=== PATIENT | male | born 1950 | race Native Hawaiian/Other Pacific Islander ===

== ENCOUNTER 2016-10-09 11:26 | Emergency (ER) | payer OTHER, MEDICARE, MEDICAID ==
[2016-10-09 11:27] VITALS: BMI 32.9
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
[2016-10-09] MEDS ORDERED: Albuterol-Ipratrop 3 mg / 0.5 (3 ml) UD IH STA ×2 (13:53→17:23)
[2016-10-09] MEDS ORDERED: Morphine 4 MG/ML VIAL ONE (14:04)
[2016-10-09] MEDS ORDERED: Albuterol-Ipratrop 3 mg / 0.5 (3 ml) UD ONE (14:07)
[2016-10-09] MEDS ORDERED: Ipratropium 0.02% Inhal Soln (0.5 mg/2.5 ml) UD IH ONE (14:08)
[2016-10-09] MEDS ORDERED: Albuterol 0.083% Inhal Sol (2.5 mg/3 mL) UD ONE (14:08)
[2016-10-09 14:24] LABS: BASO # 0.1 K/uL (0.0-0.2); BASO % 1.4 % (0.0-2.0); EOS # 2.4 K/uL (0.0-0.7); EOS % 23.3 % (0.0-4.0); HEMATOCRIT 32.1 % (35.0-51.0); LYMPH # 1.1 K/uL (1.0-4.3); LYMPH % 10.6 % (20.0-40.0); MEAN CELL VOLUME 96.5 fL (80.0-94.0); MEAN CORPUSCULAR HEMOGLOBIN 31.2 pg (27.0-31.0); MEAN CORPUSCULAR HGB CONC 32.4 g/dL (33.0-37.0); MEAN PLATELET VOLUME 8.7 fL (7.2-11.7); MONO # 0.6 K/uL (0.0-0.8); MONO % 5.4 % (0.0-10.0); PLATELET COUNT 139 K/uL (130-400); RED CELL DISTRIBUTION WIDTH 15.1 % (11.5-14.5); WHITE BLOOD COUNT 10.4 K/uL (4.8-10.8)
--- NOTE | 2016-10-09 14:26 | RAD ---
PROCEDURE: CHEST RADIOGRAPH, 1 VIEW HISTORY: SOB COMPARISON: 09/27/2016 FINDINGS: LUNGS: Mild interstitial changes. PLEURA: No pneumothorax or pleural fluid seen. CARDIOVASCULAR: Normal. OSSEOUS STRUCTURES: No significant abnormalities. VISUALIZED UPPER ABDOMEN: Normal. OTHER FINDINGS: None. IMPRESSION: Mild interstitial changes.
[2016-10-09 14:34] LABS: POTASSIUM 4.3 mmol/L (3.6-5.2)
[2016-10-09 14:36] LABS: ALB/GLOB RATIO 1.1 (1.0-2.1); BILIRUBIN,TOTAL 0.7 mg/dL (0.2-1.3)
[2016-10-09 14:48] LABS: TROPONIN I 0.023 ng/mL (0.00-0.120)
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
--- NOTE | 2016-10-09 15:06 | CT ---
PROCEDURE: CT Lumbar Spine without contrast HISTORY: [facility] COMPARISON: None. TECHNIQUE: Axial computed tomography images were obtained of the lumbar spine without the use of intravenous contrast. Coronal and sagittal reformatted images were created and reviewed. Radiation dose: Total exam DLP = 1788.65 mGy-cm. FINDINGS: VERTEBRAE: The current study reveals no acute compression fractures no retropulsed fragments. Vertebral bodies exhibit normal stature and alignment. Facets normally aligned. DISCS/SPINAL CANAL/NEURAL FORAMINA: Multilevel degenerative spondylosis is present. At the L5-S1 level, there is disc space narrowing more so along the posterior disc margin. Small osteophytic ridge disc bulge complex results in mild compression of the ventral surface of the thecal sac. The overall central canal is marginal to adequate. Facets are hypertrophic at this level. Proximal exit foramina are mildly narrowed the right more so than left. At the L4-L5 level, there is mild posterior disc space narrowing. Small central and bilateral disc ridge complex associate with a tiny calcification of the either the posterior annulus or posterior longitudinal ligament. Facets are hypertrophic and flavum are buckled. Mild central canal narrowing. The facets also compress the posterolateral borders of the thecal sac. The exit foramina are mildly narrowed bilaterally. At the L3-L4 level, mild posterior disc space narrowing. Minimal broad-based bulge of the posterior annulus. Facets are mildly hypertrophic. Central canal appears adequate. Exit foramina are adequate. Similar changes seen at the L2-L3 and L1-L2 levels. PARASPINAL SOFT TISSUES: Paraspinal soft tissues appear grossly unremarkable. OTHER FINDINGS: Note made of markedly distended urinary bladder with mild wall thickening likely due to muscular hypertrophy. Prostate gland measures approximately 4.1 cm in transverse dimension. Rule out bladder outlet obstruction. Extensive at vascular calcifications are noted. IMPRESSION: No acute compression fractures. Mild multilevel degenerative spondylosis as described. Marked distention of the urinary bladder; rule out bladder outlet obstruction. Extensive vascular calcifications.
[2016-10-09 15:23] LABS: EOSINOPHIL 21 % (0-4); NEUTROPHIL 67 % (50-75); TOTAL CELLS COUNTED 100
[2016-10-09] MEDS ORDERED: Lidocaine 5% Patch TD STA (15:32)
[2016-10-09 15:55] VITALS: RESP 18
[2016-10-09] MEDS ORDERED: Lidocaine 5% Patch TD ONE (16:32)
[2016-10-09 18:19] VITALS: PULSE 86; O2SAT 98
[2016-10-09 20:31] VITALS: BP 152/72; TEMP 98
== END 2016-10-09 20:31 ==
LOC: C.ER 11:26
DX: S16.1XXA Strain of muscle, fascia and tendon at neck level, initial encounter (principal); S33.5XXA Sprain of ligaments of lumbar spine, initial encounter; V89.2XXA Person injured in unspecified motor-vehicle accident, traffic, initial encounter; M79.632 Pain in left forearm; N18.6 End stage renal disease; Z99.2 Dependence on renal dialysis
CPT/HCPCS: 71010; 72125; 72131; 80053; 82553; 83880; 84484; 85025; 85610; 85730; 94640; 96374; 96375; 99285; J1885; J2270

== ENCOUNTER 2016-11-13 12:40 | Emergency (ER) | payer MEDICARE, MEDICAID ==
[2016-11-13 12:40] VITALS: BMI 32.9
[2016-11-13 14:30] LABS: BASO # 0.1 K/uL (0.0-0.2); EOS % 33.8 % (0.0-4.0); HEMATOCRIT 31.6 % (35.0-51.0); LYMPH # 0.9 K/uL (1.0-4.3); LYMPH % 10.5 % (20.0-40.0); MEAN CORPUSCULAR HEMOGLOBIN 31.3 pg (27.0-31.0); MEAN CORPUSCULAR HGB CONC 31.8 g/dL (33.0-37.0); MEAN PLATELET VOLUME 9.9 fL (7.2-11.7); MONO # 0.4 K/uL (0.0-0.8); MONO % 5.1 % (0.0-10.0); RED CELL DISTRIBUTION WIDTH 14.4 % (11.5-14.5); WHITE BLOOD COUNT 8.8 K/uL (4.8-10.8)
[2016-11-13] MEDS ORDERED: Hydrocortisone 1% Cream (30 GM) TOP STA (14:33)
[2016-11-13 14:37] LABS: POTASSIUM 4.9 mmol/L (3.6-5.2)
[2016-11-13 14:39] LABS: MEAN CELL VOLUME 98.5 fL (80.0-94.0); PLATELET COUNT 79 K/uL (130-400)
[2016-11-13 14:40] LABS: ALB/GLOB RATIO 1.2 (1.0-2.1); BILIRUBIN,TOTAL 0.7 mg/dL (0.2-1.3); TOTAL PROTEIN 7.1 g/dL (6.3-8.3)
[2016-11-13 14:41] LABS: CALCIUM 8.7 mg/dl (8.6-10.4)
[2016-11-13 14:53] LABS: TROPONIN I 0.022 ng/mL (0.00-0.120)
--- NOTE | 2016-11-13 15:52 | RAD ---
HISTORY: AMS? COMPARISON: 10/09/2016 FINDINGS: LUNGS: Hazy opacity in the lung bases. Increased pulmonary vascular congestion. PLEURA: Possible small left-sided pleural effusion. CARDIOVASCULAR: Enlarged heart. OSSEOUS STRUCTURES: The osseous structures demonstrate degenerative changes. VISUALIZED UPPER ABDOMEN: Upper abdomen is suboptimally evaluated. OTHER FINDINGS: Presumed vascular stent in the left axilla. Midline sternotomy wires and surgical clips along the left heart border noted. IMPRESSION: Increased pulmonary vascular congestion. Possible left-sided pleural effusion. Enlarged heart.
--- NOTE | 2016-11-13 16:38 | C.PDOC ---
History Of Present Illness Pt was sent to the ED due to "altered mental status". Pt states that he was c/o itchy back and states they gave him Benadryl which made him sleepy. Pt states he was sleeping when they said that they wanted to send him here. Time Seen by Provider: 11/13/16 13:45 Chief Complaint (Nursing): Altered Mental Status History Per: Patient, EMS, Other (NH papers) Onset/Duration Of Symptoms: Hrs Current Symptoms Are (Timing): Better Severity: Moderate Additional History Per: Prior Records Past Medical History Reviewed: Historical Data, Nursing Documentation, Vital Signs Vital Signs: Last Vital Signs Temp 97.7 F 11/13/16 13:07 Pulse 74 11/13/16 13:07 Resp 18 11/13/16 13:07 BP 174/75 H 11/13/16 13:07 Pulse Ox 98 11/13/16 16:45 - Medical History PMH: Anemia, Asthma, CVA (affecting left side), Depression ('MAJOR DEPRESSIVE DISORDER,SINGLE EPISODE,UNSPECIFIED"), HTN, Peripheral Edema, End Stage Renal Disease (on hemodialysis), Chronic Kidney Disease, Sleep Apnea Surgical History: CABG, Endoscopy - [facility] Procedures DIALYSIS ARTERIOVENOSTOM (10/07/14) EXCISION OF SIGMOID COLON, ENDO, DIAGN (09/26/16) INCIS W REM OF FORIEGN BODY OR DEV FROM SKIN & SUBCUT TISSUE (12/23/14) Family History: States: Unknown Family Hx - Social History Hx Alcohol Use: No Hx Substance Use: No - Immunization History Hx Influenza Vaccination: No Hx Pneumococcal Vaccination: Yes Review Of Systems Except As Marked, All Systems Reviewed And Found Negative. Constitutional: Negative for: Fever Cardiovascular: Negative for: Chest Pain Respiratory: Negative for: Shortness of Breath Gastrointestinal: Negative for: Vomiting, Abdominal Pain Musculoskeletal: Positive for: Back Pain. Negative for: Neck Pain Neurological: Negative for: Weakness, Numbness Physical Exam - Physical Exam Appears: No Acute Distress, Chronically Ill Skin: Normal Color, Warm, Dry Head: Atraumatic, Normacephalic Eye(s): bilateral: PERRL, EOMI Neck: Normal ROM, Supple Cardiovascular: Rhythm Regular Respiratory: Normal Breath Sounds, No Accessory Muscle Use Gastrointestinal/Abdominal: Soft, No Tenderness Back: Other (Stage 1 sacral decubitus ulcer. ) Extremity: Pedal Edema, Other (dialysis fistula on left arm with good thrill) Neurological/Psych: Oriented x3, No Normal Motor (left sided weakness due to old CVA) ED Course And Treatment - Laboratory Results Result Diagrams: 11/13/16 14:24 11/13/16 14:24 Lab Interpretation: No Changes Compared To Prior Results ECG: Interpreted By Me, Viewed By Me ECG Rhythm: Sinus Rhythm, R BBB, Nonspecific Changes ECG Interpretation: No Changes From Prior Rate From EC O2 Sat by Pulse Oximetry: 98 (on 2L NC) Pulse Ox Interpretation: Normal Interpretation Of Abnormal: Pt is on [place] O2 at [place] - Radiology CXR: Viewed By Me, Read By Radiologist CXR Interpretation: Yes: Cardiomegaly Progress Note: Pt states that his right upper back is itchy. No rash noted there. I scratched his back and applied hydrocortizone cream with relief. Pt was also turned with relief of back pain which is due to the sacral decub. Reassessment Condition: Improved Disposition Discussed With Dr.: Theodore Lucas Comment: He wants pt to be discharged back to the longterm. Counseled Patient/Family Regarding: Studies Performed, Diagnosis, Need For Followup, Rx Given - Disposition Referrals: Theodore Lucas MD [Staff Provider] - Disposition: TRANSF TO SNF Disposition Time: 16:42 Condition: IMPROVED Additional Instructions: Follow up with your doctor. Go to dialysis tomorrow as usual. Return to the ER if you develop worsening of symptoms or if you have any other concerns. Prescriptions: Hydrocortisone 1% Cream [Cortizone 1% Cream] 1 applic TOP BID PRN #1 tube PRN Reason: Itching / Pruritus Instructions: Itchy Skin (ED), Pressure Ulcer (ED) - POA Present On Arrival: Pressure Ulcer - Clinical Impression Clinical Impression: Itch of skin, Decubitus ulcer of sacral region, stage 1
[2016-11-13 17:16] VITALS: O2SAT 100
[2016-11-13 19:33] VITALS: BP 163/48; PULSE 88; RESP 20; TEMP 97.7
[2016-11-13 20:09] LABS: EOSINOPHIL 42 % (0-4); NEUTROPHIL 36 % (50-75); TOTAL CELLS COUNTED 100
[2016-11-13 20:10] LABS: LARGE PLATELETS PRESENT; SMUDGE CELLS PRESENT
--- NOTE | 2016-11-16 18:37 | CARD ---
APPROVED REPORT EKG Measurement Heart [id number] SC [id number] <Conclusion> Normal sinus rhythm Left axis deviation Right bundle branch block Inferior infarct, age undetermined Abnormal ECG
== END 2016-11-13 19:32 ==
LOC: C.ER 12:40
DX: L89.151 Pressure ulcer of sacral region, stage 1 (principal); L29.9 Pruritus, unspecified; I12.0 Hypertensive chronic kidney disease with stage 5 chronic kidney disease or end stage renal disease; N18.6 End stage renal disease; Z99.2 Dependence on renal dialysis

== ENCOUNTER 2016-11-15 17:15 | Emergency (ER) | payer MEDICARE, MEDICAID ==
[2016-11-15 17:15] VITALS: BMI 32.9
[2016-11-15 17:31] VITALS: TEMP 97.6
--- NOTE | 2016-11-15 18:03 | C.PDOC ---
History Of Present Illness 66-year-old male, PMHx includes CVA (w/ L residual weakness), Hypertension, Hypercholesterolemia and ESRD (on Dialysis MWF), presents to the emergency department from halfway, accompanied by , who is acting as historian, with complaints of headache. Patient has been experiencing a severe headache since yesterday. He gets headaches at [place], that are treated with Tramadol, but patients headache is now localized, to frontal area w/ no associated symptoms. No fever or neck pain. Patient with muscular pain in shoulder, and pain in suprapubic region that radiates to back. Patients last dialysis yesterday, which was completed without complications. Upon arrival to the ED, patient had a bladder scan, that revealed 600mL of urine. All other Hx limited because patient is a poor historian. Time Seen by Provider: 11/15/16 17:40 Chief Complaint (Nursing): Headache History Per: Family History/Exam Limitations: clinical condition Onset/Duration Of Symptoms: Days Current Symptoms Are (Timing): Still Present Severity: Severe Past Medical History Reviewed: Historical Data, Nursing Documentation, Vital Signs Vital Signs: Last Vital Signs Temp 97.6 F 11/15/16 17:30 Pulse 72 11/15/16 19:52 Resp 15 11/15/16 19:52 BP 160/50 H 11/15/16 19:52 Pulse Ox 97 11/15/16 20:32 - Medical History PMH: Anemia, Asthma, CVA (affecting left side), Depression ('MAJOR DEPRESSIVE DISORDER,SINGLE EPISODE,UNSPECIFIED"), HTN, Peripheral Edema, End Stage Renal Disease (on hemodialysis), Chronic Kidney Disease, Sleep Apnea Surgical History: CABG, Endoscopy - [facility] Procedures DIALYSIS ARTERIOVENOSTOM (10/07/14) EXCISION OF SIGMOID COLON, ENDO, DIAGN (09/26/16) INCIS W REM OF FORIEGN BODY OR DEV FROM SKIN & SUBCUT TISSUE (12/23/14) Family History: States: Unknown Family Hx - Social History Hx Alcohol Use: No Hx Substance Use: No - Immunization History Hx Influenza Vaccination: No Hx Pneumococcal Vaccination: Yes Review Of Systems Cardiovascular: Negative for: Chest Pain Respiratory: Negative for: Cough Gastrointestinal: Negative for: Vomiting Musculoskeletal: Positive for: Back Pain Skin: Negative for: Rash Neurological: Positive for: Headache. Negative for: Weakness, Numbness Physical Exam - Physical Exam Appears: Non-toxic, No Acute Distress, Other (non ambulatory at baseline) Skin: Warm, Dry, No Rash Head: Atraumatic, Normacephalic Eye(s): bilateral: Normal Inspection, PERRL Nose: Normal Oral Mucosa: Moist Chest: Symmetrical Cardiovascular: Rhythm Regular Respiratory: Normal Breath Sounds, No Accessory Muscle Use Gastrointestinal/Abdominal: Tenderness (midline), Distention (mild. ) Extremity: Normal ROM Neurological/Psych: Oriented x3, Normal Speech, Other (residual left sided weakness from prior CVA) ED Course And Treatment - Laboratory Results Result Diagrams: 11/15/16 18:24 11/15/16 18:24 Lab Interpretation: No Acute Changes (Anemia and increased BUN and Cr consistent with renal failure. Urine shows WBC 7 with 1+ leukocyte esterase.) O2 Sat by Pulse Oximetry: 97 Pulse Ox Interpretation: Normal - CT Scan/US Head Other Rad Studies (CT/US): Read By Radiologist, Radiology Report Reviewed CT/US Interpretation: Accession No. : [id number]. Patient Name / ID : TIERNEY LEVIN / [id number]. Exam Date : 11/15/2016 18:55:23 ( Approved ). Study Comment : Sex / Age : M / 66Y. Creator : Pooja Carmona MD. Dictator : Pooja Carmona MD. Lead Laying And Gluing Machine Operator : Terminal Computer Operator : Pooja Carmona MD. Approver2 : Report Date : 11/15/2016 18:59:57. My Comment : . PROCEDURE: CT HEAD WITHOUT CONTRAST. HISTORY: R/O Bleed. COMPARISON: None available. TECHNIQUE: Axial computed tomography images were obtained through the head/brain without intravenous contrast. Radiation dose: Total exam DLP = 899.13 mGy-cm. This CT exam was performed using one or more of the following dose reduction techniques: Automated exposure control, adjustment of the mA and/or kV according to patient size, and/or use of iterative reconstruction technique. FINDINGS: Streak artifact obscures evaluation of the skullbase. HEMORRHAGE: No intracranial hemorrhage. BRAIN: Diffuse atrophy with prominence of the ventricles and sulci noted. No mass effect or edema. Dense intracranial atherosclerotic calcifications. Scattered white matter hypodensities, which are nonspecific, but often seen with chronic microvascular ischemic disease. Please note that MRI with diffusion imaging is more sensitive in the detection of acute ischemic event. VENTRICLES: No hydrocephalus. CALVARIUM: Unremarkable. PARANASAL SINUSES: Mucosal thickening of the ethmoid air cells. Partial opacification of the left sphenoid sinus. MASTOID AIR CELLS: Unremarkable as visualized. No inflammatory changes. OTHER FINDINGS: None. IMPRESSION: Streak artifact obscures evaluation of the skullbase. Generalized atrophy. Nonspecific white matter changes. Mucosal thickening of the ethmoid air cells. Partial opacification of the left sphenoid sinus. Correlate clinically for sinusitis. Reevaluation Time: 20:32 Reassessment Condition: Improved (Headache resolved) - Physician Consult Information Time Consulting Physician Contacted: 20:32 Physician Contacted: Theodore Lucas Outcome Of Conversation: He will follow up with patient in the halfway to treat possible UTI. Disposition - Disposition Disposition: TRANSF TO SNF Disposition Time: 20:43 Condition: IMPROVED Instructions: Acute Headache (ED), Urinary Retention in Men (ED) - Clinical Impression Clinical Impression: Headache, Urinary retention, UTI (urinary tract infection) - Scribe Statement The provider has reviewed the documentation as recorded by the Pavel Arciniega All medical record entries made by the Ileanaibnancy were at my direction and personally dictated by me. I have reviewed the chart and agree that the record accurately reflects my personal performance of the history, physical exam, medical decision making, and the department course for this patient. I have also personally directed, reviewed, and agree with the discharge instructions and disposition.
[2016-11-15 18:29] LABS: BASO # 0.1 K/uL (0.0-0.2); BASO % 0.9 % (0.0-2.0); EOS # 2.6 K/uL (0.0-0.7); EOS % 29.5 % (0.0-4.0); HEMATOCRIT 30.9 % (35.0-51.0); LYMPH # 0.9 K/uL (1.0-4.3); LYMPH % 9.8 % (20.0-40.0); MEAN CELL VOLUME 97.9 fL (80.0-94.0); MEAN CORPUSCULAR HEMOGLOBIN 31.8 pg (27.0-31.0); MEAN CORPUSCULAR HGB CONC 32.5 g/dL (33.0-37.0); MEAN PLATELET VOLUME 9.8 fL (7.2-11.7); MONO # 0.4 K/uL (0.0-0.8); MONO % 4.8 % (0.0-10.0); PLATELET COUNT 88 K/uL (130-400); RED CELL DISTRIBUTION WIDTH 14.3 % (11.5-14.5); WHITE BLOOD COUNT 8.8 K/uL (4.8-10.8)
[2016-11-15 18:39] LABS: POTASSIUM 4.5 mmol/L (3.6-5.2)
[2016-11-15 18:42] LABS: RBC URINE 1 /hpf (0-3); URINE BACTERIA RARE (<OCC); URINE BILIRUBIN NEGATIVE (NEGATIVE); URINE BLOOD NEGATIVE (NEGATIVE); URINE COLOR Yellow (YELLOW); URINE GLUCOSE (UA) 3+ mg/dL (Normal); URINE KETONE NEGATIVE (NEGATIVE); URINE PROTEIN 3+ mg/dL (NEGATIVE); URINE UROBILINOGEN NORMAL mg/dL (0.2-1.0); WBC URINE 7 /hpf (0-5)
[2016-11-15 18:42] LABS: ALB/GLOB RATIO 1.2 (1.0-2.1); BILIRUBIN,TOTAL 0.6 mg/dL (0.2-1.3); CALCIUM 9.1 mg/dl (8.6-10.4); TOTAL PROTEIN 7.2 g/dL (6.3-8.3)
[2016-11-15 18:46] LABS: URINE LEUKOCYTE ESTERASE 1+ Leu/uL (Negative)
--- NOTE | 2016-11-15 19:01 | CT ---
PROCEDURE: CT HEAD WITHOUT CONTRAST. HISTORY: R/O Bleed COMPARISON: None available. TECHNIQUE: Axial computed tomography images were obtained through the head/brain without intravenous contrast. Radiation dose: Total exam DLP = 899.13 mGy-cm. This CT exam was performed using one or more of the following dose reduction techniques: Automated exposure control, adjustment of the mA and/or kV according to patient size, and/or use of iterative reconstruction technique. FINDINGS: Streak artifact obscures evaluation of the skullbase. HEMORRHAGE: No intracranial hemorrhage. BRAIN: Diffuse atrophy with prominence of the ventricles and sulci noted. No mass effect or edema. Dense intracranial atherosclerotic calcifications. Scattered white matter hypodensities, which are nonspecific, but often seen with chronic microvascular ischemic disease. Please note that MRI with diffusion imaging is more sensitive in the detection of acute ischemic event. VENTRICLES: No hydrocephalus. CALVARIUM: Unremarkable. PARANASAL SINUSES: Mucosal thickening of the ethmoid air cells. Partial opacification of the left sphenoid sinus. MASTOID AIR CELLS: Unremarkable as visualized. No inflammatory changes. OTHER FINDINGS: None. IMPRESSION: Streak artifact obscures evaluation of the skullbase. Generalized atrophy. Nonspecific white matter changes. Mucosal thickening of the ethmoid air cells. Partial opacification of the left sphenoid sinus. Correlate clinically for sinusitis.
[2016-11-15 19:09] LABS: BASOPHIL 1 % (0-2); EOSINOPHIL 25 % (0-4); NEUTROPHIL 58 % (50-75); TOTAL CELLS COUNTED 100
[2016-11-15 19:54] VITALS: RESP 15
[2016-11-15 22:48] VITALS: BP 156/58; PULSE 70; O2SAT 95
== END 2016-11-15 22:48 ==
LOC: C.ER 17:15
DX: R51 Headache (principal); R33.9 Retention of urine, unspecified; N39.0 Urinary tract infection, site not specified
CPT/HCPCS: 51701; 70450; 80053; 81001; 82948; 85025; 87086; 96374; 99285; J2270

== ENCOUNTER 2016-12-08 20:28 | Emergency (ER) | payer MEDICARE, MEDICAID ==
[2016-12-08 20:30] VITALS: BMI 32.9
--- NOTE | 2016-12-08 20:43 | C.PDOC ---
History Of Present Illness Patient was brought to ER via EMS from alf for a complaint of pain of the meatus that has been worsening over the past couple of days. Patient has a fernandez catheter in place for urinary retention. Patient also has dialysis every sunday, sunday, and sunday. Denies fever, chills, nausea, or vomiting. Time Seen by Provider: 12/08/16 20:42 Chief Complaint (Nursing): Male Genitourinary History Per: Patient History/Exam Limitations: no limitations Onset/Duration Of Symptoms: Days (Worsening) Current Symptoms Are (Timing): Still Present Severity: Moderate Pain Scale Rating Of: 4 Quality Of Discomfort: Unable To Describe Associated Symptoms: denies: Fever, Chills, Nausea, Vomiting Alleviating Factors: None Recent travel outside of the [place]: No Additional History Per: Care Home Past Medical History Reviewed: Historical Data, Nursing Documentation, Vital Signs Vital Signs: Last Vital Signs Temp 98.7 F 12/08/16 21:58 Pulse 83 12/08/16 20:40 Resp 20 12/08/16 20:40 BP 144/76 12/08/16 20:40 Pulse Ox 95 12/08/16 20:40 - Medical History PMH: Anemia, Asthma, CVA (affecting left side), Depression ('MAJOR DEPRESSIVE DISORDER,SINGLE EPISODE,UNSPECIFIED"), HTN, Peripheral Edema, End Stage Renal Disease (on hemodialysis), Chronic Kidney Disease, Sleep Apnea Surgical History: CABG, Endoscopy - [facility] Procedures DIALYSIS ARTERIOVENOSTOM (10/07/14) EXCISION OF SIGMOID COLON, ENDO, DIAGN (09/26/16) INCIS W REM OF FORIEGN BODY OR DEV FROM SKIN & SUBCUT TISSUE (12/23/14) Family History: States: No Known Family Hx - Social History Hx Alcohol Use: No Hx Substance Use: No - Immunization History Hx Influenza Vaccination: No Hx Pneumococcal Vaccination: Yes Review Of Systems Constitutional: Negative for: Fever, Chills Gastrointestinal: Negative for: Nausea, Vomiting Genitourinary: Positive for: Penile Pain (Meatus) Physical Exam - Physical Exam Appears: Non-toxic Skin: Warm, Dry Oral Mucosa: Moist Chest: Symmetrical, No Tenderness Cardiovascular: Rhythm Regular, No Murmur Respiratory: No Rales, No Rhonchi, No Wheezing Gastrointestinal/Abdominal: Soft, No Tenderness Male Genital: Circumcised (Fernandez catheter in place. Hypospadia.), Other Extremity: Other (Left arm AV shunt with good thrill and bruit.) Neurological/Psych: Oriented x3, Other (Left sided hemiplegia from old CVA) ED Course And Treatment - Laboratory Results Result Diagrams: 12/08/16 21:13 12/08/16 21:13 Progress Note: Blood work and urinalysis ordered. Zofran and morphine administered. pt 's pain resolved after fernandez was removed. Called NH - fernandez was placed on 11/29/16 Reevaluation Time: 22:15 Reassessment Condition: Improved Medical Decision Making Medical Decision Making: Upon provider reevaluation patient is feeling better, is medically stable, and requires no further treatment in the ED at this time. Patient will be discharged . Counseling was provided and all questions were answered regarding diagnosis and need for follow up with Dr Lucas. There is agreement to discharge plan. Return if symptoms persist or worsen. Disposition Counseled Patient/Family Regarding: Studies Performed, Diagnosis, Need For Followup - Disposition Referrals: Theodore Lucas MD [Staff Provider] - Disposition: HOME/ ROUTINE Disposition Time: 20:43 Condition: FAIR Instructions: Urinary Retention in Men (ED) - Clinical Impression Clinical Impression: Fernandez catheter problem - Scribe Statement The provider has reviewed the documentation as recorded by the Scribnancy Dawson All medical record entries made by the Scribe were at my direction and personally dictated by me. I have reviewed the chart and agree that the record accurately reflects my personal performance of the history, physical exam, medical decision making, and the department course for this patient. I have also personally directed, reviewed, and agree with the discharge instructions and disposition.
[2016-12-08 20:46] VITALS: RESP 20
[2016-12-08] MEDS ORDERED: Morphine 4 MG/ML VIAL IV ONE (20:55)
[2016-12-08] MEDS ORDERED: Morphine 4 MG/ML VIAL ONE ×2 (21:04→23:00)
[2016-12-08 21:17] LABS: BASO # 0.1 K/uL (0.0-0.2); BASO % 0.6 % (0.0-2.0); EOS # 1.1 K/uL (0.0-0.7); EOS % 10.7 % (0.0-4.0); HEMATOCRIT 26.8 % (35.0-51.0); LYMPH # 0.9 K/uL (1.0-4.3); LYMPH % 8.5 % (20.0-40.0); MEAN CELL VOLUME 99.8 fL (80.0-94.0); MEAN CORPUSCULAR HEMOGLOBIN 32.2 pg (27.0-31.0); MEAN CORPUSCULAR HGB CONC 32.3 g/dL (33.0-37.0); MEAN PLATELET VOLUME 9.5 fL (7.2-11.7); MONO # 0.8 K/uL (0.0-0.8); MONO % 7.7 % (0.0-10.0); PLATELET COUNT 132 K/uL (130-400); RED CELL DISTRIBUTION WIDTH 14.7 % (11.5-14.5); WHITE BLOOD COUNT 10.7 K/uL (4.8-10.8)
[2016-12-08] MEDS ORDERED: Albuterol-Ipratrop 3 mg / 0.5 (3 ml) UD INH STA (21:18)
[2016-12-08] MEDS ORDERED: Albuterol-Ipratrop 3 mg / 0.5 (3 ml) UD ONE (21:22)
[2016-12-08 21:25] LABS: INR 1.1
[2016-12-08 21:33] LABS: POTASSIUM 4.5 mmol/L (3.6-5.2)
[2016-12-08 21:36] LABS: ALB/GLOB RATIO 1.1 (1.0-2.1); BILIRUBIN,TOTAL 0.7 mg/dL (0.2-1.3); TOTAL PROTEIN 6.8 g/dL (6.3-8.3)
[2016-12-08 21:37] LABS: CALCIUM 8.4 mg/dl (8.6-10.4)
[2016-12-08 21:59] VITALS: TEMP 98.7
[2016-12-08 22:11] LABS: EOSINOPHIL 10 % (0-4); NEUTROPHIL 77 % (50-75); TOTAL CELLS COUNTED 100
[2016-12-09 01:52] VITALS: BP 143/98; PULSE 64; O2SAT 96
== END 2016-12-09 01:51 | disposition home or self-care (01) ==
LOC: C.ER 20:28
DX: T83.84XA Pain due to genitourinary prosthetic devices, implants and grafts, initial encounter (principal); R33.9 Retention of urine, unspecified
CPT/HCPCS: 80053; 85025; 85610; 85730; 96374; 96375; 96376; 99284; J2270; J2405

== ENCOUNTER 2016-12-25 07:23 | Emergency (ER) | payer MEDICARE, MEDICAID ==
[2016-12-25 07:24] VITALS: BMI 32.9
[2016-12-25 07:29] VITALS: TEMP 97.8
[2016-12-25] MEDS ORDERED: Sodium Chloride 0.9% 1,000 ML IV ONE (08:04)
[2016-12-25] MEDS ORDERED: Sodium Chloride 0.9% 1,000 ML ONE (08:20)
[2016-12-25 08:22] LABS: BASO # 0.1 K/uL (0.0-0.2); MONO # 0.7 K/uL (0.0-0.8); NRBC % 0.1 % (0.0-2.0)
[2016-12-25 08:26] LABS: BASO % 1.3 % (0.0-2.0); EOS # 1.2 K/uL (0.0-0.7); EOS % 22.4 % (0.0-4.0); HEMATOCRIT 29.7 % (35.0-51.0); LYMPH # 0.8 K/uL (1.0-4.3); LYMPH % 14.1 % (20.0-40.0); MEAN CORPUSCULAR HEMOGLOBIN 31.4 pg (27.0-31.0); MEAN CORPUSCULAR HGB CONC 32.3 g/dL (33.0-37.0); MEAN PLATELET VOLUME 8.3 fL (7.2-11.7); RED CELL DISTRIBUTION WIDTH 13.8 % (11.5-14.5); WHITE BLOOD COUNT 5.4 K/uL (4.8-10.8)
[2016-12-25 08:27] LABS: MEAN CELL VOLUME 97.4 fL (80.0-94.0); PLATELET COUNT 100 K/uL (130-400)
[2016-12-25 08:37] LABS: POTASSIUM 4.6 mmol/L (3.6-5.2)
[2016-12-25 08:39] LABS: BILIRUBIN,TOTAL 0.5 mg/dL (0.2-1.3)
[2016-12-25 08:40] LABS: CALCIUM 8.9 mg/dl (8.6-10.4)
[2016-12-25 08:55] LABS: NEUTROPHIL 46 % (50-75); TOTAL CELLS COUNTED 100
[2016-12-25 08:56] LABS: EOSINOPHIL 20 % (0-4)
[2016-12-25 08:57] LABS: LARGE PLATELETS PRESENT
[2016-12-25 09:09] LABS: PROSTATE SPECIFIC ANTIGEN 0.64 ng/mL (0.00-4.0)
[2016-12-25 10:55] VITALS: O2SAT 99
--- NOTE | 2016-12-25 11:28 | C.PDOC ---
History Of Present Illness <Cornelia Campos - Last Filed: 12/25/16 14:01> <Liyah Parker - Last Filed: 12/27/16 14:01> The patient, a 66 y/o male whose past medical history includes ESRD, presents to the emergency department from [facility] via ambulance for evaluation of dysuria, purulent penile discharge with odor and urinary retention which began around 2 weeks ago. Patient notes he had a catheter placed and has been applying topical ointment without relief. Patient denies fever, chills, abdominal pain, nausea, vomiting. (Cornelia Campos) History Per: Patient, EMS History/Exam Limitations: no limitations Onset/Duration Of Symptoms: Other (2 weeks ) Current Symptoms Are (Timing): Still Present Quality Of Discomfort: "Pain" Associated Symptoms: Urinary Symptoms (+dysuria ). denies: Fever, Chills, Nausea, Vomiting, Diarrhea Recent travel outside of the [place]: No Additional History Per: Patient, Assisted <Cornelia Campos - Last Filed: 12/25/16 14:01> <Liyah Parker - Last Filed: 12/27/16 14:01> Time Seen by Provider: 12/25/16 07:57 Chief Complaint (Nursing): Male Genitourinary Past Medical History Reviewed: Historical Data, Nursing Documentation, Vital Signs - Medical History PMH: Anemia, Asthma, CVA (affecting left side), Depression ('MAJOR DEPRESSIVE DISORDER,SINGLE EPISODE,UNSPECIFIED"), HTN, Peripheral Edema, End Stage Renal Disease (on hemodialysis), Chronic Kidney Disease, Sleep Apnea Surgical History: CABG, Endoscopy Family History: States: Unknown Family Hx - Social History Hx Alcohol Use: No Hx Substance Use: No - Immunization History Hx Influenza Vaccination: No Hx Pneumococcal Vaccination: Yes <Cornelia Campos - Last Filed: 12/25/16 14:01> Review Of Systems Except As Marked, All Systems Reviewed And Found Negative. Constitutional: Negative for: Fever, Chills Gastrointestinal: Negative for: Nausea, Vomiting, Abdominal Pain Genitourinary: Positive for: Dysuria, Penile Discharge (purulent, with odor ), Other (+urinary retention ) <Cornelia Campos - Last Filed: 12/25/16 14:01> Physical Exam - Physical Exam Appears: Non-toxic, No Acute Distress Skin: Normal Color, Warm, Dry Head: Atraumatic, Normacephalic Eye(s): bilateral: Normal Inspection Oral Mucosa: Moist Neck: Supple Chest: Symmetrical, No Deformity, No Tenderness Cardiovascular: Rhythm Regular, No Murmur Respiratory: Normal Breath Sounds, No Rales, No Rhonchi, No Wheezing Gastrointestinal/Abdominal: Tenderness (mild, suprapubic ), No Guarding, No Rebound Back: Normal Inspection, No Vertebral Tenderness, No Paraspinal Tenderness Male Genital: Other (+tenderness to meatus of penis with erythema and purulent discharge ) Extremity: Normal ROM, Capillary Refill (less than 2 seconds ), Other (+ contracture of left upper extremity ) Neurological/Psych: Oriented x3, Normal Speech, Normal Cognition Gait: Steady <Cornelia Campos - Last Filed: 12/25/16 14:01> ED Course And Treatment - Laboratory Results Result Diagrams: 12/25/16 08:18 12/25/16 08:18 O2 Sat by Pulse Oximetry: 99 (on RA) Pulse Ox Interpretation: Normal Progress Note: labs ordered and reviewed. Pt received Albuerol IH, Cleocin PO, Morphine IV, Zofran IV, and IV Fluids. 11:28 Patient was evaluated by Dr. Hernández who ordered a bladder scan. Scan shows around 300cc of urine. Patient informed Dr. Hernández that he prefers not to undergo catherterization, as this has not helped him in the past. Dr. Hernández advises to prescribe Flomax, Keflex and Neosporin TOP and discharge with instructions to follow up with him in office for further evaluation. Also advised to contact patient's PMD, Dr. Lucas. 11:[address] Lucas, agrees with plan to discharge patient with instructions to f/u with Dr. Hernández in office. <Cornelia Campos - Last Filed: 12/25/16 14:01> - Laboratory Results Result Diagrams: 12/25/16 08:18 12/25/16 08:18 <Liyah Parker - Last Filed: 12/27/16 14:01> Disposition - Disposition Disposition Time: 11:26 <Cornelia Campos - Last Filed: 12/25/16 14:01> <Liyah Parker - Last Filed: 12/27/16 14:01> - Disposition Referrals: Theodore Lucas MD [Staff Provider] - Patricia Hernández MD [Staff Provider] - Disposition: HOME/ ROUTINE Condition: STABLE Additional Instructions: Follow up with your primary medical doctor or clinic in 2-5 days for further evaluation. Take medications as prescribed. Return to the emergency department at any time if symptoms persist or worsen. Prescriptions: Bacitracin/Neomycin/Polymyxin [Triple Antibiotic] 1 oin TP BID #1 tube Clindamycin [Cleocin] 300 mg PO Q6 #28 cap Tamsulosin [Flomax] 0.4 mg PO DAILY #10 cap Instructions: Urinary Retention in Men (ED) - Clinical Impression Clinical Impression: Cellulitis - PA / COURT REGISTRY OFFICER / Resident Statement MD/DO has reviewed & agrees with the documentation as recorded. - Scribe Statement The provider has reviewed the documentation as recorded by the Scribe (Taniya Mathis) <Cornelia Campos - Last Filed: 12/25/16 14:01> <Liyah Parker - Last Filed: 12/27/16 14:01> - Scribe Statement All medical record entries made by the Scribe were at my direction and personally dictated by me. I have reviewed the chart and agree that the record accurately reflects my personal performance of the history, physical exam, medical decision making, and the department course for this patient. I have also personally directed, reviewed, and agree with the discharge instructions and disposition. (Cornelia Campos) Addendum <Cornelia Campos - Last Filed: 12/25/16 14:01> <Liyah Parker - Last Filed: 12/27/16 14:01> Addendum: 12/27/16 13:59 Penis culture results discussed with Dr Lucas who will order appropriate antibiotic coverage (Liyah Parker)
--- NOTE | 2016-12-25 11:43 | CP.PCM.CON ---
Past Patient History - Infectious Disease Hx of Infectious Diseases: None - Past Medical History & Family History Past Medical History?: Yes - Past Social History Smoking Status: Former Smoker - CARDIAC Hx Hypertension: Yes Hx Peripheral Edema: Yes - PULMONARY Hx Asthma: Yes Hx Sleep Apnea: Yes - NEUROLOGICAL Hx Neurological Disorder: Yes HX Cerebrovascular Accident: Yes (LT SIDE WEAKNESS) - HEENT Hx HEENT Problems: Yes Hx Cataracts: Yes - RENAL Hx Chronic Kidney Disease: Yes - ENDOCRINE/METABOLIC Hx Diabetes Mellitus Type 1: Yes Hx Diabetes Mellitus Type 2: Yes - HEMATOLOGICAL/ONCOLOGICAL Hx Anemia: Yes - INTEGUMENTARY Hx Dermatological Problems: No Other/Comment: healed sacral ulcer - MUSCULOSKELETAL/RHEUMATOLOGICAL Hx Musculoskeletal Disorders: Yes Hx Falls: Yes Hx Unsteady Gait: Yes Other/Comment: HX: MUSCLE WEAKNESS(GENERALIZED), Left sided body weakness due to CVA - GASTROINTESTINAL Hx Gastrointestinal Disorders: Yes Other/Comment: HX: DYSPHAGIA,UNSPECIFIED - GENITOURINARY/GYNECOLOGICAL Hx Genitourinary Disorders: No - PSYCHIATRIC Hx Depression: Yes ('MAJOR DEPRESSIVE DISORDER,SINGLE EPISODE,UNSPECIFIED") Hx Substance Use: No - SURGICAL HISTORY Hx Coronary Artery Bypass Graft: Yes - ANESTHESIA Hx Anesthesia: Yes Hx Anesthesia Reactions: No Hx Malignant Hyperthermia: No Meds Allergies/Adverse Reactions: Allergies Allergy/AdvReac Type Severity Reaction Status Date / Time iodine Allergy Intermediate RASH Verified 12/25/16 07:29 aspirin Allergy Verified 12/25/16 07:29 clopidogrel bisulfate Allergy UNKNOWN Verified 12/25/16 07:29 [From Plavix] Penicillins Allergy UNKNOWN Verified 12/25/16 07:29 IV DYE Allergy Uncoded 12/25/16 07:29 - Medications Medications: Current Medications Sodium Chloride (Sodium Chloride 0.9%) 1,000 mls @ 100 mls/hr IV .Q10H ONE Stop: 12/25/16 18:03 Last Admin: 12/25/16 08:35 Dose: 100 mls/hr Results - Vital Signs Recent Vital Signs: Last Vital Signs Temp 97.8 F 12/25/16 07:25 Pulse 73 12/25/16 10:50 Resp 14 12/25/16 10:50 BP 134/38 L 12/25/16 10:50 Pulse Ox 99 12/25/16 11:28 - Labs Result Diagrams: 12/25/16 08:18 12/25/16 08:18 Labs: Laboratory Results - last 24 hr 12/25/16 12/25/16 08:18 08:18 WBC 5.4 RBC 3.05 L Hgb 9.6 L Hct 29.7 L MCV 97.4 H D MCH 31.4 H MCHC 32.3 L RDW 13.8 Plt Count 100 L D MPV 8.3 Neut % (Auto) 49.2 L Lymph % (Auto) 14.1 L [place] % (Auto) 13.0 H Eos % (Auto) 22.4 H Baso % (Auto) 1.3 Neut # 2.7 Lymph # 0.8 L [place] # 0.7 Eos # 1.2 H Baso # 0.1 Neutrophils % (Manual) 46 L Lymphocytes % (Manual) 17 L Monocytes % (Manual) 17 H Eosinophils % (Manual) 20 H Platelet Estimate Decreased L Large Platelets Present Polychromasia Slight Hypochromasia (manual) Slight Poikilocytosis (manual Slight Anisocytosis (manual) Slight Target Cells Slight Sodium 136 Potassium 4.6 Chloride 95 L Carbon Dioxide 29 Anion Gap 17 BUN 41 H Creatinine 5.9 H Est GFR ( Amer) 12 Est GFR (Non-Af Amer) 10 Random Glucose 91 Calcium 8.9 Total Bilirubin 0.5 AST 25 ALT 33 Alkaline Phosphatase 107 Total Protein 7.0 Albumin 3.6 Globulin 3.4 Albumin/Globulin Ratio 1.0 Prostate Specific Ag 0.640 Assessment & Plan - Assessment and Plan (Free Text) Assessment: IMP: RENAL FAILURE HX OF RETENTION BPH DM CAD HYPERTENSION PENIILE INFLAMATION Plan: REC/PLAN: PSA CULTURE LOCAL PENILE CARE ANTIBIOTIC RX TAMSULOSIN WILL DISCUSS RE FURTHER RX FULL NOTE TO BE DICTATED THANK YOU YS - Date & Time Date: 12/25/16 Time: 11:25
[2016-12-25] MEDS ORDERED: Albuterol 0.083% Inhal Sol (2.5 mg/3 mL) UD IH STA (12:20)
[2016-12-25 12:38] VITALS: BP 137/48; PULSE 75; RESP 12
[2016-12-25] MEDS ORDERED: Albuterol 0.083% Inhal Sol (2.5 mg/3 mL) UD ONE (12:40)
== END 2016-12-25 13:02 ==
LOC: C.ER 07:23
DX: N48.22 Cellulitis of corpus cavernosum and penis (principal); N40.0 Benign prostatic hyperplasia without lower urinary tract symptoms; I25.10 Atherosclerotic heart disease of native coronary artery without angina pectoris; I12.9 Hypertensive chronic kidney disease with stage 1 through stage 4 chronic kidney disease, or unspecified chronic kidney disease; E11.9 Type 2 diabetes mellitus without complications
CPT/HCPCS: 80053; 84153; 85025; 87070; 96374; 96375; 96376; 99285; J2270; J2405; J7040

== ENCOUNTER 2017-04-11 09:21 | Inpatient (IN) | payer MEDICARE, MEDICAID ==
[2017-04-11 09:21] VITALS: BMI 32.9
--- NOTE | 2017-04-11 09:39 | C.PDOC ---
History Of Present Illness 66 y/o male with Hx of ESRD last on 04/10 and Chronic neuropathy on left side sent from long-term with complaints of sob for 4 days and subjective fever. Patient has difficulty clearing chest secretions despite multiple requests from halfway. As per EMS patient was fond hypoxic with audible chest sounds and moderate improve with O2. Patient denies chest pain or any other complaints at this time. FROM [place] FOR SOB, COUGH X 4 DAYS. SUBJ FEVER. PS HAS DIFFICULTY CLEARING CHEST SECRETIONS DESPITE MULT REQUESTS FROM [place]. NO CP. HO ESRD LAST 04/10. HO CHRONIC NEUROPATHY L SIDE. PER EMS PT FOUND HYPOXIC, AUDIBLE CHEST SOUNDS. MOD IMPROVE W O2 PMHx: CKD, Dialysis TThSat, Stroke (), [place] 1996, Colonic polyps, HTN, Sleep Apnea (test not yet performed), PSHx: CABG x4 (2006) EXAM MOD RESP DIST MILD TOX HYPOTENSIVE EXAM TACHYPNEA +BRONCHIAL SOUNDS, RHONCHI. cv rrr ABD NEG NEURO CHRONIC L SIDED HEMIPARESIS NO EDEMA Time Seen by Provider: 04/11/17 09:23 History Per: Patient History/Exam Limitations: no limitations Onset/Duration Of Symptoms: Days Current Symptoms Are (Timing): Still Present Past Medical History Reviewed: Historical Data, Nursing Documentation, Vital Signs Vital Signs: Last Vital Signs Temp 98.1 F 04/11/17 11:35 Pulse 71 04/11/17 11:35 Resp 14 04/11/17 11:35 BP 136/46 L 04/11/17 11:35 Pulse Ox 100 04/11/17 11:35 - Medical History PMH: Anemia, Asthma, CVA (affecting left side), Depression ('MAJOR DEPRESSIVE DISORDER,SINGLE EPISODE,UNSPECIFIED"), HTN, Peripheral Edema, End Stage Renal Disease (on hemodialysis), Chronic Kidney Disease, Sleep Apnea Surgical History: CABG, Endoscopy - [facility] Procedures DIALYSIS ARTERIOVENOSTOM (10/07/14) EXCISION OF SIGMOID COLON, ENDO, DIAGN (09/26/16) INCIS W REM OF FORIEGN BODY OR DEV FROM SKIN & SUBCUT TISSUE (12/23/14) Family History: States: No Known Family Hx - Social History Hx Alcohol Use: No Hx Substance Use: No - Immunization History Hx Influenza Vaccination: No Hx Pneumococcal Vaccination: Yes Review Of Systems Except As Marked, All Systems Reviewed And Found Negative. Constitutional: Positive for: Fever Cardiovascular: Negative for: Chest Pain Respiratory: Positive for: Cough, Shortness of Breath Gastrointestinal: Negative for: Nausea, Vomiting Skin: Negative for: Rash Physical Exam - Physical Exam Appears: Toxic (Mild), Other (Moderate respiratory distress, Hypotensive) Skin: Warm, Dry, No Rash Head: Atraumatic, Normacephalic Oral Mucosa: Moist Neck: Normal ROM, Supple Cardiovascular: Rhythm Regular, No Murmur Respiratory: No Rales, Rhonchi, No Wheezing, Other (Tachypnea, +Bronchial sounds ) Gastrointestinal/Abdominal: Soft, No Tenderness, No Guarding, No Rebound Extremity: No Pedal Edema, Capillary Refill (<2 seconds) Neurological/Psych: Oriented x3, Other (Chronic Left sided hemiparesis) ED Course And Treatment - Laboratory Results Result Diagrams: 04/11/17 09:46 04/11/17 09:46 ECG: Interpreted By Me, Viewed By Me ECG Rhythm: R BBB ECG Interpretation: No Changes From Prior (done on 11/13/16 ) Interpretation Of ECG: Wide QRS rhythm - Radiology CXR: Interpreted by Me, Viewed By Me CXR Interpretation: Yes: Other (Right sided pneumonia). No: Fracture Progress - Re-Evaluation Re-evaluation Note: 04/11/17 09:43 UNABLE TO GIVE SEPSIS IVF BOLUS DUE TO CONCERN FOR FLUID OVERLOAD, HO ESRD. 04/11/17 10:01 APPEARS MORE COMFORTABLE. 141/50. WILL HOLD PRESSORS 04/11/17 10:18 D/W DR COLLIER WILL ADMIT CONSULT DR CHACKO FOR NEPHRO; MANGIA FOR ID 04/11/17 10:55 PS LAST TYLENOL @ 0500. CO ZENG 04/11/17 12:48 D/W DR. DE; DIALYSIS - Data Reviewed Data Reviewed: Lab, Diagnostic imaging, EKG, Old records - Critical Care Citical Care: Excluding Proc Time Critical Care Time: 120 minutes - Continuity of Care Discussed patient case with:: Patient Disposition Counseled Patient/Family Regarding: Studies Performed, Diagnosis - Disposition Disposition: HOSPITALIZED Disposition Time: 10:19 Condition: STABLE - POA Present On Arrival: None - Clinical Impression Clinical Impression: ESRD (end stage renal disease) on dialysis, Respiratory distress, Pneumonia - Scribe Statement The provider has reviewed the documentation as recorded by the Ileanaibnancy Jamil All medical record entries made by the Scribe were at my direction and personally dictated by me. I have reviewed the chart and agree that the record accurately reflects my personal performance of the history, physical exam, medical decision making, and the department course for this patient. I have also personally directed, reviewed, and agree with the discharge instructions and disposition. Decision To Admit - Pt Status Changed To: Hospital Disposition Of: Inpatient - Admit Certification Admit to Inpatient:: After my assessment, the patient will require hospitalization for at least two midnights. This is because of the severity of symptoms shown, intensity of services needed, and/or the medical risk in this patient being treated as an outpatient. - InPatient: Physician Admission Certification: I certify that this patient requires 2 or more midnights of care for the following reason:: SEE NOTE - . Bed Request Type: Telemetry Admitting Physician: Theodore Collier Patient Diagnosis: ESRD (end stage renal disease) on dialysis, Respiratory distress, Pneumonia
[2017-04-11] MEDS ORDERED: DOPamine 400mg/250ml D5W 400 MG/250 ML BAG IV PRN (09:44)
[2017-04-11 09:54] LABS: BASO # 0.1 K/uL (0.0-0.2); BASO % 1.1 % (0.0-2.0); EOS # 0.5 K/uL (0.0-0.7); EOS % 5.4 % (0.0-4.0); HEMATOCRIT 33.9 % (35.0-51.0); LYMPH # 0.7 K/uL (1.0-4.3); LYMPH % 7.1 % (20.0-40.0); MEAN CORPUSCULAR HEMOGLOBIN 30.9 pg (27.0-31.0); MEAN CORPUSCULAR HGB CONC 32.2 g/dL (33.0-37.0); MEAN PLATELET VOLUME 8.8 fL (7.2-11.7); MONO # 0.8 K/uL (0.0-0.8); MONO % 7.8 % (0.0-10.0); RED CELL DISTRIBUTION WIDTH 14.6 % (11.5-14.5)
[2017-04-11 09:56] LABS: PLATELET COUNT 123 K/uL (130-400)
[2017-04-11 09:58] LABS: POTASSIUM 4.1 mmol/L (3.6-5.2)
[2017-04-11 09:59] LABS: VENOUS BLOOD GAS BASE EXCESS 9.2 mmol/L (0.0-2.0); VENOUS BLOOD GAS PCO2 66 mmHg (40-60); VENOUS BLOOD PH 7.36 (7.32-7.43)
[2017-04-11 10:00] LABS: BILIRUBIN,TOTAL 0.7 mg/dL (0.2-1.3)
[2017-04-11 10:01] LABS: CALCIUM 8.8 mg/dl (8.6-10.4); MAGNESIUM 2.1 mg/dL (1.6-2.3); PHOSPHOROUS 2.8 mg/dL (2.5-4.5); TOTAL PROTEIN 7.5 g/dL (6.3-8.3)
[2017-04-11 10:02] LABS: INR 1.2
[2017-04-11] MEDS ORDERED: Moxifloxacin IV 400mg/250ml NS 400 MG/250 ML BAG IVPB STA (10:10)
[2017-04-11] MEDS ORDERED: Vancomycin 1 gm/NS 200 ml 1 GM/200 ML BAG IVPB STA (10:11)
--- NOTE | 2017-04-11 10:26 | RAD ---
HISTORY: Sepsis Patient COMPARISON: Comparison is made to 11/13/2016 FINDINGS: LUNGS: Heterogeneous opacities are seen at the mid and lower right lung worse compared to the previous exam. There is also moderate pulmonary vascular congestion seen. PLEURA: Blunting of the right costophrenic angle suspicious for pleural effusion. CARDIOVASCULAR: The cardiac silhouette is enlarged. OSSEOUS STRUCTURES: Status post sternotomy. VISUALIZED UPPER ABDOMEN: Normal. OTHER FINDINGS: None. IMPRESSION: Perihilar heterogeneous opacities larger on the right may represent pulmonary congestion/edema. The possibility of superimposed infiltrate/pneumonia on the right lung is not totally excluded.
[2017-04-11] MEDS ORDERED: Sodium Chloride 0.9% 1,000 ML ONE ×2 (10:42→16:27)
[2017-04-11] MEDS ORDERED: Vancomycin 1 GM 1 GM/250 ML BAG IVPB ONE (10:42)
[2017-04-11] MEDS: Sodium Chloride 0.9% 1,000 ML IV SCH ×3 (10:50→20:18)
[2017-04-11 11:01] LABS: EOSINOPHIL 4 % (0-4); NEUTROPHIL 85 % (50-75); TOTAL CELLS COUNTED 100
[2017-04-11 12:42] LABS: VENOUS BLOOD GAS BASE EXCESS 6.5 mmol/L (0.0-2.0); VENOUS BLOOD GAS PCO2 64 mmHg (40-60); VENOUS BLOOD PH 7.34 (7.32-7.43)
[2017-04-11] MEDS ORDERED: Enoxaparin 40 mg Syringe SC SCH (16:00)
[2017-04-11] MEDS ORDERED: Enoxaparin 40 mg Syringe ONE (16:27)
--- NOTE | 2017-04-11 17:31 | CP.PCM.CON ---
History of Present Illness - History of Present Illness History of Present Illness: 66 y/o male with Hx of ESRD last on 04/10 and Chronic neuropathy on left side sent from [facility] with complaints of sob for 4 days and subjective fever. Patient has difficulty clearing chest secretions despite multiple requests from skilled nursing. As per EMS patient was fond hypoxic with audible chest sounds and moderate improve with O2. Patient denies chest pain or any other complaints at this time. admitted for pneumonia r/o sepsis possible CHF FROM NH FOR SOB, COUGH X 4 DAYS. SUBJ FEVER. PS HAS DIFFICULTY CLEARING CHEST SECRETIONS DESPITE MULT REQUESTS FROM [place]. NO CP. HO ESRD LAST 04/10. HO CHRONIC NEUROPATHY L SIDE. PER EMS PT FOUND HYPOXIC, AUDIBLE CHEST SOUNDS. MOD IMPROVE W O2 PMHx: CKD, Dialysis TThSat, Stroke (), DC 1996, Colonic polyps, HTN, Sleep Apnea (test not yet performed), PSHx: CABG x4 (2006) Review of Systems - Constitutional Constitutional: As Per HPI, Anorexia, Malaise - EENT Eyes: absent: As Per HPI, Blind Spots, Blurred Vision, Change in Vision, Decreased Night Vision, Diplopia, Discharge, Dry Eye, Exophthalmos, Floaters, Irritation, Itchy Eyes, Loss of Peripheral Vision, Pain, Photophobia, Requires Corrective Lenses, Sees Flashes, Spots in Vision, Tunnel Vision, Other Visual Disturbances, Loss of Vision, Other Ears: absent: As Per HPI, Decreased Hearing, Ear Discharge, Ear Pain, Tinnitus, Abnormal Hearing, Disequilibrium, Dizziness, Other Nose/Mouth/Throat: absent: As Per HPI, Epistaxis, Nasal Congestion, Nasal Discharge, Nasal Obstruction, Nasal Trauma, Nose Pain, Post Nasal Drip, Sinus Pain, Sinus Pressure, Bleeding Gums, Change in Voice, Dental Pain, Dry Mouth, Dysphagia, Halitosis, Hoarsness, Lip Swelling, Mouth Lesions, Mouth Pain, Odynophagia, Sore Throat, Throat Swelling, Tongue Swelling, Facial Pain, Neck Pain, Neck Mass, Other - Cardiovascular Cardiovascular: As Per HPI - Respiratory Respiratory: As Per HPI, Cough, Dyspnea. absent: Hemoptysis - Gastrointestinal Gastrointestinal: absent: As Per HPI, Abdominal Pain, Belching, Bloating, Change in Bowel Habits, Change in Stool Character, Coffee Ground Emesis, Constipation, Cramping, Diarrhea, Dyspepsia, Dysphagia, Early Satiety, Excessive Flatus, Fecal Incontinence, Heartburn, Hematemesis, Hematochezia, Loose Stools, Melena, Nausea, Odynophagia, Temesmus, Vomiting, Other - Genitourinary Genitourinary: absent: As Per HPI, Change in Urinary Stream, Difficulty Urinating, Dysuria, Flank Pain, Hematuria, Pyuria, Nocturia, Urinary Incontinence, Urinary Frequency, Urinary Hesitance, Urinary Urgency, Voiding Freq/Small Amts, Freq UTI, Hx Renal/Bladder Calculi, Hx /Renal Surgery, Bladder Distension, Other - Musculoskeletal Musculoskeletal: absent: As Per HPI, Abnormal Gait, Arthralgias, Atrophy, Back Pain, Deformity, Joint Swelling, Limited Range of Motion, Loss of Height, Muscle Cramps, Muscle Weakness, Myalgias, Neck Pain, Numbness, Radiating Pain into Limb, Stiffness, Tingling, Other - Integumentary Integumentary: absent: As Per HPI, Acne, Alopecia, Bleeding Lesions, Change in Hair, Change in Nails, Change in Pigmentation, Changing Lesions, Dry Skin, Erythema, Furuncle, Hirsutism, Lesions, New Lesions, Non-Healing Lesions, Photosensitivity, Pruritus, Rash, Skin Pain, Skin Ulcer, Sores, Striae, Swelling , Unusual Bruising, Wounds, Jaundice, Other - Neurological Neurological: absent: As Per HPI, Abnormal Gait, Abnormal Hearing, Abnormal Movements, Abnormal Speech, Behavioral Changes, Burning Sensations, Confusion, Convulsions, Disequilibrium, Dizziness, Numbness, Focal Weakness, Frequent Falls , Headaches, Lack of Coordination, Loss of Vision, Memory Loss, Paresthesias, Radicular Pain, Restless Legs, Sensory Deficit, Syncope, Tingling, Tremor, Vertigo, Weakness, Other Visual Disturbances, Other - Psychiatric Psychiatric: absent: As Per HPI, Abnormal Sleep Pattern, Anhedonia, Anxiety, Auditory Hallucinations, Behavioral Changes, Change in Appetite, Change in Libido, Confusion, Depression, Difficulty Concentrating, Hallucinations, Homicidal Ideation, Hopelessness, Irritability, Memory Loss, Mood Swings, Panic Attacks, Paranoia, Suicidal Ideation, Visual Hallucinations, Tactile Hallucinations, Other - Endocrine Endocrine: absent: As Per HPI, Change in Body Appearance, Change in Libido, Cold Intolorance, Deepening of Voice, Excessive Sweating, Fatigue, Flushing, Heat Intolorance, Increase in Ring/Shoe/Hat Size, Palpitations, Polydipsia, Polyphagia, Polyuria, Other - Hematologic/Lymphatic Hematologic: absent: As Per HPI, Easy Bleeding, Easy Bruising, Lymphadenopathy, Other Past Patient History - Infectious Disease Hx of Infectious Diseases: None - Past Medical History & Family History Past Medical History?: Yes - Past Social History Smoking Status: Former Smoker - CARDIAC Hx Hypertension: Yes Hx Peripheral Edema: Yes - PULMONARY Hx Asthma: Yes Hx Sleep Apnea: Yes - NEUROLOGICAL Hx Neurological Disorder: Yes HX Cerebrovascular Accident: Yes (LT SIDE WEAKNESS) - HEENT Hx HEENT Problems: Yes Hx Cataracts: Yes - RENAL Hx Chronic Kidney Disease: Yes - ENDOCRINE/METABOLIC Hx Diabetes Mellitus Type 1: Yes Hx Diabetes Mellitus Type 2: Yes - HEMATOLOGICAL/ONCOLOGICAL Hx Anemia: Yes - INTEGUMENTARY Hx Dermatological Problems: No Other/Comment: healed sacral ulcer - MUSCULOSKELETAL/RHEUMATOLOGICAL Hx Musculoskeletal Disorders: Yes Hx Falls: Yes Hx Unsteady Gait: Yes Other/Comment: HX: MUSCLE WEAKNESS(GENERALIZED), Left sided body weakness due to CVA - GASTROINTESTINAL Hx Gastrointestinal Disorders: Yes Other/Comment: HX: DYSPHAGIA,UNSPECIFIED - GENITOURINARY/GYNECOLOGICAL Hx Genitourinary Disorders: No - PSYCHIATRIC Hx Depression: Yes ('MAJOR DEPRESSIVE DISORDER,SINGLE EPISODE,UNSPECIFIED") Hx Substance Use: No - SURGICAL HISTORY Hx Coronary Artery Bypass Graft: Yes - ANESTHESIA Hx Anesthesia: Yes Hx Anesthesia Reactions: No Hx Malignant Hyperthermia: No Meds Allergies/Adverse Reactions: Allergies Allergy/AdvReac Type Severity Reaction Status Date / Time iodine Allergy Intermediate RASH Verified 04/11/17 09:37 aspirin Allergy Verified 04/11/17 09:37 clopidogrel bisulfate Allergy UNKNOWN Verified 04/11/17 09:37 [From Plavix] Penicillins Allergy UNKNOWN Verified 04/11/17 09:37 IV DYE Allergy Uncoded 04/11/17 09:38 - Medications Medications: Current Medications Enoxaparin Sodium (Lovenox) 40 mg SC DAILY [facility] Last Admin: 04/11/17 16:30 Dose: 40 mg Dopamine HCl/Dextrose (Dopamine 400mg/250ml D5w) 400 mg in 250 mls @ 7.552 mls/ hr IV .Q24H PRN; Protocol; 2 MCG/KG/MIN PRN Reason: TITRATE PER MD ORDER Sodium Chloride (Sodium Chloride 0.9%) 1,000 mls @ 200 mls/hr IV .Q5H [facility] Last Admin: 04/11/17 16:29 Dose: 200 mls/hr Physical Exam - Constitutional Appears: Toxic, Cachectic, Chronically Ill - Head Exam Head Exam: ATRAUMATIC, NORMAL INSPECTION, NORMOCEPHALIC - Eye Exam Eye Exam: EOMI, PERRL. absent: Scleral icterus - ENT Exam ENT Exam: Mucous Membranes Dry, Normal External Ear Exam, Normal Oropharynx - Neck Exam Neck exam: Negative for: Lymphadenopathy - Respiratory Exam Respiratory Exam: Decreased Breath Sounds, Rhonchi - Cardiovascular Exam Cardiovascular Exam: REGULAR RHYTHM, +S1, +S2 - GI/Abdominal Exam GI & Abdominal Exam: Diminished Bowel Sounds, Soft. absent: Tenderness - Rectal Exam Rectal Exam: Deferred - Exam Exam: NORMAL INSPECTION - Extremities Exam Extremities exam: Positive for: pedal edema, pedal pulses present. Negative for : calf tenderness, tenderness - Back Exam Back exam: absent: CVA tenderness (L), CVA tenderness (R), paraspinal tenderness - Neurological Exam Neurological exam: Alert, CN II-XII Intact, Oriented x3, Reflexes Normal - Psychiatric Exam Psychiatric exam: Depressed - Skin Skin Exam: Dry Results - Vital Signs Recent Vital Signs: Last Vital Signs Temp 98.1 F 04/11/17 11:35 Pulse 72 04/11/17 17:23 Resp 15 04/11/17 17:23 BP 158/53 H 04/11/17 17:23 Pulse Ox 98 04/11/17 17:23 - Labs Result Diagrams: 04/11/17 09:46 04/11/17 09:46 Labs: Laboratory Results - last 24 hr 04/11/17 04/11/17 04/11/17 09:35 09:46 09:46 WBC 10.0 D RBC 3.53 L Hgb 10.9 L Hct 33.9 L MCV 96.0 H MCH 30.9 MCHC 32.2 L RDW 14.6 H Plt Count 123 L D MPV 8.8 Neut % (Auto) 78.6 H Lymph % (Auto) 7.1 L [place] % (Auto) 7.8 Eos % (Auto) 5.4 H Baso % (Auto) 1.1 Neut # 7.9 H Lymph # 0.7 L [place] # 0.8 Eos # 0.5 Baso # 0.1 Neutrophils % (Manual) 85 H Lymphocytes % (Manual) 7 L Monocytes % (Manual) 4 Eosinophils % (Manual) 4 Platelet Estimate Slightly decreased L RBC Morphology Normal PT 13.2 H INR 1.2 APTT 41 H pO2 VBG pH VBG pCO2 VBG HCO3 VBG Total CO2 VBG O2 Sat (Calc) VBG Base Excess VBG Potassium Glucose Lactate Crit Value Called To Crit Value Called By Crit Value Read Back Blood Gas Notified Time Sodium Potassium Chloride Carbon Dioxide Anion Gap BUN Creatinine Est GFR ( Amer) Est GFR (Non-Af Amer) POC Glucose (mg/dL) 103 Random Glucose Calcium Phosphorus Magnesium Total Bilirubin AST ALT Alkaline Phosphatase Total Protein Albumin Globulin Albumin/Globulin Ratio Venous Blood Potassium 04/11/17 04/11/17 04/11/17 09:46 09:54 12:39 WBC RBC Hgb Hct MCV MCH MCHC RDW Plt Count MPV Neut % (Auto) Lymph % (Auto) [place] % (Auto) Eos % (Auto) Baso % (Auto) Neut # Lymph # [place] # Eos # Baso # Neutrophils % (Manual) Lymphocytes % (Manual) Monocytes % (Manual) Eosinophils % (Manual) Platelet Estimate RBC Morphology PT INR APTT pO2 40 61 H VBG pH 7.36 7.34 VBG pCO2 66 H* 64 H VBG HCO3 31.4 29.8 VBG Total CO2 39.3 H 36.5 H VBG O2 Sat (Calc) 82.2 H 95.1 H VBG Base Excess 9.2 H 6.5 H VBG Potassium 4.0 4.1 Glucose 103 111 H Lactate 0.7 0.7 Crit Value Called To Dr.ho stewart Crit Value Called By Manjinder bueno,information systems supervisor Crit Value Read Back Y Blood Gas Notified Time 1000 Sodium 139 136.0 136.0 Potassium 4.1 Chloride 93 L 98.0 98.0 Carbon Dioxide 32 H Anion Gap 18 BUN 29 H Creatinine 4.2 H Est GFR ( Amer) 17 Est GFR (Non-Af Amer) 14 POC Glucose (mg/dL) Random Glucose 94 Calcium 8.8 Phosphorus 2.8 Magnesium 2.1 Total Bilirubin 0.7 AST 49 ALT 61 Alkaline Phosphatase 244 H Total Protein 7.5 Albumin 3.6 Globulin 3.8 Albumin/Globulin Ratio 1.0 Venous Blood Potassium 4.0 4.1 04/11/17 13:33 WBC RBC Hgb Hct MCV MCH MCHC RDW Plt Count MPV Neut % (Auto) Lymph % (Auto) [place] % (Auto) Eos % (Auto) Baso % (Auto) Neut # Lymph # [place] # Eos # Baso # Neutrophils % (Manual) Lymphocytes % (Manual) Monocytes % (Manual) Eosinophils % (Manual) Platelet Estimate RBC Morphology PT INR APTT pO2 VBG pH VBG pCO2 VBG HCO3 VBG Total CO2 VBG O2 Sat (Calc) VBG Base Excess VBG Potassium Glucose Lactate Crit Value Called To Crit Value Called By Crit Value Read Back Blood Gas Notified Time Sodium Potassium Chloride Carbon Dioxide Anion Gap BUN Creatinine Est GFR ( Amer) Est GFR (Non-Af Amer) POC Glucose (mg/dL) 130 H Random Glucose Calcium Phosphorus Magnesium Total Bilirubin AST ALT Alkaline Phosphatase Total Protein Albumin Globulin Albumin/Globulin Ratio Venous Blood Potassium Assessment & Plan (1) Pneumonia Status: Acute (2) Respiratory distress Status: Acute (3) ESRD (end stage renal disease) on dialysis Status: Chronic (4) Anemia Status: Acute (5) COPD (chronic obstructive pulmonary disease) Status: Acute (6) Chronic kidney disease Status: Acute - Assessment and Plan (Free Text) Assessment: cultured up empiric iv antibiotics
[2017-04-11] MEDS ORDERED: Gentamicin 80 mg in 0.9% NS 80 MG/100 ML BAG IVPB SCH (18:00)
--- NOTE | 2017-04-11 19:25 | CP.PCM.CON ---
History of Present Illness - History of Present Illness History of Present Illness: pt is seen and examined, full consult is dictated #[id number] Past Patient History - Infectious Disease Hx of Infectious Diseases: None - Past Medical History & Family History Past Medical History?: Yes - Past Social History Smoking Status: Former Smoker - CARDIAC Hx Hypertension: Yes Hx Peripheral Edema: Yes - PULMONARY Hx Asthma: Yes Hx Sleep Apnea: Yes - NEUROLOGICAL Hx Neurological Disorder: Yes HX Cerebrovascular Accident: Yes (LT SIDE WEAKNESS) - HEENT Hx HEENT Problems: Yes Hx Cataracts: Yes - RENAL Hx Chronic Kidney Disease: Yes - ENDOCRINE/METABOLIC Hx Diabetes Mellitus Type 1: Yes Hx Diabetes Mellitus Type 2: Yes - HEMATOLOGICAL/ONCOLOGICAL Hx Anemia: Yes - INTEGUMENTARY Hx Dermatological Problems: No Other/Comment: healed sacral ulcer - MUSCULOSKELETAL/RHEUMATOLOGICAL Hx Musculoskeletal Disorders: Yes Hx Falls: Yes Hx Unsteady Gait: Yes Other/Comment: HX: MUSCLE WEAKNESS(GENERALIZED), Left sided body weakness due to CVA - GASTROINTESTINAL Hx Gastrointestinal Disorders: Yes Other/Comment: HX: DYSPHAGIA,UNSPECIFIED - GENITOURINARY/GYNECOLOGICAL Hx Genitourinary Disorders: No - PSYCHIATRIC Hx Depression: Yes ('MAJOR DEPRESSIVE DISORDER,SINGLE EPISODE,UNSPECIFIED") Hx Substance Use: No - SURGICAL HISTORY Hx Coronary Artery Bypass Graft: Yes - ANESTHESIA Hx Anesthesia: Yes Hx Anesthesia Reactions: No Hx Malignant Hyperthermia: No Meds Allergies/Adverse Reactions: Allergies Allergy/AdvReac Type Severity Reaction Status Date / Time iodine Allergy Intermediate RASH Verified 04/11/17 09:37 aspirin Allergy Verified 04/11/17 09:37 clopidogrel bisulfate Allergy UNKNOWN Verified 04/11/17 09:37 [From Plavix] Penicillins Allergy UNKNOWN Verified 04/11/17 09:37 IV DYE Allergy Uncoded 04/11/17 09:38 - Medications Medications: Current Medications Enoxaparin Sodium (Lovenox) 30 mg SC DAILY [facility] Dopamine HCl/Dextrose (Dopamine 400mg/250ml D5w) 400 mg in 250 mls @ 7.552 mls/ hr IV .Q24H PRN; Protocol; 2 MCG/KG/MIN PRN Reason: TITRATE PER MD ORDER Sodium Chloride (Sodium Chloride 0.9%) 1,000 mls @ 200 mls/hr IV .Q5H [facility] Last Admin: 04/11/17 16:29 Dose: 200 mls/hr Clindamycin Phosphate (Cleocin) 600 mg in 50 mls @ 102 mls/hr IVPB Q8H [facility] Gentamicin Sulfate/Sodium Chloride (Gentamicin Iv 80 Mg Premix) 80 mg in 100 mls @ 100 mls/hr IVPB ONCE [facility] Aztreonam 1 gm/ Sodium (Chloride) 100 mls @ 200 mls/hr IVPB Q12H [facility] Results - Vital Signs Recent Vital Signs: Last Vital Signs Temp 98.1 F 04/11/17 11:35 Pulse 72 04/11/17 17:23 Resp 15 04/11/17 17:23 BP 158/53 H 04/11/17 17:23 Pulse Ox 98 04/11/17 17:23 - Labs Result Diagrams: 04/11/17 09:46 04/11/17 09:46 Labs: Laboratory Results - last 24 hr 04/11/17 04/11/17 04/11/17 09:35 09:46 09:46 WBC 10.0 D RBC 3.53 L Hgb 10.9 L Hct 33.9 L MCV 96.0 H MCH 30.9 MCHC 32.2 L RDW 14.6 H Plt Count 123 L D MPV 8.8 Neut % (Auto) 78.6 H Lymph % (Auto) 7.1 L [place] % (Auto) 7.8 Eos % (Auto) 5.4 H Baso % (Auto) 1.1 Neut # 7.9 H Lymph # 0.7 L [place] # 0.8 Eos # 0.5 Baso # 0.1 Neutrophils % (Manual) 85 H Lymphocytes % (Manual) 7 L Monocytes % (Manual) 4 Eosinophils % (Manual) 4 Platelet Estimate Slightly decreased L RBC Morphology Normal PT 13.2 H INR 1.2 APTT 41 H pO2 VBG pH VBG pCO2 VBG HCO3 VBG Total CO2 VBG O2 Sat (Calc) VBG Base Excess VBG Potassium Glucose Lactate Crit Value Called To Crit Value Called By Crit Value Read Back Blood Gas Notified Time Sodium Potassium Chloride Carbon Dioxide Anion Gap BUN Creatinine Est GFR ( Amer) Est GFR (Non-Af Amer) POC Glucose (mg/dL) 103 Random Glucose Calcium Phosphorus Magnesium Total Bilirubin AST ALT Alkaline Phosphatase Total Protein Albumin Globulin Albumin/Globulin Ratio Venous Blood Potassium 04/11/17 04/11/17 04/11/17 09:46 09:54 12:39 WBC RBC Hgb Hct MCV MCH MCHC RDW Plt Count MPV Neut % (Auto) Lymph % (Auto) [place] % (Auto) Eos % (Auto) Baso % (Auto) Neut # Lymph # [place] # Eos # Baso # Neutrophils % (Manual) Lymphocytes % (Manual) Monocytes % (Manual) Eosinophils % (Manual) Platelet Estimate RBC Morphology PT INR APTT pO2 40 61 H VBG pH 7.36 7.34 VBG pCO2 66 H* 64 H VBG HCO3 31.4 29.8 VBG Total CO2 39.3 H 36.5 H VBG O2 Sat (Calc) 82.2 H 95.1 H VBG Base Excess 9.2 H 6.5 H VBG Potassium 4.0 4.1 Glucose 103 111 H Lactate 0.7 0.7 Crit Value Called To Dr.ho stewart Crit Value Called By Manjinder bueno,data control clerk Crit Value Read Back Y Blood Gas Notified Time 1000 Sodium 139 136.0 136.0 Potassium 4.1 Chloride 93 L 98.0 98.0 Carbon Dioxide 32 H Anion Gap 18 BUN 29 H Creatinine 4.2 H Est GFR ( Amer) 17 Est GFR (Non-Af Amer) 14 POC Glucose (mg/dL) Random Glucose 94 Calcium 8.8 Phosphorus 2.8 Magnesium 2.1 Total Bilirubin 0.7 AST 49 ALT 61 Alkaline Phosphatase 244 H Total Protein 7.5 Albumin 3.6 Globulin 3.8 Albumin/Globulin Ratio 1.0 Venous Blood Potassium 4.0 4.1 04/11/17 13:33 WBC RBC Hgb Hct MCV MCH MCHC RDW Plt Count MPV Neut % (Auto) Lymph % (Auto) [place] % (Auto) Eos % (Auto) Baso % (Auto) Neut # Lymph # [place] # Eos # Baso # Neutrophils % (Manual) Lymphocytes % (Manual) Monocytes % (Manual) Eosinophils % (Manual) Platelet Estimate RBC Morphology PT INR APTT pO2 VBG pH VBG pCO2 VBG HCO3 VBG Total CO2 VBG O2 Sat (Calc) VBG Base Excess VBG Potassium Glucose Lactate Crit Value Called To Crit Value Called By Crit Value Read Back Blood Gas Notified Time Sodium Potassium Chloride Carbon Dioxide Anion Gap BUN Creatinine Est GFR ( Amer) Est GFR (Non-Af Amer) POC Glucose (mg/dL) 130 H Random Glucose Calcium Phosphorus Magnesium Total Bilirubin AST ALT Alkaline Phosphatase Total Protein Albumin Globulin Albumin/Globulin Ratio Venous Blood Potassium
[2017-04-11] MEDS: Aztreonam 1 GM in Sodium Chloride 0.9% 100 ML IVPB SCH (20:08)
[2017-04-11] MEDS: Clindamycin 600mg/50ml D5W 600 MG/50 ML VIAL IVPB SCH (21:09)
[2017-04-11] MEDS ORDERED: Paricalcitol 2 mcg/ml Inj IV ONE (23:38)
[2017-04-12] MEDS: Sodium Chloride 0.9% 1,000 ML IV SCH ×2 (00:58→05:41)
[2017-04-12] MEDS: Clindamycin 600mg/50ml D5W 600 MG/50 ML VIAL IVPB SCH (01:00)
[2017-04-12] MEDS: Albuterol-Ipratrop 3 mg / 0.5 (3 ml) UD INH SCH ×4 (01:14→19:45)
[2017-04-12] MEDS ORDERED: Albuterol-Ipratrop 3 mg / 0.5 (3 ml) UD INH STA (03:02)
[2017-04-12] MEDS: Aztreonam 1 GM in Sodium Chloride 0.9% 100 ML IVPB SCH ×2 (05:41→19:50)
--- NOTE | 2017-04-12 06:46 | CON ---
DATE: RENAL CONSULTATION LOCATION: The patient is located in room 564, bed B. REQUESTING PHYSICIAN: Theodore Lucas MD. REASON FOR RENAL CONSULT: End-stage renal disease, pneumonia for continuation of the hemodialysis. HISTORY OF PRESENT ILLNESS: Mr. Gonzales is a 66-year-old obese, elderly [place] male with past medical history significant for diabetes, hypertension for a more than 25 years, coronary artery disease, hyperlipidemia, status post CABG, about 5 to 7 years ago and end-stage renal disease on hemodialysis for the last 1 to 2 years, CVA with left hemiparesis, resident of custodial who was admitted from the nursing with a chief complaint of persistent cough associated yellow sputum for the last 1 week. As per the patient, his symptoms of cough was deteriorating and short of breath, and the patient was sent to the emergency room for further evaluation. The patient was found to have right middle lobe and lower lobe infiltrates and the patient was admitted for the symptomatic pneumonia for possible healthcare associated pneumonia. The patient is having persistent cough and unable to complete full sentence. Denies any chest pain, complaints of epigastric discomfort after severe cough. Denies any headache, dizziness. Denies any abdominal distention. Denies any nausea, vomiting, or diarrhea. Denies any dysuria or frequency. The patient claims his leg swelling is getting better since last week after extra hemodialysis treatment. Denies any fever at this time. Subjective feverish in the custodial. PAST MEDICAL HISTORY: Significant for hypertension, diabetes, hyperlipidemia, CVA with left-sided weakness, end-stage renal disease on hemodialysis 3 times a week, coronary artery disease status post CABG. PAST SURGICAL HISTORY: Status post CABG about 5 to 7 years ago and left upper extremity AV fistula. ALLERGIES: ALLERGIC TO ASPIRIN, PLAVIX, PENICILLIN AND IV DYE. FAMILY HISTORY: Not significant. SOCIAL HISTORY: Denies any smoking and denies any alcohol. Denies any drugs. The patient is a resident of [facility]. The patient is single and he has a 1 child back in [facility]. CURRENT MEDICATIONS: Includes as follows; influenza virus vaccine 45 mcg IM x1, Aldactone 1 g q. 12 hours, clindamycin 600 mg IV q. 8 hours and dopamine p.r.n. and albuterol and ipratropium, DuoNeb inhalers q. 6 hours and gentamicin 80 mg IV piggyback x1 and Lovenox 30 mg subcutaneous daily and IV fluids, 200 mL IV piggyback x5 hours was given. REVIEW OF SYSTEMS: Significant for cough and shortness of breath and cough associated with yellow sputum. All other review of systems reviewed and are negative. PHYSICAL EXAMINATION GENERAL: Mr. Gonzales is a 66-year-old obese, elderly [place] male moderately built, moderately nourished, not in acute distress, on nasal cannula. VITAL SIGNS: As follows; on admission, his blood pressure is 136/46, pulse 71, respirations 14, temperature 98.1, saturation 100%, height 5 feet 6 inches, and weight is 222 pounds. BMI is 35.8. HEENT: Pupils normal and reactive to light and accommodation. Conjunctivae pink. Sclerae anicteric. Tongue is moist. Trachea is midline. LUNGS: Symmetric on both sides. Bilateral breath sounds present. Right-sided rhonchi present. Occasional basal crackles present. CARDIOVASCULAR SYSTEM: [place] at the fifth intercostal space, midclavicular line. S1 and S2 audible. No murmur, no gallop. The patient has a midline scar present from the previous CABG. ABDOMEN: Normal in appearance. Soft and tympanic. No guarding. No rigidity. No hepatosplenomegaly. CENTRAL NERVOUS SYSTEM: The patient is alert, awake, and oriented x3. Sensory and motor system is grossly intact on the right side. The patient has a left-sided weakness both upper and lower extremities and contracted left upper extremity. EXTREMITIES: No cyanosis, no clubbing. The patient has 1+ edema in both lower extremities. LABORATORY DATA: Include as follows as of 04/11/2017, WBC 10, hemoglobin 10.9, hematocrit is 33.9 and platelets 123. Neutrophils 85, lymph 7, monos 4, eosinophil 4, PT 13.2, PTT 41 and INR 1.2. PH 7.36, PO2 is 40, PCO2 is 66 which is VBG and bicarb is 31 and saturation of 39%. Sodium 139, potassium 4.1, chloride 93, CO2 of 32, BUN 29, creatinine 4.2, glucose 103, calcium 8.8, phosphorus 2.8, magnesium 2.1, total bili 0.7, AST 49, ALT 61, alkaline phosphatase 244, total protein 7.1, albumin is 3.6. His repeat VBG pH 7.34, PCO2 64 and PO2 61, bicarb is 29.8 and saturation is 95.1 which appears to be ABG and Accu-Cheks 130 and 153. Chest x-ray as of 04/11/2017, perihilar heterogenous opacities larger on the right, may represent pulmonary congestion or edema, possibility of superimposed infiltrates pneumonia and the right lung is not totally excluded. Heterogenous opacities are seen at mid and lower right lung. Right lung was compared to the previous exam and the results of moderate pulmonary vascular congestion seen. Blunting of the right costophrenic angle suspicious for pleural effusion. IMPRESSION: In summary, Mr. Gonzales is a 66-year-old elderly [place] male with a history of longstanding hypertension, diabetes, hyperlipidemia, coronary artery disease status post coronary artery bypass graft, cerebrovascular accident with left-sided weakness,end-stage renal disease on hemodialysis 3 times a week, who was admitted from the custodial with cough, shortness of breath for 1 week and found to have right middle and lower lobe opacities and vascular congestion. 1. End-stage renal disease, continue hemodialysis 3 times a week on Sunday, , and Sunday. We will try to ultrafiltrate as much as the patient can tolerate. 2. Pneumonia right-sided. 3. Rule out congestive heart failure. PLAN: We will continue hemodialysis 3 times a week. We will continue IV antibiotics as per ID recommendations and check sputum for gram stain and culture and sensitivity. We will continue for phosphate binders, Renvela 800 mg p.o. t.i.d. and Nephrocaps 1 tablet daily. We will follow with you. Thank you for allowing me to participate in your patient's care. Martin Ortiz MD
[2017-04-12] MEDS: Sevelamer Carb 0.8 gm/Packet PO SCH ×3 (08:54→18:50)
[2017-04-12] MEDS: Multivitamin Vitamin B Complex (Nephro-Vite) Tab PO SCH (08:54)
[2017-04-12] MEDS: Clindamycin 600mg/50ml NS 600 MG/50 ML BAG IVPB SCH ×2 (10:30→18:50)
[2017-04-12] MEDS: Enoxaparin 30 mg Syringe SC SCH (10:31)
[2017-04-12] MEDS ORDERED: Lidocaine 2% Jelly (30 ml) TOP ONE (12:45)
--- NOTE | 2017-04-12 17:06 | CP.PCM.PN ---
Subjective - Date & Time of Evaluation Date of Evaluation: 04/12/17 Time of Evaluation: 17:05 - Subjective Subjective: pt is seen and examined, follow up consult is dictated #[id number] s/p hd today, uf 3000 ml stable tx Objective - Vital Signs/Intake and Output Vital Signs (last 24 hours): Temp Pulse Resp BP Pulse Ox 97.4 F L 72 22 124/59 L 97 04/12/17 15:01 04/12/17 14:35 04/12/17 14:35 04/12/17 15:35 04/12/17 14:35 Intake and Output: 04/12/17 04/12/17 06:59 18:59 Intake Total 600 Balance 600 - Medications Medications: Current Medications Albuterol/Ipratropium (Duoneb 3 Mg/0.5 Mg (3 Ml) Ud) 3 ml INH RQ6 [facility] Last Admin: 04/12/17 13:48 Dose: 3 ml Enoxaparin Sodium (Lovenox) 30 mg SC DAILY [facility] Last Admin: 04/12/17 10:31 Dose: 30 mg Epoetin Mario (Procrit) 4,000 unit IV TTS [facility] Dopamine HCl/Dextrose (Dopamine 400mg/250ml D5w) 400 mg in 250 mls @ 7.552 mls/ hr IV .Q24H PRN; Protocol; 2 MCG/KG/MIN PRN Reason: TITRATE PER MD ORDER Gentamicin Sulfate/Sodium Chloride (Gentamicin Iv 80 Mg Premix) 80 mg in 100 mls @ 100 mls/hr IVPB ONCE BELL Aztreonam 1 gm/ Sodium (Chloride) 100 mls @ 200 mls/hr IVPB Q12H [facility] Last Admin: 04/12/17 05:41 Dose: 200 mls/hr Clindamycin Phosphate (Cleocin In Normal Saline Addvantage) 600 mg in 50 mls @ 100 mls/hr IVPB Q8H [facility] Last Admin: 04/12/17 10:30 Dose: Not Given Influenza Virus Vaccine (Afluria) 45 mcg IM .ONCE ONE Stop: 04/16/17 10:01 Sevelamer Carbonate (Renvela) 0.8 gm PO TIDCC [facility] Last Admin: 04/12/17 12:30 Dose: Not Given Vitamin B Complex/Vit C/Folic Acid (Nephro-Renaldo) 1 tab PO 0800 [facility] Last Admin: 04/12/17 08:54 Dose: 1 tab - Labs Labs: 04/11/17 09:46 04/11/17 09:46 PT 13.2 SECONDS (9.7-12.2) H 04/11/17 09:46 INR 1.2 04/11/17 09:46 APTT 41 SECONDS (21-34) H 04/11/17 09:46
--- NOTE | 2017-04-12 18:39 | CP.PCM.PN ---
Subjective - Date & Time of Evaluation Date of Evaluation: 04/12/17 Time of Evaluation: 10:00 - Subjective Subjective: weak lethargic nad seen on HD discussed with dr Lucas Objective - Vital Signs/Intake and Output Vital Signs (last 24 hours): Temp Pulse Resp BP Pulse Ox 97.4 F L 72 22 129/54 L 97 04/12/17 15:01 04/12/17 14:35 04/12/17 14:35 04/12/17 17:35 04/12/17 14:35 Intake and Output: 04/12/17 04/12/17 06:59 18:59 Intake Total 600 810 Balance 600 810 - Medications Medications: Current Medications Albuterol/Ipratropium (Duoneb 3 Mg/0.5 Mg (3 Ml) Ud) 3 ml INH RQ6 [facility] Last Admin: 04/12/17 13:48 Dose: 3 ml Enoxaparin Sodium (Lovenox) 30 mg SC DAILY [facility] Last Admin: 04/12/17 10:31 Dose: 30 mg Epoetin Mario (Procrit) 4,000 unit IV TTS [facility] Dopamine HCl/Dextrose (Dopamine 400mg/250ml D5w) 400 mg in 250 mls @ 7.552 mls/ hr IV .Q24H PRN; Protocol; 2 MCG/KG/MIN PRN Reason: TITRATE PER MD ORDER Gentamicin Sulfate/Sodium Chloride (Gentamicin Iv 80 Mg Premix) 80 mg in 100 mls @ 100 mls/hr IVPB ONCE [facility] Aztreonam 1 gm/ Sodium (Chloride) 100 mls @ 200 mls/hr IVPB Q12H [facility] Last Admin: 04/12/17 05:41 Dose: 200 mls/hr Clindamycin Phosphate (Cleocin In Normal Saline Addvantage) 600 mg in 50 mls @ 100 mls/hr IVPB Q8H [facility] Last Admin: 04/12/17 10:30 Dose: Not Given Vancomycin HCl 1 gm/ Sodium (Chloride) 250 mls @ 166.7 mls/hr IVPB MWF [facility] Stop: 04/12/17 20:06 Influenza Virus Vaccine (Afluria) 45 mcg IM .ONCE ONE Stop: 04/16/17 10:01 Sevelamer Carbonate (Renvela) 0.8 gm PO TIDCC [facility] Last Admin: 04/12/17 12:30 Dose: Not Given Vitamin B Complex/Vit C/Folic Acid (Nephro-Renaldo) 1 tab PO 0800 [facility] Last Admin: 04/12/17 08:54 Dose: 1 tab - Labs Labs: 04/11/17 09:46 04/11/17 09:46 PT 13.2 SECONDS (9.7-12.2) H 04/11/17 09:46 INR 1.2 04/11/17 09:46 APTT 41 SECONDS (21-34) H 04/11/17 09:46 - Constitutional Appears: Toxic - Head Exam Head Exam: NORMOCEPHALIC - Eye Exam Eye Exam: PERRL - ENT Exam ENT Exam: Mucous Membranes Dry - Neck Exam Neck Exam: absent: Lymphadenopathy - Respiratory Exam Respiratory Exam: Decreased Breath Sounds - Cardiovascular Exam Cardiovascular Exam: REGULAR RHYTHM - GI/Abdominal Exam GI & Abdominal Exam: Distended, Soft - Rectal Exam Rectal Exam: Deferred - Exam Exam: NORMAL INSPECTION - Extremities Exam Extremities Exam: absent: Pedal Edema - Back Exam Back Exam: absent: CVA tenderness (L), CVA tenderness (R) - Neurological Exam Neurological Exam: Alert, Awake, Oriented x3 - Psychiatric Exam Psychiatric exam: Depressed - Skin Skin Exam: Dry Assessment and Plan (1) Pneumonia Status: Acute (2) Respiratory distress Status: Acute (3) ESRD (end stage renal disease) on dialysis Status: Chronic (4) Anemia Status: Acute (5) COPD (chronic obstructive pulmonary disease) Status: Acute (6) Chronic kidney disease Status: Acute
--- NOTE | 2017-04-12 18:43 | CP.PCM.HP ---
History of Present Illness - History of Present Illness History of Present Illness: CC persistent cough and sob HPI: 66 y/o male with Hx of ESRD last on 04/10 and Chronic neuropathy on left side sent from retirement with complaints of sob for 4 days and subjective fever. Patient has difficulty clearing chest secretions despite multiple requests from [facility]. As per EMS patient was fond hypoxic with audible chest sounds and moderate improve with O2. Patient denies chest pain or any other complaints at this time. Present on Admission - Present on Admission Any Indicators Present on Admission: Yes History of Uncontrolled Diabetes: Yes Review of Systems - Constitutional Constitutional: Headache, Lethargy, Malaise, Weakness - EENT Nose/Mouth/Throat: Nasal Congestion - Cardiovascular Cardiovascular: Dyspnea, Leg Edema, Orthopnea, Pedal Edema - Respiratory Respiratory: Cough, Dyspnea, Chest Congestion, Pain with Coughing - Gastrointestinal Gastrointestinal: Constipation. absent: Diarrhea - Genitourinary Genitourinary: Difficulty Urinating Past Patient History - Infectious Disease Hx of Infectious Diseases: None - Past Medical History & Family History Past Medical History?: Yes - Past Social History Smoking Status: Former Smoker - CARDIAC Hx Hypertension: Yes - PULMONARY Hx Asthma: Yes Hx Sleep Apnea: Yes - NEUROLOGICAL HX Cerebrovascular Accident: Yes (LT SIDE WEAKNESS) - HEENT Hx HEENT Problems: Yes Hx Cataracts: Yes - RENAL Hx Chronic Kidney Disease: Yes - ENDOCRINE/METABOLIC Hx Diabetes Mellitus Type 1: Yes Hx Diabetes Mellitus Type 2: Yes - HEMATOLOGICAL/ONCOLOGICAL Hx Anemia: Yes - INTEGUMENTARY Hx Dermatological Problems: No Other/Comment: healed sacral ulcer - MUSCULOSKELETAL/RHEUMATOLOGICAL Hx Musculoskeletal Disorders: Yes Hx Falls: Yes Hx Unsteady Gait: Yes Other/Comment: HX: MUSCLE WEAKNESS(GENERALIZED), Left sided body weakness due to CVA - GASTROINTESTINAL Hx Gastrointestinal Disorders: Yes Other/Comment: HX: DYSPHAGIA,UNSPECIFIED - GENITOURINARY/GYNECOLOGICAL Hx Genitourinary Disorders: No - PSYCHIATRIC Hx Depression: Yes ('MAJOR DEPRESSIVE DISORDER,SINGLE EPISODE,UNSPECIFIED") Hx Substance Use: No - SURGICAL HISTORY Hx Coronary Artery Bypass Graft: Yes - ANESTHESIA Hx Anesthesia: Yes Hx Anesthesia Reactions: No Hx Malignant Hyperthermia: No Meds Allergies/Adverse Reactions: Allergies Allergy/AdvReac Type Severity Reaction Status Date / Time iodine Allergy Intermediate RASH Verified 04/11/17 09:37 aspirin Allergy Verified 04/11/17 09:37 clopidogrel bisulfate Allergy UNKNOWN Verified 04/11/17 09:37 [From Plavix] Penicillins Allergy UNKNOWN Verified 04/11/17 09:37 IV DYE Allergy Uncoded 04/11/17 09:38 Physical Exam - Constitutional Appears: In Acute Distress - Eye Exam Eye Exam: absent: Scleral icterus - ENT Exam ENT Exam: Mucous Membranes Moist - Neck Exam Neck exam: Positive for: Full Rom. Negative for: Lymphadenopathy - Respiratory Exam Respiratory Exam: Prolonged Expiratory Phase, Rhonchi - Cardiovascular Exam Cardiovascular Exam: REGULAR RHYTHM - GI/Abdominal Exam GI & Abdominal Exam: Soft. absent: Tenderness - Extremities Exam Extremities exam: Positive for: pedal edema. Negative for: calf tenderness Results - Vital Signs Recent Vital Signs: Last Vital Signs Temp 97.4 F L 04/12/17 15:01 Pulse 72 04/12/17 14:35 Resp 22 04/12/17 14:35 BP 129/54 L 04/12/17 17:35 Pulse Ox 97 04/12/17 14:35 - Labs Result Diagrams: 04/11/17 09:46 04/11/17 09:46 Labs: Laboratory Results - last 24 hr 04/11/17 04/12/17 04/12/17 21:23 08:14 16:34 POC Glucose (mg/dL) 153 H 117 H Random Vancomycin 10.74 Assessment & Plan - Assessment and Plan (Free Text) Assessment: Pneumonia CHF ESRD T2dm OLD CVA Plan: ID consult for antibiotic Renal consult for HD - Date & Time Date: 04/12/17 Time: 08:50
[2017-04-12] MEDS: Vancomycin 1 gm/NS 200 ml 1 GM/200 ML BAG IVPB SCH (21:25)
[2017-04-13] MEDS: Albuterol-Ipratrop 3 mg / 0.5 (3 ml) UD INH SCH ×4 (01:27→19:56)
[2017-04-13] MEDS: Clindamycin 600mg/50ml NS 600 MG/50 ML BAG IVPB SCH ×3 (02:15→17:43)
[2017-04-13] MEDS ORDERED: DiphenhydrAMINE 12.5 mg/5 ml LIQ UD (5 ml) PO STA (02:37)
[2017-04-13] MEDS: Aztreonam 1 GM in Sodium Chloride 0.9% 100 ML IVPB SCH ×2 (06:39→20:47)
[2017-04-13] MEDS: Sevelamer Carb 0.8 gm/Packet PO SCH ×3 (08:45→17:42)
[2017-04-13] MEDS: Multivitamin Vitamin B Complex (Nephro-Vite) Tab PO SCH (08:45)
[2017-04-13] MEDS ORDERED: Epoetin Alfa Dialysis 40000 UNIT/ml Inj IV SCH (10:00)
[2017-04-13] MEDS: Enoxaparin 30 mg Syringe SC SCH ×2 (10:21→10:27)
--- NOTE | 2017-04-13 10:24 | PN ---
FOLLOWUP RENAL CONSULTATION LOCATION: The patient is located in room 564, bed B. REQUESTING PHYSICIAN: Theodore Lucas MD. REASON FOR FOLLOWUP: End-stage renal disease, continuation of the hemodialysis. SUBJECTIVE: Mr. Gonzales is a 66-year-old elderly obese [place] male with past medical history significant for hypertension, diabetes, CVA, end-stage renal disease with left-sided weakness, was admitted with chief complaints of shortness of breath, cough for one week prior to the admission. The patient was seen and examined during dialysis, UF goal is about 3.5 liters. The patient is not in acute distress and denies any chest pain or palpitation. Denies any fever or cough at this time. PHYSICAL EXAMINATION: VITAL SIGNS: As follows, blood pressure 134/52, pulse 72, respirations 20, temperature 98.1, saturation 98%, height 5 feet 6 inches and weight is 205 pounds. GENERAL: Mr. Gonzales is a 66-year-old elderly obese Romanian male not in distress. HEENT: Pupils normal and reactive to light and accommodation. Conjunctivae pink. Sclerae anicteric. Tongue is moist. Trachea is midline. LUNGS: Symmetric on both sides. Bilateral breath sounds present. Occasional basal crackles present on the right side. CARDIOVASCULAR SYSTEM: [place] at the fifth intercostal space, midclavicular line. S1 and S2 audible. No murmur, no gallop. The patient has a midsternal scar present from the previous CABG. ABDOMEN: Slightly protuberant and soft tympanic. No guarding. No rigidity. No hepatosplenomegaly. CENTRAL NERVOUS SYSTEM: The patient is alert, awake, and oriented x3. Sensory system is grossly within normal limit. Motor system, the patient has left-sided weakness from the CVA. EXTREMITIES: No cyanosis. No clubbing. The patient has 1+ edema in both lower extremities. CURRENT MEDICATIONS: Include as follows; Azactam 1 g q. 12 hours and clindamycin 600 mg IV piggyback q. 8 hours, DuoNeb inhaler and gentamicin 80 mg x1 given on 04/13/2017, Lovenox 40 mg subcu daily, Nephro-Renaldo 1 tablet daily, Epogen 4000 units 3 times a week and Renvela 800 mg p.o. t.i.d., and vancomycin 1 g 3 times a week. His vancomycin level is 10.74 and Accu-Cheks on the 117 and 164. Blood cultures x2 negative day #1. ASSESSMENT AND PLAN: In , Mr. 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 The patient has been treated for possible pneumonia versus congestive heart failure. 1. End-stage renal disease, continue hemodialysis 3 times a week, Sunday, and Sunday. 2. Pneumonia. 3. Rule out congestive heart failure secondary to fluid overload. 4. Hypertension. 5. Diabetes. Continue IV antibodies as per Dr. Rodas, clindamycin, Azactam and vancomycin. The patient underwent hemodialysis this evening and had ultrafiltration about 3 liters net fluid removal. Post-dialysis, blood pressure was stable 136/52. We will follow with you. Thank you for allowing me to participate in your patient's care. We will evaluate in a.m. for possible extra dialysis if needed. Martin Ortiz MD
--- NOTE | 2017-04-13 18:27 | CP.PCM.PN ---
Subjective - Date & Time of Evaluation Date of Evaluation: 04/13/17 Time of Evaluation: 09:00 - Subjective Subjective: no fever less sob cultures thus far neg cont empiric rx Objective - Vital Signs/Intake and Output Vital Signs (last 24 hours): Temp Pulse Resp BP Pulse Ox 97.8 F 74 20 110/62 98 04/13/17 15:00 04/13/17 15:00 04/13/17 15:00 04/13/17 15:00 04/13/17 15:00 Intake and Output: 04/13/17 04/13/17 06:59 18:59 Intake Total 700 Balance 700 - Medications Medications: Current Medications Acetaminophen (Tylenol 325mg Tab) 325 mg PO Q4 PRN PRN Reason: Pain, Mild (1-3) Last Admin: 04/13/17 15:02 Dose: 325 mg Albuterol/Ipratropium (Duoneb 3 Mg/0.5 Mg (3 Ml) Ud) 3 ml INH RQ6 [facility] Last Admin: 04/13/17 13:16 Dose: 3 ml Enoxaparin Sodium (Lovenox) 30 mg SC DAILY [facility] Last Admin: 04/13/17 10:27 Dose: Not Given Epoetin Mario (Procrit) 4,000 unit IV TTS [facility] Dopamine HCl/Dextrose (Dopamine 400mg/250ml D5w) 400 mg in 250 mls @ 7.552 mls/ hr IV .Q24H PRN; Protocol; 2 MCG/KG/MIN PRN Reason: TITRATE PER MD ORDER Gentamicin Sulfate/Sodium Chloride (Gentamicin Iv 80 Mg Premix) 80 mg in 100 mls @ 100 mls/hr IVPB ONCE [facility] Aztreonam 1 gm/ Sodium (Chloride) 100 mls @ 200 mls/hr IVPB Q12H [facility] Last Admin: 04/13/17 06:39 Dose: 200 mls/hr Clindamycin Phosphate (Cleocin In Normal Saline Addvantage) 600 mg in 50 mls @ 100 mls/hr IVPB Q8H [facility] Last Admin: 04/13/17 17:43 Dose: 100 mls/hr Vancomycin/Sodium Chloride (Vancocin) 1 gm in 200 mls @ 133.333 mls/hr IVPB TTS [facility] Stop: 04/17/17 20:01 Last Admin: 04/12/17 21:25 Dose: 133.333 mls/hr Influenza Virus Vaccine (Afluria) 45 mcg IM .ONCE ONE Stop: 04/16/17 10:01 Lidocaine/Prilocaine (Emla) 0.5 gm TOP TTS [facility] Stop: 04/17/17 10:01 Pregabalin (Lyrica) 75 mg PO DAILY [facility] Last Admin: 04/13/17 10:22 Dose: 75 mg Sevelamer Carbonate (Renvela) 0.8 gm PO TIDCC [facility] Last Admin: 04/13/17 17:42 Dose: Not Given Tramadol HCl (Ultram) 50 mg PO Q8 PRN PRN Reason: Pain, moderate (4-7) Vitamin B Complex/Vit C/Folic Acid (Nephro-Renaldo) 1 tab PO 0800 [facility] Last Admin: 04/13/17 08:45 Dose: 1 tab Zolpidem Tartrate (Ambien) 10 mg PO HS PRN PRN Reason: Insomnia - Labs Labs: 04/11/17 09:46 04/11/17 09:46 PT 13.2 SECONDS (9.7-12.2) H 04/11/17 09:46 INR 1.2 04/11/17 09:46 APTT 41 SECONDS (21-34) H 04/11/17 09:46 - Constitutional Appears: Non-toxic - Head Exam Head Exam: NORMOCEPHALIC - Eye Exam Eye Exam: PERRL - ENT Exam ENT Exam: Mucous Membranes Dry - Neck Exam Neck Exam: absent: Lymphadenopathy - Respiratory Exam Respiratory Exam: Decreased Breath Sounds - Cardiovascular Exam Cardiovascular Exam: REGULAR RHYTHM - GI/Abdominal Exam GI & Abdominal Exam: Distended Assessment and Plan (1) Pneumonia Status: Acute (2) Respiratory distress Status: Acute (3) ESRD (end stage renal disease) on dialysis Status: Chronic (4) Anemia Status: Acute (5) COPD (chronic obstructive pulmonary disease) Status: Acute (6) Chronic kidney disease Status: Acute
--- NOTE | 2017-04-13 18:36 | CP.PCM.PN ---
Subjective - Date & Time of Evaluation Date of Evaluation: 04/13/17 Time of Evaluation: 18:35 - Subjective Subjective: pt is seen an d examined, follow up consult is dictated #[id number] for hd in am Objective - Vital Signs/Intake and Output Vital Signs (last 24 hours): Temp Pulse Resp BP Pulse Ox 97.8 F 74 20 110/62 98 04/13/17 15:00 04/13/17 15:00 04/13/17 15:00 04/13/17 15:00 04/13/17 15:00 Intake and Output: 04/13/17 04/13/17 06:59 18:59 Intake Total 700 Balance 700 - Medications Medications: Current Medications Acetaminophen (Tylenol 325mg Tab) 325 mg PO Q4 PRN PRN Reason: Pain, Mild (1-3) Last Admin: 04/13/17 15:02 Dose: 325 mg Albuterol/Ipratropium (Duoneb 3 Mg/0.5 Mg (3 Ml) Ud) 3 ml INH RQ6 [facility] Last Admin: 04/13/17 13:16 Dose: 3 ml Enoxaparin Sodium (Lovenox) 30 mg SC DAILY [facility] Last Admin: 04/13/17 10:27 Dose: Not Given Epoetin Mario (Procrit) 4,000 unit IV TTS [facility] Dopamine HCl/Dextrose (Dopamine 400mg/250ml D5w) 400 mg in 250 mls @ 7.552 mls/ hr IV .Q24H PRN; Protocol; 2 MCG/KG/MIN PRN Reason: TITRATE PER MD ORDER Gentamicin Sulfate/Sodium Chloride (Gentamicin Iv 80 Mg Premix) 80 mg in 100 mls @ 100 mls/hr IVPB ONCE [facility] Aztreonam 1 gm/ Sodium (Chloride) 100 mls @ 200 mls/hr IVPB Q12H [facility] Last Admin: 04/13/17 06:39 Dose: 200 mls/hr Clindamycin Phosphate (Cleocin In Normal Saline Addvantage) 600 mg in 50 mls @ 100 mls/hr IVPB Q8H [facility] Last Admin: 04/13/17 17:43 Dose: 100 mls/hr Vancomycin/Sodium Chloride (Vancocin) 1 gm in 200 mls @ 133.333 mls/hr IVPB TTS [facility] Stop: 04/17/17 20:01 Last Admin: 04/12/17 21:25 Dose: 133.333 mls/hr Influenza Virus Vaccine (Afluria) 45 mcg IM .ONCE ONE Stop: 04/16/17 10:01 Lidocaine/Prilocaine (Emla) 0.5 gm TOP TTS [facility] Stop: 04/17/17 10:01 Pregabalin (Lyrica) 75 mg PO DAILY [facility] Last Admin: 04/13/17 10:22 Dose: 75 mg Sevelamer Carbonate (Renvela) 0.8 gm PO TIDCC [facility] Last Admin: 04/13/17 17:42 Dose: Not Given Tramadol HCl (Ultram) 50 mg PO Q8 PRN PRN Reason: Pain, moderate (4-7) Vitamin B Complex/Vit C/Folic Acid (Nephro-Renaldo) 1 tab PO 0800 [facility] Last Admin: 04/13/17 08:45 Dose: 1 tab Zolpidem Tartrate (Ambien) 10 mg PO HS PRN PRN Reason: Insomnia - Labs Labs: 04/11/17 09:46 04/11/17 09:46 PT 13.2 SECONDS (9.7-12.2) H 04/11/17 09:46 INR 1.2 04/11/17 09:46 APTT 41 SECONDS (21-34) H 04/11/17 09:46
[2017-04-14] MEDS: Albuterol-Ipratrop 3 mg / 0.5 (3 ml) UD INH SCH ×4 (01:14→21:14)
[2017-04-14] MEDS: Clindamycin 600mg/50ml NS 600 MG/50 ML BAG IVPB SCH ×3 (01:59→17:03)
[2017-04-14] MEDS: Aztreonam 1 GM in Sodium Chloride 0.9% 100 ML IVPB SCH ×2 (05:53→17:03)
[2017-04-14] MEDS: Sevelamer Carb 0.8 gm/Packet PO SCH ×3 (07:46→17:04)
[2017-04-14] MEDS: Multivitamin Vitamin B Complex (Nephro-Vite) Tab PO SCH (07:46)
[2017-04-14] MEDS: Lidocaine/Prilocaine 2.5%-2.5% Cream (5 gm) TOP SCH (08:00)
[2017-04-14] MEDS: Enoxaparin 30 mg Syringe SC SCH (10:00)
[2017-04-14] MEDS: EPOETIN ALFA 4,000 UNIT/ML ML Dialysis IV SCH ×2 (10:00→12:37)
[2017-04-14] MEDS: Vancomycin 1 gm/NS 200 ml 1 GM/200 ML BAG IVPB SCH (10:00)
--- NOTE | 2017-04-14 14:09 | CP.PCM.PN ---
Subjective - Date & Time of Evaluation Date of Evaluation: 04/14/17 Time of Evaluation: 14:09 - Subjective Subjective: pt is seen and examined, follow up consult is dictated #[id number] s/p hd , uf 1.5 lit Objective - Vital Signs/Intake and Output Vital Signs (last 24 hours): Temp Pulse Resp BP Pulse Ox 97.5 F L 81 16 88/39 L 98 04/14/17 10:00 04/14/17 12:00 04/14/17 12:00 04/14/17 12:00 04/14/17 12:00 Intake and Output: 04/14/17 04/14/17 06:59 18:59 Intake Total 450 Balance 450 - Medications Medications: Current Medications Acetaminophen (Tylenol 325mg Tab) 325 mg PO Q4 PRN PRN Reason: Pain, Mild (1-3) Last Admin: 04/14/17 12:35 Dose: 325 mg Albuterol/Ipratropium (Duoneb 3 Mg/0.5 Mg (3 Ml) Ud) 3 ml INH RQ6 [facility] Last Admin: 04/14/17 13:18 Dose: Not Given Enoxaparin Sodium (Lovenox) 30 mg SC DAILY [facility] Last Admin: 04/14/17 10:00 Dose: Not Given Epoetin Mario (Procrit) 4,000 unit IV TTS [facility] Last Admin: 04/14/17 12:37 Dose: 4,000 unit Gentamicin Sulfate/Sodium Chloride (Gentamicin Iv 80 Mg Premix) 80 mg in 100 mls @ 100 mls/hr IVPB ONCE [facility] Aztreonam 1 gm/ Sodium (Chloride) 100 mls @ 200 mls/hr IVPB Q12H [facility] Last Admin: 04/14/17 05:53 Dose: 200 mls/hr Clindamycin Phosphate (Cleocin In Normal Saline Addvantage) 600 mg in 50 mls @ 100 mls/hr IVPB Q8H [facility] Last Admin: 04/14/17 10:00 Dose: Not Given Vancomycin/Sodium Chloride (Vancocin) 1 gm in 200 mls @ 133.333 mls/hr IVPB TTS [facility] Stop: 04/17/17 20:01 Last Admin: 04/14/17 10:00 Dose: Not Given Influenza Virus Vaccine (Afluria) 45 mcg IM .ONCE ONE Stop: 04/16/17 10:01 Lidocaine/Prilocaine (Emla) 0.5 gm TOP TTS [facility] Stop: 04/17/17 10:01 Last Admin: 04/14/17 08:00 Dose: Not Given Pregabalin (Lyrica) 75 mg PO DAILY [facility] Last Admin: 04/14/17 10:00 Dose: Not Given Sevelamer Carbonate (Renvela) 0.8 gm PO TIDCC [facility] Last Admin: 04/14/17 12:01 Dose: Not Given Tramadol HCl (Ultram) 50 mg PO Q8 PRN PRN Reason: Pain, moderate (4-7) Last Admin: 04/13/17 21:26 Dose: 50 mg Vitamin B Complex/Vit C/Folic Acid (Nephro-Renaldo) 1 tab PO 0800 [facility] Last Admin: 04/14/17 07:46 Dose: 1 tab Zolpidem Tartrate (Ambien) 10 mg PO HS PRN PRN Reason: Insomnia Last Admin: 04/13/17 21:26 Dose: 10 mg - Labs Labs: 04/11/17 09:46 04/11/17 09:46 PT 13.2 SECONDS (9.7-12.2) H 04/11/17 09:46 INR 1.2 04/11/17 09:46 APTT 41 SECONDS (21-34) H 04/11/17 09:46
--- NOTE | 2017-04-14 19:16 | PN ---
DATE: LOCATION: The patient is located in room 564, bed B. REQUESTED BY: Theodore Lucas MD. REASON FOR FOLLOWUP: End-stage renal disease, pneumonia, continuation of hemodialysis. SUBJECTIVE: Mr. Gonzales is a 66-year-old elderly [place] male with a history of longstanding hypertension, diabetes, coronary artery disease status post CABG, hyperlipidemia, CVA with left-sided weakness was admitted with shortness of breath and cough. The patient was found to have a right middle lobe and lower lobe pneumonia and started on IV antibiotics. The patient is feeling much better, less cough. No nausea, vomiting, diarrhea. No chest pain. No palpitation. No fever. No cough. The patient underwent hemodialysis today and had ultrafiltration of about 1.5 liters. The patient is hemodynamically stabilized. PHYSICAL EXAMINATION: GENERAL: Mr. Gonzales is a 66-year-old male, moderately built, moderately nourished, not in distress. VITAL SIGNS: Post dialysis blood pressure 124/46, pulse 80, respirations 18, temperature 97.6, saturation 100% post dialysis, weight is about 85 kilos, height is 5 feet 6 inches and weight is 205 pounds. HEENT: Pupils are normally reactive to light and accommodation. Conjunctivae pink. Sclerae anicteric. Tongue is moist. Trachea is midline. LUNGS: Symmetry on both sides bilaterally. Bilateral breath sounds present. Clear on auscultation. CARDIOVASCULAR: [place] at the fifth intercostal space, midclavicular line, S1 and S2 audible. No murmur. No gallop. The patient admits to scar pain from the previous CABG. ABDOMEN: Normal in appearance. Soft, tympanic, no guarding, no hepatosplenomegaly. CENTRAL NERVOUS SYSTEM: The patient is alert, awake, oriented x3. Sensory system is grossly within normal limits. Motor system normal on the right side. The patient has CVA with left hemiparesis. EXTREMITIES: No cyanosis, no clubbing. No edema in both lower extremities. LABORATORY DATA: No new labs are available for today. Accu-Chek 152 and 108 and blood cultures x2 negative day 2. Duplex scan lower extremity, report is pending. ASSESSMENT: In summary, Mr. Gonzales is a 66-year-old elderly obese [place] male with a history of hypertension, diabetes, hyperlipidemia, coronary artery disease status post coronary artery bypass graft, cerebrovascular accident with left-sided hemiparesis, end-stage renal disease and fluid overload was admitted with cough, shortness of breath and found to have right middle lobe and lower lobe infiltrates and also vascular congestion. 1. End stage renal disease, continue hemodialysis three times a week Sunday, and Sunday. Restrict fluids to 1 liter per day. 2. Hypertension, blood pressure is stable. The patient was hypertensive during dialysis, but post dialysis blood pressure is within normal limits. 3. Pneumonia right side lung, right middle lobe and lower lobe. Continue antibiotics as per infectious disease recommendation, Dr. Rodas. 4. Diabetes. 5. Fluid overload. The patient's fluid status seems optimized at this time. Consider repeat chest x-ray post dialysis. Thank you for allowing me to participate in your patient's care and the medications reviewed from the EMR. Continue Azactam, clindamycin, vancomycin, Renvela, Epogen, Nephro-Renaldo, Lyrica and Lovenox. Martin Ortiz MD
[2017-04-15] MEDS: Clindamycin 600mg/50ml NS 600 MG/50 ML BAG IVPB SCH ×3 (01:00→17:53)
[2017-04-15] MEDS: Albuterol-Ipratrop 3 mg / 0.5 (3 ml) UD INH SCH ×4 (01:33→19:10)
[2017-04-15] MEDS: Aztreonam 1 GM in Sodium Chloride 0.9% 100 ML IVPB SCH ×2 (05:03→17:10)
[2017-04-15] MEDS: Multivitamin Vitamin B Complex (Nephro-Vite) Tab PO SCH (08:31)
[2017-04-15] MEDS: Sevelamer Carb 0.8 gm/Packet PO SCH ×3 (08:31→17:53)
[2017-04-15] MEDS: Enoxaparin 30 mg Syringe SC SCH (10:26)
--- NOTE | 2017-04-15 14:08 | CP.PCM.PN ---
Subjective - Date & Time of Evaluation Date of Evaluation: 04/15/17 Time of Evaluation: 14:07 - Subjective Subjective: pt is seen and examined, follow up consult is dictated #[id number] Objective - Vital Signs/Intake and Output Vital Signs (last 24 hours): Temp Pulse Resp BP Pulse Ox 98.0 F 88 18 149/60 98 04/15/17 08:39 04/15/17 08:39 04/15/17 08:39 04/15/17 08:39 04/15/17 08:39 - Medications Medications: Current Medications Acetaminophen (Tylenol 325mg Tab) 325 mg PO Q4 PRN PRN Reason: Pain, Mild (1-3) Last Admin: 04/15/17 12:07 Dose: 325 mg Albuterol/Ipratropium (Duoneb 3 Mg/0.5 Mg (3 Ml) Ud) 3 ml INH RQ6 [facility] Last Admin: 04/15/17 13:47 Dose: 3 ml Enoxaparin Sodium (Lovenox) 30 mg SC DAILY [facility] Last Admin: 04/15/17 10:26 Dose: Not Given Epoetin Mario (Procrit) 4,000 unit IV TTS [facility] Last Admin: 04/14/17 12:37 Dose: 4,000 unit Gentamicin Sulfate/Sodium Chloride (Gentamicin Iv 80 Mg Premix) 80 mg in 100 mls @ 100 mls/hr IVPB ONCE BELL Aztreonam 1 gm/ Sodium (Chloride) 100 mls @ 200 mls/hr IVPB Q12H [facility] Last Admin: 04/15/17 05:03 Dose: 200 mls/hr Clindamycin Phosphate (Cleocin In Normal Saline Addvantage) 600 mg in 50 mls @ 100 mls/hr IVPB Q8H [facility] Last Admin: 04/15/17 10:19 Dose: 100 mls/hr Vancomycin/Sodium Chloride (Vancocin) 1 gm in 200 mls @ 133.333 mls/hr IVPB TTS [facility] Stop: 04/17/17 20:01 Last Admin: 04/14/17 10:00 Dose: Not Given Influenza Virus Vaccine (Afluria) 45 mcg IM .ONCE ONE Stop: 04/16/17 10:01 Lidocaine/Prilocaine (Emla) 0.5 gm TOP TTS [facility] Stop: 04/17/17 10:01 Last Admin: 04/14/17 08:00 Dose: Not Given Pregabalin (Lyrica) 75 mg PO DAILY [facility] Last Admin: 04/15/17 10:19 Dose: 75 mg Sevelamer Carbonate (Renvela) 0.8 gm PO TIDCC [facility] Last Admin: 04/15/17 12:06 Dose: 0.8 gm Tramadol HCl (Ultram) 50 mg PO Q8 PRN PRN Reason: Pain, moderate (4-7) Last Admin: 04/15/17 07:11 Dose: 50 mg Vitamin B Complex/Vit C/Folic Acid (Nephro-Renaldo) 1 tab PO 0800 [facility] Last Admin: 04/15/17 08:31 Dose: 1 tab Zolpidem Tartrate (Ambien) 10 mg PO HS PRN PRN Reason: Insomnia Last Admin: 04/14/17 21:43 Dose: 10 mg - Labs Labs: 04/11/17 09:46 04/11/17 09:46 PT 13.2 SECONDS (9.7-12.2) H 04/11/17 09:46 INR 1.2 04/11/17 09:46 APTT 41 SECONDS (21-34) H 04/11/17 09:46
--- NOTE | 2017-04-15 15:04 | CP.PCM.PN ---
Subjective - Date & Time of Evaluation Date of Evaluation: 04/15/17 Time of Evaluation: 08:00 - Subjective Subjective: awake alert less sob less fever less cough Objective - Vital Signs/Intake and Output Vital Signs (last 24 hours): Temp Pulse Resp BP Pulse Ox 98.0 F 87 18 149/60 98 04/15/17 08:39 04/15/17 09:00 04/15/17 08:39 04/15/17 08:39 04/15/17 08:39 - Medications Medications: Current Medications Acetaminophen (Tylenol 325mg Tab) 325 mg PO Q4 PRN PRN Reason: Pain, Mild (1-3) Last Admin: 04/15/17 12:07 Dose: 325 mg Albuterol/Ipratropium (Duoneb 3 Mg/0.5 Mg (3 Ml) Ud) 3 ml INH RQ6 [facility] Last Admin: 04/15/17 13:47 Dose: 3 ml Enoxaparin Sodium (Lovenox) 30 mg SC DAILY [facility] Last Admin: 04/15/17 10:26 Dose: Not Given Epoetin Mario (Procrit) 4,000 unit IV TTS [facility] Last Admin: 04/14/17 12:37 Dose: 4,000 unit Gentamicin Sulfate/Sodium Chloride (Gentamicin Iv 80 Mg Premix) 80 mg in 100 mls @ 100 mls/hr IVPB ONCE BELL Aztreonam 1 gm/ Sodium (Chloride) 100 mls @ 200 mls/hr IVPB Q12H [facility] Last Admin: 04/15/17 05:03 Dose: 200 mls/hr Clindamycin Phosphate (Cleocin In Normal Saline Addvantage) 600 mg in 50 mls @ 100 mls/hr IVPB Q8H [facility] Last Admin: 04/15/17 10:19 Dose: 100 mls/hr Vancomycin/Sodium Chloride (Vancocin) 1 gm in 200 mls @ 133.333 mls/hr IVPB TTS [facility] Stop: 04/17/17 20:01 Last Admin: 04/14/17 10:00 Dose: Not Given Influenza Virus Vaccine (Afluria) 45 mcg IM .ONCE ONE Stop: 04/16/17 10:01 Lidocaine/Prilocaine (Emla) 0.5 gm TOP TTS [facility] Stop: 04/17/17 10:01 Last Admin: 04/14/17 08:00 Dose: Not Given Pregabalin (Lyrica) 75 mg PO DAILY [facility] Last Admin: 04/15/17 10:19 Dose: 75 mg Sevelamer Carbonate (Renvela) 0.8 gm PO TIDCC [facility] Last Admin: 04/15/17 12:06 Dose: 0.8 gm Tramadol HCl (Ultram) 50 mg PO Q8 PRN PRN Reason: Pain, moderate (4-7) Last Admin: 04/15/17 07:11 Dose: 50 mg Vitamin B Complex/Vit C/Folic Acid (Nephro-Renaldo) 1 tab PO 0800 [facility] Last Admin: 04/15/17 08:31 Dose: 1 tab Zolpidem Tartrate (Ambien) 10 mg PO HS PRN PRN Reason: Insomnia Last Admin: 04/14/17 21:43 Dose: 10 mg - Labs Labs: 04/11/17 09:46 04/11/17 09:46 PT 13.2 SECONDS (9.7-12.2) H 04/11/17 09:46 INR 1.2 04/11/17 09:46 APTT 41 SECONDS (21-34) H 04/11/17 09:46 - Constitutional Appears: Non-toxic, Cachectic - Head Exam Head Exam: NORMOCEPHALIC - Eye Exam Eye Exam: PERRL. absent: Scleral icterus - ENT Exam ENT Exam: Mucous Membranes Dry, Normal Oropharynx - Neck Exam Neck Exam: absent: Lymphadenopathy - Respiratory Exam Respiratory Exam: Decreased Breath Sounds, Rhonchi - Cardiovascular Exam Cardiovascular Exam: REGULAR RHYTHM, +S1, +S2 - GI/Abdominal Exam GI & Abdominal Exam: Distended, Soft - Rectal Exam Rectal Exam: Deferred - Exam Exam: NORMAL INSPECTION - Extremities Exam Extremities Exam: absent: Pedal Edema - Back Exam Back Exam: absent: CVA tenderness (L), CVA tenderness (R) - Neurological Exam Neurological Exam: Alert, Awake, Oriented x3 - Psychiatric Exam Psychiatric exam: Depressed - Skin Skin Exam: Dry Assessment and Plan (1) Pneumonia Status: Acute (2) Respiratory distress Status: Acute (3) ESRD (end stage renal disease) on dialysis Status: Chronic (4) Anemia Status: Acute (5) COPD (chronic obstructive pulmonary disease) Status: Acute (6) Chronic kidney disease Status: Acute
--- NOTE | 2017-04-15 19:15 | CP.PCM.PN ---
Subjective - Date & Time of Evaluation Date of Evaluation: 04/13/17 Time of Evaluation: 08:05 - Subjective Subjective: feels a little better still coughing Objective - Vital Signs/Intake and Output Vital Signs (last 24 hours): Temp Pulse Resp BP Pulse Ox 97.5 F L 87 20 154/69 H 98 04/15/17 16:13 04/15/17 16:34 04/15/17 16:13 04/15/17 16:13 04/15/17 16:13 Intake and Output: 04/15/17 04/16/17 18:59 06:59 Intake Total 400 Balance 400 - Medications Medications: Current Medications Acetaminophen (Tylenol 325mg Tab) 325 mg PO Q4 PRN PRN Reason: Pain, Mild (1-3) Last Admin: 04/15/17 12:07 Dose: 325 mg Albuterol/Ipratropium (Duoneb 3 Mg/0.5 Mg (3 Ml) Ud) 3 ml INH RQ6 [facility] Last Admin: 04/15/17 19:10 Dose: 3 ml Enoxaparin Sodium (Lovenox) 30 mg SC DAILY [facility] Last Admin: 04/15/17 10:26 Dose: Not Given Epoetin Mario (Procrit) 4,000 unit IV TTS [facility] Last Admin: 04/14/17 12:37 Dose: 4,000 unit Gentamicin Sulfate/Sodium Chloride (Gentamicin Iv 80 Mg Premix) 80 mg in 100 mls @ 100 mls/hr IVPB ONCE [facility] Aztreonam 1 gm/ Sodium (Chloride) 100 mls @ 200 mls/hr IVPB Q12H [facility] Last Admin: 04/15/17 17:10 Dose: 200 mls/hr Clindamycin Phosphate (Cleocin In Normal Saline Addvantage) 600 mg in 50 mls @ 100 mls/hr IVPB Q8H [facility] Last Admin: 04/15/17 17:53 Dose: 100 mls/hr Vancomycin/Sodium Chloride (Vancocin) 1 gm in 200 mls @ 133.333 mls/hr IVPB TTS [facility] Stop: 04/17/17 20:01 Last Admin: 04/14/17 10:00 Dose: Not Given Influenza Virus Vaccine (Afluria) 45 mcg IM .ONCE ONE Stop: 04/16/17 10:01 Lidocaine/Prilocaine (Emla) 0.5 gm TOP TTS [facility] Stop: 04/17/17 10:01 Last Admin: 04/14/17 08:00 Dose: Not Given Pregabalin (Lyrica) 75 mg PO DAILY [facility] Last Admin: 04/15/17 10:19 Dose: 75 mg Sevelamer Carbonate (Renvela) 0.8 gm PO TIDCC [facility] Last Admin: 04/15/17 17:53 Dose: 0.8 gm Tramadol HCl (Ultram) 50 mg PO Q8 PRN PRN Reason: Pain, moderate (4-7) Last Admin: 04/15/17 07:11 Dose: 50 mg Vitamin B Complex/Vit C/Folic Acid (Nephro-Renaldo) 1 tab PO 0800 [facility] Last Admin: 04/15/17 08:31 Dose: 1 tab Zolpidem Tartrate (Ambien) 10 mg PO HS PRN PRN Reason: Insomnia Last Admin: 04/14/17 21:43 Dose: 10 mg - Labs Labs: 04/11/17 09:46 04/11/17 09:46 PT 13.2 SECONDS (9.7-12.2) H 04/11/17 09:46 INR 1.2 04/11/17 09:46 APTT 41 SECONDS (21-34) H 04/11/17 09:46 - Constitutional Appears: Toxic - Head Exam Head Exam: NORMAL INSPECTION - Eye Exam Eye Exam: absent: Scleral icterus - ENT Exam ENT Exam: Mucous Membranes Moist - Neck Exam Neck Exam: Full ROM - Respiratory Exam Respiratory Exam: Rales, Rhonchi - GI/Abdominal Exam GI & Abdominal Exam: Soft. absent: Tenderness - Extremities Exam Extremities Exam: Pedal Edema Assessment and Plan - Assessment and Plan (Free Text) Assessment: Pneumonia ASA CAD T2dm ESRD CVA by hx Plan: Cont antibiotic ESRD Nebulizer treatment
--- NOTE | 2017-04-15 19:21 | CP.PCM.PN ---
Subjective - Date & Time of Evaluation Date of Evaluation: 04/14/17 Time of Evaluation: 08:40 - Subjective Subjective: less sob no fever weak Objective - Vital Signs/Intake and Output Vital Signs (last 24 hours): Temp Pulse Resp BP Pulse Ox 97.5 F L 87 20 154/69 H 98 04/15/17 16:13 04/15/17 16:34 04/15/17 16:13 04/15/17 16:13 04/15/17 16:13 Intake and Output: 04/15/17 04/16/17 18:59 06:59 Intake Total 400 Balance 400 - Medications Medications: Current Medications Acetaminophen (Tylenol 325mg Tab) 325 mg PO Q4 PRN PRN Reason: Pain, Mild (1-3) Last Admin: 04/15/17 12:07 Dose: 325 mg Albuterol/Ipratropium (Duoneb 3 Mg/0.5 Mg (3 Ml) Ud) 3 ml INH RQ6 [facility] Last Admin: 04/15/17 19:10 Dose: 3 ml Enoxaparin Sodium (Lovenox) 30 mg SC DAILY [facility] Last Admin: 04/15/17 10:26 Dose: Not Given Epoetin Mario (Procrit) 4,000 unit IV TTS [facility] Last Admin: 04/14/17 12:37 Dose: 4,000 unit Gentamicin Sulfate/Sodium Chloride (Gentamicin Iv 80 Mg Premix) 80 mg in 100 mls @ 100 mls/hr IVPB ONCE [facility] Aztreonam 1 gm/ Sodium (Chloride) 100 mls @ 200 mls/hr IVPB Q12H [facility] Last Admin: 04/15/17 17:10 Dose: 200 mls/hr Clindamycin Phosphate (Cleocin In Normal Saline Addvantage) 600 mg in 50 mls @ 100 mls/hr IVPB Q8H [facility] Last Admin: 04/15/17 17:53 Dose: 100 mls/hr Vancomycin/Sodium Chloride (Vancocin) 1 gm in 200 mls @ 133.333 mls/hr IVPB TTS [facility] Stop: 04/17/17 20:01 Last Admin: 04/14/17 10:00 Dose: Not Given Influenza Virus Vaccine (Afluria) 45 mcg IM .ONCE ONE Stop: 04/16/17 10:01 Lidocaine/Prilocaine (Emla) 0.5 gm TOP TTS [facility] Stop: 04/17/17 10:01 Last Admin: 04/14/17 08:00 Dose: Not Given Pregabalin (Lyrica) [address] [facility] Last Admin: 04/15/17 10:19 Dose: 75 mg Sevelamer Carbonate (Renvela) 0.[address] [facility] Last Admin: 04/15/17 17:53 Dose: 0.8 gm Tramadol HCl (Ultram) 50 mg PO Q8 PRN PRN Reason: Pain, moderate (4-7) Last Admin: 04/15/17 07:11 Dose: 50 mg Vitamin B Complex/Vit C/Folic Acid (Nephro-Renaldo) 1 tab PO 0800 [facility] Last Admin: 04/15/17 08:31 Dose: 1 tab Zolpidem Tartrate (Ambien) 10 mg PO HS PRN PRN Reason: Insomnia Last Admin: 04/14/17 21:43 Dose: 10 mg - Labs Labs: 04/11/17 09:46 04/11/17 09:46 PT 13.2 SECONDS (9.7-12.2) H 04/11/17 09:46 INR 1.2 04/11/17 09:46 APTT 41 SECONDS (21-34) H 04/11/17 09:46 - Constitutional Appears: Non-toxic, Chronically Ill - Eye Exam Eye Exam: absent: Scleral icterus - ENT Exam ENT Exam: Mucous Membranes Moist - Neck Exam Neck Exam: Full ROM, Lymphadenopathy - Respiratory Exam Respiratory Exam: Decreased Breath Sounds - Cardiovascular Exam Cardiovascular Exam: REGULAR RHYTHM - GI/Abdominal Exam GI & Abdominal Exam: Soft. absent: Tenderness - Extremities Exam Extremities Exam: Pedal Edema. absent: Calf Tenderness - Neurological Exam Neurological Exam: Alert, Oriented x3 Neuro motor strength exam: Left Upper Extremity: 2/1, Left Lower Extremity: 2/1 Assessment and Plan - Assessment and Plan (Free Text) Assessment: Pneumonia ESRD CHF T2dm CAD Plan: Cont Abtx Cont HD
--- NOTE | 2017-04-15 19:26 | CP.PCM.PN ---
Subjective - Date & Time of Evaluation Date of Evaluation: 04/15/17 Time of Evaluation: 11:10 - Subjective Subjective: less sob less cough afebrile Objective - Vital Signs/Intake and Output Vital Signs (last 24 hours): Temp Pulse Resp BP Pulse Ox 97.5 F L 87 20 154/69 H 98 04/15/17 16:13 04/15/17 16:34 04/15/17 16:13 04/15/17 16:13 04/15/17 16:13 Intake and Output: 04/15/17 04/16/17 18:59 06:59 Intake Total 400 Balance 400 - Medications Medications: Current Medications Acetaminophen (Tylenol 325mg Tab) 325 mg PO Q4 PRN PRN Reason: Pain, Mild (1-3) Last Admin: 04/15/17 12:07 Dose: 325 mg Albuterol/Ipratropium (Duoneb 3 Mg/0.5 Mg (3 Ml) Ud) 3 ml INH RQ6 [facility] Last Admin: 04/15/17 19:10 Dose: 3 ml Enoxaparin Sodium (Lovenox) 30 mg SC DAILY [facility] Last Admin: 04/15/17 10:26 Dose: Not Given Epoetin Mario (Procrit) 4,000 unit IV TTS [facility] Last Admin: 04/14/17 12:37 Dose: 4,000 unit Gentamicin Sulfate/Sodium Chloride (Gentamicin Iv 80 Mg Premix) 80 mg in 100 mls @ 100 mls/hr IVPB ONCE [facility] Aztreonam 1 gm/ Sodium (Chloride) 100 mls @ 200 mls/hr IVPB Q12H [facility] Last Admin: 04/15/17 17:10 Dose: 200 mls/hr Clindamycin Phosphate (Cleocin In Normal Saline Addvantage) 600 mg in 50 mls @ 100 mls/hr IVPB Q8H [facility] Last Admin: 04/15/17 17:53 Dose: 100 mls/hr Vancomycin/Sodium Chloride (Vancocin) 1 gm in 200 mls @ 133.333 mls/hr IVPB TTS [facility] Stop: 04/17/17 20:01 Last Admin: 04/14/17 10:00 Dose: Not Given Influenza Virus Vaccine (Afluria) 45 mcg IM .ONCE ONE Stop: 04/16/17 10:01 Lidocaine/Prilocaine (Emla) 0.5 gm TOP TTS [facility] Stop: 04/17/17 10:01 Last Admin: 04/14/17 08:00 Dose: Not Given Pregabalin (Lyrica) 75 mg PO DAILY [facility] Last Admin: 04/15/17 10:19 Dose: 75 mg Sevelamer Carbonate (Renvela) 0.8 gm PO TIDCC [facility] Last Admin: 04/15/17 17:53 Dose: 0.8 gm Tramadol HCl (Ultram) 50 mg PO Q8 PRN PRN Reason: Pain, moderate (4-7) Last Admin: 04/15/17 07:11 Dose: 50 mg Vitamin B Complex/Vit C/Folic Acid (Nephro-Renaldo) 1 tab PO 0800 [facility] Last Admin: 04/15/17 08:31 Dose: 1 tab Zolpidem Tartrate (Ambien) 10 mg PO HS PRN PRN Reason: Insomnia Last Admin: 04/14/17 21:43 Dose: 10 mg - Labs Labs: 04/11/17 09:46 04/11/17 09:46 PT 13.2 SECONDS (9.7-12.2) H 04/11/17 09:46 INR 1.2 04/11/17 09:46 APTT 41 SECONDS (21-34) H 04/11/17 09:46 - Constitutional Appears: Non-toxic, Chronically Ill - Eye Exam Eye Exam: absent: Scleral icterus - ENT Exam ENT Exam: Mucous Membranes Moist - Neck Exam Neck Exam: Full ROM - Respiratory Exam Respiratory Exam: Rales, Rhonchi - Cardiovascular Exam Cardiovascular Exam: REGULAR RHYTHM - GI/Abdominal Exam GI & Abdominal Exam: Soft. absent: Tenderness - Extremities Exam Extremities Exam: Pedal Edema - Neurological Exam Neurological Exam: Alert, Oriented x3 Assessment and Plan - Assessment and Plan (Free Text) Assessment: Pneumonia, resolving CHF, improving T2dm CAD HTN Plan: Cont abtx Cont nebulizer tx labs
[2017-04-15] MEDS ORDERED: Acetylcysteine 20% Inhal Soln (4ml) INH SCH (22:30)
[2017-04-16] MEDS: Clindamycin 600mg/50ml NS 600 MG/50 ML BAG IVPB SCH ×3 (01:01→18:52)
[2017-04-16] MEDS: Albuterol-Ipratrop 3 mg / 0.5 (3 ml) UD INH SCH ×4 (01:38→19:41)
[2017-04-16] MEDS: Aztreonam 1 GM in Sodium Chloride 0.9% 100 ML IVPB SCH ×2 (05:17→17:05)
[2017-04-16] MEDS: Acetylcysteine 20% Inhal Soln (4ml) INH SCH ×3 (08:02→19:41)
--- NOTE | 2017-04-16 08:13 | PN ---
FOLLOWUP RENAL CONSULTATION DATE: LOCATION: The patient is located in room 564, bed B. REQUESTING PHYSICIAN: Theodore Lucas MD REASON FOR RENAL FOLLOWUP: End-stage renal disease, continuation of the hemodialysis. HISTORY OF PRESENT ILLNESS: Mr. Gonzales is a 66-year-old elderly male with a past medical history significant for longstanding hypertension, diabetes, coronary artery disease, status post CABG, hyperlipidemia, end-stage renal disease, CVA with left hemiparesis, was admitted with chief complaints of shortness of breath, cough and the patient is being treated for pneumonia and CHF. The patient is feeling better, not in acute distress, less cough. No chest pain, no palpitation, and no fever. No nausea, no vomiting, and no diarrhea. PHYSICAL EXAMINATION VITAL SIGNS: Blood pressure 110/62, pulse 74, respirations 20, temperature 97.8, saturation 98%, height 5 feet 6 inches and weight is 205 pounds. GENERAL: Mr. Gonzales is a 66-year-old male, obese, well built, well nourished, not in distress. HEENT: Pupils are normal, reactive to light and accommodation. Conjunctivae are pink. Sclerae are anicteric. Tongue is moist. Trachea is midline. LUNGS: Symmetric on both sides. Bilateral breath sounds present, Occasional basal crackles present, right side more than the left. CARDIOVASCULAR SYSTEM: [place] at the fifth intercostal space, midclavicular line. S1 and S2 audible. No murmur or gallop. The patient has a midline scar present from the previous CABG. ABDOMEN: Normal in appearance. Soft and tympanic. No guarding. No rigidity. No hepatosplenomegaly. CENTRAL NERVOUS SYSTEM: The patient is alert, awake, and oriented x3. Sensory system is grossly within normal limit. Motor, the patient has left-sided weakness, right side is normal. EXTREMITIES: No cyanosis, no clubbing. The patient has 1+ to 2+ edema in both lower extremities, right more than the left. CURRENT MEDICATIONS: Includes as follows, Ambien 10 mg at bedtime, Azactam 1 g q. 12 hours, clindamycin 600 mg IV q. 8 hours, DuoNeb inhaler, lidocaine local cream for diarrhea, fistula site, gentamicin 80 mg IV x1 dose, Lovenox 30 mg subcutaneous daily, Lyrica 75 mg p.o. daily, Nephro-Renaldo one tablet daily, Epogen 4000 units 3 times a week, Renvela 800 mg p.o. t.i.d., Tylenol and also tramadol 50 mg p.o. q. 8 hours, and vancomycin 1 g 3 times a week, Sunday, and Sunday. LABORATORY DATA: Include as follows, Accu-Chek 73, 100 and 133 and blood culture x2, negative day#2. ASSESSMENT AND PLAN: In summary, Mr. Gonzales is a 66-year-old male with a past medical history significant for hypertension, diabetes, end-stage renal disease, coronary artery disease, status post coronary artery bypass graft, cerebrovascular accident with left-sided hemiparesis, was admitted with cough, shortness of breath and being treated for pneumonia. 1. End-stage renal disease, continue hemodialysis three times a week, Sunday, and Sunday. 2. Pneumonia. 3. Rule out congestive heart failure. 4. Hypertension. 5. Diabetes. 6. Coronary artery disease, status post coronary artery bypass graft and stable. Continue IV antibiotics as per Dr. Rodas, Azactam and vancomycin and consider to repeat chest x-ray. Restrict the fluids to 1 liter per day. We will try to ultrafiltrate as much as the patient can tolerate in a.m. We will follow with you. Thank you for allowing me to participate in your patient's care. Martin Ortiz MD
--- NOTE | 2017-04-16 08:29 | PN ---
FOLLOWUP RENAL CONSULTATION DATE: LOCATION: The patient is located in room 564. REQUESTING PHYSICIAN: Theodore Lucas MD REASON FOR FOLLOWUP: End-stage renal disease, pneumonia, CHF. SUBJECTIVE: Mr. Gonzales is 66 years old elderly obese [place] male with a history of longstanding hypertension, diabetes, hyperlipidemia, coronary artery disease, status post CABG, end-stage renal disease, on hemodialysis 3 times a week Sunday, and Sunday, was admitted with cough, shortness of breath and status post hemodialysis yesterday, had ultrafiltration about 1.5 liters. The patient is feeling much better, no wheezing, less cough, no chest pain, no palpitation, no fever, no edema of the legs. Feeling much better since admission. PHYSICAL EXAMINATION GENERAL: Mr. Gonzales is 66 years old elderly male, moderately built, moderately nourished, not in distress. VITAL SIGNS: Blood pressure 149/60, pulse 88, respirations 18, temperature 98, saturation 98%. Height 5 feet 6 inches, weight is 205 pounds. HEENT: Pupils are normal and reactive to light and accommodation. Conjunctivae pink. Sclerae anicteric. Tongue is moist. Trachea is midline. CVS: [place] at the fifth intercostal space, midclavicular line, S1 and S2 audible. No murmur or gallop. The patient admits to scar present from the previous CABG. LUNGS: Symmetric on both sides. Bilateral breath sounds present. Clear on auscultation. ABDOMEN: Slightly protuberant, soft, tympanic. No guarding. No rigidity. No hepatosplenomegaly. BANK ACCOUNTANT: The patient is alert, awake, and oriented x3. Sensory system is grossly within normal limit. Motor system, left-sided weakness. EXTREMITIES: No cyanosis, no clubbing or edema. LABORATORY DATA: No new labs are available for today as of 04/15/2017, Accu-Cheks 92 and 99. CURRENT MEDICATIONS: Include as follows: Ambien 10 mg at bedtime, Azactam 1 g IV piggyback q. 12 hours, clindamycin 600 mg q. 8 hours, DuoNeb inhaler, EMLA cream, gentamicin one dose on 04/11/2017, Lovenox 30 mg subcutaneously daily, Lyrica 75 p.o. daily, Nephro-Renaldo 1 tablet daily, Procrit IV Sunday, and Sunday, Renvela 800 mg p.o. t.i.d., tramadol 50 mg p.o. q. 8 hours, and vancomycin 1 g 3 times a week. ASSESSMENT AND PLAN: In summary, Mr. Gonzales is 66 years old obese [place] male with a history of hypertension, diabetes, coronary artery disease, status post coronary artery bypass graft, hyperlipidemia, cerebrovascular accident with left-sided weakness, end-stage renal disease, on hemodialysis with cough and shortness of breath, being treated for pneumonia and congestive heart failure. 1. End-stage renal disease. Continue hemodialysis 3 times a week, Sunday, , and Sunday. 2. Hypertension. Blood pressure is stable, status post hypertension during dialysis. Now, blood pressure is stable. 3. Pneumonia. 4. Fluid overload. Now, the patient is in euvolemic state. PLAN: Continue IV antibiotics as per Dr. Rodas, Azactam, clindamycin and vancomycin. Repeat chest x-ray in a.m. Check CBC, BMP, and phosphorus in a.m. Thank you for allowing me to participate in your patient's care and restrict fluids to 1 liter per day, and discussed with the patient and the patient's family at bedside. Continue phosphate binders and check phosphorus in a.m. Martin Ortiz MD [email or web address]
[2017-04-16 08:31] LABS: BASO # 0.1 K/uL (0.0-0.2); BASO % 0.9 % (0.0-2.0); EOS % 14.6 % (0.0-4.0); HEMATOCRIT 31.3 % (35.0-51.0); LYMPH # 0.5 K/uL (1.0-4.3); MEAN CELL VOLUME 96.5 fL (80.0-94.0); MEAN CORPUSCULAR HEMOGLOBIN 30.4 pg (27.0-31.0); MEAN CORPUSCULAR HGB CONC 31.5 g/dL (33.0-37.0); MONO # 0.6 K/uL (0.0-0.8); PLATELET COUNT 142 K/uL (130-400); RED CELL DISTRIBUTION WIDTH 14.9 % (11.5-14.5); WHITE BLOOD COUNT 6.6 K/uL (4.8-10.8)
[2017-04-16 08:43] LABS: POTASSIUM 5.7 mmol/L (3.6-5.2)
[2017-04-16 08:45] LABS: ALB/GLOB RATIO 0.9 (1.0-2.1); BILIRUBIN,TOTAL 0.7 mg/dL (0.2-1.3)
[2017-04-16 08:46] LABS: PHOSPHOROUS 5.5 mg/dL (2.5-4.5)
[2017-04-16] MEDS: Sevelamer Carb 0.8 gm/Packet PO SCH ×4 (08:58→17:06)
[2017-04-16] MEDS: Multivitamin Vitamin B Complex (Nephro-Vite) Tab PO SCH (08:58)
[2017-04-16] MEDS: Enoxaparin 30 mg Syringe SC SCH (09:03)
[2017-04-16 09:55] LABS: EOSINOPHIL 14 % (0-4); NEUTROPHIL 70 % (50-75); TOTAL CELLS COUNTED 100
[2017-04-16] MEDS ORDERED: Influenza Virus Vaccine (Afluria Inactive dont use ) IM ONE (10:00)
--- NOTE | 2017-04-16 10:57 | CP.PCM.PN ---
Subjective - Date & Time of Evaluation Date of Evaluation: 04/16/17 Time of Evaluation: 07:00 - Subjective Subjective: rx renewed iv rx to cont pulm follow up Objective - Vital Signs/Intake and Output Vital Signs (last 24 hours): Temp Pulse Resp BP Pulse Ox 97.5 F L 82 22 133/55 L 98 04/16/17 08:00 04/16/17 08:00 04/16/17 08:00 04/16/17 08:00 04/16/17 08:00 Intake and Output: 04/16/17 04/16/17 06:59 18:59 Intake Total 1000 Balance 1000 - Medications Medications: Current Medications Acetaminophen (Tylenol 325mg Tab) 650 mg PO Q4 PRN PRN Reason: Pain, moderate (4-7) Last Admin: 04/16/17 03:00 Dose: 650 mg Acetylcysteine (Acetylcysteine 20%) 4 ml INH RQ6 BELL Last Admin: 04/16/17 08:02 Dose: 4 ml Albuterol/Ipratropium (Duoneb 3 Mg/0.5 Mg (3 Ml) Ud) 3 ml INH RQ6 BELL Last Admin: 04/16/17 08:02 Dose: 3 ml Enoxaparin Sodium (Lovenox) 30 mg SC DAILY [facility] Last Admin: 04/16/17 09:03 Dose: Not Given Epoetin Mario (Procrit) 4,000 unit IV TTS BELL Last Admin: 04/14/17 12:37 Dose: 4,000 unit Gentamicin Sulfate/Sodium Chloride (Gentamicin Iv 80 Mg Premix) 80 mg in 100 mls @ 100 mls/hr IVPB ONCE [facility] Aztreonam 1 gm/ Sodium (Chloride) 100 mls @ 200 mls/hr IVPB Q12H [facility] Last Admin: 04/16/17 05:17 Dose: 200 mls/hr Clindamycin Phosphate (Cleocin In Normal Saline Addvantage) 600 mg in 50 mls @ 100 mls/hr IVPB Q8H [facility] Last Admin: 04/16/17 09:04 Dose: 100 mls/hr Vancomycin/Sodium Chloride (Vancocin) 1 gm in 200 mls @ 133.333 mls/hr IVPB TTS [facility] Stop: 04/17/17 20:01 Last Admin: 04/14/17 10:00 Dose: Not Given Lidocaine/Prilocaine (Emla) 0.5 gm TOP TTS [facility] Stop: 04/17/17 10:01 Last Admin: 04/14/17 08:00 Dose: Not Given Pregabalin (Lyrica) 75 mg PO DAILY [facility] Last Admin: 04/16/17 09:02 Dose: 75 mg Sevelamer Carbonate (Renvela) 0.8 gm PO TIDCC [facility] Last Admin: 04/16/17 08:58 Dose: 0.8 gm Tramadol HCl (Ultram) 50 mg PO Q8 PRN PRN Reason: Pain, moderate (4-7) Last Admin: 04/15/17 23:40 Dose: 50 mg Vitamin B Complex/Vit C/Folic Acid (Nephro-Renaldo) 1 tab PO 0800 [facility] Last Admin: 04/16/17 08:58 Dose: 1 tab Zolpidem Tartrate (Ambien) 10 mg PO HS PRN PRN Reason: Insomnia Last Admin: 04/14/17 21:43 Dose: 10 mg - Labs Labs: 04/16/17 08:25 04/16/17 08:25 PT 13.2 SECONDS (9.7-12.2) H 04/11/17 09:46 INR 1.2 04/11/17 09:46 APTT 41 SECONDS (21-34) H 04/11/17 09:46 - Constitutional Appears: Non-toxic, Chronically Ill - Head Exam Head Exam: NORMOCEPHALIC - Eye Exam Eye Exam: PERRL. absent: Scleral icterus - ENT Exam ENT Exam: Mucous Membranes Dry - Neck Exam Neck Exam: absent: Lymphadenopathy - Respiratory Exam Respiratory Exam: Decreased Breath Sounds - Cardiovascular Exam Cardiovascular Exam: REGULAR RHYTHM, +S1, +S2 - GI/Abdominal Exam GI & Abdominal Exam: Distended, Soft - Rectal Exam Rectal Exam: Deferred - Exam Exam: NORMAL INSPECTION Assessment and Plan (1) Pneumonia Status: Acute (2) Respiratory distress Status: Acute (3) ESRD (end stage renal disease) on dialysis Status: Chronic (4) Anemia Status: Acute (5) COPD (chronic obstructive pulmonary disease) Status: Acute (6) Chronic kidney disease Status: Acute
--- NOTE | 2017-04-16 11:39 | VASCLAB ---
PROCEDURE: Lower Extremity Venous Duplex Exam. HISTORY: Edema PRIORS: None. TECHNIQUE: Bilateral common femoral, femoral, popliteal and posterior tibial, peroneal and great saphenous veins were evaluated. Flow was assessed with color Doppler, compressibility, assessment of phasic flow and augmentation response. Report prepared by FREEMAN Barba FINDINGS: RIGHT: 1. Common Femoral Vein: 1.1. Compressibility - Fully compressible: Thrombus - None : Flow - Phasic: Augmentation -Normal: Reflux - None. 2. Femoral Vein: 2.1. Compressibility - Fully compressible: Thrombus - None : Flow - Phasic: Augmentation -Normal: Reflux - None. 3. Popliteal Vein: 3.1. Compressibility - Fully compressible: Thrombus - None : Flow - Phasic: Augmentation -Normal: Reflux - None. 4. Posterior Tibial Vein: 4.1. Compressibility - Fully compressible: Thrombus - None: Flow - Phasic: Augmentation -Normal: Reflux - None. 5. Peroneal Vein: 5.1. Unable to visualize 6. Great Saphenous Vein: 6.1. Compressibility - Fully compressible: Thrombus - None: Flow - Phasic: Augmentation - Normal: Reflux - None. LEFT: 1. Common Femoral Vein: 1.1. Compressibility - Fully compressible: Thrombus - None: Flow - Phasic: Augmentation -Normal: Reflux - None. 2. Femoral Vein: 2.1. Compressibility - Fully compressible: Thrombus - None: Flow - Phasic: Augmentation -Normal: Reflux - None. 3. Popliteal Vein: 3.1. Compressibility - Fully compressible: Thrombus - None : Flow - Phasic: Augmentation -Normal: Reflux - None. 4. Posterior Tibial Vein: 4.1. Compressibility - Fully compressible: Thrombus - None: Flow - Phasic: Augmentation -Normal: Reflux - None. 5. Peroneal Vein: 5.1. Unable to visualize 6. Great Saphenous Vein: 6.1. Previously removed for CABG OTHER FINDINGS: Unable to visualize bilateral peroneal veins, due to swelling. IMPRESSION: Right: No evidence of deep or superficial vein thrombosis of the right lower extremity, for the imaged veins. Normal valve function noted of the right side. Left: No evidence of deep or superficial vein thrombosis of the left lower extremity, for the imaged veins.Normal valve function noted of the left side.
--- NOTE | 2017-04-16 15:47 | RAD ---
PROCEDURE: CHEST RADIOGRAPH, 1 VIEW HISTORY: r/o chf vs pneumonia COMPARISON: 04/11/2017 FINDINGS: LUNGS: Increasing opacity at left base and left perihilar region. Patchy opacity at right base. The opacities have increased in extent compared to prior examination. . PLEURA: Small left pleural effusion. No evidence of right pleural effusion. No pneumothorax. CARDIOVASCULAR: CABG. Normal heart size. Mild congestive change. OSSEOUS STRUCTURES: No significant abnormalities. VISUALIZED UPPER ABDOMEN: Normal. OTHER FINDINGS: Left axillary vascular stent. IMPRESSION: Nonspecific findings concerning for congestive heart failure/ pulmonary edema versus pneumonia.
[2017-04-16] MEDS ORDERED: Sod Polystyrene Sulf 15 gm/60 ml Susp PO ONE (19:13)
--- NOTE | 2017-04-16 19:14 | CP.PCM.PN ---
Subjective - Date & Time of Evaluation Date of Evaluation: 04/16/17 Time of Evaluation: 19:14 - Subjective Subjective: pt is seen and examined, follow up consult is dictated #[id number] Objective - Vital Signs/Intake and Output Vital Signs (last 24 hours): Temp Pulse Resp BP Pulse Ox 97.9 F 90 22 141/61 97 04/16/17 15:10 04/16/17 15:49 04/16/17 15:10 04/16/17 15:10 04/16/17 15:10 Intake and Output: 04/16/17 04/17/17 18:59 06:59 Intake Total 700 Balance 700 - Medications Medications: Current Medications Acetaminophen (Tylenol 325mg Tab) 650 mg PO Q4 PRN PRN Reason: Pain, moderate (4-7) Last Admin: 04/16/17 03:00 Dose: 650 mg Acetylcysteine (Acetylcysteine 20%) 4 ml INH RQ6 BELL Last Admin: 04/16/17 13:44 Dose: 4 ml Albuterol/Ipratropium (Duoneb 3 Mg/0.5 Mg (3 Ml) Ud) 3 ml INH RQ6 BE[facility] Last Admin: 04/16/17 13:44 Dose: 3 ml Enoxaparin Sodium (Lovenox) 30 mg SC DAILY [facility] Last Admin: 04/16/17 09:03 Dose: Not Given Epoetin Mario (Procrit) 4,000 unit IV TTS [facility] Last Admin: 04/14/17 12:37 Dose: 4,000 unit Gentamicin Sulfate/Sodium Chloride (Gentamicin Iv 80 Mg Premix) 80 mg in 100 mls @ 100 mls/hr IVPB ONCE [facility] Aztreonam 1 gm/ Sodium (Chloride) 100 mls @ 200 mls/hr IVPB Q12H [facility] Last Admin: 04/16/17 17:05 Dose: 200 mls/hr Clindamycin Phosphate (Cleocin In Normal Saline Addvantage) 600 mg in 50 mls @ 100 mls/hr IVPB Q8H [facility] Last Admin: 04/16/17 18:52 Dose: 100 mls/hr Vancomycin/Sodium Chloride (Vancocin) 1 gm in 200 mls @ 133.333 mls/hr IVPB TTS [facility] Stop: 04/17/17 20:01 Last Admin: 04/14/17 10:00 Dose: Not Given Lidocaine/Prilocaine (Emla) 0.5 gm TOP TTS [facility] Stop: 04/17/17 10:01 Last Admin: 04/14/17 08:00 Dose: Not Given Pregabalin (Lyrica) 75 mg PO DAILY [facility] Last Admin: 04/16/17 09:02 Dose: 75 mg Sevelamer Carbonate (Renvela) 0.8 gm PO TIDCC [facility] Last Admin: 04/16/17 17:06 Dose: 0.8 gm Tramadol HCl (Ultram) 50 mg PO Q8 PRN PRN Reason: Pain, moderate (4-7) Last Admin: 04/15/17 23:40 Dose: 50 mg Vitamin B Complex/Vit C/Folic Acid (Nephro-Renaldo) 1 tab PO 0800 [facility] Last Admin: 04/16/17 08:58 Dose: 1 tab Zolpidem Tartrate (Ambien) 10 mg PO HS PRN PRN Reason: Insomnia Last Admin: 04/14/17 21:43 Dose: 10 mg - Labs Labs: 04/16/17 08:25 04/16/17 08:25 PT 13.2 SECONDS (9.7-12.2) H 04/11/17 09:46 INR 1.2 04/11/17 09:46 APTT 41 SECONDS (21-34) H 04/11/17 09:46
--- NOTE | 2017-04-16 22:31 | CARD ---
APPROVED REPORT EKG Measurement Heart [id number] <Conclusion> Sinus rhythm LAHB Right bundle branch block Abnormal ECG
[2017-04-17] MEDS: Albuterol-Ipratrop 3 mg / 0.5 (3 ml) UD INH SCH (01:22)
[2017-04-17] MEDS: Acetylcysteine 20% Inhal Soln (4ml) INH SCH ×4 (01:22→20:24)
[2017-04-17] MEDS: Clindamycin 600mg/50ml NS 600 MG/50 ML BAG IVPB SCH ×3 (02:00→18:00)
[2017-04-17] MEDS: Aztreonam 1 GM in Sodium Chloride 0.9% 100 ML IVPB SCH ×2 (06:18→18:00)
[2017-04-17] MEDS: Ferric Sodium Gluconat Complex 62.5 mg/5 ml Vial IVPB ONE ×2 (08:00→14:21)
[2017-04-17] MEDS: Sevelamer Carb 0.8 gm/Packet PO SCH ×3 (08:00→18:00)
[2017-04-17] MEDS: Multivitamin Vitamin B Complex (Nephro-Vite) Tab PO SCH (08:00)
--- NOTE | 2017-04-17 08:02 | PN ---
DATE: FOLLOWUP RENAL CONSULTATION The patient is located in room 564, bed B. REQUESTED BY: Theodore Lucas MD. REASON FOR FOLLOWUP: End-stage renal disease, continuation of hemodialysis. SUBJECTIVE: Mr. Gonzales is a 66 years old elderly, obese Haitian male with a past medical history significant for longstanding hypertension, diabetes, end-stage renal disease, coronary artery disease status post CABG, CVA with left hemiparesis, was admitted with cough and shortness of breath and the patient is being treated for pneumonia and CHF. The patient was complaining of mild shortness of breath this evening, not in acute distress. Denies any chest pain or palpitations. Denies any fever. Denies any cough. PHYSICAL EXAMINATION GENERAL: Mr. Gonzales is a 66 years old elderly male, obese, well built, well nourished, not in distress, on nasal cannula. VITAL SIGNS: His vital signs are as follows: Blood pressure 141/61, pulse 90, respirations 22, temperature 97.9, and saturation 97%. Height 5 feet 6 inches and weight is 205 pounds. HEENT: Pupils are normal, reactive to light and accommodation. Conjunctivae are pink. Sclerae are anicteric. Tongue is moist. Trachea is midline. LUNGS: Symmetric on both sides. Bilateral breath sounds present, occasional basal crackles present. CARDIOVASCULAR: [place] at the fifth intercostal space, midclavicular line. S1 and S2 audible. No murmur, no gallop. The patient has a midsternal scar present from the previous CABG. ABDOMEN: Normal in appearance. Soft and tympanic. No guarding. No rigidity. No hepatosplenomegaly. CENTRAL NERVOUS SYSTEM: The patient is alert, awake, and oriented x3. Sensory system is grossly within normal limits. Motor: Right side is normal and left side, the patient has hemiparesis. EXTREMITIES: No cyanosis, no clubbing. The patient has 1+ edema in both lower extremities. CURRENT MEDICATIONS: His current medications include as follows: Ambien 10 mg at bedtime, Azactam 1 g q. 12 hours, clindamycin 600 mg IV q. 8 hours, EMLA cream topical three times a week, Lovenox 30 mg subcutaneous daily, Nephro-Renaldo 1 tablet daily, Procrit 4000 units three times a week, Renvela 800 mg p.o. t.i.d., Tylenol, tramadol 50 mg p.o. q. 8 hours, and vancomycin 1 g three times a week. LABORATORY DATA: His laboratory data include as follows: As of 04/16/2017, WBC 6.6, hemoglobin 9.8, hematocrit is 31.3, platelets 142, neutrophil 70, bands 2, lymph 7, mono 7, and eosinophil 14. Sodium is 139, potassium is 5.7, chloride 98, CO2 29, BUN is 46, creatinine is 5.2, and glucose is 145. Calcium is 9, phosphorous is 5.5. Total bilirubin 0.7, AST 48, ALT 66, alkaline phosphatase 207. Total protein 7. Albumin is 3.4. Accu-Chek are 104 and 136. Other reports, chest x-ray as of 04/16/2017, small left pleural effusion, no evidence of right pleural effusion, no pneumothorax, lungs, increasing opacity at the left base and left perihilar region and patchy opacity at the right base. The opacities have increased in extent compared to the prior examination. IMPRESSION: Nonspecific findings concerning for congestive heart failure versus pulmonary edema versus pneumonia. In summary, Mr. Gonzales is a 66 years old elderly Haitian male with a history of hypertension, diabetes, coronary artery disease status post coronary artery bypass graft, cerebrovascular accident, end-stage renal disease, was admitted with shortness of breath and being treated for cough and possible pneumonia and fluid overload. 1. End-stage renal disease. Continue hemodialysis three times a week on Sunday, , and Sunday. 2. Anemia secondary to renal failure. 3. Pneumonia. 4. Rule out congestive heart failure. 5. Hypertension. 6. Coronary artery disease, asymptomatic at this time. 7. Hyperkalemia. We will give Kayexalate 15 g p.o. x1 dose. PLAN: We will try to ultrafiltrate as much as the patient can tolerate, 3-3.5 L and restrict fluids to 1 liter per day and continue antibiotics as per Dr. Rodas. Try to concentrate on IV drips. Consider Pulmonary consultation. Increase Epogen to 10,000 units three times a week and we will change Renvela tablets to powder three times a week with food. Thank you for allowing me to participate in your patient's care. Martin Ortiz MD [facility] # [id number]
[2017-04-17] MEDS: EPOETIN ALFA 4,000 UNIT/ML ML Dialysis IV SCH (09:59)
[2017-04-17] MEDS: Enoxaparin 30 mg Syringe SC SCH (10:00)
[2017-04-17] MEDS: Paricalcitol 2 mcg/ml Inj IV SCH (10:01)
--- NOTE | 2017-04-17 11:29 | CP.PCM.PN ---
Subjective - Date & Time of Evaluation Date of Evaluation: 04/17/17 Time of Evaluation: 11:29 - Subjective Subjective: pt is seen and examined, follow up consult is dictated #[id number] seen in hd, uf 4000 ml extra hd in am Objective - Vital Signs/Intake and Output Vital Signs (last 24 hours): Temp Pulse Resp BP Pulse Ox 97.6 F 84 19 129/52 L 98 04/17/17 10:01 04/17/17 09:35 04/17/17 09:35 04/17/17 11:05 04/17/17 09:35 Intake and Output: 04/17/17 04/17/17 06:59 18:59 Intake Total 680 Balance 680 - Medications Medications: Current Medications Acetaminophen (Tylenol 325mg Tab) 650 mg PO Q4 PRN PRN Reason: Pain, moderate (4-7) Last Admin: 04/17/17 10:01 Dose: 650 mg Acetylcysteine (Acetylcysteine 20%) 4 ml INH RQ6 BELL Last Admin: 04/17/17 07:24 Dose: Not Given Enoxaparin Sodium (Lovenox) 30 mg SC DAILY [facility] Last Admin: 04/17/17 10:00 Dose: Not Given Epoetin Mario (Procrit) 12,000 unit IV TTS [facility] Last Admin: 04/17/17 09:59 Dose: 12,000 unit Gentamicin Sulfate/Sodium Chloride (Gentamicin Iv 80 Mg Premix) 80 mg in 100 mls @ 100 mls/hr IVPB ONCE [facility] Aztreonam 1 gm/ Sodium (Chloride) 100 mls @ 200 mls/hr IVPB Q12H [facility] Last Admin: 04/17/17 06:18 Dose: 200 mls/hr Clindamycin Phosphate (Cleocin In Normal Saline Addvantage) 600 mg in 50 mls @ 100 mls/hr IVPB Q8H [facility] Last Admin: 04/17/17 10:00 Dose: Not Given Vancomycin/Sodium Chloride (Vancocin) 1 gm in 200 mls @ 133.333 mls/hr IVPB TTS [facility] Stop: 04/17/17 20:01 Last Admin: 04/14/17 10:00 Dose: Not Given Paricalcitol (Zemplar) 2 mcg IV TTS [facility] Last Admin: 04/17/17 10:01 Dose: 2 mcg Pregabalin (Lyrica) 75 mg PO DAILY [facility] Last Admin: 04/17/17 10:00 Dose: Not Given Sevelamer Carbonate (Renvela) 0.8 gm PO TIDCC [facility] Last Admin: 04/17/17 08:00 Dose: Not Given Tramadol HCl (Ultram) 50 mg PO Q8 PRN PRN Reason: Pain, moderate (4-7) Last Admin: 04/15/17 23:40 Dose: 50 mg Vitamin B Complex/Vit C/Folic Acid (Nephro-Renaldo) 1 tab PO 0800 [facility] Last Admin: 04/16/17 08:58 Dose: 1 tab Zolpidem Tartrate (Ambien) 10 mg PO HS PRN PRN Reason: Insomnia Last Admin: 04/14/17 21:43 Dose: 10 mg - Labs Labs: 04/16/17 08:25 04/16/17 08:25 PT 13.2 SECONDS (9.7-12.2) H 04/11/17 09:46 INR 1.2 04/11/17 09:46 APTT 41 SECONDS (21-34) H 04/11/17 09:46
--- NOTE | 2017-04-17 13:00 | CP.PCM.PN ---
Subjective - Date & Time of Evaluation Date of Evaluation: 04/17/17 Time of Evaluation: 08:00 - Subjective Subjective: iv rx in progress discussed with dr houser Objective - Vital Signs/Intake and Output Vital Signs (last 24 hours): Temp Pulse Resp BP Pulse Ox 97.6 F 84 19 130/47 L 98 04/17/17 10:01 04/17/17 09:35 04/17/17 09:35 04/17/17 12:37 04/17/17 09:35 Intake and Output: 04/17/17 04/17/17 06:59 18:59 Intake Total 680 Balance 680 - Medications Medications: Current Medications Acetaminophen (Tylenol 325mg Tab) 650 mg PO Q4 PRN PRN Reason: Pain, moderate (4-7) Last Admin: 04/17/17 10:01 Dose: 650 mg Acetylcysteine (Acetylcysteine 20%) 4 ml INH RQ6 BELL Last Admin: 04/17/17 07:24 Dose: Not Given Enoxaparin Sodium (Lovenox) 30 mg SC DAILY [facility] Last Admin: 04/17/17 10:00 Dose: Not Given Epoetin Mario (Procrit) 12,000 unit IV TTS [facility] Last Admin: 04/17/17 09:59 Dose: 12,000 unit Gentamicin Sulfate/Sodium Chloride (Gentamicin Iv 80 Mg Premix) 80 mg in 100 mls @ 100 mls/hr IVPB ONCE [facility] Aztreonam 1 gm/ Sodium (Chloride) 100 mls @ 200 mls/hr IVPB Q12H [facility] Last Admin: 04/17/17 06:18 Dose: 200 mls/hr Clindamycin Phosphate (Cleocin In Normal Saline Addvantage) 600 mg in 50 mls @ 100 mls/hr IVPB Q8H [facility] Last Admin: 04/17/17 10:00 Dose: Not Given Vancomycin/Sodium Chloride (Vancocin) 1 gm in 200 mls @ 133.333 mls/hr IVPB TTS [facility] Stop: 04/17/17 20:01 Last Admin: 04/14/17 10:00 Dose: Not Given Paricalcitol (Zemplar) 2 mcg IV TTS [facility] Last Admin: 04/17/17 10:01 Dose: 2 mcg Pregabalin (Lyrica) 75 mg PO DAILY [facility] Last Admin: 04/17/17 10:00 Dose: Not Given Sevelamer Carbonate (Renvela) 0.8 gm PO TIDCC [facility] Last Admin: 04/17/17 08:00 Dose: Not Given Tramadol HCl (Ultram) 50 mg PO Q8 PRN PRN Reason: Pain, moderate (4-7) Last Admin: 04/15/17 23:40 Dose: 50 mg Vitamin B Complex/Vit C/Folic Acid (Nephro-Renaldo) 1 tab PO 0800 [facility] Last Admin: 04/16/17 08:58 Dose: 1 tab Zolpidem Tartrate (Ambien) 10 mg PO HS PRN PRN Reason: Insomnia Last Admin: 04/14/17 21:43 Dose: 10 mg - Labs Labs: 04/16/17 08:25 04/16/17 08:25 PT 13.2 SECONDS (9.7-12.2) H 04/11/17 09:46 INR 1.2 04/11/17 09:46 APTT 41 SECONDS (21-34) H 04/11/17 09:46 - Constitutional Appears: Non-toxic, Cachectic, Chronically Ill - Head Exam Head Exam: NORMOCEPHALIC - Eye Exam Eye Exam: PERRL - ENT Exam ENT Exam: Mucous Membranes Dry, Normal External Ear Exam - Neck Exam Neck Exam: absent: Lymphadenopathy - Respiratory Exam Respiratory Exam: Decreased Breath Sounds, Rhonchi Assessment and Plan (1) Pneumonia Status: Acute (2) Respiratory distress Status: Acute (3) ESRD (end stage renal disease) on dialysis Status: Chronic (4) Anemia Status: Acute (5) COPD (chronic obstructive pulmonary disease) Status: Acute (6) Chronic kidney disease Status: Acute
[2017-04-17] MEDS: Vancomycin 1 gm/NS 200 ml 1 GM/200 ML BAG IVPB SCH (14:22)
--- NOTE | 2017-04-17 21:27 | PN ---
DATE: FOLLOWUP RENAL CONSULTATION LOCATION: The patient is located in room 564, bed B. Requested by Dr. Abram Lucas. REASON FOR FOLLOWUP: End-stage renal disease, continuation with hemodialysis. HISTORY OF PRESENT ILLNESS: Mr. Gonzales is 66 years old elderly obese Nigerian male with a history of longstanding hypotension, diabetes, end-stage renal disease, coronary artery disease status post CABG, CVA with left-sided weakness, was admitted with cough, shortness of breath. The patient is being treated for pneumonia. The patient was seen and examined during dialysis. This morning, ultra filtration goal was about 3.5 liters, which was increased to 4 liters. The patient is not in acute distress, tolerating UF. Denies any chest pain. Does complain of some shortness of breath and mild cough. PHYSICAL EXAMINATION: GENERAL: Mr. Gonzales is 66 years old elderly male not in distress. There is a mild shortness of breath, being dialyzed. VITAL SIGNS: Blood pressure 131/54, pulse 79, and respirations about 19 and temperature about 97.6, height 5 feet 6 inches and weight is 205 pounds. HEENT: Pupils are normal and reactive to light and accommodation. Conjunctivae are pink. Sclerae are anicteric. Tongue is moist. Trachea is midline. LUNGS: Symmetrical on both sides, bilateral basal crackles present. Bilateral breath sounds present. CVS: [place] at the sixth intercostal space, midclavicular line. S1 and S2 audible. No murmur or gallop. The patient had a midsternal scar from the previous CABG. ABDOMEN: Soft and tympanic. No guarding. No hepatosplenomegaly. MEDICAL RECORDS CUSTODIAN: The patient is alert, awake, and oriented x3. Sensory and motor system is grossly intact around the right side. On the left side, the patient has left hemiparesis. EXTREMITIES: No cyanosis, no clubbing. The patient has 1 to 2+ edema in both lower extremities. CURRENT MEDICATIONS: His current medications include as follows: Mucomyst inhaler q.6h. p.r.n. and Ambien 10 mg at bedtime, Cleocin 600 mg IV q.8h., and Lovenox 30 mg subcutaneous daily, Nephro-Renaldo one tablet daily, and Procrit 12,000 units daily, Renvela 800 mg t.i.d. powder and Tylenol 650 mg p.o. q.6h., Tramadol 50 mg p.o. q.8h. p.r.n., Zemplar 2 mcg three times a week during dialysis. LABORATORY DATA: No new labs are available for today and Accu-Cheks this morning 94 and phosphorus level is 6.4. Blood culture x2 negative day 5. ASSESSMENT: In summary, Mr. Gonzales is 66 years old elderly obese Nigerian male with a history of hypertension, diabetes, coronary artery disease status post coronary artery bypass graft, cerebrovascular accident with left hemiparesis, end-stage renal disease, was admitted with cough and shortness of breath. 1. End-stage renal disease. Continue hemodialysis three times a week. The patient underwent hemodialysis this afternoon, UF goal was about 4 liters with net fluid loss is about 3.7 liters, tolerated very well. 2. Anemia secondary to renal failure. 3. Pneumonia. Continue antibiotics as per Dr. Rodas. 4. Congestive heart failure. 5. Fluid overload. 6. Status post hyperkalemia. PLAN: Repeat CBC and BMP in a.m. and we will give an extra dialysis tomorrow. We will try to ultrafilter as much as the patient can tolerate and we will follow with you. Thank you for allowing me to participate in your patient's care. Restrict fluids to 1 liter per day. Martin Ortiz MD [facility]
[2017-04-18] MEDS: Acetylcysteine 20% Inhal Soln (4ml) INH SCH ×3 (01:33→13:35)
[2017-04-18] MEDS: Clindamycin 600mg/50ml NS 600 MG/50 ML BAG IVPB SCH ×2 (01:40→09:40)
[2017-04-18] MEDS: Sevelamer Carb 0.8 gm/Packet PO SCH ×3 (09:04→17:43)
[2017-04-18] MEDS: Multivitamin Vitamin B Complex (Nephro-Vite) Tab PO SCH (09:04)
[2017-04-18] MEDS: Lidocaine/Prilocaine 2.5%-2.5% Cream (5 gm) TOP SCH (09:51)
[2017-04-18] MEDS: Enoxaparin 30 mg Syringe SC SCH (09:55)
[2017-04-18] MEDS: Albuterol-Ipratrop 3 mg / 0.5 (3 ml) UD INH SCH ×2 (13:35→20:27)
[2017-04-18] MEDS: Clindamycin 600mg/50ml D5W 600 MG/50 ML VIAL IVPB SCH ×2 (13:39→20:02)
--- NOTE | 2017-04-18 14:15 | CP.PCM.PN ---
Subjective - Date & Time of Evaluation Date of Evaluation: 04/18/17 Time of Evaluation: 09:00 - Subjective Subjective: afebrile alert nad Objective - Vital Signs/Intake and Output Vital Signs (last 24 hours): Temp Pulse Resp BP Pulse Ox 98.3 F 86 18 153/68 H 99 04/18/17 13:15 04/18/17 13:15 04/18/17 13:15 04/18/17 13:15 04/18/17 13:15 - Medications Medications: Current Medications Acetaminophen (Tylenol 325mg Tab) 650 mg PO Q4 PRN PRN Reason: Pain, moderate (4-7) Last Admin: 04/18/17 09:41 Dose: 650 mg Acetylcysteine (Acetylcysteine 20%) 4 ml INH RQ6 [facility] Last Admin: 04/18/17 13:35 Dose: Not Given Albuterol/Ipratropium (Duoneb 3 Mg/0.5 Mg (3 Ml) Ud) 3 ml INH RQ6 [facility] Last Admin: 04/18/17 13:35 Dose: Not Given Enoxaparin Sodium (Lovenox) 30 mg SC DAILY [facility] Last Admin: 04/18/17 09:55 Dose: Not Given Epoetin Mario (Procrit) 12,000 unit IV TTS [facility] Last Admin: 04/17/17 09:59 Dose: 12,000 unit Aztreonam 1 gm/ Sodium (Chloride) 100 mls @ 200 mls/hr IVPB Q12 [facility] Clindamycin Phosphate (Cleocin) 600 mg in 50 mls @ 100 mls/hr IVPB Q8H [facility] Last Admin: 04/18/17 13:39 Dose: Not Given Paricalcitol (Zemplar) 2 mcg IV TTS [facility] Last Admin: 04/17/17 10:01 Dose: 2 mcg Pregabalin (Lyrica) 75 mg PO DAILY [facility] Last Admin: 04/18/17 09:50 Dose: Not Given Sevelamer Carbonate (Renvela) 0.8 gm PO TIDCC [facility] Last Admin: 04/18/17 12:48 Dose: Not Given Tramadol HCl (Ultram) 50 mg PO Q12 PRN PRN Reason: Pain, severe (8-10) Vitamin B Complex/Vit C/Folic Acid (Nephro-Renaldo) 1 tab PO 0800 [facility] Last Admin: 04/18/17 09:04 Dose: 1 tab Zolpidem Tartrate (Ambien) 10 mg PO HS PRN PRN Reason: Insomnia Last Admin: 04/17/17 23:43 Dose: 10 mg - Labs Labs: 04/16/17 08:25 04/16/17 08:25 PT 13.2 SECONDS (9.7-12.2) H 04/11/17 09:46 INR 1.2 04/11/17 09:46 APTT 41 SECONDS (21-34) H 04/11/17 09:46 - Constitutional Appears: Non-toxic, Chronically Ill - Head Exam Head Exam: NORMOCEPHALIC - Eye Exam Eye Exam: PERRL - ENT Exam ENT Exam: Mucous Membranes Dry, Normal External Ear Exam - Neck Exam Neck Exam: absent: Lymphadenopathy - Respiratory Exam Respiratory Exam: Decreased Breath Sounds - Cardiovascular Exam Cardiovascular Exam: REGULAR RHYTHM - GI/Abdominal Exam GI & Abdominal Exam: Distended, Soft - Rectal Exam Rectal Exam: Deferred - Exam Exam: NORMAL INSPECTION - Extremities Exam Extremities Exam: absent: Calf Tenderness, Pedal Edema - Back Exam Back Exam: absent: CVA tenderness (L), CVA tenderness (R) - Neurological Exam Neurological Exam: Alert, Awake, Oriented x3 - Psychiatric Exam Psychiatric exam: Normal Mood - Skin Skin Exam: Dry Assessment and Plan (1) Pneumonia Status: Acute (2) Respiratory distress Status: Acute (3) ESRD (end stage renal disease) on dialysis Status: Chronic (4) Anemia Status: Acute (5) COPD (chronic obstructive pulmonary disease) Status: Acute (6) Chronic kidney disease Status: Acute
[2017-04-18] MEDS ORDERED: Albuterol 0.083% Inhal Sol (2.5 mg/3 mL) UD INH PRN (16:02)
--- NOTE | 2017-04-18 19:09 | CP.PCM.PN ---
Subjective - Date & Time of Evaluation Date of Evaluation: 04/18/17 Time of Evaluation: 19:08 - Subjective Subjective: pt is seen and examined, follow up consult is dictated #[id number] s/p hd today, had a uf about 2.2 lit Objective - Vital Signs/Intake and Output Vital Signs (last 24 hours): Temp Pulse Resp BP Pulse Ox 98.2 F 86 23 171/65 H 92 L 04/18/17 16:00 04/18/17 18:00 04/18/17 16:00 04/18/17 16:00 04/18/17 16:00 Intake and Output: 04/18/17 04/19/17 18:59 06:59 Intake Total 720 Balance 720 - Medications Medications: Current Medications Acetaminophen (Tylenol 325mg Tab) 650 mg PO Q4 PRN PRN Reason: Pain, moderate (4-7) Acetylcysteine (Acetylcysteine 20%) 4 ml INH RQ6 [facility] Last Admin: 04/18/17 13:35 Dose: Not Given Albuterol Sulfate (Albuterol 0.083% Inhal Blanca (2.5 Mg/3 Ml) Ud) 2.5 mg INH RQ6 PRN PRN Reason: Shortness of Breath Albuterol/Ipratropium (Duoneb 3 Mg/0.5 Mg (3 Ml) Ud) 3 ml INH RQ6 [facility] Last Admin: 04/18/17 13:35 Dose: Not Given Enoxaparin Sodium (Lovenox) 30 mg SC DAILY [facility] Last Admin: 04/18/17 09:55 Dose: Not Given Epoetin Mario (Procrit) 12,000 unit IV TTS [facility] Last Admin: 04/17/17 09:59 Dose: 12,000 unit Aztreonam 1 gm/ Sodium (Chloride) 100 mls @ 200 mls/hr IVPB Q12 [facility] Clindamycin Phosphate (Cleocin) 600 mg in 50 mls @ 100 mls/hr IVPB Q8H [facility] Last Admin: 04/18/17 13:39 Dose: Not Given Paricalcitol (Zemplar) 2 mcg IV TTS [facility] Last Admin: 04/17/17 10:01 Dose: 2 mcg Pregabalin (Lyrica) 75 mg PO DAILY [facility] Last Admin: 04/18/17 09:50 Dose: Not Given Sevelamer Carbonate (Renvela) 0.8 gm PO TIDCC [facility] Last Admin: 04/18/17 17:43 Dose: 0.8 gm Tramadol HCl (Ultram) 50 mg PO Q12 PRN PRN Reason: Pain, severe (8-10) Vitamin B Complex/Vit C/Folic Acid (Nephro-Renaldo) 1 tab PO 0800 [facility] Last Admin: 04/18/17 09:04 Dose: 1 tab Zolpidem Tartrate (Ambien) 10 mg PO HS PRN PRN Reason: Insomnia Last Admin: 04/17/17 23:43 Dose: 10 mg - Labs Labs: 04/16/17 08:25 04/16/17 08:25 PT 13.2 SECONDS (9.7-12.2) H 04/11/17 09:46 INR 1.2 04/11/17 09:46 APTT 41 SECONDS (21-34) H 04/11/17 09:46
[2017-04-18] MEDS: Aztreonam 1 GM in Sodium Chloride 0.9% 100 ML IVPB SCH (21:12)
--- NOTE | 2017-04-18 23:37 | PN ---
DATE: FOLLOWUP RENAL CONSULTATION LOCATION: The patient is located in room 564, bed B. REQUESTED BY: Dr. Abram Lucas REASON FOR FOLLOWUP: End-stage renal disease, continuation with hemodialysis. SUBJECTIVE: Mr. Gonzales is a 66 years old elderly obese [place] male with a history of hypertension, diabetes, coronary artery disease status post CABG, CVA with left-sided weakness, and end-stage renal disease on hemodialysis 3 times a week, Sunday, , Sunday, was admitted with shortness of breath and cough and bilateral leg swelling. The patient was found to have right middle and lower lobe infiltrate and is being treated for pneumonia and fluid overload. The patient is not in acute distress, complains of back pain with decubitus. No chest pain. No palpitation. No abdominal pain. No nausea or vomiting. The patient does complain of constipation. PHYSICAL EXAMINATION GENERAL: Mr Gonzales is a 66 years old male, well built, well nourished, not in distress. VITAL SIGNS: Blood pressure 163/73, pulse 86, respirations 23, temperature 98.2, saturation 92%. HEENT: Pupils are normal, reactive to light and accommodation. Conjunctivae are pink. Sclerae are anicteric. Tongue is moist. Trachea is midline. LUNGS: Symmetric on both sides. Bilateral breath sounds present. Clear on auscultation. CARDIOVASCULAR SYSTEM: Bruce at the fifth intercostal space, midclavicular line. S1 and S2 audible. No murmur or gallop. The patient has a midsternal scar present from the previous CABG. ABDOMEN: Soft and tympanic. No guarding. No rigidity. No hepatosplenomegaly. CENTRAL NERVOUS SYSTEM: The patient is alert, awake, and oriented x3. Sensory system is grossly within normal limit. Motor system, left-sided weakness. EXTREMITIES: No cyanosis, no clubbing. No edema. CURRENT MEDICATIONS: Includes as follows; acetylcysteine q. 6 hours p.r.n., albuterol inhaler q. 6 hours and Ambien 10 mg at bedtime, Azactam 1 g q. 12 hours, clindamycin 600 q. 8 hours, DuoNeb inhaler, Lovenox, Lyrica, Nephro-Renaldo, Epogen, Renvela, tramadol, Zemplar and Tylenol. LABORATORY DATA: His Accu-Chek 98 and 88. Other reports, blood cultures x2 negative day #5, it is on 04/13/2017. ASSESSMENT AND PLAN: In summary, Mr. Gonzales is a 66 years old elderly obese [place] male with a history of hypertension, diabetes, coronary artery disease status post coronary artery bypass graft, cerebrovascular accident with left hemiparesis, end-stage renal disease, being treated for pneumonia and fluid overload. 1. End-stage renal disease, continue hemodialysis 3 times a week Sunday, and Sunday. The patient underwent extra hemodialysis today, had ultrafiltration about 2.2 liters. 2. Hypertension, blood pressure stable. 3. Coronary artery disease asymptomatic at this time. 4. Status post fluid overload. The patient underwent hemodialysis yesterday and today, had ultrafiltration of about 6 liters in the last 2 days. Next hemodialysis will be tomorrow. 5. Pneumonia. Continue antibiotics as per Dr. Rodas. Repeat chest x-ray tomorrow after dialysis and lactulose 30 mL p.o. daily and also Colace 100 mg p.o. t.i.d. We will follow with you. Thank you for allowing me to participate in your patient's care. Discussed with the patient's family at bedside. Martin Ortiz MD
[2017-04-19] MEDS: Albuterol-Ipratrop 3 mg / 0.5 (3 ml) UD INH SCH ×4 (02:54→19:15)
[2017-04-19] MEDS: Acetylcysteine 20% Inhal Soln (4ml) INH SCH ×4 (02:55→19:15)
[2017-04-19] MEDS: Clindamycin 600mg/50ml NS 600 MG/50 ML BAG IVPB SCH ×2 (04:33→13:20)
--- NOTE | 2017-04-19 08:53 | CP.PCM.PN ---
Subjective - Date & Time of Evaluation Date of Evaluation: 04/19/17 Time of Evaluation: 08:50 - Subjective Subjective: breathing better mild rhonchi not tolerating mucomyst Objective - Vital Signs/Intake and Output Vital Signs (last 24 hours): Temp Pulse Resp BP Pulse Ox 98.6 F 70 20 170/88 H 96 04/19/17 08:00 04/19/17 08:00 04/19/17 08:00 04/19/17 08:00 04/19/17 08:00 Intake and Output: 04/19/17 04/19/17 06:59 18:59 Intake Total 600 Balance 600 - Medications Medications: Current Medications Acetaminophen (Tylenol 325mg Tab) 650 mg PO Q4 PRN PRN Reason: Pain, moderate (4-7) Last Admin: 04/19/17 02:46 Dose: 650 mg Acetylcysteine (Acetylcysteine 20%) 4 ml INH RQ6 [facility] Last Admin: 04/19/17 08:18 Dose: Not Given Albuterol Sulfate (Albuterol 0.083% Inhal Blanca (2.5 Mg/3 Ml) Ud) 2.5 mg INH RQ6 PRN PRN Reason: Shortness of Breath Albuterol/Ipratropium (Duoneb 3 Mg/0.5 Mg (3 Ml) Ud) 3 ml INH RQ6 [facility] Last Admin: 04/19/17 08:10 Dose: 3 ml Enoxaparin Sodium (Lovenox) 30 mg SC DAILY [facility] Last Admin: 04/18/17 09:55 Dose: Not Given Epoetin Mario (Procrit) 12,000 unit IV TTS [facility] Last Admin: 04/17/17 09:59 Dose: 12,000 unit Aztreonam 1 gm/ Sodium (Chloride) 100 mls @ 200 mls/hr IVPB Q12 [facility] Last Admin: 04/18/17 21:12 Dose: 200 mls/hr Clindamycin Phosphate (Cleocin In Normal Saline Addvantage) 600 mg in 50 mls @ 100 mls/hr IVPB Q8H [facility] Last Admin: 04/19/17 04:33 Dose: 100 mls/hr Paricalcitol (Zemplar) 2 mcg IV TTS [facility] Last Admin: 04/17/17 10:01 Dose: 2 mcg Pregabalin (Lyrica) 75 mg PO DAILY [facility] Last Admin: 04/18/17 09:50 Dose: Not Given Sevelamer Carbonate (Renvela) 0.8 gm PO TIDCC [facility] Last Admin: 04/18/17 17:43 Dose: 0.8 gm Tramadol HCl (Ultram) 50 mg PO Q12 PRN PRN Reason: Pain, severe (8-10) Vitamin B Complex/Vit C/Folic Acid (Nephro-Renaldo) 1 tab PO 0800 [facility] Last Admin: 04/18/17 09:04 Dose: 1 tab Zolpidem Tartrate (Ambien) 10 mg PO HS PRN PRN Reason: Insomnia Last Admin: 04/18/17 21:45 Dose: 10 mg - Labs Labs: 04/16/17 08:25 04/16/17 08:25 PT 13.2 SECONDS (9.7-12.2) H 04/11/17 09:46 INR 1.2 04/11/17 09:46 APTT 41 SECONDS (21-34) H 04/11/17 09:46 - Constitutional Appears: No Acute Distress, Chronically Ill - Head Exam Head Exam: NORMAL INSPECTION - Eye Exam Eye Exam: absent: Scleral icterus - ENT Exam ENT Exam: Mucous Membranes Moist - Neck Exam Neck Exam: Full ROM - Respiratory Exam Respiratory Exam: Decreased Breath Sounds, Prolonged Expiratory Phase, Rhonchi - Cardiovascular Exam Cardiovascular Exam: REGULAR RHYTHM - Extremities Exam Extremities Exam: Pedal Edema. absent: Calf Tenderness Assessment and Plan - Assessment and Plan (Free Text) Assessment: Pneumonia ESRD CHF T2dm Plan: Cont nebulizer tx Cont abtx HD
--- NOTE | 2017-04-19 08:57 | CP.PCM.PN ---
Subjective - Date & Time of Evaluation Date of Evaluation: 04/18/17 Time of Evaluation: 08:10 - Subjective Subjective: mild sob occ paroxysmal cough mild rhonchi Objective - Vital Signs/Intake and Output Vital Signs (last 24 hours): Temp Pulse Resp BP Pulse Ox 98.6 F 70 20 170/88 H 96 04/19/17 08:00 04/19/17 08:00 04/19/17 08:00 04/19/17 08:00 04/19/17 08:00 Intake and Output: 04/19/17 04/19/17 06:59 18:59 Intake Total 600 Balance 600 - Medications Medications: Current Medications Acetaminophen (Tylenol 325mg Tab) 650 mg PO Q4 PRN PRN Reason: Pain, moderate (4-7) Last Admin: 04/19/17 02:46 Dose: 650 mg Acetylcysteine (Acetylcysteine 20%) 4 ml INH RQ6 [facility] Last Admin: 04/19/17 08:18 Dose: Not Given Albuterol Sulfate (Albuterol 0.083% Inhal Blanca (2.5 Mg/3 Ml) Ud) 2.5 mg INH RQ6 PRN PRN Reason: Shortness of Breath Albuterol/Ipratropium (Duoneb 3 Mg/0.5 Mg (3 Ml) Ud) 3 ml INH RQ6 [facility] Last Admin: 04/19/17 08:10 Dose: 3 ml Enoxaparin Sodium (Lovenox) 30 mg SC DAILY [facility] Last Admin: 04/18/17 09:55 Dose: Not Given Epoetin Mario (Procrit) 12,000 unit IV TTS [facility] Last Admin: 04/17/17 09:59 Dose: 12,000 unit Aztreonam 1 gm/ Sodium (Chloride) 100 mls @ 200 mls/hr IVPB Q12 [facility] Last Admin: 04/18/17 21:12 Dose: 200 mls/hr Clindamycin Phosphate (Cleocin In Normal Saline Addvantage) 600 mg in 50 mls @ 100 mls/hr IVPB Q8H [facility] Last Admin: 04/19/17 04:33 Dose: 100 mls/hr Paricalcitol (Zemplar) 2 mcg IV TTS [facility] Last Admin: 04/17/17 10:01 Dose: 2 mcg Pregabalin (Lyrica) 75 mg PO DAILY [facility] Last Admin: 04/18/17 09:50 Dose: Not Given Sevelamer Carbonate (Renvela) 0.8 gm PO TIDCC [facility] Last Admin: 04/18/17 17:43 Dose: 0.8 gm Tramadol HCl (Ultram) 50 mg PO Q12 PRN PRN Reason: Pain, severe (8-10) Vitamin B Complex/Vit C/Folic Acid (Nephro-Renaldo) 1 tab PO 0800 [facility] Last Admin: 04/18/17 09:04 Dose: 1 tab Zolpidem Tartrate (Ambien) 10 mg PO HS PRN PRN Reason: Insomnia Last Admin: 04/18/17 21:45 Dose: 10 mg - Labs Labs: 04/16/17 08:25 04/16/17 08:25 PT 13.2 SECONDS (9.7-12.2) H 04/11/17 09:46 INR 1.2 04/11/17 09:46 APTT 41 SECONDS (21-34) H 04/11/17 09:46 - Constitutional Appears: Non-toxic, Chronically Ill - Head Exam Head Exam: NORMAL INSPECTION - Eye Exam Eye Exam: absent: Scleral icterus - ENT Exam ENT Exam: Mucous Membranes Moist - Neck Exam Neck Exam: Full ROM. absent: Lymphadenopathy - Respiratory Exam Respiratory Exam: Decreased Breath Sounds, Rales, NORMAL BREATHING PATTERN - Cardiovascular Exam Cardiovascular Exam: REGULAR RHYTHM - GI/Abdominal Exam GI & Abdominal Exam: Soft. absent: Tenderness - Extremities Exam Extremities Exam: absent: Pedal Edema - Neurological Exam Neurological Exam: Alert, Oriented x3 Assessment and Plan - Assessment and Plan (Free Text) Assessment: Pneumonia CHF COPD T2dm ESRD Plan: Cont Abtx nebulizer tx HD
--- NOTE | 2017-04-19 09:02 | CP.PCM.PN ---
Subjective - Date & Time of Evaluation Date of Evaluation: 04/16/17 Time of Evaluation: 08:30 - Subjective Subjective: not sleeping well +paroxysmal cough Objective - Vital Signs/Intake and Output Vital Signs (last 24 hours): Temp Pulse Resp BP Pulse Ox 98.6 F 70 20 170/88 H 96 04/19/17 08:00 04/19/17 08:00 04/19/17 08:00 04/19/17 08:00 04/19/17 08:00 Intake and Output: 04/19/17 04/19/17 06:59 18:59 Intake Total 600 Balance 600 - Medications Medications: Current Medications Acetaminophen (Tylenol 325mg Tab) 650 mg PO Q4 PRN PRN Reason: Pain, moderate (4-7) Last Admin: 04/19/17 02:46 Dose: 650 mg Acetylcysteine (Acetylcysteine 20%) 4 ml INH RQ6 [facility] Last Admin: 04/19/17 08:18 Dose: Not Given Albuterol Sulfate (Albuterol 0.083% Inhal Blanca (2.5 Mg/3 Ml) Ud) 2.5 mg INH RQ6 PRN PRN Reason: Shortness of Breath Albuterol/Ipratropium (Duoneb 3 Mg/0.5 Mg (3 Ml) Ud) 3 ml INH RQ6 [facility] Last Admin: 04/19/17 08:10 Dose: 3 ml Enoxaparin Sodium (Lovenox) 30 mg SC DAILY [facility] Last Admin: 04/18/17 09:55 Dose: Not Given Epoetin Mario (Procrit) 12,000 unit IV TTS [facility] Last Admin: 04/17/17 09:59 Dose: 12,000 unit Aztreonam 1 gm/ Sodium (Chloride) 100 mls @ 200 mls/hr IVPB Q12 [facility] Last Admin: 04/18/17 21:12 Dose: 200 mls/hr Clindamycin Phosphate (Cleocin In Normal Saline Addvantage) 600 mg in 50 mls @ 100 mls/hr IVPB Q8H [facility] Last Admin: 04/19/17 04:33 Dose: 100 mls/hr Paricalcitol (Zemplar) 2 mcg IV TTS [facility] Last Admin: 04/17/17 10:01 Dose: 2 mcg Pregabalin (Lyrica) 75 mg PO DAILY [facility] Last Admin: 04/18/17 09:50 Dose: Not Given Sevelamer Carbonate (Renvela) 0.8 gm PO TIDCC [facility] Last Admin: 04/18/17 17:43 Dose: 0.8 gm Tramadol HCl (Ultram) 50 mg PO Q12 PRN PRN Reason: Pain, severe (8-10) Vitamin B Complex/Vit C/Folic Acid (Nephro-Renaldo) 1 tab PO 0800 [facility] Last Admin: 04/18/17 09:04 Dose: 1 tab Zolpidem Tartrate (Ambien) 10 mg PO HS PRN PRN Reason: Insomnia Last Admin: 04/18/17 21:45 Dose: 10 mg - Labs Labs: 04/16/17 08:25 04/16/17 08:25 PT 13.2 SECONDS (9.7-12.2) H 04/11/17 09:46 INR 1.2 04/11/17 09:46 APTT 41 SECONDS (21-34) H 04/11/17 09:46 - Constitutional Appears: Non-toxic - Head Exam Head Exam: NORMAL INSPECTION - Eye Exam Eye Exam: Scleral icterus - ENT Exam ENT Exam: Mucous Membranes Moist - Neck Exam Neck Exam: Full ROM - Respiratory Exam Respiratory Exam: Decreased Breath Sounds - GI/Abdominal Exam GI & Abdominal Exam: Soft, Normal Bowel Sounds - Extremities Exam Extremities Exam: Pedal Edema. absent: Calf Tenderness Assessment and Plan - Assessment and Plan (Free Text) Assessment: Pneumonia CHF COPD ESRD Plan: Cont abtx HD nebulizer tx q6h
--- NOTE | 2017-04-19 09:11 | CP.PCM.PN ---
Subjective - Date & Time of Evaluation Date of Evaluation: 04/17/17 Time of Evaluation: 09:10 - Subjective Subjective: still coughing Case discussed w/ Dr Rodas slow progress Objective - Vital Signs/Intake and Output Vital Signs (last 24 hours): Temp Pulse Resp BP Pulse Ox 98.6 F 70 20 170/88 H 96 04/19/17 08:00 04/19/17 08:00 04/19/17 08:00 04/19/17 08:00 04/19/17 08:00 Intake and Output: 04/19/17 04/19/17 06:59 18:59 Intake Total 600 Balance 600 - Medications Medications: Current Medications Acetaminophen (Tylenol 325mg Tab) 650 mg PO Q4 PRN PRN Reason: Pain, moderate (4-7) Last Admin: 04/19/17 02:46 Dose: 650 mg Acetylcysteine (Acetylcysteine 20%) 4 ml INH RQ6 [facility] Last Admin: 04/19/17 08:18 Dose: Not Given Albuterol Sulfate (Albuterol 0.083% Inhal Blanca (2.5 Mg/3 Ml) Ud) 2.5 mg INH RQ6 PRN PRN Reason: Shortness of Breath Albuterol/Ipratropium (Duoneb 3 Mg/0.5 Mg (3 Ml) Ud) 3 ml INH RQ6 [facility] Last Admin: 04/19/17 08:10 Dose: 3 ml Enoxaparin Sodium (Lovenox) 30 mg SC DAILY [facility] Last Admin: 04/18/17 09:55 Dose: Not Given Epoetin Mario (Procrit) 12,000 unit IV TTS [facility] Last Admin: 04/17/17 09:59 Dose: 12,000 unit Aztreonam 1 gm/ Sodium (Chloride) 100 mls @ 200 mls/hr IVPB Q12 [facility] Last Admin: 04/18/17 21:12 Dose: 200 mls/hr Clindamycin Phosphate (Cleocin In Normal Saline Addvantage) 600 mg in 50 mls @ 100 mls/hr IVPB Q8H [facility] Last Admin: 04/19/17 04:33 Dose: 100 mls/hr Paricalcitol (Zemplar) 2 mcg IV TTS [facility] Last Admin: 04/17/17 10:01 Dose: 2 mcg Pregabalin (Lyrica) 75 mg PO DAILY [facility] Last Admin: 04/18/17 09:50 Dose: Not Given Sevelamer Carbonate (Renvela) 0.8 gm PO TIDCC [facility] Last Admin: 04/18/17 17:43 Dose: 0.8 gm Tramadol HCl (Ultram) 50 mg PO Q12 PRN PRN Reason: Pain, severe (8-10) Vitamin B Complex/Vit C/Folic Acid (Nephro-Renaldo) 1 tab PO 0800 [facility] Last Admin: 04/18/17 09:04 Dose: 1 tab Zolpidem Tartrate (Ambien) 10 mg PO HS PRN PRN Reason: Insomnia Last Admin: 04/18/17 21:45 Dose: 10 mg - Labs Labs: 04/16/17 08:25 04/16/17 08:25 PT 13.2 SECONDS (9.7-12.2) H 04/11/17 09:46 INR 1.2 04/11/17 09:46 APTT 41 SECONDS (21-34) H 04/11/17 09:46 - Constitutional Appears: No Acute Distress - Head Exam Head Exam: ATRAUMATIC - Eye Exam Eye Exam: absent: Scleral icterus - ENT Exam ENT Exam: Mucous Membranes Moist - Neck Exam Neck Exam: Full ROM - Respiratory Exam Respiratory Exam: Decreased Breath Sounds, Rhonchi - Cardiovascular Exam Cardiovascular Exam: REGULAR RHYTHM - GI/Abdominal Exam GI & Abdominal Exam: Soft. absent: Tenderness - Extremities Exam Extremities Exam: Calf Tenderness. absent: Full ROM - Neurological Exam Neurological Exam: Alert, Oriented x3 Additional comments: left hemiparesis paraparesis Assessment and Plan - Assessment and Plan (Free Text) Assessment: Pneumonia ESRD COPD CHF T2dm Old CVA Plan: Cont meds Cont abtx
[2017-04-19] MEDS: Multivitamin Vitamin B Complex (Nephro-Vite) Tab PO SCH (09:28)
[2017-04-19] MEDS: Sevelamer Carb 0.8 gm/Packet PO SCH ×3 (09:29→17:21)
[2017-04-19] MEDS: Lidocaine/Prilocaine 2.5%-2.5% Cream (5 gm) TOP SCH (10:20)
[2017-04-19] MEDS: Aztreonam 1 GM in Sodium Chloride 0.9% 100 ML IVPB SCH ×2 (10:28→21:55)
[2017-04-19] MEDS: Enoxaparin 30 mg Syringe SC SCH (10:28)
[2017-04-19] MEDS: EPOETIN ALFA 4,000 UNIT/ML ML Dialysis IV SCH (11:31)
[2017-04-19] MEDS: Paricalcitol 2 mcg/ml Inj IV SCH (11:32)
--- NOTE | 2017-04-19 15:44 | RAD ---
HISTORY: f/u on pneumonia/fluid overload COMPARISON: Comparison is made to 04/16/2017 TECHNIQUE: PA and lateral views of the chest were obtained P FINDINGS: LUNGS: Interval improvement in the lungs especially on the left since the previous study. Persistent mild diffuse hazy opacities suggestive of fluid overload or pulmonary congestion. PLEURA: Elevation of the left hemidiaphragm and bilateral costophrenic angle blunting. CARDIOVASCULAR: Normal. OSSEOUS STRUCTURES: No significant abnormalities. VISUALIZED UPPER ABDOMEN: Normal. OTHER FINDINGS: None. IMPRESSION: Interval [id number] improvement in the lungs since the previous exam.
--- NOTE | 2017-04-19 18:28 | CP.PCM.PN ---
Subjective - Date & Time of Evaluation Date of Evaluation: 04/19/17 Time of Evaluation: 18:28 - Subjective Subjective: pt is seen and examined, follow up consult is dictated #[id number] s/p hd today, uf 3 lit, s/p hd on 04/17,, Objective - Vital Signs/Intake and Output Vital Signs (last 24 hours): Temp Pulse Resp BP Pulse Ox 98.1 F 86 20 177/76 H 95 04/19/17 15:53 04/19/17 15:53 04/19/17 15:53 04/19/17 15:53 04/19/17 15:53 Intake and Output: 04/19/17 04/19/17 06:59 18:59 Intake Total 600 20 Balance 600 20 - Medications Medications: Current Medications Acetaminophen (Tylenol 325mg Tab) 650 mg PO Q4 PRN PRN Reason: Pain, moderate (4-7) Last Admin: 04/19/17 17:21 Dose: 650 mg Acetylcysteine (Acetylcysteine 20%) 4 ml INH RQ6 [facility] Last Admin: 04/19/17 13:57 Dose: Not Given Albuterol Sulfate (Albuterol 0.083% Inhal Blanca (2.5 Mg/3 Ml) Ud) 2.5 mg INH RQ6 PRN PRN Reason: Shortness of Breath Albuterol/Ipratropium (Duoneb 3 Mg/0.5 Mg (3 Ml) Ud) 3 ml INH RQ6 [facility] Last Admin: 04/19/17 13:58 Dose: Not Given Docusate Sodium (Colace) 100 mg PO TID [facility] Last Admin: 04/19/17 17:22 Dose: Not Given Epoetin Mario (Procrit) 12,000 unit IV TTS [facility] Last Admin: 04/19/17 11:31 Dose: 12,000 unit Aztreonam 1 gm/ Sodium (Chloride) 100 mls @ 200 mls/hr IVPB Q12 [facility] Last Admin: 04/19/17 10:28 Dose: Not Given Vancomycin HCl 1 gm/ Sodium (Chloride) 250 mls @ 166.7 mls/hr IVPB TTS [facility] Last Admin: 04/19/17 18:09 Dose: 166.7 mls/hr Lactulose (Enulose) 20 gm PO HS [facility] Paricalcitol (Zemplar) 2 mcg IV TTS [facility] Last Admin: 04/19/17 11:32 Dose: 2 mcg Pregabalin (Lyrica) 75 mg PO DAILY [facility] Last Admin: 04/19/17 10:28 Dose: Not Given Sevelamer Carbonate (Renvela) 0.8 gm PO TIDCC [facility] Last Admin: 04/19/17 17:21 Dose: 0.8 gm Tramadol HCl (Ultram) 50 mg PO Q12 PRN PRN Reason: Pain, severe (8-10) Vitamin B Complex/Vit C/Folic Acid (Nephro-Renaldo) 1 tab PO 0800 [facility] Last Admin: 04/19/17 09:28 Dose: 1 tab Zolpidem Tartrate (Ambien) 10 mg PO HS PRN PRN Reason: Insomnia Last Admin: 04/18/17 21:45 Dose: 10 mg - Labs Labs: 04/16/17 08:25 04/16/17 08:25 PT 13.2 SECONDS (9.7-12.2) H 04/11/17 09:46 INR 1.2 04/11/17 09:46 APTT 41 SECONDS (21-34) H 04/11/17 09:46
[2017-04-20] MEDS: Albuterol-Ipratrop 3 mg / 0.5 (3 ml) UD INH SCH ×3 (01:14→13:25)
[2017-04-20] MEDS: Acetylcysteine 20% Inhal Soln (4ml) INH SCH ×3 (01:16→13:26)
[2017-04-20 07:27] LABS: BASO # 0.1 K/uL (0.0-0.2); BASO % 1.5 % (0.0-2.0); EOS # 0.8 K/uL (0.0-0.7); HEMATOCRIT 32.4 % (35.0-51.0); LYMPH # 0.6 K/uL (1.0-4.3); LYMPH % 10.5 % (20.0-40.0); MEAN CELL VOLUME 95.5 fL (80.0-94.0); MEAN CORPUSCULAR HGB CONC 32.5 g/dL (33.0-37.0); MEAN PLATELET VOLUME 8.1 fL (7.2-11.7); MONO # 0.7 K/uL (0.0-0.8); MONO % 11.6 % (0.0-10.0); NRBC % 0.6 % (0.0-2.0); RED CELL DISTRIBUTION WIDTH 15.1 % (11.5-14.5); WHITE BLOOD COUNT 6.1 K/uL (4.8-10.8)
[2017-04-20 07:52] LABS: POTASSIUM 4.1 mmol/L (3.6-5.2)
[2017-04-20 07:56] LABS: CALCIUM 9.2 mg/dl (8.6-10.4)
--- NOTE | 2017-04-20 08:01 | PN ---
DATE: FOLLOWUP RENAL CONSULTATION LOCATION: The patient is located in room 559, bed B. REQUESTED BY: Theodore Lucas MD REASON FOR FOLLOWUP: End stage renal disease for continuation of hemodialysis. SUBJECTIVE: Mr. Gonzales is a 66 years old elderly obese Togolese male with a history of longstanding hypertension, diabetes, coronary artery disease, status post CABG, CVA with left-sided weakness, end stage renal disease on hemodialysis was admitted with cough and shortness of breath and the patient was found to have a right middle lower lobe infiltrates and also CHF. The patient is being treated for pneumonia with IV antibiotics Azactam, vancomycin, and clindamycin as per by Dr. Rodas. The patient underwent hemodialysis and ultrafiltration about 3 liters. The patient is not in any acute distress and complains of pain in the lower back. No chest pain. No palpitation. No shortness of breath. No nausea, vomiting, or diarrhea. PHYSICAL EXAMINATION: VITAL SIGNS: As follows; his blood pressure 177/76, pulse 86, respirations 20, temperature 98.1, saturation 95%, height 5 feet 6 inches, and weight is 205 pounds. GENERAL: Mr. Gonzales is a 66 years old elderly obese male, well built, well nourished, not in acute distress. HEENT: Pupils are normal, reactive to light and accommodation. Conjunctivae are pink. Sclerae are anicteric. Tongue is moist. Trachea is midline. LUNGS: Symmetrical on both sides. Bilateral breath sounds present. Clear on auscultation. CARDIOVASCULAR SYSTEM: [place] at the fifth intercostal space, midclavicular line. S1 and S2 audible. No murmur or gallop. The patient has a midsternal scar present from the previous CABG. ABDOMEN: Normal in appearance. Soft and tympanic. No guarding. No rigidity. No hepatosplenomegaly. CENTRAL NERVOUS SYSTEM: The patient is alert, awake, and oriented x3. Nonfocal neurological examination on the right side and on the left side the patient has a left hemapheresis from the previous CVA. EXTREMITIES: No cyanosis. No clubbing. The patient has a 1 to 2+ edema in both lower extremities. CURRENT MEDICATIONS: Include as follows: Acetylcysteine p.r.n., albuterol inhaler p.r.n., Ambien 10 mg at bedtime, Azactam 1 g q.12 hours, Colace 100 mg p.o. t.i.d., DuoNeb inhaler, lactulose 20 g p.o at bedtime, Lyrica 75 mg p.o. daily, Nephro-Renaldo 1 tablet daily, Procrit 12,000 units 3 times a week, Renvela 800 mg p.o. t.i.d., Tylenol, Ultram 60 mg p.o. q.12 hours, vancomycin 1 g 3 times a week, and Zemplar 2 mcg 3 times a week. LABORATORY DATA: No new labs are available and his Accu-Chek are 93 and 121. Chest x-ray as of 04/19/2017, interval [id number] improvement in the lungs since the previous examination. Persistent mild diffuse hazy opacity suggestive of fluid overload, pneumonia, or pulmonary congestion. ASSESSMENT AND PLAN: In summary, Mr. Gonzales is a 66 years old obese [place]og[place] male with a history of hypertension, diabetes, coronary artery disease, status post coronary artery bypass graft, end stage renal disease on hemodialysis 3 times a week, cerebrovascular accident with left hemiparesis being treated for pneumonia and fluid overload: 1. End-stage renal disease. Continue hemodialysis 3 times a week Sunday, , and Sunday. The patient underwent hemodialysis today without any complications, had a UF about 3 liters, restrict the fluids to 1 liter and try to concentrate all IV antibiotics. 2. Pneumonia. 3. Fluid overload. 4. Hypertension. Blood pressure is stable. Continue his current medications and analgesics as needed for the low back pain and decubitus. We will follow with you. Thank you for allowing me to participate in your patient's care. Martin Ortiz MD
[2017-04-20] MEDS: Multivitamin Vitamin B Complex (Nephro-Vite) Tab PO SCH (08:49)
[2017-04-20] MEDS: Sevelamer Carb 0.8 gm/Packet PO SCH ×2 (08:50→12:16)
[2017-04-20] MEDS: Aztreonam 1 GM in Sodium Chloride 0.9% 100 ML IVPB SCH (10:31)
--- NOTE | 2017-04-20 11:05 | CP.PCM.PN ---
Subjective - Date & Time of Evaluation Date of Evaluation: 04/20/17 Time of Evaluation: 11:04 - Subjective Subjective: pt is seen and examined, follow up consult is dictated #[id number] Objective - Vital Signs/Intake and Output Vital Signs (last 24 hours): Temp Pulse Resp BP Pulse Ox 98.3 F 73 22 182/74 H 98 04/19/17 23:36 04/20/17 01:00 04/19/17 23:36 04/19/17 23:36 04/19/17 23:36 Intake and Output: 04/20/17 04/20/17 06:59 18:59 Intake Total 750 Balance 750 - Medications Medications: Current Medications Acetaminophen (Tylenol 325mg Tab) 650 mg PO Q4 PRN PRN Reason: Pain, moderate (4-7) Last Admin: 04/20/17 06:56 Dose: 650 mg Acetylcysteine (Acetylcysteine 20%) 4 ml INH RQ6 BELL Last Admin: 04/20/17 07:45 Dose: Not Given Albuterol Sulfate (Albuterol 0.083% Inhal Blanca (2.5 Mg/3 Ml) Ud) 2.5 mg INH RQ6 PRN PRN Reason: Shortness of Breath Albuterol/Ipratropium (Duoneb 3 Mg/0.5 Mg (3 Ml) Ud) 3 ml INH RQ6 BELL Last Admin: 04/20/17 07:46 Dose: 3 ml Docusate Sodium (Colace) 100 mg PO TID [facility] Last Admin: 04/20/17 10:31 Dose: Not Given Epoetin Mario (Procrit) 12,000 unit IV TTS BELL Last Admin: 04/19/17 11:31 Dose: 12,000 unit Aztreonam 1 gm/ Sodium (Chloride) 100 mls @ 200 mls/hr IVPB Q12 [facility] Last Admin: 04/20/17 10:31 Dose: 200 mls/hr Vancomycin HCl 1 gm/ Sodium (Chloride) 250 mls @ 166.7 mls/hr IVPB TTS BE[facility] Last Admin: 04/19/17 18:09 Dose: 166.7 mls/hr Lactulose (Enulose) 20 gm PO HS [facility] Last Admin: 04/19/17 21:04 Dose: Not Given Losartan Potassium (Cozaar) 100 mg PO DAILY [facility] Last Admin: 04/20/17 10:31 Dose: Not Given Metoprolol Tartrate (Lopressor) 50 mg PO BID [facility] Last Admin: 04/20/17 10:31 Dose: 50 mg Paricalcitol (Zemplar) 2 mcg IV TTS [facility] Last Admin: 04/19/17 11:32 Dose: 2 mcg Pregabalin (Lyrica) 75 mg PO DAILY [facility] Last Admin: 04/20/17 10:31 Dose: 75 mg Sevelamer Carbonate (Renvela) 0.8 gm PO TIDCC [facility] Last Admin: 04/20/17 08:50 Dose: Not Given Tramadol HCl (Ultram) 50 mg PO Q12 PRN PRN Reason: Pain, severe (8-10) Vitamin B Complex/Vit C/Folic Acid (Nephro-Renaldo) 1 tab PO 0800 [facility] Last Admin: 04/20/17 08:49 Dose: 1 tab Zolpidem Tartrate (Ambien) 10 mg PO HS PRN PRN Reason: Insomnia Last Admin: 04/19/17 22:59 Dose: 10 mg - Labs Labs: 04/20/17 07:13 04/20/17 07:13 PT 13.2 SECONDS (9.7-12.2) H 04/11/17 09:46 INR 1.2 04/11/17 09:46 APTT 41 SECONDS (21-34) H 04/11/17 09:46
--- NOTE | 2017-04-20 11:33 | CP.PCM.PN ---
Subjective - Date & Time of Evaluation Date of Evaluation: 04/20/17 Time of Evaluation: 11:30 - Subjective Subjective: Pt seen today , denies any sob, ches t pain, palpitations, dizziness , abdominal pain N/V A FEBRILE using nasal canula and saturation 94-96% Objective - Vital Signs/Intake and Output Vital Signs (last 24 hours): Temp Pulse Resp BP Pulse Ox 98.3 F 73 22 182/74 H 98 04/19/17 23:36 04/20/17 01:00 04/19/17 23:36 04/19/17 23:36 04/19/17 23:36 Intake and Output: 04/20/17 04/20/17 06:59 18:59 Intake Total 750 Balance 750 - Medications Medications: Current Medications Acetaminophen (Tylenol 325mg Tab) 650 mg PO Q4 PRN PRN Reason: Pain, moderate (4-7) Last Admin: 04/20/17 06:56 Dose: 650 mg Acetylcysteine (Acetylcysteine 20%) 4 ml INH RQ6 BELL Last Admin: 04/20/17 07:45 Dose: Not Given Albuterol Sulfate (Albuterol 0.083% Inhal Blanca (2.5 Mg/3 Ml) Ud) 2.5 mg INH RQ6 PRN PRN Reason: Shortness of Breath Albuterol/Ipratropium (Duoneb 3 Mg/0.5 Mg (3 Ml) Ud) 3 ml INH RQ6 BELL Last Admin: 04/20/17 07:46 Dose: 3 ml Docusate Sodium (Colace) 100 mg PO TID [facility] Last Admin: 04/20/17 10:31 Dose: Not Given Epoetin Mario (Procrit) 12,000 unit IV TTS [facility] Last Admin: 04/19/17 11:31 Dose: 12,000 unit Aztreonam 1 gm/ Sodium (Chloride) 100 mls @ 200 mls/hr IVPB Q12 [facility] Last Admin: 04/20/17 10:31 Dose: 200 mls/hr Vancomycin HCl 1 gm/ Sodium (Chloride) 250 mls @ 166.7 mls/hr IVPB TTS [facility] Last Admin: 04/19/17 18:09 Dose: 166.7 mls/hr Lactulose (Enulose) 20 gm PO HS [facility] Last Admin: 04/19/17 21:04 Dose: Not Given Losartan Potassium (Cozaar) 100 mg PO DAILY [facility] Last Admin: 04/20/17 10:31 Dose: Not Given Metoprolol Tartrate (Lopressor) 50 mg PO BID [facility] Last Admin: 04/20/17 10:31 Dose: 50 mg Paricalcitol (Zemplar) 2 mcg IV TTS [facility] Last Admin: 04/19/17 11:32 Dose: 2 mcg Pregabalin (Lyrica) 75 mg PO DAILY [facility] Last Admin: 04/20/17 10:31 Dose: 75 mg Sevelamer Carbonate (Renvela) 0.8 gm PO TIDCC [facility] Last Admin: 04/20/17 08:50 Dose: Not Given Tramadol HCl (Ultram) 50 mg PO Q12 PRN PRN Reason: Pain, severe (8-10) Vitamin B Complex/Vit C/Folic Acid (Nephro-Renaldo) 1 tab PO 0800 [facility] Last Admin: 04/20/17 08:49 Dose: 1 tab Zolpidem Tartrate (Ambien) 10 mg PO HS PRN PRN Reason: Insomnia Last Admin: 04/19/17 22:59 Dose: 10 mg - Labs Labs: 04/20/17 07:13 04/20/17 07:13 PT 13.2 SECONDS (9.7-12.2) H 04/11/17 09:46 INR 1.2 04/11/17 09:46 APTT 41 SECONDS (21-34) H 04/11/17 09:46 - Constitutional Appears: Well, No Acute Distress - Neurological Exam Neurological Exam: Alert, Awake, Oriented x3 Assessment and Plan - Assessment and Plan (Free Text) Assessment: A/P 66 yr old male with ESRD on HD admitted for sob/pneumonia A febrile tolerating nasal canula an do2 sat 96% D/W Dr. Rodas cleared from ID standpoint to discharge to [facility] and continue antibiotics ( vanco an d azactum) D/W Dr. Lucas cleared for discharge to [facility] today and Dr. Lucas will follow the patient at [facility] discharge plan discussed wiht patient , who understands an d agrees with plan SW made aware of discharge plan and duration of antibiotics and pt needs BIPAP PRN
--- NOTE | 2017-04-20 14:12 | CP.PCM.PN ---
Subjective - Date & Time of Evaluation Date of Evaluation: 04/20/17 Time of Evaluation: 10:00 - Subjective Subjective: IMPROVING ON iv RX Objective - Vital Signs/Intake and Output Vital Signs (last 24 hours): Temp Pulse Resp BP Pulse Ox 98.3 F 73 22 182/74 H 98 04/19/17 23:36 04/20/17 01:00 04/19/17 23:36 04/19/17 23:36 04/19/17 23:36 Intake and Output: 04/20/17 04/20/17 06:59 18:59 Intake Total 750 Balance 750 - Medications Medications: Current Medications Acetaminophen (Tylenol 325mg Tab) 650 mg PO Q4 PRN PRN Reason: Pain, moderate (4-7) Last Admin: 04/20/17 06:56 Dose: 650 mg Acetylcysteine (Acetylcysteine 20%) 4 ml INH RQ6 BELL Last Admin: 04/20/17 13:26 Dose: Not Given Albuterol Sulfate (Albuterol 0.083% Inhal Blanca (2.5 Mg/3 Ml) Ud) 2.5 mg INH RQ6 PRN PRN Reason: Shortness of Breath Albuterol/Ipratropium (Duoneb 3 Mg/0.5 Mg (3 Ml) Ud) 3 ml INH RQ6 [facility] Last Admin: 04/20/17 13:25 Dose: 3 ml Docusate Sodium (Colace) 100 mg PO TID [facility] Last Admin: 04/20/17 10:31 Dose: Not Given Epoetin Mario (Procrit) 12,000 unit IV TTS [facility] Last Admin: 04/19/17 11:31 Dose: 12,000 unit Aztreonam 1 gm/ Sodium (Chloride) 100 mls @ 200 mls/hr IVPB Q12 [facility] Last Admin: 04/20/17 10:31 Dose: 200 mls/hr Vancomycin HCl 1 gm/ Sodium (Chloride) 250 mls @ 166.7 mls/hr IVPB TTS [facility] Last Admin: 04/19/17 18:09 Dose: 166.7 mls/hr Lactulose (Enulose) 20 gm PO HS [facility] Last Admin: 04/19/17 21:04 Dose: Not Given Losartan Potassium (Cozaar) 100 mg PO DAILY [facility] Last Admin: 04/20/17 10:31 Dose: Not Given Metoprolol Tartrate (Lopressor) 50 mg PO BID [facility] Last Admin: 04/20/17 10:31 Dose: 50 mg Paricalcitol (Zemplar) 2 mcg IV TTS [facility] Last Admin: 04/19/17 11:32 Dose: 2 mcg Pregabalin (Lyrica) 75 mg PO DAILY [facility] Last Admin: 04/20/17 10:31 Dose: 75 mg Sevelamer Carbonate (Renvela) 0.8 gm PO TIDCC [facility] Last Admin: 04/20/17 12:16 Dose: Not Given Tramadol HCl (Ultram) 50 mg PO Q12 PRN PRN Reason: Pain, severe (8-10) Vitamin B Complex/Vit C/Folic Acid (Nephro-Renaldo) 1 tab PO 0800 [facility] Last Admin: 04/20/17 08:49 Dose: 1 tab Zolpidem Tartrate (Ambien) 10 mg PO HS PRN PRN Reason: Insomnia Last Admin: 04/19/17 22:59 Dose: 10 mg - Labs Labs: 04/20/17 07:13 04/20/17 07:13 PT 13.2 SECONDS (9.7-12.2) H 04/11/17 09:46 INR 1.2 04/11/17 09:46 APTT 41 SECONDS (21-34) H 04/11/17 09:46 - Constitutional Appears: Non-toxic, Chronically Ill - Head Exam Head Exam: NORMOCEPHALIC - Eye Exam Eye Exam: PERRL - ENT Exam ENT Exam: Mucous Membranes Dry, Normal External Ear Exam - Neck Exam Neck Exam: absent: Lymphadenopathy - Respiratory Exam Respiratory Exam: Decreased Breath Sounds, Rhonchi - Cardiovascular Exam Cardiovascular Exam: REGULAR RHYTHM - GI/Abdominal Exam GI & Abdominal Exam: Distended, Soft - Rectal Exam Rectal Exam: Deferred - Exam Exam: NORMAL INSPECTION - Extremities Exam Extremities Exam: absent: Pedal Edema Assessment and Plan (1) Pneumonia Status: Acute (2) Respiratory distress Status: Acute (3) ESRD (end stage renal disease) on dialysis Status: Chronic (4) Anemia Status: Acute (5) COPD (chronic obstructive pulmonary disease) Status: Acute (6) Chronic kidney disease Status: Acute
--- NOTE | 2017-04-20 14:19 | PCM.HF ---
Heart Failure Core Measure - Heart Failure Ejection Fraction: 40 % or Greater PRO Inhibitor Prescribed: No Contraindication/Reason for not providing: on ARB Beta-Ozzy Prescribed: Metoprolol Succinate Angiotensin II Receptor Ozzy Prescribed: Yes AnticoagulationTherapy for Atrial Fibrillation/Atrialflutter: No Contraindication/Reason for not providing: no hx of afib Aldosterone Antagonist Prescribed: No Contraindication/Reason for not providing: ESRD/EF>50 Hydralazine Nitrate Prescribed: No Contraindication/Reason for not providing: EF>45 Implantable Cardioverter Defibrillator Therapy: No Contraindication/Reason for not providing: EF>45 Cardiac Resynchronization Therapy Prescribed: No Contraindication/Reason for not providing: EF>45 - Follow up Will be discharged to: Custodial Facility ([facility]) Follow Up Date (must be within 7 days from discharge): 04/23/17 Follow Up Time: 09:00
[2017-04-20 16:40] VITALS: BP 165/60; PULSE 71; RESP 20; TEMP 98.4; O2SAT 97
--- NOTE | 2017-04-20 22:34 | PN ---
FOLLOWUP RENAL CONSULTATION DATE: LOCATION: The patient is located in room 559, bed B. REQUESTED BY: Theodore Lucas MD REASON FOR FOLLOWUP: End stage renal disease for continuation of hemodialysis. SUBJECTIVE: Mr. Gonzales is a 66 year- old elderly obese [place] male with a history of longstanding hypertension, diabetes, coronary artery disease, status post CABG, end-stage renal disease, on hemodialysis, 3 times a week Sunday, , and Sunday, CVA with left hemiparesis, was admitted with cough and shortness of breath and being treated for pneumonia and CHF. The patient is not in acute distress. The patient denies any chest pain or palpitation. Denies any fever or cough. No abdominal pain. No nausea, vomiting, or diarrhea. The patient is eager to go back to [facility]. PHYSICAL EXAMINATION: VITAL SIGNS: As follows; blood pressure 170/69, pulse 68, respirations 20, temperature 98.2, saturation 95%, height 5 feet 6 inches, and weight is 205 pounds. GENERAL: Mr. Gonzales is 66-year- old elderly obese male, well built, well nourished, not in distress. HEENT: Pupils are normal, reactive to light and accommodation. Conjunctivae are pink. Sclerae are anicteric. Tongue is moist. Trachea is midline. LUNGS: Symmetrical on both sides. Bilateral breath sounds present. Clear on auscultation. CARDIOVASCULAR SYSTEM: [place] at the fifth intercostal space, midclavicular line. S1 and S2 audible. No murmur or gallop. The patient has a midsternal scar present from the previous CABG. ABDOMEN: Normal in appearance. Soft and tympanic. No guarding. No rigidity. No hepatosplenomegaly. CENTRAL NERVOUS SYSTEM: The patient is alert, awake, and oriented x3. Sensory system is grossly within normal limit. Motor system, normal on the right side. The patient has left hemiparesis. EXTREMITIES: No cyanosis. No clubbing. The patient has a 1 to 2+ edema in both lower extremities. CURRENT MEDICATIONS: Include as follows, Lidoderm patch, ProSource, Flomax 0.4 mg at bedtime, Ambien 10 mg at bedtime, tramadol 50 mg q. 12 hours, Nephro-Renaldo 1 tablet daily, vancomycin 1 g three times a week, and Renvela 800 mg p.o. t.i.d., Lyrica, Zemplar, metoprolol, Losartan, lactulose, Epogen, Colace, Azactam, albuterol inhaler and Tylenol. LABORATORY DATA: Include as follows, as of 04/20/2017, WBC 6.1, hemoglobin 10.5, hematocrit is 32.4, and platelets 184. Sodium 139, potassium 4.1, chloride 95, CO2 of 29, BUN 23, creatinine 3.2, glucose 94, and calcium 9.2. ASSESSMENT AND PLAN: In summary, Mr. Gonzales is a 66-year-old male with hypertension, diabetes, coronary artery disease, cerebrovascular accident, end-stage renal disease, being treated for pneumonia. 1. End-stage renal disease, continue hemodialysis three times a week, Sunday, and Sunday. 2. Hypertension, blood pressure is stable. 3. Pneumonia. 4. Fluid overload, restrict to fluids to 1 liter per day, continue antibiotics as per Dr. Rodas. We will schedule for hemodialysis in a.m. if the patient stays in the hospital, otherwise we will follow the patient in outpatient hemodialysis unit. Continue dialysis on Sunday. We will follow with you. Discussed with the counseling case manager for possible discharge and the patient can be discharged to [facility] once cleared by Dr. Rodas. Thank you for allowing me to participate in your patient's care. Martin Ortiz MD
--- NOTE | 2017-05-24 11:51 | CP.PCM.DIS ---
Provider - Provider Date of Admission: 04/11/17 10:20 Attending physician: Theodore Lucas MD Primary care physician: Dr Lucas Consults: Dr Angel Rodas Time Spent in preparation of Discharge (in minutes): 40 Diagnosis - Discharge Diagnosis (1) Pneumonia due to aerobic bacteria Status: Acute (2) CHF (congestive heart failure), NYHA class III Status: Acute (3) T2DM (type 2 diabetes mellitus) Status: Acute (4) ESRD (end stage renal disease) on dialysis Status: Acute (5) CAD (coronary artery disease) of artery bypass graft Status: Acute (6) ESRD (end stage renal disease) on dialysis Status: Chronic Hospital Course - Lab Results Lab Results: Micro Results 04/11/17 09:40 Blood Blood Culture - Final NO GROWTH AFTER 5 DAYS 04/11/17 09:40 Blood Gram Stain - Final TEST NOT PERFORMED 04/11/17 09:50 Blood Blood Culture - Final NO GROWTH AFTER 5 DAYS 04/11/17 09:50 Blood Gram Stain - Final TEST NOT PERFORMED Most Recent Lab Values WBC 6.1 K/uL (4.8-10.8) 04/20/17 07:13 RBC 3.39 Mil/uL (4.40-5.90) L 04/20/17 07:13 Hgb 10.5 g/dL (12.0-18.0) L 04/20/17 07:13 Hct 32.4 % (35.0-51.0) L 04/20/17 07:13 MCV 95.5 fL (80.0-94.0) H 04/20/17 07:13 MCH 31.0 pg (27.0-31.0) 04/20/17 07:13 MCHC 32.5 g/dL (33.0-37.0) L 04/20/17 07:13 RDW 15.1 % (11.5-14.5) H 04/20/17 07:13 Plt Count 184 K/uL (130-400) 04/20/17 07:13 MPV 8.1 fL (7.2-11.7) 04/20/17 07:13 Neut % (Auto) 63.4 % (50.0-75.0) 04/20/17 07:13 Lymph % (Auto) 10.5 % (20.0-40.0) L 04/20/17 07:13 [place] % (Auto) 11.6 % (0.0-10.0) H 04/20/17 07:13 Eos % (Auto) 13.0 % (0.0-4.0) H 04/20/17 07:13 Baso % (Auto) 1.5 % (0.0-2.0) 04/20/17 07:13 Neut # 3.9 K/uL (1.8-7.0) 04/20/17 07:13 Lymph # 0.6 K/uL (1.0-4.3) L 04/20/17 07:13 [place] # 0.7 K/uL (0.0-0.8) 04/20/17 07:13 Eos # 0.8 K/uL (0.0-0.7) H 04/20/17 07:13 Baso # 0.1 K/uL (0.0-0.2) 04/20/17 07:13 Neutrophils % (Manual) 70 % (50-75) 04/16/17 08:25 Band Neutrophils % 2 % (0-2) 04/16/17 08:25 Lymphocytes % (Manual) 7 % (20-40) L 04/16/17 08:25 Monocytes % (Manual) 7 % (0-10) 04/16/17 08:25 Eosinophils % (Manual) 14 % (0-4) H 04/16/17 08:25 Platelet Estimate Normal (NORMAL) 04/16/17 08:25 RBC Morphology Normal 04/11/17 09:46 Hypochromasia (manual) Slight 04/16/17 08:25 PT 13.2 SECONDS (9.7-12.2) H 04/11/17 09:46 INR 1.2 04/11/17 09:46 APTT 41 SECONDS (21-34) H 04/11/17 09:46 pO2 61 mm/Hg (30-55) H 04/11/17 12:39 VBG pH 7.34 (7.32-7.43) 04/11/17 12:39 VBG pCO2 64 mmHg (40-60) H 04/11/17 12:39 VBG HCO3 29.8 mmol/L 04/11/17 12:39 VBG Total CO2 36.5 mmol/L (22-28) H 04/11/17 12:39 VBG O2 Sat (Calc) 95.1 % (40-65) H 04/11/17 12:39 VBG Base Excess 6.5 mmol/L (0.0-2.0) H 04/11/17 12:39 VBG Potassium 4.1 mmol/L (3.6-5.2) 04/11/17 12:39 Sodium 136.0 mmol/l (132-148) 04/11/17 12:39 Chloride 98.0 mmol/L (98-107) 04/11/17 12:39 Glucose 111 mg/dl (75-110) H 04/11/17 12:39 Lactate 0.7 mmol/L (0.7-2.1) 04/11/17 12:39 Crit Value Called To Dr.ho stewart 04/11/17 09:54 Crit Value Called By Manjinder bueno,driver license examiner 04/11/17 09:54 Crit Value Read Back Y 04/11/17 09:54 Blood Gas Notified Time 1000 04/11/17 09:54 Sodium 139 mmol/L (132-148) 04/20/17 07:13 Potassium 4.1 mmol/L (3.6-5.2) 04/20/17 07:13 Chloride 95 mmol/L (98-107) L 04/20/17 07:13 Carbon Dioxide 29 mmol/L (22-30) 04/20/17 07:13 Anion Gap 20 (10-20) 04/20/17 07:13 BUN 23 mg/dL (9-20) H 04/20/17 07:13 Creatinine 3.2 MG/DL (0.8-1.5) H 04/20/17 07:13 Est GFR ( Amer) 24 04/20/17 07:13 Est GFR (Non-Af Amer) 20 04/20/17 07:13 POC Glucose (mg/dL) 110 mg/dL (65-110) 04/20/17 11:50 Random Glucose 93 mg/dL (75-110) 04/20/17 07:13 Calcium 9.2 mg/dl (8.6-10.4) 04/20/17 07:13 Phosphorus 6.4 mg/dL (2.5-4.5) H 04/17/17 07:09 Magnesium 2.1 mg/dL (1.6-2.3) 04/11/17 09:46 Total Bilirubin 0.7 mg/dL (0.2-1.3) 04/16/17 08:25 AST 48 U/L (17-59) 04/16/17 08:25 ALT 66 U/L (21-72) 04/16/17 08:25 Alkaline Phosphatase 207 U/L (38-126) H 04/16/17 08:25 Total Protein 7.0 g/dL (6.3-8.3) 04/16/17 08:25 Albumin 3.4 g/dL (3.5-5.0) L 04/16/17 08:25 Globulin 3.7 gm/dL (2.2-3.9) 04/16/17 08:25 Albumin/Globulin Ratio 0.9 (1.0-2.1) L 04/16/17 08:25 Venous Blood Potassium 4.1 mmol/L (3.6-5.2) 04/11/17 12:39 Random Vancomycin 10.74 ug/mL 04/12/17 08:14 - Hospital Course Hospital Course: Pt was treated w/ abtx as per ID and hemodialysis as per renal w/ good response. Discharge Exam - Head Exam Head Exam: NORMOCEPHALIC - Eye Exam Eye Exam: Scleral icterus - ENT Exam ENT Exam: Mucous Membranes Moist - Neck Exam Neck exam: Full Rom - Respiratory Exam Respiratory Exam: Rhonchi, Wheezes - Cardiovascular Exam Cardiovascular Exam: REGULAR RHYTHM - GI/Abdominal Exam GI & Abdominal Exam: Normal Bowel Sounds - Extremities Exam Extremities exam: pedal edema - Neurological Exam Neurological exam: Oriented x3 Additional comments: +paraparesis Discharge Plan - Discharge Medications Prescriptions: Zolpidem [Ambien] 10 mg PO HS PRN #5 tab PRN Reason: Insomnia - Follow Up Plan Condition: STABLE Disposition: [facility] Instructions: Aztreonam (By injection), Vancomycin (By injection), Viral Pneumonia (DC), Acute Respiratory Distress Syndrome (DC), Pneumococcal Vaccine for Adults (DC), Dialysis Diet (DC), Influenza Vaccine (DC), Aspiration Pneumonia (DC), Diabetic Neuropathy (DC), Simple Eosinophilic Pneumonia (DC), End Stage Kidney Disease (DC), BiPAP (GEN) Additional Instructions: Please call Dr. Lucas upon patient arrival to the facility continue azactum x 4 more days Continue vancomycin post HD T, TH, SAT x 4 doses Continue HD as scheduled - T, TH, SAT BIPAP PRN - 06/27/40% Referrals: Theodore Lucas MD [Staff Provider] -
== END 2017-04-20 15:18 | DRG 177 ==
LOC: C.ER 09:21 → C.9E 10:20 → C.5S 17:17
PROVIDERS: ADMIT Internal Medicine; ATTEND Internal Medicine
PROC: 5A1D60Z (ICD-10-PCS; principal; 2017-04-12)
DX: J15.8 Pneumonia due to other specified bacteria (principal); N18.6 End stage renal disease; I13.2 Hypertensive heart and chronic kidney disease with heart failure and with stage 5 chronic kidney disease, or end stage renal disease; E11.22 Type 2 diabetes mellitus with diabetic chronic kidney disease; I25.810 Atherosclerosis of coronary artery bypass graft(s) without angina pectoris; I69.354 Hemiplegia and hemiparesis following cerebral infarction affecting left non-dominant side; J44.0 Chronic obstructive pulmonary disease with (acute) lower respiratory infection; Z95.1 Presence of aortocoronary bypass graft; I50.9 Heart failure, unspecified; E87.5 Hyperkalemia; D63.1 Anemia in chronic kidney disease; E66.9 Obesity, unspecified; E78.5 Hyperlipidemia, unspecified; G47.30 Sleep apnea, unspecified; G62.9 Polyneuropathy, unspecified; I25.2 Old myocardial infarction; K59.00 Constipation, unspecified; F32.9 Major depressive disorder, single episode, unspecified; R09.02 Hypoxemia; Z86.010 Personal history of colon polyps; Z79.4 Long term (current) use of insulin; Z87.891 Personal history of nicotine dependence; Z99.2 Dependence on renal dialysis; Z68.35 Body mass index [BMI] 35.0-35.9, adult

== ENCOUNTER 2017-06-05 14:10 | Inpatient (IN) | payer MEDICARE, MEDICAID ==
[2017-06-05] MEDS ORDERED: Lactated Ringer's 1,000 ML ONE (14:21)
[2017-06-05 14:25] VITALS: BMI 29.5
[2017-06-05] MEDS ORDERED: Atropine Sulfate 1 mg/ml Vial (1 ml) IVP STA (14:25)
[2017-06-05 14:32] LABS: VENOUS BLOOD GAS PCO2 71 mmHg (40-60); VENOUS BLOOD PH 7.24 (7.32-7.43)
[2017-06-05 14:33] LABS: BASO % 0.3 % (0.0-2.0); EOS # 0.1 K/uL (0.0-0.7); EOS % 0.9 % (0.0-4.0); HEMATOCRIT 36.7 % (35.0-51.0); LYMPH # 0.8 K/uL (1.0-4.3); LYMPH % 10.3 % (20.0-40.0); MEAN CORPUSCULAR HEMOGLOBIN 31.7 pg (27.0-31.0); MEAN CORPUSCULAR HGB CONC 30.9 g/dL (33.0-37.0); MEAN PLATELET VOLUME 9.6 fL (7.2-11.7); MONO % 13.4 % (0.0-10.0); NRBC % 0.3 % (0.0-2.0); RED CELL DISTRIBUTION WIDTH 17.6 % (11.5-14.5); WHITE BLOOD COUNT 7.5 K/uL (4.8-10.8)
[2017-06-05 14:34] LABS: MEAN CELL VOLUME 102.5 fL (80.0-94.0)
[2017-06-05] MEDS ORDERED: (Novolin R) Insulin Human Regular 100 units/ml vial IV STA (14:34)
[2017-06-05] MEDS ORDERED: Dextrose 50% SYRINGE Inj (50 ml) IV STA (14:34)
[2017-06-05] MEDS ORDERED: Sodium Bicarbonate (8.4%) 50 Meq Syringe IVP ONE (14:35)
[2017-06-05] MEDS ORDERED: Calcium Gluconate 4.65 MEQ in Dextrose 5% In Water 100 ML IV STA (14:37)
[2017-06-05 14:42] LABS: INR 1.1
[2017-06-05] MEDS ORDERED: DOBUTamine 500mg/250ml D5W 500 MG/250 ML BAG IV STA (14:44)
[2017-06-05] MEDS ORDERED: (Novolin R) Insulin Human Regular 100 units/ml vial ONE (14:48)
[2017-06-05] MEDS ORDERED: Sodium Bicarbonate (8.4%) 50 Meq Syringe ONE (14:48)
[2017-06-05] MEDS ORDERED: Dextrose 50% SYRINGE Inj (50 ml) ONE (14:48)
[2017-06-05] MEDS ORDERED: Calcium Gluconate 4.65 mEq/10 ml Inj ONE (14:48)
--- NOTE | 2017-06-05 14:55 | RAD ---
PROCEDURE: CHEST RADIOGRAPH, 1 VIEW HISTORY: SOB COMPARISON: 04/19/2017 FINDINGS: LUNGS: Shallow lung volumes. Cardiac device over left yaneli thorax obscuring this part. PLEURA: Small bilateral pleural effusions. No pneumothorax appreciated. CARDIOVASCULAR: Cardiomegaly. Midline sternotomy. Faint metallic device projecting over the heart assumed for cardiac rhythm monitoring. Central pulmonary venous congestion consistent with patchy bilateral pulmonary edema Left axillary vascular stent similar-appearing OSSEOUS STRUCTURES: Midline sternotomy changes. VISUALIZED UPPER ABDOMEN: Normal. OTHER FINDINGS: None. IMPRESSION: Findings consistent with CHF. Cardiomegaly, pulmonary venous congestion and bilateral pleural effusions
[2017-06-05] MEDS ORDERED: DOBUTamine 500mg/250ml D5W 500 MG/250 ML BAG ONE (15:00)
[2017-06-05] MEDS ORDERED: Epoetin Alfa Dialysis 40000 UNIT/ml Inj IV ONE (15:20)
[2017-06-05] MEDS ORDERED: Paricalcitol 2 mcg/ml Inj IV ONE ×2 (15:22→16:45)
[2017-06-05 15:25] LABS: TROPONIN I 0.061 ng/mL (0.00-0.120)
[2017-06-05 15:44] LABS: THYROID STIMULATING HORMONE 7.65 mIU/L (0.46-4.68)
--- NOTE | 2017-06-05 16:11 | CP.PCM.CON ---
<Lashonda Ojeda - Last Filed: 06/05/17 17:03> History of Present Illness - History of Present Illness History of Present Illness: Patient is a 67 year old male with PMHx of quadruple bypass in 2006, DM, HTN, ESRD, and CVA in 2016 who presents today with AMS. Patient went for dialysis, but he was confused and dialysis center sent him to the ED without being dialyzed to be evaluated. In ED patient's heart rate in the 30s and blood pressure in 70s over 30s. Patient was also found to be hyperkalemic at 7.6. Patient was given Calcium Gluconate, 1amp of D50, 10 units Insulin, Sodium Bicarb, Paricalcitol. Patient also given 1mg Atropine and started on Dobutamine drip. Patient seen in ED and slightly responsive. Patient complaining of pain from his buttocks. Patient denies chest pain. Full ROS unobtainable from patient at this time. History obtained from cousin at bedside. PMHx: DM, HTN, ESRD, and CVA in 2016 Psurg: quadruple bypass in 2006, av fistula left arm Famhx: mom: kidney failure, sister: DM, HTN, brother: kidney disease Social: no history of tobacco or drugs, use to drink alcohol socially. Patient lives at [facility]. (phone: [phone]) Review of Systems - Review of Systems Systems not reviewed;Unavailable: Altered Mental Status - Cardiovascular Cardiovascular: absent: Chest Pain - Musculoskeletal Additional comments: buttocks pain Past Patient History - Infectious Disease Hx of Infectious Diseases: None - Past Medical History & Family History Past Medical History?: Yes - Past Social History Smoking Status: Former Smoker - CARDIAC Hx Cardiac Disorders: Yes Hx Congestive Heart Failure: Yes Hx Hypertension: Yes - PULMONARY Hx Respiratory Disorders: Yes Hx Asthma: Yes Hx Sleep Apnea: Yes - NEUROLOGICAL Hx Neurological Disorder: Yes HX Cerebrovascular Accident: Yes (LT SIDE WEAKNESS) - HEENT Hx HEENT Problems: Yes Hx Cataracts: Yes - RENAL Hx Chronic Kidney Disease: Yes Hx Dialysis: Yes - ENDOCRINE/METABOLIC Hx Endocrine Disorders: Yes Hx Diabetes Mellitus Type 2: Yes - HEMATOLOGICAL/ONCOLOGICAL Hx Blood Disorders: Yes Hx Anemia: Yes - INTEGUMENTARY Hx Dermatological Problems: Yes Other/Comment: healed sacral ulcer - MUSCULOSKELETAL/RHEUMATOLOGICAL Hx Musculoskeletal Disorders: Yes Hx Falls: Yes Hx Unsteady Gait: Yes Other/Comment: HX: MUSCLE WEAKNESS(GENERALIZED), Left sided body weakness due to CVA - GASTROINTESTINAL Hx Gastrointestinal Disorders: Yes Other/Comment: HX: DYSPHAGIA,UNSPECIFIED - GENITOURINARY/GYNECOLOGICAL Hx Genitourinary Disorders: No - PSYCHIATRIC Hx Psychophysiologic Disorder: Yes Hx Depression: Yes ('MAJOR DEPRESSIVE DISORDER,SINGLE EPISODE,UNSPECIFIED") Hx Substance Use: No - SURGICAL HISTORY Hx Surgeries: Yes Hx Coronary Artery Bypass Graft: Yes - ANESTHESIA Hx Anesthesia: Yes Hx Anesthesia Reactions: No Hx Malignant Hyperthermia: No Meds Allergies/Adverse Reactions: Allergies Allergy/AdvReac Type Severity Reaction Status Date / Time iodine Allergy Intermediate RASH Verified 04/11/17 09:37 aspirin Allergy Verified 04/11/17 09:37 clopidogrel bisulfate Allergy UNKNOWN Verified 04/11/17 09:37 [From Plavix] Penicillins Allergy UNKNOWN Verified 04/11/17 09:37 IV DYE Allergy Uncoded 04/11/17 09:38 Physical Exam - Constitutional Appears: Older Than Stated Age, Chronically Ill - Head Exam Head Exam: ATRAUMATIC, NORMAL INSPECTION, NORMOCEPHALIC - Eye Exam Eye Exam: EOMI - Respiratory Exam Respiratory Exam: Accessory Muscle Use, Decreased Breath Sounds, Rhonchi - Cardiovascular Exam Cardiovascular Exam: Bradycardia, +S1, +S2 - GI/Abdominal Exam GI & Abdominal Exam: Soft - Extremities Exam Extremities exam: Positive for: pedal edema - Neurological Exam Neurological exam: Alert - Skin Skin Exam: Intact, Normal Color, Warm Results - Vital Signs Recent Vital Signs: Last Vital Signs Temp 98.2 F 06/05/17 14:24 Pulse 35 L 06/05/17 15:10 Resp 16 06/05/17 15:10 BP 78/25 L 06/05/17 15:10 Pulse Ox 98 06/05/17 15:10 - Labs Result Diagrams: 06/05/17 14:28 06/05/17 14:28 Labs: Laboratory Results - last 24 hr 06/05/17 06/05/17 06/05/17 14:28 14:28 14:28 WBC 7.5 RBC 3.58 L Hgb 11.4 L Hct 36.7 MCV 102.5 H D MCH 31.7 H MCHC 30.9 L RDW 17.6 H Plt Count 147 MPV 9.6 Neut % (Auto) 75.1 H Lymph % (Auto) 10.3 L [place] % (Auto) 13.4 H Eos % (Auto) 0.9 Baso % (Auto) 0.3 Neut # 5.7 Lymph # 0.8 L [place] # 1.0 H Eos # 0.1 Baso # 0.0 PT 12.6 H INR 1.1 APTT 44 H pO2 VBG pH VBG pCO2 VBG HCO3 VBG Total CO2 VBG O2 Sat (Calc) VBG Base Excess VBG Potassium Sodium Chloride Glucose Lactate Crit Value Called To Crit Value Called By Crit Value Read Back Blood Gas Notified Time Troponin I 0.0610 TSH 3rd Generation 7.65 H Venous Blood Potassium 06/05/17 14:29 WBC RBC Hgb Hct MCV MCH MCHC RDW Plt Count MPV Neut % (Auto) Lymph % (Auto) [place] % (Auto) Eos % (Auto) Baso % (Auto) Neut # Lymph # [place] # Eos # Baso # PT INR APTT pO2 28 L VBG pH 7.24 L VBG pCO2 71 H* VBG HCO3 24.2 VBG Total CO2 32.6 H VBG O2 Sat (Calc) 53.6 VBG Base Excess 1.0 VBG Potassium 7.7 H* Sodium 138.0 Chloride 106.0 Glucose 122 H Lactate 1.8 Crit Value Called To Dr. hayes Crit Value Called By Amilcar amaral Crit Value Read Back Y Blood Gas Notified Time 1432 Troponin I TSH 3rd Generation Venous Blood Potassium 7.7 H* Assessment & Plan - Assessment and Plan (Free Text) Assessment: Patient is a 67 year old male with PMHx of quadruple bypass in 2006, DM, HTN, ESRD, and CVA in 2016 who presents today for AMS and missing today's dialysis. Neuro: AMS 2/2 bradycardia and hyperkalemia, hx stroke Cardio: bradycardia 2/2 hyperkalemia, hx quadruple bypass, HTN -1mg Atropine given in ED -Dobutamine drip started in ED, continue Pulm: -cxray (06/05): findings consistent with CHF. Cardiomegaly, pulmonary venous congestion and bilateral pleural effusions -most likely secondary to fluid overload from ESRD Nephro: ESRD -emergent dialysis today, K+ 7.6 -Calcium Gluconate, 1amp of D50, 10 units Insulin, Sodium Bicarb given in ED Endo: DM -accuchecks ACHS -ISS -TSH: 7.65 -f/u T4 Prophylaxis: GI: Pepcid 20 mg ivp daily DVT: Heparin 5000 u sc q8h <Joey Frausto - Last Filed: 06/05/17 17:19> Meds - Medications Medications: Current Medications Famotidine (Pepcid) 20 mg IVP DAILY [facility] Last Admin: 06/05/17 16:36 Dose: 20 mg Heparin Sodium (Porcine) (Heparin) 5,000 units SC Q8H [facility] Last Admin: 06/05/17 16:36 Dose: 5,000 units Insulin Human Regular (Novolin R) 0 unit SC [facility] PRN Reason: Protocol Last Admin: 06/05/17 16:45 Dose: Not Given Results - Vital Signs Recent Vital Signs: Last Vital Signs Temp 97.4 F L 06/05/17 16:23 Pulse 50 L 06/05/17 16:23 Resp 16 06/05/17 16:23 BP 125/32 L 06/05/17 15:29 Pulse Ox 97 06/05/17 17:05 - Labs Result Diagrams: 06/05/17 14:28 06/05/17 14:28 Labs: Laboratory Results - last 24 hr 06/05/17 06/05/17 06/05/17 14:28 14:28 14:28 WBC 7.5 RBC 3.58 L Hgb 11.4 L Hct 36.7 MCV 102.5 H D MCH 31.7 H MCHC 30.9 L RDW 17.6 H Plt Count 147 MPV 9.6 Neut % (Auto) 75.1 H Lymph % (Auto) 10.3 L [place] % (Auto) 13.4 H Eos % (Auto) 0.9 Baso % (Auto) 0.3 Neut # 5.7 Lymph # 0.8 L [place] # 1.0 H Eos # 0.1 Baso # 0.0 PT 12.6 H INR 1.1 APTT 44 H pO2 VBG pH VBG pCO2 VBG HCO3 VBG Total CO2 VBG O2 Sat (Calc) VBG Base Excess VBG Potassium Glucose Lactate Crit Value Called To Crit Value Called By Crit Value Read Back Blood Gas Notified Time Sodium 135 Potassium 7.6 H* D Chloride 95 L Carbon Dioxide 26 Anion Gap 22 H BUN 100 H* D Creatinine 7.2 H Est GFR ( Amer) 9 Est GFR (Non-Af Amer) 8 POC Glucose (mg/dL) Random Glucose 114 H Calcium 8.5 L Total Bilirubin 1.0 AST 49 ALT 61 Alkaline Phosphatase 238 H Troponin I 0.0610 NT-Pro-B Natriuret Pep 08126 H Total Protein 7.2 Albumin 3.7 Globulin 3.5 Albumin/Globulin Ratio 1.1 TSH 3rd Generation 7.65 H Venous Blood Potassium 06/05/17 06/05/17 14:29 16:38 WBC RBC Hgb Hct MCV MCH MCHC RDW Plt Count MPV Neut % (Auto) Lymph % (Auto) [place] % (Auto) Eos % (Auto) Baso % (Auto) Neut # Lymph # [place] # Eos # Baso # PT INR APTT pO2 28 L VBG pH 7.24 L VBG pCO2 71 H* VBG HCO3 24.2 VBG Total CO2 32.6 H VBG O2 Sat (Calc) 53.6 VBG Base Excess 1.0 VBG Potassium 7.7 H* Glucose 122 H Lactate 1.8 Crit Value Called To Dr. hayes Crit Value Called By Amilcar amaral Crit Value Read Back Y Blood Gas Notified Time 1432 Sodium 138.0 Potassium Chloride 106.0 Carbon Dioxide Anion Gap BUN Creatinine Est GFR ( Amer) Est GFR (Non-Af Amer) POC Glucose (mg/dL) 89 Random Glucose Calcium Total Bilirubin AST ALT Alkaline Phosphatase Troponin I NT-Pro-B Natriuret Pep Total Protein Albumin Globulin Albumin/Globulin Ratio TSH 3rd Generation Venous Blood Potassium 7.7 H* Attending/Attestation - Attestation I have personally seen and examined this patient.: Yes I have fully participated in the care of the patient.: Yes I have reviewed all pertinent clinical information: Yes Notes (Text): 06/05/17 17:17 Patient seen and examined. Case discussed with house staff in the morning rounds. 67-year-old male transferred from dialysis center for lethargy. In the emergency room patient found to be hypotensive and bradycardic with potassium level off greater than 7. Patient received calcium gluconate, bicarbonate and insulin Started on hemodialysis in the ICU On dobutamine drip Cardiology evaluation
[2017-06-05 16:12] LABS: ALB/GLOB RATIO 1.1 (1.0-2.1); CALCIUM 8.5 mg/dl (8.6-10.4); POTASSIUM 7.6 mmol/L (3.6-5.2); TOTAL PROTEIN 7.2 g/dL (6.3-8.3)
[2017-06-05] MEDS: (Novolin R) Insulin Human Regular 100 units/ml vial SC SCH ×2 (16:45→23:20)
[2017-06-05] MEDS ORDERED: Epoetin Alfa 10,000 unit/ml Dialysis IV ONE (16:45)
--- NOTE | 2017-06-05 16:52 | C.PDOC ---
History Of Present Illness 67 year old male was brought to the ED via EMS from longterm for evaluation of decreased mental status and lethargy. Patient usually receives dialysis Sunday, , and Sunday, patient is due for dialysis today. Patient is non-ambulatory due to a prior stroke. Limited HPI and ROS due to patient's clinical condition. Time Seen by Provider: 06/05/17 14:24 Chief Complaint (Nursing): Altered Mental Status History Per: EMS History/Exam Limitations: Clinical Condition Onset Of Symptoms: <3 Hours Current Symptoms Are (Timing): Still Present Usual Baseline: Other (non-ambulatory following stroke ) Exacerbating Factor(s): Unknown Use Of Anticoag/Antiplatelets: No Recent travel outside of the [place]: No Additional History Per: Care Home, Prior Records Past Medical History Reviewed: Historical Data, Nursing Documentation, Vital Signs Vital Signs: Last Vital Signs Temp 97.8 F 06/05/17 20:00 Pulse 62 06/05/17 23:01 Resp 14 06/05/17 23:01 BP 117/29 L 06/05/17 23:01 Pulse Ox 100 06/05/17 23:01 - Medical History PMH: Anemia, Asthma, CHF, CVA (affecting left side), Depression ('MAJOR DEPRESSIVE DISORDER,SINGLE EPISODE,UNSPECIFIED"), HTN, Peripheral Edema, End Stage Renal Disease, Chronic Kidney Disease, Sleep Apnea Surgical History: CABG, Endoscopy - [facility] DIALYSIS ARTERIOVENOSTOM (10/07/14) EXCISION OF SIGMOID COLON, ENDO, DIAGN (09/26/16) INCIS W REM OF FORIEGN BODY OR DEV FROM SKIN & SUBCUT TISSUE (12/23/14) PERFORMANCE OF URINARY FILTRATION, MULTIPLE (04/11/17) Family History: States: Unknown Family Hx - Social History Hx Alcohol Use: No Hx Substance Use: No - Immunization History Hx Influenza Vaccination: Yes Hx Pneumococcal Vaccination: Yes Review Of Systems Constitutional: Negative for: Fever, Chills Cardiovascular: Negative for: Chest Pain, Palpitations Respiratory: Negative for: Cough, Shortness of Breath Gastrointestinal: Negative for: Nausea, Vomiting, Abdominal Pain, Diarrhea Neurological: Positive for: Altered Mental Status, Other (lethargy) Physical Exam - Physical Exam Appears: Non-toxic, Confused, Other (decreased mental status ) Skin: Warm, Dry, No Rash, Other (sacral decubitus ulcer) Head: Atraumatic, Normacephalic, No Tenderness Eye(s): bilateral: Normal Inspection, PERRL, EOMI Oral Mucosa: Moist Neck: Supple Chest: No Tenderness, Other (midline sternotomy scar ) Cardiovascular: No Murmur Respiratory: Rales (increased rales bilaterally ) Extremity: Other (mild edema of the lower extremities ) ED Course And Treatment - Laboratory Results Result Diagrams: 06/05/17 14:28 06/05/17 19:38 ECG: Interpreted By Me, Viewed By Me Interpretation Of ECG: Third EKG result following DOBUTamin 10. Rate From EC O2 Sat by Pulse Oximetry: 97 (RA) Pulse Ox Interpretation: Abnormal - Radiology CXR: Interpreted by Me CXR Interpretation: Yes: No Acute Disease Progress Note: EKG, blood work, and labs were ordered. Patient was given atropine sulfate, dextrose 50%, DOBUTamine IV, and sodium bicarbonate. First EKG showed idiopathic ventricular rhythm at 33. Second EKG following atropin was idioventricular rhythm at 33. After DOBUTamin 10 showed improvement to steady ventricular rhythm at 54. Reevaluation Time: 15:00 Reassessment Condition: Improved Critical Care Time - Critical Care Note Total Time (in mins): 90 Comments: Upon final re-evaluation patient is now awake, alert, and oriented. Documented critical care: time excludes all time spent performing seperately billable procedures. Medical Decision Making Medical Decision Making: Case discussed with Dr. Ortiz (director shopper marketing) at 1430 and agrees to STAT dialysis. Spoke to patient's PMD Dr. Lucas and agrees to admit. Spoke with Dr. Frausto of the ICU and agrees to admit patient. Dialysis nurse was contacted and agrees to STAT dialysis in the ICU. ICU course: calcium gluconate Insulin, D50 Sodium Bicarbonate Stat Hemodialysis in ICU arranged. Disposition Doctor Will See Patient In The: Hospital Counseled Patient/Family Regarding: Studies Performed, Diagnosis - Disposition Disposition: HOSPITALIZED Disposition Time: 00:39 Condition: SERIOUS - Clinical Impression Clinical Impression: Symptomatic bradycardia, Hyperkalemic syndrome - Scribe Statement The provider has reviewed the documentation as recorded by the Scribnancy Vale All medical record entries made by the Scribe were at my direction and personally dictated by me. I have reviewed the chart and agree that the record accurately reflects my personal performance of the history, physical exam, medical decision making, and the department course for this patient. I have also personally directed, reviewed, and agree with the discharge instructions and disposition.
--- NOTE | 2017-06-05 19:32 | CP.PCM.CON ---
History of Present Illness - History of Present Illness History of Present Illness: pt is seen and examined during hd, full consult is dictated #[id number] 1. esrd 2. hyperkalemia 3. dm 4. cad check k+ post hd Past Patient History - Infectious Disease Hx of Infectious Diseases: None - Past Medical History & Family History Past Medical History?: Yes - Past Social History Smoking Status: Former Smoker - PULMONARY Hx Asthma: Yes Hx Sleep Apnea: Yes - NEUROLOGICAL Hx Neurological Disorder: Yes HX Cerebrovascular Accident: Yes (LT SIDE WEAKNESS) - HEENT Hx HEENT Problems: Yes Hx Cataracts: Yes - RENAL Hx Chronic Kidney Disease: Yes - ENDOCRINE/METABOLIC Hx Endocrine Disorders: Yes Hx Diabetes Mellitus Type 2: Yes - HEMATOLOGICAL/ONCOLOGICAL Hx Anemia: Yes - INTEGUMENTARY Hx Dermatological Problems: Yes Other/Comment: healed sacral ulcer - MUSCULOSKELETAL/RHEUMATOLOGICAL Hx Musculoskeletal Disorders: Yes Hx Falls: Yes Hx Unsteady Gait: Yes Other/Comment: HX: MUSCLE WEAKNESS(GENERALIZED), Left sided body weakness due to CVA - GASTROINTESTINAL Hx Gastrointestinal Disorders: Yes Other/Comment: HX: DYSPHAGIA,UNSPECIFIED - GENITOURINARY/GYNECOLOGICAL Hx Genitourinary Disorders: No - PSYCHIATRIC Hx Depression: Yes ('MAJOR DEPRESSIVE DISORDER,SINGLE EPISODE,UNSPECIFIED") Hx Substance Use: No - ANESTHESIA Hx Anesthesia: Yes Hx Anesthesia Reactions: No Hx Malignant Hyperthermia: No Meds Allergies/Adverse Reactions: Allergies Allergy/AdvReac Type Severity Reaction Status Date / Time iodine Allergy Intermediate RASH Verified 04/11/17 09:37 aspirin Allergy Verified 04/11/17 09:37 clopidogrel bisulfate Allergy UNKNOWN Verified 04/11/17 09:37 [From Plavix] Penicillins Allergy UNKNOWN Verified 04/11/17 09:37 IV DYE Allergy Uncoded 04/11/17 09:38 - Medications Medications: Current Medications Famotidine (Pepcid) 20 mg IVP DAILY [facility] Last Admin: 06/05/17 16:36 Dose: 20 mg Heparin Sodium (Porcine) (Heparin) 5,000 units SC Q8H [facility] Last Admin: 06/05/17 16:36 Dose: 5,000 units Insulin Human Regular (Novolin R) 0 unit SC [facility] PRN Reason: Protocol Last Admin: 06/05/17 16:45 Dose: Not Given Results - Vital Signs Recent Vital Signs: Last Vital Signs Temp 97.4 F L 06/05/17 16:23 Pulse 67 11/14/17 19:00 Resp 19 06/05/17 19:00 BP 100/29 L 06/05/17 19:00 Pulse Ox 100 06/05/17 19:00 - Labs Result Diagrams: 06/05/17 14:28 06/05/17 19:38 Labs: Laboratory Results - last 24 hr 06/05/17 06/05/17 06/05/17 14:28 14:28 14:28 WBC 7.5 RBC 3.58 L Hgb 11.4 L Hct 36.7 MCV 102.5 H D MCH 31.7 H MCHC 30.9 L RDW 17.6 H Plt Count 147 MPV 9.6 Neut % (Auto) 75.1 H Lymph % (Auto) 10.3 L [place] % (Auto) 13.4 H Eos % (Auto) 0.9 Baso % (Auto) 0.3 Neut # 5.7 Lymph # 0.8 L [place] # 1.0 H Eos # 0.1 Baso # 0.0 PT 12.6 H INR 1.1 APTT 44 H pO2 VBG pH VBG pCO2 VBG HCO3 VBG Total CO2 VBG O2 Sat (Calc) VBG Base Excess VBG Potassium Glucose Lactate Crit Value Called To Crit Value Called By Crit Value Read Back Blood Gas Notified Time Sodium 135 Potassium 7.6 H* D Chloride 95 L Carbon Dioxide 26 Anion Gap 22 H BUN 100 H* D Creatinine 7.2 H Est GFR ( Amer) 9 Est GFR (Non-Af Amer) 8 POC Glucose (mg/dL) Random Glucose 114 H Calcium 8.5 L Total Bilirubin 1.0 AST 49 ALT 61 Alkaline Phosphatase 238 H Troponin I 0.0610 NT-Pro-B Natriuret Pep 42586 H Total Protein 7.2 Albumin 3.7 Globulin 3.5 Albumin/Globulin Ratio 1.1 TSH 3rd Generation 7.65 H Venous Blood Potassium 06/05/17 06/05/17 14:29 16:38 WBC RBC Hgb Hct MCV MCH MCHC RDW Plt Count MPV Neut % (Auto) Lymph % (Auto) [place] % (Auto) Eos % (Auto) Baso % (Auto) Neut # Lymph # [place] # Eos # Baso # PT INR APTT pO2 28 L VBG pH 7.24 L VBG pCO2 71 H* VBG HCO3 24.2 VBG Total CO2 32.6 H VBG O2 Sat (Calc) 53.6 VBG Base Excess 1.0 VBG Potassium 7.7 H* Glucose 122 H Lactate 1.8 Crit Value Called To Dr. hayes Crit Value Called By Amilcar amaral Crit Value Read Back Y Blood Gas Notified Time 1432 Sodium 138.0 Potassium Chloride 106.0 Carbon Dioxide Anion Gap BUN Creatinine Est GFR ( Amer) Est GFR (Non-Af Amer) POC Glucose (mg/dL) 89 Random Glucose Calcium Total Bilirubin AST ALT Alkaline Phosphatase Troponin I NT-Pro-B Natriuret Pep Total Protein Albumin Globulin Albumin/Globulin Ratio TSH 3rd Generation Venous Blood Potassium 7.7 H*
--- NOTE | 2017-06-06 04:16 | CON ---
REQUESTED BY: Theodore Lucas MD LOCATION: Patient is located in ICU, room 8. HISTORY OF PRESENT ILLNESS: Mr. Gonzales is about 66 years old elderly obese [place] male with a past medical history significant for diabetes, hypertension for more than 25 years, coronary artery disease, hyperlipidemia, status post CABG about 5-7 years ago, end-stage renal disease on hemodialysis for the last 2 years, CVA with left hemiparesis, [facility] who was brought to the emergency room this afternoon with a chief complaint of altered mental status from the patient's cousin, who is working in the [facility] and also the patient refused to eat this morning breakfast, lunch and patient was brought to the emergency room and patient was found to have idioventricular rhythm and also hypertensive and patient was found to have severe hyperkalemia. Subsequently, patient was treated with medication immediately in the emergency room then transferred to ICU for emergency hemodialysis. During my examination the patient is being dialyzed and patient is more alert and awake and following commands and tolerated hemodialysis. UF goal about 2.8 L. Patient's family at bedside. Patient denies any chest pain or palpitation. Denies any shortness of breath. Complaints of feeling thirsty once and drinks some fluids, not in distress. PAST MEDICAL HISTORY: Significant for longstanding hypertension, diabetes, hyperlipidemia, CVA with left-sided weakness, coronary artery disease status post CABG and end-stage renal disease on hemodialysis three times a week, on Tuesdays, , and Saturdays. PAST SURGICAL HISTORY: Status post CABG about 5-7 years ago and left upper extremity AV fistula. ALLERGIES: ALLERGIC TO ASPIRIN, PLAVIX, PENICILLIN AND IV DYE. SOCIAL HISTORY: Denies any smoking. Denies any alcohol. Denies any drugs. The patient is a resident of [facility]. The patient is single and he has 1 child back in [facility]. FAMILY HISTORY: Not significant. He has a very supportive family, cousin and also sister. MEDICATIONS: Current medication in the hospital; heparin 5000 units subcu q.8 hours and insulin per sliding scale and Pepcid 20 mg IV daily. His [facility] medication include silver sulfadiazine 1% one application topical every shift, midodrine 10 mg p.o. three times a week half an hour before dialysis, Crestor 10 mg at bedtime, DuoNeb inhaler, Claritin 10 mg p.o. daily, Tylenol, Cepacol throat lozenges, lactulose 20 g p.o. at bedtime, lidocaine, pilocarpine cream topical, losartan 100 mg p.o. daily, metoprolol 50 mg p.o., Renvela 800 mg p.o. t.i.d., Lyrica, Ambien, vitamin B complex, which is Nephro-Renaldo, Flomax, tramadol and Robitussin 100 mg p.o. q.6 hours. REVIEW OF THE SYSTEMS: Significant for decreased p.o. intake and altered mental status and also bradycardia idioventricular rhythm and severe hyperkalemia. All other review of systems are reviewed and are negative and also left-sided weakness. PHYSICAL EXAMINATION: His vital signs and physical exam as follows; VITAL SIGNS: His initial vital signs in the emergency room; blood pressure 74/45, pulse 43, respirations 16 and temperature 98.2, sat 98%. Height 5 feet 9 inches and weight is 221 pounds and his repeat vital signs at the end of the treatment of the dialysis; blood pressure , pulse 90, respirations 13, temperature 97.8, saturation 99%. Height 5 feet 9 inches, weight is 221 pounds. GENERAL: Mr. Gonzales is a 67 years old elderly [place]ese male, moderately built, moderately nourished, not in acute distress. HEENT: Pupils normal, reactive to light and accommodation. Conjunctivae pink. Sclerae anicteric. Tongue is moist. Trachea is midline. LUNGS: Symmetric on both sides. Bilateral breath sounds present. Clear on auscultation. CARDIOVASCULAR SYSTEM: [place] at the fifth intercostal space, midclavicular line. S1 and S2 audible. No murmur or gallop. ABDOMEN: Normal in appearance, soft, tympanic. No guarding. No rigidity. No hepatosplenomegaly. CENTRAL NERVOUS SYSTEM: The patient is alert, awake, oriented x2. Sensory and motor system is grossly within normal limits on the right side. The patient has left-sided weakness. EXTREMITIES: No cyanosis, no clubbing, no edema. LABORATORY DATA: Include as follows as of 06/05/2017; WBC 7.4, hemoglobin 11.4, hematocrit is 36.7 and platelets 147. PT 12.6 and INR 1.1, and PTT 44. VBG; pH 7.4 and pO2 28, pCO2 71 and bicarb is 24.2, saturation 53.6. Sodium 135, potassium is 7.6, chloride 95, CO2 26, anion gap 22, BUN 100, creatinine 7.2, glucose 114, calcium 8.5, total bili 1.0, AST 49, ALT 61, alkaline phosphatase 238. Troponin 0.061 and proBNP 41,600. Total protein 7.12, albumin is 3.7 and TSH is 7.65 and venous potassium is 7.7. Chest x-ray findings consistent with CHF, cardiomegaly, pulmonary venous congestion and bilateral pleural effusions. EKG; heart rate is 44 beats per minute and QRS complex is 170 msec and QT is 546. The other reports; repeat EKG, heart rate is 54 and QRS 144, QT is 446 and no P waves are visible, no consistent idioventricular rhythm. ASSESSMENT: In summary, Mr. Gonzales is a 67 years old elderly [place]ese male with history of longstanding hypertension, diabetes, end-stage renal disease, cerebrovascular accident with left-sided weakness, coronary artery disease status post coronary artery bypass graft and congestive heart failure, who was admitted with altered mental status and bradycardia and decreased p.o. intake and found to have severe hyperkalemia, potassium 7.7. 1. Hyperkalemia. Etiology is not clear, most likely secondary to renal failure and noncompliance with diet and cannot rule out secondary to beta-blockers, consider discontinue midodrine and repeat BMP and potassium post dialysis and repeat EKG in a.m. 2. CHF. 3. Coronary artery disease. 4. CVA with left-sided weakness. 5. Diabetes. Continue to monitor Accu-Cheks and discussed with the patient's cousin at bedside. Overall prognosis is guarded. We will follow with you. Thank you for allowing me to participate in your patient's care and consider low sodium, low potassium diet. Martin Ortiz MD
[2017-06-06 06:18] LABS: EOS # 0.1 K/uL (0.0-0.7); LYMPH # 0.8 K/uL (1.0-4.3); MEAN CORPUSCULAR HEMOGLOBIN 31.9 pg (27.0-31.0); MONO # 0.6 K/uL (0.0-0.8); WHITE BLOOD COUNT 5.1 K/uL (4.8-10.8)
[2017-06-06 06:22] LABS: EOS % 2.4 % (0.0-4.0); HEMATOCRIT 31.7 % (35.0-51.0); LYMPH % 16.7 % (20.0-40.0); MEAN CELL VOLUME 100.4 fL (80.0-94.0); MEAN CORPUSCULAR HGB CONC 31.8 g/dL (33.0-37.0); MONO % 10.9 % (0.0-10.0); NRBC % 0.3 % (0.0-2.0); RED CELL DISTRIBUTION WIDTH 17.8 % (11.5-14.5)
--- NOTE | 2017-06-06 06:38 | CP.PCM.HP ---
History of Present Illness - History of Present Illness History of Present Illness: CC : altered mental status; bradycardic HPI : Patient is a 67 year old male with PMHx of quadruple bypass in 2007, DM, HTN, ESRD, and CVA in 2016 who presents today with AMS. Patient went for dialysis, but he was confused and dialysis center sent him to the ED without being dialyzed to be evaluated. In ED patient's heart rate in the 30s and blood pressure in 70s over 30s. Patient was also found to be hyperkalemic at 7.6. Patient was given Calcium Gluconate, 1amp of D50, 10 units Insulin, Sodium Bicarb, Paricalcitol. Patient also given 1mg Atropine and started on Dobutamine drip. Patient seen in ED and slightly responsive. Patient complaining of pain from his buttocks. Patient denies chest pain. Patient is non - compliant with diet. ROS : unobtainable from patient at this time Present on Admission - Present on Admission Any Indicators Present on Admission: Yes History of DVT/PE: No History of Uncontrolled Diabetes: Yes Urinary Catheter: No Decubitus Ulcer Present: Yes Review of Systems - Review of Systems Systems not reviewed;Unavailable: Altered Mental Status - Constitutional Constitutional: Lethargy, Sleep Apnea - EENT Nose/Mouth/Throat: Nasal Congestion - Cardiovascular Cardiovascular: Dyspnea. absent: Pedal Edema - Respiratory Respiratory: Dyspnea, Snoring - Gastrointestinal Gastrointestinal: absent: Abdominal Pain, Melena, Nausea - Musculoskeletal Musculoskeletal: Arthralgias, Myalgias - Neurological Neurological: Abnormal Speech, Headaches Past Patient History - Infectious Disease Hx of Infectious Diseases: None - Past Medical History & Family History Past Medical History?: Yes - Past Social History Smoking Status: Former Smoker - CARDIAC Hx Congestive Heart Failure: Yes Hx Hypertension: Yes Hx Peripheral Edema: Yes - PULMONARY Hx Asthma: Yes Hx Sleep Apnea: Yes - NEUROLOGICAL Hx Neurological Disorder: Yes HX Cerebrovascular Accident: Yes (LT SIDE WEAKNESS) - HEENT Hx HEENT Problems: Yes Hx Cataracts: Yes - RENAL Hx Chronic Kidney Disease: Yes - ENDOCRINE/METABOLIC Hx Endocrine Disorders: Yes Hx Diabetes Mellitus Type 2: Yes - HEMATOLOGICAL/ONCOLOGICAL Hx Anemia: Yes - INTEGUMENTARY Hx Dermatological Problems: Yes Other/Comment: healed sacral ulcer - MUSCULOSKELETAL/RHEUMATOLOGICAL Hx Musculoskeletal Disorders: Yes Hx Falls: Yes Hx Unsteady Gait: Yes Other/Comment: HX: MUSCLE WEAKNESS(GENERALIZED), Left sided body weakness due to CVA - GASTROINTESTINAL Hx Gastrointestinal Disorders: Yes Other/Comment: HX: DYSPHAGIA,UNSPECIFIED - GENITOURINARY/GYNECOLOGICAL Hx Genitourinary Disorders: No - PSYCHIATRIC Hx Depression: Yes ('MAJOR DEPRESSIVE DISORDER,SINGLE EPISODE,UNSPECIFIED") Hx Substance Use: No - SURGICAL HISTORY Hx Coronary Artery Bypass Graft: Yes - ANESTHESIA Hx Anesthesia: Yes Hx Anesthesia Reactions: No Hx Malignant Hyperthermia: No Meds Allergies/Adverse Reactions: Allergies Allergy/AdvReac Type Severity Reaction Status Date / Time iodine Allergy Intermediate RASH Verified 04/11/17 09:37 aspirin Allergy Verified 04/11/17 09:37 clopidogrel bisulfate Allergy UNKNOWN Verified 04/11/17 09:37 [From Plavix] Penicillins Allergy UNKNOWN Verified 04/11/17 09:37 IV DYE Allergy Uncoded 04/11/17 09:38 Physical Exam - Constitutional Appears: No Acute Distress, Chronically Ill - Head Exam Head Exam: NORMAL INSPECTION - Eye Exam Eye Exam: absent: Scleral icterus - ENT Exam ENT Exam: Mucous Membranes Moist - Neck Exam Neck exam: Positive for: Full Rom - Respiratory Exam Respiratory Exam: Decreased Breath Sounds - Cardiovascular Exam Cardiovascular Exam: REGULAR RHYTHM - Extremities Exam Extremities exam: Negative for: calf tenderness, pedal edema - Back Exam Additional comments: left hemiparesis - Neurological Exam Neurological exam: Altered Results - Vital Signs Recent Vital Signs: Last Vital Signs Temp 98.4 F 06/06/17 04:00 Pulse 61 06/06/17 05:00 Resp 12 06/06/17 05:00 BP 113/29 L 06/06/17 05:00 Pulse Ox 100 06/06/17 05:00 - Labs Result Diagrams: 06/07/17 06:15 06/07/17 06:15 Labs: Laboratory Results - last 24 hr 06/05/17 06/05/17 06/05/17 14:28 14:28 14:28 WBC 7.5 RBC 3.58 L Hgb 11.4 L Hct 36.7 MCV 102.5 H D MCH 31.7 H MCHC 30.9 L RDW 17.6 H Plt Count 147 MPV 9.6 Neut % (Auto) 75.1 H Lymph % (Auto) 10.3 L [place] % (Auto) 13.4 H Eos % (Auto) 0.9 Baso % (Auto) 0.3 Neut # 5.7 Lymph # 0.8 L [place] # 1.0 H Eos # 0.1 Baso # 0.0 PT 12.6 H INR 1.1 APTT 44 H pO2 VBG pH VBG pCO2 VBG HCO3 VBG Total CO2 VBG O2 Sat (Calc) VBG Base Excess VBG Potassium Glucose Lactate Crit Value Called To Crit Value Called By Crit Value Read Back Blood Gas Notified Time Sodium 135 Potassium 7.6 H* D Chloride 95 L Carbon Dioxide 26 Anion Gap 22 H BUN 100 H* D Creatinine 7.2 H Est GFR ( Amer) 9 Est GFR (Non-Af Amer) 8 POC Glucose (mg/dL) Random Glucose 114 H Calcium 8.5 L Total Bilirubin 1.0 AST 49 ALT 61 Alkaline Phosphatase 238 H Troponin I 0.0610 NT-Pro-B Natriuret Pep 43082 H Total Protein 7.2 Albumin 3.7 Globulin 3.5 Albumin/Globulin Ratio 1.1 TSH 3rd Generation 7.65 H Venous Blood Potassium 06/05/17 06/05/17 06/05/17 14:29 16:38 19:38 WBC RBC Hgb Hct MCV MCH MCHC RDW Plt Count MPV Neut % (Auto) Lymph % (Auto) [place] % (Auto) Eos % (Auto) Baso % (Auto) Neut # Lymph # [place] # Eos # Baso # PT INR APTT pO2 28 L VBG pH 7.24 L VBG pCO2 71 H* VBG HCO3 24.2 VBG Total CO2 32.6 H VBG O2 Sat (Calc) 53.6 VBG Base Excess 1.0 VBG Potassium 7.7 H* Glucose 122 H Lactate 1.8 Crit Value Called To Dr. hayes Crit Value Called By Amilcar amaral Crit Value Read Back Y Blood Gas Notified Time 1432 Sodium 138.0 Potassium 3.6 Chloride 106.0 Carbon Dioxide Anion Gap BUN Creatinine Est GFR ( Amer) Est GFR (Non-Af Amer) POC Glucose (mg/dL) 89 Random Glucose Calcium Total Bilirubin AST ALT Alkaline Phosphatase Troponin I NT-Pro-B Natriuret Pep Total Protein Albumin Globulin Albumin/Globulin Ratio TSH 3rd Generation Venous Blood Potassium 7.7 H* 06/05/17 06/06/17 21:22 06:10 WBC 5.1 RBC 3.16 L Hgb 10.1 L Hct 31.7 L MCV 100.4 H D MCH 31.9 H MCHC 31.8 L RDW 17.8 H Plt Count 125 L D MPV 9.0 Neut % (Auto) 69.0 Lymph % (Auto) 16.7 L [place] % (Auto) 10.9 H Eos % (Auto) 2.4 Baso % (Auto) 1.0 Neut # 3.5 Lymph # 0.8 L [place] # 0.6 Eos # 0.1 Baso # 0.0 PT INR APTT pO2 VBG pH VBG pCO2 VBG HCO3 VBG Total CO2 VBG O2 Sat (Calc) VBG Base Excess VBG Potassium Glucose Lactate Crit Value Called To Crit Value Called By Crit Value Read Back Blood Gas Notified Time Sodium Potassium Chloride Carbon Dioxide Anion Gap BUN Creatinine Est GFR ( Amer) Est GFR (Non-Af Amer) POC Glucose (mg/dL) 77 Random Glucose Calcium Total Bilirubin AST ALT Alkaline Phosphatase Troponin I NT-Pro-B Natriuret Pep Total Protein Albumin Globulin Albumin/Globulin Ratio TSH 3rd Generation Venous Blood Potassium Assessment & Plan - Assessment and Plan (Free Text) Assessment: Altered mental status CAD Hyperkalemia ESRD T2dm HTN Plan: Stat hemodialysis Consult w/ Dr Magaña Neuro consult Admit to ICU
[2017-06-06 06:43] LABS: ALB/GLOB RATIO 0.8 (1.0-2.1); BILIRUBIN,TOTAL 0.6 mg/dL (0.2-1.3); CALCIUM 8.2 mg/dl (8.6-10.4); MAGNESIUM 2.3 mg/dL (1.6-2.3); POTASSIUM 5.1 mmol/L (3.6-5.2); TOTAL PROTEIN 7.3 g/dL (6.3-8.3)
[2017-06-06] MEDS: (Novolin R) Insulin Human Regular 100 units/ml vial SC SCH ×5 (07:58→22:00)
--- NOTE | 2017-06-06 11:01 | CT ---
PROCEDURE: CT HEAD WITHOUT CONTRAST. HISTORY: ams COMPARISON: None available. TECHNIQUE: Axial computed tomography images were obtained through the head/brain without intravenous contrast. Radiation dose: Total exam DLP = 852.56 mGy-cm. This CT exam was performed using one or more of the following dose reduction techniques: Automated exposure control, adjustment of the mA and/or kV according to patient size, and/or use of iterative reconstruction technique. FINDINGS: HEMORRHAGE: No intracranial hemorrhage. BRAIN: No mass effect or edema. Minimal diffuse age-appropriate atrophy. Minimal periventricular white matter lucency consistent with chronic microvascular ischemic change. No evidence of acute infarct. VENTRICLES: Unremarkable. No hydrocephalus. CALVARIUM: Unremarkable. PARANASAL SINUSES: Chronic sphenoid and ethmoid sinusitis. MASTOID AIR CELLS: Unremarkable as visualized. No inflammatory changes. OTHER FINDINGS: None. IMPRESSION: No intracranial mass, hemorrhage or evidence of acute infarct. Chronic paranasal sinusitis. Age-appropriate involutional change.
--- NOTE | 2017-06-06 12:42 | CP.CCUPN ---
<Lashonda Ojeda - Last Filed: 06/06/17 13:35> CCU Subjective - Physician Review Events Since Last Encounter (Free Text): Patient seen and examined at bedside and in no acute distress. Patient says he doesn't feel good because his buttocks hurts him. Patient knows he is [facility]. Patient knows he got dialysis yesterday. CCU Objective - Vital Signs / Intake & Output Vital Signs (Last 4 hours): Vital Signs Pulse Resp BP Pulse Ox 06/06/17 12:00 68 18 98 06/06/17 11:15 68 16 130/38 L 100 06/06/17 11:00 69 16 99 06/06/17 10:01 67 15 125/32 L 100 06/06/17 10:00 68 14 94 L 06/06/17 09:01 73 13 138/32 L 98 06/06/17 09:00 73 14 94 L Intake and Output (Last 8hrs): Intake & Output 06/05/17 06/06/17 06/06/17 22:59 06:59 14:59 Intake Total 100 Output Total 0 0 0 Balance 0 0 100 Weight 221 lb 209 lb Intake: Oral 100 Output: Urine 0 0 0 Urine, Voided 0 0 0 Other: # Bowel Movements 1 - Physical Exam Head: Positive for: Atraumatic, Normocephalic Extroacular Muscles: Positive for: EOMI Mouth: Positive for: Moist Mucous Membranes Respiratory/Chest: Positive for: Rhonchi. Negative for: Respiratory Distress, Accessory Muscle Use Cardiovascular: Positive for: Regular Rate and Rhythm, Normal S1, S2 Abdomen: Negative for: Tenderness, Distention Back: Positive for: Other (abcess opened and draining ) Lower Extremity: Positive for: Edema Skin: Positive for: Warm, Normal Color Psychiatric: Positive for: Alert, Oriented x 3 - Medications Active Medications: Active Medications Generic Name Dose Route Start Last Admin Trade Name Freq PRN Reason Stop Dose Admin Famotidine 20 mg 06/05/17 16:30 06/06/17 09:51 Pepcid IVP 20 mg DAILY BELL Administration Heparin Sodium (Porcine) 5,000 units 06/05/17 16:30 06/06/17 09:51 Heparin SC 5,000 units Q8H BELL Administration Insulin Human Regular 0 unit 06/05/17 16:30 06/06/17 11:42 Novolin R SC Not Given ACHS [facility] Protocol - Patient Studies Lab Studies: Lab Studies 06/06/17 06/06/17 06/06/17 Range/Units 07:32 06:10 06:10 WBC (4.8-10.8) K/uL RBC (4.40-5.90) Mil/uL Hgb (12.0-18.0) g/dL Hct (35.0-51.0) % MCV (80.0-94.0) fL MCH (27.0-31.0) pg MCHC (33.0-37.0) g/dL RDW (11.5-14.5) % Plt Count (130-400) K/uL MPV (7.2-11.7) fL Neut % (Auto) (50.0-75.0) % Lymph % (Auto) (20.0-40.0) % Hoke % (Auto) (0.0-10.0) % Eos % (Auto) (0.0-4.0) % Baso % (Auto) (0.0-2.0) % Neut # (1.8-7.0) K/uL Lymph # (1.0-4.3) K/uL Hoke # (0.0-0.8) K/uL Eos # (0.0-0.7) K/uL Baso # (0.0-0.2) K/uL PT (9.7-12.2) SECONDS INR APTT (21-34) SECONDS pO2 (30-55) mm/Hg VBG pH (7.32-7.43) VBG pCO2 (40-60) mmHg VBG HCO3 mmol/L VBG Total CO2 (22-28) mmol/L VBG O2 Sat (Calc) (40-65) % VBG Base Excess (0.0-2.0) mmol/L VBG Potassium (3.6-5.2) mmol/L Glucose (75-110) mg/dl Lactate (0.7-2.1) mmol/L Crit Value Called To Crit Value Called By Crit Value Read Back Blood Gas Notified Time Sodium 135 (132-148) mmol/L Potassium 5.1 (3.6-5.2) mmol/L Chloride 95 L (98-107) mmol/L Carbon Dioxide 28 (22-30) mmol/L Anion Gap 17 (10-20) BUN 51 H (9-20) mg/dL Creatinine 4.6 H (0.8-1.5) mg/dL Est GFR ( Amer) 16 Est GFR (Non-Af Amer) 13 POC Glucose (mg/dL) 81 (65-110) mg/dL Random Glucose 69 L (75-110) mg/dL Calcium 8.2 L (8.6-10.4) mg/dl Phosphorus 6.0 H (2.5-4.5) mg/dL Magnesium 2.3 (1.6-2.3) mg/dL Total Bilirubin 0.6 (0.2-1.3) mg/dL AST 34 (17-59) U/L ALT 59 (21-72) U/L Alkaline Phosphatase 199 H (38-126) U/L Troponin I (0.00-0.120) ng/mL NT-Pro-B Natriuret Pep (0-900) pg/mL Total Protein 7.3 (6.3-8.3) g/dL Albumin 3.2 L (3.5-5.0) g/dL Globulin 4.1 H (2.2-3.9) gm/dL Albumin/Globulin Ratio 0.8 L (1.0-2.1) Free T4 0.97 (0.78-2.19) ng/dL TSH 3rd Generation (0.46-4.68) mIU/L Venous Blood Potassium (3.6-5.2) mmol/L 06/06/17 06/05/17 06/05/17 Range/Units 06:10 21:22 19:38 WBC 5.1 (4.8-10.8) K/uL RBC 3.16 L (4.40-5.90) Mil/uL Hgb 10.1 L (12.0-18.0) g/dL Hct 31.7 L (35.0-51.0) % MCV 100.4 H D (80.0-94.0) fL MCH 31.9 H (27.0-31.0) pg MCHC 31.8 L (33.0-37.0) g/dL RDW 17.8 H (11.5-14.5) % Plt Count 125 L D (130-400) K/uL MPV 9.0 (7.2-11.7) fL Neut % (Auto) 69.0 (50.0-75.0) % Lymph % (Auto) 16.7 L (20.0-40.0) % Hoke % (Auto) 10.9 H (0.0-10.0) % Eos % (Auto) 2.4 (0.0-4.0) % Baso % (Auto) 1.0 (0.0-2.0) % Neut # 3.5 (1.8-7.0) K/uL Lymph # 0.8 L (1.0-4.3) K/uL Hoke # 0.6 (0.0-0.8) K/uL Eos # 0.1 (0.0-0.7) K/uL Baso # 0.0 (0.0-0.2) K/uL PT (9.7-12.2) SECONDS INR APTT (21-34) SECONDS pO2 (30-55) mm/Hg VBG pH (7.32-7.43) VBG pCO2 (40-60) mmHg VBG HCO3 mmol/L VBG Total CO2 (22-28) mmol/L VBG O2 Sat (Calc) (40-65) % VBG Base Excess (0.0-2.0) mmol/L VBG Potassium (3.6-5.2) mmol/L Glucose (75-110) mg/dl Lactate (0.7-2.1) mmol/L Crit Value Called To Crit Value Called By Crit Value Read Back Blood Gas Notified Time Sodium (132-148) mmol/L Potassium 3.6 (3.6-5.2) mmol/L Chloride (98-107) mmol/L Carbon Dioxide (22-30) mmol/L Anion Gap (10-20) BUN (9-20) mg/dL Creatinine (0.8-1.5) mg/dL Est GFR ( Amer) Est GFR (Non-Af Amer) POC Glucose (mg/dL) 77 (65-110) mg/dL Random Glucose (75-110) mg/dL Calcium (8.6-10.4) mg/dl Phosphorus (2.5-4.5) mg/dL Magnesium (1.6-2.3) mg/dL Total Bilirubin (0.2-1.3) mg/dL AST (17-59) U/L ALT (21-72) U/L Alkaline Phosphatase (38-126) U/L Troponin I (0.00-0.120) ng/mL NT-Pro-B Natriuret Pep (0-900) pg/mL Total Protein (6.3-8.3) g/dL Albumin (3.5-5.0) g/dL Globulin (2.2-3.9) gm/dL Albumin/Globulin Ratio (1.0-2.1) Free T4 (0.78-2.19) ng/dL TSH 3rd Generation (0.46-4.68) mIU/L Venous Blood Potassium (3.6-5.2) mmol/L 06/05/17 06/05/17 06/05/17 Range/Units 16:38 14:29 14:28 WBC (4.8-10.8) K/uL RBC (4.40-5.90) Mil/uL Hgb (12.0-18.0) g/dL Hct (35.0-51.0) % MCV (80.0-94.0) fL MCH (27.0-31.0) pg MCHC (33.0-37.0) g/dL RDW (11.5-14.5) % Plt Count (130-400) K/uL MPV (7.2-11.7) fL Neut % (Auto) (50.0-75.0) % Lymph % (Auto) (20.0-40.0) % Hoke % (Auto) (0.0-10.0) % Eos % (Auto) (0.0-4.0) % Baso % (Auto) (0.0-2.0) % Neut # (1.8-7.0) K/uL Lymph # (1.0-4.3) K/uL Hoke # (0.0-0.8) K/uL Eos # (0.0-0.7) K/uL Baso # (0.0-0.2) K/uL PT (9.7-12.2) SECONDS INR APTT (21-34) SECONDS pO2 28 L (30-55) mm/Hg VBG pH 7.24 L (7.32-7.43) VBG pCO2 71 H* (40-60) mmHg VBG HCO3 24.2 mmol/L VBG Total CO2 32.6 H (22-28) mmol/L VBG O2 Sat (Calc) 53.6 (40-65) % VBG Base Excess 1.0 (0.0-2.0) mmol/L VBG Potassium 7.7 H* (3.6-5.2) mmol/L Glucose 122 H (75-110) mg/dl Lactate 1.8 (0.7-2.1) mmol/L Crit Value Called To Dr. hayes Crit Value Called By Amilcar amaral Crit Value Read Back Y Blood Gas Notified Time 1432 Sodium 138.0 135 (132-148) mmol/L Potassium 7.6 H* D (3.6-5.2) mmol/L Chloride 106.0 95 L (98-107) mmol/L Carbon Dioxide 26 (22-30) mmol/L Anion Gap 22 H (10-20) BUN 100 H* D (9-20) mg/dL Creatinine 7.2 H (0.8-1.5) mg/dL Est GFR ( Amer) 9 Est GFR (Non-Af Amer) 8 POC Glucose (mg/dL) 89 (65-110) mg/dL Random Glucose 114 H (75-110) mg/dL Calcium 8.5 L (8.6-10.4) mg/dl Phosphorus (2.5-4.5) mg/dL Magnesium (1.6-2.3) mg/dL Total Bilirubin 1.0 (0.2-1.3) mg/dL AST 49 (17-59) U/L ALT 61 (21-72) U/L Alkaline Phosphatase 238 H (38-126) U/L Troponin I 0.0610 (0.00-0.120) ng/mL NT-Pro-B Natriuret Pep 73644 H (0-900) pg/mL Total Protein 7.2 (6.3-8.3) g/dL Albumin 3.7 (3.5-5.0) g/dL Globulin 3.5 (2.2-3.9) gm/dL Albumin/Globulin Ratio 1.1 (1.0-2.1) Free T4 (0.78-2.19) ng/dL TSH 3rd Generation 7.65 H (0.46-4.68) mIU/L Venous Blood Potassium 7.7 H* (3.6-5.2) mmol/L 06/05/17 06/05/17 Range/Units 14:28 14:28 WBC 7.5 (4.8-10.8) K/uL RBC 3.58 L (4.40-5.90) Mil/uL Hgb 11.4 L (12.0-18.0) g/dL Hct 36.7 (35.0-51.0) % MCV 102.5 H D (80.0-94.0) fL MCH 31.7 H (27.0-31.0) pg MCHC 30.9 L (33.0-37.0) g/dL RDW 17.6 H (11.5-14.5) % Plt Count 147 (130-400) K/uL MPV 9.6 (7.2-11.7) fL Neut % (Auto) 75.1 H (50.0-75.0) % Lymph % (Auto) 10.3 L (20.0-40.0) % Hoke % (Auto) 13.4 H (0.0-10.0) % Eos % (Auto) 0.9 (0.0-4.0) % Baso % (Auto) 0.3 (0.0-2.0) % Neut # 5.7 (1.8-7.0) K/uL Lymph # 0.8 L (1.0-4.3) K/uL Hoke # 1.0 H (0.0-0.8) K/uL Eos # 0.1 (0.0-0.7) K/uL Baso # 0.0 (0.0-0.2) K/uL PT 12.6 H (9.7-12.2) SECONDS INR 1.1 APTT 44 H (21-34) SECONDS pO2 (30-55) mm/Hg VBG pH (7.32-7.43) VBG pCO2 (40-60) mmHg VBG HCO3 mmol/L VBG Total CO2 (22-28) mmol/L VBG O2 Sat (Calc) (40-65) % VBG Base Excess (0.0-2.0) mmol/L VBG Potassium (3.6-5.2) mmol/L Glucose (75-110) mg/dl Lactate (0.7-2.1) mmol/L Crit Value Called To Crit Value Called By Crit Value Read Back Blood Gas Notified Time Sodium (132-148) mmol/L Potassium (3.6-5.2) mmol/L Chloride (98-107) mmol/L Carbon Dioxide (22-30) mmol/L Anion Gap (10-20) BUN (9-20) mg/dL Creatinine (0.8-1.5) mg/dL Est GFR ( Amer) Est GFR (Non-Af Amer) POC Glucose (mg/dL) (65-110) mg/dL Random Glucose (75-110) mg/dL Calcium (8.6-10.4) mg/dl Phosphorus (2.5-4.5) mg/dL Magnesium (1.6-2.3) mg/dL Total Bilirubin (0.2-1.3) mg/dL AST (17-59) U/L ALT (21-72) U/L Alkaline Phosphatase (38-126) U/L Troponin I (0.00-0.120) ng/mL NT-Pro-B Natriuret Pep (0-900) pg/mL Total Protein (6.3-8.3) g/dL Albumin (3.5-5.0) g/dL Globulin (2.2-3.9) gm/dL Albumin/Globulin Ratio (1.0-2.1) Free T4 (0.78-2.19) ng/dL TSH 3rd Generation (0.46-4.68) mIU/L Venous Blood Potassium (3.6-5.2) mmol/L Laboratory Results - last 24 hr 06/05/17 06/05/17 06/05/17 14:28 14:28 14:28 WBC 7.5 RBC 3.58 L Hgb 11.4 L Hct 36.7 MCV 102.5 H D MCH 31.7 H MCHC 30.9 L RDW 17.6 H Plt Count 147 MPV 9.6 Neut % (Auto) 75.1 H Lymph % (Auto) 10.3 L Hoke % (Auto) 13.4 H Eos % (Auto) 0.9 Baso % (Auto) 0.3 Neut # 5.7 Lymph # 0.8 L Hoke # 1.0 H Eos # 0.1 Baso # 0.0 PT 12.6 H INR 1.1 APTT 44 H pO2 VBG pH VBG pCO2 VBG HCO3 VBG Total CO2 VBG O2 Sat (Calc) VBG Base Excess VBG Potassium Glucose Lactate Crit Value Called To Crit Value Called By Crit Value Read Back Blood Gas Notified Time Sodium 135 Potassium 7.6 H* D Chloride 95 L Carbon Dioxide 26 Anion Gap 22 H BUN 100 H* D Creatinine 7.2 H Est GFR ( Amer) 9 Est GFR (Non-Af Amer) 8 POC Glucose (mg/dL) Random Glucose 114 H Calcium 8.5 L Phosphorus Magnesium Total Bilirubin 1.0 AST 49 ALT 61 Alkaline Phosphatase 238 H Troponin I 0.0610 NT-Pro-B Natriuret Pep 69909 H Total Protein 7.2 Albumin 3.7 Globulin 3.5 Albumin/Globulin Ratio 1.1 Free T4 TSH 3rd Generation 7.65 H Venous Blood Potassium 06/05/17 06/05/17 06/05/17 14:29 16:38 19:38 WBC RBC Hgb Hct MCV MCH MCHC RDW Plt Count MPV Neut % (Auto) Lymph % (Auto) Hoke % (Auto) Eos % (Auto) Baso % (Auto) Neut # Lymph # Hoke # Eos # Baso # PT INR APTT pO2 28 L VBG pH 7.24 L VBG pCO2 71 H* VBG HCO3 24.2 VBG Total CO2 32.6 H VBG O2 Sat (Calc) 53.6 VBG Base Excess 1.0 VBG Potassium 7.7 H* Glucose 122 H Lactate 1.8 Crit Value Called To Dr. hayes Crit Value Called By Amilcar amaral Crit Value Read Back Y Blood Gas Notified Time 1432 Sodium 138.0 Potassium 3.6 Chloride 106.0 Carbon Dioxide Anion Gap BUN Creatinine Est GFR ( Amer) Est GFR (Non-Af Amer) POC Glucose (mg/dL) 89 Random Glucose Calcium Phosphorus Magnesium Total Bilirubin AST ALT Alkaline Phosphatase Troponin I NT-Pro-B Natriuret Pep Total Protein Albumin Globulin Albumin/Globulin Ratio Free T4 TSH 3rd Generation Venous Blood Potassium 7.7 H* 06/05/17 06/06/17 06/06/17 21:22 06:10 06:10 WBC 5.1 RBC 3.16 L Hgb 10.1 L Hct 31.7 L MCV 100.4 H D MCH 31.9 H MCHC 31.8 L RDW 17.8 H Plt Count 125 L D MPV 9.0 Neut % (Auto) 69.0 Lymph % (Auto) 16.7 L Hoke % (Auto) 10.9 H Eos % (Auto) 2.4 Baso % (Auto) 1.0 Neut # 3.5 Lymph # 0.8 L Hoke # 0.6 Eos # 0.1 Baso # 0.0 PT INR APTT pO2 VBG pH VBG pCO2 VBG HCO3 VBG Total CO2 VBG O2 Sat (Calc) VBG Base Excess VBG Potassium Glucose Lactate Crit Value Called To Crit Value Called By Crit Value Read Back Blood Gas Notified Time Sodium 135 Potassium 5.1 Chloride 95 L Carbon Dioxide 28 Anion Gap 17 BUN 51 H Creatinine 4.6 H Est GFR ( Amer) 16 Est GFR (Non-Af Amer) 13 POC Glucose (mg/dL) 77 Random Glucose 69 L Calcium 8.2 L Phosphorus 6.0 H Magnesium 2.3 Total Bilirubin 0.6 AST 34 ALT 59 Alkaline Phosphatase 199 H Troponin I NT-Pro-B Natriuret Pep Total Protein 7.3 Albumin 3.2 L Globulin 4.1 H Albumin/Globulin Ratio 0.8 L Free T4 TSH 3rd Generation Venous Blood Potassium 06/06/17 06/06/17 06:10 07:32 WBC RBC Hgb Hct MCV MCH MCHC RDW Plt Count MPV Neut % (Auto) Lymph % (Auto) Hoke % (Auto) Eos % (Auto) Baso % (Auto) Neut # Lymph # Hoke # Eos # Baso # PT INR APTT pO2 VBG pH VBG pCO2 VBG HCO3 VBG Total CO2 VBG O2 Sat (Calc) VBG Base Excess VBG Potassium Glucose Lactate Crit Value Called To Crit Value Called By Crit Value Read Back Blood Gas Notified Time Sodium Potassium Chloride Carbon Dioxide Anion Gap BUN Creatinine Est GFR ( Amer) Est GFR (Non-Af Amer) POC Glucose (mg/dL) 81 Random Glucose Calcium Phosphorus Magnesium Total Bilirubin AST ALT Alkaline Phosphatase Troponin I NT-Pro-B Natriuret Pep Total Protein Albumin Globulin Albumin/Globulin Ratio Free T4 0.97 TSH 3rd Generation Venous Blood Potassium EKG/Cardiology Studies: Cardiology / EKG Studies 06/05/17 14:25 ELECTROCARDIOGRAM Stat Comment: Mode Of Transportation: BED Reason For Exam: SOB Isolation: Contact 06/05/17 15:10 EKG [ELECTROCARDIOGRAM] Stat Comment: ED 5 Mode Of Transportation: STRETCHER Reason For Exam: repeat Isolation: Contact Fingerstick Blood Sugar Results: 98 Review of Systems - Constitutional Constitutional: absent: Fever, Chills, Sweats - Cardiovascular Cardiovascular: absent: Chest Pain, Dyspnea - Gastrointestinal Gastrointestinal: absent: Constipation, Diarrhea, Nausea, Vomiting - Genitourinary Genitourinary: absent: Difficulty Urinating Critical Care Progress Note - Nutrition Nutrition: Nutrition Category Date Time Status Dysphagia/Modified Consistency Diet [DIET] Diets 06/07/17 Breakfast Active Renal Diet [DIET] Diets 06/06/17 Breakfast Active Assessment/Plan - Assessment and Plan (Free Text) Assessment: Patient is a 67 year old male with PMHx of quadruple bypass in 2006, DM, HTN, ESRD, and CVA in 2016 who presents today for AMS and missing today's dialysis. Neuro: AMS 2/2 bradycardia and hyperkalemia, hx stroke Head CT (06/06): no intracranial mass, hemorrhage or evidence of acute infarct. Chronic paranasal sinusitis. Age-appropriate involutional change. Dr. Machuca consulted, help appreciated Cardio: bradycardia 2/2 hyperkalemia, hx quadruple bypass, HTN -1mg Atropine given in ED -Dobutamine drip started in ED, stopped same day Pulm: -cxray (06/05): findings consistent with CHF. Cardiomegaly, pulmonary venous congestion and bilateral pleural effusions -most likely secondary to fluid overload from ESRD Nephro: ESRD -emergent dialysis done upon admission, K+ 7.6 -Calcium Gluconate, 1amp of D50, 10 units Insulin, Sodium Bicarb given in ED Dr. Ortiz consulted, help appreciated Endo: DM -accuchecks ACHS -ISS -TSH: 7.65 -free T4: .97 Skin: right back abscess draining wound care consulted f/u wound culture Prophylaxis: GI: Pepcid 20 mg ivp daily DVT: Heparin 5000 u sc q8h <Joey Frausto S - Last Filed: 06/06/17 17:42> CCU Objective - Vital Signs / Intake & Output Vital Signs (Last 4 hours): Vital Signs Temp Pulse Resp BP Pulse Ox 06/06/17 17:00 67 13 100 06/06/17 16:19 68 16 130/29 L 100 06/06/17 16:16 68 10 L 115/28 L 06/06/17 16:00 98.2 F 68 13 100 06/06/17 15:15 69 14 132/34 L 99 06/06/17 15:00 69 14 100 06/06/17 14:15 70 14 134/38 L 100 06/06/17 14:00 70 15 100 Intake and Output (Last 8hrs): Intake & Output 06/06/17 06/06/17 06/06/17 06:59 14:59 22:59 Intake Total 250 100 Output Total 0 0 0 Balance 0 250 100 Weight 209 lb Intake: Oral 250 100 Output: Urine 0 0 0 Urine, Voided 0 0 0 Other: # Bowel Movements 1 - Medications Active Medications: Active Medications Generic Name Dose Route Start Last Admin Trade Name Freq PRN Reason Stop Dose Admin Albuterol/Ipratropium 3 ml 06/06/17 16:54 06/06/17 17:06 Duoneb 3 Mg/0.5 Mg (3 Ml) Ud INH 3 ml RQ6 PRN Administration Shortness of Breath Famotidine 20 mg 06/05/17 16:30 06/06/17 09:51 Pepcid IVP 20 mg DAILY BELL Administration Heparin Sodium (Porcine) 5,000 units 06/05/17 16:30 06/06/17 16:39 Heparin SC 5,000 units Q8H BELL Administration Insulin Human Regular 0 unit 06/05/17 16:30 06/06/17 16:33 Novolin R SC Not Given ACHS [facility] Protocol - Patient Studies Lab Studies: Lab Studies 06/06/17 06/06/17 06/06/17 Range/Units 16:25 11:34 07:32 WBC (4.8-10.8) K/uL RBC (4.40-5.90) Mil/uL Hgb (12.0-18.0) g/dL Hct (35.0-51.0) % MCV (80.0-94.0) fL MCH (27.0-31.0) pg MCHC (33.0-37.0) g/dL RDW (11.5-14.5) % Plt Count (130-400) K/uL MPV (7.2-11.7) fL Neut % (Auto) (50.0-75.0) % Lymph % (Auto) (20.0-40.0) % Hoke % (Auto) (0.0-10.0) % Eos % (Auto) (0.0-4.0) % Baso % (Auto) (0.0-2.0) % Neut # (1.8-7.0) K/uL Lymph # (1.0-4.3) K/uL Hoke # (0.0-0.8) K/uL Eos # (0.0-0.7) K/uL Baso # (0.0-0.2) K/uL Sodium (132-148) mmol/L Potassium (3.6-5.2) mmol/L Chloride (98-107) mmol/L Carbon Dioxide (22-30) mmol/L Anion Gap (10-20) BUN (9-20) mg/dL Creatinine (0.8-1.5) mg/dL Est GFR ( Amer) Est GFR (Non-Af Amer) POC Glucose (mg/dL) 82 96 81 (65-110) mg/dL Random Glucose (75-110) mg/dL Calcium (8.6-10.4) mg/dl Phosphorus (2.5-4.5) mg/dL Magnesium (1.6-2.3) mg/dL Total Bilirubin (0.2-1.3) mg/dL AST (17-59) U/L ALT (21-72) U/L Alkaline Phosphatase (38-126) U/L Total Protein (6.3-8.3) g/dL Albumin (3.5-5.0) g/dL Globulin (2.2-3.9) gm/dL Albumin/Globulin Ratio (1.0-2.1) Free T4 (0.78-2.19) ng/dL 06/06/17 06/06/17 06/06/17 Range/Units 06:10 06:10 06:10 WBC 5.1 (4.8-10.8) K/uL RBC 3.16 L (4.40-5.90) Mil/uL Hgb 10.1 L (12.0-18.0) g/dL Hct 31.7 L (35.0-51.0) % MCV 100.4 H D (80.0-94.0) fL MCH 31.9 H (27.0-31.0) pg MCHC 31.8 L (33.0-37.0) g/dL RDW 17.8 H (11.5-14.5) % Plt Count 125 L D (130-400) K/uL MPV 9.0 (7.2-11.7) fL Neut % (Auto) 69.0 (50.0-75.0) % Lymph % (Auto) 16.7 L (20.0-40.0) % Hoke % (Auto) 10.9 H (0.0-10.0) % Eos % (Auto) 2.4 (0.0-4.0) % Baso % (Auto) 1.0 (0.0-2.0) % Neut # 3.5 (1.8-7.0) K/uL Lymph # 0.8 L (1.0-4.3) K/uL Hoke # 0.6 (0.0-0.8) K/uL Eos # 0.1 (0.0-0.7) K/uL Baso # 0.0 (0.0-0.2) K/uL Sodium 135 (132-148) mmol/L Potassium 5.1 (3.6-5.2) mmol/L Chloride 95 L (98-107) mmol/L Carbon Dioxide 28 (22-30) mmol/L Anion Gap 17 (10-20) BUN 51 H (9-20) mg/dL Creatinine 4.6 H (0.8-1.5) mg/dL Est GFR ( Amer) 16 Est GFR (Non-Af Amer) 13 POC Glucose (mg/dL) (65-110) mg/dL Random Glucose 69 L (75-110) mg/dL Calcium 8.2 L (8.6-10.4) mg/dl Phosphorus 6.0 H (2.5-4.5) mg/dL Magnesium 2.3 (1.6-2.3) mg/dL Total Bilirubin 0.6 (0.2-1.3) mg/dL AST 34 (17-59) U/L ALT 59 (21-72) U/L Alkaline Phosphatase 199 H (38-126) U/L Total Protein 7.3 (6.3-8.3) g/dL Albumin 3.2 L (3.5-5.0) g/dL Globulin 4.1 H (2.2-3.9) gm/dL Albumin/Globulin Ratio 0.8 L (1.0-2.1) Free T4 0.97 (0.78-2.19) ng/dL 06/05/17 06/05/17 Range/Units 21:22 19:38 WBC (4.8-10.8) K/uL RBC (4.40-5.90) Mil/uL Hgb (12.0-18.0) g/dL Hct (35.0-51.0) % MCV (80.0-94.0) fL MCH (27.0-31.0) pg MCHC (33.0-37.0) g/dL RDW (11.5-14.5) % Plt Count (130-400) K/uL MPV (7.2-11.7) fL Neut % (Auto) (50.0-75.0) % Lymph % (Auto) (20.0-40.0) % Hoke % (Auto) (0.0-10.0) % Eos % (Auto) (0.0-4.0) % Baso % (Auto) (0.0-2.0) % Neut # (1.8-7.0) K/uL Lymph # (1.0-4.3) K/uL Hoke # (0.0-0.8) K/uL Eos # (0.0-0.7) K/uL Baso # (0.0-0.2) K/uL Sodium (132-148) mmol/L Potassium 3.6 (3.6-5.2) mmol/L Chloride (98-107) mmol/L Carbon Dioxide (22-30) mmol/L Anion Gap (10-20) BUN (9-20) mg/dL Creatinine (0.8-1.5) mg/dL Est GFR ( Amer) Est GFR (Non-Af Amer) POC Glucose (mg/dL) 77 (65-110) mg/dL Random Glucose (75-110) mg/dL Calcium (8.6-10.4) mg/dl Phosphorus (2.5-4.5) mg/dL Magnesium (1.6-2.3) mg/dL Total Bilirubin (0.2-1.3) mg/dL AST (17-59) U/L ALT (21-72) U/L Alkaline Phosphatase (38-126) U/L Total Protein (6.3-8.3) g/dL Albumin (3.5-5.0) g/dL Globulin (2.2-3.9) gm/dL Albumin/Globulin Ratio (1.0-2.1) Free T4 (0.78-2.19) ng/dL Laboratory Results - last 24 hr 06/05/17 06/05/17 06/06/17 19:38 21:22 06:10 WBC 5.1 RBC 3.16 L Hgb 10.1 L Hct 31.7 L MCV 100.4 H D MCH 31.9 H MCHC 31.8 L RDW 17.8 H Plt Count 125 L D MPV 9.0 Neut % (Auto) 69.0 Lymph % (Auto) 16.7 L Hoke % (Auto) 10.9 H Eos % (Auto) 2.4 Baso % (Auto) 1.0 Neut # 3.5 Lymph # 0.8 L Hoke # 0.6 Eos # 0.1 Baso # 0.0 Sodium Potassium 3.6 Chloride Carbon Dioxide Anion Gap BUN Creatinine Est GFR ( Amer) Est GFR (Non-Af Amer) POC Glucose (mg/dL) 77 Random Glucose Calcium Phosphorus Magnesium Total Bilirubin AST ALT Alkaline Phosphatase Total Protein Albumin Globulin Albumin/Globulin Ratio Free T4 06/06/17 06/06/17 06/06/17 06:10 06:10 07:32 WBC RBC Hgb Hct MCV MCH MCHC RDW Plt Count MPV Neut % (Auto) Lymph % (Auto) Hoke % (Auto) Eos % (Auto) Baso % (Auto) Neut # Lymph # Hoke # Eos # Baso # Sodium 135 Potassium 5.1 Chloride 95 L Carbon Dioxide 28 Anion Gap 17 BUN 51 H Creatinine 4.6 H Est GFR ( Amer) 16 Est GFR (Non-Af Amer) 13 POC Glucose (mg/dL) 81 Random Glucose 69 L Calcium 8.2 L Phosphorus 6.0 H Magnesium 2.3 Total Bilirubin 0.6 AST 34 ALT 59 Alkaline Phosphatase 199 H Total Protein 7.3 Albumin 3.2 L Globulin 4.1 H Albumin/Globulin Ratio 0.8 L Free T4 0.97 06/06/17 06/06/17 11:34 16:25 WBC RBC Hgb Hct MCV MCH MCHC RDW Plt Count MPV Neut % (Auto) Lymph % (Auto) Hoke % (Auto) Eos % (Auto) Baso % (Auto) Neut # Lymph # Hoke # Eos # Baso # Sodium Potassium Chloride Carbon Dioxide Anion Gap BUN Creatinine Est GFR ( Amer) Est GFR (Non-Af Amer) POC Glucose (mg/dL) 96 82 Random Glucose Calcium Phosphorus Magnesium Total Bilirubin AST ALT Alkaline Phosphatase Total Protein Albumin Globulin Albumin/Globulin Ratio Free T4 Critical Care Progress Note - Nutrition Nutrition: Nutrition Category Date Time Status Dysphagia/Modified Consistency Diet [DIET] Diets 06/07/17 Breakfast Active Renal Diet [DIET] Diets 06/06/17 Breakfast Active Attending/Attestation - Attestation I have personally seen and examined this patient.: Yes I have fully participated in the care of the patient.: Yes I have reviewed all pertinent clinical information: Yes Notes (Text): 06/06/17 17:41 Patient seen and examined in the intensive care unit. Case discussed with the staff in the morning. Status post-hemodialysis with significant improvement in the heart rate and patient condition Patient is alert oriented 3 Denies any complaints Stable for transfer to floor
--- NOTE | 2017-06-06 13:01 | CON ---
NEUROLOGY CONSULTATION DATE: 06/06/2017 CHIEF COMPLAINT: Altered mental status. HISTORY OF PRESENT ILLNESS: This is a 67-year-old obese Japanese man with past medical history of type 2 diabetes mellitus; hypertension for more than 25 years; coronary artery disease; hyperlipidemia; status post CABG with history of CVA with residual left-sided hemiparesis; history of end-stage renal disease, on hemodialysis. [facility], found to be altered as noticed by his cousin. Apparently, the patient had refused to eat that morning and lunch and poor p.o. intake and found to have bradycardia in the ER and was hypotensive and had severe hyperkalemia and was then immediately had emergent dialysis and became more alert. He had evidence of low systolic and diastolic blood pressures when he came in of 74/45, currently is much more stable, today is 130/38, it is also diastolically low. Has electrolyte derangement. CAT scan of the head showed no acute intracranial abnormality. PAST MEDICAL HISTORY: Significant for longstanding hypertension; type 2 diabetes mellitus; hyperlipidemia; CVA with residual left-sided weakness; coronary artery disease, status post CABG; end-stage renal disease, on hemodialysis 3 times a day on Tuesdays, and Saturdays. PAST SURGICAL HISTORY: Status post CABG 5 to 7 years ago, left upper extremity AV fistula. ALLERGIES: ALLERGIC TO ASPIRIN AND PLAVIX AND PENICILLIN IV DYE. SOCIAL HISTORY: Denies any illicit drug abuse, smoking or EtOH abuse. The patient lives at a jail in [facility]. MEDICATIONS: Reviewed by nurse per reconciliation sheet. REVIEW OF SYSTEMS: Fourteen-point review of systems is negative except in the HPI. PHYSICAL EXAMINATION: VITAL SIGNS: Temperature afebrile, pulse rate 60, blood pressure 130/38, respiratory rate 16, oxygen saturation 100% via room air. GENERAL: The patient is sitting up in bed, in no acute distress. HEENT: Head is atraumatic and normocephalic. PERRLA. Extraocular muscles intact. NECK: Supple. No JVD. No adenopathy noted. LUNGS: Clear to auscultation. No adventitious sounds. HEART: S1 and S2. Normal rate and rhythm. No murmur, rubs or gallops. ABDOMEN: Soft, nontender and nondistended. Bowel sounds are present. EXTREMITIES: No clubbing. No cyanosis. Peripheral pulses 2+ felt bilaterally. NEUROLOGIC: The patient is alert and oriented to person and place. Recall after 5 minutes is 0/3. Poor attention span. Poor thought process. Speech is fluent without any errors. Motor exam: Moves all extremities equally except for residual left-sided weakness from prior CVA. Sensory exam: Decreased light touch and pinprick up to the calves bilaterally. Decreased vibration of the toes. Proprioception is intact. DTRs are 1+ throughout and absent at the knees and ankles. Coordination: Wthmdm-aw-vmeo intact. Gait is deferred for now. LABORATORY DATA: Sodium is 135, potassium 5.1, chloride of 95, carbon dioxide of 28, BUN of 51, creatinine 4.6, random glucose is 59. ASSESSMENT AND PLAN: This is a 67-year-old man with past medical history of longstanding hypertension; type 2 diabetes; end-stage renal disease, on hemodialysis; cerebrovascular accident with residual left-sided weakness; coronary artery disease, status post coronary artery bypass graft; congestive heart failure, who was admitted for altered mental status, found to be bradycardic. Found to have a low systolic and diastolic blood pressures. Found to be hyperkalemic. Status post emergent dialysis. At this time, his altered mental status is secondary to transient cerebral hypoperfusion to the brain from low systolic and diastolic blood pressures along with electrolyte derangements given more of a metabolic encephalopathy picture. At this time, recommend, 1. Gentle hydration. 2. Correct electrolytes and monitor. 3. Keep blood sugars between 140 to 180 and avoid hypoglycemic events. 4. He does have evidence of diabetic peripheral neuropathy, recommended diabetic diet. 5. He is allergic to aspirin and Plavix, so could consider an antiplatelet like Pletal for stroke prevention in this case. 6. Physical Therapy/Occupational Therapy evaluation. 7. Encourage p.o. nutrition and get a Nutrition consult. 8. Continue current present medical management in terms of Nephrology followup and Cardiology followup for bradycardia. Thank you for this consult. Harry Machuca MD
[2017-06-06] MEDS: Albuterol-Ipratrop 3 mg / 0.5 (3 ml) UD INH PRN ×2 (17:06→20:05)
--- NOTE | 2017-06-06 18:56 | CP.PCM.PN ---
Subjective - Date & Time of Evaluation Date of Evaluation: 06/06/17 Time of Evaluation: 18:55 - Subjective Subjective: pt is seen and examined, follow up consult is dictated #[id number] Objective - Vital Signs/Intake and Output Vital Signs (last 24 hours): Temp Pulse Resp BP Pulse Ox 98.2 F 73 14 131/32 L 95 06/06/17 16:00 06/06/17 18:00 06/06/17 18:00 06/06/17 17:15 06/06/17 18:00 Intake and Output: 06/06/17 06/06/17 06:59 18:59 Intake Total 350 Output Total 0 0 Balance 0 350 - Medications Medications: Current Medications Albuterol/Ipratropium (Duoneb 3 Mg/0.5 Mg (3 Ml) Ud) 3 ml INH RQ6 PRN PRN Reason: Shortness of Breath Last Admin: 06/06/17 17:06 Dose: 3 ml Famotidine (Pepcid) 20 mg IVP DAILY [facility] Last Admin: 06/06/17 09:51 Dose: 20 mg Heparin Sodium (Porcine) (Heparin) 5,000 units SC Q8H BELL Last Admin: 06/06/17 16:39 Dose: 5,000 units Insulin Human Regular (Novolin R) 0 unit SC ACHS BELL PRN Reason: Protocol Last Admin: 06/06/17 16:33 Dose: Not Given - Labs Labs: 06/06/17 06:10 06/06/17 06:10 PT 12.6 SECONDS (9.7-12.2) H 06/05/17 14:28 INR 1.1 06/05/17 14:28 APTT 44 SECONDS (21-34) H 06/05/17 14:28
[2017-06-07 06:23] LABS: BASO % 0.4 % (0.0-2.0); EOS # 0.5 K/uL (0.0-0.7); EOS % 8.5 % (0.0-4.0); HEMATOCRIT 32.4 % (35.0-51.0); LYMPH # 0.8 K/uL (1.0-4.3); MEAN CELL VOLUME 100.7 fL (80.0-94.0); MEAN CORPUSCULAR HEMOGLOBIN 31.5 pg (27.0-31.0); MEAN CORPUSCULAR HGB CONC 31.3 g/dL (33.0-37.0); MEAN PLATELET VOLUME 8.6 fL (7.2-11.7); MONO # 0.6 K/uL (0.0-0.8); MONO % 10.6 % (0.0-10.0); NRBC % 0.3 % (0.0-2.0); RED CELL DISTRIBUTION WIDTH 17.7 % (11.5-14.5); WHITE BLOOD COUNT 5.6 K/uL (4.8-10.8)
[2017-06-07 06:36] LABS: ALB/GLOB RATIO 0.8 (1.0-2.1); BILIRUBIN,TOTAL 0.6 mg/dL (0.2-1.3); CALCIUM 8.3 mg/dl (8.6-10.4); MAGNESIUM 2.3 mg/dL (1.6-2.3); PHOSPHOROUS 6.9 mg/dL (2.5-4.5); POTASSIUM 5.3 mmol/L (3.6-5.2); TOTAL PROTEIN 7.5 g/dL (6.3-8.3)
[2017-06-07] MEDS: Albuterol-Ipratrop 3 mg / 0.5 (3 ml) UD INH PRN ×3 (07:36→17:29)
[2017-06-07] MEDS: (Novolin R) Insulin Human Regular 100 units/ml vial SC SCH ×4 (07:52→21:45)
[2017-06-07] MEDS ORDERED: Lidocaine 2% Jelly (Uro-Jet) TOP ONE (08:26)
[2017-06-07] MEDS ORDERED: Epoetin Alfa 10,000 unit/ml Dialysis SC ONE ×2 (08:26→11:45)
[2017-06-07] MEDS ORDERED: Paricalcitol 2 mcg/ml Inj IV ONE ×2 (08:29→11:45)
--- NOTE | 2017-06-07 08:35 | CARD ---
APPROVED REPORT EKG Measurement Heart [id number] <Conclusion> Junctional rhythm Right bundle branch block Abnormal ECG
--- NOTE | 2017-06-07 08:39 | CARD ---
APPROVED REPORT EKG Measurement Heart [id number] <Conclusion> Junctional Wide QRS rhythm with occasional premature ventricular complexes Right bundle branch block Left anterior hemiblock Abnormal ECG
[2017-06-07] MEDS ORDERED: Lidocaine 2% Jelly (30 ml) TOP ONE (08:45)
[2017-06-07] MEDS ORDERED: Albumin Human 25% (12.5 gm/50 ml) IV ONE ×2 (08:51→11:48)
--- NOTE | 2017-06-07 08:52 | RAD ---
Chest x-ray single frontal view History: Fluid overload. Comparison: 06/05/2017 Findings: Prominent diffuse confluent bilateral airspace opacifications suggestive for severe edema and or scattered infiltrates. More prominent superimposed consolidative changes projecting over the right mid to lower lung zone as well as at the left lung base. Left axillary stent in place. Moderate right and small left pleural effusion. Status post median sternotomy. Calcification at the aortic knob. Cardiomegaly. Degenerative changes in the spine and shoulders. Impression: Prominent diffuse confluent bilateral airspace opacifications suggestive for severe edema and or scattered infiltrates. More prominent superimposed consolidative changes projecting over the right mid to lower lung zone as well as at the left lung base. Left axillary stent in place. Moderate right and small left pleural effusion. Status post median sternotomy. Calcification at the aortic knob. Cardiomegaly.
--- NOTE | 2017-06-07 09:12 | CP.PCM.PN ---
Subjective - Date & Time of Evaluation Date of Evaluation: 06/07/17 Time of Evaluation: 09:11 - Subjective Subjective: pt is seen and examined, follow up consult is dictated #[id number] for hd this am, uf goal is 3- 3.5 lit as tolertaed Objective - Vital Signs/Intake and Output Vital Signs (last 24 hours): Temp Pulse Resp BP Pulse Ox 98.2 F 69 13 148/50 L 100 06/07/17 08:00 06/07/17 08:02 06/07/17 08:02 06/07/17 08:02 06/07/17 08:02 Intake and Output: 06/07/17 06/07/17 06:59 18:59 Intake Total 200 120 Output Total 0 Balance 200 120 - Medications Medications: Current Medications Albuterol/Ipratropium (Duoneb 3 Mg/0.5 Mg (3 Ml) Ud) 3 ml INH RQ6 PRN PRN Reason: Shortness of Breath Last Admin: 06/07/17 07:36 Dose: 3 ml Famotidine (Pepcid) 20 mg IVP DAILY [facility] Last Admin: 06/06/17 09:51 Dose: 20 mg Heparin Sodium (Porcine) (Heparin) 5,000 units SC Q8H [facility] Last Admin: 06/07/17 07:53 Dose: 5,000 units Insulin Human Regular (Novolin R) 0 unit SC ACHS BELL PRN Reason: Protocol Last Admin: 06/07/17 07:52 Dose: Not Given Pregabalin (Lyrica) 75 mg PO DAILY [facility] Last Admin: 06/06/17 19:50 Dose: 75 mg - Labs Labs: 06/07/17 06:15 06/07/17 06:15 PT 12.6 SECONDS (9.7-12.2) H 06/05/17 14:28 INR 1.1 06/05/17 14:28 APTT 44 SECONDS (21-34) H 06/05/17 14:28
--- NOTE | 2017-06-07 14:33 | CP.PCM.CON ---
History of Present Illness - History of Present Illness History of Present Illness: reason for consultation: shortness of breath 67 year old male Well known to me from previous admissions and office visit, with PMHx of quadruple bypass in 2007, DM, HTN, ESRD, and CVA in 2016 who presents today with AMS. Patient went for dialysis, but he was confused and dialysis center sent him to the ED without being dialyzed to be evaluated. In ED patient's heart rate in the 30s and blood pressure in 70s over 30s. Patient was also found to be hyperkalemic at 7.6. Patient was given Calcium Gluconate, 1amp of D50, 10 units Insulin, Sodium Bicarb, Paricalcitol. Patient also given 1mg Atropine and started on Dobutamine drip. Patient seen in ED and slightly responsive. Patient complaining of pain from his buttocks. Patient denies chest pain. Full ROS unobtainable from patient at this time. Past Patient History - Infectious Disease Hx of Infectious Diseases: None - Past Medical History & Family History Past Medical History?: Yes - Past Social History Smoking Status: Former Smoker - CARDIAC Hx Hypertension: Yes - PULMONARY Hx Asthma: Yes Hx Sleep Apnea: Yes - NEUROLOGICAL HX Cerebrovascular Accident: Yes (non ambulatory) - HEENT Hx HEENT Problems: Yes Hx Cataracts: Yes - RENAL Hx Chronic Kidney Disease: Yes - ENDOCRINE/METABOLIC Hx Diabetes Mellitus Type 2: Yes - HEMATOLOGICAL/ONCOLOGICAL Hx Anemia: Yes - INTEGUMENTARY Hx Dermatological Problems: Yes Other/Comment: healed sacral ulcer - MUSCULOSKELETAL/RHEUMATOLOGICAL Hx Musculoskeletal Disorders: Yes Hx Falls: Yes Hx Unsteady Gait: Yes Other/Comment: HX: MUSCLE WEAKNESS(GENERALIZED), Left sided body weakness due to CVA - GASTROINTESTINAL Hx Gastrointestinal Disorders: Yes Other/Comment: HX: DYSPHAGIA,UNSPECIFIED - GENITOURINARY/GYNECOLOGICAL Hx Genitourinary Disorders: No - PSYCHIATRIC Hx Depression: Yes ('MAJOR DEPRESSIVE DISORDER,SINGLE EPISODE,UNSPECIFIED") Hx Substance Use: No - SURGICAL HISTORY Hx Coronary Artery Bypass Graft: Yes - ANESTHESIA Hx Anesthesia: Yes Hx Anesthesia Reactions: No Hx Malignant Hyperthermia: No Meds Allergies/Adverse Reactions: Allergies Allergy/AdvReac Type Severity Reaction Status Date / Time iodine Allergy Intermediate RASH Verified 04/11/17 09:37 aspirin Allergy Verified 04/11/17 09:37 clopidogrel bisulfate Allergy UNKNOWN Verified 04/11/17 09:37 [From Plavix] Penicillins Allergy UNKNOWN Verified 04/11/17 09:37 IV DYE Allergy Uncoded 04/11/17 09:38 - Medications Medications: Current Medications Albuterol/Ipratropium (Duoneb 3 Mg/0.5 Mg (3 Ml) Ud) 3 ml INH RQ6 PRN PRN Reason: Shortness of Breath Last Admin: 06/07/17 13:46 Dose: 3 ml Famotidine (Pepcid) 20 mg IVP DAILY [facility] Last Admin: 06/07/17 09:37 Dose: 20 mg Heparin Sodium (Porcine) (Heparin) 5,000 units SC Q8H [facility] Last Admin: 06/07/17 07:53 Dose: 5,000 units Insulin Human Regular (Novolin R) 0 unit SC ACHS BELL PRN Reason: Protocol Last Admin: 06/07/17 11:22 Dose: Not Given Pregabalin (Lyrica) 75 mg PO DAILY [facility] Last Admin: 06/07/17 09:37 Dose: 75 mg Results - Vital Signs Recent Vital Signs: Last Vital Signs Temp 97.4 F L 06/07/17 12:00 Pulse 77 06/07/17 14:19 Resp 13 06/07/17 14:19 BP 124/36 L 06/07/17 14:19 Pulse Ox 99 06/07/17 14:19 - Labs Result Diagrams: 06/07/17 06:15 06/07/17 06:15 Labs: Laboratory Results - last 24 hr 06/06/17 06/06/17 06/06/17 11:34 16:25 21:25 WBC RBC Hgb Hct MCV MCH MCHC RDW Plt Count MPV Neut % (Auto) Lymph % (Auto) [place] % (Auto) Eos % (Auto) Baso % (Auto) Neut # Lymph # [place] # Eos # Baso # Sodium Potassium Chloride Carbon Dioxide Anion Gap BUN Creatinine Est GFR ( Amer) Est GFR (Non-Af Amer) POC Glucose (mg/dL) 96 82 106 Random Glucose Calcium Phosphorus Magnesium Total Bilirubin AST ALT Alkaline Phosphatase Total Protein Albumin Globulin Albumin/Globulin Ratio Hep Bs Antigen 06/07/17 06/07/17 06/07/17 06:15 06:15 07:34 WBC 5.6 RBC 3.21 L Hgb 10.1 L Hct 32.4 L MCV 100.7 H MCH 31.5 H MCHC 31.3 L RDW 17.7 H Plt Count 145 MPV 8.6 Neut % (Auto) 65.5 Lymph % (Auto) 15.0 L [place] % (Auto) 10.6 H Eos % (Auto) 8.5 H Baso % (Auto) 0.4 Neut # 3.7 Lymph # 0.8 L [place] # 0.6 Eos # 0.5 Baso # 0.0 Sodium 134 Potassium 5.3 H Chloride 94 L Carbon Dioxide 26 Anion Gap 19 BUN 62 H Creatinine 5.5 H Est GFR ( Amer) 13 Est GFR (Non-Af Amer) 10 POC Glucose (mg/dL) 87 Random Glucose 79 Calcium 8.3 L Phosphorus 6.9 H Magnesium 2.3 Total Bilirubin 0.6 AST 40 ALT 60 Alkaline Phosphatase 200 H Total Protein 7.5 Albumin 3.3 L Globulin 4.2 H Albumin/Globulin Ratio 0.8 L Hep Bs Antigen 06/07/17 06/07/17 11:12 12:18 WBC RBC Hgb Hct MCV MCH MCHC RDW Plt Count MPV Neut % (Auto) Lymph % (Auto) [place] % (Auto) Eos % (Auto) Baso % (Auto) Neut # Lymph # [place] # Eos # Baso # Sodium Potassium Chloride Carbon Dioxide Anion Gap BUN Creatinine Est GFR ( Amer) Est GFR (Non-Af Amer) POC Glucose (mg/dL) 131 H Random Glucose Calcium Phosphorus Magnesium Total Bilirubin AST ALT Alkaline Phosphatase Total Protein Albumin Globulin Albumin/Globulin Ratio Hep Bs Antigen Negative
--- NOTE | 2017-06-07 16:22 | PN ---
FOLLOWUP RENAL CONSULTATION LOCATION: The patient is located in ICU, bed 8. REQUESTED BY: Theodore Lucas MD REASON FOR FOLLOWUP: End-stage renal disease and hyperkalemia for continuation of hemodialysis. SUBJECTIVE: The patient is a 29-[id number] obese [place] male with a past medical history significant for longstanding hypertension, diabetes, diabetic retinopathy, end-stage renal disease, CVA with left-sided weakness, coronary artery disease, status post CABG; was admitted from the [facility] yesterday with altered mental status and hypotension, bradycardia with a idioventricular rhythm. The patient was found to have severe hyperkalemia with a potassium of 7.7. The patient underwent an emergency hemodialysis yesterday with 1K bath. The patient is feeling much better, not in acute distress. Denies any shortness of breath. Denies any chest pain or palpitation. Denies any fever or cough. No abdominal pain. PHYSICAL EXAMINATION: VITAL SIGNS: Blood pressure 130/36, pulse 71, respirations 15, temperature 98.6, saturation 95%. Height 5 feet 9 inches, weight is 209 pounds. GENERAL: The patient is a 67-year-old obese [place] male, moderately built, moderately nourished, not in distress. HEENT: Pupils normal and reactive to light and accommodation. Conjunctivae pink. Sclerae anicteric. Tongue is moist and trachea is midline. LUNGS: Symmetric on both sides. Bilateral breath sounds present. Occasional basal crackles present. CVS: [place] at the fifth intercostal space, midclavicular line. S1, S2 audible. No murmur or gallop. The patient has a midsternal scar present from the previous CABG. ABDOMEN: Protuberant, soft, tympanic. No guarding. No rigidity. No hepatosplenomegaly. 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 Sensory and motor system is normal on the right side. The patient has a left hemiparesis. EXTREMITIES: No cyanosis. No clubbing. The patient has 2+ edema in both lower extremities. CURRENT MEDICATIONS: Include as follows; albuterol inhaler 3 mL q.6 hours, subcu heparin 5000 q.8 hours, Lyrica 75 mg p.o. daily, Novolin R for sliding scale, and Pepcid 20 mg IV daily. CURRENT LABORATORY DATA: Include as follows; as of 06/06/2017, WBC 5.1, hemoglobin 10.1, hematocrit is 31.7, platelets 125. Sodium 135, potassium 5.1, chloride 95, CO2 of 28, BUN 51, creatinine 4.6, glucose 81, calcium 8.2, phosphorus is 6, magnesium 2.3. Total bili 0.6, AST 34, and ALT 59, alkaline phosphatase is 199, total protein is 7.3, albumin is 3.2. MRSA screening was not detected and wound culture is pending. ASSESSMENT: In summary, the patient is a 67-year-old obese elderly [place] male with a history of hypertension, diabetes, coronary artery disease, status post coronary artery bypass graft; cerebrovascular accident with left hemiparesis, end-stage renal disease, was admitted with severe hyperkalemia and bradycardia with idioventricular rhythm. The patient underwent emergency dialysis yesterday; 1. End-stage renal disease. Continue hemodialysis three times a week. 2. Status post hyperkalemia. Etiology is not clear, most likely secondary to renal failure and noncompliance with diet, cannot rule out secondary to beta blockers. 3. Hypertension. Blood pressure is stable. 4. Diabetes. 5. Cerebrovascular accident with left hemiparesis. Continue his hemodialysis three times a week and restrict fluids to 1 L. Continue low sodium, low potassium diet. Repeat EKG in a.m. We will follow up with you. Thank you for allowing me to participate in your patient's care. Martin Ortiz MD
[2017-06-07] MEDS: Oxycodone/Acetaminophen 5/325 mg Tab PO PRN (20:44)
--- NOTE | 2017-06-07 22:29 | CP.PCM.PN ---
Subjective - Date & Time of Evaluation Date of Evaluation: 06/07/17 Time of Evaluation: 08:10 - Subjective Subjective: more alert able to communicate somewhat intelligently Objective - Vital Signs/Intake and Output Vital Signs (last 24 hours): Temp Pulse Resp BP Pulse Ox 98.5 F 131 H 14 139/18 L 90 L 06/07/17 16:00 06/07/17 18:00 06/07/17 18:00 06/07/17 20:29 06/07/17 18:00 Intake and Output: 06/07/17 06/08/17 18:59 06:59 Intake Total 560 Output Total 2500 Balance -1940 - Medications Medications: Current Medications Albuterol/Ipratropium (Duoneb 3 Mg/0.5 Mg (3 Ml) Ud) 3 ml INH RQ6 PRN PRN Reason: Shortness of Breath Last Admin: 06/07/17 17:29 Dose: 3 ml Apixaban (Eliquis) 2.5 mg PO BID [facility] Last Admin: 06/07/17 20:29 Dose: 2.5 mg Famotidine (Pepcid) 20 mg IVP DAILY [facility] Last Admin: 06/07/17 09:37 Dose: 20 mg Heparin Sodium (Porcine) (Heparin) 5,000 units SC Q8H [facility] Last Admin: 06/07/17 16:27 Dose: 5,000 units Insulin Human Regular (Novolin R) 0 unit SC ACHS [facility] PRN Reason: Protocol Last Admin: 06/07/17 16:28 Dose: Not Given Metoprolol Tartrate (Lopressor) 25 mg PO BID [facility] Last Admin: 06/07/17 20:29 Dose: 25 mg Oxycodone/Acetaminophen (Percocet 5/325 Mg Tab) 1 tab PO Q6H PRN PRN Reason: Pain, moderate (4-7) Stop: 06/10/17 19:07 Last Admin: 06/07/17 20:44 Dose: 1 tab Pregabalin (Lyrica) 75 mg PO DAILY [facility] Last Admin: 06/07/17 09:37 Dose: 75 mg - Labs Labs: 06/07/17 06:15 06/07/17 06:15 PT 12.6 SECONDS (9.7-12.2) H 06/05/17 14:28 INR 1.1 06/05/17 14:28 APTT 44 SECONDS (21-34) H 06/05/17 14:28 - Constitutional Appears: Chronically Ill - Head Exam Head Exam: NORMAL INSPECTION - Eye Exam Eye Exam: absent: Scleral icterus - ENT Exam ENT Exam: Mucous Membranes Moist - Neck Exam Neck Exam: Full ROM - Respiratory Exam Respiratory Exam: Decreased Breath Sounds - Cardiovascular Exam Cardiovascular Exam: REGULAR RHYTHM - GI/Abdominal Exam GI & Abdominal Exam: Soft - Extremities Exam Extremities Exam: absent: Pedal Edema - Neurological Exam Neurological Exam: Alert Neuro motor strength exam: Left Upper Extremity: 2/1 (contracted LUE), Right Upper Extremity: 4 Assessment and Plan - Assessment and Plan (Free Text) Assessment: Altered mental status Metabolic encephalopathy ESRD T2dm Anemia Plan: Neuro consult Cont dialysis
--- NOTE | 2017-06-08 02:48 | PN ---
DATE: FOLLOWUP RENAL CONSULTATION LOCATION: The patient is located in ICU, bed 8. REQUESTED BY: Theodore Lucas MD REASON FOR FOLLOWUP: End-stage renal disease, continuation of hemodialysis. HISTORY OF PRESENT ILLNESS: Mr. Gonzales is a 67 years elderly [place] male with a history of longstanding hypertension, diabetes, CVA with left-sided weakness, end-stage renal disease, coronary artery disease status post CABG, who was admitted with altered mental status, hypotension and bradycardia, and the patient was found to have severe hyperkalemia, potassium 7.7. The patient was dialyzed immediately on 06/05/2017. The patient is feeling much better, not in acute distress. Denies any headache, dizziness. Denies any chest pain, palpitation. Denies any fever or cough. No abdominal pain. No nausea, vomiting, diarrhea. The patient is being dialyzed this morning during my examination. UF goal is 3 to 3.5 liters. PHYSICAL EXAMINATION: VITAL SIGNS: As follows. His blood pressure this morning is 139/44, pulse 72, respirations 13, and saturation 100%, and temperature is 98.2. GENERAL: Mr. Gonzales is a 67 years old elderly [place] male, well built, well nourished, not in distress. HEENT: Pupils normal and reactive to light and accommodation. Conjunctivae pink. Sclerae are anicteric. Tongue is moist. Trachea is midline. LUNGS: Symmetric on both sides. Bilateral breath sounds present. Clear on auscultation. CARDIOVASCULAR: [place] at the fifth intercostal space, midclavicular line. S1 and S2 audible. No murmur or gallop. ABDOMEN: Normal in appearance, soft, tympanic. No guarding. No rigidity. No hepatosplenomegaly. CENTRAL NERVOUS SYSTEMS: The patient is alert, awake and oriented x3. Sensory and motor system, sensory is within normal limits; motor system, patient has left-sided weakness. EXTREMITIES: No cyanosis, no clubbing. The patient has 1 to 2+ edema in both lower extremities. CURRENT MEDICATIONS: Include as follows, DuoNeb inhaler, Eliquis 2.5 mg p.o. b.i.d., subcu heparin 5000 q. 8 hours. metoprolol 25 mg p.o. b.i.d., Lyrica 75 mg p.o. daily, Novolin R per sliding scale, Pepcid 20 mg IV daily and Percocet 1 tablet p.o. q. 6 hours. LABORATORY DATA: Include as follows; as of 06/07/2017, WBC 5.6, hemoglobin 10.1, hematocrit is 32.4, platelets 145. Sodium 134, potassium 5.3, chloride 94, CO2 of 26, BUN 62, creatinine 5.5, glucose 87, calcium 8.3, phosphorus is 6.9 and magnesium 2.3, total bili 0.6, AST 40, ALT 60, alkaline phosphatase 200, total protein 7.5, albumin is 3.3. Hepatitis B surface antigen negative. ASSESSMENT: In summary, Mr. Gonzales is a 67 years old elderly obese [place] male with a history of hypertension, diabetes, coronary artery disease status post coronary artery bypass grafting, cerebrovascular accident with left-sided weakness, was admitted with altered mental status, bradycardia, idioventricular rhythm and severe hyperkalemia. 1. End-stage renal disease. Continue hemodialysis 3 times a week. 2. Status post hyperkalemia secondary to renal failure and noncompliance with diet and also medications. 3. Hypertension. Blood pressure is stable. 4. Diabetes. 5. Coronary artery disease. 6. Cerebrovascular accident with left-sided weakness. PLAN: Continue hemodialysis 3 times a week, Sunday, and Sunday, and repeat EKG in the a.m. and we will follow up with you. Continue current medication as per Dr. Lucas. The patient was seen and examined during hemodialysis this morning and UF goal is about 3 L. Thank you for allowing me to participate in your patient's care. aMrtin Ortiz MD
[2017-06-08] MEDS: Albuterol-Ipratrop 3 mg / 0.5 (3 ml) UD INH PRN (07:36)
[2017-06-08] MEDS: Oxycodone/Acetaminophen 5/325 mg Tab PO PRN ×2 (08:23→23:20)
[2017-06-08] MEDS: (Novolin R) Insulin Human Regular 100 units/ml vial SC SCH ×4 (08:25→21:50)
--- NOTE | 2017-06-08 11:15 | CP.PCM.PN ---
Subjective - Date & Time of Evaluation Date of Evaluation: 06/08/17 Time of Evaluation: 11:15 - Subjective Subjective: pt is seen and examined, follow up consult is dictated #[id number] for hd in am, sunday Objective - Vital Signs/Intake and Output Vital Signs (last 24 hours): Temp Pulse Resp BP Pulse Ox 98.7 F 72 16 121/35 L 100 06/08/17 04:00 06/08/17 07:19 06/08/17 07:19 06/08/17 10:12 06/08/17 07:19 Intake and Output: 06/08/17 06/08/17 06:59 18:59 Intake Total 150 Balance 150 - Medications Medications: Current Medications Albuterol/Ipratropium (Duoneb 3 Mg/0.5 Mg (3 Ml) Ud) 3 ml INH RQ6 PRN PRN Reason: Shortness of Breath Last Admin: 06/08/17 07:36 Dose: 3 ml Apixaban (Eliquis) 2.5 mg PO BID [facility] Last Admin: 06/08/17 10:13 Dose: 2.5 mg Famotidine (Pepcid) 20 mg IVP DAILY [facility] Last Admin: 06/08/17 10:13 Dose: 20 mg Heparin Sodium (Porcine) (Heparin) 5,000 units SC Q8H [facility] Last Admin: 06/08/17 08:23 Dose: 5,000 units Insulin Human Regular (Novolin R) 0 unit SC ACHS [facility] PRN Reason: Protocol Last Admin: 06/08/17 08:25 Dose: Not Given Metoprolol Tartrate (Lopressor) 25 mg PO BID [facility] Last Admin: 06/08/17 10:12 Dose: 25 mg Oxycodone/Acetaminophen (Percocet 5/325 Mg Tab) 1 tab PO Q6H PRN PRN Reason: Pain, moderate (4-7) Stop: 06/10/17 19:07 Last Admin: 06/08/17 08:23 Dose: 1 tab Pregabalin (Lyrica) 75 mg PO DAILY [facility] Last Admin: 06/08/17 10:12 Dose: 75 mg - Labs Labs: 06/07/17 06:15 06/07/17 06:15 PT 12.6 SECONDS (9.7-12.2) H 06/05/17 14:28 INR 1.1 06/05/17 14:28 APTT 44 SECONDS (21-34) H 06/05/17 14:28
--- NOTE | 2017-06-08 23:11 | PN ---
FOLLOWUP RENAL CONSULTATION LOCATION: The patient is located in ICU, bed #8. REQUESTED BY: Theodore Lucas MD REASON OF FOLLOWUP. End-stage renal disease for continuation of the hemodialysis. HISTORY OF PRESENT ILLNESS: Mr. Gonzales is a 67 years old obese elderly Swazi male with past medical history significant for longstanding hypertension; diabetes; coronary artery disease; status post CABG; hyperlipidemia; end-stage renal disease on hemodialysis 3 times a week Sunday, , Sunday; CVA with left hemiparesis, [facility] with altered [facility] status, hypotension, bradycardia with idioventricular rhythm and severe hyperkalemia requiring emergency hemodialysis. The patient is feeling much better now. The patient is out of bed to chair. No chest pain. No palpitation. No fever. No cough. No abdominal pain. No nausea, vomiting, diarrhea. PHYSICAL EXAMINATION VITAL SIGNS: As follows; blood pressure 139/32, pulse 63, respirations 13, saturation 96%-99% and temperature 98.6. Height 5 feet 9 inches and weight is 220 pounds. GENERAL: Mr. Gonzales is a 67-year-old elderly obese male, moderately-built, moderately-nourished, not in distress. HEENT: Pupils normal reactive to light and accommodation. Conjunctivae pink. Sclerae are anicteric. Tongue is moist. Trachea is midline. LUNGS: Symmetric on both sides. Bilateral breath sounds present. Clear on auscultation. CARDIOVASCULAR SYSTEM: [place] at the fifth intercostal space, midclavicular line. S1 and S2 audible. No murmur or gallop. ABDOMEN: Normal in appearance, soft, tympanic. No guarding. No rigidity. No hepatosplenomegaly. CENTRAL NERVOUS SYSTEM: The patient is alert, awake, oriented x3. Sensory system is grossly within normal limits. Motor system, left-sided weakness present. EXTREMITIES: No cyanosis, no clubbing. The patient has 2+ edema in both lower extremities. OTHER LABORATORY DATA: As of 06/05/2017; MRSA screening was negative and wound culture, bacteria is positive for Cronobacter species and staph coagulase negative. No other labs are available today. Accu-Chek this morning 97 and 82. ASSESSMENT: In summary; Mr. Gonzales is a 67 years elderly male with hypertension, diabetes, end-stage renal disease, coronary artery disease status post coronary artery bypass graft, cerebrovascular accident with left hemiparesis with altered mental status, bradycardia, hypotension and severe hyperkalemia. 1. End-stage renal disease. Continue hemodialysis 3 times a week Sunday, , Sunday. 2. Status post hypertension secondary to bradycardia and idioventricular rhythm. 3. Status post hyperkalemia most likely secondary to noncompliance with the diet, medications and end-stage renal disease. 4. Fluid overload. PLAN: Continue hemodialysis 3 times a week Sunday, , Sunday. Restrict fluids to 1 liter per day and we will schedule for hemodialysis in a.m. and continue his antihypertensive medications and also 2 g sodium, 2 g potassium diet. Repeat EKG in a.m. We will follow with you. Thank you for allowing me to participate in your patient's care. Martin Ortiz MD
--- NOTE | 2017-06-08 23:36 | CP.PCM.PN ---
Subjective - Date & Time of Evaluation Date of Evaluation: 06/08/17 Time of Evaluation: 07:35 - Subjective Subjective: improving c/o leg pain - no cord Objective - Vital Signs/Intake and Output Vital Signs (last 24 hours): Temp Pulse Resp BP Pulse Ox 98.0 F 63 13 139/32 L 96 06/08/17 16:00 06/08/17 18:48 06/08/17 18:48 06/08/17 18:48 06/08/17 18:48 Intake and Output: 06/08/17 06/09/17 18:59 06:59 Intake Total 700 Balance 700 - Medications Medications: Current Medications Albuterol/Ipratropium (Duoneb 3 Mg/0.5 Mg (3 Ml) Ud) 3 ml INH RQ6 PRN PRN Reason: Shortness of Breath Last Admin: 06/08/17 07:36 Dose: 3 ml Apixaban (Eliquis) 2.5 mg PO BID [facility] Last Admin: 06/08/17 17:35 Dose: 2.5 mg Famotidine (Pepcid) 20 mg IVP DAILY [facility] Last Admin: 06/08/17 10:13 Dose: 20 mg Insulin Human Regular (Novolin R) 0 unit SC ACHS [facility] PRN Reason: Protocol Last Admin: 06/08/17 21:50 Dose: Not Given Metoprolol Tartrate (Lopressor) 25 mg PO BID [facility] Last Admin: 06/08/17 17:36 Dose: 25 mg Oxycodone/Acetaminophen (Percocet 5/325 Mg Tab) 1 tab PO Q6H PRN PRN Reason: Pain, moderate (4-7) Stop: 06/10/17 19:07 Last Admin: 06/08/17 23:20 Dose: 1 tab Pregabalin (Lyrica) 75 mg PO DAILY [facility] Last Admin: 06/08/17 10:12 Dose: 75 mg - Labs Labs: 06/07/17 06:15 06/07/17 06:15 PT 12.6 SECONDS (9.7-12.2) H 06/05/17 14:28 INR 1.1 06/05/17 14:28 APTT 44 SECONDS (21-34) H 06/05/17 14:28 Assessment and Plan - Assessment and Plan (Free Text) Assessment: Mental status much improved ESRD CAD HTN Electrolyte imbalance Plan: Cont meds Cont dialysis
[2017-06-09] MEDS: (Novolin R) Insulin Human Regular 100 units/ml vial SC SCH ×2 (08:06→18:03)
[2017-06-09] MEDS ORDERED: Albumin Human 25% (12.5 gm/50 ml) IV ONE ×3 (11:15→12:00)
[2017-06-09 13:58] VITALS: RESP 20
--- NOTE | 2017-06-09 14:46 | CP.PCM.PN ---
Subjective - Date & Time of Evaluation Date of Evaluation: 06/09/17 Time of Evaluation: 14:45 - Subjective Subjective: pt is seen and examined, follow up consult is dictated #[id number] Objective - Vital Signs/Intake and Output Vital Signs (last 24 hours): Temp Pulse Resp BP Pulse Ox 97.5 F L 74 20 105/39 L 98 06/09/17 12:07 06/09/17 13:45 06/09/17 10:10 06/09/17 13:45 06/09/17 10:10 Intake and Output: 06/09/17 06/09/17 06:59 18:59 Intake Total 120 Output Total 0 Balance 120 - Medications Medications: Current Medications Albuterol/Ipratropium (Duoneb 3 Mg/0.5 Mg (3 Ml) Ud) 3 ml INH RQ6 PRN PRN Reason: Shortness of Breath Last Admin: 06/08/17 07:36 Dose: 3 ml Apixaban (Eliquis) 2.5 mg PO BID [facility] Last Admin: 06/09/17 12:18 Dose: Not Given Famotidine (Pepcid) 20 mg IVP DAILY [facility] Last Admin: 06/09/17 12:18 Dose: Not Given Heparin Sodium (Porcine) (Heparin) 5,000 units SC Q8 [facility] Last Admin: 06/09/17 10:39 Dose: Not Given Insulin Human Regular (Novolin R) 0 unit SC ACHS [facility] PRN Reason: Protocol Last Admin: 06/09/17 08:06 Dose: Not Given Metoprolol Tartrate (Lopressor) 25 mg PO BID [facility] Last Admin: 06/09/17 12:18 Dose: Not Given Oxycodone/Acetaminophen (Percocet 5/325 Mg Tab) 1 tab PO Q6H PRN PRN Reason: Pain, moderate (4-7) Stop: 06/10/17 19:07 Last Admin: 06/08/17 23:20 Dose: 1 tab Pregabalin (Lyrica) 75 mg PO DAILY [facility] Last Admin: 06/09/17 12:18 Dose: Not Given - Labs Labs: 06/07/17 06:15 06/07/17 06:15 PT 12.6 SECONDS (9.7-12.2) H 06/05/17 14:28 INR 1.1 06/05/17 14:28 APTT 44 SECONDS (21-34) H 06/05/17 14:28
[2017-06-09 14:52] LABS: CALCIUM 7.7 mg/dl (8.6-10.4); POTASSIUM 3.5 mmol/L (3.6-5.2)
[2017-06-09] MEDS: Albuterol-Ipratrop 3 mg / 0.5 (3 ml) UD INH PRN ×2 (19:12→23:42)
[2017-06-09] MEDS: Oxycodone/Acetaminophen 5/325 mg Tab PO PRN (20:55)
--- NOTE | 2017-06-09 21:26 | PN ---
FOLLOWUP RENAL CONSULTATION LOCATION: The patient is located in room 664, bed B. REQUESTING PHYSICIAN: Theodore Lucas MD REASON FOR FOLLOWUP: End-stage renal disease, for continuation of the hemodialysis. HISTORY OF PRESENT ILLNESS: Mr. Gonzales is a 67 years old middle-aged obese [place] male with past medical history significant for longstanding hypertension; diabetes; coronary artery disease, status post CABG; CVA with left-sided weakness and end-stage renal disease, on hemodialysis three times a week, resident of [facility], was admitted with chief complaints of altered mental status, hypotension and bradycardia and idioventricular rhythm with severe hyperkalemia requiring immediate and emergency hemodialysis on Sunday. The patient is feeling much better today, not in acute distress. The patient underwent hemodialysis this morning and ultrafiltration about 1.4 liters today. The patient is feeling much better, not in acute distress. Denies any headache, dizziness. Denies any chest pain or palpitation. Denies any fever or cough. No abdominal pain. No nausea, vomiting or diarrhea. PHYSICAL EXAMINATION: GENERAL: Mr. Gonzales is a 67 years old elderly [place] male, well-built, well-nourished, not in distress. VITAL SIGNS: His vital signs as follows; blood pressure 113/70, pulse 60, respirations about 20, temperature 98.2. HEENT: Pupils normal, reactive to light and accommodation. Conjunctivae pink. Sclerae anicteric. Tongue is moist. Trachea is midline. LUNGS: Symmetric on both sides. Bilateral breath sounds present. Clear on auscultation. CARDIOVASCULAR SYSTEM: [place] at the fifth intercostal space, midclavicular line. S1 and S2 audible. No murmur or gallop. ABDOMEN: Normal in appearance, soft, tympanic. No guarding, no rigidity. No hepatosplenomegaly. CENTRAL NERVOUS SYSTEM: The patient is alert, awake and oriented X3. Sensory system is grossly within normal limits. Motor system, the patient has left-sided weakness from the previous CVA. EXTREMITIES: No cyanosis, no clubbing. The patient has 1+ edema in both lower extremities, left more than the right. CURRENT MEDICATIONS: Include as follows; DuoNeb inhaler 3 mL q.6 hours, Eliquis 2.5 mg p.o. b.i.d., subcu heparin 5000 q.8 hours, metoprolol 25 mg p.o. b.i.d., Lyrica 75 mg p.o. daily, Novolin R for sliding scale, Pepcid 20 mg IV daily and Percocet 1 tablet p.o. q.6 hours. LABORATORY DATA: Include as follows as of 06/09/2017; sodium 135, potassium 3.5, chloride 95, CO2 of 31, BUN 20, creatinine 2.4, glucose 72, calcium 7.7. This is post dialysis BMP. ASSESSMENT: In summary, Mr. Gonzales is a 67 years old elderly Cuban male with history of hypertension; diabetes; coronary artery disease, status post coronary artery bypass graft; cerebrovascular accident with left-sided weakness; end-stage renal disease, on hemodialysis three times a week, was admitted with altered mental status, hypotension, bradycardia, idioventricular rhythm, severe hyperkalemia, potassium more than 7.7 requiring immediate hemodialysis on admission. 1. End-stage renal disease. Continue hemodialysis three times a week Sunday, , Sunday. 2. Status post hypotension, try to hold metoprolol on the day of dialysis. 3. Coronary artery disease, asymptomatic. 4. Secondary hyperparathyroidism, continue Renvela three times a week 800 mg 2 tablets, powder instead of capsules, we will use powder 1600 mg p.o. t.i.d. with food and also we will add Nephrocaps 1 tablet daily and also we will add ProSource 30 mL p.o. b.i.d. We will follow with you. Thank you for allowing me to participate in your patient's care. Martin Ortiz MD
[2017-06-10] MEDS: (Novolin R) Insulin Human Regular 100 units/ml vial SC SCH ×5 (07:50→22:18)
--- NOTE | 2017-06-10 18:10 | CP.PCM.PN ---
Subjective - Date & Time of Evaluation Date of Evaluation: 06/10/17 Time of Evaluation: 18:10 - Subjective Subjective: pt is seen and examined, follow up consult is dictated #[id number] Objective - Vital Signs/Intake and Output Vital Signs (last 24 hours): Temp Pulse Resp BP Pulse Ox 98.3 F 72 20 151/78 H 100 06/10/17 07:00 06/10/17 07:00 06/10/17 07:00 06/10/17 09:20 06/10/17 07:00 Intake and Output: 06/10/17 06/10/17 06:59 18:59 Intake Total 120 Balance 120 - Medications Medications: Current Medications Albuterol/Ipratropium (Duoneb 3 Mg/0.5 Mg (3 Ml) Ud) 3 ml INH RQ6 PRN PRN Reason: Shortness of Breath Last Admin: 06/09/17 23:42 Dose: 3 ml Apixaban (Eliquis) 2.5 mg PO BID [facility] Last Admin: 06/10/17 09:20 Dose: 2.5 mg Famotidine (Pepcid) 20 mg IVP DAILY [facility] Last Admin: 06/10/17 09:21 Dose: 20 mg Heparin Sodium (Porcine) (Heparin) 5,000 units SC Q8 [facility] Last Admin: 06/10/17 13:32 Dose: 5,000 units Insulin Human Regular (Novolin R) 0 unit SC ACHS [facility] PRN Reason: Protocol Last Admin: 06/10/17 17:27 Dose: Not Given Metoprolol Tartrate (Lopressor) 25 mg PO BID [facility] Last Admin: 06/10/17 09:20 Dose: 25 mg Oxycodone/Acetaminophen (Percocet 5/325 Mg Tab) 1 tab PO Q6H PRN PRN Reason: Pain, moderate (4-7) Stop: 06/10/17 19:07 Last Admin: 06/09/17 20:55 Dose: 1 tab Pregabalin (Lyrica) 75 mg PO DAILY [facility] Last Admin: 06/10/17 09:21 Dose: 75 mg - Labs Labs: 06/07/17 06:15 06/09/17 14:36 PT 12.6 SECONDS (9.7-12.2) H 06/05/17 14:28 INR 1.1 06/05/17 14:28 APTT 44 SECONDS (21-34) H 06/05/17 14:28
[2017-06-11] MEDS: Albuterol-Ipratrop 3 mg / 0.5 (3 ml) UD INH PRN (02:29)
[2017-06-11] MEDS: (Novolin R) Insulin Human Regular 100 units/ml vial SC SCH ×3 (08:34→16:53)
--- NOTE | 2017-06-11 08:44 | PN ---
DATE: LOCATION: The patient is located in room 663, bed A. REQUESTED BY: Dr. Theodore Lucas MD REASON FOR FOLLOWUP: End-stage renal disease, continuation of hemodialysis. SUBJECTIVE: Mr. Gonzales is a 67-year-old elderly obese [place]amian male with a history of longstanding hypertension, diabetes, end-stage renal disease, coronary artery disease status post CABG, CVA with left-sided weakness, was admitted with altered mental status, hypotension, and bradycardia, idioventricular rhythm and severe hyperkalemia, potassium 7.7, requiring immediate emergency hemodialysis. The patient is feeling better, not in any acute distress. Denies any headache, dizziness. Denies any chest pain or palpitation. Denies any fever or cough. No abdominal pain, no nausea, vomiting, diarrhea. PHYSICAL EXAMINATION: VITAL SIGNS: As follows, blood pressure 151/78, pulse 72, respirations 20, temperature 98.3, saturation 100%. Height 5 feet 9 inches and weight is 225 pounds. GENERAL: Mr. Gonzales is a 67-year-old elderly male, moderately built, moderate nourished, not in any acute distress. HEENT: Pupils normal and reactive to light and accommodation. Conjunctivae pink. Sclerae are anicteric. Tongue is moist. NECK: Trachea is midline. LUNGS: Symmetric on both sides. Bilateral breath sounds present. Occasional basal crackles present. CVS: [place] at the fifth intercostal space, midclavicular line. S1, S2 audible. No murmur, no gallop. The patient has a midsternal scar present from the previous CABG. ABDOMEN: Soft, tympanic. No guarding. No hepatosplenomegaly. HEALTH SAFETY ENGINEER: The patient is alert and awake and oriented x3. Sensory system is grossly within normal limits. Motor, the patient has left-sided weakness. EXTREMITIES: No cyanosis, no clubbing. The patient has 1+ edema in both lower extremities, left more than the right. CURRENT MEDICATIONS: Include as follows, albuterol inhaler, DuoNeb 3 mL q. 6 hours, Eliquis 2.5 mg p.o. b.i.d., subcutaneous heparin 5000 units q. 8 hours, metoprolol 25 mg p.o. b.i.d., Lyrica 75 mg p.o. daily, Humulin R for sliding scale, Pepcid 20 mg IV daily, Tylenol 650 mg p.o. q. 6 hours p.r.n. His Accu-Cheks were 84, 99, and 135. SUMMARY: Mr. Gonzales is a 67-year-old obese [place]ian male with a history of hypertension, diabetes, coronary artery disease, end-stage renal disease, cerebrovascular accident with left-sided weakness, severe hyperkalemia. 1. End-stage renal disease. Continue hemodialysis three times a week Sunday, , Sunday. 2. Hypertension, continue current medication. The patient was hypertensive during dialysis yesterday, unable to remove not more than 1.4 liters during dialysis. Continue to monitor his blood pressure. 3. Coronary artery disease, asymptomatic at this time. 4. Cerebrovascular accident with left-sided weakness, continue his phosphate binders, Renvela 800 mg two packets p.o. t.i.d. with food and also Nephrocaps 1 tablet daily and Epogen during dialysis, Zemplar during dialysis. We will follow with you. Thank you for allowing me to participate in your patient's care. Restrict fluids to 1 liter per day, 2 g sodium and 2 g potassium diet. Martin Ortiz MD
--- NOTE | 2017-06-11 12:54 | CP.PCM.PN ---
Subjective - Date & Time of Evaluation Date of Evaluation: 06/11/17 Time of Evaluation: 12:53 - Subjective Subjective: pt is seen and examined, follow up consult is dictated #[id number] Objective - Vital Signs/Intake and Output Vital Signs (last 24 hours): Temp Pulse Resp BP Pulse Ox 97.7 F 64 20 135/72 98 06/11/17 07:20 06/11/17 11:44 06/11/17 07:20 06/11/17 10:33 06/11/17 07:20 Intake and Output: 06/11/17 06/11/17 06:59 18:59 Intake Total 120 Balance 120 - Medications Medications: Current Medications Acetaminophen (Tylenol 325mg Tab) 650 mg PO Q6 PRN PRN Reason: Headache Last Admin: 06/11/17 08:39 Dose: 650 mg Albuterol/Ipratropium (Duoneb 3 Mg/0.5 Mg (3 Ml) Ud) 3 ml INH RQ6 PRN PRN Reason: Shortness of Breath Last Admin: 06/11/17 02:29 Dose: 3 ml Apixaban (Eliquis) 2.5 mg PO BID [facility] Last Admin: 06/11/17 10:31 Dose: 2.5 mg Famotidine (Pepcid) 20 mg PO DAILY [facility] Last Admin: 06/11/17 10:31 Dose: 20 mg Heparin Sodium (Porcine) (Heparin) 5,000 units SC Q8 [facility] Last Admin: 06/11/17 06:26 Dose: 5,000 units Insulin Human Regular (Novolin R) 0 unit SC ACHS [facility] PRN Reason: Protocol Last Admin: 06/11/17 12:02 Dose: Not Given Metoprolol Tartrate (Lopressor) 25 mg PO BID [facility] Last Admin: 06/11/17 10:33 Dose: 25 mg Pregabalin (Lyrica) 75 mg PO DAILY [facility] Last Admin: 06/11/17 10:31 Dose: 75 mg - Labs Labs: 06/07/17 06:15 06/09/17 14:36 PT 12.6 SECONDS (9.7-12.2) H 06/05/17 14:28 INR 1.1 06/05/17 14:28 APTT 44 SECONDS (21-34) H 06/05/17 14:28
[2017-06-11 15:39] VITALS: PULSE 59; TEMP 97.4; O2SAT 96
--- NOTE | 2017-06-11 16:10 | CP.PCM.PN ---
Subjective - Date & Time of Evaluation Date of Evaluation: 06/11/17 Time of Evaluation: 16:10 Objective - Vital Signs/Intake and Output Vital Signs (last 24 hours): Temp Pulse Resp BP Pulse Ox 97.4 F L 59 L 20 132/62 96 06/11/17 15:35 06/11/17 15:35 06/11/17 15:35 06/11/17 15:35 06/11/17 15:35 Intake and Output: 06/11/17 06/11/17 06:59 18:59 Intake Total 120 Balance 120 - Medications Medications: Current Medications Acetaminophen (Tylenol 325mg Tab) 650 mg PO Q6 PRN PRN Reason: Headache Last Admin: 06/11/17 08:39 Dose: 650 mg Albuterol/Ipratropium (Duoneb 3 Mg/0.5 Mg (3 Ml) Ud) 3 ml INH RQ6 PRN PRN Reason: Shortness of Breath Last Admin: 06/11/17 02:29 Dose: 3 ml Apixaban (Eliquis) 2.5 mg PO BID [facility] Last Admin: 06/11/17 10:31 Dose: 2.5 mg Famotidine (Pepcid) 20 mg PO DAILY [facility] Last Admin: 06/11/17 10:31 Dose: 20 mg Heparin Sodium (Porcine) (Heparin) 5,000 units SC Q8 [facility] Last Admin: 06/11/17 13:16 Dose: 5,000 units Insulin Human Regular (Novolin R) 0 unit SC ACHS [facility] PRN Reason: Protocol Last Admin: 06/11/17 12:02 Dose: Not Given Metoprolol Tartrate (Lopressor) 25 mg PO BID [facility] Last Admin: 06/11/17 10:33 Dose: 25 mg Pregabalin (Lyrica) 75 mg PO DAILY [facility] Last Admin: 06/11/17 10:31 Dose: 75 mg - Labs Labs: 06/07/17 06:15 06/09/17 14:36 PT 12.6 SECONDS (9.7-12.2) H 06/05/17 14:28 INR 1.1 06/05/17 14:28 APTT 44 SECONDS (21-34) H 06/05/17 14:28
[2017-06-11 17:09] VITALS: BP 132/72
--- NOTE | 2017-06-12 00:19 | PN ---
FOLLOWUP RENAL CONSULTATION LOCATION: The patient is located in room 663, bed A. REQUESTED BY: Theodore Lucas MD REASON FOR FOLLOWUP: End-stage renal disease, continues on hemodialysis. HISTORY OF PRESENT ILLNESS: Mr. Gonzales is a 67-year-old obese elderly Greek male with a history of longstanding hypertension, diabetes, coronary artery disease, status post CABG, CVA with left-sided weakness, hyperlipidemia, BPH, who was admitted with chief complaints of hypotension, bradycardia, and idioventricular rhythm, altered mental status and found to have severe hyperkalemia, potassium 7.7, requiring emergency hemodialysis. Subsequently, his heart rhythm converted to normal sinus rhythm after emergency hemodialysis treatment. The patient is feeling much better, not in acute distress. Denies any headache. Denies any chest pain, palpitation. Denies any fever or cough. The patient is [facility] to [facility] back to [facility]. His last potassium is 3.5. PHYSICAL EXAMINATION: VITAL SIGNS: Blood pressure this morning 135/72, pulse 64, respirations 20, temperature 97.4, saturation 96%. Height 5 feet 9 inches and weight is 235 pounds. GENERAL: Mr. Gonzales is a 67-year-old obese elderly Greek male, well-built, well-nourished, not in distress with left-sided weakness. HEENT: Pupils are normal, reactive to light and accommodation. Conjunctivae pink. Sclerae anicteric. Tongue is moist. Trachea is midline. LUNGS: Symmetric on both sides. Bilateral breath sounds present. Clear on auscultation. CARDIOVASCULAR SYSTEM: [place] at the fifth intercostal space and midclavicular line. S1 and S2 audible. No murmur, no gallop. ABDOMEN: Normal in appearance, soft, tympanic. No guarding. No rigidity. No hepatosplenomegaly. CENTRAL NERVOUS SYSTEM: The patient is alert, awake, oriented x3. Cranial nerves II through XII grossly intact. Sensory system is grossly within normal limits. Motor system, left-sided weakness. EXTREMITIES: No cyanosis, no clubbing. The patient has 1+ edema in both lower extremities. CURRENT MEDICATIONS: Include as follows, silver sulfadiazine cream topical and Crestor 20 mg at bedtime, DuoNeb inhaler, lactulose 20 g p.o. at bedtime p.r.n., Colace 300 mg daily, Renvela 800 mg p.o. t.i.d., Lyrica 75 mg p.o. daily, Ambien 10 mg at bedtime and Nephro-Renaldo 1 tablet daily, Flomax 0.4 mg at bedtime, metoprolol 25 mg p.o. b.i.d., Pepcid 20 mg p.o. daily, Eliquis 2.5 mg p.o. b.i.d., Fioricet 1 tablet p.o. q.12 hours. LABORATORY DATA: No new labs are available today and Accu-Chek 96 and 125. ASSESSMENT AND PLAN: In summary, Mr. Gonzales is a 67-year-old obese elderly Greek male with hypertension, diabetes, coronary artery disease, status post coronary artery bypass graft, cerebrovascular accident with left-sided weakness, was admitted with altered mental status, hypotension, idioventricular rhythm, hyperkalemia requiring emergency hemodialysis. 1. End-stage renal disease. Continue hemodialysis three times a week Sunday, , Sunday. 2. Hypertension. Blood pressure is stable. Continue his current medications. 3. Diabetes. 4. Coronary artery disease, asymptomatic at this time. 5. Cerebrovascular accident with old left hemiparesis. The patient is being discharged to [facility] today. We will schedule for hemodialysis in the a.m. in the [facility]. Thank you for allowing me to participate in your patient's care. Continue Renvela, continue Nephro-Renaldo, and Procrit during dialysis. Martin Ortiz MD
--- NOTE | 2017-06-12 06:15 | CP.PCM.PN ---
Subjective - Date & Time of Evaluation Date of Evaluation: 06/11/17 Time of Evaluation: 10:35 - Subjective Subjective: occasional headache BP stable HR stable no chest pain K+3.5 Objective - Vital Signs/Intake and Output Vital Signs (last 24 hours): Temp Pulse Resp BP Pulse Ox 97.4 F L 59 L 20 132/72 96 06/11/17 15:35 06/11/17 15:35 06/11/17 15:35 06/11/17 17:08 06/11/17 15:35 - Labs Labs: 06/07/17 06:15 06/09/17 14:36 PT 12.6 SECONDS (9.7-12.2) H 06/05/17 14:28 INR 1.1 06/05/17 14:28 APTT 44 SECONDS (21-34) H 06/05/17 14:28 - Constitutional Appears: Non-toxic - Head Exam Head Exam: NORMAL INSPECTION - Eye Exam Eye Exam: absent: Scleral icterus - Neck Exam Neck Exam: Full ROM - Respiratory Exam Respiratory Exam: NORMAL BREATHING PATTERN - Cardiovascular Exam Cardiovascular Exam: REGULAR RHYTHM - GI/Abdominal Exam GI & Abdominal Exam: Normal Bowel Sounds - Extremities Exam Extremities Exam: Calf Tenderness Assessment and Plan - Assessment and Plan (Free Text) Assessment: Hyperkalemia - resolved ESRD Bradycardia - seondary to hyperK+, resolved HTN CAD Headache,chronic Plan: Will transfer back to [facility] when cleared by Neurologist
--- NOTE | 2017-06-12 06:24 | CP.PCM.PN ---
Subjective - Date & Time of Evaluation Date of Evaluation: 06/10/17 Time of Evaluation: 10:05 - Subjective Subjective: Occasional headache no chest pain tolerating dialysis Renal input well appreciated Objective - Vital Signs/Intake and Output Vital Signs (last 24 hours): Temp Pulse Resp BP Pulse Ox 97.4 F L 59 L 20 132/72 96 06/11/17 15:35 06/11/17 15:35 06/11/17 15:35 06/11/17 17:08 06/11/17 15:35 - Labs Labs: 06/07/17 06:15 06/09/17 14:36 PT 12.6 SECONDS (9.7-12.2) H 06/05/17 14:28 INR 1.1 06/05/17 14:28 APTT 44 SECONDS (21-34) H 06/05/17 14:28 - Constitutional Appears: Non-toxic - Head Exam Head Exam: NORMAL INSPECTION - Eye Exam Eye Exam: absent: Scleral icterus - Neck Exam Neck Exam: Full ROM - Respiratory Exam Respiratory Exam: Decreased Breath Sounds - Cardiovascular Exam Cardiovascular Exam: REGULAR RHYTHM - Exam External exam: NORMAL EXTERNAL EXAM - Extremities Exam Extremities Exam: absent: Calf Tenderness, Pedal Edema - Neurological Exam Neurological Exam: Alert, Oriented x3 Assessment and Plan - Assessment and Plan (Free Text) Assessment: Headache CAD ESRD T2dm Neuropathy HTN HyperK+, resolved Plan: Cont dialysis Neuro follow up
--- NOTE | 2017-06-12 06:33 | CP.PCM.PN ---
Subjective - Date & Time of Evaluation Date of Evaluation: 06/09/17 Time of Evaluation: 09:25 - Subjective Subjective: c/o headache no sob no chestpain Objective - Vital Signs/Intake and Output Vital Signs (last 24 hours): Temp Pulse Resp BP Pulse Ox 97.4 F L 59 L 20 132/72 96 06/11/17 15:35 06/11/17 15:35 06/11/17 15:35 06/11/17 17:08 06/11/17 15:35 - Labs Labs: 06/07/17 06:15 06/09/17 14:36 PT 12.6 SECONDS (9.7-12.2) H 06/05/17 14:28 INR 1.1 06/05/17 14:28 APTT 44 SECONDS (21-34) H 06/05/17 14:28 - Constitutional Appears: Non-toxic - Head Exam Head Exam: NORMAL INSPECTION - Eye Exam Eye Exam: absent: Scleral icterus - Neck Exam Neck Exam: Full ROM - Respiratory Exam Respiratory Exam: Decreased Breath Sounds - Cardiovascular Exam Cardiovascular Exam: REGULAR RHYTHM - GI/Abdominal Exam GI & Abdominal Exam: Soft. absent: Organomegaly - Extremities Exam Extremities Exam: Calf Tenderness. absent: Pedal Edema - Neurological Exam Neurological Exam: Alert, Oriented x3 Additional comments: left hemiparesis, old Assessment and Plan - Assessment and Plan (Free Text) Assessment: ESRD HyperK+ -non-compliant to meds Bradycardia secondary to HyperK+ Cephalgia HTN CAD-stable T2dm Plan: Cont dialysis Cont meds Neuro follow up
--- NOTE | 2017-06-12 06:46 | CP.PCM.DIS ---
Provider - Provider Date of Admission: 06/05/17 14:38 Attending physician: Theodore Collier MD Primary care physician: Theodore Collier Consults: Dr Michelle Frausto Time Spent in preparation of Discharge (in minutes): 35 Diagnosis - Discharge Diagnosis (1) Acute hyperkalemia Status: Acute (2) Bradycardia by electrocardiogram Status: Acute (3) CAD (coronary artery disease), [place] coronary artery Status: Acute (4) Cephalalgia Status: Acute (5) Diabetic neuropathy Status: Acute (6) ESRD (end stage renal disease) Status: Acute Hospital Course - Lab Results Lab Results: Micro Results 06/09/17 Unknown Nose MRSA Culture - Final MRSA NOT DETECTED 06/06/17 Unknown Back Gram Stain - Final 06/06/17 Unknown Back Wound Culture - Final Corynebacterium Species Coagulase Neg Staphylococcus 06/05/17 16:07 Naris MRSA Culture (Admit) - Final MRSA NOT DETECTED Most Recent Lab Values WBC 5.6 K/uL (4.8-10.8) 06/07/17 06:15 RBC 3.21 Mil/uL (4.40-5.90) L 06/07/17 06:15 Hgb 10.1 g/dL (12.0-18.0) L 06/07/17 06:15 Hct 32.4 % (35.0-51.0) L 06/07/17 06:15 MCV 100.7 fL (80.0-94.0) H 06/07/17 06:15 MCH 31.5 pg (27.0-31.0) H 06/07/17 06:15 MCHC 31.3 g/dL (33.0-37.0) L 06/07/17 06:15 RDW 17.7 % (11.5-14.5) H 06/07/17 06:15 Plt Count 145 K/uL (130-400) 06/07/17 06:15 MPV 8.6 fL (7.2-11.7) 06/07/17 06:15 Neut % (Auto) 65.5 % (50.0-75.0) 06/07/17 06:15 Lymph % (Auto) 15.0 % (20.0-40.0) L 06/07/17 06:15 [place] % (Auto) 10.6 % (0.0-10.0) H 06/07/17 06:15 Eos % (Auto) 8.5 % (0.0-4.0) H 06/07/17 06:15 Baso % (Auto) 0.4 % (0.0-2.0) 06/07/17 06:15 Neut # 3.7 K/uL (1.8-7.0) 06/07/17 06:15 Lymph # 0.8 K/uL (1.0-4.3) L 06/07/17 06:15 [place] # 0.6 K/uL (0.0-0.8) 06/07/17 06:15 Eos # 0.5 K/uL (0.0-0.7) 06/07/17 06:15 Baso # 0.0 K/uL (0.0-0.2) 06/07/17 06:15 PT 12.6 SECONDS (9.7-12.2) H 06/05/17 14:28 INR 1.1 06/05/17 14:28 APTT 44 SECONDS (21-34) H 06/05/17 14:28 pO2 28 mm/Hg (30-55) L 06/05/17 14:29 VBG pH 7.24 (7.32-7.43) L 06/05/17 14:29 VBG pCO2 71 mmHg (40-60) H* 06/05/17 14:29 VBG HCO3 24.2 mmol/L 06/05/17 14:29 VBG Total CO2 32.6 mmol/L (22-28) H 06/05/17 14:29 VBG O2 Sat (Calc) 53.6 % (40-65) 06/05/17 14:29 VBG Base Excess 1.0 mmol/L (0.0-2.0) 06/05/17 14:29 VBG Potassium 7.7 mmol/L (3.6-5.2) H* 06/05/17 14:29 Sodium 138.0 mmol/l (132-148) 06/05/17 14:29 Chloride 106.0 mmol/L (98-107) 06/05/17 14:29 Glucose 122 mg/dl (75-110) H 06/05/17 14:29 Lactate 1.8 mmol/L (0.7-2.1) 06/05/17 14:29 Crit Value Called To Dr. hayes 06/05/17 14:29 Crit Value Called By Amilcar amaral 06/05/17 14:29 Crit Value Read Back Y 06/05/17 14:29 Blood Gas Notified Time 1432 06/05/17 14:29 Sodium 135 mmol/L (132-148) 06/09/17 14:36 Potassium 3.5 mmol/L (3.6-5.2) L 06/09/17 14:36 Chloride 95 mmol/L (98-107) L 06/09/17 14:36 Carbon Dioxide 31 mmol/L (22-30) H 06/09/17 14:36 Anion Gap 12 (10-20) 06/09/17 14:36 BUN 20 mg/dL (9-20) 06/09/17 14:36 Creatinine 2.4 mg/dL (0.8-1.5) H 06/09/17 14:36 Est GFR ( Amer) 33 06/09/17 14:36 Est GFR (Non-Af Amer) 27 06/09/17 14:36 POC Glucose (mg/dL) 91 mg/dL (65-110) 06/11/17 16:28 Random Glucose 72 mg/dL (75-110) L 06/09/17 14:36 Calcium 7.7 mg/dl (8.6-10.4) L 06/09/17 14:36 Phosphorus 6.9 mg/dL (2.5-4.5) H 06/07/17 06:15 Magnesium 2.3 mg/dL (1.6-2.3) 06/07/17 06:15 Total Bilirubin 0.6 mg/dL (0.2-1.3) 06/07/17 06:15 AST 40 U/L (17-59) 06/07/17 06:15 ALT 60 U/L (21-72) 06/07/17 06:15 Alkaline Phosphatase 200 U/L (38-126) H 06/07/17 06:15 Troponin I 0.0610 ng/mL (0.00-0.120) 06/05/17 14:28 NT-Pro-B Natriuret Pep 00902 pg/mL (0-900) H 06/05/17 14:28 Total Protein 7.5 g/dL (6.3-8.3) 06/07/17 06:15 Albumin 3.3 g/dL (3.5-5.0) L 06/07/17 06:15 Globulin 4.2 gm/dL (2.2-3.9) H 06/07/17 06:15 Albumin/Globulin Ratio 0.8 (1.0-2.1) L 06/07/17 06:15 Free T4 0.97 ng/dL (0.78-2.19) 06/06/17 06:10 TSH 3rd Generation 7.65 mIU/L (0.46-4.68) H 06/05/17 14:28 Venous Blood Potassium 7.7 mmol/L (3.6-5.2) H* 06/05/17 14:29 Hep Bs Antigen Negative (NEGATIVE) 06/07/17 12:18 - Hospital Course Hospital Course: Pt received multiple dialysis which corrected the hyperkalemia and bradycardia. His course in the [place] was uneventful. Discharge Exam - Head Exam Head Exam: NORMAL INSPECTION - Eye Exam Eye Exam: absent: Scleral icterus - ENT Exam ENT Exam: Mucous Membranes Moist - Neck Exam Neck exam: Full Rom - Respiratory Exam Respiratory Exam: NORMAL BREATHING PATTERN - Cardiovascular Exam Cardiovascular Exam: REGULAR RHYTHM - GI/Abdominal Exam GI & Abdominal Exam: Soft - Extremities Exam Extremities exam: calf tenderness, pedal edema - Neurological Exam Neurological exam: Alert, Oriented x3 Additional comments: left hemiparesis Discharge Plan - Discharge Medications Prescriptions: Acetaminophen/Butalbital/Caf [Fioricet] 1 tab PO Q12 PRN 30 Days tab PRN Reason: Headache - Follow Up Plan Condition: STABLE Disposition: NURSING FACILITY MEDICAID CERT Instructions: Heart Failure (DC), Dialysis Diet (DC), Hyperkalemia (DC), Bradycardia (DC), End Stage Kidney Disease (DC) Additional Instructions: PLACE UNDER THE SERVICE OF DR. COLLIER WHILE AT [facility]---CALL UPON ARRIVAL FOR ADMITTING ORDERS. CONTINUE MEDICATIONS PER THE MED REC. WOUND EVAL PER FACILITY PROTOCOL. DIETARY CHANGES PER RENAL: 2 GM SODIUM, 2 GM POTASSIUM, 1 LITER FLUIDS DAILY CONTINUE DIALYSIS USUAL. FOR FURTHER ORDERS, CONTACT DR. COLLIER'S OFFICE. Referrals: Theodore Collier MD [Staff Provider] - Martin Ortiz MD [Staff Provider] - Harry Machuca MD [Staff Provider] -
== END 2017-06-11 18:32 | DRG 640 ==
LOC: C.ER 14:10 → C.9E 14:38 → C.9I 15:26 → C.6T 06-09 05:45
PROVIDERS: ADMIT Internal Medicine; ATTEND Internal Medicine
PROC: 5A1D70Z Performance of Urinary Filtration, Intermittent, Less than 6 Hours Per Day (ICD-10-PCS; principal; 2017-06-05)
DX: E87.5 Hyperkalemia (principal); G93.41 Metabolic encephalopathy; I13.2 Hypertensive heart and chronic kidney disease with heart failure and with stage 5 chronic kidney disease, or end stage renal disease; N18.6 End stage renal disease; I69.354 Hemiplegia and hemiparesis following cerebral infarction affecting left non-dominant side; N25.81 Secondary hyperparathyroidism of renal origin; L02.212 Cutaneous abscess of back [any part, except buttock and flank]; E11.22 Type 2 diabetes mellitus with diabetic chronic kidney disease; E11.40 Type 2 diabetes mellitus with diabetic neuropathy, unspecified; R00.1 Bradycardia, unspecified; E11.319 Type 2 diabetes mellitus with unspecified diabetic retinopathy without macular edema; E11.69 Type 2 diabetes mellitus with other specified complication; E66.9 Obesity, unspecified; I50.9 Heart failure, unspecified; I25.10 Atherosclerotic heart disease of native coronary artery without angina pectoris; D64.9 Anemia, unspecified; N40.0 Benign prostatic hyperplasia without lower urinary tract symptoms; G47.30 Sleep apnea, unspecified; J45.909 Unspecified asthma, uncomplicated; E78.5 Hyperlipidemia, unspecified; Z87.891 Personal history of nicotine dependence; Z95.1 Presence of aortocoronary bypass graft; Z91.11 Patient's noncompliance with dietary regimen; Z91.14 Patient's other noncompliance with medication regimen; Z91.19 Patient's noncompliance with other medical treatment and regimen; Z99.2 Dependence on renal dialysis; Z88.6 Allergy status to analgesic agent; Z79.4 Long term (current) use of insulin

== ENCOUNTER 2017-08-16 21:34 | Inpatient (IN) | payer MEDICARE, MEDICAID ==
[2017-08-16 21:35] VITALS: BMI 29.5
--- NOTE | 2017-08-16 22:00 | C.PDOC ---
History Of Present Illness [facility] complaint of [facility]. He is a dialysis patient with treatments on Tuesdays, , and Saturdays; he had a treatment today and states they told me he has pneumonia. Denies fever, chills, nausea, vomiting, or chest pain. Time Seen by Provider: 08/16/17 21:59 Chief Complaint (Nursing): Shortness Of Breath History Per: Patient History/Exam Limitations: no limitations Onset/Duration Of Symptoms: Hrs Current Symptoms Are (Timing): Still Present Initiating Event: Other (Not known) Exacerbating Factor(s): Laying Flat, Coughing Current Respiratory Medications: None Severity: Moderate Pain Scale Rating Of: 4 Associated Symptoms: denies: Fever, Chills, Chest Pain, Other (Nausea, Vomiting) Reports Recently: Seen In ED, Treated By A Physician, Hospitalized Recent travel outside of the [place]: No Additional History Per: Patient Past Medical History Reviewed: Historical Data, Nursing Documentation, Vital Signs Vital Signs: Last Vital Signs Temp 98.2 F 08/16/17 22:19 Pulse 83 08/16/17 22:19 Resp 19 08/16/17 22:19 BP 163/65 H 08/16/17 21:37 Pulse Ox 99 08/16/17 22:47 - Medical History PMH: Anemia, Asthma, CHF, CVA (affecting left side), Depression ('MAJOR DEPRESSIVE DISORDER,SINGLE EPISODE,UNSPECIFIED"), HTN, Peripheral Edema, End Stage Renal Disease, Chronic Kidney Disease, Sleep Apnea Surgical History: CABG, Endoscopy - [facility] (06/05/17) DIALYSIS ARTERIOVENOSTOM (10/07/14) EXCISION OF SIGMOID COLON, ENDO, DIAGN (09/26/16) INCIS W REM OF FORIEGN BODY OR DEV FROM SKIN & SUBCUT TISSUE (12/23/14) PERFORMANCE OF URINARY FILTRATION, MULTIPLE (04/11/17) Family History: States: No Known Family Hx - Social History Hx Alcohol Use: No Hx Substance Use: No - Immunization History Hx Influenza Vaccination: Yes Hx Pneumococcal Vaccination: Yes Review Of Systems Constitutional: Negative for: Fever, Chills Cardiovascular: Negative for: Chest Pain Respiratory: Positive for: Shortness of Breath Gastrointestinal: Negative for: Nausea, Vomiting Physical Exam - Physical Exam Appears: Non-toxic Skin: Warm, Dry Head: Normacephalic Eye(s): bilateral: Normal Inspection Oral Mucosa: Dry Neck: Trachea Midline, Supple Chest: No Tenderness, Other (Midline CABG scar) Cardiovascular: Rhythm Regular Respiratory: No Rales, Rhonchi (Diffuse scattered, left greater than right), No Wheezing Gastrointestinal/Abdominal: Soft, No Tenderness Back: No CVA Tenderness Extremity: Pedal Edema (Trace), Other (Left arm graft with dialysis shuny with good thrill and bruit) Extremity: Bilateral: Normal Color And Temperature Pulses: Left Dorsalis Pedis: Normal, Right Dorsalis Pedis: Normal Neurological/Psych: Oriented x3, Other (Left hemiplegia) Gait: Unable To Assess ED Course And Treatment - Laboratory Results Result Diagrams: 08/16/17 22:10 08/16/17 22:10 ECG: Interpreted By Me, Viewed By Me ECG Rhythm: Sinus Rhythm (86), 1st Degree HB, R BBB, Nonspecific Changes O2 Sat by Pulse Oximetry: 99 Pulse Ox Interpretation: Normal - Radiology CXR: Interpreted by Me, Viewed By Me CXR Interpretation: Yes: Infiltrates (rll), Cardiomegaly, Other (chf, cabg, small left effusion) Progress Note: EKG, blood work, CXR, and flu swab ordered. Disposition Discussed With DrAdeola: Theodore Lucas Comment: accepted the pt onhis service and took over the care at 11:50PM Doctor Will See Patient In The: Hospital Counseled Patient/Family Regarding: Studies Performed, Diagnosis - Disposition Disposition: HOSPITALIZED Disposition Time: 21:59 Condition: FAIR Forms: [facility] (Swiss) - POA Present On Arrival: Poor Glycemic Control - Clinical Impression Clinical Impression: Chronic congestive heart failure, Dyspnea, ESRD (end stage renal disease) on dialysis, Pneumonia - Scribe Statement The provider has reviewed the documentation as recorded by the Scribnancy Dawson All medical record entries made by the Ileanaibnancy were at my direction and personally dictated by me. I have reviewed the chart and agree that the record accurately reflects my personal performance of the history, physical exam, medical decision making, and the department course for this patient. I have also personally directed, reviewed, and agree with the discharge instructions and disposition. Decision To Admit - Pt Status Changed To: Hospital Disposition Of: Inpatient - Admit Certification Admit to Inpatient:: After my assessment, the patient will require hospitalization for at least two midnights. This is because of the severity of symptoms shown, intensity of services needed, and/or the medical risk in this patient being treated as an outpatient. - InPatient: Physician Admission Certification: I certify that this patient requires 2 or more midnights of care for the following reason:: After my assessment, the patient will require hospitalization for at least two midnights. This is because of the severity of symptoms shown, intensity of services needed, and/or the medical risk in this patient being treated as an outpatient. - . Bed Request Type: Regular Admitting Physician: Theodore Lucas Patient Diagnosis: Chronic congestive heart failure, Dyspnea, ESRD (end stage renal disease) on dialysis, Pneumonia
[2017-08-16 22:15] LABS: BASO % 0.9 % (0.0-2.0); EOS # 0.5 K/uL (0.0-0.7); EOS % 7.9 % (0.0-4.0); HEMOGLOBIN 9.7 g/dL (12.0-18.0); LYMPH # 0.7 K/uL (1.0-4.3); LYMPH % 12.4 % (20.0-40.0); MEAN CELL VOLUME 99.3 fL (80.0-94.0); MEAN CORPUSCULAR HEMOGLOBIN 33.3 pg (27.0-31.0); MEAN CORPUSCULAR HGB CONC 33.5 g/dL (33.0-37.0); MEAN PLATELET VOLUME 6.7 fL (7.2-11.7); MONO # 0.7 K/uL (0.0-0.8); MONO % 11.6 % (0.0-10.0); NEUT # 3.9 K/uL (1.8-7.0); NEUT % 67.2 % (50.0-75.0); NRBC % 0.1 % (0.0-2.0); RBC 2.91 Mil/uL (4.40-5.90); RED CELL DISTRIBUTION WIDTH 14.9 % (11.5-14.5); WHITE BLOOD COUNT 5.8 K/uL (4.8-10.8)
[2017-08-16 22:23] LABS: INR 1.2; PROTHROMBIN TIME 13.5 SECONDS (9.7-12.2)
[2017-08-16 22:24] LABS: ARTERIAL BLOOD GAS HCO3 31.7 mmol/L (21-28); ARTERIAL BLOOD GAS O2 SAT 97.3 % (95-98); ARTERIAL BLOOD GAS PCO2 54 mm/Hg (35-45); ARTERIAL BLOOD GAS PH 7.42 (7.35-7.45); ARTERIAL BLOOD GAS PO2 91 mm/Hg (80-100); ARTERIAL BLOOD GAS TCO2 36.7 mmol/L (22-28)
[2017-08-16 22:27] LABS: ALB/GLOB RATIO 0.8 (1.0-2.1); ALBUMIN 3.6 g/dL (3.5-5.0); CALCIUM 8.9 mg/dl (8.6-10.4)
[2017-08-16] MEDS ORDERED: Moxifloxacin IV 400mg/250ml NS 400 MG/250 ML BAG IVPB ONE (23:43)
[2017-08-17] MEDS ORDERED: Moxifloxacin IV 400mg/250ml NS 400 MG/250 ML BAG IVPB ONE
--- NOTE | 2017-08-17 07:30 | RAD ---
PROCEDURE: CHEST RADIOGRAPH, 1 VIEW HISTORY: SOB COMPARISON: 06/07/2017 FINDINGS: LUNGS: Pulmonary vascular congestion common mild pulmonary edema. PLEURA: Small bilateral pleural effusions. CARDIOVASCULAR: Cardiomegaly. Incidental Finding(s): Postoperative changes related to sternotomy. OSSEOUS STRUCTURES: No significant abnormalities. VISUALIZED UPPER ABDOMEN: Normal. OTHER FINDINGS: None. IMPRESSION: Cardiomegaly/pulmonary edema. Similar findings identified on the prior study.
[2017-08-17] MEDS ORDERED: Oxycodone/Acetaminophen 5/325 mg Tab ONE (09:37)
[2017-08-17] MEDS: Oxycodone/Acetaminophen 5/325 mg Tab PO PRN (09:39)
[2017-08-17] MEDS ORDERED: [UNRECOGNIZED DRUG - REMARK] PO SCH ×2 (10:00)
[2017-08-17] MEDS: Multivitamin Vitamin B Complex (Nephro-Vite) Tab PO SCH (11:21)
--- NOTE | 2017-08-17 16:43 | CP.PCM.CON ---
History of Present Illness - History of Present Illness History of Present Illness: Reason for consultation: shortness of breath 67-year-old male with COPD, end-stage renal disease on hemodialysis was transferred to ER for shortness of breath. Chest x-ray done showed congestive changes and chronic infiltrate. Patient also complaining of slight cough but denies fever chills Review of Systems - Review of Systems All systems: reviewed and no additional remarkable complaints except (shortness of breath and cough) Past Patient History - Infectious Disease Hx of Infectious Diseases: None - Past Medical History & Family History Past Medical History?: Yes - Past Social History Smoking Status: Former Smoker - CARDIAC Hx Congestive Heart Failure: Yes Hx Hypertension: Yes Hx Peripheral Edema: Yes - PULMONARY Hx Asthma: Yes Hx Sleep Apnea: Yes - NEUROLOGICAL HX Cerebrovascular Accident: Yes (non ambulatory) - HEENT Hx HEENT Problems: Yes Hx Cataracts: Yes - RENAL Hx Chronic Kidney Disease: Yes - ENDOCRINE/METABOLIC Hx Diabetes Mellitus Type 2: Yes - HEMATOLOGICAL/ONCOLOGICAL Hx Anemia: Yes - INTEGUMENTARY Hx Dermatological Problems: Yes Other/Comment: healed sacral ulcer - MUSCULOSKELETAL/RHEUMATOLOGICAL Hx Musculoskeletal Disorders: Yes Hx Falls: Yes Hx Unsteady Gait: Yes Other/Comment: HX: MUSCLE WEAKNESS(GENERALIZED), Left sided body weakness due to CVA - GASTROINTESTINAL Hx Gastrointestinal Disorders: Yes Other/Comment: HX: DYSPHAGIA,UNSPECIFIED - GENITOURINARY/GYNECOLOGICAL Hx Genitourinary Disorders: No - PSYCHIATRIC Hx Depression: Yes ('MAJOR DEPRESSIVE DISORDER,SINGLE EPISODE,UNSPECIFIED") Hx Substance Use: No - SURGICAL HISTORY Hx Coronary Artery Bypass Graft: Yes - ANESTHESIA Hx Anesthesia: Yes Hx Anesthesia Reactions: No Hx Malignant Hyperthermia: No Meds Allergies/Adverse Reactions: Allergies Allergy/AdvReac Type Severity Reaction Status Date / Time iodine Allergy Intermediate RASH Verified 08/16/17 21:44 aspirin Allergy Verified 08/16/17 21:44 clopidogrel bisulfate Allergy UNKNOWN Verified 08/16/17 21:44 [From Plavix] Penicillins Allergy UNKNOWN Verified 08/16/17 21:44 IV DYE Allergy Uncoded 08/16/17 21:44 - Medications Medications: Current Medications Acetaminophen (Tylenol 325mg Tab) 650 mg PO Q4 PRN PRN Reason: Temperature Acetaminophen/Butalbital/Caffeine (Fioricet) 1 tab PO Q12 PRN PRN Reason: Headache Albuterol/Ipratropium (Duoneb 3 Mg/0.5 Mg (3 Ml) Ud) 3 ml IH RQ6 PRN PRN Reason: Shortness of Breath Apixaban (Eliquis) 2.5 mg PO BID [facility] Last Admin: 08/17/17 11:21 Dose: 2.5 mg Docusate Sodium (Colace) 300 mg PO HS [facility] Famotidine (Pepcid) 20 mg PO DAILY [facility] Last Admin: 08/17/17 11:21 Dose: 20 mg Guaifenesin (Robitussin) 100 mg PO Q6 PRN PRN Reason: Cough Lactulose (Enulose) 20 gm PO HS PRN PRN Reason: Constipation Loratadine (Claritin) 10 mg PO DAILY PRN PRN Reason: Allergy symptoms Metoprolol Tartrate (Lopressor) 25 mg PO BID [facility] Last Admin: 08/17/17 11:21 Dose: 25 mg Oxycodone/Acetaminophen (Percocet 5/325 Mg Tab) 1 tab PO Q6H PRN PRN Reason: Pain, Mild (1-3) Stop: 08/20/17 09:19 Last Admin: 08/17/17 09:39 Dose: 1 tab Pregabalin (Lyrica) 75 mg PO DAILY [facility] Last Admin: 08/17/17 11:21 Dose: 75 mg Rosuvastatin Calcium (Crestor) 20 mg PO [facility] Sevelamer Carbonate (Renvela) 800 mg PO TID [facility] Last Admin: 08/17/17 16:30 Dose: 800 mg Tamsulosin HCl (Flomax) 0.4 mg PO [facility] Vitamin B Complex/Vit C/Folic Acid (Nephro-Renalod) 1 tab PO DAILY [facility] Last Admin: 08/17/17 11:21 Dose: 1 tab Zolpidem Tartrate (Ambien) 10 mg PO HS PRN PRN Reason: Insomnia Physical Exam - Head Exam Head Exam: ATRAUMATIC, NORMOCEPHALIC - ENT Exam ENT Exam: Mucous Membranes Moist - Respiratory Exam Respiratory Exam: Rales - Cardiovascular Exam Cardiovascular Exam: REGULAR RHYTHM - GI/Abdominal Exam GI & Abdominal Exam: Normal Bowel Sounds, Soft Results - Vital Signs Recent Vital Signs: Last Vital Signs Temp 98.9 F 08/17/17 07:45 Pulse 65 08/17/17 14:54 Resp 18 08/17/17 14:54 BP 165/63 H 08/17/17 14:54 Pulse Ox 99 08/17/17 14:54 - Labs Result Diagrams: 08/16/17 22:10 08/16/17 22:10 Labs: Laboratory Results - last 24 hr 08/16/17 08/16/17 08/16/17 22:10 22:10 22:10 WBC 5.8 RBC 2.91 L Hgb 9.7 L Hct 28.9 L MCV 99.3 H MCH 33.3 H MCHC 33.5 RDW 14.9 H Plt Count 228 MPV 6.7 L Neut % (Auto) 67.2 Lymph % (Auto) 12.4 L [place] % (Auto) 11.6 H Eos % (Auto) 7.9 H Baso % (Auto) 0.9 Neut # 3.9 Lymph # 0.7 L [place] # 0.7 Eos # 0.5 Baso # 0.0 PT 13.5 H INR 1.2 APTT 40 H Puncture Site pCO2 pO2 HCO3 ABG pH ABG Total CO2 ABG O2 Saturation ABG Base Excess Esvin Test ABG Potassium A-a O2 Difference Respiratory Index Glucose Lactate Liter Flow FiO2 Sodium 134 Potassium 3.9 Chloride 92 L Carbon Dioxide 34 H Anion Gap 12 BUN 17 Creatinine 3.1 H Est GFR ( Amer) 25 Est GFR (Non-Af Amer) 20 Random Glucose 140 H Calcium 8.9 Magnesium 2.0 Total Bilirubin 1.0 AST 57 ALT 71 Alkaline Phosphatase 309 H D NT-Pro-B Natriuret Pep 198782 H Total Protein 7.8 Albumin 3.6 Globulin 4.2 H Albumin/Globulin Ratio 0.8 L Arterial Blood Potassium Influenza Typ A,B (EIA) 08/16/17 08/16/17 22:12 22:22 WBC RBC Hgb Hct MCV MCH MCHC RDW Plt Count MPV Neut % (Auto) Lymph % (Auto) [place] % (Auto) Eos % (Auto) Baso % (Auto) Neut # Lymph # [place] # Eos # Baso # PT INR APTT Puncture Site Rba pCO2 54 H pO2 91 HCO3 31.7 H ABG pH 7.42 ABG Total CO2 36.7 H ABG O2 Saturation 97.3 ABG Base Excess 8.7 H Esvin Test Na ABG Potassium 3.4 L A-a O2 Difference 55.0 Respiratory Index 0.6 Glucose 126 H Lactate 1.0 Liter Flow 3.0 FiO2 30.0 Sodium 137.0 Potassium Chloride 103.0 Carbon Dioxide Anion Gap BUN Creatinine Est GFR ( Amer) Est GFR (Non-Af Amer) Random Glucose Calcium Magnesium Total Bilirubin AST ALT Alkaline Phosphatase NT-Pro-B Natriuret Pep Total Protein Albumin Globulin Albumin/Globulin Ratio Arterial Blood Potassium 3.4 L Influenza Typ A,B (EIA) Negative for flu a/b Assessment & Plan (1) COPD (chronic obstructive pulmonary disease) Status: Acute Comment: continue nebulizer treatment. Chest x-ray consistent with congestive changes. Continue Avelox as patient allergic to penicillin. Continue hemodialysis (2) ESRD (end stage renal disease) on dialysis Status: Acute
[2017-08-17] MEDS: guaiFENesin 100 mg/5 ml Syrup UD PO PRN (21:29)
[2017-08-18] MEDS: guaiFENesin 100 mg/5 ml Syrup UD PO PRN ×2 (00:19→21:08)
[2017-08-18] MEDS: Oxycodone/Acetaminophen 5/325 mg Tab PO PRN ×2 (00:20→20:17)
[2017-08-18 07:51] LABS: BASO # 0.1 K/uL (0.0-0.2); BASO % 2.1 % (0.0-2.0); EOS # 0.8 K/uL (0.0-0.7); HEMOGLOBIN 9.3 g/dL (12.0-18.0); LYMPH # 1.2 K/uL (1.0-4.3); MEAN CORPUSCULAR HEMOGLOBIN 33.7 pg (27.0-31.0); MEAN CORPUSCULAR HGB CONC 33.3 g/dL (33.0-37.0); MONO # 0.6 K/uL (0.0-0.8); MONO % 12.9 % (0.0-10.0); NEUT # 2.3 K/uL (1.8-7.0); NRBC % 0.1 % (0.0-2.0); RBC 2.75 Mil/uL (4.40-5.90); RED CELL DISTRIBUTION WIDTH 15.1 % (11.5-14.5)
[2017-08-18 08:21] LABS: ALB/GLOB RATIO 0.8 (1.0-2.1); ALBUMIN 3.2 g/dL (3.5-5.0); CALCIUM 8.9 mg/dl (8.6-10.4)
[2017-08-18] MEDS: Albuterol-Ipratrop 3 mg / 0.5 (3 ml) UD IH PRN ×5 (08:24→23:46)
[2017-08-18] MEDS: Multivitamin Vitamin B Complex (Nephro-Vite) Tab PO SCH (10:00)
[2017-08-18] MEDS ORDERED: Albumin Human 25% (12.5 gm/50 ml) IV ONE ×2 (10:30→12:15)
[2017-08-18] MEDS: Apap-Butalbital-Caffeine 325-50-40mg Tab PO PRN (12:13)
--- NOTE | 2017-08-18 12:52 | CP.PCM.CON ---
History of Present Illness - History of Present Illness History of Present Illness: pt is seen and examined, full consult is dictated #[id number] s/p hd today, uf goal is 3 lit Past Patient History - Infectious Disease Hx of Infectious Diseases: None - Past Medical History & Family History Past Medical History?: Yes - Past Social History Smoking Status: Never Smoked - CARDIAC Hx Congestive Heart Failure: Yes Hx Hypertension: Yes Hx Peripheral Edema: Yes - PULMONARY Hx Asthma: Yes Hx Sleep Apnea: Yes - NEUROLOGICAL HX Cerebrovascular Accident: Yes (non ambulatory) - HEENT Hx HEENT Problems: Yes Hx Cataracts: Yes - RENAL Hx Chronic Kidney Disease: Yes Type of Dialysis Access: left AVS Date of Last Dialysis Treatment: 08/16/17 Hx Renal Failure: Yes - ENDOCRINE/METABOLIC Hx Diabetes Mellitus Type 2: Yes - HEMATOLOGICAL/ONCOLOGICAL Hx Anemia: Yes - INTEGUMENTARY Hx Dermatological Problems: Yes Other/Comment: healed sacral ulcer - MUSCULOSKELETAL/RHEUMATOLOGICAL Hx Musculoskeletal Disorders: Yes Hx Falls: Yes Hx Unsteady Gait: Yes Other/Comment: HX: MUSCLE WEAKNESS(GENERALIZED), Left sided body weakness due to CVA - GASTROINTESTINAL Hx Gastrointestinal Disorders: Yes Other/Comment: HX: DYSPHAGIA,UNSPECIFIED - GENITOURINARY/GYNECOLOGICAL Hx Genitourinary Disorders: No - PSYCHIATRIC Hx Depression: Yes ('MAJOR DEPRESSIVE DISORDER,SINGLE EPISODE,UNSPECIFIED") Hx Substance Use: No - SURGICAL HISTORY Hx Coronary Artery Bypass Graft: Yes - ANESTHESIA Hx Anesthesia: Yes Hx Anesthesia Reactions: No Hx Malignant Hyperthermia: No Has any member of the family had a problem w/ anesthesia?: No Meds Allergies/Adverse Reactions: Allergies Allergy/AdvReac Type Severity Reaction Status Date / Time iodine Allergy Intermediate RASH Verified 08/16/17 21:44 aspirin Allergy Verified 08/16/17 21:44 clopidogrel bisulfate Allergy UNKNOWN Verified 08/16/17 21:44 [From Plavix] Penicillins Allergy UNKNOWN Verified 08/16/17 21:44 IV DYE Allergy Uncoded 08/16/17 21:44 - Medications Medications: Current Medications Acetaminophen (Tylenol 325mg Tab) 650 mg PO Q4 PRN PRN Reason: Temperature Acetaminophen/Butalbital/Caffeine (Fioricet) 1 tab PO Q12 PRN PRN Reason: Headache Last Admin: 08/18/17 12:13 Dose: 1 tab Albuterol/Ipratropium (Duoneb 3 Mg/0.5 Mg (3 Ml) Ud) 3 ml IH RQ6 PRN PRN Reason: Shortness of Breath Last Admin: 08/18/17 08:24 Dose: 3 ml Apixaban (Eliquis) 2.5 mg PO BID [facility] Last Admin: 08/18/17 10:00 Dose: Not Given Docusate Sodium (Colace) 300 mg PO HS [facility] Last Admin: 08/17/17 21:19 Dose: 300 mg Famotidine (Pepcid) 20 mg PO DAILY [facility] Last Admin: 08/18/17 10:00 Dose: Not Given Guaifenesin (Robitussin) 100 mg PO Q6 PRN PRN Reason: Cough Last Admin: 08/17/17 21:29 Dose: 100 mg Lactulose (Enulose) 20 gm PO HS PRN PRN Reason: Constipation Loratadine (Claritin) 10 mg PO DAILY PRN PRN Reason: Allergy symptoms Metoprolol Tartrate (Lopressor) 25 mg PO BID [facility] Last Admin: 08/18/17 10:00 Dose: Not Given Oxycodone/Acetaminophen (Percocet 5/325 Mg Tab) 1 tab PO Q6H PRN PRN Reason: Pain, Mild (1-3) Stop: 08/20/17 09:19 Last Admin: 08/18/17 00:20 Dose: 1 tab Pregabalin (Lyrica) 75 mg PO DAILY [facility] Last Admin: 08/18/17 10:00 Dose: Not Given Rosuvastatin Calcium (Crestor) 20 mg PO [facility] Last Admin: 08/17/17 21:18 Dose: 20 mg Sevelamer Carbonate (Renvela) 800 mg PO TIDCC [facility] Last Admin: 08/18/17 07:42 Dose: 800 mg Tamsulosin HCl (Flomax) 0.4 mg PO [facility] Last Admin: 08/17/17 21:21 Dose: 0.4 mg Vitamin B Complex/Vit C/Folic Acid (Nephro-Renaldo) 1 tab PO DAILY [facility] Last Admin: 08/18/17 10:00 Dose: Not Given Zolpidem Tartrate (Ambien) 5 mg PO HS PRN PRN Reason: Insomnia Last Admin: 08/18/17 00:20 Dose: 5 mg Results - Vital Signs Recent Vital Signs: Last Vital Signs Temp 97.7 F 08/18/17 09:45 Pulse 76 08/18/17 12:40 Resp 15 08/18/17 09:45 BP 104/47 L 08/18/17 12:40 Pulse Ox 96 08/18/17 08:00 - Labs Result Diagrams: 08/18/17 07:44 08/18/17 07:44 Labs: Laboratory Results - last 24 hr 08/17/17 08/18/17 08/18/17 19:57 07:44 07:44 WBC 5.0 RBC 2.75 L Hgb 9.3 L Hct 27.7 L MCV 101.0 H MCH 33.7 H MCHC 33.3 RDW 15.1 H Plt Count 230 MPV 7.0 L Neut % (Auto) 46.0 L Lymph % (Auto) 24.0 [place] % (Auto) 12.9 H Eos % (Auto) 15.0 H Baso % (Auto) 2.1 H Neut # 2.3 Lymph # 1.2 [place] # 0.6 Eos # 0.8 H Baso # 0.1 Sodium 134 Potassium 4.8 Chloride 93 L Carbon Dioxide 31 H Anion Gap 16 BUN 34 H Creatinine 5.1 H Est GFR ( Amer) 14 Est GFR (Non-Af Amer) 11 Random Glucose 97 Calcium 8.9 Total Bilirubin 0.7 AST 45 ALT 49 Alkaline Phosphatase 259 H Total Protein 7.2 Albumin 3.2 L Globulin 3.9 Albumin/Globulin Ratio 0.8 L Procalcitonin 6.02 H
[2017-08-19] MEDS: Apap-Butalbital-Caffeine 325-50-40mg Tab PO PRN (00:45)
[2017-08-19] MEDS: Oxycodone/Acetaminophen 5/325 mg Tab PO PRN (04:45)
--- NOTE | 2017-08-19 06:24 | CON ---
DATE: 08/18/2017 LOCATION: Room 359, bed A. REQUESTED BY: Theodore Lucas MD REASON FOR RENAL CONSULTATION: End-stage renal disease, shortness of breath, for continuation of the hemodialysis. HISTORY OF PRESENT ILLNESS: Mr. Conor Gonzales is an about 67-year-old obese [place] male with a past medical history significant for longstanding hypertension, diabetes, hyperlipidemia, coronary artery disease - status post CABG, hyperkalemia, CVA with left-sided weakness, bedridden for long-time, resident of detention, who was admitted from the detention with a chief complaint of shortness of breath and also complaining of severe back pain. Denies any chest pain or palpitation. Denies any fevers or chills. Denies any nausea, vomiting or diarrhea. Denies any abdominal pain. Denies any dysuria or frequency. Denies any swelling of the legs. Patient does complain of occasional headache and back pain. PAST MEDICAL HISTORY: Significant for longstanding hypertension, diabetes, hyperlipidemia, coronary artery disease - status post CABG, CVA with left-sided weakness, and end-stage renal disease - on hemodialysis three times a week Sunday, , Sunday. PAST SURGICAL HISTORY: Status post CABG, also left upper extremity AV fistula. ALLERGIES: ALLERGIC TO IODINE, ASPIRIN, PLAVIX, PENICILLIN, AND IV DYE. SOCIAL HISTORY: Denies any smoking, alcohol or drugs. PERSONAL HISTORY: Single. He is a resident of detention. FAMILY HISTORY: Not significant. He has a very supportive niece. CURRENT MEDICATIONS: Include as follows; Ambien 5 mg at bedtime, Claritin 10 mg p.o. daily, Colace 300 mg p.o. at bedtime, Crestor 10 mg at bedtime, DuoNeb inhaler, Eliquis 2.5 mg p.o. b.i.d., Fioricet 1 tablet p.o. q.12h. p.r.n., Flomax 0.4 mg at bedtime, metoprolol 25 mg p.o. b.i.d., Lyrica 75 mg p.o. daily, Nephro-Renaldo 1 tablet p.o. daily, Pepcid 20 mg p.o. daily, Percocet, Renvela, Robitussin, and Tylenol. REVIEW OF SYSTEMS: Significant for shortness of breath and back pain. All other review of systems are reviewed and are negative. PHYSICAL EXAMINATION: VITAL SIGNS: Blood pressure 104/47, pulse 76, respirations about 20, temperature 97.9, saturation 100%. Height 5 feet 6 inches and weight is 147 pounds, and BMI is 23.8. GENERAL: Mr. Conor Gonzales is a 67-year-old male, moderate-built, moderate-nourished, not in any distress. HEENT: Pupils normal, reactive to light and accommodation. Conjunctivae pink. Sclerae anicteric. Tongue is moist. NECK: Trachea is midline. LUNGS: Symmetric on both sides. Bilateral breath sounds present. Clear on auscultation. CVS: [place] at the fifth intercostal space, midclavicular line. S1 and S2 audible. No murmur, no gallop. The patient also has a midsternal scar present from the previous CABG. ABDOMEN: Normal in appearance. Soft, tympanic. No guarding. No rigidity. No hepatosplenomegaly. SALES DATA ANALYST: The patient is alert, awake, oriented x3. Sensory system is within normal limits. Motor system, left-sided weakness from the previous CVA. EXTREMITIES: No cyanosis, no clubbing. Trace edema in both lower extremities. LABORATORY DATA: His laboratory data include as follows: As of 08/16/2017; WBC 5.8, hemoglobin 9.7, hematocrit 28.9, platelets 228. PT 13.5, PTT 40. ABG; pH 7.42, pCO2 454, pO2 91, bicarb is 31.7, and saturation is 97.3. His laboratory data post dialysis; sodium 134, potassium is 3.9, chloride 92, CO2 of 34, BUN 17, creatinine 3.1, glucose is 140, calcium 8.9, magnesium 2, total bili 1.0, AST 57, ALT 71, alkaline phosphatase 309, proBNP 106,000, total protein 7.8, albumin is 3.6, and globulin 4.2. Influenza A and B antibodies negative. Procalcitonin as of 08/17/2017 is 6.02. As of 08/18/2017; sodium 134, potassium 4.8, chloride 93, CO2 31, BUN 34, creatinine 5.1, glucose 97, calcium 8.9. Total bili 0.7, AST 45, ALT 49, alkaline phosphatase 259. Total protein 7.2, albumin is 3.2. WBC 5, hemoglobin 9.3, hematocrit is 27.7, platelets 230. Other reports; chest x-ray as of 08/16/2017, on admission; cardiomegaly, pulmonary edema, and similar findings identified on the prior study. ASSESSMENT AND PLAN: In summary, Mr. Conor Gonzales is a 67-year-old very pleasant elderly [place] male with a history of longstanding hypertension, diabetes, coronary artery disease - status post CABG, CVA with left-sided weakness, who was admitted with shortness of breath, chest x-ray consistent with bilateral effusion. 1. End-stage renal disease. Continue hemodialysis three times a week - Sunday, , Sunday. We will try to ultrafiltrate as much as the patient can tolerate. The patient underwent hemodialysis today and had UF about net 2.5 liters. 2. Hypertension. 3. Anemia secondary to renal failure, rule out iron-deficiency anemia. We will add Epogen 10,000 units three times a week during hemodialysis. We will also add Nephrocaps 1 tablet p.o. daily, restrict fluids to 1 liter per day, continue phosphate binders - Renvela 800 mg p.o. t.i.d., continue Nephro-Renaldo 1 tablet p.o. daily. 4. CHF, will try to UF as much as pt can tolerate during hd, restrict fluids to 1 lit Thank you for allowing me to participate in your patient's care. The patient was seen and examined during dialysis this afternoon. Martin Ortiz MD [facility]
[2017-08-19] MEDS: Albuterol-Ipratrop 3 mg / 0.5 (3 ml) UD IH PRN ×3 (08:40→20:01)
--- NOTE | 2017-08-19 09:31 | CP.PCM.HP ---
History of Present Illness - History of Present Illness History of Present Illness: CC: progressive sob HPI: 67-year-old male with COPD, end-stage renal disease on hemodialysis was transferred to ER for shortness of breath. Chest x-ray done showed congestive changes and chronic infiltrate. Patient also complaining of slight cough but denies fever chills Present on Admission - Present on Admission Any Indicators Present on Admission: Yes History of DVT/PE: No History of Uncontrolled Diabetes: Yes Urinary Catheter: No Review of Systems - Constitutional Constitutional: Daytime Sleepiness, Lethargy - EENT Nose/Mouth/Throat: Halitosis - Cardiovascular Cardiovascular: Dyspnea on Exertion - Respiratory Respiratory: Cough, Dyspnea - Gastrointestinal Gastrointestinal: absent: Vomiting - Musculoskeletal Musculoskeletal: Muscle Weakness - Neurological Neurological: Sensory Deficit Past Patient History - Infectious Disease Hx of Infectious Diseases: None - Past Medical History & Family History Past Medical History?: Yes - Past Social History Smoking Status: Never Smoked - CARDIAC Hx Congestive Heart Failure: Yes Hx Hypertension: Yes Hx Peripheral Edema: Yes - PULMONARY Hx Asthma: Yes Hx Sleep Apnea: Yes - NEUROLOGICAL HX Cerebrovascular Accident: Yes (non ambulatory) - HEENT Hx HEENT Problems: Yes Hx Cataracts: Yes - RENAL Hx Chronic Kidney Disease: Yes Type of Dialysis Access: left AVS Date of Last Dialysis Treatment: 08/16/17 Hx Renal Failure: Yes - ENDOCRINE/METABOLIC Hx Diabetes Mellitus Type 2: Yes - HEMATOLOGICAL/ONCOLOGICAL Hx Anemia: Yes - INTEGUMENTARY Hx Dermatological Problems: Yes Other/Comment: healed sacral ulcer - MUSCULOSKELETAL/RHEUMATOLOGICAL Hx Musculoskeletal Disorders: Yes Hx Falls: Yes Hx Unsteady Gait: Yes Other/Comment: HX: MUSCLE WEAKNESS(GENERALIZED), Left sided body weakness due to CVA - GASTROINTESTINAL Hx Gastrointestinal Disorders: Yes Other/Comment: HX: DYSPHAGIA,UNSPECIFIED - GENITOURINARY/GYNECOLOGICAL Hx Genitourinary Disorders: No - PSYCHIATRIC Hx Depression: Yes ('MAJOR DEPRESSIVE DISORDER,SINGLE EPISODE,UNSPECIFIED") Hx Substance Use: No - SURGICAL HISTORY Hx Coronary Artery Bypass Graft: Yes - ANESTHESIA Hx Anesthesia: Yes Hx Anesthesia Reactions: No Hx Malignant Hyperthermia: No Has any member of the family had a problem w/ anesthesia?: No Meds Allergies/Adverse Reactions: Allergies Allergy/AdvReac Type Severity Reaction Status Date / Time iodine Allergy Intermediate RASH Verified 08/16/17 21:44 aspirin Allergy Verified 08/16/17 21:44 clopidogrel bisulfate Allergy UNKNOWN Verified 08/16/17 21:44 [From Plavix] Penicillins Allergy UNKNOWN Verified 08/16/17 21:44 IV DYE Allergy Uncoded 08/16/17 21:44 Physical Exam - Constitutional Appears: Chronically Ill - Head Exam Head Exam: NORMAL INSPECTION - Eye Exam Eye Exam: absent: Scleral icterus - ENT Exam ENT Exam: Mucous Membranes Moist - Neck Exam Neck exam: Positive for: Full Rom - Respiratory Exam Respiratory Exam: Decreased Breath Sounds, Rhonchi - Cardiovascular Exam Cardiovascular Exam: REGULAR RHYTHM - GI/Abdominal Exam GI & Abdominal Exam: Soft. absent: Tenderness - Neurological Exam Additional comments: +paraparesis left hemiparesis Results - Vital Signs Recent Vital Signs: Last Vital Signs Temp 97.9 F 08/19/17 06:00 Pulse 76 08/19/17 06:00 Resp 20 08/19/17 06:00 BP 151/55 H 08/19/17 06:00 Pulse Ox 100 08/19/17 06:00 - Labs Result Diagrams: 08/18/17 07:44 08/18/17 07:44 Labs: Laboratory Results - last 24 hr 08/18/17 12:01 POC Glucose (mg/dL) 119 H Assessment & Plan - Assessment and Plan (Free Text) Assessment: CHF r/o Pneumonia CAD T2dm Diabetic neuropathy Hx of multiple stroke Plan: Renal/Pulmonary consult ID consult Blood cultures HD Bronchodilators - Date & Time Date: 08/16/17 Time: 10:00
--- NOTE | 2017-08-19 09:44 | CP.PCM.PN ---
Subjective - Date & Time of Evaluation Date of Evaluation: 08/18/17 Time of Evaluation: 09:30 - Subjective Subjective: dialysis in progress hemodynamically stable less sob seen by pulmonary Objective - Vital Signs/Intake and Output Vital Signs (last 24 hours): Temp Pulse Resp BP Pulse Ox 97.9 F 76 20 151/55 H 100 08/19/17 06:00 08/19/17 06:00 08/19/17 06:00 08/19/17 06:00 08/19/17 06:00 Intake and Output: 08/19/17 08/19/17 06:59 18:59 Intake Total 400 Balance 400 - Medications Medications: Current Medications Acetaminophen (Tylenol 325mg Tab) 650 mg PO Q4 PRN PRN Reason: Temperature Acetaminophen/Butalbital/Caffeine (Fioricet) 1 tab PO Q12 PRN PRN Reason: Headache Last Admin: 08/19/17 00:45 Dose: 1 tab Albuterol/Ipratropium (Duoneb 3 Mg/0.5 Mg (3 Ml) Ud) 3 ml IH RQ6 PRN PRN Reason: Shortness of Breath Last Admin: 08/19/17 08:40 Dose: 3 ml Apixaban (Eliquis) 2.5 mg PO BID [facility] Last Admin: 08/18/17 17:34 Dose: 2.5 mg Docusate Sodium (Colace) 300 mg PO HS [facility] Last Admin: 08/18/17 21:09 Dose: Not Given Famotidine (Pepcid) 20 mg PO DAILY [facility] Last Admin: 08/18/17 10:00 Dose: Not Given Guaifenesin (Robitussin) 100 mg PO Q6 PRN PRN Reason: Cough Last Admin: 08/18/17 21:08 Dose: 100 mg Lactulose (Enulose) 20 gm PO HS PRN PRN Reason: Constipation Last Admin: 08/18/17 21:08 Dose: 20 gm Loratadine (Claritin) 10 mg PO DAILY PRN PRN Reason: Allergy symptoms Metoprolol Tartrate (Lopressor) 25 mg PO BID [facility] Last Admin: 08/18/17 17:35 Dose: 25 mg Oxycodone/Acetaminophen (Percocet 5/325 Mg Tab) 1 tab PO Q6H PRN PRN Reason: Pain, Mild (1-3) Stop: 08/20/17 09:19 Last Admin: 08/19/17 04:45 Dose: 1 tab Pregabalin (Lyrica) 75 mg PO DAILY [facility] Last Admin: 08/18/17 10:00 Dose: Not Given Rosuvastatin Calcium (Crestor) 10 mg PO HS [facility] Last Admin: 08/18/17 21:13 Dose: 10 mg Sevelamer Carbonate (Renvela) 800 mg PO TIDCC [facility] Last Admin: 08/19/17 08:12 Dose: 800 mg Tamsulosin HCl (Flomax) 0.4 mg PO HS [facility] Last Admin: 08/18/17 21:09 Dose: 0.4 mg Vitamin B Complex/Vit C/Folic Acid (Nephro-Renaldo) 1 tab PO DAILY [facility] Last Admin: 08/18/17 10:00 Dose: Not Given Zolpidem Tartrate (Ambien) 5 mg PO HS PRN PRN Reason: Insomnia Last Admin: 08/18/17 00:20 Dose: 5 mg - Labs Labs: 08/18/17 07:44 08/18/17 07:44 PT 13.5 SECONDS (9.7-12.2) H 08/16/17 22:10 INR 1.2 08/16/17 22:10 APTT 40 SECONDS (21-34) H 08/16/17 22:10 - Constitutional Appears: Non-toxic - Head Exam Head Exam: NORMAL INSPECTION - Eye Exam Eye Exam: absent: Scleral icterus - ENT Exam ENT Exam: Mucous Membranes Moist - Neck Exam Neck Exam: Full ROM - Respiratory Exam Respiratory Exam: Rhonchi - Cardiovascular Exam Cardiovascular Exam: REGULAR RHYTHM - GI/Abdominal Exam GI & Abdominal Exam: Soft. absent: Tenderness - Extremities Exam Extremities Exam: absent: Calf Tenderness, Pedal Edema - Neurological Exam Neurological Exam: Awake, Oriented x3 Assessment and Plan - Assessment and Plan (Free Text) Assessment: CHF CAD HTN T2dm Plan: Hemodialysis
--- NOTE | 2017-08-19 09:52 | CP.PCM.PN ---
Subjective - Date & Time of Evaluation Date of Evaluation: 08/19/17 Time of Evaluation: 09:49 - Subjective Subjective: Pt wants to sign out against medical advise NAD Objective - Vital Signs/Intake and Output Vital Signs (last 24 hours): Temp Pulse Resp BP Pulse Ox 97.9 F 76 20 151/55 H 100 08/19/17 06:00 08/19/17 06:00 08/19/17 06:00 08/19/17 06:00 08/19/17 06:00 Intake and Output: 08/19/17 08/19/17 06:59 18:59 Intake Total 400 Balance 400 - Medications Medications: Current Medications Acetaminophen (Tylenol 325mg Tab) 650 mg PO Q4 PRN PRN Reason: Temperature Acetaminophen/Butalbital/Caffeine (Fioricet) 1 tab PO Q12 PRN PRN Reason: Headache Last Admin: 08/19/17 00:45 Dose: 1 tab Albuterol/Ipratropium (Duoneb 3 Mg/0.5 Mg (3 Ml) Ud) 3 ml IH RQ6 PRN PRN Reason: Shortness of Breath Last Admin: 08/19/17 08:40 Dose: 3 ml Apixaban (Eliquis) 2.5 mg PO BID [facility] Last Admin: 08/18/17 17:34 Dose: 2.5 mg Docusate Sodium (Colace) 300 mg PO HS [facility] Last Admin: 08/18/17 21:09 Dose: Not Given Famotidine (Pepcid) 20 mg PO DAILY [facility] Last Admin: 08/18/17 10:00 Dose: Not Given Guaifenesin (Robitussin) 100 mg PO Q6 PRN PRN Reason: Cough Last Admin: 08/18/17 21:08 Dose: 100 mg Lactulose (Enulose) 20 gm PO HS PRN PRN Reason: Constipation Last Admin: 08/18/17 21:08 Dose: 20 gm Loratadine (Claritin) 10 mg PO DAILY PRN PRN Reason: Allergy symptoms Metoprolol Tartrate (Lopressor) 25 mg PO BID [facility] Last Admin: 08/18/17 17:35 Dose: 25 mg Oxycodone/Acetaminophen (Percocet 5/325 Mg Tab) 1 tab PO Q6H PRN PRN Reason: Pain, Mild (1-3) Stop: 08/20/17 09:19 Last Admin: 08/19/17 04:45 Dose: 1 tab Pregabalin (Lyrica) 75 mg PO DAILY [facility] Last Admin: 08/18/17 10:00 Dose: Not Given Rosuvastatin Calcium (Crestor) 10 mg PO HS [facility] Last Admin: 08/18/17 21:13 Dose: 10 mg Sevelamer Carbonate (Renvela) 800 mg PO TIDCC [facility] Last Admin: 08/19/17 08:12 Dose: 800 mg Tamsulosin HCl (Flomax) 0.4 mg PO HS [facility] Last Admin: 08/18/17 21:09 Dose: 0.4 mg Vitamin B Complex/Vit C/Folic Acid (Nephro-Renaldo) 1 tab PO DAILY [facility] Last Admin: 08/18/17 10:00 Dose: Not Given Zolpidem Tartrate (Ambien) 5 mg PO HS PRN PRN Reason: Insomnia Last Admin: 08/18/17 00:20 Dose: 5 mg - Labs Labs: 08/18/17 07:44 08/18/17 07:44 PT 13.5 SECONDS (9.7-12.2) H 08/16/17 22:10 INR 1.2 08/16/17 22:10 APTT 40 SECONDS (21-34) H 08/16/17 22:10 - Constitutional Appears: Non-toxic - Head Exam Head Exam: ATRAUMATIC - Eye Exam Eye Exam: absent: Scleral icterus - ENT Exam ENT Exam: Mucous Membranes Moist - Neck Exam Neck Exam: Full ROM - Respiratory Exam Respiratory Exam: Decreased Breath Sounds - Cardiovascular Exam Cardiovascular Exam: REGULAR RHYTHM - GI/Abdominal Exam GI & Abdominal Exam: Soft - Extremities Exam Extremities Exam: absent: Pedal Edema Assessment and Plan - Assessment and Plan (Free Text) Assessment: CHF CADHTN T2dm Diabetic neuropathy ESRD Plan: Pt signing out AMA
[2017-08-19] MEDS: Multivitamin Vitamin B Complex (Nephro-Vite) Tab PO SCH (09:57)
--- NOTE | 2017-08-19 13:33 | CP.PCM.PN ---
Subjective - Date & Time of Evaluation Date of Evaluation: 08/19/17 Time of Evaluation: 13:33 - Subjective Subjective: pt is seen and examined,follow up consult is dictated#[id number] for hd in am Objective - Vital Signs/Intake and Output Vital Signs (last 24 hours): Temp Pulse Resp BP Pulse Ox 97.8 F 65 20 149/64 100 08/19/17 09:00 08/19/17 09:00 08/19/17 09:00 08/19/17 09:54 08/19/17 09:00 Intake and Output: 08/19/17 08/19/17 06:59 18:59 Intake Total 400 Balance 400 - Medications Medications: Current Medications Acetaminophen (Tylenol 325mg Tab) 650 mg PO Q4 PRN PRN Reason: Temperature Last Admin: 08/19/17 12:29 Dose: 650 mg Acetaminophen/Butalbital/Caffeine (Fioricet) 1 tab PO Q12 PRN PRN Reason: Headache Last Admin: 08/19/17 00:45 Dose: 1 tab Albuterol/Ipratropium (Duoneb 3 Mg/0.5 Mg (3 Ml) Ud) 3 ml IH RQ6 PRN PRN Reason: Shortness of Breath Last Admin: 08/19/17 08:40 Dose: 3 ml Apixaban (Eliquis) 2.5 mg PO BID [facility] Last Admin: 08/19/17 09:58 Dose: 2.5 mg Docusate Sodium (Colace) 300 mg PO HS [facility] Last Admin: 08/18/17 21:09 Dose: Not Given Famotidine (Pepcid) 20 mg PO DAILY [facility] Last Admin: 08/19/17 09:55 Dose: 20 mg Guaifenesin (Robitussin) 100 mg PO Q6 PRN PRN Reason: Cough Last Admin: 08/18/17 21:08 Dose: 100 mg Lactulose (Enulose) 20 gm PO HS PRN PRN Reason: Constipation Last Admin: 08/18/17 21:08 Dose: 20 gm Loratadine (Claritin) 10 mg PO DAILY PRN PRN Reason: Allergy symptoms Metoprolol Tartrate (Lopressor) 25 mg PO BID [facility] Last Admin: 08/19/17 09:54 Dose: 25 mg Pregabalin (Lyrica) 75 mg PO DAILY [facility] Last Admin: 08/19/17 09:55 Dose: 75 mg Rosuvastatin Calcium (Crestor) 10 mg PO HS [facility] Last Admin: 08/18/17 21:13 Dose: 10 mg Sevelamer Carbonate (Renvela) 800 mg PO TIDCC [facility] Last Admin: 08/19/17 12:29 Dose: 800 mg Tamsulosin HCl (Flomax) 0.4 mg PO HS [facility] Last Admin: 08/18/17 21:09 Dose: 0.4 mg Vitamin B Complex/Vit C/Folic Acid (Nephro-Renaldo) 1 tab PO DAILY [facility] Last Admin: 08/19/17 09:57 Dose: 1 tab Zolpidem Tartrate (Ambien) 5 mg PO HS PRN PRN Reason: Insomnia Last Admin: 08/18/17 00:20 Dose: 5 mg - Labs Labs: 08/18/17 07:44 08/18/17 07:44 PT 13.5 SECONDS (9.7-12.2) H 08/16/17 22:10 INR 1.2 08/16/17 22:10 APTT 40 SECONDS (21-34) H 08/16/17 22:10
--- NOTE | 2017-08-19 16:01 | CP.PCM.CON ---
History of Present Illness - History of Present Illness History of Present Illness: [facility] in from [facility] for a complaint of SOB. He is a dialysis patient with treatments on Tuesdays, , and Saturdays; he had a treatment today and states they told me he has pneumonia. Denies fever, chills, nausea, vomiting, or chest pain. Being treated for pneumonia ID consulted CXR appears improved - Medical History PMH: Anemia, Asthma, CHF, CVA (affecting left side), Depression ('MAJOR DEPRESSIVE DISORDER,SINGLE EPISODE,UNSPECIFIED"), HTN, Peripheral Edema, End Stage Renal Disease, Chronic Kidney Disease, Sleep Apnea Surgical History: CABG, Endoscopy - [facility] (06/05/17) DIALYSIS ARTERIOVENOSTOM (10/07/14) EXCISION OF SIGMOID COLON, ENDO, DIAGN (09/26/16) INCIS W REM OF FORIEGN BODY OR DEV FROM SKIN & SUBCUT TISSUE (12/23/14) PERFORMANCE OF URINARY FILTRATION, MULTIPLE (04/11/17) Review of Systems - Review of Systems All systems: reviewed and no additional remarkable complaints except - Constitutional Constitutional: As Per HPI - EENT Eyes: absent: As Per HPI, Blind Spots, Blurred Vision, Change in Vision, Decreased Night Vision, Diplopia, Discharge, Dry Eye, Exophthalmos, Floaters, Irritation, Itchy Eyes, Loss of Peripheral Vision, Pain, Photophobia, Requires Corrective Lenses, Sees Flashes, Spots in Vision, Tunnel Vision, Other Visual Disturbances, Loss of Vision, Other Ears: absent: As Per HPI, Decreased Hearing, Ear Discharge, Ear Pain, Tinnitus, Abnormal Hearing, Disequilibrium, Dizziness, Other Nose/Mouth/Throat: absent: As Per HPI, Epistaxis, Nasal Congestion, Nasal Discharge, Nasal Obstruction, Nasal Trauma, Nose Pain, Post Nasal Drip, Sinus Pain, Sinus Pressure, Bleeding Gums, Change in Voice, Dental Pain, Dry Mouth, Dysphagia, Halitosis, Hoarsness, Lip Swelling, Mouth Lesions, Mouth Pain, Odynophagia, Sore Throat, Throat Swelling, Tongue Swelling, Facial Pain, Neck Pain, Neck Mass, Other - Cardiovascular Cardiovascular: As Per HPI - Respiratory Respiratory: As Per HPI, Cough, Dyspnea, Snoring. absent: Hemoptysis - Gastrointestinal Gastrointestinal: absent: As Per HPI, Abdominal Pain, Belching, Bloating, Change in Bowel Habits, Change in Stool Character, Coffee Ground Emesis, Constipation, Cramping, Diarrhea, Dyspepsia, Dysphagia, Early Satiety, Excessive Flatus, Fecal Incontinence, Heartburn, Hematemesis, Hematochezia, Loose Stools, Melena, Nausea, Odynophagia, Temesmus, Vomiting, Other - Genitourinary Genitourinary: absent: As Per HPI, Change in Urinary Stream, Difficulty Urinating, Dysuria, Flank Pain, Hematuria, Pyuria, Nocturia, Urinary Incontinence, Urinary Frequency, Urinary Hesitance, Urinary Urgency, Voiding Freq/Small Amts, Freq UTI, Hx Renal/Bladder Calculi, Hx /Renal Surgery, Bladder Distension, Other - Musculoskeletal Musculoskeletal: absent: As Per HPI, Abnormal Gait, Arthralgias, Atrophy, Back Pain, Deformity, Joint Swelling, Limited Range of Motion, Loss of Height, Muscle Cramps, Muscle Weakness, Myalgias, Neck Pain, Numbness, Radiating Pain into Limb, Stiffness, Tingling, Other - Integumentary Integumentary: As Per HPI - Neurological Neurological: As Per HPI - Psychiatric Psychiatric: As Per HPI - Endocrine Endocrine: absent: As Per HPI, Change in Body Appearance, Change in Libido, Cold Intolorance, Deepening of Voice, Excessive Sweating, Fatigue, Flushing, Heat Intolorance, Increase in Ring/Shoe/Hat Size, Palpitations, Polydipsia, Polyphagia, Polyuria, Other - Hematologic/Lymphatic Hematologic: absent: As Per HPI, Easy Bleeding, Easy Bruising, Lymphadenopathy, Other Past Patient History - Infectious Disease Hx of Infectious Diseases: None - Past Medical History & Family History Past Medical History?: Yes - Past Social History Smoking Status: Never Smoked - CARDIAC Hx Congestive Heart Failure: Yes Hx Hypertension: Yes Hx Peripheral Edema: Yes - PULMONARY Hx Asthma: Yes Hx Sleep Apnea: Yes - NEUROLOGICAL HX Cerebrovascular Accident: Yes (non ambulatory) - HEENT Hx HEENT Problems: Yes Hx Cataracts: Yes - RENAL Hx Chronic Kidney Disease: Yes Type of Dialysis Access: left AVS Date of Last Dialysis Treatment: 08/16/17 Hx Renal Failure: Yes - ENDOCRINE/METABOLIC Hx Diabetes Mellitus Type 2: Yes - HEMATOLOGICAL/ONCOLOGICAL Hx Anemia: Yes - INTEGUMENTARY Hx Dermatological Problems: Yes Other/Comment: healed sacral ulcer - MUSCULOSKELETAL/RHEUMATOLOGICAL Hx Musculoskeletal Disorders: Yes Hx Falls: Yes Hx Unsteady Gait: Yes Other/Comment: HX: MUSCLE WEAKNESS(GENERALIZED), Left sided body weakness due to CVA - GASTROINTESTINAL Hx Gastrointestinal Disorders: Yes Other/Comment: HX: DYSPHAGIA,UNSPECIFIED - GENITOURINARY/GYNECOLOGICAL Hx Genitourinary Disorders: No - PSYCHIATRIC Hx Depression: Yes ('MAJOR DEPRESSIVE DISORDER,SINGLE EPISODE,UNSPECIFIED") Hx Substance Use: No - SURGICAL HISTORY Hx Coronary Artery Bypass Graft: Yes - ANESTHESIA Hx Anesthesia: Yes Hx Anesthesia Reactions: No Hx Malignant Hyperthermia: No Has any member of the family had a problem w/ anesthesia?: No Meds Allergies/Adverse Reactions: Allergies Allergy/AdvReac Type Severity Reaction Status Date / Time iodine Allergy Intermediate RASH Verified 08/16/17 21:44 aspirin Allergy Verified 08/16/17 21:44 clopidogrel bisulfate Allergy UNKNOWN Verified 08/16/17 21:44 [From Plavix] Penicillins Allergy UNKNOWN Verified 08/16/17 21:44 IV DYE Allergy Uncoded 08/16/17 21:44 - Medications Medications: Current Medications Acetaminophen (Tylenol 325mg Tab) 650 mg PO Q4 PRN PRN Reason: Temperature Last Admin: 08/19/17 12:29 Dose: 650 mg Acetaminophen/Butalbital/Caffeine (Fioricet) 1 tab PO Q12 PRN PRN Reason: Headache Last Admin: 08/19/17 00:45 Dose: 1 tab Albuterol/Ipratropium (Duoneb 3 Mg/0.5 Mg (3 Ml) Ud) 3 ml IH RQ6 PRN PRN Reason: Shortness of Breath Last Admin: 08/19/17 14:22 Dose: 3 ml Apixaban (Eliquis) 2.5 mg PO BID [facility] Last Admin: 08/19/17 09:58 Dose: 2.5 mg Docusate Sodium (Colace) 300 mg PO HS [facility] Last Admin: 08/18/17 21:09 Dose: Not Given Famotidine (Pepcid) 20 mg PO DAILY [facility] Last Admin: 08/19/17 09:55 Dose: 20 mg Guaifenesin (Robitussin) 100 mg PO Q6 PRN PRN Reason: Cough Last Admin: 08/18/17 21:08 Dose: 100 mg Lactulose (Enulose) 20 gm PO HS PRN PRN Reason: Constipation Last Admin: 08/18/17 21:08 Dose: 20 gm Loratadine (Claritin) 10 mg PO DAILY PRN PRN Reason: Allergy symptoms Metoprolol Tartrate (Lopressor) 25 mg PO BID [facility] Last Admin: 08/19/17 09:54 Dose: 25 mg Pregabalin (Lyrica) 75 mg PO DAILY [facility] Last Admin: 08/19/17 09:55 Dose: 75 mg Rosuvastatin Calcium (Crestor) 10 mg PO HS [facility] Last Admin: 08/18/17 21:13 Dose: 10 mg Sevelamer Carbonate (Renvela) 800 mg PO TIDCC [facility] Last Admin: 08/19/17 12:29 Dose: 800 mg Tamsulosin HCl (Flomax) 0.4 mg PO HS [facility] Last Admin: 08/18/17 21:09 Dose: 0.4 mg Vitamin B Complex/Vit C/Folic Acid (Nephro-Renaldo) 1 tab PO DAILY [facility] Last Admin: 08/19/17 09:57 Dose: 1 tab Zolpidem Tartrate (Ambien) 5 mg PO PRN PRN Reason: Insomnia Last Admin: 08/18/17 00:20 Dose: 5 mg Physical Exam - Constitutional Appears: Non-toxic, Cachectic, Chronically Ill - Head Exam Head Exam: NORMOCEPHALIC - Eye Exam Eye Exam: PERRL. absent: Scleral icterus - ENT Exam ENT Exam: Mucous Membranes Dry, Normal External Ear Exam, Normal Oropharynx - Neck Exam Neck exam: Negative for: Lymphadenopathy - Respiratory Exam Respiratory Exam: Decreased Breath Sounds, Rhonchi - Cardiovascular Exam Cardiovascular Exam: REGULAR RHYTHM, +S1, +S2 - GI/Abdominal Exam GI & Abdominal Exam: Diminished Bowel Sounds, Distended, Soft. absent: Rebound , Rigid, Tenderness - Rectal Exam Rectal Exam: Deferred - Exam Exam: NORMAL INSPECTION - Extremities Exam Extremities exam: Positive for: pedal pulses present. Negative for: calf tenderness, pedal edema, tenderness - Back Exam Back exam: absent: CVA tenderness (L), CVA tenderness (R) - Neurological Exam Neurological exam: Alert, CN II-XII Intact, Motor Sensory Deficit, Oriented x3 - Psychiatric Exam Psychiatric exam: Depressed - Skin Skin Exam: Dry Results - Vital Signs Recent Vital Signs: Last Vital Signs Temp 97.8 F 08/19/17 09:00 Pulse 65 08/19/17 09:00 Resp 20 01/28/18 09:00 BP 149/64 08/19/17 09:54 Pulse Ox 100 08/19/17 09:00 - Labs Result Diagrams: 08/18/17 07:44 08/18/17 07:44 Labs: Laboratory Results - last 24 hr 08/18/17 12:01 POC Glucose (mg/dL) 119 H Assessment & Plan (1) Chronic congestive heart failure Status: Acute (2) Dyspnea Status: Acute (3) ESRD (end stage renal disease) on dialysis Status: Acute (4) Pneumonia Status: Acute - Assessment and Plan (Free Text) Assessment: CHF/ ESRD/ r/o sepsis await cultures cont IV antibiotics asper Dr Frausto
[2017-08-19] MEDS ORDERED: Vancomycin 1 gm/NS 200 ml 1 GM/200 ML BAG IVPB ONE (17:00)
[2017-08-20] MEDS: Apap-Butalbital-Caffeine 325-50-40mg Tab PO PRN (02:25)
--- NOTE | 2017-08-20 08:23 | PN ---
DATE:08/19/2017 LOCATION: Room 359, bed B. REQUESTING PHYSICIAN: Theodore Lucas MD REASON FOR RENAL CONSULTATION: End-stage renal disease, continuation of the hemodialysis. HISTORY OF PRESENT ILLNESS: Mr. Gonzales is a 67-year-old obese [place] male with a past medical history significant for longstanding hypertension, diabetes, hyperlipidemia, CVA with left-sided weakness, coronary artery disease, status post CABG, mostly bedridden, was admitted from the intermediate with chief complaints of shortness of breath and back pain. The patient underwent hemodialysis yesterday, had ultrafiltration about 2.5 liters. The patient is not in acute distress, resting comfortably, on nasal cannula. No chest pain, no palpitation. No fever. No cough. No edema of the legs. PHYSICAL EXAMINATION: VITAL SIGNS: Blood pressure 149/64, pulse 65, respirations 20, temperature 97.8, saturation 100%. Height 5 feet 6 inches and weight is 147 pounds. GENERAL: Mr. Gonzales is a 67-year-old male, moderately built, moderately nourished, not in distress. HEENT: Pupils normal and reactive to light and accommodation. Conjunctivae pink. Sclerae are anicteric. Tongue is moist and trachea is midline. LUNGS: Symmetric on both sides. Bilateral breath sounds present. Occasional basal crackles present. CARDIOVASCULAR: Dixie at the fifth intercostal space in midclavicular line. S1,S2 audible . No murmur, no gallop. The patient has midsternal scar present from the previous CABG. ABDOMEN: Slightly protuberant, soft, tympanic. No guarding. No hepatosplenomegaly. CENTRAL NERVOUS SYSTEM: The patient is alert, awake, oriented x 3. Sensory and motor system is grossly within normal limits except left-sided weakness from the previous CVA. EXTREMITIES: No cyanosis, no clubbing, no edema. CURRENT MEDICATIONS: Include as follows, Ambien 5 mg at bedtime, Claritin 10 mg p.o. daily, Colace 300 mg p.o. at bedtime, Crestor 10 mg at bedtime, DuoNeb inhaler 3 mL q. 6 hours, Eliquis 2.5 mg p.o. b.i.d., lactulose 20 g p.o. at bedtime, Fioricet 1 tablet p.o. q.12 hours, Flomax 0.4 mg p.o. at bedtime, Lopressor 25 mg p.o. b.i.d., Lyrica 75 mg p.o. daily, Nephro-Renaldo 1 tablet daily, Pepcid 20 mg p.o. daily, Renvela 800 mg p.o. t.i.d., Robitussin 100 mg p.o. q. 6 hours, Tylenol and vancomycin 500 mg 3 times a week, Sunday, Sunday, Sunday. LABORATORY DATA: Include as follows, as of 08/18/2017, WBC 5, hemoglobin 9.3, hematocrit is 27.7, platelets 230. Sodium 134, potassium 4.8, chloride 93, CO2 of 31, BUN 54, creatinine 5.1, glucose 97, calcium 8.9. Total bili 0.5, AST 45, ALT 49, alkaline phos is 259, total protein 7.2, albumin is 3.2. As of 08/16/2017, proBNP 106,000. His blood culture as of 08/16/2017 x2 negative, day two. ASSESSMENT: In summary, Mr. Conor Gonzales is a 67-year-old male with a history of hypertension, diabetes, cerebrovascular accident with left-sided weakness, coronary artery disease status post coronary artery bypass grafting, end-stage renal disease, on hemodialysis 3 times a week Sunday, , Sunday, was admitted with low back pain and shortness of breath. The patient was found to have elevated proBNP and also a chest x-ray consistent with congestive heart failure. 1. End-stage renal disease. Continue hemodialysis 3 times a week, Sunday, , Sunday. 2. Hypertension. Blood pressure is stable. 3. Congestive heart failure. 4. Coronary artery disease. PLAN: We will try to give an extra hemodialysis in a.m. if patient agrees. Continue his current medications, metoprolol, Flomax, lactulose, Eliquis, DuoNeb inhaler, Crestor, Colace, Ambien and famotidine and also vancomycin. We will follow with you. Thank you for allowing me to participate in your patient's care. Vasudeva Jonnalagadda, MD [facility] # [id number] [place]
[2017-08-20] MEDS: Multivitamin Vitamin B Complex (Nephro-Vite) Tab PO SCH (10:01)
[2017-08-20] MEDS: Vancomycin 500mg/D5W 100 ml 500 MG/100 ML BAG IVPB SCH ×2 (10:01→14:07)
--- NOTE | 2017-08-20 12:33 | CP.PCM.PN ---
Subjective - Date & Time of Evaluation Date of Evaluation: 08/20/17 Time of Evaluation: 12:32 - Subjective Subjective: pt is seen and examined during hd, uf goal is 2.-2.5 lit follow up consult is dictated #[id number] Objective - Vital Signs/Intake and Output Vital Signs (last 24 hours): Temp Pulse Resp BP Pulse Ox 97.4 F L 68 18 110/49 L 99 08/20/17 10:10 08/20/17 10:10 08/20/17 10:10 08/20/17 12:17 08/20/17 10:10 Intake and Output: 08/20/17 08/20/17 06:59 18:59 Intake Total 650 Balance 650 - Medications Medications: Current Medications Acetaminophen (Tylenol 325mg Tab) 650 mg PO Q4 PRN PRN Reason: Temperature Last Admin: 08/20/17 11:09 Dose: 650 mg Acetaminophen/Butalbital/Caffeine (Fioricet) 1 tab PO Q12 PRN PRN Reason: Headache Last Admin: 08/20/17 02:25 Dose: 1 tab Albuterol/Ipratropium (Duoneb 3 Mg/0.5 Mg (3 Ml) Ud) 3 ml IH RQ6 PRN PRN Reason: Shortness of Breath Last Admin: 08/19/17 20:01 Dose: 3 ml Apixaban (Eliquis) 2.5 mg PO BID [facility] Last Admin: 08/20/17 10:00 Dose: Not Given Docusate Sodium (Colace) 300 mg PO HS [facility] Last Admin: 08/19/17 21:09 Dose: 300 mg Famotidine (Pepcid) 20 mg PO DAILY [facility] Last Admin: 08/20/17 10:01 Dose: Not Given Guaifenesin (Robitussin) 100 mg PO Q6 PRN PRN Reason: Cough Last Admin: 08/18/17 21:08 Dose: 100 mg Vancomycin HCl/Dextrose (Vancocin) 500 mg in 100 mls @ 100 mls/hr [place] [facility] Stop: 08/25/17 09:01 Last Admin: 08/20/17 10:01 Dose: Not Given Lactulose (Enulose) 20 gm PO HS PRN PRN Reason: Constipation Last Admin: 08/19/17 21:09 Dose: 20 gm Loratadine (Claritin) 10 mg PO DAILY PRN PRN Reason: Allergy symptoms Metoprolol Tartrate (Lopressor) 25 mg PO BID [facility] Last Admin: 08/20/17 10:00 Dose: Not Given Pregabalin (Lyrica) 75 mg PO DAILY [facility] Last Admin: 08/20/17 10:01 Dose: Not Given Rosuvastatin Calcium (Crestor) 10 mg PO HS [facility] Last Admin: 08/19/17 21:09 Dose: 10 mg Sevelamer Carbonate (Renvela) 800 mg PO TIDCC [facility] Last Admin: 08/20/17 08:35 Dose: 800 mg Tamsulosin HCl (Flomax) 0.4 mg PO HS [facility] Last Admin: 08/19/17 21:11 Dose: 0.4 mg Vitamin B Complex/Vit C/Folic Acid (Nephro-Renaldo) 1 tab PO DAILY [facility] Last Admin: 08/20/17 10:01 Dose: Not Given Zolpidem Tartrate (Ambien) 5 mg PO HS PRN PRN Reason: Insomnia Last Admin: 08/18/17 00:20 Dose: 5 mg - Labs Labs: 08/18/17 07:44 08/18/17 07:44 PT 13.5 SECONDS (9.7-12.2) H 08/16/17 22:10 INR 1.2 08/16/17 22:10 APTT 40 SECONDS (21-34) H 08/16/17 22:10
--- NOTE | 2017-08-20 12:40 | CP.PCM.PN ---
Subjective - Date & Time of Evaluation Date of Evaluation: 08/20/17 Time of Evaluation: 09:00 - Subjective Subjective: started IV Vanco procalcitonin still high await wound care recc for sacral wound Objective - Vital Signs/Intake and Output Vital Signs (last 24 hours): Temp Pulse Resp BP Pulse Ox 97.4 F L 68 18 110/49 L 99 08/20/17 10:10 08/20/17 10:10 08/20/17 10:10 08/20/17 12:17 08/20/17 10:10 Intake and Output: 08/20/17 08/20/17 06:59 18:59 Intake Total 650 Balance 650 - Medications Medications: Current Medications Acetaminophen (Tylenol 325mg Tab) 650 mg PO Q4 PRN PRN Reason: Temperature Last Admin: 08/20/17 11:09 Dose: 650 mg Acetaminophen/Butalbital/Caffeine (Fioricet) 1 tab PO Q12 PRN PRN Reason: Headache Last Admin: 08/20/17 02:25 Dose: 1 tab Albuterol/Ipratropium (Duoneb 3 Mg/0.5 Mg (3 Ml) Ud) 3 ml IH RQ6 PRN PRN Reason: Shortness of Breath Last Admin: 08/19/17 20:01 Dose: 3 ml Apixaban (Eliquis) 2.5 mg PO BID [facility] Last Admin: 08/20/17 10:00 Dose: Not Given Docusate Sodium (Colace) 300 mg PO HS [facility] Last Admin: 08/19/17 21:09 Dose: 300 mg Famotidine (Pepcid) 20 mg PO DAILY [facility] Last Admin: 08/20/17 10:01 Dose: Not Given Guaifenesin (Robitussin) 100 mg PO Q6 PRN PRN Reason: Cough Last Admin: 08/18/17 21:08 Dose: 100 mg Vancomycin HCl/Dextrose (Vancocin) 500 mg in 100 mls @ 100 mls/hr IVPB [facility] Stop: 08/25/17 09:01 Last Admin: 08/20/17 10:01 Dose: Not Given Lactulose (Enulose) 20 gm PO HS PRN PRN Reason: Constipation Last Admin: 08/19/17 21:09 Dose: 20 gm Loratadine (Claritin) 10 mg PO DAILY PRN PRN Reason: Allergy symptoms Metoprolol Tartrate (Lopressor) 25 mg PO BID [facility] Last Admin: 08/20/17 10:00 Dose: Not Given Pregabalin (Lyrica) 75 mg PO DAILY [facility] Last Admin: 08/20/17 10:01 Dose: Not Given Rosuvastatin Calcium (Crestor) 10 mg PO HS [facility] Last Admin: 08/19/17 21:09 Dose: 10 mg Sevelamer Carbonate (Renvela) 800 mg PO TIDCC [facility] Last Admin: 08/20/17 08:35 Dose: 800 mg Tamsulosin HCl (Flomax) 0.4 mg PO HS [facility] Last Admin: 08/19/17 21:11 Dose: 0.4 mg Vitamin B Complex/Vit C/Folic Acid (Nephro-Renaldo) 1 tab PO DAILY [facility] Last Admin: 08/20/17 10:01 Dose: Not Given Zolpidem Tartrate (Ambien) 5 mg PO HS PRN PRN Reason: Insomnia Last Admin: 08/18/17 00:20 Dose: 5 mg - Labs Labs: 08/18/17 07:44 08/18/17 07:44 PT 13.5 SECONDS (9.7-12.2) H 08/16/17 22:10 INR 1.2 08/16/17 22:10 APTT 40 SECONDS (21-34) H 08/16/17 22:10 - Constitutional Appears: Non-toxic, Chronically Ill - Head Exam Head Exam: NORMOCEPHALIC - Eye Exam Eye Exam: PERRL - ENT Exam ENT Exam: Mucous Membranes Dry - Neck Exam Neck Exam: absent: Lymphadenopathy - Respiratory Exam Respiratory Exam: Decreased Breath Sounds - Cardiovascular Exam Cardiovascular Exam: REGULAR RHYTHM - GI/Abdominal Exam GI & Abdominal Exam: Distended, Soft - Rectal Exam Rectal Exam: Deferred - Exam Exam: NORMAL INSPECTION - Extremities Exam Extremities Exam: absent: Pedal Edema - Back Exam Back Exam: absent: CVA tenderness (L), CVA tenderness (R) - Neurological Exam Neurological Exam: Alert, Awake, Oriented x3 Assessment and Plan (1) Chronic congestive heart failure Status: Acute (2) Dyspnea Status: Acute (3) ESRD (end stage renal disease) on dialysis Status: Acute (4) Pneumonia Status: Acute
--- NOTE | 2017-08-20 17:05 | PCM.HF ---
Heart Failure Core Measure Beta-Ozzy Prescribed: Metoprolol Succinate AnticoagulationTherapy for Atrial Fibrillation/Atrialflutter: Yes
--- NOTE | 2017-08-20 17:06 | CP.PCM.PN ---
Objective - Vital Signs/Intake and Output Vital Signs (last 24 hours): Temp Pulse Resp BP Pulse Ox 97.2 F L 76 18 97/40 L 98 08/20/17 13:10 08/20/17 13:10 08/20/17 13:10 08/20/17 13:10 08/20/17 13:10 Intake and Output: 08/20/17 08/20/17 06:59 18:59 Intake Total 650 500 Balance 650 500 - Medications Medications: Current Medications Acetaminophen (Tylenol 325mg Tab) 650 mg PO Q4 PRN PRN Reason: Temperature Last Admin: 08/20/17 11:09 Dose: 650 mg Acetaminophen/Butalbital/Caffeine (Fioricet) 1 tab PO Q12 PRN PRN Reason: Headache Last Admin: 08/20/17 02:25 Dose: 1 tab Albuterol/Ipratropium (Duoneb 3 Mg/0.5 Mg (3 Ml) Ud) 3 ml IH RQ6 PRN PRN Reason: Shortness of Breath Last Admin: 08/19/17 20:01 Dose: 3 ml Apixaban (Eliquis) 2.5 mg PO BID [facility] Last Admin: 08/20/17 10:00 Dose: Not Given Docusate Sodium (Colace) 300 mg PO HS [facility] Last Admin: 08/19/17 21:09 Dose: 300 mg Famotidine (Pepcid) 20 mg PO DAILY [facility] Last Admin: 08/20/17 10:01 Dose: Not Given Guaifenesin (Robitussin) 100 mg PO Q6 PRN PRN Reason: Cough Last Admin: 08/18/17 21:08 Dose: 100 mg Vancomycin HCl/Dextrose (Vancocin) 500 mg in 100 mls @ 100 mls/hr IVPB [facility] [place] Stop: 08/25/17 09:01 Last Admin: 08/20/17 14:07 Dose: 100 mls/hr Lactulose (Enulose) 20 gm PO HS PRN PRN Reason: Constipation Last Admin: 08/19/17 21:09 Dose: 20 gm Loratadine (Claritin) 10 mg PO DAILY PRN PRN Reason: Allergy symptoms Metoprolol Tartrate (Lopressor) 25 mg PO BID [facility] [place] Last Admin: 08/20/17 10:00 Dose: Not Given Pregabalin (Lyrica) 75 mg PO DAILY [facility] [place] Last Admin: 08/20/17 10:01 Dose: Not Given Rosuvastatin Calcium (Crestor) 10 mg PO HS [facility] [place] Last Admin: 08/19/17 21:09 Dose: 10 mg Sevelamer Carbonate (Renvela) 800 mg PO TIDCC [facility] [place] Last Admin: 08/20/17 14:04 Dose: 800 mg Tamsulosin HCl (Flomax) 0.4 mg PO HS [facility] [place] Last Admin: 08/19/17 21:11 Dose: 0.4 mg Vitamin B Complex/Vit C/Folic Acid (Nephro-Renaldo) 1 tab PO DAILY [facility] [place] Last Admin: 08/20/17 10:01 Dose: Not Given Zolpidem Tartrate (Ambien) 5 mg PO HS PRN PRN Reason: Insomnia Last Admin: 08/18/17 00:20 Dose: 5 mg - Labs Labs: 08/18/17 07:44 08/18/17 07:44 PT 13.5 SECONDS (9.7-12.2) H 08/16/17 22:10 INR 1.2 08/16/17 22:10 APTT 40 SECONDS (21-34) H 08/16/17 22:10 Assessment and Plan - Assessment and Plan (Free Text) Assessment: Patient is seen and examined after HD today. Awake, alert, no sob or chest pains.
[2017-08-20 17:10] VITALS: BP 120/62; PULSE 73; RESP 20; TEMP 98.1; O2SAT 99
[2017-08-20] MEDS: Albuterol-Ipratrop 3 mg / 0.5 (3 ml) UD IH PRN (18:00)
--- NOTE | 2017-08-21 06:24 | PN ---
DATE: 08/20/2017 FOLLOWUP RENAL CONSULTATION LOCATION: Room 359, bed B. REQUESTED BY: Theodore Lucas MD REASON FOR FOLLOWUP: Shortness of breath, end-stage renal disease, for continuation of hemodialysis. SUBJECTIVE: Mr. Gonzales is a 67-year-old obese Iranian male with a past medical history significant for longstanding hypertension, diabetes, coronary artery disease - status post CABG, CVA with left-sided weakness, end-stage renal disease, mostly bedridden, who was admitted from the [facility] with chief complaints of shortness of breath and back pain after completion of the dialysis on last week. The patient is still complaining of mild shortness of breath. No chest pain, no palpitation, no fever, no cough, no abdominal pain. No nausea, vomiting, or diarrhea. The patient was seen and examined during hemodialysis. The patient is receiving extra hemodialysis for CHF. OBJECTIVE: VITAL SIGNS: Blood pressure 97/40, pulse 76, respirations 18, temperature 97.2, saturation 98%. Height 5 feet 6 inches, weight is 147 pounds. GENERAL: Mr. Conor Gonzales is a 67-year-old Iranian male, moderately-built, moderate-nourished, not in distress. HEENT: Pupils normal, reactive to light and accommodation. Conjunctiva pink. Sclerae are anicteric. Tongue is moist. NECK: Trachea is midline. LUNGS: Symmetric on both sides. Bilateral breath sounds present. Occasional basal crackles present. CVS: [place] at the fifth intercostal space, midclavicular line. S1 and S2 audible. No murmur or gallop. ABDOMEN: Normal in appearance, soft, tympanic. No guarding. No rigidity. No hepatosplenomegaly. TIMBER SPRINKLER: The patient is alert, awake, slightly drowsy, following commands appropriately. EXTREMITIES: No cyanosis, no clubbing, no edema. CURRENT MEDICATIONS: Include as follows. Ambien 10 mg at bedtime, Nephro-Renaldo 1 tablet daily, Flomax 0.4 mg, Renvela 18 mg p.o. t.i.d., Crestor 20 mg at bedtime, Lyrica 75 mg p.o. daily, metoprolol 25 mg p.o. b.i.d., Claritin, lactulose, Pepcid, Colace, Eliquis, ProSource, DuoNeb inhaler, Fioricet, and vancomycin 500 mg three times a week. LABORATORY DATA: No new labs are available for today. His Accu-Cheks was 119 on 08/18/2017, and on 08/20/2017 of 115. Procalcitonin is 6.02 and 5.07. ASSESSMENT: In summary, Mr. Conor Gonzales is a 67-year-old male with hypertension, diabetes, cerebrovascular accident with left-sided weakness, and coronary artery disease - status post coronary artery bypass graft, end-stage renal disease, mostly bedridden, who was admitted with shortness of breath and back pain, post dialysis on . Chest x-ray consistent with bilateral pleural effusion. 1. End-stage renal disease. 2. Congestive heart failure. 3. Hypertension. 4. Coronary artery disease - status post coronary artery bypass graft. PLAN: Discussed with the patient regarding possible extra hemodialysis. The patient agreed for hemodialysis. The patient is being dialyzed. UF goal is about 2-2.5 liters as tolerated. The patient may be discharged for hemodialysis today. The patient is hemodynamically stable. We will follow with you. Thank you for allowing me to participate in your patient's care. Martin Ortiz MD
--- NOTE | 2017-08-22 06:41 | CARD ---
APPROVED REPORT EKG Measurement Heart [id number] <Conclusion> Sinus rhythm with 1st degree AV block Possible Left atrial enlargement Right bundle branch block, plus right ventricular hypertrophy Abnormal ECG
== END 2017-08-20 22:35 | DRG 291 ==
LOC: C.ER 21:34 → C.9E 23:50 → C.6T 08-17 15:22 → C.9E 08-17 15:45 → C.3T 08-17 15:50
PROVIDERS: ADMIT Internal Medicine; ATTEND Internal Medicine
PROC: 5A1D70Z Performance of Urinary Filtration, Intermittent, Less than 6 Hours Per Day (ICD-10-PCS; 2017-08-16)
PROC: 5A1D70Z Performance of Urinary Filtration, Intermittent, Less than 6 Hours Per Day (ICD-10-PCS; principal; 2017-08-20)
DX: I13.2 Hypertensive heart and chronic kidney disease with heart failure and with stage 5 chronic kidney disease, or end stage renal disease (principal); J18.9 Pneumonia, unspecified organism; E11.22 Type 2 diabetes mellitus with diabetic chronic kidney disease; E11.40 Type 2 diabetes mellitus with diabetic neuropathy, unspecified; N18.6 End stage renal disease; J44.0 Chronic obstructive pulmonary disease with (acute) lower respiratory infection; I69.352 Hemiplegia and hemiparesis following cerebral infarction affecting left dominant side; I50.9 Heart failure, unspecified; E78.5 Hyperlipidemia, unspecified; G47.30 Sleep apnea, unspecified; I25.10 Atherosclerotic heart disease of native coronary artery without angina pectoris; E66.9 Obesity, unspecified; Z99.2 Dependence on renal dialysis; Z95.1 Presence of aortocoronary bypass graft; Z87.891 Personal history of nicotine dependence; D63.1 Anemia in chronic kidney disease; Z68.23 Body mass index [BMI] 23.0-23.9, adult

== ENCOUNTER 2017-09-25 21:05 | Emergency (ER) | payer MEDICARE, MEDICAID ==
[2017-09-25 21:06] VITALS: BMI 29.5
[2017-09-25 21:16] VITALS: TEMP 98.3
[2017-09-25] MEDS ORDERED: Absorbable Gelatin Sponge Size 12-7 ONE ×2 (21:32)
[2017-09-25] MEDS ORDERED: Absorbable Gelatin Sponge Size 12-7 TOP STA (21:45)
--- NOTE | 2017-09-25 21:58 | C.PDOC ---
History Of Present Illness 67 year old male with a Hx of diabetes, CVA, HTN with dialysis on Tuesdays, , and Saturdays presents today with a complaint of bleeding from his dialysis shunt after having dialysis today. Patient arrived to the ER with a pressure dressing on the shunt. Denies other complaints at this time. Time Seen by Provider: 09/25/17 21:22 Chief Complaint (Nursing): Abnormal Skin Integrity History Per: Patient History/Exam Limitations: no limitations Onset/Duration Of Symptoms: Hrs Current Symptoms Are (Timing): Still Present Location Of Injury: Left: Arm Quality Of Symptoms: Other (Bleeding) Past Medical History Reviewed: Historical Data, Nursing Documentation, Vital Signs Vital Signs: Last Vital Signs Temp 98.3 F 09/25/17 21:09 Pulse 81 09/25/17 22:27 Resp 20 09/25/17 22:27 BP 150/47 L 09/25/17 22:27 Pulse Ox 97 09/25/17 23:13 - Medical History PMH: Anemia, Asthma, CHF, CVA (affecting left side), Depression ('MAJOR DEPRESSIVE DISORDER,SINGLE EPISODE,UNSPECIFIED"), HTN, Peripheral Edema, End Stage Renal Disease, Chronic Kidney Disease, Sleep Apnea Surgical History: CABG, Endoscopy - [facility] (08/16/17) DIALYSIS ARTERIOVENOSTOM (10/07/14) EXCISION OF SIGMOID COLON, ENDO, DIAGN (09/26/16) INCIS W REM OF FORIEGN BODY OR DEV FROM SKIN & SUBCUT TISSUE (12/23/14) PERFORMANCE OF URINARY FILTRATION, MULTIPLE (04/11/17) Family History: States: Unknown Family Hx - Social History Hx Alcohol Use: No Hx Substance Use: No - Immunization History Hx Influenza Vaccination: Yes Hx Pneumococcal Vaccination: Yes Review Of Systems Except As Marked, All Systems Reviewed And Found Negative. Constitutional: Negative for: Fever, Chills Skin: Positive for: Other (Bleeding from shunt) Physical Exam - Physical Exam Appears: Non-toxic Skin: Warm, Dry, Other (stage I saccral decubitus ulcer, no infectious process noted ) Head: Atraumatic, Normacephalic Eye(s): bilateral: Normal Inspection Oral Mucosa: Moist Chest: Symmetrical, No Tenderness Cardiovascular: Rhythm Regular Respiratory: Normal Breath Sounds, No Rales, No Rhonchi, No Wheezing Gastrointestinal/Abdominal: Soft, No Tenderness Extremity: Other (Weakness to all 4 extremities, dressing over left av shunt broken down and saturated with blood, av shunt with hemostasis, no active bleeding. Positive thrill to left av fistula, excoriation over left av fistula.) Pulses: Left Radial: Normal, Right Radial: Normal Neurological/Psych: Oriented x3, Normal Speech ED Course And Treatment O2 Sat by Pulse Oximetry: 97 (Room air) Pulse Ox Interpretation: Normal Medical Decision Making Medical Decision Making: Gel foam applied to left av excoriation for prophylactic measures, av fistula bleeding under control. hemostasis achieved, new dressing applied Disposition Counseled Patient/Family Regarding: Studies Performed, Diagnosis - Disposition Disposition: HOME/ ROUTINE Disposition Time: 22:00 Condition: STABLE Additional Instructions: follow up with your doctor in 2 days call to make an appointment take medications as prescribed return to ER if symptoms worsens or progress BLEEDING HAS BEEN CONTROLLED Instructions: Arteriovenous Fistula for Dialysis (DC) Forms: [facility] (Malagasy), General Discharge Instructions - Clinical Impression Clinical Impression: Bleeding from dialysis shunt, ESRD (end stage renal disease) on dialysis - Scribe Statement The provider has reviewed the documentation as recorded by the Scribnancy Dawson All medical record entries made by the Scribe were at my direction and personally dictated by me. I have reviewed the chart and agree that the record accurately reflects my personal performance of the history, physical exam, medical decision making, and the department course for this patient. I have also personally directed, reviewed, and agree with the discharge instructions and disposition.
[2017-09-25 22:28] VITALS: BP 150/47; PULSE 81; RESP 20
[2017-09-25 22:30] VITALS: O2SAT 97
== END 2017-09-25 22:31 | disposition home or self-care (01) ==
LOC: C.ER 21:05
DX: T82.838A Hemorrhage due to vascular prosthetic devices, implants and grafts, initial encounter (principal); Y84.1 Kidney dialysis as the cause of abnormal reaction of the patient, or of later complication, without mention of misadventure at the time of the procedure; N18.6 End stage renal disease; Z99.2 Dependence on renal dialysis

== ENCOUNTER 2017-11-10 18:00 | Inpatient (IN) | payer MEDICARE, MEDICAID ==
[2017-11-10] MEDS ORDERED: Atropine Sulfate 1 mg/ml Vial (1 ml) IVP ONE (18:17)
[2017-11-10] MEDS ORDERED: Calcium Gluconate 4.65 MEQ in Dextrose 5% In Water 100 ML IV ONE (18:17)
[2017-11-10 18:24] LABS: BASO # 0.2 K/uL (0.0-0.2); BASO % 1.3 % (0.0-2.0); EOS # 0.5 K/uL (0.0-0.7); EOS % 4.3 % (0.0-4.0); LYMPH # 2.4 K/uL (1.0-4.3); LYMPH % 20.9 % (20.0-40.0); MEAN CORPUSCULAR HEMOGLOBIN 33.5 pg (27.0-31.0); MEAN CORPUSCULAR HGB CONC 30.4 g/dL (33.0-37.0); MEAN PLATELET VOLUME 8.3 fL (7.2-11.7); MONO # 0.8 K/uL (0.0-0.8); MONO % 6.9 % (0.0-10.0); NEUT # 7.6 K/uL (1.8-7.0); NEUT % 66.6 % (50.0-75.0); NRBC % 0.2 % (0.0-2.0); RBC 1.25 Mil/uL (4.40-5.90); RED CELL DISTRIBUTION WIDTH 20.4 % (11.5-14.5); VENOUS BLOOD GAS BASE EXCESS -7.8 mmol/L (0.0-2.0); VENOUS BLOOD GAS PCO2 35 mmHg (40-60); VENOUS BLOOD GAS PO2 21 mm/Hg (30-55); VENOUS BLOOD PH 7.31 (7.32-7.43); WHITE BLOOD COUNT 11.5 K/uL (4.8-10.8)
[2017-11-10 18:32] LABS: INR 1.1; PROTHROMBIN TIME 11.8 SECONDS (9.7-12.2)
[2017-11-10 18:34] LABS: HEMOGLOBIN 4.2 g/dL (12.0-18.0)
[2017-11-10 18:55] LABS: TROPONIN I 0.053 ng/mL (0.00-0.120)
[2017-11-10 18:57] LABS: ALB/GLOB RATIO 0.7 (1.0-2.1); ALBUMIN 1.4 g/dL (3.5-5.0); CALCIUM 5.2 mg/dl (8.6-10.4)
--- NOTE | 2017-11-10 19:55 | C.PDOC ---
History Of Present Illness 67 year old male, whose PMHx includes ESRD, is brought to the ED by ambulance after being sent from [facility] for evaluation of hypotension and bradycardia noted today. Patient attends dialysis on Sunday, and Sunday, but was unable to attend today because he was feeling tired and weak. Patient was given Atropine and IV fluids by EMS for systolic blood pressure in 50s and heart rate in 40s with mild improvement. Patient denies vomiting. Time Seen by Provider: 11/10/17 18:14 Chief Complaint (Nursing): Altered Mental Status History Per: Patient, EMS History/Exam Limitations: None Onset/Duration Of Symptoms: Hrs Onset Of Symptoms: Cannot Confirm Onset Current Symptoms Are (Timing): Still Present Usual Baseline: Alert Oriented Additional History Per: Patient, EMS Past Medical History Reviewed: Historical Data, Nursing Documentation, Vital Signs Vital Signs: Last Vital Signs Temp 97 F L 11/10/17 20:59 Pulse 43 L 11/10/17 20:59 Resp 20 11/10/17 20:59 BP 108/18 L 11/10/17 20:59 Pulse Ox 100 11/10/17 21:15 - Medical History PMH: Anemia, Asthma, CHF, COPD, CVA (affecting left side), Depression ('MAJOR DEPRESSIVE DISORDER,SINGLE EPISODE,UNSPECIFIED"), HTN, Peripheral Edema, End Stage Renal Disease, Chronic Kidney Disease, Sleep Apnea Surgical History: CABG, Endoscopy, Pacemaker - [facility] (08/16/17) DIALYSIS ARTERIOVENOSTOM (10/07/14) EXCISION OF SIGMOID COLON, ENDO, DIAGN (09/26/16) INCIS W REM OF FORIEGN BODY OR DEV FROM SKIN & SUBCUT TISSUE (12/23/14) PERFORMANCE OF URINARY FILTRATION, MULTIPLE (04/11/17) Family History: States: Unknown Family Hx - Social History Hx Alcohol Use: No Hx Substance Use: No - Immunization History Hx Influenza Vaccination: Yes Hx Pneumococcal Vaccination: Yes Review Of Systems Constitutional: Positive for: Weakness Gastrointestinal: Negative for: Vomiting Physical Exam - Physical Exam Appears: Non-toxic, Chronically Ill, Other (morbidly obese ) Skin: Warm, Dry, Pale, Other (ashen ) Head: Atraumatic, Normacephalic Eye(s): bilateral: Normal Inspection Oral Mucosa: Moist Neck: Supple Chest: Symmetrical, No Deformity, No Tenderness Cardiovascular: Rhythm Regular, No Murmur Respiratory: Normal Breath Sounds, No Rales, No Rhonchi, No Wheezing Gastrointestinal/Abdominal: Soft, No Tenderness, No Guarding, No Rebound, Other (obese ) Rectal: Other (dark tarry black stool noted per rectum ) Neurological/Psych: Other (awake, alert, and lethargic ) ED Course And Treatment - Laboratory Results Result Diagrams: 11/10/17 22:12 11/10/17 18:20 ECG: Interpreted By Me ECG Rhythm: Sinus Rhythm, R BBB ECG Interpretation: Normal Rate From EC O2 Sat by Pulse Oximetry: 100 (on RA) Pulse Ox Interpretation: Normal - Radiology CXR: Interpreted by Me (mild venous congestion ), Viewed By Me - CT Scan/US CT Head Other Rad Studies (CT/US): Read By Radiologist, Radiology Report Reviewed CT/US Interpretation: IMPRESSION: 1. Nonspecific white matter changes. Acute infarction may be CT occult within first 24 hours. If a. focal deficit persists , consider followup CT or MRI for further evaluation. 2. Sinus disease. 3. Incidental/non-acute findings are described above. Progress Note: Bloodwork, CXR, CT Head, and EKG ordered and reviewed. Atropine IVP administered. Calcium gluconate IVP administered for suspected hyperkalemia. VBG results are within normal limits. Case discussed with Dr. Lester (ICU) at 1840. Patient accepted to ICU. Case discussed with Dr. Lexa Mathis. Reevaluation Time: 20:30 Reassessment Condition: Improved - Physician Consult Information Outcome Of Conversation: 8pm, d/w Dr. Lucas- pmd, refers adm to Dr. Rodas though pt admitted to ICU, until Dr. Lucas returns tomorrow. discussed with Dr. Rodas who agrees to adm to ICU Critical Care Time - Critical Care Note Total Time (in mins): 90 Documented critical care: time excludes all time spent performing seperately billable procedures. Medical Decision Making Medical Decision Making: prolonged upper GIB, ? related to plavix/GI Disposition Doctor Will See Patient In The: Hospital Counseled Patient/Family Regarding: Studies Performed, Diagnosis - Disposition Disposition: HOSPITALIZED Disposition Time: 20:30 Condition: GUARDED - Clinical Impression Clinical Impression: Anemia, Gastrointestinal hemorrhage - Scribe Statement The provider has reviewed the documentation as recorded by the Scribe (Taniya Mathis) Provider Attestation: All medical record entries made by the Scribe were at my direction and personally dictated by me. I have reviewed the chart and agree that the record accurately reflects my personal performance of the history, physical exam, medical decision making, and the department course for this patient. I have also personally directed, reviewed, and agree with the discharge instructions and disposition.
[2017-11-10] MEDS ORDERED: Pantoprazole 80 MG in Sodium Chloride 0.9% 100 ML IVP SCH (20:00)
--- NOTE | 2017-11-10 20:23 | CP.PCM.CON ---
History of Present Illness - History of Present Illness History of Present Illness: 67 y/o male patient with pmx of ESRD, COPD, CAD, CVA on asa, eliquis, doxycyclineferrouns sulfatemidodrine, prednisone, restoril ticagrelor brought to ICU with BP of 72/40. Patient not able to provide any history. Limited ROS Review of Systems - Review of Systems Review of Systems: limited ROS 2nd unstable BP Past Patient History - Infectious Disease Hx of Infectious Diseases: None - Past Medical History & Family History Past Medical History?: Yes - Past Social History Smoking Status: Never Smoked - CARDIAC Hx Congestive Heart Failure: Yes Hx Hypertension: Yes Hx Pacemaker: Yes Hx Peripheral Edema: Yes - PULMONARY Hx Asthma: Yes Hx Chronic Obstructive Pulmonary Disease (COPD): Yes Hx Sleep Apnea: Yes - NEUROLOGICAL HX Cerebrovascular Accident: Yes (non ambulatory) - HEENT Hx HEENT Problems: Yes Hx Cataracts: Yes - RENAL Hx Chronic Kidney Disease: Yes - ENDOCRINE/METABOLIC Hx Diabetes Mellitus Type 2: Yes - HEMATOLOGICAL/ONCOLOGICAL Hx Anemia: Yes - INTEGUMENTARY Hx Dermatological Problems: Yes Other/Comment: healed sacral ulcer - MUSCULOSKELETAL/RHEUMATOLOGICAL Hx Musculoskeletal Disorders: Yes Hx Falls: Yes Hx Unsteady Gait: Yes Other/Comment: HX: MUSCLE WEAKNESS(GENERALIZED), Left sided body weakness due to CVA - GASTROINTESTINAL Hx Gastrointestinal Disorders: Yes Other/Comment: HX: DYSPHAGIA,UNSPECIFIED - GENITOURINARY/GYNECOLOGICAL Hx Genitourinary Disorders: No - PSYCHIATRIC Hx Depression: Yes ('MAJOR DEPRESSIVE DISORDER,SINGLE EPISODE,UNSPECIFIED") Hx Substance Use: No - SURGICAL HISTORY Hx Coronary Artery Bypass Graft: Yes - ANESTHESIA Hx Anesthesia: Yes Hx Anesthesia Reactions: No Hx Malignant Hyperthermia: No Meds Allergies/Adverse Reactions: Allergies Allergy/AdvReac Type Severity Reaction Status Date / Time iodine Allergy Intermediate RASH Verified 09/25/17 21:16 aspirin Allergy Verified 09/25/17 21:16 clopidogrel [From Plavix] Allergy SHORTNESS Verified 09/26/17 17:18 OF BREATH clopidogrel bisulfate Allergy UNKNOWN Verified 09/25/17 21:16 [From Plavix] penicillin G Allergy SHORTNESS Verified 09/26/17 17:18 OF BREATH Penicillins Allergy UNKNOWN Verified 09/25/17 21:16 IV DYE Allergy Uncoded 09/25/17 21:16 - Medications Medications: Current Medications Pantoprazole Sodium 80 mg/ (Sodium Chloride) 100 mls @ 10 mls/hr IVP .Q10H BELL PRN Reason: 8 MG/HR Desmopressin Acetate 21 mcg/ (Sodium Chloride) 55.25 mls @ 100 mls/hr IV ONCE ONE Stop: 11/10/17 20:22 Physical Exam - Constitutional Appears: Unkempt, Older Than Stated Age, Confused - Head Exam Head Exam: ATRAUMATIC, NORMAL INSPECTION - Eye Exam Eye Exam: Normal appearance Pupil Exam: PERRL - ENT Exam ENT Exam: Mucous Membranes Moist - Respiratory Exam Respiratory Exam: Rales - Cardiovascular Exam Cardiovascular Exam: Bradycardia, +S1, +S2, +S4, Systolic Murmur - GI/Abdominal Exam GI & Abdominal Exam: Soft. absent: Rebound, Rigid, Tenderness - Rectal Exam Rectal Exam: Black Stool, Fecal Impaction Additional comments: guiac (+) - Extremities Exam Extremities exam: Positive for: pedal edema Results - Vital Signs Recent Vital Signs: Last Vital Signs Temp 99 F 11/10/17 18:15 Pulse 61 11/10/17 19:27 Resp 10 L 11/10/17 19:27 BP 91/25 L 11/10/17 19:27 Pulse Ox 100 11/10/17 20:19 - Labs Result Diagrams: 11/10/17 18:20 11/10/17 18:20 Labs: Laboratory Results - last 24 hr 11/10/17 11/10/17 11/10/17 18:04 18:20 18:20 WBC RBC Hgb Hct MCV MCH MCHC RDW Plt Count MPV Neut % (Auto) Lymph % (Auto) [place] % (Auto) Eos % (Auto) Baso % (Auto) Neut # (Auto) Lymph # (Auto) [place] # (Auto) Eos # (Auto) Baso # (Auto) PT INR APTT pO2 21 L VBG pH 7.31 L VBG pCO2 35 L VBG HCO3 17.0 VBG Total CO2 18.7 L VBG O2 Sat (Calc) 48.1 VBG Base Excess -7.8 L VBG Potassium 4.6 Sodium 142 143.0 Chloride 113 H 120.0 H Glucose 90 Lactate 1.9 Potassium 4.8 Carbon Dioxide 18 L Anion Gap 16 BUN 78 H Creatinine 3.1 H Est GFR ( Amer) 25 Est GFR (Non-Af Amer) 20 POC Glucose (mg/dL) 165 H Random Glucose 87 Calcium 5.2 L* D Total Bilirubin 0.2 AST 34 ALT 38 Alkaline Phosphatase 87 Ammonia Troponin I 0.0530 NT-Pro-B Natriuret Pep 24121 H Total Protein 3.4 L Albumin 1.4 L D Globulin 2.0 L Albumin/Globulin Ratio 0.7 L Venous Blood Potassium 4.6 Blood Type Antibody Screen Antibody Identification 11/10/17 11/10/17 11/10/17 18:20 18:20 18:35 WBC 11.5 H D RBC 1.25 L Hgb 4.2 L* D Hct 13.7 L MCV 110.0 H D MCH 33.5 H MCHC 30.4 L RDW 20.4 H Plt Count 149 MPV 8.3 Neut % (Auto) 66.6 Lymph % (Auto) 20.9 [place] % (Auto) 6.9 Eos % (Auto) 4.3 H Baso % (Auto) 1.3 Neut # (Auto) 7.6 H Lymph # (Auto) 2.4 [place] # (Auto) 0.8 Eos # (Auto) 0.5 Baso # (Auto) 0.2 PT 11.8 INR 1.1 APTT 40 H pO2 VBG pH VBG pCO2 VBG HCO3 VBG Total CO2 VBG O2 Sat (Calc) VBG Base Excess VBG Potassium Sodium Chloride Glucose Lactate Potassium Carbon Dioxide Anion Gap BUN Creatinine Est GFR ( Amer) Est GFR (Non-Af Amer) POC Glucose (mg/dL) Random Glucose Calcium Total Bilirubin AST ALT Alkaline Phosphatase Ammonia Troponin I NT-Pro-B Natriuret Pep Total Protein Albumin Globulin Albumin/Globulin Ratio Venous Blood Potassium Blood Type B POSITIVE Antibody Screen Positive Antibody Identification Anti P1 11/10/17 18:44 WBC RBC Hgb Hct MCV MCH MCHC RDW Plt Count MPV Neut % (Auto) Lymph % (Auto) [place] % (Auto) Eos % (Auto) Baso % (Auto) Neut # (Auto) Lymph # (Auto) [place] # (Auto) Eos # (Auto) Baso # (Auto) PT INR APTT pO2 VBG pH VBG pCO2 VBG HCO3 VBG Total CO2 VBG O2 Sat (Calc) VBG Base Excess VBG Potassium Sodium Chloride Glucose Lactate Potassium Carbon Dioxide Anion Gap BUN Creatinine Est GFR ( Amer) Est GFR (Non-Af Amer) POC Glucose (mg/dL) Random Glucose Calcium Total Bilirubin AST ALT Alkaline Phosphatase Ammonia 29 Troponin I NT-Pro-B Natriuret Pep Total Protein Albumin Globulin Albumin/Globulin Ratio Venous Blood Potassium Blood Type Antibody Screen Antibody Identification Assessment & Plan - Assessment and Plan (Free Text) Assessment: Upper Gi bleed iwith underlying ESRD (not HD recently): start PRBC transfusion to keep Hb/hct >8/24, no active bleeding, chronic -at risk of CAD: was on tricagelor, asa, eliquis, will hold all antiplatelets and AC, check EKG adn trop, echo -NPO, serial cbc -EKG reveals bradycardia, RBBB, start dopamine, K 4.8, no EKG changes, calcium given in ER, repeat chemisty and EKG -Uremia: ddavp x1 and then HD as per renal -DVT ppx venodynes PUD ppx: IV protonix -Patient remains critical and will benefit from ICu level care -Clinically fluid overloaded, HD while PRBC infusion many diagnostic tests pending. Prognosis guarded as not all history available. NO offical ER note available ( LOCked/draft) -NO EMS sheet available
[2017-11-10] MEDS ORDERED: Aztreonam 2 GM in Sodium Chloride 0.9% 100 ML IVPB ONE (20:39)
[2017-11-10] MEDS ORDERED: Vancomycin 1 GM in Sodium Chloride 0.9% 200 ML IVPB STA (20:40)
[2017-11-10] MEDS ORDERED: (Novolog) Insulin Aspart, Recombinant 100 u/ml 10 ml vial SC SCH (20:45)
[2017-11-10] MEDS ORDERED: Gentamicin 80 mg/2mL Inj. IVPB ONE (20:45)
[2017-11-10 20:52] VITALS: BMI 31.3
[2017-11-10] MEDS ORDERED: Glucagon Recombinant 1 mg Inj IV STA (20:55)
[2017-11-10] MEDS ORDERED: Gentamicin 300 MG in Sodium Chloride 0.9% 250 ML IVPB ONE (21:00)
--- NOTE | 2017-11-10 21:02 | CT ---
EXAM: CT Head Without Intravenous Contrast CLINICAL HISTORY: 67 years old, male; Pain; Headache; Patient HX: 06-06-17 images sent; Additional info: Change ms, on plavix, ? bleed/sdh TECHNIQUE: Axial computed tomography images of the head/brain without intravenous contrast. All CT scans at this facility use one or more dose reduction techniques, viz.: automated exposure control; ma/kV adjustment per patient size (including targeted exams where dose is matched to indication; i.e. head); or iterative reconstruction technique. Coronal and sagittal reformatted images were created and reviewed. COMPARISON: CT - HEAD W/O CONTRAST 2017-06-06 10:27 FINDINGS: Brain: Mild atrophy. No intracranial hemorrhage. No mass. Minimal decreased attenuation within periventricular white matter. No definite edema. Ventricles: No hydrocephalus. Bones/joints: No acute fracture. Soft tissues: Unremarkable. Vasculature: Atherosclerotic disease of intracranial and extracranial arteries. Sinuses: Air-fluid level within RIGHT sphenoid sinus. Partial opacification of LEFT sphenoid sinus. Scattered minimal to mild mucosal thickening of remaining sinuses. Mastoid air cells: No mastoid effusion. Orbits: Unremarkable as visualized. IMPRESSION: 1. Nonspecific white matter changes. Acute infarction may be CT occult within first 24 hours. If a focal deficit persists, consider followup CT or MRI for further evaluation. 2. Sinus disease. 3. Incidental/non-acute findings are described above.
[2017-11-10] MEDS ORDERED: DOPamine 400mg/250ml D5W 400 MG/250 ML BAG IV PRN (21:30)
[2017-11-10] MEDS: Rosuvastatin Calcium 2.5 mg Tab PO SCH (21:34)
--- NOTE | 2017-11-10 22:11 | PCM.PROC ---
Procedures Attestation:: I certify that I have explained the specified Operation(s) or Procedure(s), risks, benefits and reasonable alternatives to the Patient and/or other person responsible. The opportunity was given to ask questions and all questions answered - Central Line Placement Right Femoral Triple Lumen Catheter Aseptic technique was employed throughout the procedure: Full sterile barriers ( mask, hair cover, sterile gown, sterile gloves), Full body sterile drape, Chloraprep Antiseptic: 30 second prep for IJ or SC sites, Chloraprep Antiseptic : 2 minute prep for Femoral CVP Time Out Performed: Yes Pt. Placed on Pulse Ox Monitor: Yes Central Line Prep: Chlorhexidine-Alcohol Combination Local Anesthesia Used: Lidocaine 1% Amount of Anesthesia Used (mls): 5 Ultrasound Used for Placement: Yes Central Line Lumen Inserted: triple Central Line Length: 20 cm Post Procedure: Sutured in Place, Good Blood Return, All Ports Aspirated, Flushed, Capped, Sterile Dressing Applied Secured by: Suture Post procedure dressing: Gauze, Clear vapor permeable, Chlorhexidine disc ( Biopatch) Post Procedure X-Ray: No Patient Tolerated Procedure: Well Immediate Complications: None
[2017-11-10 22:21] LABS: BASO # 0.1 K/uL (0.0-0.2); BASO % 0.4 % (0.0-2.0); EOS # 0.2 K/uL (0.0-0.7); EOS % 1.5 % (0.0-4.0); LYMPH # 0.8 K/uL (1.0-4.3); LYMPH % 6.3 % (20.0-40.0); MEAN CELL VOLUME 103.4 fL (80.0-94.0); MEAN CORPUSCULAR HGB CONC 31.9 g/dL (33.0-37.0); MEAN PLATELET VOLUME 8.3 fL (7.2-11.7); MONO # 0.7 K/uL (0.0-0.8); MONO % 5.5 % (0.0-10.0); NEUT # 11.4 K/uL (1.8-7.0); NEUT % 86.3 % (50.0-75.0); NRBC % 0.1 % (0.0-2.0); PLATELET COUNT 146 K/uL (130-400); RBC 1.69 Mil/uL (4.40-5.90); RED CELL DISTRIBUTION WIDTH 20.8 % (11.5-14.5); WHITE BLOOD COUNT 13.2 K/uL (4.8-10.8)
[2017-11-10 22:24] LABS: HEMOGLOBIN 5.6 g/dL (12.0-18.0)
[2017-11-10] MEDS: Pantoprazole 80 MG in Sodium Chloride 0.9% 100 ML IVPB SCH (22:37)
[2017-11-10 22:39] LABS: TROPONIN I 0.067 ng/mL (0.00-0.120)
[2017-11-10 22:44] LABS: ALBUMIN 2.4 g/dL (3.5-5.0); CALCIUM 8.4 mg/dl (8.6-10.4)
[2017-11-10 22:47] LABS: ANISOCYTOSIS SLIGHT; BURR CELLS SLIGHT; HYPOCHROMIC MODERATE; LYMPHOCYTE 7 % (20-40); MONOCYTE 3 % (0-10); NEUTROPHIL 90 % (50-75); OVALOCYTES SLIGHT; PLATELET ESTIMATE NORMAL (NORMAL); POIKILOCYTOSIS SLIGHT; TOTAL CELLS COUNTED 100
[2017-11-10 22:48] LABS: LARGE PLATELETS PRESENT
[2017-11-11] MEDS: (Novolog) Insulin Aspart, Recombinant 100 u/ml 10 ml vial SC SCH ×4 (00:25→16:30)
[2017-11-11 06:06] LABS: BASO # 0.1 K/uL (0.0-0.2); BASO % 0.6 % (0.0-2.0); EOS # 0.2 K/uL (0.0-0.7); EOS % 1.8 % (0.0-4.0); HEMOGLOBIN 7.6 g/dL (12.0-18.0); LYMPH # 0.8 K/uL (1.0-4.3); LYMPH % 8.3 % (20.0-40.0); MEAN CELL VOLUME 94.8 fL (80.0-94.0); MEAN CORPUSCULAR HEMOGLOBIN 32.1 pg (27.0-31.0); MEAN CORPUSCULAR HGB CONC 33.9 g/dL (33.0-37.0); MEAN PLATELET VOLUME 7.7 fL (7.2-11.7); MONO # 0.7 K/uL (0.0-0.8); MONO % 7.2 % (0.0-10.0); NEUT # 8.2 K/uL (1.8-7.0); NEUT % 82.1 % (50.0-75.0); NRBC % 0.2 % (0.0-2.0); PLATELET COUNT 128 K/uL (130-400); RBC 2.35 Mil/uL (4.40-5.90); RED CELL DISTRIBUTION WIDTH 21.7 % (11.5-14.5)
[2017-11-11 06:20] LABS: ALB/GLOB RATIO 0.9 (1.0-2.1); ALBUMIN 2.4 g/dL (3.5-5.0); ALT/SGPT 43 U/L (21-72); AST/SGOT 36 U/L (17-59); BLOOD UREA NITROGEN 55 mg/dL (9-20); CALCIUM 8.2 mg/dl (8.6-10.4); GFR AFRICAN-AMERICAN 29; GFR NON-AFRICAN AMERICAN 24
--- NOTE | 2017-11-11 07:23 | RAD ---
PROCEDURE: CHEST RADIOGRAPH, 1 VIEW HISTORY: SOB, renal failure on dialysis. COMPARISON: None available. FINDINGS: LUNGS: Sternotomy wires are identified once again with event recorder again seen along the plane the heart likely in the left anterior chest wall. Cardiomegaly is reiterated with pulmonary vascular congestion improved in the interval though likely [id number] recurrent. Mild active CHF suggested. Retrocardiac atelectasis or infiltrate is identified at the left base. PLEURA: Smaller pleural effusion or fibrosis blunts the left costophrenic sulcus. None is seen the right. No pneumothorax bilaterally. CARDIOVASCULAR: As above. OSSEOUS STRUCTURES: As above. VISUALIZED UPPER ABDOMEN: Normal. OTHER FINDINGS: None. IMPRESSION: [id number] recurrent CHF with limited left pleural effusion or fibrosis noted. Retrocardiac atelectasis or infiltrate is identified.
[2017-11-11] MEDS: Pantoprazole 80 MG in Sodium Chloride 0.9% 100 ML IVPB SCH (07:40)
[2017-11-11] MEDS ORDERED: Acetaminophen/Codeine elixir 120-12mg/5ml PO STA (08:48)
--- NOTE | 2017-11-11 08:53 | CP.PCM.CON ---
History of Present Illness - History of Present Illness History of Present Illness: ASked today to see pt . Pt reports he sees Dr Burgos in office Covering Dr Burgos today. Pt came to ER with weakness. Found to have severe anemia. Rectal exam- fecal impaction and dark stool. Meds- Brillinta. PMH: CAD, CVA, CRF, HD, COPD, depression Pt denies GI bleed, ulcer. Reports colonsoocpy 1 yr ago. RN and staff report there has been no GI bleed and no melena since pt has been in . CXR- CHF and pl effusion. Review of Systems - Constitutional Constitutional: Fatigue, Lethargy. absent: Weight Loss - EENT Eyes: absent: Diplopia - Cardiovascular Cardiovascular: Dyspnea. absent: Chest Pain - Respiratory Respiratory: absent: Hemoptysis, Wheezing - Gastrointestinal Gastrointestinal: absent: Abdominal Pain, Bloating, Coffee Ground Emesis, Constipation, Diarrhea, Dysphagia, Hematemesis, Hematochezia, Loose Stools, Melena, Nausea, Vomiting - Genitourinary Genitourinary: absent: Hematuria - Musculoskeletal Musculoskeletal: Muscle Cramps - Integumentary Integumentary: absent: Jaundice - Neurological Neurological: absent: Convulsions Past Patient History - Infectious Disease Hx of Infectious Diseases: None - Past Medical History & Family History Past Medical History?: Yes - Past Social History Smoking Status: Never Smoked - CARDIAC Hx Congestive Heart Failure: Yes Hx Hypertension: Yes Hx Pacemaker: Yes Hx Peripheral Edema: Yes - PULMONARY Hx Asthma: Yes Hx Chronic Obstructive Pulmonary Disease (COPD): Yes Hx Sleep Apnea: Yes - NEUROLOGICAL HX Cerebrovascular Accident: Yes (non ambulatory) - HEENT Hx HEENT Problems: Yes Hx Cataracts: Yes - RENAL Hx Chronic Kidney Disease: Yes - ENDOCRINE/METABOLIC Hx Diabetes Mellitus Type 2: Yes - HEMATOLOGICAL/ONCOLOGICAL Hx Anemia: Yes - INTEGUMENTARY Hx Dermatological Problems: Yes Other/Comment: healed sacral ulcer - MUSCULOSKELETAL/RHEUMATOLOGICAL Hx Musculoskeletal Disorders: Yes Hx Falls: Yes Hx Unsteady Gait: Yes Other/Comment: HX: MUSCLE WEAKNESS(GENERALIZED), Left sided body weakness due to CVA - GASTROINTESTINAL Hx Gastrointestinal Disorders: Yes Other/Comment: HX: DYSPHAGIA,UNSPECIFIED - GENITOURINARY/GYNECOLOGICAL Hx Genitourinary Disorders: No - PSYCHIATRIC Hx Depression: Yes ('MAJOR DEPRESSIVE DISORDER,SINGLE EPISODE,UNSPECIFIED") Hx Substance Use: No - SURGICAL HISTORY Hx Coronary Artery Bypass Graft: Yes - ANESTHESIA Hx Anesthesia: Yes Hx Anesthesia Reactions: No Hx Malignant Hyperthermia: No Meds Allergies/Adverse Reactions: Allergies Allergy/AdvReac Type Severity Reaction Status Date / Time iodine Allergy Intermediate RASH Verified 09/25/17 21:16 aspirin Allergy Verified 09/25/17 21:16 clopidogrel [From Plavix] Allergy SHORTNESS Verified 09/26/17 17:18 OF BREATH clopidogrel bisulfate Allergy UNKNOWN Verified 09/25/17 21:16 [From Plavix] penicillin G Allergy SHORTNESS Verified 09/26/17 17:18 OF BREATH Penicillins Allergy UNKNOWN Verified 09/25/17 21:16 IV DYE Allergy Uncoded 09/25/17 21:16 - Medications Medications: Current Medications Acetaminophen/Codeine Phosphate (Tylenol/Codeine Elixir) 5 ml PO STAT STA Stop: 11/11/17 08:49 Dopamine HCl/Dextrose (Dopamine 400mg/250ml D5w) 400 mg in 250 mls @ 5.443 mls/ hr IV .Q24H PRN; Protocol; 2 MCG/KG/MIN PRN Reason: TITRATE PER MD ORDER Last Titration: 11/11/17 02:00 Dose: 2.49 mcg/kg/min, 6.777 mls/hr Pantoprazole Sodium 80 mg/ (Sodium Chloride) 100 mls @ 10 mls/hr IVPB .Q10H BELL PRN Reason: 8 MG/HR Last Admin: 11/11/17 07:40 Dose: 10 mls/hr Insulin Aspart (Novolog) 0 unit SC Q6H BELL PRN Reason: Protocol Last Admin: 11/11/17 06:00 Dose: Not Given Rosuvastatin Calcium (Crestor) 2.5 mg PO HS BELL Last Admin: 11/10/17 21:34 Dose: Not Given Physical Exam - Constitutional Appears: Non-toxic - Respiratory Exam Respiratory Exam: Rales - Cardiovascular Exam Cardiovascular Exam: RRR - GI/Abdominal Exam GI & Abdominal Exam: Normal Bowel Sounds, Soft. absent: Guarding, Mass, Tenderness - Extremities Exam Extremities exam: Positive for: pedal edema - Neurological Exam Neurological exam: Alert, Oriented x3 - Psychiatric Exam Psychiatric exam: Flat Affect Results - Vital Signs Recent Vital Signs: Last Vital Signs Temp 98.5 F 11/11/17 04:00 Pulse 88 11/11/17 07:50 Resp 11 L 11/11/17 07:50 BP 118/34 L 11/11/17 07:46 Pulse Ox 100 11/11/17 07:50 - Labs Result Diagrams: 11/11/17 06:03 11/11/17 06:03 Labs: Laboratory Results - last 24 hr 11/10/17 11/10/17 11/10/17 18:04 18:20 18:20 WBC RBC Hgb Hct MCV MCH MCHC RDW Plt Count MPV Neut % (Auto) Lymph % (Auto) Bennett % (Auto) Eos % (Auto) Baso % (Auto) Neut # (Auto) Lymph # (Auto) Bennett # (Auto) Eos # (Auto) Baso # (Auto) Neutrophils % (Manual) Lymphocytes % (Manual) Monocytes % (Manual) Platelet Estimate Large Platelets Hypochromasia (manual) Poikilocytosis (manual Anisocytosis (manual) Ovalocytes [place] Cells PT INR APTT pO2 21 L VBG pH 7.31 L VBG pCO2 35 L VBG HCO3 17.0 VBG Total CO2 18.7 L VBG O2 Sat (Calc) 48.1 VBG Base Excess -7.8 L VBG Potassium 4.6 Sodium 142 143.0 Chloride 113 H 120.0 H Glucose 90 Lactate 1.9 Potassium 4.8 Carbon Dioxide 18 L Anion Gap 16 BUN 78 H Creatinine 3.1 H Est GFR ( Amer) 25 Est GFR (Non-Af Amer) 20 POC Glucose (mg/dL) 165 H Random Glucose 87 Calcium 5.2 L* D Phosphorus Magnesium Total Bilirubin 0.2 AST 34 ALT 38 Alkaline Phosphatase 87 Ammonia Troponin I 0.0530 NT-Pro-B Natriuret Pep 79087 H Total Protein 3.4 L Albumin 1.4 L D Globulin 2.0 L Albumin/Globulin Ratio 0.7 L Venous Blood Potassium 4.6 Blood Type Antibody Screen Antibody Identification 11/10/17 11/10/17 11/10/17 18:20 18:20 18:35 WBC 11.5 H D RBC 1.25 L Hgb 4.2 L* D Hct 13.7 L MCV 110.0 H D MCH 33.5 H MCHC 30.4 L RDW 20.4 H Plt Count 149 MPV 8.3 Neut % (Auto) 66.6 Lymph % (Auto) 20.9 Bennett % (Auto) 6.9 Eos % (Auto) 4.3 H Baso % (Auto) 1.3 Neut # (Auto) 7.6 H Lymph # (Auto) 2.4 Bennett # (Auto) 0.8 Eos # (Auto) 0.5 Baso # (Auto) 0.2 Neutrophils % (Manual) Lymphocytes % (Manual) Monocytes % (Manual) Platelet Estimate Large Platelets Hypochromasia (manual) Poikilocytosis (manual Anisocytosis (manual) Ovalocytes Germain Cells PT 11.8 INR 1.1 APTT 40 H pO2 VBG pH VBG pCO2 VBG HCO3 VBG Total CO2 VBG O2 Sat (Calc) VBG Base Excess VBG Potassium Sodium Chloride Glucose Lactate Potassium Carbon Dioxide Anion Gap BUN Creatinine Est GFR ( Amer) Est GFR (Non-Af Amer) POC Glucose (mg/dL) Random Glucose Calcium Phosphorus Magnesium Total Bilirubin AST ALT Alkaline Phosphatase Ammonia Troponin I NT-Pro-B Natriuret Pep Total Protein Albumin Globulin Albumin/Globulin Ratio Venous Blood Potassium Blood Type B POSITIVE Antibody Screen Positive Antibody Identification Anti P1 11/10/17 11/10/17 11/10/17 18:44 22:12 22:12 WBC 13.2 H RBC 1.69 L Hgb 5.6 L* Hct 17.5 L MCV 103.4 H D MCH 33.0 H MCHC 31.9 L RDW 20.8 H Plt Count 146 MPV 8.3 Neut % (Auto) 86.3 H Lymph % (Auto) 6.3 L Bennett % (Auto) 5.5 Eos % (Auto) 1.5 Baso % (Auto) 0.4 Neut # (Auto) 11.4 H Lymph # (Auto) 0.8 L Bennett # (Auto) 0.7 Eos # (Auto) 0.2 Baso # (Auto) 0.1 Neutrophils % (Manual) 90 H Lymphocytes % (Manual) 7 L Monocytes % (Manual) 3 Platelet Estimate Normal Large Platelets Present Hypochromasia (manual) Moderate Poikilocytosis (manual Slight Anisocytosis (manual) Slight Ovalocytes Slight [place] Cells Slight PT INR APTT pO2 VBG pH VBG pCO2 VBG HCO3 VBG Total CO2 VBG O2 Sat (Calc) VBG Base Excess VBG Potassium Sodium 137 Chloride 98 Glucose Lactate Potassium 7.4 H* D Carbon Dioxide 26 Anion Gap 21 H BUN 117 H* D Creatinine 5.0 H Est GFR ( Amer) 14 Est GFR (Non-Af Amer) 12 POC Glucose (mg/dL) Random Glucose 135 H Calcium 8.4 L Phosphorus Magnesium Total Bilirubin 0.6 AST 39 ALT 46 Alkaline Phosphatase 147 H D Ammonia 29 Troponin I 0.0670 NT-Pro-B Natriuret Pep Total Protein 4.9 L Albumin 2.4 L D Globulin 2.5 Albumin/Globulin Ratio 1.0 Venous Blood Potassium Blood Type Antibody Screen Antibody Identification 11/11/17 11/11/17 11/11/17 00:18 06:03 06:03 WBC 10.0 RBC 2.35 L Hgb 7.6 L D Hct 22.3 L MCV 94.8 H D MCH 32.1 H MCHC 33.9 RDW 21.7 H Plt Count 128 L MPV 7.7 Neut % (Auto) 82.1 H Lymph % (Auto) 8.3 L Bennett % (Auto) 7.2 Eos % (Auto) 1.8 Baso % (Auto) 0.6 Neut # (Auto) 8.2 H Lymph # (Auto) 0.8 L Bennett # (Auto) 0.7 Eos # (Auto) 0.2 Baso # (Auto) 0.1 Neutrophils % (Manual) Lymphocytes % (Manual) Monocytes % (Manual) Platelet Estimate Large Platelets Hypochromasia (manual) Poikilocytosis (manual Anisocytosis (manual) Ovalocytes Germain Cells PT INR APTT pO2 VBG pH VBG pCO2 VBG HCO3 VBG Total CO2 VBG O2 Sat (Calc) VBG Base Excess VBG Potassium Sodium 138 Chloride 98 Glucose Lactate Potassium 4.8 Carbon Dioxide 31 H Anion Gap 15 BUN 55 H Creatinine 2.7 H Est GFR ( Amer) 29 Est GFR (Non-Af Amer) 24 POC Glucose (mg/dL) 133 H Random Glucose 84 Calcium 8.2 L Phosphorus 3.0 Magnesium 2.1 Total Bilirubin 0.8 AST 36 ALT 43 Alkaline Phosphatase 139 H Ammonia Troponin I NT-Pro-B Natriuret Pep Total Protein 5.1 L Albumin 2.4 L Globulin 2.7 Albumin/Globulin Ratio 0.9 L Venous Blood Potassium Blood Type Antibody Screen Antibody Identification Assessment & Plan (1) Anemia Assessment and Plan: dark stool on rectal exam- but reports fecal impaction. Pt denies GI bleed. NO bleeding since admisssion. Consider upper GI source, such as ulcer or ectasia. REC- PPI, chedck Hbs, EGD when medically stable. Check CHF and effusions. Hold brillinta. Status: Acute (2) Gastrointestinal hemorrhage Assessment and Plan: Dark stool in rectum. Status: Acute (3) CAD (coronary artery disease) of artery bypass graft Status: Acute (4) COPD (chronic obstructive pulmonary disease) Status: Acute (5) Chronic congestive heart failure Status: Acute (6) Chronic kidney disease Status: Acute (7) Diabetic neuropathy Status: Acute (8) ESRD (end stage renal disease) on dialysis Status: Acute (9) CAD (coronary artery disease) Status: Chronic (10) Diabetes Status: Chronic (11) History of CVA (cerebrovascular accident) Status: Chronic (12) Hypertension Status: Chronic (13) Sleep apnea Status: Chronic
[2017-11-11] MEDS: Acetaminophen 650mg/20.3ml solution UD PO PRN ×4 (09:04→21:29)
[2017-11-11 09:16] LABS: FOLATE > 20.0 ng/mL
[2017-11-11 10:22] LABS: BANDS 1 % (0-2); BASOPHIL 2 % (0-2); EOSINOPHIL 1 % (0-4); LYMPHOCYTE 5 % (20-40); MONOCYTE 7 % (0-10); NEUTROPHIL 84 % (50-75); PLATELET ESTIMATE NORMAL (NORMAL); TOTAL CELLS COUNTED 100
[2017-11-11 10:24] LABS: ANISOCYTOSIS MODERATE
[2017-11-11 10:25] LABS: OVALOCYTES SLIGHT; POIKILOCYTOSIS SLIGHT; TOXIC GRANULATION PRESENT
[2017-11-11 10:26] LABS: SCHISTOCYTES SLIGHT
[2017-11-11 10:46] LABS: HYPOCHROMIC SLIGHT; POLYCHROMIC SLIGHT
--- NOTE | 2017-11-11 14:21 | CP.PCM.HP ---
History of Present Illness - History of Present Illness History of Present Illness: 67 year old male, whose PMHx includes ESRD, is brought to the ED by ambulance after being sent from [facility] for evaluation of hypotension and bradycardia noted today. Patient attends dialysis on Sunday, and Sunday, but was unable to attend today because he was feeling tired and weak. Patient was given Atropine and IV fluids by EMS for systolic blood pressure in 50s and heart rate in 40s with mild improvement. Patient denies vomiting. found to have severe anemia , became bradycardic and hypotensive - Medical History PMH: Anemia, Asthma, CHF, COPD, CVA (affecting left side), Depression ('MAJOR DEPRESSIVE DISORDER,SINGLE EPISODE,UNSPECIFIED"), HTN, Peripheral Edema, End Stage Renal Disease, Chronic Kidney Disease, Sleep Apnea Surgical History: CABG, Endoscopy, Pacemaker - [facility] (08/16/17) DIALYSIS ARTERIOVENOSTOM (10/07/14) EXCISION OF SIGMOID COLON, ENDO, DIAGN (09/26/16) INCIS W REM OF FORIEGN BODY OR DEV FROM SKIN & SUBCUT TISSUE (12/23/14) PERFORMANCE OF URINARY FILTRATION, MULTIPLE (04/11/17) Review of Systems - Review of Systems All systems: reviewed and no additional remarkable complaints except - Constitutional Constitutional: As Per HPI - EENT Eyes: absent: As Per HPI, Blind Spots, Blurred Vision, Change in Vision, Decreased Night Vision, Diplopia, Discharge, Dry Eye, Exophthalmos, Floaters, Irritation, Itchy Eyes, Loss of Peripheral Vision, Pain, Photophobia, Requires Corrective Lenses, Sees Flashes, Spots in Vision, Tunnel Vision, Other Visual Disturbances, Loss of Vision, Other Ears: absent: As Per HPI, Decreased Hearing, Ear Discharge, Ear Pain, Tinnitus, Abnormal Hearing, Disequilibrium, Dizziness, Other Nose/Mouth/Throat: absent: As Per HPI, Epistaxis, Nasal Congestion, Nasal Discharge, Nasal Obstruction, Nasal Trauma, Nose Pain, Post Nasal Drip, Sinus Pain, Sinus Pressure, Bleeding Gums, Change in Voice, Dental Pain, Dry Mouth, Dysphagia, Halitosis, Hoarsness, Lip Swelling, Mouth Lesions, Mouth Pain, Odynophagia, Sore Throat, Throat Swelling, Tongue Swelling, Facial Pain, Neck Pain, Neck Mass, Other - Cardiovascular Cardiovascular: As Per HPI - Respiratory Respiratory: As Per HPI, Cough, Dyspnea, Snoring. absent: Hemoptysis - Gastrointestinal Gastrointestinal: absent: As Per HPI, Abdominal Pain, Belching, Bloating, Change in Bowel Habits, Change in Stool Character, Coffee Ground Emesis, Constipation, Cramping, Diarrhea, Dyspepsia, Dysphagia, Early Satiety, Excessive Flatus, Fecal Incontinence, Heartburn, Hematemesis, Hematochezia, Loose Stools, Melena, Nausea, Odynophagia, Temesmus, Vomiting, Other - Genitourinary Genitourinary: absent: As Per HPI, Change in Urinary Stream, Difficulty Urinating, Dysuria, Flank Pain, Hematuria, Pyuria, Nocturia, Urinary Incontinence, Urinary Frequency, Urinary Hesitance, Urinary Urgency, Voiding Freq/Small Amts, Freq UTI, Hx Renal/Bladder Calculi, Hx /Renal Surgery, Bladder Distension, Other - Musculoskeletal Musculoskeletal: absent: As Per HPI, Abnormal Gait, Arthralgias, Atrophy, Back Pain, Deformity, Joint Swelling, Limited Range of Motion, Loss of Height, Muscle Cramps, Muscle Weakness, Myalgias, Neck Pain, Numbness, Radiating Pain into Limb, Stiffness, Tingling, Other - Integumentary Integumentary: As Per HPI - Neurological Neurological: As Per HPI - Psychiatric Psychiatric: As Per HPI - Endocrine Endocrine: absent: As Per HPI, Change in Body Appearance, Change in Libido, Cold Intolorance, Deepening of Voice, Excessive Sweating, Fatigue, Flushing, Heat Intolorance, Increase in Ring/Shoe/Hat Size, Palpitations, Polydipsia, Polyphagia, Polyuria, Other - Hematologic/Lymphatic Hematologic: absent: As Per HPI, Easy Bleeding, Easy Bruising, Lymphadenopathy, Other Present on Admission - Present on Admission Any Indicators Present on Admission: No History of DVT/PE: No History of Uncontrolled Diabetes: No Urinary Catheter: No Decubitus Ulcer Present: No History Surgical Site Infection Following: None Past Patient History - Infectious Disease Hx of Infectious Diseases: None - Past Medical History & Family History Past Medical History?: Yes - Past Social History Smoking Status: Never Smoked - CARDIAC Hx Congestive Heart Failure: Yes Hx Hypertension: Yes Hx Pacemaker: Yes Hx Peripheral Edema: Yes - PULMONARY Hx Asthma: Yes Hx Chronic Obstructive Pulmonary Disease (COPD): Yes Hx Sleep Apnea: Yes - NEUROLOGICAL HX Cerebrovascular Accident: Yes (non ambulatory) - HEENT Hx HEENT Problems: Yes Hx Cataracts: Yes - RENAL Hx Chronic Kidney Disease: Yes - ENDOCRINE/METABOLIC Hx Diabetes Mellitus Type 2: Yes - HEMATOLOGICAL/ONCOLOGICAL Hx Anemia: Yes - INTEGUMENTARY Hx Dermatological Problems: Yes Other/Comment: healed sacral ulcer - MUSCULOSKELETAL/RHEUMATOLOGICAL Hx Musculoskeletal Disorders: Yes Hx Falls: Yes Hx Unsteady Gait: Yes Other/Comment: HX: MUSCLE WEAKNESS(GENERALIZED), Left sided body weakness due to CVA - GASTROINTESTINAL Hx Gastrointestinal Disorders: Yes Other/Comment: HX: DYSPHAGIA,UNSPECIFIED - GENITOURINARY/GYNECOLOGICAL Hx Genitourinary Disorders: No - PSYCHIATRIC Hx Depression: Yes ('MAJOR DEPRESSIVE DISORDER,SINGLE EPISODE,UNSPECIFIED") Hx Substance Use: No - SURGICAL HISTORY Hx Coronary Artery Bypass Graft: Yes - ANESTHESIA Hx Anesthesia: Yes Hx Anesthesia Reactions: No Hx Malignant Hyperthermia: No Meds Allergies/Adverse Reactions: Allergies Allergy/AdvReac Type Severity Reaction Status Date / Time iodine Allergy Intermediate RASH Verified 09/25/17 21:16 aspirin Allergy Verified 09/25/17 21:16 clopidogrel [From Plavix] Allergy SHORTNESS Verified 09/26/17 17:18 OF BREATH clopidogrel bisulfate Allergy UNKNOWN Verified 09/25/17 21:16 [From Plavix] penicillin G Allergy SHORTNESS Verified 09/26/17 17:18 OF BREATH Penicillins Allergy UNKNOWN Verified 09/25/17 21:16 IV DYE Allergy Uncoded 09/25/17 21:16 Physical Exam - Constitutional Appears: Non-toxic, Chronically Ill - Head Exam Head Exam: ATRAUMATIC, NORMAL INSPECTION, NORMOCEPHALIC - Eye Exam Eye Exam: EOMI, PERRL. absent: Scleral icterus - ENT Exam ENT Exam: Mucous Membranes Dry, Normal External Ear Exam, Normal Oropharynx - Neck Exam Neck exam: Negative for: Lymphadenopathy, Thyromegaly - Respiratory Exam Respiratory Exam: Decreased Breath Sounds, Clear to Auscultation Bilateral - Cardiovascular Exam Cardiovascular Exam: Tachycardia, REGULAR RHYTHM, +S1, +S2 - GI/Abdominal Exam GI & Abdominal Exam: Diminished Bowel Sounds, Distended, Soft. absent: Rebound , Rigid, Tenderness - Rectal Exam Rectal Exam: Deferred - Exam Exam: NORMAL INSPECTION - Extremities Exam Extremities exam: Positive for: pedal pulses present. Negative for: calf tenderness, pedal edema, tenderness - Back Exam Back exam: absent: CVA tenderness (L), CVA tenderness (R), paraspinal tenderness - Neurological Exam Neurological exam: Alert, CN II-XII Intact, Motor Sensory Deficit, Oriented x3 Additional comments: left sided weakness/ contracted - Psychiatric Exam Psychiatric exam: Depressed - Skin Skin Exam: Dry Results - Vital Signs Recent Vital Signs: Last Vital Signs Temp 98.5 F 11/11/17 12:00 Pulse 75 11/11/17 13:59 Resp 16 11/11/17 13:59 BP 113/58 L 11/11/17 13:59 Pulse Ox 100 11/11/17 13:59 - Labs Result Diagrams: 11/11/17 06:03 11/11/17 06:03 Labs: Laboratory Results - last 24 hr 11/10/17 11/10/17 11/10/17 18:04 18:20 18:20 WBC RBC Hgb Hct MCV MCH MCHC RDW Plt Count MPV Neut % (Auto) Lymph % (Auto) Charles % (Auto) Eos % (Auto) Baso % (Auto) Neut # (Auto) Lymph # (Auto) Charles # (Auto) Eos # (Auto) Baso # (Auto) Neutrophils % (Manual) Band Neutrophils % Lymphocytes % (Manual) Monocytes % (Manual) Eosinophils % (Manual) Basophils % (Manual) Toxic Granulation Platelet Estimate Large Platelets Polychromasia Hypochromasia (manual) Poikilocytosis (manual Anisocytosis (manual) Ovalocytes Germain Cells Schistocytes PT INR APTT pO2 21 L VBG pH 7.31 L VBG pCO2 35 L VBG HCO3 17.0 VBG Total CO2 18.7 L VBG O2 Sat (Calc) 48.1 VBG Base Excess -7.8 L VBG Potassium 4.6 Sodium 142 143.0 Chloride 113 H 120.0 H Glucose 90 Lactate 1.9 Potassium 4.8 Carbon Dioxide 18 L Anion Gap 16 BUN 78 H Creatinine 3.1 H Est GFR ( Amer) 25 Est GFR (Non-Af Amer) 20 POC Glucose (mg/dL) 165 H Random Glucose 87 Calcium 5.2 L* D Phosphorus Magnesium Total Bilirubin 0.2 AST 34 ALT 38 Alkaline Phosphatase 87 Ammonia Troponin I 0.0530 NT-Pro-B Natriuret Pep 64758 H Total Protein 3.4 L Albumin 1.4 L D Globulin 2.0 L Albumin/Globulin Ratio 0.7 L Vitamin B12 Folate Venous Blood Potassium 4.6 Blood Type Antibody Screen Antibody Identification 11/10/17 11/10/17 11/10/17 18:20 18:20 18:35 WBC 11.5 H D RBC 1.25 L Hgb 4.2 L* D Hct 13.7 L MCV 110.0 H D MCH 33.5 H MCHC 30.4 L RDW 20.4 H Plt Count 149 MPV 8.3 Neut % (Auto) 66.6 Lymph % (Auto) 20.9 Charles % (Auto) 6.9 Eos % (Auto) 4.3 H Baso % (Auto) 1.3 Neut # (Auto) 7.6 H Lymph # (Auto) 2.4 Charles # (Auto) 0.8 Eos # (Auto) 0.5 Baso # (Auto) 0.2 Neutrophils % (Manual) Band Neutrophils % Lymphocytes % (Manual) Monocytes % (Manual) Eosinophils % (Manual) Basophils % (Manual) Toxic Granulation Platelet Estimate Large Platelets Polychromasia Hypochromasia (manual) Poikilocytosis (manual Anisocytosis (manual) Ovalocytes [place] Cells Schistocytes PT 11.8 INR 1.1 APTT 40 H pO2 VBG pH VBG pCO2 VBG HCO3 VBG Total CO2 VBG O2 Sat (Calc) VBG Base Excess VBG Potassium Sodium Chloride Glucose Lactate Potassium Carbon Dioxide Anion Gap BUN Creatinine Est GFR ( Amer) Est GFR (Non-Af Amer) POC Glucose (mg/dL) Random Glucose Calcium Phosphorus Magnesium Total Bilirubin AST ALT Alkaline Phosphatase Ammonia Troponin I NT-Pro-B Natriuret Pep Total Protein Albumin Globulin Albumin/Globulin Ratio Vitamin B12 Folate Venous Blood Potassium Blood Type B POSITIVE Antibody Screen Positive Antibody Identification Anti P1 11/10/17 11/10/17 11/10/17 18:44 22:12 22:12 WBC 13.2 H RBC 1.69 L Hgb 5.6 L* Hct 17.5 L MCV 103.4 H D MCH 33.0 H MCHC 31.9 L RDW 20.8 H Plt Count 146 MPV 8.3 Neut % (Auto) 86.3 H Lymph % (Auto) 6.3 L Charles % (Auto) 5.5 Eos % (Auto) 1.5 Baso % (Auto) 0.4 Neut # (Auto) 11.4 H Lymph # (Auto) 0.8 L Charles # (Auto) 0.7 Eos # (Auto) 0.2 Baso # (Auto) 0.1 Neutrophils % (Manual) 90 H Band Neutrophils % Lymphocytes % (Manual) 7 L Monocytes % (Manual) 3 Eosinophils % (Manual) Basophils % (Manual) Toxic Granulation Platelet Estimate Normal Large Platelets Present Polychromasia Hypochromasia (manual) Moderate Poikilocytosis (manual Slight Anisocytosis (manual) Slight Ovalocytes Slight [place] Cells Slight Schistocytes PT INR APTT pO2 VBG pH VBG pCO2 VBG HCO3 VBG Total CO2 VBG O2 Sat (Calc) VBG Base Excess VBG Potassium Sodium 137 Chloride 98 Glucose Lactate Potassium 7.4 H* D Carbon Dioxide 26 Anion Gap 21 H BUN 117 H* D Creatinine 5.0 H Est GFR ( Amer) 14 Est GFR (Non-Af Amer) 12 POC Glucose (mg/dL) Random Glucose 135 H Calcium 8.4 L Phosphorus Magnesium Total Bilirubin 0.6 AST 39 ALT 46 Alkaline Phosphatase 147 H D Ammonia 29 Troponin I 0.0670 NT-Pro-B Natriuret Pep Total Protein 4.9 L Albumin 2.4 L D Globulin 2.5 Albumin/Globulin Ratio 1.0 Vitamin B12 Folate Venous Blood Potassium Blood Type Antibody Screen Antibody Identification 11/11/17 11/11/17 11/11/17 00:18 06:03 06:03 WBC 10.0 RBC 2.35 L Hgb 7.6 L D Hct 22.3 L MCV 94.8 H D MCH 32.1 H MCHC 33.9 RDW 21.7 H Plt Count 128 L MPV 7.7 Neut % (Auto) 82.1 H Lymph % (Auto) 8.3 L Charles % (Auto) 7.2 Eos % (Auto) 1.8 Baso % (Auto) 0.6 Neut # (Auto) 8.2 H Lymph # (Auto) 0.8 L Charles # (Auto) 0.7 Eos # (Auto) 0.2 Baso # (Auto) 0.1 Neutrophils % (Manual) 84 H Band Neutrophils % 1 Lymphocytes % (Manual) 5 L Monocytes % (Manual) 7 Eosinophils % (Manual) 1 Basophils % (Manual) 2 Toxic Granulation Present Platelet Estimate Normal Large Platelets Polychromasia Slight Hypochromasia (manual) Slight Poikilocytosis (manual Slight Anisocytosis (manual) Moderate Ovalocytes Slight Germ[place] Cells Schistocytes Slight PT INR APTT pO2 VBG pH VBG pCO2 VBG HCO3 VBG Total CO2 VBG O2 Sat (Calc) VBG Base Excess VBG Potassium Sodium 138 Chloride 98 Glucose Lactate Potassium 4.8 Carbon Dioxide 31 H Anion Gap 15 BUN 55 H Creatinine 2.7 H Est GFR ( Amer) 29 Est GFR (Non-Af Amer) 24 POC Glucose (mg/dL) 133 H Random Glucose 84 Calcium 8.2 L Phosphorus 3.0 Magnesium 2.1 Total Bilirubin 0.8 AST 36 ALT 43 Alkaline Phosphatase 139 H Ammonia Troponin I NT-Pro-B Natriuret Pep Total Protein 5.1 L Albumin 2.4 L Globulin 2.7 Albumin/Globulin Ratio 0.9 L Vitamin B12 644 Folate > 20.0 Venous Blood Potassium Blood Type Antibody Screen Antibody Identification 11/11/17 11:22 WBC RBC Hgb Hct MCV MCH MCHC RDW Plt Count MPV Neut % (Auto) Lymph % (Auto) Charles % (Auto) Eos % (Auto) Baso % (Auto) Neut # (Auto) Lymph # (Auto) Charles # (Auto) Eos # (Auto) Baso # (Auto) Neutrophils % (Manual) Band Neutrophils % Lymphocytes % (Manual) Monocytes % (Manual) Eosinophils % (Manual) Basophils % (Manual) Toxic Granulation Platelet Estimate Large Platelets Polychromasia Hypochromasia (manual) Poikilocytosis (manual Anisocytosis (manual) Ovalocytes Germain Cells Schistocytes PT INR APTT pO2 VBG pH VBG pCO2 VBG HCO3 VBG Total CO2 VBG O2 Sat (Calc) VBG Base Excess VBG Potassium Sodium Chloride Glucose Lactate Potassium Carbon Dioxide Anion Gap BUN Creatinine Est GFR ( Amer) Est GFR (Non-Af Amer) POC Glucose (mg/dL) 73 Random Glucose Calcium Phosphorus Magnesium Total Bilirubin AST ALT Alkaline Phosphatase Ammonia Troponin I NT-Pro-B Natriuret Pep Total Protein Albumin Globulin Albumin/Globulin Ratio Vitamin B12 Folate Venous Blood Potassium Blood Type Antibody Screen Antibody Identification Assessment & Plan (1) Anemia Status: Acute (2) Gastrointestinal hemorrhage Status: Acute (3) Acute hyperkalemia Status: Acute (4) CAD (coronary artery disease) of artery bypass graft Status: Acute (5) CHF (congestive heart failure), NYHA class III Status: Acute (6) COPD (chronic obstructive pulmonary disease) Status: Acute (7) ESRD (end stage renal disease) on dialysis Status: Acute (8) ASHD (arteriosclerotic heart disease) Status: Chronic (9) Diabetes Status: Chronic (10) History of CVA (cerebrovascular accident) Status: Chronic (11) Hypertension Status: Chronic (12) Sleep apnea Status: Chronic - Assessment and Plan (Free Text) Assessment: transfusion, HD and EGD planned stat cardio eval Dr Lucas- bradycardia Decision To Admit - Pt Status Changed To: Hospital Disposition Of: Inpatient - Admit Certification Admit to Inpatient:: After my assessment, the patient will require hospitalization for at least two midnights. This is because of the severity of symptoms shown, intensity of services needed, and/or the medical risk in this patient being treated as an outpatient. - InPatient: Physician Admission Certification:: admit to ICU for emergency transfusion and dialysis due to hemodynamic instability - . Bed Request Type: ICU Admitting Physician: Fabiano Rodas
--- NOTE | 2017-11-11 14:47 | CP.CCUPN ---
CCU Subjective - Physician Review Events Since Last Encounter (Free Text): 11/11/17 14:40 patient feels much better today, no clinical complaints. CCU Objective - Vital Signs / Intake & Output Vital Signs (Last 4 hours): Vital Signs Temp Pulse Resp BP Pulse Ox 11/11/17 13:59 75 16 113/58 L 100 11/11/17 12:59 83 13 109/25 L 100 11/11/17 12:00 98.5 F 11/11/17 11:59 81 16 110/29 L 100 11/11/17 11:17 78 12 100 11/11/17 11:00 78 16 97/22 L 100 Intake and Output (Last 8hrs): Intake & Output 11/10/17 11/11/17 11/11/17 22:59 06:59 14:59 Intake Total 506 2495.4 580 Balance 506 2495.4 580 Weight 200 lb 200 lb Intake: IV 1 109 Intake, IV Amount 130 761.4 50 right ac 10 80 50 right fem medial port 250 right foot 110 350 rt femoral proximal port 10 81.4 Oral 530 TPN/PPN 975 Blood Product 325 650 Red Blood Cells Cpd As1 325 Lr Unit [id number] Red Blood Cells Cpd As1 325 Lr Unit [id number] Red Blood Cells Cpd As1 325 Lr Unit [id number] Other 50 Red Blood Cells Cpd As1 50 Lr Unit [id number] - Physical Exam Head: Positive for: Atraumatic, Normocephalic Pupils: Positive for: PERRL Extroacular Muscles: Positive for: EOMI Conjunctiva: Positive for: Normal Mouth: Positive for: Moist Mucous Membranes Respiratory/Chest: Positive for: Clear to Auscultation, Good Air Exchange Cardiovascular: Positive for: Regular Rate and Rhythm Upper Extremity: Positive for: Normal Inspection Lower Extremity: Positive for: Normal Inspection Neurological: Positive for: GCS=15, CN II-XII Intact Psychiatric: Positive for: Alert, Oriented x 3 - Medications Active Medications: Active Medications Generic Name Dose Route Start Last Admin Trade Name Freq PRN Reason Stop Dose Admin Acetaminophen 650 mg 11/11/17 08:54 11/11/17 09:04 Tylenol 650mg/20.3ml Solution Ud PO 650 mg Q6 PRN Administration Pain, moderate (4-7) Dopamine HCl/Dextrose 400 mg in 250 mls @ 5.443 mls/hr 11/10/17 21:30 04:00 Dopamine 400mg/250ml D5w IV 0 mcg/kg/min .Q24H PRN 0 mls/hr TITRATE PER MD ORDER Titration Protocol 2 MCG/KG/MIN Insulin Aspart 0 unit 11/11/17 00:00 11/11/17 11:27 Novolog SC Not Given Q6H [facility] Protocol Pantoprazole Sodium 40 mg 11/11/17 11:15 11/11/17 11:36 Protonix Inj IVP 40 mg Q12 [facility] Administration Rosuvastatin Calcium 2.5 mg 11/10/17 22:00 11/10/17 21:34 Crestor PO Not Given HS [facility] - Patient Studies Lab Studies: Microbiology Studies 11/10/17 21:00 MRSA Culture (Admit) - Final Naris MRSA NOT DETECTED Lab Studies 11/11/17 11/11/17 11/11/17 Range/Units 11:22 06:03 06:03 WBC 10.0 (4.8-10.8) K/uL RBC 2.35 L (4.40-5.90) Mil/uL Hgb 7.6 L D (12.0-18.0) g/dL Hct 22.3 L (35.0-51.0) % MCV 94.8 H D (80.0-94.0) fL MCH 32.1 H (27.0-31.0) pg MCHC 33.9 (33.0-37.0) g/dL RDW 21.7 H (11.5-14.5) % Plt Count 128 L (130-400) K/uL MPV 7.7 (7.2-11.7) fL Neut % (Auto) 82.1 H (50.0-75.0) % Lymph % (Auto) 8.3 L (20.0-40.0) % [place] % (Auto) 7.2 (0.0-10.0) % Eos % (Auto) 1.8 (0.0-4.0) % Baso % (Auto) 0.6 (0.0-2.0) % Neut # (Auto) 8.2 H (1.8-7.0) K/uL Lymph # (Auto) 0.8 L (1.0-4.3) K/uL [place] # (Auto) 0.7 (0.0-0.8) K/uL Eos # (Auto) 0.2 (0.0-0.7) K/uL Baso # (Auto) 0.1 (0.0-0.2) K/uL Neutrophils % (Manual) 84 H (50-75) % Band Neutrophils % 1 (0-2) % Lymphocytes % (Manual) 5 L (20-40) % Monocytes % (Manual) 7 (0-10) % Eosinophils % (Manual) 1 (0-4) % Basophils % (Manual) 2 (0-2) % Toxic Granulation Present Platelet Estimate Normal (NORMAL) Large Platelets Polychromasia Slight Hypochromasia (manual) Slight Poikilocytosis (manual Slight Anisocytosis (manual) Moderate Ovalocytes Slight [place] Cells Schistocytes Slight PT (9.7-12.2) SECONDS INR APTT (21-34) SECONDS pO2 (30-55) mm/Hg VBG pH (7.32-7.43) VBG pCO2 (40-60) mmHg VBG HCO3 mmol/L VBG Total CO2 (22-28) mmol/L VBG O2 Sat (Calc) (40-65) % VBG Base Excess (0.0-2.0) mmol/L VBG Potassium (3.6-5.2) mmol/L Sodium 138 (132-148) mmol/l Chloride 98 (98-107) mmol/L Glucose (75-110) mg/dl Lactate (0.7-2.1) mmol/L Potassium 4.8 (3.6-5.2) mmol/L Carbon Dioxide 31 H (22-30) mmol/L Anion Gap 15 (10-20) BUN 55 H (9-20) mg/dL Creatinine 2.7 H (0.8-1.5) mg/dL Est GFR ( Amer) 29 Est GFR (Non-Af Amer) 24 POC Glucose (mg/dL) 73 (65-110) mg/dL Random Glucose 84 (75-110) mg/dL Calcium 8.2 L (8.6-10.4) mg/dl Phosphorus 3.0 (2.5-4.5) mg/dL Magnesium 2.1 (1.6-2.3) mg/dL Total Bilirubin 0.8 (0.2-1.3) mg/dL AST 36 (17-59) U/L ALT 43 (21-72) U/L Alkaline Phosphatase 139 H (38-126) U/L Ammonia (9-33) umol/L Troponin I (0.00-0.120) ng/mL NT-Pro-B Natriuret Pep (0-900) pg/mL Total Protein 5.1 L (6.3-8.3) g/dL Albumin 2.4 L (3.5-5.0) g/dL Globulin 2.7 (2.2-3.9) gm/dL Albumin/Globulin Ratio 0.9 L (1.0-2.1) Vitamin B12 644 (239-931) pg/mL Folate > 20.0 ng/mL Venous Blood Potassium (3.6-5.2) mmol/L Blood Type Antibody Screen Antibody Identification 11/11/17 11/10/17 11/10/17 Range/Units 00:18 22:12 22:12 WBC 13.2 H (4.8-10.8) K/uL RBC 1.69 L (4.40-5.90) Mil/uL Hgb 5.6 L* (12.0-18.0) g/dL Hct 17.5 L (35.0-51.0) % MCV 103.4 H D (80.0-94.0) fL MCH 33.0 H (27.0-31.0) pg MCHC 31.9 L (33.0-37.0) g/dL RDW 20.8 H (11.5-14.5) % Plt Count 146 (130-400) K/uL MPV 8.3 (7.2-11.7) fL Neut % (Auto) 86.3 H (50.0-75.0) % Lymph % (Auto) 6.3 L (20.0-40.0) % [place] % (Auto) 5.5 (0.0-10.0) % Eos % (Auto) 1.5 (0.0-4.0) % Baso % (Auto) 0.4 (0.0-2.0) % Neut # (Auto) 11.4 H (1.8-7.0) K/uL Lymph # (Auto) 0.8 L (1.0-4.3) K/uL [place] # (Auto) 0.7 (0.0-0.8) K/uL Eos # (Auto) 0.2 (0.0-0.7) K/uL Baso # (Auto) 0.1 (0.0-0.2) K/uL Neutrophils % (Manual) 90 H (50-75) % Band Neutrophils % (0-2) % Lymphocytes % (Manual) 7 L (20-40) % Monocytes % (Manual) 3 (0-10) % Eosinophils % (Manual) (0-4) % Basophils % (Manual) (0-2) % Toxic Granulation Platelet Estimate Normal (NORMAL) Large Platelets Present Polychromasia Hypochromasia (manual) Moderate Poikilocytosis (manual Slight Anisocytosis (manual) Slight Ovalocytes Slight [place] Cells Slight Schistocytes PT (9.7-12.2) SECONDS INR APTT (21-34) SECONDS pO2 (30-55) mm/Hg VBG pH (7.32-7.43) VBG pCO2 (40-60) mmHg VBG HCO3 mmol/L VBG Total CO2 (22-28) mmol/L VBG O2 Sat (Calc) (40-65) % VBG Base Excess (0.0-2.0) mmol/L VBG Potassium (3.6-5.2) mmol/L Sodium 137 (132-148) mmol/l Chloride 98 (98-107) mmol/L Glucose (75-110) mg/dl Lactate (0.7-2.1) mmol/L Potassium 7.4 H* D (3.6-5.2) mmol/L Carbon Dioxide 26 (22-30) mmol/L Anion Gap 21 H (10-20) BUN 117 H* D (9-20) mg/dL Creatinine 5.0 H (0.8-1.5) mg/dL Est GFR ( Amer) 14 Est GFR (Non-Af Amer) 12 POC Glucose (mg/dL) 133 H (65-110) mg/dL Random Glucose 135 H (75-110) mg/dL Calcium 8.4 L (8.6-10.4) mg/dl Phosphorus (2.5-4.5) mg/dL Magnesium (1.6-2.3) mg/dL Total Bilirubin 0.6 (0.2-1.3) mg/dL AST 39 (17-59) U/L ALT 46 (21-72) U/L Alkaline Phosphatase 147 H D (38-126) U/L Ammonia (9-33) umol/L Troponin I 0.0670 (0.00-0.120) ng/mL NT-Pro-B Natriuret Pep (0-900) pg/mL Total Protein 4.9 L (6.3-8.3) g/dL Albumin 2.4 L D (3.5-5.0) g/dL Globulin 2.5 (2.2-3.9) gm/dL Albumin/Globulin Ratio 1.0 (1.0-2.1) Vitamin B12 (239-931) pg/mL Folate ng/mL Venous Blood Potassium (3.6-5.2) mmol/L Blood Type Antibody Screen Antibody Identification 11/10/17 11/10/17 11/10/17 Range/Units 18:44 18:35 18:20 WBC (4.8-10.8) K/uL RBC (4.40-5.90) Mil/uL Hgb (12.0-18.0) g/dL Hct (35.0-51.0) % MCV (80.0-94.0) fL MCH (27.0-31.0) pg MCHC (33.0-37.0) g/dL RDW (11.5-14.5) % Plt Count (130-400) K/uL MPV (7.2-11.7) fL Neut % (Auto) (50.0-75.0) % Lymph % (Auto) (20.0-40.0) % [place] % (Auto) (0.0-10.0) % Eos % (Auto) (0.0-4.0) % Baso % (Auto) (0.0-2.0) % Neut # (Auto) (1.8-7.0) K/uL Lymph # (Auto) (1.0-4.3) K/uL [place] # (Auto) (0.0-0.8) K/uL Eos # (Auto) (0.0-0.7) K/uL Baso # (Auto) (0.0-0.2) K/uL Neutrophils % (Manual) (50-75) % Band Neutrophils % (0-2) % Lymphocytes % (Manual) (20-40) % Monocytes % (Manual) (0-10) % Eosinophils % (Manual) (0-4) % Basophils % (Manual) (0-2) % Toxic Granulation Platelet Estimate (NORMAL) Large Platelets Polychromasia Hypochromasia (manual) Poikilocytosis (manual Anisocytosis (manual) Ovalocytes [place] Cells Schistocytes PT 11.8 (9.7-12.2) SECONDS INR 1.1 APTT 40 H (21-34) SECONDS pO2 (30-55) mm/Hg VBG pH (7.32-7.43) VBG pCO2 (40-60) mmHg VBG HCO3 mmol/L VBG Total CO2 (22-28) mmol/L VBG O2 Sat (Calc) (40-65) % VBG Base Excess (0.0-2.0) mmol/L VBG Potassium (3.6-5.2) mmol/L Sodium (132-148) mmol/l Chloride (98-107) mmol/L Glucose (75-110) mg/dl Lactate (0.7-2.1) mmol/L Potassium (3.6-5.2) mmol/L Carbon Dioxide (22-30) mmol/L Anion Gap (10-20) BUN (9-20) mg/dL Creatinine (0.8-1.5) mg/dL Est GFR ( Amer) Est GFR (Non-Af Amer) POC Glucose (mg/dL) (65-110) mg/dL Random Glucose (75-110) mg/dL Calcium (8.6-10.4) mg/dl Phosphorus (2.5-4.5) mg/dL Magnesium (1.6-2.3) mg/dL Total Bilirubin (0.2-1.3) mg/dL AST (17-59) U/L ALT (21-72) U/L Alkaline Phosphatase (38-126) U/L Ammonia 29 (9-33) umol/L Troponin I (0.00-0.120) ng/mL NT-Pro-B Natriuret Pep (0-900) pg/mL Total Protein (6.3-8.3) g/dL Albumin (3.5-5.0) g/dL Globulin (2.2-3.9) gm/dL Albumin/Globulin Ratio (1.0-2.1) Vitamin B12 (239-931) pg/mL Folate ng/mL Venous Blood Potassium (3.6-5.2) mmol/L Blood Type B POSITIVE Antibody Screen Positive Antibody Identification Anti P1 11/10/17 11/10/17 11/10/17 Range/Units 18:20 18:20 18:20 WBC 11.5 H D (4.8-10.8) K/uL RBC 1.25 L (4.40-5.90) Mil/uL Hgb 4.2 L* D (12.0-18.0) g/dL Hct 13.7 L (35.0-51.0) % MCV 110.0 H D (80.0-94.0) fL MCH 33.5 H (27.0-31.0) pg MCHC 30.4 L (33.0-37.0) g/dL RDW 20.4 H (11.5-14.5) % Plt Count 149 (130-400) K/uL MPV 8.3 (7.2-11.7) fL Neut % (Auto) 66.6 (50.0-75.0) % Lymph % (Auto) 20.9 (20.0-40.0) % [place] % (Auto) 6.9 (0.0-10.0) % Eos % (Auto) 4.3 H (0.0-4.0) % Baso % (Auto) 1.3 (0.0-2.0) % Neut # (Auto) 7.6 H (1.8-7.0) K/uL Lymph # (Auto) 2.4 (1.0-4.3) K/uL [place] # (Auto) 0.8 (0.0-0.8) K/uL Eos # (Auto) 0.5 (0.0-0.7) K/uL Baso # (Auto) 0.2 (0.0-0.2) K/uL Neutrophils % (Manual) (50-75) % Band Neutrophils % (0-2) % Lymphocytes % (Manual) (20-40) % Monocytes % (Manual) (0-10) % Eosinophils % (Manual) (0-4) % Basophils % (Manual) (0-2) % Toxic Granulation Platelet Estimate (NORMAL) Large Platelets Polychromasia Hypochromasia (manual) Poikilocytosis (manual Anisocytosis (manual) Ovalocytes [place] Cells Schistocytes PT (9.7-12.2) SECONDS INR APTT (21-34) SECONDS pO2 21 L (30-55) mm/Hg VBG pH 7.31 L (7.32-7.43) VBG pCO2 35 L (40-60) mmHg VBG HCO3 17.0 mmol/L VBG Total CO2 18.7 L (22-28) mmol/L VBG O2 Sat (Calc) 48.1 (40-65) % VBG Base Excess -7.8 L (0.0-2.0) mmol/L VBG Potassium 4.6 (3.6-5.2) mmol/L Sodium 143.0 142 (132-148) mmol/l Chloride 120.0 H 113 H (98-107) mmol/L Glucose 90 (75-110) mg/dl Lactate 1.9 (0.7-2.1) mmol/L Potassium 4.8 (3.6-5.2) mmol/L Carbon Dioxide 18 L (22-30) mmol/L Anion Gap 16 (10-20) BUN 78 H (9-20) mg/dL Creatinine 3.1 H (0.8-1.5) mg/dL Est GFR ( Amer) 25 Est GFR (Non-Af Amer) 20 POC Glucose (mg/dL) (65-110) mg/dL Random Glucose 87 (75-110) mg/dL Calcium 5.2 L* D (8.6-10.4) mg/dl Phosphorus (2.5-4.5) mg/dL Magnesium (1.6-2.3) mg/dL Total Bilirubin 0.2 (0.2-1.3) mg/dL AST 34 (17-59) U/L ALT 38 (21-72) U/L Alkaline Phosphatase 87 (38-126) U/L Ammonia (9-33) umol/L Troponin I 0.0530 (0.00-0.120) ng/mL NT-Pro-B Natriuret Pep 54854 H (0-900) pg/mL Total Protein 3.4 L (6.3-8.3) g/dL Albumin 1.4 L D (3.5-5.0) g/dL Globulin 2.0 L (2.2-3.9) gm/dL Albumin/Globulin Ratio 0.7 L (1.0-2.1) Vitamin B12 (239-931) pg/mL Folate ng/mL Venous Blood Potassium 4.6 (3.6-5.2) mmol/L Blood Type Antibody Screen Antibody Identification 11/10/17 Range/Units 18:04 WBC (4.8-10.8) K/uL RBC (4.40-5.90) Mil/uL Hgb (12.0-18.0) g/dL Hct (35.0-51.0) % MCV (80.0-94.0) fL MCH (27.0-31.0) pg MCHC (33.0-37.0) g/dL RDW (11.5-14.5) % Plt Count (130-400) K/uL MPV (7.2-11.7) fL Neut % (Auto) (50.0-75.0) % Lymph % (Auto) (20.0-40.0) % [place] % (Auto) (0.0-10.0) % Eos % (Auto) (0.0-4.0) % Baso % (Auto) (0.0-2.0) % Neut # (Auto) (1.8-7.0) K/uL Lymph # (Auto) (1.0-4.3) K/uL [place] # (Auto) (0.0-0.8) K/uL Eos # (Auto) (0.0-0.7) K/uL Baso # (Auto) (0.0-0.2) K/uL Neutrophils % (Manual) (50-75) % Band Neutrophils % (0-2) % Lymphocytes % (Manual) (20-40) % Monocytes % (Manual) (0-10) % Eosinophils % (Manual) (0-4) % Basophils % (Manual) (0-2) % Toxic Granulation Platelet Estimate (NORMAL) Large Platelets Polychromasia Hypochromasia (manual) Poikilocytosis (manual Anisocytosis (manual) Ovalocytes [place] Cells Schistocytes PT (9.7-12.2) SECONDS INR APTT (21-34) SECONDS pO2 (30-55) mm/Hg VBG pH (7.32-7.43) VBG pCO2 (40-60) mmHg VBG HCO3 mmol/L VBG Total CO2 (22-28) mmol/L VBG O2 Sat (Calc) (40-65) % VBG Base Excess (0.0-2.0) mmol/L VBG Potassium (3.6-5.2) mmol/L Sodium (132-148) mmol/l Chloride (98-107) mmol/L Glucose (75-110) mg/dl Lactate (0.7-2.1) mmol/L Potassium (3.6-5.2) mmol/L Carbon Dioxide (22-30) mmol/L Anion Gap (10-20) BUN (9-20) mg/dL Creatinine (0.8-1.5) mg/dL Est GFR ( Amer) Est GFR (Non-Af Amer) POC Glucose (mg/dL) 165 H (65-110) mg/dL Random Glucose (75-110) mg/dL Calcium (8.6-10.4) mg/dl Phosphorus (2.5-4.5) mg/dL Magnesium (1.6-2.3) mg/dL Total Bilirubin (0.2-1.3) mg/dL AST (17-59) U/L ALT (21-72) U/L Alkaline Phosphatase (38-126) U/L Ammonia (9-33) umol/L Troponin I (0.00-0.120) ng/mL NT-Pro-B Natriuret Pep (0-900) pg/mL Total Protein (6.3-8.3) g/dL Albumin (3.5-5.0) g/dL Globulin (2.2-3.9) gm/dL Albumin/Globulin Ratio (1.0-2.1) Vitamin B12 (239-931) pg/mL Folate ng/mL Venous Blood Potassium (3.6-5.2) mmol/L Blood Type Antibody Screen Antibody Identification Laboratory Results - last 24 hr 11/10/17 11/10/17 11/10/17 18:04 18:20 18:20 WBC RBC Hgb Hct MCV MCH MCHC RDW Plt Count MPV Neut % (Auto) Lymph % (Auto) [place] % (Auto) Eos % (Auto) Baso % (Auto) Neut # (Auto) Lymph # (Auto) [place] # (Auto) Eos # (Auto) Baso # (Auto) Neutrophils % (Manual) Band Neutrophils % Lymphocytes % (Manual) Monocytes % (Manual) Eosinophils % (Manual) Basophils % (Manual) Toxic Granulation Platelet Estimate Large Platelets Polychromasia Hypochromasia (manual) Poikilocytosis (manual Anisocytosis (manual) Ovalocytes [place] Cells Schistocytes PT INR APTT pO2 21 L VBG pH 7.31 L VBG pCO2 35 L VBG HCO3 17.0 VBG Total CO2 18.7 L VBG O2 Sat (Calc) 48.1 VBG Base Excess -7.8 L VBG Potassium 4.6 Sodium 142 143.0 Chloride 113 H 120.0 H Glucose 90 Lactate 1.9 Potassium 4.8 Carbon Dioxide 18 L Anion Gap 16 BUN 78 H Creatinine 3.1 H Est GFR ( Amer) 25 Est GFR (Non-Af Amer) 20 POC Glucose (mg/dL) 165 H Random Glucose 87 Calcium 5.2 L* D Phosphorus Magnesium Total Bilirubin 0.2 AST 34 ALT 38 Alkaline Phosphatase 87 Ammonia Troponin I 0.0530 NT-Pro-B Natriuret Pep 99118 H Total Protein 3.4 L Albumin 1.4 L D Globulin 2.0 L Albumin/Globulin Ratio 0.7 L Vitamin B12 Folate Venous Blood Potassium 4.6 Blood Type Antibody Screen Antibody Identification 11/10/17 11/10/17 11/10/17 18:20 18:20 18:35 WBC 11.5 H D RBC 1.25 L Hgb 4.2 L* D Hct 13.7 L MCV 110.0 H D MCH 33.5 H MCHC 30.4 L RDW 20.4 H Plt Count 149 MPV 8.3 Neut % (Auto) 66.6 Lymph % (Auto) 20.9 [place] % (Auto) 6.9 Eos % (Auto) 4.3 H Baso % (Auto) 1.3 Neut # (Auto) 7.6 H Lymph # (Auto) 2.4 [place] # (Auto) 0.8 Eos # (Auto) 0.5 Baso # (Auto) 0.2 Neutrophils % (Manual) Band Neutrophils % Lymphocytes % (Manual) Monocytes % (Manual) Eosinophils % (Manual) Basophils % (Manual) Toxic Granulation Platelet Estimate Large Platelets Polychromasia Hypochromasia (manual) Poikilocytosis (manual Anisocytosis (manual) Ovalocytes Germ[place] Cells Schistocytes PT 11.8 INR 1.1 APTT 40 H pO2 VBG pH VBG pCO2 VBG HCO3 VBG Total CO2 VBG O2 Sat (Calc) VBG Base Excess VBG Potassium Sodium Chloride Glucose Lactate Potassium Carbon Dioxide Anion Gap BUN Creatinine Est GFR ( Amer) Est GFR (Non-Af Amer) POC Glucose (mg/dL) Random Glucose Calcium Phosphorus Magnesium Total Bilirubin AST ALT Alkaline Phosphatase Ammonia Troponin I NT-Pro-B Natriuret Pep Total Protein Albumin Globulin Albumin/Globulin Ratio Vitamin B12 Folate Venous Blood Potassium Blood Type B POSITIVE Antibody Screen Positive Antibody Identification Anti P1 11/10/17 11/10/17 11/10/17 18:44 22:12 22:12 WBC 13.2 H RBC 1.69 L Hgb 5.6 L* Hct 17.5 L MCV 103.4 H D MCH 33.0 H MCHC 31.9 L RDW 20.8 H Plt Count 146 MPV 8.3 Neut % (Auto) 86.3 H Lymph % (Auto) 6.3 L [place] % (Auto) 5.5 Eos % (Auto) 1.5 Baso % (Auto) 0.4 Neut # (Auto) 11.4 H Lymph # (Auto) 0.8 L [place] # (Auto) 0.7 Eos # (Auto) 0.2 Baso # (Auto) 0.1 Neutrophils % (Manual) 90 H Band Neutrophils % Lymphocytes % (Manual) 7 L Monocytes % (Manual) 3 Eosinophils % (Manual) Basophils % (Manual) Toxic Granulation Platelet Estimate Normal Large Platelets Present Polychromasia Hypochromasia (manual) Moderate Poikilocytosis (manual Slight Anisocytosis (manual) Slight Ovalocytes Slight [place] Cells Slight Schistocytes PT INR APTT pO2 VBG pH VBG pCO2 VBG HCO3 VBG Total CO2 VBG O2 Sat (Calc) VBG Base Excess VBG Potassium Sodium 137 Chloride 98 Glucose Lactate Potassium 7.4 H* D Carbon Dioxide 26 Anion Gap 21 H BUN 117 H* D Creatinine 5.0 H Est GFR ( Amer) 14 Est GFR (Non-Af Amer) 12 POC Glucose (mg/dL) Random Glucose 135 H Calcium 8.4 L Phosphorus Magnesium Total Bilirubin 0.6 AST 39 ALT 46 Alkaline Phosphatase 147 H D Ammonia 29 Troponin I 0.0670 NT-Pro-B Natriuret Pep Total Protein 4.9 L Albumin 2.4 L D Globulin 2.5 Albumin/Globulin Ratio 1.0 Vitamin B12 Folate Venous Blood Potassium Blood Type Antibody Screen Antibody Identification 11/11/17 11/11/17 11/11/17 00:18 06:03 06:03 WBC 10.0 RBC 2.35 L Hgb 7.6 L D Hct 22.3 L MCV 94.8 H D MCH 32.1 H MCHC 33.9 RDW 21.7 H Plt Count 128 L MPV 7.7 Neut % (Auto) 82.1 H Lymph % (Auto) 8.3 L [place] % (Auto) 7.2 Eos % (Auto) 1.8 Baso % (Auto) 0.6 Neut # (Auto) 8.2 H Lymph # (Auto) 0.8 L [place] # (Auto) 0.7 Eos # (Auto) 0.2 Baso # (Auto) 0.1 Neutrophils % (Manual) 84 H Band Neutrophils % 1 Lymphocytes % (Manual) 5 L Monocytes % (Manual) 7 Eosinophils % (Manual) 1 Basophils % (Manual) 2 Toxic Granulation Present Platelet Estimate Normal Large Platelets Polychromasia Slight Hypochromasia (manual) Slight Poikilocytosis (manual Slight Anisocytosis (manual) Moderate Ovalocytes Slight [place] Cells Schistocytes Slight PT INR APTT pO2 VBG pH VBG pCO2 VBG HCO3 VBG Total CO2 VBG O2 Sat (Calc) VBG Base Excess VBG Potassium Sodium 138 Chloride 98 Glucose Lactate Potassium 4.8 Carbon Dioxide 31 H Anion Gap 15 BUN 55 H Creatinine 2.7 H Est GFR ( Amer) 29 Est GFR (Non-Af Amer) 24 POC Glucose (mg/dL) 133 H Random Glucose 84 Calcium 8.2 L Phosphorus 3.0 Magnesium 2.1 Total Bilirubin 0.8 AST 36 ALT 43 Alkaline Phosphatase 139 H Ammonia Troponin I NT-Pro-B Natriuret Pep Total Protein 5.1 L Albumin 2.4 L Globulin 2.7 Albumin/Globulin Ratio 0.9 L Vitamin B12 644 Folate > 20.0 Venous Blood Potassium Blood Type Antibody Screen Antibody Identification 11/11/17 11:22 WBC RBC Hgb Hct MCV MCH MCHC RDW Plt Count MPV Neut % (Auto) Lymph % (Auto) [place] % (Auto) Eos % (Auto) Baso % (Auto) Neut # (Auto) Lymph # (Auto) [place] # (Auto) Eos # (Auto) Baso # (Auto) Neutrophils % (Manual) Band Neutrophils % Lymphocytes % (Manual) Monocytes % (Manual) Eosinophils % (Manual) Basophils % (Manual) Toxic Granulation Platelet Estimate Large Platelets Polychromasia Hypochromasia (manual) Poikilocytosis (manual Anisocytosis (manual) Ovalocytes Germain Cells Schistocytes PT INR APTT pO2 VBG pH VBG pCO2 VBG HCO3 VBG Total CO2 VBG O2 Sat (Calc) VBG Base Excess VBG Potassium Sodium Chloride Glucose Lactate Potassium Carbon Dioxide Anion Gap BUN Creatinine Est GFR ( Amer) Est GFR (Non-Af Amer) POC Glucose (mg/dL) 73 Random Glucose Calcium Phosphorus Magnesium Total Bilirubin AST ALT Alkaline Phosphatase Ammonia Troponin I NT-Pro-B Natriuret Pep Total Protein Albumin Globulin Albumin/Globulin Ratio Vitamin B12 Folate Venous Blood Potassium Blood Type Antibody Screen Antibody Identification EKG/Cardiology Studies: Cardiology / EKG Studies 11/10/17 18:04 ELECTROCARDIOGRAM Stat Comment: Mode Of Transportation: BED Reason For Exam: SOB 11/10/17 18:17 ELECTROCARDIOGRAM Stat Comment: Mode Of Transportation: BED Reason For Exam: SOB 11/10/17 20:30 EKG [ELECTROCARDIOGRAM] Stat Comment: Mode Of Transportation: Reason For Exam: eval hyperpotassemia 11/11/17 04:30 EKG [ELECTROCARDIOGRAM] Stat Comment: Mode Of Transportation: Reason For Exam: eval hyperpotassemia Fingerstick Blood Sugar Results: 73 Review of Systems - Review of Systems All systems: reviewed and no additional remarkable complaints except (no complaints) Critical Care Progress Note - Nutrition Nutrition: Nutrition Category Date Time Status Liquid Diet [DIET] Diets 11/11/17 Lunch Active NPO Diet [DIET] Diets 11/12/17 Breakfast Active Assessment/Plan (1) Anemia Assessment and plan: 67 y/o male patient with pmx of ESRD, COPD, CAD, CVA on asa, eliquis, doxycyclineferrouns sulfatemidodrine, prednisone, restoril ticagrelor. p/w symptomatic anemia with bradycardia and hypotension. Neuro: alert and oriented x 3 Pulm: no acute issues, breathing spontaneously on room air. CV: hemodynamically stable. Hem: anemia from suspected upper GI bleeding. appropriate rise s/p transfusion 2 units PRBC. Renal: ESRD on HD, received dialysis late last night, continue regular schedule (//). Endo: no acute issues GI: Upper GI bleed, protonix IV q12h. Clear liquid diet, NPO after midnight, EGD planned for tomorrow. GI - Dr. Flores/Richard ID: no acute issues DVT proph - a/c held with current bleed, SCD's GI proph - protonix IV q12h fernandez for strict I/O's during acute illness Code status - full code Critical Care Time spent 35 minutes Multi-disciplinary rounds were performed with house staff, nursing, speech therapy, respiratory therapy, pharmacy and nutrition with integrated input from the primary team/attending and other consulting services. The documented time is cumulative and includes review of patient data/exams/labs/chart review and examination of the patient on rounds and throughout the day; time is exclusive of any procedures or teaching time. Current Visit: Yes Status: Acute
--- NOTE | 2017-11-11 15:35 | CP.PCM.CON ---
History of Present Illness - History of Present Illness History of Present Illness: pt is seen and examined, full consult is dictated #[id number] s/p hd early this am and transfusion of total 3 units prbc last night and during hd stable h/h 1. esrd 2. anemia sec to gi bleed 3. hyperkalemia 4. s/p hypotension 5. s/p bradhycardia 6. CAD 7. DM F/U With GI may need hd in am check labs in am Past Patient History - Infectious Disease Hx of Infectious Diseases: None - Past Medical History & Family History Past Medical History?: Yes - Past Social History Smoking Status: Never Smoked - CARDIAC Hx Congestive Heart Failure: Yes Hx Hypertension: Yes Hx Pacemaker: Yes Hx Peripheral Edema: Yes - PULMONARY Hx Asthma: Yes Hx Chronic Obstructive Pulmonary Disease (COPD): Yes Hx Sleep Apnea: Yes - NEUROLOGICAL HX Cerebrovascular Accident: Yes (non ambulatory) - HEENT Hx HEENT Problems: Yes Hx Cataracts: Yes - RENAL Hx Chronic Kidney Disease: Yes - ENDOCRINE/METABOLIC Hx Diabetes Mellitus Type 2: Yes - HEMATOLOGICAL/ONCOLOGICAL Hx Anemia: Yes - INTEGUMENTARY Hx Dermatological Problems: Yes Other/Comment: healed sacral ulcer - MUSCULOSKELETAL/RHEUMATOLOGICAL Hx Musculoskeletal Disorders: Yes Hx Falls: Yes Hx Unsteady Gait: Yes Other/Comment: HX: MUSCLE WEAKNESS(GENERALIZED), Left sided body weakness due to CVA - GASTROINTESTINAL Hx Gastrointestinal Disorders: Yes Other/Comment: HX: DYSPHAGIA,UNSPECIFIED - GENITOURINARY/GYNECOLOGICAL Hx Genitourinary Disorders: No - PSYCHIATRIC Hx Depression: Yes ('MAJOR DEPRESSIVE DISORDER,SINGLE EPISODE,UNSPECIFIED") Hx Substance Use: No - SURGICAL HISTORY Hx Coronary Artery Bypass Graft: Yes - ANESTHESIA Hx Anesthesia: Yes Hx Anesthesia Reactions: No Hx Malignant Hyperthermia: No Meds Allergies/Adverse Reactions: Allergies Allergy/AdvReac Type Severity Reaction Status Date / Time iodine Allergy Intermediate RASH Verified 09/25/17 21:16 aspirin Allergy Verified 09/25/17 21:16 clopidogrel [From Plavix] Allergy SHORTNESS Verified 09/26/17 17:18 OF BREATH clopidogrel bisulfate Allergy UNKNOWN Verified 09/25/17 21:16 [From Plavix] penicillin G Allergy SHORTNESS Verified 09/26/17 17:18 OF BREATH Penicillins Allergy UNKNOWN Verified 09/25/17 21:16 IV DYE Allergy Uncoded 09/25/17 21:16 - Medications Medications: Current Medications Acetaminophen (Tylenol 650mg/20.3ml Solution Ud) 650 mg PO Q6 PRN PRN Reason: Pain, moderate (4-7) Last Admin: 11/11/17 15:04 Dose: 650 mg Dopamine HCl/Dextrose (Dopamine 400mg/250ml D5w) 400 mg in 250 mls @ 5.443 mls/ hr IV .Q24H PRN; Protocol; 2 MCG/KG/MIN PRN Reason: TITRATE PER MD ORDER Last Titration: 11/11/17 04:00 Dose: 0 mcg/kg/min, 0 mls/hr Insulin Aspart (Novolog) 0 unit SC Q6H BELL PRN Reason: Protocol Last Admin: 11/11/17 11:27 Dose: Not Given Pantoprazole Sodium (Protonix Inj) 40 mg IVP Q12 BELL Last Admin: 11/11/17 11:36 Dose: 40 mg Rosuvastatin Calcium (Crestor) 2.5 mg PO HS BELL Last Admin: 11/10/17 21:34 Dose: Not Given Results - Vital Signs Recent Vital Signs: Last Vital Signs Temp 98.5 F 11/11/17 12:00 Pulse 75 11/11/17 13:59 Resp 16 11/11/17 13:59 BP 113/58 L 11/11/17 13:59 Pulse Ox 100 11/11/17 13:59 - Labs Result Diagrams: 11/11/17 18:00 11/11/17 06:03 Labs: Laboratory Results - last 24 hr 11/10/17 11/10/17 11/10/17 18:04 18:20 18:20 WBC RBC Hgb Hct MCV MCH MCHC RDW Plt Count MPV Neut % (Auto) Lymph % (Auto) [place] % (Auto) Eos % (Auto) Baso % (Auto) Neut # (Auto) Lymph # (Auto) [place] # (Auto) Eos # (Auto) Baso # (Auto) Neutrophils % (Manual) Band Neutrophils % Lymphocytes % (Manual) Monocytes % (Manual) Eosinophils % (Manual) Basophils % (Manual) Toxic Granulation Platelet Estimate Large Platelets Polychromasia Hypochromasia (manual) Poikilocytosis (manual Anisocytosis (manual) Ovalocytes Germain Cells Schistocytes PT INR APTT pO2 21 L VBG pH 7.31 L VBG pCO2 35 L VBG HCO3 17.0 VBG Total CO2 18.7 L VBG O2 Sat (Calc) 48.1 VBG Base Excess -7.8 L VBG Potassium 4.6 Sodium 142 143.0 Chloride 113 H 120.0 H Glucose 90 Lactate 1.9 Potassium 4.8 Carbon Dioxide 18 L Anion Gap 16 BUN 78 H Creatinine 3.1 H Est GFR ( Amer) 25 Est GFR (Non-Af Amer) 20 POC Glucose (mg/dL) 165 H Random Glucose 87 Calcium 5.2 L* D Phosphorus Magnesium Total Bilirubin 0.2 AST 34 ALT 38 Alkaline Phosphatase 87 Ammonia Troponin I 0.0530 NT-Pro-B Natriuret Pep 79214 H Total Protein 3.4 L Albumin 1.4 L D Globulin 2.0 L Albumin/Globulin Ratio 0.7 L Vitamin B12 Folate Venous Blood Potassium 4.6 Blood Type Antibody Screen Antibody Identification 11/10/17 11/10/17 11/10/17 18:20 18:20 18:35 WBC 11.5 H D RBC 1.25 L Hgb 4.2 L* D Hct 13.7 L MCV 110.0 H D MCH 33.5 H MCHC 30.4 L RDW 20.4 H Plt Count 149 MPV 8.3 Neut % (Auto) 66.6 Lymph % (Auto) 20.9 [place] % (Auto) 6.9 Eos % (Auto) 4.3 H Baso % (Auto) 1.3 Neut # (Auto) 7.6 H Lymph # (Auto) 2.4 [place] # (Auto) 0.8 Eos # (Auto) 0.5 Baso # (Auto) 0.2 Neutrophils % (Manual) Band Neutrophils % Lymphocytes % (Manual) Monocytes % (Manual) Eosinophils % (Manual) Basophils % (Manual) Toxic Granulation Platelet Estimate Large Platelets Polychromasia Hypochromasia (manual) Poikilocytosis (manual Anisocytosis (manual) Ovalocytes Germain Cells Schistocytes PT 11.8 INR 1.1 APTT 40 H pO2 VBG pH VBG pCO2 VBG HCO3 VBG Total CO2 VBG O2 Sat (Calc) VBG Base Excess VBG Potassium Sodium Chloride Glucose Lactate Potassium Carbon Dioxide Anion Gap BUN Creatinine Est GFR ( Amer) Est GFR (Non-Af Amer) POC Glucose (mg/dL) Random Glucose Calcium Phosphorus Magnesium Total Bilirubin AST ALT Alkaline Phosphatase Ammonia Troponin I NT-Pro-B Natriuret Pep Total Protein Albumin Globulin Albumin/Globulin Ratio Vitamin B12 Folate Venous Blood Potassium Blood Type B POSITIVE Antibody Screen Positive Antibody Identification Anti P1 11/10/17 11/10/17 11/10/17 18:44 22:12 22:12 WBC 13.2 H RBC 1.69 L Hgb 5.6 L* Hct 17.5 L MCV 103.4 H D MCH 33.0 H MCHC 31.9 L RDW 20.8 H Plt Count 146 MPV 8.3 Neut % (Auto) 86.3 H Lymph % (Auto) 6.3 L [place] % (Auto) 5.5 Eos % (Auto) 1.5 Baso % (Auto) 0.4 Neut # (Auto) 11.4 H Lymph # (Auto) 0.8 L [place] # (Auto) 0.7 Eos # (Auto) 0.2 Baso # (Auto) 0.1 Neutrophils % (Manual) 90 H Band Neutrophils % Lymphocytes % (Manual) 7 L Monocytes % (Manual) 3 Eosinophils % (Manual) Basophils % (Manual) Toxic Granulation Platelet Estimate Normal Large Platelets Present Polychromasia Hypochromasia (manual) Moderate Poikilocytosis (manual Slight Anisocytosis (manual) Slight Ovalocytes Slight Germain Cells Slight Schistocytes PT INR APTT pO2 VBG pH VBG pCO2 VBG HCO3 VBG Total CO2 VBG O2 Sat (Calc) VBG Base Excess VBG Potassium Sodium 137 Chloride 98 Glucose Lactate Potassium 7.4 H* D Carbon Dioxide 26 Anion Gap 21 H BUN 117 H* D Creatinine 5.0 H Est GFR ( Amer) 14 Est GFR (Non-Af Amer) 12 POC Glucose (mg/dL) Random Glucose 135 H Calcium 8.4 L Phosphorus Magnesium Total Bilirubin 0.6 AST 39 ALT 46 Alkaline Phosphatase 147 H D Ammonia 29 Troponin I 0.0670 NT-Pro-B Natriuret Pep Total Protein 4.9 L Albumin 2.4 L D Globulin 2.5 Albumin/Globulin Ratio 1.0 Vitamin B12 Folate Venous Blood Potassium Blood Type Antibody Screen Antibody Identification 11/11/17 11/11/17 11/11/17 00:18 06:03 06:03 WBC 10.0 RBC 2.35 L Hgb 7.6 L D Hct 22.3 L MCV 94.8 H D MCH 32.1 H MCHC 33.9 RDW 21.7 H Plt Count 128 L MPV 7.7 Neut % (Auto) 82.1 H Lymph % (Auto) 8.3 L [place] % (Auto) 7.2 Eos % (Auto) 1.8 Baso % (Auto) 0.6 Neut # (Auto) 8.2 H Lymph # (Auto) 0.8 L [place] # (Auto) 0.7 Eos # (Auto) 0.2 Baso # (Auto) 0.1 Neutrophils % (Manual) 84 H Band Neutrophils % 1 Lymphocytes % (Manual) 5 L Monocytes % (Manual) 7 Eosinophils % (Manual) 1 Basophils % (Manual) 2 Toxic Granulation Present Platelet Estimate Normal Large Platelets Polychromasia Slight Hypochromasia (manual) Slight Poikilocytosis (manual Slight Anisocytosis (manual) Moderate Ovalocytes Slight [place] Cells Schistocytes Slight PT INR APTT pO2 VBG pH VBG pCO2 VBG HCO3 VBG Total CO2 VBG O2 Sat (Calc) VBG Base Excess VBG Potassium Sodium 138 Chloride 98 Glucose Lactate Potassium 4.8 Carbon Dioxide 31 H Anion Gap 15 BUN 55 H Creatinine 2.7 H Est GFR ( Amer) 29 Est GFR (Non-Af Amer) 24 POC Glucose (mg/dL) 133 H Random Glucose 84 Calcium 8.2 L Phosphorus 3.0 Magnesium 2.1 Total Bilirubin 0.8 AST 36 ALT 43 Alkaline Phosphatase 139 H Ammonia Troponin I NT-Pro-B Natriuret Pep Total Protein 5.1 L Albumin 2.4 L Globulin 2.7 Albumin/Globulin Ratio 0.9 L Vitamin B12 644 Folate > 20.0 Venous Blood Potassium Blood Type Antibody Screen Antibody Identification 11/11/17 11:22 WBC RBC Hgb Hct MCV MCH MCHC RDW Plt Count MPV Neut % (Auto) Lymph % (Auto) [place] % (Auto) Eos % (Auto) Baso % (Auto) Neut # (Auto) Lymph # (Auto) [place] # (Auto) Eos # (Auto) Baso # (Auto) Neutrophils % (Manual) Band Neutrophils % Lymphocytes % (Manual) Monocytes % (Manual) Eosinophils % (Manual) Basophils % (Manual) Toxic Granulation Platelet Estimate Large Platelets Polychromasia Hypochromasia (manual) Poikilocytosis (manual Anisocytosis (manual) Ovalocytes Germain Cells Schistocytes PT INR APTT pO2 VBG pH VBG pCO2 VBG HCO3 VBG Total CO2 VBG O2 Sat (Calc) VBG Base Excess VBG Potassium Sodium Chloride Glucose Lactate Potassium Carbon Dioxide Anion Gap BUN Creatinine Est GFR ( Amer) Est GFR (Non-Af Amer) POC Glucose (mg/dL) 73 Random Glucose Calcium Phosphorus Magnesium Total Bilirubin AST ALT Alkaline Phosphatase Ammonia Troponin I NT-Pro-B Natriuret Pep Total Protein Albumin Globulin Albumin/Globulin Ratio Vitamin B12 Folate Venous Blood Potassium Blood Type Antibody Screen Antibody Identification
[2017-11-11 18:03] LABS: BASO # 0.1 K/uL (0.0-0.2); BASO % 0.7 % (0.0-2.0); EOS # 0.4 K/uL (0.0-0.7); EOS % 5.3 % (0.0-4.0); HEMOGLOBIN 6.8 g/dL (12.0-18.0); LYMPH # 0.9 K/uL (1.0-4.3); LYMPH % 12.2 % (20.0-40.0); MEAN CELL VOLUME 96.8 fL (80.0-94.0); MEAN CORPUSCULAR HEMOGLOBIN 32.4 pg (27.0-31.0); MEAN CORPUSCULAR HGB CONC 33.5 g/dL (33.0-37.0); MEAN PLATELET VOLUME 7.6 fL (7.2-11.7); MONO # 0.6 K/uL (0.0-0.8); MONO % 8.3 % (0.0-10.0); NEUT # 5.2 K/uL (1.8-7.0); NEUT % 73.5 % (50.0-75.0); NRBC % 0.5 % (0.0-2.0); RBC 2.1 Mil/uL (4.40-5.90); RED CELL DISTRIBUTION WIDTH 22.8 % (11.5-14.5)
[2017-11-11] MEDS: Rosuvastatin Calcium 2.5 mg Tab PO SCH (22:00)
[2017-11-11] MEDS ORDERED: traZODone 25 mg Tab PO ONE (22:45)
--- NOTE | 2017-11-12 01:32 | CON ---
DATE: 11/11/2017 LOCATION: ICU bed 8. REQUESTED BY: Dr. Fabiano Rodas. REASON FOR RENAL CONSULTATION: Severe anemia, GI bleed, end stage renal disease for emergency hemodialysis and continuation. HISTORY OF PRESENT ILLNESS: Mr. Gonzales is a 67 years old elderly obese [place] male with a past medical history significant for longstanding hypertension, diabetes, end-stage renal disease on hemodialysis for the last two to three years, coronary artery disease status post CABG, CHF, questionable COPD, CVA with left-sided weakness, bedridden and resident of [facility] for the last 2 years, was sent from the [facility] with altered mental status and weakness and found to have severe anemia and also found to have a black stool. As per the patient and as per the patient's family, he had black stool for the last 2-3 days, did not notify anybody. The patient was found to have hemoglobin very low last night about 4.2 and received immediately 1 unit of packed RBC after transferring to ICU, then the patient underwent emergency hemodialysis and received another 2 units of packed RBC.. The patient is feeling better this afternoon. Denies any chest pain, palpitation. Denies any nausea, vomiting, diarrhea. PAST MEDICAL HISTORY: Significant for longstanding hypertension, diabetes, end-stage renal disease, coronary artery disease status post CABG, CVA with left-sided weakness. PAST SURGICAL HISTORY: CABG and also left upper extremity AV graft placement. ALLERGIES: ALLERGIC TO IODINE, ASPIRIN, PLAVIX, PENICILLIN G AND IV CONTRAST. SOCIAL HISTORY: He denies any smoking, alcohol or drugs. PERSONAL HISTORY: He is single, resident of [facility] now. FAMILY HISTORY: Not significant. He has a very supportive niece. CURRENT MEDICATIONS: Include as follows; Crestor 2.5 mg at bedtime, dopamine p.r.n., Novolin for sliding scale, Protonix 40 mg IV every 12 hours and Tylenol. LABORATORY DATA: Include as follows as of 11/11/2017; WBC 10, hemoglobin 7.6, hematocrit is 22.3 and platelets 128. Sodium 138, potassium 4.8, chloride 98, CO2 31, BUN 55, creatinine 2.5, glucose 84, calcium 8.2, phosphorus 3, magnesium 2.1, total bili 0.8, AST 36, ALT 43, alkaline phosphatase 139, total protein 5.1, albumin is 2.4, B12 is 644, folic acid more than 20. His other laboratory data as of 11/10/2017; WBC 11.5, hemoglobin 4, hematocrit is 13.7, platelets 149. PT 11.8, PTT 40, sodium 142, potassium 4.8, chloride 113, CO2 18, BUN 78, creatinine 3.1, glucose 165 and calcium 5.2. Total bili 0.2, AST 34, ALT 38, alkaline phosphatase 87, ammonia 29, troponin 0.05 and proBNP 11,200. Total protein 3.4, albumin is 1.4. Other laboratory data as of 11/10/2017 WBC 13.2, hemoglobin 5.6, hematocrit is 17.5 predialysis and platelets 146, sodium 137, potassium is 7.4 and chloride 98, CO2 26, BUN is 117, creatinine 5, glucose 135, calcium 8.4. Total bili 0.6, AST 39, ALT 46, alkaline phos of 147, troponin 0.06 and total protein 4.9, albumin is 2.4. Chest x-ray as of 11/10/2017; [id number] recurrent CHF with limited left pleural effusion or fibrosis noted, retrocardiac atelectasis or infiltrate is identified. CT of the head as of 11/10/2017; nonspecific white matter changes acute infarction may be CT occult, within first 24 hours if a focal deficit persist consider following CT or MRI for further evaluation sinus disease. ASSESSMENT: In summary, Mr. Gonzales is a 67-year-old elderly [place] male with a history of hypertension, diabetes, coronary artery disease status post coronary artery bypass graft, end-stage renal disease on hemodialysis three times a week Sunday, , Sunday and also cerebrovascular accident with left-sided weakness, was admitted with altered mental status and weakness and found to have severe anemia and also hyperkalemia, hypotension and bradycardia. The patient received 3 units of packed red blood cells yesterday and underwent emergency hemodialysis. 1. Anemia secondary to gastrointestinal bleed. 2. Hyperkalemia. 3. End-stage renal disease. 4. Status post hypotension. 5. Status post bradycardia. PLAN: The patient finished hemodialysis early this morning and received total 3 units of packed RBC. Continue to monitor H and H and transfuse as needed and follow up with GI for possible endoscopy and rule out peptic ulcer disease, rule out gastritis. We will follow with you. Thank you for allowing me to participate in your patient's care. Martin Ortiz MD [facility]
[2017-11-12 06:27] LABS: BASO # 0.1 K/uL (0.0-0.2); BASO % 0.8 % (0.0-2.0); EOS # 0.5 K/uL (0.0-0.7); EOS % 7.7 % (0.0-4.0); HEMOGLOBIN 9.1 g/dL (12.0-18.0); LYMPH # 0.7 K/uL (1.0-4.3); LYMPH % 10.4 % (20.0-40.0); MEAN CELL VOLUME 97.2 fL (80.0-94.0); MEAN CORPUSCULAR HEMOGLOBIN 32.7 pg (27.0-31.0); MEAN CORPUSCULAR HGB CONC 33.6 g/dL (33.0-37.0); MEAN PLATELET VOLUME 8.4 fL (7.2-11.7); MONO # 0.5 K/uL (0.0-0.8); MONO % 6.6 % (0.0-10.0); NEUT # 5.2 K/uL (1.8-7.0); NEUT % 74.5 % (50.0-75.0); NRBC % 0.5 % (0.0-2.0); RBC 2.77 Mil/uL (4.40-5.90); RED CELL DISTRIBUTION WIDTH 20.8 % (11.5-14.5)
[2017-11-12 06:41] LABS: ALBUMIN 2.7 g/dL (3.5-5.0); CALCIUM 7.9 mg/dl (8.6-10.4)
[2017-11-12] MEDS: (Novolog) Insulin Aspart, Recombinant 100 u/ml 10 ml vial SC SCH ×4 (08:00→21:21)
--- NOTE | 2017-11-12 08:44 | CP.PCM.PN ---
Subjective - Date & Time of Evaluation Date of Evaluation: 11/12/17 Time of Evaluation: 08:44 - Subjective Subjective: pt is seen and examined, follow up consult is dictated #[id number] Objective - Vital Signs/Intake and Output Vital Signs (last 24 hours): Temp Pulse Resp BP Pulse Ox 98 F 71 23 97/21 L 100 11/12/17 08:00 11/12/17 08:00 11/12/17 08:00 11/12/17 07:37 11/12/17 08:00 Intake and Output: 11/12/17 11/12/17 06:59 18:59 Intake Total 1675 0 Output Total 0 Balance 1675 0 - Medications Medications: Current Medications Acetaminophen (Tylenol 650mg/20.3ml Solution Ud) 650 mg PO Q6 PRN PRN Reason: Pain, moderate (4-7) Last Admin: 11/11/17 21:29 Dose: 650 mg Dopamine HCl/Dextrose (Dopamine 400mg/250ml D5w) 400 mg in 250 mls @ 5.443 mls/ hr IV .Q24H PRN; Protocol; 2 MCG/KG/MIN PRN Reason: TITRATE PER MD ORDER Last Titration: 11/11/17 04:00 Dose: 0 mcg/kg/min, 0 mls/hr Insulin Aspart (Novolog) 0 unit SC ACHS BELL PRN Reason: Protocol Pantoprazole Sodium (Protonix Inj) 40 mg IVP Q12 BELL Last Admin: 11/11/17 21:31 Dose: 40 mg Rosuvastatin Calcium (Crestor) 2.5 mg PO HS BELL Last Admin: 11/11/17 22:00 Dose: 2.5 mg - Labs Labs: 11/12/17 06:01 11/12/17 06:01 PT 11.8 SECONDS (9.7-12.2) 11/10/17 18:20 INR 1.1 11/10/17 18:20 APTT 40 SECONDS (21-34) H 11/10/17 18:20
--- NOTE | 2017-11-12 09:05 | CP.CCUPN ---
CCU Subjective - Physician Review Subjective (Free Text): 11/12/17 08:58 Patient seen and examined. Patient reports poor sleep last night and is complaining of hunger. It was explained that he's NPO for his EGD today. CCU Objective - Vital Signs / Intake & Output Vital Signs (Last 4 hours): Vital Signs Temp Pulse Resp BP Pulse Ox 11/12/17 08:00 98 F 71 23 100 11/12/17 07:37 97/21 L 11/12/17 07:00 75 14 100 11/12/17 06:37 73 13 104/27 L 100 11/12/17 05:37 74 11 L 110/29 L 100 11/12/17 05:00 75 14 100 Intake and Output (Last 8hrs): Intake & Output 11/11/17 11/12/17 11/12/17 22:59 06:59 14:59 Intake Total 1510 575 0 Output Total 0 Balance 1510 575 0 Weight 203 lb Intake: Intake, IV Amount 475 0 0 right fem medial port 475 0 0 Oral 560 50 0 Blood Product 325 325 Red Blood Cells Cpd As1 0 325 Lr Unit [id number] Red Blood Cells Cpd As1 325 Lr Unit [id number] Other 150 200 Red Blood Cells Cpd As1 200 Lr Unit [id number] Red Blood Cells Cpd As1 150 Lr Unit [id number] Output: Urine 0 Urine, Voided 0 - Physical Exam Head: Positive for: Atraumatic, Normocephalic Pupils: Positive for: PERRL Extroacular Muscles: Positive for: EOMI Conjunctiva: Positive for: Normal Mouth: Positive for: Moist Mucous Membranes Respiratory/Chest: Positive for: Clear to Auscultation, Good Air Exchange Cardiovascular: Positive for: Regular Rate and Rhythm Upper Extremity: Positive for: Normal Inspection Lower Extremity: Positive for: Normal Inspection Neurological: Positive for: GCS=15, CN II-XII Intact Skin: Positive for: Warm, Dry Psychiatric: Positive for: Alert, Oriented x 3 - Medications Active Medications: Active Medications Generic Name Dose Route Start Last Admin Trade Name Freq PRN Reason Stop Dose Admin Acetaminophen 650 mg 11/11/17 08:54 11/11/17 21:29 Tylenol 650mg/20.3ml Solution Ud PO 650 mg Q6 PRN Administration Pain, moderate (4-7) Dopamine HCl/Dextrose 400 mg in 250 mls @ 5.443 mls/hr 11/10/17 21:30 04:00 Dopamine 400mg/250ml D5w IV 0 mcg/kg/min .Q24H PRN 0 mls/hr TITRATE PER MD ORDER Titration Protocol 2 MCG/KG/MIN Insulin Aspart 0 unit 11/12/17 07:30 Novolog SC ACHS BELL Protocol Pantoprazole Sodium 40 mg 11/11/17 11:15 11/11/17 21:31 Protonix Inj IVP 40 mg Q12 BELL Administration Rosuvastatin Calcium 2.5 mg 11/10/17 22:00 11/11/17 22:00 Crestor PO 2.5 mg HS BELL Administration - Patient Studies Lab Studies: Microbiology Studies 11/10/17 21:00 MRSA Culture (Admit) - Final Naris MRSA NOT DETECTED Lab Studies 11/12/17 11/12/17 11/12/17 Range/Units 08:03 06:01 06:01 WBC 7.0 (4.8-10.8) K/uL RBC 2.77 L (4.40-5.90) Mil/uL Hgb 9.1 L D (12.0-18.0) g/dL Hct 27.0 L (35.0-51.0) % MCV 97.2 H (80.0-94.0) fL MCH 32.7 H (27.0-31.0) pg MCHC 33.6 (33.0-37.0) g/dL RDW 20.8 H (11.5-14.5) % Plt Count 131 (130-400) K/uL MPV 8.4 (7.2-11.7) fL Neut % (Auto) 74.5 (50.0-75.0) % Lymph % (Auto) 10.4 L (20.0-40.0) % [place] % (Auto) 6.6 (0.0-10.0) % Eos % (Auto) 7.7 H (0.0-4.0) % Baso % (Auto) 0.8 (0.0-2.0) % Neut # (Auto) 5.2 (1.8-7.0) K/uL Lymph # (Auto) 0.7 L (1.0-4.3) K/uL [place] # (Auto) 0.5 (0.0-0.8) K/uL Eos # (Auto) 0.5 (0.0-0.7) K/uL Baso # (Auto) 0.1 (0.0-0.2) K/uL Neutrophils % (Manual) (50-75) % Band Neutrophils % (0-2) % Lymphocytes % (Manual) (20-40) % Monocytes % (Manual) (0-10) % Eosinophils % (Manual) (0-4) % Basophils % (Manual) (0-2) % Toxic Granulation Platelet Estimate (NORMAL) Polychromasia Hypochromasia (manual) Poikilocytosis (manual Anisocytosis (manual) Ovalocytes Schistocytes Sodium 137 (132-148) mmol/L Potassium 5.1 (3.6-5.2) mmol/L Chloride 97 L (98-107) mmol/L Carbon Dioxide 27 (22-30) mmol/L Anion Gap 19 (10-20) BUN 59 H (9-20) mg/dL Creatinine 3.4 H (0.8-1.5) mg/dL Est GFR ( Amer) 22 Est GFR (Non-Af Amer) 18 POC Glucose (mg/dL) 80 (65-110) mg/dL Random Glucose 70 L (75-110) mg/dL Calcium 7.9 L (8.6-10.4) mg/dl Phosphorus 4.3 (2.5-4.5) mg/dL Magnesium 2.0 (1.6-2.3) mg/dL Total Bilirubin 1.1 (0.2-1.3) mg/dL AST 37 (17-59) U/L ALT 37 (21-72) U/L Alkaline Phosphatase 129 H (38-126) U/L Total Protein 5.4 L (6.3-8.3) g/dL Albumin 2.7 L (3.5-5.0) g/dL Globulin 2.7 (2.2-3.9) gm/dL Albumin/Globulin Ratio 1.0 (1.0-2.1) Vitamin B12 (239-931) pg/mL Folate ng/mL Blood Type Antibody Screen Antibody Identification 11/11/17 11/11/17 11/11/17 Range/Units 21:04 18:00 16:03 WBC 7.0 (4.8-10.8) K/uL RBC 2.10 L (4.40-5.90) Mil/uL Hgb 6.8 L (12.0-18.0) g/dL Hct 20.3 L (35.0-51.0) % MCV 96.8 H D (80.0-94.0) fL MCH 32.4 H (27.0-31.0) pg MCHC 33.5 (33.0-37.0) g/dL RDW 22.8 H (11.5-14.5) % Plt Count 130 (130-400) K/uL MPV 7.6 (7.2-11.7) fL Neut % (Auto) 73.5 (50.0-75.0) % Lymph % (Auto) 12.2 L (20.0-40.0) % [place] % (Auto) 8.3 (0.0-10.0) % Eos % (Auto) 5.3 H (0.0-4.0) % Baso % (Auto) 0.7 (0.0-2.0) % Neut # (Auto) 5.2 (1.8-7.0) K/uL Lymph # (Auto) 0.9 L (1.0-4.3) K/uL [place] # (Auto) 0.6 (0.0-0.8) K/uL Eos # (Auto) 0.4 (0.0-0.7) K/uL Baso # (Auto) 0.1 (0.0-0.2) K/uL Neutrophils % (Manual) (50-75) % Band Neutrophils % (0-2) % Lymphocytes % (Manual) (20-40) % Monocytes % (Manual) (0-10) % Eosinophils % (Manual) (0-4) % Basophils % (Manual) (0-2) % Toxic Granulation Platelet Estimate (NORMAL) Polychromasia Hypochromasia (manual) Poikilocytosis (manual Anisocytosis (manual) Ovalocytes Schistocytes Sodium (132-148) mmol/L Potassium (3.6-5.2) mmol/L Chloride (98-107) mmol/L Carbon Dioxide (22-30) mmol/L Anion Gap (10-20) BUN (9-20) mg/dL Creatinine (0.8-1.5) mg/dL Est GFR ( Amer) Est GFR (Non-Af Amer) POC Glucose (mg/dL) 83 95 (65-110) mg/dL Random Glucose (75-110) mg/dL Calcium (8.6-10.4) mg/dl Phosphorus (2.5-4.5) mg/dL Magnesium (1.6-2.3) mg/dL Total Bilirubin (0.2-1.3) mg/dL AST (17-59) U/L ALT (21-72) U/L Alkaline Phosphatase (38-126) U/L Total Protein (6.3-8.3) g/dL Albumin (3.5-5.0) g/dL Globulin (2.2-3.9) gm/dL Albumin/Globulin Ratio (1.0-2.1) Vitamin B12 (239-931) pg/mL Folate ng/mL Blood Type Antibody Screen Antibody Identification 11/11/17 11/11/17 11/11/17 Range/Units 11:22 06:03 06:03 WBC (4.8-10.8) K/uL RBC (4.40-5.90) Mil/uL Hgb (12.0-18.0) g/dL Hct (35.0-51.0) % MCV (80.0-94.0) fL MCH (27.0-31.0) pg MCHC (33.0-37.0) g/dL RDW (11.5-14.5) % Plt Count (130-400) K/uL MPV (7.2-11.7) fL Neut % (Auto) (50.0-75.0) % Lymph % (Auto) (20.0-40.0) % [place] % (Auto) (0.0-10.0) % Eos % (Auto) (0.0-4.0) % Baso % (Auto) (0.0-2.0) % Neut # (Auto) (1.8-7.0) K/uL Lymph # (Auto) (1.0-4.3) K/uL [place] # (Auto) (0.0-0.8) K/uL Eos # (Auto) (0.0-0.7) K/uL Baso # (Auto) (0.0-0.2) K/uL Neutrophils % (Manual) 84 H (50-75) % Band Neutrophils % 1 (0-2) % Lymphocytes % (Manual) 5 L (20-40) % Monocytes % (Manual) 7 (0-10) % Eosinophils % (Manual) 1 (0-4) % Basophils % (Manual) 2 (0-2) % Toxic Granulation Present Platelet Estimate Normal (NORMAL) Polychromasia Slight Hypochromasia (manual) Slight Poikilocytosis (manual Slight Anisocytosis (manual) Moderate Ovalocytes Slight Schistocytes Slight Sodium (132-148) mmol/L Potassium (3.6-5.2) mmol/L Chloride (98-107) mmol/L Carbon Dioxide (22-30) mmol/L Anion Gap (10-20) BUN (9-20) mg/dL Creatinine (0.8-1.5) mg/dL Est GFR ( Amer) Est GFR (Non-Af Amer) POC Glucose (mg/dL) 73 (65-110) mg/dL Random Glucose (75-110) mg/dL Calcium (8.6-10.4) mg/dl Phosphorus (2.5-4.5) mg/dL Magnesium (1.6-2.3) mg/dL Total Bilirubin (0.2-1.3) mg/dL AST (17-59) U/L ALT (21-72) U/L Alkaline Phosphatase (38-126) U/L Total Protein (6.3-8.3) g/dL Albumin (3.5-5.0) g/dL Globulin (2.2-3.9) gm/dL Albumin/Globulin Ratio (1.0-2.1) Vitamin B12 644 (239-931) pg/mL Folate > 20.0 ng/mL Blood Type Antibody Screen Antibody Identification 11/10/17 Range/Units 18:35 WBC (4.8-10.8) K/uL RBC (4.40-5.90) Mil/uL Hgb (12.0-18.0) g/dL Hct (35.0-51.0) % MCV (80.0-94.0) fL MCH (27.0-31.0) pg MCHC (33.0-37.0) g/dL RDW (11.5-14.5) % Plt Count (130-400) K/uL MPV (7.2-11.7) fL Neut % (Auto) (50.0-75.0) % Lymph % (Auto) (20.0-40.0) % [place] % (Auto) (0.0-10.0) % Eos % (Auto) (0.0-4.0) % Baso % (Auto) (0.0-2.0) % Neut # (Auto) (1.8-7.0) K/uL Lymph # (Auto) (1.0-4.3) K/uL [place] # (Auto) (0.0-0.8) K/uL Eos # (Auto) (0.0-0.7) K/uL Baso # (Auto) (0.0-0.2) K/uL Neutrophils % (Manual) (50-75) % Band Neutrophils % (0-2) % Lymphocytes % (Manual) (20-40) % Monocytes % (Manual) (0-10) % Eosinophils % (Manual) (0-4) % Basophils % (Manual) (0-2) % Toxic Granulation Platelet Estimate (NORMAL) Polychromasia Hypochromasia (manual) Poikilocytosis (manual Anisocytosis (manual) Ovalocytes Schistocytes Sodium (132-148) mmol/L Potassium (3.6-5.2) mmol/L Chloride (98-107) mmol/L Carbon Dioxide (22-30) mmol/L Anion Gap (10-20) BUN (9-20) mg/dL Creatinine (0.8-1.5) mg/dL Est GFR ( Amer) Est GFR (Non-Af Amer) POC Glucose (mg/dL) (65-110) mg/dL Random Glucose (75-110) mg/dL Calcium (8.6-10.4) mg/dl Phosphorus (2.5-4.5) mg/dL Magnesium (1.6-2.3) mg/dL Total Bilirubin (0.2-1.3) mg/dL AST (17-59) U/L ALT (21-72) U/L Alkaline Phosphatase (38-126) U/L Total Protein (6.3-8.3) g/dL Albumin (3.5-5.0) g/dL Globulin (2.2-3.9) gm/dL Albumin/Globulin Ratio (1.0-2.1) Vitamin B12 (239-931) pg/mL Folate ng/mL Blood Type B POSITIVE Antibody Screen Positive Antibody Identification Anti P1 Laboratory Results - last 24 hr 11/10/17 11/11/17 11/11/17 18:35 06:03 06:03 WBC RBC Hgb Hct MCV MCH MCHC RDW Plt Count MPV Neut % (Auto) Lymph % (Auto) [place] % (Auto) Eos % (Auto) Baso % (Auto) Neut # (Auto) Lymph # (Auto) [place] # (Auto) Eos # (Auto) Baso # (Auto) Neutrophils % (Manual) 84 H Band Neutrophils % 1 Lymphocytes % (Manual) 5 L Monocytes % (Manual) 7 Eosinophils % (Manual) 1 Basophils % (Manual) 2 Toxic Granulation Present Platelet Estimate Normal Polychromasia Slight Hypochromasia (manual) Slight Poikilocytosis (manual Slight Anisocytosis (manual) Moderate Ovalocytes Slight Schistocytes Slight Sodium Potassium Chloride Carbon Dioxide Anion Gap BUN Creatinine Est GFR ( Amer) Est GFR (Non-Af Amer) POC Glucose (mg/dL) Random Glucose Calcium Phosphorus Magnesium Total Bilirubin AST ALT Alkaline Phosphatase Total Protein Albumin Globulin Albumin/Globulin Ratio Vitamin B12 644 Folate > 20.0 Blood Type B POSITIVE Antibody Screen Positive Antibody Identification Anti P1 11/11/17 11/11/17 11/11/17 11:22 16:03 18:00 WBC 7.0 RBC 2.10 L Hgb 6.8 L Hct 20.3 L MCV 96.8 H D MCH 32.4 H MCHC 33.5 RDW 22.8 H Plt Count 130 MPV 7.6 Neut % (Auto) 73.5 Lymph % (Auto) 12.2 L [place] % (Auto) 8.3 Eos % (Auto) 5.3 H Baso % (Auto) 0.7 Neut # (Auto) 5.2 Lymph # (Auto) 0.9 L [place] # (Auto) 0.6 Eos # (Auto) 0.4 Baso # (Auto) 0.1 Neutrophils % (Manual) Band Neutrophils % Lymphocytes % (Manual) Monocytes % (Manual) Eosinophils % (Manual) Basophils % (Manual) Toxic Granulation Platelet Estimate Polychromasia Hypochromasia (manual) Poikilocytosis (manual Anisocytosis (manual) Ovalocytes Schistocytes Sodium Potassium Chloride Carbon Dioxide Anion Gap BUN Creatinine Est GFR ( Amer) Est GFR (Non-Af Amer) POC Glucose (mg/dL) 73 95 Random Glucose Calcium Phosphorus Magnesium Total Bilirubin AST ALT Alkaline Phosphatase Total Protein Albumin Globulin Albumin/Globulin Ratio Vitamin B12 Folate Blood Type Antibody Screen Antibody Identification 11/11/17 11/12/17 11/12/17 21:04 06:01 06:01 WBC 7.0 RBC 2.77 L Hgb 9.1 L D Hct 27.0 L MCV 97.2 H MCH 32.7 H MCHC 33.6 RDW 20.8 H Plt Count 131 MPV 8.4 Neut % (Auto) 74.5 Lymph % (Auto) 10.4 L [place] % (Auto) 6.6 Eos % (Auto) 7.7 H Baso % (Auto) 0.8 Neut # (Auto) 5.2 Lymph # (Auto) 0.7 L [place] # (Auto) 0.5 Eos # (Auto) 0.5 Baso # (Auto) 0.1 Neutrophils % (Manual) Band Neutrophils % Lymphocytes % (Manual) Monocytes % (Manual) Eosinophils % (Manual) Basophils % (Manual) Toxic Granulation Platelet Estimate Polychromasia Hypochromasia (manual) Poikilocytosis (manual Anisocytosis (manual) Ovalocytes Schistocytes Sodium 137 Potassium 5.1 Chloride 97 L Carbon Dioxide 27 Anion Gap 19 BUN 59 H Creatinine 3.4 H Est GFR ( Amer) 22 Est GFR (Non-Af Amer) 18 POC Glucose (mg/dL) 83 Random Glucose 70 L Calcium 7.9 L Phosphorus 4.3 Magnesium 2.0 Total Bilirubin 1.1 AST 37 ALT 37 Alkaline Phosphatase 129 H Total Protein 5.4 L Albumin 2.7 L Globulin 2.7 Albumin/Globulin Ratio 1.0 Vitamin B12 Folate Blood Type Antibody Screen Antibody Identification 11/12/17 08:03 WBC RBC Hgb Hct MCV MCH MCHC RDW Plt Count MPV Neut % (Auto) Lymph % (Auto) [place] % (Auto) Eos % (Auto) Baso % (Auto) Neut # (Auto) Lymph # (Auto) [place] # (Auto) Eos # (Auto) Baso # (Auto) Neutrophils % (Manual) Band Neutrophils % Lymphocytes % (Manual) Monocytes % (Manual) Eosinophils % (Manual) Basophils % (Manual) Toxic Granulation Platelet Estimate Polychromasia Hypochromasia (manual) Poikilocytosis (manual Anisocytosis (manual) Ovalocytes Schistocytes Sodium Potassium Chloride Carbon Dioxide Anion Gap BUN Creatinine Est GFR ( Amer) Est GFR (Non-Af Amer) POC Glucose (mg/dL) 80 Random Glucose Calcium Phosphorus Magnesium Total Bilirubin AST ALT Alkaline Phosphatase Total Protein Albumin Globulin Albumin/Globulin Ratio Vitamin B12 Folate Blood Type Antibody Screen Antibody Identification Fingerstick Blood Sugar Results: 80 Critical Care Progress Note - Nutrition Nutrition: Nutrition Category Date Time Status NPO Diet [DIET] Diets 11/12/17 Breakfast Active Assessment/Plan - Assessment and Plan (Free Text) Assessment: This is a 67 year old male PMHx ESRD on HD TTS, COPD, CAD, CVA brought in from [facility] for symptomatic anemia with bradycardia and hypotension. Patient diagnosed with upper GI bleed. He is doing better after having 5 total units of pRBCs during this admission. EGD delayed because awaiting cardiac clearance. Neuro Awake, verbal Cardio Assessment: Hypotension 2/2 hypovolemia, CAD Dopamine drip Crestor 2.5 mg PO HS Cardiology on consult Awaiting cardiac clearance for EGD Pulm Saturating well GI Assessment: Upper GI bleed Liquid Diet Protonix 40 mg IV Q12H Awaiting EGD Renal Assessment: ESRD on HD TTS Nephro on consult Heme/onc Assessment: Anemia due to upper GI bleed Currently hemodynamically stable s/p 5 total units of pRBCs on this admission Prophylaxis VTE contraindicated due to GI bleed Protonix 40 mg IV Q12H Discussed with Dr. Valerio
--- NOTE | 2017-11-12 10:23 | CP.PCM.PN ---
Subjective - Date & Time of Evaluation Date of Evaluation: 11/12/17 Time of Evaluation: 10:20 - Subjective Subjective: Patient complains of nausea, no vomiting. He denies having abdominal pain. He has not had a bowel movement today, and he denies having diarrhea, rectal bleeding. EGD was postponed since diastolic BP has been low, and cardiology clearance is pending. Objective - Vital Signs/Intake and Output Vital Signs (last 24 hours): Temp Pulse Resp BP Pulse Ox 98 F 75 12 124/36 L 98 11/12/17 08:00 11/12/17 09:38 11/12/17 09:38 11/12/17 09:38 11/12/17 09:38 Intake and Output: 11/12/17 11/12/17 06:59 18:59 Intake Total 1675 0 Output Total 0 Balance 1675 0 - Medications Medications: Current Medications Acetaminophen (Tylenol 650mg/20.3ml Solution Ud) 650 mg PO Q6 PRN PRN Reason: Pain, moderate (4-7) Last Admin: 11/11/17 21:29 Dose: 650 mg Insulin Aspart (Novolog) 0 unit SC ACHS [facility] PRN Reason: Protocol Last Admin: 11/12/17 08:00 Dose: Not Given Pantoprazole Sodium (Protonix Inj) 40 mg IVP Q12 [facility] Last Admin: 11/12/17 09:45 Dose: 40 mg Rosuvastatin Calcium (Crestor) 2.5 mg PO HS [facility] Last Admin: 11/11/17 22:00 Dose: 2.5 mg - Labs Labs: 11/12/17 06:01 11/12/17 06:01 PT 11.8 SECONDS (9.7-12.2) 11/10/17 18:20 INR 1.1 11/10/17 18:20 APTT 40 SECONDS (21-34) H 11/10/17 18:20 - Constitutional Appears: No Acute Distress - Head Exam Head Exam: ATRAUMATIC, NORMOCEPHALIC - Eye Exam Eye Exam: EOMI, PERRL - Neck Exam Neck Exam: absent: Lymphadenopathy, Thyromegaly - Respiratory Exam Respiratory Exam: NORMAL BREATHING PATTERN. absent: Rales, Rhonchi, Wheezes - Cardiovascular Exam Cardiovascular Exam: REGULAR RHYTHM, +S1, +S2 - GI/Abdominal Exam GI & Abdominal Exam: Soft, Normal Bowel Sounds. absent: Tenderness, Mass, Organomegaly - Rectal Exam Rectal Exam: Deferred - Extremities Exam Extremities Exam: absent: Calf Tenderness, Pedal Edema Assessment and Plan (1) Melena Assessment & Plan: Patient had dark stools, and HGB was 6.8 on admission, 9.1 following transfusion. Agree with administering pantoprazole, holding Brilinta. EGD when patient is cleared by cardiology. Status: Acute
[2017-11-12] MEDS: Acetaminophen 650mg/20.3ml solution UD PO PRN ×2 (11:03→18:13)
--- NOTE | 2017-11-12 11:22 | CP.PCM.PN ---
Subjective - Date & Time of Evaluation Date of Evaluation: 11/12/17 Time of Evaluation: 09:00 - Subjective Subjective: seen in icu pressure betterr alert awake await cardio clearance for endo Objective - Vital Signs/Intake and Output Vital Signs (last 24 hours): Temp Pulse Resp BP Pulse Ox 98 F 75 13 127/43 L 100 11/12/17 08:00 11/12/17 11:00 11/12/17 11:00 11/12/17 10:37 11/12/17 11:00 Intake and Output: 11/12/17 11/12/17 06:59 18:59 Intake Total 1675 50 Output Total 0 Balance 1675 50 - Medications Medications: Current Medications Acetaminophen (Tylenol 650mg/20.3ml Solution Ud) 650 mg PO Q6 PRN PRN Reason: Pain, moderate (4-7) Last Admin: 11/12/17 11:03 Dose: 650 mg Gabapentin (Neurontin) 100 mg PO HS BELL Insulin Aspart (Novolog) 0 unit SC ACHS [facility] PRN Reason: Protocol Last Admin: 11/12/17 08:00 Dose: Not Given Pantoprazole Sodium (Protonix Inj) 40 mg IVP Q12 [facility] Last Admin: 11/12/17 09:45 Dose: 40 mg Rosuvastatin Calcium (Crestor) 2.5 mg PO HS [facility] Last Admin: 11/11/17 22:00 Dose: 2.5 mg - Labs Labs: 11/12/17 06:01 11/12/17 06:01 PT 11.8 SECONDS (9.7-12.2) 11/10/17 18:20 INR 1.1 11/10/17 18:20 APTT 40 SECONDS (21-34) H 11/10/17 18:20 - Constitutional Appears: Non-toxic, Chronically Ill - Head Exam Head Exam: NORMOCEPHALIC - Eye Exam Eye Exam: PERRL - ENT Exam ENT Exam: Mucous Membranes Dry - Neck Exam Neck Exam: absent: Lymphadenopathy - Respiratory Exam Respiratory Exam: Decreased Breath Sounds - Cardiovascular Exam Cardiovascular Exam: REGULAR RHYTHM - GI/Abdominal Exam GI & Abdominal Exam: Distended, Soft - Rectal Exam Rectal Exam: Deferred - Exam Exam: NORMAL INSPECTION - Extremities Exam Extremities Exam: absent: Pedal Edema - Back Exam Back Exam: absent: CVA tenderness (L), CVA tenderness (R) - Neurological Exam Neurological Exam: Alert, Awake, Oriented x3 Neuro motor strength exam: Left Upper Extremity: 0, Right Upper Extremity: 3, Left Lower Extremity: 0, Right Lower Extremity: 3 - Psychiatric Exam Psychiatric exam: Depressed Assessment and Plan (1) Anemia Status: Acute (2) Gastrointestinal hemorrhage Status: Acute (3) Acute hyperkalemia Status: Acute (4) CAD (coronary artery disease) of artery bypass graft Status: Acute (5) CHF (congestive heart failure), NYHA class III Status: Acute (6) COPD (chronic obstructive pulmonary disease) Status: Acute (7) ESRD (end stage renal disease) on dialysis Status: Acute (8) ASHD (arteriosclerotic heart disease) Status: Chronic (9) Diabetes Status: Chronic (10) History of CVA (cerebrovascular accident) Status: Chronic (11) Hypertension Status: Chronic (12) Sleep apnea Status: Chronic
--- NOTE | 2017-11-12 12:29 | CP.PCM.CON ---
History of Present Illness - History of Present Illness History of Present Illness: Palliative consult requested by Doctor Del Lindquist for goals of care discussion Patient is a 67 yo male admitted from [place] with Hypotension and bradiardia. Patient was given Atropine and IVF on field and SBP came up to 50 and HR 40. Patient was due for HD the day before it, and did not feel good, so did not have HD. Upon admission, patient was found to be anemia, Hb 6.8, received blood transfusion. Hb today 9.1. GI Doctor Cody was called on consult and rectal exam revealed hard, dark stool. It is believed there was upper GI bleed. EGD was scheduled for today, but postponed due to cardiac condition; cardiac clearance needed. PMH: ESRD with HD, CHF, COPD, major depressive disorder, CVA, left sided weakness, CAD Soc. Hx: single, never , [place] resident PMH: youngest brother from [place] Review of Systems - Constitutional Constitutional: Weakness - EENT Eyes: absent: As Per HPI, Blind Spots, Blurred Vision, Change in Vision, Decreased Night Vision, Diplopia, Discharge, Dry Eye, Exophthalmos, Floaters, Irritation, Itchy Eyes, Loss of Peripheral Vision, Pain, Photophobia, Requires Corrective Lenses, Sees Flashes, Spots in Vision, Tunnel Vision, Other Visual Disturbances, Loss of Vision, Other Ears: absent: As Per HPI, Decreased Hearing, Ear Discharge, Ear Pain, Tinnitus, Abnormal Hearing, Disequilibrium, Dizziness, Other Nose/Mouth/Throat: absent: As Per HPI, Epistaxis, Nasal Congestion, Nasal Discharge, Nasal Obstruction, Nasal Trauma, Nose Pain, Post Nasal Drip, Sinus Pain, Sinus Pressure, Bleeding Gums, Change in Voice, Dental Pain, Dry Mouth, Dysphagia, Halitosis, Hoarsness, Lip Swelling, Mouth Lesions, Mouth Pain, Odynophagia, Sore Throat, Throat Swelling, Tongue Swelling, Facial Pain, Neck Pain, Neck Mass, Other - Cardiovascular Cardiovascular: Slow Heart Rate Additional comments: BP 97/21 - Respiratory Respiratory: Cough, Chest Congestion - Gastrointestinal Gastrointestinal: absent: As Per HPI, Abdominal Pain, Belching, Bloating, Change in Bowel Habits, Change in Stool Character, Coffee Ground Emesis, Constipation, Cramping, Diarrhea, Dyspepsia, Dysphagia, Early Satiety, Excessive Flatus, Fecal Incontinence, Heartburn, Hematemesis, Hematochezia, Loose Stools, Melena, Nausea, Odynophagia, Temesmus, Vomiting, Other Additional comments: Anuria - Genitourinary Additional comments: aneuria - Musculoskeletal Musculoskeletal: Limited Range of Motion, Muscle Weakness - Integumentary Integumentary: Unusual Bruising - Neurological Neurological: Lack of Coordination, Weakness - Psychiatric Psychiatric: Depression - Hematologic/Lymphatic Hematologic: Easy Bleeding Past Patient History - Infectious Disease Hx of Infectious Diseases: None - Past Medical History & Family History Past Medical History?: Yes - Past Social History Smoking Status: Never Smoked - CARDIAC Hx Congestive Heart Failure: Yes Hx Hypertension: Yes Hx Pacemaker: Yes Hx Peripheral Edema: Yes - PULMONARY Hx Asthma: Yes Hx Chronic Obstructive Pulmonary Disease (COPD): Yes Hx Sleep Apnea: Yes - NEUROLOGICAL HX Cerebrovascular Accident: Yes (non ambulatory) - HEENT Hx HEENT Problems: Yes Hx Cataracts: Yes - RENAL Hx Chronic Kidney Disease: Yes - ENDOCRINE/METABOLIC Hx Diabetes Mellitus Type 2: Yes - HEMATOLOGICAL/ONCOLOGICAL Hx Anemia: Yes - INTEGUMENTARY Hx Dermatological Problems: Yes Other/Comment: healed sacral ulcer - MUSCULOSKELETAL/RHEUMATOLOGICAL Hx Musculoskeletal Disorders: Yes Hx Falls: Yes Hx Unsteady Gait: Yes Other/Comment: HX: MUSCLE WEAKNESS(GENERALIZED), Left sided body weakness due to CVA - GASTROINTESTINAL Hx Gastrointestinal Disorders: Yes Other/Comment: HX: DYSPHAGIA,UNSPECIFIED - GENITOURINARY/GYNECOLOGICAL Hx Genitourinary Disorders: No - PSYCHIATRIC Hx Depression: Yes ('MAJOR DEPRESSIVE DISORDER,SINGLE EPISODE,UNSPECIFIED") Hx Substance Use: No - SURGICAL HISTORY Hx Coronary Artery Bypass Graft: Yes - ANESTHESIA Hx Anesthesia: Yes Hx Anesthesia Reactions: No Hx Malignant Hyperthermia: No Meds Allergies/Adverse Reactions: Allergies Allergy/AdvReac Type Severity Reaction Status Date / Time iodine Allergy Intermediate RASH Verified 09/25/17 21:16 aspirin Allergy Verified 09/25/17 21:16 clopidogrel [From Plavix] Allergy SHORTNESS Verified 09/26/17 17:18 OF BREATH clopidogrel bisulfate Allergy UNKNOWN Verified 09/25/17 21:16 [From Plavix] penicillin G Allergy SHORTNESS Verified 09/26/17 17:18 OF BREATH Penicillins Allergy UNKNOWN Verified 09/25/17 21:16 IV DYE Allergy Uncoded 09/25/17 21:16 - Medications Medications: Current Medications Acetaminophen (Tylenol 650mg/20.3ml Solution Ud) 650 mg PO Q6 PRN PRN Reason: Pain, moderate (4-7) Last Admin: 11/12/17 11:03 Dose: 650 mg Gabapentin (Neurontin) 100 mg PO HS [facility] Insulin Aspart (Novolog) 0 unit SC ACHS [facility] PRN Reason: Protocol Last Admin: 11/12/17 08:00 Dose: Not Given Pantoprazole Sodium (Protonix Inj) 40 mg IVP Q12 [facility] Last Admin: 11/12/17 09:45 Dose: 40 mg Rosuvastatin Calcium (Crestor) 2.5 mg PO HS [facility] Last Admin: 11/11/17 22:00 Dose: 2.5 mg Physical Exam - Constitutional Appears: Chronically Ill - Head Exam Head Exam: ATRAUMATIC, NORMAL INSPECTION, NORMOCEPHALIC - Eye Exam Eye Exam: EOMI, Normal appearance, PERRL Pupil Exam: NORMAL ACCOMODATION, PERRL - ENT Exam ENT Exam: Mucous Membranes Moist, Normal Exam - Neck Exam Neck exam: Positive for: Normal Inspection - Respiratory Exam Respiratory Exam: Decreased Breath Sounds - Cardiovascular Exam Cardiovascular Exam: Bradycardia - GI/Abdominal Exam GI & Abdominal Exam: Diminished Bowel Sounds - Rectal Exam Rectal Exam: Deferred - Exam Exam: NORMAL INSPECTION - Extremities Exam Additional comments: left sided weakness - Back Exam Back exam: NORMAL INSPECTION - Neurological Exam Neurological exam: Abnormal Gait, Alert, Oriented x3 - Psychiatric Exam Psychiatric exam: Depressed - Skin Skin Exam: Normal Color, Warm Results - Vital Signs Recent Vital Signs: Last Vital Signs Temp 98.6 F 11/12/17 12:00 Pulse 76 11/12/17 11:37 Resp 14 11/12/17 11:37 BP 130/37 L 11/12/17 11:37 Pulse Ox 98 11/12/17 11:37 - Labs Result Diagrams: 11/12/17 06:01 11/12/17 06:01 Labs: Laboratory Results - last 24 hr 11/10/17 11/11/17 11/11/17 18:35 16:03 18:00 WBC 7.0 RBC 2.10 L Hgb 6.8 L Hct 20.3 L MCV 96.8 H D MCH 32.4 H MCHC 33.5 RDW 22.8 H Plt Count 130 MPV 7.6 Neut % (Auto) 73.5 Lymph % (Auto) 12.2 L [place] % (Auto) 8.3 Eos % (Auto) 5.3 H Baso % (Auto) 0.7 Neut # (Auto) 5.2 Lymph # (Auto) 0.9 L [place] # (Auto) 0.6 Eos # (Auto) 0.4 Baso # (Auto) 0.1 Sodium Potassium Chloride Carbon Dioxide Anion Gap BUN Creatinine Est GFR ( Amer) Est GFR (Non-Af Amer) POC Glucose (mg/dL) 95 Random Glucose Calcium Phosphorus Magnesium Total Bilirubin AST ALT Alkaline Phosphatase Total Protein Albumin Globulin Albumin/Globulin Ratio Blood Type B POSITIVE Antibody Screen Positive Antibody Identification Non Specific Cold Antibody 11/11/17 11/12/17 11/12/17 21:04 06:01 06:01 WBC 7.0 RBC 2.77 L Hgb 9.1 L D Hct 27.0 L MCV 97.2 H MCH 32.7 H MCHC 33.6 RDW 20.8 H Plt Count 131 MPV 8.4 Neut % (Auto) 74.5 Lymph % (Auto) 10.4 L [place] % (Auto) 6.6 Eos % (Auto) 7.7 H Baso % (Auto) 0.8 Neut # (Auto) 5.2 Lymph # (Auto) 0.7 L [place] # (Auto) 0.5 Eos # (Auto) 0.5 Baso # (Auto) 0.1 Sodium 137 Potassium 5.1 Chloride 97 L Carbon Dioxide 27 Anion Gap 19 BUN 59 H Creatinine 3.4 H Est GFR ( Amer) 22 Est GFR (Non-Af Amer) 18 POC Glucose (mg/dL) 83 Random Glucose 70 L Calcium 7.9 L Phosphorus 4.3 Magnesium 2.0 Total Bilirubin 1.1 AST 37 ALT 37 Alkaline Phosphatase 129 H Total Protein 5.4 L Albumin 2.7 L Globulin 2.7 Albumin/Globulin Ratio 1.0 Blood Type Antibody Screen Antibody Identification 11/12/17 11/12/17 08:03 11:04 WBC RBC Hgb Hct MCV MCH MCHC RDW Plt Count MPV Neut % (Auto) Lymph % (Auto) [place] % (Auto) Eos % (Auto) Baso % (Auto) Neut # (Auto) Lymph # (Auto) [place] # (Auto) Eos # (Auto) Baso # (Auto) Sodium Potassium Chloride Carbon Dioxide Anion Gap BUN Creatinine Est GFR ( Amer) Est GFR (Non-Af Amer) POC Glucose (mg/dL) 80 90 Random Glucose Calcium Phosphorus Magnesium Total Bilirubin AST ALT Alkaline Phosphatase Total Protein Albumin Globulin Albumin/Globulin Ratio Blood Type Antibody Screen Antibody Identification Assessment & Plan - Assessment and Plan (Free Text) Assessment: Palliative Consult Code status Full Code, there is no Advance Directive on chart, PPS 30% I reviewed medical records, all diagnostic studies, examined and interviewed patient in the bed. Patient is alert, oriented X 3 , speech is clear and affect that is depressed. Skin with multiple bruising, patient was on Brilinta. Breath sounds are diminished and congested. There is moist, non productive cough. Abdomen is soft , active bowel sounds. Patient is hungry after being NPO for Endo procedure, which was cancelled this morning. Patient is anuric, HD T-Th-Sat. There is left sided weakness post CVA. patient is non ambulatory and requires max assistance with ADLs. Goals of care discussed with patient. Patient admits to be feeling lonely and depressed. Patient wishes he was visited more often by his brothers and sisters. He said , the worse time at [place] is weekend, when other residents get visitors and he is not. Patient does not like [place], but also understands that he has no other options. Patient wishes to get better, continue with his HD and spend more time with his family. I supported him and suggested Palliative [employer] at [facility] that could help him there. Patient was happy to hear it. Code status further discussed. Patient said he made Living Will and his brothers and sisters " know it all". Patient elaborated that he would not want extraordinary measures to be applied to unnecessary prolong his life if meaningful recovery is not expected. When I called patient's brother Janet Salazar, he denies knowledge about the document. Impression * Chronically ill man with Hypotension and Bradicardia * Left sided weakness * Anuria due to ESRD * Clyman * Lack of family support * Depression * Lack of Advance Directive Suggestion * Monitor Hb level * Monitor for unusual bruising and bleeding * Pastoral care for spiritual support * Psych eval for management of Depression * Family meeting for Code status discussion Advance Care planing 45 min
--- NOTE | 2017-11-12 18:23 | CARD ---
APPROVED REPORT EKG Measurement Heart [id number] <Conclusion> Normal sinus rhythm Indeterminate axis Right bundle branch block Abnormal ECG
--- NOTE | 2017-11-12 20:40 | CP.PCM.CON ---
History of Present Illness - History of Present Illness History of Present Illness: EP consult Re: bradycardia and hypotension Mr. orona was admitted with a history of syncope hypotension and bradycardia minimally responsive to atropine; he was noted to have anemia and black tarry stools and is awaiting endosocopy He does report similar episodes in the past; he is non ambulant due to a left sided stroke Past medical history significant for systemic hypertension diabetes mellitus hyperlipidemia coronary artery disease coronary artery bypass surgery; end stage renal disease on dialyses; on anticoagulation ? indication Medications; reviewed Exam No distress Normal venous pressures Left hemiplegia Scars on the chest of prior central venous catheters Edema 1+ bilateral pitting EKG: sinus; trifascicular block # Junctional rhythm with wide QRS 182 ms varying axis Labs: reviewed Recurrent syncope temporally related to braydcardia; mechanism of the transient loss of consciousness is likely hemodynamically mediated (Cf. neurological or hypoglycemia) due to a bradyarrhythmia presumably spontaneous given significant underlying conduction disease; there was no setting for a vagal event A permanent pacemaker implant is a reasonable consideration; I would defer any other procedure until then; if intervention is an imperative would place a temporary transvenous pacemaker Plan Hold eliquis Venous doppler of the upper extremities/subclavian for patency Discuss with patient at length prognosis options procedures and risks including but not limited to bleeding infection pneumothorax tamponade; he verbalized understanding and assents NPO post midnight Possible Pacemaker at 1 PM Past Patient History - Infectious Disease Hx of Infectious Diseases: None - Past Medical History & Family History Past Medical History?: Yes - Past Social History Smoking Status: Never Smoked - CARDIAC Hx Congestive Heart Failure: Yes Hx Hypertension: Yes Hx Pacemaker: Yes Hx Peripheral Edema: Yes - PULMONARY Hx Asthma: Yes Hx Chronic Obstructive Pulmonary Disease (COPD): Yes Hx Sleep Apnea: Yes - NEUROLOGICAL HX Cerebrovascular Accident: Yes (non ambulatory) - HEENT Hx HEENT Problems: Yes Hx Cataracts: Yes - RENAL Hx Chronic Kidney Disease: Yes - ENDOCRINE/METABOLIC Hx Diabetes Mellitus Type 2: Yes - HEMATOLOGICAL/ONCOLOGICAL Hx Anemia: Yes - INTEGUMENTARY Hx Dermatological Problems: Yes Other/Comment: healed sacral ulcer - MUSCULOSKELETAL/RHEUMATOLOGICAL Hx Musculoskeletal Disorders: Yes Hx Falls: Yes Hx Unsteady Gait: Yes Other/Comment: HX: MUSCLE WEAKNESS(GENERALIZED), Left sided body weakness due to CVA - GASTROINTESTINAL Hx Gastrointestinal Disorders: Yes Other/Comment: HX: DYSPHAGIA,UNSPECIFIED - GENITOURINARY/GYNECOLOGICAL Hx Genitourinary Disorders: No - PSYCHIATRIC Hx Depression: Yes ('MAJOR DEPRESSIVE DISORDER,SINGLE EPISODE,UNSPECIFIED") Hx Substance Use: No - SURGICAL HISTORY Hx Coronary Artery Bypass Graft: Yes - ANESTHESIA Hx Anesthesia: Yes Hx Anesthesia Reactions: No Hx Malignant Hyperthermia: No Meds Allergies/Adverse Reactions: Allergies Allergy/AdvReac Type Severity Reaction Status Date / Time iodine Allergy Intermediate RASH Verified 09/25/17 21:16 aspirin Allergy Verified 09/25/17 21:16 clopidogrel [From Plavix] Allergy SHORTNESS Verified 09/26/17 17:18 OF BREATH clopidogrel bisulfate Allergy UNKNOWN Verified 09/25/17 21:16 [From Plavix] penicillin G Allergy SHORTNESS Verified 09/26/17 17:18 OF BREATH Penicillins Allergy UNKNOWN Verified 09/25/17 21:16 IV DYE Allergy Uncoded 09/25/17 21:16 - Medications Medications: Current Medications Acetaminophen (Tylenol 650mg/20.3ml Solution Ud) 650 mg PO Q6 PRN PRN Reason: Pain, moderate (4-7) Last Admin: 11/12/17 18:13 Dose: 650 mg Gabapentin (Neurontin) 100 mg PO HS [facility] Insulin Aspart (Novolog) 0 unit SC ACHS [facility] PRN Reason: Protocol Last Admin: 11/12/17 16:06 Dose: Not Given Pantoprazole Sodium (Protonix Inj) 40 mg IVP Q12 [facility] Last Admin: 11/12/17 09:45 Dose: 40 mg Rosuvastatin Calcium (Crestor) 2.5 mg PO HS [facility] Last Admin: 11/11/17 22:00 Dose: 2.5 mg Results - Vital Signs Recent Vital Signs: Last Vital Signs Temp 97.8 F 11/12/17 16:00 Pulse 71 11/12/17 20:05 Resp 13 11/12/17 20:05 BP 131/39 L 11/12/17 20:05 Pulse Ox 100 11/12/17 20:05 - Labs Result Diagrams: 11/12/17 06:01 11/12/17 06:01 Labs: Laboratory Results - last 24 hr 11/10/17 11/11/17 11/12/17 18:35 21:04 06:01 WBC 7.0 RBC 2.77 L Hgb 9.1 L D Hct 27.0 L MCV 97.2 H MCH 32.7 H MCHC 33.6 RDW 20.8 H Plt Count 131 MPV 8.4 Neut % (Auto) 74.5 Lymph % (Auto) 10.4 L [place] % (Auto) 6.6 Eos % (Auto) 7.7 H Baso % (Auto) 0.8 Neut # (Auto) 5.2 Lymph # (Auto) 0.7 L [place] # (Auto) 0.5 Eos # (Auto) 0.5 Baso # (Auto) 0.1 Sodium Potassium Chloride Carbon Dioxide Anion Gap BUN Creatinine Est GFR ( Amer) Est GFR (Non-Af Amer) POC Glucose (mg/dL) 83 Random Glucose Calcium Phosphorus Magnesium Total Bilirubin AST ALT Alkaline Phosphatase Total Protein Albumin Globulin Albumin/Globulin Ratio Blood Type B POSITIVE Antibody Screen Positive Antibody Identification Non Specific Cold Antibody 11/12/17 11/12/17 11/12/17 06:01 08:03 11:04 WBC RBC Hgb Hct MCV MCH MCHC RDW Plt Count MPV Neut % (Auto) Lymph % (Auto) [place] % (Auto) Eos % (Auto) Baso % (Auto) Neut # (Auto) Lymph # (Auto) [place] # (Auto) Eos # (Auto) Baso # (Auto) Sodium 137 Potassium 5.1 Chloride 97 L Carbon Dioxide 27 Anion Gap 19 BUN 59 H Creatinine 3.4 H Est GFR ( Amer) 22 Est GFR (Non-Af Amer) 18 POC Glucose (mg/dL) 80 90 Random Glucose 70 L Calcium 7.9 L Phosphorus 4.3 Magnesium 2.0 Total Bilirubin 1.1 AST 37 ALT 37 Alkaline Phosphatase 129 H Total Protein 5.4 L Albumin 2.7 L Globulin 2.7 Albumin/Globulin Ratio 1.0 Blood Type Antibody Screen Antibody Identification 11/12/17 16:03 WBC RBC Hgb Hct MCV MCH MCHC RDW Plt Count MPV Neut % (Auto) Lymph % (Auto) [place] % (Auto) Eos % (Auto) Baso % (Auto) Neut # (Auto) Lymph # (Auto) [place] # (Auto) Eos # (Auto) Baso # (Auto) Sodium Potassium Chloride Carbon Dioxide Anion Gap BUN Creatinine Est GFR ( Amer) Est GFR (Non-Af Amer) POC Glucose (mg/dL) 94 Random Glucose Calcium Phosphorus Magnesium Total Bilirubin AST ALT Alkaline Phosphatase Total Protein Albumin Globulin Albumin/Globulin Ratio Blood Type Antibody Screen Antibody Identification Assessment & Plan - Assessment and Plan (Free Text) Assessment: Recurrent syncope temporally related to braydcardia; mechanism of the transient loss of consciousness is likely hemodynamically mediated (Cf. neurological or hypoglycemia) due to a bradyarrhythmia presumably spontaneous given significant underlying conduction disease; there was no setting for a vagal event A permanent pacemaker implant is a reasonable consideration; I would defer any other procedure until then; if intervention is an imperative would place a temporary transvenous pacemaker Plan: Plan Hold eliquis Venous doppler of the upper extremities/subclavian for patency Discuss with patient at length prognosis options procedures and risks including but not limited to bleeding infection pneumothorax tamponade; he verbalized understanding and assents NPO post midnight Possible Pacemaker at 1 PM - Date & Time Date: 11/12/17 Time: 20:42
[2017-11-12] MEDS: Rosuvastatin Calcium 2.5 mg Tab PO SCH (21:37)
--- NOTE | 2017-11-13 00:24 | CP.PCM.CON ---
History of Present Illness - History of Present Illness History of Present Illness: Reason for consultation: syncope HPI: 67 year old male, well-known to me, whose PMHx includes ESRD, is brought to the ED by ambulance after being sent from [facility] for evaluation of hypotension and bradycardia noted today. Patient attends dialysis on Sunday, and Sunday, but was unable to attend today because he was feeling tired and weak. Patient was given Atropine and IV fluids by EMS for systolic blood pressure in 50s and heart rate in 40s with mild improvement. Patient denies vomiting. Patient was found to be severely anemic. On interrogation of loop recorder, patient was found to have periods of severe bradycardia and multiple 3-second pauses. 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 Pt is on Eliquis due to previous episodes of paroxysmal atrial fibrillation which was the culprit of his multiple CVA. Review of Systems - Constitutional Constitutional: Snoring, Sleep Apnea, Weight Loss - EENT Ears: Dizziness - Cardiovascular Cardiovascular: Irregular Heart Rhythm. absent: Chest Pain - Respiratory Respiratory: Dyspnea on Exertion - Gastrointestinal Gastrointestinal: absent: Abdominal Pain - Musculoskeletal Musculoskeletal: Atrophy - Neurological Neurological: Focal Weakness, Paresthesias Additional comments: bed-bound Past Patient History - Infectious Disease Hx of Infectious Diseases: None - Past Medical History & Family History Past Medical History?: Yes - Past Social History Smoking Status: Never Smoked - CARDIAC Hx Congestive Heart Failure: Yes Hx Hypertension: Yes Hx Pacemaker: Yes Hx Peripheral Edema: Yes - PULMONARY Hx Asthma: Yes Hx Chronic Obstructive Pulmonary Disease (COPD): Yes Hx Sleep Apnea: Yes - NEUROLOGICAL HX Cerebrovascular Accident: Yes (non ambulatory) - HEENT Hx HEENT Problems: Yes Hx Cataracts: Yes - RENAL Hx Chronic Kidney Disease: Yes - ENDOCRINE/METABOLIC Hx Diabetes Mellitus Type 2: Yes - HEMATOLOGICAL/ONCOLOGICAL Hx Anemia: Yes - INTEGUMENTARY Hx Dermatological Problems: Yes Other/Comment: healed sacral ulcer - MUSCULOSKELETAL/RHEUMATOLOGICAL Hx Musculoskeletal Disorders: Yes Hx Falls: Yes Hx Unsteady Gait: Yes Other/Comment: HX: MUSCLE WEAKNESS(GENERALIZED), Left sided body weakness due to CVA - GASTROINTESTINAL Hx Gastrointestinal Disorders: Yes Other/Comment: HX: DYSPHAGIA,UNSPECIFIED - GENITOURINARY/GYNECOLOGICAL Hx Genitourinary Disorders: No - PSYCHIATRIC Hx Depression: Yes ('MAJOR DEPRESSIVE DISORDER,SINGLE EPISODE,UNSPECIFIED") Hx Substance Use: No - SURGICAL HISTORY Hx Coronary Artery Bypass Graft: Yes - ANESTHESIA Hx Anesthesia: Yes Hx Anesthesia Reactions: No Hx Malignant Hyperthermia: No Meds Allergies/Adverse Reactions: Allergies Allergy/AdvReac Type Severity Reaction Status Date / Time iodine Allergy Intermediate RASH Verified 09/25/17 21:16 aspirin Allergy Verified 09/25/17 21:16 clopidogrel [From Plavix] Allergy SHORTNESS Verified 09/26/17 17:18 OF BREATH clopidogrel bisulfate Allergy UNKNOWN Verified 09/25/17 21:16 [From Plavix] penicillin G Allergy SHORTNESS Verified 09/26/17 17:18 OF BREATH Penicillins Allergy UNKNOWN Verified 09/25/17 21:16 IV DYE Allergy Uncoded 09/25/17 21:16 - Medications Medications: Current Medications Acetaminophen (Tylenol 650mg/20.3ml Solution Ud) 650 mg PO Q6 PRN PRN Reason: Pain, moderate (4-7) Last Admin: 11/12/17 18:13 Dose: 650 mg Gabapentin (Neurontin) 100 mg PO HS BELL Last Admin: 11/12/17 21:24 Dose: 100 mg Insulin Aspart (Novolog) 0 unit SC ACHS BELL PRN Reason: Protocol Last Admin: 11/12/17 21:21 Dose: Not Given Pantoprazole Sodium (Protonix Inj) 40 mg IVP Q12 BELL Last Admin: 11/12/17 21:23 Dose: 40 mg Rosuvastatin Calcium (Crestor) 2.5 mg PO HS BELL Last Admin: 11/12/17 21:37 Dose: 2.5 mg Zolpidem Tartrate (Ambien) 5 mg PO HS PRN PRN Reason: Insomnia Last Admin: 11/12/17 21:29 Dose: 5 mg Physical Exam - Constitutional Appears: Non-toxic - Head Exam Head Exam: absent: NORMAL INSPECTION - Eye Exam Eye Exam: absent: Scleral icterus - ENT Exam ENT Exam: Mucous Membranes Moist - Neck Exam Neck exam: Positive for: Full Rom, Lymphadenopathy - Respiratory Exam Respiratory Exam: NORMAL BREATHING PATTERN - Cardiovascular Exam Cardiovascular Exam: REGULAR RHYTHM - GI/Abdominal Exam GI & Abdominal Exam: Soft - Extremities Exam Extremities exam: Negative for: calf tenderness, pedal edema Results - Vital Signs Recent Vital Signs: Last Vital Signs Temp 97.7 F 11/12/17 20:00 Pulse 70 11/12/17 23:06 Resp 15 11/12/17 23:06 BP 103/26 L 11/12/17 23:07 Pulse Ox 97 11/12/17 23:06 - Labs Result Diagrams: 11/12/17 06:01 11/12/17 06:01 Labs: Laboratory Results - last 24 hr 11/10/17 11/12/17 11/12/17 18:35 06:01 06:01 WBC 7.0 RBC 2.77 L Hgb 9.1 L D Hct 27.0 L MCV 97.2 H MCH 32.7 H MCHC 33.6 RDW 20.8 H Plt Count 131 MPV 8.4 Neut % (Auto) 74.5 Lymph % (Auto) 10.4 L Coles % (Auto) 6.6 Eos % (Auto) 7.7 H Baso % (Auto) 0.8 Neut # (Auto) 5.2 Lymph # (Auto) 0.7 L Coles # (Auto) 0.5 Eos # (Auto) 0.5 Baso # (Auto) 0.1 Sodium 137 Potassium 5.1 Chloride 97 L Carbon Dioxide 27 Anion Gap 19 BUN 59 H Creatinine 3.4 H Est GFR ( Amer) 22 Est GFR (Non-Af Amer) 18 POC Glucose (mg/dL) Random Glucose 70 L Calcium 7.9 L Phosphorus 4.3 Magnesium 2.0 Total Bilirubin 1.1 AST 37 ALT 37 Alkaline Phosphatase 129 H Total Protein 5.4 L Albumin 2.7 L Globulin 2.7 Albumin/Globulin Ratio 1.0 Antibody Identification Non Specific Cold Antibody 11/12/17 11/12/17 11/12/17 08:03 11:04 16:03 WBC RBC Hgb Hct MCV MCH MCHC RDW Plt Count MPV Neut % (Auto) Lymph % (Auto) Coles % (Auto) Eos % (Auto) Baso % (Auto) Neut # (Auto) Lymph # (Auto) Coles # (Auto) Eos # (Auto) Baso # (Auto) Sodium Potassium Chloride Carbon Dioxide Anion Gap BUN Creatinine Est GFR ( Amer) Est GFR (Non-Af Amer) POC Glucose (mg/dL) 80 90 94 Random Glucose Calcium Phosphorus Magnesium Total Bilirubin AST ALT Alkaline Phosphatase Total Protein Albumin Globulin Albumin/Globulin Ratio Antibody Identification 11/12/17 21:10 WBC RBC Hgb Hct MCV MCH MCHC RDW Plt Count MPV Neut % (Auto) Lymph % (Auto) Coles % (Auto) Eos % (Auto) Baso % (Auto) Neut # (Auto) Lymph # (Auto) Coles # (Auto) Eos # (Auto) Baso # (Auto) Sodium Potassium Chloride Carbon Dioxide Anion Gap BUN Creatinine Est GFR ( Amer) Est GFR (Non-Af Amer) POC Glucose (mg/dL) 80 Random Glucose Calcium Phosphorus Magnesium Total Bilirubin AST ALT Alkaline Phosphatase Total Protein Albumin Globulin Albumin/Globulin Ratio Antibody Identification Assessment & Plan - Assessment and Plan (Free Text) Assessment: Syncope probably secondary to conduction defect and Sick sinus syndrome Hypotension secondary to severe anemia GI bleed CAD T2dm ESRD Plan: PPM implant - discussed with EP, DR Veras Endoscopy to follow PPM implant Transfusion as needed
--- NOTE | 2017-11-13 01:21 | PN ---
DATE: 11/12/2017 FOLLOWUP RENAL CONSULTATION LOCATION: The patient is located in ICU, bed 9. REQUESTED BY: Fabiano Rodas MD REASON FOR FOLLOWUP: End-stage renal disease, anemia with GI bleed, and for continuation of hemodialysis. HISTORY OF PRESENT ILLNESS: Ms. Gonzales is a 67-year-old elderly [place] male with a past medical history significant for longstanding hypertension, diabetes, CHF, questionable COPD, coronary artery disease, status post CABG, CVA with left-sided weakness, history of bleeding from AV graft, and on Eliquis in the past who was admitted from the [facility] with chief complaints of hypotension, altered mental status, and found to have severe anemia. Hemoglobin 4, hematocrit is about 13, and bradycardia, requiring admission to ICU, status post transfusion of 3 units of packed RBCs on Sunday night and also hemodialysis for hyperkalemia. The patient was found to have a low H and H again yesterday, about hemoglobin 6.8 and transfused 2 units of packed RBCs last night. The patient is feeling better, not in acute distress. Denies any headache, dizziness. Denies any chest pain or palpitation. Denies any fever or cough. No abdominal pain. No nausea, vomiting, or diarrhea. The patient is n.p.o. PHYSICAL EXAMINATION: VITAL SIGNS: This morning as follows: Blood pressure 104/27, pulse 73, respirations 13, temperature 98, saturation 100%. Height 5 feet 7 inches, weight is 203 pounds. GENERAL: Mr. Gonzales is a 67-year-old male, moderately built, moderately nourished, not in distress. HEENT: Pupils normal and reactive to light and accommodation. Conjunctivae pink. Sclerae anicteric. Tongue is moist. Trachea is midline. LUNGS: Symmetric on both sides. Bilateral breath sounds present. Clear to auscultation. CVS: [place] at the fifth intercostal space, midclavicular line. S1, S2 audible. No murmur or gallop. ABDOMEN: Normal in appearance, soft, tympanic. No guarding. No rigidity. No hepatosplenomegaly. 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 Nonfocal neuro examination except left-sided weakness. EXTREMITIES: No cyanosis, no clubbing; 1+ edema in both lower extremities. MEDICATIONS: His current medications include as follows this morning: Crestor 2.5 mg at bedtime, gabapentin 100 mg p.o. at bedtime, NovoLog for sliding scale, Protonix 40 mg IV every 12 hours, Tylenol 650 mg p.o. every 6 hours p.r.n. LABORATORY DATA: His laboratory data include as follows. As of 11/11/2017, WBC 7, hemoglobin 6.8, hematocrit is 20.3, platelets 130. As of 11/12/2017, WBC 7, hemoglobin 9.1, hematocrit is 27, platelets 131. Sodium 137, potassium 5.1, chloride 97, CO2 27, BUN 59, creatinine 3.4, glucose 70, calcium 7.9, phosphorus 4.3, magnesium is 2, total bili 1.1, AST 37, ALT 37, alkaline phosphatase 129, total protein 5.4, albumin is 2.7. Blood culture x2 negative and MRSA screening was negative. IMPRESSION: In summary, Mr. Gonzales is a 67-year-old elderly [place] male with hypertension, diabetes, coronary artery disease, status post coronary artery bypass graft, end-stage renal disease, cerebrovascular accident with left-sided weakness, who was admitted with severe anemia, hypotension, bradycardia with a hemoglobin of 4 and hematocrit of 13, status post transfusion of 3 units of packed red blood cells on Sunday with hemodialysis and also transfusion of 2 units of packed red blood cells again on Sunday night. Now hemoglobin and hematocrit are stable. 1. End-stage renal disease. Continue hemodialysis three times a week; Sunday, , Sunday. 2. Anemia secondary to severe gastrointestinal bleed, status post transfusion of 5 units of packed red blood cells since admission. 3. Hypertension. Blood pressure is stable. 4. Diabetes. Continue to monitor Accu-Cheks and adjust insulin coverage as needed. 5. Continue to monitor complete blood count as per Intensive Care Unit Team and also follow up with Gastroenterology for endoscopy. We will follow with you. Thank you for allowing me to participate in your patient's care. We will schedule for hemodialysis in a.m. Discussed with ICU attending, Dr. Sarmad Valerio, in rounds. Martin Ortiz MD
[2017-11-13 06:14] LABS: BASO % 0.4 % (0.0-2.0); EOS # 0.9 K/uL (0.0-0.7); EOS % 14.9 % (0.0-4.0); HEMOGLOBIN 9.3 g/dL (12.0-18.0); LYMPH # 0.9 K/uL (1.0-4.3); LYMPH % 16.4 % (20.0-40.0); MEAN CELL VOLUME 97.4 fL (80.0-94.0); MEAN CORPUSCULAR HEMOGLOBIN 32.2 pg (27.0-31.0); MEAN CORPUSCULAR HGB CONC 33.1 g/dL (33.0-37.0); MEAN PLATELET VOLUME 8.1 fL (7.2-11.7); MONO # 0.5 K/uL (0.0-0.8); MONO % 9.6 % (0.0-10.0); NEUT # 3.3 K/uL (1.8-7.0); NEUT % 58.7 % (50.0-75.0); NRBC % 0.4 % (0.0-2.0); RBC 2.89 Mil/uL (4.40-5.90); WHITE BLOOD COUNT 5.7 K/uL (4.8-10.8)
[2017-11-13 06:39] LABS: ALB/GLOB RATIO 0.9 (1.0-2.1); ALBUMIN 2.8 g/dL (3.5-5.0); CALCIUM 8.8 mg/dl (8.6-10.4)
[2017-11-13] MEDS ORDERED: Morphine 4 MG/ML VIAL IV ONE (07:22)
[2017-11-13] MEDS: (Novolog) Insulin Aspart, Recombinant 100 u/ml 10 ml vial SC SCH ×4 (08:14→21:20)
[2017-11-13] MEDS ORDERED: Albumin Human 25% (12.5 gm/50 ml) IV ONE ×2 (08:47→09:12)
--- NOTE | 2017-11-13 08:57 | CP.CCUPN ---
<Aleks Spicer - Last Filed: 11/13/17 10:42> CCU Subjective - Physician Review Subjective (Free Text): 11/12/17 08:58 Patient seen and examined. Patient reports poor sleep last night and is complaining of hunger. It was explained that he's NPO for his EGD today. 11/13/17 08:52 Patient seen and examined. Patient getting dialysis treatment at the moment. No acute complaints. Patient NPO for possible pacemaker later today. CCU Objective - Vital Signs / Intake & Output Vital Signs (Last 4 hours): Vital Signs Temp Pulse Resp BP BP Pulse Ox 11/13/17 08:35 87/28 L 11/13/17 08:20 91/32 L 11/13/17 08:05 132/29 L 11/13/17 08:00 70 13 100 11/13/17 07:53 69 11 L 135/38 L 100 11/13/17 07:50 97.4 F L 13 135/38 L 100 11/13/17 07:40 97.4 F L 69 13 126/32 L 11/13/17 07:06 70 16 126/32 L 100 11/13/17 06:31 72 24 126/27 L 100 11/13/17 06:30 72 19 100 11/13/17 06:07 133/28 L 11/13/17 06:00 71 14 100 11/13/17 05:05 132/30 L 11/13/17 05:00 70 17 100 Intake and Output (Last 8hrs): Intake & Output 11/12/17 11/13/17 11/13/17 22:59 06:59 14:59 Intake Total 340 0 Balance 340 0 Weight 208 lb 8 oz Intake: Oral 340 0 - Physical Exam Head: Positive for: Atraumatic, Normocephalic Pupils: Positive for: PERRL Extroacular Muscles: Positive for: EOMI Conjunctiva: Positive for: Normal Mouth: Positive for: Moist Mucous Membranes Respiratory/Chest: Positive for: Clear to Auscultation, Good Air Exchange Cardiovascular: Positive for: Regular Rate and Rhythm Upper Extremity: Positive for: Normal Inspection Lower Extremity: Positive for: Normal Inspection Neurological: Positive for: GCS=15, CN II-XII Intact Skin: Positive for: Warm, Dry Psychiatric: Positive for: Alert, Oriented x 3 - Medications Active Medications: Active Medications Generic Name Dose Route Start Last Admin Trade Name Freq PRN Reason Stop Dose Admin Acetaminophen 650 mg 11/11/17 08:54 11/12/17 18:13 Tylenol 650mg/20.3ml Solution Ud PO 650 mg Q6 PRN Administration Pain, moderate (4-7) Gabapentin 100 mg 11/12/17 22:00 11/12/17 21:24 Neurontin PO 100 mg HS BELL Administration Insulin Aspart 0 unit 11/12/17 07:30 11/13/17 08:14 Novolog SC Not Given ACHS BELL Protocol Pantoprazole Sodium 40 mg 11/11/17 11:15 11/12/17 21:23 Protonix Inj IVP 40 mg Q12 BELL Administration Rosuvastatin Calcium 2.5 mg 11/10/17 22:00 11/12/17 21:37 Crestor PO 2.5 mg HS BELL Administration Zolpidem Tartrate 5 mg 11/12/17 20:57 11/12/17 21:29 Ambien PO 5 mg HS PRN Administration Insomnia - Patient Studies Lab Studies: Microbiology Studies 11/10/17 18:17 Blood Culture - Preliminary Blood NO GROWTH AFTER 24 HOURS 11/10/17 18:17 Blood Culture - Preliminary Blood NO GROWTH AFTER 24 HOURS Lab Studies 11/13/17 11/13/17 11/13/17 Range/Units 07:15 06:07 06:06 WBC 5.7 (4.8-10.8) K/uL RBC 2.89 L (4.40-5.90) Mil/uL Hgb 9.3 L (12.0-18.0) g/dL Hct 28.1 L (35.0-51.0) % MCV 97.4 H (80.0-94.0) fL MCH 32.2 H (27.0-31.0) pg MCHC 33.1 (33.0-37.0) g/dL RDW 21.0 H (11.5-14.5) % Plt Count 126 L (130-400) K/uL MPV 8.1 (7.2-11.7) fL Neut % (Auto) 58.7 (50.0-75.0) % Lymph % (Auto) 16.4 L (20.0-40.0) % [place] % (Auto) 9.6 (0.0-10.0) % Eos % (Auto) 14.9 H (0.0-4.0) % Baso % (Auto) 0.4 (0.0-2.0) % Neut # (Auto) 3.3 (1.8-7.0) K/uL Lymph # (Auto) 0.9 L (1.0-4.3) K/uL [place] # (Auto) 0.5 (0.0-0.8) K/uL Eos # (Auto) 0.9 H (0.0-0.7) K/uL Baso # (Auto) 0.0 (0.0-0.2) K/uL Sodium 137 (132-148) mmol/L Potassium 5.7 H (3.6-5.2) mmol/L Chloride 97 L (98-107) mmol/L Carbon Dioxide 26 (22-30) mmol/L Anion Gap 20 (10-20) BUN 67 H (9-20) mg/dL Creatinine 4.7 H (0.8-1.5) mg/dL Est GFR ( Amer) 15 Est GFR (Non-Af Amer) 13 POC Glucose (mg/dL) 93 (65-110) mg/dL Random Glucose 81 (75-110) mg/dL Calcium 8.8 (8.6-10.4) mg/dl Phosphorus 5.8 H (2.5-4.5) mg/dL Magnesium 2.4 H (1.6-2.3) mg/dL Total Bilirubin 0.8 (0.2-1.3) mg/dL AST 28 (17-59) U/L ALT 30 (21-72) U/L Alkaline Phosphatase 131 H (38-126) U/L Total Protein 5.8 L (6.3-8.3) g/dL Albumin 2.8 L (3.5-5.0) g/dL Globulin 3.0 (2.2-3.9) gm/dL Albumin/Globulin Ratio 0.9 L (1.0-2.1) Antibody Identification 11/12/17 11/12/17 11/12/17 Range/Units 21:10 16:03 11:04 WBC (4.8-10.8) K/uL RBC (4.40-5.90) Mil/uL Hgb (12.0-18.0) g/dL Hct (35.0-51.0) % MCV (80.0-94.0) fL MCH (27.0-31.0) pg MCHC (33.0-37.0) g/dL RDW (11.5-14.5) % Plt Count (130-400) K/uL MPV (7.2-11.7) fL Neut % (Auto) (50.0-75.0) % Lymph % (Auto) (20.0-40.0) % [place] % (Auto) (0.0-10.0) % Eos % (Auto) (0.0-4.0) % Baso % (Auto) (0.0-2.0) % Neut # (Auto) (1.8-7.0) K/uL Lymph # (Auto) (1.0-4.3) K/uL [place] # (Auto) (0.0-0.8) K/uL Eos # (Auto) (0.0-0.7) K/uL Baso # (Auto) (0.0-0.2) K/uL Sodium (132-148) mmol/L Potassium (3.6-5.2) mmol/L Chloride (98-107) mmol/L Carbon Dioxide (22-30) mmol/L Anion Gap (10-20) BUN (9-20) mg/dL Creatinine (0.8-1.5) mg/dL Est GFR ( Amer) Est GFR (Non-Af Amer) POC Glucose (mg/dL) 80 94 90 (65-110) mg/dL Random Glucose (75-110) mg/dL Calcium (8.6-10.4) mg/dl Phosphorus (2.5-4.5) mg/dL Magnesium (1.6-2.3) mg/dL Total Bilirubin (0.2-1.3) mg/dL AST (17-59) U/L ALT (21-72) U/L Alkaline Phosphatase (38-126) U/L Total Protein (6.3-8.3) g/dL Albumin (3.5-5.0) g/dL Globulin (2.2-3.9) gm/dL Albumin/Globulin Ratio (1.0-2.1) Antibody Identification 11/10/17 Range/Units 18:35 WBC (4.8-10.8) K/uL RBC (4.40-5.90) Mil/uL Hgb (12.0-18.0) g/dL Hct (35.0-51.0) % MCV (80.0-94.0) fL MCH (27.0-31.0) pg MCHC (33.0-37.0) g/dL RDW (11.5-14.5) % Plt Count (130-400) K/uL MPV (7.2-11.7) fL Neut % (Auto) (50.0-75.0) % Lymph % (Auto) (20.0-40.0) % [place] % (Auto) (0.0-10.0) % Eos % (Auto) (0.0-4.0) % Baso % (Auto) (0.0-2.0) % Neut # (Auto) (1.8-7.0) K/uL Lymph # (Auto) (1.0-4.3) K/uL [place] # (Auto) (0.0-0.8) K/uL Eos # (Auto) (0.0-0.7) K/uL Baso # (Auto) (0.0-0.2) K/uL Sodium (132-148) mmol/L Potassium (3.6-5.2) mmol/L Chloride (98-107) mmol/L Carbon Dioxide (22-30) mmol/L Anion Gap (10-20) BUN (9-20) mg/dL Creatinine (0.8-1.5) mg/dL Est GFR ( Amer) Est GFR (Non-Af Amer) POC Glucose (mg/dL) (65-110) mg/dL Random Glucose (75-110) mg/dL Calcium (8.6-10.4) mg/dl Phosphorus (2.5-4.5) mg/dL Magnesium (1.6-2.3) mg/dL Total Bilirubin (0.2-1.3) mg/dL AST (17-59) U/L ALT (21-72) U/L Alkaline Phosphatase (38-126) U/L Total Protein (6.3-8.3) g/dL Albumin (3.5-5.0) g/dL Globulin (2.2-3.9) gm/dL Albumin/Globulin Ratio (1.0-2.1) Antibody Identification Non Specific Cold Antibody Laboratory Results - last 24 hr 11/10/17 11/12/17 11/12/17 18:35 11:04 16:03 WBC RBC Hgb Hct MCV MCH MCHC RDW Plt Count MPV Neut % (Auto) Lymph % (Auto) [place] % (Auto) Eos % (Auto) Baso % (Auto) Neut # (Auto) Lymph # (Auto) [place] # (Auto) Eos # (Auto) Baso # (Auto) Sodium Potassium Chloride Carbon Dioxide Anion Gap BUN Creatinine Est GFR ( Amer) Est GFR (Non-Af Amer) POC Glucose (mg/dL) 90 94 Random Glucose Calcium Phosphorus Magnesium Total Bilirubin AST ALT Alkaline Phosphatase Total Protein Albumin Globulin Albumin/Globulin Ratio Antibody Identification Non Specific Cold Antibody 11/12/17 11/13/17 11/13/17 21:10 06:06 06:07 WBC 5.7 RBC 2.89 L Hgb 9.3 L Hct 28.1 L MCV 97.4 H MCH 32.2 H MCHC 33.1 RDW 21.0 H Plt Count 126 L MPV 8.1 Neut % (Auto) 58.7 Lymph % (Auto) 16.4 L [place] % (Auto) 9.6 Eos % (Auto) 14.9 H Baso % (Auto) 0.4 Neut # (Auto) 3.3 Lymph # (Auto) 0.9 L [place] # (Auto) 0.5 Eos # (Auto) 0.9 H Baso # (Auto) 0.0 Sodium 137 Potassium 5.7 H Chloride 97 L Carbon Dioxide 26 Anion Gap 20 BUN 67 H Creatinine 4.7 H Est GFR ( Amer) 15 Est GFR (Non-Af Amer) 13 POC Glucose (mg/dL) 80 Random Glucose 81 Calcium 8.8 Phosphorus 5.8 H Magnesium 2.4 H Total Bilirubin 0.8 AST 28 ALT 30 Alkaline Phosphatase 131 H Total Protein 5.8 L Albumin 2.8 L Globulin 3.0 Albumin/Globulin Ratio 0.9 L Antibody Identification 11/13/17 07:15 WBC RBC Hgb Hct MCV MCH MCHC RDW Plt Count MPV Neut % (Auto) Lymph % (Auto) [place] % (Auto) Eos % (Auto) Baso % (Auto) Neut # (Auto) Lymph # (Auto) [place] # (Auto) Eos # (Auto) Baso # (Auto) Sodium Potassium Chloride Carbon Dioxide Anion Gap BUN Creatinine Est GFR ( Amer) Est GFR (Non-Af Amer) POC Glucose (mg/dL) 93 Random Glucose Calcium Phosphorus Magnesium Total Bilirubin AST ALT Alkaline Phosphatase Total Protein Albumin Globulin Albumin/Globulin Ratio Antibody Identification Fingerstick Blood Sugar Results: 93 Critical Care Progress Note - Nutrition Nutrition: Nutrition Category Date Time Status NPO Diet [DIET] Diets 11/13/17 Breakfast Active Assessment/Plan - Assessment and Plan (Free Text) Assessment: This is a 67 year old male PMHx ESRD on HD TTS, COPD, CAD, CVA brought in from group home for symptomatic anemia with bradycardia and hypotension. Patient diagnosed with upper GI bleed. He is doing better after having 5 total units of pRBCs during this admission. EGD delayed because awaiting cardiac clearance. Before patient can be cleared from cardiology, he will require pacemaker placement. He is NPO for PPM. Neuro Awake, verbal Cardio Assessment: Hypotension 2/2 hypovolemia, CAD Crestor 2.5 mg PO HS Cardiology on consult EP on consult--possible PPM later today Awaiting cardiac clearance for EGD Pulm Saturating well GI Assessment: Upper GI bleed Liquid Diet but NPO for PPM Protonix 40 mg IV Q12H Awaiting EGD Renal Assessment: ESRD on HD TTS Nephro on consult, HD initated TTS Heme/onc Assessment: Anemia due to upper GI bleed Currently hemodynamically stable s/p 5 total units of pRBCs on this admission Prophylaxis VTE contraindicated due to GI bleed Protonix 40 mg IV Q12H Discussed with Dr. Frausto <Joey Frausto S - Last Filed: 11/13/17 14:47> CCU Objective - Vital Signs / Intake & Output Vital Signs (Last 4 hours): Vital Signs Pulse Resp BP BP Pulse Ox 11/13/17 13:00 82 18 100 11/13/17 12:51 80 17 131/33 L 100 11/13/17 12:36 80 14 114/45 L 98 11/13/17 12:22 79 18 102/49 L 100 11/13/17 12:07 101/41 L 11/13/17 12:00 79 12 100 11/13/17 11:52 76 14 113/30 L 100 11/13/17 11:36 73 18 128/12 L 100 11/13/17 11:21 77 11 L 139/45 L 99 11/13/17 11:06 75 11 L 141/31 L 100 11/13/17 11:05 75 11 L 140/32 L 100 11/13/17 11:00 75 12 100 11/13/17 10:51 74 11 L 130/36 L 100 11/13/17 10:50 130/36 L Intake and Output (Last 8hrs): Intake & Output 11/12/17 11/13/17 11/13/17 22:59 06:59 14:59 Intake Total 340 0 0 Balance 340 0 0 Weight 208 lb 8 oz Intake: Oral 340 0 0 - Medications Active Medications: Active Medications Generic Name Dose Route Start Last Admin Trade Name Freq PRN Reason Stop Dose Admin Acetaminophen 650 mg 11/11/17 08:54 11/12/17 18:13 Tylenol 650mg/20.3ml Solution Ud PO 650 mg Q6 PRN Administration Pain, moderate (4-7) Gabapentin 100 mg 11/12/17 22:00 11/12/17 21:24 Neurontin PO 100 mg HS BELL Administration Sodium Chloride 1,000 mls @ 42 mls/hr 11/13/17 12:30 11/13/17 12:27 Sodium Chloride 0.9% IV 42 mls/hr .[id number] BELL Administration Insulin Aspart 0 unit 11/12/17 07:30 11/13/17 12:15 Novolog SC Not Given ACHS BELL Protocol Pantoprazole Sodium 40 mg 11/11/17 11:15 11/13/17 12:15 Protonix Inj IVP 40 mg Q12 BELL Administration Rosuvastatin Calcium 2.5 mg 11/10/17 22:00 11/12/17 21:37 Crestor PO 2.5 mg HS BELL Administration Zolpidem Tartrate 5 mg 11/12/17 20:57 11/12/17 21:29 Ambien PO 5 mg HS PRN Administration Insomnia - Patient Studies Lab Studies: Microbiology Studies 11/10/17 18:17 Blood Culture - Preliminary Blood NO GROWTH AFTER 48 HOURS 11/10/17 18:17 Blood Culture - Preliminary Blood NO GROWTH AFTER 48 HOURS Lab Studies 11/13/17 11/13/17 11/13/17 Range/Units 11:35 11:23 07:15 WBC (4.8-10.8) K/uL RBC (4.40-5.90) Mil/uL Hgb (12.0-18.0) g/dL Hct (35.0-51.0) % MCV (80.0-94.0) fL MCH (27.0-31.0) pg MCHC (33.0-37.0) g/dL RDW (11.5-14.5) % Plt Count (130-400) K/uL MPV (7.2-11.7) fL Neut % (Auto) (50.0-75.0) % Lymph % (Auto) (20.0-40.0) % [place] % (Auto) (0.0-10.0) % Eos % (Auto) (0.0-4.0) % Baso % (Auto) (0.0-2.0) % Neut # (Auto) (1.8-7.0) K/uL Lymph # (Auto) (1.0-4.3) K/uL [place] # (Auto) (0.0-0.8) K/uL Eos # (Auto) (0.0-0.7) K/uL Baso # (Auto) (0.0-0.2) K/uL Sodium 140 (132-148) mmol/L Potassium 3.8 (3.6-5.2) mmol/L Chloride 98 (98-107) mmol/L Carbon Dioxide 30 (22-30) mmol/L Anion Gap 16 (10-20) BUN 29 H (9-20) mg/dL Creatinine 2.5 H (0.8-1.5) mg/dL Est GFR ( Amer) 32 Est GFR (Non-Af Amer) 26 POC Glucose (mg/dL) 78 93 (65-110) mg/dL Random Glucose 76 (75-110) mg/dL Calcium 8.2 L (8.6-10.4) mg/dl Phosphorus (2.5-4.5) mg/dL Magnesium (1.6-2.3) mg/dL Total Bilirubin (0.2-1.3) mg/dL AST (17-59) U/L ALT (21-72) U/L Alkaline Phosphatase (38-126) U/L Total Protein (6.3-8.3) g/dL Albumin (3.5-5.0) g/dL Globulin (2.2-3.9) gm/dL Albumin/Globulin Ratio (1.0-2.1) 11/13/17 11/13/17 11/12/17 Range/Units 06:07 06:06 21:10 WBC 5.7 (4.8-10.8) K/uL RBC 2.89 L (4.40-5.90) Mil/uL Hgb 9.3 L (12.0-18.0) g/dL Hct 28.1 L (35.0-51.0) % MCV 97.4 H (80.0-94.0) fL MCH 32.2 H (27.0-31.0) pg MCHC 33.1 (33.0-37.0) g/dL RDW 21.0 H (11.5-14.5) % Plt Count 126 L (130-400) K/uL MPV 8.1 (7.2-11.7) fL Neut % (Auto) 58.7 (50.0-75.0) % Lymph % (Auto) 16.4 L (20.0-40.0) % [place] % (Auto) 9.6 (0.0-10.0) % Eos % (Auto) 14.9 H (0.0-4.0) % Baso % (Auto) 0.4 (0.0-2.0) % Neut # (Auto) 3.3 (1.8-7.0) K/uL Lymph # (Auto) 0.9 L (1.0-4.3) K/uL [place] # (Auto) 0.5 (0.0-0.8) K/uL Eos # (Auto) 0.9 H (0.0-0.7) K/uL Baso # (Auto) 0.0 (0.0-0.2) K/uL Sodium 137 (132-148) mmol/L Potassium 5.7 H (3.6-5.2) mmol/L Chloride 97 L (98-107) mmol/L Carbon Dioxide 26 (22-30) mmol/L Anion Gap 20 (10-20) BUN 67 H (9-20) mg/dL Creatinine 4.7 H (0.8-1.5) mg/dL Est GFR ( Amer) 15 Est GFR (Non-Af Amer) 13 POC Glucose (mg/dL) 80 (65-110) mg/dL Random Glucose 81 (75-110) mg/dL Calcium 8.8 (8.6-10.4) mg/dl Phosphorus 5.8 H (2.5-4.5) mg/dL Magnesium 2.4 H (1.6-2.3) mg/dL Total Bilirubin 0.8 (0.2-1.3) mg/dL AST 28 (17-59) U/L ALT 30 (21-72) U/L Alkaline Phosphatase 131 H (38-126) U/L Total Protein 5.8 L (6.3-8.3) g/dL Albumin 2.8 L (3.5-5.0) g/dL Globulin 3.0 (2.2-3.9) gm/dL Albumin/Globulin Ratio 0.9 L (1.0-2.1) / Range/Units 16:03 WBC (4.8-10.8) K/uL RBC (4.40-5.90) Mil/uL Hgb (12.0-18.0) g/dL Hct (35.0-51.0) % MCV (80.0-94.0) fL MCH (27.0-31.0) pg MCHC (33.0-37.0) g/dL RDW (11.5-14.5) % Plt Count (130-400) K/uL MPV (7.2-11.7) fL Neut % (Auto) (50.0-75.0) % Lymph % (Auto) (20.0-40.0) % [place] % (Auto) (0.0-10.0) % Eos % (Auto) (0.0-4.0) % Baso % (Auto) (0.0-2.0) % Neut # (Auto) (1.8-7.0) K/uL Lymph # (Auto) (1.0-4.3) K/uL [place] # (Auto) (0.0-0.8) K/uL Eos # (Auto) (0.0-0.7) K/uL Baso # (Auto) (0.0-0.2) K/uL Sodium (132-148) mmol/L Potassium (3.6-5.2) mmol/L Chloride (98-107) mmol/L Carbon Dioxide (22-30) mmol/L Anion Gap (10-20) BUN (9-20) mg/dL Creatinine (0.8-1.5) mg/dL Est GFR ( Amer) Est GFR (Non-Af Amer) POC Glucose (mg/dL) 94 (65-110) mg/dL Random Glucose (75-110) mg/dL Calcium (8.6-10.4) mg/dl Phosphorus (2.5-4.5) mg/dL Magnesium (1.6-2.3) mg/dL Total Bilirubin (0.2-1.3) mg/dL AST (17-59) U/L ALT (21-72) U/L Alkaline Phosphatase (38-126) U/L Total Protein (6.3-8.3) g/dL Albumin (3.5-5.0) g/dL Globulin (2.2-3.9) gm/dL Albumin/Globulin Ratio (1.0-2.1) Laboratory Results - last 24 hr 11/12/17 11/12/17 11/13/17 16:03 21:10 06:06 WBC 5.7 RBC 2.89 L Hgb 9.3 L Hct 28.1 L MCV 97.4 H MCH 32.2 H MCHC 33.1 RDW 21.0 H Plt Count 126 L MPV 8.1 Neut % (Auto) 58.7 Lymph % (Auto) 16.4 L [place] % (Auto) 9.6 Eos % (Auto) 14.9 H Baso % (Auto) 0.4 Neut # (Auto) 3.3 Lymph # (Auto) 0.9 L [place] # (Auto) 0.5 Eos # (Auto) 0.9 H Baso # (Auto) 0.0 Sodium Potassium Chloride Carbon Dioxide Anion Gap BUN Creatinine Est GFR ( Amer) Est GFR (Non-Af Amer) POC Glucose (mg/dL) 94 80 Random Glucose Calcium Phosphorus Magnesium Total Bilirubin AST ALT Alkaline Phosphatase Total Protein Albumin Globulin Albumin/Globulin Ratio 11/13/17 11/13/17 11/13/17 06:07 07:15 11:23 WBC RBC Hgb Hct MCV MCH MCHC RDW Plt Count MPV Neut % (Auto) Lymph % (Auto) [place] % (Auto) Eos % (Auto) Baso % (Auto) Neut # (Auto) Lymph # (Auto) [place] # (Auto) Eos # (Auto) Baso # (Auto) Sodium 137 Potassium 5.7 H Chloride 97 L Carbon Dioxide 26 Anion Gap 20 BUN 67 H Creatinine 4.7 H Est GFR ( Amer) 15 Est GFR (Non-Af Amer) 13 POC Glucose (mg/dL) 93 78 Random Glucose 81 Calcium 8.8 Phosphorus 5.8 H Magnesium 2.4 H Total Bilirubin 0.8 AST 28 ALT 30 Alkaline Phosphatase 131 H Total Protein 5.8 L Albumin 2.8 L Globulin 3.0 Albumin/Globulin Ratio 0.9 L 11/13/17 11:35 WBC RBC Hgb Hct MCV MCH MCHC RDW Plt Count MPV Neut % (Auto) Lymph % (Auto) [place] % (Auto) Eos % (Auto) Baso % (Auto) Neut # (Auto) Lymph # (Auto) [place] # (Auto) Eos # (Auto) Baso # (Auto) Sodium 140 Potassium 3.8 Chloride 98 Carbon Dioxide 30 Anion Gap 16 BUN 29 H Creatinine 2.5 H Est GFR ( Amer) 32 Est GFR (Non-Af Amer) 26 POC Glucose (mg/dL) Random Glucose 76 Calcium 8.2 L Phosphorus Magnesium Total Bilirubin AST ALT Alkaline Phosphatase Total Protein Albumin Globulin Albumin/Globulin Ratio Critical Care Progress Note - Nutrition Nutrition: Nutrition Category Date Time Status NPO Diet [DIET] Diets 11/13/17 Breakfast Active Attending/Attestation - Attestation I have personally seen and examined this patient.: Yes I have fully participated in the care of the patient.: Yes I have reviewed all pertinent clinical information: Yes Notes (Text): 11/13/17 14:46 patient seen and examined in the intensive care unit. Case discussed with house staff in the morning. Status post permanent pacemaker today Finding EGD tomorrow H&H stable Had hemodialysis today Continue present treatment
--- NOTE | 2017-11-13 10:26 | CP.PCM.PN ---
Subjective - Date & Time of Evaluation Date of Evaluation: 11/13/17 Time of Evaluation: 06:00 - Subjective Subjective: resting on HD in ICU BP diastolic low cleared for OR by Dr Lucas Objective - Vital Signs/Intake and Output Vital Signs (last 24 hours): Temp Pulse Resp BP Pulse Ox 97.4 F L 71 14 106/32 L 100 11/13/17 09:00 11/13/17 10:00 11/13/17 10:00 11/13/17 10:10 11/13/17 10:00 Intake and Output: 11/13/17 11/13/17 06:59 18:59 Intake Total 100 0 Balance 100 0 - Medications Medications: Current Medications Acetaminophen (Tylenol 650mg/20.3ml Solution Ud) 650 mg PO Q6 PRN PRN Reason: Pain, moderate (4-7) Last Admin: 11/12/17 18:13 Dose: 650 mg Gabapentin (Neurontin) 100 mg PO HS BELL Last Admin: 11/12/17 21:24 Dose: 100 mg Insulin Aspart (Novolog) 0 unit SC ACHS BELL PRN Reason: Protocol Last Admin: 11/13/17 08:14 Dose: Not Given Pantoprazole Sodium (Protonix Inj) 40 mg IVP Q12 BELL Last Admin: 11/12/17 21:23 Dose: 40 mg Rosuvastatin Calcium (Crestor) 2.5 mg PO HS BELL Last Admin: 11/12/17 21:37 Dose: 2.5 mg Zolpidem Tartrate (Ambien) 5 mg PO HS PRN PRN Reason: Insomnia Last Admin: 11/12/17 21:29 Dose: 5 mg - Labs Labs: 11/13/17 06:06 11/13/17 06:07 PT 11.8 SECONDS (9.7-12.2) 11/10/17 18:20 INR 1.1 11/10/17 18:20 APTT 40 SECONDS (21-34) H 11/10/17 18:20 - Constitutional Appears: Non-toxic, Chronically Ill - Head Exam Head Exam: NORMOCEPHALIC - Eye Exam Eye Exam: absent: Scleral icterus - ENT Exam ENT Exam: Mucous Membranes Dry - Neck Exam Neck Exam: absent: Lymphadenopathy - Respiratory Exam Respiratory Exam: Decreased Breath Sounds - Cardiovascular Exam Cardiovascular Exam: REGULAR RHYTHM - GI/Abdominal Exam GI & Abdominal Exam: Distended - Rectal Exam Rectal Exam: Deferred - Extremities Exam Extremities Exam: absent: Pedal Edema - Back Exam Back Exam: absent: CVA tenderness (L), CVA tenderness (R) - Neurological Exam Neurological Exam: Alert, Awake, Oriented x3 Neuro motor strength exam: Left Upper Extremity: 0, Right Upper Extremity: 3, Left Lower Extremity: 0, Right Lower Extremity: 3 - Psychiatric Exam Psychiatric exam: Depressed - Skin Skin Exam: Dry Assessment and Plan (1) Anemia Status: Acute (2) Gastrointestinal hemorrhage Status: Acute (3) Acute hyperkalemia Status: Acute (4) CAD (coronary artery disease) of artery bypass graft Status: Acute (5) CHF (congestive heart failure), NYHA class III Status: Acute (6) COPD (chronic obstructive pulmonary disease) Status: Acute (7) ESRD (end stage renal disease) on dialysis Status: Acute (8) ASHD (arteriosclerotic heart disease) Status: Chronic (9) Diabetes Status: Chronic (10) History of CVA (cerebrovascular accident) Status: Chronic (11) Hypertension Status: Chronic (12) Sleep apnea Status: Chronic
[2017-11-13 12:01] LABS: CALCIUM 8.2 mg/dl (8.6-10.4)
--- NOTE | 2017-11-13 12:29 | CP.PCM.PN ---
Subjective - Date & Time of Evaluation Date of Evaluation: 11/13/17 Time of Evaluation: 12:28 - Subjective Subjective: pt is seen and examined, follow up consult is dictated #[id number] s/p hd today, had a uf about 0.9 lit ivf ns at 42 ml/hr Objective - Vital Signs/Intake and Output Vital Signs (last 24 hours): Temp Pulse Resp BP Pulse Ox 97.4 F L 79 12 113/30 L 100 11/13/17 09:00 11/13/17 12:00 11/13/17 12:00 11/13/17 11:52 11/13/17 12:00 Intake and Output: 11/13/17 11/13/17 06:59 18:59 Intake Total 100 0 Balance 100 0 - Medications Medications: Current Medications Acetaminophen (Tylenol 650mg/20.3ml Solution Ud) 650 mg PO Q6 PRN PRN Reason: Pain, moderate (4-7) Last Admin: 11/12/17 18:13 Dose: 650 mg Gabapentin (Neurontin) 100 mg PO HS BELL Last Admin: 11/12/17 21:24 Dose: 100 mg Bacitracin 50,000 unit/ Sodium (Chloride) 1,000 mls @ 1,000 mls/hr IR .Q1H BELL PRN Reason: Protocol Stop: 11/13/17 13:29 Sodium Chloride (Sodium Chloride 0.9%) 1,000 mls @ 42 mls/hr IV .[id number] BELL Last Admin: 11/13/17 12:27 Dose: 42 mls/hr Insulin Aspart (Novolog) 0 unit SC ACHS BELL PRN Reason: Protocol Last Admin: 11/13/17 12:15 Dose: Not Given Pantoprazole Sodium (Protonix Inj) 40 mg IVP Q12 BELL Last Admin: 11/13/17 12:15 Dose: 40 mg Rosuvastatin Calcium (Crestor) 2.5 mg PO HS BELL Last Admin: 11/12/17 21:37 Dose: 2.5 mg Zolpidem Tartrate (Ambien) 5 mg PO HS PRN PRN Reason: Insomnia Last Admin: 11/12/17 21:29 Dose: 5 mg - Labs Labs: 11/13/17 06:06 11/13/17 11:35 PT 11.8 SECONDS (9.7-12.2) 11/10/17 18:20 INR 1.1 11/10/17 18:20 APTT 40 SECONDS (21-34) H 11/10/17 18:20
[2017-11-13] MEDS ORDERED: Sodium Chloride 0.9% 1,000 ML IV SCH (12:30)
[2017-11-13] MEDS ORDERED: Bacitracin 50,000 UNIT in Sodium Chloride 0.9% Irrig 1,000 ML IR SCH (12:30)
[2017-11-13] MEDS ORDERED: Lidocaine Hydrochloride 20 ML INJ ONE ×2 (12:48→14:36)
[2017-11-13] MEDS ORDERED: Lidocaine 2% Jelly (Uro-Jet) ONE (12:49)
[2017-11-13] MEDS ORDERED: Sodium Chloride 0.9% 1,000 ML IV ONE (13:40)
[2017-11-13] MEDS ORDERED: Thrombin Topical 5,000 Int Units Spray Kit ONE (13:47)
--- NOTE | 2017-11-13 13:47 | VASCLAB ---
PROCEDURE: Upper Extremity Venous Duplex Exam HISTORY: for pacemaker insertion PRIORS: None. TECHNIQUE: Bilateral upper extremity, internal jugular, subclavian, axillary, brachial, ulnar, radial, basilic and upper cephalic veins were evaluated. Flow was assessed with color Doppler, compressibility, assessment of phasic flow and augmentation response. Report prepared by DOUGLAS Willett, RVT FINDINGS: RIGHT: 1. Internal Jugular: 1.1. Compressibility - Fully compressible: Thrombus - None : Flow - Phasic: Augmentation -Normal: Reflux - None. 2. Subclavian: 2.1. Compressibility - Fully compressible: Thrombus - None : Flow - Phasic: Augmentation -Normal: Reflux - None. 3. Axillary: 3.1. Compressibility - Fully compressible: Thrombus - None : Flow - Phasic: Augmentation -Normal: Reflux - None. 4. Brachial: 4.1. Compressibility - Fully compressible: Thrombus - None: Flow - Phasic: Augmentation -Normal: Reflux - None. 5. Ulnar: 5.1. Compressibility - Fully compressible: Thrombus - None: Flow - Phasic: Augmentation -Normal: Reflux - None. 6. Radial: 6.1. Compressibility - Fully compressible: Thrombus - None: Flow - Phasic: Augmentation - Normal: Reflux - None. 7. Cephalic: 7.1. Compressibility - Fully compressible: Thrombus - None: Flow - Phasic: Augmentation -Normal: Reflux - None. 8. Basilic: 8.1. Compressibility - Fully compressible: Thrombus - None: Flow - Phasic: Augmentation -Normal: Reflux - None. LEFT: 1. Internal Jugular: 1.1. Compressibility - Fully compressible: Thrombus - None : Flow - Phasic: Augmentation -Normal: Reflux - None. 2. Subclavian: 2.1. Compressibility - Fully compressible: Thrombus - None : Flow - Phasic: Augmentation -Normal: Reflux - None. 3. Axillary: 3.1. Compressibility - Fully compressible: Thrombus - None : Flow - Phasic: Augmentation -Normal: Reflux - None. 4. Brachial: 4.1. Compressibility - Fully compressible: Thrombus - None: Flow - Phasic: Augmentation -Normal: Reflux - None. 5. Ulnar: 5.1. Compressibility - Fully compressible: Thrombus - None: Flow - Phasic: Augmentation -Normal: Reflux - None. 6. Radial: 6.1. Compressibility - Fully compressible: Thrombus - None: Flow - Phasic: Augmentation - Normal: Reflux - None. 7. Cephalic: 7.1. Compressibility - Fully compressible: Thrombus - None: Flow - Phasic: Augmentation -Normal: Reflux - None. 8. Basilic: 8.1. Compressibility - : Thrombus - : Flow - : Augmentation -: Reflux - . OTHER FINDINGS: Right: None. Left: The left basilic vein was not visualized due to patient position. IMPRESSION: Right: No evidence of vein thrombosis of the right upper extremity with excellent venous flow. Normal valve function noted of the right side. Left: No evidence of vein thrombosis of the left upper extremity with excellent venous flow. Normal valve function noted of the left side.
[2017-11-13] MEDS ORDERED: Vancomycin 1 gm/D5W 200 ml 1 GM/200 ML BAG IVPB ONE (13:52)
--- NOTE | 2017-11-13 13:58 | PCM.OP ---
Operative Report - Operative Report Date of Surgery/Procedure: 11/13/17 Time of Surgery/Procedure: 13:56 Surgeon: Rito RUFFIN Anesthesia/Sedation: MAC Pre-Operative Diagnosis: Symptomatic sick sinus syndrome Post-Operative Diagnosis: Symptomatic sick sinus syndrome Indication for Surgery: Syncope. Bifascicular block. Bradycardia. Hypotension. Slow Junctional rhythm Operative Findings: Subclavian vein was patent Procedure/Operation Description: After informed consent the right pectoral region was draped and prepped. The left axillary vein was accessed after local anesthesia was administred. Two 6Fr sheaths were placed. A 3 cm incision was made and a pocket created. Two pacing leads were placed in the Right atrial appendage and the right ventricular apex. Pace and sense parameters were in the normal range. The leads were sutured to the pectoral fascia. Hemostasis and antibiotic flush were performed. The pacemaker generator was attached to the leads. The pocket was closed in layers Estimated Blood Loss: 5cc Complications: None Discharge & Condition: Stable
--- NOTE | 2017-11-13 14:02 | CP.PCM.PN ---
Subjective - Date & Time of Evaluation Date of Evaluation: 11/13/17 Time of Evaluation: 14:00 - Subjective Subjective: Post procedure note Mr. Shields underwent a permanent pacemaker implant No complications Plan Vancomycin 1 gm x1 dose Arm sling Chest Xray Objective - Vital Signs/Intake and Output Vital Signs (last 24 hours): Temp Pulse Resp BP Pulse Ox 97.4 F L 82 18 131/33 L 100 11/13/17 09:00 11/13/17 13:00 11/13/17 13:00 11/13/17 12:51 11/13/17 13:00 Intake and Output: 11/13/17 11/13/17 06:59 18:59 Intake Total 100 0 Balance 100 0 - Medications Medications: Current Medications Acetaminophen (Tylenol 650mg/20.3ml Solution Ud) 650 mg PO Q6 PRN PRN Reason: Pain, moderate (4-7) Last Admin: 11/12/17 18:13 Dose: 650 mg Gabapentin (Neurontin) 100 mg PO HS BELL Last Admin: 11/12/17 21:24 Dose: 100 mg Sodium Chloride (Sodium Chloride 0.9%) 1,000 mls @ 42 mls/hr IV .[id number] BELL Last Admin: 11/13/17 12:27 Dose: 42 mls/hr Insulin Aspart (Novolog) 0 unit SC ACHS BELL PRN Reason: Protocol Last Admin: 11/13/17 12:15 Dose: Not Given Pantoprazole Sodium (Protonix Inj) 40 mg IVP Q12 BELL Last Admin: 11/13/17 12:15 Dose: 40 mg Rosuvastatin Calcium (Crestor) 2.5 mg PO HS BELL Last Admin: 11/12/17 21:37 Dose: 2.5 mg Zolpidem Tartrate (Ambien) 5 mg PO HS PRN PRN Reason: Insomnia Last Admin: 11/12/17 21:29 Dose: 5 mg - Labs Labs: 11/13/17 06:06 11/13/17 11:35 PT 11.8 SECONDS (9.7-12.2) 11/10/17 18:20 INR 1.1 11/10/17 18:20 APTT 40 SECONDS (21-34) H 11/10/17 18:20
[2017-11-13] MEDS ORDERED: Midazolam 2 MG/2 ML VIAL ONE (14:04)
[2017-11-13] MEDS ORDERED: HEPARIN-NS 5,000 UNITS/500 ML 5,000 UNIT/500 ML BAG IV ONE (14:17)
--- NOTE | 2017-11-13 16:23 | RAD ---
PROCEDURE: Intraoperative Fluoroscopy. HISTORY: TOTAL HEART BLOCK FINDINGS: Fluoroscopic assistance was provided for pacemaker insertion. Please refer to the operative report from LULA Dumont, DR MD. Total fluoroscopic time (continuous mode) utilized during the procedure 266.7 (seconds). Total exam DLP: (mGy) 67.32
--- NOTE | 2017-11-13 17:21 | CP.PCM.PN ---
Subjective - Date & Time of Evaluation Date of Evaluation: 11/13/17 Time of Evaluation: 17:18 - Subjective Subjective: Patient was not cleared for EGD, and the procedure was canceled for today. After dialysis, he underwent PPM insertion today. He denies having nausea, vomiting, abdominal pain. Objective - Vital Signs/Intake and Output Vital Signs (last 24 hours): Temp Pulse Resp BP Pulse Ox 97.7 F 81 13 109/32 L 97 11/13/17 14:00 11/13/17 16:52 11/13/17 16:52 11/13/17 16:52 11/13/17 16:52 Intake and Output: 11/13/17 11/13/17 06:59 18:59 Intake Total 100 84 Balance 100 84 - Medications Medications: Current Medications Acetaminophen (Tylenol 650mg/20.3ml Solution Ud) 650 mg PO Q6 PRN PRN Reason: Pain, moderate (4-7) Last Admin: 11/12/17 18:13 Dose: 650 mg Gabapentin (Neurontin) 100 mg PO HS BELL Last Admin: 11/12/17 21:24 Dose: 100 mg Sodium Chloride (Sodium Chloride 0.9%) 1,000 mls @ 42 mls/hr IV .[id number] BELL Last Admin: 11/13/17 12:27 Dose: 42 mls/hr Insulin Aspart (Novolog) 0 unit SC ACHS BELL PRN Reason: Protocol Last Admin: 11/13/17 17:08 Dose: Not Given Pantoprazole Sodium (Protonix Inj) 40 mg IVP Q12 BELL Last Admin: 11/13/17 12:15 Dose: 40 mg Rosuvastatin Calcium (Crestor) 2.5 mg PO HS BELL Last Admin: 11/12/17 21:37 Dose: 2.5 mg Zolpidem Tartrate (Ambien) 5 mg PO HS PRN PRN Reason: Insomnia Last Admin: 11/12/17 21:29 Dose: 5 mg - Labs Labs: 11/13/17 06:06 11/13/17 11:35 PT 11.8 SECONDS (9.7-12.2) 11/10/17 18:20 INR 1.1 11/10/17 18:20 APTT 40 SECONDS (21-34) H 11/10/17 18:20 - Constitutional Appears: No Acute Distress - Head Exam Head Exam: ATRAUMATIC, NORMOCEPHALIC - Eye Exam Eye Exam: EOMI, PERRL - Neck Exam Neck Exam: absent: Lymphadenopathy, Thyromegaly - Respiratory Exam Respiratory Exam: NORMAL BREATHING PATTERN. absent: Rales, Rhonchi, Wheezes - Cardiovascular Exam Cardiovascular Exam: REGULAR RHYTHM, +S1, +S2. absent: Gallop, Rubs, Murmur - GI/Abdominal Exam GI & Abdominal Exam: Soft, Normal Bowel Sounds. absent: Tenderness, Mass, Organomegaly - Rectal Exam Rectal Exam: Deferred - Extremities Exam Extremities Exam: absent: Calf Tenderness, Pedal Edema Assessment and Plan (1) Melena Assessment & Plan: The hemoglobin is stable at 9.3. Plan is for EGD in AM. Status: Acute
--- NOTE | 2017-11-13 18:18 | RAD ---
HISTORY: post pacemaker insertion COMPARISON: Portable chest 11/10/2017. FINDINGS: LUNGS: Limited patchy atelectasis or infiltrate seen at the superior left lung zone with persistent airspace disease at the left base not significantly changed. There is interval increased opacity at the right base suspicious for a mild to moderate pleural effusion though airspace disease is also suspected. No pneumothorax bilaterally. Cardiac size is stable. Sternotomy wires, event recorder and an interval right-sided pacemaker is placed with 2 leads entering into the region of the heart by a right subclavian approach. Generator is seen at the right pectoralis region with skin delano overlying it. Pulmonary vascular congestion appears diminished. PLEURA: As above. CARDIOVASCULAR: As above. OSSEOUS STRUCTURES: Sternotomy wires again evident. VISUALIZED UPPER ABDOMEN: Normal. OTHER FINDINGS: None. IMPRESSION: Status post right-sided prior cardiac pacemaker deployment as per above. No pneumothorax bilaterally. Cardiomegaly is stable with diminishing pulmonary vascular congestion. Bibasilar airspace disease noted with [id number] right pleural effusion evident. Trace left pleural effusion again questioned versus fibrosis.
[2017-11-13] MEDS: Acetaminophen 650mg/20.3ml solution UD PO PRN (18:52)
[2017-11-13] MEDS ORDERED: Tramadol 25 mg PO STA (20:37)
[2017-11-13] MEDS: Rosuvastatin Calcium 2.5 mg Tab PO SCH (21:13)
--- NOTE | 2017-11-13 22:07 | CARD ---
APPROVED REPORT EKG Measurement Heart [id number] <Conclusion> Junctional rhythm Left axis deviation Right bundle branch block Abnormal ECG
[2017-11-14] MEDS: Acetaminophen 650mg/20.3ml solution UD PO PRN (03:39)
[2017-11-14 06:37] LABS: BASO % 0.2 % (0.0-2.0); EOS # 0.7 K/uL (0.0-0.7); EOS % 11.2 % (0.0-4.0); HEMOGLOBIN 9.1 g/dL (12.0-18.0); LYMPH # 0.8 K/uL (1.0-4.3); LYMPH % 12.8 % (20.0-40.0); MEAN CELL VOLUME 99.5 fL (80.0-94.0); MEAN CORPUSCULAR HEMOGLOBIN 32.4 pg (27.0-31.0); MEAN CORPUSCULAR HGB CONC 32.5 g/dL (33.0-37.0); MEAN PLATELET VOLUME 8.1 fL (7.2-11.7); MONO # 0.6 K/uL (0.0-0.8); MONO % 10.4 % (0.0-10.0); NEUT % 65.4 % (50.0-75.0); NRBC % 0.3 % (0.0-2.0); RBC 2.8 Mil/uL (4.40-5.90); RED CELL DISTRIBUTION WIDTH 21.9 % (11.5-14.5); WHITE BLOOD COUNT 6.1 K/uL (4.8-10.8)
[2017-11-14 06:51] LABS: ALBUMIN 2.9 g/dL (3.5-5.0); CALCIUM 8.1 mg/dl (8.6-10.4)
--- NOTE | 2017-11-14 06:59 | PN ---
DATE: 11/13/2017. FOLLOWUP RENAL CONSULTATION LOCATION: ICU bed 9. REQUESTED BY: Dr. Fabiano Rodas. REASON FOR FOLLOWUP: End-stage renal disease continuation with hemodialysis, GI bleed. HISTORY OF PRESENT ILLNESS: Mr. Gonzales is a 67 years old elderly [place] male with a past medical history significant for longstanding hypertension, diabetes, coronary artery disease status post CABG, end-stage renal disease, CVA with left-sided weakness was admitted with altered mental status, bradycardia, hypotension and severe anemia and black stool. The patient received transfusion of packed RBC about 5 units since admission, H and H remained stable. The patient underwent hemodialysis this morning, had ultrafiltration about 0.9 liters. The patient was complaining of slight weakness and blood pressure is on the borderline systolic blood pressure around 95 to 100 post dialysis, not in distress. No chest pain, no palpitation. No fever or cough. No abdominal pain. No nausea, vomiting, diarrhea. PHYSICAL EXAMINATION: VITAL SIGNS: This morning blood pressure 91/28, pulse 69, respirations are 13, temperature 97.4. Height 5 feet 7 inches, weight is 208 pounds. GENERAL: Mr. Gonzales is a 67 years old elderly obese [place] male, well-built, well-nourished, not in distress. HEENT: Pupils normal, reactive to light and accommodation. Conjunctiva pink. Sclerae anicteric. Tongue is moist. Trachea is midline. LUNGS: Symmetrical on both sides. Bilateral breath sounds present. Clear to auscultation. CVS: [place] at the fifth intercostal space, midclavicular line. S1 and S2 audible. No murmur or gallop. ABDOMEN: Normal in appearance. Soft, tympanic. No guarding, no rigidity. No hepatosplenomegaly. MEDICAL FRONT DESK COORDINATOR: The patient is alert, awake, oriented x3. Nonfocal neuro examination. Cranial nerves II through XII grossly intact. Sensory and motor system is within normal limits. EXTREMITIES: No cyanosis, no clubbing, no edema. CURRENT MEDICATIONS: Include as follows; Ambien 5 mg at bedtime, Crestor 2.5 mg p.o. at bedtime, gabapentin 100 mg p.o. at bedtime, NovoLog for sliding scale and Protonix 40 mg IV every 12 hours, Tylenol 650 mg in 20 mL solution every 6 hours p.r.n. LABORATORY DATA: Include as follows as of 11/13/2017 pre dialysis WBC 5.7, hemoglobin 9.3, hematocrit is 28.1, platelets 126. Sodium 137, potassium 5.7, chloride 97, CO2 26, BUN 67, creatinine is 4.7 and glucose 93 and calcium 8.8, phosphorus 5.8, magnesium 2.4, total bili 0.8, AST 28, ALT 30, alkaline phos of 131, total protein 5.9, albumin is 2.8. Repeat chem-7 post dialysis; sodium 140, potassium 3.8, chloride 98, CO2 30, BUN 29, creatinine 2.5, glucose 76, calcium 8.2. Chest x-ray as of 11/13/2017; status post right-sided prior cardiac pacemaker deployment as above, no pneumothorax bilaterally, cardiomegaly is stable with diminishing pulmonary vascular congestion, bibasilar airspace disease noted with mild to moderate right pleural effusion evident, trace left pleural effusion again questioned versus fibrosis. ASSESSMENT AND PLAN: In summary, Mr. Gonzales is a 67 years old elderly [place] male with history of longstanding hypertension, diabetes, coronary artery disease status post coronary artery bypass graft, cerebrovascular accident with left-sided weakness, end-stage renal disease was admitted with hypotension, bradycardia and gastrointestinal bleed with severe anemia, hemoglobin of 4 status post transfusion of 5 units packed red blood cells and scheduled for a pacemaker placement and then EGD after pacemaker placement and cleared by Cardiology. 1. End-stage renal disease. Continue hemodialysis three times a week Sunday, , Sunday without any heparin, ultrafiltration as tolerated. 2. Hypotension post dialysis. We will start IV fluids normal saline at 42 mL/hour. 3. Anemia secondary to gastrointestinal bleed. H and H is stable after transfusion of 5 units packed RBC. Continue to monitor CBC and continue to follow up with Cardiology for pacemaker placement and also follow up with GI for EGD after pacemaker placement. 4. Rule out pneumonia. We will follow with you. IV antibiotics as per Dr. Rodas if needed. Thank you for allowing me to participate in your patient's care. Martin Ortiz MD [facility] # [phone]
[2017-11-14] MEDS: (Novolog) Insulin Aspart, Recombinant 100 u/ml 10 ml vial SC SCH ×4 (07:30→21:49)
--- NOTE | 2017-11-14 08:57 | CP.CCUPN ---
<Aleks Spicer - Last Filed: 11/14/17 15:22> CCU Subjective - Physician Review Subjective (Free Text): 11/12/17 08:58 Patient seen and examined. Patient reports poor sleep last night and is complaining of hunger. It was explained that he's NPO for his EGD today. 11/13/17 08:52 Patient seen and examined. Patient getting dialysis treatment at the moment. No acute complaints. Patient NPO for possible pacemaker later today. 11/14/17 08:53 Patient seen and examined. Patient reports generalized back pain and neuropathic pains despite multiple attempts at re-positioning. He is NPO for EGD today. CCU Objective - Vital Signs / Intake & Output Vital Signs (Last 4 hours): Vital Signs Pulse Resp BP Pulse Ox 11/14/17 06:06 76 11 L 106/31 L 100 11/14/17 06:00 76 11 L 99 11/14/17 05:49 72 12 96/24 L 98 11/14/17 05:03 68 11 L 98 11/14/17 05:00 68 11 L 100 Intake and Output (Last 8hrs): Intake & Output 11/13/17 11/14/17 11/14/17 22:59 06:59 14:59 Intake Total 636 50 Output Total 1 0 Balance 635 50 Weight 205 lb 6 oz Intake: Intake, IV Amount 126 Right Distal Port Femoral 126 Oral 510 50 Output: Urine 0 Urine, Voided 0 Stool 0 Urine/Stool Mix 1 - Physical Exam Head: Positive for: Atraumatic, Normocephalic Pupils: Positive for: PERRL Extroacular Muscles: Positive for: EOMI Conjunctiva: Positive for: Normal Mouth: Positive for: Moist Mucous Membranes Respiratory/Chest: Positive for: Clear to Auscultation, Good Air Exchange Cardiovascular: Positive for: Regular Rate and Rhythm Upper Extremity: Positive for: Normal Inspection Lower Extremity: Positive for: Normal Inspection Neurological: Positive for: GCS=15, CN II-XII Intact Skin: Positive for: Warm, Dry Psychiatric: Positive for: Alert, Oriented x 3 - Medications Active Medications: Active Medications Generic Name Dose Route Start Last Admin Trade Name Freq PRN Reason Stop Dose Admin Acetaminophen 650 mg 11/11/17 08:54 11/14/17 03:39 Tylenol 650mg/20.3ml Solution Ud PO 650 mg Q6 PRN Administration Pain, moderate (4-7) Gabapentin 100 mg 11/12/17 22:00 11/13/17 21:13 Neurontin PO 100 mg HS BELL Administration Insulin Aspart 0 unit 11/12/17 07:30 11/13/17 21:20 Novolog SC Not Given ACHS BELL Protocol Pantoprazole Sodium 40 mg 11/11/17 11:15 11/13/17 21:13 Protonix Inj IVP 40 mg Q12 BELL Administration Rosuvastatin Calcium 2.5 mg 11/10/17 22:00 11/13/17 21:13 Crestor PO 2.5 mg HS BELL Administration Zolpidem Tartrate 5 mg 11/12/17 20:57 11/13/17 21:15 Ambien PO 5 mg HS PRN Administration Insomnia - Patient Studies Lab Studies: Microbiology Studies 11/10/17 18:17 Blood Culture - Preliminary Blood NO GROWTH AFTER 48 HOURS 11/10/17 18:17 Blood Culture - Preliminary Blood NO GROWTH AFTER 48 HOURS Lab Studies 11/14/17 11/14/17 11/14/17 Range/Units 08:04 06:28 06:28 WBC 6.1 (4.8-10.8) K/uL RBC 2.80 L (4.40-5.90) Mil/uL Hgb 9.1 L (12.0-18.0) g/dL Hct 27.9 L (35.0-51.0) % MCV 99.5 H D (80.0-94.0) fL MCH 32.4 H (27.0-31.0) pg MCHC 32.5 L (33.0-37.0) g/dL RDW 21.9 H (11.5-14.5) % Plt Count 125 L (130-400) K/uL MPV 8.1 (7.2-11.7) fL Neut % (Auto) 65.4 (50.0-75.0) % Lymph % (Auto) 12.8 L (20.0-40.0) % [place] % (Auto) 10.4 H (0.0-10.0) % Eos % (Auto) 11.2 H (0.0-4.0) % Baso % (Auto) 0.2 (0.0-2.0) % Neut # (Auto) 4.0 (1.8-7.0) K/uL Lymph # (Auto) 0.8 L (1.0-4.3) K/uL [place] # (Auto) 0.6 (0.0-0.8) K/uL Eos # (Auto) 0.7 (0.0-0.7) K/uL Baso # (Auto) 0.0 (0.0-0.2) K/uL Sodium 139 (132-148) mmol/L Potassium 4.8 (3.6-5.2) mmol/L Chloride 100 (98-107) mmol/L Carbon Dioxide 27 (22-30) mmol/L Anion Gap 17 (10-20) BUN 35 H (9-20) mg/dL Creatinine 3.3 H (0.8-1.5) mg/dL Est GFR ( Amer) 23 Est GFR (Non-Af Amer) 19 POC Glucose (mg/dL) 90 (65-110) mg/dL Random Glucose 83 (75-110) mg/dL Calcium 8.1 L (8.6-10.4) mg/dl Phosphorus 5.1 H (2.5-4.5) mg/dL Magnesium 2.1 (1.6-2.3) mg/dL Total Bilirubin 0.8 (0.2-1.3) mg/dL AST 31 (17-59) U/L ALT 26 (21-72) U/L Alkaline Phosphatase 123 (38-126) U/L Total Protein 5.8 L (6.3-8.3) g/dL Albumin 2.9 L (3.5-5.0) g/dL Globulin 2.9 (2.2-3.9) gm/dL Albumin/Globulin Ratio 1.0 (1.0-2.1) 11/13/17 11/13/17 11/13/17 Range/Units 21:15 15:57 11:35 WBC (4.8-10.8) K/uL RBC (4.40-5.90) Mil/uL Hgb (12.0-18.0) g/dL Hct (35.0-51.0) % MCV (80.0-94.0) fL MCH (27.0-31.0) pg MCHC (33.0-37.0) g/dL RDW (11.5-14.5) % Plt Count (130-400) K/uL MPV (7.2-11.7) fL Neut % (Auto) (50.0-75.0) % Lymph % (Auto) (20.0-40.0) % [place] % (Auto) (0.0-10.0) % Eos % (Auto) (0.0-4.0) % Baso % (Auto) (0.0-2.0) % Neut # (Auto) (1.8-7.0) K/uL Lymph # (Auto) (1.0-4.3) K/uL [place] # (Auto) (0.0-0.8) K/uL Eos # (Auto) (0.0-0.7) K/uL Baso # (Auto) (0.0-0.2) K/uL Sodium 140 (132-148) mmol/L Potassium 3.8 (3.6-5.2) mmol/L Chloride 98 (98-107) mmol/L Carbon Dioxide 30 (22-30) mmol/L Anion Gap 16 (10-20) BUN 29 H (9-20) mg/dL Creatinine 2.5 H (0.8-1.5) mg/dL Est GFR ( Amer) 32 Est GFR (Non-Af Amer) 26 POC Glucose (mg/dL) 108 82 (65-110) mg/dL Random Glucose 76 (75-110) mg/dL Calcium 8.2 L (8.6-10.4) mg/dl Phosphorus (2.5-4.5) mg/dL Magnesium (1.6-2.3) mg/dL Total Bilirubin (0.2-1.3) mg/dL AST (17-59) U/L ALT (21-72) U/L Alkaline Phosphatase (38-126) U/L Total Protein (6.3-8.3) g/dL Albumin (3.5-5.0) g/dL Globulin (2.2-3.9) gm/dL Albumin/Globulin Ratio (1.0-2.1) /24/18 Range/Units 11:23 WBC (4.8-10.8) K/uL RBC (4.40-5.90) Mil/uL Hgb (12.0-18.0) g/dL Hct (35.0-51.0) % MCV (80.0-94.0) fL MCH (27.0-31.0) pg MCHC (33.0-37.0) g/dL RDW (11.5-14.5) % Plt Count (130-400) K/uL MPV (7.2-11.7) fL Neut % (Auto) (50.0-75.0) % Lymph % (Auto) (20.0-40.0) % [place] % (Auto) (0.0-10.0) % Eos % (Auto) (0.0-4.0) % Baso % (Auto) (0.0-2.0) % Neut # (Auto) (1.8-7.0) K/uL Lymph # (Auto) (1.0-4.3) K/uL [place] # (Auto) (0.0-0.8) K/uL Eos # (Auto) (0.0-0.7) K/uL Baso # (Auto) (0.0-0.2) K/uL Sodium (132-148) mmol/L Potassium (3.6-5.2) mmol/L Chloride (98-107) mmol/L Carbon Dioxide (22-30) mmol/L Anion Gap (10-20) BUN (9-20) mg/dL Creatinine (0.8-1.5) mg/dL Est GFR ( Amer) Est GFR (Non-Af Amer) POC Glucose (mg/dL) 78 (65-110) mg/dL Random Glucose (75-110) mg/dL Calcium (8.6-10.4) mg/dl Phosphorus (2.5-4.5) mg/dL Magnesium (1.6-2.3) mg/dL Total Bilirubin (0.2-1.3) mg/dL AST (17-59) U/L ALT (21-72) U/L Alkaline Phosphatase (38-126) U/L Total Protein (6.3-8.3) g/dL Albumin (3.5-5.0) g/dL Globulin (2.2-3.9) gm/dL Albumin/Globulin Ratio (1.0-2.1) Laboratory Results - last 24 hr 11/13/17 11/13/17 11/13/17 11:23 11:35 15:57 WBC RBC Hgb Hct MCV MCH MCHC RDW Plt Count MPV Neut % (Auto) Lymph % (Auto) [place] % (Auto) Eos % (Auto) Baso % (Auto) Neut # (Auto) Lymph # (Auto) [place] # (Auto) Eos # (Auto) Baso # (Auto) Sodium 140 Potassium 3.8 Chloride 98 Carbon Dioxide 30 Anion Gap 16 BUN 29 H Creatinine 2.5 H Est GFR ( Amer) 32 Est GFR (Non-Af Amer) 26 POC Glucose (mg/dL) 78 82 Random Glucose 76 Calcium 8.2 L Phosphorus Magnesium Total Bilirubin AST ALT Alkaline Phosphatase Total Protein Albumin Globulin Albumin/Globulin Ratio 11/13/17 11/14/17 11/14/17 21:15 06:28 06:28 WBC 6.1 RBC 2.80 L Hgb 9.1 L Hct 27.9 L MCV 99.5 H D MCH 32.4 H MCHC 32.5 L RDW 21.9 H Plt Count 125 L MPV 8.1 Neut % (Auto) 65.4 Lymph % (Auto) 12.8 L [place] % (Auto) 10.4 H Eos % (Auto) 11.2 H Baso % (Auto) 0.2 Neut # (Auto) 4.0 Lymph # (Auto) 0.8 L [place] # (Auto) 0.6 Eos # (Auto) 0.7 Baso # (Auto) 0.0 Sodium 139 Potassium 4.8 Chloride 100 Carbon Dioxide 27 Anion Gap 17 BUN 35 H Creatinine 3.3 H Est GFR ( Amer) 23 Est GFR (Non-Af Amer) 19 POC Glucose (mg/dL) 108 Random Glucose 83 Calcium 8.1 L Phosphorus 5.1 H Magnesium 2.1 Total Bilirubin 0.8 AST 31 ALT 26 Alkaline Phosphatase 123 Total Protein 5.8 L Albumin 2.9 L Globulin 2.9 Albumin/Globulin Ratio 1.0 11/14/17 08:04 WBC RBC Hgb Hct MCV MCH MCHC RDW Plt Count MPV Neut % (Auto) Lymph % (Auto) [place] % (Auto) Eos % (Auto) Baso % (Auto) Neut # (Auto) Lymph # (Auto) [place] # (Auto) Eos # (Auto) Baso # (Auto) Sodium Potassium Chloride Carbon Dioxide Anion Gap BUN Creatinine Est GFR ( Amer) Est GFR (Non-Af Amer) POC Glucose (mg/dL) 90 Random Glucose Calcium Phosphorus Magnesium Total Bilirubin AST ALT Alkaline Phosphatase Total Protein Albumin Globulin Albumin/Globulin Ratio Fingerstick Blood Sugar Results: 108 Critical Care Progress Note - Nutrition Nutrition: Nutrition Category Date Time Status NPO Diet [DIET] Diets 11/14/17 Breakfast Active Assessment/Plan - Assessment and Plan (Free Text) Assessment: This is a 67 year old male PMHx ESRD on HD TTS, COPD, CAD, CVA brought in from snf for symptomatic anemia with bradycardia and hypotension. Patient diagnosed with upper GI bleed. He is doing better after having 5 total units of pRBCs during this admission. EGD delayed because awaiting cardiac clearance. Before patient can be cleared from cardiology, he will require pacemaker placement which he received on 11/13/17. He iunderwent EGD today which showed erosive gastritis without bleeding. There was also esophagitis and duodenal nodules which were biopsied. Neuro Awake, verbal Cardio Assessment: Hypotension 2/2 hypovolemia, CAD Crestor 2.5 mg PO HS Cardiology on consult EP on consult-PPM placed on 11/13/17 Pulm Saturating well GI Assessment: Upper GI bleed Liquid Diet--advance as tolerated Protonix 40 mg PO daily Renal Assessment: ESRD on HD TTS Nephro on consult, HD initated TTS Heme/onc Assessment: Anemia due to upper GI bleed Currently hemodynamically stable s/p 5 total units of pRBCs on this admission Prophylaxis VTE contraindicated due to GI bleed Protonix 40 mg PO daily Disposition: Transfer to telemetry Discussed with Dr. Frausto <Joey Frausto S - Last Filed: 11/14/17 15:42> CCU Objective - Vital Signs / Intake & Output Vital Signs (Last 4 hours): Vital Signs Temp Pulse Resp BP Pulse Ox 11/14/17 14:18 77 19 104/23 L 96 11/14/17 14:00 77 12 100 11/14/17 13:48 77 13 111/28 L 100 11/14/17 13:18 75 10 L 108/31 L 100 11/14/17 13:00 74 19 100 11/14/17 12:48 76 20 95/25 L 100 11/14/17 12:17 78 11 L 108/29 L 100 11/14/17 12:14 98.1 F 81 19 108/31 L 98 11/14/17 12:00 79 14 92 L 11/14/17 11:48 79 14 100/20 L 87 L 11/14/17 11:44 98.2 F 81 18 95/25 L 98 Intake and Output (Last 8hrs): Intake & Output 11/14/17 11/14/17 11/14/17 06:59 14:59 22:59 Intake Total 50 330 Output Total 0 0 Balance 50 330 Weight 205 lb 6 oz Intake: IV 300 Oral 50 30 Output: Urine 0 Urine, Voided 0 Stool 0 Emesis 0 Other: # Voids Urine, Voided 0 # Bowel Movements 0 - Medications Active Medications: Active Medications Generic Name Dose Route Start Last Admin Trade Name Freq PRN Reason Stop Dose Admin Acetaminophen 650 mg 11/11/17 08:54 11/14/17 03:39 Tylenol 650mg/20.3ml Solution Ud PO 650 mg Q6 PRN Administration Pain, moderate (4-7) Gabapentin 100 mg 11/12/17 22:00 11/13/17 21:13 Neurontin PO 100 mg HS BELL Administration Insulin Aspart 0 unit 11/12/17 07:30 11/14/17 07:30 Novolog SC Not Given ACHS BELL Protocol Pantoprazole Sodium 40 mg 11/15/17 10:00 Protonix Ec Tab PO DAILY BELL Rosuvastatin Calcium 2.5 mg 11/10/17 22:00 11/13/17 21:13 Crestor PO 2.5 mg HS BELL Administration Zolpidem Tartrate 5 mg 11/12/17 20:57 11/13/17 21:15 Ambien PO 5 mg HS PRN Administration Insomnia - Patient Studies Lab Studies: Microbiology Studies 11/10/17 18:17 Blood Culture - Preliminary Blood NO GROWTH AFTER 3 DAYS 11/10/17 18:17 Blood Culture - Preliminary Blood NO GROWTH AFTER 3 DAYS Lab Studies 11/14/17 11/14/17 11/14/17 Range/Units 13:36 11:01 08:04 WBC (4.8-10.8) K/uL RBC (4.40-5.90) Mil/uL Hgb 8.7 L (12.0-18.0) g/dL Hct (35.0-51.0) % MCV (80.0-94.0) fL MCH (27.0-31.0) pg MCHC (33.0-37.0) g/dL RDW (11.5-14.5) % Plt Count (130-400) K/uL MPV (7.2-11.7) fL Neut % (Auto) (50.0-75.0) % Lymph % (Auto) (20.0-40.0) % [place] % (Auto) (0.0-10.0) % Eos % (Auto) (0.0-4.0) % Baso % (Auto) (0.0-2.0) % Neut # (Auto) (1.8-7.0) K/uL Lymph # (Auto) (1.0-4.3) K/uL [place] # (Auto) (0.0-0.8) K/uL Eos # (Auto) (0.0-0.7) K/uL Baso # (Auto) (0.0-0.2) K/uL Sodium (132-148) mmol/L Potassium (3.6-5.2) mmol/L Chloride (98-107) mmol/L Carbon Dioxide (22-30) mmol/L Anion Gap (10-20) BUN (9-20) mg/dL Creatinine (0.8-1.5) mg/dL Est GFR ( Amer) Est GFR (Non-Af Amer) POC Glucose (mg/dL) 75 90 (65-110) mg/dL Random Glucose (75-110) mg/dL Calcium (8.6-10.4) mg/dl Phosphorus (2.5-4.5) mg/dL Magnesium (1.6-2.3) mg/dL Total Bilirubin (0.2-1.3) mg/dL AST (17-59) U/L ALT (21-72) U/L Alkaline Phosphatase (38-126) U/L Total Protein (6.3-8.3) g/dL Albumin (3.5-5.0) g/dL Globulin (2.2-3.9) gm/dL Albumin/Globulin Ratio (1.0-2.1) 11/14/17 11/14/1711/13/18 Range/Units 06:28 06:28 21:15 WBC 6.1 (4.8-10.8) K/uL RBC 2.80 L (4.40-5.90) Mil/uL Hgb 9.1 L (12.0-18.0) g/dL Hct 27.9 L (35.0-51.0) % MCV 99.5 H D (80.0-94.0) fL MCH 32.4 H (27.0-31.0) pg MCHC 32.5 L (33.0-37.0) g/dL RDW 21.9 H (11.5-14.5) % Plt Count 125 L (130-400) K/uL MPV 8.1 (7.2-11.7) fL Neut % (Auto) 65.4 (50.0-75.0) % Lymph % (Auto) 12.8 L (20.0-40.0) % [place] % (Auto) 10.4 H (0.0-10.0) % Eos % (Auto) 11.2 H (0.0-4.0) % Baso % (Auto) 0.2 (0.0-2.0) % Neut # (Auto) 4.0 (1.8-7.0) K/uL Lymph # (Auto) 0.8 L (1.0-4.3) K/uL [place] # (Auto) 0.6 (0.0-0.8) K/uL Eos # (Auto) 0.7 (0.0-0.7) K/uL Baso # (Auto) 0.0 (0.0-0.2) K/uL Sodium 139 (132-148) mmol/L Potassium 4.8 (3.6-5.2) mmol/L Chloride 100 (98-107) mmol/L Carbon Dioxide 27 (22-30) mmol/L Anion Gap 17 (10-20) BUN 35 H (9-20) mg/dL Creatinine 3.3 H (0.8-1.5) mg/dL Est GFR ( Amer) 23 Est GFR (Non-Af Amer) 19 POC Glucose (mg/dL) 108 (65-110) mg/dL Random Glucose 83 (75-110) mg/dL Calcium 8.1 L (8.6-10.4) mg/dl Phosphorus 5.1 H (2.5-4.5) mg/dL Magnesium 2.1 (1.6-2.3) mg/dL Total Bilirubin 0.8 (0.2-1.3) mg/dL AST 31 (17-59) U/L ALT 26 (21-72) U/L Alkaline Phosphatase 123 (38-126) U/L Total Protein 5.8 L (6.3-8.3) g/dL Albumin 2.9 L (3.5-5.0) g/dL Globulin 2.9 (2.2-3.9) gm/dL Albumin/Globulin Ratio 1.0 (1.0-2.1) 11/13/17 Range/Units 15:57 WBC (4.8-10.8) K/uL RBC (4.40-5.90) Mil/uL Hgb (12.0-18.0) g/dL Hct (35.0-51.0) % MCV (80.0-94.0) fL MCH (27.0-31.0) pg MCHC (33.0-37.0) g/dL RDW (11.5-14.5) % Plt Count (130-400) K/uL MPV (7.2-11.7) fL Neut % (Auto) (50.0-75.0) % Lymph % (Auto) (20.0-40.0) % [place] % (Auto) (0.0-10.0) % Eos % (Auto) (0.0-4.0) % Baso % (Auto) (0.0-2.0) % Neut # (Auto) (1.8-7.0) K/uL Lymph # (Auto) (1.0-4.3) K/uL [place] # (Auto) (0.0-0.8) K/uL Eos # (Auto) (0.0-0.7) K/uL Baso # (Auto) (0.0-0.2) K/uL Sodium (132-148) mmol/L Potassium (3.6-5.2) mmol/L Chloride (98-107) mmol/L Carbon Dioxide (22-30) mmol/L Anion Gap (10-20) BUN (9-20) mg/dL Creatinine (0.8-1.5) mg/dL Est GFR ( Amer) Est GFR (Non-Af Amer) POC Glucose (mg/dL) 82 (65-110) mg/dL Random Glucose (75-110) mg/dL Calcium (8.6-10.4) mg/dl Phosphorus (2.5-4.5) mg/dL Magnesium (1.6-2.3) mg/dL Total Bilirubin (0.2-1.3) mg/dL AST (17-59) U/L ALT (21-72) U/L Alkaline Phosphatase (38-126) U/L Total Protein (6.3-8.3) g/dL Albumin (3.5-5.0) g/dL Globulin (2.2-3.9) gm/dL Albumin/Globulin Ratio (1.0-2.1) Laboratory Results - last 24 hr 11/13/17 11/13/17 11/14/17 15:57 21:15 06:28 WBC 6.1 RBC 2.80 L Hgb 9.1 L Hct 27.9 L MCV 99.5 H D MCH 32.4 H MCHC 32.5 L RDW 21.9 H Plt Count 125 L MPV 8.1 Neut % (Auto) 65.4 Lymph % (Auto) 12.8 L [place] % (Auto) 10.4 H Eos % (Auto) 11.2 H Baso % (Auto) 0.2 Neut # (Auto) 4.0 Lymph # (Auto) 0.8 L [place] # (Auto) 0.6 Eos # (Auto) 0.7 Baso # (Auto) 0.0 Sodium Potassium Chloride Carbon Dioxide Anion Gap BUN Creatinine Est GFR ( Amer) Est GFR (Non-Af Amer) POC Glucose (mg/dL) 82 108 Random Glucose Calcium Phosphorus Magnesium Total Bilirubin AST ALT Alkaline Phosphatase Total Protein Albumin Globulin Albumin/Globulin Ratio 11/14/17 11/14/17 11/14/17 06:28 08:04 11:01 WBC RBC Hgb Hct MCV MCH MCHC RDW Plt Count MPV Neut % (Auto) Lymph % (Auto) [place] % (Auto) Eos % (Auto) Baso % (Auto) Neut # (Auto) Lymph # (Auto) [place] # (Auto) Eos # (Auto) Baso # (Auto) Sodium 139 Potassium 4.8 Chloride 100 Carbon Dioxide 27 Anion Gap 17 BUN 35 H Creatinine 3.3 H Est GFR ( Amer) 23 Est GFR (Non-Af Amer) 19 POC Glucose (mg/dL) 90 75 Random Glucose 83 Calcium 8.1 L Phosphorus 5.1 H Magnesium 2.1 Total Bilirubin 0.8 AST 31 ALT 26 Alkaline Phosphatase 123 Total Protein 5.8 L Albumin 2.9 L Globulin 2.9 Albumin/Globulin Ratio 1.0 11/14/17 13:36 WBC RBC Hgb 8.7 L Hct MCV MCH MCHC RDW Plt Count MPV Neut % (Auto) Lymph % (Auto) [place] % (Auto) Eos % (Auto) Baso % (Auto) Neut # (Auto) Lymph # (Auto) [place] # (Auto) Eos # (Auto) Baso # (Auto) Sodium Potassium Chloride Carbon Dioxide Anion Gap BUN Creatinine Est GFR ( Amer) Est GFR (Non-Af Amer) POC Glucose (mg/dL) Random Glucose Calcium Phosphorus Magnesium Total Bilirubin AST ALT Alkaline Phosphatase Total Protein Albumin Globulin Albumin/Globulin Ratio Critical Care Progress Note - Nutrition Nutrition: Nutrition Category Date Time Status Liquid Diet [DIET] Diets 11/14/17 Dinner Active Attending/Attestation - Attestation I have personally seen and examined this patient.: Yes I have fully participated in the care of the patient.: Yes I have reviewed all pertinent clinical information: Yes Notes (Text): 11/14/17 15:42 patient seen and examined in the intensive care unit. Status post permanent pacemaker insertion and EGD No active bleeding noted H&H stable Transfer to floor Continue present treatment and hemodialysis
[2017-11-14] MEDS ORDERED: Etomidate 20 mg/10ml Inj IV ONE (10:12)
[2017-11-14] MEDS ORDERED: ePHEDrine 50 mg/ml Inj ONE (10:13)
--- NOTE | 2017-11-14 10:31 | CP.PCM.PN ---
Subjective - Date & Time of Evaluation Date of Evaluation: 11/14/17 Time of Evaluation: 10:29 - Subjective Subjective: COVERING DR JEROME EGD: Erosive gastritis with no active bleeding, biopsied Reflux esophagitis Class A, small hiatal hernia Multiple duodenal nodules/polypoid throughout bulb but no bleeding- biopsied Continue Protonix po Avoid ASA, anti-platelet Rx or Nsaids for 7 days if possible Monitor for bleeding No plans for repeat colonoscopy at this time. Advance diet as tolerated Objective - Vital Signs/Intake and Output Vital Signs (last 24 hours): Temp Pulse Resp BP Pulse Ox 97.8 F 80 21 108/37 L 100 11/14/17 10:01 11/14/17 10:01 11/14/17 10:01 11/14/17 10:01 11/14/17 10:01 Intake and Output: 11/14/17 11/14/17 06:59 18:59 Intake Total 200 300 Output Total 1 Balance 199 300 - Medications Medications: Current Medications Acetaminophen (Tylenol 650mg/20.3ml Solution Ud) 650 mg PO Q6 PRN PRN Reason: Pain, moderate (4-7) Last Admin: 11/14/17 03:39 Dose: 650 mg Gabapentin (Neurontin) 100 mg PO HS BELL Last Admin: 11/13/17 21:13 Dose: 100 mg Insulin Aspart (Novolog) 0 unit SC ACHS BELL PRN Reason: Protocol Last Admin: 11/14/17 07:30 Dose: Not Given Rosuvastatin Calcium (Crestor) 2.5 mg PO HS BELL Last Admin: 11/13/17 21:13 Dose: 2.5 mg Zolpidem Tartrate (Ambien) 5 mg PO HS PRN PRN Reason: Insomnia Last Admin: 11/13/17 21:15 Dose: 5 mg - Labs Labs: 11/14/17 06:28 11/14/17 06:28 PT 11.8 SECONDS (9.7-12.2) 11/10/17 18:20 INR 1.1 11/10/17 18:20 APTT 40 SECONDS (21-34) H 11/10/17 18:20
[2017-11-14] MEDS ORDERED: Dextrose 50% SYRINGE Inj (50 ml) IV STA (11:34)
--- NOTE | 2017-11-14 17:55 | CP.PCM.PN ---
Subjective - Date & Time of Evaluation Date of Evaluation: 11/14/17 Time of Evaluation: 07:00 - Subjective Subjective: s/p perm pacemaker\ tolerated well EGD done findings noted c/o pain NAD denies fever Objective - Vital Signs/Intake and Output Vital Signs (last 24 hours): Temp Pulse Resp BP Pulse Ox 98.1 F 80 23 114/33 L 100 11/14/17 12:14 11/14/17 17:17 11/14/17 17:17 11/14/17 17:17 11/14/17 17:17 Intake and Output: 11/14/17 11/14/17 06:59 18:59 Intake Total 200 330 Output Total 1 0 Balance 199 330 - Medications Medications: Current Medications Acetaminophen (Tylenol 650mg/20.3ml Solution Ud) 650 mg PO Q6 PRN PRN Reason: Pain, moderate (4-7) Last Admin: 11/14/17 03:39 Dose: 650 mg Gabapentin (Neurontin) 100 mg PO HS BELL Last Admin: 11/13/17 21:13 Dose: 100 mg Insulin Aspart (Novolog) 0 unit SC ACHS BELL PRN Reason: Protocol Last Admin: 11/14/17 16:54 Dose: Not Given Pantoprazole Sodium (Protonix Ec Tab) 40 mg PO DAILY BELL Rosuvastatin Calcium (Crestor) 2.5 mg PO HS BELL Last Admin: 11/13/17 21:13 Dose: 2.5 mg Zolpidem Tartrate (Ambien) 5 mg PO HS PRN PRN Reason: Insomnia Last Admin: 11/13/17 21:15 Dose: 5 mg - Labs Labs: 11/14/17 13:36 11/14/17 06:28 PT 11.8 SECONDS (9.7-12.2) 11/10/17 18:20 INR 1.1 11/10/17 18:20 APTT 40 SECONDS (21-34) H 11/10/17 18:20 - Constitutional Appears: Non-toxic, Chronically Ill - Head Exam Head Exam: NORMOCEPHALIC - Eye Exam Eye Exam: PERRL. absent: Scleral icterus - ENT Exam ENT Exam: Mucous Membranes Dry - Neck Exam Neck Exam: absent: Lymphadenopathy - Respiratory Exam Respiratory Exam: Decreased Breath Sounds - Cardiovascular Exam Cardiovascular Exam: REGULAR RHYTHM - GI/Abdominal Exam GI & Abdominal Exam: Distended, Soft - Rectal Exam Rectal Exam: Deferred - Exam Exam: NORMAL INSPECTION - Extremities Exam Extremities Exam: absent: Pedal Edema - Back Exam Back Exam: absent: CVA tenderness (L), CVA tenderness (R) - Neurological Exam Neurological Exam: Alert, Awake, Oriented x3 - Psychiatric Exam Psychiatric exam: Depressed - Skin Skin Exam: Dry Assessment and Plan (1) Anemia Status: Acute (2) Gastrointestinal hemorrhage Status: Acute (3) Acute hyperkalemia Status: Acute (4) CAD (coronary artery disease) of artery bypass graft Status: Acute (5) CHF (congestive heart failure), NYHA class III Status: Acute (6) COPD (chronic obstructive pulmonary disease) Status: Acute (7) ESRD (end stage renal disease) on dialysis Status: Acute (8) ASHD (arteriosclerotic heart disease) Status: Chronic (9) Diabetes Status: Chronic (10) History of CVA (cerebrovascular accident) Status: Chronic (11) Hypertension Status: Chronic (12) Sleep apnea Status: Chronic
[2017-11-14] MEDS ORDERED: Oxycodone/Acetaminophen 5/325 mg Tab PO PRN (17:56)
[2017-11-14] MEDS ORDERED: Acetaminophen 650mg/20.3ml solution UD PO PRN (18:00)
[2017-11-14] MEDS: Rosuvastatin Calcium 2.5 mg Tab PO SCH (22:28)
[2017-11-15] MEDS ORDERED: Albuterol 0.083% Inhal Sol (2.5 mg/3 mL) UD INH STA (07:19)
[2017-11-15] MEDS ORDERED: Albuterol-Ipratrop 3 mg / 0.5 (3 ml) UD INH STA (07:21)
[2017-11-15] MEDS ORDERED: Albuterol-Ipratrop 3 mg / 0.5 (3 ml) UD INH PRN (07:21)
[2017-11-15] MEDS ORDERED: Naloxone 0.4 mg/ml Inj (Adult) IVP ONE (07:23)
[2017-11-15] MEDS ORDERED: Dextrose 50% SYRINGE Inj (50 ml) IV STA (07:34)
[2017-11-15] MEDS ORDERED: Dextrose 50% VIAL Inj (50 ml) IV ONE (07:43)
[2017-11-15] MEDS ORDERED: Vancomycin 1 gm/NS 200 ml 1 GM/200 ML BAG IVPB ONE ×2 (08:11→12:00)
[2017-11-15 08:14] LABS: ARTERIAL BLOOD GAS HCO3 18.1 mmol/L (21-28); ARTERIAL BLOOD GAS O2 SAT 99.5 % (95-98); ARTERIAL BLOOD GAS PCO2 51 mm/Hg (35-45); ARTERIAL BLOOD GAS PH 7.19 (7.35-7.45); ARTERIAL BLOOD GAS PO2 280 mm/Hg (80-100); ARTERIAL BLOOD GAS TCO2 21.1 mmol/L (22-28)
--- NOTE | 2017-11-15 08:18 | RAD ---
HISTORY: low O2 COMPARISON: 11/13/2017. FINDINGS: LUNGS: There is moderate pulmonary venous congestion. There is haziness in the left lung. PLEURA: Bilateral pleural effusions, larger and worsening on the left. No pneumothorax apparent. CARDIOVASCULAR: There is persistent cardiomegaly. Status post CABG. There is stable position of a right-sided pacemaker. OSSEOUS STRUCTURES: No significant abnormalities. VISUALIZED UPPER ABDOMEN: Normal. OTHER FINDINGS: None. IMPRESSION: Worsening left pleural effusion. Question of left pulmonary edema. Persistent cardiomegaly and moderate pulmonary venous congestion.
[2017-11-15] MEDS ORDERED: Albumin Human 25% (12.5 gm/50 ml) IV PRN (08:35)
[2017-11-15] MEDS ORDERED: Vancomycin 1 gm/NS 200 ml 1 GM/200 ML BAG IVPB SCH (08:37)
[2017-11-15 08:39] LABS: BASO % 0.4 % (0.0-2.0); EOS # 0.6 K/uL (0.0-0.7); EOS % 11.4 % (0.0-4.0); HEMOGLOBIN 9.4 g/dL (12.0-18.0); LYMPH # 0.7 K/uL (1.0-4.3); LYMPH % 14.1 % (20.0-40.0); MEAN CELL VOLUME 99.3 fL (80.0-94.0); MEAN CORPUSCULAR HEMOGLOBIN 33.5 pg (27.0-31.0); MEAN CORPUSCULAR HGB CONC 33.7 g/dL (33.0-37.0); MEAN PLATELET VOLUME 8.6 fL (7.2-11.7); MONO # 0.4 K/uL (0.0-0.8); MONO % 7.1 % (0.0-10.0); NEUT # 3.5 K/uL (1.8-7.0); NRBC % 0.1 % (0.0-2.0); RBC 2.79 Mil/uL (4.40-5.90); WHITE BLOOD COUNT 5.2 K/uL (4.8-10.8)
--- NOTE | 2017-11-15 08:39 | PCM.RRT ---
<Lahsonda Ojeda Rosalino - Last Filed: 11/15/17 08:37> [employer] Nurses Assessment - Situation Date: 11/15/17 Time [employer] was called: 07:15 [employer] Location:: Med/Surg [employer] Reason for Call: O2 Saturation below 90% - IV IV Inserted during [employer]?: Yes New IV Insertion Tolerance: Good - Respiratory [employer] Delivery Method: BiPAP @%, Non Rebreather @% Received Nebulizer Treatments: Yes Secretions Suctioned?: Yes Was the Patient Intubated?: No - Diagnostic Test Ordered Chest X-Ray: Yes - Stat Labs Ordered [employer] Stat Labs Ordered: CBC, TROPONIN, LACTIC ACID, BLOOD C&S X2, ABG - [place] Coma Scale Coma Scale Eye Opening: Spontaneous Coma Scale Motor: Movement to pain stimulus Coma Scale Verbal: Incomprehensible speech Coma Scale Total: 11 - Vital Signs at end of [employer] Vital Signs at end of [employer]: 100% O2, BP: 130/105 - Recommendations 5) [employer] Level of Care Recommendations: Transfer to ICU - Neurological Status (Select all that apply): Disoriented, Confused, Lethargic - Respiratory Oxygen Delivery Method: BiPAP @% (Ipap 14, Epap 7 02 100%) - Constitutional Appears: No Acute Distress - Head Head Exam: ATRAUMATIC, NORMAL INSPECTION, NORMOCEPHALIC - Eyes Eye Exam: EOMI, Normal appearance - Respiratory Exam Respiratory Exam: Rales, Rhonchi, Respiratory Distress - Cardiovascular Exam Cardiovascular Exam: REGULAR RHYTHM, RRR, +S1, +S2 - GI/Abdominal Exam GI & Abdominal Exam: Soft, Normal Bowel Sounds. absent: Tenderness - Neurological Exam Neurological Exam: Altered, Awake. absent: Alert - Extremities Exam Extremities Exam: Normal Inspection Plan - Assessment of Findings&Treatment Plan Patient found to be lethargic with 82% 02 sat and bp 80/50. [employer] was called. Patient's blood pressure increased to 110/95 spontaneously. Patient was placed on 5L O2 nonrebreather and duonebs given. Patient was given Narcan .4 . Blood glucose was 87 and patient given 1/2 amp D50. CHRISTOPHER, CBC, CMP, Blood cultures, ABG shock, and ammonia levels drawn. Portable cxray done. Patient started on BiPap at Ipap 14, rate 8 at 100% 02. Patient was saturating at 100%. Patient to get emergent dialysis. As per Dr. Reddy, patient was given 1 dose of Vancomycin. Patient was awake, responsive to pain, but could not follow commands. Repeat blood pressure was 130/105. Patient was transferred to ICU. <MariselRachel - Last Filed: 11/16/17 12:35> [employer] Nurses Assessment - Vital Signs Vital Signs: Rapid Response Vital Sign Blood Pressure 76/42 Pulse Rate 86 Oxygen Saturation 81 - Vital Signs at end of [employer] Vital Signs at end of [employer]: Rapid Response End Vital Sign Blood Pressure 107/49 Pulse Rate 86 Respiratory Rate 18 Temperature 98.8 F O2 Sat by Pulse Oximetry 100 Attending/Attestation - Attestation I have personally seen and examined this patient.: Yes I have fully participated in the care of the patient.: Yes I have reviewed all pertinent clinical information, including history, physical exam and plan: Yes Notes (Text): Patient was seen and examined by me during [employer]. Discussed with theICU physician. patient was hypoxic and hypotensive [employer] called. He is congested and was lethargic. Chest x ray with congestion placed on BIPAP ,spoke to manager care. patient will have urgent dialysis and will be transferred to ICU I agree with the resident's documentation. spoke to Dr reddy
[2017-11-15 08:54] LABS: ALB/GLOB RATIO 0.9 (1.0-2.1); CALCIUM 8.6 mg/dl (8.6-10.4)
[2017-11-15 09:06] LABS: CK-MB 2.47 ng/mL (0.0-3.38); TROPONIN I 0.116 ng/mL (0.00-0.120)
[2017-11-15] MEDS: (Novolog) Insulin Aspart, Recombinant 100 u/ml 10 ml vial SC SCH ×4 (09:07→21:20)
--- NOTE | 2017-11-15 10:48 | CP.PCM.PN ---
Subjective - Date & Time of Evaluation Date of Evaluation: 11/15/17 Time of Evaluation: 10:46 - Subjective Subjective: COVERING DR JEROME Event of this am noted. Vanco given emperically for presumed sepsis. More alert now. No bleeding and H/H stable Objective - Vital Signs/Intake and Output Vital Signs (last 24 hours): Temp Pulse Resp BP Pulse Ox 99.5 F 94 H 14 110/33 L 99 11/15/17 08:30 11/15/17 10:30 11/15/17 10:17 11/15/17 10:30 11/15/17 10:30 Intake and Output: 11/15/17 11/15/17 06:59 18:59 Intake Total 0 Output Total 0 Balance 0 - Medications Medications: Current Medications Acetaminophen (Tylenol 650mg/20.3ml Solution Ud) 650 mg PO Q6 PRN PRN Reason: Pain, Mild (1-3) Albumin Human (Albumin Human 25% (12.5 Gm/50 Ml)) 12.5 gm IV TTS PRN PRN Reason: hypotension Stop: 11/21/17 08:36 Last Admin: 11/15/17 09:56 Dose: 12.5 gm Albuterol/Ipratropium (Duoneb 3 Mg/0.5 Mg (3 Ml) Ud) 3 ml INH RQ4 BELL Vancomycin/Sodium Chloride (Vancomycin 1 Gm/Ns 200 Ml) 1 gm in 200 mls @ 133 mls/hr IVPB TTS BELL PRN Reason: Protocol Stop: 11/22/17 10:01 Vancomycin/Sodium Chloride (Vancomycin 1 Gm/Ns 200 Ml) 1 gm in 200 mls @ 133.333 mls/hr IVPB ONCE ONE PRN Reason: Protocol Stop: 11/15/17 13:29 Insulin Aspart (Novolog) 0 unit SC ACHS BELL PRN Reason: Protocol Last Admin: 11/15/17 09:07 Dose: Not Given Pantoprazole Sodium (Protonix Ec Tab) 40 mg PO DAILY BLEL Rosuvastatin Calcium (Crestor) 2.5 mg PO HS BELL Last Admin: 11/14/17 22:28 Dose: 2.5 mg - Labs Labs: 11/15/17 08:28 11/15/17 08:28 PT 11.8 SECONDS (9.7-12.2) 11/10/17 18:20 INR 1.1 11/10/17 18:20 APTT 40 SECONDS (21-34) H 11/10/17 18:20 - Constitutional Appears: Chronically Ill - Eye Exam Eye Exam: EOMI, PERRL - Respiratory Exam Respiratory Exam: Decreased Breath Sounds - Cardiovascular Exam Cardiovascular Exam: REGULAR RHYTHM - GI/Abdominal Exam GI & Abdominal Exam: Soft, Hypoactive Bowel Sounds. absent: Distended, Tenderness, Mass, Rebound - Extremities Exam Extremities Exam: Normal Inspection Assessment and Plan (1) Reflux esophagitis Assessment & Plan: On Protonix. No bleeding or ulceration Status: Acute (2) Duodenal nodule Assessment & Plan: Biopsies pending from EGD Status: Acute (3) Anemia Assessment & Plan: H/H stable at present Continue Protonix Caution with antiplatelet Rx or anticoagulant now held for five days post biopsy Status: Acute (4) Gastrointestinal hemorrhage Assessment & Plan: No current bleeding. Continue to observe and monitor Status: Acute
[2017-11-15] MEDS: Albuterol-Ipratrop 3 mg / 0.5 (3 ml) UD INH SCH ×3 (11:14→19:08)
[2017-11-15] MEDS: Pantoprazole 40 mg EC Tab PO SCH (13:18)
--- NOTE | 2017-11-15 15:07 | CP.CCUPN ---
<Aleks Spicer S - Last Filed: 11/15/17 15:38> CCU Subjective - Physician Review Subjective (Free Text): 11/15/17 14:52 PATIENT SERVICE ASSOCIATE called for patient due to lethargy and desaturation. Vitals at the time were 82% 02 sat and bp 80/50. BP improved spontaneously. Patient given Narcan and amp of D50. Patient placed on BiPAP and O2 improved. Patient was given dose of Vancomycin per ID. Patient transferred to the ICU to begin dialysis. CCU Objective - Vital Signs / Intake & Output Vital Signs (Last 4 hours): Vital Signs Temp Pulse Pulse Resp BP BP Pulse Ox 11/15/17 14:32 89 13 115/58 L 95 11/15/17 14:00 83 23 98 11/15/17 13:30 88 12 124/33 L 96 11/15/17 13:15 89 17 127/43 L 100 11/15/17 13:09 84 100/57 L 11/15/17 13:08 83 11/15/17 13:04 83 11 L 100/57 L 99 11/15/17 13:00 95 H 12 91 L 11/15/17 12:45 83 83 14 116/31 L 116/31 L 99 11/15/17 12:30 84 83 14 109/43 L 109/43 L 100 11/15/17 12:15 85 84 12 102/58 L 102/58 L 97 11/15/17 12:00 98.5 F 95 H 93 H 13 120/41 L 120/41 L 99 11/15/17 11:45 95 H 95 H 11 L 111/32 L 111/32 L 100 11/15/17 11:30 95 H 95 H 13 110/80 110/80 98 11/15/17 11:15 95 H 95 H 18 115/40 L 115/40 L 97 11/15/17 11:00 94 H 95 H 17 116/28 L 116/28 L 98 Intake and Output (Last 8hrs): Intake & Output 11/14/17 11/15/17 11/15/17 22:59 06:59 14:59 Intake Total 0 Output Total 0 Balance 0 Weight 209 lb Intake: Intake, IV Amount 0 Right Wrist 0 Oral 0 Output: Urine 0 Urine, Voided 0 Other: # Bowel Movements 0 - Physical Exam Physical Exam Limitations: Positive for: Other (lethargic but responsive) Head: Positive for: Atraumatic, Normocephalic Pupils: Positive for: PERRL Extroacular Muscles: Positive for: EOMI Conjunctiva: Positive for: Normal Mouth: Positive for: Moist Mucous Membranes Respiratory/Chest: Positive for: Clear to Auscultation, Good Air Exchange Cardiovascular: Positive for: Regular Rate and Rhythm Upper Extremity: Positive for: Normal Inspection Lower Extremity: Positive for: Normal Inspection Skin: Positive for: Warm, Dry Psychiatric: Positive for: Alert, Oriented x 3 - Medications Active Medications: Active Medications Generic Name Dose Route Start Last Admin Trade Name Freq PRN Reason Stop Dose Admin Acetaminophen 650 mg 11/14/17 18:00 Tylenol 650mg/20.3ml Solution Ud PO Q6 PRN Pain, Mild (1-3) Albumin Human 12.5 gm 11/15/17 08:35 11/15/17 09:56 Albumin Human 25% (12.5 Gm/50 Ml) IV 11/21/17 08:36 12.5 gm TTS PRN Administration hypotension Albuterol/Ipratropium 3 ml 11/15/17 08:36 11/15/17 11:14 Duoneb 3 Mg/0.5 Mg (3 Ml) Ud INH 3 ml RQ4 BELL Administration Vancomycin/Sodium Chloride 1 gm in 200 mls @ 133 mls/hr 11/17/17 10:00 Vancomycin 1 Gm/Ns 200 Ml IVPB 11/22/17 10:01 TTS BELL Protocol Insulin Aspart 0 unit 11/12/17 07:30 11/15/17 11:40 Novolog SC Not Given ACHS [facility] Protocol Pantoprazole Sodium 40 mg 11/15/17 10:00 11/15/17 13:18 Protonix Ec Tab PO 40 mg DAILY BELL Administration Rosuvastatin Calcium 2.5 mg 11/10/17 22:00 11/14/17 22:28 Crestor PO 2.5 mg HS BELL Administration - Patient Studies Lab Studies: Microbiology Studies 11/10/17 18:17 Blood Culture - Preliminary Blood NO GROWTH AFTER 4 DAYS 11/10/17 18:17 Blood Culture - Preliminary Blood NO GROWTH AFTER 4 DAYS Lab Studies 11/15/17 11/15/17 11/15/17 Range/Units 11:23 08:28 08:28 WBC (4.8-10.8) K/uL RBC (4.40-5.90) Mil/uL Hgb (12.0-18.0) g/dL Hct (35.0-51.0) % MCV (80.0-94.0) fL MCH (27.0-31.0) pg MCHC (33.0-37.0) g/dL RDW (11.5-14.5) % Plt Count (130-400) K/uL MPV (7.2-11.7) fL Neut % (Auto) (50.0-75.0) % Lymph % (Auto) (20.0-40.0) % [place] % (Auto) (0.0-10.0) % Eos % (Auto) (0.0-4.0) % Baso % (Auto) (0.0-2.0) % Neut # (Auto) (1.8-7.0) K/uL Lymph # (Auto) (1.0-4.3) K/uL [place] # (Auto) (0.0-0.8) K/uL Eos # (Auto) (0.0-0.7) K/uL Baso # (Auto) (0.0-0.2) K/uL Puncture Site pCO2 (35-45) mm/Hg pO2 (80-100) mm/Hg HCO3 (21-28) mmol/L ABG pH (7.35-7.45) ABG Total CO2 (22-28) mmol/L ABG O2 Saturation (95-98) % ABG Base Excess (-2.0-3.0) mmol/L Esvin Test ABG Potassium (3.6-5.2) mmol/L A-a O2 Difference mm/Hg Respiratory Index Sodium 140 (132-148) mmol/l Chloride 99 (98-107) mmol/L Glucose (75-110) mg/dl Lactate (0.7-2.1) mmol/L Mechanical Rate FiO2 % Crit Value Called To Crit Value Called By Crit Value Read Back Blood Gas Notified Time Potassium 5.6 H (3.6-5.2) mmol/L Carbon Dioxide 26 (22-30) mmol/L Anion Gap 21 H (10-20) BUN 40 H (9-20) mg/dL Creatinine 4.4 H (0.8-1.5) mg/dL Est GFR ( Amer) 16 Est GFR (Non-Af Amer) 14 POC Glucose (mg/dL) 80 (65-110) mg/dL Random Glucose 115 H (75-110) mg/dL Calcium 8.6 (8.6-10.4) mg/dl Total Bilirubin 0.9 (0.2-1.3) mg/dL AST 31 (17-59) U/L ALT 20 L D (21-72) U/L Alkaline Phosphatase 124 (38-126) U/L Ammonia 50 H D (9-33) umol/L Total Creatine Kinase 38 L (55-170) U/L CK-MB (Mass) 2.47 (0.0-3.38) ng/mL Troponin I 0.1160 (0.00-0.120) ng/mL NT-Pro-B Natriuret Pep 21065 H (0-900) pg/mL Total Protein 6.2 L (6.3-8.3) g/dL Albumin 3.0 L (3.5-5.0) g/dL Globulin 3.2 (2.2-3.9) gm/dL Albumin/Globulin Ratio 0.9 L (1.0-2.1) Arterial Blood Potassium (3.6-5.2) mmol/L 11/15/17 11/15/17 11/15/17 Range/Units 08:28 08:05 07:22 WBC 5.2 (4.8-10.8) K/uL RBC 2.79 L (4.40-5.90) Mil/uL Hgb 9.4 L (12.0-18.0) g/dL Hct 27.7 L (35.0-51.0) % MCV 99.3 H (80.0-94.0) fL MCH 33.5 H (27.0-31.0) pg MCHC 33.7 (33.0-37.0) g/dL RDW 22.0 H (11.5-14.5) % Plt Count 148 (130-400) K/uL MPV 8.6 (7.2-11.7) fL Neut % (Auto) 67.0 (50.0-75.0) % Lymph % (Auto) 14.1 L (20.0-40.0) % [place] % (Auto) 7.1 (0.0-10.0) % Eos % (Auto) 11.4 H (0.0-4.0) % Baso % (Auto) 0.4 (0.0-2.0) % Neut # (Auto) 3.5 (1.8-7.0) K/uL Lymph # (Auto) 0.7 L (1.0-4.3) K/uL [place] # (Auto) 0.4 (0.0-0.8) K/uL Eos # (Auto) 0.6 (0.0-0.7) K/uL Baso # (Auto) 0.0 (0.0-0.2) K/uL Puncture Site L/f pCO2 51 H (35-45) mm/Hg pO2 280 H (80-100) mm/Hg HCO3 18.1 L (21-28) mmol/L ABG pH 7.19 L* (7.35-7.45) ABG Total CO2 21.1 L (22-28) mmol/L ABG O2 Saturation 99.5 H (95-98) % ABG Base Excess -8.9 L (-2.0-3.0) mmol/L Esvin Test Na ABG Potassium 3.3 L (3.6-5.2) mmol/L A-a O2 Difference 369.0 mm/Hg Respiratory Index 1.3 Sodium 144.0 (132-148) mmol/l Chloride 114.0 H (98-107) mmol/L Glucose 78 (75-110) mg/dl Lactate 0.8 (0.7-2.1) mmol/L Mechanical Rate 12 FiO2 100.0 % Crit Value Called To Dr lexa bueno Crit Value Called By Anjel tripathi ticket printer Crit Value Read Back Y Blood Gas Notified Time 815 Potassium (3.6-5.2) mmol/L Carbon Dioxide (22-30) mmol/L Anion Gap (10-20) BUN (9-20) mg/dL Creatinine (0.8-1.5) mg/dL Est GFR ( Amer) Est GFR (Non-Af Amer) POC Glucose (mg/dL) 87 (65-110) mg/dL Random Glucose (75-110) mg/dL Calcium (8.6-10.4) mg/dl Total Bilirubin (0.2-1.3) mg/dL AST (17-59) U/L ALT (21-72) U/L Alkaline Phosphatase (38-126) U/L Ammonia (9-33) umol/L Total Creatine Kinase (55-170) U/L CK-MB (Mass) (0.0-3.38) ng/mL Troponin I (0.00-0.120) ng/mL NT-Pro-B Natriuret Pep (0-900) pg/mL Total Protein (6.3-8.3) g/dL Albumin (3.5-5.0) g/dL Globulin (2.2-3.9) gm/dL Albumin/Globulin Ratio (1.0-2.1) Arterial Blood Potassium 3.3 L (3.6-5.2) mmol/L 11/15/17 11/14/17 11/14/17 Range/Units 06:29 21:10 16:08 WBC (4.8-10.8) K/uL RBC (4.40-5.90) Mil/uL Hgb (12.0-18.0) g/dL Hct (35.0-51.0) % MCV (80.0-94.0) fL MCH (27.0-31.0) pg MCHC (33.0-37.0) g/dL RDW (11.5-14.5) % Plt Count (130-400) K/uL MPV (7.2-11.7) fL Neut % (Auto) (50.0-75.0) % Lymph % (Auto) (20.0-40.0) % [place] % (Auto) (0.0-10.0) % Eos % (Auto) (0.0-4.0) % Baso % (Auto) (0.0-2.0) % Neut # (Auto) (1.8-7.0) K/uL Lymph # (Auto) (1.0-4.3) K/uL [place] # (Auto) (0.0-0.8) K/uL Eos # (Auto) (0.0-0.7) K/uL Baso # (Auto) (0.0-0.2) K/uL Puncture Site pCO2 (35-45) mm/Hg pO2 (80-100) mm/Hg HCO3 (21-28) mmol/L ABG pH (7.35-7.45) ABG Total CO2 (22-28) mmol/L ABG O2 Saturation (95-98) % ABG Base Excess (-2.0-3.0) mmol/L Esvin Test ABG Potassium (3.6-5.2) mmol/L A-a O2 Difference mm/Hg Respiratory Index Sodium (132-148) mmol/l Chloride (98-107) mmol/L Glucose (75-110) mg/dl Lactate (0.7-2.1) mmol/L Mechanical Rate FiO2 % Crit Value Called To Crit Value Called By Crit Value Read Back Blood Gas Notified Time Potassium (3.6-5.2) mmol/L Carbon Dioxide (22-30) mmol/L Anion Gap (10-20) BUN (9-20) mg/dL Creatinine (0.8-1.5) mg/dL Est GFR ( Amer) Est GFR (Non-Af Amer) POC Glucose (mg/dL) 89 87 80 (65-110) mg/dL Random Glucose (75-110) mg/dL Calcium (8.6-10.4) mg/dl Total Bilirubin (0.2-1.3) mg/dL AST (17-59) U/L ALT (21-72) U/L Alkaline Phosphatase (38-126) U/L Ammonia (9-33) umol/L Total Creatine Kinase (55-170) U/L CK-MB (Mass) (0.0-3.38) ng/mL Troponin I (0.00-0.120) ng/mL NT-Pro-B Natriuret Pep (0-900) pg/mL Total Protein (6.3-8.3) g/dL Albumin (3.5-5.0) g/dL Globulin (2.2-3.9) gm/dL Albumin/Globulin Ratio (1.0-2.1) Arterial Blood Potassium (3.6-5.2) mmol/L Laboratory Results - last 24 hr 11/14/17 11/14/17 11/15/17 16:08 21:10 06:29 WBC RBC Hgb Hct MCV MCH MCHC RDW Plt Count MPV Neut % (Auto) Lymph % (Auto) [place] % (Auto) Eos % (Auto) Baso % (Auto) Neut # (Auto) Lymph # (Auto) [place] # (Auto) Eos # (Auto) Baso # (Auto) Puncture Site pCO2 pO2 HCO3 ABG pH ABG Total CO2 ABG O2 Saturation ABG Base Excess Esvin Test ABG Potassium A-a O2 Difference Respiratory Index Sodium Chloride Glucose Lactate Mechanical Rate FiO2 Crit Value Called To Crit Value Called By Crit Value Read Back Blood Gas Notified Time Potassium Carbon Dioxide Anion Gap BUN Creatinine Est GFR ( Amer) Est GFR (Non-Af Amer) POC Glucose (mg/dL) 80 87 89 Random Glucose Calcium Total Bilirubin AST ALT Alkaline Phosphatase Ammonia Total Creatine Kinase CK-MB (Mass) Troponin I NT-Pro-B Natriuret Pep Total Protein Albumin Globulin Albumin/Globulin Ratio Arterial Blood Potassium 11/15/17 11/15/17 11/15/17 07:22 08:05 08:28 WBC 5.2 RBC 2.79 L Hgb 9.4 L Hct 27.7 L MCV 99.3 H MCH 33.5 H MCHC 33.7 RDW 22.0 H Plt Count 148 MPV 8.6 Neut % (Auto) 67.0 Lymph % (Auto) 14.1 L [place] % (Auto) 7.1 Eos % (Auto) 11.4 H Baso % (Auto) 0.4 Neut # (Auto) 3.5 Lymph # (Auto) 0.7 L [place] # (Auto) 0.4 Eos # (Auto) 0.6 Baso # (Auto) 0.0 Puncture Site L/f pCO2 51 H pO2 280 H HCO3 18.1 L ABG pH 7.19 L* ABG Total CO2 21.1 L ABG O2 Saturation 99.5 H ABG Base Excess -8.9 L Esvin Test Na ABG Potassium 3.3 L A-a O2 Difference 369.0 Respiratory Index 1.3 Sodium 144.0 Chloride 114.0 H Glucose 78 Lactate 0.8 Mechanical Rate 12 FiO2 100.0 Crit Value Called To Dr lexa bueno Crit Value Called By Anjel tripathi crt Crit Value Read Back Y Blood Gas Notified Time 815 Potassium Carbon Dioxide Anion Gap BUN Creatinine Est GFR ( Amer) Est GFR (Non-Af Amer) POC Glucose (mg/dL) 87 Random Glucose Calcium Total Bilirubin AST ALT Alkaline Phosphatase Ammonia Total Creatine Kinase CK-MB (Mass) Troponin I NT-Pro-B Natriuret Pep Total Protein Albumin Globulin Albumin/Globulin Ratio Arterial Blood Potassium 3.3 L 11/15/17 11/15/17 11/15/17 08:28 08:28 11:23 WBC RBC Hgb Hct MCV MCH MCHC RDW Plt Count MPV Neut % (Auto) Lymph % (Auto) [place] % (Auto) Eos % (Auto) Baso % (Auto) Neut # (Auto) Lymph # (Auto) [place] # (Auto) Eos # (Auto) Baso # (Auto) Puncture Site pCO2 pO2 HCO3 ABG pH ABG Total CO2 ABG O2 Saturation ABG Base Excess Esvin Test ABG Potassium A-a O2 Difference Respiratory Index Sodium 140 Chloride 99 Glucose Lactate Mechanical Rate FiO2 Crit Value Called To Crit Value Called By Crit Value Read Back Blood Gas Notified Time Potassium 5.6 H Carbon Dioxide 26 Anion Gap 21 H BUN 40 H Creatinine 4.4 H Est GFR ( Amer) 16 Est GFR (Non-Af Amer) 14 POC Glucose (mg/dL) 80 Random Glucose 115 H Calcium 8.6 Total Bilirubin 0.9 AST 31 ALT 20 L D Alkaline Phosphatase 124 Ammonia 50 H D Total Creatine Kinase 38 L CK-MB (Mass) 2.47 Troponin I 0.1160 NT-Pro-B Natriuret Pep 98796 H Total Protein 6.2 L Albumin 3.0 L Globulin 3.2 Albumin/Globulin Ratio 0.9 L Arterial Blood Potassium Fingerstick Blood Sugar Results: 80 Critical Care Progress Note - Nutrition Nutrition: Nutrition Category Date Time Status Liquid Diet [DIET] Diets 11/14/17 Dinner Active Assessment/Plan - Assessment and Plan (Free Text) Assessment: This is a 67 year old male PMHx ESRD on HD TTS, COPD, CAD, CVA brought in from intermediate for symptomatic anemia with bradycardia and hypotension. Patient diagnosed with upper GI bleed. He received a pacemaker on 11/13/17 in order to get cardiac clearance for EGD. Patient underwent EGD on 11/14/17 which showed erosive gastritis without bleeding. There was also esophagitis and duodenal nodules which were biopsied (negative). Patient had PATIENT SERVICE ASSOCIATE for lethargy likely due to polypharmacy from Percocet and Ambien which were discontinued. Neuro Awake, verbal Cardio Assessment: Hypotension 2/2 hypovolemia, CAD Crestor 2.5 mg PO HS Cardiology on consult EP on consult-PPM placed on 11/13/17 Pulm Keep on BiPAP--Titrate FiO2 to keep saturation above 92% GI Assessment: Upper GI bleed Liquid Diet--advance as tolerated Protonix 40 mg PO daily Renal Assessment: ESRD on HD TTS Nephro on consult, HD initated TTS Albumin prn with dialysis Heme/onc Assessment: Anemia due to upper GI bleed Currently hemodynamically stable Prophylaxis VTE contraindicated due to GI bleed Protonix 40 mg PO daily Disposition: Will check another ABG Discussed with Dr. Lexa Bueno <Jean Bueno - Last Filed: 11/15/17 16:16> CCU Objective - Vital Signs / Intake & Output Vital Signs (Last 4 hours): Vital Signs Pulse Pulse Resp BP BP Pulse Ox 11/15/17 15:00 87 11 L 100 11/15/17 14:32 89 13 115/58 L 95 11/15/17 14:00 83 23 98 11/15/17 13:30 88 12 124/33 L 96 11/15/17 13:15 89 17 127/43 L 100 11/15/17 13:09 84 100/57 L 11/15/17 13:08 83 11/15/17 13:04 83 11 L 100/57 L 99 11/15/17 13:00 95 H 12 91 L 11/15/17 12:45 83 83 14 116/31 L 116/31 L 99 11/15/17 12:30 84 83 14 109/43 L 109/43 L 100 11/15/17 12:15 85 84 12 102/58 L 102/58 L 97 Intake and Output (Last 8hrs): Intake & Output 11/15/17 11/15/17 11/15/17 06:59 14:59 22:59 Intake Total 450 0 Output Total 2800 0 Balance -2350 0 Weight 209 lb Intake: Intake, IV Amount 200 Right Wrist 200 Oral 250 0 Output: Urine 0 0 Urine, Voided 0 0 Other 2800 Other: # Bowel Movements 0 0 - Medications Active Medications: Active Medications Generic Name Dose Route Start Last Admin Trade Name Freq PRN Reason Stop Dose Admin Acetaminophen 650 mg 11/14/17 18:00 Tylenol 650mg/20.3ml Solution Ud PO Q6 PRN Pain, Mild (1-3) Albumin Human 12.5 gm 11/15/17 08:35 11/15/17 09:56 Albumin Human 25% (12.5 Gm/50 Ml) IV 11/21/17 08:36 12.5 gm TTS PRN Administration hypotension Albuterol/Ipratropium 3 ml 11/15/17 08:36 11/15/17 16:05 Duoneb 3 Mg/0.5 Mg (3 Ml) Ud INH 3 ml RQ4 BELL Administration Vancomycin/Sodium Chloride 1 gm in 200 mls @ 133 mls/hr 11/17/17 10:00 Vancomycin 1 Gm/Ns 200 Ml IVPB 11/22/17 10:01 TTS BELL Protocol Insulin Aspart 0 unit 11/12/17 07:30 11/15/17 11:40 Novolog SC Not Given ACHS BELL Protocol Pantoprazole Sodium 40 mg 11/15/17 10:00 11/15/17 13:18 Protonix Ec Tab PO 40 mg DAILY BELL Administration Rosuvastatin Calcium 2.5 mg 11/10/17 22:00 11/14/17 22:28 Crestor PO 2.5 mg HS BELL Administration - Patient Studies Lab Studies: Microbiology Studies 11/10/17 18:17 Blood Culture - Preliminary Blood NO GROWTH AFTER 4 DAYS 11/10/17 18:17 Blood Culture - Preliminary Blood NO GROWTH AFTER 4 DAYS Lab Studies 11/15/17 11/15/17 11/15/17 Range/Units 11:23 08:28 08:28 WBC (4.8-10.8) K/uL RBC (4.40-5.90) Mil/uL Hgb (12.0-18.0) g/dL Hct (35.0-51.0) % MCV (80.0-94.0) fL MCH (27.0-31.0) pg MCHC (33.0-37.0) g/dL RDW (11.5-14.5) % Plt Count (130-400) K/uL MPV (7.2-11.7) fL Neut % (Auto) (50.0-75.0) % Lymph % (Auto) (20.0-40.0) % [place] % (Auto) (0.0-10.0) % Eos % (Auto) (0.0-4.0) % Baso % (Auto) (0.0-2.0) % Neut # (Auto) (1.8-7.0) K/uL Lymph # (Auto) (1.0-4.3) K/uL [place] # (Auto) (0.0-0.8) K/uL Eos # (Auto) (0.0-0.7) K/uL Baso # (Auto) (0.0-0.2) K/uL Puncture Site pCO2 (35-45) mm/Hg pO2 (80-100) mm/Hg HCO3 (21-28) mmol/L ABG pH (7.35-7.45) ABG Total CO2 (22-28) mmol/L ABG O2 Saturation (95-98) % ABG Base Excess (-2.0-3.0) mmol/L Esvin Test ABG Potassium (3.6-5.2) mmol/L A-a O2 Difference mm/Hg Respiratory Index Sodium 140 (132-148) mmol/l Chloride 99 (98-107) mmol/L Glucose (75-110) mg/dl Lactate (0.7-2.1) mmol/L Mechanical Rate FiO2 % Crit Value Called To Crit Value Called By Crit Value Read Back Blood Gas Notified Time Potassium 5.6 H (3.6-5.2) mmol/L Carbon Dioxide 26 (22-30) mmol/L Anion Gap 21 H (10-20) BUN 40 H (9-20) mg/dL Creatinine 4.4 H (0.8-1.5) mg/dL Est GFR ( Amer) 16 Est GFR (Non-Af Amer) 14 POC Glucose (mg/dL) 80 (65-110) mg/dL Random Glucose 115 H (75-110) mg/dL Calcium 8.6 (8.6-10.4) mg/dl Total Bilirubin 0.9 (0.2-1.3) mg/dL AST 31 (17-59) U/L ALT 20 L D (21-72) U/L Alkaline Phosphatase 124 (38-126) U/L Ammonia 50 H D (9-33) umol/L Total Creatine Kinase 38 L (55-170) U/L CK-MB (Mass) 2.47 (0.0-3.38) ng/mL Troponin I 0.1160 (0.00-0.120) ng/mL NT-Pro-B Natriuret Pep 44235 H (0-900) pg/mL Total Protein 6.2 L (6.3-8.3) g/dL Albumin 3.0 L (3.5-5.0) g/dL Globulin 3.2 (2.2-3.9) gm/dL Albumin/Globulin Ratio 0.9 L (1.0-2.1) Arterial Blood Potassium (3.6-5.2) mmol/L 11/15/17 11/15/17 11/15/17 Range/Units 08:28 08:05 07:22 WBC 5.2 (4.8-10.8) K/uL RBC 2.79 L (4.40-5.90) Mil/uL Hgb 9.4 L (12.0-18.0) g/dL Hct 27.7 L (35.0-51.0) % MCV 99.3 H (80.0-94.0) fL MCH 33.5 H (27.0-31.0) pg MCHC 33.7 (33.0-37.0) g/dL RDW 22.0 H (11.5-14.5) % Plt Count 148 (130-400) K/uL MPV 8.6 (7.2-11.7) fL Neut % (Auto) 67.0 (50.0-75.0) % Lymph % (Auto) 14.1 L (20.0-40.0) % [place] % (Auto) 7.1 (0.0-10.0) % Eos % (Auto) 11.4 H (0.0-4.0) % Baso % (Auto) 0.4 (0.0-2.0) % Neut # (Auto) 3.5 (1.8-7.0) K/uL Lymph # (Auto) 0.7 L (1.0-4.3) K/uL [place] # (Auto) 0.4 (0.0-0.8) K/uL Eos # (Auto) 0.6 (0.0-0.7) K/uL Baso # (Auto) 0.0 (0.0-0.2) K/uL Puncture Site L/f pCO2 51 H (35-45) mm/Hg pO2 280 H (80-100) mm/Hg HCO3 18.1 L (21-28) mmol/L ABG pH 7.19 L* (7.35-7.45) ABG Total CO2 21.1 L (22-28) mmol/L ABG O2 Saturation 99.5 H (95-98) % ABG Base Excess -8.9 L (-2.0-3.0) mmol/L Esvin Test Na ABG Potassium 3.3 L (3.6-5.2) mmol/L A-a O2 Difference 369.0 mm/Hg Respiratory Index 1.3 Sodium 144.0 (132-148) mmol/l Chloride 114.0 H (98-107) mmol/L Glucose 78 (75-110) mg/dl Lactate 0.8 (0.7-2.1) mmol/L Mechanical Rate 12 FiO2 100.0 % Crit Value Called To Dr lexa bueno Crit Value Called By Anjel tripathi ticket printer Crit Value Read Back Y Blood Gas Notified Time 815 Potassium (3.6-5.2) mmol/L Carbon Dioxide (22-30) mmol/L Anion Gap (10-20) BUN (9-20) mg/dL Creatinine (0.8-1.5) mg/dL Est GFR ( Amer) Est GFR (Non-Af Amer) POC Glucose (mg/dL) 87 (65-110) mg/dL Random Glucose (75-110) mg/dL Calcium (8.6-10.4) mg/dl Total Bilirubin (0.2-1.3) mg/dL AST (17-59) U/L ALT (21-72) U/L Alkaline Phosphatase (38-126) U/L Ammonia (9-33) umol/L Total Creatine Kinase (55-170) U/L CK-MB (Mass) (0.0-3.38) ng/mL Troponin I (0.00-0.120) ng/mL NT-Pro-B Natriuret Pep (0-900) pg/mL Total Protein (6.3-8.3) g/dL Albumin (3.5-5.0) g/dL Globulin (2.2-3.9) gm/dL Albumin/Globulin Ratio (1.0-2.1) Arterial Blood Potassium 3.3 L (3.6-5.2) mmol/L 11/15/17 11/14/17 Range/Units 06:29 21:10 WBC (4.8-10.8) K/uL RBC (4.40-5.90) Mil/uL Hgb (12.0-18.0) g/dL Hct (35.0-51.0) % MCV (80.0-94.0) fL MCH (27.0-31.0) pg MCHC (33.0-37.0) g/dL RDW (11.5-14.5) % Plt Count (130-400) K/uL MPV (7.2-11.7) fL Neut % (Auto) (50.0-75.0) % Lymph % (Auto) (20.0-40.0) % [place] % (Auto) (0.0-10.0) % Eos % (Auto) (0.0-4.0) % Baso % (Auto) (0.0-2.0) % Neut # (Auto) (1.8-7.0) K/uL Lymph # (Auto) (1.0-4.3) K/uL [place] # (Auto) (0.0-0.8) K/uL Eos # (Auto) (0.0-0.7) K/uL Baso # (Auto) (0.0-0.2) K/uL Puncture Site pCO2 (35-45) mm/Hg pO2 (80-100) mm/Hg HCO3 (21-28) mmol/L ABG pH (7.35-7.45) ABG Total CO2 (22-28) mmol/L ABG O2 Saturation (95-98) % ABG Base Excess (-2.0-3.0) mmol/L Esvin Test ABG Potassium (3.6-5.2) mmol/L A-a O2 Difference mm/Hg Respiratory Index Sodium (132-148) mmol/l Chloride (98-107) mmol/L Glucose (75-110) mg/dl Lactate (0.7-2.1) mmol/L Mechanical Rate FiO2 % Crit Value Called To Crit Value Called By Crit Value Read Back Blood Gas Notified Time Potassium (3.6-5.2) mmol/L Carbon Dioxide (22-30) mmol/L Anion Gap (10-20) BUN (9-20) mg/dL Creatinine (0.8-1.5) mg/dL Est GFR ( Amer) Est GFR (Non-Af Amer) POC Glucose (mg/dL) 89 87 (65-110) mg/dL Random Glucose (75-110) mg/dL Calcium (8.6-10.4) mg/dl Total Bilirubin (0.2-1.3) mg/dL AST (17-59) U/L ALT (21-72) U/L Alkaline Phosphatase (38-126) U/L Ammonia (9-33) umol/L Total Creatine Kinase (55-170) U/L CK-MB (Mass) (0.0-3.38) ng/mL Troponin I (0.00-0.120) ng/mL NT-Pro-B Natriuret Pep (0-900) pg/mL Total Protein (6.3-8.3) g/dL Albumin (3.5-5.0) g/dL Globulin (2.2-3.9) gm/dL Albumin/Globulin Ratio (1.0-2.1) Arterial Blood Potassium (3.6-5.2) mmol/L Laboratory Results - last 24 hr 11/14/17 11/15/17 11/15/17 21:10 06:29 07:22 WBC RBC Hgb Hct MCV MCH MCHC RDW Plt Count MPV Neut % (Auto) Lymph % (Auto) [place] % (Auto) Eos % (Auto) Baso % (Auto) Neut # (Auto) Lymph # (Auto) [place] # (Auto) Eos # (Auto) Baso # (Auto) Puncture Site pCO2 pO2 HCO3 ABG pH ABG Total CO2 ABG O2 Saturation ABG Base Excess Esvin Test ABG Potassium A-a O2 Difference Respiratory Index Sodium Chloride Glucose Lactate Mechanical Rate FiO2 Crit Value Called To Crit Value Called By Crit Value Read Back Blood Gas Notified Time Potassium Carbon Dioxide Anion Gap BUN Creatinine Est GFR ( Amer) Est GFR (Non-Af Amer) POC Glucose (mg/dL) 87 89 87 Random Glucose Calcium Total Bilirubin AST ALT Alkaline Phosphatase Ammonia Total Creatine Kinase CK-MB (Mass) Troponin I NT-Pro-B Natriuret Pep Total Protein Albumin Globulin Albumin/Globulin Ratio Arterial Blood Potassium 11/15/17 11/15/17 11/15/17 08:05 08:28 08:28 WBC 5.2 RBC 2.79 L Hgb 9.4 L Hct 27.7 L MCV 99.3 H MCH 33.5 H MCHC 33.7 RDW 22.0 H Plt Count 148 MPV 8.6 Neut % (Auto) 67.0 Lymph % (Auto) 14.1 L [place] % (Auto) 7.1 Eos % (Auto) 11.4 H Baso % (Auto) 0.4 Neut # (Auto) 3.5 Lymph # (Auto) 0.7 L [place] # (Auto) 0.4 Eos # (Auto) 0.6 Baso # (Auto) 0.0 Puncture Site L/f pCO2 51 H pO2 280 H HCO3 18.1 L ABG pH 7.19 L* ABG Total CO2 21.1 L ABG O2 Saturation 99.5 H ABG Base Excess -8.9 L Esvin Test Na ABG Potassium 3.3 L A-a O2 Difference 369.0 Respiratory Index 1.3 Sodium 144.0 140 Chloride 114.0 H 99 Glucose 78 Lactate 0.8 Mechanical Rate 12 FiO2 100.0 Crit Value Called To Dr lexa bueno Crit Value Called By Anjel tripathi ticket printer Crit Value Read Back Y Blood Gas Notified Time 815 Potassium 5.6 H Carbon Dioxide 26 Anion Gap 21 H BUN 40 H Creatinine 4.4 H Est GFR ( Amer) 16 Est GFR (Non-Af Amer) 14 POC Glucose (mg/dL) Random Glucose 115 H Calcium 8.6 Total Bilirubin 0.9 AST 31 ALT 20 L D Alkaline Phosphatase 124 Ammonia Total Creatine Kinase 38 L CK-MB (Mass) 2.47 Troponin I 0.1160 NT-Pro-B Natriuret Pep 82713 H Total Protein 6.2 L Albumin 3.0 L Globulin 3.2 Albumin/Globulin Ratio 0.9 L Arterial Blood Potassium 3.3 L 11/15/17 11/15/17 08:28 11:23 WBC RBC Hgb Hct MCV MCH MCHC RDW Plt Count MPV Neut % (Auto) Lymph % (Auto) [place] % (Auto) Eos % (Auto) Baso % (Auto) Neut # (Auto) Lymph # (Auto) [place] # (Auto) Eos # (Auto) Baso # (Auto) Puncture Site pCO2 pO2 HCO3 ABG pH ABG Total CO2 ABG O2 Saturation ABG Base Excess Esvin Test ABG Potassium A-a O2 Difference Respiratory Index Sodium Chloride Glucose Lactate Mechanical Rate FiO2 Crit Value Called To Crit Value Called By Crit Value Read Back Blood Gas Notified Time Potassium Carbon Dioxide Anion Gap BUN Creatinine Est GFR ( Amer) Est GFR (Non-Af Amer) POC Glucose (mg/dL) 80 Random Glucose Calcium Total Bilirubin AST ALT Alkaline Phosphatase Ammonia 50 H D Total Creatine Kinase CK-MB (Mass) Troponin I NT-Pro-B Natriuret Pep Total Protein Albumin Globulin Albumin/Globulin Ratio Arterial Blood Potassium Critical Care Progress Note - Nutrition Nutrition: Nutrition Category Date Time Status Liquid Diet [DIET] Diets 11/14/17 Dinner Active Assessment/Plan - Assessment and Plan (Free Text) Assessment: Patient admitted to MICU for hypercapneic respiratory failure. -Last night patient received 5 mg of ambien and percocet -avoid any sedating medications -continue bi-pap until ambien and percocet metabolized out -continue to monitor patient until sedation and respiratory failure resolved -repeat ABG d/w ICU team - Date & Time Date: 11/15/17 Time: 16:16
--- NOTE | 2017-11-15 19:07 | CP.PCM.PN ---
Subjective - Date & Time of Evaluation Date of Evaluation: 11/15/17 Time of Evaluation: 08:00 - Subjective Subjective: events noted Cardio re-eval requested all sedatives d/c'd was fluid overloaded Objective - Vital Signs/Intake and Output Vital Signs (last 24 hours): Temp Pulse Resp BP Pulse Ox 98.2 F 75 9 L 107/78 100 11/15/17 16:00 11/15/17 19:00 11/15/17 19:00 11/15/17 18:32 11/15/17 19:00 Intake and Output: 11/15/17 11/16/17 18:59 06:59 Intake Total 700 0 Output Total 2800 0 Balance -2100 0 - Medications Medications: Current Medications Acetaminophen (Tylenol 650mg/20.3ml Solution Ud) 650 mg PO Q6 PRN PRN Reason: Pain, Mild (1-3) Albumin Human (Albumin Human 25% (12.5 Gm/50 Ml)) 12.5 gm IV TTS PRN PRN Reason: hypotension Stop: 11/21/17 08:36 Last Admin: 11/15/17 09:56 Dose: 12.5 gm Albuterol/Ipratropium (Duoneb 3 Mg/0.5 Mg (3 Ml) Ud) 3 ml INH RQ4 BELL Last Admin: 11/15/17 16:05 Dose: 3 ml Vancomycin/Sodium Chloride (Vancomycin 1 Gm/Ns 200 Ml) 1 gm in 200 mls @ 133 mls/hr IVPB TTS BELL PRN Reason: Protocol Stop: 11/22/17 10:01 Insulin Aspart (Novolog) 0 unit SC ACHS BELL PRN Reason: Protocol Last Admin: 11/15/17 16:37 Dose: Not Given Pantoprazole Sodium (Protonix Ec Tab) 40 mg PO DAILY BELL Last Admin: 11/15/17 13:18 Dose: 40 mg Rosuvastatin Calcium (Crestor) 2.5 mg PO HS BELL Last Admin: 11/14/17 22:28 Dose: 2.5 mg - Labs Labs: 11/15/17 08:28 11/15/17 08:28 PT 11.8 SECONDS (9.7-12.2) 11/10/17 18:20 INR 1.1 11/10/17 18:20 APTT 40 SECONDS (21-34) H 11/10/17 18:20 - Constitutional Appears: Non-toxic, Chronically Ill - Head Exam Head Exam: NORMOCEPHALIC - Eye Exam Eye Exam: PERRL - ENT Exam ENT Exam: Mucous Membranes Dry - Neck Exam Neck Exam: absent: Lymphadenopathy - Respiratory Exam Respiratory Exam: Decreased Breath Sounds - Cardiovascular Exam Cardiovascular Exam: REGULAR RHYTHM - GI/Abdominal Exam GI & Abdominal Exam: Distended - Rectal Exam Rectal Exam: Deferred - Exam Exam: NORMAL INSPECTION - Extremities Exam Extremities Exam: absent: Pedal Edema - Back Exam Back Exam: absent: CVA tenderness (L), CVA tenderness (R) - Neurological Exam Neurological Exam: Alert, Awake, Oriented x3 - Psychiatric Exam Psychiatric exam: Normal Mood - Skin Skin Exam: Dry Assessment and Plan (1) Anemia Status: Acute (2) Gastrointestinal hemorrhage Status: Acute (3) Acute hyperkalemia Status: Acute (4) CAD (coronary artery disease) of artery bypass graft Status: Acute (5) CHF (congestive heart failure), NYHA class III Status: Acute (6) COPD (chronic obstructive pulmonary disease) Status: Acute (7) ESRD (end stage renal disease) on dialysis Status: Acute (8) ASHD (arteriosclerotic heart disease) Status: Chronic (9) Diabetes Status: Chronic (10) History of CVA (cerebrovascular accident) Status: Chronic (11) Hypertension Status: Chronic (12) Sleep apnea Status: Chronic
--- NOTE | 2017-11-15 19:28 | CP.PCM.PN ---
Subjective - Date & Time of Evaluation Date of Evaluation: 11/15/17 Time of Evaluation: 19:28 - Subjective Subjective: pt is seen and examined, follow up consult is dictated #[id number] s/p hd today , uf 2500ml, s/p BAND SINGER this am for sob, hypoxia Objective - Vital Signs/Intake and Output Vital Signs (last 24 hours): Temp Pulse Resp BP Pulse Ox 98.2 F 75 9 L 107/78 100 11/15/17 16:00 11/15/17 19:00 11/15/17 19:00 11/15/17 18:32 11/15/17 19:00 Intake and Output: 11/15/17 11/16/17 18:59 06:59 Intake Total 700 0 Output Total 2800 0 Balance -2100 0 - Medications Medications: Current Medications Acetaminophen (Tylenol 650mg/20.3ml Solution Ud) 650 mg PO Q6 PRN PRN Reason: Pain, Mild (1-3) Albumin Human (Albumin Human 25% (12.5 Gm/50 Ml)) 12.5 gm IV TTS PRN PRN Reason: hypotension Stop: 11/21/17 08:36 Last Admin: 11/15/17 09:56 Dose: 12.5 gm Albuterol/Ipratropium (Duoneb 3 Mg/0.5 Mg (3 Ml) Ud) 3 ml INH RQ4 BELL Last Admin: 11/15/17 19:08 Dose: 3 ml Vancomycin/Sodium Chloride (Vancomycin 1 Gm/Ns 200 Ml) 1 gm in 200 mls @ 133 mls/hr IVPB TTS BELL PRN Reason: Protocol Stop: 11/22/17 10:01 Insulin Aspart (Novolog) 0 unit SC ACHS BELL PRN Reason: Protocol Last Admin: 11/15/17 16:37 Dose: Not Given Pantoprazole Sodium (Protonix Ec Tab) 40 mg PO DAILY BELL Last Admin: 11/15/17 13:18 Dose: 40 mg Rosuvastatin Calcium (Crestor) 2.5 mg PO HS BELL Last Admin: 11/14/17 22:28 Dose: 2.5 mg - Labs Labs: 11/15/17 08:28 11/15/17 08:28 PT 11.8 SECONDS (9.7-12.2) 11/10/17 18:20 INR 1.1 11/10/17 18:20 APTT 40 SECONDS (21-34) H 11/10/17 18:20
[2017-11-15] MEDS: Rosuvastatin Calcium 2.5 mg Tab PO SCH (21:37)
[2017-11-16] MEDS: Albuterol-Ipratrop 3 mg / 0.5 (3 ml) UD INH SCH ×6 (00:05→19:35)
--- NOTE | 2017-11-16 05:59 | PN ---
DATE: 11/15/2017. FOLLOWUP RENAL CONSULTATION LOCATION: ICU, bed 18. REQUESTED BY: Dr. Fabiano Rodas. REASON FOR RENAL CONSULTATION: End-stage renal disease, shortness of breath. HISTORY OF PRESENT ILLNESS: Mr. Gonzales is a 67 years old obese elderly [place] male with a past medical history significant for longstanding hypertension, diabetes, CVA with left-sided weakness and end-stage renal disease, coronary artery disease status post CABG was complaining of shortness of breath this morning around 07:30, the patient had [facility] for hypoxia and subsequently the patient was transferred to ICU and arranged for emergency hemodialysis this morning. The patient had hemodialysis this morning, had ultrafiltration about 2500 mL. Status post pacemaker placement on Sunday, and status post EGD yesterday and also pacemaker on Sunday. The patient is resting comfortably on nasal cannula. No chest pain, no palpitation. No fever, no cough. The patient is very anxious and slightly confused also. PHYSICAL EXAMINATION: VITAL SIGNS: This evening as follows; blood pressure 113/26, pulse 83, respiration 25 and saturation 97% and temperature 98.3. GENERAL: Mr. Gonzales is a 67 years old elderly [place] male, moderately built, moderately nourished, not in distress. HEENT: Pupils normal, react to light and accommodation. Conjunctivae pink. Sclerae anicteric. Tongue is moist. Trachea is midline. LUNGS: Symmetric on both sides. Bilateral breath sounds present. Clear to auscultation. CVS: [place] at the fifth intercostal space, midclavicular line. S1 and S2 audible. No murmur or gallop. The patient has a midsternal scar present from the previous CABG. ABDOMEN: Soft, tympanic. No guarding, no rigidity. No hepatosplenomegaly. SAP ANALYST: The patient is alert, awake, confused from time to time. EXTREMITIES: No cyanosis, no clubbing. The patient has 1+ edema in both lower extremities. CURRENT MEDICATIONS: Include as follows; albumin 25% p.r.n. for hypotension during dialysis, Crestor 2.5 mg p.o. at bedtime, DuoNeb inhaler every 4 hours, NovoLog insulin per sliding scale, Protonix 40 mg p.o. daily, Tylenol and also vancomycin 1 gm three times a week. LABORATORY DATA: Include as follows as of this morning 11/15/2017; WBC 5.2, hemoglobin 9.4, hematocrit is 27.7, platelets 148. His ABG pH 7.19, pCO2 51, pO2 is 280, bicarb 21, saturation 99.5 on 100% nonrebreathing. Sodium 140, potassium 5.6, chloride 99, CO2 26, BUN 40, creatinine 4.4, glucose 150, calcium 8.6, total bili 0.9, AST 31, ALT 20, alkaline phos 124, ammonia 50, CPK is 38 and troponin 0.116 and proBNP 20,700, total protein 6, albumin is 3. Chest x-ray as of 11/15/2017 during [facility] impression; worsening left pleural effusion, question of left pulmonary edema, persistent cardiomegaly and moderate pulmonary venous congestion. ASSESSMENT: In summary, Mr. Gonzales is a 67 years old elderly [place] male with history of hypertension, diabetes, end-stage renal disease, coronary artery disease status post coronary artery bypass graft, cerebrovascular accident with left-sided weakness was initially admitted to the hospital with hypotension, altered mental status and severe anemia and gastrointestinal bleed, status post pacemaker placement and status post EGD yesterday. The patient had renal replacement therapy this morning for shortness of breath and hypoxia. The patient underwent emergency hemodialysis this morning, unable to do much ultrafiltration on Sunday due to severe hypotension during dialysis. The patient tolerated hemodialysis today, had ultrafiltration about 2500. 1. End-stage renal disease. Continue hemodialysis three times a week Sunday, , Sunday. 2. Status post upper gastrointestinal bleed, now hemoglobin and hematocrit is stable. 3. Hypertension. 4. Congestive heart failure. PLAN: Restrict fluids to 1 liter per day and we will reevaluate in a.m. for possible extra hemodialysis. Case discussed with Dr. Rodas in rounds and discussed with the patient's niece at bedside. We will follow with you. Thank you for allowing me to participate in your patient's care. Martin Ortiz MD
[2017-11-16 06:00] LABS: BASO % 0.5 % (0.0-2.0); EOS # 0.9 K/uL (0.0-0.7); EOS % 17.9 % (0.0-4.0); HEMOGLOBIN 9.4 g/dL (12.0-18.0); LYMPH # 0.6 K/uL (1.0-4.3); MEAN CELL VOLUME 99.2 fL (80.0-94.0); MEAN CORPUSCULAR HEMOGLOBIN 33.5 pg (27.0-31.0); MEAN CORPUSCULAR HGB CONC 33.7 g/dL (33.0-37.0); MEAN PLATELET VOLUME 8.1 fL (7.2-11.7); MONO # 0.5 K/uL (0.0-0.8); NEUT # 3.1 K/uL (1.8-7.0); NEUT % 59.6 % (50.0-75.0); NRBC % 0.3 % (0.0-2.0); RBC 2.79 Mil/uL (4.40-5.90); RED CELL DISTRIBUTION WIDTH 21.2 % (11.5-14.5); WHITE BLOOD COUNT 5.1 K/uL (4.8-10.8)
[2017-11-16 06:24] LABS: ALBUMIN 2.9 g/dL (3.5-5.0); CALCIUM 8.4 mg/dl (8.6-10.4)
[2017-11-16] MEDS: (Novolog) Insulin Aspart, Recombinant 100 u/ml 10 ml vial SC SCH ×4 (07:47→21:52)
[2017-11-16] MEDS: Pantoprazole 40 mg EC Tab PO SCH (09:11)
--- NOTE | 2017-11-16 12:56 | CP.CCUPN ---
<Aleks Spicer - Last Filed: 11/16/17 12:46> CCU Subjective - Physician Review Subjective (Free Text): 11/15/17 14:52 [facility] [employer] called for patient due to lethargy and desaturation. Vitals at the time were 82% 02 sat and bp 80/50. BP improved spontaneously. Patient given Narcan and amp of D50. Patient placed on BiPAP and O2 improved. Patient was given dose of Vancomycin per ID. Patient transferred to the ICU to begin dialysis. 11/16/17 12:47 Patient seen and examined. Patient is improved after dialysis session from yesterday. CCU Objective - Vital Signs / Intake & Output Vital Signs (Last 4 hours): Vital Signs Temp Pulse Resp BP Pulse Ox 11/16/17 11:33 81 13 144/47 L 97 11/16/17 11:00 83 18 98 11/16/17 10:32 80 11 L 142/48 L 98 11/16/17 10:00 97.7 F 81 10 L 100 11/16/17 09:00 84 10 L 100 Intake and Output (Last 8hrs): Intake & Output 11/15/17 11/16/17 11/16/17 22:59 06:59 14:59 Intake Total 430 180 370 Output Total 0 0 Balance 430 180 370 Intake: Intake, IV Amount 0 0 0 Right Wrist 0 0 0 Oral 430 180 370 Output: Urine 0 0 Urine, Voided 0 0 Other 0 Other: # Bowel Movements 0 0 0 - Physical Exam Head: Positive for: Atraumatic, Normocephalic Pupils: Positive for: PERRL Extroacular Muscles: Positive for: EOMI Conjunctiva: Positive for: Normal Mouth: Positive for: Moist Mucous Membranes Respiratory/Chest: Positive for: Clear to Auscultation, Good Air Exchange Cardiovascular: Positive for: Regular Rate and Rhythm Upper Extremity: Positive for: Normal Inspection Lower Extremity: Positive for: Normal Inspection Neurological: Positive for: GCS=15, CN II-XII Intact Skin: Positive for: Warm, Dry Psychiatric: Positive for: Alert, Oriented x 3 - Medications Active Medications: Active Medications Generic Name Dose Route Start Last Admin Trade Name Freq PRN Reason Stop Dose Admin Acetaminophen 650 mg 11/14/17 18:00 Tylenol 650mg/20.3ml Solution Ud PO Q6 PRN Pain, Mild (1-3) Albumin Human 12.5 gm 11/15/17 08:35 11/15/17 09:56 Albumin Human 25% (12.5 Gm/50 Ml) IV 11/21/17 08:36 12.5 gm TTS PRN Administration hypotension Albuterol/Ipratropium 3 ml 11/15/17 08:36 11/16/17 11:09 Duoneb 3 Mg/0.5 Mg (3 Ml) Ud INH 3 ml RQ4 BELL Administration Vancomycin/Sodium Chloride 1 gm in 200 mls @ 133 mls/hr 11/17/17 10:00 Vancomycin 1 Gm/Ns 200 Ml IVPB 11/22/17 10:01 TTS BELL Protocol Insulin Aspart 0 unit 11/12/17 07:30 11/16/17 07:47 Novolog SC Not Given ACHS BELL Protocol Pantoprazole Sodium 40 mg 11/15/17 10:00 11/16/17 09:11 Protonix Ec Tab PO 40 mg DAILY BELL Administration Rosuvastatin Calcium 2.5 mg 11/10/17 22:00 11/15/17 21:37 Crestor PO 2.5 mg HS BELL Administration - Patient Studies Lab Studies: Microbiology Studies 11/15/17 08:58 MRSA Culture (Admit) - Final Naris MRSA NOT DETECTED 11/10/17 18:17 Blood Culture - Final Blood NO GROWTH AFTER 5 DAYS Gram Stain - Final TEST NOT PERFORMED 11/15/17 07:44 Blood Culture - Preliminary Blood-Venous NO GROWTH AFTER 24 HOURS 11/15/17 07:44 Blood Culture - Preliminary Blood-Venous NO GROWTH AFTER 24 HOURS 11/10/17 18:17 Blood Culture - Final Blood NO GROWTH AFTER 5 DAYS Gram Stain - Final TEST NOT PERFORMED Lab Studies 11/16/17 11/16/17 11/16/17 Range/Units 11:55 07:44 05:49 WBC (4.8-10.8) K/uL RBC (4.40-5.90) Mil/uL Hgb (12.0-18.0) g/dL Hct (35.0-51.0) % MCV (80.0-94.0) fL MCH (27.0-31.0) pg MCHC (33.0-37.0) g/dL RDW (11.5-14.5) % Plt Count (130-400) K/uL MPV (7.2-11.7) fL Neut % (Auto) (50.0-75.0) % Lymph % (Auto) (20.0-40.0) % [place] % (Auto) (0.0-10.0) % Eos % (Auto) (0.0-4.0) % Baso % (Auto) (0.0-2.0) % Neut # (Auto) (1.8-7.0) K/uL Lymph # (Auto) (1.0-4.3) K/uL [place] # (Auto) (0.0-0.8) K/uL Eos # (Auto) (0.0-0.7) K/uL Baso # (Auto) (0.0-0.2) K/uL Sodium 140 (132-148) mmol/L Potassium 4.5 (3.6-5.2) mmol/L Chloride 100 (98-107) mmol/L Carbon Dioxide 29 (22-30) mmol/L Anion Gap 15 (10-20) BUN 20 (9-20) mg/dL Creatinine 2.8 H (0.8-1.5) mg/dL Est GFR ( Amer) 28 Est GFR (Non-Af Amer) 23 POC Glucose (mg/dL) 145 H 82 (65-110) mg/dL Random Glucose 79 (75-110) mg/dL Calcium 8.4 L (8.6-10.4) mg/dl Phosphorus 5.5 H (2.5-4.5) mg/dL Magnesium 2.1 (1.6-2.3) mg/dL Total Bilirubin 0.9 (0.2-1.3) mg/dL AST 32 (17-59) U/L ALT 17 L (21-72) U/L Alkaline Phosphatase 110 (38-126) U/L Total Protein 5.9 L (6.3-8.3) g/dL Albumin 2.9 L (3.5-5.0) g/dL Globulin 3.0 (2.2-3.9) gm/dL Albumin/Globulin Ratio 1.0 (1.0-2.1) 11/16/17 11/15/17 11/15/17 Range/Units 05:48 21:11 16:33 WBC 5.1 (4.8-10.8) K/uL RBC 2.79 L (4.40-5.90) Mil/uL Hgb 9.4 L (12.0-18.0) g/dL Hct 27.7 L (35.0-51.0) % MCV 99.2 H (80.0-94.0) fL MCH 33.5 H (27.0-31.0) pg MCHC 33.7 (33.0-37.0) g/dL RDW 21.2 H (11.5-14.5) % Plt Count 145 (130-400) K/uL MPV 8.1 (7.2-11.7) fL Neut % (Auto) 59.6 (50.0-75.0) % Lymph % (Auto) 12.0 L (20.0-40.0) % [place] % (Auto) 10.0 (0.0-10.0) % Eos % (Auto) 17.9 H (0.0-4.0) % Baso % (Auto) 0.5 (0.0-2.0) % Neut # (Auto) 3.1 (1.8-7.0) K/uL Lymph # (Auto) 0.6 L (1.0-4.3) K/uL [place] # (Auto) 0.5 (0.0-0.8) K/uL Eos # (Auto) 0.9 H (0.0-0.7) K/uL Baso # (Auto) 0.0 (0.0-0.2) K/uL Sodium (132-148) mmol/L Potassium (3.6-5.2) mmol/L Chloride (98-107) mmol/L Carbon Dioxide (22-30) mmol/L Anion Gap (10-20) BUN (9-20) mg/dL Creatinine (0.8-1.5) mg/dL Est GFR ( Amer) Est GFR (Non-Af Amer) POC Glucose (mg/dL) 100 108 (65-110) mg/dL Random Glucose (75-110) mg/dL Calcium (8.6-10.4) mg/dl Phosphorus (2.5-4.5) mg/dL Magnesium (1.6-2.3) mg/dL Total Bilirubin (0.2-1.3) mg/dL AST (17-59) U/L ALT (21-72) U/L Alkaline Phosphatase (38-126) U/L Total Protein (6.3-8.3) g/dL Albumin (3.5-5.0) g/dL Globulin (2.2-3.9) gm/dL Albumin/Globulin Ratio (1.0-2.1) Laboratory Results - last 24 hr 11/15/17 11/15/17 11/16/17 16:33 21:11 05:48 WBC 5.1 RBC 2.79 L Hgb 9.4 L Hct 27.7 L MCV 99.2 H MCH 33.5 H MCHC 33.7 RDW 21.2 H Plt Count 145 MPV 8.1 Neut % (Auto) 59.6 Lymph % (Auto) 12.0 L [place] % (Auto) 10.0 Eos % (Auto) 17.9 H Baso % (Auto) 0.5 Neut # (Auto) 3.1 Lymph # (Auto) 0.6 L [place] # (Auto) 0.5 Eos # (Auto) 0.9 H Baso # (Auto) 0.0 Sodium Potassium Chloride Carbon Dioxide Anion Gap BUN Creatinine Est GFR ( Amer) Est GFR (Non-Af Amer) POC Glucose (mg/dL) 108 100 Random Glucose Calcium Phosphorus Magnesium Total Bilirubin AST ALT Alkaline Phosphatase Total Protein Albumin Globulin Albumin/Globulin Ratio 11/16/17 11/16/17 11/16/17 05:49 07:44 11:55 WBC RBC Hgb Hct MCV MCH MCHC RDW Plt Count MPV Neut % (Auto) Lymph % (Auto) [place] % (Auto) Eos % (Auto) Baso % (Auto) Neut # (Auto) Lymph # (Auto) [place] # (Auto) Eos # (Auto) Baso # (Auto) Sodium 140 Potassium 4.5 Chloride 100 Carbon Dioxide 29 Anion Gap 15 BUN 20 Creatinine 2.8 H Est GFR ( Amer) 28 Est GFR (Non-Af Amer) 23 POC Glucose (mg/dL) 82 145 H Random Glucose 79 Calcium 8.4 L Phosphorus 5.5 H Magnesium 2.1 Total Bilirubin 0.9 AST 32 ALT 17 L Alkaline Phosphatase 110 Total Protein 5.9 L Albumin 2.9 L Globulin 3.0 Albumin/Globulin Ratio 1.0 Fingerstick Blood Sugar Results: 82 Critical Care Progress Note - Nutrition Nutrition: Nutrition Category Date Time Status Renal Diet [DIET] Diets 11/16/17 Breakfast Active Assessment/Plan - Assessment and Plan (Free Text) Assessment: This is a 67 year old male PMHx ESRD on HD TTS, COPD, CAD, CVA brought in from [facility] for symptomatic anemia with bradycardia and hypotension. Patient diagnosed with upper GI bleed. He received a pacemaker on 11/13/17 in order to get cardiac clearance for EGD. Patient underwent EGD on 11/14/17 which showed erosive gastritis without bleeding. There was also esophagitis and duodenal nodules which were biopsied (negative). Patient had [facility] for lethargy likely due to polypharmacy from Percocet and Ambien which were discontinued. Patient has been dialyzed from these substances and is stable for downgrade to telemetry. Neuro Awake, verbal Cardio Assessment: Hypotension 2/2 hypovolemia, CAD Crestor 2.5 mg PO HS Cardiology on consult EP on consult-PPM placed on 11/13/17 Pulm Keep on BiPAP--Titrate FiO2 to keep saturation above 92% GI Assessment: Upper GI bleed Renal diet Protonix 40 mg PO daily Renal Assessment: ESRD on HD TTS Nephro on consult, HD initated TTS Albumin prn with dialysis Heme/onc Assessment: Anemia due to upper GI bleed Currently hemodynamically stable Prophylaxis VTE contraindicated due to GI bleed Protonix 40 mg PO daily Disposition: Stable for downgrade to telemetry. Discussed with Dr. Lexa Mathis <Jean Mathis - Last Filed: 11/16/17 13:44> CCU Objective - Vital Signs / Intake & Output Vital Signs (Last 4 hours): Vital Signs Temp Pulse Resp BP Pulse Ox 11/16/17 13:00 83 18 98 11/16/17 12:32 83 16 134/78 97 11/16/17 12:00 98 F 81 12 100 11/16/17 11:33 81 13 144/47 L 97 11/16/17 11:00 83 18 98 11/16/17 10:32 80 11 L 142/48 L 98 11/16/17 10:00 97.7 F 81 10 L 100 Intake and Output (Last 8hrs): Intake & Output 11/15/17 11/16/17 11/16/17 22:59 06:59 14:59 Intake Total 430 180 590 Output Total 0 0 Balance 430 180 590 Intake: Intake, IV Amount 0 0 0 Right Wrist 0 0 0 Oral 430 180 590 Output: Urine 0 0 Urine, Voided 0 0 Other 0 Other: # Bowel Movements 0 0 0 - Medications Active Medications: Active Medications Generic Name Dose Route Start Last Admin Trade Name Freq PRN Reason Stop Dose Admin Acetaminophen 650 mg 11/14/17 18:00 Tylenol 650mg/20.3ml Solution Ud PO Q6 PRN Pain, Mild (1-3) Albumin Human 12.5 gm 11/15/17 08:35 11/15/17 09:56 Albumin Human 25% (12.5 Gm/50 Ml) IV 11/21/17 08:36 12.5 gm TTS PRN Administration hypotension Albuterol/Ipratropium 3 ml 11/15/17 08:36 11/16/17 11:09 Duoneb 3 Mg/0.5 Mg (3 Ml) Ud INH 3 ml RQ4 BELL Administration Vancomycin/Sodium Chloride 1 gm in 200 mls @ 133 mls/hr 11/17/17 10:00 Vancomycin 1 Gm/Ns 200 Ml IVPB 11/22/17 10:01 TTS BELL Protocol Insulin Aspart 0 unit 11/12/17 07:30 11/16/17 12:58 Novolog SC Not Given ACHS [facility] Protocol Pantoprazole Sodium 40 mg 11/15/17 10:00 11/16/17 09:11 Protonix Ec Tab PO 40 mg DAILY BELL Administration Rosuvastatin Calcium 2.5 mg 11/10/17 22:00 11/15/17 21:37 Crestor PO 2.5 mg HS BELL Administration - Patient Studies Lab Studies: Microbiology Studies 11/15/17 08:58 MRSA Culture (Admit) - Final Naris MRSA NOT DETECTED 11/10/17 18:17 Blood Culture - Final Blood NO GROWTH AFTER 5 DAYS Gram Stain - Final TEST NOT PERFORMED 11/15/17 07:44 Blood Culture - Preliminary Blood-Venous NO GROWTH AFTER 24 HOURS 11/15/17 07:44 Blood Culture - Preliminary Blood-Venous NO GROWTH AFTER 24 HOURS 11/10/17 18:17 Blood Culture - Final Blood NO GROWTH AFTER 5 DAYS Gram Stain - Final TEST NOT PERFORMED Lab Studies 11/16/17 11/16/17 11/16/17 Range/Units 11:55 07:44 05:49 WBC (4.8-10.8) K/uL RBC (4.40-5.90) Mil/uL Hgb (12.0-18.0) g/dL Hct (35.0-51.0) % MCV (80.0-94.0) fL MCH (27.0-31.0) pg MCHC (33.0-37.0) g/dL RDW (11.5-14.5) % Plt Count (130-400) K/uL MPV (7.2-11.7) fL Neut % (Auto) (50.0-75.0) % Lymph % (Auto) (20.0-40.0) % [place] % (Auto) (0.0-10.0) % Eos % (Auto) (0.0-4.0) % Baso % (Auto) (0.0-2.0) % Neut # (Auto) (1.8-7.0) K/uL Lymph # (Auto) (1.0-4.3) K/uL [place] # (Auto) (0.0-0.8) K/uL Eos # (Auto) (0.0-0.7) K/uL Baso # (Auto) (0.0-0.2) K/uL Sodium 140 (132-148) mmol/L Potassium 4.5 (3.6-5.2) mmol/L Chloride 100 (98-107) mmol/L Carbon Dioxide 29 (22-30) mmol/L Anion Gap 15 (10-20) BUN 20 (9-20) mg/dL Creatinine 2.8 H (0.8-1.5) mg/dL Est GFR ( Amer) 28 Est GFR (Non-Af Amer) 23 POC Glucose (mg/dL) 145 H 82 (65-110) mg/dL Random Glucose 79 (75-110) mg/dL Calcium 8.4 L (8.6-10.4) mg/dl Phosphorus 5.5 H (2.5-4.5) mg/dL Magnesium 2.1 (1.6-2.3) mg/dL Total Bilirubin 0.9 (0.2-1.3) mg/dL AST 32 (17-59) U/L ALT 17 L (21-72) U/L Alkaline Phosphatase 110 (38-126) U/L Total Protein 5.9 L (6.3-8.3) g/dL Albumin 2.9 L (3.5-5.0) g/dL Globulin 3.0 (2.2-3.9) gm/dL Albumin/Globulin Ratio 1.0 (1.0-2.1) 11/16/17 11/15/17 11/15/17 Range/Units 05:48 21:11 16:33 WBC 5.1 (4.8-10.8) K/uL RBC 2.79 L (4.40-5.90) Mil/uL Hgb 9.4 L (12.0-18.0) g/dL Hct 27.7 L (35.0-51.0) % MCV 99.2 H (80.0-94.0) fL MCH 33.5 H (27.0-31.0) pg MCHC 33.7 (33.0-37.0) g/dL RDW 21.2 H (11.5-14.5) % Plt Count 145 (130-400) K/uL MPV 8.1 (7.2-11.7) fL Neut % (Auto) 59.6 (50.0-75.0) % Lymph % (Auto) 12.0 L (20.0-40.0) % [place] % (Auto) 10.0 (0.0-10.0) % Eos % (Auto) 17.9 H (0.0-4.0) % Baso % (Auto) 0.5 (0.0-2.0) % Neut # (Auto) 3.1 (1.8-7.0) K/uL Lymph # (Auto) 0.6 L (1.0-4.3) K/uL [place] # (Auto) 0.5 (0.0-0.8) K/uL Eos # (Auto) 0.9 H (0.0-0.7) K/uL Baso # (Auto) 0.0 (0.0-0.2) K/uL Sodium (132-148) mmol/L Potassium (3.6-5.2) mmol/L Chloride (98-107) mmol/L Carbon Dioxide (22-30) mmol/L Anion Gap (10-20) BUN (9-20) mg/dL Creatinine (0.8-1.5) mg/dL Est GFR ( Amer) Est GFR (Non-Af Amer) POC Glucose (mg/dL) 100 108 (65-110) mg/dL Random Glucose (75-110) mg/dL Calcium (8.6-10.4) mg/dl Phosphorus (2.5-4.5) mg/dL Magnesium (1.6-2.3) mg/dL Total Bilirubin (0.2-1.3) mg/dL AST (17-59) U/L ALT (21-72) U/L Alkaline Phosphatase (38-126) U/L Total Protein (6.3-8.3) g/dL Albumin (3.5-5.0) g/dL Globulin (2.2-3.9) gm/dL Albumin/Globulin Ratio (1.0-2.1) Laboratory Results - last 24 hr 11/15/17 11/15/17 11/16/17 16:33 21:11 05:48 WBC 5.1 RBC 2.79 L Hgb 9.4 L Hct 27.7 L MCV 99.2 H MCH 33.5 H MCHC 33.7 RDW 21.2 H Plt Count 145 MPV 8.1 Neut % (Auto) 59.6 Lymph % (Auto) 12.0 L [place] % (Auto) 10.0 Eos % (Auto) 17.9 H Baso % (Auto) 0.5 Neut # (Auto) 3.1 Lymph # (Auto) 0.6 L [place] # (Auto) 0.5 Eos # (Auto) 0.9 H Baso # (Auto) 0.0 Sodium Potassium Chloride Carbon Dioxide Anion Gap BUN Creatinine Est GFR ( Amer) Est GFR (Non-Af Amer) POC Glucose (mg/dL) 108 100 Random Glucose Calcium Phosphorus Magnesium Total Bilirubin AST ALT Alkaline Phosphatase Total Protein Albumin Globulin Albumin/Globulin Ratio 11/16/17 11/16/17 11/16/17 05:49 07:44 11:55 WBC RBC Hgb Hct MCV MCH MCHC RDW Plt Count MPV Neut % (Auto) Lymph % (Auto) [place] % (Auto) Eos % (Auto) Baso % (Auto) Neut # (Auto) Lymph # (Auto) [place] # (Auto) Eos # (Auto) Baso # (Auto) Sodium 140 Potassium 4.5 Chloride 100 Carbon Dioxide 29 Anion Gap 15 BUN 20 Creatinine 2.8 H Est GFR ( Amer) 28 Est GFR (Non-Af Amer) 23 POC Glucose (mg/dL) 82 145 H Random Glucose 79 Calcium 8.4 L Phosphorus 5.5 H Magnesium 2.1 Total Bilirubin 0.9 AST 32 ALT 17 L Alkaline Phosphatase 110 Total Protein 5.9 L Albumin 2.9 L Globulin 3.0 Albumin/Globulin Ratio 1.0 Critical Care Progress Note - Nutrition Nutrition: Nutrition Category Date Time Status Renal Diet [DIET] Diets 11/16/17 Breakfast Active Assessment/Plan - Assessment and Plan (Free Text) Assessment: Above resident note reviewed and verified. Patient s/p ambien and percocet found to be hypercapneic respiratroy failure. -24 hours in ICU without any sedations and patient much more awake, alert no signs of drowsiness. -Patient's breathing remains stable to be transferred to telemetry. -continue management as per primary team. - Date & Time Date: 11/16/17 Time: 13:44
--- NOTE | 2017-11-16 12:57 | CP.PCM.PN ---
Subjective - Date & Time of Evaluation Date of Evaluation: 11/16/17 Time of Evaluation: 12:55 - Subjective Subjective: No further bleeding. Hgb=9.4 Objective - Vital Signs/Intake and Output Vital Signs (last 24 hours): Temp Pulse Resp BP Pulse Ox 97.7 F 81 13 144/47 L 97 11/16/17 10:00 11/16/17 11:33 11/16/17 11:33 11/16/17 11:33 11/16/17 11:33 Intake and Output: 11/16/17 11/16/17 06:59 18:59 Intake Total 360 370 Output Total 0 Balance 360 370 - Medications Medications: Current Medications Acetaminophen (Tylenol 650mg/20.3ml Solution Ud) 650 mg PO Q6 PRN PRN Reason: Pain, Mild (1-3) Albumin Human (Albumin Human 25% (12.5 Gm/50 Ml)) 12.5 gm IV TTS PRN PRN Reason: hypotension Stop: 11/21/17 08:36 Last Admin: 11/15/17 09:56 Dose: 12.5 gm Albuterol/Ipratropium (Duoneb 3 Mg/0.5 Mg (3 Ml) Ud) 3 ml INH RQ4 BELL Last Admin: 11/16/17 11:09 Dose: 3 ml Vancomycin/Sodium Chloride (Vancomycin 1 Gm/Ns 200 Ml) 1 gm in 200 mls @ 133 mls/hr IVPB TTS BELL PRN Reason: Protocol Stop: 11/22/17 10:01 Insulin Aspart (Novolog) 0 unit SC ACHS BELL PRN Reason: Protocol Last Admin: 11/16/17 07:47 Dose: Not Given Pantoprazole Sodium (Protonix Ec Tab) 40 mg PO DAILY BELL Last Admin: 11/16/17 09:11 Dose: 40 mg Rosuvastatin Calcium (Crestor) 2.5 mg PO HS BELL Last Admin: 11/15/17 21:37 Dose: 2.5 mg - Labs Labs: 11/16/17 05:48 11/16/17 05:49 PT 11.8 SECONDS (9.7-12.2) 11/10/17 18:20 INR 1.1 11/10/17 18:20 APTT 40 SECONDS (21-34) H 11/10/17 18:20 - Constitutional Appears: Chronically Ill - Respiratory Exam Respiratory Exam: Decreased Breath Sounds - Cardiovascular Exam Cardiovascular Exam: REGULAR RHYTHM - GI/Abdominal Exam GI & Abdominal Exam: Soft, Hypoactive Bowel Sounds. absent: Tenderness, Mass, Rebound - Extremities Exam Extremities Exam: Normal Inspection Assessment and Plan (1) Reflux esophagitis Assessment & Plan: Continue Protonix po Status: Acute (2) Duodenal nodule Assessment & Plan: Pathology report from EGD still pending Status: Acute (3) Anemia Assessment & Plan: No further bleeding H/H is stable Status: Acute (4) Gastrointestinal hemorrhage Assessment & Plan: No further bleeding. Source no clear. May be from erosive gastitis or duodenal nodules or bleeding below the second portion of duodenum. No further work up planned at present. Observe. Status: Acute
--- NOTE | 2017-11-16 16:54 | CP.PCM.PN ---
Subjective - Date & Time of Evaluation Date of Evaluation: 11/16/17 Time of Evaluation: 09:00 - Subjective Subjective: less congested awake alert denies chest pain await cardio eval Objective - Vital Signs/Intake and Output Vital Signs (last 24 hours): Temp Pulse Resp BP Pulse Ox 98.2 F 83 13 156/62 H 100 11/16/17 16:00 11/16/17 16:33 11/16/17 16:33 11/16/17 16:33 11/16/17 16:33 Intake and Output: 11/16/17 11/16/17 06:59 18:59 Intake Total 360 590 Output Total 0 Balance 360 590 - Medications Medications: Current Medications Acetaminophen (Tylenol 650mg/20.3ml Solution Ud) 650 mg PO Q6 PRN PRN Reason: Pain, Mild (1-3) Albumin Human (Albumin Human 25% (12.5 Gm/50 Ml)) 12.5 gm IV TTS PRN PRN Reason: hypotension Stop: 11/21/17 08:36 Last Admin: 11/15/17 09:56 Dose: 12.5 gm Albuterol/Ipratropium (Duoneb 3 Mg/0.5 Mg (3 Ml) Ud) 3 ml INH RQ4 BELL Last Admin: 11/16/17 15:51 Dose: 3 ml Vancomycin/Sodium Chloride (Vancomycin 1 Gm/Ns 200 Ml) 1 gm in 200 mls @ 133 mls/hr IVPB TTS BELL PRN Reason: Protocol Stop: 11/22/17 10:01 Insulin Aspart (Novolog) 0 unit SC ACHS BELL PRN Reason: Protocol Last Admin: 11/16/17 16:39 Dose: Not Given Pantoprazole Sodium (Protonix Ec Tab) 40 mg PO DAILY BELL Last Admin: 11/16/17 09:11 Dose: 40 mg Rosuvastatin Calcium (Crestor) 2.5 mg PO HS BELL Last Admin: 11/15/17 21:37 Dose: 2.5 mg - Labs Labs: 11/16/17 05:48 11/16/17 05:49 PT 11.8 SECONDS (9.7-12.2) 11/10/17 18:20 INR 1.1 11/10/17 18:20 APTT 40 SECONDS (21-34) H 11/10/17 18:20 - Constitutional Appears: Non-toxic, Chronically Ill - Head Exam Head Exam: NORMOCEPHALIC - Eye Exam Eye Exam: absent: Scleral icterus Pupil Exam: NORMAL ACCOMODATION - ENT Exam ENT Exam: Mucous Membranes Dry - Neck Exam Neck Exam: absent: Lymphadenopathy - Respiratory Exam Respiratory Exam: Decreased Breath Sounds, Clear to Ausculation Bilateral - Cardiovascular Exam Cardiovascular Exam: REGULAR RHYTHM, +S1, +S2 - GI/Abdominal Exam GI & Abdominal Exam: Distended, Soft - Rectal Exam Rectal Exam: Deferred - Exam Exam: NORMAL INSPECTION - Extremities Exam Extremities Exam: Pedal Edema. absent: Calf Tenderness, Tenderness - Back Exam Back Exam: paraspinal tenderness. absent: CVA tenderness (L), CVA tenderness (R ) - Neurological Exam Neurological Exam: Alert, Awake, CN II-XII Intact, Oriented x3 Neuro motor strength exam: Left Upper Extremity: 0, Right Upper Extremity: 3, Left Lower Extremity: 0, Right Lower Extremity: 3 - Psychiatric Exam Psychiatric exam: Depressed Assessment and Plan (1) Anemia Status: Acute (2) Gastrointestinal hemorrhage Status: Acute (3) Acute hyperkalemia Status: Acute (4) CAD (coronary artery disease) of artery bypass graft Status: Acute (5) CHF (congestive heart failure), NYHA class III Status: Acute (6) COPD (chronic obstructive pulmonary disease) Status: Acute (7) ESRD (end stage renal disease) on dialysis Status: Acute (8) ASHD (arteriosclerotic heart disease) Status: Chronic (9) Diabetes Status: Chronic (10) History of CVA (cerebrovascular accident) Status: Chronic (11) Hypertension Status: Chronic (12) Sleep apnea Status: Chronic - Assessment and Plan (Free Text) Assessment: cont rx as per Dr Lucas s/p acute blood loss anemia with hypovolemic shock and SSS requiring PPM cont tele monitoring as per Dr Lucas cont HD
--- NOTE | 2017-11-16 20:06 | CP.PCM.PN ---
Subjective - Date & Time of Evaluation Date of Evaluation: 11/16/17 Time of Evaluation: 20:05 - Subjective Subjective: pt is seen and examined, follow up consult is dictated #[id number] for hd in am Objective - Vital Signs/Intake and Output Vital Signs (last 24 hours): Temp Pulse Resp BP Pulse Ox 98.2 F 87 22 158/41 H 100 11/16/17 16:00 11/16/17 19:32 11/16/17 19:32 11/16/17 19:32 11/16/17 19:32 Intake and Output: 11/16/17 11/17/17 18:59 06:59 Intake Total 710 Balance 710 - Medications Medications: Current Medications Acetaminophen (Tylenol 650mg/20.3ml Solution Ud) 650 mg PO Q6 PRN PRN Reason: Pain, Mild (1-3) Albumin Human (Albumin Human 25% (12.5 Gm/50 Ml)) 12.5 gm IV TTS PRN PRN Reason: hypotension Stop: 11/21/17 08:36 Last Admin: 11/15/17 09:56 Dose: 12.5 gm Albuterol/Ipratropium (Duoneb 3 Mg/0.5 Mg (3 Ml) Ud) 3 ml INH RQ4 BELL Last Admin: 11/16/17 19:35 Dose: 3 ml Vancomycin/Sodium Chloride (Vancomycin 1 Gm/Ns 200 Ml) 1 gm in 200 mls @ 133 mls/hr IVPB TTS BELL PRN Reason: Protocol Stop: 11/22/17 10:01 Insulin Aspart (Novolog) 0 unit SC ACHS BELL PRN Reason: Protocol Last Admin: 11/16/17 16:39 Dose: Not Given Pantoprazole Sodium (Protonix Ec Tab) 40 mg PO DAILY BELL Last Admin: 11/16/17 09:11 Dose: 40 mg Rosuvastatin Calcium (Crestor) 2.5 mg PO HS BELL Last Admin: 11/15/17 21:37 Dose: 2.5 mg - Labs Labs: 11/16/17 05:48 11/16/17 05:49 PT 11.8 SECONDS (9.7-12.2) 11/10/17 18:20 INR 1.1 11/10/17 18:20 APTT 40 SECONDS (21-34) H 11/10/17 18:20
[2017-11-16] MEDS: Rosuvastatin Calcium 2.5 mg Tab PO SCH (21:55)
[2017-11-17] MEDS: Albuterol-Ipratrop 3 mg / 0.5 (3 ml) UD INH SCH ×6 (01:09→19:55)
--- NOTE | 2017-11-17 04:04 | PN ---
DATE: 11/16/2017 FOLLOWUP RENAL CONSULTATION LOCATION: The patient is located in ICU, bed 18. REQUESTED BY: Fabiano Rodas MD REASON FOR FOLLOWUP: End-stage renal disease, continuation of hemodialysis. HISTORY OF PRESENT ILLNESS: Mr. Gonzales is a 67 years old elderly [place] male with a past medical history significant for longstanding hypertension, diabetes, coronary artery disease, status post CABG, CVA with left-sided weakness, end-stage renal disease who was admitted with hypotension and altered mental status, and also found to have severe anemia and upper GI bleed with melena. Subsequently, the patient was admitted to ICU and received total 5 units of packed RBC, status post pacemaker placement, and also status post EGD after cleared by trouble lineman, Dr. Veras. The patient was found to have ulcer, not actively bleeding during the EGD. The patient is feeling much better today, not in acute distress. Able to eat today without any complications. No chest pain. No palpitation. No fever. No cough. No abdominal pain. No nausea, vomiting, diarrhea. The patient also had a good bowel movement. PHYSICAL EXAMINATION: VITAL SIGNS: As follows, blood pressure is 142/44, pulse 92, respirations 18, temperature 99, saturation 99% to 100%. Height 5 feet 7 inches, weight is 209 pounds. GENERAL: Mr. Gonzales is a 67 years old elderly male, moderately built, moderately nourished, not in distress. HEENT: Pupils normal and reactive to light and accommodation. Conjunctivae pink. Sclerae nonicteric. Tongue is moist. Trachea is midline. LUNGS: Symmetric on both sides. Bilateral breath sounds present. Clear to auscultation. CVS: [place] at the fifth intercostal space, midclavicular line. S1, S2 audible. No murmur or gallop. ABDOMEN: Normal in appearance, soft, tympanic. No guarding. No rigidity. No hepatosplenomegaly. 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 Sensory and motor system is within normal limits. EXTREMITIES: No cyanosis, no clubbing. The patient has a 1+ edema in both lower extremity and also residual left-sided weakness both upper and lower extremities with contracture of the left hand. CURRENT MEDICATIONS: Include albumin p.r.n. during dialysis, Crestor 2.5 mg p.o. at bedtime, DuoNeb inhaler, NovoLog insulin, Protonix 40 mg p.o. daily, Tylenol, and vancomycin 1 gm three times a week. LABORATORY DATA: His laboratory data include as follows, as of 11/16/2017, WBC 5.1, hemoglobin 9.4, hematocrit is 27.7, platelets 145. Sodium 140, potassium 4.5, chloride 100, CO of 29, BUN 20, creatinine 2.8, glucose 79, calcium 8.5, phosphorus 5.5, magnesium 2.1. Total bili 0.1, AST 32, ALT 17, alkaline phosphatase 110, total protein 5.9, albumin is 2.9. IMPRESSION: In summary, Mr. Gonzales is a 67 years old elderly male with hypertension, diabetes, coronary artery disease, status post coronary artery bypass grafting, cerebrovascular accident with left-sided weakness, end-stage renal disease with severe anemia and melena, status post transfusion. 1. End-stage renal disease. Continue hemodialysis three times a week Sunday, , Sunday. We will try to ultrafiltrate as much as the patient can tolerate. 2. Congestive heart failure versus left pleural effusion. 3. Hypertension. Blood pressure is stable. 4. Diabetes. Sugars are under control. We will schedule for hemodialysis in a.m. Follow up CBC as per the GI recommendation. Thank you for allowing me to participate in your patient's care. We will also continue Procrit during hemodialysis and also Zemplar. Martin Ortiz MD [facility]
[2017-11-17 06:28] LABS: BASO % 0.3 % (0.0-2.0); EOS % 19.8 % (0.0-4.0); HEMOGLOBIN 8.7 g/dL (12.0-18.0); LYMPH # 0.6 K/uL (1.0-4.3); LYMPH % 12.1 % (20.0-40.0); MEAN CELL VOLUME 99.7 fL (80.0-94.0); MEAN CORPUSCULAR HEMOGLOBIN 33.4 pg (27.0-31.0); MEAN CORPUSCULAR HGB CONC 33.5 g/dL (33.0-37.0); MEAN PLATELET VOLUME 8.9 fL (7.2-11.7); MONO # 0.5 K/uL (0.0-0.8); MONO % 9.6 % (0.0-10.0); NEUT # 3.1 K/uL (1.8-7.0); NEUT % 58.2 % (50.0-75.0); NRBC % 0.1 % (0.0-2.0); RBC 2.61 Mil/uL (4.40-5.90); RED CELL DISTRIBUTION WIDTH 21.4 % (11.5-14.5); WHITE BLOOD COUNT 5.3 K/uL (4.8-10.8)
[2017-11-17 06:52] LABS: ALB/GLOB RATIO 0.9 (1.0-2.1); ALT/SGPT < 6 U/L (21-72); AST/SGOT 69 U/L (17-59); BLOOD UREA NITROGEN 26 mg/dL (9-20); CALCIUM 8.1 mg/dl (8.6-10.4); GFR AFRICAN-AMERICAN 20; GFR NON-AFRICAN AMERICAN 17
[2017-11-17] MEDS: (Novolog) Insulin Aspart, Recombinant 100 u/ml 10 ml vial SC SCH ×4 (09:02→22:36)
[2017-11-17] MEDS: Pantoprazole 40 mg EC Tab PO SCH (09:50)
--- NOTE | 2017-11-17 09:59 | CP.PCM.PN ---
Subjective - Date & Time of Evaluation Date of Evaluation: 11/17/17 Time of Evaluation: 09:57 - Subjective Subjective: Covering Dr Burgos CC: anemia follow up Discussed with RN- no signs/symptoms of GI bleeding. Hgb a bit lower today in ICU Main complaint- back pain Objective - Vital Signs/Intake and Output Vital Signs (last 24 hours): Temp Pulse Resp BP Pulse Ox 99 F 82 14 131/71 100 11/17/17 09:33 11/17/17 09:45 11/17/17 09:33 11/17/17 09:45 11/17/17 09:31 Intake and Output: 11/17/17 11/17/17 06:59 18:59 Intake Total 120 Balance 120 - Medications Medications: Current Medications Acetaminophen (Tylenol 650mg/20.3ml Solution Ud) 650 mg PO Q6 PRN PRN Reason: Pain, Mild (1-3) Last Admin: 11/16/17 22:56 Dose: 650 mg Albumin Human (Albumin Human 25% (12.5 Gm/50 Ml)) 12.5 gm IV TTS PRN PRN Reason: hypotension Stop: 11/21/17 08:36 Last Admin: 11/15/17 09:56 Dose: 12.5 gm Albuterol/Ipratropium (Duoneb 3 Mg/0.5 Mg (3 Ml) Ud) 3 ml INH RQ4 BELL Last Admin: 11/17/17 07:28 Dose: 3 ml Vancomycin/Sodium Chloride (Vancomycin 1 Gm/Ns 200 Ml) 1 gm in 200 mls @ 133 mls/hr IVPB TTS BELL PRN Reason: Protocol Stop: 11/22/17 10:01 Insulin Aspart (Novolog) 0 unit SC ACHS BELL PRN Reason: Protocol Last Admin: 11/17/17 09:02 Dose: Not Given Pantoprazole Sodium (Protonix Ec Tab) 40 mg PO DAILY BELL Last Admin: 11/17/17 09:50 Dose: 40 mg Rosuvastatin Calcium (Crestor) 2.5 mg PO HS BELL Last Admin: 11/16/17 21:55 Dose: 2.5 mg - Labs Labs: 11/17/17 06:21 11/17/17 06:21 PT 11.8 SECONDS (9.7-12.2) 11/10/17 18:20 INR 1.1 11/10/17 18:20 APTT 40 SECONDS (21-34) H 11/10/17 18:20 - Constitutional Appears: Chronically Ill - Head Exam Head Exam: NORMOCEPHALIC - Respiratory Exam Respiratory Exam: NORMAL BREATHING PATTERN - Cardiovascular Exam Cardiovascular Exam: REGULAR RHYTHM - GI/Abdominal Exam GI & Abdominal Exam: Soft. absent: Tenderness, Mass Assessment and Plan (1) Anemia Assessment & Plan: Chronic. No active bleeding at present Hgb slightly lower today Monitor Status: Acute (2) Reflux esophagitis Assessment & Plan: Stable Status: Acute (3) ESRD (end stage renal disease) on dialysis Assessment & Plan: Managed by Renal Status: Acute
[2017-11-17] MEDS ORDERED: Vancomycin 1 gm/NS 200 ml 1 GM/200 ML BAG IVPB SCH (10:00)
--- NOTE | 2017-11-17 14:11 | CP.PCM.PN ---
Subjective - Date & Time of Evaluation Date of Evaluation: 11/17/17 Time of Evaluation: 14:10 - Subjective Subjective: pt is seen and examined, follow up consult is dictated#[id number] s/p hd today, uf 3 lit add epogen, zemplar, nephrovite, renvela Objective - Vital Signs/Intake and Output Vital Signs (last 24 hours): Temp Pulse Resp BP Pulse Ox 98.4 F 95 H 14 173/45 H 100 11/17/17 12:00 11/17/17 13:01 11/17/17 13:01 11/17/17 13:01 11/17/17 13:01 Intake and Output: 11/17/17 11/17/17 06:59 18:59 Intake Total 120 Output Total 3000 Balance 120 -3000 - Medications Medications: Current Medications Acetaminophen (Tylenol 325mg Tab) 650 mg PO Q6 PRN PRN Reason: Pain, Mild (1-3) Last Admin: 11/17/17 13:33 Dose: 650 mg Albumin Human (Albumin Human 25% (12.5 Gm/50 Ml)) 12.5 gm IV TTS PRN PRN Reason: hypotension Stop: 11/21/17 08:36 Last Admin: 11/15/17 09:56 Dose: 12.5 gm Albuterol/Ipratropium (Duoneb 3 Mg/0.5 Mg (3 Ml) Ud) 3 ml INH RQ4 BELL Last Admin: 11/17/17 12:18 Dose: 3 ml Vancomycin/Sodium Chloride (Vancomycin 1 Gm/Ns 200 Ml) 1 gm in 200 mls @ 133 mls/hr IVPB TTS BELL PRN Reason: Protocol Stop: 11/22/17 10:01 Insulin Aspart (Novolog) 0 unit SC ACHS BELL PRN Reason: Protocol Last Admin: 11/17/17 12:09 Dose: Not Given Pantoprazole Sodium (Protonix Ec Tab) 40 mg PO DAILY BELL Last Admin: 11/17/17 09:50 Dose: 40 mg Rosuvastatin Calcium (Crestor) 2.5 mg PO HS BELL Last Admin: 11/16/17 21:55 Dose: 2.5 mg - Labs Labs: 11/17/17 06:21 11/17/17 06:21 PT 11.8 SECONDS (9.7-12.2) 04/21/18 18:20 INR 1.1 11/10/17 18:20 APTT 40 SECONDS (21-34) H 11/10/17 18:20
[2017-11-17] MEDS: Rosuvastatin Calcium 2.5 mg Tab PO SCH (22:35)
[2017-11-18] MEDS: Albuterol HFA 90 mcg/actuation (8 g) INH PRN ×5 (00:30→22:50)
[2017-11-18] MEDS: Albuterol-Ipratrop 3 mg / 0.5 (3 ml) UD INH SCH ×6 (00:33→20:21)
--- NOTE | 2017-11-18 02:55 | PN ---
DATE: 11/17/2017 FOLLOWUP RENAL CONSULTATION The patient is located in room 665, bed A. REQUESTED BY: Fabiano Rodas MD REASON FOR FOLLOWUP: End-stage renal disease, continuation of hemodialysis. SUBJECTIVE: Mr. Gonzales is a 67-year-old obese elderly [place] male with a history of longstanding hypertension, diabetes, end-stage renal disease, coronary artery disease, status post CABG, CVA with left-sided weakness, who was admitted with altered mental status, hypotension, and severe anemia and black stool, found to have upper GI bleed. The patient required transfusion of about 5 units of packed RBC and also underwent a pacemaker, AICD placement, and also an EGD during this hospitalization. The patient is feeling much better today, not in acute distress. No chest pain, no palpitations, no fever, no cough. The patient underwent hemodialysis this morning, had ultrafiltration about 3 liters. The patient is resting comfortably. PHYSICAL EXAMINATION: VITAL SIGNS: As follows: Blood pressure 130/38, pulse 92, respirations about 14, temperature 98.5, saturation 100%. Height 5 feet 7 inches, weight is 198 pounds. GENERAL: Mr. Gonzales is a 67-year-old elderly [place] male, moderately built, moderately nourished, not in distress. HEENT: Pupils normal and reactive to light and accommodation. Conjunctivae pink. Sclerae anicteric. Tongue is moist. NECK: Trachea is midline. LUNGS: Symmetric on both sides. Bilateral breath sounds present. Occasional left basal crackles present. CVS: [place] at the fifth intercostal space, midclavicular line. S1, S2 audible. No murmur, no gallop. The patient has a midsternal scar present from the previous CABG. The patient also has a pacemaker in the right subclavian region. ABDOMEN: Normal in appearance, soft, tympanic. No guarding. No rigidity. No hepatosplenomegaly. SCRUBBER SYSTEM ATTENDANT: The patient is alert, awake, and oriented x3. Sensory system is grossly within normal limits. Motor system, moving all extremities on the right side. The patient has left-sided weakness with contracture of the left hand. EXTREMITIES: No cyanosis, no clubbing. The patient has a 1+ edema in both lower extremities. CURRENT MEDICATIONS: Include as follows: Albumin 25% p.r.n. during dialysis, Crestor 2.5 mg at bedtime, DuoNeb inhaler, NovoLog for sliding scale, Protonix 40 mg p.o. daily, Pulmicort 0.25 mg inhaler every 12 hours, Tylenol and vancomycin 1 gm three times a week, DuoNeb inhaler, albuterol inhaler one puff every 4 hours p.r.n. LABORATORY DATA: Include as follows: As of 11/17/2017, WBC 5.3, hemoglobin 8.7, hematocrit is 26.1, platelets 163. Sodium 139, potassium 5.6, chloride 100, CO2 27, BUN 26, creatinine 3.7, glucose 82, calcium 8.1. Total bili 1.5, AST 69, ALT less than 6, alkaline phosphatase 120, total protein 6.3, albumin is 3, and Accu-Cheks 108 and 187. ASSESSMENT AND PLAN: In summary, Mr. Gonzales is a 67-year-old elderly male with a history of hypertension, diabetes, coronary artery disease, cerebrovascular accident, who was admitted with gastrointestinal bleed, low hemoglobin and hematocrit, status post transfusion of 5 units packed red blood cells, status post pacemaker, and status post esophagogastroduodenoscopy. Hemoglobin and hematocrit are slightly low today. The patient underwent hemodialysis and ultrafiltration about 3 liters. 1. End-stage renal disease. Continue hemodialysis 3 times a week on Sunday, , Sunday and restrict fluids to 1 liter per day. 2. Anemia secondary to recent gastrointestinal bleed. Continue to monitor hemoglobin and hematocrit and we will continue Epogen 10,000 units 3 times a week, and also we will continue Zemplar 2 mcg 3 times a week during dialysis, and also Nephro-Renaldo one tablet p.o. daily, and Renvela 800 mg p.o. t.i.d. with food. 3. The patient underwent hemodialysis today, had ultrafiltration about 3 liters. We will follow with you. Thank you for allowing me to participate in your patient's care. Martin Ortiz MD
[2017-11-18 05:03] LABS: CK-MB 1.85 ng/mL (0.0-3.38)
[2017-11-18 07:11] LABS: TROPONIN I 0.071 ng/mL (0.00-0.120)
[2017-11-18] MEDS: Budesonide 0.25 mg/2 ml Inhal Susp UD INH SCH ×2 (07:32→20:22)
[2017-11-18] MEDS: (Novolog) Insulin Aspart, Recombinant 100 u/ml 10 ml vial SC SCH ×4 (07:53→21:58)
[2017-11-18] MEDS: Multivitamin Vitamin B Complex (Nephro-Vite) Tab PO SCH (08:22)
[2017-11-18] MEDS: Pantoprazole 40 mg EC Tab PO SCH (09:46)
[2017-11-18] MEDS ORDERED: Epoetin Alfa Dialysis 20000 UNIT/ML Inj SC ONE (10:00)
--- NOTE | 2017-11-18 11:17 | RAD ---
HISTORY: SOB, Wheeszing COMPARISON: Comparison chest 11/15/2017 FINDINGS: LUNGS: Pulmonary vascular congestion with bilateral lower lobe alveolar-type infiltrates and bilateral effusions. PLEURA: No significant pleural effusion identified, no pneumothorax apparent. CARDIOVASCULAR: Heart is enlarged. Sternotomy wires again noted. . Recently placed (11/13/2017) bipolar pacemaker OSSEOUS STRUCTURES: No significant abnormalities. VISUALIZED UPPER ABDOMEN: Normal. OTHER FINDINGS: None. IMPRESSION: No pulmonary vascular congestive changes with bilateral lower lobe alveolar-type infiltrates and bilateral effusions
--- NOTE | 2017-11-18 11:53 | CP.PCM.PN ---
Subjective - Date & Time of Evaluation Date of Evaluation: 11/18/17 Time of Evaluation: 11:50 - Subjective Subjective: Covering Dr Burgos CC: follow up Anemia Numerous complaints of pains- left arm, chest, rectum, back, pacemaker site. Dyspnea No overt GI bleeding reported Objective - Vital Signs/Intake and Output Vital Signs (last 24 hours): Temp Pulse Resp BP Pulse Ox 98.5 F 79 20 144/70 100 11/18/17 07:20 11/18/17 07:20 11/18/17 07:20 11/18/17 07:20 11/18/17 07:20 - Medications Medications: Current Medications Acetaminophen (Tylenol 325mg Tab) 650 mg PO Q6 PRN PRN Reason: Pain, Mild (1-3) Last Admin: 11/18/17 11:08 Dose: 650 mg Albumin Human (Albumin Human 25% (12.5 Gm/50 Ml)) 12.5 gm IV TTS PRN PRN Reason: hypotension Stop: 11/21/17 08:36 Last Admin: 11/15/17 09:56 Dose: 12.5 gm Albuterol (Ventolin Hfa 90 Mcg/Actuation (8 G)) 1 puff INH RQ4 PRN PRN Reason: Shortness of Breath Last Admin: 11/18/17 07:32 Dose: 1 puff Albuterol/Ipratropium (Duoneb 3 Mg/0.5 Mg (3 Ml) Ud) 3 ml INH RQ4 BELL Last Admin: 11/18/17 07:32 Dose: 3 ml Budesonide (Pulmicort Respules) 0.25 mg INH RQ12 BELL Last Admin: 11/18/17 07:32 Dose: 0.25 mg Vancomycin/Sodium Chloride (Vancomycin 1 Gm/Ns 200 Ml) 1 gm in 200 mls @ 133 mls/hr IVPB TTS BELL PRN Reason: Protocol Stop: 11/22/17 10:01 Last Admin: 11/17/17 15:59 Dose: 133 mls/hr Insulin Aspart (Novolog) 0 unit SC ACHS BELL PRN Reason: Protocol Last Admin: 11/18/17 07:53 Dose: Not Given Pantoprazole Sodium (Protonix Ec Tab) 40 mg PO DAILY BELL Last Admin: 11/18/17 09:46 Dose: 40 mg Paricalcitol (Zemplar) 2 mcg IV TTS BELL Rosuvastatin Calcium (Crestor) 2.5 mg PO HS [facility] Last Admin: 11/17/17 22:35 Dose: 2.5 mg Sevelamer Carbonate (Renvela) 800 mg PO TIDCC [facility] Last Admin: 11/18/17 08:22 Dose: 800 mg Vitamin B Complex/Vit C/Folic Acid (Nephro-Renaldo) 1 tab PO 0800 BELL Last Admin: 11/18/17 08:22 Dose: 1 tab - Labs Labs: 11/17/17 06:21 11/17/17 06:21 PT 11.8 SECONDS (9.7-12.2) 11/10/17 18:20 INR 1.1 11/10/17 18:20 APTT 40 SECONDS (21-34) H 11/10/17 18:20 - Constitutional Appears: Chronically Ill - Head Exam Head Exam: NORMOCEPHALIC - Respiratory Exam Respiratory Exam: Accessory Muscle Use Additional comments: Tachypneic, dyspneic - Cardiovascular Exam Cardiovascular Exam: REGULAR RHYTHM - GI/Abdominal Exam GI & Abdominal Exam: Soft. absent: Distended, Tenderness - Extremities Exam Additional comments: Deformity of left hand Assessment and Plan (1) Anemia Assessment & Plan: Stable No GI bleeding Status: Acute (2) Reflux esophagitis Assessment & Plan: Stable Status: Acute (3) ESRD (end stage renal disease) on dialysis Status: Acute
--- NOTE | 2017-11-18 14:20 | CP.PCM.PN ---
Subjective - Date & Time of Evaluation Date of Evaluation: 11/18/17 Time of Evaluation: 14:20 - Subjective Subjective: pt is seen and examined, follow up consult is dictated #[id number] Objective - Vital Signs/Intake and Output Vital Signs (last 24 hours): Temp Pulse Resp BP Pulse Ox 98.5 F 85 20 144/70 100 11/18/17 07:20 11/18/17 12:00 11/18/17 07:20 11/18/17 07:20 11/18/17 07:20 Intake and Output: 11/18/17 11/18/17 06:59 18:59 Intake Total 300 Balance 300 - Medications Medications: Current Medications Acetaminophen (Tylenol 325mg Tab) 650 mg PO Q6 PRN PRN Reason: Pain, Mild (1-3) Last Admin: 11/18/17 11:08 Dose: 650 mg Albumin Human (Albumin Human 25% (12.5 Gm/50 Ml)) 12.5 gm IV TTS PRN PRN Reason: hypotension Stop: 11/21/17 08:36 Last Admin: 11/15/17 09:56 Dose: 12.5 gm Albuterol (Ventolin Hfa 90 Mcg/Actuation (8 G)) 1 puff INH RQ4 PRN PRN Reason: Shortness of Breath Last Admin: 11/18/17 13:17 Dose: 1 puff Albuterol/Ipratropium (Duoneb 3 Mg/0.5 Mg (3 Ml) Ud) 3 ml INH RQ4 BELL Last Admin: 11/18/17 12:20 Dose: 3 ml Budesonide (Pulmicort Respules) 0.25 mg INH RQ12 BELL Last Admin: 11/18/17 07:32 Dose: 0.25 mg Vancomycin/Sodium Chloride (Vancomycin 1 Gm/Ns 200 Ml) 1 gm in 200 mls @ 133 mls/hr IVPB TTS BELL PRN Reason: Protocol Stop: 11/22/17 10:01 Last Admin: 11/17/17 15:59 Dose: 133 mls/hr Insulin Aspart (Novolog) 0 unit SC ACHS BELL PRN Reason: Protocol Last Admin: 11/18/17 12:18 Dose: Not Given Pantoprazole Sodium (Protonix Ec Tab) 40 mg PO DAILY BELL Last Admin: 11/18/17 09:46 Dose: 40 mg Paricalcitol (Zemplar) 2 mcg IV TTS [facility] Rosuvastatin Calcium (Crestor) 2.5 mg PO HS BELL Last Admin: 11/17/17 22:35 Dose: 2.5 mg Sevelamer Carbonate (Renvela) 800 mg PO TIDCC BELL Last Admin: 11/18/17 13:43 Dose: 800 mg Vitamin B Complex/Vit C/Folic Acid (Nephro-Renaldo) 1 tab PO 0800 BELL Last Admin: 11/18/17 08:22 Dose: 1 tab - Labs Labs: 11/17/17 06:21 11/17/17 06:21 PT 11.8 SECONDS (9.7-12.2) 11/10/17 18:20 INR 1.1 11/10/17 18:20 APTT 40 SECONDS (21-34) H 11/10/17 18:20
--- NOTE | 2017-11-18 14:21 | CP.PCM.PN ---
Subjective - Date & Time of Evaluation Date of Evaluation: 11/13/17 Time of Evaluation: 08:00 - Subjective Subjective: seen by EP (Dr Veras) - agreed with PPM implant dialysis in progress Objective - Vital Signs/Intake and Output Vital Signs (last 24 hours): Temp Pulse Resp BP Pulse Ox 98.5 F 85 20 144/70 100 11/18/17 07:20 11/18/17 12:00 11/18/17 07:20 11/18/17 07:20 11/18/17 07:20 Intake and Output: 11/18/17 11/18/17 06:59 18:59 Intake Total 300 Balance 300 - Medications Medications: Current Medications Acetaminophen (Tylenol 325mg Tab) 650 mg PO Q6 PRN PRN Reason: Pain, Mild (1-3) Last Admin: 11/18/17 11:08 Dose: 650 mg Albumin Human (Albumin Human 25% (12.5 Gm/50 Ml)) 12.5 gm IV TTS PRN PRN Reason: hypotension Stop: 11/21/17 08:36 Last Admin: 11/15/17 09:56 Dose: 12.5 gm Albuterol (Ventolin Hfa 90 Mcg/Actuation (8 G)) 1 puff INH RQ4 PRN PRN Reason: Shortness of Breath Last Admin: 11/18/17 13:17 Dose: 1 puff Albuterol/Ipratropium (Duoneb 3 Mg/0.5 Mg (3 Ml) Ud) 3 ml INH RQ4 [facility] Last Admin: 11/18/17 12:20 Dose: 3 ml Budesonide (Pulmicort Respules) 0.25 mg INH RQ12 [facility] Last Admin: 11/18/17 07:32 Dose: 0.25 mg Vancomycin/Sodium Chloride (Vancomycin 1 Gm/Ns 200 Ml) 1 gm in 200 mls @ 133 mls/hr IVPB TTS [facility] PRN Reason: Protocol Stop: 11/22/17 10:01 Last Admin: 11/17/17 15:59 Dose: 133 mls/hr Insulin Aspart (Novolog) 0 unit SC ACHS [facility] PRN Reason: Protocol Last Admin: 11/18/17 12:18 Dose: Not Given Pantoprazole Sodium (Protonix Ec Tab) 40 mg PO DAILY [facility] Last Admin: 11/18/17 09:46 Dose: 40 mg Paricalcitol (Zemplar) 2 mcg IV TTS [facility] Rosuvastatin Calcium (Crestor) 2.5 mg PO HS [facility] Last Admin: 11/17/17 22:35 Dose: 2.5 mg Sevelamer Carbonate (Renvela) 800 mg PO TIDCC [facility] Last Admin: 11/18/17 13:43 Dose: 800 mg Vitamin B Complex/Vit C/Folic Acid (Nephro-Renaldo) 1 tab PO 0800 [facility] Last Admin: 11/18/17 08:22 Dose: 1 tab - Labs Labs: 11/17/17 06:21 11/17/17 06:21 PT 11.8 SECONDS (9.7-12.2) 11/10/17 18:20 INR 1.1 11/10/17 18:20 APTT 40 SECONDS (21-34) H 11/10/17 18:20 - Constitutional Appears: Non-toxic - Head Exam Head Exam: NORMAL INSPECTION - Eye Exam Eye Exam: absent: Scleral icterus - ENT Exam ENT Exam: Mucous Membranes Moist - Neck Exam Neck Exam: Full ROM. absent: Lymphadenopathy - Cardiovascular Exam Cardiovascular Exam: REGULAR RHYTHM - GI/Abdominal Exam GI & Abdominal Exam: absent: Soft - Extremities Exam Extremities Exam: absent: Pedal Edema - Neurological Exam Neurological Exam: Alert, Oriented x3 Assessment and Plan - Assessment and Plan (Free Text) Assessment: Syncope CAD ESRD SSS with AV gaby dysfunction T2dm Plan: Will need PPM implant HD Cont meds
--- NOTE | 2017-11-18 14:30 | CP.PCM.PN ---
Subjective - Date & Time of Evaluation Date of Evaluation: 11/18/17 Time of Evaluation: 12:15 - Subjective Subjective: seen by Dr Jaramillo(GI) - no GI bleeding multiple somatic pain Objective - Vital Signs/Intake and Output Vital Signs (last 24 hours): Temp Pulse Resp BP Pulse Ox 98.5 F 85 20 144/70 100 11/18/17 07:20 11/18/17 12:00 11/18/17 07:20 11/18/17 07:20 11/18/17 07:20 Intake and Output: 11/18/17 11/18/17 06:59 18:59 Intake Total 300 Balance 300 - Medications Medications: Current Medications Acetaminophen (Tylenol 325mg Tab) 650 mg PO Q6 PRN PRN Reason: Pain, Mild (1-3) Last Admin: 11/18/17 11:08 Dose: 650 mg Albumin Human (Albumin Human 25% (12.5 Gm/50 Ml)) 12.5 gm IV TTS PRN PRN Reason: hypotension Stop: 11/21/17 08:36 Last Admin: 11/15/17 09:56 Dose: 12.5 gm Albuterol (Ventolin Hfa 90 Mcg/Actuation (8 G)) 1 puff INH RQ4 PRN PRN Reason: Shortness of Breath Last Admin: 11/18/17 13:17 Dose: 1 puff Albuterol/Ipratropium (Duoneb 3 Mg/0.5 Mg (3 Ml) Ud) 3 ml INH RQ4 [facility] Last Admin: 11/18/17 12:20 Dose: 3 ml Budesonide (Pulmicort Respules) 0.25 mg INH RQ12 [facility] Last Admin: 11/18/17 07:32 Dose: 0.25 mg Vancomycin/Sodium Chloride (Vancomycin 1 Gm/Ns 200 Ml) 1 gm in 200 mls @ 133 mls/hr IVPB TTS [facility] PRN Reason: Protocol Stop: 11/22/17 10:01 Last Admin: 11/17/17 15:59 Dose: 133 mls/hr Insulin Aspart (Novolog) 0 unit SC ACHS [facility] PRN Reason: Protocol Last Admin: 11/18/17 12:18 Dose: Not Given Ondansetron HCl (Zofran Inj) 4 mg IVP DAILY@ONCE PRN PRN Reason: Nausea/Vomiting Pantoprazole Sodium (Protonix Ec Tab) 40 mg PO DAILY [facility] Last Admin: 11/18/17 09:46 Dose: 40 mg Paricalcitol (Zemplar) 2 mcg IV TTS [facility] Rosuvastatin Calcium (Crestor) 2.5 mg PO HS [facility] Last Admin: 11/17/17 22:35 Dose: 2.5 mg Sevelamer Carbonate (Renvela) 800 mg PO TIDCC [facility] Last Admin: 11/18/17 13:43 Dose: 800 mg Vitamin B Complex/Vit C/Folic Acid (Nephro-Renaldo) 1 tab PO 0800 [facility] Last Admin: 11/18/17 08:22 Dose: 1 tab - Labs Labs: 11/17/17 06:21 11/17/17 06:21 PT 11.8 SECONDS (9.7-12.2) 11/10/17 18:20 INR 1.1 11/10/17 18:20 APTT 40 SECONDS (21-34) H 11/10/17 18:20 - Constitutional Appears: Non-toxic - Head Exam Head Exam: NORMAL INSPECTION - Eye Exam Eye Exam: absent: Scleral icterus - ENT Exam ENT Exam: Mucous Membranes Moist - Neck Exam Neck Exam: Full ROM - Respiratory Exam Respiratory Exam: NORMAL BREATHING PATTERN - Cardiovascular Exam Cardiovascular Exam: REGULAR RHYTHM - GI/Abdominal Exam GI & Abdominal Exam: Soft. absent: Tenderness - Extremities Exam Extremities Exam: absent: Calf Tenderness, Pedal Edema - Neurological Exam Neurological Exam: Alert, Oriented x3 Additional comments: left arm contracture Assessment and Plan - Assessment and Plan (Free Text) Assessment: Syncope SSS w/ AV gaby dysfunction CAD ESRD Plan: Cont present care Ok to transfer to [facility]
--- NOTE | 2017-11-18 14:44 | CP.PCM.PN ---
Subjective - Date & Time of Evaluation Date of Evaluation: 11/14/17 Time of Evaluation: 18:00 - Subjective Subjective: s/p PPM implant - indic: SSS w/ AV gaby dysfunction s/p upper endoscopy - no active GI bleeding; + GERD no complication Objective - Vital Signs/Intake and Output Vital Signs (last 24 hours): Temp Pulse Resp BP Pulse Ox 98.5 F 85 20 144/70 100 11/18/17 07:20 11/18/17 12:00 11/18/17 07:20 11/18/17 07:20 11/18/17 07:20 Intake and Output: 11/18/17 11/18/17 06:59 18:59 Intake Total 300 Balance 300 - Medications Medications: Current Medications Acetaminophen (Tylenol 325mg Tab) 650 mg PO Q6 PRN PRN Reason: Pain, Mild (1-3) Last Admin: 11/18/17 11:08 Dose: 650 mg Albumin Human (Albumin Human 25% (12.5 Gm/50 Ml)) 12.5 gm IV TTS PRN PRN Reason: hypotension Stop: 11/21/17 08:36 Last Admin: 11/15/17 09:56 Dose: 12.5 gm Albuterol (Ventolin Hfa 90 Mcg/Actuation (8 G)) 1 puff INH RQ4 PRN PRN Reason: Shortness of Breath Last Admin: 11/18/17 13:17 Dose: 1 puff Albuterol/Ipratropium (Duoneb 3 Mg/0.5 Mg (3 Ml) Ud) 3 ml INH RQ4 [facility] Last Admin: 11/18/17 12:20 Dose: 3 ml Budesonide (Pulmicort Respules) 0.25 mg INH RQ12 [facility] Last Admin: 11/18/17 07:32 Dose: 0.25 mg Vancomycin/Sodium Chloride (Vancomycin 1 Gm/Ns 200 Ml) 1 gm in 200 mls @ 133 mls/hr IVPB TTS [facility] PRN Reason: Protocol Stop: 11/22/17 10:01 Last Admin: 11/17/17 15:59 Dose: 133 mls/hr Insulin Aspart (Novolog) 0 unit SC ACHS [facility] PRN Reason: Protocol Last Admin: 11/18/17 12:18 Dose: Not Given Pantoprazole Sodium (Protonix Ec Tab) 40 mg PO DAILY [facility] Last Admin: 11/18/17 09:46 Dose: 40 mg Paricalcitol (Zemplar) 2 mcg IV TTS [facility] Rosuvastatin Calcium (Crestor) 2.5 mg PO HS [facility] Last Admin: 11/17/17 22:35 Dose: 2.5 mg Sevelamer Carbonate (Renvela) 800 mg PO TIDCC [facility] Last Admin: 11/18/17 13:43 Dose: 800 mg Vitamin B Complex/Vit C/Folic Acid (Nephro-Renaldo) 1 tab PO 0800 [facility] Last Admin: 11/18/17 08:22 Dose: 1 tab - Labs Labs: 11/17/17 06:21 11/17/17 06:21 PT 11.8 SECONDS (9.7-12.2) 11/10/17 18:20 INR 1.1 11/10/17 18:20 APTT 40 SECONDS (21-34) H 11/10/17 18:20 - Constitutional Appears: Non-toxic - Head Exam Head Exam: absent: ATRAUMATIC - Eye Exam Eye Exam: absent: Scleral icterus - Neck Exam Neck Exam: Full ROM - Respiratory Exam Respiratory Exam: Clear to Ausculation Bilateral - Cardiovascular Exam Cardiovascular Exam: REGULAR RHYTHM - GI/Abdominal Exam GI & Abdominal Exam: Soft. absent: Tenderness - Extremities Exam Extremities Exam: Pedal Edema. absent: Calf Tenderness - Neurological Exam Neurological Exam: Alert, Awake, Oriented x3 Assessment and Plan - Assessment and Plan (Free Text) Assessment: Syncope Severe anemia CAD SSS s/p PPM Implant ESRD T2dm GERD Plan: Cont present care HD
--- NOTE | 2017-11-18 14:49 | CP.PCM.PN ---
Subjective - Date & Time of Evaluation Date of Evaluation: 11/18/17 Time of Evaluation: 10:00 - Subjective Subjective: chest pain on and off denies fever pain is musculoskeletal tylenol given with some relief seen by Cardio and renal Objective - Vital Signs/Intake and Output Vital Signs (last 24 hours): Temp Pulse Resp BP Pulse Ox 98.5 F 85 20 144/70 100 11/18/17 07:20 11/18/17 12:00 11/18/17 07:20 11/18/17 07:20 11/18/17 07:20 Intake and Output: 11/18/17 11/18/17 06:59 18:59 Intake Total 300 Balance 300 - Medications Medications: Current Medications Acetaminophen (Tylenol 325mg Tab) 650 mg PO Q6 PRN PRN Reason: Pain, Mild (1-3) Last Admin: 11/18/17 11:08 Dose: 650 mg Albumin Human (Albumin Human 25% (12.5 Gm/50 Ml)) 12.5 gm IV TTS PRN PRN Reason: hypotension Stop: 11/21/17 08:36 Last Admin: 11/15/17 09:56 Dose: 12.5 gm Albuterol (Ventolin Hfa 90 Mcg/Actuation (8 G)) 1 puff INH RQ4 PRN PRN Reason: Shortness of Breath Last Admin: 11/18/17 13:17 Dose: 1 puff Albuterol/Ipratropium (Duoneb 3 Mg/0.5 Mg (3 Ml) Ud) 3 ml INH RQ4 BELL Last Admin: 11/18/17 12:20 Dose: 3 ml Budesonide (Pulmicort Respules) 0.25 mg INH RQ12 [facility] Last Admin: 11/18/17 07:32 Dose: 0.25 mg Vancomycin/Sodium Chloride (Vancomycin 1 Gm/Ns 200 Ml) 1 gm in 200 mls @ 133 mls/hr IVPB TTS [facility] PRN Reason: Protocol Stop: 11/22/17 10:01 Last Admin: 11/17/17 15:59 Dose: 133 mls/hr Insulin Aspart (Novolog) 0 unit SC ACHS [facility] PRN Reason: Protocol Last Admin: 11/18/17 12:18 Dose: Not Given Pantoprazole Sodium (Protonix Ec Tab) 40 mg PO DAILY [facility] Last Admin: 11/18/17 09:46 Dose: 40 mg Paricalcitol (Zemplar) 2 mcg IV TTS [facility] Rosuvastatin Calcium (Crestor) 2.5 mg PO HS [facility] Last Admin: 11/17/17 22:35 Dose: 2.5 mg Sevelamer Carbonate (Renvela) 800 mg PO TIDCC [facility] Last Admin: 11/18/17 13:43 Dose: 800 mg Vitamin B Complex/Vit C/Folic Acid (Nephro-Renaldo) 1 tab PO 0800 [facility] Last Admin: 11/18/17 08:22 Dose: 1 tab - Labs Labs: 11/17/17 06:21 11/17/17 06:21 PT 11.8 SECONDS (9.7-12.2) 11/10/17 18:20 INR 1.1 11/10/17 18:20 APTT 40 SECONDS (21-34) H 11/10/17 18:20 - Constitutional Appears: Non-toxic, Chronically Ill - Head Exam Head Exam: NORMOCEPHALIC - Eye Exam Eye Exam: PERRL Pupil Exam: NORMAL ACCOMODATION - ENT Exam ENT Exam: Mucous Membranes Dry - Neck Exam Neck Exam: absent: Lymphadenopathy - Respiratory Exam Respiratory Exam: Decreased Breath Sounds - Cardiovascular Exam Cardiovascular Exam: REGULAR RHYTHM - GI/Abdominal Exam GI & Abdominal Exam: Distended - Rectal Exam Rectal Exam: Deferred - Exam Exam: NORMAL INSPECTION - Extremities Exam Extremities Exam: absent: Pedal Edema - Back Exam Back Exam: absent: CVA tenderness (L), CVA tenderness (R) - Neurological Exam Neurological Exam: Alert, Awake, CN II-XII Intact, Oriented x3 Neuro motor strength exam: Left Upper Extremity: 0, Right Upper Extremity: 3, Left Lower Extremity: 0, Right Lower Extremity: 3 - Psychiatric Exam Psychiatric exam: Depressed - Skin Skin Exam: Dry Assessment and Plan (1) Anemia Status: Acute (2) Gastrointestinal hemorrhage Status: Acute (3) Acute hyperkalemia Status: Acute (4) CAD (coronary artery disease) of artery bypass graft Status: Acute (5) CHF (congestive heart failure), NYHA class III Status: Acute (6) COPD (chronic obstructive pulmonary disease) Status: Acute (7) ESRD (end stage renal disease) on dialysis Status: Acute (8) ASHD (arteriosclerotic heart disease) Status: Chronic (9) Diabetes Status: Chronic (10) History of CVA (cerebrovascular accident) Status: Chronic (11) Hypertension Status: Chronic (12) Sleep apnea Status: Chronic - Assessment and Plan (Free Text) Assessment: d/c to SNF when cleared by Dr Lucas
--- NOTE | 2017-11-18 14:51 | CP.PCM.PN ---
Subjective - Date & Time of Evaluation Date of Evaluation: 11/15/17 Time of Evaluation: 09:00 - Subjective Subjective: Pt transferred back to the unit due to lethargy Suspect culprit most likely sedatives HD in progress at time seen Objective - Vital Signs/Intake and Output Vital Signs (last 24 hours): Temp Pulse Resp BP Pulse Ox 98.5 F 85 20 144/70 100 11/18/17 07:20 11/18/17 12:00 11/18/17 07:20 11/18/17 07:20 11/18/17 07:20 Intake and Output: 11/18/17 11/18/17 06:59 18:59 Intake Total 300 Balance 300 - Medications Medications: Current Medications Acetaminophen (Tylenol 325mg Tab) 650 mg PO Q6 PRN PRN Reason: Pain, Mild (1-3) Last Admin: 11/18/17 11:08 Dose: 650 mg Albumin Human (Albumin Human 25% (12.5 Gm/50 Ml)) 12.5 gm IV TTS PRN PRN Reason: hypotension Stop: 11/21/17 08:36 Last Admin: 11/15/17 09:56 Dose: 12.5 gm Albuterol (Ventolin Hfa 90 Mcg/Actuation (8 G)) 1 puff INH RQ4 PRN PRN Reason: Shortness of Breath Last Admin: 11/18/17 13:17 Dose: 1 puff Albuterol/Ipratropium (Duoneb 3 Mg/0.5 Mg (3 Ml) Ud) 3 ml INH RQ4 [facility] Last Admin: 11/18/17 12:20 Dose: 3 ml Budesonide (Pulmicort Respules) 0.25 mg INH RQ12 [facility] Last Admin: 11/18/17 07:32 Dose: 0.25 mg Vancomycin/Sodium Chloride (Vancomycin 1 Gm/Ns 200 Ml) 1 gm in 200 mls @ 133 mls/hr IVPB TTS [facility] PRN Reason: Protocol Stop: 11/22/17 10:01 Last Admin: 11/17/17 15:59 Dose: 133 mls/hr Insulin Aspart (Novolog) 0 unit SC ACHS [facility] PRN Reason: Protocol Last Admin: 11/18/17 12:18 Dose: Not Given Pantoprazole Sodium (Protonix Ec Tab) 40 mg PO DAILY [facility] Last Admin: 11/18/17 09:46 Dose: 40 mg Paricalcitol (Zemplar) 2 mcg IV TTS [facility] Rosuvastatin Calcium (Crestor) 2.5 mg PO HS [facility] Last Admin: 11/17/17 22:35 Dose: 2.5 mg Sevelamer Carbonate (Renvela) 800 mg PO TIDCC [facility] Last Admin: 11/18/17 13:43 Dose: 800 mg Vitamin B Complex/Vit C/Folic Acid (Nephro-Renaldo) 1 tab PO 0800 [facility] Last Admin: 11/18/17 08:22 Dose: 1 tab - Labs Labs: 11/17/17 06:21 11/17/17 06:21 PT 11.8 SECONDS (9.7-12.2) 11/10/17 18:20 INR 1.1 11/10/17 18:20 APTT 40 SECONDS (21-34) H 11/10/17 18:20 - Constitutional Appears: Non-toxic - Eye Exam Eye Exam: absent: Scleral icterus - Neck Exam Neck Exam: Full ROM. absent: Lymphadenopathy - Respiratory Exam Respiratory Exam: NORMAL BREATHING PATTERN - GI/Abdominal Exam GI & Abdominal Exam: Soft - Extremities Exam Extremities Exam: Calf Tenderness - Neurological Exam Neurological Exam: Altered Assessment and Plan - Assessment and Plan (Free Text) Assessment: Altered mental status ESRD CAD SSS T2dm Plan: Cont hemodialysis
--- NOTE | 2017-11-18 14:57 | CP.PCM.PN ---
Subjective - Date & Time of Evaluation Date of Evaluation: 11/17/17 Time of Evaluation: 12:00 - Subjective Subjective: no GI bleed no chest pain NAD Objective - Vital Signs/Intake and Output Vital Signs (last 24 hours): Temp Pulse Resp BP Pulse Ox 98.5 F 85 20 144/70 100 11/18/17 07:20 11/18/17 12:00 11/18/17 07:20 11/18/17 07:20 11/18/17 07:20 Intake and Output: 11/18/17 11/18/17 06:59 18:59 Intake Total 300 Balance 300 - Medications Medications: Current Medications Acetaminophen (Tylenol 325mg Tab) 650 mg PO Q6 PRN PRN Reason: Pain, Mild (1-3) Last Admin: 11/18/17 11:08 Dose: 650 mg Albumin Human (Albumin Human 25% (12.5 Gm/50 Ml)) 12.5 gm IV TTS PRN PRN Reason: hypotension Stop: 11/21/17 08:36 Last Admin: 11/15/17 09:56 Dose: 12.5 gm Albuterol (Ventolin Hfa 90 Mcg/Actuation (8 G)) 1 puff INH RQ4 PRN PRN Reason: Shortness of Breath Last Admin: 11/18/17 13:17 Dose: 1 puff Albuterol/Ipratropium (Duoneb 3 Mg/0.5 Mg (3 Ml) Ud) 3 ml INH RQ4 [facility] Last Admin: 11/18/17 12:20 Dose: 3 ml Budesonide (Pulmicort Respules) 0.25 mg INH RQ12 [facility] Last Admin: 11/18/17 07:32 Dose: 0.25 mg Vancomycin/Sodium Chloride (Vancomycin 1 Gm/Ns 200 Ml) 1 gm in 200 mls @ 133 mls/hr IVPB TTS [facility] PRN Reason: Protocol Stop: 11/22/17 10:01 Last Admin: 11/17/17 15:59 Dose: 133 mls/hr Insulin Aspart (Novolog) 0 unit SC ACHS [facility] PRN Reason: Protocol Last Admin: 11/18/17 12:18 Dose: Not Given Pantoprazole Sodium (Protonix Ec Tab) 40 mg PO DAILY [facility] Last Admin: 11/18/17 09:46 Dose: 40 mg Paricalcitol (Zemplar) 2 mcg IV TTS [facility] Rosuvastatin Calcium (Crestor) 2.5 mg PO HS [facility] Last Admin: 11/17/17 22:35 Dose: 2.5 mg Sevelamer Carbonate (Renvela) 800 mg PO TIDCC [facility] Last Admin: 11/18/17 13:43 Dose: 800 mg Vitamin B Complex/Vit C/Folic Acid (Nephro-Renaldo) 1 tab PO 0800 [facility] Last Admin: 11/18/17 08:22 Dose: 1 tab - Labs Labs: 11/17/17 06:21 11/17/17 06:21 PT 11.8 SECONDS (9.7-12.2) 11/10/17 18:20 INR 1.1 11/10/17 18:20 APTT 40 SECONDS (21-34) H 11/10/17 18:20 - Constitutional Appears: Chronically Ill - Eye Exam Eye Exam: absent: Scleral icterus - Neck Exam Neck Exam: Full ROM - Respiratory Exam Respiratory Exam: Clear to Ausculation Bilateral - Cardiovascular Exam Cardiovascular Exam: REGULAR RHYTHM - GI/Abdominal Exam GI & Abdominal Exam: absent: Soft - Extremities Exam Extremities Exam: absent: Pedal Edema - Neurological Exam Neurological Exam: Alert, Oriented x3 Assessment and Plan - Assessment and Plan (Free Text) Assessment: Syncope CAD ESRD Anemia T2dm Plan: Cont present care HD
--- NOTE | 2017-11-18 15:17 | CP.PCM.PN ---
Subjective - Date & Time of Evaluation Date of Evaluation: 11/16/17 Time of Evaluation: 18:00 - Subjective Subjective: more alert and responsive no chest pain sequence of events noted Objective - Vital Signs/Intake and Output Vital Signs (last 24 hours): Temp Pulse Resp BP Pulse Ox 98.5 F 85 20 144/70 100 11/18/17 07:20 11/18/17 12:00 11/18/17 07:20 11/18/17 07:20 11/18/17 07:20 Intake and Output: 11/18/17 11/18/17 06:59 18:59 Intake Total 300 Balance 300 - Medications Medications: Current Medications Acetaminophen (Tylenol 325mg Tab) 650 mg PO Q6 PRN PRN Reason: Pain, Mild (1-3) Last Admin: 11/18/17 11:08 Dose: 650 mg Albumin Human (Albumin Human 25% (12.5 Gm/50 Ml)) 12.5 gm IV TTS PRN PRN Reason: hypotension Stop: 11/21/17 08:36 Last Admin: 11/15/17 09:56 Dose: 12.5 gm Albuterol (Ventolin Hfa 90 Mcg/Actuation (8 G)) 1 puff INH RQ4 PRN PRN Reason: Shortness of Breath Last Admin: 11/18/17 13:17 Dose: 1 puff Albuterol/Ipratropium (Duoneb 3 Mg/0.5 Mg (3 Ml) Ud) 3 ml INH RQ4 [facility] Last Admin: 11/18/17 12:20 Dose: 3 ml Budesonide (Pulmicort Respules) 0.25 mg INH RQ12 [facility] Last Admin: 11/18/17 07:32 Dose: 0.25 mg Vancomycin/Sodium Chloride (Vancomycin 1 Gm/Ns 200 Ml) 1 gm in 200 mls @ 133 mls/hr IVPB TTS [facility] PRN Reason: Protocol Stop: 11/22/17 10:01 Last Admin: 11/17/17 15:59 Dose: 133 mls/hr Insulin Aspart (Novolog) 0 unit SC ACHS [facility] PRN Reason: Protocol Last Admin: 11/18/17 12:18 Dose: Not Given Pantoprazole Sodium (Protonix Ec Tab) 40 mg PO DAILY [facility] Last Admin: 11/18/17 09:46 Dose: 40 mg Paricalcitol (Zemplar) 2 mcg IV TTS [facility] Rosuvastatin Calcium (Crestor) 2.5 mg PO HS [facility] Last Admin: 11/17/17 22:35 Dose: 2.5 mg Sevelamer Carbonate (Renvela) 800 mg PO TIDCC [facility] Last Admin: 11/18/17 13:43 Dose: 800 mg Vitamin B Complex/Vit C/Folic Acid (Nephro-Renaldo) 1 tab PO 0800 [facility] Last Admin: 11/18/17 08:22 Dose: 1 tab - Labs Labs: 11/17/17 06:21 11/17/17 06:21 PT 11.8 SECONDS (9.7-12.2) 11/10/17 18:20 INR 1.1 11/10/17 18:20 APTT 40 SECONDS (21-34) H 11/10/17 18:20 - Constitutional Appears: Chronically Ill - Head Exam Head Exam: NORMOCEPHALIC - Eye Exam Eye Exam: absent: Scleral icterus - Cardiovascular Exam Cardiovascular Exam: REGULAR RHYTHM - GI/Abdominal Exam GI & Abdominal Exam: Normal Bowel Sounds - Extremities Exam Extremities Exam: absent: Pedal Edema - Neurological Exam Neurological Exam: Alert, Oriented x3 Assessment and Plan - Assessment and Plan (Free Text) Assessment: Altered mental status - 2ndary to sedatives CAD ESRD SSS Hx of multiple CVA Plan: Cont meds HD
[2017-11-18] MEDS: Rosuvastatin Calcium 2.5 mg Tab PO SCH (21:29)
[2017-11-19] MEDS: Albuterol HFA 90 mcg/actuation (8 g) INH PRN ×3 (00:44→13:44)
[2017-11-19] MEDS: Albuterol-Ipratrop 3 mg / 0.5 (3 ml) UD INH SCH ×4 (00:45→12:59)
--- NOTE | 2017-11-19 06:55 | PN ---
DATE: 11/18/2017. LOCATION: Room 665, bed B. REQUESTED BY: Dr. Fabiano Rodas. REASON FOR FOLLOWUP: End-stage renal disease, status post GI bleed and severe anemia for continuation with hemodialysis. HISTORY OF PRESENT ILLNESS'S: Mr. Gonzales is a 67 years elderly obese [place] male with a past medical history significant for longstanding hypertension, diabetes, coronary artery disease status post CABG, end-stage renal disease on hemodialysis three times a week Sunday, , Sunday, CVA with left-sided weakness was admitted from the shelter with altered mental status, hypotension, bradycardia and severe anemia and history of black stool for a few days prior to the admission. The patient was found to have hemoglobin 4 and hematocrit is about 13, requiring admission to ICU and transfusion about 3 units immediately with persistent decreasing H and H. The patient underwent receiving another 2 units of packed RBC total 5 units of packed RBC since admission. The patient was transferred back to medical floor from ICU last night. The patient is not in acute distress, sometimes anxious, very nervous, seeking frequent attention from the nurses. The patient's niece is at bedside. Denies any complaints. The patient is eager to go back to his shelter. PHYSICAL EXAMINATION: VITAL SIGNS: Blood pressure 144/70, pulse 79, respirations 20, temperature 98.5, saturation 100%. Height 5 feet 7 inches and weight is 198 pounds. GENERAL: Mr. Gonzales is a 67 years old elderly [place] male, well built, well nourished, not in distress. HEENT: Pupils normal, react to light and accommodation. Conjunctivae pink. Sclerae anicteric. Tongue is moist and trachea is midline. LUNGS: Symmetric on both sides. Bilateral breath sounds present. Occasional left basal crackles present. CVS: [place] at the fifth intercostal space, midclavicular line. S1 and S2 audible. No murmur or gallop. ABDOMEN: Normal in appearance, soft, tympanic. No guarding, no rigidity. No hepatosplenomegaly. CASE SUPERVISOR: The patient is alert, awake, oriented x3. Sensory system is within normal limits. Motor system, left sided weakness with contraction of the left hand. EXTREMITIES: No cyanosis, no clubbing. No edema today. CURRENT MEDICATIONS: Crestor 2.5 mg p.o. at bedtime, DuoNeb inhaler 3 mL every 4 hours, Nephro-Renaldo 1 tablet daily, NovoLog for sliding scale, Protonix 40 mg p.o. daily, Pulmicort 0.25 mg inhaler every 12 hours, Renvela 800 mg p.o. t.i.d., Tylenol 650 mg p.o. every 6 hours p.r.n., vancomycin 1 gm three times a week, Sunday, , Sunday, Ventolin 1 puff inhaler every 4 hours p.r.n. and Zemplar 2 mcg three times a week. LABORATORY DATA: His Accu-Cheks 108, 89, 90 and CPK is 36, CK-MB is 1.85, troponin 0.071. ASSESSMENT: In summary, Mr. Gonzales is a 67 years elderly [place] male, obese with history of hypertension, diabetes, end-stage renal disease, coronary artery disease status post coronary artery bypass graft, cerebrovascular accident with left-sided weakness with asthma chronic obstructive pulmonary disease, status post gastrointestinal bleed, severe anemia, hemoglobin about 4, requiring multiple transfusions about 5 units of packed RBC, status post EGD and status post pacemaker placement during this admission prior to the endoscopy . The patient is not in distress. 1. End-stage renal disease. Continue hemodialysis three times a week Sunday, , Sunday. 2. Hypertension. Blood pressure is stable now. 3. Anemia. H and H is stable. PLAN: Continue Epogen during hemodialysis three times a week. The patient was given 1 dose of Procrit today. Restrict fluids to 1 liter per day and continue antibiotics as per Dr. Rodas. Repeat CBC, BMP, phosphorus in a.m. We will follow with you. Discussed with Dr. Rodas in rounds today for possible discharge in a.m. Thank you for allowing me to participate in your patient's care. Martin Ortiz MD [facility]
[2017-11-19 07:52] VITALS: BP 156/66; RESP 18; TEMP 98; O2SAT 100
[2017-11-19] MEDS: (Novolog) Insulin Aspart, Recombinant 100 u/ml 10 ml vial SC SCH ×2 (08:00→12:14)
[2017-11-19] MEDS: Budesonide 0.25 mg/2 ml Inhal Susp UD INH SCH (08:07)
[2017-11-19] MEDS: Multivitamin Vitamin B Complex (Nephro-Vite) Tab PO SCH (08:31)
[2017-11-19] MEDS: Pantoprazole 40 mg EC Tab PO SCH (10:13)
--- NOTE | 2017-11-19 10:43 | CP.PCM.PN ---
Subjective - Date & Time of Evaluation Date of Evaluation: 11/19/17 Time of Evaluation: 07:00 - Subjective Subjective: doing better denies fever or chills Objective - Vital Signs/Intake and Output Vital Signs (last 24 hours): Temp Pulse Resp BP Pulse Ox 98.0 F 93 H 18 156/66 H 100 11/19/17 07:40 11/19/17 07:40 11/19/17 07:40 11/19/17 07:40 11/19/17 07:40 - Medications Medications: Current Medications Acetaminophen (Tylenol 325mg Tab) 650 mg PO Q6 PRN PRN Reason: Pain, Mild (1-3) Last Admin: 11/19/17 04:32 Dose: 650 mg Albumin Human (Albumin Human 25% (12.5 Gm/50 Ml)) 12.5 gm IV TTS PRN PRN Reason: hypotension Stop: 11/21/17 08:36 Last Admin: 11/15/17 09:56 Dose: 12.5 gm Albuterol (Ventolin Hfa 90 Mcg/Actuation (8 G)) 1 puff INH RQ4 PRN PRN Reason: Shortness of Breath Last Admin: 11/19/17 04:38 Dose: 1 puff Albuterol/Ipratropium (Duoneb 3 Mg/0.5 Mg (3 Ml) Ud) 3 ml INH RQ4 BELL Last Admin: 11/19/17 08:07 Dose: 3 ml Budesonide (Pulmicort Respules) 0.25 mg INH RQ12 BELL Last Admin: 11/19/17 08:07 Dose: 0.25 mg Vancomycin/Sodium Chloride (Vancomycin 1 Gm/Ns 200 Ml) 1 gm in 200 mls @ 133 mls/hr IVPB TTS BELL PRN Reason: Protocol Stop: 11/22/17 10:01 Last Admin: 11/17/17 15:59 Dose: 133 mls/hr Insulin Aspart (Novolog) 0 unit SC ACHS BELL PRN Reason: Protocol Last Admin: 11/19/17 08:00 Dose: Not Given Ondansetron HCl (Zofran Inj) 4 mg IVP Q6 PRN PRN Reason: Nausea/Vomiting Pantoprazole Sodium (Protonix Ec Tab) 40 mg PO DAILY BELL Last Admin: 11/19/17 10:13 Dose: 40 mg Paricalcitol (Zemplar) 2 mcg IV TTS [facility] Rosuvastatin Calcium (Crestor) 2.5 mg PO HS [facility] Last Admin: 11/18/17 21:29 Dose: 2.5 mg Sevelamer Carbonate (Renvela) 800 mg PO TIDCC [facility] Last Admin: 11/19/17 08:34 Dose: 800 mg Vitamin B Complex/Vit C/Folic Acid (Nephro-Renaldo) 1 tab PO 0800 BELL Last Admin: 11/19/17 08:31 Dose: 1 tab - Labs Labs: 11/17/17 06:21 11/17/17 06:21 PT 11.8 SECONDS (9.7-12.2) 11/10/17 18:20 INR 1.1 11/10/17 18:20 APTT 40 SECONDS (21-34) H 11/10/17 18:20 - Constitutional Appears: Non-toxic, Chronically Ill - Head Exam Head Exam: NORMOCEPHALIC - Eye Exam Eye Exam: Normal appearance, PERRL - ENT Exam ENT Exam: Mucous Membranes Dry - Neck Exam Neck Exam: absent: Lymphadenopathy - Respiratory Exam Respiratory Exam: Decreased Breath Sounds - Cardiovascular Exam Cardiovascular Exam: REGULAR RHYTHM - GI/Abdominal Exam GI & Abdominal Exam: Distended, Soft Assessment and Plan (1) Anemia Status: Acute (2) Gastrointestinal hemorrhage Status: Acute (3) Acute hyperkalemia Status: Acute (4) CAD (coronary artery disease) of artery bypass graft Status: Acute (5) CHF (congestive heart failure), NYHA class III Status: Acute (6) COPD (chronic obstructive pulmonary disease) Status: Acute (7) ESRD (end stage renal disease) on dialysis Status: Acute (8) ASHD (arteriosclerotic heart disease) Status: Chronic (9) Diabetes Status: Chronic (10) History of CVA (cerebrovascular accident) Status: Chronic (11) Hypertension Status: Chronic (12) Sleep apnea Status: Chronic
--- NOTE | 2017-11-19 15:49 | CP.PCM.CON ---
History of Present Illness - History of Present Illness History of Present Illness: Reason for consult: shortness of breath, wheezing HPI: 67M well known to me from ICU stay, previous admissions with PMHx of Quadruple bypass, COPD, Sleep apnea, ESRD on HD presented to the ED 11/10 from the retirement due to hypotension and bradycardia. While on the floors on , he desaturated to the 80's and a GROOMING ASSISTANT was called. He improved on BiPAP and was transferred to the ICU for more intensive monitoring. He was later transferred back to the med/surg floors on telemetry. Today, the patient was seen and examined at bedside. He reports some shortness of breath but not far from his baseline. He reports that he will be transferred back to the retirement today. PMHx: COPD, sleep apnea, ESRD on HD. CVA affecting left, HTN, DM PSH: CABG (quadruple bypass 2006), Endoscopy, pacemaker Allergies: iodine, aspirin, plavix SH: Assessment and Plan: 1. COPD - duonebs - budesonide - nebulizer treatments - BiPAP Past Patient History - Infectious Disease Hx of Infectious Diseases: None - Past Medical History & Family History Past Medical History?: Yes - Past Social History Smoking Status: Never Smoked - CARDIAC Hx Congestive Heart Failure: Yes Hx Hypertension: Yes Hx Pacemaker: Yes Hx Peripheral Edema: Yes - PULMONARY Hx Asthma: Yes Hx Chronic Obstructive Pulmonary Disease (COPD): Yes Hx Sleep Apnea: Yes - NEUROLOGICAL HX Cerebrovascular Accident: Yes (non ambulatory) - HEENT Hx HEENT Problems: Yes Hx Cataracts: Yes - RENAL Hx Chronic Kidney Disease: Yes - ENDOCRINE/METABOLIC Hx Diabetes Mellitus Type 2: Yes - HEMATOLOGICAL/ONCOLOGICAL Hx Anemia: Yes - INTEGUMENTARY Hx Dermatological Problems: Yes Other/Comment: healed sacral ulcer - MUSCULOSKELETAL/RHEUMATOLOGICAL Hx Musculoskeletal Disorders: Yes Hx Falls: Yes Hx Unsteady Gait: Yes Other/Comment: HX: MUSCLE WEAKNESS(GENERALIZED), Left sided body weakness due to CVA - GASTROINTESTINAL Hx Gastrointestinal Disorders: Yes Other/Comment: HX: DYSPHAGIA,UNSPECIFIED - GENITOURINARY/GYNECOLOGICAL Hx Genitourinary Disorders: No - PSYCHIATRIC Hx Depression: Yes ('MAJOR DEPRESSIVE DISORDER,SINGLE EPISODE,UNSPECIFIED") Hx Substance Use: No - SURGICAL HISTORY Hx Coronary Artery Bypass Graft: Yes - ANESTHESIA Hx Anesthesia: Yes Hx Anesthesia Reactions: No Hx Malignant Hyperthermia: No Meds Allergies/Adverse Reactions: Allergies Allergy/AdvReac Type Severity Reaction Status Date / Time iodine Allergy Intermediate RASH Verified 09/25/17 21:16 aspirin Allergy unknown Verified 11/16/17 07:27 clopidogrel [From Plavix] Allergy SHORTNESS Verified 09/26/17 17:18 OF BREATH clopidogrel bisulfate Allergy UNKNOWN Verified 09/25/17 21:16 [From Plavix] Opioids - Morphine Analogues Allergy hypercapnic Verified 11/16/17 07:27 respiratory failure penicillin G Allergy SHORTNESS Verified 09/26/17 17:18 OF BREATH Penicillins Allergy UNKNOWN Verified 09/25/17 21:16 zolpidem [From Ambien] Allergy hypercapnic Verified 11/16/17 07:27 respiratory failure IV DYE Allergy unknown Uncoded 11/16/17 07:27 Results - Vital Signs Recent Vital Signs: Last Vital Signs Temp 98.0 F 11/19/17 07:40 Pulse 93 H 11/19/17 07:40 Resp 18 11/19/17 07:40 BP 156/66 H 11/19/17 07:40 Pulse Ox 100 11/19/17 07:40 - Labs Result Diagrams: 11/17/17 06:21 11/17/17 06:21 Labs: Laboratory Results - last 24 hr 11/18/17 11/18/17 11/19/17 17:27 21:06 06:19 POC Glucose (mg/dL) 89 116 H 102 11/19/17 11:46 POC Glucose (mg/dL) 110
[2017-11-19 16:27] VITALS: PULSE 84
--- NOTE | 2017-11-19 16:53 | PCM.HF ---
Heart Failure Core Measure - Heart Failure Ejection Fraction: 40 % or Greater PRO Inhibitor Prescribed: Yes Beta-Ozzy Prescribed: None Contraindication/Reason for not providing: COPD Angiotensin II Receptor Ozzy Prescribed: No Contraindication/Reason for not providing: ON PRO AnticoagulationTherapy for Atrial Fibrillation/Atrialflutter: No Contraindication/Reason for not providing: NO HX OF AFIB Aldosterone Antagonist Prescribed: No Contraindication/Reason for not providing: EF>55 Hydralazine Nitrate Prescribed: No Contraindication/Reason for not providing: EF>55 Implantable Cardioverter Defibrillator Therapy: No Contraindication/Reason for not providing: EF>45 Cardiac Resynchronization Therapy Prescribed: No Contraindication/Reason for not providing: EF>45 - Follow up Will be discharged to: [facility] Follow Up Date (must be within 7 days from discharge): 11/23/17 Follow Up Time: 09:00
[2017-11-20] MEDS ORDERED: Paricalcitol 2 mcg/ml Inj IV SCH (10:00)
== END 2017-11-19 15:38 | DRG 242 ==
LOC: C.ER 18:00 → C.9I 18:41 → C.5S 11-14 18:48 → C.9I 11-15 08:35 → C.6T 11-17 18:38
PROVIDERS: ADMIT Internal Medicine; ATTEND Internal Medicine
PROC: 5A1D70Z Performance of Urinary Filtration, Intermittent, Less than 6 Hours Per Day (ICD-10-PCS; principal; 2017-11-10)
PROC: 4A143B0 Monitoring of Venous Pressure, Central, Percutaneous Approach (ICD-10-PCS; 2017-11-10)
PROC: 0JH606Z Insertion of Pacemaker, Dual Chamber into Chest Subcutaneous Tissue and Fascia, Open Approach (ICD-10-PCS; 2017-11-13)
PROC: 02H63JZ Insertion of Pacemaker Lead into Right Atrium, Percutaneous Approach (ICD-10-PCS; 2017-11-13)
PROC: 5A1D70Z Performance of Urinary Filtration, Intermittent, Less than 6 Hours Per Day (ICD-10-PCS; 2017-11-13)
PROC: 02HK3JZ Insertion of Pacemaker Lead into Right Ventricle, Percutaneous Approach (ICD-10-PCS; 2017-11-13)
PROC: 0DB98ZZ Excision of Duodenum, Via Natural or Artificial Opening Endoscopic (ICD-10-PCS; 2017-11-14)
PROC: 5A1D70Z Performance of Urinary Filtration, Intermittent, Less than 6 Hours Per Day (ICD-10-PCS; 2017-11-15)
PROC: 5A1935Z Respiratory Ventilation, Less than 24 Consecutive Hours (ICD-10-PCS; 2017-11-15)
PROC: 5A1D70Z Performance of Urinary Filtration, Intermittent, Less than 6 Hours Per Day (ICD-10-PCS; 2017-11-17)
DX: I45.2 Bifascicular block (principal); J96.92 Respiratory failure, unspecified with hypercapnia; N18.6 End stage renal disease; A41.9 Sepsis, unspecified organism; I25.810 Atherosclerosis of coronary artery bypass graft(s) without angina pectoris; I13.2 Hypertensive heart and chronic kidney disease with heart failure and with stage 5 chronic kidney disease, or end stage renal disease; I69.254 Hemiplegia and hemiparesis following other nontraumatic intracranial hemorrhage affecting left non-dominant side; I49.5 Sick sinus syndrome; G47.30 Sleep apnea, unspecified; F45.41 Pain disorder exclusively related to psychological factors; F32.9 Major depressive disorder, single episode, unspecified; D50.0 Iron deficiency anemia secondary to blood loss (chronic); E11.22 Type 2 diabetes mellitus with diabetic chronic kidney disease; E11.40 Type 2 diabetes mellitus with diabetic neuropathy, unspecified; E11.649 Type 2 diabetes mellitus with hypoglycemia without coma; E86.1 Hypovolemia; E87.5 Hyperkalemia; E66.9 Obesity, unspecified; I48.0 Paroxysmal atrial fibrillation; I95.3 Hypotension of hemodialysis; J44.9 Chronic obstructive pulmonary disease, unspecified; K29.60 Other gastritis without bleeding; K21.0 Gastro-esophageal reflux disease with esophagitis; I50.9 Heart failure, unspecified; K44.9 Diaphragmatic hernia without obstruction or gangrene; K56.41 Fecal impaction; R09.02 Hypoxemia; Z99.2 Dependence on renal dialysis; K31.7 Polyp of stomach and duodenum

== ENCOUNTER 2017-11-24 17:26 | Inpatient (IN) | payer MEDICARE, MEDICAID ==
[2017-11-24 17:30] VITALS: BMI 33.4
--- NOTE | 2017-11-24 17:42 | C.PDOC ---
History Of Present Illness <Farzaneh St - Last Filed: 11/24/17 18:58> <Mario Armstrong - Last Filed: 11/25/17 00:28> HPI limited due to clinical condition. Per EMS patient was [facility] un[facility] bed [facility]. S/P full HD as per jail this afternoon. S/P BIPAP en route with no improved alertness, perfusion. Patient has prior recent admission fir bradycardia and hypertension. Patient has PMHx of quadruple bypass , COPD, sleep apnea, ESERD on HD., CVA affecting left, HTN, and DM. Patient's PSH of CABG (quardruple bypass 2006), endoscopy, pacemaker. LIMITED DUE TO CLIN COND PER EMS, PT FOUND UNRESPONSIVE IN BED IN NH. S/P FULL HD PER NH THIS AFTERNOON. S/P BIPAP EN ROUTE NO IMPROVED ALERTNESS, PERFUSION. SP RECENT ADMISSION FOR BRADYCARDIA AND HYPOTENSION. PMHx of Quadruple bypass, COPD, Sleep apnea, ESRD on HD PMHx: COPD, sleep apnea, ESRD on HD. CVA affecting left, HTN, DM PSH: CABG (quadruple bypass 2006), Endoscopy, pacemaker ROS LIMITED DUE TO CLIN COND EXAM MOD DIST BIPAP IN PROGRESS LUNGS TACHYPNEA RETRACTIONS B/L RALES CV RRR ABD NEG NEURO CHRONIC L SIDED CONTRACTURES CHEST PORTACATH R CHEST WALL EXT L AV FISTULA REMAINDER NEG ([facility]) History Per: EMS History/Exam Limitations: clinical condition Onset/Duration Of Symptoms: Hrs Current Symptoms Are (Timing): Still Present Current Respiratory Medications: See Home Med List Recent travel outside of the [place]: No <Farzaneh St - Last Filed: 11/24/17 18:58> <Mario Armstrong - Last Filed: 11/25/17 00:28> Time Seen by Provider: 11/24/17 17:32 Chief Complaint (Nursing): Respiratory Distress Past Medical History Reviewed: Historical Data, Nursing Documentation, Vital Signs - Medical History PMH: Anemia, Asthma, CHF, COPD, CVA (affecting left side), Depression ('MAJOR DEPRESSIVE DISORDER,SINGLE EPISODE,UNSPECIFIED"), HTN, Peripheral Edema, End Stage Renal Disease, Chronic Kidney Disease, Sleep Apnea Surgical History: CABG, Endoscopy, Pacemaker Family History: States: Unknown Family Hx - Social History Hx Alcohol Use: No Hx Substance Use: No - Immunization History Hx Influenza Vaccination: Yes Hx Pneumococcal Vaccination: Yes <Farzaneh St - Last Filed: 11/24/17 18:58> Vital Signs: Last Vital Signs Temp 98.0 F 11/24/17 22:45 Pulse 77 11/24/17 22:54 Resp 19 11/24/17 22:45 BP 128/47 L 11/24/17 22:45 Pulse Ox 98 11/24/17 22:45 - [facility] Procedures (11/10/17) DIALYSIS ARTERIOVENOSTOM (10/07/14) EXCISION OF DUODENUM, ENDO (11/10/17) EXCISION OF SIGMOID COLON, ENDO, DIAGN (09/26/16) INCIS W REM OF FORIEGN BODY OR DEV FROM SKIN & SUBCUT TISSUE (12/23/14) INSERT PACE. DUAL MARGIE IN CHEST SUBCU/FASCIA, OPEN (11/10/17) INSERTION OF PACEMAKER LEAD INTO R VENTRICLE, PERC APPROACH (11/10/17) INSERTION OF PACEMAKER LEAD INTO RIGHT ATRIUM, PERC APPROACH (11/10/17) MONITORING OF VENOUS PRESSURE, CENTRAL, PERC APPROACH (11/10/17) PERFORMANCE OF URINARY FILTRATION, MULTIPLE (04/11/17) RESPIRATORY VENTILATION, LESS THAN 24 CONSECUTIVE HOURS (11/10/17) Review Of Systems Review Of Systems: ROS cannot be obtained secondary to pt's inabilty to answer questions. (Limited due to clinical condition) <Farzaneh St Last Filed: 11/24/17 18:58> Physical Exam - Physical Exam Appears: Non-toxic, Other (Moderate distress. BIPAP in progress. ) Skin: Normal Color, Warm, Dry Head: Atraumatic, Normacephalic Eye(s): bilateral: Normal Inspection, PERRL, EOMI Oral Mucosa: Moist Neck: Supple Chest: Symmetrical, No Tenderness, Other (PORTACATH RIGHT CHEST WALL) Cardiovascular: Rhythm Regular Respiratory: No Decreased Breath Sounds, Rales ( retractions bilaterally ), No Rhonchi, No Wheezing, Other (Tachypnea ) Gastrointestinal/Abdominal: Soft, No Tenderness, No Distention Extremity: No Pedal Edema, No Deformity, Other (Left AV Fistula ) Neurological/Psych: Other (CHRONIC LEFT SIDED CONTRACTURES) <Farzaneh St - Last Filed: 11/24/17 18:58> ED Course And Treatment - Laboratory Results Result Diagrams: 11/24/17 18:03 11/24/17 18:03 - Other Rad CXR X-Ray: Interpreted by Me, Viewed By Me Interpretation: - Chronic CHF improved from prior <Farzaneh St - Last Filed: 11/24/17 18:58> - Laboratory Results Result Diagrams: 11/24/17 18:03 11/24/17 18:03 <Mario Armstrong - Last Filed: 11/25/17 00:28> Progress - Data Reviewed Data Reviewed: Lab, Diagnostic imaging, EKG, Old records - Critical Care Citical Care: Excluding Proc Time Critical Care Time: 90 minutes <[address] St - Last Filed: 11/24/17 18:58> <Mario Armstrong - Last Filed: 11/25/17 00:28> - Re-Evaluation Re-evaluation Note: 11/24/17 17:42 88% RA. PS FAINTED AFTER HD. NO ASSOC ZENG, CP. PERSIST RETRACTIONS. PS ON CHRONIC O2 2.5L NC. 11/24/17 17:55 D/W DR COLLIER: AWARE OF ER FINDINGS. ACCEPTS FOR OBS. REQUESTS CT HEAD, CONSULT DR THOMPSON 11/24/17 19:00 IMPROVED NARD VSS. STABLE ON VAPOTHERM. PENDING HEAD CT ([facility] [facility]) Medical Decision Making <Farzaneh St - Last Filed: 11/24/17 18:58> <Mario Armstrong - Last Filed: 11/25/17 00:28> Medical Decision Making: Administered albuterol neunebulizer treatment. COLU-Medrol, and Nitroglycerin. Ordered BG, EKG, CT of head, blood culture and CXR. EKG Results: - Paced at 79 bpm ([address]) pt endorsed to me pending head ct. noted blood gas on high flow, bipap intiiated. cxr reviewed. chf vs infiltrate. antibiotics ordered. discussed case with icu. pt accepted to icu. repeat blood gas shows improvemnt of co2. pt deciding on code status. full code at this time. (Mario Armstrong) Disposition Counseled Patient/Family Regarding: Studies Performed, Diagnosis - Disposition Disposition Time: 17:59 - POA Present On Arrival: None <Farzaneh St - Last Filed: 11/24/17 18:58> <Mario Armstrong - Last Filed: 11/25/17 00:28> - Disposition Disposition: HOSPITALIZED Condition: STABLE - Clinical Impression Clinical Impression: Syncope, ESRD (end stage renal disease) on dialysis, Dyspnea - Scribe Statement The provider has reviewed the documentation as recorded by the Scribe <MacielFarzaneh - Last Filed: 11/24/17 18:58> <Mario Armstrong - Last Filed: 11/25/17 00:28> - Scribe Statement Michael Pepe All medical record entries made by the Scribe were at my direction and personally dictated by me. I have reviewed the chart and agree that the record accurately reflects my personal performance of the history, physical exam, medical decision making, and the department course for this patient. I have also personally directed, reviewed, and agree with the discharge instructions and disposition. (Farzaneh St) Physician Patient Turnover Patient Signed Over To: Mario Armstrong Handoff Comments: FU CT, ADMISSION <Farzaneh St - Last Filed: 11/24/17 18:58> Decision To Admit <MacielFarzaneh - Last Filed: 11/24/17 18:58> - Pt Status Changed To: Hospital Disposition Of: Inpatient - Admit Certification Admit to Inpatient:: After my assessment, the patient will require hospitalization for at least two midnights. This is because of the severity of symptoms shown, intensity of services needed, and/or the medical risk in this patient being treated as an outpatient. - InPatient: Physician Admission Certification: I certify that this patient requires 2 or more midnights of care for the following reason:: needs icu - . Bed Request Type: ICU Admitting Physician: Theodore Collier <Mario Armstrong - Last Filed: 11/25/17 00:28> - . Patient Diagnosis: Syncope, ESRD (end stage renal disease) on dialysis, Dyspnea
[2017-11-24] MEDS ORDERED: Nitroglycerin 2% Ointment Foilpak UD TOP STA (17:45)
[2017-11-24] MEDS ORDERED: MethylPREDNISolone 40 mg Vial IVP STA (17:46)
[2017-11-24 18:05] LABS: VENOUS BLOOD GAS PCO2 109 mmHg (40-60); VENOUS BLOOD GAS PO2 40 mm/Hg (30-55); VENOUS BLOOD PH 7.19 (7.32-7.43)
[2017-11-24] MEDS: Albuterol-Ipratrop 3 mg / 0.5 (3 ml) UD IH SCH ×3 (18:05→18:35)
[2017-11-24 18:06] LABS: BASO # 0.1 K/uL (0.0-0.2); BASO % 1.4 % (0.0-2.0); EOS # 0.6 K/uL (0.0-0.7); EOS % 6.1 % (0.0-4.0); HEMOGLOBIN 9.5 g/dL (12.0-18.0); LYMPH # 0.5 K/uL (1.0-4.3); LYMPH % 5.2 % (20.0-40.0); MEAN CELL VOLUME 101.3 fL (80.0-94.0); MEAN CORPUSCULAR HEMOGLOBIN 32.7 pg (27.0-31.0); MEAN CORPUSCULAR HGB CONC 32.3 g/dL (33.0-37.0); MEAN PLATELET VOLUME 7.3 fL (7.2-11.7); MONO # 1.1 K/uL (0.0-0.8); MONO % 10.9 % (0.0-10.0); NEUT # 7.7 K/uL (1.8-7.0); NEUT % 76.4 % (50.0-75.0); NRBC % 0.3 % (0.0-2.0); PLATELET COUNT 164 K/uL (130-400); RBC 2.91 Mil/uL (4.40-5.90); RED CELL DISTRIBUTION WIDTH 19.8 % (11.5-14.5); WHITE BLOOD COUNT 10.1 K/uL (4.8-10.8)
[2017-11-24] MEDS ORDERED: Albuterol-Ipratrop 3 mg / 0.5 (3 ml) UD ONE (18:14)
[2017-11-24 18:17] LABS: PROTHROMBIN TIME 11.2 SECONDS (9.7-12.2)
[2017-11-24 18:24] LABS: ALB/GLOB RATIO 0.9 (1.0-2.1); ALBUMIN 3.2 g/dL (3.5-5.0); CALCIUM 8.1 mg/dl (8.6-10.4)
[2017-11-24] MEDS ORDERED: Nitroglycerin 2% Ointment Foilpak UD TOP ONE (18:24)
[2017-11-24 18:30] LABS: TROPONIN I 0.084 ng/mL (0.00-0.120)
[2017-11-24 19:14] LABS: BANDS 1 % (0-2); EOSINOPHIL 7 % (0-4); LYMPHOCYTE 5 % (20-40); MONOCYTE 11 % (0-10); NEUTROPHIL 76 % (50-75); PLATELET ESTIMATE NORMAL (NORMAL); TOTAL CELLS COUNTED 100
[2017-11-24 19:15] LABS: ANISOCYTOSIS SLIGHT; POIKILOCYTOSIS SLIGHT
[2017-11-24 21:21] LABS: ARTERIAL BLOOD GAS HCO3 32.8 mmol/L (21-28); ARTERIAL BLOOD GAS HEMOGLOBIN 10.5 g/dL (11.7-17.4); ARTERIAL BLOOD GAS PCO2 94 mm/Hg (35-45); ARTERIAL BLOOD GAS PH 7.24 (7.35-7.45); ARTERIAL BLOOD GAS PO2 98 mm/Hg (80-100); ARTERIAL BLOOD GAS TCO2 43.2 mmol/L (22-28)
[2017-11-24] MEDS ORDERED: Ciprofloxacin 400mg/200ml D5W 400 MG/200 ML BAG IVPB STA (21:25)
[2017-11-24] MEDS ORDERED: Vancomycin 1 gm/NS 200 ml 1 GM/200 ML BAG IVPB STA (21:35)
--- NOTE | 2017-11-24 22:10 | CT ---
EXAM: CT Head Without Intravenous Contrast CLINICAL HISTORY: 67 years old, male; Pain; Headache; Additional info: Syncope TECHNIQUE: Axial computed tomography images of the head/brain without intravenous contrast. All CT scans at this facility use one or more dose reduction techniques, viz.: automated exposure control; ma/kV adjustment per patient size (including targeted exams where dose is matched to indication; i.e. head); or iterative reconstruction technique. Coronal and sagittal reformatted images were created and reviewed. COMPARISON: CT - HEAD W/O CONTRAST 2017-11-10 19:48 FINDINGS: Limitations: Motion artifact - mild. Brain: Mild atrophy. No definite intracranial hemorrhage. No mass. Few scattered foci of decreased attenuation within periventricular/subcortical white matter. No definite edema. Ventricles: No hydrocephalus. Bones/joints: No acute fracture. Soft tissues: Unremarkable. Vasculature: Atherosclerotic disease of intracranial and extracranial arteries. Sinuses: Scattered minimal to mild mucosal thickening. Air-fluid levels within sphenoid sinuses. Mastoid air cells: No mastoid effusion. Orbits: Unremarkable as visualized. IMPRESSION: 1. Nonspecific white matter changes. Acute infarction may be CT occult within first 24 hours. If a focal deficit persists, consider followup CT or MRI for further evaluation. 2. Sinus disease. 3. Incidental/non-acute findings are described above.
--- NOTE | 2017-11-24 22:12 | CP.PCM.CON ---
History of Present Illness - History of Present Illness History of Present Illness: CCM 67 yo male NHR with hx HTN/DM /CABG " /ESRD /Favian /PPM 11/07 /CVA /EDITH /COPD had HD today then unresponisve. Pt BIBEMS on BIPAP then changed to high flow in ED. Pt back on BIPAP when seen by me. Pt gives minimal hx. Denied pain /nausea. ?sob. ?cough. Pt had resp acidosis on ABG and improving on repeat. ROS- as noted All- iodine /asa/clopidogrel Meds- reviewed FH- Unknown PE T-97.7 P-80 R-19 BP-138/51 Lethargic, responsive, follows commands Perrl Neck- no jvd lungs- bilat bs , at R base Heart-rr ABd- benign eXt- bipedal edema Neuro moves RUE, Left HP Labs, EKG,[id number] A&P Acute Hypercapneic Resp Failure COPD CHF r/o PNA ESRD Hx CVA HTN DM s/p PPM EDITH Admit to ICU resp monitoring BIPAP prn titrate O2 f/u ABG HD for fluid removal DVT prophylaxis Past Patient History - Infectious Disease Hx of Infectious Diseases: None - Past Medical History & Family History Past Medical History?: Yes - Past Social History Smoking Status: Never Smoked - CARDIAC Hx Congestive Heart Failure: Yes Hx Hypertension: Yes Hx Pacemaker: Yes Hx Peripheral Edema: Yes - PULMONARY Hx Asthma: Yes Hx Chronic Obstructive Pulmonary Disease (COPD): Yes Hx Sleep Apnea: Yes - NEUROLOGICAL Hx Neurological Disorder: Yes (SEE COMMENT) HX Cerebrovascular Accident: Yes (non ambulatory) Other/Comment: DYSPHAGIA. SLEEP APNEA - HEENT Hx HEENT Problems: Yes Hx Cataracts: Yes - RENAL Hx Chronic Kidney Disease: Yes - ENDOCRINE/METABOLIC Hx Endocrine Disorders: Yes Hx Diabetes Mellitus Type 2: Yes - HEMATOLOGICAL/ONCOLOGICAL Hx Anemia: Yes - INTEGUMENTARY Hx Dermatological Problems: Yes Other/Comment: healed sacral ulcer - MUSCULOSKELETAL/RHEUMATOLOGICAL Hx Musculoskeletal Disorders: Yes Hx Falls: Yes Hx Unsteady Gait: Yes Other/Comment: HX: MUSCLE WEAKNESS(GENERALIZED), Left sided body weakness due to CVA - GASTROINTESTINAL Hx Gastrointestinal Disorders: Yes Other/Comment: HX: DYSPHAGIA,UNSPECIFIED - GENITOURINARY/GYNECOLOGICAL Hx Genitourinary Disorders: No - PSYCHIATRIC Hx Depression: Yes ('MAJOR DEPRESSIVE DISORDER,SINGLE EPISODE,UNSPECIFIED") Hx Substance Use: No - SURGICAL HISTORY Hx Coronary Artery Bypass Graft: Yes - ANESTHESIA Hx Anesthesia: Yes Hx Anesthesia Reactions: No Hx Malignant Hyperthermia: No Meds Allergies/Adverse Reactions: Allergies Allergy/AdvReac Type Severity Reaction Status Date / Time iodine Allergy Intermediate RASH Verified 09/25/17 21:16 aspirin Allergy unknown Verified 11/24/17 17:31 clopidogrel [From Plavix] Allergy SHORTNESS Verified 11/24/17 17:31 OF BREATH clopidogrel bisulfate Allergy UNKNOWN Verified 11/24/17 17:31 [From Plavix] Opioids - Morphine Analogues Allergy hypercapnic Verified 11/24/17 17:31 respiratory failure penicillin G Allergy SHORTNESS Verified 11/24/17 17:31 OF BREATH Penicillins Allergy UNKNOWN Verified 11/24/17 17:31 zolpidem [From Ambien] Allergy hypercapnic Verified 11/24/17 17:31 respiratory failure IV DYE Allergy unknown Uncoded 11/24/17 17:31 - Medications Medications: Current Medications Ciprofloxacin (Cipro 400mg/200ml Dsw) 400 mg in 200 mls @ 133 mls/hr IVPB STAT STA PRN Reason: Protocol Stop: 11/24/17 22:55 Vancomycin/Sodium Chloride (Vancomycin 1 Gm/Ns 200 Ml) 1 gm in 200 mls @ 166.7 mls/hr IVPB STAT STA PRN Reason: Protocol Stop: 11/24/17 22:46 Results - Vital Signs Recent Vital Signs: Last Vital Signs Temp 97.7 F 11/24/17 17:46 Pulse 80 11/24/17 21:59 Resp 19 11/24/17 21:59 BP 125/48 L 11/24/17 21:59 Pulse Ox 95 11/24/17 21:59 - Labs Result Diagrams: 11/24/17 18:03 11/24/17 18:03 Labs: Laboratory Results - last 24 hr 11/24/17 11/24/17 11/24/17 17:34 17:58 18:03 WBC 10.1 D RBC 2.91 L Hgb 9.5 L Hct 29.4 L MCV 101.3 H MCH 32.7 H MCHC 32.3 L RDW 19.8 H Plt Count 164 MPV 7.3 Neut % (Auto) 76.4 H Lymph % (Auto) 5.2 L [place] % (Auto) 10.9 H Eos % (Auto) 6.1 H Baso % (Auto) 1.4 Neut # (Auto) 7.7 H Lymph # (Auto) 0.5 L [place] # (Auto) 1.1 H Eos # (Auto) 0.6 Baso # (Auto) 0.1 Neutrophils % (Manual) 76 H Band Neutrophils % 1 Lymphocytes % (Manual) 5 L Monocytes % (Manual) 11 H Eosinophils % (Manual) 7 H Platelet Estimate Normal Poikilocytosis (manual Slight Anisocytosis (manual) Slight Macrocytosis (manual) Slight PT INR APTT Puncture Site pCO2 pO2 40 HCO3 ABG pH ABG Total CO2 ABG O2 Saturation ABG Base Excess ABG Hemoglobin ABG Carboxyhemoglobin POC ABG HHb (Measured) ABG Methemoglobin Esvin Test VBG pH 7.19 L* VBG pCO2 109 H* VBG HCO3 31.0 VBG Total CO2 44.9 H VBG O2 Sat (Calc) 79.9 H VBG Base Excess 9.0 H VBG Potassium 3.6 A-a O2 Difference Respiratory Index Hgb O2 Saturation Sodium 139.0 Chloride 99.0 Glucose 135 H Lactate 0.8 Liter Flow FiO2 Crit Value Called To Crit Value Called By Crit Value Read Back Blood Gas Notified Time Potassium Carbon Dioxide Anion Gap BUN Creatinine Est GFR ( Amer) Est GFR (Non-Af Amer) POC Glucose (mg/dL) 133 H Random Glucose Calcium Total Bilirubin AST ALT Alkaline Phosphatase Troponin I NT-Pro-B Natriuret Pep Total Protein Albumin Globulin Albumin/Globulin Ratio Venous Blood Potassium 3.6 11/24/17 11/24/17 11/24/17 18:03 18:03 21:17 WBC RBC Hgb Hct MCV MCH MCHC RDW Plt Count MPV Neut % (Auto) Lymph % (Auto) [place] % (Auto) Eos % (Auto) Baso % (Auto) Neut # (Auto) Lymph # (Auto) [place] # (Auto) Eos # (Auto) Baso # (Auto) Neutrophils % (Manual) Band Neutrophils % Lymphocytes % (Manual) Monocytes % (Manual) Eosinophils % (Manual) Platelet Estimate Poikilocytosis (manual Anisocytosis (manual) Macrocytosis (manual) PT 11.2 INR 1.0 APTT [address]n/a pCO2 94 H* pO2 98 HCO3 32.8 H ABG pH 7.24 L ABG Total CO2 43.2 H ABG O2 Saturation 98.0 ABG Base Excess 10.1 H ABG Hemoglobin 10.5 L ABG Carboxyhemoglobin 2.3 H POC ABG HHb (Measured) 1.9 ABG Methemoglobin 1.0 Esvin Test n/a VBG pH VBG pCO2 VBG HCO3 VBG Total CO2 VBG O2 Sat (Calc) VBG Base Excess VBG Potassium A-a O2 Difference 498.0 Respiratory Index 5.1 Hgb O2 Saturation 94.8 L Sodium 140 Chloride 93 L Glucose Lactate Liter Flow 40.0 FiO2 100.0 Crit Value Called To Dr fall Crit Value Called By Ga/rt Crit Value Read Back Y Blood Gas Notified Time 2120 Potassium 3.9 Carbon Dioxide 39 H Anion Gap 12 BUN 12 Creatinine 2.3 H Est GFR ( Amer) 35 Est GFR (Non-Af Amer) 29 POC Glucose (mg/dL) Random Glucose 129 H Calcium 8.1 L Total Bilirubin 0.6 AST 20 ALT 15 L D Alkaline Phosphatase 132 H Troponin I 0.0840 NT-Pro-B Natriuret Pep 39854 H Total Protein 6.7 Albumin 3.2 L Globulin 3.6 Albumin/Globulin Ratio 0.9 L Venous Blood Potassium Assessment & Plan (1) Hypercapnic respiratory failure Status: Acute (2) CHF (congestive heart failure), NYHA class III Status: Acute (3) ESRD (end stage renal disease) on dialysis Status: Chronic (4) Pneumonia Status: Suspected
[2017-11-25 00:10] LABS: ARTERIAL BLOOD GAS HCO3 31.3 mmol/L (21-28); ARTERIAL BLOOD GAS PCO2 85 mm/Hg (35-45); ARTERIAL BLOOD GAS PH 7.27 (7.35-7.45); ARTERIAL BLOOD GAS PO2 59 mm/Hg (80-100); ARTERIAL BLOOD GAS TCO2 41.6 mmol/L (22-28)
[2017-11-25] MEDS: Albuterol-Ipratrop 3 mg / 0.5 (3 ml) UD INH SCH ×4 (02:00→19:37)
[2017-11-25] MEDS: MethylPREDNISolone 40 mg Vial IV SCH ×3 (05:19→22:35)
[2017-11-25 06:34] LABS: BASO % 0.2 % (0.0-2.0); EOS % 0.1 % (0.0-4.0); HEMOGLOBIN 9.1 g/dL (12.0-18.0); LYMPH # 0.3 K/uL (1.0-4.3); LYMPH % 4.6 % (20.0-40.0); MEAN CELL VOLUME 102.2 fL (80.0-94.0); MEAN CORPUSCULAR HEMOGLOBIN 32.8 pg (27.0-31.0); MEAN CORPUSCULAR HGB CONC 32.1 g/dL (33.0-37.0); MEAN PLATELET VOLUME 8.6 fL (7.2-11.7); MONO # 0.1 K/uL (0.0-0.8); MONO % 1.1 % (0.0-10.0); NEUT # 5.6 K/uL (1.8-7.0); NRBC % 0.2 % (0.0-2.0); PLATELET COUNT 139 K/uL (130-400); RBC 2.76 Mil/uL (4.40-5.90); RED CELL DISTRIBUTION WIDTH 19.6 % (11.5-14.5)
[2017-11-25 06:42] LABS: ARTERIAL BLOOD GAS HCO3 31.4 mmol/L (21-28); ARTERIAL BLOOD GAS HEMOGLOBIN 9.8 g/dL (11.7-17.4); ARTERIAL BLOOD GAS O2 SAT 89.7 % (95-98); ARTERIAL BLOOD GAS PCO2 75 mm/Hg (35-45); ARTERIAL BLOOD GAS PO2 48 mm/Hg (80-100); ARTERIAL BLOOD GAS TCO2 39.2 mmol/L (22-28)
[2017-11-25 06:54] LABS: ALB/GLOB RATIO 0.9 (1.0-2.1); CALCIUM 8.3 mg/dl (8.6-10.4)
[2017-11-25 08:46] LABS: BANDS 1 % (0-2); LYMPHOCYTE 8 % (20-40); MONOCYTE 2 % (0-10); NEUTROPHIL 89 % (50-75); PLATELET ESTIMATE NORMAL (NORMAL); TOTAL CELLS COUNTED 100
[2017-11-25 08:47] LABS: ANISOCYTOSIS MODERATE; HYPOCHROMIC SLIGHT; POLYCHROMIC SLIGHT
[2017-11-25] MEDS: Ciprofloxacin 400mg/200ml D5W 400 MG/200 ML BAG IVPB SCH ×2 (10:16→22:36)
--- NOTE | 2017-11-25 11:03 | RAD ---
PROCEDURE: CHEST RADIOGRAPH, 1 VIEW HISTORY: RESPIRATORY DISTRESS COMPARISON: Comparison chest 11/17/2017 FINDINGS: Note that the lung apices are partially obscured by overlying facial soft tissue and mandibular artifact LUNGS: Inspiration poor inspiration with low lung volumes and crowded bronchovascular markings. Pulmonary vascular congestive changes with bilateral lower lobe alveolar-type infiltrates and bilateral effusions right larger than left. PLEURA: No pneumothorax or pleural fluid seen. CARDIOVASCULAR: Cardiac silhouette unchanged. Sternotomy wires again noted. Also again seen is recently placed bipolar pacemaker OSSEOUS STRUCTURES: No significant abnormalities. VISUALIZED UPPER ABDOMEN: Normal. OTHER FINDINGS: None. IMPRESSION: Inspiration poor inspiration with low lung volumes and crowded bronchovascular markings. Pulmonary vascular congestive changes with bilateral lower lobe alveolar-type infiltrates and bilateral effusions right larger than left.
--- NOTE | 2017-11-25 11:07 | RAD ---
PROCEDURE: CHEST RADIOGRAPH, 1 VIEW HISTORY: Follow-up COMPARISON: Comparison chest 11/24/2017 FINDINGS: LUNGS: There is complete opacification of the right yaneli thorax likely due to some combination of the right-sided effusion at atelectasis and/or infiltrate inlikely due to atelectasis. . Rule out mucous plugging. Mild left basilar atelectasis. Improved pulmonary vascular congestion left lung. PLEURA: No pneumothorax or pleural fluid seen. CARDIOVASCULAR: Heart size is difficult to assess due to silhouetting right cardiac border though is presumably unchanged. Sternotomy wires again noted is well. Recently placed bipolar pacemaker again noted unchanged OSSEOUS STRUCTURES: No significant abnormalities. VISUALIZED UPPER ABDOMEN: Normal. OTHER FINDINGS: None. IMPRESSION: There is complete opacification of the right yaneli thorax likely due to some combination of the right-sided effusion at atelectasis and/or infiltrate inlikely due to atelectasis. . Rule out mucous plugging. Mild left basilar atelectasis. Improved pulmonary vascular congestion left lung.
--- NOTE | 2017-11-25 11:55 | CP.CCUPN ---
CCU Subjective - Physician Review Events Since Last Encounter (Free Text): 11/25/17 11:53 seen and examined in the intensive care unit. Previous events noted. 67-year-old male with end-stage renal disease on hemodialysis was transferred to ICU for hypercapnic respiratory failure and change in mental status patient was placed on BiPAP. Patient had hemodialysis done yesterday Patient is now alert oriented 3, denies shortness of breath, denies chest pain , complaining of cough Chest x-ray consistent with right lung collapse but patient saturating 100% on 2 L nasal cannula CCU Objective - Vital Signs / Intake & Output Vital Signs (Last 4 hours): Vital Signs Temp Pulse Resp BP Pulse Ox 11/25/17 09:09 80 18 134/38 L 100 11/25/17 09:00 80 8 L 100 11/25/17 08:19 80 12 114/47 L 99 11/25/17 08:00 97.3 F L 80 18 100 Intake and Output (Last 8hrs): Intake & Output 11/24/17 11/25/17 11/25/17 22:59 06:59 14:59 Intake Total 200 60 Output Total 0 0 Balance 200 60 Weight 207 lb 206 lb 12.8 oz Intake: Intake, IV Amount 200 0 Right Forearm 200 0 Oral 60 Output: Urine 0 0 Urine, Voided 0 0 Emesis 0 Other: # Bowel Movements 0 - Physical Exam Head: Positive for: Atraumatic, Normocephalic Mouth: Positive for: Moist Mucous Membranes Neck: Positive for: Normal Range of Motion Respiratory/Chest: Positive for: Decreased Breath Sounds Cardiovascular: Positive for: Regular Rate and Rhythm Abdomen: Positive for: Normal Bowel Sounds Lower Extremity: Positive for: Edema Skin: Positive for: Warm Psychiatric: Positive for: Alert, Oriented x 3 - Medications Active Medications: Active Medications Generic Name Dose Route Start Last Admin Trade Name Freq PRN Reason Stop Dose Admin Acetylcysteine 4 ml 11/25/17 10:00 Acetylcysteine 20% INH RQ6 BELL Albuterol/Ipratropium 3 ml 11/25/17 02:00 11/25/17 02:00 Duoneb 3 Mg/0.5 Mg (3 Ml) Ud INH Not Given RQ6 BELL Heparin Sodium (Porcine) 5,000 units 11/24/17 23:30 11/25/17 05:19 Heparin SC 5,000 units Q8 BELL Administration Ciprofloxacin 400 mg in 200 mls @ 133 mls/hr 11/25/17 10:45 11/25/17 10:16 Cipro 400mg/200ml Dsw IVPB 133 mls/hr Q12H BELL Administration Protocol Methylprednisolone 40 mg 11/25/17 06:00 11/25/17 05:19 Solu-Medrol IV 40 mg Q8 BELL Administration Pantoprazole Sodium 20 mg 11/25/17 10:45 Protonix Ec Tab PO DAILY BELL - Patient Studies Lab Studies: Lab Studies 11/25/17 11/25/17 11/25/17 Range/Units 06:35 06:24 06:21 WBC 6.0 (4.8-10.8) K/uL RBC 2.76 L (4.40-5.90) Mil/uL Hgb 9.1 L (12.0-18.0) g/dL Hct 28.3 L (35.0-51.0) % MCV 102.2 H (80.0-94.0) fL MCH 32.8 H (27.0-31.0) pg MCHC 32.1 L (33.0-37.0) g/dL RDW 19.6 H (11.5-14.5) % Plt Count 139 (130-400) K/uL MPV 8.6 (7.2-11.7) fL Neut % (Auto) 94.0 H (50.0-75.0) % Lymph % (Auto) 4.6 L (20.0-40.0) % [place] % (Auto) 1.1 (0.0-10.0) % Eos % (Auto) 0.1 (0.0-4.0) % Baso % (Auto) 0.2 (0.0-2.0) % Neut # (Auto) 5.6 (1.8-7.0) K/uL Lymph # (Auto) 0.3 L (1.0-4.3) K/uL [place] # (Auto) 0.1 (0.0-0.8) K/uL Eos # (Auto) 0.0 (0.0-0.7) K/uL Baso # (Auto) 0.0 (0.0-0.2) K/uL Neutrophils % (Manual) 89 H (50-75) % Band Neutrophils % 1 (0-2) % Lymphocytes % (Manual) 8 L (20-40) % Monocytes % (Manual) 2 (0-10) % Eosinophils % (Manual) (0-4) % Platelet Estimate Normal (NORMAL) Polychromasia Slight Hypochromasia (manual) Slight Poikilocytosis (manual Basophilic Stippling Slight Anisocytosis (manual) Moderate Macrocytosis (manual) Slight PT (9.7-12.2) SECONDS INR APTT (21-34) SECONDS Puncture Site Rb pCO2 75 H* (35-45) mm/Hg pO2 48 L (80-100) mm/Hg HCO3 31.4 H (21-28) mmol/L ABG pH 7.30 L (7.35-7.45) ABG Total CO2 39.2 H (22-28) mmol/L ABG O2 Saturation 89.7 L (95-98) % ABG Base Excess 8.6 H (-2.0-3.0) mmol/L ABG Hemoglobin 9.8 L (11.7-17.4) g/dL ABG Carboxyhemoglobin 2.5 H (0.5-1.5) % POC ABG HHb (Measured) 10.0 H (0.0-5.0) % ABG Methemoglobin 0.7 (0.0-3.0) % Esvin Test Na VBG pH (7.32-7.43) VBG pCO2 (40-60) mmHg VBG HCO3 mmol/L VBG Total CO2 (22-28) mmol/L VBG O2 Sat (Calc) (40-65) % VBG Base Excess (0.0-2.0) mmol/L VBG Potassium (3.6-5.2) mmol/L A-a O2 Difference 108.0 mm/Hg Respiratory Index 2.3 Hgb O2 Saturation 86.8 L (95.0-98.0) % Sodium 140 (132-148) mmol/l Chloride 95 L (98-107) mmol/L Glucose (75-110) mg/dl Lactate (0.7-2.1) mmol/L Liter Flow Vent Mode Bipap FiO2 35.0 % Inspiratory BiPAP 12 Expiratory BiPAP 6 Crit Value Called To Asya foster/rn Crit Value Called By Jeremy greenwood/rt Crit Value Read Back Y Blood Gas Notified Time 645 Potassium 4.8 (3.6-5.2) mmol/L Carbon Dioxide 34 H (22-30) mmol/L Anion Gap 15 (10-20) BUN 17 (9-20) mg/dL Creatinine 2.6 H (0.8-1.5) mg/dL Est GFR ( Amer) 30 Est GFR (Non-Af Amer) 25 POC Glucose (mg/dL) (65-110) mg/dL Random Glucose 118 H (75-110) mg/dL Calcium 8.3 L (8.6-10.4) mg/dl Total Bilirubin 0.7 (0.2-1.3) mg/dL AST 32 (17-59) U/L ALT 20 L D (21-72) U/L Alkaline Phosphatase 116 (38-126) U/L Troponin I (0.00-0.120) ng/mL NT-Pro-B Natriuret Pep (0-900) pg/mL Total Protein 6.4 (6.3-8.3) g/dL Albumin 3.0 L (3.5-5.0) g/dL Globulin 3.5 (2.2-3.9) gm/dL Albumin/Globulin Ratio 0.9 L (1.0-2.1) Venous Blood Potassium (3.6-5.2) mmol/L 11/24/17 11/24/17 11/24/17 Range/Units 21:17 18:03 18:03 WBC (4.8-10.8) K/uL RBC (4.40-5.90) Mil/uL Hgb (12.0-18.0) g/dL Hct (35.0-51.0) % MCV (80.0-94.0) fL MCH (27.0-31.0) pg MCHC (33.0-37.0) g/dL RDW (11.5-14.5) % Plt Count (130-400) K/uL MPV (7.2-11.7) fL Neut % (Auto) (50.0-75.0) % Lymph % (Auto) (20.0-40.0) % [place] % (Auto) (0.0-10.0) % Eos % (Auto) (0.0-4.0) % Baso % (Auto) (0.0-2.0) % Neut # (Auto) (1.8-7.0) K/uL Lymph # (Auto) (1.0-4.3) K/uL [place] # (Auto) (0.0-0.8) K/uL Eos # (Auto) (0.0-0.7) K/uL Baso # (Auto) (0.0-0.2) K/uL Neutrophils % (Manual) (50-75) % Band Neutrophils % (0-2) % Lymphocytes % (Manual) (20-40) % Monocytes % (Manual) (0-10) % Eosinophils % (Manual) (0-4) % Platelet Estimate (NORMAL) Polychromasia Hypochromasia (manual) Poikilocytosis (manual Basophilic Stippling Anisocytosis (manual) Macrocytosis (manual) PT 11.2 (9.7-12.2) SECONDS INR 1.0 APTT 38 H (21-34) SECONDS Puncture Site DrAdeola/n/a pCO2 94 H* (35-45) mm/Hg pO2 98 (80-100) mm/Hg HCO3 32.8 H (21-28) mmol/L ABG pH 7.24 L (7.35-7.45) ABG Total CO2 43.2 H (22-28) mmol/L ABG O2 Saturation 98.0 (95-98) % ABG Base Excess 10.1 H (-2.0-3.0) mmol/L ABG Hemoglobin 10.5 L (11.7-17.4) g/dL ABG Carboxyhemoglobin 2.3 H (0.5-1.5) % POC ABG HHb (Measured) 1.9 (0.0-5.0) % ABG Methemoglobin 1.0 (0.0-3.0) % Esvin Test n/a VBG pH (7.32-7.43) VBG pCO2 (40-60) mmHg VBG HCO3 mmol/L VBG Total CO2 (22-28) mmol/L VBG O2 Sat (Calc) (40-65) % VBG Base Excess (0.0-2.0) mmol/L VBG Potassium (3.6-5.2) mmol/L A-a O2 Difference 498.0 mm/Hg Respiratory Index 5.1 Hgb O2 Saturation 94.8 L (95.0-98.0) % Sodium 140 (132-148) mmol/l Chloride 93 L (98-107) mmol/L Glucose (75-110) mg/dl Lactate (0.7-2.1) mmol/L Liter Flow 40.0 Vent Mode FiO2 100.0 % Inspiratory BiPAP Expiratory BiPAP Crit Value Called To Dr fall Crit Value Called By Ga/rt Crit Value Read Back Y Blood Gas Notified Time 2120 Potassium 3.9 (3.6-5.2) mmol/L Carbon Dioxide 39 H (22-30) mmol/L Anion Gap 12 (10-20) BUN 12 (9-20) mg/dL Creatinine 2.3 H (0.8-1.5) mg/dL Est GFR ( Amer) 35 Est GFR (Non-Af Amer) 29 POC Glucose (mg/dL) (65-110) mg/dL Random Glucose 129 H (75-110) mg/dL Calcium 8.1 L (8.6-10.4) mg/dl Total Bilirubin 0.6 (0.2-1.3) mg/dL AST 20 (17-59) U/L ALT 15 L D (21-72) U/L Alkaline Phosphatase 132 H (38-126) U/L Troponin I 0.0840 (0.00-0.120) ng/mL NT-Pro-B Natriuret Pep 38406 H (0-900) pg/mL Total Protein 6.7 (6.3-8.3) g/dL Albumin 3.2 L (3.5-5.0) g/dL Globulin 3.6 (2.2-3.9) gm/dL Albumin/Globulin Ratio 0.9 L (1.0-2.1) Venous Blood Potassium (3.6-5.2) mmol/L 11/24/17 11/24/17 11/24/17 Range/Units 18:03 17:58 17:34 WBC 10.1 D (4.8-10.8) K/uL RBC 2.91 L (4.40-5.90) Mil/uL Hgb 9.5 L (12.0-18.0) g/dL Hct 29.4 L (35.0-51.0) % MCV 101.3 H (80.0-94.0) fL MCH 32.7 H (27.0-31.0) pg MCHC 32.3 L (33.0-37.0) g/dL RDW 19.8 H (11.5-14.5) % Plt Count 164 (130-400) K/uL MPV 7.3 (7.2-11.7) fL Neut % (Auto) 76.4 H (50.0-75.0) % Lymph % (Auto) 5.2 L (20.0-40.0) % [place] % (Auto) 10.9 H (0.0-10.0) % Eos % (Auto) 6.1 H (0.0-4.0) % Baso % (Auto) 1.4 (0.0-2.0) % Neut # (Auto) 7.7 H (1.8-7.0) K/uL Lymph # (Auto) 0.5 L (1.0-4.3) K/uL [place] # (Auto) 1.1 H (0.0-0.8) K/uL Eos # (Auto) 0.6 (0.0-0.7) K/uL Baso # (Auto) 0.1 (0.0-0.2) K/uL Neutrophils % (Manual) 76 H (50-75) % Band Neutrophils % 1 (0-2) % Lymphocytes % (Manual) 5 L (20-40) % Monocytes % (Manual) 11 H (0-10) % Eosinophils % (Manual) 7 H (0-4) % Platelet Estimate Normal (NORMAL) Polychromasia Hypochromasia (manual) Poikilocytosis (manual Slight Basophilic Stippling Anisocytosis (manual) Slight Macrocytosis (manual) Slight PT (9.7-12.2) SECONDS INR APTT (21-34) SECONDS Puncture Site pCO2 (35-45) mm/Hg pO2 40 (80-100) mm/Hg HCO3 (21-28) mmol/L ABG pH (7.35-7.45) ABG Total CO2 (22-28) mmol/L ABG O2 Saturation (95-98) % ABG Base Excess (-2.0-3.0) mmol/L ABG Hemoglobin (11.7-17.4) g/dL ABG Carboxyhemoglobin (0.5-1.5) % POC ABG HHb (Measured) (0.0-5.0) % ABG Methemoglobin (0.0-3.0) % Esvin Test VBG pH 7.19 L* (7.32-7.43) VBG pCO2 109 H* (40-60) mmHg VBG HCO3 31.0 mmol/L VBG Total CO2 44.9 H (22-28) mmol/L VBG O2 Sat (Calc) 79.9 H (40-65) % VBG Base Excess 9.0 H (0.0-2.0) mmol/L VBG Potassium 3.6 (3.6-5.2) mmol/L A-a O2 Difference mm/Hg Respiratory Index Hgb O2 Saturation (95.0-98.0) % Sodium 139.0 (132-148) mmol/l Chloride 99.0 (98-107) mmol/L Glucose 135 H (75-110) mg/dl Lactate 0.8 (0.7-2.1) mmol/L Liter Flow Vent Mode FiO2 % Inspiratory BiPAP Expiratory BiPAP Crit Value Called To Crit Value Called By Crit Value Read Back Blood Gas Notified Time Potassium (3.6-5.2) mmol/L Carbon Dioxide (22-30) mmol/L Anion Gap (10-20) BUN (9-20) mg/dL Creatinine (0.8-1.5) mg/dL Est GFR ( Amer) Est GFR (Non-Af Amer) POC Glucose (mg/dL) 133 H (65-110) mg/dL Random Glucose (75-110) mg/dL Calcium (8.6-10.4) mg/dl Total Bilirubin (0.2-1.3) mg/dL AST (17-59) U/L ALT (21-72) U/L Alkaline Phosphatase (38-126) U/L Troponin I (0.00-0.120) ng/mL NT-Pro-B Natriuret Pep (0-900) pg/mL Total Protein (6.3-8.3) g/dL Albumin (3.5-5.0) g/dL Globulin (2.2-3.9) gm/dL Albumin/Globulin Ratio (1.0-2.1) Venous Blood Potassium 3.6 (3.6-5.2) mmol/L 11/24/17 Range/Units 00:01 WBC (4.8-10.8) K/uL RBC (4.40-5.90) Mil/uL Hgb (12.0-18.0) g/dL Hct (35.0-51.0) % MCV (80.0-94.0) fL MCH (27.0-31.0) pg MCHC (33.0-37.0) g/dL RDW (11.5-14.5) % Plt Count (130-400) K/uL MPV (7.2-11.7) fL Neut % (Auto) (50.0-75.0) % Lymph % (Auto) (20.0-40.0) % [place] % (Auto) (0.0-10.0) % Eos % (Auto) (0.0-4.0) % Baso % (Auto) (0.0-2.0) % Neut # (Auto) (1.8-7.0) K/uL Lymph # (Auto) (1.0-4.3) K/uL [place] # (Auto) (0.0-0.8) K/uL Eos # (Auto) (0.0-0.7) K/uL Baso # (Auto) (0.0-0.2) K/uL Neutrophils % (Manual) (50-75) % Band Neutrophils % (0-2) % Lymphocytes % (Manual) (20-40) % Monocytes % (Manual) (0-10) % Eosinophils % (Manual) (0-4) % Platelet Estimate (NORMAL) Polychromasia Hypochromasia (manual) Poikilocytosis (manual Basophilic Stippling Anisocytosis (manual) Macrocytosis (manual) PT (9.7-12.2) SECONDS INR APTT (21-34) SECONDS Puncture Site B pCO2 85 H* (35-45) mm/Hg pO2 59 L (80-100) mm/Hg HCO3 31.3 H (21-28) mmol/L ABG pH 7.27 L (7.35-7.45) ABG Total CO2 41.6 H (22-28) mmol/L ABG O2 Saturation (95-98) % ABG Base Excess 8.6 H (-2.0-3.0) mmol/L ABG Hemoglobin (11.7-17.4) g/dL ABG Carboxyhemoglobin (0.5-1.5) % POC ABG HHb (Measured) (0.0-5.0) % ABG Methemoglobin (0.0-3.0) % Esvin Test Na VBG pH (7.32-7.43) VBG pCO2 (40-60) mmHg VBG HCO3 mmol/L VBG Total CO2 (22-28) mmol/L VBG O2 Sat (Calc) (40-65) % VBG Base Excess (0.0-2.0) mmol/L VBG Potassium (3.6-5.2) mmol/L A-a O2 Difference 191.0 mm/Hg Respiratory Index 3.2 Hgb O2 Saturation (95.0-98.0) % Sodium (132-148) mmol/l Chloride (98-107) mmol/L Glucose (75-110) mg/dl Lactate (0.7-2.1) mmol/L Liter Flow Vent Mode Bipap FiO2 50.0 % Inspiratory BiPAP 12 Expiratory BiPAP 6 Crit Value Called To Jamari merchant/rn Crit Value Called By Jeremy greenwood/rt Crit Value Read Back Y Blood Gas Notified Time 15 Potassium (3.6-5.2) mmol/L Carbon Dioxide (22-30) mmol/L Anion Gap (10-20) BUN (9-20) mg/dL Creatinine (0.8-1.5) mg/dL Est GFR ( Amer) Est GFR (Non-Af Amer) POC Glucose (mg/dL) (65-110) mg/dL Random Glucose (75-110) mg/dL Calcium (8.6-10.4) mg/dl Total Bilirubin (0.2-1.3) mg/dL AST (17-59) U/L ALT (21-72) U/L Alkaline Phosphatase (38-126) U/L Troponin I (0.00-0.120) ng/mL NT-Pro-B Natriuret Pep (0-900) pg/mL Total Protein (6.3-8.3) g/dL Albumin (3.5-5.0) g/dL Globulin (2.2-3.9) gm/dL Albumin/Globulin Ratio (1.0-2.1) Venous Blood Potassium (3.6-5.2) mmol/L Laboratory Results - last 24 hr 11/24/17 11/24/17 11/24/17 00:01 17:34 17:58 WBC RBC Hgb Hct MCV MCH MCHC RDW Plt Count MPV Neut % (Auto) Lymph % (Auto) [place] % (Auto) Eos % (Auto) Baso % (Auto) Neut # (Auto) Lymph # (Auto) [place] # (Auto) Eos # (Auto) Baso # (Auto) Neutrophils % (Manual) Band Neutrophils % Lymphocytes % (Manual) Monocytes % (Manual) Eosinophils % (Manual) Platelet Estimate Polychromasia Hypochromasia (manual) Poikilocytosis (manual Basophilic Stippling Anisocytosis (manual) Macrocytosis (manual) PT INR APTT Puncture Site B pCO2 85 H* pO2 59 L 40 HCO3 31.3 H ABG pH 7.27 L ABG Total CO2 41.6 H ABG O2 Saturation ABG Base Excess 8.6 H ABG Hemoglobin ABG Carboxyhemoglobin POC ABG HHb (Measured) ABG Methemoglobin Esvin Test Na VBG pH 7.19 L* VBG pCO2 109 H* VBG HCO3 31.0 VBG Total CO2 44.9 H VBG O2 Sat (Calc) 79.9 H VBG Base Excess 9.0 H VBG Potassium 3.6 A-a O2 Difference 191.0 Respiratory Index 3.2 Hgb O2 Saturation Sodium 139.0 Chloride 99.0 Glucose 135 H Lactate 0.8 Liter Flow Vent Mode Bipap FiO2 50.0 Inspiratory BiPAP 12 Expiratory BiPAP 6 Crit Value Called To Jamari merchant/rn Crit Value Called By Jeremy greenwood/rt Crit Value Read Back Y Blood Gas Notified Time 15 Potassium Carbon Dioxide Anion Gap BUN Creatinine Est GFR ( Amer) Est GFR (Non-Af Amer) POC Glucose (mg/dL) 133 H Random Glucose Calcium Total Bilirubin AST ALT Alkaline Phosphatase Troponin I NT-Pro-B Natriuret Pep Total Protein Albumin Globulin Albumin/Globulin Ratio Venous Blood Potassium 3.6 11/24/17 11/24/17 11/24/17 18:03 18:03 18:03 WBC 10.1 D RBC 2.91 L Hgb 9.5 L Hct 29.4 L MCV 101.3 H MCH 32.7 H MCHC 32.3 L RDW 19.8 H Plt Count 164 MPV 7.3 Neut % (Auto) 76.4 H Lymph % (Auto) 5.2 L [place] % (Auto) 10.9 H Eos % (Auto) 6.1 H Baso % (Auto) 1.4 Neut # (Auto) 7.7 H Lymph # (Auto) 0.5 L [place] # (Auto) 1.1 H Eos # (Auto) 0.6 Baso # (Auto) 0.1 Neutrophils % (Manual) 76 H Band Neutrophils % 1 Lymphocytes % (Manual) 5 L Monocytes % (Manual) 11 H Eosinophils % (Manual) 7 H Platelet Estimate Normal Polychromasia Hypochromasia (manual) Poikilocytosis (manual Slight Basophilic Stippling Anisocytosis (manual) Slight Macrocytosis (manual) Slight PT 11.2 INR 1.0 APTT 38 H Puncture Site pCO2 pO2 HCO3 ABG pH ABG Total CO2 ABG O2 Saturation ABG Base Excess ABG Hemoglobin ABG Carboxyhemoglobin POC ABG HHb (Measured) ABG Methemoglobin Esvin Test VBG pH VBG pCO2 VBG HCO3 VBG Total CO2 VBG O2 Sat (Calc) VBG Base Excess VBG Potassium A-a O2 Difference Respiratory Index Hgb O2 Saturation Sodium 140 Chloride 93 L Glucose Lactate Liter Flow Vent Mode FiO2 Inspiratory BiPAP Expiratory BiPAP Crit Value Called To Crit Value Called By Crit Value Read Back Blood Gas Notified Time Potassium 3.9 Carbon Dioxide 39 H Anion Gap 12 BUN 12 Creatinine 2.3 H Est GFR ( Amer) 35 Est GFR (Non-Af Amer) 29 POC Glucose (mg/dL) Random Glucose 129 H Calcium 8.1 L Total Bilirubin 0.6 AST 20 ALT 15 L D Alkaline Phosphatase 132 H Troponin I 0.0840 NT-Pro-B Natriuret Pep 06178 H Total Protein 6.7 Albumin 3.2 L Globulin 3.6 Albumin/Globulin Ratio 0.9 L Venous Blood Potassium 11/24/17 11/25/17 11/25/17 21:17 06:21 06:24 WBC 6.0 RBC 2.76 L Hgb 9.1 L Hct 28.3 L MCV 102.2 H MCH 32.8 H MCHC 32.1 L RDW 19.6 H Plt Count 139 MPV 8.6 Neut % (Auto) 94.0 H Lymph % (Auto) 4.6 L [place] % (Auto) 1.1 Eos % (Auto) 0.1 Baso % (Auto) 0.2 Neut # (Auto) 5.6 Lymph # (Auto) 0.3 L [place] # (Auto) 0.1 Eos # (Auto) 0.0 Baso # (Auto) 0.0 Neutrophils % (Manual) 89 H Band Neutrophils % 1 Lymphocytes % (Manual) 8 L Monocytes % (Manual) 2 Eosinophils % (Manual) Platelet Estimate Normal Polychromasia Slight Hypochromasia (manual) Slight Poikilocytosis (manual Basophilic Stippling Slight Anisocytosis (manual) Moderate Macrocytosis (manual) Slight PT INR APTT Puncture Site Dr./n/a pCO2 94 H* pO2 98 HCO3 32.8 H ABG pH 7.24 L ABG Total CO2 43.2 H ABG O2 Saturation 98.0 ABG Base Excess 10.1 H ABG Hemoglobin 10.5 L ABG Carboxyhemoglobin 2.3 H POC ABG HHb (Measured) 1.9 ABG Methemoglobin 1.0 Esvin Test n/a VBG pH VBG pCO2 VBG HCO3 VBG Total CO2 VBG O2 Sat (Calc) VBG Base Excess VBG Potassium A-a O2 Difference 498.0 Respiratory Index 5.1 Hgb O2 Saturation 94.8 L Sodium 140 Chloride 95 L Glucose Lactate Liter Flow 40.0 Vent Mode FiO2 100.0 Inspiratory BiPAP Expiratory BiPAP Crit Value Called To Dr fall Crit Value Called By Ga/rt Crit Value Read Back Y Blood Gas Notified Time 2120 Potassium 4.8 Carbon Dioxide 34 H Anion Gap 15 BUN 17 Creatinine 2.6 H Est GFR ( Amer) 30 Est GFR (Non-Af Amer) 25 POC Glucose (mg/dL) Random Glucose 118 H Calcium 8.3 L Total Bilirubin 0.7 AST 32 ALT 20 L D Alkaline Phosphatase 116 Troponin I NT-Pro-B Natriuret Pep Total Protein 6.4 Albumin 3.0 L Globulin 3.5 Albumin/Globulin Ratio 0.9 L Venous Blood Potassium 05/06/18 06:35 WBC RBC Hgb Hct MCV MCH MCHC RDW Plt Count MPV Neut % (Auto) Lymph % (Auto) [place] % (Auto) Eos % (Auto) Baso % (Auto) Neut # (Auto) Lymph # (Auto) [place] # (Auto) Eos # (Auto) Baso # (Auto) Neutrophils % (Manual) Band Neutrophils % Lymphocytes % (Manual) Monocytes % (Manual) Eosinophils % (Manual) Platelet Estimate Polychromasia Hypochromasia (manual) Poikilocytosis (manual Basophilic Stippling Anisocytosis (manual) Macrocytosis (manual) PT INR APTT Puncture Site Rb pCO2 75 H* pO2 48 L HCO3 31.4 H ABG pH 7.30 L ABG Total CO2 39.2 H ABG O2 Saturation 89.7 L ABG Base Excess 8.6 H ABG Hemoglobin 9.8 L ABG Carboxyhemoglobin 2.5 H POC ABG HHb (Measured) 10.0 H ABG Methemoglobin 0.7 Esvin Test Na VBG pH VBG pCO2 VBG HCO3 VBG Total CO2 VBG O2 Sat (Calc) VBG Base Excess VBG Potassium A-a O2 Difference 108.0 Respiratory Index 2.3 Hgb O2 Saturation 86.8 L Sodium Chloride Glucose Lactate Liter Flow Vent Mode Bipap FiO2 35.0 Inspiratory BiPAP 12 Expiratory BiPAP 6 Crit Value Called To Asya foster/rn Crit Value Called By Jeremy greenwood/rt Crit Value Read Back Y Blood Gas Notified Time 645 Potassium Carbon Dioxide Anion Gap BUN Creatinine Est GFR ( Amer) Est GFR (Non-Af Amer) POC Glucose (mg/dL) Random Glucose Calcium Total Bilirubin AST ALT Alkaline Phosphatase Troponin I NT-Pro-B Natriuret Pep Total Protein Albumin Globulin Albumin/Globulin Ratio Venous Blood Potassium EKG/Cardiology Studies: Cardiology / EKG Studies 11/24/17 17:45 ELECTROCARDIOGRAM Stat Comment: Mode Of Transportation: BED Reason For Exam: SOB 11/26/17 23:30 ELECTROCARDIOGRAM DAILY Comment: Mode Of Transportation: PORTABLE Reason For Exam: f/u Fingerstick Blood Sugar Results: 121 Critical Care Progress Note - Ventilator Checklist Head of Bed 30 Degrees: Yes - Nutrition Nutrition: Nutrition Category Date Time Status Consistent Carbohydrate [DIET] Diets 11/26/17 Lunch Active Renal Diet [DIET] Diets 11/25/17 Lunch Active Assessment/Plan (1) Hypercapnic respiratory failure Current Visit: Yes Status: Acute Comment: right lung collapse Mucomyst, nebulizer treatment and chest PT. If no change will consider bronchoscopy Continue BiPAP as needed Hemodialysis GI prophylaxis (2) ESRD (end stage renal disease) on dialysis Current Visit: Yes Status: Chronic (3) CAD (coronary artery disease) of artery bypass graft Current Visit: No Status: Acute (4) COPD (chronic obstructive pulmonary disease) Current Visit: No Status: Acute
[2017-11-25] MEDS: Acetylcysteine 20% Inhal Soln (4ml) INH SCH ×4 (12:25→19:37)
[2017-11-25] MEDS: Pantoprazole 20 mg EC Tab PO SCH (13:25)
--- NOTE | 2017-11-25 14:11 | CP.PCM.CON ---
History of Present Illness - History of Present Illness History of Present Illness: patient was found unresponsive in bed in care home. S/P full HD as per care home this afternoon. S/P BIPAP en route with no improved alertness, perfusion. Patient has prior recent admission fir bradycardia and hypertension. Patient has PMHx of quadruple bypass, COPD, sleep apnea, ESERD on HD., CVA affecting left, HTN, and DM. Patient's PSH of CABG (quardruple bypass 2006), endoscopy, pacemaker. LIMITED DUE TO CLIN COND PER EMS, PT FOUND UNRESPONSIVE IN BED IN NH. S/P FULL HD PER NH THIS AFTERNOON. S/P BIPAP EN ROUTE NO IMPROVED ALERTNESS, PERFUSION. SP RECENT ADMISSION FOR BRADYCARDIA AND HYPOTENSION. PMHx of Quadruple bypass, COPD, Sleep apnea, ESRD on HD PMHx: COPD, sleep apnea, ESRD on HD. CVA affecting left, HTN, DM PSH: CABG (quadruple bypass 2006), Endoscopy, pacemaker Review of Systems - Review of Systems All systems: reviewed and no additional remarkable complaints except - Constitutional Constitutional: As Per HPI - EENT Eyes: absent: As Per HPI, Blind Spots, Blurred Vision, Change in Vision, Decreased Night Vision, Diplopia, Discharge, Dry Eye, Exophthalmos, Floaters, Irritation, Itchy Eyes, Loss of Peripheral Vision, Pain, Photophobia, Requires Corrective Lenses, Sees Flashes, Spots in Vision, Tunnel Vision, Other Visual Disturbances, Loss of Vision, Other Ears: absent: As Per HPI, Decreased Hearing, Ear Discharge, Ear Pain, Tinnitus, Abnormal Hearing, Disequilibrium, Dizziness, Other Nose/Mouth/Throat: absent: As Per HPI, Epistaxis, Nasal Congestion, Nasal Discharge, Nasal Obstruction, Nasal Trauma, Nose Pain, Post Nasal Drip, Sinus Pain, Sinus Pressure, Bleeding Gums, Change in Voice, Dental Pain, Dry Mouth, Dysphagia, Halitosis, Hoarsness, Lip Swelling, Mouth Lesions, Mouth Pain, Odynophagia, Sore Throat, Throat Swelling, Tongue Swelling, Facial Pain, Neck Pain, Neck Mass, Other - Cardiovascular Cardiovascular: As Per HPI - Respiratory Respiratory: As Per HPI, Cough, Dyspnea, Dyspnea on Exertion. absent: Hemoptysis - Gastrointestinal Gastrointestinal: absent: As Per HPI, Abdominal Pain, Belching, Bloating, Change in Bowel Habits, Change in Stool Character, Coffee Ground Emesis, Constipation, Cramping, Diarrhea, Dyspepsia, Dysphagia, Early Satiety, Excessive Flatus, Fecal Incontinence, Heartburn, Hematemesis, Hematochezia, Loose Stools, Melena, Nausea, Odynophagia, Temesmus, Vomiting, Other - Genitourinary Genitourinary: absent: As Per HPI, Change in Urinary Stream, Difficulty Urinating, Dysuria, Flank Pain, Hematuria, Pyuria, Nocturia, Urinary Incontinence, Urinary Frequency, Urinary Hesitance, Urinary Urgency, Voiding Freq/Small Amts, Freq UTI, Hx Renal/Bladder Calculi, Hx /Renal Surgery, Bladder Distension, Other - Musculoskeletal Musculoskeletal: absent: As Per HPI, Abnormal Gait, Arthralgias, Atrophy, Back Pain, Deformity, Joint Swelling, Limited Range of Motion, Loss of Height, Muscle Cramps, Muscle Weakness, Myalgias, Neck Pain, Numbness, Radiating Pain into Limb, Stiffness, Tingling, Other - Integumentary Integumentary: absent: As Per HPI, Acne, Alopecia, Bleeding Lesions, Change in Hair, Change in Nails, Change in Pigmentation, Changing Lesions, Dry Skin, Erythema, Furuncle, Hirsutism, Lesions, New Lesions, Non-Healing Lesions, Photosensitivity, Pruritus, Rash, Skin Pain, Skin Ulcer, Sores, Striae, Swelling , Unusual Bruising, Wounds, Jaundice, Other - Neurological Neurological: As Per HPI - Psychiatric Psychiatric: absent: As Per HPI, Abnormal Sleep Pattern, Anhedonia, Anxiety, Auditory Hallucinations, Behavioral Changes, Change in Appetite, Change in Libido, Confusion, Depression, Difficulty Concentrating, Hallucinations, Homicidal Ideation, Hopelessness, Irritability, Memory Loss, Mood Swings, Panic Attacks, Paranoia, Suicidal Ideation, Visual Hallucinations, Tactile Hallucinations, Other - Endocrine Endocrine: absent: As Per HPI, Change in Body Appearance, Change in Libido, Cold Intolorance, Deepening of Voice, Excessive Sweating, Fatigue, Flushing, Heat Intolorance, Increase in Ring/Shoe/Hat Size, Palpitations, Polydipsia, Polyphagia, Polyuria, Other Past Patient History - Infectious Disease Hx of Infectious Diseases: None - Past Medical History & Family History Past Medical History?: Yes - Past Social History Smoking Status: Never Smoked - CARDIAC Hx Congestive Heart Failure: Yes Hx Hypertension: Yes Hx Pacemaker: Yes Hx Peripheral Edema: Yes - PULMONARY Hx Asthma: Yes Hx Chronic Obstructive Pulmonary Disease (COPD): Yes Hx Sleep Apnea: Yes - NEUROLOGICAL Hx Neurological Disorder: Yes (SEE COMMENT) HX Cerebrovascular Accident: Yes (non ambulatory) Other/Comment: DYSPHAGIA. SLEEP APNEA - HEENT Hx HEENT Problems: Yes Hx Cataracts: Yes - RENAL Hx Chronic Kidney Disease: Yes Hx Dialysis: Yes Type of Dialysis Access: Left arm AVS Date of Last Dialysis Treatment: 11/24/17 Hx Renal Failure: Yes - ENDOCRINE/METABOLIC Hx Endocrine Disorders: Yes Hx Diabetes Mellitus Type 2: Yes - HEMATOLOGICAL/ONCOLOGICAL Hx Anemia: Yes - INTEGUMENTARY Hx Dermatological Problems: Yes Other/Comment: healed sacral ulcer - MUSCULOSKELETAL/RHEUMATOLOGICAL Hx Musculoskeletal Disorders: Yes Hx Falls: Yes Hx Unsteady Gait: Yes Other/Comment: HX: MUSCLE WEAKNESS(GENERALIZED), Left sided body weakness due to CVA - GASTROINTESTINAL Hx Gastrointestinal Disorders: Yes Other/Comment: HX: DYSPHAGIA,UNSPECIFIED - GENITOURINARY/GYNECOLOGICAL Hx Genitourinary Disorders: No - PSYCHIATRIC Hx Depression: Yes ('MAJOR DEPRESSIVE DISORDER,SINGLE EPISODE,UNSPECIFIED") Hx Substance Use: No - SURGICAL HISTORY Hx Coronary Artery Bypass Graft: Yes - ANESTHESIA Hx Anesthesia: Yes Hx Anesthesia Reactions: No Hx Malignant Hyperthermia: No Meds Allergies/Adverse Reactions: Allergies Allergy/AdvReac Type Severity Reaction Status Date / Time iodine Allergy Intermediate RASH Verified 09/25/17 21:16 aspirin Allergy unknown Verified 11/24/17 17:31 clopidogrel [From Plavix] Allergy SHORTNESS Verified 11/24/17 17:31 OF BREATH clopidogrel bisulfate Allergy UNKNOWN Verified 11/24/17 17:31 [From Plavix] Opioids - Morphine Analogues Allergy hypercapnic Verified 11/24/17 17:31 respiratory failure penicillin G Allergy SHORTNESS Verified 11/24/17 17:31 OF BREATH Penicillins Allergy UNKNOWN Verified 11/24/17 17:31 zolpidem [From Ambien] Allergy hypercapnic Verified 11/24/17 17:31 respiratory failure IV DYE Allergy unknown Uncoded 11/24/17 17:31 - Medications Medications: Current Medications Acetylcysteine (Acetylcysteine 20%) 4 ml INH RQ6 [facility] Last Admin: 11/25/17 12:25 Dose: 4 ml Albuterol/Ipratropium (Duoneb 3 Mg/0.5 Mg (3 Ml) Ud) 3 ml INH RQ6 [facility] Last Admin: 11/25/17 08:00 Dose: 3 ml Heparin Sodium (Porcine) (Heparin) 5,000 units SC Q8 [facility] Last Admin: 11/25/17 13:32 Dose: Not Given Ciprofloxacin (Cipro 400mg/200ml Dsw) 400 mg in 200 mls @ 133 mls/hr IVPB Q12H [facility] PRN Reason: Protocol Last Admin: 11/25/17 10:16 Dose: 133 mls/hr Methylprednisolone (Solu-Medrol) 40 mg IV Q8 [facility] Last Admin: 11/25/17 13:24 Dose: 40 mg Pantoprazole Sodium (Protonix Ec Tab) 20 mg PO DAILY [facility] Last Admin: 11/25/17 13:25 Dose: 20 mg Physical Exam - Constitutional Appears: In Acute Distress - Head Exam Head Exam: NORMOCEPHALIC - Eye Exam Eye Exam: PERRL. absent: Scleral icterus - ENT Exam ENT Exam: Mucous Membranes Dry, Normal Oropharynx - Neck Exam Neck exam: Negative for: Lymphadenopathy - Respiratory Exam Respiratory Exam: Decreased Breath Sounds, Prolonged Expiratory Phase, Rales, Rhonchi, Respiratory Distress - Cardiovascular Exam Cardiovascular Exam: Tachycardia, REGULAR RHYTHM, +S1, +S2 - GI/Abdominal Exam GI & Abdominal Exam: Diminished Bowel Sounds, Soft. absent: Rebound, Rigid, Tenderness - Rectal Exam Rectal Exam: Deferred - Exam Exam: NORMAL INSPECTION - Extremities Exam Extremities exam: Positive for: pedal edema, pedal pulses present. Negative for : calf tenderness, tenderness - Back Exam Back exam: absent: CVA tenderness (L), CVA tenderness (R), paraspinal tenderness - Neurological Exam Neurological exam: Alert, CN II-XII Intact, Motor Sensory Deficit, Oriented x3 Additional comments: oeft weakness - Psychiatric Exam Psychiatric exam: Depressed - Skin Skin Exam: Dry Results - Vital Signs Recent Vital Signs: Last Vital Signs Temp 97.3 F L 11/25/17 08:00 Pulse 80 11/25/17 13:00 Resp 11 L 11/25/17 13:00 BP 120/39 L 11/25/17 12:09 Pulse Ox 97 11/25/17 13:00 - Labs Result Diagrams: 11/27/17 06:05 11/27/17 06:05 Labs: Laboratory Results - last 24 hr 11/24/17 11/24/17 11/24/17 00:01 17:34 17:58 WBC RBC Hgb Hct MCV MCH MCHC RDW Plt Count MPV Neut % (Auto) Lymph % (Auto) Hooker % (Auto) Eos % (Auto) Baso % (Auto) Neut # (Auto) Lymph # (Auto) Hooker # (Auto) Eos # (Auto) Baso # (Auto) Neutrophils % (Manual) Band Neutrophils % Lymphocytes % (Manual) Monocytes % (Manual) Eosinophils % (Manual) Platelet Estimate Polychromasia Hypochromasia (manual) Poikilocytosis (manual Basophilic Stippling Anisocytosis (manual) Macrocytosis (manual) PT INR APTT Puncture Site B pCO2 85 H* pO2 59 L 40 HCO3 31.3 H ABG pH 7.27 L ABG Total CO2 41.6 H ABG O2 Saturation ABG Base Excess 8.6 H ABG Hemoglobin ABG Carboxyhemoglobin POC ABG HHb (Measured) ABG Methemoglobin Esvin Test Na VBG pH 7.19 L* VBG pCO2 109 H* VBG HCO3 31.0 VBG Total CO2 44.9 H VBG O2 Sat (Calc) 79.9 H VBG Base Excess 9.0 H VBG Potassium 3.6 A-a O2 Difference 191.0 Respiratory Index 3.2 Hgb O2 Saturation Sodium 139.0 Chloride 99.0 Glucose 135 H Lactate 0.8 Liter Flow Vent Mode Bipap FiO2 50.0 Inspiratory BiPAP 12 Expiratory BiPAP 6 Crit Value Called To Jamari merchant/rn Crit Value Called By Jeremy greenwood/rt Crit Value Read Back Y Blood Gas Notified Time 15 Potassium Carbon Dioxide Anion Gap BUN Creatinine Est GFR ( Amer) Est GFR (Non-Af Amer) POC Glucose (mg/dL) 133 H Random Glucose Calcium Total Bilirubin AST ALT Alkaline Phosphatase Troponin I NT-Pro-B Natriuret Pep Total Protein Albumin Globulin Albumin/Globulin Ratio Venous Blood Potassium 3.6 11/24/17 11/24/17 11/24/17 18:03 18:03 18:03 WBC 10.1 D RBC 2.91 L Hgb 9.5 L Hct 29.4 L MCV 101.3 H MCH 32.7 H MCHC 32.3 L RDW 19.8 H Plt Count 164 MPV 7.3 Neut % (Auto) 76.4 H Lymph % (Auto) 5.2 L Hooker % (Auto) 10.9 H Eos % (Auto) 6.1 H Baso % (Auto) 1.4 Neut # (Auto) 7.7 H Lymph # (Auto) 0.5 L Hooker # (Auto) 1.1 H Eos # (Auto) 0.6 Baso # (Auto) 0.1 Neutrophils % (Manual) 76 H Band Neutrophils % 1 Lymphocytes % (Manual) 5 L Monocytes % (Manual) 11 H Eosinophils % (Manual) 7 H Platelet Estimate Normal Polychromasia Hypochromasia (manual) Poikilocytosis (manual Slight Basophilic Stippling Anisocytosis (manual) Slight Macrocytosis (manual) Slight PT 11.2 INR 1.0 APTT 38 H Puncture Site pCO2 pO2 HCO3 ABG pH ABG Total CO2 ABG O2 Saturation ABG Base Excess ABG Hemoglobin ABG Carboxyhemoglobin POC ABG HHb (Measured) ABG Methemoglobin Esvin Test VBG pH VBG pCO2 VBG HCO3 VBG Total CO2 VBG O2 Sat (Calc) VBG Base Excess VBG Potassium A-a O2 Difference Respiratory Index Hgb O2 Saturation Sodium 140 Chloride 93 L Glucose Lactate Liter Flow Vent Mode FiO2 Inspiratory BiPAP Expiratory BiPAP Crit Value Called To Crit Value Called By Crit Value Read Back Blood Gas Notified Time Potassium 3.9 Carbon Dioxide 39 H Anion Gap 12 BUN 12 Creatinine 2.3 H Est GFR ( Amer) 35 Est GFR (Non-Af Amer) 29 POC Glucose (mg/dL) Random Glucose 129 H Calcium 8.1 L Total Bilirubin 0.6 AST 20 ALT 15 L D Alkaline Phosphatase 132 H Troponin I 0.0840 NT-Pro-B Natriuret Pep 75752 H Total Protein 6.7 Albumin 3.2 L Globulin 3.6 Albumin/Globulin Ratio 0.9 L Venous Blood Potassium 11/24/17 11/25/17 11/25/17 21:17 06:21 06:24 WBC 6.0 RBC 2.76 L Hgb 9.1 L Hct 28.3 L MCV 102.2 H MCH 32.8 H MCHC 32.1 L RDW 19.6 H Plt Count 139 MPV 8.6 Neut % (Auto) 94.0 H Lymph % (Auto) 4.6 L Hooker % (Auto) 1.1 Eos % (Auto) 0.1 Baso % (Auto) 0.2 Neut # (Auto) 5.6 Lymph # (Auto) 0.3 L Hooker # (Auto) 0.1 Eos # (Auto) 0.0 Baso # (Auto) 0.0 Neutrophils % (Manual) 89 H Band Neutrophils % 1 Lymphocytes % (Manual) 8 L Monocytes % (Manual) 2 Eosinophils % (Manual) Platelet Estimate Normal Polychromasia Slight Hypochromasia (manual) Slight Poikilocytosis (manual Basophilic Stippling Slight Anisocytosis (manual) Moderate Macrocytosis (manual) Slight PT INR APTT Puncture Site Dr./n/a pCO2 94 H* pO2 98 HCO3 32.8 H ABG pH 7.24 L ABG Total CO2 43.2 H ABG O2 Saturation 98.0 ABG Base Excess 10.1 H ABG Hemoglobin 10.5 L ABG Carboxyhemoglobin 2.3 H POC ABG HHb (Measured) 1.9 ABG Methemoglobin 1.0 Esvin Test DrAdeola n/a VBG pH VBG pCO2 VBG HCO3 VBG Total CO2 VBG O2 Sat (Calc) VBG Base Excess VBG Potassium A-a O2 Difference 498.0 Respiratory Index 5.1 Hgb O2 Saturation 94.8 L Sodium 140 Chloride 95 L Glucose Lactate Liter Flow 40.0 Vent Mode FiO2 100.0 Inspiratory BiPAP Expiratory BiPAP Crit Value Called To Dr fall Crit Value Called By Ga/rt Crit Value Read Back Y Blood Gas Notified Time 2120 Potassium 4.8 Carbon Dioxide 34 H Anion Gap 15 BUN 17 Creatinine 2.6 H Est GFR ( Amer) 30 Est GFR (Non-Af Amer) 25 POC Glucose (mg/dL) Random Glucose 118 H Calcium 8.3 L Total Bilirubin 0.7 AST 32 ALT 20 L D Alkaline Phosphatase 116 Troponin I NT-Pro-B Natriuret Pep Total Protein 6.4 Albumin 3.0 L Globulin 3.5 Albumin/Globulin Ratio 0.9 L Venous Blood Potassium 11/25/17 06:35 WBC RBC Hgb Hct MCV MCH MCHC RDW Plt Count MPV Neut % (Auto) Lymph % (Auto) Hooker % (Auto) Eos % (Auto) Baso % (Auto) Neut # (Auto) Lymph # (Auto) Hooker # (Auto) Eos # (Auto) Baso # (Auto) Neutrophils % (Manual) Band Neutrophils % Lymphocytes % (Manual) Monocytes % (Manual) Eosinophils % (Manual) Platelet Estimate Polychromasia Hypochromasia (manual) Poikilocytosis (manual Basophilic Stippling Anisocytosis (manual) Macrocytosis (manual) PT INR APTT Puncture Site Rb pCO2 75 H* pO2 48 L HCO3 31.4 H ABG pH 7.30 L ABG Total CO2 39.2 H ABG O2 Saturation 89.7 L ABG Base Excess 8.6 H ABG Hemoglobin 9.8 L ABG Carboxyhemoglobin 2.5 H POC ABG HHb (Measured) 10.0 H ABG Methemoglobin 0.7 Esvin Test Na VBG pH VBG pCO2 VBG HCO3 VBG Total CO2 VBG O2 Sat (Calc) VBG Base Excess VBG Potassium A-a O2 Difference 108.0 Respiratory Index 2.3 Hgb O2 Saturation 86.8 L Sodium Chloride Glucose Lactate Liter Flow Vent Mode Bipap FiO2 35.0 Inspiratory BiPAP 12 Expiratory BiPAP 6 Crit Value Called To Asya foster/rn Crit Value Called By Jeremy greenwood/rt Crit Value Read Back Y Blood Gas Notified Time 645 Potassium Carbon Dioxide Anion Gap BUN Creatinine Est GFR ( Amer) Est GFR (Non-Af Amer) POC Glucose (mg/dL) Random Glucose Calcium Total Bilirubin AST ALT Alkaline Phosphatase Troponin I NT-Pro-B Natriuret Pep Total Protein Albumin Globulin Albumin/Globulin Ratio Venous Blood Potassium Assessment & Plan (1) Atelectasis of right lung Status: Acute (2) Dyspnea Status: Acute (3) Hypercapnic respiratory failure Status: Acute (4) Syncope Status: Acute (5) ESRD (end stage renal disease) on dialysis Status: Chronic
[2017-11-26] MEDS: Albuterol-Ipratrop 3 mg / 0.5 (3 ml) UD INH SCH ×3 (01:08→19:29)
[2017-11-26] MEDS: Acetylcysteine 20% Inhal Soln (4ml) INH SCH ×3 (01:11→19:28)
[2017-11-26] MEDS: MethylPREDNISolone 40 mg Vial IV SCH ×3 (05:52→21:00)
[2017-11-26 06:58] LABS: BASO % 0.1 % (0.0-2.0); HEMOGLOBIN 9.2 g/dL (12.0-18.0); LYMPH # 0.3 K/uL (1.0-4.3); LYMPH % 7.3 % (20.0-40.0); MEAN CELL VOLUME 101.2 fL (80.0-94.0); MEAN CORPUSCULAR HGB CONC 32.6 g/dL (33.0-37.0); MEAN PLATELET VOLUME 8.3 fL (7.2-11.7); MONO # 0.2 K/uL (0.0-0.8); MONO % 3.9 % (0.0-10.0); NEUT # 3.7 K/uL (1.8-7.0); NEUT % 88.7 % (50.0-75.0); NRBC % 0.7 % (0.0-2.0); PLATELET COUNT 141 K/uL (130-400); RBC 2.79 Mil/uL (4.40-5.90); RED CELL DISTRIBUTION WIDTH 20.3 % (11.5-14.5); WHITE BLOOD COUNT 4.2 K/uL (4.8-10.8)
[2017-11-26 07:57] LABS: ALB/GLOB RATIO 0.9 (1.0-2.1); ALBUMIN 3.1 g/dL (3.5-5.0); CALCIUM 8.6 mg/dl (8.6-10.4)
--- NOTE | 2017-11-26 08:39 | RAD ---
Chest x-ray single frontal view History: Follow-up. Comparison: 11/25/2017 Findings: Moderate loculated right pleural effusion. Moderate to severe venous congestion. Prominent consolidative changes seen within the right mid to lower lung zone as well as the left lung base. Status post median sternotomy. Calcification at the aortic knob. Right hilar prominence. Cardiomegaly. Degenerative changes in the spine and shoulders. Left axillary stent in place. Impression: Moderate loculated right pleural effusion. Moderate to severe venous congestion. Prominent consolidative changes seen within the right mid to lower lung zone as well as the left lung base. Status post median sternotomy. Calcification at the aortic knob. Right hilar prominence. Cardiomegaly. Degenerative changes in the spine and shoulders. Left axillary stent in place.
[2017-11-26 08:43] LABS: ANISOCYTOSIS SLIGHT; HYPOCHROMIC SLIGHT; LYMPHOCYTE 9 % (20-40); MONOCYTE 3 % (0-10); NEUTROPHIL 88 % (50-75); PLATELET ESTIMATE NORMAL (NORMAL); POIKILOCYTOSIS SLIGHT; TOTAL CELLS COUNTED 100
[2017-11-26] MEDS: Pantoprazole 20 mg EC Tab PO SCH (10:14)
[2017-11-26] MEDS: Ciprofloxacin 200mg/100ml D5W 100 ML IVPB SCH ×2 (11:00→21:00)
--- NOTE | 2017-11-26 11:35 | CP.CCUPN ---
<Vicky De Oliveira - Last Filed: 11/26/17 13:31> CCU Subjective - Physician Review Subjective (Free Text): Patient seen and examined at bedside. No overnight events reported. At this time patient reports headache. ROS POSITIVE: Headache, SOB (improved) NEGATIVE: Fevers, chill, chest pain, palpitations, abdominal pain, nausea, vomiting, or changes in bowel habits. Patient does not make urine. CCU Objective - Vital Signs / Intake & Output Vital Signs (Last 4 hours): Vital Signs Pulse Resp BP Pulse Ox 11/26/17 08:13 80 7 L 120/95 H 100 11/26/17 07:47 80 Intake and Output (Last 8hrs): Intake & Output 11/25/17 11/26/17 11/26/17 22:59 06:59 14:59 Intake Total 490 250 200 Output Total 0 0 0 Balance 490 250 200 Weight 207 lb 1.6 oz Intake: Intake, IV Amount 200 0 Right Forearm 200 0 Oral 490 50 200 Output: Urine 0 0 0 Urine, Voided 0 0 0 Emesis 0 0 Other: # Bowel Movements 0 0 0 - Physical Exam Head: Positive for: Atraumatic, Normocephalic Mouth: Positive for: Moist Mucous Membranes Neck: Positive for: Normal Range of Motion Respiratory/Chest: Positive for: Decreased Breath Sounds Cardiovascular: Positive for: Regular Rate and Rhythm Abdomen: Positive for: Normal Bowel Sounds Lower Extremity: Positive for: Edema Skin: Positive for: Warm Psychiatric: Positive for: Alert, Oriented x 3 - Medications Active Medications: Active Medications Generic Name Dose Route Start Last Admin Trade Name Freq PRN Reason Stop Dose Admin Acetaminophen 650 mg 11/26/17 09:48 11/26/17 10:13 Tylenol 325mg Tab PO 650 mg Q6 PRN Administration Pain or Fever Acetylcysteine 4 ml 11/25/17 10:00 11/26/17 07:55 Acetylcysteine 20% INH 4 ml RQ6 BELL Administration Albuterol/Ipratropium 3 ml 11/25/17 02:00 11/26/17 07:54 Duoneb 3 Mg/0.5 Mg (3 Ml) Ud INH 3 ml RQ6 BELL Administration Heparin Sodium (Porcine) 5,000 units 11/24/17 23:30 11/26/17 05:52 Heparin SC 5,000 units Q8 BELL Administration Ciprofloxacin 100 mls @ 100 mls/hr 11/26/17 10:00 11/26/17 11:00 Cipro 200mg/100ml D5w IVPB 100 mls/hr Q12H BELL Administration Protocol Methylprednisolone 20 mg 11/26/17 10:00 11/26/17 10:12 Solu-Medrol IV 20 mg Q12 BELL Administration Pantoprazole Sodium 20 mg 11/25/17 10:45 11/26/17 10:14 Protonix Ec Tab PO 20 mg DAILY BELL Administration - Patient Studies Lab Studies: Microbiology Studies 11/24/17 10:30 MRSA Culture (Admit) - Final Naris MRSA NOT DETECTED 11/24/17 18:00 Blood Culture - Preliminary Blood NO GROWTH AFTER 24 HOURS 11/24/17 17:40 Blood Culture - Preliminary Blood NO GROWTH AFTER 24 HOURS 11/25/17 12:26 Gram Stain - Final Sputum Lab Studies 11/26/17 11/26/17 11/26/17 Range/Units 11:12 07:23 06:54 WBC (4.8-10.8) K/uL RBC (4.40-5.90) Mil/uL Hgb (12.0-18.0) g/dL Hct (35.0-51.0) % MCV (80.0-94.0) fL MCH (27.0-31.0) pg MCHC (33.0-37.0) g/dL RDW (11.5-14.5) % Plt Count (130-400) K/uL MPV (7.2-11.7) fL Neut % (Auto) (50.0-75.0) % Lymph % (Auto) (20.0-40.0) % [place] % (Auto) (0.0-10.0) % Eos % (Auto) (0.0-4.0) % Baso % (Auto) (0.0-2.0) % Neut # (Auto) (1.8-7.0) K/uL Lymph # (Auto) (1.0-4.3) K/uL [place] # (Auto) (0.0-0.8) K/uL Eos # (Auto) (0.0-0.7) K/uL Baso # (Auto) (0.0-0.2) K/uL Neutrophils % (Manual) (50-75) % Lymphocytes % (Manual) (20-40) % Monocytes % (Manual) (0-10) % Platelet Estimate (NORMAL) Hypochromasia (manual) Poikilocytosis (manual Basophilic Stippling Anisocytosis (manual) Macrocytosis (manual) Sodium 137 (132-148) mmol/L Potassium 5.1 (3.6-5.2) mmol/L Chloride 94 L (98-107) mmol/L Carbon Dioxide 33 H (22-30) mmol/L Anion Gap 16 (10-20) BUN 28 H (9-20) mg/dL Creatinine 3.4 H (0.8-1.5) mg/dL Est GFR ( Amer) 22 Est GFR (Non-Af Amer) 18 POC Glucose (mg/dL) 156 H 134 H (65-110) mg/dL Random Glucose 136 H (75-110) mg/dL Calcium 8.6 (8.6-10.4) mg/dl Phosphorus 4.9 H (2.5-4.5) mg/dL Magnesium 2.2 (1.6-2.3) mg/dL Total Bilirubin 0.6 (0.2-1.3) mg/dL AST 22 (17-59) U/L ALT 18 L (21-72) U/L Alkaline Phosphatase 111 (38-126) U/L Total Protein 6.5 (6.3-8.3) g/dL Albumin 3.1 L (3.5-5.0) g/dL Globulin 3.4 (2.2-3.9) gm/dL Albumin/Globulin Ratio 0.9 L (1.0-2.1) 11/26/17 11/25/17 Range/Units 06:54 22:24 WBC 4.2 L (4.8-10.8) K/uL RBC 2.79 L (4.40-5.90) Mil/uL Hgb 9.2 L (12.0-18.0) g/dL Hct 28.3 L (35.0-51.0) % MCV 101.2 H (80.0-94.0) fL MCH 33.0 H (27.0-31.0) pg MCHC 32.6 L (33.0-37.0) g/dL RDW 20.3 H (11.5-14.5) % Plt Count 141 (130-400) K/uL MPV 8.3 (7.2-11.7) fL Neut % (Auto) 88.7 H (50.0-75.0) % Lymph % (Auto) 7.3 L (20.0-40.0) % [place] % (Auto) 3.9 (0.0-10.0) % Eos % (Auto) 0.0 (0.0-4.0) % Baso % (Auto) 0.1 (0.0-2.0) % Neut # (Auto) 3.7 (1.8-7.0) K/uL Lymph # (Auto) 0.3 L (1.0-4.3) K/uL [place] # (Auto) 0.2 (0.0-0.8) K/uL Eos # (Auto) 0.0 (0.0-0.7) K/uL Baso # (Auto) 0.0 (0.0-0.2) K/uL Neutrophils % (Manual) 88 H (50-75) % Lymphocytes % (Manual) 9 L (20-40) % Monocytes % (Manual) 3 (0-10) % Platelet Estimate Normal (NORMAL) Hypochromasia (manual) Slight Poikilocytosis (manual Slight Basophilic Stippling Slight Anisocytosis (manual) Slight Macrocytosis (manual) Slight Sodium (132-148) mmol/L Potassium (3.6-5.2) mmol/L Chloride (98-107) mmol/L Carbon Dioxide (22-30) mmol/L Anion Gap (10-20) BUN (9-20) mg/dL Creatinine (0.8-1.5) mg/dL Est GFR ( Amer) Est GFR (Non-Af Amer) POC Glucose (mg/dL) 141 H (65-110) mg/dL Random Glucose (75-110) mg/dL Calcium (8.6-10.4) mg/dl Phosphorus (2.5-4.5) mg/dL Magnesium (1.6-2.3) mg/dL Total Bilirubin (0.2-1.3) mg/dL AST (17-59) U/L ALT (21-72) U/L Alkaline Phosphatase (38-126) U/L Total Protein (6.3-8.3) g/dL Albumin (3.5-5.0) g/dL Globulin (2.2-3.9) gm/dL Albumin/Globulin Ratio (1.0-2.1) Laboratory Results - last 24 hr 11/25/17 11/26/17 11/26/17 22:24 06:54 06:54 WBC 4.2 L RBC 2.79 L Hgb 9.2 L Hct 28.3 L MCV 101.2 H MCH 33.0 H MCHC 32.6 L RDW 20.3 H Plt Count 141 MPV 8.3 Neut % (Auto) 88.7 H Lymph % (Auto) 7.3 L [place] % (Auto) 3.9 Eos % (Auto) 0.0 Baso % (Auto) 0.1 Neut # (Auto) 3.7 Lymph # (Auto) 0.3 L [place] # (Auto) 0.2 Eos # (Auto) 0.0 Baso # (Auto) 0.0 Neutrophils % (Manual) 88 H Lymphocytes % (Manual) 9 L Monocytes % (Manual) 3 Platelet Estimate Normal Hypochromasia (manual) Slight Poikilocytosis (manual Slight Basophilic Stippling Slight Anisocytosis (manual) Slight Macrocytosis (manual) Slight Sodium 137 Potassium 5.1 Chloride 94 L Carbon Dioxide 33 H Anion Gap 16 BUN 28 H Creatinine 3.4 H Est GFR ( Amer) 22 Est GFR (Non-Af Amer) 18 POC Glucose (mg/dL) 141 H Random Glucose 136 H Calcium 8.6 Phosphorus 4.9 H Magnesium 2.2 Total Bilirubin 0.6 AST 22 ALT 18 L Alkaline Phosphatase 111 Total Protein 6.5 Albumin 3.1 L Globulin 3.4 Albumin/Globulin Ratio 0.9 L 11/26/17 11/26/17 07:23 11:12 WBC RBC Hgb Hct MCV MCH MCHC RDW Plt Count MPV Neut % (Auto) Lymph % (Auto) [place] % (Auto) Eos % (Auto) Baso % (Auto) Neut # (Auto) Lymph # (Auto) [place] # (Auto) Eos # (Auto) Baso # (Auto) Neutrophils % (Manual) Lymphocytes % (Manual) Monocytes % (Manual) Platelet Estimate Hypochromasia (manual) Poikilocytosis (manual Basophilic Stippling Anisocytosis (manual) Macrocytosis (manual) Sodium Potassium Chloride Carbon Dioxide Anion Gap BUN Creatinine Est GFR ( Amer) Est GFR (Non-Af Amer) POC Glucose (mg/dL) 134 H 156 H Random Glucose Calcium Phosphorus Magnesium Total Bilirubin AST ALT Alkaline Phosphatase Total Protein Albumin Globulin Albumin/Globulin Ratio EKG/Cardiology Studies: Cardiology / EKG Studies 11/26/17 23:30 ELECTROCARDIOGRAM DAILY Comment: Mode Of Transportation: PORTABLE Reason For Exam: f/u Fingerstick Blood Sugar Results: 141 Review of Systems - Review of Systems All systems: reviewed and no additional remarkable complaints except Review of Systems: As per HPI - EENT Eyes: absent: Blurred Vision - Cardiovascular Cardiovascular: Chest Pain Critical Care Progress Note - Nutrition Nutrition: Nutrition Category Date Time Status Consistent Carbohydrate [DIET] Diets 11/26/17 Lunch Active Assessment/Plan - Assessment and Plan (Free Text) Assessment: 67-year-old male with end-stage renal disease on hemodialysis was transferred to ICU for hypercapnic respiratory failure and change in mental status Plan: Neuro: Head CT (10/25) 1. Nonspecific white matter changes. Acute infarction may be CT occult within first 24 hours. If a focal deficit persists, consider followup CT or MRI for further evaluation. 2. Sinus disease. 3. Incidental/non-acute findings are described above GSC 15 Sedation: None MSK Physical Therapy Cardio CAD, HTN Labile BP, Hold Anti-Hypertensives. Pulm A: Hypercapnic Res. Failure CXR (11/25): Loculated Right Pleural Effusion , Mod-Severe Pulm Congestion. Right Hilar Prominence, Cardiomegaly, Prominent consolidative changes seen within the right id to lower lung zone as well as the left lung bases. on 2.5L NC BiPAP PRN MucoMyst Q6H BELL DuoNeb Q6H BELL SoluMedrol 20 Q12 IVP Chest PT GI Protonix 20 PO Daily Nephro/electrolytes I/O: 475/0 HD today and tomorrow per Nephro ID Afebrile, No leukocytosis Ciprofloxacin 200 Q12H IVP Endo Insulin Low ISS Prophylaxis Heparin SC q8H Protonix 20 Daily Renal Diet. Patient seen and discussed with ICU Attending Vicky De Oliveira, PGY-1 <Sarmad Valerio - Last Filed: 12/02/17 06:43> CCU Objective - Vital Signs / Intake & Output Intake and Output (Last 8hrs): Intake & Output 12/01/17 12/01/17 12/02/17 14:59 22:59 06:59 Intake Total 200 Balance 200 Intake: Oral 200 Other: # Voids Urine, Voided 3 - Medications Active Medications: Active Medications Generic Name Dose Route Start Last Admin Trade Name Freq PRN Reason Stop Dose Admin Acetaminophen 650 mg 11/26/17 09:48 12/01/17 18:10 Tylenol 325mg Tab PO 650 mg Q6 PRN Administration Pain or Fever Acetylcysteine 4 ml 11/25/17 10:00 12/02/17 01:57 Acetylcysteine 20% INH 4 ml RQ6 BELL Administration Albuterol/Ipratropium 3 ml 12/01/17 13:00 12/02/17 01:57 Duoneb 3 Mg/0.5 Mg (3 Ml) Ud INH 3 ml RQ6 BELL Administration Alprazolam 0.25 mg 12/01/17 22:00 12/01/17 21:27 Xanax PO 0.25 mg HS BELL Administration Docusate Sodium 100 mg 11/30/17 10:00 12/01/17 17:45 Colace PO 100 mg TID BELL Administration Epoetin Mario 10,000 unit 12/01/17 10:45 12/01/17 10:56 Procrit IV 10,000 unit TTS BELL Administration Hydrocortisone 0 gm 11/30/17 03:30 12/01/17 17:45 Anusol-Hc ID 1 applic BID BELL Administration Ceftriaxone Sodium 50 mls @ 100 mls/hr 11/27/17 10:00 12/01/17 13:35 Rocephin Iv 1 Gm Duplex IVPB 100 mls/hr DAILY BELL Administration Protocol Insulin Human Regular 0 unit 11/26/17 16:30 12/01/17 22:00 Novolin R SC Not Given ACHS BELL Protocol Methylprednisolone 20 mg 11/26/17 10:00 12/01/17 21:25 Solu-Medrol IV 20 mg Q12 BELL Administration Pantoprazole Sodium 20 mg 11/25/17 10:45 12/01/17 09:34 Protonix Ec Tab PO 20 mg DAILY BELL Administration Paricalcitol 2 mcg 11/27/17 10:00 12/01/17 10:44 Zemplar IV 2 mcg TTS BELL Administration Sevelamer Carbonate 800 mg 11/29/17 08:00 12/01/17 17:46 Renvela PO 800 mg TIDCC BELL Administration Vitamin B Complex/Vit C/Folic Acid 1 tab 11/29/17 08:00 12/01/17 09:34 Nephro-Renaldo PO 1 tab 0800 BELL Administration - Patient Studies Lab Studies: Microbiology Studies 11/30/17 06:19 MRSA Culture - Final Nose MRSA NOT DETECTED Lab Studies 12/01/17 12/01/17 12/01/17 Range/Units 21:37 17:11 11:39 WBC (4.8-10.8) K/uL RBC (4.40-5.90) Mil/uL Hgb (12.0-18.0) g/dL Hct (35.0-51.0) % MCV (80.0-94.0) fL MCH (27.0-31.0) pg MCHC (33.0-37.0) g/dL RDW (11.5-14.5) % Plt Count (130-400) K/uL MPV (7.2-11.7) fL Neut % (Auto) (50.0-75.0) % Lymph % (Auto) (20.0-40.0) % [place] % (Auto) (0.0-10.0) % Eos % (Auto) (0.0-4.0) % Baso % (Auto) (0.0-2.0) % Neut # (Auto) (1.8-7.0) K/uL Lymph # (Auto) (1.0-4.3) K/uL [place] # (Auto) (0.0-0.8) K/uL Eos # (Auto) (0.0-0.7) K/uL Baso # (Auto) (0.0-0.2) K/uL Neutrophils % (Manual) (50-75) % Band Neutrophils % (0-2) % Lymphocytes % (Manual) (20-40) % Monocytes % (Manual) (0-10) % Metamyelocytes % (0-0) % Myelocytes % (0-0) % Nucleated RBC % (0-0) % Platelet Estimate (NORMAL) Polychromasia Hypochromasia (manual) Poikilocytosis (manual Anisocytosis (manual) Macrocytosis (manual) Spherocytes Tear Drop Cells Ovalocytes Sodium (132-148) mmol/L Potassium (3.6-5.2) mmol/L Chloride (98-107) mmol/L Carbon Dioxide (22-30) mmol/L Anion Gap (10-20) BUN (9-20) mg/dL Creatinine (0.8-1.5) mg/dL Est GFR ( Amer) Est GFR (Non-Af Amer) POC Glucose (mg/dL) 121 H 125 H 128 H (65-110) mg/dL Random Glucose (75-110) mg/dL Calcium (8.6-10.4) mg/dl Total Bilirubin (0.2-1.3) mg/dL AST (17-59) U/L ALT (21-72) U/L Alkaline Phosphatase (38-126) U/L Total Protein (6.3-8.3) g/dL Albumin (3.5-5.0) g/dL Globulin (2.2-3.9) gm/dL Albumin/Globulin Ratio (1.0-2.1) 12/01/17 12/01/17 12/01/17 Range/Units 08:03 08:03 07:18 WBC 8.0 (4.8-10.8) K/uL RBC 2.94 L (4.40-5.90) Mil/uL Hgb 9.9 L (12.0-18.0) g/dL Hct 29.8 L (35.0-51.0) % MCV 101.4 H (80.0-94.0) fL MCH 33.6 H (27.0-31.0) pg MCHC 33.2 (33.0-37.0) g/dL RDW 21.3 H (11.5-14.5) % Plt Count 123 L (130-400) K/uL MPV 8.5 (7.2-11.7) fL Neut % (Auto) 84.9 H (50.0-75.0) % Lymph % (Auto) 9.5 L (20.0-40.0) % [place] % (Auto) 5.3 (0.0-10.0) % Eos % (Auto) 0.0 (0.0-4.0) % Baso % (Auto) 0.3 (0.0-2.0) % Neut # (Auto) 6.8 (1.8-7.0) K/uL Lymph # (Auto) 0.8 L (1.0-4.3) K/uL [place] # (Auto) 0.4 (0.0-0.8) K/uL Eos # (Auto) 0.0 (0.0-0.7) K/uL Baso # (Auto) 0.0 (0.0-0.2) K/uL Neutrophils % (Manual) 71 (50-75) % Band Neutrophils % 6 H (0-2) % Lymphocytes % (Manual) 10 L (20-40) % Monocytes % (Manual) 7 (0-10) % Metamyelocytes % 2 H (0-0) % Myelocytes % 4 H (0-0) % Nucleated RBC % 2 H (0-0) % Platelet Estimate Normal (NORMAL) Polychromasia Slight Hypochromasia (manual) Slight Poikilocytosis (manual Slight Anisocytosis (manual) Moderate Macrocytosis (manual) Slight Spherocytes Slight Tear Drop Cells Slight Ovalocytes Slight Sodium 137 (132-148) mmol/L Potassium 5.7 H (3.6-5.2) mmol/L Chloride 97 L (98-107) mmol/L Carbon Dioxide 28 (22-30) mmol/L Anion Gap 17 (10-20) BUN 73 H (9-20) mg/dL Creatinine 4.7 H (0.8-1.5) mg/dL Est GFR ( Amer) 15 Est GFR (Non-Af Amer) 13 POC Glucose (mg/dL) 151 H (65-110) mg/dL Random Glucose 145 H (75-110) mg/dL Calcium 9.5 (8.6-10.4) mg/dl Total Bilirubin 0.9 (0.2-1.3) mg/dL AST 44 (17-59) U/L ALT 68 (21-72) U/L Alkaline Phosphatase 92 (38-126) U/L Total Protein 6.0 L (6.3-8.3) g/dL Albumin 2.9 L (3.5-5.0) g/dL Globulin 3.1 (2.2-3.9) gm/dL Albumin/Globulin Ratio 0.9 L (1.0-2.1) Laboratory Results - last 24 hr 12/01/17 12/01/17 12/01/17 07:18 08:03 08:03 WBC 8.0 RBC 2.94 L Hgb 9.9 L Hct 29.8 L MCV 101.4 H MCH 33.6 H MCHC 33.2 RDW 21.3 H Plt Count 123 L MPV 8.5 Neut % (Auto) 84.9 H Lymph % (Auto) 9.5 L [place] % (Auto) 5.3 Eos % (Auto) 0.0 Baso % (Auto) 0.3 Neut # (Auto) 6.8 Lymph # (Auto) 0.8 L [place] # (Auto) 0.4 Eos # (Auto) 0.0 Baso # (Auto) 0.0 Neutrophils % (Manual) 71 Band Neutrophils % 6 H Lymphocytes % (Manual) 10 L Monocytes % (Manual) 7 Metamyelocytes % 2 H Myelocytes % 4 H Nucleated RBC % 2 H Platelet Estimate Normal Polychromasia Slight Hypochromasia (manual) Slight Poikilocytosis (manual Slight Anisocytosis (manual) Moderate Macrocytosis (manual) Slight Spherocytes Slight Tear Drop Cells Slight Ovalocytes Slight Sodium 137 Potassium 5.7 H Chloride 97 L Carbon Dioxide 28 Anion Gap 17 BUN 73 H Creatinine 4.7 H Est GFR ( Amer) 15 Est GFR (Non-Af Amer) 13 POC Glucose (mg/dL) 151 H Random Glucose 145 H Calcium 9.5 Total Bilirubin 0.9 AST 44 ALT 68 Alkaline Phosphatase 92 Total Protein 6.0 L Albumin 2.9 L Globulin 3.1 Albumin/Globulin Ratio 0.9 L 12/01/17 12/01/17 12/01/17 11:39 17:11 21:37 WBC RBC Hgb Hct MCV MCH MCHC RDW Plt Count MPV Neut % (Auto) Lymph % (Auto) [place] % (Auto) Eos % (Auto) Baso % (Auto) Neut # (Auto) Lymph # (Auto) [place] # (Auto) Eos # (Auto) Baso # (Auto) Neutrophils % (Manual) Band Neutrophils % Lymphocytes % (Manual) Monocytes % (Manual) Metamyelocytes % Myelocytes % Nucleated RBC % Platelet Estimate Polychromasia Hypochromasia (manual) Poikilocytosis (manual Anisocytosis (manual) Macrocytosis (manual) Spherocytes Tear Drop Cells Ovalocytes Sodium Potassium Chloride Carbon Dioxide Anion Gap BUN Creatinine Est GFR ( Amer) Est GFR (Non-Af Amer) POC Glucose (mg/dL) 128 H 125 H 121 H Random Glucose Calcium Total Bilirubin AST ALT Alkaline Phosphatase Total Protein Albumin Globulin Albumin/Globulin Ratio Critical Care Progress Note - Nutrition Nutrition: Nutrition Category Date Time Status Renal Diet [DIET] Diets 11/26/17 Dinner Active Attending/Attestation - Attestation I have personally seen and examined this patient.: Yes I have fully participated in the care of the patient.: Yes I have reviewed all pertinent clinical information: Yes
--- NOTE | 2017-11-26 12:25 | CARD ---
APPROVED REPORT EKG Measurement Heart [id number] <Conclusion> Ventricular-paced rhythm Abnormal ECG
--- NOTE | 2017-11-26 13:10 | CP.PCM.PN ---
Subjective - Date & Time of Evaluation Date of Evaluation: 11/26/17 Time of Evaluation: 13:09 - Subjective Subjective: pt is seen and examined, follow up consult is dictated #[id number] Objective - Vital Signs/Intake and Output Vital Signs (last 24 hours): Temp Pulse Resp BP Pulse Ox 98.2 F 80 7 L 120/95 H 100 11/26/17 04:00 11/26/17 11:42 11/26/17 08:13 11/26/17 08:13 11/26/17 08:13 Intake and Output: 11/26/17 11/26/17 06:59 18:59 Intake Total 400 200 Output Total 0 0 Balance 400 200 - Medications Medications: Current Medications Acetaminophen (Tylenol 325mg Tab) 650 mg PO Q6 PRN PRN Reason: Pain or Fever Last Admin: 11/26/17 10:13 Dose: 650 mg Acetylcysteine (Acetylcysteine 20%) 4 ml INH RQ6 BELL Last Admin: 11/26/17 07:55 Dose: 4 ml Albuterol/Ipratropium (Duoneb 3 Mg/0.5 Mg (3 Ml) Ud) 3 ml INH RQ6 BELL Last Admin: 11/26/17 07:54 Dose: 3 ml Heparin Sodium (Porcine) (Heparin) 5,000 units SC Q8 BELL Last Admin: 11/26/17 05:52 Dose: 5,000 units Ciprofloxacin (Cipro 200mg/100ml D5w) 100 mls @ 100 mls/hr IVPB Q12H BELL PRN Reason: Protocol Last Admin: 11/26/17 11:00 Dose: 100 mls/hr Methylprednisolone (Solu-Medrol) 20 mg IV Q12 BELL Last Admin: 11/26/17 10:12 Dose: 20 mg Pantoprazole Sodium (Protonix Ec Tab) 20 mg PO DAILY BELL Last Admin: 11/26/17 10:14 Dose: 20 mg - Labs Labs: 11/26/17 06:54 11/26/17 06:54 PT 11.2 SECONDS (9.7-12.2) 11/24/17 18:03 INR 1.0 11/24/17 18:03 APTT 38 SECONDS (21-34) H 11/24/17 18:03
[2017-11-26] MEDS ORDERED: Lidocaine/Prilocaine 2.5%-2.5% Cream (5 gm) TOP ONE (14:20)
[2017-11-26] MEDS: (Novolin R) Insulin Human Regular 100 units/ml vial SC SCH ×2 (16:26→22:00)
--- NOTE | 2017-11-26 18:13 | CP.PCM.HP ---
History of Present Illness - History of Present Illness History of Present Illness: CC: unresponsive HPI: Patient well known to me. As per EMS patient was found unresponsive in bed in fdc. Pt just concluded his full HD as per fdc this afternoon. Pt was treated with BIPAP en route with no improved mental status. Patient was recently discharged after treated for syncope, bradycardia and accelerated HTN. Patient has PMHx of quadruple bypass, COPD, sleep apnea, ESRD on HD., CVA affecting left, HTN, DM and recent PPM implant for symptomatic bradycardia. Present on Admission - Present on Admission Any Indicators Present on Admission: Yes History of DVT/PE: No History of Uncontrolled Diabetes: Yes Decubitus Ulcer Present: Yes Review of Systems - Constitutional Constitutional: Snoring, Sleep Apnea, Weakness - Cardiovascular Cardiovascular: Slow Heart Rate, Syncope - Respiratory Respiratory: Cough, Dyspnea, Dyspnea on Exertion - Gastrointestinal Gastrointestinal: Abdominal Pain - Integumentary Integumentary: Sores - Neurological Neurological: Focal Weakness Past Patient History - Infectious Disease Hx of Infectious Diseases: None - Past Medical History & Family History Past Medical History?: Yes - Past Social History Smoking Status: Never Smoked - CARDIAC Hx Congestive Heart Failure: Yes Hx Hypertension: Yes Hx Pacemaker: Yes Hx Peripheral Edema: Yes - PULMONARY Hx Asthma: Yes Hx Chronic Obstructive Pulmonary Disease (COPD): Yes Hx Sleep Apnea: Yes - NEUROLOGICAL Hx Neurological Disorder: Yes (SEE COMMENT) HX Cerebrovascular Accident: Yes (non ambulatory) Other/Comment: DYSPHAGIA. SLEEP APNEA - HEENT Hx HEENT Problems: Yes Hx Cataracts: Yes - RENAL Hx Chronic Kidney Disease: Yes Hx Dialysis: Yes Type of Dialysis Access: Left arm AVS Date of Last Dialysis Treatment: 11/24/17 Hx Renal Failure: Yes - ENDOCRINE/METABOLIC Hx Endocrine Disorders: Yes Hx Diabetes Mellitus Type 2: Yes - HEMATOLOGICAL/ONCOLOGICAL Hx Anemia: Yes - INTEGUMENTARY Hx Dermatological Problems: Yes Other/Comment: healed sacral ulcer - MUSCULOSKELETAL/RHEUMATOLOGICAL Hx Musculoskeletal Disorders: Yes Hx Falls: Yes Hx Unsteady Gait: Yes Other/Comment: HX: MUSCLE WEAKNESS(GENERALIZED), Left sided body weakness due to CVA - GASTROINTESTINAL Hx Gastrointestinal Disorders: Yes Other/Comment: HX: DYSPHAGIA,UNSPECIFIED - GENITOURINARY/GYNECOLOGICAL Hx Genitourinary Disorders: No - PSYCHIATRIC Hx Depression: Yes ('MAJOR DEPRESSIVE DISORDER,SINGLE EPISODE,UNSPECIFIED") Hx Substance Use: No - SURGICAL HISTORY Hx Coronary Artery Bypass Graft: Yes - ANESTHESIA Hx Anesthesia: Yes Hx Anesthesia Reactions: No Hx Malignant Hyperthermia: No Meds Allergies/Adverse Reactions: Allergies Allergy/AdvReac Type Severity Reaction Status Date / Time iodine Allergy Intermediate RASH Verified 09/25/17 21:16 aspirin Allergy unknown Verified 11/24/17 17:31 clopidogrel [From Plavix] Allergy SHORTNESS Verified 11/24/17 17:31 OF BREATH clopidogrel bisulfate Allergy UNKNOWN Verified 11/24/17 17:31 [From Plavix] Opioids - Morphine Analogues Allergy hypercapnic Verified 11/24/17 17:31 respiratory failure penicillin G Allergy SHORTNESS Verified 11/24/17 17:31 OF BREATH Penicillins Allergy UNKNOWN Verified 11/24/17 17:31 zolpidem [From Ambien] Allergy hypercapnic Verified 11/24/17 17:31 respiratory failure IV DYE Allergy unknown Uncoded 11/24/17 17:31 Physical Exam - Constitutional Appears: Toxic - Head Exam Head Exam: ATRAUMATIC - Eye Exam Eye Exam: absent: Scleral icterus - Neck Exam Neck exam: Positive for: Full Rom. Negative for: Lymphadenopathy - Respiratory Exam Respiratory Exam: Decreased Breath Sounds - Cardiovascular Exam Cardiovascular Exam: REGULAR RHYTHM - GI/Abdominal Exam GI & Abdominal Exam: Normal Bowel Sounds, Soft. absent: Tenderness - Extremities Exam Extremities exam: Positive for: calf tenderness. Negative for: pedal edema - Neurological Exam Neurological exam: Abnormal Gait, Oriented x3 Results - Vital Signs Recent Vital Signs: Last Vital Signs Temp 97.6 F 11/26/17 14:55 Pulse 80 11/26/17 15:50 Resp 15 11/26/17 15:50 BP 137/32 L 11/26/17 17:25 Pulse Ox 100 11/26/17 14:55 - Labs Result Diagrams: 11/26/17 06:54 11/26/17 06:54 Labs: Laboratory Results - last 24 hr 11/25/17 11/26/17 11/26/17 22:24 06:54 06:54 WBC 4.2 L RBC 2.79 L Hgb 9.2 L Hct 28.3 L MCV 101.2 H MCH 33.0 H MCHC 32.6 L RDW 20.3 H Plt Count 141 MPV 8.3 Neut % (Auto) 88.7 H Lymph % (Auto) 7.3 L [place] % (Auto) 3.9 Eos % (Auto) 0.0 Baso % (Auto) 0.1 Neut # (Auto) 3.7 Lymph # (Auto) 0.3 L [place] # (Auto) 0.2 Eos # (Auto) 0.0 Baso # (Auto) 0.0 Neutrophils % (Manual) 88 H Lymphocytes % (Manual) 9 L Monocytes % (Manual) 3 Platelet Estimate Normal Hypochromasia (manual) Slight Poikilocytosis (manual Slight Basophilic Stippling Slight Anisocytosis (manual) Slight Macrocytosis (manual) Slight Sodium 137 Potassium 5.1 Chloride 94 L Carbon Dioxide 33 H Anion Gap 16 BUN 28 H Creatinine 3.4 H Est GFR ( Amer) 22 Est GFR (Non-Af Amer) 18 POC Glucose (mg/dL) 141 H Random Glucose 136 H Calcium 8.6 Phosphorus 4.9 H Magnesium 2.2 Total Bilirubin 0.6 AST 22 ALT 18 L Alkaline Phosphatase 111 Total Protein 6.5 Albumin 3.1 L Globulin 3.4 Albumin/Globulin Ratio 0.9 L 11/26/17 11/26/17 11/26/17 07:23 11:12 16:11 WBC RBC Hgb Hct MCV MCH MCHC RDW Plt Count MPV Neut % (Auto) Lymph % (Auto) [place] % (Auto) Eos % (Auto) Baso % (Auto) Neut # (Auto) Lymph # (Auto) [place] # (Auto) Eos # (Auto) Baso # (Auto) Neutrophils % (Manual) Lymphocytes % (Manual) Monocytes % (Manual) Platelet Estimate Hypochromasia (manual) Poikilocytosis (manual Basophilic Stippling Anisocytosis (manual) Macrocytosis (manual) Sodium Potassium Chloride Carbon Dioxide Anion Gap BUN Creatinine Est GFR ( Amer) Est GFR (Non-Af Amer) POC Glucose (mg/dL) 134 H 156 H 142 H Random Glucose Calcium Phosphorus Magnesium Total Bilirubin AST ALT Alkaline Phosphatase Total Protein Albumin Globulin Albumin/Globulin Ratio Assessment & Plan - Assessment and Plan (Free Text) Assessment: ALtered mental status Collapsed right lung secondary to mucous plugging CAD COPD T2dm ESRD Plan: Admit to ICU/CCU Pulmonary consult w/ Dr Frausto Mucomyst nebulizer treatment HD
--- NOTE | 2017-11-26 18:28 | CP.PCM.PN ---
Subjective - Date & Time of Evaluation Date of Evaluation: 11/26/17 Time of Evaluation: 08:00 - Subjective Subjective: Pt more alert Able to communicate somewhat intelligently Objective - Vital Signs/Intake and Output Vital Signs (last 24 hours): Temp Pulse Resp BP Pulse Ox 97.6 F 71 8 L 129/30 L 100 11/26/17 16:00 11/26/17 18:09 11/26/17 18:09 11/26/17 18:09 11/26/17 18:09 Intake and Output: 11/26/17 11/26/17 06:59 18:59 Intake Total 400 795 Output Total 0 0 Balance 400 795 - Medications Medications: Current Medications Acetaminophen (Tylenol 325mg Tab) 650 mg PO Q6 PRN PRN Reason: Pain or Fever Last Admin: 11/26/17 10:13 Dose: 650 mg Acetylcysteine (Acetylcysteine 20%) 4 ml INH RQ6 [facility] Last Admin: 11/26/17 07:55 Dose: 4 ml Albuterol/Ipratropium (Duoneb 3 Mg/0.5 Mg (3 Ml) Ud) 3 ml INH RQ6 [facility] Last Admin: 11/26/17 07:54 Dose: 3 ml Alprazolam (Xanax) 0.25 mg PO Q12H [facility] Heparin Sodium (Porcine) (Heparin) 5,000 units SC Q8 [facility] Last Admin: 11/26/17 14:36 Dose: 5,000 units Ciprofloxacin (Cipro 200mg/100ml D5w) 100 mls @ 100 mls/hr IVPB Q12H [facility] PRN Reason: Protocol Last Admin: 11/26/17 11:00 Dose: 100 mls/hr Insulin Human Regular (Novolin R) 0 unit SC ACHS [facility] PRN Reason: Protocol Last Admin: 11/26/17 16:26 Dose: Not Given Methylprednisolone (Solu-Medrol) 20 mg IV Q12 [facility] Last Admin: 11/26/17 10:12 Dose: 20 mg Pantoprazole Sodium (Protonix Ec Tab) 20 mg PO DAILY [facility] Last Admin: 11/26/17 10:14 Dose: 20 mg - Labs Labs: 11/26/17 06:54 11/26/17 06:54 PT 11.2 SECONDS (9.7-12.2) 11/24/17 18:03 INR 1.0 11/24/17 18:03 APTT 38 SECONDS (21-34) H 11/24/17 18:03 - Constitutional Appears: Agitated - Head Exam Head Exam: ATRAUMATIC - Eye Exam Eye Exam: absent: Scleral icterus - ENT Exam ENT Exam: Mucous Membranes Moist - Neck Exam Neck Exam: Full ROM - Respiratory Exam Respiratory Exam: Decreased Breath Sounds - Cardiovascular Exam Cardiovascular Exam: REGULAR RHYTHM - GI/Abdominal Exam GI & Abdominal Exam: Soft. absent: Tenderness - Extremities Exam Extremities Exam: absent: Pedal Edema, Tenderness - Neurological Exam Neurological Exam: Alert Additional comments: left hemiparesis contracted Assessment and Plan - Assessment and Plan (Free Text) Assessment: Collapsed right lung due to mucous plugging with moderate loculated pleural effusion COPD CAD ESRD T2dm Hx of multiple CVA Hx of recent PPM implant Plan: Cont pulmonary management Case discussed with Dr Frausto Renal consult ID consult w/ Dr Rodas
[2017-11-27] MEDS: Acetylcysteine 20% Inhal Soln (4ml) INH SCH ×4 (01:35→19:38)
[2017-11-27] MEDS: Albuterol-Ipratrop 3 mg / 0.5 (3 ml) UD INH SCH ×4 (01:35→19:38)
[2017-11-27 06:21] LABS: BASO % 0.1 % (0.0-2.0); HEMOGLOBIN 9.2 g/dL (12.0-18.0); LYMPH # 0.3 K/uL (1.0-4.3); MEAN CELL VOLUME 101.8 fL (80.0-94.0); MEAN CORPUSCULAR HEMOGLOBIN 33.7 pg (27.0-31.0); MEAN CORPUSCULAR HGB CONC 33.1 g/dL (33.0-37.0); MEAN PLATELET VOLUME 7.8 fL (7.2-11.7); MONO # 0.3 K/uL (0.0-0.8); MONO % 5.9 % (0.0-10.0); NEUT # 5.2 K/uL (1.8-7.0); NRBC % 0.5 % (0.0-2.0); PLATELET COUNT 154 K/uL (130-400); RBC 2.73 Mil/uL (4.40-5.90); RED CELL DISTRIBUTION WIDTH 19.8 % (11.5-14.5); WHITE BLOOD COUNT 5.9 K/uL (4.8-10.8)
--- NOTE | 2017-11-27 06:36 | PN ---
DATE: 11/26/2017 FOLLOWUP RENAL CONSULTATION LOCATION: The patient is located in ICU, bed 3. REQUESTED BY: Theodore Lucas MD REASON FOR RENAL CONSULTATION: Respiratory failure, acute; end-stage renal disease; CHF; for possible extra hemodialysis today. HISTORY OF PRESENT ILLNESS: Mr. Gonzales is a 63-year-old elderly obese [place] male with a past medical history significant for longstanding hypertension, diabetes, coronary artery disease, status post CABG, CVA with left-sided weakness, end-stage renal disease, on hemodialysis for the last 2 to 3 years, COPD, status post upper GI bleed requiring multiple units of transfusion, about 5 units during his recent admission about 1 week ago, status post EGD, status post right subclavian pacemaker placement who was discharged to a halfway last week, Sunday, and now the patient was admitted with chief complaints of shortness of breath and found to have acute hypercapnic respiratory failure requiring placing in ICU and BiPAP. The patient is feeling slightly better this morning, and no chest pain, no palpitation, no fever, no cough. PAST MEDICAL HISTORY: His past medical history is significant for hypertension, diabetes, coronary artery disease, status post CABG, CVA, pacemaker, EGD, status post left upper extremity AV graft. PHYSICAL EXAMINATION: VITAL SIGNS: As follows. His blood pressure this morning 155/44, pulse 80, respirations about 11, and temperature is 98.3. Height 5 feet 6 inches, weight is 222 pounds. GENERAL: Mr. Gonzales is a 67 years old obese [place] male, well-built, well-nourished with a fluid overload with edematous appearance. HEENT: Pupils normal and reactive to light and accommodation. Conjunctivae pink. Sclerae anicteric. Tongue is moist. Trachea is midline. LUNGS: Symmetric on both sides. Bilateral breath sounds present. Bilateral crackles present. CVS: Grandin at the fifth intercostal space, midclavicular line. S1, S2 audible. No murmur or gallop. The patient has a midsternal scar present. ABDOMEN: Normal in appearance, soft, tympanic. No guarding. No rigidity. No hepatosplenomegaly. OUTREACH ASSISTANT: The patient is alert, awake, oriented times two to three. Sensory and motor system is within normal limits. EXTREMITIES: No cyanosis, no clubbing. The patient has both upper and lower extremity edema, 2 to 3+ and also the patient has a left-sided weakness with contracture of the left hand. MEDICATIONS: His current medications include as follows, acetylcysteine inhaler 4 mL every 6 hours, doxycycline 100 mg IV piggyback every 12 hours, DuoNeb inhaler, subcu heparin 5000 units subcu every 8 hours, Novolin R for sliding scale, Protonix 20 mg p.o. daily, Rocephin 1 gm daily, Solu-Medrol 20 mg IV every 12 hours, Tylenol, Xanax 0.25 mg p.o. every 12 hours. LABORATORY DATA: Include as follows: As of 11/24/2017, ABG, pH 7.27, pCO2 of 85, pO2 of 59, bicarb is 31.3. BiPAP, FiO2 50%, inspiratory rate 12 and expiratory rate 6. Other laboratory data as of 11/24/2017, WBC 10.1, hemoglobin 9.5, hematocrit is 29.4, platelets 164. 38. ABG, repeat one 7.19, pCO2 of 109, bicarb is 31, and saturation 79.9. Sodium 139, chloride 99, glucose 135, lactic acid 0.8. As of 11/26/2017, WBC 4.2, hemoglobin 9.2, hematocrit 28.3, platelets 141. Sodium 137, potassium 5.1, chloride 94, CO2 of 33, BUN 28, creatinine 3.4, glucose 126, calcium 8.6, phosphorus 4.9, and magnesium 2.2. Total bili 0.6, AST 22, ALT 18, alkaline phosphatase of 111, total protein 6.5, albumin is 3.1. Blood culture x2 negative from 11/24/2017. Sputum culture is pending. MRSA screening was negative. Chest x-ray as of 11/24/2017, poor inspiration with low lung volumes and crowded bronchovascular markings, pulmonary vascular congestive changes with bilateral lower lobe alveolar type infiltrates and bilateral effusions, right larger than the left. CT of the head as of 11/24/2017, impression, nonspecific white matter changes, acute infarction, may be CT occult within the first 24 hours. If focal deficit persist, consider followup CT or MRI for further evaluation of sinus disease. IMPRESSION: In summary, Mr. Gonzales is a 67 years old elderly [place] male with a history of hypertension, diabetes, coronary artery disease, status post coronary artery bypass graft, cerebrovascular accident with left-sided weakness, end-stage renal disease, gastrointestinal bleed, status post EGD, status post pacemaker placement about a week ago who was discharged home last week on Sunday, and now the patient was admitted on Sunday night with shortness of breath and respiratory failure, initially on BiPAP. Chest x-ray consistent with pulmonary vascular congestion. 1. End-stage renal disease. 2. Fluid overload. 3. Status post acute respiratory failure, hypercapnic. 4. Hypertension. 5. Diabetes. PLAN: We will schedule for hemodialysis today, and we will try to ultrafiltrate as much as the patient can tolerate, 3 to 3.5 liters as tolerated, and also we will give another dialysis in a.m. to keep his outpatient dialysis schedule. Continue his current medication. Restrict fluids to 1 liter per day and also continue Renvela 800 mg p.o. t.i.d. and also Nephrocaps 1 tablet daily and also continue Protonix. Thank you for allowing me to participate in your patient's care. Martin Ortiz MD
[2017-11-27 06:45] LABS: ALBUMIN 3.2 g/dL (3.5-5.0); CALCIUM 8.8 mg/dl (8.6-10.4)
[2017-11-27 08:27] LABS: BANDS 7 % (0-2); LYMPHOCYTE 6 % (20-40); MONOCYTE 6 % (0-10); MYELOCYTE 1 % (0-0); NEUTROPHIL 80 % (50-75); PLATELET ESTIMATE NORMAL (NORMAL); TOTAL CELLS COUNTED 100
[2017-11-27 08:28] LABS: ANISOCYTOSIS MODERATE
[2017-11-27 08:29] LABS: POIKILOCYTOSIS SLIGHT
[2017-11-27 08:30] LABS: OVALOCYTES SLIGHT; TOXIC GRANULATION PRESENT
[2017-11-27] MEDS: (Novolin R) Insulin Human Regular 100 units/ml vial SC SCH ×4 (08:36→21:29)
[2017-11-27] MEDS ORDERED: EPOETIN ALFA 10,000 UNIT/ML ML SC SCH (10:00)
[2017-11-27] MEDS: MethylPREDNISolone 40 mg Vial IV SCH ×2 (10:05→21:08)
[2017-11-27] MEDS: cefTRIAXone IV 1 gm in Dextros 50 ML IVPB SCH (10:05)
[2017-11-27] MEDS: Pantoprazole 20 mg EC Tab PO SCH (10:06)
--- NOTE | 2017-11-27 10:14 | CP.PCM.PN ---
Subjective - Date & Time of Evaluation Date of Evaluation: 11/27/17 Time of Evaluation: 08:00 - Subjective Subjective: c/o cough and wheezing no fever awake alert NAD Objective - Vital Signs/Intake and Output Vital Signs (last 24 hours): Temp Pulse Resp BP Pulse Ox 97.5 F L 80 14 141/34 L 98 11/27/17 08:00 11/27/17 09:01 11/27/17 09:01 11/27/17 09:01 11/27/17 09:01 Intake and Output: 11/27/17 11/27/17 06:59 18:59 Intake Total 420 120 Output Total 0 0 Balance 420 120 - Medications Medications: Current Medications Acetaminophen (Tylenol 325mg Tab) 650 mg PO Q6 PRN PRN Reason: Pain or Fever Last Admin: 11/26/17 20:50 Dose: 650 mg Acetylcysteine (Acetylcysteine 20%) 4 ml INH RQ6 [facility] Last Admin: 11/27/17 07:55 Dose: 4 ml Albuterol/Ipratropium (Duoneb 3 Mg/0.5 Mg (3 Ml) Ud) 3 ml INH RQ6 [facility] Last Admin: 11/27/17 07:55 Dose: 3 ml Alprazolam (Xanax) 0.25 mg PO Q12H [facility] Last Admin: 11/27/17 10:04 Dose: 0.25 mg Epoetin Mario (Procrit) 10,000 unit SC TTS [facility] Heparin Sodium (Porcine) (Heparin) 5,000 units SC Q8 [facility] Last Admin: 11/27/17 06:10 Dose: 5,000 units Ceftriaxone Sodium (Rocephin Iv 1 Gm Duplex) 50 mls @ 100 mls/hr IVPB DAILY [facility] PRN Reason: Protocol Last Admin: 11/27/17 10:05 Dose: 100 mls/hr Doxycycline Hyclate 100 mg/ (Sodium Chloride) 100 mls @ 100 mls/hr IVPB Q12 [facility] PRN Reason: Protocol Last Admin: 11/27/17 10:04 Dose: 100 mls/hr Insulin Human Regular (Novolin R) 0 unit SC ACHS [facility] PRN Reason: Protocol Last Admin: 11/27/17 08:36 Dose: Not Given Methylprednisolone (Solu-Medrol) 20 mg IV Q12 [facility] Last Admin: 11/27/17 10:05 Dose: 20 mg Pantoprazole Sodium (Protonix Ec Tab) 20 mg PO DAILY [facility] Last Admin: 11/27/17 10:06 Dose: 20 mg Paricalcitol (Zemplar) 2 mcg IV TTS BELL - Labs Labs: 11/27/17 06:05 11/27/17 06:05 PT 11.2 SECONDS (9.7-12.2) 11/24/17 18:03 INR 1.0 11/24/17 18:03 APTT 38 SECONDS (21-34) H 11/24/17 18:03 - Constitutional Appears: Non-toxic, Chronically Ill - Head Exam Head Exam: NORMOCEPHALIC - Eye Exam Eye Exam: absent: Scleral icterus - ENT Exam ENT Exam: Mucous Membranes Dry - Neck Exam Neck Exam: absent: Lymphadenopathy - Respiratory Exam Respiratory Exam: Decreased Breath Sounds, Prolonged Expiratory Phase, Rhonchi - Cardiovascular Exam Cardiovascular Exam: REGULAR RHYTHM, +S1, +S2 - GI/Abdominal Exam GI & Abdominal Exam: Distended, Soft. absent: Tenderness - Rectal Exam Rectal Exam: Deferred - Exam Exam: Scrotal Swelling - Extremities Exam Extremities Exam: Pedal Edema. absent: Calf Tenderness, Tenderness - Back Exam Back Exam: absent: CVA tenderness (L), CVA tenderness (R) - Neurological Exam Neurological Exam: Alert, Awake, CN II-XII Intact, Oriented x3 Neuro motor strength exam: Left Upper Extremity: 0, Right Upper Extremity: 3, Left Lower Extremity: 0, Right Lower Extremity: 3 - Psychiatric Exam Psychiatric exam: Depressed - Skin Skin Exam: Dry Assessment and Plan (1) Atelectasis of right lung Status: Acute (2) Dyspnea Status: Acute (3) Hypercapnic respiratory failure Status: Acute (4) Syncope Status: Acute (5) ESRD (end stage renal disease) on dialysis Status: Chronic
--- NOTE | 2017-11-27 10:55 | CP.PCM.PN ---
Subjective - Date & Time of Evaluation Date of Evaluation: 11/27/17 Time of Evaluation: 10:55 - Subjective Subjective: pt is seen and examined, follow up consult is dictated #[id number] for hd today Objective - Vital Signs/Intake and Output Vital Signs (last 24 hours): Temp Pulse Resp BP Pulse Ox 97.5 F L 79 15 141/34 L 91 L 11/27/17 08:00 11/27/17 10:00 11/27/17 10:00 11/27/17 09:01 11/27/17 10:00 Intake and Output: 11/27/17 11/27/17 06:59 18:59 Intake Total 420 170 Output Total 0 0 Balance 420 170 - Medications Medications: Current Medications Acetaminophen (Tylenol 325mg Tab) 650 mg PO Q6 PRN PRN Reason: Pain or Fever Last Admin: 11/26/17 20:50 Dose: 650 mg Acetylcysteine (Acetylcysteine 20%) 4 ml INH RQ6 [facility] Last Admin: 11/27/17 07:55 Dose: 4 ml Albuterol/Ipratropium (Duoneb 3 Mg/0.5 Mg (3 Ml) Ud) 3 ml INH RQ6 [facility] Last Admin: 11/27/17 07:55 Dose: 3 ml Alprazolam (Xanax) 0.25 mg PO Q12H [facility] Last Admin: 11/27/17 10:04 Dose: 0.25 mg Epoetin Mario (Procrit) 10,000 unit SC TTS [facility] Heparin Sodium (Porcine) (Heparin) 5,000 units SC Q8 [facility] Last Admin: 11/27/17 06:10 Dose: 5,000 units Ceftriaxone Sodium (Rocephin Iv 1 Gm Duplex) 50 mls @ 100 mls/hr IVPB DAILY [facility] PRN Reason: Protocol Last Admin: 11/27/17 10:05 Dose: 100 mls/hr Doxycycline Hyclate 100 mg/ (Sodium Chloride) 100 mls @ 100 mls/hr IVPB Q12 [facility] PRN Reason: Protocol Last Admin: 11/27/17 10:04 Dose: 100 mls/hr Insulin Human Regular (Novolin R) 0 unit SC ACHS [facility] PRN Reason: Protocol Last Admin: 11/27/17 08:36 Dose: Not Given Methylprednisolone (Solu-Medrol) 20 mg IV Q12 [facility] Last Admin: 11/27/17 10:05 Dose: 20 mg Pantoprazole Sodium (Protonix Ec Tab) 20 mg PO DAILY [facility] Last Admin: 11/27/17 10:06 Dose: 20 mg Paricalcitol (Zemplar) 2 mcg IV TTS BELL - Labs Labs: 11/27/17 06:05 11/27/17 06:05 PT 11.2 SECONDS (9.7-12.2) 11/24/17 18:03 INR 1.0 11/24/17 18:03 APTT 38 SECONDS (21-34) H 11/24/17 18:03
--- NOTE | 2017-11-27 11:24 | CP.CCUPN ---
<Vicky De Oliveira - Last Filed: 11/27/17 11:21> CCU Subjective - Physician Review Subjective (Free Text): Patient seen and examined at bedside. No overnight events reported. No Complaints of headache today. His SOB is improved. ROS POSITIVE: SOB (improved) NEGATIVE: Fevers, chill, chest pain, palpitations, abdominal pain, nausea, vomiting, or changes in bowel habits. Patient does not make urine. CCU Objective - Vital Signs / Intake & Output Vital Signs (Last 4 hours): Vital Signs Temp Pulse Resp BP Pulse Ox 11/27/17 11:00 78 13 100 11/27/17 10:00 79 15 91 L 11/27/17 09:01 80 14 141/34 L 98 11/27/17 09:00 79 13 99 11/27/17 08:01 72 11 L 171/56 H 100 11/27/17 08:00 97.5 F L 72 8 L 100 11/27/17 07:56 73 Intake and Output (Last 8hrs): Intake & Output 11/26/17 11/27/17 11/27/17 22:59 06:59 14:59 Intake Total 570 50 270 Output Total 0 0 0 Balance 570 50 270 Weight 222 lb 10.67 oz 209 lb 7.026 oz Intake: Intake, IV Amount 200 150 Right Forearm 200 150 Oral 370 50 120 Output: Urine 0 0 0 Urine, Voided 0 0 0 Other: # Bowel Movements 0 - Physical Exam Head: Positive for: Atraumatic, Normocephalic Mouth: Positive for: Moist Mucous Membranes Neck: Positive for: Normal Range of Motion Respiratory/Chest: Positive for: Decreased Breath Sounds Cardiovascular: Positive for: Regular Rate and Rhythm Abdomen: Positive for: Normal Bowel Sounds Lower Extremity: Positive for: Edema Skin: Positive for: Warm Psychiatric: Positive for: Alert, Oriented x 3 - Medications Active Medications: Active Medications Generic Name Dose Route Start Last Admin Trade Name Freq PRN Reason Stop Dose Admin Acetaminophen 650 mg 11/26/17 09:48 11/26/17 20:50 Tylenol 325mg Tab PO 650 mg Q6 PRN Administration Pain or Fever Acetylcysteine 4 ml 11/25/17 10:00 11/27/17 07:55 Acetylcysteine 20% INH 4 ml RQ6 BELL Administration Albuterol/Ipratropium 3 ml 11/25/17 02:00 11/27/17 07:55 Duoneb 3 Mg/0.5 Mg (3 Ml) Ud INH 3 ml RQ6 BELL Administration Alprazolam 0.25 mg 11/26/17 22:00 11/27/17 10:04 Xanax PO 0.25 mg Q12H BELL Administration Epoetin Mario 10,000 unit 11/27/17 10:00 Procrit SC TTS BELL Heparin Sodium (Porcine) 5,000 units 11/24/17 23:30 11/27/17 06:10 Heparin SC 5,000 units Q8 BELL Administration Ceftriaxone Sodium 50 mls @ 100 mls/hr 11/27/17 10:00 11/27/17 10:05 Rocephin Iv 1 Gm Duplex IVPB 100 mls/hr DAILY BELL Administration Protocol Doxycycline Hyclate 100 mg/ 100 mls @ 100 mls/hr 11/26/17 22:00 11/27/17 10: 04 Sodium Chloride IVPB 100 mls/hr Q12 BELL Administration Protocol Insulin Human Regular 0 unit 11/26/17 16:30 11/27/17 08:36 Novolin R SC Not Given ACHS BELL Protocol Methylprednisolone 20 mg 11/26/17 10:00 11/27/17 10:05 Solu-Medrol IV 20 mg Q12 BELL Administration Pantoprazole Sodium 20 mg 11/25/17 10:45 11/27/17 10:06 Protonix Ec Tab PO 20 mg DAILY BELL Administration Paricalcitol 2 mcg 11/27/17 10:00 Zemplar IV TTS BELL - Patient Studies Lab Studies: Microbiology Studies 11/25/17 12:26 Gram Stain - Final Sputum Sputum Culture - Final Yeast Species 11/24/17 18:00 Blood Culture - Preliminary Blood NO GROWTH AFTER 48 HOURS 11/24/17 17:40 Blood Culture - Preliminary Blood NO GROWTH AFTER 48 HOURS 11/24/17 10:30 MRSA Culture (Admit) - Final Naris MRSA NOT DETECTED Lab Studies 11/27/17 11/27/17 11/27/17 Range/Units 07:20 06:05 06:05 WBC 5.9 (4.8-10.8) K/uL RBC 2.73 L (4.40-5.90) Mil/uL Hgb 9.2 L (12.0-18.0) g/dL Hct 27.8 L (35.0-51.0) % MCV 101.8 H (80.0-94.0) fL MCH 33.7 H (27.0-31.0) pg MCHC 33.1 (33.0-37.0) g/dL RDW 19.8 H (11.5-14.5) % Plt Count 154 (130-400) K/uL MPV 7.8 (7.2-11.7) fL Neut % (Auto) 88.0 H (50.0-75.0) % Lymph % (Auto) 6.0 L (20.0-40.0) % [place] % (Auto) 5.9 (0.0-10.0) % Eos % (Auto) 0.0 (0.0-4.0) % Baso % (Auto) 0.1 (0.0-2.0) % Neut # (Auto) 5.2 (1.8-7.0) K/uL Lymph # (Auto) 0.3 L (1.0-4.3) K/uL [place] # (Auto) 0.3 (0.0-0.8) K/uL Eos # (Auto) 0.0 (0.0-0.7) K/uL Baso # (Auto) 0.0 (0.0-0.2) K/uL Neutrophils % (Manual) 80 H (50-75) % Band Neutrophils % 7 H (0-2) % Lymphocytes % (Manual) 6 L (20-40) % Monocytes % (Manual) 6 (0-10) % Myelocytes % 1 H (0-0) % Toxic Granulation Present Platelet Estimate Normal (NORMAL) Poikilocytosis (manual Slight Anisocytosis (manual) Moderate Macrocytosis (manual) Moderate Ovalocytes Slight Sodium 139 (132-148) mmol/L Potassium 4.7 (3.6-5.2) mmol/L Chloride 96 L (98-107) mmol/L Carbon Dioxide 32 H (22-30) mmol/L Anion Gap 15 (10-20) BUN 21 H (9-20) mg/dL Creatinine 2.9 H (0.8-1.5) mg/dL Est GFR ( Amer) 27 Est GFR (Non-Af Amer) 22 POC Glucose (mg/dL) 138 H (65-110) mg/dL Random Glucose 138 H (75-110) mg/dL Calcium 8.8 (8.6-10.4) mg/dl Phosphorus 3.6 (2.5-4.5) mg/dL Magnesium 2.2 (1.6-2.3) mg/dL Total Bilirubin 0.5 (0.2-1.3) mg/dL AST 26 (17-59) U/L ALT 21 (21-72) U/L Alkaline Phosphatase 110 (38-126) U/L Total Protein 6.5 (6.3-8.3) g/dL Albumin 3.2 L (3.5-5.0) g/dL Globulin 3.3 (2.2-3.9) gm/dL Albumin/Globulin Ratio 1.0 (1.0-2.1) 11/26/17 11/26/17 Range/Units 21:01 16:11 WBC (4.8-10.8) K/uL RBC (4.40-5.90) Mil/uL Hgb (12.0-18.0) g/dL Hct (35.0-51.0) % MCV (80.0-94.0) fL MCH (27.0-31.0) pg MCHC (33.0-37.0) g/dL RDW (11.5-14.5) % Plt Count (130-400) K/uL MPV (7.2-11.7) fL Neut % (Auto) (50.0-75.0) % Lymph % (Auto) (20.0-40.0) % [place] % (Auto) (0.0-10.0) % Eos % (Auto) (0.0-4.0) % Baso % (Auto) (0.0-2.0) % Neut # (Auto) (1.8-7.0) K/uL Lymph # (Auto) (1.0-4.3) K/uL [place] # (Auto) (0.0-0.8) K/uL Eos # (Auto) (0.0-0.7) K/uL Baso # (Auto) (0.0-0.2) K/uL Neutrophils % (Manual) (50-75) % Band Neutrophils % (0-2) % Lymphocytes % (Manual) (20-40) % Monocytes % (Manual) (0-10) % Myelocytes % (0-0) % Toxic Granulation Platelet Estimate (NORMAL) Poikilocytosis (manual Anisocytosis (manual) Macrocytosis (manual) Ovalocytes Sodium (132-148) mmol/L Potassium (3.6-5.2) mmol/L Chloride (98-107) mmol/L Carbon Dioxide (22-30) mmol/L Anion Gap (10-20) BUN (9-20) mg/dL Creatinine (0.8-1.5) mg/dL Est GFR ( Amer) Est GFR (Non-Af Amer) POC Glucose (mg/dL) 161 H 142 H (65-110) mg/dL Random Glucose (75-110) mg/dL Calcium (8.6-10.4) mg/dl Phosphorus (2.5-4.5) mg/dL Magnesium (1.6-2.3) mg/dL Total Bilirubin (0.2-1.3) mg/dL AST (17-59) U/L ALT (21-72) U/L Alkaline Phosphatase (38-126) U/L Total Protein (6.3-8.3) g/dL Albumin (3.5-5.0) g/dL Globulin (2.2-3.9) gm/dL Albumin/Globulin Ratio (1.0-2.1) Laboratory Results - last 24 hr 11/26/17 11/26/17 11/27/17 16:11 21:01 06:05 WBC 5.9 RBC 2.73 L Hgb 9.2 L Hct 27.8 L MCV 101.8 H MCH 33.7 H MCHC 33.1 RDW 19.8 H Plt Count 154 MPV 7.8 Neut % (Auto) 88.0 H Lymph % (Auto) 6.0 L [place]bers[place] % (Auto) 5.9 Eos % (Auto) 0.0 Baso % (Auto) 0.1 Neut # (Auto) 5.2 Lymph # (Auto) 0.3 L [place] # (Auto) 0.3 Eos # (Auto) 0.0 Baso # (Auto) 0.0 Neutrophils % (Manual) 80 H Band Neutrophils % 7 H Lymphocytes % (Manual) 6 L Monocytes % (Manual) 6 Myelocytes % 1 H Toxic Granulation Present Platelet Estimate Normal Poikilocytosis (manual Slight Anisocytosis (manual) Moderate Macrocytosis (manual) Moderate Ovalocytes Slight Sodium Potassium Chloride Carbon Dioxide Anion Gap BUN Creatinine Est GFR ( Amer) Est GFR (Non-Af Amer) POC Glucose (mg/dL) 142 H 161 H Random Glucose Calcium Phosphorus Magnesium Total Bilirubin AST ALT Alkaline Phosphatase Total Protein Albumin Globulin Albumin/Globulin Ratio 11/27/17 11/27/17 06:05 07:20 WBC RBC Hgb Hct MCV MCH MCHC RDW Plt Count MPV Neut % (Auto) Lymph % (Auto) [place]bers[place] % (Auto) Eos % (Auto) Baso % (Auto) Neut # (Auto) Lymph # (Auto) [place] # (Auto) Eos # (Auto) Baso # (Auto) Neutrophils % (Manual) Band Neutrophils % Lymphocytes % (Manual) Monocytes % (Manual) Myelocytes % Toxic Granulation Platelet Estimate Poikilocytosis (manual Anisocytosis (manual) Macrocytosis (manual) Ovalocytes Sodium 139 Potassium 4.7 Chloride 96 L Carbon Dioxide 32 H Anion Gap 15 BUN 21 H Creatinine 2.9 H Est GFR ( Amer) 27 Est GFR (Non-Af Amer) 22 POC Glucose (mg/dL) 138 H Random Glucose 138 H Calcium 8.8 Phosphorus 3.6 Magnesium 2.2 Total Bilirubin 0.5 AST 26 ALT 21 Alkaline Phosphatase 110 Total Protein 6.5 Albumin 3.2 L Globulin 3.3 Albumin/Globulin Ratio 1.0 EKG/Cardiology Studies: Cardiology / EKG Studies 11/26/17 23:30 ELECTROCARDIOGRAM DAILY Comment: Mode Of Transportation: PORTABLE Reason For Exam: f/u Fingerstick Blood Sugar Results: 161 Review of Systems - Review of Systems All systems: reviewed and no additional remarkable complaints except (As per HPI ) Review of Systems: As per HPI Critical Care Progress Note - Nutrition Nutrition: Nutrition Category Date Time Status Renal Diet [DIET] Diets 11/26/17 Dinner Active Assessment/Plan - Assessment and Plan (Free Text) Assessment: 67-year-old male with end-stage renal disease on hemodialysis was transferred to ICU for hypercapnic respiratory failure and change in mental status Plan: Neuro: Head CT (10/25) 1. Nonspecific white matter changes. Acute infarction may be CT occult within first 24 hours. If a focal deficit persists, consider followup CT or MRI for further evaluation. 2. Sinus disease. 3. Incidental/non-acute findings are described above GSC 15 Sedation: None MSK Physical Therapy Cardio CAD, HTN Labile BP, Hold Anti-Hypertensives. Pulm A: Hypercapnic Res. Failure CXR (11/25): Loculated Right Pleural Effusion , Mod-Severe Pulm Congestion. Right Hilar Prominence, Cardiomegaly, Prominent consolidative changes seen within the right id to lower lung zone as well as the left lung bases. on 2.5L NC BiPAP PRN MucoMyst Q6H BELL DuoNeb Q6H BELL SoluMedrol 20 Q12 IVP Chest PT GI Protonix 20 PO Daily Nephro/electrolytes I/O: 475/0 HD today and tomorrow per Nephro ID Afebrile, No leukocytosis Ciprofloxacin 200 Q12H IVP Endo Insulin Low ISS Prophylaxis Heparin SC q8H Protonix 20 Daily Renal Diet. Dispo: Patient is medically stable to be transferred to med/surg floor. Patient seen and discussed with ICU Attending Vicky De Oliveira, PGY-1 <Joey Solares S - Last Filed: 11/27/17 17:57> CCU Objective - Vital Signs / Intake & Output Vital Signs (Last 4 hours): Vital Signs Temp Pulse Pulse Resp BP BP Pulse Ox 11/27/17 17:04 70 13 161/26 H 100 11/27/17 17:03 161/26 H 11/27/17 17:00 71 7 L 100 11/27/17 16:49 72 13 144/27 L 100 11/27/17 16:35 74 10 L 172/25 H 100 11/27/17 16:33 172/35 H 11/27/17 16:19 76 14 144/30 L 98 11/27/17 16:04 77 15 140/36 L 99 11/27/17 16:03 140/36 L 11/27/17 16:00 97.4 F L 81 6 L 100 11/27/17 15:48 75 15 145/35 L 100 11/27/17 15:34 77 4 L 143/32 L 143/35 L 100 11/27/17 15:18 79 3 L 164/39 H 164/39 H 100 11/27/17 15:03 80 7 L 138/39 L 138/39 L 100 11/27/17 15:00 79 10 L 98 11/27/17 14:49 79 7 L 142/37 L 142/37 L 99 11/27/17 14:33 97.4 F L 79 79 0 L 157/39 H 157/39 H 100 11/27/17 14:01 80 170/21 H 100 11/27/17 14:00 81 7 L 100 Intake and Output (Last 8hrs): Intake & Output 11/27/17 11/27/17 11/27/17 06:59 14:59 22:59 Intake Total 50 510 Output Total 0 0 0 Balance 50 510 0 Weight 209 lb 7.026 oz Intake: Intake, IV Amount 150 Right Forearm 150 Oral 50 360 Output: Urine 0 0 0 Urine, Voided 0 0 0 - Medications Active Medications: Active Medications Generic Name Dose Route Start Last Admin Trade Name Freq PRN Reason Stop Dose Admin Acetaminophen 650 mg 11/26/17 09:48 11/27/17 14:49 Tylenol 325mg Tab PO 650 mg Q6 PRN Administration Pain or Fever Acetylcysteine 4 ml 11/25/17 10:00 11/27/17 14:00 Acetylcysteine 20% INH 4 ml RQ6 BELL Administration Albuterol/Ipratropium 3 ml 11/25/17 02:00 11/27/17 14:00 Duoneb 3 Mg/0.5 Mg (3 Ml) Ud INH 3 ml RQ6 BELL Administration Alprazolam 0.25 mg 11/26/17 22:00 11/27/17 10:04 Xanax PO 0.25 mg Q12H BELL Administration Epoetin Mario 10,000 unit 11/27/17 15:15 11/27/17 15:22 Procrit IV 10,000 unit TTS BELL Administration Heparin Sodium (Porcine) 5,000 units 11/24/17 23:30 11/27/17 14:26 Heparin SC 5,000 units Q8 BELL Administration Ceftriaxone Sodium 50 mls @ 100 mls/hr 11/27/17 10:00 11/27/17 10:05 Rocephin Iv 1 Gm Duplex IVPB 100 mls/hr DAILY BELL Administration Protocol Doxycycline Hyclate 100 mg/ 100 mls @ 100 mls/hr 11/26/17 22:00 11/27/17 10: 04 Sodium Chloride IVPB 100 mls/hr Q12 BELL Administration Protocol Insulin Human Regular 0 unit 11/26/17 16:30 11/27/17 16:29 Novolin R SC Not Given ACHS BELL Protocol Methylprednisolone 20 mg 11/26/17 10:00 11/27/17 10:05 Solu-Medrol IV 20 mg Q12 BELL Administration Pantoprazole Sodium 20 mg 11/25/17 10:45 11/27/17 10:06 Protonix Ec Tab PO 20 mg DAILY BELL Administration Paricalcitol 2 mcg 11/27/17 10:00 11/27/17 15:23 Zemplar IV 2 mcg TTS BELL Administration - Patient Studies Lab Studies: Microbiology Studies 11/25/17 12:26 Gram Stain - Final Sputum Sputum Culture - Final Yeast Species 11/24/17 18:00 Blood Culture - Preliminary Blood NO GROWTH AFTER 48 HOURS 11/24/17 17:40 Blood Culture - Preliminary Blood NO GROWTH AFTER 48 HOURS Lab Studies 11/27/17 11/27/17 11/27/17 Range/Units 16:07 11:37 11:18 WBC (4.8-10.8) K/uL RBC (4.40-5.90) Mil/uL Hgb (12.0-18.0) g/dL Hct (35.0-51.0) % MCV (80.0-94.0) fL MCH (27.0-31.0) pg MCHC (33.0-37.0) g/dL RDW (11.5-14.5) % Plt Count (130-400) K/uL MPV (7.2-11.7) fL Neut % (Auto) (50.0-75.0) % Lymph % (Auto) (20.0-40.0) % [place] % (Auto) (0.0-10.0) % Eos % (Auto) (0.0-4.0) % Baso % (Auto) (0.0-2.0) % Neut # (Auto) (1.8-7.0) K/uL Lymph # (Auto) (1.0-4.3) K/uL [place] # (Auto) (0.0-0.8) K/uL Eos # (Auto) (0.0-0.7) K/uL Baso # (Auto) (0.0-0.2) K/uL Neutrophils % (Manual) (50-75) % Band Neutrophils % (0-2) % Lymphocytes % (Manual) (20-40) % Monocytes % (Manual) (0-10) % Myelocytes % (0-0) % Toxic Granulation Platelet Estimate (NORMAL) Poikilocytosis (manual Anisocytosis (manual) Macrocytosis (manual) Ovalocytes Puncture Site Rb pCO2 73 H* (35-45) mm/Hg pO2 117 H (80-100) mm/Hg HCO3 28.5 H (21-28) mmol/L ABG pH 7.26 L (7.35-7.45) ABG Total CO2 35.0 H (22-28) mmol/L ABG O2 Saturation 99.6 H (95-98) % ABG Base Excess 4.6 H (-2.0-3.0) mmol/L ABG Hemoglobin 8.5 L (11.7-17.4) g/dL ABG Carboxyhemoglobin 2.3 H (0.5-1.5) % POC ABG HHb (Measured) 0.4 (0.0-5.0) % ABG Methemoglobin 1.2 (0.0-3.0) % Esvin Test Na A-a O2 Difference 6.0 mm/Hg Respiratory Index 0.1 Hgb O2 Saturation 96.1 (95.0-98.0) % Liter Flow 3.0 FiO2 30.0 % Crit Value Called To Dr juan carlos solares Crit Value Called By Michelle marshall car worker Crit Value Read Back Y Blood Gas Notified Time 1210 Sodium (132-148) mmol/L Potassium (3.6-5.2) mmol/L Chloride (98-107) mmol/L Carbon Dioxide (22-30) mmol/L Anion Gap (10-20) BUN (9-20) mg/dL Creatinine (0.8-1.5) mg/dL Est GFR ( Amer) Est GFR (Non-Af Amer) POC Glucose (mg/dL) 143 H 189 H (65-110) mg/dL Random Glucose (75-110) mg/dL Calcium (8.6-10.4) mg/dl Phosphorus (2.5-4.5) mg/dL Magnesium (1.6-2.3) mg/dL Total Bilirubin (0.2-1.3) mg/dL AST (17-59) U/L ALT (21-72) U/L Alkaline Phosphatase (38-126) U/L Total Protein (6.3-8.3) g/dL Albumin (3.5-5.0) g/dL Globulin (2.2-3.9) gm/dL Albumin/Globulin Ratio (1.0-2.1) Procalcitonin (0.19-0.49) NG/ML Influenza Typ A,B (EIA) (NEGATIVE) RSV Antigen (NEGATIVE) 11/27/17 11/27/17 11/27/17 Range/Units 11:06 07:20 06:05 WBC (4.8-10.8) K/uL RBC (4.40-5.90) Mil/uL Hgb (12.0-18.0) g/dL Hct (35.0-51.0) % MCV (80.0-94.0) fL MCH (27.0-31.0) pg MCHC (33.0-37.0) g/dL RDW (11.5-14.5) % Plt Count (130-400) K/uL MPV (7.2-11.7) fL Neut % (Auto) (50.0-75.0) % Lymph % (Auto) (20.0-40.0) % [place] % (Auto) (0.0-10.0) % Eos % (Auto) (0.0-4.0) % Baso % (Auto) (0.0-2.0) % Neut # (Auto) (1.8-7.0) K/uL Lymph # (Auto) (1.0-4.3) K/uL [place] # (Auto) (0.0-0.8) K/uL Eos # (Auto) (0.0-0.7) K/uL Baso # (Auto) (0.0-0.2) K/uL Neutrophils % (Manual) (50-75) % Band Neutrophils % (0-2) % Lymphocytes % (Manual) (20-40) % Monocytes % (Manual) (0-10) % Myelocytes % (0-0) % Toxic Granulation Platelet Estimate (NORMAL) Poikilocytosis (manual Anisocytosis (manual) Macrocytosis (manual) Ovalocytes Puncture Site pCO2 (35-45) mm/Hg pO2 (80-100) mm/Hg HCO3 (21-28) mmol/L ABG pH (7.35-7.45) ABG Total CO2 (22-28) mmol/L ABG O2 Saturation (95-98) % ABG Base Excess (-2.0-3.0) mmol/L ABG Hemoglobin (11.7-17.4) g/dL ABG Carboxyhemoglobin (0.5-1.5) % POC ABG HHb (Measured) (0.0-5.0) % ABG Methemoglobin (0.0-3.0) % Esvin Test A-a O2 Difference mm/Hg Respiratory Index Hgb O2 Saturation (95.0-98.0) % Liter Flow FiO2 % Crit Value Called To Crit Value Called By Crit Value Read Back Blood Gas Notified Time Sodium 139 (132-148) mmol/L Potassium 4.7 (3.6-5.2) mmol/L Chloride 96 L (98-107) mmol/L Carbon Dioxide 32 H (22-30) mmol/L Anion Gap 15 (10-20) BUN 21 H (9-20) mg/dL Creatinine 2.9 H (0.8-1.5) mg/dL Est GFR ( Amer) 27 Est GFR (Non-Af Amer) 22 POC Glucose (mg/dL) 138 H (65-110) mg/dL Random Glucose 138 H (75-110) mg/dL Calcium 8.8 (8.6-10.4) mg/dl Phosphorus 3.6 (2.5-4.5) mg/dL Magnesium 2.2 (1.6-2.3) mg/dL Total Bilirubin 0.5 (0.2-1.3) mg/dL AST 26 (17-59) U/L ALT 21 (21-72) U/L Alkaline Phosphatase 110 (38-126) U/L Total Protein 6.5 (6.3-8.3) g/dL Albumin 3.2 L (3.5-5.0) g/dL Globulin 3.3 (2.2-3.9) gm/dL Albumin/Globulin Ratio 1.0 (1.0-2.1) Procalcitonin (0.19-0.49) NG/ML Influenza Typ A,B (EIA) Negative for flu a/b (NEGATIVE) RSV Antigen Negative (NEGATIVE) 11/27/17 11/27/17 11/26/17 Range/Units 06:05 06:05 21:01 WBC 5.9 (4.8-10.8) K/uL RBC 2.73 L (4.40-5.90) Mil/uL Hgb 9.2 L (12.0-18.0) g/dL Hct 27.8 L (35.0-51.0) % MCV 101.8 H (80.0-94.0) fL MCH 33.7 H (27.0-31.0) pg MCHC 33.1 (33.0-37.0) g/dL RDW 19.8 H (11.5-14.5) % Plt Count 154 (130-400) K/uL MPV 7.8 (7.2-11.7) fL Neut % (Auto) 88.0 H (50.0-75.0) % Lymph % (Auto) 6.0 L (20.0-40.0) % [place] % (Auto) 5.9 (0.0-10.0) % Eos % (Auto) 0.0 (0.0-4.0) % Baso % (Auto) 0.1 (0.0-2.0) % Neut # (Auto) 5.2 (1.8-7.0) K/uL Lymph # (Auto) 0.3 L (1.0-4.3) K/uL [place] # (Auto) 0.3 (0.0-0.8) K/uL Eos # (Auto) 0.0 (0.0-0.7) K/uL Baso # (Auto) 0.0 (0.0-0.2) K/uL Neutrophils % (Manual) 80 H (50-75) % Band Neutrophils % 7 H (0-2) % Lymphocytes % (Manual) 6 L (20-40) % Monocytes % (Manual) 6 (0-10) % Myelocytes % 1 H (0-0) % Toxic Granulation Present Platelet Estimate Normal (NORMAL) Poikilocytosis (manual Slight Anisocytosis (manual) Moderate Macrocytosis (manual) Moderate Ovalocytes Slight Puncture Site pCO2 (35-45) mm/Hg pO2 (80-100) mm/Hg HCO3 (21-28) mmol/L ABG pH (7.35-7.45) ABG Total CO2 (22-28) mmol/L ABG O2 Saturation (95-98) % ABG Base Excess (-2.0-3.0) mmol/L ABG Hemoglobin (11.7-17.4) g/dL ABG Carboxyhemoglobin (0.5-1.5) % POC ABG HHb (Measured) (0.0-5.0) % ABG Methemoglobin (0.0-3.0) % Esvin Test A-a O2 Difference mm/Hg Respiratory Index Hgb O2 Saturation (95.0-98.0) % Liter Flow FiO2 % Crit Value Called To Crit Value Called By Crit Value Read Back Blood Gas Notified Time Sodium (132-148) mmol/L Potassium (3.6-5.2) mmol/L Chloride (98-107) mmol/L Carbon Dioxide (22-30) mmol/L Anion Gap (10-20) BUN (9-20) mg/dL Creatinine (0.8-1.5) mg/dL Est GFR ( Amer) Est GFR (Non-Af Amer) POC Glucose (mg/dL) 161 H (65-110) mg/dL Random Glucose (75-110) mg/dL Calcium (8.6-10.4) mg/dl Phosphorus (2.5-4.5) mg/dL Magnesium (1.6-2.3) mg/dL Total Bilirubin (0.2-1.3) mg/dL AST (17-59) U/L ALT (21-72) U/L Alkaline Phosphatase (38-126) U/L Total Protein (6.3-8.3) g/dL Albumin (3.5-5.0) g/dL Globulin (2.2-3.9) gm/dL Albumin/Globulin Ratio (1.0-2.1) Procalcitonin 3.73 H (0.19-0.49) NG/ML Influenza Typ A,B (EIA) (NEGATIVE) RSV Antigen (NEGATIVE) Laboratory Results - last 24 hr 11/26/17 11/27/17 11/27/17 21:01 06:05 06:05 WBC 5.9 RBC 2.73 L Hgb 9.2 L Hct 27.8 L MCV 101.8 H MCH 33.7 H MCHC 33.1 RDW 19.8 H Plt Count 154 MPV 7.8 Neut % (Auto) 88.0 H Lymph % (Auto) 6.0 L [place] % (Auto) 5.9 Eos % (Auto) 0.0 Baso % (Auto) 0.1 Neut # (Auto) 5.2 Lymph # (Auto) 0.3 L [place] # (Auto) 0.3 Eos # (Auto) 0.0 Baso # (Auto) 0.0 Neutrophils % (Manual) 80 H Band Neutrophils % 7 H Lymphocytes % (Manual) 6 L Monocytes % (Manual) 6 Myelocytes % 1 H Toxic Granulation Present Platelet Estimate Normal Poikilocytosis (manual Slight Anisocytosis (manual) Moderate Macrocytosis (manual) Moderate Ovalocytes Slight Puncture Site pCO2 pO2 HCO3 ABG pH ABG Total CO2 ABG O2 Saturation ABG Base Excess ABG Hemoglobin ABG Carboxyhemoglobin POC ABG HHb (Measured) ABG Methemoglobin Esvin Test A-a O2 Difference Respiratory Index Hgb O2 Saturation Liter Flow FiO2 Crit Value Called To Crit Value Called By Crit Value Read Back Blood Gas Notified Time Sodium Potassium Chloride Carbon Dioxide Anion Gap BUN Creatinine Est GFR ( Amer) Est GFR (Non-Af Amer) POC Glucose (mg/dL) 161 H Random Glucose Calcium Phosphorus Magnesium Total Bilirubin AST ALT Alkaline Phosphatase Total Protein Albumin Globulin Albumin/Globulin Ratio Procalcitonin 3.73 H Influenza Typ A,B (EIA) RSV Antigen 11/27/17 11/27/17 11/27/17 06:05 07:20 11:06 WBC RBC Hgb Hct MCV MCH MCHC RDW Plt Count MPV Neut % (Auto) Lymph % (Auto) [place] % (Auto) Eos % (Auto) Baso % (Auto) Neut # (Auto) Lymph # (Auto) [place] # (Auto) Eos # (Auto) Baso # (Auto) Neutrophils % (Manual) Band Neutrophils % Lymphocytes % (Manual) Monocytes % (Manual) Myelocytes % Toxic Granulation Platelet Estimate Poikilocytosis (manual Anisocytosis (manual) Macrocytosis (manual) Ovalocytes Puncture Site pCO2 pO2 HCO3 ABG pH ABG Total CO2 ABG O2 Saturation ABG Base Excess ABG Hemoglobin ABG Carboxyhemoglobin POC ABG HHb (Measured) ABG Methemoglobin Esvin Test A-a O2 Difference Respiratory Index Hgb O2 Saturation Liter Flow FiO2 Crit Value Called To Crit Value Called By Crit Value Read Back Blood Gas Notified Time Sodium 139 Potassium 4.7 Chloride 96 L Carbon Dioxide 32 H Anion Gap 15 BUN 21 H Creatinine 2.9 H Est GFR ( Amer) 27 Est GFR (Non-Af Amer) 22 POC Glucose (mg/dL) 138 H Random Glucose 138 H Calcium 8.8 Phosphorus 3.6 Magnesium 2.2 Total Bilirubin 0.5 AST 26 ALT 21 Alkaline Phosphatase 110 Total Protein 6.5 Albumin 3.2 L Globulin 3.3 Albumin/Globulin Ratio 1.0 Procalcitonin Influenza Typ A,B (EIA) Negative for flu a/b RSV Antigen Negative 11/27/17 11/27/17 11/27/17 11:18 11:37 16:07 WBC RBC Hgb Hct MCV MCH MCHC RDW Plt Count MPV Neut % (Auto) Lymph % (Auto) [place] % (Auto) Eos % (Auto) Baso % (Auto) Neut # (Auto) Lymph # (Auto) [place] # (Auto) Eos # (Auto) Baso # (Auto) Neutrophils % (Manual) Band Neutrophils % Lymphocytes % (Manual) Monocytes % (Manual) Myelocytes % Toxic Granulation Platelet Estimate Poikilocytosis (manual Anisocytosis (manual) Macrocytosis (manual) Ovalocytes Puncture Site Rb pCO2 73 H* pO2 117 H HCO3 28.5 H ABG pH 7.26 L ABG Total CO2 35.0 H ABG O2 Saturation 99.6 H ABG Base Excess 4.6 H ABG Hemoglobin 8.5 L ABG Carboxyhemoglobin 2.3 H POC ABG HHb (Measured) 0.4 ABG Methemoglobin 1.2 Esvin Test Na A-a O2 Difference 6.0 Respiratory Index 0.1 Hgb O2 Saturation 96.1 Liter Flow 3.0 FiO2 30.0 Crit Value Called To Dr juan carlos solares Crit Value Called By Michelle marshall car worker Crit Value Read Back Y Blood Gas Notified Time 1210 Sodium Potassium Chloride Carbon Dioxide Anion Gap BUN Creatinine Est GFR ( Amer) Est GFR (Non-Af Amer) POC Glucose (mg/dL) 189 H 143 H Random Glucose Calcium Phosphorus Magnesium Total Bilirubin AST ALT Alkaline Phosphatase Total Protein Albumin Globulin Albumin/Globulin Ratio Procalcitonin Influenza Typ A,B (EIA) RSV Antigen EKG/Cardiology Studies: Cardiology / EKG Studies 11/26/17 23:30 ELECTROCARDIOGRAM DAILY Comment: Mode Of Transportation: PORTABLE Reason For Exam: f/u Critical Care Progress Note - Nutrition Nutrition: Nutrition Category Date Time Status Renal Diet [DIET] Diets 11/26/17 Dinner Active Assessment/Plan (1) Hypercapnic respiratory failure Current Visit: Yes Status: Acute Comment: right lung collapse Mucomyst, nebulizer treatment and chest PT. If no change will consider bronchoscopy Continue BiPAP as needed Hemodialysis GI prophylaxis (2) ESRD (end stage renal disease) on dialysis Current Visit: Yes Status: Chronic (3) CAD (coronary artery disease) of artery bypass graft Current Visit: No Status: Acute (4) COPD (chronic obstructive pulmonary disease) Current Visit: No Status: Acute Attending/Attestation - Attestation I have personally seen and examined this patient.: Yes I have fully participated in the care of the patient.: Yes I have reviewed all pertinent clinical information: Yes Notes (Text): 11/27/17 17:56 Patient seen and examined in the intensive care unit. Patient is awake and responsive Patient is still wheezing Started on IV steroids Continue nebulizer treatment Continue hemodialysis BiPAP as needed Stable for transfer to floor
[2017-11-27 11:28] LABS: INFLUENZA A B NEGATIVE FOR FLU A/B (NEGATIVE)
[2017-11-27 12:10] LABS: ARTERIAL BLOOD GAS HCO3 28.5 mmol/L (21-28); ARTERIAL BLOOD GAS HEMOGLOBIN 8.5 g/dL (11.7-17.4); ARTERIAL BLOOD GAS O2 SAT 99.6 % (95-98); ARTERIAL BLOOD GAS PCO2 73 mm/Hg (35-45); ARTERIAL BLOOD GAS PH 7.26 (7.35-7.45); ARTERIAL BLOOD GAS PO2 117 mm/Hg (80-100)
--- NOTE | 2017-11-27 12:41 | CARD ---
APPROVED REPORT EKG Measurement Heart [id number] <Conclusion> Normal sinus rhythm Right bundle branch block T wave abnormality, consider lateral ischemia Abnormal ECG
--- NOTE | 2017-11-27 12:44 | PN ---
DATE: 11/27/2017 FOLLOWUP RENAL CONSULTATION The patient is located in ICU, bed 3. REQUESTED BY: Theodore Lucas MD REASON FOR FOLLOWUP: End-stage renal disease, fluid overload, and respiratory failure. SUBJECTIVE: Mr. Gonzales is a 67-year-old elderly [place] male with history of longstanding hypertension, diabetes, coronary artery disease, status post CABG, CVA with left-sided weakness, end-stage renal disease, status post upper GI bleed, requiring multiple transfusions, status post EGD and a pacemaker placement about one week ago who was admitted now after dialysis on Sunday night with respiratory failure and hypercarbic acute respiratory failure. The patient was initially on BiPAP. The patient was given extra dialysis for fluid overload yesterday. The patient is feeling slightly better today, not in distress. No chest pain, no palpitation, no cough. No abdominal pain. No nausea, vomiting, or diarrhea. PHYSICAL EXAMINATION: VITAL SIGNS: This morning as follows: Blood pressure 141/34, pulse 80, respirations 14, and temperature 97.5, saturation 98%. GENERAL: Mr. Gonzales is a 67-year-old elderly obese male, moderately built, moderately nourished, not in distress. HEENT: Pupils normal and reactive to light and accommodation. Conjunctivae pink. Sclerae anicteric. Tongue is moist. NECK: Trachea is midline. LUNGS: Symmetric on both sides. Bilateral breath sounds present. Basal crackles present. CVS: [place] at the fifth intercostal space, midclavicular line. S1, S2 audible. No murmur or gallop. The patient has a midsternal scar present from the previous CABG. ABDOMEN: Soft, tympanic. No guarding. No rigidity. No hepatosplenomegaly. 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 Nonfocal neuro examination except left-sided weakness, which is chronic. EXTREMITIES: No cyanosis, no clubbing. The patient has 2+ edema on both lower extremities. CURRENT MEDICATIONS: Include as follows: Acetylcysteine 4 mL every 6 hours, doxycycline 100 mg IV daily, DuoNeb inhaler, subcu heparin 5000 units every 8 hours, Novolin R for sliding scale, Procrit 10,000 units three times a week, Protonix 20 mg p.o. daily, Rocephin 1 gm daily, Solu-Medrol 20 mg IV every 12 hours, Tylenol, Xanax, and Zemplar. LABORATORY DATA: This morning as follows: 11/27/2017, WBC 5.9, hemoglobin 9.8, hematocrit 27.8, platelets 154, neutrophils 8, bands 7, lymph 6, monos 6, toxic granulation 1. Sodium 139, potassium 4.7, chloride 96, CO2 32, BUN 21, creatinine 2.9, glucose 138, calcium 8.8, phosphorus 3.6, magnesium 2.2, bili 0.5, AST 26, ALT 21, alkaline phosphatase 110, total protein 6.5, albumin is 3.2. ASSESSMENT AND PLAN: In summary, Mr. Gonzales is a 67-year-old elderly [place] male with a history of hypertension, diabetes, hyperlipidemia, coronary artery disease, status post coronary artery bypass graft, cerebrovascular accident with left-sided weakness, end-stage renal disease, status post gastrointestinal bleed upper, status post esophagogastroduodenoscopy, and status post pacemaker placement, who was admitted with hypercarbic acute respiratory failure and fluid overload. 1. End-stage renal disease. Continue hemodialysis three times a week Sunday, , Sunday and we will try to ultrafiltrate as much as the patient can tolerate. 2. Anemia secondary to recent gastrointestinal bleed and end-stage renal disease. 3. Congestive heart failure. 4. Coronary artery disease, status post coronary artery bypass graft, asymptomatic at this time. 5. Status post acute respiratory failure. Continue Solu-Medrol and DuoNeb inhaler as per Pulmonary. 6. Restrict fluids to 1 liter per day. We will follow with you. Thank you for allowing me to participate in your patient's care. Martin Ortiz MD
[2017-11-27] MEDS: EPOETIN ALFA 10,000 UNIT/ML ML IV SCH (15:22)
[2017-11-27] MEDS: Paricalcitol 2 mcg/ml Inj IV SCH (15:23)
[2017-11-28] MEDS: Albuterol-Ipratrop 3 mg / 0.5 (3 ml) UD INH SCH ×4 (01:47→21:06)
[2017-11-28] MEDS: Acetylcysteine 20% Inhal Soln (4ml) INH SCH ×4 (01:47→21:07)
[2017-11-28] MEDS: (Novolin R) Insulin Human Regular 100 units/ml vial SC SCH ×4 (08:14→22:23)
[2017-11-28] MEDS: cefTRIAXone IV 1 gm in Dextros 50 ML IVPB SCH (10:00)
[2017-11-28] MEDS: Pantoprazole 20 mg EC Tab PO SCH (10:33)
[2017-11-28] MEDS: MethylPREDNISolone 40 mg Vial IV SCH ×2 (10:33→21:17)
--- NOTE | 2017-11-28 15:58 | CP.PCM.PN ---
Subjective - Date & Time of Evaluation Date of Evaluation: 11/28/17 Time of Evaluation: 12:45 - Subjective Subjective: Patient seen and examined at bedside. No acute events reported overnight. Patient's shortness of breath is again improved. Afebrile. Assessment and Plan: 1. Hypercapneic respiratory failure - ABG 11/27: 7.26/73/117/28.5 on FiO2 30% - BiPAP 2. COPD - duonebs - solumedrol -mucomyst Objective - Vital Signs/Intake and Output Vital Signs (last 24 hours): Temp Pulse Resp BP Pulse Ox 98.4 F 85 14 131/68 93 L 11/28/17 04:00 11/28/17 14:06 11/28/17 14:06 11/28/17 14:06 11/28/17 14:06 Intake and Output: 11/28/17 11/28/17 06:59 18:59 Intake Total 150 325 Output Total 0 0 Balance 150 325 - Medications Medications: Current Medications Acetaminophen (Tylenol 325mg Tab) 650 mg PO Q6 PRN PRN Reason: Pain or Fever Last Admin: 11/28/17 10:47 Dose: 650 mg Acetylcysteine (Acetylcysteine 20%) 4 ml INH RQ6 [facility] Last Admin: 11/28/17 13:00 Dose: 4 ml Albuterol/Ipratropium (Duoneb 3 Mg/0.5 Mg (3 Ml) Ud) 3 ml INH RQ6 [facility] Last Admin: 11/28/17 13:00 Dose: 3 ml Alprazolam (Xanax) 0.25 mg PO Q12H [facility] Last Admin: 11/28/17 10:36 Dose: 0.25 mg Epoetin Mario (Procrit) 10,000 unit IV TTS [facility] Last Admin: 11/27/17 15:22 Dose: 10,000 unit Ceftriaxone Sodium (Rocephin Iv 1 Gm Duplex) 50 mls @ 100 mls/hr IVPB DAILY [facility] PRN Reason: Protocol Last Admin: 11/28/17 10:00 Dose: 100 mls/hr Doxycycline Hyclate 100 mg/ (Sodium Chloride) 100 mls @ 100 mls/hr IVPB Q12 [facility] PRN Reason: Protocol Last Admin: 11/28/17 10:32 Dose: 100 mls/hr Insulin Human Regular (Novolin R) 0 unit SC ACHS [facility] PRN Reason: Protocol Last Admin: 11/28/17 12:00 Dose: Not Given Methylprednisolone (Solu-Medrol) 20 mg IV Q12 [facility] Last Admin: 11/28/17 10:33 Dose: 20 mg Pantoprazole Sodium (Protonix Ec Tab) 20 mg PO DAILY [facility] Last Admin: 11/28/17 10:33 Dose: 20 mg Paricalcitol (Zemplar) 2 mcg IV TTS [facility] Last Admin: 11/27/17 15:23 Dose: 2 mcg - Labs Labs: 11/27/17 06:05 11/27/17 06:05 PT 11.2 SECONDS (9.7-12.2) 11/24/17 18:03 INR 1.0 11/24/17 18:03 APTT 38 SECONDS (21-34) H 11/24/17 18:03 Assessment and Plan (1) Hypercapnic respiratory failure Status: Acute (2) ESRD (end stage renal disease) on dialysis Status: Chronic (3) CAD (coronary artery disease) of artery bypass graft Status: Acute (4) COPD (chronic obstructive pulmonary disease) Status: Acute
--- NOTE | 2017-11-28 16:05 | CP.PCM.PN ---
Subjective - Date & Time of Evaluation Date of Evaluation: 11/28/17 Time of Evaluation: 09:00 - Subjective Subjective: seen and examined at bedside. No acute events reported overnight. Patient's shortness of breath is again improved. Afebrile. Objective - Vital Signs/Intake and Output Vital Signs (last 24 hours): Temp Pulse Resp BP Pulse Ox 98.4 F 85 14 131/68 93 L 11/28/17 04:00 11/28/17 14:06 11/28/17 14:06 11/28/17 14:06 11/28/17 14:06 Intake and Output: 11/28/17 11/28/17 06:59 18:59 Intake Total 150 325 Output Total 0 0 Balance 150 325 - Medications Medications: Current Medications Acetaminophen (Tylenol 325mg Tab) 650 mg PO Q6 PRN PRN Reason: Pain or Fever Last Admin: 11/28/17 10:47 Dose: 650 mg Acetylcysteine (Acetylcysteine 20%) 4 ml INH RQ6 [facility] Last Admin: 11/28/17 13:00 Dose: 4 ml Albuterol/Ipratropium (Duoneb 3 Mg/0.5 Mg (3 Ml) Ud) 3 ml INH RQ6 [facility] Last Admin: 11/28/17 13:00 Dose: 3 ml Alprazolam (Xanax) 0.25 mg PO Q12H [facility] Last Admin: 11/28/17 10:36 Dose: 0.25 mg Epoetin Mario (Procrit) 10,000 unit IV TTS [facility] Last Admin: 11/27/17 15:22 Dose: 10,000 unit Ceftriaxone Sodium (Rocephin Iv 1 Gm Duplex) 50 mls @ 100 mls/hr IVPB DAILY [facility] PRN Reason: Protocol Last Admin: 11/28/17 10:00 Dose: 100 mls/hr Doxycycline Hyclate 100 mg/ (Sodium Chloride) 100 mls @ 100 mls/hr IVPB Q12 [facility] PRN Reason: Protocol Last Admin: 11/28/17 10:32 Dose: 100 mls/hr Insulin Human Regular (Novolin R) 0 unit SC ACHS [facility] PRN Reason: Protocol Last Admin: 11/28/17 12:00 Dose: Not Given Methylprednisolone (Solu-Medrol) 20 mg IV Q12 [facility] Last Admin: 11/28/17 10:33 Dose: 20 mg Pantoprazole Sodium (Protonix Ec Tab) 20 mg PO DAILY [facility] Last Admin: 11/28/17 10:33 Dose: 20 mg Paricalcitol (Zemplar) 2 mcg IV TTS [facility] Last Admin: 11/27/17 15:23 Dose: 2 mcg - Labs Labs: 11/27/17 06:05 11/27/17 06:05 PT 11.2 SECONDS (9.7-12.2) 11/24/17 18:03 INR 1.0 11/24/17 18:03 APTT 38 SECONDS (21-34) H 11/24/17 18:03 - Constitutional Appears: Non-toxic, Chronically Ill - Head Exam Head Exam: NORMOCEPHALIC - Eye Exam Eye Exam: PERRL - ENT Exam ENT Exam: Mucous Membranes Dry - Neck Exam Neck Exam: absent: Lymphadenopathy - Respiratory Exam Respiratory Exam: Decreased Breath Sounds - Cardiovascular Exam Cardiovascular Exam: REGULAR RHYTHM - GI/Abdominal Exam GI & Abdominal Exam: Distended - Rectal Exam Rectal Exam: Deferred - Exam Exam: NORMAL INSPECTION - Extremities Exam Extremities Exam: Pedal Edema. absent: Calf Tenderness, Tenderness - Back Exam Back Exam: absent: CVA tenderness (L), CVA tenderness (R) - Neurological Exam Neurological Exam: Alert, Awake, Oriented x3 Neuro motor strength exam: Left Upper Extremity: 0, Left Lower Extremity: 0 - Psychiatric Exam Psychiatric exam: Depressed - Skin Skin Exam: Dry Assessment and Plan (1) Atelectasis of right lung Status: Acute (2) Dyspnea Status: Acute (3) Hypercapnic respiratory failure Status: Acute (4) Syncope Status: Acute (5) ESRD (end stage renal disease) on dialysis Status: Chronic
--- NOTE | 2017-11-28 19:01 | CP.PCM.PN ---
Subjective - Date & Time of Evaluation Date of Evaluation: 11/28/17 Time of Evaluation: 19:00 - Subjective Subjective: pt is seen and examined, follow up consult is dictated #[id number] Objective - Vital Signs/Intake and Output Vital Signs (last 24 hours): Temp Pulse Resp BP Pulse Ox 98.6 F 78 6 L 128/37 L 96 11/28/17 16:00 11/28/17 18:05 11/28/17 18:05 11/28/17 18:05 11/28/17 18:05 Intake and Output: 11/28/17 11/29/17 18:59 06:59 Intake Total 625 Output Total 0 Balance 625 - Medications Medications: Current Medications Acetaminophen (Tylenol 325mg Tab) 650 mg PO Q6 PRN PRN Reason: Pain or Fever Last Admin: 11/28/17 10:47 Dose: 650 mg Acetylcysteine (Acetylcysteine 20%) 4 ml INH RQ6 [facility] Last Admin: 11/28/17 13:00 Dose: 4 ml Albuterol/Ipratropium (Duoneb 3 Mg/0.5 Mg (3 Ml) Ud) 3 ml INH RQ6 [facility] Last Admin: 11/28/17 13:00 Dose: 3 ml Alprazolam (Xanax) 0.25 mg PO Q12H [facility] Last Admin: 11/28/17 10:36 Dose: 0.25 mg Epoetin Mario (Procrit) 10,000 unit IV TTS [facility] Last Admin: 11/27/17 15:22 Dose: 10,000 unit Heparin Sodium (Porcine) (Heparin) 5,000 units SC Q12 [facility] Ceftriaxone Sodium (Rocephin Iv 1 Gm Duplex) 50 mls @ 100 mls/hr IVPB DAILY [facility] PRN Reason: Protocol Last Admin: 11/28/17 10:00 Dose: 100 mls/hr Doxycycline Hyclate 100 mg/ (Sodium Chloride) 100 mls @ 100 mls/hr IVPB Q12 [facility] PRN Reason: Protocol Last Admin: 11/28/17 10:32 Dose: 100 mls/hr Insulin Human Regular (Novolin R) 0 unit SC ACHS [facility] PRN Reason: Protocol Last Admin: 11/28/17 17:00 Dose: Not Given Methylprednisolone (Solu-Medrol) 20 mg IV Q12 [facility] Last Admin: 05/09/18 10:33 Dose: 20 mg Pantoprazole Sodium (Protonix Ec Tab) 20 mg PO DAILY [facility] Last Admin: 11/28/17 10:33 Dose: 20 mg Paricalcitol (Zemplar) 2 mcg IV TTS [facility] Last Admin: 11/27/17 15:23 Dose: 2 mcg - Labs Labs: 11/27/17 06:05 11/27/17 06:05 PT 11.2 SECONDS (9.7-12.2) 11/24/17 18:03 INR 1.0 11/24/17 18:03 APTT 38 SECONDS (21-34) H 11/24/17 18:03
[2017-11-29] MEDS: Albuterol-Ipratrop 3 mg / 0.5 (3 ml) UD INH SCH ×4 (01:38→20:02)
[2017-11-29] MEDS: Acetylcysteine 20% Inhal Soln (4ml) INH SCH ×4 (01:38→20:02)
--- NOTE | 2017-11-29 04:29 | PN ---
DATE: 11/28/2017 FOLLOWUP RENAL CONSULTATION LOCATION: The patient is located in ICU, bed 3. REQUESTED BY: Theodore Lucas MD REASON FOR FOLLOWUP: Acute respiratory failure, CHF, end-stage renal disease, hypertension. HISTORY OF PRESENT ILLNESS: Mr. Gonzales is a 67-year-old obese [place] male with a history of longstanding hypertension, diabetes, end-stage renal disease, coronary artery disease, status post CABG, CVA with left-sided weakness with contracture of the left hand, status post GI bleed with multiple transfusion about 1 week ago, status post pacemaker placement also 1 week ago, was admitted after dialysis on Sunday11/24/2017 with chief complaints of respiratory distress and hypercarbia and requiring admission to ICU, initially treated with a BiPAP. The patient underwent extra hemodialysis on 11/26/2017, for fluid overload, and the patient is not in acute distress. No chest pain. No palpitation. No fever. No cough. The patient is very noncompliant with fluid intake and diet. PHYSICAL EXAMINATION: VITAL SIGNS: As follows: Blood pressure 128/37, pulse 78, respirations about 17, temperature 98.6, saturation 96% to 99%. Height 5 feet 6 inches, weight is 220 pounds. GENERAL: Mr. Gonzales is a 67 years old obese, [place] male, well-built, well-nourished, not in distress. HEENT: Pupils normal and reactive to light and accommodation. Conjunctivae pink. Sclerae anicteric. Tongue is moist. Trachea is midline. LUNGS: Symmetric on both sides. Bilateral basal crackles present. CVS: [place] at the fifth intercostal space, midclavicular line. S1, S2 audible. No murmur or gallop. ABDOMEN: Normal in appearance, soft, tympanic. No guarding. No rigidity. No hepatosplenomegaly. 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 Sensory system is grossly within normal limits. Motor system, left-sided weakness. EXTREMITIES: No cyanosis, no clubbing. The patient has 2+ edema in both lower extremities. MEDICATIONS: His current medications include as follows: Acetylcysteine 4 mL every 6 hours, doxycycline 100 mg every 12 hours, DuoNeb inhaler, heparin 5000 units subcu every 12 hours, Novolin R for sliding scale, Procrit 10,000 units three times a week, Protonix 20 mg p.o. daily, Rocephin 1 gm daily, Solu-Medrol 20 mg IV every 12 hours, Tylenol 650 mg p.o. every 6 hours, Xanax 0.25 mg p.o. every 12 hours, Zemplar 2 mcg three times a week. LABORATORY DATA: No new labs are available. Accu-Cheks 135, 150, and 188. I's and O's, intake is 660 and output is 3000 during hemodialysis yesterday. IMPRESSION: In summary, Mr. Gonzales is a 67-year-old elderly [place] male, with history of hypertension, diabetes, coronary artery disease, status post coronary artery bypass grafting, cerebrovascular accident with left-sided weakness, end-stage renal disease, fluid overload, hypercarbic respiratory failure, acute fluid overload. 1. End-stage renal disease. Continue hemodialysis three times a week, Sunday, , Sunday; and we will try to ultrafiltrate as much as patient can tolerate. 2. Anemia secondary to recent GI bleed and end-stage renal disease. Continue Procrit three times a week. 3. Fluid overload. 4. Status post hypercarbic respiratory failure. Restrict fluids to 1 liter per day. Continue his current medications. We will add Renvela 800 mg p.o. t.i.d., Nephro-Renaldo 1 tablet p.o. daily. We will follow with you. Thank you for allowing me to participate in your patient's care. Discussed with the patient's niece at bedside this evening. Martin Ortiz MD
[2017-11-29] MEDS: (Novolin R) Insulin Human Regular 100 units/ml vial SC SCH ×4 (08:26→21:28)
[2017-11-29] MEDS: Multivitamin Vitamin B Complex (Nephro-Vite) Tab PO SCH (08:29)
[2017-11-29] MEDS: Paricalcitol 2 mcg/ml Inj IV SCH (09:11)
[2017-11-29] MEDS: MethylPREDNISolone 40 mg Vial IV SCH ×2 (09:11→21:34)
[2017-11-29] MEDS: Pantoprazole 20 mg EC Tab PO SCH (09:12)
[2017-11-29] MEDS: cefTRIAXone IV 1 gm in Dextros 50 ML IVPB SCH (09:16)
--- NOTE | 2017-11-29 11:27 | CP.PCM.PN ---
Subjective - Date & Time of Evaluation Date of Evaluation: 11/29/17 Time of Evaluation: 11:26 - Subjective Subjective: pt is seen and examined, follow up consult is dictated #[id number] for hd today Objective - Vital Signs/Intake and Output Vital Signs (last 24 hours): Temp Pulse Resp BP Pulse Ox 98.4 F 81 12 139/37 L 100 11/29/17 08:00 11/29/17 08:00 11/29/17 08:00 11/29/17 04:00 11/29/17 08:00 Intake and Output: 11/29/17 11/29/17 06:59 18:59 Intake Total 200 175 Balance 200 175 - Medications Medications: Current Medications Acetaminophen (Tylenol 325mg Tab) 650 mg PO Q6 PRN PRN Reason: Pain or Fever Last Admin: 11/29/17 09:15 Dose: 650 mg Acetylcysteine (Acetylcysteine 20%) 4 ml INH RQ6 [facility] Last Admin: 11/29/17 09:01 Dose: 4 ml Albuterol/Ipratropium (Duoneb 3 Mg/0.5 Mg (3 Ml) Ud) 3 ml INH RQ6 [facility] Last Admin: 11/29/17 09:01 Dose: 3 ml Alprazolam (Xanax) 0.25 mg PO Q12H [facility] Last Admin: 11/29/17 09:12 Dose: 0.25 mg Epoetin Mario (Procrit) 10,000 unit IV TTS [facility] Last Admin: 11/27/17 15:22 Dose: 10,000 unit Heparin Sodium (Porcine) (Heparin) 5,000 units SC Q12 [facility] Last Admin: 11/29/17 09:11 Dose: 5,000 units Ceftriaxone Sodium (Rocephin Iv 1 Gm Duplex) 50 mls @ 100 mls/hr IVPB DAILY [facility] PRN Reason: Protocol Last Admin: 11/29/17 09:16 Dose: 100 mls/hr Doxycycline Hyclate 100 mg/ (Sodium Chloride) 100 mls @ 100 mls/hr IVPB Q12 [facility] PRN Reason: Protocol Last Admin: 11/29/17 09:16 Dose: 100 mls/hr Insulin Human Regular (Novolin R) 0 unit SC ACHS [facility] PRN Reason: Protocol Last Admin: 11/29/17 08:26 Dose: Not Given Methylprednisolone (Solu-Medrol) 20 mg IV Q12 [facility] Last Admin: 11/29/17 09:11 Dose: 20 mg Pantoprazole Sodium (Protonix Ec Tab) 20 mg PO DAILY [facility] Last Admin: 11/29/17 09:12 Dose: 20 mg Paricalcitol (Zemplar) 2 mcg IV TTS [facility] Last Admin: 11/29/17 09:11 Dose: 2 mcg Sevelamer Carbonate (Renvela) 800 mg PO TIDCC [facility] Last Admin: 11/29/17 08:29 Dose: 800 mg Vitamin B Complex/Vit C/Folic Acid (Nephro-Renaldo) 1 tab PO 0800 [facility] Last Admin: 11/29/17 08:29 Dose: 1 tab - Labs Labs: 11/27/17 06:05 11/27/17 06:05 PT 11.2 SECONDS (9.7-12.2) 11/24/17 18:03 INR 1.0 11/24/17 18:03 APTT 38 SECONDS (21-34) H 11/24/17 18:03
[2017-11-29] MEDS: EPOETIN ALFA 10,000 UNIT/ML ML IV SCH (13:17)
--- NOTE | 2017-11-29 17:49 | CP.PCM.PN ---
Subjective - Date & Time of Evaluation Date of Evaluation: 11/29/17 Time of Evaluation: 08:00 - Subjective Subjective: WEAK LETHARGIC BEDRIDDEN nad Objective - Vital Signs/Intake and Output Vital Signs (last 24 hours): Temp Pulse Resp BP Pulse Ox 98.5 F 81 9 L 129/45 L 100 11/29/17 16:00 11/29/17 16:35 11/29/17 16:35 11/29/17 16:35 11/29/17 16:35 Intake and Output: 11/29/17 11/29/17 06:59 18:59 Intake Total 200 175 Balance 200 175 - Medications Medications: Current Medications Acetaminophen (Tylenol 325mg Tab) 650 mg PO Q6 PRN PRN Reason: Pain or Fever Last Admin: 11/29/17 09:15 Dose: 650 mg Acetylcysteine (Acetylcysteine 20%) 4 ml INH RQ6 [facility] Last Admin: 11/29/17 13:40 Dose: 4 ml Albuterol/Ipratropium (Duoneb 3 Mg/0.5 Mg (3 Ml) Ud) 3 ml INH RQ6 [facility] Last Admin: 11/29/17 13:40 Dose: 3 ml Alprazolam (Xanax) 0.25 mg PO Q12H [facility] Last Admin: 11/29/17 09:12 Dose: 0.25 mg Epoetin Mario (Procrit) 10,000 unit IV TTS [facility] Last Admin: 11/29/17 13:17 Dose: 10,000 unit Heparin Sodium (Porcine) (Heparin) 5,000 units SC Q12 [facility] Last Admin: 11/29/17 09:11 Dose: 5,000 units Ceftriaxone Sodium (Rocephin Iv 1 Gm Duplex) 50 mls @ 100 mls/hr IVPB DAILY [facility] PRN Reason: Protocol Last Admin: 11/29/17 09:16 Dose: 100 mls/hr Doxycycline Hyclate 100 mg/ (Sodium Chloride) 100 mls @ 100 mls/hr IVPB Q12 [facility] PRN Reason: Protocol Last Admin: 11/29/17 09:16 Dose: 100 mls/hr Insulin Human Regular (Novolin R) 0 unit SC ACHS [facility] PRN Reason: Protocol Last Admin: 11/29/17 16:05 Dose: Not Given Methylprednisolone (Solu-Medrol) 20 mg IV Q12 [facility] Last Admin: 11/29/17 09:11 Dose: 20 mg Pantoprazole Sodium (Protonix Ec Tab) 20 mg PO DAILY [facility] Last Admin: 11/29/17 09:12 Dose: 20 mg Paricalcitol (Zemplar) 2 mcg IV TTS [facility] Last Admin: 11/29/17 09:11 Dose: 2 mcg Sevelamer Carbonate (Renvela) 800 mg PO TIDCC [facility] Last Admin: 11/29/17 16:05 Dose: 800 mg Vitamin B Complex/Vit C/Folic Acid (Nephro-Renaldo) 1 tab PO 0800 [facility] Last Admin: 11/29/17 08:29 Dose: 1 tab - Labs Labs: 11/27/17 06:05 11/27/17 06:05 PT 11.2 SECONDS (9.7-12.2) 11/24/17 18:03 INR 1.0 11/24/17 18:03 APTT 38 SECONDS (21-34) H 11/24/17 18:03 - Constitutional Appears: Non-toxic, Chronically Ill - Head Exam Head Exam: NORMOCEPHALIC - Eye Exam Eye Exam: PERRL. absent: Scleral icterus - ENT Exam ENT Exam: Mucous Membranes Dry - Neck Exam Neck Exam: absent: Lymphadenopathy - Respiratory Exam Respiratory Exam: Decreased Breath Sounds, Rhonchi - Cardiovascular Exam Cardiovascular Exam: REGULAR RHYTHM, +S1, +S2 - GI/Abdominal Exam GI & Abdominal Exam: Distended, Soft. absent: Tenderness - Rectal Exam Rectal Exam: Deferred - Exam Exam: NORMAL INSPECTION - Extremities Exam Extremities Exam: Pedal Edema - Back Exam Back Exam: absent: CVA tenderness (L), CVA tenderness (R) - Neurological Exam Neurological Exam: Alert, Awake, CN II-XII Intact Neuro motor strength exam: Left Upper Extremity: 0, Right Upper Extremity: 3, Left Lower Extremity: 0, Right Lower Extremity: 3 - Psychiatric Exam Psychiatric exam: Depressed Assessment and Plan (1) Atelectasis of right lung Status: Acute (2) Dyspnea Status: Acute (3) Hypercapnic respiratory failure Status: Acute (4) Syncope Status: Acute (5) ESRD (end stage renal disease) on dialysis Status: Chronic - Assessment and Plan (Free Text) Assessment: CONT IV ANTIBIOTICS PULM RE-EVAL
--- NOTE | 2017-11-29 18:33 | CP.PCM.PN ---
Subjective - Date & Time of Evaluation Date of Evaluation: 11/29/17 Time of Evaluation: 17:00 - Subjective Subjective: patient seen and examined complaining of constipation Denies shortness of breath, denies cough Afebrile Status post hemodialysis Objective - Vital Signs/Intake and Output Vital Signs (last 24 hours): Temp Pulse Resp BP Pulse Ox 98.5 F 81 9 L 129/45 L 100 11/29/17 16:00 11/29/17 16:35 11/29/17 16:35 11/29/17 16:35 11/29/17 16:35 Intake and Output: 11/29/17 11/29/17 06:59 18:59 Intake Total 200 425 Balance 200 425 - Medications Medications: Current Medications Acetaminophen (Tylenol 325mg Tab) 650 mg PO Q6 PRN PRN Reason: Pain or Fever Last Admin: 11/29/17 09:15 Dose: 650 mg Acetylcysteine (Acetylcysteine 20%) 4 ml INH RQ6 [facility] Last Admin: 11/29/17 13:40 Dose: 4 ml Albuterol/Ipratropium (Duoneb 3 Mg/0.5 Mg (3 Ml) Ud) 3 ml INH RQ6 [facility] Last Admin: 11/29/17 13:40 Dose: 3 ml Alprazolam (Xanax) 0.25 mg PO Q12H [facility] Last Admin: 11/29/17 09:12 Dose: 0.25 mg Epoetin Mario (Procrit) 10,000 unit IV TTS [facility] Last Admin: 11/29/17 13:17 Dose: 10,000 unit Heparin Sodium (Porcine) (Heparin) 5,000 units SC Q12 [facility] Last Admin: 11/29/17 09:11 Dose: 5,000 units Ceftriaxone Sodium (Rocephin Iv 1 Gm Duplex) 50 mls @ 100 mls/hr IVPB DAILY [facility] PRN Reason: Protocol Last Admin: 11/29/17 09:16 Dose: 100 mls/hr Doxycycline Hyclate 100 mg/ (Sodium Chloride) 100 mls @ 100 mls/hr IVPB Q12 [facility] PRN Reason: Protocol Last Admin: 11/29/17 09:16 Dose: 100 mls/hr Insulin Human Regular (Novolin R) 0 unit SC ACHS [facility] PRN Reason: Protocol Last Admin: 11/29/17 16:05 Dose: Not Given Methylprednisolone (Solu-Medrol) 20 mg IV Q12 [facility] Last Admin: 11/29/17 09:11 Dose: 20 mg Pantoprazole Sodium (Protonix Ec Tab) 20 mg PO DAILY [facility] Last Admin: 11/29/17 09:12 Dose: 20 mg Paricalcitol (Zemplar) 2 mcg IV TTS [facility] Last Admin: 11/29/17 09:11 Dose: 2 mcg Sevelamer Carbonate (Renvela) 800 mg PO TIDCC [facility] Last Admin: 11/29/17 16:05 Dose: 800 mg Vitamin B Complex/Vit C/Folic Acid (Nephro-Renaldo) 1 tab PO 0800 [facility] Last Admin: 11/29/17 08:29 Dose: 1 tab - Labs Labs: 11/27/17 06:05 11/27/17 06:05 PT 11.2 SECONDS (9.7-12.2) 11/24/17 18:03 INR 1.0 11/24/17 18:03 APTT 38 SECONDS (21-34) H 11/24/17 18:03 - Head Exam Head Exam: ATRAUMATIC, NORMOCEPHALIC - Eye Exam Eye Exam: Normal appearance - ENT Exam ENT Exam: Mucous Membranes Moist - Neck Exam Neck Exam: Normal Inspection - Respiratory Exam Respiratory Exam: Clear to Ausculation Bilateral - Cardiovascular Exam Cardiovascular Exam: REGULAR RHYTHM - GI/Abdominal Exam GI & Abdominal Exam: Soft, Normal Bowel Sounds - Extremities Exam Extremities Exam: Pedal Edema Assessment and Plan (1) Hypercapnic respiratory failure Assessment & Plan: Breathing much improved BiPAP at night Taper steroids Continue nebulizer treatment Stool softener Status: Acute (2) ESRD (end stage renal disease) on dialysis Status: Chronic (3) CAD (coronary artery disease) of artery bypass graft Status: Acute (4) COPD (chronic obstructive pulmonary disease) Status: Acute
[2017-11-30] MEDS: Acetylcysteine 20% Inhal Soln (4ml) INH SCH ×2 (02:04→19:00)
[2017-11-30] MEDS: Albuterol-Ipratrop 3 mg / 0.5 (3 ml) UD INH SCH (02:04)
[2017-11-30] MEDS: Hydrocortisone 2.5% Rectal Cream(30 gm) PR SCH ×3 (03:51→18:02)
[2017-11-30 07:28] LABS: BASO % 0.2 % (0.0-2.0); EOS % 0.1 % (0.0-4.0); HEMOGLOBIN 9.9 g/dL (12.0-18.0); LYMPH # 0.4 K/uL (1.0-4.3); LYMPH % 5.3 % (20.0-40.0); MEAN CELL VOLUME 101.8 fL (80.0-94.0); MEAN CORPUSCULAR HEMOGLOBIN 33.1 pg (27.0-31.0); MEAN CORPUSCULAR HGB CONC 32.5 g/dL (33.0-37.0); MEAN PLATELET VOLUME 8.2 fL (7.2-11.7); MONO # 0.4 K/uL (0.0-0.8); MONO % 4.5 % (0.0-10.0); NEUT # 7.1 K/uL (1.8-7.0); NEUT % 89.9 % (50.0-75.0); NRBC % 1.4 % (0.0-2.0); RED CELL DISTRIBUTION WIDTH 20.9 % (11.5-14.5); WHITE BLOOD COUNT 7.9 K/uL (4.8-10.8)
[2017-11-30 07:30] LABS: PLATELET COUNT 128 K/uL (130-400)
[2017-11-30 07:57] LABS: ALBUMIN 3.1 g/dL (3.5-5.0); CALCIUM 9.3 mg/dl (8.6-10.4)
[2017-11-30] MEDS: (Novolin R) Insulin Human Regular 100 units/ml vial SC SCH ×4 (08:42→21:52)
[2017-11-30] MEDS: Multivitamin Vitamin B Complex (Nephro-Vite) Tab PO SCH (08:42)
--- NOTE | 2017-11-30 08:46 | CP.PCM.PN ---
Subjective - Date & Time of Evaluation Date of Evaluation: 11/30/17 Time of Evaluation: 08:46 - Subjective Subjective: pt is seen and examined, follow up consult is dictated #[id number] for extra hd today, uf 2.5 lit Objective - Vital Signs/Intake and Output Vital Signs (last 24 hours): Temp Pulse Resp BP Pulse Ox 98.2 F 86 20 173/84 H 96 11/30/17 08:00 11/30/17 08:00 11/30/17 08:00 11/30/17 08:00 11/30/17 08:00 - Medications Medications: Current Medications Acetaminophen (Tylenol 325mg Tab) 650 mg PO Q6 PRN PRN Reason: Pain or Fever Last Admin: 11/30/17 01:51 Dose: 650 mg Acetylcysteine (Acetylcysteine 20%) 4 ml INH RQ6 [facility] Last Admin: 11/30/17 02:04 Dose: Not Given Alprazolam (Xanax) 0.25 mg PO Q12H [facility] Last Admin: 11/29/17 21:34 Dose: 0.25 mg Docusate Sodium (Colace) 100 mg PO TID [facility] Epoetin Mario (Procrit) 10,000 unit IV TTS [facility] Last Admin: 11/29/17 13:17 Dose: 10,000 unit Heparin Sodium (Porcine) (Heparin) 5,000 units SC Q12 [facility] Last Admin: 11/29/17 21:34 Dose: 5,000 units Hydrocortisone (Anusol-Hc) 0 gm [place] BID [facility] Ceftriaxone Sodium (Rocephin Iv 1 Gm Duplex) 50 mls @ 100 mls/hr IVPB DAILY [facility] PRN Reason: Protocol Last Admin: 11/29/17 09:16 Dose: 100 mls/hr Doxycycline Hyclate 100 mg/ (Sodium Chloride) 100 mls @ 100 mls/hr IVPB Q12 [facility] PRN Reason: Protocol Last Admin: 11/29/17 21:35 Dose: 100 mls/hr Insulin Human Regular (Novolin R) 0 unit SC ACHS [facility] PRN Reason: Protocol Last Admin: 11/30/17 08:42 Dose: 1 unit Methylprednisolone (Solu-Medrol) 20 mg IV Q12 [facility] Last Admin: 11/29/17 21:34 Dose: 20 mg Pantoprazole Sodium (Protonix Ec Tab) 20 mg PO DAILY [facility] Last Admin: 11/29/17 09:12 Dose: 20 mg Paricalcitol (Zemplar) 2 mcg IV TTS [facility] Last Admin: 11/29/17 09:11 Dose: 2 mcg Sevelamer Carbonate (Renvela) 800 mg PO TIDCC [facility] Last Admin: 11/30/17 08:42 Dose: 800 mg Vitamin B Complex/Vit C/Folic Acid (Nephro-Renaldo) 1 tab PO 0800 [facility] Last Admin: 11/30/17 08:42 Dose: 1 tab - Labs Labs: 11/30/17 07:08 11/30/17 07:08 PT 11.2 SECONDS (9.7-12.2) 11/24/17 18:03 INR 1.0 11/24/17 18:03 APTT 38 SECONDS (21-34) H 11/24/17 18:03
[2017-11-30 09:17] LABS: ANISOCYTOSIS MODERATE; BANDS 7 % (0-2); EOSINOPHIL 6 % (0-4); LYMPHOCYTE 4 % (20-40); METAMYELOCYTE 1 % (0-0); MONOCYTE 4 % (0-10); MYELOCYTE 4 % (0-0); NEUTROPHIL 74 % (50-75); NUCLEATED RED BLOOD CELL 6 % (0-0); PLATELET ESTIMATE SLIGHTLY DECREASED (NORMAL); TOTAL CELLS COUNTED 100
[2017-11-30 09:18] LABS: POIKILOCYTOSIS SLIGHT
[2017-11-30 09:22] LABS: TEARDROP CELLS SLIGHT
[2017-11-30 09:23] LABS: OVALOCYTES SLIGHT; TOXIC GRANULATION PRESENT
[2017-11-30] MEDS: cefTRIAXone IV 1 gm in Dextros 50 ML IVPB SCH (10:26)
[2017-11-30] MEDS: Pantoprazole 20 mg EC Tab PO SCH (10:27)
[2017-11-30] MEDS: MethylPREDNISolone 40 mg Vial IV SCH ×2 (10:27→21:45)
--- NOTE | 2017-11-30 15:49 | CP.PCM.PN ---
Subjective - Date & Time of Evaluation Date of Evaluation: 11/30/17 Time of Evaluation: 14:00 - Subjective Subjective: Patient seen and examined during dialysis Shortness of breath on exertion Afebrile Complaining of constipation Objective - Vital Signs/Intake and Output Vital Signs (last 24 hours): Temp Pulse Resp BP Pulse Ox 97.6 F 84 20 138/53 L 98 11/30/17 14:30 11/30/17 14:30 11/30/17 14:30 11/30/17 15:30 11/30/17 14:30 Intake and Output: 11/30/17 11/30/17 06:59 18:59 Intake Total 440 Balance 440 - Medications Medications: Current Medications Acetaminophen (Tylenol 325mg Tab) 650 mg PO Q6 PRN PRN Reason: Pain or Fever Last Admin: 11/30/17 10:28 Dose: 650 mg Acetylcysteine (Acetylcysteine 20%) [address] [facility] Last Admin: 11/30/17 02:04 Dose: Not Given Alprazolam (Xanax) 0.[address] [facility] Last Admin: 11/30/17 10:29 Dose: 0.25 mg Docusate Sodium (Colace) [address] [facility] Last Admin: 11/30/17 14:19 Dose: Not Given Epoetin Mario (Procrit) 10,[address] [facility] Last Admin: 11/29/17 13:17 Dose: 10,000 unit Heparin Sodium (Porcine) (Heparin) 5,[address] [facility] Last Admin: 11/30/17 10:27 Dose: 5,000 units Hydrocortisone (Anusol-Hc) [address] [facility] Last Admin: 11/30/17 10:42 Dose: 1 applic Ceftriaxone Sodium (Rocephin Iv 1 Gm Duplex) 50 mls @ 100 mls/hr IVPB DAILY [facility] PRN Reason: Protocol Last Admin: 11/30/17 10:26 Dose: 100 mls/hr Doxycycline Hyclate 100 mg/ (Sodium Chloride) 100 mls @ 100 mls/hr IVPB Q12 [facility] PRN Reason: Protocol Last Admin: 11/30/17 10:41 Dose: 100 mls/hr Insulin Human Regular (Novolin R) 0 unit SC ACHS [facility] PRN Reason: Protocol Last Admin: 05/11/18 12:15 Dose: 1 unit Methylprednisolone (Solu-Medrol) [address] [facility] Last Admin: 11/30/17 10:27 Dose: 20 mg Pantoprazole Sodium (Protonix Ec Tab) [address] [facility] Last Admin: 11/30/17 10:27 Dose: 20 mg Paricalcitol (Zemplar) [address] [facility] Last Admin: 11/29/17 09:11 Dose: 2 mcg Sevelamer Carbonate (Renvela) [address] [facility] Last Admin: 11/30/17 12:37 Dose: 800 mg Vitamin B Complex/Vit C/Folic Acid (Nephro-Renaldo) [address] [facility] Last Admin: 11/30/17 08:42 Dose: 1 tab - Labs Labs: 11/30/17 07:08 11/30/17 07:08 PT 11.2 SECONDS (9.7-12.2) 11/24/17 18:03 INR 1.0 11/24/17 18:03 APTT 38 SECONDS (21-34) H 11/24/17 18:03 - Head Exam Head Exam: ATRAUMATIC, NORMOCEPHALIC - ENT Exam ENT Exam: Mucous Membranes Moist - Neck Exam Neck Exam: Normal Inspection - Respiratory Exam Respiratory Exam: Decreased Breath Sounds - Cardiovascular Exam Cardiovascular Exam: REGULAR RHYTHM - GI/Abdominal Exam GI & Abdominal Exam: Soft, Normal Bowel Sounds Assessment and Plan (1) Hypercapnic respiratory failure Assessment & Plan: BiPAP at night and as needed Continue nebulizer tretment and steroids Continue hemodialysis Status: Acute (2) ESRD (end stage renal disease) on dialysis Status: Chronic (3) CAD (coronary artery disease) of artery bypass graft Status: Acute (4) COPD (chronic obstructive pulmonary disease) Status: Acute
--- NOTE | 2017-11-30 17:21 | CP.PCM.PN ---
Subjective - Date & Time of Evaluation Date of Evaluation: 11/30/17 Time of Evaluation: 07:00 - Subjective Subjective: still sob\ c/o pain in buttock wound care reccs reviewed Dr Frausto following # + edema bilaterally HD in progress Objective - Vital Signs/Intake and Output Vital Signs (last 24 hours): Temp Pulse Resp BP Pulse Ox 97.8 F 81 18 153/62 H 97 11/30/17 16:30 11/30/17 16:30 11/30/17 16:30 11/30/17 16:30 11/30/17 16:30 Intake and Output: 11/30/17 11/30/17 06:59 18:59 Intake Total 440 Balance 440 - Medications Medications: Current Medications Acetaminophen (Tylenol 325mg Tab) 650 mg PO Q6 PRN PRN Reason: Pain or Fever Last Admin: 11/30/17 16:20 Dose: 650 mg Acetylcysteine (Acetylcysteine 20%) 4 ml INH RQ6 [facility] Last Admin: 11/30/17 02:04 Dose: Not Given Alprazolam (Xanax) 0.25 mg PO Q12H [facility] Last Admin: 11/30/17 10:29 Dose: 0.25 mg Docusate Sodium (Colace) 100 mg PO TID [facility] Last Admin: 11/30/17 14:19 Dose: Not Given Epoetin Mario (Procrit) 10,000 unit IV TTS [facility] Last Admin: 11/29/17 13:17 Dose: 10,000 unit Heparin Sodium (Porcine) (Heparin) 5,000 units SC Q12 [facility] Last Admin: 11/30/17 10:27 Dose: 5,000 units Hydrocortisone (Anusol-Hc) 0 gm [place] BID [facility] Last Admin: 11/30/17 10:42 Dose: 1 applic Ceftriaxone Sodium (Rocephin Iv 1 Gm Duplex) 50 mls @ 100 mls/hr IVPB DAILY [facility] PRN Reason: Protocol Last Admin: 11/30/17 10:26 Dose: 100 mls/hr Doxycycline Hyclate 100 mg/ (Sodium Chloride) 100 mls @ 100 mls/hr IVPB Q12 [facility] PRN Reason: Protocol Last Admin: 11/30/17 10:41 Dose: 100 mls/hr Insulin Human Regular (Novolin R) 0 unit SC ACHS [facility] PRN Reason: Protocol Last Admin: 11/30/17 12:15 Dose: 1 unit Methylprednisolone (Solu-Medrol) 20 mg IV Q12 [facility] Last Admin: 11/30/17 10:27 Dose: 20 mg Pantoprazole Sodium (Protonix Ec Tab) 20 mg PO DAILY [facility] Last Admin: 11/30/17 10:27 Dose: 20 mg Paricalcitol (Zemplar) 2 mcg IV TTS [facility] Last Admin: 11/29/17 09:11 Dose: 2 mcg Sevelamer Carbonate (Renvela) 800 mg PO TIDCC [facility] Last Admin: 11/30/17 12:37 Dose: 800 mg Vitamin B Complex/Vit C/Folic Acid (Nephro-Renaldo) 1 tab PO 0800 [facility] Last Admin: 11/30/17 08:42 Dose: 1 tab - Labs Labs: 11/30/17 07:08 11/30/17 07:08 PT 11.2 SECONDS (9.7-12.2) 11/24/17 18:03 INR 1.0 11/24/17 18:03 APTT 38 SECONDS (21-34) H 11/24/17 18:03 - Constitutional Appears: Non-toxic, Chronically Ill - Head Exam Head Exam: NORMOCEPHALIC - Eye Exam Eye Exam: PERRL. absent: Scleral icterus - ENT Exam ENT Exam: Mucous Membranes Dry - Neck Exam Neck Exam: absent: Lymphadenopathy - Respiratory Exam Respiratory Exam: Decreased Breath Sounds - Cardiovascular Exam Cardiovascular Exam: REGULAR RHYTHM - GI/Abdominal Exam GI & Abdominal Exam: Distended, Soft - Rectal Exam Rectal Exam: Deferred - Exam Exam: Scrotal Swelling - Extremities Exam Extremities Exam: Pedal Edema - Back Exam Back Exam: absent: CVA tenderness (L), CVA tenderness (R) - Neurological Exam Neurological Exam: Alert, Awake, CN II-XII Intact Assessment and Plan (1) Atelectasis of right lung Status: Acute (2) Dyspnea Status: Acute (3) Hypercapnic respiratory failure Status: Acute (4) Syncope Status: Acute (5) ESRD (end stage renal disease) on dialysis Status: Chronic - Assessment and Plan (Free Text) Assessment: will renew orders
--- NOTE | 2017-11-30 23:55 | PN ---
DATE: 11/30/2017 FOLLOWUP RENAL CONSULTATION LOCATION: The patient is located in room 353, bed A. REQUESTED BY: Theodore Lucas MD REASON FOR FOLLOWUP: End-stage renal disease, continuation of the hemodialysis; shortness of breath. SUBJECTIVE: Mr. 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 The patient was complaining of shortness of breath the last night and denies any chest pain or palpitation. Denies any fever or cough. No abdominal pain. No nausea, vomiting, diarrhea today. The patient is noncompliant with fluid intake. OBJECTIVE: VITAL SIGNS: As follows; blood pressure 169/61, pulse 80, respirations 18, temperature 97.6, saturation 98-100%. GENERAL: Mr. Gonzales is a 67-year-old male, moderately built, moderately nourished, on nasal cannula, not in distress. HEENT: Pupils normal, reactive to light and accommodation. Conjunctiva pink. Sclerae anicteric. Tongue is moist. Trachea is midline. LUNGS: Symmetric on both sides. Bilateral basal crackles present. CVS: [place] at the fifth intercostal space and midclavicular line. S1, S2 audible. No murmur or gallop. The patient has midsternal scar present from the previous CABG. ABDOMEN: Normal in appearance, soft, tympanic. No guarding. No rigidity. No hepatosplenomegaly. INFRASTRUCTURE TECH: The patient is alert, awake, oriented x3. His sensory motor system is within normal limits. Motor, left-sided weakness with contracture on the left hand. EXTREMITIES: No cyanosis, no clubbing. The patient has a 2+ edema in both lower extremities. CURRENT MEDICATIONS: Include as follows; acetylcysteine 4 mL inhaler every 6 hours, Colace 100 mg p.o. t.i.d., doxycycline 100 mg every 12 hours, subcu heparin 5000 units every 12 hours, Nephro-Renaldo 1 tablet daily, Novolin R for sliding scale, Procrit 10,000 units three times a week, Protonix 20 mg p.o. daily, Renvela 800 mg p.o. t.i.d., Rocephin 1 gm daily, Solu-Medrol 20 mg IV every 12 hours, Tylenol, Xanax, and Zemplar. LABORATORY DATA: Include as follows, as of 11/30/2017; WBC 7.9, hemoglobin 9.9, hematocrit is 30.5, platelets 128. Neutrophils 74, bands 7, lymph is 4, monocytes 4, eosinophils 6, metamyelocytes 1, myelocytes 4, and nucleated RBC 6. Sodium 139, potassium 4.1, chloride 97, CO2 of 31, BUN 53, creatinine 4.3, glucose 172, calcium was 9.3, total bili 0.5, AST 42, ALT 52, alkaline phosphatase 93, total protein 6.1, albumin is 3.1. Sputum culture positive for yeast. Blood culture x2 negative day 5 and MRSA screening was negative. IMPRESSION AND PLAN: In summary, Mr. Gonzales is a 67 years old elderly male with history of hypertension, diabetes, coronary artery disease status post coronary artery bypass graft, end-stage renal disease, cerebrovascular accident with left-sided weakness, status post upper gastrointestinal bleed, status post pacemaker placement who was admitted with hypercarbic respiratory failure, acute and chest x-ray consistent with congestive heart failure. 1. End-stage renal disease. Continue hemodialysis three times a week Sunday, , Sunday and patient is fluid overloaded and with a respiratory difficulty last night. We will give an extra hemodialysis today for 2 hours. We will try to ultrafiltrate as much as patient can tolerating 2.5 to 3 liters. 2. Hypertension. We will add hydralazine 25 mg p.o. b.i.d. and titrate as needed. 3. Diabetes. 4. Fluid overload. 5. Status post hypercarbic respiratory failure. Restrict the fluids to 1 liter per day and continue his current medications, Procrit, Renvela and Nephro-Renaldo. Continue antibiotics as per ID recommendations, doxycycline and also continue methylprednisolone and follow up with Pulmonary. We will follow with you. Thank you for allowing me to participate in your patient's care. Martin Ortiz MD [facility] # [id number]
[2017-12-01 00:49] VITALS: RESP 20
[2017-12-01] MEDS: Acetylcysteine 20% Inhal Soln (4ml) INH SCH ×4 (01:21→19:09)
[2017-12-01 08:17] LABS: BASO % 0.3 % (0.0-2.0); HEMOGLOBIN 9.9 g/dL (12.0-18.0); LYMPH # 0.8 K/uL (1.0-4.3); LYMPH % 9.5 % (20.0-40.0); MEAN CELL VOLUME 101.4 fL (80.0-94.0); MEAN CORPUSCULAR HEMOGLOBIN 33.6 pg (27.0-31.0); MEAN CORPUSCULAR HGB CONC 33.2 g/dL (33.0-37.0); MEAN PLATELET VOLUME 8.5 fL (7.2-11.7); MONO # 0.4 K/uL (0.0-0.8); MONO % 5.3 % (0.0-10.0); NEUT # 6.8 K/uL (1.8-7.0); NEUT % 84.9 % (50.0-75.0); NRBC % 1.2 % (0.0-2.0); PLATELET COUNT 123 K/uL (130-400); RBC 2.94 Mil/uL (4.40-5.90); RED CELL DISTRIBUTION WIDTH 21.3 % (11.5-14.5)
[2017-12-01] MEDS: (Novolin R) Insulin Human Regular 100 units/ml vial SC SCH ×4 (08:30→22:00)
[2017-12-01 08:45] LABS: ALB/GLOB RATIO 0.9 (1.0-2.1); ALBUMIN 2.9 g/dL (3.5-5.0); CALCIUM 9.5 mg/dl (8.6-10.4)
[2017-12-01] MEDS: Hydrocortisone 2.5% Rectal Cream(30 gm) PR SCH ×3 (09:32→17:45)
[2017-12-01] MEDS: Multivitamin Vitamin B Complex (Nephro-Vite) Tab PO SCH (09:34)
[2017-12-01] MEDS: Pantoprazole 20 mg EC Tab PO SCH (09:34)
[2017-12-01] MEDS: Paricalcitol 2 mcg/ml Inj IV SCH (10:44)
[2017-12-01] MEDS ORDERED: Epoetin Alfa 10,000 unit/ml Dialysis IV SCH (10:45)
[2017-12-01 11:16] LABS: BANDS 6 % (0-2); LYMPHOCYTE 10 % (20-40); METAMYELOCYTE 2 % (0-0); MONOCYTE 7 % (0-10); MYELOCYTE 4 % (0-0); NEUTROPHIL 71 % (50-75); NUCLEATED RED BLOOD CELL 2 % (0-0); TOTAL CELLS COUNTED 100
[2017-12-01 11:17] LABS: ANISOCYTOSIS MODERATE; PLATELET ESTIMATE NORMAL (NORMAL); POIKILOCYTOSIS SLIGHT
[2017-12-01 11:18] LABS: HYPOCHROMIC SLIGHT; OVALOCYTES SLIGHT; POLYCHROMIC SLIGHT; SPHEROCYTES SLIGHT; TEARDROP CELLS SLIGHT
[2017-12-01] MEDS: Albuterol-Ipratrop 3 mg / 0.5 (3 ml) UD INH SCH ×3 (13:12→19:10)
[2017-12-01] MEDS: cefTRIAXone IV 1 gm in Dextros 50 ML IVPB SCH (13:35)
[2017-12-01] MEDS: MethylPREDNISolone 40 mg Vial IV SCH ×2 (13:35→21:25)
--- NOTE | 2017-12-01 15:14 | CP.PCM.PN ---
Subjective - Date & Time of Evaluation Date of Evaluation: 12/01/17 Time of Evaluation: 08:00 - Subjective Subjective: more lethargic afebrile congested and edematous- renal on board Objective - Vital Signs/Intake and Output Vital Signs (last 24 hours): Temp Pulse Resp BP Pulse Ox 97.7 F 76 20 121/49 L 100 12/01/17 12:36 12/01/17 09:10 12/01/17 12:36 12/01/17 12:36 12/01/17 12:36 Intake and Output: 12/01/17 12/01/17 06:59 18:59 Intake Total 540 200 Balance 540 200 - Medications Medications: Current Medications Acetaminophen (Tylenol 325mg Tab) 650 mg PO Q6 PRN PRN Reason: Pain or Fever Last Admin: 12/01/17 10:44 Dose: 650 mg Acetylcysteine (Acetylcysteine 20%) 4 ml INH RQ6 [facility] Last Admin: 12/01/17 13:12 Dose: 4 ml Albuterol/Ipratropium (Duoneb 3 Mg/0.5 Mg (3 Ml) Ud) 3 ml INH RQ6 [facility] Last Admin: 12/01/17 13:13 Dose: Not Given Alprazolam (Xanax) 0.25 mg PO DAILY [facility] Docusate Sodium (Colace) 100 mg PO TID [facility] Last Admin: 12/01/17 14:08 Dose: Not Given Epoetin Mario (Procrit) 10,000 unit IV TTS [facility] Last Admin: 12/01/17 10:56 Dose: 10,000 unit Heparin Sodium (Porcine) (Heparin) 5,000 units SC Q12 [facility] Last Admin: 12/01/17 09:34 Dose: 5,000 units Hydrocortisone (Anusol-Hc) 0 gm [place] BID [facility] Last Admin: 12/01/17 09:35 Dose: 1 applic Ceftriaxone Sodium (Rocephin Iv 1 Gm Duplex) 50 mls @ 100 mls/hr IVPB DAILY [facility] PRN Reason: Protocol Last Admin: 12/01/17 13:35 Dose: 100 mls/hr Doxycycline Hyclate 100 mg/ (Sodium Chloride) 100 mls @ 100 mls/hr IVPB Q12 [facility] PRN Reason: Protocol Last Admin: 12/01/17 14:09 Dose: 100 mls/hr Insulin Human Regular (Novolin R) 0 unit SC ACHS [facility] PRN Reason: Protocol Last Admin: 12/01/17 11:52 Dose: Not Given Methylprednisolone (Solu-Medrol) 20 mg IV Q12 [facility] Last Admin: 12/01/17 13:35 Dose: 20 mg Pantoprazole Sodium (Protonix Ec Tab) 20 mg PO DAILY [facility] Last Admin: 12/01/17 09:34 Dose: 20 mg Paricalcitol (Zemplar) 2 mcg IV TTS [facility] Last Admin: 12/01/17 10:44 Dose: 2 mcg Sevelamer Carbonate (Renvela) 800 mg PO TIDCC [facility] Last Admin: 12/01/17 13:35 Dose: Not Given Vitamin B Complex/Vit C/Folic Acid (Nephro-Renaldo) 1 tab PO 0800 [facility] Last Admin: 12/01/17 09:34 Dose: 1 tab - Labs Labs: 12/01/17 08:03 12/01/17 08:03 PT 11.2 SECONDS (9.7-12.2) 11/24/17 18:03 INR 1.0 11/24/17 18:03 APTT 38 SECONDS (21-34) H 11/24/17 18:03 - Constitutional Appears: Non-toxic, Chronically Ill - Head Exam Head Exam: ATRAUMATIC, NORMOCEPHALIC - Eye Exam Eye Exam: PERRL - ENT Exam ENT Exam: Mucous Membranes Dry - Neck Exam Neck Exam: absent: Lymphadenopathy - Respiratory Exam Respiratory Exam: Decreased Breath Sounds, Prolonged Expiratory Phase, Rales, Rhonchi - Cardiovascular Exam Cardiovascular Exam: REGULAR RHYTHM, +S1, +S2 - GI/Abdominal Exam GI & Abdominal Exam: Distended, Soft. absent: Tenderness - Rectal Exam Rectal Exam: Deferred - Exam Exam: NORMAL INSPECTION - Extremities Exam Extremities Exam: Pedal Edema - Back Exam Back Exam: absent: CVA tenderness (L), CVA tenderness (R) Assessment and Plan (1) Atelectasis of right lung Status: Acute (2) Dyspnea Status: Acute (3) Hypercapnic respiratory failure Status: Acute (4) Syncope Status: Acute (5) ESRD (end stage renal disease) on dialysis Status: Chronic - Assessment and Plan (Free Text) Assessment: cont rx pneumonia decrease xanax follow up CXR
--- NOTE | 2017-12-01 16:53 | CP.PCM.PN ---
Subjective - Date & Time of Evaluation Date of Evaluation: 12/01/17 Time of Evaluation: 16:53 - Subjective Subjective: pt is seen and examined, follow up consult is dictated #[id number] s/h hd on 11/30 and 12/01, uf 2.5 + 3 lit in 2 days Objective - Vital Signs/Intake and Output Vital Signs (last 24 hours): Temp Pulse Resp BP Pulse Ox 98.3 F 81 20 140/62 100 12/01/17 16:00 12/01/17 16:00 12/01/17 16:00 12/01/17 16:00 12/01/17 16:00 Intake and Output: 12/01/17 12/01/17 06:59 18:59 Intake Total 540 200 Balance 540 200 - Medications Medications: Current Medications Acetaminophen (Tylenol 325mg Tab) 650 mg PO Q6 PRN PRN Reason: Pain or Fever Last Admin: 12/01/17 10:44 Dose: 650 mg Acetylcysteine (Acetylcysteine 20%) 4 ml INH RQ6 [facility] Last Admin: 12/01/17 13:12 Dose: 4 ml Albuterol/Ipratropium (Duoneb 3 Mg/0.5 Mg (3 Ml) Ud) 3 ml INH RQ6 [facility] Last Admin: 12/01/17 13:13 Dose: Not Given Alprazolam (Xanax) 0.25 mg PO HS [facility] Docusate Sodium (Colace) 100 mg PO TID [facility] Last Admin: 12/01/17 14:08 Dose: Not Given Epoetin Mario (Procrit) 10,000 unit IV TTS [facility] Last Admin: 12/01/17 10:56 Dose: 10,000 unit Heparin Sodium (Porcine) (Heparin) 5,000 units SC Q12 [facility] Last Admin: 12/01/17 09:34 Dose: 5,000 units Hydrocortisone (Anusol-Hc) 0 gm [place] BID [facility] Last Admin: 12/01/17 09:35 Dose: 1 applic Ceftriaxone Sodium (Rocephin Iv 1 Gm Duplex) 50 mls @ 100 mls/hr IVPB DAILY [facility] PRN Reason: Protocol Last Admin: 12/01/17 13:35 Dose: 100 mls/hr Doxycycline Hyclate 100 mg/ (Sodium Chloride) 100 mls @ 100 mls/hr IVPB Q12 [facility] PRN Reason: Protocol Last Admin: 12/01/17 14:09 Dose: 100 mls/hr Insulin Human Regular (Novolin R) 0 unit SC ACHS [facility] PRN Reason: Protocol Last Admin: 12/01/17 11:52 Dose: Not Given Methylprednisolone (Solu-Medrol) 20 mg IV Q12 [facility] Last Admin: 12/01/17 13:35 Dose: 20 mg Pantoprazole Sodium (Protonix Ec Tab) 20 mg PO DAILY [facility] Last Admin: 12/01/17 09:34 Dose: 20 mg Paricalcitol (Zemplar) 2 mcg IV TTS [facility] Last Admin: 12/01/17 10:44 Dose: 2 mcg Sevelamer Carbonate (Renvela) 800 mg PO TIDCC [facility] Last Admin: 12/01/17 13:35 Dose: Not Given Vitamin B Complex/Vit C/Folic Acid (Nephro-Renaldo) 1 tab PO 0800 [facility] Last Admin: 12/01/17 09:34 Dose: 1 tab - Labs Labs: 12/01/17 08:03 12/01/17 08:03 PT 11.2 SECONDS (9.7-12.2) 11/24/17 18:03 INR 1.0 11/24/17 18:03 APTT 38 SECONDS (21-34) H 11/24/17 18:03
--- NOTE | 2017-12-01 16:56 | RAD ---
PROCEDURE: CHEST RADIOGRAPH, 1 VIEW HISTORY: chf pneumonia COMPARISON: None available. FINDINGS: LUNGS: Improving pulmonary vascular pattern with diminishing right perihilar patchy density noted. Left retrocardiac opacity unchanged. Small bilateral pleural effusions persist. No pneumothorax bilaterally. PLEURA: As above. CARDIOVASCULAR: Cardiomegaly appears stable. Sternotomy wires an event recorder again evident as well as recently implanted bipolar pacemaker. Left axillary Wallstent reiterated. OSSEOUS STRUCTURES: No significant abnormalities. VISUALIZED UPPER ABDOMEN: Normal. OTHER FINDINGS: None. IMPRESSION: Improving CHF and diminishing right perihilar airspace disease. Left retrocardiac airspace disease unchanged as well as limited bilateral pleural effusions.
--- NOTE | 2017-12-02 00:10 | PN ---
DATE: 12/01/2017 FOLLOWUP RENAL CONSULTATION LOCATION: The patient is located in room 353, bed A. REQUESTED BY: Theodore Lucas MD REASON FOR FOLLOWUP: End-stage renal disease, continuation on hemodialysis, status post respiratory failure. SUBJECTIVE: Mr. Gonzales is a 67-year-old obese [place] male with a past medical history significant for longstanding hypertension, diabetes, coronary artery disease, status post CABG, CVA with left-sided weakness, end-stage renal disease, on hemodialysis three times a week Sunday, , Sunday, status post upper GI bleed about 10 days ago, and status post EGD and pacemaker placement who was admitted with hypercarbic acute respiratory failure, requiring admission to ICU on BiPAP, subsequently transferred out. The patient was also found to have a fluid overload, CHF, and requiring extra hemodialysis this week, Sunday and Sunday. The patient is very noncompliant with diet and fluid intake. The patient underwent hemodialysis yesterday, had ultrafiltration about 2.5 liters and underwent his regular dialysis today and removed 3 liters today. The patient is feeling slightly better, not in distress. PHYSICAL EXAMINATION: VITAL SIGNS: Are as follows: Blood pressure 140/62, pulse 81, respirations 20, and temperature 98.3, saturation 100%. Height 5 feet 6 inches, and his weight post dialysis today was 84.6 kg. GENERAL: Mr. Gonzales is a 67-year-old elderly obese male, moderately built, moderately nourished, not in acute distress. HEENT: Pupils normal and reactive to light and accommodation. Conjunctivae pink. Sclerae anicteric. Tongue is moist. NECK: Trachea is midline. LUNGS: Symmetric on both sides. Bilateral breath sounds present. Bilateral basal crackles present. CVS: [place] at the fifth intercostal space, midclavicular line. S1, S2 audible. No murmur or gallop. ABDOMEN: Normal in appearance. Soft, tympanic. No guarding. No rigidity. No hepatosplenomegaly. BUILDER BEAM: The patient is alert, awake, and oriented x3. Sensory system is grossly within normal limits. Motor system, the patient has left-sided weakness with contracture of the left hand. EXTREMITIES: No cyanosis, no clubbing. The patient has still 2+ edema in both lower extremities. CURRENT MEDICATIONS: Include as follows: Acetylcysteine 20% 4 mL inhaler every 6 hours, Anusol HC per rectal b.i.d., Colace 100 mg p.o. t.i.d., doxycycline 100 mg every 12 hours, DuoNeb inhaler, subcu heparin 5000 every 12 hours, Nephro-Renaldo one tablet daily, Novolin R for sliding scale, Procrit 10,000 units three times a week, Protonix 20 mg p.o. daily, Renvela 800 mg p.o. t.i.d., Rocephin 1 gm daily, Solu-Medrol 20 mg IV every 12 hours, Tylenol, Xanax, and Zemplar. LABORATORY DATA: Include as follows: As of 12/01/2017, WBC 8, hemoglobin 9.9, hematocrit is 29.8, platelets 123, neutrophils 71, lymph is 10, bands 6, and monocytes about 7, metamyelocytes 2, nucleated RBC 4, myelocytes about 4%. His other laboratory data: Sodium 137, potassium 5.7, chloride 97, CO2 28, BUN 73, creatinine 4.7, glucose 145, calcium 9.4, total bili 0.9, AST 44, ALT 68, alkaline phosphatase 92, total protein 6, albumin is 2.9. MRSA screening was negative as of 11/28/2017. ASSESSMENT AND PLAN: In summary, Mr. Gonzales is a 67-year-old elderly obese Japanese male with a history of hypertension, diabetes, coronary artery disease, status post coronary artery bypass graft, cerebrovascular accident with left-sided weakness, status post upper gastrointestinal bleed, status post esophagogastroduodenoscopy, pacemaker placement, who was admitted with hypercarbic respiratory failure, congestive heart failure, and fluid overload. 1. End-stage renal disease. Continue hemodialysis three times a week on Sunday, , Sunday and may need extra hemodialysis once he goes to the outpatient dialysis unit, to keep out of hospital admissions. 2. Fluid overload. 3. Anemia secondary to recent gastrointestinal bleed. 4. Hypertension. 5. Diabetes. 6. Hyperkalemia secondary to noncompliance with the diet. Discussed with the patient and the patient's niece at bedside regarding the fluid restriction and need for the dietary compliance. The patient underwent extra hemodialysis yesterday, had ultrafiltration about 2.5 liters and regular dialysis to remove about 3 liters, still mildly fluid overloaded at this time. We will follow with you. Thank you for allowing me to participate in your patient's care. Martin Ortiz MD
[2017-12-02] MEDS: Albuterol-Ipratrop 3 mg / 0.5 (3 ml) UD INH SCH ×4 (01:57→19:17)
[2017-12-02] MEDS: Acetylcysteine 20% Inhal Soln (4ml) INH SCH ×4 (01:57→19:17)
[2017-12-02 08:36] LABS: CALCIUM 9.1 mg/dl (8.6-10.4)
[2017-12-02] MEDS: Hydrocortisone 2.5% Rectal Cream(30 gm) PR SCH ×2 (09:15→18:04)
[2017-12-02] MEDS: MethylPREDNISolone 40 mg Vial IV SCH ×2 (09:16→21:24)
[2017-12-02] MEDS: Pantoprazole 20 mg EC Tab PO SCH (09:16)
[2017-12-02] MEDS: Multivitamin Vitamin B Complex (Nephro-Vite) Tab PO SCH (09:16)
[2017-12-02] MEDS: (Novolin R) Insulin Human Regular 100 units/ml vial SC SCH ×4 (09:17→21:45)
[2017-12-02] MEDS: cefTRIAXone IV 1 gm in Dextros 50 ML IVPB SCH (09:41)
[2017-12-02] MEDS ORDERED: Sod Polystyrene Sulf 15 gm/60 ml Susp PO ONE (12:16)
--- NOTE | 2017-12-02 12:17 | CP.PCM.PN ---
Subjective - Date & Time of Evaluation Date of Evaluation: 12/02/17 Time of Evaluation: 12:16 - Subjective Subjective: pt is seen and examined, follow up consult is dictated #[id number] Objective - Vital Signs/Intake and Output Vital Signs (last 24 hours): Temp Pulse Resp BP Pulse Ox 97.7 F 88 20 146/61 97 12/02/17 00:00 12/02/17 00:00 12/02/17 00:00 12/02/17 00:00 12/02/17 00:00 - Medications Medications: Current Medications Acetaminophen (Tylenol 325mg Tab) 650 mg PO Q6 PRN PRN Reason: Pain or Fever Last Admin: 12/02/17 09:40 Dose: 650 mg Acetylcysteine (Acetylcysteine 20%) 4 ml INH RQ6 [facility] Last Admin: 12/02/17 07:35 Dose: 4 ml Albuterol/Ipratropium (Duoneb 3 Mg/0.5 Mg (3 Ml) Ud) 3 ml INH RQ6 [facility] Last Admin: 12/02/17 07:35 Dose: 3 ml Alprazolam (Xanax) 0.25 mg PO HS [facility] Last Admin: 12/01/17 21:27 Dose: 0.25 mg Docusate Sodium (Colace) 100 mg PO TID [facility] Last Admin: 12/02/17 09:17 Dose: 100 mg Epoetin Mario (Procrit) 10,000 unit IV TTS [facility] Last Admin: 12/01/17 10:56 Dose: 10,000 unit Hydrocortisone (Anusol-Hc) 0 gm [place] BID [facility] Last Admin: 12/02/17 09:15 Dose: 1 applic Insulin Human Regular (Novolin R) 0 unit SC ACHS [facility] PRN Reason: Protocol Last Admin: 12/02/17 12:09 Dose: Not Given Methylprednisolone (Solu-Medrol) 20 mg IV Q12 [facility] Last Admin: 12/02/17 09:16 Dose: 20 mg Pantoprazole Sodium (Protonix Ec Tab) 20 mg PO DAILY [facility] Last Admin: 12/02/17 09:16 Dose: 20 mg Paricalcitol (Zemplar) 2 mcg IV TTS [facility] Last Admin: 12/01/17 10:44 Dose: 2 mcg Sevelamer Carbonate (Renvela) 800 mg PO TIDCC [facility] Last Admin: 12/02/17 09:16 Dose: 800 mg Vitamin B Complex/Vit C/Folic Acid (Nephro-Renaldo) 1 tab PO 0800 [facility] Last Admin: 12/02/17 09:16 Dose: 1 tab - Labs Labs: 12/01/17 08:03 12/02/17 08:01 PT 11.2 SECONDS (9.7-12.2) 11/24/17 18:03 INR 1.0 11/24/17 18:03 APTT 38 SECONDS (21-34) H 11/24/17 18:03
[2017-12-03] MEDS: Acetylcysteine 20% Inhal Soln (4ml) INH SCH ×3 (02:41→16:35)
[2017-12-03] MEDS: Albuterol-Ipratrop 3 mg / 0.5 (3 ml) UD INH SCH ×3 (02:41→16:35)
[2017-12-03] MEDS: (Novolin R) Insulin Human Regular 100 units/ml vial SC SCH ×3 (07:45→16:50)
[2017-12-03] MEDS: Multivitamin Vitamin B Complex (Nephro-Vite) Tab PO SCH (08:33)
--- NOTE | 2017-12-03 08:57 | PN ---
DATE: 11/29/2017 FOLLOWUP RENAL CONSULTATION LOCATION: The patient is located in ICU, bed 3. REQUESTED BY: Theodore Lucas MD REASON FOR FOLLOWUP: End-stage renal disease for continuation of the hemodialysis and acute respiratory failure. HISTORY OF PRESENT ILLNESS: Mr. Gonzales is a 67-year-old elderly [place] male with a history of longstanding hypertension, diabetes, coronary artery disease status post CABG, CVA with left-sided weakness, COPD, end-stage renal disease, upper GI bleed, and status post multiple transfusions and status post pacemaker placement about 10 days ago and now, the patient was admitted on Sunday after dialysis with respiratory failure and the patient was found to have hypercarbic acute respiratory failure and requiring admission to ICU, on BiPAP initially and also found to have acute CHF and fluid overload. The patient was given an extra hemodialysis on Sunday and received Sunday his regular dialysis. The patient is very noncompliant with the fluid intake. The patient is not in acute distress. No chest pain and no palpitation. No fever and no cough. No nausea, vomiting or diarrhea. CURRENT MEDICATIONS: Include as follow; 4 mL inhaler q. 6 hours. and Colace 100 mg p.o. t.i.d., doxycycline 100 mg q. 12 hours, Duoneb inhaler, subcutaneous heparin 5000 units q. 12 hours, and Nephro-Renaldo one tablet daily, Procrit 10,000 units 3 times a week, Protonix 20 mg daily, Renvela 800 mg p.o. t.i.d., Rocephin 1 g daily and Solu-Medrol 20 mg IV q. 12 hours., Tylenol, Xanax and Zemplar 2 mcg IV 3 times a week. PHYSICAL EXAMINATION: VITAL SIGNS: His blood pressure this morning 139/37, pulse of 78, respirations of 16, temperature of 98, and oxygen saturation of 100%. Height is 5 feet 6 inches and weight is 210 pounds. GENERAL: Mr. Gonzales is a 67-year-old elderly obese [place] male, well built and well-nourished, not in any distress. HEENT: Pupils are normally reactive to light and accommodation. Conjunctivae are pink. Sclerae are anicteric. Tongue is moist. Trachea is midline. LUNGS: Symmetric on both sides. Bilateral breath sounds present. Bilateral basal crackles present, left more than the right. CARDIOVASCULAR SYSTEM: [place] at the fifth intercostal space in the midclavicular line. S1 and S2 audible. No murmur or gallop. The patient has a midsternal scar present from the previous CABG. ABDOMEN: Normal in appearance, soft, and tympanic. No guarding. No rigidity. No hepatosplenomegaly. CENTRAL NERVOUS SYSTEM: The patient is alert, awake, and oriented x3. Nonfocal neuro examination except for left-sided weakness from the previous CVA. EXTREMITIES: No cyanosis. No clubbing. The patient has a 2+edema in both lower extremities. LABORATORY DATA: No new labs are available for today and his Accu-Chek of 142, 180 and 111. Sputum culture is positive for yeast and blood culture x2 negative. MRSA screen was negative. ASSESSMENT: In summary, Mr. Gonzales is a 67-year-old elderly [place] male, obese with hypertension, diabetes, coronary artery disease, cerebrovascular accident with left-sided weakness with status post gastrointestinal bleed, multiple transfusions and status post pacemaker placement about 10 days ago with respiratory failure and hypercarbic acute respiratory failure hypoxemia. 1. End-stage renal disease. Continue hemodialysis 3 times a week, Sunday, and Sunday. 2. Anemia secondary to end-stage renal disease and recent gastrointestinal bleed. 3. Hypercarbic acute respiratory failure, hypoxic. 4. Congestive heart failure. 5. Coronary artery disease, asymptomatic. PLAN: Continue hemodialysis today. We will try to ultrafiltrate as much as the patient can tolerate 3 to 4 liter, if the patient can tolerate and restrict the fluids to 1 liter per day. We will follow with you. Thank you for allowing me to participate in your patient's care. Continue Procrit. Continue Renvela and Zemplar. Martin Ortiz MD
--- NOTE | 2017-12-03 09:29 | PN ---
DATE: 12/02/2017 FOLLOWUP RENAL CONSULTATION LOCATION: Room 353, bead A. REQUESTED BY: Dr. Theodore Lucas. HISTORY OF PRESENT ILLNESS: Mr. Gonzales is a 67 years old elderly obese [place] male with a past medical history significant for longstanding hypertension, diabetes, coronary artery disease status post CABG, CVA with left-sided weakness, status post pacemaker placement, status post GI bleed about 2 weeks ago was admitted with hypercarbic acute respiratory failure, requiring admission to ICU and BiPAP placement and also fluid overload. The patient is not in acute distress. Denies any headache or dizziness. Denies any chest pain or palpitation. Denies any fever or cough. No abdominal pain. No nausea, vomiting, diarrhea. The patient is very noncompliant with fluids and diet. PHYSICAL EXAMINATION: VITAL SIGNS: Blood pressure 164/70, pulse 83, respirations 20, temperature 98.8, saturation 98%. Height 5 feet 6 inches, weight is 210 pounds. GENERAL: Mr. Gonzales is a 67 years old elderly [place] male, well built, well nourished, not in acute distress. HEENT: Pupils normal, react to light and accommodation. Conjunctivae pink. Sclerae anicteric. The tongue is moist and trachea is midline. LUNGS: Symmetric on both sides. Bilateral breath sounds present. Bilateral basal crackles present. CVS: [place] at the fifth intercostal space, midclavicular line. S1 and S2 audible. No murmur or gallop. ABDOMEN: Normal in appearance, soft, tympanic. No guarding, no rigidity. No hepatosplenomegaly. PRACTICE COORDINATOR: The patient is alert, awake, oriented x3. Sensory system is grossly within normal limits. Motor left sided weakness with contracture to the left hand. EXTREMITIES: No cyanosis, no clubbing. The patient has 1-2+ edema in both lower extremities. MEDICATIONS: Acetylcysteine inhaler every 6 hours ,Anusol-HC per rectal b.i.d., Colace 100 mg p.o. t.i.d., DuoNeb inferior, Nephro-Renaldo 1 tablet daily, Humulin R per sliding scale, Procrit 10,000 units three times a week, Protonix 20 mg p.o. daily, Renvela 800 mg p.o. t.i.d., Solu-Medrol 20 mg IV every 12 hours, Tylenol, Xanax 0.25 mg p.o. at bedtime and Zemplar 2 mcg three times a week. LABORATORY DATA: As of 12/02/2017; sodium 141, potassium 5.2, chloride 99, CO2 30, BUN 54, creatinine 4.3, glucose 153, calcium 9.1, total bili 0.5, AST 41, ALT 62, alkaline phosphatase 86, total protein , albumin 3. ASSESSMENT: In summary, Mr. Gonzales is a 67 years old elderly [place] male obese with hypertension, diabetes, coronary artery disease status post coronary artery bypass graft, cerebrovascular accident with left-sided weakness status post upper gastrointestinal bleed status post pacemaker placement was admitted with hypercarbic acute respiratory failure and fluid overload. 1. End-stage renal disease. Continue hemodialysis three times a week and the patient may need four times a week as an outpatient. 2. Fluid overload. 3. Anemia secondary to recent gastrointestinal bleed. 4. Hyperkalemia. 5. Coronary artery disease status post coronary artery bypass graft, asymptomatic. PLAN: We will give Kayexalate 30 gm p.o. x1 dose and we will also add Lasix 40 mg p.o. b.i.d.. Repeat BMP in a.m. Restrict fluid 1 liter per day. We will follow with you. Discussed with the patient's niece at bedside. Thank you for allowing me to participate in your patient's care. Martin Ortiz MD
[2017-12-03] MEDS: MethylPREDNISolone 40 mg Vial IV SCH (09:47)
[2017-12-03] MEDS: Pantoprazole 20 mg EC Tab PO SCH (09:48)
[2017-12-03] MEDS: Hydrocortisone 2.5% Rectal Cream(30 gm) PR SCH ×2 (09:50→17:39)
[2017-12-03] MEDS ORDERED: cefTRIAXone IV 1 gm in Dextros 50 ML IVPB SCH (10:00)
--- NOTE | 2017-12-03 12:22 | CP.PCM.PN ---
Subjective - Date & Time of Evaluation Date of Evaluation: 12/03/17 Time of Evaluation: 12:22 - Subjective Subjective: pt is seen and examined, follow up consult is dictated #[id number] Objective - Vital Signs/Intake and Output Vital Signs (last 24 hours): Temp Pulse Resp BP Pulse Ox 98.3 F 82 20 191/73 H 96 12/03/17 00:00 12/03/17 00:00 12/03/17 00:00 12/03/17 09:46 12/03/17 00:00 Intake and Output: 12/03/17 12/03/17 06:59 18:59 Intake Total 200 250 Balance 200 250 - Medications Medications: Current Medications Acetaminophen (Tylenol 325mg Tab) 650 mg PO Q6 PRN PRN Reason: Pain or Fever Last Admin: 12/03/17 11:02 Dose: 650 mg Acetylcysteine (Acetylcysteine 20%) 4 ml INH RQ6 [facility] Last Admin: 12/03/17 07:50 Dose: 4 ml Albuterol/Ipratropium (Duoneb 3 Mg/0.5 Mg (3 Ml) Ud) 3 ml INH RQ6 [facility] Last Admin: 12/03/17 07:50 Dose: 3 ml Alprazolam (Xanax) 0.25 mg PO HS [facility] Last Admin: 12/02/17 21:26 Dose: 0.25 mg Docusate Sodium (Colace) 100 mg PO TID [facility] Last Admin: 12/03/17 09:46 Dose: 100 mg Epoetin Mario (Procrit) 10,000 unit IV TTS [facility] Last Admin: 12/01/17 10:56 Dose: 10,000 unit Furosemide (Lasix) 40 mg PO BID [facility] Last Admin: 12/03/17 09:46 Dose: 40 mg Hydrocortisone (Anusol-Hc) 0 gm [place] BID [facility] Last Admin: 12/03/17 09:50 Dose: 1 applic Ceftriaxone Sodium (Rocephin Iv 1 Gm Duplex) 50 mls @ 100 mls/hr IVPB DAILY [facility] PRN Reason: Protocol Last Admin: 12/03/17 10:17 Dose: 100 mls/hr Insulin Human Regular (Novolin R) 0 unit SC ACHS [facility] PRN Reason: Protocol Last Admin: 12/03/17 11:53 Dose: Not Given Methylprednisolone (Solu-Medrol) 20 mg IV Q12 [facility] Last Admin: 12/03/17 09:47 Dose: 20 mg Pantoprazole Sodium (Protonix Ec Tab) 20 mg PO DAILY [facility] Last Admin: 12/03/17 09:48 Dose: 20 mg Paricalcitol (Zemplar) 2 mcg IV TTS [facility] Last Admin: 12/01/17 10:44 Dose: 2 mcg Sevelamer Carbonate (Renvela) 800 mg PO TIDCC [facility] Last Admin: 12/03/17 08:32 Dose: 800 mg Vitamin B Complex/Vit C/Folic Acid (Nephro-Renaldo) 1 tab PO 0800 [facility] Last Admin: 12/03/17 08:33 Dose: 1 tab - Labs Labs: 12/01/17 08:03 12/02/17 08:01 PT 11.2 SECONDS (9.7-12.2) 11/24/17 18:03 INR 1.0 11/24/17 18:03 APTT 38 SECONDS (21-34) H 11/24/17 18:03
[2017-12-03 13:20] LABS: ARTERIAL BLOOD GAS HCO3 25.3 mmol/L (21-28); ARTERIAL BLOOD GAS HEMOGLOBIN 10.4 g/dL (11.7-17.4); ARTERIAL BLOOD GAS O2 SAT 94.2 % (95-98); ARTERIAL BLOOD GAS PCO2 62 mm/Hg (35-45); ARTERIAL BLOOD GAS PH 7.27 (7.35-7.45); ARTERIAL BLOOD GAS PO2 62 mm/Hg (80-100); ARTERIAL BLOOD GAS TCO2 30.4 mmol/L (22-28)
--- NOTE | 2017-12-03 13:21 | CP.PCM.PN ---
Subjective - Date & Time of Evaluation Date of Evaluation: 12/03/17 Time of Evaluation: 09:00 - Subjective Subjective: improving less edema Objective - Vital Signs/Intake and Output Vital Signs (last 24 hours): Temp Pulse Resp BP Pulse Ox 98.3 F 82 20 191/73 H 96 12/03/17 00:00 12/03/17 00:00 12/03/17 00:00 12/03/17 09:46 12/03/17 00:00 Intake and Output: 12/03/17 12/03/17 06:59 18:59 Intake Total 200 250 Balance 200 250 - Medications Medications: Current Medications Acetaminophen (Tylenol 325mg Tab) 650 mg PO Q6 PRN PRN Reason: Pain or Fever Last Admin: 12/03/17 11:02 Dose: 650 mg Acetylcysteine (Acetylcysteine 20%) 4 ml INH RQ6 [facility] Last Admin: 12/03/17 07:50 Dose: 4 ml Albuterol/Ipratropium (Duoneb 3 Mg/0.5 Mg (3 Ml) Ud) 3 ml INH RQ6 [facility] Last Admin: 12/03/17 07:50 Dose: 3 ml Alprazolam (Xanax) 0.25 mg PO HS [facility] Last Admin: 12/02/17 21:26 Dose: 0.25 mg Docusate Sodium (Colace) 100 mg PO TID [facility] Last Admin: 12/03/17 09:46 Dose: 100 mg Epoetin Mario (Procrit) 10,000 unit IV TTS [facility] Last Admin: 12/01/17 10:56 Dose: 10,000 unit Furosemide (Lasix) 40 mg PO BID [facility] Last Admin: 12/03/17 09:46 Dose: 40 mg Hydrocortisone (Anusol-Hc) [address] BID [facility] Last Admin: 12/03/17 09:50 Dose: 1 applic Ceftriaxone Sodium (Rocephin Iv 1 Gm Duplex) 50 mls @ 100 mls/hr IVPB DAILY [facility] PRN Reason: Protocol Last Admin: 12/03/17 10:17 Dose: 100 mls/hr Insulin Human Regular (Novolin R) 0 unit SC ACHS [facility] PRN Reason: Protocol Last Admin: 12/03/17 11:53 Dose: Not Given Methylprednisolone (Solu-Medrol) 20 mg IV Q12 [facility] Last Admin: 12/03/17 09:47 Dose: 20 mg Pantoprazole Sodium (Protonix Ec Tab) 20 mg PO DAILY [facility] Last Admin: 12/03/17 09:48 Dose: 20 mg Paricalcitol (Zemplar) 2 mcg IV TTS [facility] Last Admin: 12/01/17 10:44 Dose: 2 mcg Sevelamer Carbonate (Renvela) 800 mg PO TIDCC [facility] Last Admin: 12/03/17 08:32 Dose: 800 mg Vitamin B Complex/Vit C/Folic Acid (Nephro-Renaldo) 1 tab PO 0800 [facility] Last Admin: 12/03/17 08:33 Dose: 1 tab - Labs Labs: 12/01/17 08:03 12/02/17 08:01 PT 11.2 SECONDS (9.7-12.2) 11/24/17 18:03 INR 1.0 11/24/17 18:03 APTT 38 SECONDS (21-34) H 11/24/17 18:03 - Constitutional Appears: Non-toxic, Chronically Ill - Head Exam Head Exam: NORMOCEPHALIC - Eye Exam Eye Exam: PERRL - ENT Exam ENT Exam: Normal External Ear Exam - Neck Exam Neck Exam: absent: Lymphadenopathy - Respiratory Exam Respiratory Exam: Decreased Breath Sounds - Cardiovascular Exam Cardiovascular Exam: REGULAR RHYTHM Assessment and Plan (1) Atelectasis of right lung Status: Acute (2) Dyspnea Status: Acute (3) Hypercapnic respiratory failure Status: Acute (4) Syncope Status: Acute (5) ESRD (end stage renal disease) on dialysis Status: Chronic
--- NOTE | 2017-12-03 16:10 | CP.PCM.PN ---
Subjective - Date & Time of Evaluation Date of Evaluation: 12/03/17 Time of Evaluation: 11:55 - Subjective Subjective: Patient seen and examined Denies shortness of breath Awake and responsive Wants to go back to custodial On BiPAP at night ABG noted Objective - Vital Signs/Intake and Output Vital Signs (last 24 hours): Temp Pulse Resp BP Pulse Ox 97.7 F 90 20 187/77 H 97 12/03/17 08:00 12/03/17 14:50 12/03/17 08:00 12/03/17 14:50 12/03/17 08:00 Intake and Output: 12/03/17 12/03/17 06:59 18:59 Intake Total 200 250 Balance 200 250 - Medications Medications: Current Medications Acetaminophen (Tylenol 325mg Tab) 650 mg PO Q6 PRN PRN Reason: Pain or Fever Last Admin: 12/03/17 16:03 Dose: 650 mg Acetylcysteine (Acetylcysteine 20%) 4 ml INH RQ6 [facility] Last Admin: 12/03/17 07:50 Dose: 4 ml Albuterol/Ipratropium (Duoneb 3 Mg/0.5 Mg (3 Ml) Ud) 3 ml INH RQ6 [facility] Last Admin: 12/03/17 07:50 Dose: 3 ml Alprazolam (Xanax) 0.25 mg PO HS [facility] Last Admin: 12/02/17 21:26 Dose: 0.25 mg Docusate Sodium (Colace) 100 mg PO TID [facility] Last Admin: 12/03/17 14:25 Dose: 100 mg Epoetin Mario (Procrit) 10,000 unit IV TTS [facility] Last Admin: 12/01/17 10:56 Dose: 10,000 unit Furosemide (Lasix) 40 mg PO BID [facility] Last Admin: 12/03/17 09:46 Dose: 40 mg Hydrocortisone (Anusol-Hc) 0 gm [place] BID [facility] Last Admin: 12/03/17 09:50 Dose: 1 applic Ceftriaxone Sodium (Rocephin Iv 1 Gm Duplex) 50 mls @ 100 mls/hr IVPB DAILY [facility] PRN Reason: Protocol Last Admin: 12/03/17 10:17 Dose: 100 mls/hr Insulin Human Regular (Novolin R) 0 unit SC ACHS [facility] PRN Reason: Protocol Last Admin: 12/03/17 11:53 Dose: Not Given Lisinopril (Zestril) 2.5 mg PO DAILY [facility] Last Admin: 12/03/17 15:14 Dose: 2.5 mg Methylprednisolone (Solu-Medrol) 20 mg IV Q12 [facility] Last Admin: 12/03/17 09:47 Dose: 20 mg Ondansetron HCl (Zofran Tab) 4 mg PO Q8H PRN PRN Reason: Nausea/Vomiting Last Admin: 12/03/17 15:34 Dose: 4 mg Pantoprazole Sodium (Protonix Ec Tab) 20 mg PO DAILY [facility] Last Admin: 12/03/17 09:48 Dose: 20 mg Paricalcitol (Zemplar) 2 mcg IV TTS [facility] Last Admin: 12/01/17 10:44 Dose: 2 mcg Sevelamer Carbonate (Renvela) 800 mg PO TIDCC [facility] Last Admin: 12/03/17 14:24 Dose: 800 mg Vitamin B Complex/Vit C/Folic Acid (Nephro-Renaldo) 1 tab PO 0800 [facility] Last Admin: 12/03/17 08:33 Dose: 1 tab - Labs Labs: 12/01/17 08:03 12/02/17 08:01 PT 11.2 SECONDS (9.7-12.2) 11/24/17 18:03 INR 1.0 11/24/17 18:03 APTT 38 SECONDS (21-34) H 11/24/17 18:03 - Head Exam Head Exam: ATRAUMATIC, NORMOCEPHALIC - ENT Exam ENT Exam: Mucous Membranes Moist - Neck Exam Neck Exam: Normal Inspection - Respiratory Exam Respiratory Exam: Decreased Breath Sounds - Cardiovascular Exam Cardiovascular Exam: REGULAR RHYTHM - GI/Abdominal Exam GI & Abdominal Exam: Soft, Normal Bowel Sounds Assessment and Plan (1) Hypercapnic respiratory failure Assessment & Plan: BiPAP at night and as needed Nebulizer treatment Budesonide Continue hemodialysis Case discussed with family Status: Acute (2) ESRD (end stage renal disease) on dialysis Status: Chronic (3) CAD (coronary artery disease) of artery bypass graft Status: Acute (4) COPD (chronic obstructive pulmonary disease) Status: Acute
--- NOTE | 2017-12-03 16:18 | CP.PCM.PN ---
Subjective - Date & Time of Evaluation Date of Evaluation: 12/03/17 Time of Evaluation: 11:00 - Subjective Subjective: alert, awake, no sob, no acute distress. Objective - Vital Signs/Intake and Output Vital Signs (last 24 hours): Temp Pulse Resp BP Pulse Ox 97.7 F 90 20 187/77 H 97 12/03/17 08:00 12/03/17 14:50 12/03/17 08:00 12/03/17 14:50 12/03/17 08:00 Intake and Output: 12/03/17 12/03/17 06:59 18:59 Intake Total 200 250 Balance 200 250 - Medications Medications: Current Medications Acetaminophen (Tylenol 325mg Tab) 650 mg PO Q6 PRN PRN Reason: Pain or Fever Last Admin: 12/03/17 16:03 Dose: 650 mg Acetylcysteine (Acetylcysteine 20%) 4 ml INH RQ6 BELL Last Admin: 12/03/17 07:50 Dose: 4 ml Albuterol/Ipratropium (Duoneb 3 Mg/0.5 Mg (3 Ml) Ud) 3 ml INH RQ6 BELL Last Admin: 12/03/17 07:50 Dose: 3 ml Alprazolam (Xanax) 0.25 mg PO HS BELL Last Admin: 12/02/17 21:26 Dose: 0.25 mg Docusate Sodium (Colace) 100 mg PO TID BELL Last Admin: 12/03/17 14:25 Dose: 100 mg Epoetin Mario (Procrit) 10,000 unit IV TTS [facility] Last Admin: 12/01/17 10:56 Dose: 10,000 unit Furosemide (Lasix) 40 mg PO BID BELL Last Admin: 12/03/17 09:46 Dose: 40 mg Hydrocortisone (Anusol-Hc) 0 gm VT BID BELL Last Admin: 12/03/17 09:50 Dose: 1 applic Ceftriaxone Sodium (Rocephin Iv 1 Gm Duplex) 50 mls @ 100 mls/hr IVPB DAILY BELL PRN Reason: Protocol Last Admin: 12/03/17 10:17 Dose: 100 mls/hr Insulin Human Regular (Novolin R) 0 unit SC ACHS BELL PRN Reason: Protocol Last Admin: 12/03/17 11:53 Dose: Not Given Lisinopril (Zestril) 2.5 mg PO DAILY [facility] Last Admin: 12/03/17 15:14 Dose: 2.5 mg Methylprednisolone (Solu-Medrol) 20 mg IV Q12 [facility] Last Admin: 12/03/17 09:47 Dose: 20 mg Ondansetron HCl (Zofran Tab) 4 mg PO Q8H PRN PRN Reason: Nausea/Vomiting Last Admin: 12/03/17 15:34 Dose: 4 mg Pantoprazole Sodium (Protonix Ec Tab) 20 mg PO DAILY [facility] Last Admin: 12/03/17 09:48 Dose: 20 mg Paricalcitol (Zemplar) 2 mcg IV TTS [facility] Last Admin: 12/01/17 10:44 Dose: 2 mcg Sevelamer Carbonate (Renvela) 800 mg PO TIDCC [facility] Last Admin: 12/03/17 14:24 Dose: 800 mg Vitamin B Complex/Vit C/Folic Acid (Nephro-Renaldo) 1 tab PO 0800 [facility] Last Admin: 12/03/17 08:33 Dose: 1 tab - Labs Labs: 12/01/17 08:03 12/02/17 08:01 PT 11.2 SECONDS (9.7-12.2) 11/24/17 18:03 INR 1.0 11/24/17 18:03 APTT 38 SECONDS (21-34) H 11/24/17 18:03 Assessment and Plan - Assessment and Plan (Free Text) Assessment: Patient is seen and examined. complaints of some nausea, no respiratory distress.Cleared by DR Rodas to discharge back to [facility] today. Will continue with cipro by mouth daily x 7 days.
[2017-12-03 17:00] VITALS: BP 178/77; PULSE 97; TEMP 98.4; O2SAT 94
--- NOTE | 2017-12-04 03:03 | PN ---
DATE: 12/03/2017 FOLLOWUP RENAL CONSULTATION LOCATION: The patient is located in room 353, bed A. REQUESTED BY: Theodore Lucas MD REASON FOR FOLLOWUP: End-stage renal disease, for continuation of the hemodialysis. HISTORY OF PRESENT ILLNESS: Mr. Gonzales is a 67-year-old elderly obese Thai male with a past medical history significant for longstanding hypertension, diabetes, coronary artery disease, status post CABG, CVA with left-sided weakness, end-stage renal disease, on hemodialysis three times a week, noncompliance with diet and fluid intake who was admitted with acute respiratory failure and hypercarbic respiratory failure, requiring transfer to ICU and treatment with BiPAP and also treated with extra hemodialysis for fluid overload. The patient is not in acute distress. Denies any headache, dizziness. Denies any chest pain or palpitation. Denies any fever or cough. The patient complains of back pain and also swelling of the legs, not in distress on nasal cannula. PHYSICAL EXAMINATION: VITAL SIGNS: This morning as follows, blood pressure 146/88, pulse 87, respirations 20, temperature 97.7, saturation 97%. Height 5 feet 6 inches and weight is 210 pounds. GENERAL: Mrs. Conor Gonzales is a 67-year-old obese male, not in distress. HEENT: Pupils normal and reactive to light and accommodation. Conjunctivae pink. Sclerae anicteric. Tongue is moist. Trachea is midline. LUNGS: Symmetric on both sides. Bilateral breath sounds present. Bilateral basal crackles present. CVS: [place] at the fifth intercostal space, midclavicular line. S1, S2 audible. No murmur or gallop. ABDOMEN: Normal in appearance, soft, tympanic. No guarding. No rigidity. No hepatosplenomegaly. [place] [employer]: The patient is alert, awake, and oriented x3. Sensory system is within normal limits. Motor system, left-sided weakness with left hand contractures. EXTREMITIES: No cyanosis, no clubbing. The patient has 2+ edema in both lower extremities. MEDICATIONS: His current medications include as follows: Renvela, lactulose, gabapentin, Nephro-Renaldo, Feosol, atorvastatin, aspirin, DuoNeb inhaler, prednisone 20 mg p.o. daily, Zofran 4 mg p.o. every 8 hours p.r.n., Zestril 2.5 mg p.o. daily, ciprofloxacin 500 mg p.o. daily. LABORATORY DATA: His ABG, pH 7.27, pCO2 of 62, pO2 of 62, bicarb is 25.3, saturation 94.2 on 2 liters nasal cannula. IMPRESSION: In summary, Mr. Gonzales is a 67-year-old elderly obese Thai male with hypertension, diabetes, end-stage renal disease, coronary artery disease, cerebrovascular accident, and chronic obstructive pulmonary disease. 1. End-stage renal disease. Continue hemodialysis three times a week; Sunday, , Sunday, may need an extra hemodialysis. We will discuss with the patient. If the patient agrees, we will consider extra hemodialysis every week. 2. Anemia secondary to renal failure and recent blood loss. 3. Chronic obstructive pulmonary disease. Continue prednisone as per Pulmonary and also inhalers as per Pulmonary recommendations. Restrict fluids to 1 liter per day. Advised to watch the diet, low sodium, low potassium diet. We will follow with you. Thank you for allowing me to participate in your patient's care. Martin Ortiz MD
--- NOTE | 2017-12-06 18:06 | CP.PCM.DIS ---
Provider - Provider Date of Admission: 11/24/17 22:15 Attending physician: Theodore Lucas MD Primary care physician: mik Consults: barry reyes Time Spent in preparation of Discharge (in minutes): 45 Diagnosis - Discharge Diagnosis (1) Atelectasis of right lung Status: Acute (2) Dyspnea Status: Acute (3) Hypercapnic respiratory failure Status: Acute (4) Syncope Status: Acute (5) ESRD (end stage renal disease) on dialysis Status: Chronic Hospital Course - Lab Results Lab Results: Micro Results 11/30/17 06:19 Nose MRSA Culture - Final MRSA NOT DETECTED 11/24/17 18:00 Blood Blood Culture - Final NO GROWTH AFTER 5 DAYS 11/24/17 18:00 Blood Gram Stain - Final TEST NOT PERFORMED 11/24/17 17:40 Blood Blood Culture - Final NO GROWTH AFTER 5 DAYS 11/24/17 17:40 Blood Gram Stain - Final TEST NOT PERFORMED 11/25/17 12:26 Sputum Gram Stain - Final 11/25/17 12:26 Sputum Sputum Culture - Final Yeast Species 11/24/17 10:30 Naris MRSA Culture (Admit) - Final MRSA NOT DETECTED Most Recent Lab Values WBC 8.0 K/uL (4.8-10.8) 12/01/17 08:03 RBC 2.94 Mil/uL (4.40-5.90) L 12/01/17 08:03 Hgb 9.9 g/dL (12.0-18.0) L 12/01/17 08:03 Hct 29.8 % (35.0-51.0) L 12/01/17 08:03 MCV 101.4 fL (80.0-94.0) H 12/01/17 08:03 MCH 33.6 pg (27.0-31.0) H 12/01/17 08:03 MCHC 33.2 g/dL (33.0-37.0) 12/01/17 08:03 RDW 21.3 % (11.5-14.5) H 12/01/17 08:03 Plt Count 123 K/uL (130-400) L 12/01/17 08:03 MPV 8.5 fL (7.2-11.7) 12/01/17 08:03 Neut % (Auto) 84.9 % (50.0-75.0) H 12/01/17 08:03 Lymph % (Auto) 9.5 % (20.0-40.0) L 12/01/17 08:03 [place] % (Auto) 5.3 % (0.0-10.0) 12/01/17 08:03 Eos % (Auto) 0.0 % (0.0-4.0) 12/01/17 08:03 Baso % (Auto) 0.3 % (0.0-2.0) 12/01/17 08:03 Neut # (Auto) 6.8 K/uL (1.8-7.0) 12/01/17 08:03 Lymph # (Auto) 0.8 K/uL (1.0-4.3) L 12/01/17 08:03 [place] # (Auto) 0.4 K/uL (0.0-0.8) 12/01/17 08:03 Eos # (Auto) 0.0 K/uL (0.0-0.7) 12/01/17 08:03 Baso # (Auto) 0.0 K/uL (0.0-0.2) 12/01/17 08:03 Neutrophils % (Manual) 71 % (50-75) 12/01/17 08:03 Band Neutrophils % 6 % (0-2) H 12/01/17 08:03 Lymphocytes % (Manual) 10 % (20-40) L 12/01/17 08:03 Monocytes % (Manual) 7 % (0-10) 12/01/17 08:03 Eosinophils % (Manual) 6 % (0-4) H 11/30/17 07:08 Metamyelocytes % 2 % (0-0) H 12/01/17 08:03 Myelocytes % 4 % (0-0) H 12/01/17 08:03 Nucleated RBC % 2 % (0-0) H 12/01/17 08:03 Toxic Granulation Present 11/30/17 07:08 Platelet Estimate Normal (NORMAL) 12/01/17 08:03 Polychromasia Slight 12/01/17 08:03 Hypochromasia (manual) Slight 12/01/17 08:03 Poikilocytosis (manual Slight 12/01/17 08:03 Basophilic Stippling Slight 11/30/17 07:08 Anisocytosis (manual) Moderate 12/01/17 08:03 Macrocytosis (manual) Slight 12/01/17 08:03 Spherocytes Slight 12/01/17 08:03 Tear Drop Cells Slight 12/01/17 08:03 Ovalocytes Slight 12/01/17 08:03 PT 11.2 SECONDS (9.7-12.2) 11/24/17 18:03 INR 1.0 11/24/17 18:03 APTT 38 SECONDS (21-34) H 11/24/17 18:03 Puncture Site Lb 12/03/17 13:10 pCO2 62 mm/Hg (35-45) H 12/03/17 13:10 pO2 62 mm/Hg (80-100) L 12/03/17 13:10 HCO3 25.3 mmol/L (21-28) 12/03/17 13:10 ABG pH 7.27 (7.35-7.45) L 12/03/17 13:10 ABG Total CO2 30.4 mmol/L (22-28) H 12/03/17 13:10 ABG O2 Saturation 94.2 % (95-98) L 12/03/17 13:10 ABG Base Excess 0.7 mmol/L (-2.0-3.0) 12/03/17 13:10 ABG Hemoglobin 10.4 g/dL (11.7-17.4) L 12/03/17 13:10 ABG Carboxyhemoglobin 3.1 % (0.5-1.5) H 12/03/17 13:10 POC ABG HHb (Measured) 5.5 % (0.0-5.0) H 12/03/17 13:10 ABG Methemoglobin 1.3 % (0.0-3.0) 12/03/17 13:10 Esvin Test Na 12/03/17 13:10 VBG pH 7.19 (7.32-7.43) L* 11/24/17 17:58 VBG pCO2 109 mmHg (40-60) H* 11/24/17 17:58 VBG HCO3 31.0 mmol/L 11/24/17 17:58 VBG Total CO2 44.9 mmol/L (22-28) H 11/24/17 17:58 VBG O2 Sat (Calc) 79.9 % (40-65) H 11/24/17 17:58 VBG Base Excess 9.0 mmol/L (0.0-2.0) H 11/24/17 17:58 VBG Potassium 3.6 mmol/L (3.6-5.2) 11/24/17 17:58 A-a O2 Difference 6.0 mm/Hg 11/27/17 11:37 Respiratory Index 0.1 11/27/17 11:37 Hgb O2 Saturation 90.1 % (95.0-98.0) L 12/03/17 13:10 Sodium 139.0 mmol/l (132-148) 11/24/17 17:58 Chloride 99.0 mmol/L (98-107) 11/24/17 17:58 Glucose 135 mg/dl (75-110) H 11/24/17 17:58 Lactate 0.8 mmol/L (0.7-2.1) 11/24/17 17:58 Liter Flow 2.0 12/03/17 13:10 Vent Mode Bipap 11/25/17 06:35 FiO2 30.0 % 11/27/17 11:37 Inspiratory BiPAP 12 11/25/17 06:35 Expiratory BiPAP 6 11/25/17 06:35 Crit Value Called To Dr juan carlos solares 11/27/17 11:37 Crit Value Called By Michelle marshall equipment associate 11/27/17 11:37 Crit Value Read Back Y 11/27/17 11:37 Blood Gas Notified Time 1210 11/27/17 11:37 Sodium 141 mmol/L (132-148) 12/02/17 08:01 Potassium 5.2 mmol/L (3.6-5.2) 12/02/17 08:01 Chloride 99 mmol/L (98-107) 12/02/17 08:01 Carbon Dioxide 30 mmol/L (22-30) 12/02/17 08:01 Anion Gap 18 (10-20) 12/02/17 08:01 BUN 54 mg/dL (9-20) H 12/02/17 08:01 Creatinine 4.3 mg/dL (0.8-1.5) H 12/02/17 08:01 Est GFR ( Amer) 17 12/02/17 08:01 Est GFR (Non-Af Amer) 14 12/02/17 08:01 POC Glucose (mg/dL) 208 mg/dL (65-110) H 12/03/17 16:32 Random Glucose 153 mg/dL (75-110) H 12/02/17 08:01 Calcium 9.1 mg/dl (8.6-10.4) 12/02/17 08:01 Phosphorus 3.6 mg/dL (2.5-4.5) 11/27/17 06:05 Magnesium 2.2 mg/dL (1.6-2.3) 11/27/17 06:05 Total Bilirubin 0.5 mg/dL (0.2-1.3) 12/02/17 08:01 AST 41 U/L (17-59) 12/02/17 08:01 ALT 62 U/L (21-72) 12/02/17 08:01 Alkaline Phosphatase 86 U/L (38-126) 12/02/17 08:01 Troponin I 0.0840 ng/mL (0.00-0.120) 11/24/17 18:03 NT-Pro-B Natriuret Pep 65118 pg/mL (0-900) H 11/24/17 18:03 Total Protein 5.9 g/dL (6.3-8.3) L 12/02/17 08:01 Albumin 3.0 g/dL (3.5-5.0) L 12/02/17 08:01 Globulin 3.0 gm/dL (2.2-3.9) 12/02/17 08:01 Albumin/Globulin Ratio 1.0 (1.0-2.1) 12/02/17 08:01 Procalcitonin 3.73 NG/ML (0.19-0.49) H 11/27/17 06:05 Venous Blood Potassium 3.6 mmol/L (3.6-5.2) 11/24/17 17:58 Influenza Typ A,B (EIA) Negative for flu a/b (NEGATIVE) 11/27/17 11:06 RSV Antigen Negative (NEGATIVE) 11/27/17 11:06 - Hospital Course Hospital Course: admitted with CHF, fluid overload, hypercapneic resp failure, pneumonia , ckd on HD Discharge Exam - Head Exam Head Exam: ATRAUMATIC, NORMOCEPHALIC - Eye Exam Eye Exam: EOMI, PERRL Pupil Exam: NORMAL ACCOMODATION - ENT Exam ENT Exam: Mucous Membranes Dry - Respiratory Exam Respiratory Exam: Decreased Breath Sounds, Prolonged Expiratory Phase, Rhonchi - Cardiovascular Exam Cardiovascular Exam: REGULAR RHYTHM, +S1, +S2 - GI/Abdominal Exam GI & Abdominal Exam: Diminished Bowel Sounds, Soft. absent: Tenderness - Rectal Exam Rectal Exam: Deferred - Exam Exam: NORMAL INSPECTION - Extremities Exam Extremities exam: pedal edema - Back Exam Back exam: absent: CVA tenderness (L), CVA tenderness (R) - Neurological Exam Neurological exam: Alert, CN II-XII Intact, Motor Sensory Deficit, Oriented x3 Additional comments: left sided weakness - Psychiatric Exam Psychiatric exam: Depressed - Skin Skin Exam: Dry Discharge Plan - Discharge Medications Prescriptions: Ciprofloxacin HCl [Cipro] 500 mg PO DAILY #7 tablet predniSONE [Prednisone] 20 mg PO DAILY 7 Days tab - Follow Up Plan Condition: STABLE Disposition: REHAB FACILITY/REHAB UNIT Instructions: Shortness of Breath (Dyspnea) (DC), Syncope (Fainting) (DC), End Stage Kidney Disease (DC) Referrals: Theodore Lucas MD [Staff Provider] -
== END 2017-12-03 19:44 | DRG 207 ==
LOC: C.ER 17:26 → C.9E 22:15 → C.9I 22:26 → C.3T 11-29 23:22
PROVIDERS: ADMIT Internal Medicine; ATTEND Internal Medicine
PROC: 5A1955Z Respiratory Ventilation, Greater than 96 Consecutive Hours (ICD-10-PCS; principal; 2017-11-24)
PROC: 5A1D70Z Performance of Urinary Filtration, Intermittent, Less than 6 Hours Per Day (ICD-10-PCS; 2017-11-26)
PROC: 5A1D70Z Performance of Urinary Filtration, Intermittent, Less than 6 Hours Per Day (ICD-10-PCS; 2017-11-27)
PROC: 5A1D70Z Performance of Urinary Filtration, Intermittent, Less than 6 Hours Per Day (ICD-10-PCS; 2017-11-29)
PROC: 5A1D70Z Performance of Urinary Filtration, Intermittent, Less than 6 Hours Per Day (ICD-10-PCS; 2017-11-30)
PROC: 5A1D70Z Performance of Urinary Filtration, Intermittent, Less than 6 Hours Per Day (ICD-10-PCS; 2017-12-01)
DX: J96.02 Acute respiratory failure with hypercapnia (principal); N18.6 End stage renal disease; J18.9 Pneumonia, unspecified organism; I13.2 Hypertensive heart and chronic kidney disease with heart failure and with stage 5 chronic kidney disease, or end stage renal disease; J44.0 Chronic obstructive pulmonary disease with (acute) lower respiratory infection; R55 Syncope and collapse; E87.5 Hyperkalemia; Z99.2 Dependence on renal dialysis; Z91.19 Patient's noncompliance with other medical treatment and regimen; Z95.0 Presence of cardiac pacemaker; D63.1 Anemia in chronic kidney disease; E78.5 Hyperlipidemia, unspecified; K59.00 Constipation, unspecified; Z91.11 Patient's noncompliance with dietary regimen; Z74.01 Bed confinement status; E66.9 Obesity, unspecified; G47.33 Obstructive sleep apnea (adult) (pediatric); I25.10 Atherosclerotic heart disease of native coronary artery without angina pectoris; E11.22 Type 2 diabetes mellitus with diabetic chronic kidney disease; I50.9 Heart failure, unspecified

== ENCOUNTER 2018-02-07 21:28 | Emergency (ER) | payer MEDICARE, MEDICAID ==
[2018-02-07 21:28] VITALS: BMI 33.4
[2018-02-07 21:45] VITALS: TEMP 98.4
--- NOTE | 2018-02-07 21:59 | C.PDOC ---
History Of Present Illness 67 year old male presents to the ER with a complaint of SOB and chest pain. He is a Sunday, , Sunday dialysis patient, last dialyzed this afternoon. Denies fever, chills, nausea, or vomiting. Time Seen by Provider: 02/07/18 21:45 Chief Complaint (Nursing): Shortness Of Breath History Per: Patient History/Exam Limitations: no limitations Onset/Duration Of Symptoms: Hrs Current Symptoms Are (Timing): Still Present Associated Symptoms: Chest Pain, Other ((+) SOB (-) Vomiting, Nausea). denies: Fever, Chills Recent travel outside of the [place]: No Past Medical History Reviewed: Historical Data, Nursing Documentation, Vital Signs Vital Signs: Last Vital Signs Temp 98.4 F 02/07/18 21:40 Pulse 80 02/07/18 22:32 Resp 19 02/07/18 22:32 BP 128/36 L 02/07/18 22:32 Pulse Ox 97 02/07/18 23:43 - Medical History PMH: Anemia, Asthma, CHF, COPD, CVA (affecting left side), Depression ('MAJOR DEPRESSIVE DISORDER,SINGLE EPISODE,UNSPECIFIED"), HTN, Hypercholesterolemia, Hyperlipidemia, Peripheral Edema, End Stage Renal Disease, Chronic Kidney Disease, Sleep Apnea Surgical History: CABG, Endoscopy, Pacemaker - [facility] Procedures (11/24/17) DIALYSIS ARTERIOVENOSTOM (10/07/14) EXCISION OF DUODENUM, ENDO (11/10/17) EXCISION OF SIGMOID COLON, ENDO, DIAGN (09/26/16) INCIS W REM OF FORIEGN BODY OR DEV FROM SKIN & SUBCUT TISSUE (12/23/14) INSERT PACE. DUAL MARGIE IN CHEST SUBCU/FASCIA, OPEN (11/10/17) INSERTION OF PACEMAKER LEAD INTO R VENTRICLE, PERC APPROACH (11/10/17) INSERTION OF PACEMAKER LEAD INTO RIGHT ATRIUM, PERC APPROACH (11/10/17) MONITORING OF VENOUS PRESSURE, CENTRAL, PERC APPROACH (11/10/17) PERFORMANCE OF URINARY FILTRATION, MULTIPLE (04/11/17) RESPIRATORY VENTILATION, GREATER THAN 96 CONSECUTIVE HOURS (11/24/17) RESPIRATORY VENTILATION, LESS THAN 24 CONSECUTIVE HOURS (11/10/17) Family History: States: Unknown Family Hx - Social History Hx Alcohol Use: No Hx Substance Use: No - Immunization History Hx Influenza Vaccination: No (refuses) Hx Pneumococcal Vaccination: No (refuses) Review Of Systems Except As Marked, All Systems Reviewed And Found Negative. Cardiovascular: Positive for: Chest Pain Respiratory: Positive for: Shortness of Breath Physical Exam - Physical Exam Appears: Non-toxic Skin: Warm, Dry Head: Atraumatic, Normacephalic Eye(s): bilateral: Normal Inspection Oral Mucosa: Moist Neck: Normal, Supple Chest: No Tenderness Cardiovascular: Rhythm Regular Respiratory: Normal Breath Sounds, No Rales, No Rhonchi, No Wheezing Gastrointestinal/Abdominal: Soft, No Tenderness Extremity: Capillary Refill (<2 seconds), Other (Left av fistula with thrill) Neurological/Psych: Oriented x3, Normal Speech, Other (Lower extremity and left upper extremity paralysis from prior CVA.) ED Course And Treatment - Laboratory Results Result Diagrams: 02/07/18 22:08 02/07/18 22:08 O2 Sat by Pulse Oximetry: 97 (Room air) Pulse Ox Interpretation: Normal Medical Decision Making Medical Decision Making: EKG, blood work, and CXR ordered. cxr - chf case discussed with Dr. Lucas and will admit to telemetry consult for Dr. Ortiz telephone message left for Dr. Carlos Andrews. [id number] - patient states he do not wish to stay in hospital and will sign out ama advised by leaving he is assuming responsibility of his care and do not hold myself or staff responsible for potential negative outcome including patient states understanding Disposition Discussed With : Theodore Lucas Counseled Patient/Family Regarding: Studies Performed, Diagnosis - Disposition Referrals: Carlos Andrews, [Primary Care Provider] - Disposition: AGAINST MEDICAL ADVICE Disposition Time: 23:44 Condition: STABLE Forms: [facility] (Slovak) - POA Core Measure Indicators: Chest Pain - Clinical Impression Clinical Impression: Chest pain, CHF (congestive heart failure) - Scribe Statement The provider has reviewed the documentation as recorded by the Scribe Fabiano Dawson All medical record entries made by the Scribe were at my direction and personally dictated by me. I have reviewed the chart and agree that the record accurately reflects my personal performance of the history, physical exam, medical decision making, and the department course for this patient. I have also personally directed, reviewed, and agree with the discharge instructions and disposition.
[2018-02-07 22:22] LABS: MEAN CELL VOLUME 100.9 fL (80.0-94.0); MEAN CORPUSCULAR HEMOGLOBIN 31.9 pg (27.0-31.0); MEAN CORPUSCULAR HGB CONC 31.6 g/dL (33.0-37.0); MEAN PLATELET VOLUME 7.8 fL (7.2-11.7); PLATELET COUNT 174 K/uL (130-400); RBC 2.82 Mil/uL (4.40-5.90); RED CELL DISTRIBUTION WIDTH 15.2 % (11.5-14.5); WHITE BLOOD COUNT 6.9 K/uL (4.8-10.8)
[2018-02-07 22:33] VITALS: RESP 19
[2018-02-07 22:35] LABS: ALB/GLOB RATIO 1.1 (1.0-2.1); ALBUMIN 3.5 g/dL (3.5-5.0); INR 1.1; PROTHROMBIN TIME 11.5 SECONDS (9.7-12.2)
[2018-02-07 22:45] LABS: TROPONIN I 0.046 ng/mL (0.00-0.120)
[2018-02-07 22:58] VITALS: O2SAT 97
[2018-02-07 23:32] LABS: EOSINOPHIL 26 % (0-4); LYMPHOCYTE 16 % (20-40); MONOCYTE 4 % (0-10); NEUTROPHIL 54 % (50-75); PLATELET ESTIMATE NORMAL (NORMAL); TOTAL CELLS COUNTED 100
[2018-02-07 23:33] LABS: ANISOCYTOSIS MODERATE; OVALOCYTES SLIGHT; POLYCHROMIC SLIGHT
[2018-02-08 00:09] VITALS: BP 126/84; PULSE 89
--- NOTE | 2018-02-08 09:01 | RAD ---
Chest x-ray single frontal view History: Shortness of breath. Comparison: 12/01/2017 Findings: Moderate to severe venous congestion. Diffuse confluent increased markings within the mid to lower lung zones bilaterally. Moderate bilateral pleural effusions. Status post median sternotomy. Tubing projecting over the left axillary region. Cardiomegaly. Right-sided pacemaker. Degenerative changes in the spine and shoulders. Impression: Moderate to severe venous congestion. Diffuse confluent increased markings within the mid to lower lung zones bilaterally. Moderate bilateral pleural effusions. Status post median sternotomy. Tubing projecting over the left axillary region. Cardiomegaly. Right-sided pacemaker. Degenerative changes in the spine and shoulders.
--- NOTE | 2018-02-08 17:52 | CARD ---
APPROVED REPORT Date of service: 02/07/2018 EKG Measurement Heart [id number] [id number] <Conclusion> Atrial-sensed ventricular-paced rhythm Abnormal ECG
== END 2018-02-08 02:01 | disposition left against medical advice (07) ==
LOC: C.ER 21:28 → SUPCPDRO 21:28 → C.ER 02-08 02:01
DX: I13.2 Hypertensive heart and chronic kidney disease with heart failure and with stage 5 chronic kidney disease, or end stage renal disease (principal); I50.9 Heart failure, unspecified; N18.6 End stage renal disease; Z99.2 Dependence on renal dialysis; R07.9 Chest pain, unspecified; E78.00 Pure hypercholesterolemia, unspecified; Z86.73 Personal history of transient ischemic attack (TIA), and cerebral infarction without residual deficits; Z95.1 Presence of aortocoronary bypass graft

== ENCOUNTER 2018-03-05 15:34 | Inpatient (IN) | payer MEDICARE, MEDICAID ==
[2018-03-05 15:51] VITALS: BMI 37.2
--- NOTE | 2018-03-05 16:03 | CT ---
Date of service: 03/05/2018 PROCEDURE: CT HEAD WITHOUT CONTRAST. HISTORY: Code Stroke COMPARISON: Comparison is made with 11/24/2017 TECHNIQUE: Axial computed tomography images were obtained through the head/brain without intravenous contrast. Radiation dose: Total exam DLP = 982.16 mGy-cm. This CT exam was performed using one or more of the following dose reduction techniques: Automated exposure control, adjustment of the mA and/or kV according to patient size, and/or use of iterative reconstruction technique. FINDINGS: HEMORRHAGE: No intracranial hemorrhage. BRAIN: No mass effect or edema. Mild to moderate white matter changes are again noted. VENTRICLES: Unremarkable. No hydrocephalus. CALVARIUM: Unremarkable. PARANASAL SINUSES: Unremarkable as visualized. No significant inflammatory changes. MASTOID AIR CELLS: Unremarkable as visualized. No inflammatory changes. OTHER FINDINGS: None. IMPRESSION: No evidence of acute intracranial hemorrhage territorial infarction mass effect or midline shift. No significant interval change noted in the brain parenchyma since the previous exam.
[2018-03-05 16:12] LABS: BASO % 0.4 % (0.0-2.0); EOS # 0.5 K/uL (0.0-0.7); EOS % 6.8 % (0.0-4.0); HEMOGLOBIN 8.3 g/dL (12.0-18.0); LYMPH # 0.6 K/uL (1.0-4.3); LYMPH % 8.9 % (20.0-40.0); MEAN CELL VOLUME 103.5 fL (80.0-94.0); MEAN CORPUSCULAR HEMOGLOBIN 33.1 pg (27.0-31.0); MEAN PLATELET VOLUME 7.6 fL (7.2-11.7); MONO # 0.4 K/uL (0.0-0.8); MONO % 6.3 % (0.0-10.0); NEUT # 5.4 K/uL (1.8-7.0); NEUT % 77.6 % (50.0-75.0); NRBC % 0.4 % (0.0-2.0); PLATELET COUNT 131 K/uL (130-400); RBC 2.49 Mil/uL (4.40-5.90); RED CELL DISTRIBUTION WIDTH 17.1 % (11.5-14.5); WHITE BLOOD COUNT 6.9 K/uL (4.8-10.8)
--- NOTE | 2018-03-05 16:17 | RAD ---
Date of service: 03/05/2018 HISTORY: Code Stroke COMPARISON: 02/07/2018. FINDINGS: LUNGS: Multifocal infiltrates right greater than left. Similar findings identified previously. PLEURA: Bilateral pleural effusions are approximately stable. CARDIOVASCULAR: Cardiomegaly.Position/ configuration of pacemaker Satisfactory. OSSEOUS STRUCTURES: No significant abnormalities. VISUALIZED UPPER ABDOMEN: Normal. OTHER FINDINGS: None. IMPRESSION: Cardiomegaly. Multifocal infiltrates and bilateral pleural effusions suggest congestive heart failure. No significant change.
[2018-03-05 16:24] LABS: INR 1.1; PROTHROMBIN TIME 12.2 SECONDS (9.7-12.2)
[2018-03-05 16:27] LABS: ALT/SGPT 29 U/L (21-72); AST/SGOT 19 U/L (17-59); BLOOD UREA NITROGEN 11 mg/dL (9-20); CALCIUM 7.9 mg/dl (8.6-10.4); GFR NON-AFRICAN AMERICAN 34; HDL CHOLESTEROL 35 mg/dL (30-70)
[2018-03-05 16:38] LABS: VENOUS BLOOD GAS BASE EXCESS 2.2 mmol/L (0.0-2.0); VENOUS BLOOD GAS PCO2 87 mmHg (40-60); VENOUS BLOOD GAS PO2 32 mm/Hg (30-55); VENOUS BLOOD PH 7.19 (7.32-7.43)
[2018-03-05 16:42] LABS: LDL CHOLESTEROL < 30 mg/dL (0-129)
[2018-03-05 17:09] LABS: URINE BACTERIA MANY (<OCC); WBC CLUMPS MOD /hpf
[2018-03-05 17:10] LABS: URINE BILIRUBIN SMALL (NEGATIVE); URINE CLARITY Turbid (Clear); URINE COLOR LIGHT YELLOW (YELLOW); URINE GLUCOSE (UA) 100 mg/dL (Normal)
[2018-03-05 17:11] LABS: PH,URINE 6.5 (5.0-8.0); URINE BLOOD LARGE (NEGATIVE); URINE LEUKOCYTE ESTERASE MODERATE Leu/uL (Negative); URINE PROTEIN > 300 mg/dL (NEGATIVE)
[2018-03-05] MEDS ORDERED: Cefepime 1 GM in Sodium Chloride 0.9% 50 ML IVPB ONE (17:16)
[2018-03-05 18:39] LABS: BANDS 1 % (0-2); BASOPHIL 1 % (0-2); EOSINOPHIL 9 % (0-4); LYMPHOCYTE 9 % (20-40); MONOCYTE 5 % (0-10); NEUTROPHIL 75 % (50-75); TOTAL CELLS COUNTED 100
[2018-03-05 18:40] LABS: ANISOCYTOSIS SLIGHT; PLATELET ESTIMATE NORMAL (NORMAL)
[2018-03-05 19:49] LABS: ARTERIAL BLOOD GAS HCO3 30.9 mmol/L (21-28); ARTERIAL BLOOD GAS O2 SAT 97.7 % (95-98); ARTERIAL BLOOD GAS PCO2 74 mm/Hg (35-45); ARTERIAL BLOOD GAS PH 7.29 (7.35-7.45); ARTERIAL BLOOD GAS PO2 79 mm/Hg (80-100); ARTERIAL BLOOD GAS TCO2 37.9 mmol/L (22-28)
--- NOTE | 2018-03-05 20:21 | C.PDOC ---
Time Seen by Provider: 03/05/18 15:44 Chief Complaint (Nursing): Cardiac Arrest Past Medical History Vital Signs: Last Vital Signs Temp 95.6 F L 03/05/18 15:35 Pulse 80 03/05/18 19:48 Resp 19 03/05/18 19:48 BP 126/52 L 03/05/18 19:48 Pulse Ox 99 03/05/18 19:48 - Medical History PMH: Anemia, Asthma, CHF, COPD, CVA (affecting left side), Depression ('MAJOR DEPRESSIVE DISORDER,SINGLE EPISODE,UNSPECIFIED"), HTN, Hypercholesterolemia, Hyperlipidemia, Peripheral Edema, End Stage Renal Disease, Chronic Kidney Disease, Sleep Apnea Surgical History: CABG, Endoscopy, Pacemaker - [facility] Procedures (11/24/17) DIALYSIS ARTERIOVENOSTOM (10/07/14) EXCISION OF DUODENUM, ENDO (11/10/17) EXCISION OF SIGMOID COLON, ENDO, DIAGN (09/26/16) INCIS W REM OF FORIEGN BODY OR DEV FROM SKIN & SUBCUT TISSUE (12/23/14) INSERT PACE. DUAL MARGIE IN CHEST SUBCU/FASCIA, OPEN (11/10/17) INSERTION OF PACEMAKER LEAD INTO R VENTRICLE, PERC APPROACH (11/10/17) INSERTION OF PACEMAKER LEAD INTO RIGHT ATRIUM, PERC APPROACH (11/10/17) MONITORING OF VENOUS PRESSURE, CENTRAL, PERC APPROACH (11/10/17) PERFORMANCE OF URINARY FILTRATION, MULTIPLE (04/11/17) RESPIRATORY VENTILATION, GREATER THAN 96 CONSECUTIVE HOURS (11/24/17) RESPIRATORY VENTILATION, LESS THAN 24 CONSECUTIVE HOURS (11/10/17) Family History: States: Unknown Family Hx - Social History Hx Alcohol Use: No Hx Substance Use: No - Immunization History Hx Influenza Vaccination: No (refuses) Hx Pneumococcal Vaccination: No (refuses) ED Course And Treatment - Laboratory Results Result Diagrams: 03/05/18 16:08 03/05/18 16:08 O2 Sat by Pulse Oximetry: 99 Disposition - Disposition
--- NOTE | 2018-03-05 20:24 | C.PDOC ---
History Of Present Illness Pt was receiving his usual dialysis today when he apparently became unresponsive. Dialysis center staff apparently started CPR and when the pt was taken off of the dialysis machine his fistula started bleeding. Bleeding was then controlled with pressure dressing. EMS found pt to be drowsy, but responsive. Time Seen by Provider: 03/05/18 15:44 Chief Complaint (Nursing): Altered Mental Status History Per: Patient, EMS, Family History/Exam Limitations: Clinical Condition Onset/Duration Of Symptoms: Other (today while at dialysis) Current Symptoms Are (Timing): Better Exacerbating Factor(s): Unknown Speech Is: Slurred Severity: Severe Additional History Per: [facility], Prior Records Past Medical History Reviewed: Historical Data, Nursing Documentation, Vital Signs Vital Signs: Last Vital Signs Temp 95.6 F L 03/05/18 15:35 Pulse 80 03/05/18 19:48 Resp 19 03/05/18 19:48 BP 126/52 L 03/05/18 19:48 Pulse Ox 99 03/05/18 19:48 - Medical History PMH: Anemia, Asthma, CHF, COPD, CVA (affecting left side), Depression ('MAJOR DEPRESSIVE DISORDER,SINGLE EPISODE,UNSPECIFIED"), HTN, Hypercholesterolemia, Hyperlipidemia, Peripheral Edema, End Stage Renal Disease (on hemodialysis), Chronic Kidney Disease, Sleep Apnea Surgical History: CABG, Endoscopy, Pacemaker - [facility] (11/24/17) DIALYSIS ARTERIOVENOSTOM (10/07/14) EXCISION OF DUODENUM, ENDO (11/10/17) EXCISION OF SIGMOID COLON, ENDO, DIAGN (09/26/16) INCIS W REM OF FORIEGN BODY OR DEV FROM SKIN & SUBCUT TISSUE (12/23/14) INSERT PACE. DUAL MARGIE IN CHEST SUBCU/FASCIA, OPEN (11/10/17) INSERTION OF PACEMAKER LEAD INTO R VENTRICLE, PERC APPROACH (11/10/17) INSERTION OF PACEMAKER LEAD INTO RIGHT ATRIUM, PERC APPROACH (11/10/17) MONITORING OF VENOUS PRESSURE, CENTRAL, PERC APPROACH (11/10/17) PERFORMANCE OF URINARY FILTRATION, MULTIPLE (04/11/17) RESPIRATORY VENTILATION, GREATER THAN 96 CONSECUTIVE HOURS (11/24/17) RESPIRATORY VENTILATION, LESS THAN 24 CONSECUTIVE HOURS (11/10/17) Family History: States: Unknown Family Hx - Social History Hx Alcohol Use: No Hx Substance Use: No - Immunization History Hx Influenza Vaccination: No (refuses) Hx Pneumococcal Vaccination: No (refuses) Review Of Systems Review Of Systems: ROS cannot be obtained secondary to pt's inabilty to answer questions. Physical Exam - Physical Exam Appears: Chronically Ill, Other (Drowsy appearing) Skin: Dry Head: Atraumatic Eye(s): bilateral: PERRL, EOMI Neck: Normal ROM, Supple Cardiovascular: Rhythm Regular Respiratory: No Accessory Muscle Use, Rales Gastrointestinal/Abdominal: Soft, No Tenderness Male Genital: Other (Purulent discharge from penis) Extremity: Normal ROM, Other (IO in right proximal humerus (placed by EMS). Left arm dialysis fistula covered by dressing. No bleeding through dressing.) Neurological/Psych: No Normal Speech (slurred), Slow To Respond With Command, Other (Moving all extremities) ED Course And Treatment - Laboratory Results Result Diagrams: 03/05/18 16:08 03/05/18 16:08 Lab Interpretation: Abnormal Interpretation Of Abnormal: Anemia. UTI. Respiratory acidosis. ECG: Interpreted By Me, Viewed By Me ECG Rhythm: R BBB, Nonspecific Changes ECG Interpretation: Abnormal Interpretation Of ECG: Undetermined rhythm Rate From EC O2 Sat by Pulse Oximetry: 97 (on NC O2) - Radiology CXR: Viewed By Me, Read By Radiologist CXR Interpretation: Yes: Cardiomegaly, Other (Cardiomegaly. Multifocal infiltrates and bilateral pleural effusions suggest congestive heart failure. No significant change.) - CT Scan/US CT head Other Rad Studies (CT/US): Read By Radiologist, Radiology Report Reviewed CT/US Interpretation: IMPRESSION: No evidence of acute intracranial hemorrhage territorial infarction mass effect or midline shift. No significant interval change noted in the brain parenchyma since the previous exam. Progress Note: Pt was placed on BiPAP and Bear hugger blanket with improvement. Pt was evaluated by the intesivists Drs. Frausto and Jennifer. They state pt can be safely admitted to telemetry floor and does not require ICU admission. Reassessment Condition: Improved Progress - Interventions Interventions:: Observation, Oxygen - Medications Administered Intravenous: Other (Abx) - Data Reviewed Data Reviewed: Lab, Diagnostic imaging, EKG, Old records - Patient Status Patient status: Partially improved - Critical Care Citical Care: Excluding Proc Time Critical Care Time: 60 minutes - Continuity of Care Discussed patient case with:: Patient, Family-HIPPA compliant, ED Nurse, PMD Discussed pt. case with solutions delivery consultant/specialty: Pulmonary/Crit. Care - Patient Plan Patient Plan: Admission, Telemetry Disposition Discussed With .: Carlos Andrews (PMD) Comment: He accepted pt on his service and gave admitting orders to the nurse. Doctor Will See Patient In The: Hospital Counseled Patient/Family Regarding: Studies Performed, Diagnosis - Disposition Disposition: HOSPITALIZED Disposition Time: 20:35 Condition: GUARDED - Clinical Impression Clinical Impression: Respiratory acidosis, Complicated urinary tract infection, ESRD on hemodialysis , Hypothermia
--- NOTE | 2018-03-06 04:22 | CP.PCM.CON ---
History of Present Illness - History of Present Illness History of Present Illness: 67 y/o male with ESRD on HD, CHF,CABG, COPD, CVA (affecting left side), Depression , HTN, Hypercholesterolemia, Hyperlipidemia, Peripheral Edema, Sleep Apnea was receiving his usual dialysis today when he apparently became unresponsive. Dialysis center staff apparently started CPR and when the pt was taken off of the dialysis machine his fistula started bleeding. Bleeding was then controlled with pressure dressing. EMS found pt to be drowsy, but responsive. IN Er patient was found to be in hypercapnic respiratory failure placed on BIPAP with clinical improvement Denied chest pain and difficulty breathing ABG after BIPAP showed improvement in pH and PaCO2 patient poor historian.History from chart and patients relative Review of Systems - Constitutional Constitutional: Sleep Apnea. absent: Fever - EENT Eyes: absent: Change in Vision Ears: absent: Ear Pain, Dizziness Nose/Mouth/Throat: absent: Sore Throat, Neck Pain - Cardiovascular Cardiovascular: Edema, Leg Edema. absent: Chest Pain - Respiratory Respiratory: absent: Dyspnea Additional comments: patient is bedbound - Gastrointestinal Gastrointestinal: absent: Abdominal Pain, Nausea, Vomiting - Musculoskeletal Musculoskeletal: absent: Muscle Weakness - Integumentary Integumentary: absent: Rash - Neurological Neurological: absent: Dizziness - Endocrine Endocrine: absent: Polyphagia - Hematologic/Lymphatic Hematologic: absent: Easy Bleeding Past Patient History - Infectious Disease Hx of Infectious Diseases: None - Past Medical History & Family History Past Medical History?: Yes - Past Social History Smoking Status: Never Smoked - CARDIAC Hx Congestive Heart Failure: Yes Hx Hypercholesterolemia: Yes Hx Hypertension: Yes Hx Pacemaker: Yes Hx Peripheral Edema: Yes - PULMONARY Hx Asthma: Yes Hx Chronic Obstructive Pulmonary Disease (COPD): Yes Hx Sleep Apnea: Yes - NEUROLOGICAL HX Cerebrovascular Accident: Yes Other/Comment: paraplegic.. left arm hemiplegia with contractures - HEENT Hx HEENT Problems: Yes Hx Cataracts: Yes - RENAL Hx Chronic Kidney Disease: Yes - ENDOCRINE/METABOLIC Hx Diabetes Mellitus Type 2: Yes - HEMATOLOGICAL/ONCOLOGICAL Hx Anemia: Yes - INTEGUMENTARY Hx Dermatological Problems: Yes Other/Comment: healed sacral ulcer - MUSCULOSKELETAL/RHEUMATOLOGICAL Hx Musculoskeletal Disorders: Yes Hx Falls: Yes Hx Unsteady Gait: Yes Other/Comment: HX: MUSCLE WEAKNESS(GENERALIZED), Left sided body weakness due to CVA - GASTROINTESTINAL Hx Gastrointestinal Disorders: Yes Other/Comment: HX: DYSPHAGIA,UNSPECIFIED - GENITOURINARY/GYNECOLOGICAL Hx Genitourinary Disorders: No - PSYCHIATRIC Hx Depression: Yes ('MAJOR DEPRESSIVE DISORDER,SINGLE EPISODE,UNSPECIFIED") Hx Substance Use: No - SURGICAL HISTORY Hx Coronary Artery Bypass Graft: Yes - ANESTHESIA Hx Anesthesia: Yes Hx Anesthesia Reactions: No Hx Malignant Hyperthermia: No Meds Allergies/Adverse Reactions: Allergies Allergy/AdvReac Type Severity Reaction Status Date / Time iodine Allergy Intermediate RASH Verified 03/05/18 15:49 clopidogrel [From Plavix] Allergy SHORTNESS Verified 03/05/18 15:49 OF BREATH clopidogrel bisulfate Allergy UNKNOWN Verified 03/05/18 17:14 [From Plavix] penicillin G Allergy SHORTNESS Verified 03/05/18 15:49 OF BREATH Penicillins Allergy UNKNOWN Verified 03/05/18 15:49 IV DYE Allergy unknown Uncoded 03/05/18 15:49 - Medications Medications: Current Medications Alprazolam (Xanax) 0.25 mg PO PRN PRN PRN Reason: Anxiety Stop: 03/12/18 20:43 Aspirin (Aspirin Chewable) 81 mg PO DAILY [facility] Docusate Sodium (Colace) 100 mg PO BID [facility] Enoxaparin Sodium (Lovenox) 40 mg SC DAILY [facility] Furosemide (Lasix) 40 mg PO DAILY [facility] Home Med (Atorvastatin Calcium [Atorvastatin Calcium]) 40 mg PO QPM [facility] Home Med (Ferrous Sulfate [Feosol]) 324 mg PO DAILY [facility] Home Med (Folic Acid/Vit B Complex And C [Nephro-Renaldo Tablet]) 1 tab PO DAILY [facility] Home Med (Midodrine [Proamatine]) 5 mg PO MWF [facility] Insulin Human Regular (Novolin R) 0 unit [facility] PRN Reason: Protocol Lactulose (Enulose) 20 gm PO PRN PRN PRN Reason: Constipation Ondansetron HCl (Zofran Tab) 4 mg PO Q8H PRN PRN Reason: Nausea/Vomiting Polyethylene Glycol (Miralax) 17 gm PO DAILY [facility] Sevelamer Carbonate (Renvela) 800 mg PO TID [facility] Physical Exam - Constitutional Appears: No Acute Distress, Chronically Ill Additional comments: intra osseous line right humerus AV fistula left arm bandaged,dressing dry with no blood - Head Exam Head Exam: ATRAUMATIC, NORMAL INSPECTION, NORMOCEPHALIC - Eye Exam Eye Exam: EOMI Pupil Exam: PERRL - ENT Exam ENT Exam: Mucous Membranes Dry - Neck Exam Neck exam: Positive for: Normal Inspection - Respiratory Exam Respiratory Exam: Clear to Auscultation Bilateral - Cardiovascular Exam Cardiovascular Exam: REGULAR RHYTHM. absent: JVD - GI/Abdominal Exam GI & Abdominal Exam: Normal Bowel Sounds, Soft. absent: Tenderness - Rectal Exam Rectal Exam: Deferred - Extremities Exam Extremities exam: Positive for: pedal edema. Negative for: tenderness - Neurological Exam Neurological exam: Alert, Oriented x3 - Skin Skin Exam: Normal Color, Warm Results - Vital Signs Recent Vital Signs: Last Vital Signs Temp 98.6 F 03/05/18 23:30 Pulse 81 03/06/18 01:15 Resp 20 03/05/18 23:30 BP 114/54 L 03/05/18 23:30 Pulse Ox 100 03/05/18 23:30 - Labs Result Diagrams: 03/05/18 16:08 03/05/18 16:08 Labs: Laboratory Results - last 24 hr 03/05/18 03/05/18 03/05/18 15:57 16:08 16:08 WBC 6.9 RBC 2.49 L Hgb 8.3 L Hct 25.8 L MCV 103.5 H D MCH 33.1 H MCHC 32.0 L RDW 17.1 H Plt Count 131 MPV 7.6 Neut % (Auto) 77.6 H Lymph % (Auto) 8.9 L [place] % (Auto) 6.3 Eos % (Auto) 6.8 H Baso % (Auto) 0.4 Neut # (Auto) 5.4 Lymph # (Auto) 0.6 L [place] # (Auto) 0.4 Eos # (Auto) 0.5 Baso # (Auto) 0.0 Neutrophils % (Manual) 75 Band Neutrophils % 1 Lymphocytes % (Manual) 9 L Monocytes % (Manual) 5 Eosinophils % (Manual) 9 H Basophils % (Manual) 1 Platelet Estimate Normal Anisocytosis (manual) Slight PT 12.2 INR 1.1 APTT 44 H Puncture Site pCO2 pO2 HCO3 ABG pH ABG Total CO2 ABG O2 Saturation ABG Base Excess ABG Hemoglobin ABG Carboxyhemoglobin POC ABG HHb (Measured) ABG Methemoglobin Esvin Test VBG pH VBG pCO2 VBG HCO3 VBG Total CO2 VBG O2 Sat (Calc) VBG Base Excess VBG Potassium A-a O2 Difference Respiratory Index Hgb O2 Saturation Glucose Lactate FiO2 Inspiratory BiPAP Expiratory BiPAP Crit Value Called To Crit Value Called By Crit Value Read Back Blood Gas Notified Time Sodium Potassium Chloride Carbon Dioxide Anion Gap BUN Creatinine Est GFR ( Amer) Est GFR (Non-Af Amer) POC Glucose (mg/dL) 137 H Random Glucose Hemoglobin A1c Calcium Total Bilirubin AST ALT Alkaline Phosphatase Troponin I Total Protein Albumin Globulin Albumin/Globulin Ratio Triglycerides Cholesterol LDL Cholesterol Direct HDL Cholesterol Venous Blood Potassium Urine Color Urine Clarity Urine pH Ur Specific [place] Urine Protein Urine Glucose (UA) Urine Ketones Urine Blood Urine Nitrate Urine Bilirubin Urine Urobilinogen Ur Leukocyte Esterase Urine WBC (Auto) Urine RBC (Auto) Urine WBC Clumps (Auto) Urine Bacteria Blood Type Antibody Screen 03/05/18 03/05/18 03/05/18 16:08 16:08 16:09 WBC RBC Hgb Hct MCV MCH MCHC RDW Plt Count MPV Neut % (Auto) Lymph % (Auto) [place] % (Auto) Eos % (Auto) Baso % (Auto) Neut # (Auto) Lymph # (Auto) [place] # (Auto) Eos # (Auto) Baso # (Auto) Neutrophils % (Manual) Band Neutrophils % Lymphocytes % (Manual) Monocytes % (Manual) Eosinophils % (Manual) Basophils % (Manual) Platelet Estimate Anisocytosis (manual) PT INR APTT Puncture Site pCO2 pO2 HCO3 ABG pH ABG Total CO2 ABG O2 Saturation ABG Base Excess ABG Hemoglobin ABG Carboxyhemoglobin POC ABG HHb (Measured) ABG Methemoglobin Esvin Test VBG pH VBG pCO2 VBG HCO3 VBG Total CO2 VBG O2 Sat (Calc) VBG Base Excess VBG Potassium A-a O2 Difference Respiratory Index Hgb O2 Saturation Glucose Lactate FiO2 Inspiratory BiPAP Expiratory BiPAP Crit Value Called To Crit Value Called By Crit Value Read Back Blood Gas Notified Time Sodium 139 Potassium 4.0 Chloride 100 Carbon Dioxide 30 Anion Gap 13 BUN 11 Creatinine 2.0 H Est GFR ( Amer) 41 Est GFR (Non-Af Amer) 34 POC Glucose (mg/dL) Random Glucose 119 H Hemoglobin A1c 4.0 L D Calcium 7.9 L Total Bilirubin 0.4 AST 19 ALT 29 Alkaline Phosphatase 121 Troponin I < 0.0120 Total Protein 5.8 L Albumin 3.0 L Globulin 2.9 Albumin/Globulin Ratio 1.0 Triglycerides 91 D Cholesterol 65 LDL Cholesterol Direct < 30 HDL Cholesterol 35 Venous Blood Potassium Urine Color Urine Clarity Urine pH Ur Specific [place] Urine Protein Urine Glucose (UA) Urine Ketones Urine Blood Urine Nitrate Urine Bilirubin Urine Urobilinogen Ur Leukocyte Esterase Urine WBC (Auto) Urine RBC (Auto) Urine WBC Clumps (Auto) Urine Bacteria Blood Type B POSITIVE Antibody Screen Positive 03/05/18 03/05/18 03/05/18 16:30 16:42 19:46 WBC RBC Hgb Hct MCV MCH MCHC RDW Plt Count MPV Neut % (Auto) Lymph % (Auto) [place] % (Auto) Eos % (Auto) Baso % (Auto) Neut # (Auto) Lymph # (Auto) [place] # (Auto) Eos # (Auto) Baso # (Auto) Neutrophils % (Manual) Band Neutrophils % Lymphocytes % (Manual) Monocytes % (Manual) Eosinophils % (Manual) Basophils % (Manual) Platelet Estimate Anisocytosis (manual) PT INR APTT Puncture Site Rba pCO2 74 H* pO2 32 79 L HCO3 30.9 H ABG pH 7.29 L ABG Total CO2 37.9 H ABG O2 Saturation 97.7 ABG Base Excess 7.7 H ABG Hemoglobin 8.0 L ABG Carboxyhemoglobin 2.7 H POC ABG HHb (Measured) 2.2 ABG Methemoglobin 1.5 Esvin Test Na VBG pH 7.19 L* VBG pCO2 87 H* VBG HCO3 25.2 VBG Total CO2 35.9 H VBG O2 Sat (Calc) 68.6 H VBG Base Excess 2.2 H VBG Potassium 3.7 A-a O2 Difference 114.0 Respiratory Index 1.4 Hgb O2 Saturation 93.6 L Glucose 114 H Lactate 1.1 FiO2 21.0 40.0 Inspiratory BiPAP 16 Expiratory BiPAP 5 Crit Value Called To Dr sindy dyer rn Crit Value Called By [facility] Crit Value Read Back Y Y Blood Gas Notified Time 1637 1948 Sodium 139.0 Potassium Chloride 105.0 Carbon Dioxide Anion Gap BUN Creatinine Est GFR ( Amer) Est GFR (Non-Af Amer) POC Glucose (mg/dL) Random Glucose Hemoglobin A1c Calcium Total Bilirubin AST ALT Alkaline Phosphatase Troponin I Total Protein Albumin Globulin Albumin/Globulin Ratio Triglycerides Cholesterol LDL Cholesterol Direct HDL Cholesterol Venous Blood Potassium 3.7 Urine Color Light yellow Urine Clarity Turbid Urine pH 6.5 Ur Specific [place] 1.030 Urine Protein > 300 Urine Glucose (UA) 100 Urine Ketones 15 Urine Blood Large Urine Nitrate Positive H Urine Bilirubin Small Urine Urobilinogen 1.0 Ur Leukocyte Esterase Moderate Urine WBC (Auto) 17778 H Urine RBC (Auto) 3845 H Urine WBC Clumps (Auto) Mod H Urine Bacteria Many H Blood Type Antibody Screen - Imaging and Cardiology Chest x-ray Status: Image reviewed by me, Report reviewed by me Assessment & Plan - Assessment and Plan (Free Text) Assessment: 1.Hypercapnic respiratory failure imptoved with CPAP continue CPAP Anemia-pt with renal failur f/u H/H ESRD on HD patient does not require ICU at present time
[2018-03-06] MEDS: (Novolin R) Insulin Human Regular 100 units/ml vial SC SCH ×4 (07:58→21:37)
[2018-03-06] MEDS ORDERED: MIDODRINE 5 MG PO SCH (09:00)
[2018-03-06] MEDS ORDERED: Enoxaparin 40 mg Syringe SC SCH (10:00)
[2018-03-06] MEDS: POLYETHYLENE GLYCOL 3350 17 GM/Dose PACKET PO SCH (10:17)
[2018-03-06] MEDS: Multivitamin Vitamin B Complex (Nephro-Vite) Tab PO SCH (10:18)
[2018-03-06 11:22] LABS: BASO % 0.8 % (0.0-2.0); EOS # 0.3 K/uL (0.0-0.7); HEMOGLOBIN 7.8 g/dL (12.0-18.0); LYMPH # 0.7 K/uL (1.0-4.3); LYMPH % 14.8 % (20.0-40.0); MEAN CELL VOLUME 103.5 fL (80.0-94.0); MEAN CORPUSCULAR HEMOGLOBIN 32.7 pg (27.0-31.0); MEAN CORPUSCULAR HGB CONC 31.6 g/dL (33.0-37.0); MEAN PLATELET VOLUME 8.4 fL (7.2-11.7); MONO # 0.5 K/uL (0.0-0.8); MONO % 9.7 % (0.0-10.0); NEUT # 3.3 K/uL (1.8-7.0); NEUT % 67.7 % (50.0-75.0); NRBC % 0.5 % (0.0-2.0); RBC 2.38 Mil/uL (4.40-5.90); RED CELL DISTRIBUTION WIDTH 17.1 % (11.5-14.5); WHITE BLOOD COUNT 4.9 K/uL (4.8-10.8)
[2018-03-06 11:42] LABS: ALB/GLOB RATIO 1.1 (1.0-2.1); ALBUMIN 3.4 g/dL (3.5-5.0); CALCIUM 8.5 mg/dl (8.6-10.4)
--- NOTE | 2018-03-06 12:44 | CARD ---
APPROVED REPORT Date of service: 03/05/2018 EKG Measurement Heart [id number] <Conclusion> a,fib Right bundle branch block Inferior infarct, age undetermined T wave abnormality, consider lateral ischemia Abnormal ECG
--- NOTE | 2018-03-06 15:07 | CP.PCM.CON ---
<Yonis Daigle M - Last Filed: 03/06/18 15:15> History of Present Illness - History of Present Illness History of Present Illness: PGY 1 Consult Note for neurologist Dr. Jimenez. 67 year old male w/ PMHx of stroke w/ residual focal weakness in left upper & b/ l lower extremities (L > R), Anemia, Asthma, CHF, COPD, CVA (affecting left side ), Depression ('MAJOR DEPRESSIVE DISORDER,SINGLE EPISODE,UNSPECIFIED"), HTN, Hypercholesterolemia, Hyperlipidemia, Peripheral Edema, End Stage Renal Disease (on hemodialysis), Chronic Kidney Disease, Sleep Apnea, presented to ED following complications from dialysis. Patient initially during dialysis had uncontrolled bleeding w/ drowsiness. Code stroke was called in ED for ?change in alert/ facial drop. Currently patient has no new complaints. Patient denies facial drop; however, patient does have residual chronic weakness Left upper & b/l lower extremities ( L>R). Full ROS negative. PMHx: stroke w/ residual focal weakness in left upper & b/l lower extremities ( L > R), Anemia, Asthma, CHF, COPD, CVA (affecting left side), Depression (' MAJOR DEPRESSIVE DISORDER,SINGLE EPISODE,UNSPECIFIED"), HTN, Hypercholesterolemia, Hyperlipidemia, Peripheral Edema, End Stage Renal Disease (on hemodialysis), Chronic Kidney Disease, Sleep Apnea Meds: See List PSHx: CABG, Endoscopy, Pacemaker Allergies: Iodine, Clopidogrel, penicillin, IV dye Social: Denies drugs/ ETOH/ tobacco use Review of Systems - EENT Eyes: absent: Blind Spots, Blurred Vision - Cardiovascular Cardiovascular: absent: Chest Pain, Dyspnea - Respiratory Respiratory: absent: Cough, Wheezing - Gastrointestinal Gastrointestinal: absent: Abdominal Pain, Bloating - Neurological Neurological: Focal Weakness, Weakness. absent: Abnormal Hearing, Abnormal Speech Past Patient History - Infectious Disease Hx of Infectious Diseases: None - Past Medical History & Family History Past Medical History?: Yes - Past Social History Smoking Status: Never Smoked - CARDIAC Hx Congestive Heart Failure: Yes Hx Hypercholesterolemia: Yes Hx Hypertension: Yes - PULMONARY Hx Chronic Obstructive Pulmonary Disease (COPD): Yes - NEUROLOGICAL HX Cerebrovascular Accident: Yes (residual left side weakness) - HEENT Hx HEENT Problems: Yes Hx Cataracts: Yes - RENAL Date of Last Dialysis Treatment: 03/05/18 - ENDOCRINE/METABOLIC Hx Endocrine Disorders: Yes Hx Diabetes Mellitus Type 2: Yes - HEMATOLOGICAL/ONCOLOGICAL Hx Blood Disorders: Yes Hx Anemia: Yes - INTEGUMENTARY Hx Dermatological Problems: Yes Other/Comment: healed sacral ulcer - MUSCULOSKELETAL/RHEUMATOLOGICAL Hx Falls: Yes - GASTROINTESTINAL Hx Gastrointestinal Disorders: Yes Other/Comment: HX: DYSPHAGIA,UNSPECIFIED - GENITOURINARY/GYNECOLOGICAL Hx Genitourinary Disorders: No - PSYCHIATRIC Hx Substance Use: No - SURGICAL HISTORY Hx Surgeries: Yes Hx Coronary Artery Bypass Graft: Yes - ANESTHESIA Hx Anesthesia: Yes Hx Anesthesia Reactions: No Hx Malignant Hyperthermia: No Meds Allergies/Adverse Reactions: Allergies Allergy/AdvReac Type Severity Reaction Status Date / Time iodine Allergy Intermediate RASH Verified 03/05/18 15:49 clopidogrel [From Plavix] Allergy SHORTNESS Verified 03/05/18 15:49 OF BREATH clopidogrel bisulfate Allergy UNKNOWN Verified 03/05/18 17:14 [From Plavix] penicillin G Allergy SHORTNESS Verified 03/05/18 15:49 OF BREATH Penicillins Allergy UNKNOWN Verified 03/05/18 15:49 IV DYE Allergy unknown Uncoded 03/05/18 15:49 - Medications Medications: Current Medications Alprazolam (Xanax) 0.25 mg PO PRN PRN PRN Reason: Anxiety Stop: 03/12/18 20:43 Last Admin: 03/06/18 10:17 Dose: 0.25 mg Aspirin (Aspirin Chewable) 81 mg PO DAILY [facility] Last Admin: 03/06/18 10:18 Dose: 81 mg Docusate Sodium (Colace) 100 mg PO BID [facility] Last Admin: 03/06/18 10:17 Dose: 100 mg Enoxaparin Sodium (Lovenox) 40 mg SC DAILY [facility] Last Admin: 03/06/18 10:18 Dose: 40 mg Ferrous Sulfate (Feosol) 325 mg PO DAILY [facility] Last Admin: 03/06/18 10:17 Dose: 325 mg Furosemide (Lasix) 40 mg PO DAILY [facility] Last Admin: 03/06/18 10:17 Dose: 40 mg Cefepime HCl 1 gm/ Dextrose 50 mls @ 100 mls/hr IVPB Q12H [facility] PRN Reason: Protocol Last Admin: 03/06/18 10:18 Dose: 100 mls/hr Insulin Human Regular (Novolin R) 0 unit SC ACHS [facility] PRN Reason: Protocol Last Admin: 03/06/18 12:16 Dose: Not Given Lactulose (Enulose) 20 gm PO PRN PRN PRN Reason: Constipation Midodrine (Proamatine) 5 mg PO MWF [facility] Last Admin: 03/06/18 10:28 Dose: 5 mg Ondansetron HCl (Zofran Tab) 4 mg PO Q8H PRN PRN Reason: Nausea/Vomiting Polyethylene Glycol (Miralax) 17 gm PO DAILY [facility] Last Admin: 03/06/18 10:17 Dose: 17 gm Rosuvastatin Calcium (Crestor) 20 mg PO [facility] Sevelamer Carbonate (Renvela) 800 mg PO TID [facility] Last Admin: 03/06/18 13:27 Dose: 800 mg Vitamin B Complex/Vit C/Folic Acid (Nephro-Renaldo) 1 tab PO DAILY [facility] Last Admin: 03/06/18 10:18 Dose: 1 tab Physical Exam - Constitutional Appears: Non-toxic, No Acute Distress - Head Exam Head Exam: NORMAL INSPECTION - Respiratory Exam Respiratory Exam: Clear to Auscultation Bilateral. absent: Rales, Rhonchi, Wheezes - Cardiovascular Exam Cardiovascular Exam: +S1, +S2 - GI/Abdominal Exam GI & Abdominal Exam: Normal Bowel Sounds, Soft - Neurological Exam Neurological exam: Alert, CN II-XII Intact - Expanded Neurological Exam Expanded Patient oriented to: person, place Cranial nerves: EOM's Intact: Normal Cerebellar Function: Finger to Nose: Normal, Abnormal Right (Weakness 2/2 previous stroke) Neuro motor strength exam: Left Upper Extremity: 2/1, Right Upper Extremity: 4, Left Lower Extremity: 3, Right Lower Extremity: 3 DTR: Achilles Tendon Left: 2+, Achilles Tendon Right: 2+, Bicep Left: 2+, Bicep Right: 2+, Brachioradialis Left: 2+, Brachioradialis Right: 2+, Patellar Left: 2 +, Patellar Right: 2+, Tricep Left: 2+, Tricep Right: 2+ Results - Vital Signs Recent Vital Signs: Last Vital Signs Temp 98.5 F 03/06/18 07:00 Pulse 88 03/06/18 08:28 Resp 20 03/06/18 07:00 BP 122/47 L 03/06/18 10:17 Pulse Ox 94 L 03/06/18 07:00 - Labs Result Diagrams: 03/06/18 11:16 03/06/18 11:16 Labs: Laboratory Results - last 24 hr 03/05/18 03/05/18 03/05/18 15:57 16:08 16:08 WBC 6.9 RBC 2.49 L Hgb 8.3 L Hct 25.8 L MCV 103.5 H D MCH 33.1 H MCHC 32.0 L RDW 17.1 H Plt Count 131 MPV 7.6 Neut % (Auto) 77.6 H Lymph % (Auto) 8.9 L [place] % (Auto) 6.3 Eos % (Auto) 6.8 H Baso % (Auto) 0.4 Neut # (Auto) 5.4 Lymph # (Auto) 0.6 L [place] # (Auto) 0.4 Eos # (Auto) 0.5 Baso # (Auto) 0.0 Neutrophils % (Manual) 75 Band Neutrophils % 1 Lymphocytes % (Manual) 9 L Monocytes % (Manual) 5 Eosinophils % (Manual) 9 H Basophils % (Manual) 1 Platelet Estimate Normal Anisocytosis (manual) Slight PT 12.2 INR 1.1 APTT 44 H Puncture Site pCO2 pO2 HCO3 ABG pH ABG Total CO2 ABG O2 Saturation ABG Base Excess ABG Hemoglobin ABG Carboxyhemoglobin POC ABG HHb (Measured) ABG Methemoglobin Esvin Test VBG pH VBG pCO2 VBG HCO3 VBG Total CO2 VBG O2 Sat (Calc) VBG Base Excess VBG Potassium A-a O2 Difference Respiratory Index Hgb O2 Saturation Glucose Lactate FiO2 Inspiratory BiPAP Expiratory BiPAP Crit Value Called To Crit Value Called By Crit Value Read Back Blood Gas Notified Time Sodium Potassium Chloride Carbon Dioxide Anion Gap BUN Creatinine Est GFR ( Amer) Est GFR (Non-Af Amer) POC Glucose (mg/dL) 137 H Random Glucose Hemoglobin A1c Calcium Total Bilirubin AST ALT Alkaline Phosphatase Troponin I Total Protein Albumin Globulin Albumin/Globulin Ratio Triglycerides Cholesterol LDL Cholesterol Direct HDL Cholesterol Venous Blood Potassium Urine Color Urine Clarity Urine pH Ur Specific [place] Urine Protein Urine Glucose (UA) Urine Ketones Urine Blood Urine Nitrate Urine Bilirubin Urine Urobilinogen Ur Leukocyte Esterase Urine WBC (Auto) Urine RBC (Auto) Urine WBC Clumps (Auto) Urine Bacteria Blood Type Antibody Screen Antibody Identification 03/05/18 03/05/18 03/05/18 16:08 16:08 16:09 WBC RBC Hgb Hct MCV MCH MCHC RDW Plt Count MPV Neut % (Auto) Lymph % (Auto) [place] % (Auto) Eos % (Auto) Baso % (Auto) Neut # (Auto) Lymph # (Auto) [place] # (Auto) Eos # (Auto) Baso # (Auto) Neutrophils % (Manual) Band Neutrophils % Lymphocytes % (Manual) Monocytes % (Manual) Eosinophils % (Manual) Basophils % (Manual) Platelet Estimate Anisocytosis (manual) PT INR APTT Puncture Site pCO2 pO2 HCO3 ABG pH ABG Total CO2 ABG O2 Saturation ABG Base Excess ABG Hemoglobin ABG Carboxyhemoglobin POC ABG HHb (Measured) ABG Methemoglobin Esvin Test VBG pH VBG pCO2 VBG HCO3 VBG Total CO2 VBG O2 Sat (Calc) VBG Base Excess VBG Potassium A-a O2 Difference Respiratory Index Hgb O2 Saturation Glucose Lactate FiO2 Inspiratory BiPAP Expiratory BiPAP Crit Value Called To Crit Value Called By Crit Value Read Back Blood Gas Notified Time Sodium 139 Potassium 4.0 Chloride 100 Carbon Dioxide 30 Anion Gap 13 BUN 11 Creatinine 2.0 H Est GFR ( Amer) 41 Est GFR (Non-Af Amer) 34 POC Glucose (mg/dL) Random Glucose 119 H Hemoglobin A1c 4.0 L D Calcium 7.9 L Total Bilirubin 0.4 AST 19 ALT 29 Alkaline Phosphatase 121 Troponin I < 0.0120 Total Protein 5.8 L Albumin 3.0 L Globulin 2.9 Albumin/Globulin Ratio 1.0 Triglycerides 91 D Cholesterol 65 LDL Cholesterol Direct < 30 HDL Cholesterol 35 Venous Blood Potassium Urine Color Urine Clarity Urine pH Ur Specific [place] Urine Protein Urine Glucose (UA) Urine Ketones Urine Blood Urine Nitrate Urine Bilirubin Urine Urobilinogen Ur Leukocyte Esterase Urine WBC (Auto) Urine RBC (Auto) Urine WBC Clumps (Auto) Urine Bacteria Blood Type B POSITIVE Antibody Screen Positive Antibody Identification Non Specific Cold Antibody 03/05/18 03/05/18 03/05/18 16:30 16:42 19:46 WBC RBC Hgb Hct MCV MCH MCHC RDW Plt Count MPV Neut % (Auto) Lymph % (Auto) [place] % (Auto) Eos % (Auto) Baso % (Auto) Neut # (Auto) Lymph # (Auto) [place] # (Auto) Eos # (Auto) Baso # (Auto) Neutrophils % (Manual) Band Neutrophils % Lymphocytes % (Manual) Monocytes % (Manual) Eosinophils % (Manual) Basophils % (Manual) Platelet Estimate Anisocytosis (manual) PT INR APTT Puncture Site Rba pCO2 74 H* pO2 32 79 L HCO3 30.9 H ABG pH 7.29 L ABG Total CO2 37.9 H ABG O2 Saturation 97.7 ABG Base Excess 7.7 H ABG Hemoglobin 8.0 L ABG Carboxyhemoglobin 2.7 H POC ABG HHb (Measured) 2.2 ABG Methemoglobin 1.5 Esvin Test Na VBG pH 7.19 L* VBG pCO2 87 H* VBG HCO3 25.2 VBG Total CO2 35.9 H VBG O2 Sat (Calc) 68.6 H VBG Base Excess 2.2 H VBG Potassium 3.7 A-a O2 Difference 114.0 Respiratory Index 1.4 Hgb O2 Saturation 93.6 L Glucose 114 H Lactate 1.1 FiO2 21.0 40.0 Inspiratory BiPAP 16 Expiratory BiPAP 5 Crit Value Called To Dr sindy dyer rn Crit Value Called By [facility] Crit Value Read Back Y Y Blood Gas Notified Time 1637 1948 Sodium 139.0 Potassium Chloride 105.0 Carbon Dioxide Anion Gap BUN Creatinine Est GFR ( Amer) Est GFR (Non-Af Amer) POC Glucose (mg/dL) Random Glucose Hemoglobin A1c Calcium Total Bilirubin AST ALT Alkaline Phosphatase Troponin I Total Protein Albumin Globulin Albumin/Globulin Ratio Triglycerides Cholesterol LDL Cholesterol Direct HDL Cholesterol Venous Blood Potassium 3.7 Urine Color Light yellow Urine Clarity Turbid Urine pH 6.5 Ur Specific [place] 1.030 Urine Protein > 300 Urine Glucose (UA) 100 Urine Ketones 15 Urine Blood Large Urine Nitrate Positive H Urine Bilirubin Small Urine Urobilinogen 1.0 Ur Leukocyte Esterase Moderate Urine WBC (Auto) 36981 H Urine RBC (Auto) 3845 H Urine WBC Clumps (Auto) Mod H Urine Bacteria Many H Blood Type Antibody Screen Antibody Identification 03/06/18 03/06/18 03/06/18 06:24 11:16 11:16 WBC 4.9 RBC 2.38 L Hgb 7.8 L Hct 24.6 L MCV 103.5 H MCH 32.7 H MCHC 31.6 L RDW 17.1 H Plt Count 137 MPV 8.4 Neut % (Auto) 67.7 Lymph % (Auto) 14.8 L [place] % (Auto) 9.7 Eos % (Auto) 7.0 H Baso % (Auto) 0.8 Neut # (Auto) 3.3 Lymph # (Auto) 0.7 L [place] # (Auto) 0.5 Eos # (Auto) 0.3 Baso # (Auto) 0.0 Neutrophils % (Manual) Band Neutrophils % Lymphocytes % (Manual) Monocytes % (Manual) Eosinophils % (Manual) Basophils % (Manual) Platelet Estimate Anisocytosis (manual) PT INR APTT Puncture Site pCO2 pO2 HCO3 ABG pH ABG Total CO2 ABG O2 Saturation ABG Base Excess ABG Hemoglobin ABG Carboxyhemoglobin POC ABG HHb (Measured) ABG Methemoglobin Esvin Test VBG pH VBG pCO2 VBG HCO3 VBG Total CO2 VBG O2 Sat (Calc) VBG Base Excess VBG Potassium A-a O2 Difference Respiratory Index Hgb O2 Saturation Glucose Lactate FiO2 Inspiratory BiPAP Expiratory BiPAP Crit Value Called To Crit Value Called By Crit Value Read Back Blood Gas Notified Time Sodium 140 Potassium 4.9 Chloride 100 Carbon Dioxide 31 H Anion Gap 14 BUN 16 Creatinine 3.0 H Est GFR ( Amer) 26 Est GFR (Non-Af Amer) 21 POC Glucose (mg/dL) 76 Random Glucose 92 Hemoglobin A1c Calcium 8.5 L Total Bilirubin 0.4 AST 23 ALT 24 Alkaline Phosphatase 118 Troponin I Total Protein 6.6 Albumin 3.4 L Globulin 3.2 Albumin/Globulin Ratio 1.1 Triglycerides Cholesterol LDL Cholesterol Direct HDL Cholesterol Venous Blood Potassium Urine Color Urine Clarity Urine pH Ur Specific [place] Urine Protein Urine Glucose (UA) Urine Ketones Urine Blood Urine Nitrate Urine Bilirubin Urine Urobilinogen Ur Leukocyte Esterase Urine WBC (Auto) Urine RBC (Auto) Urine WBC Clumps (Auto) Urine Bacteria Blood Type Antibody Screen Antibody Identification 03/06/18 11:45 WBC RBC Hgb Hct MCV MCH MCHC RDW Plt Count MPV Neut % (Auto) Lymph % (Auto) [place] % (Auto) Eos % (Auto) Baso % (Auto) Neut # (Auto) Lymph # (Auto) [place] # (Auto) Eos # (Auto) Baso # (Auto) Neutrophils % (Manual) Band Neutrophils % Lymphocytes % (Manual) Monocytes % (Manual) Eosinophils % (Manual) Basophils % (Manual) Platelet Estimate Anisocytosis (manual) PT INR APTT Puncture Site pCO2 pO2 HCO3 ABG pH ABG Total CO2 ABG O2 Saturation ABG Base Excess ABG Hemoglobin ABG Carboxyhemoglobin POC ABG HHb (Measured) ABG Methemoglobin Esvin Test VBG pH VBG pCO2 VBG HCO3 VBG Total CO2 VBG O2 Sat (Calc) VBG Base Excess VBG Potassium A-a O2 Difference Respiratory Index Hgb O2 Saturation Glucose Lactate FiO2 Inspiratory BiPAP Expiratory BiPAP Crit Value Called To Crit Value Called By Crit Value Read Back Blood Gas Notified Time Sodium Potassium Chloride Carbon Dioxide Anion Gap BUN Creatinine Est GFR ( Amer) Est GFR (Non-Af Amer) POC Glucose (mg/dL) 122 H Random Glucose Hemoglobin A1c Calcium Total Bilirubin AST ALT Alkaline Phosphatase Troponin I Total Protein Albumin Globulin Albumin/Globulin Ratio Triglycerides Cholesterol LDL Cholesterol Direct HDL Cholesterol Venous Blood Potassium Urine Color Urine Clarity Urine pH Ur Specific [place] Urine Protein Urine Glucose (UA) Urine Ketones Urine Blood Urine Nitrate Urine Bilirubin Urine Urobilinogen Ur Leukocyte Esterase Urine WBC (Auto) Urine RBC (Auto) Urine WBC Clumps (Auto) Urine Bacteria Blood Type Antibody Screen Antibody Identification Assessment & Plan (1) History of CVA (cerebrovascular accident) Assessment and Plan: 67 year old male w/ PMHx: of stroke w/ residual focal weakness in left upper & b/l lower extremities (L > R), Anemia, Asthma, CHF, COPD, CVA (affecting left side), Depression ('MAJOR DEPRESSIVE DISORDER,SINGLE EPISODE,UNSPECIFIED"), HTN , Hypercholesterolemia, Hyperlipidemia, Peripheral Edema, End Stage Renal Disease (on hemodialysis), Chronic Kidney Disease, Sleep Apnea presented to ED following complications from dialysis. Status: Chronic Comment: Case discused with Dr. Jimenez. Initial CT results: No evidence of acute intracranial hemorrhage territorial infarction mass effect or midline shift. No significant interval change noted in the brain parenchyma since the previous exam. Due to pacemaker, 1) F/u CT results for progression of stroke & 2) Carotid Duplex for possible origin of inital stroke <Jocelyn Jimenez - Last Filed: 03/06/18 15:26> Meds - Medications Medications: Current Medications Alprazolam (Xanax) 0.25 mg PO PRN PRN PRN Reason: Anxiety Stop: 03/12/18 20:43 Last Admin: 03/06/18 10:17 Dose: 0.25 mg Aspirin (Aspirin Chewable) 81 mg PO DAILY [facility] Last Admin: 03/06/18 10:18 Dose: 81 mg Docusate Sodium (Colace) 100 mg PO BID [facility] Last Admin: 03/06/18 10:17 Dose: 100 mg Enoxaparin Sodium (Lovenox) 40 mg SC DAILY [facility] Last Admin: 03/06/18 10:18 Dose: 40 mg Ferrous Sulfate (Feosol) 325 mg PO DAILY [facility] Last Admin: 03/06/18 10:17 Dose: 325 mg Furosemide (Lasix) 40 mg PO DAILY [facility] Last Admin: 03/06/18 10:17 Dose: 40 mg Cefepime HCl 1 gm/ Dextrose 50 mls @ 100 mls/hr IVPB Q12H [facility] PRN Reason: Protocol Last Admin: 03/06/18 10:18 Dose: 100 mls/hr Insulin Human Regular (Novolin R) 0 unit SC ACHS [facility] PRN Reason: Protocol Last Admin: 03/06/18 12:16 Dose: Not Given Lactulose (Enulose) 20 gm PO PRN PRN PRN Reason: Constipation Midodrine (Proamatine) 5 mg PO MWF [facility] Last Admin: 03/06/18 10:28 Dose: 5 mg Ondansetron HCl (Zofran Tab) 4 mg PO Q8H PRN PRN Reason: Nausea/Vomiting Polyethylene Glycol (Miralax) 17 gm PO DAILY [facility] Last Admin: 03/06/18 10:17 Dose: 17 gm Rosuvastatin Calcium (Crestor) 20 mg PO [facility] Sevelamer Carbonate (Renvela) 800 mg PO TID [facility] Last Admin: 03/06/18 13:27 Dose: 800 mg Vitamin B Complex/Vit C/Folic Acid (Nephro-Renaldo) 1 tab PO DAILY [facility] Last Admin: 03/06/18 10:18 Dose: 1 tab Results - Vital Signs Recent Vital Signs: Last Vital Signs Temp 98.5 F 03/06/18 07:00 Pulse 80 03/06/18 15:03 Resp 20 03/06/18 07:00 BP 122/47 L 03/06/18 10:17 Pulse Ox 94 L 03/06/18 07:00 - Labs Result Diagrams: 03/06/18 11:16 03/06/18 11:16 Labs: Laboratory Results - last 24 hr 03/05/18 03/05/18 03/05/18 15:57 16:08 16:08 WBC 6.9 RBC 2.49 L Hgb 8.3 L Hct 25.8 L MCV 103.5 H D MCH 33.1 H MCHC 32.0 L RDW 17.1 H Plt Count 131 MPV 7.6 Neut % (Auto) 77.6 H Lymph % (Auto) 8.9 L [place] % (Auto) 6.3 Eos % (Auto) 6.8 H Baso % (Auto) 0.4 Neut # (Auto) 5.4 Lymph # (Auto) 0.6 L [place] # (Auto) 0.4 Eos # (Auto) 0.5 Baso # (Auto) 0.0 Neutrophils % (Manual) 75 Band Neutrophils % 1 Lymphocytes % (Manual) 9 L Monocytes % (Manual) 5 Eosinophils % (Manual) 9 H Basophils % (Manual) 1 Platelet Estimate Normal Anisocytosis (manual) Slight PT 12.2 INR 1.1 APTT 44 H Puncture Site pCO2 pO2 HCO3 ABG pH ABG Total CO2 ABG O2 Saturation ABG Base Excess ABG Hemoglobin ABG Carboxyhemoglobin POC ABG HHb (Measured) ABG Methemoglobin Esvin Test VBG pH VBG pCO2 VBG HCO3 VBG Total CO2 VBG O2 Sat (Calc) VBG Base Excess VBG Potassium A-a O2 Difference Respiratory Index Hgb O2 Saturation Glucose Lactate FiO2 Inspiratory BiPAP Expiratory BiPAP Crit Value Called To Crit Value Called By Crit Value Read Back Blood Gas Notified Time Sodium Potassium Chloride Carbon Dioxide Anion Gap BUN Creatinine Est GFR ( Amer) Est GFR (Non-Af Amer) POC Glucose (mg/dL) 137 H Random Glucose Hemoglobin A1c Calcium Total Bilirubin AST ALT Alkaline Phosphatase Troponin I Total Protein Albumin Globulin Albumin/Globulin Ratio Triglycerides Cholesterol LDL Cholesterol Direct HDL Cholesterol Venous Blood Potassium Urine Color Urine Clarity Urine pH Ur Specific [place] Urine Protein Urine Glucose (UA) Urine Ketones Urine Blood Urine Nitrate Urine Bilirubin Urine Urobilinogen Ur Leukocyte Esterase Urine WBC (Auto) Urine RBC (Auto) Urine WBC Clumps (Auto) Urine Bacteria Blood Type Antibody Screen Antibody Identification 03/05/18 03/05/18 03/05/18 16:08 16:08 16:09 WBC RBC Hgb Hct MCV MCH MCHC RDW Plt Count MPV Neut % (Auto) Lymph % (Auto) [place] % (Auto) Eos % (Auto) Baso % (Auto) Neut # (Auto) Lymph # (Auto) [place] # (Auto) Eos # (Auto) Baso # (Auto) Neutrophils % (Manual) Band Neutrophils % Lymphocytes % (Manual) Monocytes % (Manual) Eosinophils % (Manual) Basophils % (Manual) Platelet Estimate Anisocytosis (manual) PT INR APTT Puncture Site pCO2 pO2 HCO3 ABG pH ABG Total CO2 ABG O2 Saturation ABG Base Excess ABG Hemoglobin ABG Carboxyhemoglobin POC ABG HHb (Measured) ABG Methemoglobin Esvin Test VBG pH VBG pCO2 VBG HCO3 VBG Total CO2 VBG O2 Sat (Calc) VBG Base Excess VBG Potassium A-a O2 Difference Respiratory Index Hgb O2 Saturation Glucose Lactate FiO2 Inspiratory BiPAP Expiratory BiPAP Crit Value Called To Crit Value Called By Crit Value Read Back Blood Gas Notified Time Sodium 139 Potassium 4.0 Chloride 100 Carbon Dioxide 30 Anion Gap 13 BUN 11 Creatinine 2.0 H Est GFR ( Amer) 41 Est GFR (Non-Af Amer) 34 POC Glucose (mg/dL) Random Glucose 119 H Hemoglobin A1c 4.0 L D Calcium 7.9 L Total Bilirubin 0.4 AST 19 ALT 29 Alkaline Phosphatase 121 Troponin I < 0.0120 Total Protein 5.8 L Albumin 3.0 L Globulin 2.9 Albumin/Globulin Ratio 1.0 Triglycerides 91 D Cholesterol 65 LDL Cholesterol Direct < 30 HDL Cholesterol 35 Venous Blood Potassium Urine Color Urine Clarity Urine pH Ur Specific [place] Urine Protein Urine Glucose (UA) Urine Ketones Urine Blood Urine Nitrate Urine Bilirubin Urine Urobilinogen Ur Leukocyte Esterase Urine WBC (Auto) Urine RBC (Auto) Urine WBC Clumps (Auto) Urine Bacteria Blood Type B POSITIVE Antibody Screen Positive Antibody Identification Non Specific Cold Antibody 03/05/18 03/05/18 03/05/18 16:30 16:42 19:46 WBC RBC Hgb Hct MCV MCH MCHC RDW Plt Count MPV Neut % (Auto) Lymph % (Auto) [place] % (Auto) Eos % (Auto) Baso % (Auto) Neut # (Auto) Lymph # (Auto) [place] # (Auto) Eos # (Auto) Baso # (Auto) Neutrophils % (Manual) Band Neutrophils % Lymphocytes % (Manual) Monocytes % (Manual) Eosinophils % (Manual) Basophils % (Manual) Platelet Estimate Anisocytosis (manual) PT INR APTT Puncture Site Rba pCO2 74 H* pO2 32 79 L HCO3 30.9 H ABG pH 7.29 L ABG Total CO2 37.9 H ABG O2 Saturation 97.7 ABG Base Excess 7.7 H ABG Hemoglobin 8.0 L ABG Carboxyhemoglobin 2.7 H POC ABG HHb (Measured) 2.2 ABG Methemoglobin 1.5 Esvin Test Na VBG pH 7.19 L* VBG pCO2 87 H* VBG HCO3 25.2 VBG Total CO2 35.9 H VBG O2 Sat (Calc) 68.6 H VBG Base Excess 2.2 H VBG Potassium 3.7 A-a O2 Difference 114.0 Respiratory Index 1.4 Hgb O2 Saturation 93.6 L Glucose 114 H Lactate 1.1 FiO2 21.0 40.0 Inspiratory BiPAP 16 Expiratory BiPAP 5 Crit Value Called To Dr sindy dyer rn Crit Value Called By [facility] Crit Value Read Back Y Y Blood Gas Notified Time 1637 1948 Sodium 139.0 Potassium Chloride 105.0 Carbon Dioxide Anion Gap BUN Creatinine Est GFR ( Amer) Est GFR (Non-Af Amer) POC Glucose (mg/dL) Random Glucose Hemoglobin A1c Calcium Total Bilirubin AST ALT Alkaline Phosphatase Troponin I Total Protein Albumin Globulin Albumin/Globulin Ratio Triglycerides Cholesterol LDL Cholesterol Direct HDL Cholesterol Venous Blood Potassium 3.7 Urine Color Light yellow Urine Clarity Turbid Urine pH 6.5 Ur Specific [place] 1.030 Urine Protein > 300 Urine Glucose (UA) 100 Urine Ketones 15 Urine Blood Large Urine Nitrate Positive H Urine Bilirubin Small Urine Urobilinogen 1.0 Ur Leukocyte Esterase Moderate Urine WBC (Auto) 29600 H Urine RBC (Auto) 3845 H Urine WBC Clumps (Auto) Mod H Urine Bacteria Many H Blood Type Antibody Screen Antibody Identification 03/06/18 03/06/18 03/06/18 06:24 11:16 11:16 WBC 4.9 RBC 2.38 L Hgb 7.8 L Hct 24.6 L MCV 103.5 H MCH 32.7 H MCHC 31.6 L RDW 17.1 H Plt Count 137 MPV 8.4 Neut % (Auto) 67.7 Lymph % (Auto) 14.8 L [place] % (Auto) 9.7 Eos % (Auto) 7.0 H Baso % (Auto) 0.8 Neut # (Auto) 3.3 Lymph # (Auto) 0.7 L [place] # (Auto) 0.5 Eos # (Auto) 0.3 Baso # (Auto) 0.0 Neutrophils % (Manual) Band Neutrophils % Lymphocytes % (Manual) Monocytes % (Manual) Eosinophils % (Manual) Basophils % (Manual) Platelet Estimate Anisocytosis (manual) PT INR APTT Puncture Site pCO2 pO2 HCO3 ABG pH ABG Total CO2 ABG O2 Saturation ABG Base Excess ABG Hemoglobin ABG Carboxyhemoglobin POC ABG HHb (Measured) ABG Methemoglobin Esvin Test VBG pH VBG pCO2 VBG HCO3 VBG Total CO2 VBG O2 Sat (Calc) VBG Base Excess VBG Potassium A-a O2 Difference Respiratory Index Hgb O2 Saturation Glucose Lactate FiO2 Inspiratory BiPAP Expiratory BiPAP Crit Value Called To Crit Value Called By Crit Value Read Back Blood Gas Notified Time Sodium 140 Potassium 4.9 Chloride 100 Carbon Dioxide 31 H Anion Gap 14 BUN 16 Creatinine 3.0 H Est GFR ( Amer) 26 Est GFR (Non-Af Amer) 21 POC Glucose (mg/dL) 76 Random Glucose 92 Hemoglobin A1c Calcium 8.5 L Total Bilirubin 0.4 AST 23 ALT 24 Alkaline Phosphatase 118 Troponin I Total Protein 6.6 Albumin 3.4 L Globulin 3.2 Albumin/Globulin Ratio 1.1 Triglycerides Cholesterol LDL Cholesterol Direct HDL Cholesterol Venous Blood Potassium Urine Color Urine Clarity Urine pH Ur Specific [place] Urine Protein Urine Glucose (UA) Urine Ketones Urine Blood Urine Nitrate Urine Bilirubin Urine Urobilinogen Ur Leukocyte Esterase Urine WBC (Auto) Urine RBC (Auto) Urine WBC Clumps (Auto) Urine Bacteria Blood Type Antibody Screen Antibody Identification 03/06/18 11:45 WBC RBC Hgb Hct MCV MCH MCHC RDW Plt Count MPV Neut % (Auto) Lymph % (Auto) [place] % (Auto) Eos % (Auto) Baso % (Auto) Neut # (Auto) Lymph # (Auto) [place] # (Auto) Eos # (Auto) Baso # (Auto) Neutrophils % (Manual) Band Neutrophils % Lymphocytes % (Manual) Monocytes % (Manual) Eosinophils % (Manual) Basophils % (Manual) Platelet Estimate Anisocytosis (manual) PT INR APTT Puncture Site pCO2 pO2 HCO3 ABG pH ABG Total CO2 ABG O2 Saturation ABG Base Excess ABG Hemoglobin ABG Carboxyhemoglobin POC ABG HHb (Measured) ABG Methemoglobin Esvin Test VBG pH VBG pCO2 VBG HCO3 VBG Total CO2 VBG O2 Sat (Calc) VBG Base Excess VBG Potassium A-a O2 Difference Respiratory Index Hgb O2 Saturation Glucose Lactate FiO2 Inspiratory BiPAP Expiratory BiPAP Crit Value Called To Crit Value Called By Crit Value Read Back Blood Gas Notified Time Sodium Potassium Chloride Carbon Dioxide Anion Gap BUN Creatinine Est GFR ( Amer) Est GFR (Non-Af Amer) POC Glucose (mg/dL) 122 H Random Glucose Hemoglobin A1c Calcium Total Bilirubin AST ALT Alkaline Phosphatase Troponin I Total Protein Albumin Globulin Albumin/Globulin Ratio Triglycerides Cholesterol LDL Cholesterol Direct HDL Cholesterol Venous Blood Potassium Urine Color Urine Clarity Urine pH Ur Specific [place] Urine Protein Urine Glucose (UA) Urine Ketones Urine Blood Urine Nitrate Urine Bilirubin Urine Urobilinogen Ur Leukocyte Esterase Urine WBC (Auto) Urine RBC (Auto) Urine WBC Clumps (Auto) Urine Bacteria Blood Type Antibody Screen Antibody Identification Assessment & Plan - Assessment and Plan (Free Text) Assessment: Neurology attending note: Patient examined and plan formulated with resident. Agree with above. CTA needed. Repeat CT to rule out new onset stroke. lipid profile. scds pt st ot aspirin. Thank you Dr jimenez
--- NOTE | 2018-03-06 15:59 | CP.PCM.CON ---
History of Present Illness - History of Present Illness History of Present Illness: REASON FOR CONSULTATION: sHORTNESS OF BREATH/HYPERCAPNIC RESPIRATORY FAILURE 67-year-old male with history of end-stage renal disease on hemodialysis, COPD, depression, CVA, coronary artery disease status post CABG, sleep apnea who presented to emergency room after he was found unresponsive while receiving dialysis. Also patient fistula started bleeding. In the emergency room patient was placed on BiPAP for hypercapnic respiratory failure. patient became much more aphasic and responsive ABG after BIPAP showed improvement in pH and PaCO2 patient poor historian.History from chart and patients relative Review of Systems - Review of Systems Systems not reviewed;Unavailable: Other (on BiPAP) Past Patient History - Infectious Disease Hx of Infectious Diseases: None - Past Medical History & Family History Past Medical History?: Yes - Past Social History Smoking Status: Never Smoked - CARDIAC Hx Congestive Heart Failure: Yes Hx Hypercholesterolemia: Yes Hx Hypertension: Yes - PULMONARY Hx Chronic Obstructive Pulmonary Disease (COPD): Yes - NEUROLOGICAL HX Cerebrovascular Accident: Yes (L UE AND B/L LE WEAKNESS) - HEENT Hx HEENT Problems: Yes Hx Cataracts: Yes - RENAL Date of Last Dialysis Treatment: 03/05/18 - ENDOCRINE/METABOLIC Hx Endocrine Disorders: Yes Hx Diabetes Mellitus Type 2: Yes - HEMATOLOGICAL/ONCOLOGICAL Hx Blood Disorders: Yes Hx Anemia: Yes - INTEGUMENTARY Hx Dermatological Problems: Yes Other/Comment: healed sacral ulcer - MUSCULOSKELETAL/RHEUMATOLOGICAL Hx Falls: Yes - GASTROINTESTINAL Hx Gastrointestinal Disorders: Yes Other/Comment: HX: DYSPHAGIA,UNSPECIFIED - GENITOURINARY/GYNECOLOGICAL Hx Genitourinary Disorders: No - PSYCHIATRIC Hx Substance Use: No - SURGICAL HISTORY Hx Surgeries: Yes Hx Coronary Artery Bypass Graft: Yes - ANESTHESIA Hx Anesthesia: Yes Hx Anesthesia Reactions: No Hx Malignant Hyperthermia: No Meds Allergies/Adverse Reactions: Allergies Allergy/AdvReac Type Severity Reaction Status Date / Time iodine Allergy Intermediate RASH Verified 03/05/18 15:49 clopidogrel [From Plavix] Allergy SHORTNESS Verified 03/05/18 15:49 OF BREATH clopidogrel bisulfate Allergy UNKNOWN Verified 03/05/18 17:14 [From Plavix] penicillin G Allergy SHORTNESS Verified 03/05/18 15:49 OF BREATH Penicillins Allergy UNKNOWN Verified 03/05/18 15:49 IV DYE Allergy unknown Uncoded 03/05/18 15:49 - Medications Medications: Current Medications Alprazolam (Xanax) 0.25 mg PO PRN PRN PRN Reason: Anxiety Stop: 03/12/18 20:43 Last Admin: 03/06/18 10:17 Dose: 0.25 mg Aspirin (Aspirin Chewable) 81 mg PO DAILY [facility] Last Admin: 03/06/18 10:18 Dose: 81 mg Docusate Sodium (Colace) 100 mg PO BID [facility] Last Admin: 03/06/18 10:17 Dose: 100 mg Enoxaparin Sodium (Lovenox) 40 mg SC DAILY [facility] Last Admin: 03/06/18 10:18 Dose: 40 mg Ferrous Sulfate (Feosol) 325 mg PO DAILY [facility] Last Admin: 03/06/18 10:17 Dose: 325 mg Furosemide (Lasix) 40 mg PO DAILY [facility] Last Admin: 03/06/18 10:17 Dose: 40 mg Cefepime HCl 1 gm/ Dextrose 50 mls @ 100 mls/hr IVPB Q12H [facility] PRN Reason: Protocol Last Admin: 03/06/18 10:18 Dose: 100 mls/hr Insulin Human Regular (Novolin R) 0 unit SC ACHS [facility] PRN Reason: Protocol Last Admin: 03/06/18 12:16 Dose: Not Given Lactulose (Enulose) 20 gm PO PRN PRN PRN Reason: Constipation Midodrine (Proamatine) 5 mg PO MWF [facility] Last Admin: 03/06/18 10:28 Dose: 5 mg Ondansetron HCl (Zofran Tab) 4 mg PO Q8H PRN PRN Reason: Nausea/Vomiting Polyethylene Glycol (Miralax) 17 gm PO DAILY [facility] Last Admin: 03/06/18 10:17 Dose: 17 gm Rosuvastatin Calcium (Crestor) 20 mg PO [facility] Sevelamer Carbonate (Renvela) 800 mg PO TID [facility] Last Admin: 03/06/18 13:27 Dose: 800 mg Vitamin B Complex/Vit C/Folic Acid (Nephro-Renaldo) 1 tab PO DAILY [facility] Last Admin: 03/06/18 10:18 Dose: 1 tab Physical Exam - Head Exam Head Exam: ATRAUMATIC, NORMOCEPHALIC - ENT Exam ENT Exam: Mucous Membranes Moist - Neck Exam Neck exam: Positive for: Normal Inspection - Respiratory Exam Respiratory Exam: Rhonchi - Cardiovascular Exam Cardiovascular Exam: REGULAR RHYTHM Results - Vital Signs Recent Vital Signs: Last Vital Signs Temp 98.5 F 03/06/18 07:00 Pulse 80 03/06/18 15:03 Resp 20 03/06/18 07:00 BP 122/47 L 03/06/18 10:17 Pulse Ox 94 L 03/06/18 07:00 - Labs Result Diagrams: 03/06/18 11:16 03/06/18 11:16 Labs: Laboratory Results - last 24 hr 03/05/18 03/05/18 03/05/18 15:57 16:08 16:08 WBC 6.9 RBC 2.49 L Hgb 8.3 L Hct 25.8 L MCV 103.5 H D MCH 33.1 H MCHC 32.0 L RDW 17.1 H Plt Count 131 MPV 7.6 Neut % (Auto) 77.6 H Lymph % (Auto) 8.9 L [place] % (Auto) 6.3 Eos % (Auto) 6.8 H Baso % (Auto) 0.4 Neut # (Auto) 5.4 Lymph # (Auto) 0.6 L [place] # (Auto) 0.4 Eos # (Auto) 0.5 Baso # (Auto) 0.0 Neutrophils % (Manual) 75 Band Neutrophils % 1 Lymphocytes % (Manual) 9 L Monocytes % (Manual) 5 Eosinophils % (Manual) 9 H Basophils % (Manual) 1 Platelet Estimate Normal Anisocytosis (manual) Slight PT 12.2 INR 1.1 APTT 44 H Puncture Site pCO2 pO2 HCO3 ABG pH ABG Total CO2 ABG O2 Saturation ABG Base Excess ABG Hemoglobin ABG Carboxyhemoglobin POC ABG HHb (Measured) ABG Methemoglobin Esvin Test VBG pH VBG pCO2 VBG HCO3 VBG Total CO2 VBG O2 Sat (Calc) VBG Base Excess VBG Potassium A-a O2 Difference Respiratory Index Hgb O2 Saturation Glucose Lactate FiO2 Inspiratory BiPAP Expiratory BiPAP Crit Value Called To Crit Value Called By Crit Value Read Back Blood Gas Notified Time Sodium Potassium Chloride Carbon Dioxide Anion Gap BUN Creatinine Est GFR ( Amer) Est GFR (Non-Af Amer) POC Glucose (mg/dL) 137 H Random Glucose Hemoglobin A1c Calcium Total Bilirubin AST ALT Alkaline Phosphatase Troponin I Total Protein Albumin Globulin Albumin/Globulin Ratio Triglycerides Cholesterol LDL Cholesterol Direct HDL Cholesterol Venous Blood Potassium Urine Color Urine Clarity Urine pH Ur Specific [place] Urine Protein Urine Glucose (UA) Urine Ketones Urine Blood Urine Nitrate Urine Bilirubin Urine Urobilinogen Ur Leukocyte Esterase Urine WBC (Auto) Urine RBC (Auto) Urine WBC Clumps (Auto) Urine Bacteria Blood Type Antibody Screen Antibody Identification 03/05/18 03/05/18 03/05/18 16:08 16:08 16:09 WBC RBC Hgb Hct MCV MCH MCHC RDW Plt Count MPV Neut % (Auto) Lymph % (Auto) [place] % (Auto) Eos % (Auto) Baso % (Auto) Neut # (Auto) Lymph # (Auto) [place] # (Auto) Eos # (Auto) Baso # (Auto) Neutrophils % (Manual) Band Neutrophils % Lymphocytes % (Manual) Monocytes % (Manual) Eosinophils % (Manual) Basophils % (Manual) Platelet Estimate Anisocytosis (manual) PT INR APTT Puncture Site pCO2 pO2 HCO3 ABG pH ABG Total CO2 ABG O2 Saturation ABG Base Excess ABG Hemoglobin ABG Carboxyhemoglobin POC ABG HHb (Measured) ABG Methemoglobin Esvin Test VBG pH VBG pCO2 VBG HCO3 VBG Total CO2 VBG O2 Sat (Calc) VBG Base Excess VBG Potassium A-a O2 Difference Respiratory Index Hgb O2 Saturation Glucose Lactate FiO2 Inspiratory BiPAP Expiratory BiPAP Crit Value Called To Crit Value Called By Crit Value Read Back Blood Gas Notified Time Sodium 139 Potassium 4.0 Chloride 100 Carbon Dioxide 30 Anion Gap 13 BUN 11 Creatinine 2.0 H Est GFR ( Amer) 41 Est GFR (Non-Af Amer) 34 POC Glucose (mg/dL) Random Glucose 119 H Hemoglobin A1c 4.0 L D Calcium 7.9 L Total Bilirubin 0.4 AST 19 ALT 29 Alkaline Phosphatase 121 Troponin I < 0.0120 Total Protein 5.8 L Albumin 3.0 L Globulin 2.9 Albumin/Globulin Ratio 1.0 Triglycerides 91 D Cholesterol 65 LDL Cholesterol Direct < 30 HDL Cholesterol 35 Venous Blood Potassium Urine Color Urine Clarity Urine pH Ur Specific [place] Urine Protein Urine Glucose (UA) Urine Ketones Urine Blood Urine Nitrate Urine Bilirubin Urine Urobilinogen Ur Leukocyte Esterase Urine WBC (Auto) Urine RBC (Auto) Urine WBC Clumps (Auto) Urine Bacteria Blood Type B POSITIVE Antibody Screen Positive Antibody Identification Non Specific [place] Antibody 03/05/18 03/05/18 03/05/18 16:30 16:42 19:46 WBC RBC Hgb Hct MCV MCH MCHC RDW Plt Count MPV Neut % (Auto) Lymph % (Auto) [place] % (Auto) Eos % (Auto) Baso % (Auto) Neut # (Auto) Lymph # (Auto) [place] # (Auto) Eos # (Auto) Baso # (Auto) Neutrophils % (Manual) Band Neutrophils % Lymphocytes % (Manual) Monocytes % (Manual) Eosinophils % (Manual) Basophils % (Manual) Platelet Estimate Anisocytosis (manual) PT INR APTT Puncture Site Rba pCO2 74 H* pO2 32 79 L HCO3 30.9 H ABG pH 7.29 L ABG Total CO2 37.9 H ABG O2 Saturation 97.7 ABG Base Excess 7.7 H ABG Hemoglobin 8.0 L ABG Carboxyhemoglobin 2.7 H POC ABG HHb (Measured) 2.2 ABG Methemoglobin 1.5 Esvin Test Na VBG pH 7.19 L* VBG pCO2 87 H* VBG HCO3 25.2 VBG Total CO2 35.9 H VBG O2 Sat (Calc) 68.6 H VBG Base Excess 2.2 H VBG Potassium 3.7 A-a O2 Difference 114.0 Respiratory Index 1.4 Hgb O2 Saturation 93.6 L Glucose 114 H Lactate 1.1 FiO2 21.0 40.0 Inspiratory BiPAP 16 Expiratory BiPAP 5 Crit Value Called To Dr sindy dyer rn Crit Value Called By [facility] Crit Value Read Back Y Y Blood Gas Notified Time 1637 1948 Sodium 139.0 Potassium Chloride 105.0 Carbon Dioxide Anion Gap BUN Creatinine Est GFR ( Amer) Est GFR (Non-Af Amer) POC Glucose (mg/dL) Random Glucose Hemoglobin A1c Calcium Total Bilirubin AST ALT Alkaline Phosphatase Troponin I Total Protein Albumin Globulin Albumin/Globulin Ratio Triglycerides Cholesterol LDL Cholesterol Direct HDL Cholesterol Venous Blood Potassium 3.7 Urine Color Light yellow Urine Clarity Turbid Urine pH 6.5 Ur Specific [place] 1.030 Urine Protein > 300 Urine Glucose (UA) 100 Urine Ketones 15 Urine Blood Large Urine Nitrate Positive H Urine Bilirubin Small Urine Urobilinogen 1.0 Ur Leukocyte Esterase Moderate Urine WBC (Auto) 28686 H Urine RBC (Auto) 3845 H Urine WBC Clumps (Auto) Mod H Urine Bacteria Many H Blood Type Antibody Screen Antibody Identification 03/06/18 03/06/18 03/06/18 06:24 11:16 11:16 WBC 4.9 RBC 2.38 L Hgb 7.8 L Hct 24.6 L MCV 103.5 H MCH 32.7 H MCHC 31.6 L RDW 17.1 H Plt Count 137 MPV 8.4 Neut % (Auto) 67.7 Lymph % (Auto) 14.8 L [place] % (Auto) 9.7 Eos % (Auto) 7.0 H Baso % (Auto) 0.8 Neut # (Auto) 3.3 Lymph # (Auto) 0.7 L [place] # (Auto) 0.5 Eos # (Auto) 0.3 Baso # (Auto) 0.0 Neutrophils % (Manual) Band Neutrophils % Lymphocytes % (Manual) Monocytes % (Manual) Eosinophils % (Manual) Basophils % (Manual) Platelet Estimate Anisocytosis (manual) PT INR APTT Puncture Site pCO2 pO2 HCO3 ABG pH ABG Total CO2 ABG O2 Saturation ABG Base Excess ABG Hemoglobin ABG Carboxyhemoglobin POC ABG HHb (Measured) ABG Methemoglobin Esvin Test VBG pH VBG pCO2 VBG HCO3 VBG Total CO2 VBG O2 Sat (Calc) VBG Base Excess VBG Potassium A-a O2 Difference Respiratory Index Hgb O2 Saturation Glucose Lactate FiO2 Inspiratory BiPAP Expiratory BiPAP Crit Value Called To Crit Value Called By Crit Value Read Back Blood Gas Notified Time Sodium 140 Potassium 4.9 Chloride 100 Carbon Dioxide 31 H Anion Gap 14 BUN 16 Creatinine 3.0 H Est GFR ( Amer) 26 Est GFR (Non-Af Amer) 21 POC Glucose (mg/dL) 76 Random Glucose 92 Hemoglobin A1c Calcium 8.5 L Total Bilirubin 0.4 AST 23 ALT 24 Alkaline Phosphatase 118 Troponin I Total Protein 6.6 Albumin 3.4 L Globulin 3.2 Albumin/Globulin Ratio 1.1 Triglycerides Cholesterol LDL Cholesterol Direct HDL Cholesterol Venous Blood Potassium Urine Color Urine Clarity Urine pH Ur Specific [place] Urine Protein Urine Glucose (UA) Urine Ketones Urine Blood Urine Nitrate Urine Bilirubin Urine Urobilinogen Ur Leukocyte Esterase Urine WBC (Auto) Urine RBC (Auto) Urine WBC Clumps (Auto) Urine Bacteria Blood Type Antibody Screen Antibody Identification 03/06/18 11:45 WBC RBC Hgb Hct MCV MCH MCHC RDW Plt Count MPV Neut % (Auto) Lymph % (Auto) [place] % (Auto) Eos % (Auto) Baso % (Auto) Neut # (Auto) Lymph # (Auto) [place] # (Auto) Eos # (Auto) Baso # (Auto) Neutrophils % (Manual) Band Neutrophils % Lymphocytes % (Manual) Monocytes % (Manual) Eosinophils % (Manual) Basophils % (Manual) Platelet Estimate Anisocytosis (manual) PT INR APTT Puncture Site pCO2 pO2 HCO3 ABG pH ABG Total CO2 ABG O2 Saturation ABG Base Excess ABG Hemoglobin ABG Carboxyhemoglobin POC ABG HHb (Measured) ABG Methemoglobin Esvin Test VBG pH VBG pCO2 VBG HCO3 VBG Total CO2 VBG O2 Sat (Calc) VBG Base Excess VBG Potassium A-a O2 Difference Respiratory Index Hgb O2 Saturation Glucose Lactate FiO2 Inspiratory BiPAP Expiratory BiPAP Crit Value Called To Crit Value Called By Crit Value Read Back Blood Gas Notified Time Sodium Potassium Chloride Carbon Dioxide Anion Gap BUN Creatinine Est GFR ( Amer) Est GFR (Non-Af Amer) POC Glucose (mg/dL) 122 H Random Glucose Hemoglobin A1c Calcium Total Bilirubin AST ALT Alkaline Phosphatase Troponin I Total Protein Albumin Globulin Albumin/Globulin Ratio Triglycerides Cholesterol LDL Cholesterol Direct HDL Cholesterol Venous Blood Potassium Urine Color Urine Clarity Urine pH Ur Specific [place] Urine Protein Urine Glucose (UA) Urine Ketones Urine Blood Urine Nitrate Urine Bilirubin Urine Urobilinogen Ur Leukocyte Esterase Urine WBC (Auto) Urine RBC (Auto) Urine WBC Clumps (Auto) Urine Bacteria Blood Type Antibody Screen Antibody Identification Assessment & Plan (1) Hypercapnic respiratory failure Status: Acute Comment: continue patient on BiPAP. Follow-up ABG. Nebulizer treatment. Inhaled steroid. Continue hemodialysis (2) ESRD on hemodialysis Status: Acute (3) COPD (chronic obstructive pulmonary disease) Status: Acute
--- NOTE | 2018-03-06 18:07 | CP.PCM.CON ---
History of Present Illness - History of Present Illness History of Present Illness: 67 y/o male with ESRD on HD, CHF,CABG, COPD, CVA (affecting left side), Depression , HTN, Hypercholesterolemia, Hyperlipidemia, Peripheral Edema, Sleep Apnea was receiving his usual dialysis today when he apparently became unresponsive. Dialysis center staff apparently started CPR and when the pt was taken off of the dialysis machine his fistula started bleeding. Bleeding was then controlled with pressure dressing. EMS found pt to be drowsy, but responsive. [place] patient was found to be in hypercapnic respiratory failure placed on BIPAP with clinical improvement Denied chest pain and difficulty breathing . Patient has PMHx of quadruple bypass, COPD, sleep apnea, ESERD on HD., CVA affecting left, HTN, and DM. Patient's PSH of CABG (quardruple bypass 2006), endoscopy, pacemaker. PMHx: COPD, sleep apnea, ESRD on HD. CVA affecting left, HTN, DM Quadruple bypass, COPD, Sleep apnea, ESRD on HD PSH: CABG (quadruple bypass 2006), Endoscopy, pacemaker Review of Systems - Review of Systems All systems: reviewed and no additional remarkable complaints except - Constitutional Constitutional: As Per HPI - EENT Eyes: absent: As Per HPI, Blind Spots, Blurred Vision, Change in Vision, Decreased Night Vision, Diplopia, Discharge, Dry Eye, Exophthalmos, Floaters, Irritation, Itchy Eyes, Loss of Peripheral Vision, Pain, Photophobia, Requires Corrective Lenses, Sees Flashes, Spots in Vision, Tunnel Vision, Other Visual Disturbances, Loss of Vision, Other Ears: absent: As Per HPI, Decreased Hearing, Ear Discharge, Ear Pain, Tinnitus, Abnormal Hearing, Disequilibrium, Dizziness, Other Nose/Mouth/Throat: absent: As Per HPI, Epistaxis, Nasal Congestion, Nasal Discharge, Nasal Obstruction, Nasal Trauma, Nose Pain, Post Nasal Drip, Sinus Pain, Sinus Pressure, Bleeding Gums, Change in Voice, Dental Pain, Dry Mouth, Dysphagia, Halitosis, Hoarsness, Lip Swelling, Mouth Lesions, Mouth Pain, Odynophagia, Sore Throat, Throat Swelling, Tongue Swelling, Facial Pain, Neck Pain, Neck Mass, Other - Cardiovascular Cardiovascular: As Per HPI - Respiratory Respiratory: As Per HPI, Cough, Dyspnea, Dyspnea on Exertion. absent: Hemoptysis - Gastrointestinal Gastrointestinal: absent: As Per HPI, Abdominal Pain, Belching, Bloating, Change in Bowel Habits, Change in Stool Character, Coffee Ground Emesis, Constipation, Cramping, Diarrhea, Dyspepsia, Dysphagia, Early Satiety, Excessive Flatus, Fecal Incontinence, Heartburn, Hematemesis, Hematochezia, Loose Stools, Melena, Nausea, Odynophagia, Temesmus, Vomiting, Other - Genitourinary Genitourinary: absent: As Per HPI, Change in Urinary Stream, Difficulty Urinating, Dysuria, Flank Pain, Hematuria, Pyuria, Nocturia, Urinary Incontinence, Urinary Frequency, Urinary Hesitance, Urinary Urgency, Voiding Freq/Small Amts, Freq UTI, Hx Renal/Bladder Calculi, Hx /Renal Surgery, Bladder Distension, Other - Musculoskeletal Musculoskeletal: absent: As Per HPI, Abnormal Gait, Arthralgias, Atrophy, Back Pain, Deformity, Joint Swelling, Limited Range of Motion, Loss of Height, Muscle Cramps, Muscle Weakness, Myalgias, Neck Pain, Numbness, Radiating Pain into Limb, Stiffness, Tingling, Other - Integumentary Integumentary: absent: As Per HPI, Acne, Alopecia, Bleeding Lesions, Change in Hair, Change in Nails, Change in Pigmentation, Changing Lesions, Dry Skin, Erythema, Furuncle, Hirsutism, Lesions, New Lesions, Non-Healing Lesions, Photosensitivity, Pruritus, Rash, Skin Pain, Skin Ulcer, Sores, Striae, Swelling , Unusual Bruising, Wounds, Jaundice, Other - Neurological Neurological: As Per HPI - Psychiatric Psychiatric: absent: As Per HPI, Abnormal Sleep Pattern, Anhedonia, Anxiety, Auditory Hallucinations, Behavioral Changes, Change in Appetite, Change in Libido, Confusion, Depression, Difficulty Concentrating, Hallucinations, Homicidal Ideation, Hopelessness, Irritability, Memory Loss, Mood Swings, Panic Attacks, Paranoia, Suicidal Ideation, Visual Hallucinations, Tactile Hallucinations, Other - Endocrine Endocrine: absent: As Per HPI, Change in Body Appearance, Change in Libido, Cold Intolorance, Deepening of Voice, Excessive Sweating, Fatigue, Flushing, Heat Intolorance, Increase in Ring/Shoe/Hat Size, Palpitations, Polydipsia, Polyphagia, Polyuria, Other Past Patient History - Infectious Disease Hx of Infectious Diseases: None - Past Medical History & Family History Past Medical History?: Yes - Past Social History Smoking Status: Never Smoked - CARDIAC Hx Congestive Heart Failure: Yes Hx Hypercholesterolemia: Yes Hx Hypertension: Yes - PULMONARY Hx Chronic Obstructive Pulmonary Disease (COPD): Yes - NEUROLOGICAL HX Cerebrovascular Accident: Yes (L UE AND B/L LE WEAKNESS) - HEENT Hx HEENT Problems: Yes Hx Cataracts: Yes - RENAL Date of Last Dialysis Treatment: 03/05/18 - ENDOCRINE/METABOLIC Hx Diabetes Mellitus Type 2: Yes - HEMATOLOGICAL/ONCOLOGICAL Hx Blood Disorders: Yes Hx Anemia: Yes - INTEGUMENTARY Hx Dermatological Problems: Yes Other/Comment: healed sacral ulcer - MUSCULOSKELETAL/RHEUMATOLOGICAL Hx Falls: Yes - GASTROINTESTINAL Hx Gastrointestinal Disorders: Yes Other/Comment: HX: DYSPHAGIA,UNSPECIFIED - GENITOURINARY/GYNECOLOGICAL Hx Genitourinary Disorders: No - PSYCHIATRIC Hx Substance Use: No - SURGICAL HISTORY Hx Surgeries: Yes Hx Coronary Artery Bypass Graft: Yes - ANESTHESIA Hx Anesthesia: Yes Hx Anesthesia Reactions: No Hx Malignant Hyperthermia: No Meds Allergies/Adverse Reactions: Allergies Allergy/AdvReac Type Severity Reaction Status Date / Time iodine Allergy Intermediate RASH Verified 03/05/18 15:49 clopidogrel [From Plavix] Allergy SHORTNESS Verified 03/05/18 15:49 OF BREATH clopidogrel bisulfate Allergy UNKNOWN Verified 03/05/18 17:14 [From Plavix] penicillin G Allergy SHORTNESS Verified 03/05/18 15:49 OF BREATH Penicillins Allergy UNKNOWN Verified 03/05/18 15:49 IV DYE Allergy unknown Uncoded 03/05/18 15:49 - Medications Medications: Current Medications Albuterol/Ipratropium (Duoneb 3 Mg/0.5 Mg (3 Ml) Ud) 3 ml INH RQ6 [facility] Alprazolam (Xanax) 0.25 mg PO PRN PRN PRN Reason: Anxiety Stop: 03/12/18 20:43 Last Admin: 03/06/18 10:17 Dose: 0.25 mg Aspirin (Aspirin Chewable) 81 mg PO DAILY [facility] Last Admin: 03/06/18 10:18 Dose: 81 mg Budesonide (Pulmicort Respules) 0.5 mg INH RQ12 [facility] Docusate Sodium (Colace) 100 mg PO BID [facility] Last Admin: 03/06/18 17:26 Dose: 100 mg Enoxaparin Sodium (Lovenox) 40 mg SC DAILY [facility] Last Admin: 03/06/18 10:18 Dose: 40 mg Ferrous Sulfate (Feosol) 325 mg PO DAILY [facility] Last Admin: 03/06/18 10:17 Dose: 325 mg Furosemide (Lasix) 40 mg PO DAILY [facility] Last Admin: 03/06/18 10:17 Dose: 40 mg Cefepime HCl 1 gm/ Dextrose 50 mls @ 100 mls/hr IVPB Q12H [facility] PRN Reason: Protocol Last Admin: 03/06/18 10:18 Dose: 100 mls/hr Insulin Human Regular (Novolin R) 0 unit SC ACHS [facility] PRN Reason: Protocol Last Admin: 03/06/18 17:26 Dose: Not Given Lactulose (Enulose) 20 gm PO PRN PRN PRN Reason: Constipation Midodrine (Proamatine) 5 mg PO MWF [facility] Last Admin: 03/06/18 10:28 Dose: 5 mg Ondansetron HCl (Zofran Tab) 4 mg PO Q8H PRN PRN Reason: Nausea/Vomiting Polyethylene Glycol (Miralax) 17 gm PO DAILY [facility] Last Admin: 03/06/18 10:17 Dose: 17 gm Rosuvastatin Calcium (Crestor) 20 mg PO HS [facility] Sevelamer Carbonate (Renvela) 800 mg PO TID [facility] Last Admin: 03/06/18 17:26 Dose: 800 mg Vitamin B Complex/Vit C/Folic Acid (Nephro-Renaldo) 1 tab PO DAILY [facility] Last Admin: 03/06/18 10:18 Dose: 1 tab Physical Exam - Constitutional Appears: Non-toxic, No Acute Distress, Chronically Ill - Head Exam Head Exam: ATRAUMATIC, NORMAL INSPECTION, NORMOCEPHALIC - Eye Exam Eye Exam: EOMI, PERRL. absent: Scleral icterus - ENT Exam ENT Exam: Mucous Membranes Dry, Normal External Ear Exam - Neck Exam Neck exam: Negative for: Lymphadenopathy - Respiratory Exam Respiratory Exam: Decreased Breath Sounds, Rales, Rhonchi - Cardiovascular Exam Cardiovascular Exam: REGULAR RHYTHM, +S1, +S2 - GI/Abdominal Exam GI & Abdominal Exam: Diminished Bowel Sounds, Distended, Soft. absent: Rebound , Rigid, Tenderness - Rectal Exam Rectal Exam: Deferred - Exam Exam: NORMAL INSPECTION - Extremities Exam Extremities exam: Positive for: pedal edema, pedal pulses present. Negative for : calf tenderness, tenderness - Back Exam Back exam: absent: CVA tenderness (L), CVA tenderness (R), paraspinal tenderness - Neurological Exam Neurological exam: Alert, CN II-XII Intact, Motor Sensory Deficit, Oriented x3 Additional comments: right sided weaker than left - Psychiatric Exam Psychiatric exam: Depressed - Skin Skin Exam: Dry Results - Vital Signs Recent Vital Signs: Last Vital Signs Temp 98.4 F 03/06/18 16:35 Pulse 80 03/06/18 16:35 Resp 18 03/06/18 16:35 BP 104/61 03/06/18 16:35 Pulse Ox 99 03/06/18 16:35 - Labs Result Diagrams: 03/06/18 11:16 03/06/18 11:16 Labs: Laboratory Results - last 24 hr 03/05/18 03/05/18 03/05/18 16:08 16:09 19:46 WBC RBC Hgb Hct MCV MCH MCHC RDW Plt Count MPV Neut % (Auto) Lymph % (Auto) [place] % (Auto) Eos % (Auto) Baso % (Auto) Neut # (Auto) Lymph # (Auto) [place] # (Auto) Eos # (Auto) Baso # (Auto) Neutrophils % (Manual) 75 Band Neutrophils % 1 Lymphocytes % (Manual) 9 L Monocytes % (Manual) 5 Eosinophils % (Manual) 9 H Basophils % (Manual) 1 Platelet Estimate Normal Anisocytosis (manual) Slight Puncture Site Rba pCO2 74 H* pO2 79 L HCO3 30.9 H ABG pH 7.29 L ABG Total CO2 37.9 H ABG O2 Saturation 97.7 ABG Base Excess 7.7 H ABG Hemoglobin 8.0 L ABG Carboxyhemoglobin 2.7 H POC ABG HHb (Measured) 2.2 ABG Methemoglobin 1.5 Esvin Test Na A-a O2 Difference 114.0 Respiratory Index 1.4 Hgb O2 Saturation 93.6 L FiO2 40.0 Inspiratory BiPAP 16 Expiratory BiPAP 5 Crit Value Called To Liyah dyer rn Crit Value Called By Navneet Crit Value Read Back Y Blood Gas Notified Time 1948 Sodium Potassium Chloride Carbon Dioxide Anion Gap BUN Creatinine Est GFR ( Amer) Est GFR (Non-Af Amer) POC Glucose (mg/dL) Random Glucose Calcium Total Bilirubin AST ALT Alkaline Phosphatase Total Protein Albumin Globulin Albumin/Globulin Ratio Blood Type B POSITIVE Antibody Screen Positive Antibody Identification Non Specific Cold Antibody 03/06/18 03/06/18 03/06/18 06:24 11:16 11:16 WBC 4.9 RBC 2.38 L Hgb 7.8 L Hct 24.6 L MCV 103.5 H MCH 32.7 H MCHC 31.6 L RDW 17.1 H Plt Count 137 MPV 8.4 Neut % (Auto) 67.7 Lymph % (Auto) 14.8 L Luce % (Auto) 9.7 Eos % (Auto) 7.0 H Baso % (Auto) 0.8 Neut # (Auto) 3.3 Lymph # (Auto) 0.7 L [place] # (Auto) 0.5 Eos # (Auto) 0.3 Baso # (Auto) 0.0 Neutrophils % (Manual) Band Neutrophils % Lymphocytes % (Manual) Monocytes % (Manual) Eosinophils % (Manual) Basophils % (Manual) Platelet Estimate Anisocytosis (manual) Puncture Site pCO2 pO2 HCO3 ABG pH ABG Total CO2 ABG O2 Saturation ABG Base Excess ABG Hemoglobin ABG Carboxyhemoglobin POC ABG HHb (Measured) ABG Methemoglobin Esvin Test A-a O2 Difference Respiratory Index Hgb O2 Saturation FiO2 Inspiratory BiPAP Expiratory BiPAP Crit Value Called To Crit Value Called By Crit Value Read Back Blood Gas Notified Time Sodium 140 Potassium 4.9 Chloride 100 Carbon Dioxide 31 H Anion Gap 14 BUN 16 Creatinine 3.0 H Est GFR ( Amer) 26 Est GFR (Non-Af Amer) 21 POC Glucose (mg/dL) 76 Random Glucose 92 Calcium 8.5 L Total Bilirubin 0.4 AST 23 ALT 24 Alkaline Phosphatase 118 Total Protein 6.6 Albumin 3.4 L Globulin 3.2 Albumin/Globulin Ratio 1.1 Blood Type Antibody Screen Antibody Identification 03/06/18 03/06/18 11:45 16:56 WBC RBC Hgb Hct MCV MCH MCHC RDW Plt Count MPV Neut % (Auto) Lymph % (Auto) Luce % (Auto) Eos % (Auto) Baso % (Auto) Neut # (Auto) Lymph # (Auto) Luce # (Auto) Eos # (Auto) Baso # (Auto) Neutrophils % (Manual) Band Neutrophils % Lymphocytes % (Manual) Monocytes % (Manual) Eosinophils % (Manual) Basophils % (Manual) Platelet Estimate Anisocytosis (manual) Puncture Site pCO2 pO2 HCO3 ABG pH ABG Total CO2 ABG O2 Saturation ABG Base Excess ABG Hemoglobin ABG Carboxyhemoglobin POC ABG HHb (Measured) ABG Methemoglobin Esvin Test A-a O2 Difference Respiratory Index Hgb O2 Saturation FiO2 Inspiratory BiPAP Expiratory BiPAP Crit Value Called To Crit Value Called By Crit Value Read Back Blood Gas Notified Time Sodium Potassium Chloride Carbon Dioxide Anion Gap BUN Creatinine Est GFR ( Amer) Est GFR (Non-Af Amer) POC Glucose (mg/dL) 122 H 91 Random Glucose Calcium Total Bilirubin AST ALT Alkaline Phosphatase Total Protein Albumin Globulin Albumin/Globulin Ratio Blood Type Antibody Screen Antibody Identification Assessment & Plan (1) Complicated urinary tract infection Status: Acute (2) ESRD on hemodialysis Status: Acute (3) Hypothermia Status: Acute (4) Respiratory acidosis Status: Acute (5) Acute hyperkalemia Status: Acute (6) Anemia Status: Acute (7) Arm pain Status: Acute (8) Atelectasis of right lung Status: Acute (9) CHF (congestive heart failure) Status: Acute (10) COPD (chronic obstructive pulmonary disease) Status: Acute - Assessment and Plan (Free Text) Assessment: cont iv antibiotics renal eval await cultures
[2018-03-06] MEDS: Budesonide 0.5 mg/2 ml Inhal Susp UD INH SCH (19:43)
[2018-03-06] MEDS: Albuterol-Ipratrop 3 mg / 0.5 (3 ml) UD INH SCH (19:43)
--- NOTE | 2018-03-06 20:02 | CP.PCM.CON ---
History of Present Illness - History of Present Illness History of Present Illness: pt is seen and examined, full consult is dictated #[id number] 1.esrd 2.copd 3.htn 4.anemia 5.chf 6. pneumonia r/o aspiration pneumonia check urine c/s for hd in am restrict fluid to 1 lit/day c/w iv abx as per ID Past Patient History - Infectious Disease Hx of Infectious Diseases: None - Past Medical History & Family History Past Medical History?: Yes - Past Social History Smoking Status: Never Smoked - CARDIAC Hx Congestive Heart Failure: Yes Hx Hypercholesterolemia: Yes Hx Hypertension: Yes - PULMONARY Hx Chronic Obstructive Pulmonary Disease (COPD): Yes - NEUROLOGICAL HX Cerebrovascular Accident: Yes (L UE AND B/L LE WEAKNESS) - HEENT Hx HEENT Problems: Yes Hx Cataracts: Yes - RENAL Date of Last Dialysis Treatment: 03/05/18 - ENDOCRINE/METABOLIC Hx Diabetes Mellitus Type 2: Yes - HEMATOLOGICAL/ONCOLOGICAL Hx Blood Disorders: Yes Hx Anemia: Yes - INTEGUMENTARY Hx Dermatological Problems: Yes Other/Comment: healed sacral ulcer - MUSCULOSKELETAL/RHEUMATOLOGICAL Hx Falls: Yes - GASTROINTESTINAL Hx Gastrointestinal Disorders: Yes Other/Comment: HX: DYSPHAGIA,UNSPECIFIED - GENITOURINARY/GYNECOLOGICAL Hx Genitourinary Disorders: No - PSYCHIATRIC Hx Substance Use: No - SURGICAL HISTORY Hx Surgeries: Yes Hx Coronary Artery Bypass Graft: Yes - ANESTHESIA Hx Anesthesia: Yes Hx Anesthesia Reactions: No Hx Malignant Hyperthermia: No Meds Allergies/Adverse Reactions: Allergies Allergy/AdvReac Type Severity Reaction Status Date / Time iodine Allergy Intermediate RASH Verified 03/05/18 15:49 clopidogrel [From Plavix] Allergy SHORTNESS Verified 03/05/18 15:49 OF BREATH clopidogrel bisulfate Allergy UNKNOWN Verified 03/05/18 17:14 [From Plavix] penicillin G Allergy SHORTNESS Verified 03/05/18 15:49 OF BREATH Penicillins Allergy UNKNOWN Verified 03/05/18 15:49 IV DYE Allergy unknown Uncoded 03/05/18 15:49 - Medications Medications: Current Medications Albuterol/Ipratropium (Duoneb 3 Mg/0.5 Mg (3 Ml) Ud) 3 ml INH RQ6 [facility] Last Admin: 03/06/18 19:43 Dose: 3 ml Alprazolam (Xanax) 0.25 mg PO PRN PRN PRN Reason: Anxiety Stop: 08/22/18 19:33 Aspirin (Aspirin Chewable) 81 mg PO DAILY [facility] Last Admin: 03/06/18 10:18 Dose: 81 mg Budesonide (Pulmicort Respules) 0.5 mg INH RQ12 [facility] Last Admin: 03/06/18 19:43 Dose: 0.5 mg Docusate Sodium (Colace) 100 mg PO BID [facility] Last Admin: 03/06/18 17:26 Dose: 100 mg Enoxaparin Sodium (Lovenox) 40 mg SC DAILY [facility] Last Admin: 03/06/18 10:18 Dose: 40 mg Ferrous Sulfate (Feosol) 325 mg PO DAILY [facility] Last Admin: 03/06/18 10:17 Dose: 325 mg Furosemide (Lasix) 40 mg PO DAILY [facility] Last Admin: 03/06/18 10:17 Dose: 40 mg Cefepime HCl 1 gm/ Dextrose 50 mls @ 100 mls/hr IVPB Q12H [facility] PRN Reason: Protocol Last Admin: 03/06/18 10:18 Dose: 100 mls/hr Insulin Human Regular (Novolin R) 0 unit SC ACHS [facility] PRN Reason: Protocol Last Admin: 03/06/18 17:26 Dose: Not Given Lactulose (Enulose) 20 gm PO PRN PRN PRN Reason: Constipation Midodrine (Proamatine) 5 mg PO MWF [facility] Last Admin: 03/06/18 10:28 Dose: 5 mg Ondansetron HCl (Zofran Tab) 4 mg PO Q8H PRN PRN Reason: Nausea/Vomiting Polyethylene Glycol (Miralax) 17 gm PO DAILY [facility] Last Admin: 03/06/18 10:17 Dose: 17 gm Rosuvastatin Calcium (Crestor) 20 mg PO [facility] Sevelamer Carbonate (Renvela) 800 mg PO TID [facility] Last Admin: 03/06/18 17:26 Dose: 800 mg Vitamin B Complex/Vit C/Folic Acid (Nephro-Renaldo) 1 tab PO DAILY [facility] Last Admin: 03/06/18 10:18 Dose: 1 tab Results - Vital Signs Recent Vital Signs: Last Vital Signs Temp 98.4 F 03/06/18 16:35 Pulse 80 03/06/18 19:45 Resp 18 03/06/18 16:35 BP 104/61 03/06/18 16:35 Pulse Ox 99 03/06/18 16:35 - Labs Result Diagrams: 03/06/18 11:16 03/06/18 11:16 Labs: Laboratory Results - last 24 hr 03/05/18 03/06/18 03/06/18 16:09 06:24 11:16 WBC 4.9 RBC 2.38 L Hgb 7.8 L Hct 24.6 L MCV 103.5 H MCH 32.7 H MCHC 31.6 L RDW 17.1 H Plt Count 137 MPV 8.4 Neut % (Auto) 67.7 Lymph % (Auto) 14.8 L [place] % (Auto) 9.7 Eos % (Auto) 7.0 H Baso % (Auto) 0.8 Neut # (Auto) 3.3 Lymph # (Auto) 0.7 L [place] # (Auto) 0.5 Eos # (Auto) 0.3 Baso # (Auto) 0.0 Sodium Potassium Chloride Carbon Dioxide Anion Gap BUN Creatinine Est GFR ( Amer) Est GFR (Non-Af Amer) POC Glucose (mg/dL) 76 Random Glucose Calcium Total Bilirubin AST ALT Alkaline Phosphatase Total Protein Albumin Globulin Albumin/Globulin Ratio Antibody Identification Non Specific Cold Antibody 03/06/18 03/06/18 03/06/18 11:16 11:45 16:56 WBC RBC Hgb Hct MCV MCH MCHC RDW Plt Count MPV Neut % (Auto) Lymph % (Auto) [place] % (Auto) Eos % (Auto) Baso % (Auto) Neut # (Auto) Lymph # (Auto) [place] # (Auto) Eos # (Auto) Baso # (Auto) Sodium 140 Potassium 4.9 Chloride 100 Carbon Dioxide 31 H Anion Gap 14 BUN 16 Creatinine 3.0 H Est GFR ( Amer) 26 Est GFR (Non-Af Amer) 21 POC Glucose (mg/dL) 122 H 91 Random Glucose 92 Calcium 8.5 L Total Bilirubin 0.4 AST 23 ALT 24 Alkaline Phosphatase 118 Total Protein 6.6 Albumin 3.4 L Globulin 3.2 Albumin/Globulin Ratio 1.1 Antibody Identification
[2018-03-07] MEDS: Albuterol-Ipratrop 3 mg / 0.5 (3 ml) UD INH SCH ×4 (03:29→19:38)
[2018-03-07 06:22] LABS: BASO # 0.1 K/uL (0.0-0.2); BASO % 1.1 % (0.0-2.0); EOS # 0.8 K/uL (0.0-0.7); EOS % 15.4 % (0.0-4.0); MEAN CELL VOLUME 103.6 fL (80.0-94.0); MEAN CORPUSCULAR HEMOGLOBIN 32.3 pg (27.0-31.0); MEAN CORPUSCULAR HGB CONC 31.2 g/dL (33.0-37.0); MONO # 0.5 K/uL (0.0-0.8); MONO % 9.7 % (0.0-10.0); NEUT # 2.7 K/uL (1.8-7.0); NEUT % 53.8 % (50.0-75.0); NRBC % 0.1 % (0.0-2.0); RBC 2.48 Mil/uL (4.40-5.90); RED CELL DISTRIBUTION WIDTH 16.8 % (11.5-14.5)
[2018-03-07 06:52] LABS: ALB/GLOB RATIO 1.1 (1.0-2.1); ALBUMIN 3.4 g/dL (3.5-5.0); CALCIUM 8.3 mg/dl (8.6-10.4)
[2018-03-07] MEDS: Budesonide 0.5 mg/2 ml Inhal Susp UD INH SCH ×2 (07:15→19:38)
--- NOTE | 2018-03-07 08:05 | HP ---
Copied To: Carlos Andrews DO Attending MD: Carlos Andrews DO HISTORY OF PRESENT ILLNESS: I know him very well from [facility] where he is a permanent resident. He was on dialysis yesterday. He became unresponsive. They started CPR. He was taken off the dialysis machine. Fistula started bleeding and apparently out of control and they sent him here to [facility] ER with altered mental status. PAST MEDICAL AND SURGICAL HISTORY: He has a history of anemia; asthma; CHF; COPD; CVA affecting the left side; major depression disorder; single episode, unspecified; hypertension; high cholesterolemia; peripheral edema; end-stage renal disease, on hemodialysis; chronic kidney disease; sleep apnea; he had CABG, endoscopy, pacemaker, arteriovenous access; duodenum, sigmoid colon. He had foreign body removed. He has a dual chamber pacemaker. FAMILY HISTORY: Hypertension in the family. SOCIAL HISTORY: No alcohol. No drugs. No smoking. REVIEW OF SYSTEMS: Could not do when he came in, he could not respond, but right now he is feeling back to his old self, although he did have some V-tach last night. He is on BiPAP. He does not like it. He will be on oxygen 2 L. No apparent sore throat. No acute vision or hearing changes. No chest pain or palpitations at this time. No shortness of breath or cough at this time. No abdominal pain. No nausea, vomiting, constipation, or diarrhea. Left side is weak. No edema at this time. PHYSICAL EXAMINATION: VITAL SIGNS: Temp 95.6, 80 pulse, 19 respiratory rate, 126/52 blood pressure, 99% O2 on room air. GENERAL: He is chronically ill in bed. He is alert at this time, took the BiPAP off to talk to him. SKIN: His skin is dry. No apparent rashes or ulcers, although in the back, he does have some reddish areas. HEENT: Head is atraumatic and normocephalic. Extraocular muscles are intact. Pupil equal and reactive to light. Throat is dry. HEART: Regular rate. He was tachy and in V-tach last night. LUNGS: He has got decreased breath sounds bilaterally. For the most part, clear. ABDOMEN: Soft and nontender. Positive bowel sounds. No guarding, rebound, or CVA tenderness. GENITOURINARY: He has purulent discharge from his penis. He was having UTI clinically. EXTREMITIES: He has no edema of extremities. He is on dialysis. NEUROLOGIC: The speech is normal for him, which is a little bit slurred at its baseline. NECK: Thyroid midline. No palpable appreciable lymphadenopathy. LABORATORY DATA: At this time, he has 6.9 white count; 8.3 hemoglobin; 25.8 hematocrit; 131 platelets; that is kind of its baseline. He has a normal EKG. Right bundle-branch block. He had V-tach last night. He has cardiomegaly, multifocal infiltrates and bilateral pleural effusions with congestive heart failure, possible pneumonia. He had a CAT scan of the brain showing no evidence of acute intracranial hemorrhage. He is on BiPAP. On other labs, he has 139 sodium, potassium 4, BUN is 11, creatinine is 2, GFR is 34 on dialysis. Sugar is 119. Hemoglobin A1c is 4. Calcium 7.9. Total bili is 0.4, AST is 19, ALT is 29, alk phos 121, troponin I less than 0.012, total protein 7.8, albumin is 3, globulin 2.9. Triglycerides are 91, cholesterol is 65, LDL is less than 30, HDL 35. Urine had many bacteria, many white cells, moderate leukocytes, positive nitrites, he has . ASSESSMENT AND PLAN: We are going to have consults with Infectious Disease, Renal, Pulmonary, Cardiology. We will begin cefepime at this time. We will check his labs tomorrow. He will be on renal diet. He will be on oxygen and bilevel positive airway pressure as needed. He is here for hypercapnic respiratory failure, end-stage renal disease, ventricular tachycardia last night, urinary tract infection, and possible pneumonia on top of the congestive heart failure, bilateral infiltrates. Carlos Andrews DO [facility]
[2018-03-07] MEDS: (Novolin R) Insulin Human Regular 100 units/ml vial SC SCH ×4 (08:16→21:31)
--- NOTE | 2018-03-07 08:51 | CT ---
Date of service: 03/06/2018 PROCEDURE: CT HEAD WITHOUT CONTRAST. HISTORY: hx of stroke, pacemaker, examine progression COMPARISON: None available. TECHNIQUE: Axial computed tomography images were obtained through the head/brain without intravenous contrast. Radiation dose: Total exam DLP = 886 mGy-cm. This CT exam was performed using one or more of the following dose reduction techniques: Automated exposure control, adjustment of the mA and/or kV according to patient size, and/or use of iterative reconstruction technique. FINDINGS: HEMORRHAGE: No intracranial hemorrhage. BRAIN: No mass effect or edema. Scattered focal lucencies in the subcortical and periventricular white matter suggestive for chronic microvascular ischemic change. Mild to moderate atrophy. VENTRICLES: Unremarkable. No hydrocephalus. CALVARIUM: Unremarkable. PARANASAL SINUSES: Scattered mild mucosal thickening. Small amount of fluid/ mucous within the left sphenoid sinus. MASTOID AIR CELLS: Unremarkable as visualized. No inflammatory changes. OTHER FINDINGS: Suboptimal positioning. Mild motion artifact. Atherosclerotic disease of the intracranial and extracranial arteries. IMPRESSION: Chronic microvascular ischemic changes. Sinus mucosal disease. If focal neurologic deficit persists, consider correlation with MRI. These findings were preliminarily reported at 10:10 p.m. on 03/06/[address] Kel Zarate from [facility].
[2018-03-07] MEDS ORDERED: Epoetin Alfa Dialysis 40000 UNIT/ml Inj IV SCH (10:00)
[2018-03-07] MEDS: Ferric Sodium Gluconat Complex 62.5 mg/5 ml Vial IVPB SCH (11:41)
[2018-03-07] MEDS ORDERED: MethylPREDNISolone 40 mg Vial IVP ONE (12:44)
--- NOTE | 2018-03-07 12:53 | PCM.RRT ---
<Cal Butcher - Last Filed: 03/07/18 13:28> LOCAL ANNOUNCER Nurses Assessment - Ventilator Settings FIO2 (% Oxygen): 40 I.Reason for LOCAL ANNOUNCER - A) Acute Change in Patient: (Select all that apply): Chest Pain - Neurological Status (Select all that apply): Alert, Responsive, Oriented, Verbal, Follows Commands - Constitutional Appears: Chronically Ill - Head Head Exam: ATRAUMATIC, NORMOCEPHALIC - Eyes Eye Exam: Normal appearance - Respiratory Exam Respiratory Exam: Chest Wall Tenderness (extremely tender to palpationon left side of sternum ), Decreased Breath Sounds (bases b/l), NORMAL BREATHING PATTERN. absent: Accessory Muscle Use, Rales, Rhonchi, Wheezes, Respiratory Distress - Cardiovascular Exam Cardiovascular Exam: REGULAR RHYTHM, +S1, +S2 - GI/Abdominal Exam GI & Abdominal Exam: Soft. absent: Distended, Firm, Guarding, Rigid, Tenderness - Neurological Exam Neurological Exam: Alert, Awake, Oriented x3 - Extremities Exam Extremities Exam: absent: Calf Tenderness Plan - Assessment of Findings&Treatment Plan While patient was receiving dialysis, he started to complain of chest pain. LOCAL ANNOUNCER was called. Upon arrival, patient is awake and alert while receiving dialysis. He states that his chest pain is sub-sternal and just started. The chest pain is worsened when he coughs. Patient has a well-healed sternotomy scar, for which patient reports a cardiac bypass in 1985. Vitals are stable. Patient is speaking in full sentences and is cognitively at baseline. Orders: * CHRISTOPHER - Trop 0.0200 negative * EKG - Ventricularly paced at 80bpm - no acute changes; Dr. Lucas called and alerted of patient's chest pain. * Aspirin 325mg PO x 1 * Solumedrol 40mg IVP x 1 * Toradol 15mg IVP x 1 * CXR - ordered, to be taken upon completion of dialysis Medications given. Patient states that his chest pain is improving. He is starting to feel better. Will f/u CXR once taken after dialysis. <Clare Nguyen V - Last Filed: 03/07/18 17:32> Attending/Attestation - Attestation I have personally seen and examined this patient.: Yes I have fully participated in the care of the patient.: Yes Notes (Text): Patient seen, examined at the LOCAL ANNOUNCER. Patient noted he has pleuritic chest pain, pain on palpation over the chest ilicted. Patient noted prior chest xray showed Fluid overload from night before. Patient receiving 1 unit of PRBC at bedside. Patient has completed 1 hour into dialysis. EKG noted ventricular paced at bedside. Patient received Aspirin 325 mg PO X1, Toradol 15mg IVX1, and Solumderol 40mg IVP X1. Chest pain resolved. Troponin negative I spoke with patient's cardiology, Dr Lucas informed of events..
--- NOTE | 2018-03-07 13:12 | PN ---
Copied To: Carlos Andrews DO Attending MD: Carlos Andrews DO DATE: 03/07/2018 HISTORY OF PRESENT ILLNESS: I saw him resting comfortably in bed this morning. He is very hungry. He is getting pudding now. He wants physical therapy. He is on aspirin, cefepime, Colace, Crestor, DuoNebs, Feosol, Ferralet, Lasix, Lovenox, MiraLAX, Nephro-Renaldo, Novolin, sulfate, Pulmicort, Renvela, Xanax, Zemplar, and Zofran PHYSICAL EXAMINATION: GENERAL: He is resting comfortably in bed. He is alert. He wants physical therapy. He wants to eat. He came to the office today. He is on IV antibiotics. He can get transfused every 2 hourly for his anemia. He wants to go back to [facility]. I told him that will happen when he clears his infection. VITAL SIGNS: 98 temp, 79 pulse, 96/50 blood pressure, 20 respiratory rate, 92% O2 saturation on room air. HEENT: His head is atraumatic and normocephalic. HEART: Regular rate. LUNGS: Decreased breath sounds, but clear. ABDOMEN: Soft, obese. EXTREMITIES: No edema. Left-sided weakness. LABORATORY DATA: He has a 4.9 white count, 7.8 hemoglobin, 24.6 hematocrit, with 137 platelets. He has 140 sodium, potassium 4.9, BUN 16, creatinine is 3, GFR is 21, sugar is 100, calcium is 8.5, total bilirubin is 0.4, AST is 23, ALT is 24, alk phos 118, total protein 6.6. ASSESSMENT AND PLAN: He has a bad urosepsis. He is being seen by Renal, Infectious Disease, Neurology. Continue antibiotics, dialysis. Acute urinary tract infection, which is complicated. Continue aggressive treatment and care. We will check his labs tomorrow. Order physical therapy and hopefully he will improve with dialysis. Also going to be transfused one unit of blood at dialysis today. Answered many questions from him. Carlos Andrews DO [facility] # [id number] HUNTER
--- NOTE | 2018-03-07 13:17 | CON ---
Copied To: Martin Ortiz MD Attending MD: Martin Ortiz MD DATE: 03/07/2018 RENAL CONSULTATION LOCATION: The patient is located in room 668, bed A. REQUESTED BY: Carlos Andrews DO. REASON FOR RENAL CONSULTATION: End-stage renal disease, continuation of hemodialysis. HISTORY OF PRESENT ILLNESS: The patient is a 67-year-old elderly [place] male with a past medical history significant for longstanding hypertension, diabetes, coronary artery disease, status post CABG, CVA with left-sided weakness, end-stage renal disease bedridden for long-time, resident of a half-way, status post pacemaker placement, anemia, multiple admissions to the hospital COPD with CO2 retention, who was receiving dialysis yesterday, apparently he became unresponsive and dialysis center staff apparently started CPR, and after taking off from the dialysis machine, the patient started having bleeding from the AV fistula site and bleeding controlled with pressure dressing. EMS found the patient to be drowsy, but responsive. Subsequently, the patient was transferred to [facility]. The patient is on BiPAP at this time, not in distress. No chest pain or palpitation. No fever. No cough. PAST MEDICAL HISTORY: Significant for longstanding hypertension, diabetes, coronary artery disease status post CABG, hyperlipidemia, end-stage renal disease, CVA with left-sided hemiparesis and bedridden. PAST SURGICAL HISTORY: Status post left upper extremity AV fistula and also status post pacemaker placement. ALLERGIES: ALLERGIC TO IODINE, PLAVIX, PENICILLIN, AND IV DYE. SOCIAL HISTORY: Denies any smoking, alcohol, or drugs. PERSONAL HISTORY: He is single. No children. FAMILY HISTORY: Not significant. He has a very supportive niece. MEDIATIONS: His current medications as follows: Aspirin 81 mg daily, cefepime 1 g every 12 hours, Colace 100 mg p.o. b.i.d., Crestor 10 mg at bedtime, DuoNeb inhaler and lactulose 20 g p.o. daily, ferrous sulfate 325 mg p.o. daily, and Lasix 40 mg p.o. daily, Lovenox 30 mg subcu daily, MiraLax 17 g p.o. daily Nephro-Renaldo one tablet daily, Novolin R for sliding scale, midodrine 5 mg 3 times every Sunday, Sunday, and Sunday and Pulmicort, Renvela, Xanax, and Zofran. REVIEW OF SYSTEMS: Significant for unresponsiveness, questionable cardiac arrest, and bleeding from the AV fistula site. All other review of systems are reviewed and are negative, other than mentioned. PHYSICAL EXAMINATION: GENERAL: The patient is a 67-year-old elderly [place] male, moderately-built, moderately nourished, not in acute distress. VITAL SIGNS: As follows, blood pressure 104/61, pulse 80 and respirations 18, temperature 98.4, saturation 97.7% on 3 liters on nasal cannula. Height 5 feet and 6 inches, weight is 230 pounds. HEENT: Pupils normal and reactive to light and accommodation. Conjunctivae pink. Sclerae anicteric. Tongue is moist and trachea is midline. LUNGS: Symmetric on both sides. Bilateral breath sounds present. Occasional basal crackles present. CVS: [place] at the fifth intercostal space, midclavicular area. S1 and S2 audible. No murmur or gallop. ABDOMEN: Normal in appearance, soft, tympanitic. No guarding. No hepatosplenomegaly. MANAGER ADOBE: The patient is alert, awake, oriented x3. Sensory system is grossly within normal limits. Motor system, the patient has a left-sided weakness power 1 to 2 in both upper and lower extremities. EXTREMITIES: No cyanosis. No clubbing. The patient has 2+ edema in both lower extremities. LABORATORY DATA: Lab data include as follows, as of 03/05/2018, WBC 6.9, hemoglobin 8.3, hematocrit is 25.8, platelets 131,000. PT 12.2, PTT 44. ABG: pH 7.29, pCO2 74, and pO2 79, and bicarb 30.9. FiO2 40% on BiPAP settings. Inspiration is 16 and expiration is 5. Urinalysis: Yellow turbid, pH 6.5, specific 1.030, protein more than 300, glucose 100, ketones 15, blood positive, nitrites positive, bilirubin small, urobilinogen 1, leukocyte esterase moderate, wbc 32,184, rbc 3,845, and bacteria many. Sodium 139, potassium is 4, chloride 100, CO2 of 30, BUN 11, creatinine 2, and glucose 119, hemoglobin A1c 4, calcium 7.9. Total bili 0.4. His repeat labs as of 03/06/2018, sodium 140, potassium 4.9, chloride 100, CO2 of 30, BUN 16, creatinine 3, and glucose of 122, calcium 8.5. Total bili 0.4, AST 23, ALT 24, alkaline phos of 118, total protein 6.6, and albumin 3.4. Other laboratory data, WBC 4.9, hemoglobin 7.8, hematocrit is 24.6, platelets 137,000. Other reports, chest x-ray as of 03/05/2018 cardiomegaly multifocal infiltrates and bilateral pleural effusions suggestive of congestive heart failure. No significant change. A CT of the head as of 03/05/2018, no evidence of acute intracranial hemorrhage, territorial infarction with midline shift. No significant interval change noted in the brain parenchymal since the previous exam. IMPRESSION AND PLAN: In summary, the patient is 67-year-old elderly [place] male with a history of longstanding hypertension, diabetes, coronary artery disease, status post CABG, CVA with left-sided weakness, COPD with CO2 retention, and end-stage renal disease, anemia was admitted with unresponsiveness and questionable cardiac arrest, status post CPR, and from EMS found the patient was drowsy and responsive, and a ABG showed elevated pCO2. 1. End-stage renal disease. Continue hemodialysis three times a week Sunday, , and Sunday. 2. Anemia secondary to end-stage renal disease, rule out secondary to recent bleeding, rule out iron-deficiency anemia and rule out GI loss. 3. Hypertension. 4. Congestive heart failure. We will schedule for hemodialysis in a.m. and restrict fluids to 1 liter and check iron, TIBC, ferritin level. We will add Epogen three times a week during hemodialysis 20,000 units, and also Zemplar 2 mcg three times a week and continue BiPAP, COPD with CO2 retention. Overall, prognosis is guarded. We will follow with you. Thank you for allowing me to participate in your patient's care. Martin Ortiz MD
[2018-03-07 13:27] LABS: CK-MB 2.15 ng/mL (0.0-3.38); TROPONIN I 0.02 ng/mL (0.00-0.120)
[2018-03-07] MEDS: Epoetin Alfa Dialysis 20000 UNIT/ML Inj IV SCH (13:37)
[2018-03-07] MEDS: Paricalcitol 2 mcg/ml Inj IV SCH (13:38)
--- NOTE | 2018-03-07 15:40 | RAD ---
Date of service: 03/07/2018 HISTORY: chest pain COMPARISON: 05/05/2018 FINDINGS: LUNGS: Bibasilar compressive atelectasis OS small bilateral pleural effusions inferred -right greater than left. Coalescent airspace opacities mid right lung zone coalescent pulmonary edema and/or patchy coalescent pulmonary infiltrates considerations. The extent of layering bilateral pleural effusions is believe slightly less now than before. PLEURA: As above. Regarding infusions. No pneumothorax seen CARDIOVASCULAR: Cardiomegaly and pulmonary venous congestion similar midline sternotomy, dual lead pacemaker device. Extrinsic small cardiac monitoring device projecting over the left heart. OSSEOUS STRUCTURES: No significant abnormalities. VISUALIZED UPPER ABDOMEN: Normal. OTHER FINDINGS: None. IMPRESSION: Slight decreased bilateral pleural effusions. Residual pleural effusions persist. Bibasilar compressive atelectasis inferred. Mixed pathology: Cardiomegaly pulmonary venous congestion. Coalescent pulmonary edema asymmetrical mid right lung zone and/or coalescent infiltrates here. Other findings as above.
[2018-03-07] MEDS: POLYETHYLENE GLYCOL 3350 17 GM/Dose PACKET PO SCH (16:25)
[2018-03-07] MEDS: Enoxaparin 30 mg Syringe SC SCH (16:25)
[2018-03-07] MEDS: Multivitamin Vitamin B Complex (Nephro-Vite) Tab PO SCH (16:26)
--- NOTE | 2018-03-07 17:34 | CP.PCM.PN ---
Subjective - Date & Time of Evaluation Date of Evaluation: 03/07/18 Time of Evaluation: 17:33 - Subjective Subjective: issues with left arm access ambiguous hx of dye reaction dw opd HD center was pre treated - no subsequent issues. protocol ordered Objective - Vital Signs/Intake and Output Vital Signs (last 24 hours): Temp Pulse Resp BP Pulse Ox 97.6 F 80 18 154/54 H 100 03/07/18 15:00 03/07/18 17:18 03/07/18 17:18 03/07/18 17:18 03/07/18 15:00 Intake and Output: 03/07/18 03/07/18 06:59 18:59 Intake Total 360 355 Balance 360 355 - Medications Medications: Current Medications Albuterol/Ipratropium (Duoneb 3 Mg/0.5 Mg (3 Ml) Ud) 3 ml INH RQ6 [facility] Last Admin: 03/07/18 07:15 Dose: 3 ml Alprazolam (Xanax) 0.25 mg PO Q6H PRN PRN Reason: Anxiety Last Admin: 03/07/18 06:24 Dose: 0.25 mg Aspirin (Aspirin Chewable) 81 mg PO DAILY [facility] Last Admin: 03/07/18 16:25 Dose: Not Given Budesonide (Pulmicort Respules) 0.5 mg INH RQ12 [facility] Last Admin: 03/07/18 07:15 Dose: 0.5 mg Docusate Sodium (Colace) 100 mg PO BID [facility] Last Admin: 03/07/18 16:25 Dose: Not Given Enoxaparin Sodium (Lovenox) 30 mg SC DAILY [facility] Last Admin: 03/07/18 16:25 Dose: Not Given Epoetin Mario (Procrit) 20,000 unit IV TTS [facility] Last Admin: 03/07/18 13:37 Dose: 20,000 unit Ferric Sodium Gluconate Complex (Ferrlecit) 125 mg IVPB TTS [facility] Stop: 03/15/18 10:01 Last Admin: 03/07/18 11:41 Dose: 125 mg Ferrous Sulfate (Feosol) 325 mg PO DAILY [facility] Last Admin: 03/07/18 16:25 Dose: Not Given Furosemide (Lasix) 40 mg PO DAILY [facility] Last Admin: 03/07/18 16:25 Dose: Not Given Cefepime HCl 1 gm/ Dextrose 50 mls @ 100 mls/hr IVPB Q12H [facility] PRN Reason: Protocol Last Admin: 03/07/18 08:56 Dose: 100 mls/hr Insulin Human Regular (Novolin R) 0 unit SC ACHS [facility] PRN Reason: Protocol Last Admin: 03/07/18 17:29 Dose: Not Given Lactulose (Enulose) 20 gm PO DAILY PRN PRN Reason: FOR CONSTIPATION Midodrine (Proamatine) 5 mg PO MWF [facility] Last Admin: 03/06/18 10:28 Dose: 5 mg Ondansetron HCl (Zofran Tab) 4 mg PO Q8H PRN PRN Reason: Nausea/Vomiting Paricalcitol (Zemplar) 2 mcg IV TTS [facility] Last Admin: 03/07/18 13:38 Dose: 2 mcg Polyethylene Glycol (Miralax) 17 gm PO DAILY [facility] Last Admin: 03/07/18 16:25 Dose: Not Given Rosuvastatin Calcium (Crestor) 10 mg PO HS [facility] Last Admin: 03/06/18 21:23 Dose: 10 mg Sevelamer Carbonate (Renvela) 800 mg PO TID [facility] Last Admin: 03/07/18 16:26 Dose: Not Given Vitamin B Complex/Vit C/Folic Acid (Nephro-Renaldo) 1 tab PO DAILY [facility] Last Admin: 03/07/18 16:26 Dose: Not Given - Labs Labs: 03/07/18 06:13 03/07/18 06:13 PT 12.2 SECONDS (9.7-12.2) 03/05/18 16:08 INR 1.1 03/05/18 16:08 APTT 44 SECONDS (21-34) H 03/05/18 16:08
--- NOTE | 2018-03-07 17:48 | CP.PCM.CON ---
History of Present Illness - History of Present Illness History of Present Illness: VASCULAR SURGERY CONSULT NOTE FOR DR. ALLEN 67 year old male w/ PMHx of CVA, Anemia, Asthma, CHF, COPD, Depression, HTN, Hypercholesterolemia, Hyperlipidemia, ESRD on hemodialysis, presented to ED following complications from dialysis. During dialysis, patient became unresponsive and was brought to the ED on 03/05. When the pt was receiving dialysis, he started to complain of chest pain. TELECOMMUNICATIONS CONSULTANT was called. Upon arrival, patient is awake and alert while receiving dialysis. He states that his chest pain is sub-sternal and just started. The chest pain is worsened when he coughs. Patient has a well-healed sternotomy scar, for which patient reports a cardiac bypass in 1985. Vitals are stable. Patient is speaking in full sentences and is cognitively at baseline. The Chest pain resolved. Troponin negative. Vascular surgery consulted due to difficulty in cannulating shunt at arterial site. PMHx: stroke w/ residual focal weakness in left upper & b/l lower extremities ( L > R), Anemia, Asthma, CHF, COPD, Depression, HTN, Hypercholesterolemia, Hyperlipidemia, Peripheral Edema, End Stage Renal Disease (on hemodialysis), Chronic Kidney Disease, Sleep Apnea Meds: See List PSHx: CABG, Endoscopy, Pacemaker, left arm brachial axillary hybrid AV graft on by Dr. Ramon Allergies: Iodine, Clopidogrel, penicillin, IV dye Social: Denies drugs/ ETOH/ tobacco use Review of Systems - Review of Systems All systems: reviewed and no additional remarkable complaints except (as per HPI ) Past Patient History - Infectious Disease Hx of Infectious Diseases: None - Past Medical History & Family History Past Medical History?: Yes - Past Social History Smoking Status: Never Smoked - CARDIAC Hx Congestive Heart Failure: Yes Hx Hypercholesterolemia: Yes Hx Hypertension: Yes - PULMONARY Hx Chronic Obstructive Pulmonary Disease (COPD): Yes - NEUROLOGICAL HX Cerebrovascular Accident: Yes (L UE AND B/L LE WEAKNESS) - HEENT Hx HEENT Problems: Yes Hx Cataracts: Yes - RENAL Date of Last Dialysis Treatment: 03/05/18 - ENDOCRINE/METABOLIC Hx Diabetes Mellitus Type 2: Yes - HEMATOLOGICAL/ONCOLOGICAL Hx Blood Disorders: Yes Hx Anemia: Yes - INTEGUMENTARY Hx Dermatological Problems: Yes Other/Comment: healed sacral ulcer - MUSCULOSKELETAL/RHEUMATOLOGICAL Hx Falls: Yes - GASTROINTESTINAL Hx Gastrointestinal Disorders: Yes Other/Comment: HX: DYSPHAGIA,UNSPECIFIED - GENITOURINARY/GYNECOLOGICAL Hx Genitourinary Disorders: No - PSYCHIATRIC Hx Substance Use: No - SURGICAL HISTORY Hx Surgeries: Yes Hx Coronary Artery Bypass Graft: Yes - ANESTHESIA Hx Anesthesia: Yes Hx Anesthesia Reactions: No Hx Malignant Hyperthermia: No Meds Allergies/Adverse Reactions: Allergies Allergy/AdvReac Type Severity Reaction Status Date / Time iodine Allergy Intermediate RASH Verified 03/05/18 15:49 clopidogrel [From Plavix] Allergy SHORTNESS Verified 03/05/18 15:49 OF BREATH clopidogrel bisulfate Allergy UNKNOWN Verified 03/05/18 17:14 [From Plavix] penicillin G Allergy SHORTNESS Verified 03/05/18 15:49 OF BREATH Penicillins Allergy UNKNOWN Verified 03/05/18 15:49 IV DYE Allergy unknown Uncoded 03/05/18 15:49 - Medications Medications: Current Medications Albuterol/Ipratropium (Duoneb 3 Mg/0.5 Mg (3 Ml) Ud) 3 ml INH RQ6 [facility] Last Admin: 03/07/18 07:15 Dose: 3 ml Alprazolam (Xanax) 0.25 mg PO Q6H PRN PRN Reason: Anxiety Last Admin: 03/07/18 06:24 Dose: 0.25 mg Aspirin (Aspirin Chewable) 81 mg PO DAILY [facility] Last Admin: 03/07/18 16:25 Dose: Not Given Budesonide (Pulmicort Respules) 0.5 mg INH RQ12 [facility] Last Admin: 03/07/18 07:15 Dose: 0.5 mg Diphenhydramine HCl (Benadryl) 50 mg PO Q8 ONE Stop: 03/08/18 11:01 Docusate Sodium (Colace) 100 mg PO BID [facility] Last Admin: 03/07/18 16:25 Dose: Not Given Enoxaparin Sodium (Lovenox) 30 mg SC DAILY [facility] Last Admin: 03/07/18 16:25 Dose: Not Given Epoetin Mario (Procrit) 20,000 unit IV TTS [facility] Last Admin: 03/07/18 13:37 Dose: 20,000 unit Ferric Sodium Gluconate Complex (Ferrlecit) 125 mg IVPB TTS [facility] Stop: 03/15/18 10:01 Last Admin: 03/07/18 11:41 Dose: 125 mg Ferrous Sulfate (Feosol) 325 mg PO DAILY [facility] Last Admin: 03/07/18 16:25 Dose: Not Given Furosemide (Lasix) 40 mg PO DAILY [facility] Last Admin: 03/07/18 16:25 Dose: Not Given Cefepime HCl 1 gm/ Dextrose 50 mls @ 100 mls/hr IVPB Q12H [facility] PRN Reason: Protocol Last Admin: 03/07/18 08:56 Dose: 100 mls/hr Insulin Human Regular (Novolin R) 0 unit SC ACHS [facility] PRN Reason: Protocol Last Admin: 03/07/18 17:29 Dose: Not Given Lactulose (Enulose) 20 gm PO DAILY PRN PRN Reason: FOR CONSTIPATION Midodrine (Proamatine) 5 mg PO MWF [facility] Last Admin: 03/06/18 10:28 Dose: 5 mg Ondansetron HCl (Zofran Tab) 4 mg PO Q8H PRN PRN Reason: Nausea/Vomiting Paricalcitol (Zemplar) 2 mcg IV TTS [facility] Last Admin: 03/07/18 13:38 Dose: 2 mcg Polyethylene Glycol (Miralax) 17 gm PO DAILY [facility] Last Admin: 03/07/18 16:25 Dose: Not Given Prednisone (Prednisone Tab) 50 mg PO ONCE ONE Stop: 03/07/18 23:01 Prednisone (Prednisone Tab) 50 mg PO ONCE ONE Stop: 03/08/18 05:01 Prednisone (Prednisone Tab) 50 mg PO ONCE ONE Stop: 03/08/18 11:01 Rosuvastatin Calcium (Crestor) 10 mg PO HS [facility] Last Admin: 03/06/18 21:23 Dose: 10 mg Sevelamer Carbonate (Renvela) 800 mg PO TID [facility] Last Admin: 03/07/18 16:26 Dose: Not Given Vitamin B Complex/Vit C/Folic Acid (Nephro-Renaldo) 1 tab PO DAILY [facility] Last Admin: 03/07/18 16:26 Dose: Not Given Physical Exam - Constitutional Appears: Non-toxic, No Acute Distress - Head Exam Head Exam: ATRAUMATIC - Respiratory Exam Respiratory Exam: NORMAL BREATHING PATTERN. absent: Respiratory Distress - Cardiovascular Exam Cardiovascular Exam: +S1, +S2 - GI/Abdominal Exam GI & Abdominal Exam: Soft. absent: Tenderness - Extremities Exam Additional comments: Left hybrid graft with thrill Palpable radial pulse Results - Vital Signs Recent Vital Signs: Last Vital Signs Temp 97.6 F 03/07/18 15:00 Pulse 80 08/16/18 17:18 Resp 18 03/07/18 17:18 BP 154/54 H 03/07/18 17:18 Pulse Ox 100 03/07/18 15:00 - Labs Result Diagrams: 03/07/18 06:13 03/07/18 06:13 Labs: Laboratory Results - last 24 hr 03/05/18 03/06/18 03/07/18 16:09 21:31 06:13 WBC 5.0 RBC 2.48 L Hgb 8.0 L Hct 25.7 L MCV 103.6 H MCH 32.3 H MCHC 31.2 L RDW 16.8 H Plt Count 149 MPV 8.0 Neut % (Auto) 53.8 Lymph % (Auto) 20.0 Graves % (Auto) 9.7 Eos % (Auto) 15.4 H Baso % (Auto) 1.1 Neut # (Auto) 2.7 Lymph # (Auto) 1.0 Graves # (Auto) 0.5 Eos # (Auto) 0.8 H Baso # (Auto) 0.1 Sodium Potassium Chloride Carbon Dioxide Anion Gap BUN Creatinine Est GFR ( Amer) Est GFR (Non-Af Amer) POC Glucose (mg/dL) 100 Random Glucose Calcium Total Bilirubin AST ALT Alkaline Phosphatase Total Creatine Kinase CK-MB (Mass) Troponin I Total Protein Albumin Globulin Albumin/Globulin Ratio Blood Type B POSITIVE Antibody Screen Positive Antibody Identification Non Specific Cold Antibody 03/07/18 03/07/18 03/07/18 06:13 06:25 11:25 WBC RBC Hgb Hct MCV MCH MCHC RDW Plt Count MPV Neut % (Auto) Lymph % (Auto) [place] % (Auto) Eos % (Auto) Baso % (Auto) Neut # (Auto) Lymph # (Auto) Graves # (Auto) Eos # (Auto) Baso # (Auto) Sodium 141 Potassium 5.1 Chloride 99 Carbon Dioxide 27 Anion Gap 20 BUN 22 H Creatinine 3.8 H Est GFR ( Amer) 19 Est GFR (Non-Af Amer) 16 POC Glucose (mg/dL) 113 H 121 H Random Glucose 114 H Calcium 8.3 L Total Bilirubin 0.4 AST 27 ALT 25 Alkaline Phosphatase 114 Total Creatine Kinase CK-MB (Mass) Troponin I Total Protein 6.6 Albumin 3.4 L Globulin 3.2 Albumin/Globulin Ratio 1.1 Blood Type Antibody Screen Antibody Identification 03/07/18 03/07/18 12:57 16:27 WBC RBC Hgb Hct MCV MCH MCHC RDW Plt Count MPV Neut % (Auto) Lymph % (Auto) [place] % (Auto) Eos % (Auto) Baso % (Auto) Neut # (Auto) Lymph # (Auto) Graves # (Auto) Eos # (Auto) Baso # (Auto) Sodium Potassium Chloride Carbon Dioxide Anion Gap BUN Creatinine Est GFR ( Amer) Est GFR (Non-Af Amer) POC Glucose (mg/dL) 121 H Random Glucose Calcium Total Bilirubin AST ALT Alkaline Phosphatase Total Creatine Kinase 44 L CK-MB (Mass) 2.15 Troponin I 0.0200 Total Protein Albumin Globulin Albumin/Globulin Ratio Blood Type Antibody Screen Antibody Identification Assessment & Plan - Assessment and Plan (Free Text) Assessment: 67 year old male w/ ESRD on hemodialysis via left arm hybrid graft - Shuntogram tomorrow - Prednisone and benadryl as per [place] protocol for pt's contrast allergy - Discussed plan with Dr. Carol Oglesby PGY-4
--- NOTE | 2018-03-07 20:15 | CP.PCM.PN ---
Subjective - Date & Time of Evaluation Date of Evaluation: 03/07/18 Time of Evaluation: 20:13 - Subjective Subjective: pt is seen and examined, follow u consult is dictated#[id number] s/p hd , had auf about 3 lit, difficult to place needles and oozing from previous needle site vascular surgery consult Objective - Vital Signs/Intake and Output Vital Signs (last 24 hours): Temp Pulse Resp BP Pulse Ox 97.8 F 80 20 140/50 L 100 03/07/18 19:50 03/07/18 19:50 03/07/18 19:50 03/07/18 19:50 03/07/18 19:50 Intake and Output: 03/07/18 03/08/18 18:59 06:59 Intake Total 355 Balance 355 - Medications Medications: Current Medications Albuterol/Ipratropium (Duoneb 3 Mg/0.5 Mg (3 Ml) Ud) 3 ml INH RQ6 [facility] Last Admin: 03/07/18 19:38 Dose: 3 ml Alprazolam (Xanax) 0.25 mg PO Q6H PRN PRN Reason: Anxiety Last Admin: 03/07/18 06:24 Dose: 0.25 mg Aspirin (Aspirin Chewable) 81 mg PO DAILY [facility] Last Admin: 03/07/18 16:25 Dose: Not Given Budesonide (Pulmicort Respules) 0.5 mg INH RQ12 [facility] Last Admin: 03/07/18 19:38 Dose: 0.5 mg Diphenhydramine HCl (Benadryl) 50 mg PO Q8 ONE Stop: 03/08/18 11:01 Docusate Sodium (Colace) 100 mg PO BID [facility] [place] Last Admin: 03/07/18 19:38 Dose: 100 mg Enoxaparin Sodium (Lovenox) 30 mg SC DAILY [facility] Last Admin: 03/07/18 16:25 Dose: Not Given Epoetin Mario (Procrit) 20,000 unit IV TTS [facility] Last Admin: 03/07/18 13:37 Dose: 20,000 unit Ferric Sodium Gluconate Complex (Ferrlecit) 125 mg IVPB TTS [facility] Stop: 03/15/18 10:01 Last Admin: 03/07/18 11:41 Dose: 125 mg Ferrous Sulfate (Feosol) 325 mg PO DAILY [facility] Last Admin: 03/07/18 16:25 Dose: Not Given Furosemide (Lasix) 40 mg PO DAILY [facility] Last Admin: 03/07/18 16:25 Dose: Not Given Cefepime HCl 1 gm/ Dextrose 50 mls @ 100 mls/hr IVPB Q12H [facility] PRN Reason: Protocol Last Admin: 03/07/18 08:56 Dose: 100 mls/hr Insulin Human Regular (Novolin R) 0 unit SC ACHS [facility] PRN Reason: Protocol Last Admin: 03/07/18 17:29 Dose: Not Given Lactulose (Enulose) 20 gm PO DAILY PRN PRN Reason: FOR CONSTIPATION Midodrine (Proamatine) 5 mg PO MWF [facility] Last Admin: 03/06/18 10:28 Dose: 5 mg Ondansetron HCl (Zofran Tab) 4 mg PO Q8H PRN PRN Reason: Nausea/Vomiting Paricalcitol (Zemplar) 2 mcg IV TTS [facility] Last Admin: 03/07/18 13:38 Dose: 2 mcg Polyethylene Glycol (Miralax) 17 gm PO DAILY [facility] Last Admin: 03/07/18 16:25 Dose: Not Given Prednisone (Prednisone Tab) 50 mg PO ONCE ONE Stop: 03/07/18 23:01 Prednisone (Prednisone Tab) 50 mg PO ONCE ONE Stop: 03/08/18 05:01 Prednisone (Prednisone Tab) 50 mg PO ONCE ONE Stop: 03/08/18 11:01 Rosuvastatin Calcium (Crestor) 10 mg PO [facility] Last Admin: 03/06/18 21:23 Dose: 10 mg Sevelamer Carbonate (Renvela) 800 mg PO TIDCC [facility] Vitamin B Complex/Vit C/Folic Acid (Nephro-Renaldo) 1 tab PO DAILY [facility] Last Admin: 03/07/18 16:26 Dose: Not Given - Labs Labs: 03/07/18 06:13 03/07/18 06:13 PT 12.2 SECONDS (9.7-12.2) 03/05/18 16:08 INR 1.1 03/05/18 16:08 APTT 44 SECONDS (21-34) H 03/05/18 16:08
[2018-03-08] MEDS: Albuterol-Ipratrop 3 mg / 0.5 (3 ml) UD INH SCH ×4 (01:18→19:58)
--- NOTE | 2018-03-08 05:18 | PN ---
Copied To: Maritn Ortiz MD Attending MD: Martin Ortiz MD DATE: 03/07/2018 FOLLOWUP RENAL CONSULTATION REQUESTED BY: Carlos Andrews DO REASON FOR FOLLOWUP: End-stage renal disease, for continuation of hemodialysis, status post cardiac arrest questionable, status post CPR, and bleeding from the left AV fistula. SUBJECTIVE: Mr. Gonzales is a 67-year-old elderly obese [place] male with a past medical history significant for longstanding hypertension, diabetes, coronary artery disease, status post CABG, CVA with left-sided weakness and no contracture of the left upper extremity, end-stage renal disease, CHF, anemia, COPD, who was sent from the dialysis after unresponsiveness and initiation of the CPR. The patient was responding to commands when the EMS arrived. The patient was drowsy, and also found to have bleeding from the AV fistula site. The patient underwent hemodialysis today, had difficulty in cannulating the HV access and also oozing slightly from the previous needle site. The patient underwent hemodialysis. He had ultrafiltration about 3 liters. The patient is more alert, awake, following commands appropriately, on nasal cannula. No chest pain, no palpitation. The patient also received one unit of packed RBC transfusion during dialysis. PHYSICAL EXAMINATION: VITAL SIGNS: Include as follows: Blood pressure 140/50, pulse 80, respirations 20, temperature 97.8, saturation 100%. Height 5 feet 6 inches, and his post dialysis weight is 86.9 kg. GENERAL: Mr. Gonzales is a 67-year-old elderly obese [place] male, moderately built, moderately nourished, not in distress, on nasal cannula. HEENT: Pupils normal and reactive to light and accommodation. Conjunctivae pink. Sclerae anicteric. Tongue is moist. NECK: Trachea is midline. LUNGS: Symmetric on both sides. Bilateral basal crackles present. CVS: [place] at the fifth intercostal space, midclavicular line. S1, S2 audible. No murmur, no gallop. The patient has a midsternal scar present from the previous CABG and also pacemaker in the right subclavian region. ABDOMEN: Normal in appearance. Soft, tympanic. No guarding. No rigidity. No hepatosplenomegaly. BOOK AGENT: The patient is alert, awake, and oriented x3. Nonfocal neuro examination, except left-sided weakness from the previous CVA and also contracture of the left upper extremity. EXTREMITIES: No cyanosis, no clubbing. The patient has 2+ edema in both lower extremities. LABORATORY DATA: Include as follows: As of 03/07/2018, WBC 5, hemoglobin 8, hematocrit is 25.7, and platelets 149. Sodium 141, potassium 5.1, chloride 99, CO2 27, BUN 32, creatinine 3.8, glucose 113, calcium 8.3. Total bilirubin 0.4. AST 27, ALT 25, alkaline phosphatase 114, and total protein 6.6, albumin is 3.4. CPK 44, troponin 0.02. Accu-Cheks 121 and 171. Chest x-ray as of 03/07/2018, impression: Slight decreased bilateral pleural effusions, residual pleural effusions, persistent bibasilar compressive atelectasis inferred, mixed pathology cardiomegaly, pulmonary venous congestion, , pulmonary edema, asymmetrical mid right lung zone and/or coalescent infiltrates seen here. ASSESSMENT AND PLAN: In summary, Mr. Conor Gonzales is a 67-year-old elderly [place] male with history of hypertension, diabetes, chronic obstructive pulmonary disease, congestive heart failure, end-stage renal disease, coronary artery disease, status post coronary artery bypass graft, cerebrovascular accident with left-sided weakness, pacemaker, was found suddenly unresponsive. The patient claims he is sleeping. The patient was not responding to verbal commands and cardiopulmonary resuscitation was initiated and the patient was also found to have CO2 retention on admission and placed on continuous positive airway pressure and a low hemoglobin and hematocrit. 1. End-stage renal disease. Continue hemodialysis 3 to 4 times a week as needed, Sunday, , Sunday. 2. Anemia secondary to renal failure and rule out slow gastrointestinal loss, and also bleeding from the arteriovenous fistula site. The patient received one unit of packed red blood cells. Follow up hemoglobin and hematocrit and check stool for occult blood. Check iron total iron binding capacity, ferritin level. 3. Chronic obstructive pulmonary disease. 4. Congestive heart failure. 5. Rule out pneumonia also. We will try to schedule for an extra hemodialysis tomorrow if the patient cooperates, and also we will request Vascular Surgery consult for evaluation of the left upper extremity hemodialysis access for recurrent bleeding from the arteriovenous graft site. We will follow with you. Continue his current medications, aspirin, Benadryl, cefepime, Crestor, DuoNeb inhaler, lactulose, Feosol, Lasix, Lovenox, Nephro-Renaldo, prednisone, Midodrine, Procrit, Pulmicort, Renvela, Xanax, Zemplar, and Zofran. Thank you for allowing me to participate in your patient's care. Martin Ortiz MD [facility] # [id number]
--- NOTE | 2018-03-08 06:44 | CP.PCM.PN ---
<Pauline Quan - Last Filed: 03/08/18 06:48> Subjective - Date & Time of Evaluation Date of Evaluation: 03/08/18 Time of Evaluation: 06:40 - Subjective Subjective: Ms. Shields was seen and examined at the bedside. He is alert, oriented. He denies any headache, dizziness, complain of shortness with exertion. He has extensive of history of CAD, pacemaker. He is able to follow simple commands with minimal movement of the extremities. Repeat of CT scan of the head showed Chronic microvascular ischemic changes. Sinus mucosal disease. Unable to do CTA of the head due to patient's kidney problem.There was no untoward events overnight. Objective - Vital Signs/Intake and Output Vital Signs (last 24 hours): Temp Pulse Resp BP Pulse Ox 98.0 F 80 20 142/51 L 84 L 03/07/18 23:40 03/08/18 03:44 03/07/18 23:40 03/07/18 23:40 03/07/18 23:40 Intake and Output: 03/07/18 03/08/18 18:59 06:59 Intake Total 355 410 Balance 355 410 - Medications Medications: Current Medications Albuterol/Ipratropium (Duoneb 3 Mg/0.5 Mg (3 Ml) Ud) 3 ml INH RQ6 [facility] Last Admin: 03/08/18 01:18 Dose: Not Given Alprazolam (Xanax) 0.25 mg PO Q6H PRN PRN Reason: Anxiety Last Admin: 03/07/18 23:13 Dose: 0.25 mg Aspirin (Aspirin Chewable) 81 mg PO DAILY [facility] Last Admin: 03/07/18 16:25 Dose: Not Given Budesonide (Pulmicort Respules) 0.5 mg INH RQ12 [facility] Last Admin: 03/07/18 19:38 Dose: 0.5 mg Diphenhydramine HCl (Benadryl) 50 mg PO Q8 ONE Stop: 03/08/18 11:01 Docusate Sodium (Colace) 100 mg PO BID [facility] Last Admin: 03/07/18 19:38 Dose: 100 mg Enoxaparin Sodium (Lovenox) 30 mg SC DAILY [facility] Last Admin: 03/07/18 16:25 Dose: Not Given Epoetin Mario (Procrit) 20,000 unit IV TTS [facility] Last Admin: 03/07/18 13:37 Dose: 20,000 unit Ferric Sodium Gluconate Complex (Ferrlecit) 125 mg IVPB TTS [facility] Stop: 03/15/18 10:01 Last Admin: 03/07/18 11:41 Dose: 125 mg Ferrous Sulfate (Feosol) 325 mg PO DAILY [facility] Last Admin: 03/07/18 16:25 Dose: Not Given Furosemide (Lasix) 40 mg PO DAILY [facility] Last Admin: 03/07/18 16:25 Dose: Not Given Cefepime HCl 1 gm/ Dextrose 50 mls @ 100 mls/hr IVPB Q12H [facility] PRN Reason: Protocol Last Admin: 03/07/18 21:28 Dose: 100 mls/hr Insulin Human Regular (Novolin R) 0 unit SC ACHS [facility] PRN Reason: Protocol Last Admin: 03/07/18 21:31 Dose: Not Given Lactulose (Enulose) 20 gm PO DAILY PRN PRN Reason: FOR CONSTIPATION Midodrine (Proamatine) 5 mg PO MWF [facility] Last Admin: 03/06/18 10:28 Dose: 5 mg Ondansetron HCl (Zofran Tab) 4 mg PO Q8H PRN PRN Reason: Nausea/Vomiting Paricalcitol (Zemplar) 2 mcg IV TTS [facility] Last Admin: 03/07/18 13:38 Dose: 2 mcg Polyethylene Glycol (Miralax) 17 gm PO DAILY [facility] Last Admin: 03/07/18 16:25 Dose: Not Given Prednisone (Prednisone Tab) 50 mg PO ONCE ONE Stop: 03/08/18 11:01 Rosuvastatin Calcium (Crestor) 10 mg PO HS [facility] Last Admin: 03/07/18 21:27 Dose: 10 mg Sevelamer Carbonate (Renvela) 800 mg PO TIDCC [facility] Vitamin B Complex/Vit C/Folic Acid (Nephro-Renaldo) 1 tab PO DAILY [facility] Last Admin: 03/07/18 16:26 Dose: Not Given - Labs Labs: 03/07/18 06:13 03/07/18 06:13 PT 12.2 SECONDS (9.7-12.2) 03/05/18 16:08 INR 1.1 03/05/18 16:08 APTT 44 SECONDS (21-34) H 03/05/18 16:08 - Constitutional Appears: No Acute Distress - Head Exam Head Exam: NORMAL INSPECTION - Eye Exam Pupil Exam: PERRL - Neurological Exam Neurological Exam: Alert, Awake, Oriented x3 Neuro motor strength exam: Left Upper Extremity: 3 (left hand contracted), Right Upper Extremity: 3, Left Lower Extremity: 2/1, Right Lower Extremity: 2/1 Additional comments: alert, oriented follows commands with limited movements. Assessment and Plan (1) History of CVA (cerebrovascular accident) Assessment & Plan: Continue all current medical regimen. Recommend to follow any orders from nephrology, cardiology, and primary, treat any underlying infection and electrolyte abnormalities. Status: Chronic <Jimenez,Gautami - Last Filed: 03/12/18 12:44> Objective - Vital Signs/Intake and Output Vital Signs (last 24 hours): Temp Pulse Resp BP Pulse Ox 97.5 F L 80 18 133/49 L 99 03/12/18 07:00 03/12/18 07:30 03/12/18 07:00 03/12/18 07:00 03/12/18 07:00 Intake and Output: 03/12/18 03/12/18 06:59 18:59 Intake Total 40 Balance 40 - Medications Medications: Current Medications Acetaminophen (Tylenol 325mg Tab) 650 mg PO Q6 PRN PRN Reason: Pain, Mild (1-3) Last Admin: 03/11/18 22:27 Dose: 650 mg Alprazolam (Xanax) 0.25 mg PO Q6H PRN PRN Reason: Anxiety Last Admin: 03/11/18 23:51 Dose: 0.25 mg Aspirin (Aspirin Chewable) 81 mg PO DAILY [facility] Last Admin: 03/12/18 11:07 Dose: Not Given Benzonatate (Tessalon Perles) 100 mg PO TID [facility] Last Admin: 03/12/18 11:09 Dose: Not Given Budesonide (Pulmicort Respules) 0.5 mg INH RQ12 [facility] Last Admin: 03/12/18 09:33 Dose: Not Given Docusate Sodium (Colace) 100 mg PO BID [facility] Last Admin: 03/12/18 10:20 Dose: Not Given Epoetin Mario (Procrit) 20,000 unit IV TTS [facility] Last Admin: 03/12/18 12:20 Dose: 20,000 unit Ferric Sodium Gluconate Complex (Ferrlecit) 125 mg IVPB TTS [facility] Stop: 03/15/18 10:01 Last Admin: 03/12/18 12:19 Dose: 125 mg Furosemide (Lasix) 40 mg PO DAILY [facility] Last Admin: 03/12/18 11:08 Dose: Not Given Heparin Sodium (Porcine) (Heparin) 5,000 units SC Q12 [facility] Cefepime HCl 1 gm/ Dextrose 50 mls @ 100 mls/hr IVPB Q12H [facility] PRN Reason: Protocol Last Admin: 03/12/18 10:20 Dose: Not Given Insulin Human Regular (Novolin R) 0 unit SC ACHS [facility] PRN Reason: Protocol Last Admin: 03/12/18 08:04 Dose: Not Given Lactulose (Enulose) 20 gm PO DAILY PRN PRN Reason: FOR CONSTIPATION Lidocaine/Prilocaine (Emla) 0 gm TOP TuThSa PRN PRN Reason: FOR PAIN Last Admin: 03/09/18 08:56 Dose: 1 applic Lisinopril (Zestril) 2.5 mg PO DAILY [facility] Last Admin: 03/12/18 10:21 Dose: Not Given Midodrine (Proamatine) 5 mg PO MWF [facility] Last Admin: 03/11/18 09:43 Dose: 5 mg Ondansetron HCl (Zofran Tab) 4 mg PO Q8H PRN PRN Reason: Nausea/Vomiting Paricalcitol (Zemplar) 2 mcg IV TTS [facility] Last Admin: 03/09/18 13:20 Dose: 2 mcg Polyethylene Glycol (Miralax) 17 gm PO DAILY [facility] Last Admin: 03/12/18 10:21 Dose: Not Given Rosuvastatin Calcium (Crestor) 10 mg PO HS [facility] Last Admin: 03/11/18 21:31 Dose: 10 mg Saliva Substitute (First Magic Mouthwash) 10 ml PO QID [facility] Last Admin: 03/12/18 10:20 Dose: Not Given Sevelamer Carbonate (Renvela) 800 mg PO TIDCC [facility] Last Admin: 03/12/18 08:05 Dose: Not Given Ticagrelor (Brilinta) 90 mg PO BID [facility] Last Admin: 03/12/18 10:20 Dose: Not Given Vitamin B Complex/Vit C/Folic Acid (Nephro-Renaldo) 1 tab PO DAILY [facility] Last Admin: 03/12/18 11:08 Dose: Not Given - Labs Labs: 03/12/18 05:03 03/12/18 05:03 PT 13.5 SECONDS (9.7-12.2) H 03/10/18 03:29 INR 1.2 03/10/18 03:29 APTT 35 SECONDS (21-34) H D 03/12/18 05:03 Assessment and Plan - Assessment and Plan (Free Text) Assessment: Attestation: I examined the patient myself and found the neurological exam to be unchanged. Plan was formulated by myself and written with resident. Thank you Dr. jimenez
[2018-03-08] MEDS: Budesonide 0.5 mg/2 ml Inhal Susp UD INH SCH ×2 (07:35→19:15)
[2018-03-08] MEDS: (Novolin R) Insulin Human Regular 100 units/ml vial SC SCH ×3 (08:13→19:58)
[2018-03-08 08:38] LABS: HEMOGLOBIN 9.6 g/dL (12.0-18.0); MEAN CELL VOLUME 101.7 fL (80.0-94.0); MEAN CORPUSCULAR HEMOGLOBIN 31.8 pg (27.0-31.0); MEAN CORPUSCULAR HGB CONC 31.2 g/dL (33.0-37.0); MEAN PLATELET VOLUME 8.3 fL (7.2-11.7); RBC 3.04 Mil/uL (4.40-5.90); RED CELL DISTRIBUTION WIDTH 17.4 % (11.5-14.5); WHITE BLOOD COUNT 3.8 K/uL (4.8-10.8)
[2018-03-08 08:56] LABS: ALB/GLOB RATIO 1.2 (1.0-2.1); ALBUMIN 3.9 g/dL (3.5-5.0); CALCIUM 9.2 mg/dl (8.6-10.4)
[2018-03-08] MEDS ORDERED: Lidocaine 2% MPF (5 ml) Inj ONE (11:12)
[2018-03-08] MEDS ORDERED: Nitroglycerin 50mg in D5W 0 MG/0 ML BOTTLE IV ONE (11:26)
--- NOTE | 2018-03-08 12:09 | CP.PCM.PN ---
Subjective - Date & Time of Evaluation Date of Evaluation: 03/08/18 Time of Evaluation: 09:20 - Subjective Subjective: patient seen and examined Rapid response yesterday for pleuritic chest pain Denies fever chills Using BiPAP at night Status post hemodialysis yesterday Objective - Vital Signs/Intake and Output Vital Signs (last 24 hours): Temp Pulse Resp BP Pulse Ox 97.6 F 80 21 154/62 H 99 03/08/18 07:30 03/08/18 07:35 03/08/18 07:30 03/08/18 07:30 03/08/18 07:30 Intake and Output: 03/08/18 03/08/18 06:59 18:59 Intake Total 410 Balance 410 - Medications Medications: Current Medications Albuterol/Ipratropium (Duoneb 3 Mg/0.5 Mg (3 Ml) Ud) 3 ml INH RQ6 [facility] Last Admin: 03/08/18 07:35 Dose: 3 ml Alprazolam (Xanax) 0.25 mg PO Q6H PRN PRN Reason: Anxiety Last Admin: 03/08/18 08:45 Dose: 0.25 mg Aspirin (Aspirin Chewable) 81 mg PO DAILY [facility] Last Admin: 03/07/18 16:25 Dose: Not Given Budesonide (Pulmicort Respules) 0.5 mg INH RQ12 [facility] Last Admin: 03/08/18 07:35 Dose: 0.5 mg Docusate Sodium (Colace) 100 mg PO BID [facility] Last Admin: 03/07/18 19:38 Dose: 100 mg Enoxaparin Sodium (Lovenox) 30 mg SC DAILY [facility] Last Admin: 03/07/18 16:25 Dose: Not Given Epoetin Mario (Procrit) 20,000 unit IV TTS [facility] Last Admin: 03/07/18 13:37 Dose: 20,000 unit Ferric Sodium Gluconate Complex (Ferrlecit) 125 mg IVPB TTS [facility] Stop: 03/15/18 10:01 Last Admin: 03/07/18 11:41 Dose: 125 mg Ferrous Sulfate (Feosol) 325 mg PO DAILY [facility] Last Admin: 03/07/18 16:25 Dose: Not Given Furosemide (Lasix) 40 mg PO DAILY [facility] Last Admin: 03/07/18 16:25 Dose: Not Given Cefepime HCl 1 gm/ Dextrose 50 mls @ 100 mls/hr IVPB Q12H [facility] PRN Reason: Protocol Last Admin: 03/08/18 08:57 Dose: 100 mls/hr Insulin Human Regular (Novolin R) 0 unit SC ACHS [facility] PRN Reason: Protocol Last Admin: 03/08/18 08:13 Dose: Not Given Lactulose (Enulose) 20 gm PO DAILY PRN PRN Reason: FOR CONSTIPATION Midodrine (Proamatine) 5 mg PO MWF [facility] Last Admin: 03/08/18 08:56 Dose: 5 mg Ondansetron HCl (Zofran Tab) 4 mg PO Q8H PRN PRN Reason: Nausea/Vomiting Paricalcitol (Zemplar) 2 mcg IV TTS [facility] Last Admin: 03/07/18 13:38 Dose: 2 mcg Polyethylene Glycol (Miralax) 17 gm PO DAILY [facility] Last Admin: 03/07/18 16:25 Dose: Not Given Rosuvastatin Calcium (Crestor) 10 mg PO HS [facility] Last Admin: 03/07/18 21:27 Dose: 10 mg Sevelamer Carbonate (Renvela) 800 mg PO TIDCC [facility] Last Admin: 03/08/18 08:56 Dose: 800 mg Vitamin B Complex/Vit C/Folic Acid (Nephro-Renaldo) 1 tab PO DAILY [facility] Last Admin: 03/07/18 16:26 Dose: Not Given - Labs Labs: 03/08/18 08:18 03/08/18 08:18 PT 12.2 SECONDS (9.7-12.2) 03/05/18 16:08 INR 1.1 03/05/18 16:08 APTT 44 SECONDS (21-34) H 03/05/18 16:08 - Head Exam Head Exam: ATRAUMATIC, NORMOCEPHALIC - Eye Exam Eye Exam: Normal appearance - ENT Exam ENT Exam: Mucous Membranes Moist - Neck Exam Neck Exam: Normal Inspection - Respiratory Exam Respiratory Exam: Decreased Breath Sounds - Cardiovascular Exam Cardiovascular Exam: REGULAR RHYTHM - GI/Abdominal Exam GI & Abdominal Exam: Soft, Normal Bowel Sounds Assessment and Plan (1) Hypercapnic respiratory failure Assessment & Plan: continue BiPAP at night and as needed Followup ABG Nebulizer treatment and budesonide Continue hemodialysis Status: Acute (2) ESRD on hemodialysis Status: Acute (3) COPD (chronic obstructive pulmonary disease) Status: Acute
--- NOTE | 2018-03-08 12:15 | CP.PCM.PN ---
Subjective - Date & Time of Evaluation Date of Evaluation: 03/08/18 Time of Evaluation: 12:14 - Subjective Subjective: fistulogram cancelled due to chest pain, ekg changes dr Andrews notified Objective - Vital Signs/Intake and Output Vital Signs (last 24 hours): Temp Pulse Resp BP Pulse Ox 97.6 F 80 21 154/62 H 99 03/08/18 07:30 03/08/18 07:35 03/08/18 07:30 03/08/18 07:30 03/08/18 07:30 Intake and Output: 03/08/18 03/08/18 06:59 18:59 Intake Total 410 Balance 410 - Medications Medications: Current Medications Albuterol/Ipratropium (Duoneb 3 Mg/0.5 Mg (3 Ml) Ud) 3 ml INH RQ6 [facility] Last Admin: 03/08/18 07:35 Dose: 3 ml Alprazolam (Xanax) 0.25 mg PO Q6H PRN PRN Reason: Anxiety Last Admin: 03/08/18 08:45 Dose: 0.25 mg Aspirin (Aspirin Chewable) 81 mg PO DAILY [facility] Last Admin: 03/07/18 16:25 Dose: Not Given Budesonide (Pulmicort Respules) 0.5 mg INH RQ12 [facility] Last Admin: 03/08/18 07:35 Dose: 0.5 mg Docusate Sodium (Colace) 100 mg PO BID [facility] Last Admin: 03/07/18 19:38 Dose: 100 mg Enoxaparin Sodium (Lovenox) 30 mg SC DAILY [facility] Last Admin: 03/07/18 16:25 Dose: Not Given Epoetin Mario (Procrit) 20,000 unit IV TTS [facility] Last Admin: 03/07/18 13:37 Dose: 20,000 unit Ferric Sodium Gluconate Complex (Ferrlecit) 125 mg IVPB TTS [facility] Stop: 03/15/18 10:01 Last Admin: 03/07/18 11:41 Dose: 125 mg Ferrous Sulfate (Feosol) 325 mg PO DAILY [facility] Last Admin: 03/07/18 16:25 Dose: Not Given Furosemide (Lasix) 40 mg PO DAILY [facility] Last Admin: 03/07/18 16:25 Dose: Not Given Cefepime HCl 1 gm/ Dextrose 50 mls @ 100 mls/hr IVPB Q12H [facility] PRN Reason: Protocol Last Admin: 03/08/18 08:57 Dose: 100 mls/hr Insulin Human Regular (Novolin R) 0 unit SC ACHS [facility] PRN Reason: Protocol Last Admin: 03/08/18 08:13 Dose: Not Given Lactulose (Enulose) 20 gm PO DAILY PRN PRN Reason: FOR CONSTIPATION Midodrine (Proamatine) 5 mg PO MWF [facility] Last Admin: 03/08/18 08:56 Dose: 5 mg Ondansetron HCl (Zofran Tab) 4 mg PO Q8H PRN PRN Reason: Nausea/Vomiting Paricalcitol (Zemplar) 2 mcg IV TTS [facility] Last Admin: 03/07/18 13:38 Dose: 2 mcg Polyethylene Glycol (Miralax) 17 gm PO DAILY [facility] Last Admin: 03/07/18 16:25 Dose: Not Given Rosuvastatin Calcium (Crestor) 10 mg PO HS [facility] Last Admin: 03/07/18 21:27 Dose: 10 mg Sevelamer Carbonate (Renvela) 800 mg PO TIDCC [facility] Last Admin: 03/08/18 08:56 Dose: 800 mg Vitamin B Complex/Vit C/Folic Acid (Nephro-Renaldo) 1 tab PO DAILY [facility] Last Admin: 03/07/18 16:26 Dose: Not Given - Labs Labs: 03/08/18 08:18 03/08/18 08:18 PT 12.2 SECONDS (9.7-12.2) 03/05/18 16:08 INR 1.1 03/05/18 16:08 APTT 44 SECONDS (21-34) H 03/05/18 16:08
--- NOTE | 2018-03-08 13:04 | VASCLAB ---
Date of service: 03/06/2018 PROCEDURE: HISTORY: hx of stroke, examine cause of stroke COMPARISON: None available. TECHNIQUE: Grayscale and duplex Doppler evaluation of the cervical carotid and vertebral arteries were performed. The common carotid, carotid bifurcations and cervical Internal Carotid Artery (ICA) and proximal External Carotid Artery (ECA) were evaluated. The vertebral arteries were evaluated for gross patency and flow direction. Report prepared by Fabiano Ghosh, BS, RVT FINDINGS: RIGHT CAROTID ARTERIES: 1. Common Carotid Artery: Moderate plaque formation of the right proximal CCA which does not results in hemodynamically significant stenosis. Maximum Peak Systolic velocity: 104 cm/sec: End-diastolic velocity 17 cm/sec. 2. Carotid Bifurcation: Calcific plaque formation. Maximum Peak Systolic velocity: 76 cm/sec: End-diastolic velocity 13 cm/sec. 3. Internal Carotid Artery: Moderate plaque formation of the right proximal ICA which does not results in hemodynamically significant stenosis. Plaque description: Calcific 3.1. Proximal Segment: Peak systolic velocity 137 cm/sec: End-diastolic velocity 21 cm/sec - % stenosis 0-15% 3.2. Middle Segment: Peak systolic velocity 129 cm/sec: End-diastolic velocity 33 cm/sec - % stenosis 0-15% 3.3. Distal Segment: Peak systolic velocity 108 cm/sec: End-diastolic velocity 33 cm/sec - % stenosis 0-15% 4. External Carotid Artery: No significant focal plaque formation. Peak systolic velocity 115 cm/sec 5. ICA/CCA Ratio: 1.3 LEFT CAROTID ARTERIES: 1. Common Carotid Artery: Moderate plaque formation of the left proximal CCA which does not results in hemodynamically significant stenosis. Maximum Peak Systolic velocity: 111 cm/sec: End-diastolic velocity 31 cm/sec. 2. Carotid Bifurcation: plaque formation. Maximum Peak Systolic velocity: 90 cm/sec: End-diastolic velocity 19 cm/sec. 3. Internal Carotid Artery: Moderate plaque formation of the left proximal ICA which does not results in hemodynamically significant stenosis. Plaque description: Calcific 3.1. Proximal Segment: Peak systolic velocity 123 cm/sec: End-diastolic velocity 31 cm/sec - % stenosis 0-15% 3.2. Middle Segment: Peak systolic velocity 75 cm/sec: End-diastolic velocity 20 cm/sec - % stenosis 0-15% 3.3. Distal Segment: Peak systolic velocity 79 cm/sec: End-diastolic velocity 23 cm/sec - % stenosis 0-15% 4. External Carotid Artery: No significant focal plaque formation. Peak systolic velocity 92 cm/sec 5. ICA/CCA Ratio: 1.1 VERTEBRAL ARTERIES: 1. Right Vertebral Artery: The right vertebral artery flow direction is antegrade. 2. Left Vertebral Artery: The left vertebral artery flow direction is antegrade. OTHER FINDINGS: 1. Right Brachial Blood pressure: mmHg. 2. Left Brachial Blood pressure: mmHg. IMPRESSION: RIGHT: Duplex scan does not suggest hemodynamically significant stenosis of the right extracranial carotid arteries. LEFT: Duplex scan does not suggest hemodynamically significant stenosis of the left extracranial carotid arteries.
--- NOTE | 2018-03-08 13:48 | PN ---
Copied To: Carlos Andrews DO Attending MD: Carlos Andrews DO DATE: 03/08/2018 SUBJECTIVE: He is going to be going to a procedure with Dr. Medina today. He is a little bit better when he came in, but he is very nervous and upset. He wants to go back to [facility], but he cannot at this time. He is still on IV antibiotics and he has to his access evaluated and his treatment for his urinary tract infection. PHYSICAL EXAMINATION: VITAL SIGNS: Temperature 97.6, 80 pulse, 154/62 blood pressure, 20 respiratory rate, 99% O2 saturation on room air. HEENT: Head: Atraumatic and normocephalic. Throat is dry. NECK: Supple. HEART: Regular rate. LUNGS: Decreased breath sounds bilaterally. Poor inspiration. Occasional congestion. ABDOMEN: Soft. Obese. Nontender. EXTREMITIES: He is weak all 4 extremities. No edema. ASSESSMENT AND PLAN: He is on aspirin, Benadryl, Cefepime, IV Colace, Crestor, DuoNebs, Enulose, iron, Lasix, Lovenox, MiraLax, Nephro-Renaldo, Novolin, prednisone at 50, ProAmatine, Procrit, Pulmicort, Renvela, Xanax, Zemplar and Zofran. He has a 3.8 white count, 9.6 hemoglobin, 30.9 hematocrit, 145 platelets with transfusion today during dialysis 1 unit. He has a 141 sodium, potassium is 5.4, BUN 15, creatinine 2.8, GFR 23, sugars are 151. Calcium is 9.2, total bili is 0.58, AST 22, ALT 27, alk phos 146. His troponin I was 0.02 and his total protein is 7.2. He had a very positive UTI. Pus was going into the Shine bag. He has been seen by multiple physicians, Pulmonary, Infectious Disease, Renal, Cardio. We will continue aggressive treatment and care, also vascular, and we are going to evaluate it access. We will continue with IV antibiotics [facility]. Carlos Andrews DO [facility]
[2018-03-08] MEDS ORDERED: Heparin25000 units/250ml 1/2NS 25,000 UNITS/250 ML BAG IV PRN (13:50)
[2018-03-08 14:47] LABS: CK-MB 1.7 ng/mL (0.0-3.38); TROPONIN I 0.015 ng/mL (0.00-0.120)
[2018-03-08] MEDS: POLYETHYLENE GLYCOL 3350 17 GM/Dose PACKET PO SCH (14:47)
[2018-03-08] MEDS: Multivitamin Vitamin B Complex (Nephro-Vite) Tab PO SCH (15:03)
[2018-03-08 15:32] LABS: INR 1.2; PROTHROMBIN TIME 12.8 SECONDS (9.7-12.2)
--- NOTE | 2018-03-08 17:06 | CP.PCM.CON ---
<Charity Pickering P - Last Filed: 03/08/18 19:46> History of Present Illness - History of Present Illness History of Present Illness: Critical Care Consult note Reason for consult: Chest pain with ECG changes HPI: Patient is a 67 year old male with a PMH of ESRD on HD, CVA (residual focal weakness in left upper and bilateral lower extremities, L>R), anemia, asthma, COPD, CAD s/p CABG, DM, HTN, hypercholesterolemia , hyperlipidemia, CHF , peripheral edema, depression and sleep apnea. Patient came to ED 03/05 after he become unresponsive at dialysis and CPR was initiated. Fistula was bleeding at that time. He was admitted for respiratory acidosis and UTI. RECORD TESTER called 03/07 while patient was undergoing dialysis for pleuritic chest pain. No ECG changes and negative troponin at that time. Chest pain improved after Toradal, ASA, and Solu-medrol. Today 03/08/18, Patient was undergoing a fistulogram of the left arm hybrid graft (due to difficulty cannulating shunt at arterial site) however the procedure was cancelled due to patient having chest pain and EKG changes. At present, patient complains of pain in his chest with coughing and moving his left arm. He is speaking clearly and responsive to questions. PMD: Carlos Andrews Cardio: Lance PMH: ESRD on HD CVA (residual focal weakness in left upper and bilateral lower extremities, L>R ) anemia asthma, COPD CAD s/p CABG DM HTN hypercholesterolemia hyperlipidemia CHF peripheral edema depression sleep apnea PSH: CABG (1985), pacemaker endoscopy Left arm hybrid AV graft (10/07/[address] Ramon) Medications: zolpidem 5mg po hs prn tramadol 50mg po q6 prn Humulin 100 units sc ss Lasix 40mg po daily xanax 0.25mg po hs Midodrine 5mg po MWF aspirin 81mg po daily Miralax 17gm po daily Colace 100mg po bid Neurontin 100mg po hs Nephro-mari 1 tab po daily Feosol 324mg po daily atorvastatin 40mg po QPM Renvela 800mg po tid Zofran 4mg po q8h prn Lisinopril 2.5mg po daily Lactulose 20gm po prn Allergies: iodine, IV dye, Clopidogrel, Penicillin SH: denies drugs/tobacco/ETOH. Permanent resident at [facility]. FH: HTN Review of Systems - Constitutional Constitutional: absent: Chills, Fever - Respiratory Respiratory: Cough, Dyspnea, Pain with Coughing. absent: Hemoptysis, Wheezing - Gastrointestinal Gastrointestinal: Abdominal Pain. absent: Cramping, Diarrhea, Nausea, Vomiting - Musculoskeletal Musculoskeletal: Arthralgias, Muscle Weakness - Neurological Neurological: absent: Dizziness, Numbness, Headaches Past Patient History - Infectious Disease Hx of Infectious Diseases: None - Past Medical History & Family History Past Medical History?: Yes - Past Social History Smoking Status: Never Smoked - CARDIAC Hx Congestive Heart Failure: Yes Hx Hypercholesterolemia: Yes Hx Hypertension: Yes - PULMONARY Hx Chronic Obstructive Pulmonary Disease (COPD): Yes - NEUROLOGICAL HX Cerebrovascular Accident: Yes (L UE AND B/L LE WEAKNESS) - HEENT Hx HEENT Problems: Yes Hx Cataracts: Yes - RENAL Date of Last Dialysis Treatment: 03/05/18 - ENDOCRINE/METABOLIC Hx Diabetes Mellitus Type 2: Yes - HEMATOLOGICAL/ONCOLOGICAL Hx Blood Disorders: Yes Hx Anemia: Yes - INTEGUMENTARY Hx Dermatological Problems: Yes Other/Comment: healed sacral ulcer - MUSCULOSKELETAL/RHEUMATOLOGICAL Hx Falls: Yes - GASTROINTESTINAL Hx Gastrointestinal Disorders: Yes Other/Comment: HX: DYSPHAGIA,UNSPECIFIED - GENITOURINARY/GYNECOLOGICAL Hx Genitourinary Disorders: No - PSYCHIATRIC Hx Substance Use: No - SURGICAL HISTORY Hx Surgeries: Yes Hx Coronary Artery Bypass Graft: Yes - ANESTHESIA Hx Anesthesia: Yes Hx Anesthesia Reactions: No Hx Malignant Hyperthermia: No Meds Allergies/Adverse Reactions: Allergies Allergy/AdvReac Type Severity Reaction Status Date / Time iodine Allergy Intermediate RASH Verified 03/05/18 15:49 clopidogrel [From Plavix] Allergy SHORTNESS Verified 03/05/18 15:49 OF BREATH clopidogrel bisulfate Allergy UNKNOWN Verified 03/05/18 17:14 [From Plavix] penicillin G Allergy SHORTNESS Verified 03/05/18 15:49 OF BREATH Penicillins Allergy UNKNOWN Verified 03/05/18 15:49 IV DYE Allergy unknown Uncoded 03/05/18 15:49 - Medications Medications: Current Medications Acetaminophen (Tylenol 325mg Tab) 650 mg PO Q6 PRN PRN Reason: Pain, Mild (1-3) Last Admin: 03/08/18 15:48 Dose: 650 mg Albuterol/Ipratropium (Duoneb 3 Mg/0.5 Mg (3 Ml) Ud) 3 ml INH RQ6 [facility] Last Admin: 03/08/18 07:35 Dose: 3 ml Alprazolam (Xanax) 0.25 mg PO Q6H PRN PRN Reason: Anxiety Last Admin: 03/08/18 08:45 Dose: 0.25 mg Aspirin (Aspirin Chewable) 81 mg PO DAILY [facility] Last Admin: 03/08/18 14:47 Dose: 81 mg Budesonide (Pulmicort Respules) 0.5 mg INH RQ12 [facility] Last Admin: 03/08/18 07:35 Dose: 0.5 mg Docusate Sodium (Colace) 100 mg PO BID [facility] Last Admin: 03/08/18 14:46 Dose: 100 mg Epoetin Mario (Procrit) 20,000 unit IV TTS [facility] Last Admin: 03/07/18 13:37 Dose: 20,000 unit Ferric Sodium Gluconate Complex (Ferrlecit) 125 mg IVPB TTS [facility] Stop: 03/15/18 10:01 Last Admin: 03/07/18 11:41 Dose: 125 mg Ferrous Sulfate (Feosol) 325 mg PO DAILY [facility] Last Admin: 03/08/18 14:46 Dose: 325 mg Furosemide (Lasix) 40 mg PO DAILY [facility] Last Admin: 03/08/18 14:47 Dose: 40 mg Cefepime HCl 1 gm/ Dextrose 50 mls @ 100 mls/hr IVPB Q12H [facility] PRN Reason: Protocol Last Admin: 03/08/18 08:57 Dose: 100 mls/hr Heparin Sodium/Sodium Chloride (Heparin 80058 Units/250ml 1/2 Normal Saline) 25 ,000 units in 250 mls @ 3.65 mls/hr IV .Q24H PRN; Protocol; 9 UNITS/KG/HR PRN Reason: PROTOCOL Last Admin: 03/08/18 15:03 Dose: 9 units/kg/hr, 3.65 mls/hr Insulin Human Regular (Novolin R) 0 unit SC ACHS [facility] PRN Reason: Protocol Last Admin: 03/08/18 08:13 Dose: Not Given Lactulose (Enulose) 20 gm PO DAILY PRN PRN Reason: FOR CONSTIPATION Midodrine (Proamatine) 5 mg PO MWF [facility] Last Admin: 03/08/18 08:56 Dose: 5 mg Ondansetron HCl (Zofran Tab) 4 mg PO Q8H PRN PRN Reason: Nausea/Vomiting Paricalcitol (Zemplar) 2 mcg IV TTS [facility] Last Admin: 03/07/18 13:38 Dose: 2 mcg Polyethylene Glycol (Miralax) 17 gm PO DAILY [facility] Last Admin: 03/08/18 14:47 Dose: 17 gm Rosuvastatin Calcium (Crestor) 10 mg PO HS [facility] Last Admin: 03/07/18 21:27 Dose: 10 mg Saliva Substitute (First Magic Mouthwash) 10 ml PO QID [facility] Sevelamer Carbonate (Renvela) 800 mg PO TIDCC [facility] Last Admin: 03/08/18 14:46 Dose: 800 mg Ticagrelor (Brilinta) 90 mg PO BID [facility] Vitamin B Complex/Vit C/Folic Acid (Nephro-Mari) 1 tab PO DAILY [facility] Last Admin: 03/08/18 15:03 Dose: 1 tab Physical Exam - Head Exam Head Exam: ATRAUMATIC, NORMOCEPHALIC - Eye Exam Eye Exam: EOMI, PERRL - ENT Exam ENT Exam: Mucous Membranes Moist - Respiratory Exam Respiratory Exam: Decreased Breath Sounds. absent: Rales, Rhonchi, Wheezes - Cardiovascular Exam Cardiovascular Exam: REGULAR RHYTHM, +S1, +S2 Additional comments: Anterior chest exquisitely tender to light palpation - GI/Abdominal Exam GI & Abdominal Exam: Normal Bowel Sounds, Soft. absent: Guarding, Rebound, Tenderness - Extremities Exam Extremities exam: Positive for: pedal edema (1+ edema bilateral lower extremities), tenderness (bilateral lower extremities). Negative for: full ROM - Neurological Exam Neurological exam: Oriented x3 Results - Vital Signs Recent Vital Signs: Last Vital Signs Temp 97.8 F 03/08/18 13:10 Pulse 80 03/08/18 16:05 Resp 16 03/08/18 16:05 BP 143/56 L 03/08/18 16:05 Pulse Ox 100 03/08/18 16:05 - Labs Result Diagrams: 03/08/18 08:18 03/08/18 08:18 Labs: Laboratory Results - last 24 hr 03/07/18 03/08/18 03/08/18 21:15 06:30 08:18 WBC 3.8 L RBC 3.04 L Hgb 9.6 L Hct 30.9 L MCV 101.7 H MCH 31.8 H MCHC 31.2 L RDW 17.4 H Plt Count 145 MPV 8.3 PT INR APTT Sodium Potassium Chloride Carbon Dioxide Anion Gap BUN Creatinine Est GFR ( Amer) Est GFR (Non-Af Amer) POC Glucose (mg/dL) 171 H 126 H Random Glucose Lactic Acid Calcium Total Bilirubin AST ALT Alkaline Phosphatase Total Creatine Kinase CK-MB (Mass) Troponin I Total Protein Albumin Globulin Albumin/Globulin Ratio 03/08/18 03/08/18 03/08/18 08:18 13:28 14:18 WBC RBC Hgb Hct MCV MCH MCHC RDW Plt Count MPV PT INR APTT Sodium 141 Potassium 5.4 H Chloride 101 Carbon Dioxide 27 Anion Gap 19 BUN 15 Creatinine 2.8 H Est GFR ( Amer) 28 Est GFR (Non-Af Amer) 23 POC Glucose (mg/dL) 140 H Random Glucose 151 H Lactic Acid Calcium 9.2 Total Bilirubin 0.5 AST 22 ALT 27 Alkaline Phosphatase 146 H D Total Creatine Kinase 33 L CK-MB (Mass) 1.70 Troponin I 0.0150 Total Protein 7.2 Albumin 3.9 Globulin 3.3 Albumin/Globulin Ratio 1.2 03/08/18 03/08/18 03/08/18 14:18 15:14 16:07 WBC RBC Hgb Hct MCV MCH MCHC RDW Plt Count MPV PT 12.8 H INR 1.2 APTT 41 H Sodium Potassium Chloride Carbon Dioxide Anion Gap BUN Creatinine Est GFR ( Amer) Est GFR (Non-Af Amer) POC Glucose (mg/dL) 158 H Random Glucose Lactic Acid 1.2 Calcium Total Bilirubin AST ALT Alkaline Phosphatase Total Creatine Kinase CK-MB (Mass) Troponin I Total Protein Albumin Globulin Albumin/Globulin Ratio Assessment & Plan - Assessment and Plan (Free Text) Plan: Neuro: - patient awake and alert, at times disoriented to time - Xanax 0.25 mg q6 prn - Head CT 03/06: No evidence of acute intracranial hemorrhage territorial infarction mass effect or midline shift. No significant interval change noted in the brain parenchyma since the previous exam. - Carotid Doppler Study 03/06: negative (see full report) Cardio: - EKG: Ventricularly paced - Echocardiogram ordered - troponin I normal x 1: 0.0150. f/u serial troponins. - ACS protocol: Heparin bolus + drip, ASA 81mg po daily, Ticagrelor (Brilinta) 90mg PO bid (patient has ALLERGY to clopidogrel), Crestor 10mg po HS. - Lasix 40mg po daily - Cardio Dr. Lucas aware Pulmonary: - on BiPAP at night for hypercapneic respiratory failure - DuoNeb q6 - Budesonide 0.5mg q12 - Pulmonary consult to Dr. Frausto Renal: - hx of ESRD on hemodialysis - BUN/Cr 15/2.8 - urinalysis 03/05/18 reflects (+) UTI. urine culture negative. - Midodrine 5mg po MWF - Procit - Ferrlecit - Feosol - Paricalcitol - Renvela - Nephro-Mari - Nephro consult to Dr. Ortiz - Vascular surgery Dr. Medina consulted hematology: - H/H 9.6/30.9. continue to monitor. - Coags 03/05/18: PT 12.2, INR 1.1, APTT 44 (high) Gastrointestinal: - total bili/AST/ALT wnl - Alk Phos 146 (elevated) - Colace - Miralax - Lactulose 20gm po daily prn - Zofran 4mg po q8 Infectious disease: - currently being treated for UTI. final urine cultures 03/05 show no growth. - Cefepime 1gm IVPB q12 - blood culture (preliminary) 03/05/18 - negative - MRSA screen (03/08) pending - follow-up lactic acid - ID Dr. Rodas consulted Endocrine: - ISS medium dose Prophylaxis: - VTE: currently on heparin drip Discussed with Dr. Lexa Mathis. <Jean Mathis - Last Filed: 03/15/18 18:41> Meds - Medications Medications: Current Medications Acetaminophen (Tylenol 325mg Tab) 650 mg PO Q6 PRN PRN Reason: Pain, Mild (1-3) Last Admin: 03/14/18 20:09 Dose: 650 mg Alprazolam (Xanax) 0.25 mg PO Q6H PRN PRN Reason: Anxiety Last Admin: 03/13/18 00:05 Dose: 0.25 mg Aspirin (Aspirin Chewable) 81 mg PO DAILY [facility] Last Admin: 03/15/18 10:10 Dose: 81 mg Benzonatate (Tessalon Perles) 100 mg PO TID [facility] Last Admin: 03/15/18 17:44 Dose: 100 mg Budesonide (Pulmicort Respules) 0.5 mg INH RQ12 [facility] Last Admin: 03/15/18 08:25 Dose: 0.5 mg Docusate Sodium (Colace) 100 mg PO BID [facility] Last Admin: 03/15/18 18:23 Dose: 100 mg Epoetin Mario (Procrit) 20,000 unit IV TTS [facility] Last Admin: 03/14/18 14:43 Dose: 20,000 unit Furosemide (Lasix) 40 mg PO DAILY [facility] Last Admin: 03/15/18 10:14 Dose: 40 mg Heparin Sodium (Porcine) (Heparin) 5,000 units SC Q12H [facility] Last Admin: 03/14/18 20:09 Dose: 5,000 units Cefepime HCl 1 gm/ Dextrose 50 mls @ 100 mls/hr IVPB Q12H [facility] PRN Reason: Protocol Last Admin: 03/15/18 10:10 Dose: 100 mls/hr Insulin Human Regular (Novolin R) 0 unit SC ACHS [facility] PRN Reason: Protocol Last Admin: 03/15/18 17:39 Dose: Not Given Lactulose (Enulose) 20 gm PO DAILY PRN PRN Reason: FOR CONSTIPATION Lidocaine/Prilocaine (Emla) 0 gm TOP TuThSa PRN PRN Reason: FOR PAIN Last Admin: 03/09/18 08:56 Dose: 1 applic Lisinopril (Zestril) 2.5 mg PO DAILY [facility] Last Admin: 03/15/18 10:10 Dose: 2.5 mg Midodrine (Proamatine) 5 mg PO MWF [facility] Last Admin: 03/15/18 10:14 Dose: 5 mg Morphine Sulfate (Morphine) 1 mg IVP Q3H PRN PRN Reason: Pain, moderate (4-7) Last Admin: 03/13/18 21:49 Dose: 1 mg Ondansetron HCl (Zofran Tab) 4 mg PO Q8H PRN PRN Reason: Nausea/Vomiting Last Admin: 03/13/18 17:58 Dose: 4 mg Paricalcitol (Zemplar) 2 mcg IV TTS [facility] Last Admin: 03/14/18 16:07 Dose: 2 mcg Polyethylene Glycol (Miralax) 17 gm PO DAILY [facility] Last Admin: 03/15/18 10:10 Dose: Not Given Prednisone (Prednisone Tab) 50 mg PO DAILY [facility] Last Admin: 03/15/18 10:10 Dose: 50 mg Rosuvastatin Calcium (Crestor) 10 mg PO HS [facility] Last Admin: 03/14/18 21:24 Dose: 10 mg Saliva Substitute (First Magic Mouthwash) 10 ml PO QID [facility] Last Admin: 03/15/18 17:45 Dose: 10 ml Sevelamer Carbonate (Renvela) 800 mg PO TIDCC [facility] Last Admin: 03/15/18 17:43 Dose: 800 mg Ticagrelor (Brilinta) 90 mg PO BID [facility] Last Admin: 03/15/18 17:43 Dose: 90 mg Vitamin B Complex/Vit C/Folic Acid (Nephro-Mari) 1 tab PO DAILY [facility] Last Admin: 03/15/18 10:10 Dose: 1 tab Results - Vital Signs Recent Vital Signs: Last Vital Signs Temp 96 F L 03/15/18 17:02 Pulse 80 03/15/18 17:17 Resp 20 03/15/18 17:02 BP 164/45 H 03/15/18 17:02 Pulse Ox 100 03/15/18 17:02 - Labs Result Diagrams: 03/15/18 06:54 03/15/18 06:54 Labs: Laboratory Results - last 24 hr 03/14/18 03/15/18 03/15/18 21:40 06:54 06:54 WBC 5.3 RBC 3.16 L Hgb 10.4 L Hct 33.0 L MCV 104.7 H MCH 32.8 H MCHC 31.4 L RDW 19.0 H Plt Count 104 L MPV 9.1 Sodium 139 Potassium 4.1 Chloride 98 Carbon Dioxide 29 Anion Gap 16 BUN 16 Creatinine 2.9 H Est GFR ( Amer) 27 Est GFR (Non-Af Amer) 22 POC Glucose (mg/dL) 142 H Random Glucose 114 H Calcium 8.7 Total Bilirubin 0.6 AST 21 ALT 31 Alkaline Phosphatase 106 Total Protein 6.2 L Albumin 3.4 L Globulin 2.8 Albumin/Globulin Ratio 1.2 Assessment & Plan - Assessment and Plan (Free Text) Plan: Above patient seen and examined at bedside with above resident. Above resident documents my clinical management. - Date & Time Date: 03/08/18 Time: 18:41
--- NOTE | 2018-03-08 17:20 | CP.PCM.PN ---
Subjective - Date & Time of Evaluation Date of Evaluation: 03/08/18 Time of Evaluation: 10:00 - Subjective Subjective: admitted to ICU for chest pain denies fever Objective - Vital Signs/Intake and Output Vital Signs (last 24 hours): Temp Pulse Resp BP Pulse Ox 97.8 F 80 16 143/56 L 100 03/08/18 13:10 03/08/18 16:05 03/08/18 16:05 03/08/18 16:05 03/08/18 16:05 Intake and Output: 03/08/18 03/08/18 06:59 18:59 Intake Total 410 125 Balance 410 125 - Medications Medications: Current Medications Acetaminophen (Tylenol 325mg Tab) 650 mg PO Q6 PRN PRN Reason: Pain, Mild (1-3) Last Admin: 03/08/18 15:48 Dose: 650 mg Albuterol/Ipratropium (Duoneb 3 Mg/0.5 Mg (3 Ml) Ud) 3 ml INH RQ6 [facility] Last Admin: 03/08/18 07:35 Dose: 3 ml Alprazolam (Xanax) 0.25 mg PO Q6H PRN PRN Reason: Anxiety Last Admin: 03/08/18 08:45 Dose: 0.25 mg Aspirin (Aspirin Chewable) 81 mg PO DAILY [facility] Last Admin: 03/08/18 14:47 Dose: 81 mg Budesonide (Pulmicort Respules) 0.5 mg INH RQ12 [facility] Last Admin: 03/08/18 07:35 Dose: 0.5 mg Docusate Sodium (Colace) 100 mg PO BID [facility] Last Admin: 03/08/18 14:46 Dose: 100 mg Epoetin Mario (Procrit) 20,000 unit IV TTS [facility] Last Admin: 03/07/18 13:37 Dose: 20,000 unit Ferric Sodium Gluconate Complex (Ferrlecit) 125 mg IVPB TTS [facility] Stop: 03/15/18 10:01 Last Admin: 03/07/18 11:41 Dose: 125 mg Ferrous Sulfate (Feosol) 325 mg PO DAILY [facility] Last Admin: 03/08/18 14:46 Dose: 325 mg Furosemide (Lasix) 40 mg PO DAILY [facility] Last Admin: 03/08/18 14:47 Dose: 40 mg Cefepime HCl 1 gm/ Dextrose 50 mls @ 100 mls/hr IVPB Q12H [facility] PRN Reason: Protocol Last Admin: 03/08/18 08:57 Dose: 100 mls/hr Heparin Sodium/Sodium Chloride (Heparin 69189 Units/250ml 1/2 Normal Saline) 25 ,000 units in 250 mls @ 3.65 mls/hr IV .Q24H PRN; Protocol; 9 UNITS/KG/HR PRN Reason: PROTOCOL Last Admin: 03/08/18 15:03 Dose: 9 units/kg/hr, 3.65 mls/hr Insulin Human Regular (Novolin R) 0 unit SC ACHS [facility] PRN Reason: Protocol Last Admin: 03/08/18 08:13 Dose: Not Given Lactulose (Enulose) 20 gm PO DAILY PRN PRN Reason: FOR CONSTIPATION Midodrine (Proamatine) 5 mg PO MWF [facility] Last Admin: 03/08/18 08:56 Dose: 5 mg Ondansetron HCl (Zofran Tab) 4 mg PO Q8H PRN PRN Reason: Nausea/Vomiting Paricalcitol (Zemplar) 2 mcg IV TTS [facility] Last Admin: 03/07/18 13:38 Dose: 2 mcg Polyethylene Glycol (Miralax) 17 gm PO DAILY [facility] Last Admin: 03/08/18 14:47 Dose: 17 gm Rosuvastatin Calcium (Crestor) 10 mg PO HS [facility] Last Admin: 03/07/18 21:27 Dose: 10 mg Saliva Substitute (First Magic Mouthwash) 10 ml PO QID [facility] Sevelamer Carbonate (Renvela) 800 mg PO TIDCC [facility] Last Admin: 03/08/18 14:46 Dose: 800 mg Ticagrelor (Brilinta) 90 mg PO BID [facility] Vitamin B Complex/Vit C/Folic Acid (Nephro-Renaldo) 1 tab PO DAILY [facility] Last Admin: 03/08/18 15:03 Dose: 1 tab - Labs Labs: 03/08/18 08:18 03/08/18 08:18 PT 12.8 SECONDS (9.7-12.2) H 03/08/18 15:14 INR 1.2 03/08/18 15:14 APTT 41 SECONDS (21-34) H 03/08/18 15:14 - Constitutional Appears: Non-toxic, Chronically Ill - Head Exam Head Exam: NORMOCEPHALIC - Eye Exam Eye Exam: PERRL - ENT Exam ENT Exam: Mucous Membranes Dry - Neck Exam Neck Exam: absent: Lymphadenopathy - Respiratory Exam Respiratory Exam: Decreased Breath Sounds - Cardiovascular Exam Cardiovascular Exam: REGULAR RHYTHM - GI/Abdominal Exam GI & Abdominal Exam: Distended Assessment and Plan (1) Complicated urinary tract infection Status: Acute (2) ESRD on hemodialysis Status: Acute (3) Hypothermia Status: Acute (4) Respiratory acidosis Status: Acute (5) Acute hyperkalemia Status: Acute (6) Anemia Status: Acute (7) Arm pain Status: Acute (8) Atelectasis of right lung Status: Acute (9) CHF (congestive heart failure) Status: Acute (10) COPD (chronic obstructive pulmonary disease) Status: Acute - Assessment and Plan (Free Text) Assessment: cultures so far neg consider eval/ imaging when stable await cardio eval
--- NOTE | 2018-03-08 17:21 | CP.PCM.PN ---
Subjective - Date & Time of Evaluation Date of Evaluation: 03/08/18 Time of Evaluation: 17:20 - Subjective Subjective: pt is seen and examined, follow up consult is dictated #[id number] Objective - Vital Signs/Intake and Output Vital Signs (last 24 hours): Temp Pulse Resp BP Pulse Ox 97.8 F 80 16 143/56 L 100 03/08/18 13:10 03/08/18 16:05 03/08/18 16:05 03/08/18 16:05 03/08/18 16:05 Intake and Output: 03/08/18 03/08/18 06:59 18:59 Intake Total 410 125 Balance 410 125 - Medications Medications: Current Medications Acetaminophen (Tylenol 325mg Tab) 650 mg PO Q6 PRN PRN Reason: Pain, Mild (1-3) Last Admin: 03/08/18 15:48 Dose: 650 mg Albuterol/Ipratropium (Duoneb 3 Mg/0.5 Mg (3 Ml) Ud) 3 ml INH RQ6 [facility] Last Admin: 03/08/18 07:35 Dose: 3 ml Alprazolam (Xanax) 0.25 mg PO Q6H PRN PRN Reason: Anxiety Last Admin: 03/08/18 08:45 Dose: 0.25 mg Aspirin (Aspirin Chewable) 81 mg PO DAILY [facility] Last Admin: 03/08/18 14:47 Dose: 81 mg Budesonide (Pulmicort Respules) 0.5 mg INH RQ12 [facility] Last Admin: 03/08/18 07:35 Dose: 0.5 mg Docusate Sodium (Colace) 100 mg PO BID [facility] Last Admin: 03/08/18 14:46 Dose: 100 mg Epoetin Mario (Procrit) 20,000 unit IV TTS [facility] Last Admin: 03/07/18 13:37 Dose: 20,000 unit Ferric Sodium Gluconate Complex (Ferrlecit) 125 mg IVPB TTS [facility] Stop: 03/15/18 10:01 Last Admin: 03/07/18 11:41 Dose: 125 mg Ferrous Sulfate (Feosol) 325 mg PO DAILY [facility] Last Admin: 03/08/18 14:46 Dose: 325 mg Furosemide (Lasix) 40 mg PO DAILY [facility] Last Admin: 03/08/18 14:47 Dose: 40 mg Cefepime HCl 1 gm/ Dextrose 50 mls @ 100 mls/hr IVPB Q12H [facility] PRN Reason: Protocol Last Admin: 03/08/18 08:57 Dose: 100 mls/hr Heparin Sodium/Sodium Chloride (Heparin 99957 Units/250ml 1/2 Normal Saline) 25 ,000 units in 250 mls @ 3.65 mls/hr IV .Q24H PRN; Protocol; 9 UNITS/KG/HR PRN Reason: PROTOCOL Last Admin: 03/08/18 15:03 Dose: 9 units/kg/hr, 3.65 mls/hr Insulin Human Regular (Novolin R) 0 unit SC ACHS [facility] PRN Reason: Protocol Last Admin: 03/08/18 08:13 Dose: Not Given Lactulose (Enulose) 20 gm PO DAILY PRN PRN Reason: FOR CONSTIPATION Midodrine (Proamatine) 5 mg PO MWF [facility] Last Admin: 03/08/18 08:56 Dose: 5 mg Ondansetron HCl (Zofran Tab) 4 mg PO Q8H PRN PRN Reason: Nausea/Vomiting Paricalcitol (Zemplar) 2 mcg IV TTS [facility] Last Admin: 03/07/18 13:38 Dose: 2 mcg Polyethylene Glycol (Miralax) 17 gm PO DAILY [facility] Last Admin: 03/08/18 14:47 Dose: 17 gm Rosuvastatin Calcium (Crestor) 10 mg PO HS [facility] Last Admin: 03/07/18 21:27 Dose: 10 mg Saliva Substitute (First Magic Mouthwash) 10 ml PO QID [facility] Sevelamer Carbonate (Renvela) 800 mg PO TIDCC [facility] Last Admin: 03/08/18 14:46 Dose: 800 mg Ticagrelor (Brilinta) 90 mg PO BID [facility] Vitamin B Complex/Vit C/Folic Acid (Nephro-Renaldo) 1 tab PO DAILY [facility] Last Admin: 03/08/18 15:03 Dose: 1 tab - Labs Labs: 03/08/18 08:18 03/08/18 08:18 PT 12.8 SECONDS (9.7-12.2) H 03/08/18 15:14 INR 1.2 03/08/18 15:14 APTT 41 SECONDS (21-34) H 03/08/18 15:14
[2018-03-08] MEDS: Mag&Al/Simet/Diphen/Lido 237 ML KIT PO SCH ×2 (19:04→22:38)
[2018-03-08] MEDS: Enoxaparin 30 mg Syringe SC SCH (19:59)
[2018-03-08 22:14] LABS: CK-MB 1.3 ng/mL (0.0-3.38); TROPONIN I 0.015 ng/mL (0.00-0.120)
--- NOTE | 2018-03-09 00:24 | CARD ---
APPROVED REPORT Date of service: 03/08/2018 EXAM: Two-dimensional and M-mode echocardiogram with Doppler and color Doppler. Other Information Quality : TDSRhythm : INDICATION Abnormal EKG/Arrhythmia Chest Pain 2D DIMENSIONS IVSd1.0 (0.7-1.1cm)LVDd4.3 (3.9-5.9cm) PWd1.1 (0.7-1.1cm)LVDs2.7 (2.5-4.0cm) FS (%) 36.8 %LVEF (%)67.0 (>50%) M-Mode DIMENSIONS Left Atrium (MM)4.65 (2.5-4.0cm)IVSd1.18 (0.7-1.1cm) Aortic Root3.49 (2.2-3.7cm)LVDd3.90 (4.0-5.6cm) Aortic Cusp Exc.2.04 (1.5-2.0cm)PWd1.24 (0.7-1.1cm) FS (%) 28 %LVDs2.80 (2.0-3.8cm) TAPSE9.64 cmLVEF (%)55 (>50%) Mitral Valve MV E Stchgggj621.7cm/sMV A Jhkptxvi29.7cm/sE/A ratio4.1 TDI E/Lateral E'0.0E/Medial E'0.0 Tricuspid Valve TR Peak [id number]/sTR Peak [id number] LEFT VENTRICLE The left ventricle is normal size. There is normal left ventricular wall thickness. Left ventricle systolic function is low normal. The Ejection Fraction is 50-55%. Regional wall motion abnormalities noted. There is mild to moderate hypokinesis in the apex. The left ventricular diastolic function is normal. RIGHT VENTRICLE The right ventricle is normal size. There is normal right ventricular wall thickness. The right ventricular systolic function is normal. ATRIA The left atrium size is normal. The right atrium size is normal. The interatrial septum is intact with no evidence for an atrial septal defect. AORTIC VALVE The aortic valve is thickened but opens well. Nodular calcification is noted. No aortic regurgitation is present. There is no aortic valvular stenosis. There is no aortic valvular vegetation. MITRAL VALVE Mitral annular calcification is mild. There is no evidence of mitral valve prolapse. There is no mitral valve stenosis. Mitral regurgitation is mild. TRICUSPID VALVE The tricuspid valve is normal in structure. There is mild to moderate tricuspid regurgitation. Right ventricular systolic pressure is estimated at 40-50 mmHg. There is mild-moderate pulmonary hypertension. PULMONIC VALVE The pulmonic valve is not well visualized. There is no pulmonic valvular regurgitation. GREAT VESSELS The aortic root is normal in size. PERICARDIAL EFFUSION There is no significant pericardial effusion. <Conclusion> Coronary artery disease. Left ventricle systolic function is low normal. The Ejection Fraction is 50-55%. No aortic regurgitation is present. Mitral regurgitation is mild. There is mild to moderate tricuspid regurgitation. There is mild to moderate tricuspid regurgitation. There is mild-moderate pulmonary hypertension. There is no pulmonic valvular regurgitation.
[2018-03-09] MEDS: Albuterol-Ipratrop 3 mg / 0.5 (3 ml) UD INH SCH ×4 (01:44→18:29)
--- NOTE | 2018-03-09 02:58 | PN ---
Copied To: Martin Ortiz MD Attending MD: Martin Ortiz MD DATE: 03/08/2018 FOLLOWUP RENAL CONSULTATION LOCATION: The patient is located in ICU, bed 3. REQUESTED BY: Carlos Andrews DO REASON FOR FOLLOWUP: End-stage renal disease, for continuation of hemodialysis. SUBJECTIVE: Mr. Gonzales is a 67-year-old elderly obese Palestinian male with a past medical history significant for longstanding hypertension, diabetes, coronary artery disease, status post CABG, CHF, COPD, CVA with left-sided weakness, resident of jail for the last few years who was sent to the hospital after the patient was found unresponsive and started CPR and then transferred to the emergency room. As per the EMS, the patient was drowsy but arousable on arrival. The patient was also found to have elevated pCO2 and started on BiPAP. The patient is not in distress. The patient also has a bleeding from the AV graft site on multiple occasions and requested vascular surgery evaluation. The patient was scheduled for a fistulogram today and also noted to have allergic to IV dye. The patient was given Solu-Medrol and scheduled for fistulogram. The patient developed shortness of breath and chest pain during the procedure, and the procedure was discontinued and transferred to ICU. The patient is on nasal cannula, not in distress. Occasional cough is present. Denies any chest pain or palpitation. PHYSICAL EXAMINATION: VITAL SIGNS: As follows: Blood pressure 164/40, pulse about 80, respirations 14, and temperature 97.8. Height 5 feet 6 inches. Weight 89.6 kg. GENERAL: Mr. Gonzales is a 67-year-old elderly obese Palestinian male, moderately built, moderately nourished, not in distress. HEENT: Pupils are normal and reactive to light and accommodation. Conjunctivae pink. Sclerae anicteric. Tongue is moist and trachea is midline. LUNGS: Symmetric on both sides. Bilateral breath sounds present. Bilateral basal crackles present. CARDIOVASCULAR SYSTEM: [place] at the fifth intercostal space, midclavicular line. S1, S2 audible. No murmur or gallop. ABDOMEN: Normal in appearance. Soft, tympanitic. No guarding. No rigidity. No hepatosplenomegaly. CENTRAL NERVOUS SYSTEM: The patient is alert, awake and oriented x3. Nonfocal neuro examination on the right side. The patient has weakness in both left upper extremity and left lower extremity secondary to CVA. EXTREMITIES: No cyanosis, no clubbing. The patient has 1 to 2+ edema in both lower extremities. MEDICATIONS: His current medications include as follows: Aspirin 81 mg daily, Brilinta, cefepime, Colace, Crestor, DuoNeb inhaler, lactulose, ferrous sulfate, Enulose, Lasix, Nephro-Renaldo, midodrine, Procrit, Pulmicort, Renvela, Xanax and also Zemplar, lisinopril and Zofran. LABORATORY DATA: Include as follows as of 03/08/2018: WBC 3.8, hemoglobin 9.6, hematocrit is 30.9, platelets 145. PT 12.8, PTT 41. Sodium 141, potassium 5.4, chloride 101, CO2 of 27, BUN 15, creatinine 2.8, glucose 151, calcium 9.2. Total bili 0.5, AST 22, ALT 27, alkaline phosphatase 146. CPK . Troponin 0.015. Total protein 7.1, albumin is 3.9. ASSESSMENT AND PLAN: In summary, Mr. Gonzales is a 67-year-old elderly Palestinian male with a history of longstanding hypertension, diabetes, coronary artery disease, status post coronary artery bypass grafting, cerebrovascular accident with left-sided weakness, and end-stage renal disease, on hemodialysis three times a week who was admitted with a chief complaint of status post questionable cardiac arrest and cardiopulmonary resuscitation, was brought into the hospital with lethargy. The patient does not remember what happened until he was moved to the room on bilevel positive airway pressure with elevated pCO2. 1. End-stage renal disease. Continue hemodialysis three times a week, Sunday, and Sunday. 2. Hypertension. Blood pressure is stable with midodrine. Continue midodrine. 3. Congestive heart failure, secondary to fluid overload and noncompliance with the diet. Advised to watch diet and fluid. Fluid restriction to 1 liter per day. We will schedule for hemodialysis in the morning, and we will try to ultrafiltrate as much as the patient can tolerate. Continue followup with Vascular Surgery for any intervention for the left upper extremity arteriovenous graft. Continue all his current medications. Thank you for allowing me to participate in your patient's care. Martin Ortiz MD
[2018-03-09 06:41] LABS: BASO % 0.2 % (0.0-2.0); EOS % 0.1 % (0.0-4.0); HEMOGLOBIN 9.2 g/dL (12.0-18.0); LYMPH # 0.6 K/uL (1.0-4.3); LYMPH % 14.4 % (20.0-40.0); MEAN CELL VOLUME 102.9 fL (80.0-94.0); MEAN CORPUSCULAR HEMOGLOBIN 31.8 pg (27.0-31.0); MEAN PLATELET VOLUME 8.3 fL (7.2-11.7); MONO # 0.4 K/uL (0.0-0.8); MONO % 10.5 % (0.0-10.0); NEUT # 3.2 K/uL (1.8-7.0); NEUT % 74.8 % (50.0-75.0); NRBC % 0.8 % (0.0-2.0); RBC 2.9 Mil/uL (4.40-5.90); RED CELL DISTRIBUTION WIDTH 17.7 % (11.5-14.5); WHITE BLOOD COUNT 4.2 K/uL (4.8-10.8)
[2018-03-09 06:49] LABS: INR 1.1; PROTHROMBIN TIME 12.4 SECONDS (9.7-12.2)
[2018-03-09 07:12] LABS: CK-MB 1.17 ng/mL (0.0-3.38); TROPONIN I 0.02 ng/mL (0.00-0.120)
[2018-03-09 07:23] LABS: ALB/GLOB RATIO 1.1 (1.0-2.1); ALBUMIN 3.5 g/dL (3.5-5.0); CALCIUM 9.2 mg/dl (8.6-10.4)
[2018-03-09] MEDS: (Novolin R) Insulin Human Regular 100 units/ml vial SC SCH ×4 (07:30→22:07)
[2018-03-09] MEDS: Budesonide 0.5 mg/2 ml Inhal Susp UD INH SCH ×2 (08:34→18:29)
[2018-03-09] MEDS ORDERED: Lidocaine/Prilocaine 2.5%-2.5% Cream (5 gm) TOP PRN (08:34)
[2018-03-09] MEDS: Mag&Al/Simet/Diphen/Lido 237 ML KIT PO SCH ×4 (09:21→22:06)
[2018-03-09] MEDS: Ferric Sodium Gluconat Complex 62.5 mg/5 ml Vial IVPB SCH (09:22)
[2018-03-09] MEDS: POLYETHYLENE GLYCOL 3350 17 GM/Dose PACKET PO SCH (09:30)
[2018-03-09] MEDS: Epoetin Alfa Dialysis 20000 UNIT/ML Inj IV SCH (13:05)
[2018-03-09] MEDS: Multivitamin Vitamin B Complex (Nephro-Vite) Tab PO SCH (13:18)
[2018-03-09] MEDS: Paricalcitol 2 mcg/ml Inj IV SCH (13:20)
--- NOTE | 2018-03-09 13:56 | PN ---
Copied To: Carlos Andrews DO Attending MD: Carlos Andrews DO DATE: 03/09/2018 SUBJECTIVE: He was supposed to go for procedure and had chest pain and coughing. He has been coughing a lot. He says he gets chest pain from the coughing. I will put him on a good cough medicine for that. He is otherwise comfortable. No chest pain now in the intensive care unit. The procedure was done. He was moved to intensive care unit. He was in better spirits, comfortable at this time. PHYSICAL EXAMINATION: VITAL SIGNS: He has a 97.8 temp, 80 pulse, 154/47 blood pressure, 13 respiratory rate, and 100% O2 sat. HEENT: Head is atraumatic and normocephalic. Throat is moist. NECK: Supple. HEART: Regular rate. LUNGS: Decreased breath sounds, but clear to auscultation. ABDOMEN: Soft, nontender. Positive bowel sounds. EXTREMITIES: Have no edema. MEDICATIONS: He is on aspirin, Brilinta, cefepime, Colace, Crestor, DuoNebs, Enulose, Feosol, Prilosec, saliva substitute, heparin IV, Lasix, MiraLax, Nephro-Renaldo, Novolin, ProAmatine, Procrit, Pulmicort, Renvela, Tylenol, Xanax, Zemplar, Zestril, and Zofran. RECENT LABORATORY DATA: He has a 4.2 white count, 9.2 hemoglobin, 29.8 hematocrit with a 145 platelets. INR is 1.1. He has a 140 sodium, potassium dialysis, BUN 27, creatinine 3.4, GFR is 18, sugar is 119, lactate acid is 0.9, calcium 9.2, phosphate 3.6, magnesium is 2.5, total bili is 0.5. AST is 41, ALT is 26, alk phos 102. His troponin I was 0.015 with 0.02, total protein 6.6. Urine was positive. ASSESSMENT AND PLAN: He has been seen by Renal, Infectious Disease, Cardiology, Vascular, Pulmonary. We will check his labs. I am going to put him on Tessalon Perles check his labs. Hopefully, he can resume and get the procedure done with Dr. Medina. Carlos Andrews DO [facility]
--- NOTE | 2018-03-09 16:37 | CP.PCM.CON ---
History of Present Illness - History of Present Illness History of Present Illness: CC unresponsive HPI 67-year-old male with history of end-stage renal disease on hemodialysis, COPD, depression, CVA, coronary artery disease status post CABG, sleep apnea who presented to emergency room after he was found unresponsive while receiving dialysis. Also patient fistula started bleeding. In the emergency room patient was placed on BiPAP for hypercapnic respiratory failure. patient became much more aphasic and responsive Review of Systems - Constitutional Constitutional: Daytime Sleepiness, Lethargy, Weakness - Cardiovascular Cardiovascular: Chest Pain, Dyspnea on Exertion. absent: Leg Edema, Pedal Edema - Respiratory Respiratory: Dyspnea on Exertion, Pain with Coughing - Gastrointestinal Gastrointestinal: absent: Abdominal Pain - Musculoskeletal Musculoskeletal: absent: Back Pain, Joint Swelling - Neurological Neurological: Lack of Coordination Past Patient History - Infectious Disease Hx of Infectious Diseases: None - Past Medical History & Family History Past Medical History?: Yes - Past Social History Smoking Status: Never Smoked - CARDIAC Hx Congestive Heart Failure: Yes Hx Hypercholesterolemia: Yes Hx Hypertension: Yes - PULMONARY Hx Chronic Obstructive Pulmonary Disease (COPD): Yes - NEUROLOGICAL HX Cerebrovascular Accident: Yes (L UE AND B/L LE WEAKNESS) - HEENT Hx HEENT Problems: Yes Hx Cataracts: Yes - RENAL Date of Last Dialysis Treatment: 03/05/18 - ENDOCRINE/METABOLIC Hx Diabetes Mellitus Type 2: Yes - HEMATOLOGICAL/ONCOLOGICAL Hx Blood Disorders: Yes Hx Anemia: Yes - INTEGUMENTARY Hx Dermatological Problems: Yes Other/Comment: healed sacral ulcer - MUSCULOSKELETAL/RHEUMATOLOGICAL Hx Falls: Yes - GASTROINTESTINAL Hx Gastrointestinal Disorders: Yes Other/Comment: HX: DYSPHAGIA,UNSPECIFIED - GENITOURINARY/GYNECOLOGICAL Hx Genitourinary Disorders: No - PSYCHIATRIC Hx Substance Use: No - SURGICAL HISTORY Hx Surgeries: Yes Hx Coronary Artery Bypass Graft: Yes - ANESTHESIA Hx Anesthesia: Yes Hx Anesthesia Reactions: No Hx Malignant Hyperthermia: No Meds Allergies/Adverse Reactions: Allergies Allergy/AdvReac Type Severity Reaction Status Date / Time iodine Allergy Intermediate RASH Verified 03/05/18 15:49 clopidogrel [From Plavix] Allergy SHORTNESS Verified 03/05/18 15:49 OF BREATH clopidogrel bisulfate Allergy UNKNOWN Verified 03/05/18 17:14 [From Plavix] penicillin G Allergy SHORTNESS Verified 03/05/18 15:49 OF BREATH Penicillins Allergy UNKNOWN Verified 03/05/18 15:49 IV DYE Allergy unknown Uncoded 03/05/18 15:49 - Medications Medications: Current Medications Acetaminophen (Tylenol 325mg Tab) 650 mg PO Q6 PRN PRN Reason: Pain, Mild (1-3) Last Admin: 03/09/18 15:42 Dose: 650 mg Albuterol/Ipratropium (Duoneb 3 Mg/0.5 Mg (3 Ml) Ud) 3 ml INH RQ6 [facility] Last Admin: 03/09/18 13:36 Dose: Not Given Alprazolam (Xanax) 0.25 mg PO Q6H PRN PRN Reason: Anxiety Last Admin: 03/08/18 22:33 Dose: 0.25 mg Aspirin (Aspirin Chewable) 81 mg PO DAILY [facility] Last Admin: 03/09/18 09:21 Dose: 81 mg Benzonatate (Tessalon Perles) 100 mg PO TID [facility] Last Admin: 03/09/18 15:46 Dose: 100 mg Budesonide (Pulmicort Respules) 0.5 mg INH RQ12 [facility] Last Admin: 03/09/18 08:34 Dose: Not Given Docusate Sodium (Colace) 100 mg PO BID [facility] Last Admin: 03/09/18 09:30 Dose: Not Given Epoetin Mario (Procrit) 20,000 unit IV TTS [facility] Last Admin: 03/09/18 13:05 Dose: 20,000 unit Ferric Sodium Gluconate Complex (Ferrlecit) 125 mg IVPB TTS [facility] Stop: 03/15/18 10:01 Last Admin: 03/09/18 09:22 Dose: 125 mg Ferrous Sulfate (Feosol) 325 mg PO DAILY [facility] Last Admin: 03/09/18 09:21 Dose: 325 mg Furosemide (Lasix) 40 mg PO DAILY [facility] Last Admin: 03/09/18 09:21 Dose: 40 mg Cefepime HCl 1 gm/ Dextrose 50 mls @ 100 mls/hr IVPB Q12H [facility] PRN Reason: Protocol Last Admin: 03/09/18 15:50 Dose: 100 mls/hr Heparin Sodium/Sodium Chloride (Heparin 22179 Units/250ml 1/2 Normal Saline) 25 ,000 units in 250 mls @ 3.65 mls/hr IV .Q24H PRN; Protocol; 9 UNITS/KG/HR PRN Reason: PROTOCOL Last Titration: 03/09/18 15:54 Dose: 15 units/kg/hr, 6.083 mls/hr Insulin Human Regular (Novolin R) 0 unit SC ACHS [facility] PRN Reason: Protocol Last Admin: 03/09/18 11:30 Dose: Not Given Lactulose (Enulose) 20 gm PO DAILY PRN PRN Reason: FOR CONSTIPATION Lidocaine/Prilocaine (Emla) 0 gm TOP TuThSa PRN PRN Reason: FOR PAIN Last Admin: 03/09/18 08:56 Dose: 1 applic Lisinopril (Zestril) 2.5 mg PO DAILY [facility] Last Admin: 03/09/18 09:21 Dose: 2.5 mg Midodrine (Proamatine) 5 mg PO MWF [facility] Last Admin: 03/08/18 08:56 Dose: 5 mg Ondansetron HCl (Zofran Tab) 4 mg PO Q8H PRN PRN Reason: Nausea/Vomiting Paricalcitol (Zemplar) 2 mcg IV TTS [facility] Last Admin: 03/09/18 13:20 Dose: 2 mcg Polyethylene Glycol (Miralax) 17 gm PO DAILY [facility] Last Admin: 03/09/18 09:30 Dose: Not Given Rosuvastatin Calcium (Crestor) 10 mg PO HS [facility] Last Admin: 03/08/18 22:33 Dose: 10 mg Saliva Substitute (First Magic Mouthwash) 10 ml PO QID [facility] Last Admin: 03/09/18 13:16 Dose: 10 ml Sevelamer Carbonate (Renvela) 800 mg PO TIDCC [facility] Last Admin: 03/09/18 13:19 Dose: 800 mg Ticagrelor (Brilinta) 90 mg PO BID [facility] Last Admin: 03/09/18 09:21 Dose: 90 mg Vitamin B Complex/Vit C/Folic Acid (Nephro-Renaldo) 1 tab PO DAILY [facility] Last Admin: 03/09/18 13:18 Dose: 1 tab Physical Exam - Constitutional Appears: Chronically Ill - Head Exam Head Exam: NORMAL INSPECTION - Eye Exam Eye Exam: absent: Scleral icterus - ENT Exam ENT Exam: Mucous Membranes Moist - Neck Exam Neck exam: Positive for: Full Rom - Respiratory Exam Respiratory Exam: Decreased Breath Sounds - Cardiovascular Exam Cardiovascular Exam: REGULAR RHYTHM - GI/Abdominal Exam GI & Abdominal Exam: Soft - Extremities Exam Extremities exam: Negative for: pedal edema - Neurological Exam Neurological exam: Alert, Oriented x3 Results - Vital Signs Recent Vital Signs: Last Vital Signs Temp 97.6 F 03/09/18 15:20 Pulse 80 03/09/18 15:20 Resp 16 03/09/18 15:20 BP 137/36 L 03/09/18 15:00 Pulse Ox 100 03/09/18 15:20 - Labs Result Diagrams: 03/09/18 06:35 03/09/18 06:33 Labs: Laboratory Results - last 24 hr 03/08/18 03/08/18 03/09/18 21:45 21:45 06:33 WBC RBC Hgb Hct MCV MCH MCHC RDW Plt Count MPV Neut % (Auto) Lymph % (Auto) [place] % (Auto) Eos % (Auto) Baso % (Auto) Neut # (Auto) Lymph # (Auto) [place] # (Auto) Eos # (Auto) Baso # (Auto) PT INR APTT 38 H Sodium 140 Potassium 5.6 H Chloride 101 Carbon Dioxide 29 Anion Gap 15 BUN 27 H Creatinine 3.4 H Est GFR ( Amer) 22 Est GFR (Non-Af Amer) 18 Random Glucose 119 H Lactic Acid Calcium 9.2 Phosphorus 3.6 Magnesium 2.5 H Total Bilirubin 0.5 AST 41 ALT 26 Alkaline Phosphatase 102 Total Creatine Kinase 31 L CK-MB (Mass) 1.30 Troponin I 0.0150 Total Protein 6.6 Albumin 3.5 Globulin 3.1 Albumin/Globulin Ratio 1.1 03/09/18 03/09/18 03/09/18 06:33 06:35 06:35 WBC 4.2 L RBC 2.90 L Hgb 9.2 L Hct 29.8 L MCV 102.9 H MCH 31.8 H MCHC 31.0 L RDW 17.7 H Plt Count 145 MPV 8.3 Neut % (Auto) 74.8 Lymph % (Auto) 14.4 L [place] % (Auto) 10.5 H Eos % (Auto) 0.1 Baso % (Auto) 0.2 Neut # (Auto) 3.2 Lymph # (Auto) 0.6 L [place] # (Auto) 0.4 Eos # (Auto) 0.0 Baso # (Auto) 0.0 PT INR APTT Sodium Potassium Chloride Carbon Dioxide Anion Gap BUN Creatinine Est GFR ( Amer) Est GFR (Non-Af Amer) Random Glucose Lactic Acid 0.9 Calcium Phosphorus Magnesium Total Bilirubin AST ALT Alkaline Phosphatase Total Creatine Kinase 23 L CK-MB (Mass) 1.17 Troponin I 0.0200 Total Protein Albumin Globulin Albumin/Globulin Ratio 03/09/18 03/09/18 06:35 13:28 WBC RBC Hgb Hct MCV MCH MCHC RDW Plt Count MPV Neut % (Auto) Lymph % (Auto) [place] % (Auto) Eos % (Auto) Baso % (Auto) Neut # (Auto) Lymph # (Auto) [place] # (Auto) Eos # (Auto) Baso # (Auto) PT 12.4 H INR 1.1 APTT 37 H 35 H Sodium Potassium Chloride Carbon Dioxide Anion Gap BUN Creatinine Est GFR ( Amer) Est GFR (Non-Af Amer) Random Glucose Lactic Acid Calcium Phosphorus Magnesium Total Bilirubin AST ALT Alkaline Phosphatase Total Creatine Kinase CK-MB (Mass) Troponin I Total Protein Albumin Globulin Albumin/Globulin Ratio Assessment & Plan - Assessment and Plan (Free Text) Assessment: Altered mental status secondary to Metabolic encephalopathy Respiratory failure secondary to [place] CAD CKD Hx of Multiple CVA HTN Plan: Pulm/ID consult Renal consult Vascular consult - Date & Time Date: 03/06/18 Time: 08:40
--- NOTE | 2018-03-09 16:50 | CP.PCM.PN ---
Subjective - Date & Time of Evaluation Date of Evaluation: 03/09/18 Time of Evaluation: 09:00 - Subjective Subjective: Pt was transferred to CCU for chest pain during fistulogram Now he's awake, lethargic dialysis in progress Tele- sinus rhythm Objective - Vital Signs/Intake and Output Vital Signs (last 24 hours): Temp Pulse Resp BP Pulse Ox 97.6 F 80 16 137/36 L 100 03/09/18 15:20 03/09/18 15:20 03/09/18 15:20 03/09/18 15:00 03/09/18 15:20 Intake and Output: 03/09/18 03/09/18 06:59 18:59 Intake Total 124.0 477.2 Balance 124.0 477.2 - Medications Medications: Current Medications Acetaminophen (Tylenol 325mg Tab) 650 mg PO Q6 PRN PRN Reason: Pain, Mild (1-3) Last Admin: 03/09/18 15:42 Dose: 650 mg Albuterol/Ipratropium (Duoneb 3 Mg/0.5 Mg (3 Ml) Ud) 3 ml INH RQ6 [facility] Last Admin: 03/09/18 13:36 Dose: Not Given Alprazolam (Xanax) 0.25 mg PO Q6H PRN PRN Reason: Anxiety Last Admin: 03/08/18 22:33 Dose: 0.25 mg Aspirin (Aspirin Chewable) 81 mg PO DAILY [facility] Last Admin: 03/09/18 09:21 Dose: 81 mg Benzonatate (Tessalon Perles) 100 mg PO TID [facility] Last Admin: 03/09/18 15:46 Dose: 100 mg Budesonide (Pulmicort Respules) 0.5 mg INH RQ12 [facility] Last Admin: 03/09/18 08:34 Dose: Not Given Docusate Sodium (Colace) 100 mg PO BID [facility] Last Admin: 03/09/18 09:30 Dose: Not Given Epoetin Mario (Procrit) 20,000 unit IV TTS [facility] Last Admin: 03/09/18 13:05 Dose: 20,000 unit Ferric Sodium Gluconate Complex (Ferrlecit) 125 mg IVPB TTS [facility] Stop: 03/15/18 10:01 Last Admin: 03/09/18 09:22 Dose: 125 mg Ferrous Sulfate (Feosol) 325 mg PO DAILY [facility] Last Admin: 03/09/18 09:21 Dose: 325 mg Furosemide (Lasix) 40 mg PO DAILY [facility] Last Admin: 03/09/18 09:21 Dose: 40 mg Cefepime HCl 1 gm/ Dextrose 50 mls @ 100 mls/hr IVPB Q12H [facility] PRN Reason: Protocol Last Admin: 03/09/18 15:50 Dose: 100 mls/hr Heparin Sodium/Sodium Chloride (Heparin 44170 Units/250ml 1/2 Normal Saline) 25 ,000 units in 250 mls @ 3.65 mls/hr IV .Q24H PRN; Protocol; 9 UNITS/KG/HR PRN Reason: PROTOCOL Last Titration: 03/09/18 15:54 Dose: 15 units/kg/hr, 6.083 mls/hr Insulin Human Regular (Novolin R) 0 unit SC ACHS [facility] PRN Reason: Protocol Last Admin: 03/09/18 16:30 Dose: Not Given Lactulose (Enulose) 20 gm PO DAILY PRN PRN Reason: FOR CONSTIPATION Lidocaine/Prilocaine (Emla) 0 gm TOP TuThSa PRN PRN Reason: FOR PAIN Last Admin: 03/09/18 08:56 Dose: 1 applic Lisinopril (Zestril) 2.5 mg PO DAILY [facility] Last Admin: 03/09/18 09:21 Dose: 2.5 mg Midodrine (Proamatine) 5 mg PO MWF [facility] Last Admin: 03/08/18 08:56 Dose: 5 mg Ondansetron HCl (Zofran Tab) 4 mg PO Q8H PRN PRN Reason: Nausea/Vomiting Paricalcitol (Zemplar) 2 mcg IV TTS [facility] Last Admin: 03/09/18 13:20 Dose: 2 mcg Polyethylene Glycol (Miralax) 17 gm PO DAILY [facility] Last Admin: 03/09/18 09:30 Dose: Not Given Rosuvastatin Calcium (Crestor) 10 mg PO HS [facility] Last Admin: 03/08/18 22:33 Dose: 10 mg Saliva Substitute (First Magic Mouthwash) 10 ml PO QID [facility] Last Admin: 03/09/18 13:16 Dose: 10 ml Sevelamer Carbonate (Renvela) 800 mg PO TIDCC [facility] Last Admin: 03/09/18 13:19 Dose: 800 mg Ticagrelor (Brilinta) 90 mg PO BID [facility] Last Admin: 03/09/18 09:21 Dose: 90 mg Vitamin B Complex/Vit C/Folic Acid (Nephro-Renaldo) 1 tab PO DAILY [facility] Last Admin: 03/09/18 13:18 Dose: 1 tab - Labs Labs: 03/09/18 06:35 03/09/18 06:33 PT 12.4 SECONDS (9.7-12.2) H 03/09/18 06:35 INR 1.1 03/09/18 06:35 APTT 35 SECONDS (21-34) H 03/09/18 13:28 - Constitutional Appears: Chronically Ill - Head Exam Head Exam: NORMAL INSPECTION - Eye Exam Eye Exam: absent: Scleral icterus - Neck Exam Neck Exam: Full ROM - Respiratory Exam Respiratory Exam: Decreased Breath Sounds - Cardiovascular Exam Cardiovascular Exam: REGULAR RHYTHM - GI/Abdominal Exam GI & Abdominal Exam: Soft - Extremities Exam Extremities Exam: absent: Pedal Edema - Neurological Exam Neurological Exam: Alert Assessment and Plan - Assessment and Plan (Free Text) Assessment: ACS Acute respiratory failure ESRD EDITH T2dm Plan: Consider cath on Sunday Cont dialysis nebulizer tx Abtx as per ID
--- NOTE | 2018-03-09 16:57 | CP.PCM.PN ---
Subjective - Date & Time of Evaluation Date of Evaluation: 03/08/18 Time of Evaluation: 08:00 - Subjective Subjective: pt chest pain free Awake, alert for fistulogram Objective - Vital Signs/Intake and Output Vital Signs (last 24 hours): Temp Pulse Resp BP Pulse Ox 97.6 F 80 16 137/36 L 100 03/09/18 15:20 03/09/18 15:20 03/09/18 15:20 03/09/18 15:00 03/09/18 15:20 Intake and Output: 03/09/18 03/09/18 06:59 18:59 Intake Total 124.0 477.2 Balance 124.0 477.2 - Medications Medications: Current Medications Acetaminophen (Tylenol 325mg Tab) 650 mg PO Q6 PRN PRN Reason: Pain, Mild (1-3) Last Admin: 03/09/18 15:42 Dose: 650 mg Albuterol/Ipratropium (Duoneb 3 Mg/0.5 Mg (3 Ml) Ud) 3 ml INH RQ6 [facility] Last Admin: 03/09/18 13:36 Dose: Not Given Alprazolam (Xanax) 0.25 mg PO Q6H PRN PRN Reason: Anxiety Last Admin: 03/08/18 22:33 Dose: 0.25 mg Aspirin (Aspirin Chewable) 81 mg PO DAILY [facility] Last Admin: 03/09/18 09:21 Dose: 81 mg Benzonatate (Tessalon Perles) 100 mg PO TID [facility] Last Admin: 03/09/18 15:46 Dose: 100 mg Budesonide (Pulmicort Respules) 0.5 mg INH RQ12 [facility] Last Admin: 03/09/18 08:34 Dose: Not Given Docusate Sodium (Colace) 100 mg PO BID [facility] Last Admin: 03/09/18 09:30 Dose: Not Given Epoetin Mario (Procrit) 20,000 unit IV TTS [facility] Last Admin: 03/09/18 13:05 Dose: 20,000 unit Ferric Sodium Gluconate Complex (Ferrlecit) 125 mg IVPB TTS [facility] Stop: 03/15/18 10:01 Last Admin: 03/09/18 09:22 Dose: 125 mg Ferrous Sulfate (Feosol) 325 mg PO DAILY [facility] Last Admin: 03/09/18 09:21 Dose: 325 mg Furosemide (Lasix) 40 mg PO DAILY [facility] Last Admin: 03/09/18 09:21 Dose: 40 mg Cefepime HCl 1 gm/ Dextrose 50 mls @ 100 mls/hr IVPB Q12H [facility] PRN Reason: Protocol Last Admin: 03/09/18 15:50 Dose: 100 mls/hr Heparin Sodium/Sodium Chloride (Heparin 26808 Units/250ml 1/2 Normal Saline) 25 ,000 units in 250 mls @ 3.65 mls/hr IV .Q24H PRN; Protocol; 9 UNITS/KG/HR PRN Reason: PROTOCOL Last Titration: 03/09/18 15:54 Dose: 15 units/kg/hr, 6.083 mls/hr Insulin Human Regular (Novolin R) 0 unit SC ACHS [facility] PRN Reason: Protocol Last Admin: 03/09/18 16:30 Dose: Not Given Lactulose (Enulose) 20 gm PO DAILY PRN PRN Reason: FOR CONSTIPATION Lidocaine/Prilocaine (Emla) 0 gm TOP TuThSa PRN PRN Reason: FOR PAIN Last Admin: 03/09/18 08:56 Dose: 1 applic Lisinopril (Zestril) 2.5 mg PO DAILY [facility] Last Admin: 03/09/18 09:21 Dose: 2.5 mg Midodrine (Proamatine) 5 mg PO MWF [facility] Last Admin: 03/08/18 08:56 Dose: 5 mg Ondansetron HCl (Zofran Tab) 4 mg PO Q8H PRN PRN Reason: Nausea/Vomiting Paricalcitol (Zemplar) 2 mcg IV TTS [facility] Last Admin: 03/09/18 13:20 Dose: 2 mcg Polyethylene Glycol (Miralax) 17 gm PO DAILY [facility] Last Admin: 03/09/18 09:30 Dose: Not Given Rosuvastatin Calcium (Crestor) 10 mg PO HS [facility] Last Admin: 03/08/18 22:33 Dose: 10 mg Saliva Substitute (First Magic Mouthwash) 10 ml PO QID [facility] Last Admin: 03/09/18 13:16 Dose: 10 ml Sevelamer Carbonate (Renvela) 800 mg PO TIDCC [facility] Last Admin: 03/09/18 13:19 Dose: 800 mg Ticagrelor (Brilinta) 90 mg PO BID [facility] Last Admin: 03/09/18 09:21 Dose: 90 mg Vitamin B Complex/Vit C/Folic Acid (Nephro-Renaldo) 1 tab PO DAILY [facility] Last Admin: 03/09/18 13:18 Dose: 1 tab - Labs Labs: 03/09/18 06:35 03/09/18 06:33 PT 12.4 SECONDS (9.7-12.2) H 03/09/18 06:35 INR 1.1 03/09/18 06:35 APTT 35 SECONDS (21-34) H 03/09/18 13:28 - Constitutional Appears: Non-toxic - Head Exam Head Exam: NORMAL INSPECTION - Eye Exam Eye Exam: absent: Scleral icterus - Neck Exam Neck Exam: Full ROM - Respiratory Exam Respiratory Exam: Clear to Ausculation Bilateral - Cardiovascular Exam Cardiovascular Exam: REGULAR RHYTHM - GI/Abdominal Exam GI & Abdominal Exam: Soft - Extremities Exam Extremities Exam: absent: Pedal Edema Assessment and Plan - Assessment and Plan (Free Text) Assessment: CAD ESRD T2dm EDITH w/ respiratory failure Hx of multiple CVA Plan: Ok for fistulogram
--- NOTE | 2018-03-09 19:40 | CP.PCM.PN ---
Subjective - Date & Time of Evaluation Date of Evaluation: 03/09/18 Time of Evaluation: 19:39 - Subjective Subjective: pt is seen and examined, follow up consult is dictated #[id number] s/p hd today, had a uf about 3.6 lit Objective - Vital Signs/Intake and Output Vital Signs (last 24 hours): Temp Pulse Resp BP Pulse Ox 97.6 F 80 16 137/36 L 100 03/09/18 15:20 03/09/18 15:20 03/09/18 15:20 03/09/18 15:00 03/09/18 15:20 Intake and Output: 03/09/18 03/10/18 18:59 06:59 Intake Total 477.2 Balance 477.2 - Medications Medications: Current Medications Acetaminophen (Tylenol 325mg Tab) 650 mg PO Q6 PRN PRN Reason: Pain, Mild (1-3) Last Admin: 03/09/18 15:42 Dose: 650 mg Albuterol/Ipratropium (Duoneb 3 Mg/0.5 Mg (3 Ml) Ud) 3 ml INH RQ6 [facility] Last Admin: 03/09/18 18:29 Dose: 3 ml Alprazolam (Xanax) 0.25 mg PO Q6H PRN PRN Reason: Anxiety Last Admin: 03/08/18 22:33 Dose: 0.25 mg Aspirin (Aspirin Chewable) 81 mg PO DAILY [facility] Last Admin: 03/09/18 09:21 Dose: 81 mg Benzonatate (Tessalon Perles) 100 mg PO TID [facility] Last Admin: 03/09/18 18:34 Dose: 100 mg Budesonide (Pulmicort Respules) 0.5 mg INH RQ12 [facility] Last Admin: 03/09/18 18:29 Dose: 0.5 mg Docusate Sodium (Colace) 100 mg PO BID [facility] Last Admin: 03/09/18 18:35 Dose: Not Given Epoetin Mario (Procrit) 20,000 unit IV TTS [facility] Last Admin: 03/09/18 13:05 Dose: 20,000 unit Ferric Sodium Gluconate Complex (Ferrlecit) 125 mg IVPB TTS [facility] Stop: 03/15/18 10:01 Last Admin: 03/09/18 09:22 Dose: 125 mg Ferrous Sulfate (Feosol) 325 mg PO DAILY [facility] Last Admin: 03/09/18 09:21 Dose: 325 mg Furosemide (Lasix) 40 mg PO DAILY [facility] Last Admin: 03/09/18 09:21 Dose: 40 mg Cefepime HCl 1 gm/ Dextrose 50 mls @ 100 mls/hr IVPB Q12H [facility] PRN Reason: Protocol Last Admin: 03/09/18 15:50 Dose: 100 mls/hr Heparin Sodium/Sodium Chloride (Heparin 46036 Units/250ml 1/2 Normal Saline) 25 ,000 units in 250 mls @ 3.65 mls/hr IV .Q24H PRN; Protocol; 9 UNITS/KG/HR PRN Reason: PROTOCOL Last Titration: 03/09/18 15:54 Dose: 15 units/kg/hr, 6.083 mls/hr Insulin Human Regular (Novolin R) 0 unit SC ACHS [facility] PRN Reason: Protocol Last Admin: 03/09/18 16:30 Dose: Not Given Lactulose (Enulose) 20 gm PO DAILY PRN PRN Reason: FOR CONSTIPATION Lidocaine/Prilocaine (Emla) 0 gm TOP TuThSa PRN PRN Reason: FOR PAIN Last Admin: 03/09/18 08:56 Dose: 1 applic Lisinopril (Zestril) 2.5 mg PO DAILY [facility] Last Admin: 03/09/18 09:21 Dose: 2.5 mg Midodrine (Proamatine) 5 mg PO MWF [facility] Last Admin: 03/08/18 08:56 Dose: 5 mg Ondansetron HCl (Zofran Tab) 4 mg PO Q8H PRN PRN Reason: Nausea/Vomiting Paricalcitol (Zemplar) 2 mcg IV TTS [facility] Last Admin: 03/09/18 13:20 Dose: 2 mcg Polyethylene Glycol (Miralax) 17 gm PO DAILY [facility] Last Admin: 03/09/18 09:30 Dose: Not Given Rosuvastatin Calcium (Crestor) 10 mg PO HS [facility] Last Admin: 03/08/18 22:33 Dose: 10 mg Saliva Substitute (First Magic Mouthwash) 10 ml PO QID [facility] Last Admin: 03/09/18 18:35 Dose: 10 ml Sevelamer Carbonate (Renvela) 800 mg PO TIDCC [facility] Last Admin: 03/09/18 18:34 Dose: 800 mg Ticagrelor (Brilinta) 90 mg PO BID [facility] Last Admin: 03/09/18 18:35 Dose: 90 mg Vitamin B Complex/Vit C/Folic Acid (Nephro-Renaldo) 1 tab PO DAILY [facility] Last Admin: 03/09/18 13:18 Dose: 1 tab - Labs Labs: 03/09/18 06:35 03/09/18 06:33 PT 12.4 SECONDS (9.7-12.2) H 03/09/18 06:35 INR 1.1 03/09/18 06:35 APTT 35 SECONDS (21-34) H 03/09/18 13:28
--- NOTE | 2018-03-09 21:07 | CP.PCM.PN ---
Subjective - Date & Time of Evaluation Date of Evaluation: 03/09/18 Time of Evaluation: 18:35 - Subjective Subjective: the patient seen and examined No shortness of breath Complaining of hoarseness of voice Status post hemodialysis Afebrile BiPAP at night Continue nebulizer treatment Objective - Vital Signs/Intake and Output Vital Signs (last 24 hours): Temp Pulse Resp BP Pulse Ox 98.3 F 91 H 14 124/23 L 96 03/09/18 20:00 03/09/18 19:37 03/09/18 19:37 03/09/18 19:37 03/09/18 19:37 Intake and Output: 03/09/18 03/10/18 18:59 06:59 Intake Total 1035.8 6 Output Total 3500 Balance -2464.2 6 - Medications Medications: Current Medications Acetaminophen (Tylenol 325mg Tab) 650 mg PO Q6 PRN PRN Reason: Pain, Mild (1-3) Last Admin: 03/09/18 15:42 Dose: 650 mg Albuterol/Ipratropium (Duoneb 3 Mg/0.5 Mg (3 Ml) Ud) 3 ml INH RQ6 [facility] Last Admin: 03/09/18 18:29 Dose: 3 ml Alprazolam (Xanax) 0.25 mg PO Q6H PRN PRN Reason: Anxiety Last Admin: 03/08/18 22:33 Dose: 0.25 mg Aspirin (Aspirin Chewable) 81 mg PO DAILY [facility] Last Admin: 03/09/18 09:21 Dose: 81 mg Benzonatate (Tessalon Perles) 100 mg PO TID [facility] Last Admin: 03/09/18 18:34 Dose: 100 mg Budesonide (Pulmicort Respules) 0.5 mg INH RQ12 [facility] Last Admin: 03/09/18 18:29 Dose: 0.5 mg Docusate Sodium (Colace) 100 mg PO BID [facility] Last Admin: 03/09/18 18:35 Dose: Not Given Epoetin Mario (Procrit) 20,000 unit IV TTS [facility] Last Admin: 03/09/18 13:05 Dose: 20,000 unit Ferric Sodium Gluconate Complex (Ferrlecit) 125 mg IVPB TTS [facility] Stop: 03/15/18 10:01 Last Admin: 03/09/18 09:22 Dose: 125 mg Ferrous Sulfate (Feosol) 325 mg PO DAILY [facility] Last Admin: 03/09/18 09:21 Dose: 325 mg Furosemide (Lasix) 40 mg PO DAILY [facility] Last Admin: 03/09/18 09:21 Dose: 40 mg Cefepime HCl 1 gm/ Dextrose 50 mls @ 100 mls/hr IVPB Q12H [facility] PRN Reason: Protocol Last Admin: 03/09/18 15:50 Dose: 100 mls/hr Heparin Sodium/Sodium Chloride (Heparin 11834 Units/250ml 1/2 Normal Saline) 25 ,000 units in 250 mls @ 3.65 mls/hr IV .Q24H PRN; Protocol; 9 UNITS/KG/HR PRN Reason: PROTOCOL Last Titration: 03/09/18 15:54 Dose: 15 units/kg/hr, 6.083 mls/hr Insulin Human Regular (Novolin R) 0 unit SC ACHS [facility] PRN Reason: Protocol Last Admin: 03/09/18 16:30 Dose: Not Given Lactulose (Enulose) 20 gm PO DAILY PRN PRN Reason: FOR CONSTIPATION Lidocaine/Prilocaine (Emla) 0 gm TOP TuThSa PRN PRN Reason: FOR PAIN Last Admin: 03/09/18 08:56 Dose: 1 applic Lisinopril (Zestril) 2.5 mg PO DAILY [facility] Last Admin: 03/09/18 09:21 Dose: 2.5 mg Midodrine (Proamatine) 5 mg PO MWF [facility] Last Admin: 03/08/18 08:56 Dose: 5 mg Ondansetron HCl (Zofran Tab) 4 mg PO Q8H PRN PRN Reason: Nausea/Vomiting Paricalcitol (Zemplar) 2 mcg IV TTS [facility] Last Admin: 03/09/18 13:20 Dose: 2 mcg Polyethylene Glycol (Miralax) 17 gm PO DAILY [facility] Last Admin: 03/09/18 09:30 Dose: Not Given Rosuvastatin Calcium (Crestor) 10 mg PO HS [facility] Last Admin: 03/08/18 22:33 Dose: 10 mg Saliva Substitute (First Magic Mouthwash) 10 ml PO QID [facility] Last Admin: 03/09/18 18:35 Dose: 10 ml Sevelamer Carbonate (Renvela) 800 mg PO TIDCC [facility] Last Admin: 03/09/18 18:34 Dose: 800 mg Ticagrelor (Brilinta) 90 mg PO BID [facility] Last Admin: 03/09/18 18:35 Dose: 90 mg Vitamin B Complex/Vit C/Folic Acid (Nephro-Renaldo) 1 tab PO DAILY [facility] Last Admin: 03/09/18 13:18 Dose: 1 tab - Labs Labs: 03/09/18 06:35 03/09/18 06:33 PT 12.4 SECONDS (9.7-12.2) H 03/09/18 06:35 INR 1.1 03/09/18 06:35 APTT 35 SECONDS (21-34) H 03/09/18 13:28 Assessment and Plan (1) Hypercapnic respiratory failure Status: Acute (2) ESRD on hemodialysis Status: Acute (3) COPD (chronic obstructive pulmonary disease) Status: Acute
--- NOTE | 2018-03-09 21:51 | CP.PCM.PN ---
Subjective - Date & Time of Evaluation Date of Evaluation: 03/07/18 Time of Evaluation: 08:00 - Subjective Subjective: awake NAD dialysis fistula becoming an issue Objective - Vital Signs/Intake and Output Vital Signs (last 24 hours): Temp Pulse Resp BP Pulse Ox 98.3 F 91 H 14 124/23 L 96 03/09/18 20:00 03/09/18 19:37 03/09/18 19:37 03/09/18 19:37 03/09/18 19:37 Intake and Output: 03/09/18 03/10/18 18:59 06:59 Intake Total 1035.8 6 Output Total 3500 Balance -2464.2 6 - Medications Medications: Current Medications Acetaminophen (Tylenol 325mg Tab) 650 mg PO Q6 PRN PRN Reason: Pain, Mild (1-3) Last Admin: 03/09/18 15:42 Dose: 650 mg Albuterol/Ipratropium (Duoneb 3 Mg/0.5 Mg (3 Ml) Ud) 3 ml INH RQ6 [facility] Last Admin: 03/09/18 18:29 Dose: 3 ml Alprazolam (Xanax) 0.25 mg PO Q6H PRN PRN Reason: Anxiety Last Admin: 03/08/18 22:33 Dose: 0.25 mg Aspirin (Aspirin Chewable) 81 mg PO DAILY [facility] Last Admin: 03/09/18 09:21 Dose: 81 mg Benzonatate (Tessalon Perles) 100 mg PO TID [facility] Last Admin: 03/09/18 18:34 Dose: 100 mg Budesonide (Pulmicort Respules) 0.5 mg INH RQ12 [facility] Last Admin: 03/09/18 18:29 Dose: 0.5 mg Docusate Sodium (Colace) 100 mg PO BID [facility] Last Admin: 03/09/18 18:35 Dose: Not Given Epoetin Mario (Procrit) 20,000 unit IV TTS [facility] Last Admin: 03/09/18 13:05 Dose: 20,000 unit Ferric Sodium Gluconate Complex (Ferrlecit) 125 mg IVPB TTS [facility] Stop: 03/15/18 10:01 Last Admin: 03/09/18 09:22 Dose: 125 mg Ferrous Sulfate (Feosol) 325 mg PO DAILY [facility] Last Admin: 03/09/18 09:21 Dose: 325 mg Furosemide (Lasix) 40 mg PO DAILY [facility] Last Admin: 03/09/18 09:21 Dose: 40 mg Cefepime HCl 1 gm/ Dextrose 50 mls @ 100 mls/hr IVPB Q12H [facility] PRN Reason: Protocol Last Admin: 03/09/18 15:50 Dose: 100 mls/hr Heparin Sodium/Sodium Chloride (Heparin 14981 Units/250ml 1/2 Normal Saline) 25 ,000 units in 250 mls @ 3.65 mls/hr IV .Q24H PRN; Protocol; 9 UNITS/KG/HR PRN Reason: PROTOCOL Last Titration: 03/09/18 15:54 Dose: 15 units/kg/hr, 6.083 mls/hr Insulin Human Regular (Novolin R) 0 unit SC ACHS [facility] PRN Reason: Protocol Last Admin: 03/09/18 16:30 Dose: Not Given Lactulose (Enulose) 20 gm PO DAILY PRN PRN Reason: FOR CONSTIPATION Lidocaine/Prilocaine (Emla) 0 gm TOP TuThSa PRN PRN Reason: FOR PAIN Last Admin: 03/09/18 08:56 Dose: 1 applic Lisinopril (Zestril) 2.5 mg PO DAILY [facility] Last Admin: 03/09/18 09:21 Dose: 2.5 mg Midodrine (Proamatine) 5 mg PO MWF [facility] Last Admin: 03/08/18 08:56 Dose: 5 mg Ondansetron HCl (Zofran Tab) 4 mg PO Q8H PRN PRN Reason: Nausea/Vomiting Paricalcitol (Zemplar) 2 mcg IV TTS [facility] Last Admin: 03/09/18 13:20 Dose: 2 mcg Polyethylene Glycol (Miralax) 17 gm PO DAILY [facility] Last Admin: 03/09/18 09:30 Dose: Not Given Rosuvastatin Calcium (Crestor) 10 mg PO HS [facility] Last Admin: 03/08/18 22:33 Dose: 10 mg Saliva Substitute (First Magic Mouthwash) 10 ml PO QID [facility] Last Admin: 03/09/18 18:35 Dose: 10 ml Sevelamer Carbonate (Renvela) 800 mg PO TIDCC [facility] Last Admin: 03/09/18 18:34 Dose: 800 mg Ticagrelor (Brilinta) 90 mg PO BID [facility] Last Admin: 03/09/18 18:35 Dose: 90 mg Vitamin B Complex/Vit C/Folic Acid (Nephro-Renaldo) 1 tab PO DAILY [facility] Last Admin: 03/09/18 13:18 Dose: 1 tab - Labs Labs: 03/09/18 06:35 03/09/18 06:33 PT 12.4 SECONDS (9.7-12.2) H 03/09/18 06:35 INR 1.1 03/09/18 06:35 APTT 35 SECONDS (21-34) H 03/09/18 13:28 - Constitutional Appears: Non-toxic - Head Exam Head Exam: NORMAL INSPECTION - Eye Exam Eye Exam: absent: Scleral icterus - Neck Exam Neck Exam: Full ROM - Respiratory Exam Respiratory Exam: Clear to Ausculation Bilateral - Cardiovascular Exam Cardiovascular Exam: REGULAR RHYTHM - GI/Abdominal Exam GI & Abdominal Exam: Soft - Extremities Exam Extremities Exam: absent: Pedal Edema, Tenderness Assessment and Plan - Assessment and Plan (Free Text) Assessment: EDITH ESRD with fistula malfunction CAD T2DM Plan: For fistulogram in AM OK to go for procedure
[2018-03-10] MEDS: Albuterol-Ipratrop 3 mg / 0.5 (3 ml) UD INH SCH ×4 (01:03→19:07)
[2018-03-10 03:45] LABS: INR 1.2; PROTHROMBIN TIME 13.5 SECONDS (9.7-12.2)
[2018-03-10] MEDS: Budesonide 0.5 mg/2 ml Inhal Susp UD INH SCH ×2 (08:03→19:07)
[2018-03-10] MEDS: (Novolin R) Insulin Human Regular 100 units/ml vial SC SCH ×4 (08:10→21:25)
[2018-03-10 08:34] LABS: BASO % 0.5 % (0.0-2.0); EOS # 0.2 K/uL (0.0-0.7); EOS % 4.7 % (0.0-4.0); HEMOGLOBIN 9.1 g/dL (12.0-18.0); LYMPH # 1.1 K/uL (1.0-4.3); LYMPH % 21.7 % (20.0-40.0); MEAN CELL VOLUME 103.6 fL (80.0-94.0); MEAN CORPUSCULAR HEMOGLOBIN 32.3 pg (27.0-31.0); MEAN CORPUSCULAR HGB CONC 31.2 g/dL (33.0-37.0); MEAN PLATELET VOLUME 8.1 fL (7.2-11.7); MONO # 0.6 K/uL (0.0-0.8); MONO % 12.4 % (0.0-10.0); NEUT # 3.2 K/uL (1.8-7.0); NEUT % 60.7 % (50.0-75.0); NRBC % 1.5 % (0.0-2.0); RBC 2.81 Mil/uL (4.40-5.90); RED CELL DISTRIBUTION WIDTH 17.9 % (11.5-14.5); WHITE BLOOD COUNT 5.2 K/uL (4.8-10.8)
[2018-03-10 08:54] LABS: ALB/GLOB RATIO 1.1 (1.0-2.1); ALBUMIN 3.1 g/dL (3.5-5.0)
[2018-03-10] MEDS: Multivitamin Vitamin B Complex (Nephro-Vite) Tab PO SCH (09:49)
[2018-03-10] MEDS: POLYETHYLENE GLYCOL 3350 17 GM/Dose PACKET PO SCH (09:53)
[2018-03-10] MEDS: Mag&Al/Simet/Diphen/Lido 237 ML KIT PO SCH ×4 (10:04→21:49)
--- NOTE | 2018-03-10 14:54 | PN ---
Copied To: Carlos Andrews DO Attending MD: Carlos Andrews DO DATE: 03/10/2018 SUBJECTIVE: He is out of the intensive care unit. He is in bed, still with multiple complaints. He is having a foot ulcer. He is having chest pain, he knows at the heart he gets pain when they turn him to clean him. He wants to be turned more gently. I discussed that with the nurse. Otherwise, he is slowly improving. PHYSICAL EXAMINATION: GENERAL: He is alert, aware. He is hungry at this time. He was not hungry earlier. VITAL SIGNS: He has a 98.2 temp, pulse 80, blood pressure 140/77, respiratory rate 20, 100% O2 saturation on BiPAP. HEENT: His head is atraumatic and normocephalic. HEART: Regular rate. LUNGS: Decreased breath sounds, but clear. ABDOMEN: Soft, nontender. Positive bowel sounds. Obese. No guarding. No rebound. No CVA tenderness. EXTREMITIES: No edema, but the right heel ulcer is present. MEDICATIONS: He is on aspirin, Brilinta, cefepime, Colace, Crestor, DuoNebs, lidocaine, Enulose, Feosol, Ferrlecit, Magic mouthwash, heparin, IV Lasix, MiraLAX, Nephro-Renaldo, Novolin, ProAmatine, Procrit, Pulmicort, Renvela, Tessalon-Perles, Tylenol, Xanax, Zemplar, Zestril, and Zofran. LABORATORY DATA: He has a 5.2 white count, 9.1 hemoglobin, 29.1 hematocrit, with 140 platelets. INR is 1.2. Sodium 142, potassium 4.1, BUN is 17, creatinine 2.6, on dialysis, GFR is 25, sugar is 101, lactic acid is 0.9, calcium is 9, phosphorus 2.7, magnesium 2.3, total bilirubin is 0.5, AST is 41, ALT is 41, alk phos 106, total protein 6. He had many bacteria in the urine. ASSESSMENT AND PLAN: He has been seen by many physicians, Pulmonary, Renal, Cardiology. I am hoping that Dr. Medina will do the procedure he originally wanted to do. They could do the fistulogram hopefully the next day. Chest pain was not a heart-related incident, it is more chest wall. Possible cath on Sunday. Possible fistulogram. Continue with aggressive treatment and care. If this is going on, we will check his labs tomorrow. Carlos Andrews DO
--- NOTE | 2018-03-10 15:15 | CP.PCM.PN ---
Subjective - Date & Time of Evaluation Date of Evaluation: 03/10/18 Time of Evaluation: 07:00 - Subjective Subjective: chest pain less Objective - Vital Signs/Intake and Output Vital Signs (last 24 hours): Temp Pulse Resp BP Pulse Ox 98.2 F 80 20 140/83 100 03/10/18 07:10 03/10/18 07:10 03/10/18 07:10 03/10/18 09:49 03/10/18 07:10 Intake and Output: 03/10/18 03/10/18 06:59 18:59 Intake Total 6 Balance 6 - Medications Medications: Current Medications Acetaminophen (Tylenol 325mg Tab) 650 mg PO Q6 PRN PRN Reason: Pain, Mild (1-3) Last Admin: 03/10/18 06:44 Dose: 650 mg Albuterol/Ipratropium (Duoneb 3 Mg/0.5 Mg (3 Ml) Ud) 3 ml INH RQ6 [facility] Last Admin: 03/10/18 13:00 Dose: 3 ml Alprazolam (Xanax) 0.25 mg PO Q6H PRN PRN Reason: Anxiety Last Admin: 03/10/18 06:44 Dose: 0.25 mg Aspirin (Aspirin Chewable) 81 mg PO DAILY [facility] Last Admin: 03/10/18 09:49 Dose: 81 mg Benzonatate (Tessalon Perles) 100 mg PO TID [facility] Last Admin: 03/10/18 09:51 Dose: 100 mg Budesonide (Pulmicort Respules) 0.5 mg INH RQ12 [facility] Last Admin: 03/10/18 08:03 Dose: 0.5 mg Docusate Sodium (Colace) 100 mg PO BID [facility] Last Admin: 03/10/18 09:49 Dose: 100 mg Epoetin Mario (Procrit) 20,000 unit IV TTS [facility] Last Admin: 03/09/18 13:05 Dose: 20,000 unit Ferric Sodium Gluconate Complex (Ferrlecit) 125 mg IVPB TTS [facility] Stop: 03/15/18 10:01 Last Admin: 03/09/18 09:22 Dose: 125 mg Ferrous Sulfate (Feosol) 325 mg PO DAILY [facility] Last Admin: 03/10/18 09:49 Dose: 325 mg Furosemide (Lasix) 40 mg PO DAILY [facility] Last Admin: 03/10/18 09:49 Dose: 40 mg Cefepime HCl 1 gm/ Dextrose 50 mls @ 100 mls/hr IVPB Q12H [facility] PRN Reason: Protocol Last Admin: 03/10/18 08:33 Dose: 100 mls/hr Heparin Sodium/Sodium Chloride (Heparin 28935 Units/250ml 1/2 Normal Saline) 25 ,000 units in 250 mls @ 3.65 mls/hr IV .Q24H PRN; Protocol; 9 UNITS/KG/HR PRN Reason: PROTOCOL Last Titration: 03/09/18 15:54 Dose: 15 units/kg/hr, 6.083 mls/hr Insulin Human Regular (Novolin R) 0 unit SC ACHS [facility] PRN Reason: Protocol Last Admin: 03/10/18 11:41 Dose: Not Given Lactulose (Enulose) 20 gm PO DAILY PRN PRN Reason: FOR CONSTIPATION Lidocaine/Prilocaine (Emla) 0 gm TOP TuThSa PRN PRN Reason: FOR PAIN Last Admin: 03/09/18 08:56 Dose: 1 applic Lisinopril (Zestril) 2.5 mg PO DAILY [facility] Last Admin: 03/10/18 09:50 Dose: 2.5 mg Midodrine (Proamatine) 5 mg PO MWF [facility] Last Admin: 03/08/18 08:56 Dose: 5 mg Ondansetron HCl (Zofran Tab) 4 mg PO Q8H PRN PRN Reason: Nausea/Vomiting Paricalcitol (Zemplar) 2 mcg IV TTS [facility] Last Admin: 03/09/18 13:20 Dose: 2 mcg Polyethylene Glycol (Miralax) 17 gm PO DAILY [facility] Last Admin: 03/10/18 09:53 Dose: Not Given Rosuvastatin Calcium (Crestor) 10 mg PO HS [facility] Last Admin: 03/09/18 22:02 Dose: 10 mg Saliva Substitute (First Magic Mouthwash) 10 ml PO QID [facility] Last Admin: 03/10/18 10:04 Dose: 10 ml Sevelamer Carbonate (Renvela) 800 mg PO TIDCC [facility] Last Admin: 03/10/18 12:56 Dose: 800 mg Ticagrelor (Brilinta) 90 mg PO BID [facility] Last Admin: 03/10/18 11:41 Dose: 90 mg Vitamin B Complex/Vit C/Folic Acid (Nephro-Renaldo) 1 tab PO DAILY [facility] Last Admin: 03/10/18 09:49 Dose: 1 tab - Labs Labs: 03/10/18 08:21 03/10/18 08:21 PT 13.5 SECONDS (9.7-12.2) H 03/10/18 03:29 INR 1.2 03/10/18 03:29 APTT 43 SECONDS (21-34) H D 03/10/18 03:29 - Constitutional Appears: Non-toxic, Chronically Ill - Head Exam Head Exam: NORMOCEPHALIC - Eye Exam Eye Exam: PERRL - ENT Exam ENT Exam: Mucous Membranes Dry - Neck Exam Neck Exam: absent: Lymphadenopathy - Respiratory Exam Respiratory Exam: Decreased Breath Sounds - Cardiovascular Exam Cardiovascular Exam: REGULAR RHYTHM - GI/Abdominal Exam GI & Abdominal Exam: Distended, Soft Assessment and Plan (1) Complicated urinary tract infection Status: Acute (2) ESRD on hemodialysis Status: Acute (3) Hypothermia Status: Acute (4) Respiratory acidosis Status: Acute (5) Acute hyperkalemia Status: Acute (6) Anemia Status: Acute (7) Arm pain Status: Acute (8) Atelectasis of right lung Status: Acute (9) CHF (congestive heart failure) Status: Acute (10) COPD (chronic obstructive pulmonary disease) Status: Acute - Assessment and Plan (Free Text) Assessment: for cardiac cath
--- NOTE | 2018-03-10 16:19 | CP.PCM.PN ---
Subjective - Date & Time of Evaluation Date of Evaluation: 03/10/18 Time of Evaluation: 16:18 - Subjective Subjective: pt is seen and examined, follow up consult is dictated #[phone] for possible cath tomorrow as per pt will schedule for hd in am after cath Objective - Vital Signs/Intake and Output Vital Signs (last 24 hours): Temp Pulse Resp BP Pulse Ox 98.6 F 79 20 146/68 97 03/10/18 15:00 03/10/18 15:00 03/10/18 15:00 03/10/18 15:00 03/10/18 15:00 Intake and Output: 03/10/18 03/10/18 06:59 18:59 Intake Total 6 Balance 6 - Medications Medications: Current Medications Acetaminophen (Tylenol 325mg Tab) 650 mg PO Q6 PRN PRN Reason: Pain, Mild (1-3) Last Admin: 03/10/18 06:44 Dose: 650 mg Albuterol/Ipratropium (Duoneb 3 Mg/0.5 Mg (3 Ml) Ud) 3 ml INH RQ6 [facility] Last Admin: 03/10/18 13:00 Dose: 3 ml Alprazolam (Xanax) 0.25 mg PO Q6H PRN PRN Reason: Anxiety Last Admin: 03/10/18 06:44 Dose: 0.25 mg Aspirin (Aspirin Chewable) 81 mg PO DAILY [facility] Last Admin: 03/10/18 09:49 Dose: 81 mg Benzonatate (Tessalon Perles) 100 mg PO TID [facility] Last Admin: 03/10/18 14:16 Dose: 100 mg Budesonide (Pulmicort Respules) 0.5 mg INH RQ12 [facility] Last Admin: 03/10/18 08:03 Dose: 0.5 mg Docusate Sodium (Colace) 100 mg PO BID [facility] Last Admin: 03/10/18 09:49 Dose: 100 mg Epoetin Mario (Procrit) 20,000 unit IV TTS [facility] Last Admin: 03/09/18 13:05 Dose: 20,000 unit Ferric Sodium Gluconate Complex (Ferrlecit) 125 mg IVPB TTS [facility] Stop: 03/15/18 10:01 Last Admin: 03/09/18 09:22 Dose: 125 mg Ferrous Sulfate (Feosol) 325 mg PO DAILY [facility] Last Admin: 03/10/18 09:49 Dose: 325 mg Furosemide (Lasix) 40 mg PO DAILY [facility] Last Admin: 03/10/18 09:49 Dose: 40 mg Cefepime HCl 1 gm/ Dextrose 50 mls @ 100 mls/hr IVPB Q12H [facility] PRN Reason: Protocol Last Admin: 03/10/18 08:33 Dose: 100 mls/hr Heparin Sodium/Sodium Chloride (Heparin 79100 Units/250ml 1/2 Normal Saline) 25 ,000 units in 250 mls @ 3.65 mls/hr IV .Q24H PRN; Protocol; 9 UNITS/KG/HR PRN Reason: PROTOCOL Last Titration: 03/09/18 15:54 Dose: 15 units/kg/hr, 6.083 mls/hr Insulin Human Regular (Novolin R) 0 unit SC ACHS [facility] PRN Reason: Protocol Last Admin: 03/10/18 11:41 Dose: Not Given Lactulose (Enulose) 20 gm PO DAILY PRN PRN Reason: FOR CONSTIPATION Lidocaine/Prilocaine (Emla) 0 gm TOP TuThSa PRN PRN Reason: FOR PAIN Last Admin: 03/09/18 08:56 Dose: 1 applic Lisinopril (Zestril) 2.5 mg PO DAILY [facility] Last Admin: 03/10/18 09:50 Dose: 2.5 mg Midodrine (Proamatine) 5 mg PO MWF [facility] Last Admin: 03/08/18 08:56 Dose: 5 mg Ondansetron HCl (Zofran Tab) 4 mg PO Q8H PRN PRN Reason: Nausea/Vomiting Paricalcitol (Zemplar) 2 mcg IV TTS [facility] Last Admin: 03/09/18 13:20 Dose: 2 mcg Polyethylene Glycol (Miralax) 17 gm PO DAILY [facility] Last Admin: 03/10/18 09:53 Dose: Not Given Rosuvastatin Calcium (Crestor) 10 mg PO HS [facility] Last Admin: 03/09/18 22:02 Dose: 10 mg Saliva Substitute (First Magic Mouthwash) 10 ml PO QID [facility] Last Admin: 03/10/18 13:50 Dose: 10 ml Sevelamer Carbonate (Renvela) 800 mg PO TIDCC [facility] Last Admin: 03/10/18 12:56 Dose: 800 mg Ticagrelor (Brilinta) 90 mg PO BID [facility] Last Admin: 03/10/18 11:41 Dose: 90 mg Vitamin B Complex/Vit C/Folic Acid (Nephro-Renaldo) 1 tab PO DAILY [facility] Last Admin: 03/10/18 09:49 Dose: 1 tab - Labs Labs: 03/10/18 08:21 03/10/18 08:21 PT 13.5 SECONDS (9.7-12.2) H 03/10/18 03:29 INR 1.2 03/10/18 03:29 APTT 43 SECONDS (21-34) H D 03/10/18 03:29
--- NOTE | 2018-03-10 16:48 | CP.PCM.PN ---
Subjective - Date & Time of Evaluation Date of Evaluation: 03/10/18 Time of Evaluation: 16:47 - Subjective Subjective: no chest pain discussed need for cardiac cath Objective - Vital Signs/Intake and Output Vital Signs (last 24 hours): Temp Pulse Resp BP Pulse Ox 98.6 F 79 20 146/68 97 03/10/18 15:00 03/10/18 15:00 03/10/18 15:00 03/10/18 15:00 03/10/18 15:00 Intake and Output: 03/10/18 03/10/18 06:59 18:59 Intake Total 6 Balance 6 - Medications Medications: Current Medications Acetaminophen (Tylenol 325mg Tab) 650 mg PO Q6 PRN PRN Reason: Pain, Mild (1-3) Last Admin: 03/10/18 06:44 Dose: 650 mg Albuterol/Ipratropium (Duoneb 3 Mg/0.5 Mg (3 Ml) Ud) 3 ml INH RQ6 [facility] Last Admin: 03/10/18 13:00 Dose: 3 ml Alprazolam (Xanax) 0.25 mg PO Q6H PRN PRN Reason: Anxiety Last Admin: 03/10/18 06:44 Dose: 0.25 mg Aspirin (Aspirin Chewable) 81 mg PO DAILY [facility] Last Admin: 03/10/18 09:49 Dose: 81 mg Benzonatate (Tessalon Perles) 100 mg PO TID [facility] Last Admin: 03/10/18 14:16 Dose: 100 mg Budesonide (Pulmicort Respules) 0.5 mg INH RQ12 [facility] Last Admin: 03/10/18 08:03 Dose: 0.5 mg Docusate Sodium (Colace) 100 mg PO BID [facility] Last Admin: 03/10/18 09:49 Dose: 100 mg Epoetin Mario (Procrit) 20,000 unit IV TTS [facility] Last Admin: 03/09/18 13:05 Dose: 20,000 unit Ferric Sodium Gluconate Complex (Ferrlecit) 125 mg IVPB TTS [facility] Stop: 03/15/18 10:01 Last Admin: 03/09/18 09:22 Dose: 125 mg Ferrous Sulfate (Feosol) 325 mg PO DAILY [facility] Last Admin: 03/10/18 09:49 Dose: 325 mg Furosemide (Lasix) 40 mg PO DAILY [facility] Last Admin: 03/10/18 09:49 Dose: 40 mg Cefepime HCl 1 gm/ Dextrose 50 mls @ 100 mls/hr IVPB Q12H [facility] PRN Reason: Protocol Last Admin: 03/10/18 08:33 Dose: 100 mls/hr Heparin Sodium/Sodium Chloride (Heparin 93256 Units/250ml 1/2 Normal Saline) 25 ,000 units in 250 mls @ 3.65 mls/hr IV .Q24H PRN; Protocol; 9 UNITS/KG/HR PRN Reason: PROTOCOL Last Titration: 03/09/18 15:54 Dose: 15 units/kg/hr, 6.083 mls/hr Insulin Human Regular (Novolin R) 0 unit SC ACHS [facility] PRN Reason: Protocol Last Admin: 03/10/18 11:41 Dose: Not Given Lactulose (Enulose) 20 gm PO DAILY PRN PRN Reason: FOR CONSTIPATION Lidocaine/Prilocaine (Emla) 0 gm TOP TuThSa PRN PRN Reason: FOR PAIN Last Admin: 03/09/18 08:56 Dose: 1 applic Lisinopril (Zestril) 2.5 mg PO DAILY [facility] Last Admin: 03/10/18 09:50 Dose: 2.5 mg Midodrine (Proamatine) 5 mg PO MWF [facility] Last Admin: 03/08/18 08:56 Dose: 5 mg Ondansetron HCl (Zofran Tab) 4 mg PO Q8H PRN PRN Reason: Nausea/Vomiting Paricalcitol (Zemplar) 2 mcg IV TTS [facility] Last Admin: 03/09/18 13:20 Dose: 2 mcg Polyethylene Glycol (Miralax) 17 gm PO DAILY [facility] Last Admin: 03/10/18 09:53 Dose: Not Given Rosuvastatin Calcium (Crestor) 10 mg PO HS [facility] Last Admin: 03/09/18 22:02 Dose: 10 mg Saliva Substitute (First Magic Mouthwash) 10 ml PO QID [facility] Last Admin: 03/10/18 13:50 Dose: 10 ml Sevelamer Carbonate (Renvela) 800 mg PO TIDCC [facility] Last Admin: 03/10/18 12:56 Dose: 800 mg Ticagrelor (Brilinta) 90 mg PO BID [facility] Last Admin: 03/10/18 11:41 Dose: 90 mg Vitamin B Complex/Vit C/Folic Acid (Nephro-Renalod) 1 tab PO DAILY [facility] Last Admin: 03/10/18 09:49 Dose: 1 tab - Labs Labs: 03/10/18 08:21 03/10/18 08:21 PT 13.5 SECONDS (9.7-12.2) H 03/10/18 03:29 INR 1.2 03/10/18 03:29 APTT 43 SECONDS (21-34) H D 03/10/18 03:29 Assessment and Plan - Assessment and Plan (Free Text) Assessment: ACS ESRD CAD PVD T2dm Plan: Agreed for cath Will schedule for tomorrow
--- NOTE | 2018-03-10 20:18 | CP.PCM.CON ---
History of Present Illness - History of Present Illness History of Present Illness: Podiatry Consult Note for Dr. East: 67 yo male patient, with PMHx of CVA, CHF, HTN, ESRD, seen and evaluated for left heel superficial ulceration. Patient is resting in bed comfortably and in NAD. Patient is alert and responsive to questions. Patient is unable to walk and has recently developed heel breakdown. Patient resting in bed with multipodus boots bilaterally. He denies any other pedal complaints at this time. Denies N/V/F. PMHx: CVA, CHF, HTN, ESRD Allergies: iodine, IV dye, Clopidogrel, PCN PSHx: CABG, Pacemaker SH: Resident at [facility]. Review of Systems - Review of Systems Review of Systems: As per HPI Past Patient History - Infectious Disease Hx of Infectious Diseases: None - Past Medical History & Family History Past Medical History?: Yes - Past Social History Smoking Status: Never Smoked - CARDIAC Hx Congestive Heart Failure: Yes Hx Hypercholesterolemia: Yes Hx Hypertension: Yes - PULMONARY Hx Chronic Obstructive Pulmonary Disease (COPD): Yes - NEUROLOGICAL HX Cerebrovascular Accident: Yes (L UE AND B/L LE WEAKNESS) - HEENT Hx HEENT Problems: Yes Hx Cataracts: Yes - RENAL Date of Last Dialysis Treatment: 03/05/18 - ENDOCRINE/METABOLIC Hx Diabetes Mellitus Type 2: Yes - HEMATOLOGICAL/ONCOLOGICAL Hx Blood Disorders: Yes Hx Anemia: Yes - INTEGUMENTARY Hx Dermatological Problems: Yes Other/Comment: healed sacral ulcer - MUSCULOSKELETAL/RHEUMATOLOGICAL Hx Falls: Yes - GASTROINTESTINAL Hx Gastrointestinal Disorders: Yes Other/Comment: HX: DYSPHAGIA,UNSPECIFIED - GENITOURINARY/GYNECOLOGICAL Hx Genitourinary Disorders: No - PSYCHIATRIC Hx Substance Use: No - SURGICAL HISTORY Hx Surgeries: Yes Hx Coronary Artery Bypass Graft: Yes - ANESTHESIA Hx Anesthesia: Yes Hx Anesthesia Reactions: No Hx Malignant Hyperthermia: No Meds Allergies/Adverse Reactions: Allergies Allergy/AdvReac Type Severity Reaction Status Date / Time iodine Allergy Intermediate RASH Verified 03/05/18 15:49 clopidogrel [From Plavix] Allergy SHORTNESS Verified 03/05/18 15:49 OF BREATH clopidogrel bisulfate Allergy UNKNOWN Verified 03/05/18 17:14 [From Plavix] penicillin G Allergy SHORTNESS Verified 03/05/18 15:49 OF BREATH Penicillins Allergy UNKNOWN Verified 03/05/18 15:49 IV DYE Allergy unknown Uncoded 03/05/18 15:49 - Medications Medications: Current Medications Acetaminophen (Tylenol 325mg Tab) 650 mg PO Q6 PRN PRN Reason: Pain, Mild (1-3) Last Admin: 03/10/18 06:44 Dose: 650 mg Albuterol/Ipratropium (Duoneb 3 Mg/0.5 Mg (3 Ml) Ud) 3 ml INH RQ6 [facility] Last Admin: 03/10/18 19:07 Dose: 3 ml Alprazolam (Xanax) 0.25 mg PO Q6H PRN PRN Reason: Anxiety Last Admin: 03/10/18 06:44 Dose: 0.25 mg Aspirin (Aspirin Chewable) 81 mg PO DAILY [facility] Last Admin: 03/10/18 09:49 Dose: 81 mg Benzonatate (Tessalon Perles) 100 mg PO TID [facility] Last Admin: 03/10/18 18:04 Dose: 100 mg Budesonide (Pulmicort Respules) 0.5 mg INH RQ12 [facility] Last Admin: 03/10/18 19:07 Dose: 0.5 mg Docusate Sodium (Colace) 100 mg PO BID [facility] Last Admin: 03/10/18 18:04 Dose: 100 mg Epoetin Mario (Procrit) 20,000 unit IV TTS [facility] Last Admin: 03/09/18 13:05 Dose: 20,000 unit Ferric Sodium Gluconate Complex (Ferrlecit) 125 mg IVPB TTS [facility] Stop: 03/15/18 10:01 Last Admin: 03/09/18 09:22 Dose: 125 mg Ferrous Sulfate (Feosol) 325 mg PO DAILY [facility] Last Admin: 03/10/18 09:49 Dose: 325 mg Furosemide (Lasix) 40 mg PO DAILY [facility] Last Admin: 03/10/18 09:49 Dose: 40 mg Cefepime HCl 1 gm/ Dextrose 50 mls @ 100 mls/hr IVPB Q12H [facility] PRN Reason: Protocol Last Admin: 03/10/18 19:56 Dose: 100 mls/hr Heparin Sodium/Sodium Chloride (Heparin 59970 Units/250ml 1/2 Normal Saline) 25 ,000 units in 250 mls @ 8 mls/hr IV .Q24H PRN; Protocol PRN Reason: ADJUST RATE PER PROTOCOL Insulin Human Regular (Novolin R) 0 unit SC ACHS [facility] PRN Reason: Protocol Last Admin: 03/10/18 18:10 Dose: Not Given Lactulose (Enulose) 20 gm PO DAILY PRN PRN Reason: FOR CONSTIPATION Lidocaine/Prilocaine (Emla) 0 gm TOP TuThSa PRN PRN Reason: FOR PAIN Last Admin: 03/09/18 08:56 Dose: 1 applic Lisinopril (Zestril) 2.5 mg PO DAILY [facility] Last Admin: 03/10/18 09:50 Dose: 2.5 mg Midodrine (Proamatine) 5 mg PO MWF [facility] Last Admin: 03/08/18 08:56 Dose: 5 mg Ondansetron HCl (Zofran Tab) 4 mg PO Q8H PRN PRN Reason: Nausea/Vomiting Paricalcitol (Zemplar) 2 mcg IV TTS [facility] Last Admin: 03/09/18 13:20 Dose: 2 mcg Polyethylene Glycol (Miralax) 17 gm PO DAILY [facility] Last Admin: 03/10/18 09:53 Dose: Not Given Rosuvastatin Calcium (Crestor) 10 mg PO HS [facility] Last Admin: 03/09/18 22:02 Dose: 10 mg Saliva Substitute (First Magic Mouthwash) 10 ml PO QID [facility] Last Admin: 03/10/18 18:05 Dose: 10 ml Sevelamer Carbonate (Renvela) 800 mg PO TIDCC [facility] Last Admin: 03/10/18 18:04 Dose: 800 mg Ticagrelor (Brilinta) 90 mg PO BID [facility] Last Admin: 03/10/18 18:08 Dose: 90 mg Vitamin B Complex/Vit C/Folic Acid (Nephro-Renaldo) 1 tab PO DAILY [facility] Last Admin: 03/10/18 09:49 Dose: 1 tab Physical Exam - Constitutional Appears: Well, Non-toxic, No Acute Distress - Extremities Exam Additional comments: Vascular: DP/PT nonpalpable secondary to +2 pitting edema. CFT >3 seconds to all digits. TG warm to warm bilaterally Ortho: No pain upon palpation of calf compression, no pain upon palpation of left plantar heel, no gross deformities noted Neuro: Unable to assess Derm: Left: Superficial skin breakdown of left plantar heel measuring approximately 1 x 1 x .1. Skin is friable. No drainage, no purulence, no erythema, no streaking, no probe to bone, no clinical signs of infection. Right : no open lesions, no erythema, no streaking, no clinical signs of infection - Neurological Exam Neurological exam: Alert - Psychiatric Exam Psychiatric exam: Normal Affect, Normal Mood Results - Vital Signs Recent Vital Signs: Last Vital Signs Temp 98.6 F 03/10/18 15:00 Pulse 79 03/10/18 15:00 Resp 20 03/10/18 15:00 BP 146/68 03/10/18 15:00 Pulse Ox 97 03/10/18 15:00 - Labs Result Diagrams: 03/10/18 08:21 03/10/18 08:21 Labs: Laboratory Results - last 24 hr 03/10/18 03/10/18 03/10/18 03:29 08:21 08:21 WBC 5.2 RBC 2.81 L Hgb 9.1 L Hct 29.1 L MCV 103.6 H MCH 32.3 H MCHC 31.2 L RDW 17.9 H Plt Count 140 MPV 8.1 Neut % (Auto) 60.7 Lymph % (Auto) 21.7 [place] % (Auto) 12.4 H Eos % (Auto) 4.7 H Baso % (Auto) 0.5 Neut # (Auto) 3.2 Lymph # (Auto) 1.1 [place] # (Auto) 0.6 Eos # (Auto) 0.2 Baso # (Auto) 0.0 PT 13.5 H INR 1.2 APTT 43 H D Sodium 142 Potassium 4.1 Chloride 103 Carbon Dioxide 33 H Anion Gap 10 BUN 17 Creatinine 2.6 H Est GFR ( Amer) 30 Est GFR (Non-Af Amer) 25 Random Glucose 101 Lactic Acid Calcium 9.0 Phosphorus 2.7 Magnesium 2.3 Total Bilirubin 0.5 AST 41 ALT 41 Alkaline Phosphatase 106 Total Protein 6.0 L Albumin 3.1 L Globulin 2.9 Albumin/Globulin Ratio 1.1 03/10/18 03/10/18 08:21 17:21 WBC RBC Hgb Hct MCV MCH MCHC RDW Plt Count MPV Neut % (Auto) Lymph % (Auto) [place] % (Auto) Eos % (Auto) Baso % (Auto) Neut # (Auto) Lymph # (Auto) [place] # (Auto) Eos # (Auto) Baso # (Auto) PT INR APTT 27 D Sodium Potassium Chloride Carbon Dioxide Anion Gap BUN Creatinine Est GFR ( Amer) Est GFR (Non-Af Amer) Random Glucose Lactic Acid 0.9 Calcium Phosphorus Magnesium Total Bilirubin AST ALT Alkaline Phosphatase Total Protein Albumin Globulin Albumin/Globulin Ratio Assessment & Plan - Assessment and Plan (Free Text) Assessment: 67 yo male patient, with PMHx of CVA, CHF, HTN, ESRD, seen and evaluated for left heel superficial ulceration secondary to pressure Plan: Patient seen and evaluated Patient discussed with Dr. East Chart, labs, and vitals reviewed; afebrile, absent leukocytosis Left heel padded with ABD pad and Kerlix Multipodus boots to be worn at all times while in bed Podiatry will continue to monitor superficial ulceration while in house Thank you for the consult and for allowing us to partake in the care of this patient. - Date & Time Date: 03/10/18 Time: 20:25
--- NOTE | 2018-03-10 20:51 | CP.PCM.PN ---
Subjective - Date & Time of Evaluation Date of Evaluation: 03/10/18 Time of Evaluation: 20:50 - Subjective Subjective: Pulmonary follow up, Covering Dr Frausto The patient was Seen/interviewed and examined by me at the bedside, Medical records reviewed and Management issues were discussed and formulated with the house staff. Events reviewed 67 Years old Male with PMHx of CVA, CHF, HTN and ESRD Admitted with Hypercapnic respiratory failure, now imptoved Transferred out of ICU Awake, Alert, follows some commands comfortable, NAD Breathing unlabored Off BIPAP Denies any chest pain, Fever or Palpitations Less shortness of breath Complaining of hoarseness of voice Afebrile Scheduled for for cardiac cath tomorrow Objective - Vital Signs/Intake and Output Vital Signs (last 24 hours): Temp Pulse Resp BP Pulse Ox 98.6 F 79 20 146/68 97 03/10/18 15:00 03/10/18 15:00 03/10/18 15:00 03/10/18 15:00 03/10/18 15:00 - Medications Medications: Current Medications Acetaminophen (Tylenol 325mg Tab) 650 mg PO Q6 PRN PRN Reason: Pain, Mild (1-3) Last Admin: 03/10/18 06:44 Dose: 650 mg Albuterol/Ipratropium (Duoneb 3 Mg/0.5 Mg (3 Ml) Ud) 3 ml INH RQ6 [facility] Last Admin: 03/10/18 19:07 Dose: 3 ml Alprazolam (Xanax) 0.25 mg PO Q6H PRN PRN Reason: Anxiety Last Admin: 03/10/18 06:44 Dose: 0.25 mg Aspirin (Aspirin Chewable) 81 mg PO DAILY [facility] Last Admin: 03/10/18 09:49 Dose: 81 mg Benzonatate (Tessalon Perles) 100 mg PO TID [facility] Last Admin: 03/10/18 18:04 Dose: 100 mg Budesonide (Pulmicort Respules) 0.5 mg INH RQ12 [facility] Last Admin: 03/10/18 19:07 Dose: 0.5 mg Docusate Sodium (Colace) 100 mg PO BID [facility] Last Admin: 03/10/18 18:04 Dose: 100 mg Epoetin Mario (Procrit) 20,000 unit IV TTS [facility] Last Admin: 03/09/18 13:05 Dose: 20,000 unit Ferric Sodium Gluconate Complex (Ferrlecit) 125 mg IVPB TTS [facility] Stop: 03/15/18 10:01 Last Admin: 03/09/18 09:22 Dose: 125 mg Ferrous Sulfate (Feosol) 325 mg PO DAILY [facility] Last Admin: 03/10/18 09:49 Dose: 325 mg Furosemide (Lasix) 40 mg PO DAILY [facility] Last Admin: 03/10/18 09:49 Dose: 40 mg Cefepime HCl 1 gm/ Dextrose 50 mls @ 100 mls/hr IVPB Q12H [facility] PRN Reason: Protocol Last Admin: 03/10/18 19:56 Dose: 100 mls/hr Heparin Sodium/Sodium Chloride (Heparin 51127 Units/250ml 1/2 Normal Saline) 25 ,000 units in 250 mls @ 8 mls/hr IV .Q24H PRN; Protocol PRN Reason: ADJUST RATE PER PROTOCOL Insulin Human Regular (Novolin R) 0 unit SC ACHS [facility] PRN Reason: Protocol Last Admin: 03/10/18 18:10 Dose: Not Given Lactulose (Enulose) 20 gm PO DAILY PRN PRN Reason: FOR CONSTIPATION Lidocaine/Prilocaine (Emla) 0 gm TOP TuThSa PRN PRN Reason: FOR PAIN Last Admin: 03/09/18 08:56 Dose: 1 applic Lisinopril (Zestril) 2.5 mg PO DAILY [facility] Last Admin: 03/10/18 09:50 Dose: 2.5 mg Midodrine (Proamatine) 5 mg PO MWF [facility] Last Admin: 03/08/18 08:56 Dose: 5 mg Ondansetron HCl (Zofran Tab) 4 mg PO Q8H PRN PRN Reason: Nausea/Vomiting Paricalcitol (Zemplar) 2 mcg IV TTS [facility] Last Admin: 03/09/18 13:20 Dose: 2 mcg Polyethylene Glycol (Miralax) 17 gm PO DAILY [facility] Last Admin: 03/10/18 09:53 Dose: Not Given Rosuvastatin Calcium (Crestor) 10 mg PO HS [facility] Last Admin: 03/09/18 22:02 Dose: 10 mg Saliva Substitute (First Magic Mouthwash) 10 ml PO QID [facility] Last Admin: 03/10/18 18:05 Dose: 10 ml Sevelamer Carbonate (Renvela) 800 mg PO TIDCC [facility] Last Admin: 03/10/18 18:04 Dose: 800 mg Ticagrelor (Brilinta) 90 mg PO BID [facility] Last Admin: 03/10/18 18:08 Dose: 90 mg Vitamin B Complex/Vit C/Folic Acid (Nephro-Renaldo) 1 tab PO DAILY [facility] Last Admin: 03/10/18 09:49 Dose: 1 tab - Labs Labs: 03/10/18 08:21 03/10/18 08:21 PT 13.5 SECONDS (9.7-12.2) H 03/10/18 03:29 INR 1.2 03/10/18 03:29 APTT 27 SECONDS (21-34) D 03/10/18 17:21 - Constitutional Appears: Well, Non-toxic - Head Exam Head Exam: ATRAUMATIC, NORMAL INSPECTION - Eye Exam Eye Exam: EOMI, Normal appearance. absent: Conjunctival injection Pupil Exam: NORMAL ACCOMODATION, PERRL - ENT Exam ENT Exam: Mucous Membranes Moist - Neck Exam Neck Exam: Full ROM - Respiratory Exam Respiratory Exam: Decreased Breath Sounds. absent: Accessory Muscle Use, Chest Wall Tenderness, Rales, Rhonchi, Wheezes - Cardiovascular Exam Cardiovascular Exam: REGULAR RHYTHM, RRR, +S1, +S2. absent: Bradycardia, Tachycardia, JVD - Extremities Exam Extremities Exam: Full ROM, Normal Capillary Refill, Pedal Edema. absent: Calf Tenderness - Back Exam Back Exam: absent: CVA tenderness (L), CVA tenderness (R) - Neurological Exam Neurological Exam: Alert, Awake, Oriented x3. absent: Altered Assessment and Plan (1) Hypercapnic respiratory failure Status: Acute (2) COPD (chronic obstructive pulmonary disease) Status: Acute (3) ESRD on hemodialysis Status: Acute - Assessment and Plan (Free Text) Assessment: Continue nebulizer treatment Continue BiPAP at night Scheduled for for cardiac cath tomorrow Continue hemodialysis as per Renal
[2018-03-10] MEDS: Heparin25000 units/250ml 1/2NS 25,000 UNITS/250 ML BAG IV PRN (21:08)
[2018-03-11] MEDS: Albuterol-Ipratrop 3 mg / 0.5 (3 ml) UD INH SCH ×4 (01:13→19:30)
--- NOTE | 2018-03-11 03:19 | PN ---
Copied To: Martin Ortiz MD Attending MD: Martin Ortiz MD DATE: 03/10/2018 FOLLOWUP RENAL CONSULTATION LOCATION: The patient is located in room 650, bed A. REQUESTED BY: Carlos Andrews DO REASON FOR FOLLOWUP: End-stage renal disease, continuation of hemodialysis. HISTORY OF PRESENT ILLNESS: Mr. Conor Gonzales is a 67-year-old obese [place] male with a history of longstanding hypertension, diabetes, coronary artery disease, status post CABG, CVA with left-sided weakness, CHF, COPD, asthma who was found suddenly unresponsive in the dialysis, and CPR initiated, and subsequently transferred to medical floor through the ER. The patient was transferred from a medical floor to the ICU on Sunday with chest pain during the procedure of fistulogram. The patient was feeling better after hemodialysis yesterday, had ultrafiltration about 3.6 liters. Now, the patient is back to medical floor. Denies any chest pain or palpitation today. Denies any nausea, vomiting, diarrhea. Lesser short of breath. PHYSICAL EXAMINATION: VITAL SIGNS: As follows: Blood pressure 146/68, pulse 79, respirations 20, temperature 98.6, and saturation 97%. Height 5 feet 6 inches, weight is 208 pounds. GENERAL: Mr. Gonzales is a 67-year-old elderly male, moderately built, moderately nourished, not in distress. HEENT: Pupils normal and reactive to light and accommodation. Conjunctivae pink. Sclerae anicteric. Tongue is moist. Trachea is midline. LUNGS: Symmetric on both sides. Bilateral breath sounds present. Bilateral basal crackles present. CVS: [place] at the fifth intercostal space, midclavicular line. S1, S2 audible. No murmur or gallop. ABDOMEN: Normal in appearance, soft, tympanitic. No guarding. No rigidity. No hepatosplenomegaly. 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 Sensory system is grossly within normal limits. Motor system, the patient has left-sided weakness secondary to CVA. EXTREMITIES: No cyanosis, no clubbing. The patient has 2+ edema in both lower extremities and also upper extremities. MEDICATIONS: His current medications include as follows: Aspirin, Brilinta, cefepime, Colace, Crestor, DuoNeb inhaler, EMLA cream, lactulose, ferrous sulfate, ferrous gluconate, heparin, Lasix 40 mg p.o. daily, MiraLax, Nephro-Renaldo, midodrine, Epogen, Pulmicort, Renvela, lisinopril, Zemplar, Xanax, and Zofran. LABORATORY DATA: His laboratory data include as follows: As of 03/10/2018, WBC 5.2, hemoglobin 9.1, hematocrit is 29.1, platelets 140. Sodium 142, potassium 4.1, chloride 103, CO2 of 33, BUN 17, creatinine 2.6, glucose 101, total bili 0.5, lactic acid 0.9, calcium is 9, phosphorus 2.7, magnesium 2.3, AST 41, ALT 41, alkaline phosphatase 106, total protein 6, albumin is 3.1. IMPRESSION: In summary, Mr. Gonzales is a 67-year-old elderly Romanian male with a history of longstanding hypertension, diabetes, coronary artery disease, status post coronary artery bypass graft, cerebrovascular accident with left-sided weakness, status post pacemaker placement, anemia, congestive heart failure, chronic obstructive pulmonary disease, asthma who was admitted with unresponsiveness, and status post CPR initiation in the dialysis unit. Subsequently taken over by EMS and transferred to emergency room, and then the patient is admitted to medical floor, status post chest pain during the fistulogram procedure on Sunday and transferred to ICU. The patient was monitored for 24 hours and transferred back to medical floor after hemodialysis yesterday. 1. End-stage renal disease. Continue hemodialysis three times a week. 2. Fluid overload. 3. Chronic obstructive pulmonary disease exacerbation, most likely secondary to congestive heart failure and fluid overload. 3. Anemia, secondary to renal failure. Continue Procrit three times a week. Restrict fluids to 1 liter per day; and continue Epogen, Renvela, and Zemplar. Follow up with Vascular Surgery for evaluation of the left upper extremity AV graft for possible cardiac cath in a.m. as per the patient. We will schedule for hemodialysis after cardiac cath tomorrow. We will follow with you. Thank you for allowing me to participate in your patient's care. Martin Ortiz MD
[2018-03-11 04:40] LABS: BASO % 0.4 % (0.0-2.0); EOS # 0.7 K/uL (0.0-0.7); EOS % 13.4 % (0.0-4.0); HEMOGLOBIN 9.1 g/dL (12.0-18.0); LYMPH # 0.9 K/uL (1.0-4.3); LYMPH % 17.4 % (20.0-40.0); MEAN CELL VOLUME 102.9 fL (80.0-94.0); MEAN CORPUSCULAR HEMOGLOBIN 31.9 pg (27.0-31.0); MEAN PLATELET VOLUME 8.2 fL (7.2-11.7); MONO # 0.6 K/uL (0.0-0.8); MONO % 11.8 % (0.0-10.0); NEUT # 2.9 K/uL (1.8-7.0); NRBC % 0.8 % (0.0-2.0); RBC 2.85 Mil/uL (4.40-5.90); RED CELL DISTRIBUTION WIDTH 17.7 % (11.5-14.5)
[2018-03-11 05:16] LABS: CALCIUM 8.3 mg/dl (8.6-10.4)
[2018-03-11] MEDS: Budesonide 0.5 mg/2 ml Inhal Susp UD INH SCH ×2 (07:40→19:30)
--- NOTE | 2018-03-11 08:05 | CARD ---
APPROVED REPORT Date of service: 03/08/2018 EKG Measurement Heart [id number] [id number] <Conclusion> Sinus rhythm with marked sinus arrhythmia with frequent ventricular-paced complexes Right bundle branch block Inferior infarct, age undetermined T wave abnormality, consider lateral ischemia Abnormal ECG
--- NOTE | 2018-03-11 08:06 | CARD ---
APPROVED REPORT Date of service: 03/08/2018 EKG Measurement Heart [id number] <Conclusion> Sinus rhythm with occasional ventricular-paced complexes Right bundle branch block Inferior infarct, age undetermined Abnormal ECG
--- NOTE | 2018-03-11 08:36 | PN ---
Copied To: Carlos Andrews DO Attending MD: Carlos Andrews DO DATE: 03/11/2018 SUBJECTIVE: I saw him resting comfortably in bed this morning. He seems a little bit weaker today than yesterday. He is here for cardiac cath this morning with Dr. Lucas, and possibly, the next thing may be a fistulogram if things go well with Dr. Medina. MEDICATIONS: He is on aspirin, Brilinta, cefepime, Colace, Crestor, DuoNeb, EMLA, Enulose, Ferrlecit, Magic mouthwash, heparin IV, Lasix, MiraLax, Nephro-Renaldo, Novolin, ProAmatine, Procrit, Pulmicort, Renvela, Tessalon Perles, Tylenol, Xanax, Zemplar, Zestril, and Zofran. PHYSICAL EXAMINATION: VITAL SIGNS: He has a 98.1 temp, 79 pulse, 168/72 blood pressure, 20 respiratory rate, and 100% O2 sat on BiPAP 40%. GENERAL: He is tired this morning. HEENT: Head, atraumatic and normocephalic. Throat is moist. HEART: Regular rate. LUNGS: Decreased breath sounds, but clear. ABDOMEN: Soft, obese, and nontender. Positive bowel sounds. EXTREMITIES: No edema. There is an ulcer of the foot. I called the Podiatry. LABORATORY DATA: He has a 5 white count, 9.1 hemoglobin, 29.3 hematocrit with 137 platelets. He has 141 sodium, potassium 4.5, BUN 23, creatinine 3.2. He is on dialysis. GFR is 20. Sugar is 93. Lactic acid is less than 0.05, calcium is 8.3, phosphorous 2.9, magnesium is 2.3. Total bilirubin is 0.6. AST is 29, ALT is 41, alk phos is 86, total protein 6.1. ASSESSMENT AND PLAN: He has a urinary tract infection. The plan for him is to have a cardiac catheterization today with Dr. Lucas. He is on dialysis. He is on IV antibiotics by Infectious Disease. I am hoping possibly a fistulogram the next day. There is a consult with Podiatry for taking care of his left heel ulcer. We will continue aggressive treatment and care of Mr. Conor Gonzales. We will check his laboratories tomorrow. I had a long discussion with Conor about his situation. Carlos Andrews DO HUNTER
[2018-03-11] MEDS: (Novolin R) Insulin Human Regular 100 units/ml vial SC SCH ×4 (09:18→22:16)
--- NOTE | 2018-03-11 09:22 | PN ---
Copied To: Martin Ortiz MD Attending MD: Martin Ortiz MD DATE: 03/09/2018 FOLLOWUP RENAL CONSULTATION LOCATION: The patient is located in room 650, bed A. REQUESTED BY: Carlos Andrews DO REASON FOR FOLLOWUP: End-stage renal disease, continuation of hemodialysis. SUBJECTIVE: The patient is a 67-year-old obese elderly Nigerien male with a history of longstanding hypertension, diabetes, coronary artery disease, CHF, CAD, status post CABG, status post CVA with left-sided weakness, status post pacemaker placement with multiple admissions to [facility], was sent from the dialysis center on with unresponsiveness. They initiated CPR, subsequently taken over by EMS, and the patient was transferred to the [facility] for further evaluation. The patient was also found to have elevated pCO2, started on BiPAP. The patient was admitted to ICU from the floor after attempting fistulogram and started complaining of chest pain in the middle of the procedure, and procedure was aborted and transferred to ICU. The patient was on BiPAP. The patient underwent hemodialysis today and had ultrafiltration about 3.6 liters. The patient is feeling much better now. The patient is on nasal cannula. No chest pain. No palpitation. No fever. No cough. PHYSICAL EXAMINATION: VITAL SIGNS: As follows: Blood pressure 124/23, pulse 91, respirations 14, temperature 98.3, saturation 96% to 100%. Height 5 feet 6 inches. Weight is not available. GENERAL: The patient is a 67-year-old elderly obese male, moderately built, moderately nourished, not in acute distress. HEENT: Pupils are normal and reactive to light and accommodation. Conjunctivae pink. Sclerae anicteric. Tongue is moist and trachea is midline. LUNGS: Symmetric on both sides. Bilateral breath sounds present. Clear to auscultation. CARDIOVASCULAR SYSTEM: [place] at the fifth intercostal space, midclavicular line. S1, S2 audible. No murmur or gallop. ABDOMEN: Normal in appearance, soft, tympanitic. No guarding. No rigidity. No hepatosplenomegaly. CENTRAL NERVOUS SYSTEM: The patient is alert, awake, and oriented x3. Sensory and motor system is grossly within normal limits on the right side. On the left side, the patient has weakness secondary to previous CVA. EXTREMITIES: No cyanosis, no clubbing. The patient is having 1 to 2+ edema in both lower extremities. MEDICATIONS: His medications reviewed include aspirin, Brilinta, cefepime, Colace, Crestor, DuoNeb inhaler, EMLA cream, lactulose, ferrous sulfate, , heparin, Lasix, Nephro-Renaldo, midodrine, Epogen, Pulmicort, Renvela, Tylenol, Xanax, and Zemplar. LABORATORY DATA: His laboratory data include as follows: WBC 4.2, hemoglobin 9.2, hematocrit 29.8, platelets 145. PT 12.4, PTT 37. Sodium 140, potassium 5.6, chloride 101, CO2 of 29, BUN 27, creatinine 3.4, glucose 119, calcium 9.2. Phosphorus 3.6, magnesium 2.5. Total bili 0.5, AST 41, ALT 26, alkaline phos 102. CPK 23. Troponin 0.015, 0.015, 0.02. Total protein 6.6, albumin 3.5. ASSESSMENT AND PLAN: In summary, the patient is a 67-year-old elderly [place]ien male with a history of hypertension, diabetes, end-stage renal disease, status post pacemaker, coronary artery disease, status post coronary artery bypass grafting, cerebrovascular accident with left-sided weakness who was admitted with unresponsiveness, status post cardiopulmonary resuscitation, developed chest pain during fistulogram and procedure was aborted and admitted to intensive care unit yesterday. 1. End-stage renal disease. Continue hemodialysis three times a week on Sunday, and Sunday. 2. Congestive heart failure, secondary to fluid overload, noncompliance with fluid intake and diet. 3. Chronic obstructive pulmonary disease. 4. Hyperkalemia. Restrict fluids to 1 liter per day and low sodium, low potassium diet. Follow up with Vascular Surgery for evaluation of the left upper extremity arteriovenous graft. The patient underwent hemodialysis and ultrafiltration about 3.6 liters. We will follow with you. Thank you for allowing me to participate in your patient's care. Martin Ortiz MD [facility] # [id number]
[2018-03-11] MEDS: POLYETHYLENE GLYCOL 3350 17 GM/Dose PACKET PO SCH (09:39)
[2018-03-11] MEDS: Multivitamin Vitamin B Complex (Nephro-Vite) Tab PO SCH (09:39)
[2018-03-11] MEDS: Mag&Al/Simet/Diphen/Lido 237 ML KIT PO SCH ×4 (09:44→22:16)
[2018-03-11] MEDS: Heparin25000 units/250ml 1/2NS 25,000 UNITS/250 ML BAG IV PRN (10:23)
--- NOTE | 2018-03-11 14:10 | CP.PCM.PN ---
Subjective - Date & Time of Evaluation Date of Evaluation: 03/11/18 Time of Evaluation: 10:30 - Subjective Subjective: Patient seen and examined Denies shortness of breath Afebrile No chest pain Objective - Vital Signs/Intake and Output Vital Signs (last 24 hours): Temp Pulse Resp BP Pulse Ox 98.2 F 79 20 155/61 H 100 03/11/18 07:00 03/11/18 07:00 03/11/18 07:00 03/11/18 09:39 03/11/18 07:00 Intake and Output: 03/11/18 03/11/18 06:59 18:59 Intake Total 40 250 Balance 40 250 - Medications Medications: Current Medications Acetaminophen (Tylenol 325mg Tab) 650 mg PO Q6 PRN PRN Reason: Pain, Mild (1-3) Last Admin: 03/11/18 07:07 Dose: 650 mg Albuterol/Ipratropium (Duoneb 3 Mg/0.5 Mg (3 Ml) Ud) 3 ml INH RQ6 [facility] Last Admin: 03/11/18 13:47 Dose: 3 ml Alprazolam (Xanax) 0.25 mg PO Q6H PRN PRN Reason: Anxiety Last Admin: 03/11/18 13:44 Dose: 0.25 mg Aspirin (Aspirin Chewable) 81 mg PO DAILY [facility] Last Admin: 03/11/18 09:39 Dose: 81 mg Benzonatate (Tessalon Perles) 100 mg PO TID [facility] Last Admin: 03/11/18 13:53 Dose: 100 mg Budesonide (Pulmicort Respules) 0.5 mg INH RQ12 [facility] Last Admin: 03/11/18 07:40 Dose: Not Given Docusate Sodium (Colace) 100 mg PO BID [facility] Last Admin: 03/11/18 09:42 Dose: 100 mg Epoetin Mario (Procrit) 20,000 unit IV TTS [facility] Last Admin: 03/09/18 13:05 Dose: 20,000 unit Ferric Sodium Gluconate Complex (Ferrlecit) 125 mg IVPB TTS [facility] Stop: 03/15/18 10:01 Last Admin: 03/09/18 09:22 Dose: 125 mg Furosemide (Lasix) 40 mg PO DAILY [facility] Last Admin: 03/11/18 09:39 Dose: 40 mg Cefepime HCl 1 gm/ Dextrose 50 mls @ 100 mls/hr IVPB Q12H [facility] PRN Reason: Protocol Last Admin: 03/11/18 09:28 Dose: 100 mls/hr Heparin Sodium/Sodium Chloride (Heparin 00825 Units/250ml 1/2 Normal Saline) 25 ,000 units in 250 mls @ 8 mls/hr IV .Q24H PRN; Protocol PRN Reason: ADJUST RATE PER PROTOCOL Last Admin: 03/11/18 10:23 Dose: 8 ml/hr, 8 mls/hr Insulin Human Regular (Novolin R) 0 unit SC ACHS [facility] PRN Reason: Protocol Last Admin: 03/11/18 12:27 Dose: Not Given Lactulose (Enulose) 20 gm PO DAILY PRN PRN Reason: FOR CONSTIPATION Lidocaine/Prilocaine (Emla) 0 gm TOP TuThSa PRN PRN Reason: FOR PAIN Last Admin: 03/09/18 08:56 Dose: 1 applic Lisinopril (Zestril) 2.5 mg PO DAILY [facility] Last Admin: 03/11/18 09:44 Dose: 2.5 mg Midodrine (Proamatine) 5 mg PO MWF [facility] Last Admin: 03/11/18 09:43 Dose: 5 mg Ondansetron HCl (Zofran Tab) 4 mg PO Q8H PRN PRN Reason: Nausea/Vomiting Paricalcitol (Zemplar) 2 mcg IV TTS [facility] Last Admin: 03/09/18 13:20 Dose: 2 mcg Polyethylene Glycol (Miralax) 17 gm PO DAILY [facility] Last Admin: 03/11/18 09:39 Dose: 17 gm Rosuvastatin Calcium (Crestor) 10 mg PO HS [facility] Last Admin: 03/10/18 21:24 Dose: 10 mg Saliva Substitute (First Magic Mouthwash) 10 ml PO QID [facility] Last Admin: 03/11/18 13:53 Dose: 10 ml Sevelamer Carbonate (Renvela) 800 mg PO TIDCC [facility] Last Admin: 03/11/18 12:33 Dose: 800 mg Ticagrelor (Brilinta) 90 mg PO BID [facility] Last Admin: 03/11/18 09:44 Dose: 90 mg Vitamin B Complex/Vit C/Folic Acid (Nephro-Renaldo) 1 tab PO DAILY [facility] Last Admin: 03/11/18 09:39 Dose: 1 tab - Labs Labs: 03/11/18 04:37 03/11/18 04:37 PT 13.5 SECONDS (9.7-12.2) H 03/10/18 03:29 INR 1.2 03/10/18 03:29 APTT 54 SECONDS (21-34) H D 03/11/18 04:37 - Head Exam Head Exam: ATRAUMATIC, NORMOCEPHALIC - Eye Exam Eye Exam: Normal appearance - ENT Exam ENT Exam: Mucous Membranes Moist - Neck Exam Neck Exam: Normal Inspection - Respiratory Exam Respiratory Exam: Decreased Breath Sounds - Cardiovascular Exam Cardiovascular Exam: REGULAR RHYTHM - GI/Abdominal Exam GI & Abdominal Exam: Soft, Normal Bowel Sounds - Extremities Exam Extremities Exam: Pedal Edema Assessment and Plan (1) Hypercapnic respiratory failure Assessment & Plan: Continue BiPAP at night Nebulizer treatment Budesonide Continue hemodialysis Status: Acute (2) ESRD on hemodialysis Status: Acute (3) COPD (chronic obstructive pulmonary disease) Status: Acute
[2018-03-11 14:30] LABS: CK-MB 1.83 ng/mL (0.0-3.38)
[2018-03-11] MEDS ORDERED: Albumin Human 25% (12.5 gm/50 ml) IV STA (17:34)
[2018-03-11 18:08] LABS: BASO % 0.5 % (0.0-2.0); EOS # 0.8 K/uL (0.0-0.7); EOS % 13.7 % (0.0-4.0); HEMOGLOBIN 9.5 g/dL (12.0-18.0); LYMPH # 0.9 K/uL (1.0-4.3); LYMPH % 14.8 % (20.0-40.0); MEAN CELL VOLUME 103.6 fL (80.0-94.0); MEAN CORPUSCULAR HGB CONC 31.9 g/dL (33.0-37.0); MEAN PLATELET VOLUME 8.4 fL (7.2-11.7); MONO # 0.6 K/uL (0.0-0.8); MONO % 9.5 % (0.0-10.0); NEUT # 3.7 K/uL (1.8-7.0); NEUT % 61.5 % (50.0-75.0); NRBC % 1.2 % (0.0-2.0); RBC 2.87 Mil/uL (4.40-5.90); RED CELL DISTRIBUTION WIDTH 17.9 % (11.5-14.5)
[2018-03-11 18:20] LABS: CALCIUM 9.1 mg/dl (8.6-10.4)
--- NOTE | 2018-03-11 19:01 | CP.PCM.PN ---
Subjective - Date & Time of Evaluation Date of Evaluation: 03/11/18 Time of Evaluation: 19:00 - Subjective Subjective: pt is seen and examined, follow up consult is dictated #[id number] s/p hd today, had a uf about 3.0 lit, stable hd tx Objective - Vital Signs/Intake and Output Vital Signs (last 24 hours): Temp Pulse Resp BP Pulse Ox 97.9 F 98 H 20 124/51 L 96 03/11/18 15:40 03/11/18 15:40 03/11/18 15:40 03/11/18 15:40 03/11/18 15:40 Intake and Output: 03/11/18 03/12/18 18:59 06:59 Intake Total 456 Balance 456 - Medications Medications: Current Medications Acetaminophen (Tylenol 325mg Tab) 650 mg PO Q6 PRN PRN Reason: Pain, Mild (1-3) Last Admin: 03/11/18 16:12 Dose: 650 mg Albuterol/Ipratropium (Duoneb 3 Mg/0.5 Mg (3 Ml) Ud) 3 ml INH RQ6 [facility] Last Admin: 03/11/18 13:47 Dose: 3 ml Alprazolam (Xanax) 0.25 mg PO Q6H PRN PRN Reason: Anxiety Last Admin: 03/11/18 13:44 Dose: 0.25 mg Aspirin (Aspirin Chewable) 81 mg PO DAILY [facility] Last Admin: 03/11/18 09:39 Dose: 81 mg Benzonatate (Tessalon Perles) 100 mg PO TID [facility] Last Admin: 03/11/18 18:14 Dose: Not Given Budesonide (Pulmicort Respules) 0.5 mg INH RQ12 [facility] Last Admin: 03/11/18 07:40 Dose: Not Given Docusate Sodium (Colace) 100 mg PO BID [facility] Last Admin: 03/11/18 18:14 Dose: Not Given Epoetin Mario (Procrit) 20,000 unit IV TTS [facility] Last Admin: 03/09/18 13:05 Dose: 20,000 unit Ferric Sodium Gluconate Complex (Ferrlecit) 125 mg IVPB TTS [facility] Stop: 03/15/18 10:01 Last Admin: 03/09/18 09:22 Dose: 125 mg Furosemide (Lasix) 40 mg PO DAILY [facility] Last Admin: 03/11/18 09:39 Dose: 40 mg Cefepime HCl 1 gm/ Dextrose 50 mls @ 100 mls/hr IVPB Q12H [facility] PRN Reason: Protocol Last Admin: 03/11/18 09:28 Dose: 100 mls/hr Heparin Sodium/Sodium Chloride (Heparin 62480 Units/250ml 1/2 Normal Saline) 25 ,000 units in 250 mls @ 8 mls/hr IV .Q24H PRN; Protocol PRN Reason: ADJUST RATE PER PROTOCOL Last Admin: 03/11/18 10:23 Dose: 8 ml/hr, 8 mls/hr Insulin Human Regular (Novolin R) 0 unit SC ACHS [facility] PRN Reason: Protocol Last Admin: 03/11/18 16:56 Dose: Not Given Lactulose (Enulose) 20 gm PO DAILY PRN PRN Reason: FOR CONSTIPATION Lidocaine/Prilocaine (Emla) 0 gm TOP TuThSa PRN PRN Reason: FOR PAIN Last Admin: 03/09/18 08:56 Dose: 1 applic Lisinopril (Zestril) 2.5 mg PO DAILY [facility] Last Admin: 03/11/18 09:44 Dose: 2.5 mg Midodrine (Proamatine) 5 mg PO MWF [facility] Last Admin: 03/11/18 09:43 Dose: 5 mg Ondansetron HCl (Zofran Tab) 4 mg PO Q8H PRN PRN Reason: Nausea/Vomiting Paricalcitol (Zemplar) 2 mcg IV TTS [facility] Last Admin: 03/09/18 13:20 Dose: 2 mcg Polyethylene Glycol (Miralax) 17 gm PO DAILY [facility] Last Admin: 03/11/18 09:39 Dose: 17 gm Rosuvastatin Calcium (Crestor) 10 mg PO HS [facility] Last Admin: 03/10/18 21:24 Dose: 10 mg Saliva Substitute (First Magic Mouthwash) 10 ml PO QID [facility] Last Admin: 03/11/18 18:14 Dose: Not Given Sevelamer Carbonate (Renvela) 800 mg PO TIDCC [facility] Last Admin: 03/11/18 18:14 Dose: Not Given Ticagrelor (Brilinta) 90 mg PO BID [facility] Last Admin: 03/11/18 18:14 Dose: Not Given Vitamin B Complex/Vit C/Folic Acid (Nephro-Renaldo) 1 tab PO DAILY [facility] Last Admin: 03/11/18 09:39 Dose: 1 tab - Labs Labs: 03/11/18 18:04 03/11/18 18:04 PT 13.5 SECONDS (9.7-12.2) H 03/10/18 03:29 INR 1.2 03/10/18 03:29 APTT 47 SECONDS (21-34) H D 03/11/18 16:57
[2018-03-11] MEDS: Albumin Human 25% (12.5 gm/50 ml) IV ONE ×2 (19:20→19:30)
[2018-03-11] MEDS ORDERED: Albumin Human 25% (12.5 gm/50 ml) IV ONE (19:30)
--- NOTE | 2018-03-11 20:51 | CP.PCM.PN ---
Subjective - Date & Time of Evaluation Date of Evaluation: 03/11/18 Time of Evaluation: 09:00 - Subjective Subjective: Awake no chest pain NAD Cardiac cath cancelled due to scheduling problems Objective - Vital Signs/Intake and Output Vital Signs (last 24 hours): Temp Pulse Resp BP Pulse Ox 98 F 80 18 112/47 L 100 03/11/18 17:10 03/11/18 20:15 03/11/18 20:15 03/11/18 20:15 03/11/18 20:15 Intake and Output: 03/11/18 03/12/18 18:59 06:59 Intake Total 456 Balance 456 - Medications Medications: Current Medications Acetaminophen (Tylenol 325mg Tab) 650 mg PO Q6 PRN PRN Reason: Pain, Mild (1-3) Last Admin: 03/11/18 16:12 Dose: 650 mg Albuterol/Ipratropium (Duoneb 3 Mg/0.5 Mg (3 Ml) Ud) 3 ml INH RQ6 [facility] Last Admin: 03/11/18 19:30 Dose: Not Given Alprazolam (Xanax) 0.25 mg PO Q6H PRN PRN Reason: Anxiety Last Admin: 03/11/18 13:44 Dose: 0.25 mg Aspirin (Aspirin Chewable) 81 mg PO DAILY [facility] Last Admin: 03/11/18 09:39 Dose: 81 mg Benzonatate (Tessalon Perles) 100 mg PO TID [facility] Last Admin: 03/11/18 18:14 Dose: Not Given Budesonide (Pulmicort Respules) 0.5 mg INH RQ12 [facility] Last Admin: 03/11/18 19:30 Dose: Not Given Docusate Sodium (Colace) 100 mg PO BID [facility] Last Admin: 03/11/18 18:14 Dose: Not Given Epoetin Mario (Procrit) 20,000 unit IV TTS [facility] Last Admin: 03/09/18 13:05 Dose: 20,000 unit Ferric Sodium Gluconate Complex (Ferrlecit) 125 mg IVPB TTS [facility] Stop: 03/15/18 10:01 Last Admin: 03/09/18 09:22 Dose: 125 mg Furosemide (Lasix) 40 mg PO DAILY [facility] Last Admin: 03/11/18 09:39 Dose: 40 mg Cefepime HCl 1 gm/ Dextrose 50 mls @ 100 mls/hr IVPB Q12H [facility] PRN Reason: Protocol Last Admin: 03/11/18 09:28 Dose: 100 mls/hr Heparin Sodium/Sodium Chloride (Heparin 40011 Units/250ml 1/2 Normal Saline) 25 ,000 units in 250 mls @ 8 mls/hr IV .Q24H PRN; Protocol PRN Reason: ADJUST RATE PER PROTOCOL Last Admin: 03/11/18 10:23 Dose: 8 ml/hr, 8 mls/hr Insulin Human Regular (Novolin R) 0 unit SC ACHS [facility] PRN Reason: Protocol Last Admin: 03/11/18 16:56 Dose: Not Given Lactulose (Enulose) 20 gm PO DAILY PRN PRN Reason: FOR CONSTIPATION Lidocaine/Prilocaine (Emla) 0 gm TOP TuThSa PRN PRN Reason: FOR PAIN Last Admin: 03/09/18 08:56 Dose: 1 applic Lisinopril (Zestril) 2.5 mg PO DAILY [facility] Last Admin: 03/11/18 09:44 Dose: 2.5 mg Midodrine (Proamatine) 5 mg PO MWF [facility] Last Admin: 03/11/18 09:43 Dose: 5 mg Ondansetron HCl (Zofran Tab) 4 mg PO Q8H PRN PRN Reason: Nausea/Vomiting Paricalcitol (Zemplar) 2 mcg IV TTS [facility] Last Admin: 03/09/18 13:20 Dose: 2 mcg Polyethylene Glycol (Miralax) 17 gm PO DAILY [facility] Last Admin: 03/11/18 09:39 Dose: 17 gm Rosuvastatin Calcium (Crestor) 10 mg PO HS [facility] Last Admin: 03/10/18 21:24 Dose: 10 mg Saliva Substitute (First Magic Mouthwash) 10 ml PO QID [facility] Last Admin: 03/11/18 18:14 Dose: Not Given Sevelamer Carbonate (Renvela) 800 mg PO TIDCC [facility] Last Admin: 03/11/18 18:14 Dose: Not Given Ticagrelor (Brilinta) 90 mg PO BID [facility] Last Admin: 03/11/18 18:14 Dose: Not Given Vitamin B Complex/Vit C/Folic Acid (Nephro-Renaldo) 1 tab PO DAILY [facility] Last Admin: 03/11/18 09:39 Dose: 1 tab - Labs Labs: 03/11/18 18:04 03/11/18 18:04 PT 13.5 SECONDS (9.7-12.2) H 03/10/18 03:29 INR 1.2 03/10/18 03:29 APTT 47 SECONDS (21-34) H D 03/11/18 16:57 - Constitutional Appears: Non-toxic - Head Exam Head Exam: NORMAL INSPECTION - Eye Exam Eye Exam: absent: Scleral icterus - ENT Exam ENT Exam: Mucous Membranes Moist - Neck Exam Neck Exam: Full ROM - Respiratory Exam Respiratory Exam: Clear to Ausculation Bilateral - Cardiovascular Exam Cardiovascular Exam: REGULAR RHYTHM - GI/Abdominal Exam GI & Abdominal Exam: Soft - Extremities Exam Extremities Exam: absent: Pedal Edema Assessment and Plan - Assessment and Plan (Free Text) Assessment: ACS EDITH ESRD T2dm Plan: We will re-schedule cardiac cath in am Cont meds Case discussed with Dr Medina
--- NOTE | 2018-03-12 04:08 | PN ---
Copied To: Martin Ortiz MD Attending MD: Martin Ortiz MD DATE: 03/11/2018 FOLLOWUP RENAL CONSULTATION LOCATION: The patient is located in room 650, bed A. REASON FOR FOLLOWUP: End-stage renal disease, fluid overload, for continuation of hemodialysis and shortness of breath. SUBJECTIVE: Mr. Gonzales is a 67-year-old elderly [place]inean male with a past medical history significant for longstanding hypertension, diabetes, end-stage renal disease, coronary artery disease, status post CABG, CVA with left-sided weakness, mostly bedridden, who was suddenly unresponsive during dialysis and tried to wake him up and unable to wake him up and CPR was started, and subsequently the patient was awake, and EMS transferred the patient to the emergency room for further evaluation. The patient was admitted to the medical floor initially. Then transferred to ICU after developing chest pain during fistulogram. The patient is not in acute distress. Initially, the patient was hypotensive this evening with initiation of the hemodialysis, but subsequently his blood pressure improved with albumin. goal is about 3.3 liters. Denies any complaints. No chest pain, no palpitation. No fever. No cough. No abdominal pain. No nausea, vomiting, or diarrhea. PHYSICAL EXAMINATION: VITAL SIGNS: As follows: His blood pressure this evening is 123/45, pulse 80, respirations 17, and saturation 99%, and temperature 98. GENERAL: Mr. Gonzales is a 67-year-old elderly [place] male, moderately built, moderately nourished, not in acute distress, on nasal cannula with 99% saturation. HEENT: Pupils normal and reactive to light and accommodation. Conjunctivae pink. Sclerae anicteric. Tongue is moist. NECK: Trachea is midline. LUNGS: Symmetric on both sides. Bilateral breath sounds present. Bilateral basal crackles present. CVS: [place] at the fifth intercostal space, midclavicular line. S1, S2 audible. No murmur or gallop. The patient has a midsternal scar present from the previous CABG. ABDOMEN: Normal in appearance, soft, tympanic. No guarding. No rigidity. No hepatosplenomegaly. PHYSICAL THERAPY ASSISTANT INSTRUCTOR: The patient is alert, awake, and oriented x3. Sensory and motor system are within normal limits on the right side. The patient has left-sided weakness from the previous CVA. EXTREMITIES: No cyanosis, no clubbing. The patient has 2+ edema in both lower extremities, left more than the right. CURRENT MEDICATIONS: Include as follows: Aspirin 81 mg daily, Brilinta 90 mg p.o. b.i.d., cefepime 1 g every 24 hours, Colace 100 mg p.o. b.i.d., Crestor 10 mg p.o. at bedtime, EMLA cream, lactulose, ferrous gluconate, Lasix, MiraLAX, Nephro-Renaldo, insulin for sliding scale, midodrine 5 mg three times a week, Procrit 20,000 units three times a week, Pulmicort, Renvela, allopurinol, Zemplar, lisinopril, and Zofran. ASSESSMENT AND PLAN: In summary, Mr. Gonzales is a 67-year-old elderly [place]inean male with hypertension, diabetes, congestive heart failure, coronary artery disease, status post coronary artery bypass graft, cerebrovascular accident with left-sided weakness, chronic obstructive pulmonary disease, asthma, who was admitted with unresponsiveness initially, status post cardiopulmonary resuscitation initiation in the hemodialysis unit, subsequently transferred to the emergency room for further management, and also found to have elevated pCO2 on arterial blood gas, and also bilateral crackles and edema of the legs. 1. End-stage renal disease. Continue hemodialysis as needed. The patient is receiving extra hemodialysis for fluid overload. We will continue with three times a week hemodialysis Sunday, , Sunday from tomorrow. 2. Hypertension. Blood pressure is stable. Continue his current medications. Continue lisinopril 2.5 mg and hold for systolic blood pressure less than 120. Continue Renvela. Continue Zemplar and Procrit. Continue cefepime 1 g every 12 hours. We will follow with you. The patient had ultrafiltration about 3 liters during dialysis this evening. Thank you for allowing me to participate in your patient's care. Martin Ortiz MD
[2018-03-12 05:16] LABS: HEMOGLOBIN 9.4 g/dL (12.0-18.0); MEAN CELL VOLUME 103.5 fL (80.0-94.0); MEAN CORPUSCULAR HGB CONC 30.9 g/dL (33.0-37.0); MEAN PLATELET VOLUME 8.4 fL (7.2-11.7); RBC 2.93 Mil/uL (4.40-5.90); RED CELL DISTRIBUTION WIDTH 17.2 % (11.5-14.5); WHITE BLOOD COUNT 5.8 K/uL (4.8-10.8)
[2018-03-12 05:25] LABS: ALB/GLOB RATIO 1.1 (1.0-2.1); ALBUMIN 3.4 g/dL (3.5-5.0); CALCIUM 8.5 mg/dl (8.6-10.4)
--- NOTE | 2018-03-12 07:15 | CP.PCM.PN ---
Subjective - Date & Time of Evaluation Date of Evaluation: 03/11/18 Time of Evaluation: 11:00 - Subjective Subjective: Podiatry Progress Note- Dr. East 67 y.o male seen and evaluated with attending at bedside. Patient is resting in bed comfortably and in NAD. Patient is alert and awake. Patient is unable to walk and has recently developed heel breakdown. Patient resting in bed with multipodus boots bilaterally. He denies any other pedal complaints at this time. Denies N/V/F. Objective - Vital Signs/Intake and Output Vital Signs (last 24 hours): Temp Pulse Resp BP Pulse Ox 98.1 F 84 20 122/60 97 03/11/18 23:00 03/12/18 02:56 03/11/18 23:00 03/11/18 23:00 03/11/18 23:00 - Medications Medications: Current Medications Acetaminophen (Tylenol 325mg Tab) 650 mg PO Q6 PRN PRN Reason: Pain, Mild (1-3) Last Admin: 03/11/18 22:27 Dose: 650 mg Alprazolam (Xanax) 0.25 mg PO Q6H PRN PRN Reason: Anxiety Last Admin: 03/11/18 23:51 Dose: 0.25 mg Aspirin (Aspirin Chewable) 81 mg PO DAILY [facility] Last Admin: 03/11/18 09:39 Dose: 81 mg Benzonatate (Tessalon Perles) 100 mg PO TID [facility] Last Admin: 03/11/18 18:14 Dose: Not Given Budesonide (Pulmicort Respules) 0.5 mg INH RQ12 [facility] Last Admin: 03/11/18 19:30 Dose: Not Given Docusate Sodium (Colace) 100 mg PO BID [facility] Last Admin: 03/11/18 18:14 Dose: Not Given Epoetin Mario (Procrit) 20,000 unit IV TTS [facility] Last Admin: 03/09/18 13:05 Dose: 20,000 unit Ferric Sodium Gluconate Complex (Ferrlecit) 125 mg IVPB TTS [facility] Stop: 03/15/18 10:01 Last Admin: 03/09/18 09:22 Dose: 125 mg Furosemide (Lasix) 40 mg PO DAILY [facility] Last Admin: 03/11/18 09:39 Dose: 40 mg Cefepime HCl 1 gm/ Dextrose 50 mls @ 100 mls/hr IVPB Q12H [facility] PRN Reason: Protocol Last Admin: 03/11/18 21:32 Dose: 100 mls/hr Insulin Human Regular (Novolin R) 0 unit SC ACHS [facility] PRN Reason: Protocol Last Admin: 03/11/18 22:16 Dose: Not Given Lactulose (Enulose) 20 gm PO DAILY PRN PRN Reason: FOR CONSTIPATION Lidocaine/Prilocaine (Emla) 0 gm TOP TuThSa PRN PRN Reason: FOR PAIN Last Admin: 03/09/18 08:56 Dose: 1 applic Lisinopril (Zestril) 2.5 mg PO DAILY [facility] Last Admin: 03/11/18 09:44 Dose: 2.5 mg Midodrine (Proamatine) 5 mg PO MWF [facility] Last Admin: 03/11/18 09:43 Dose: 5 mg Ondansetron HCl (Zofran Tab) 4 mg PO Q8H PRN PRN Reason: Nausea/Vomiting Paricalcitol (Zemplar) 2 mcg IV TTS [facility] Last Admin: 03/09/18 13:20 Dose: 2 mcg Polyethylene Glycol (Miralax) 17 gm PO DAILY [facility] Last Admin: 03/11/18 09:39 Dose: 17 gm Rosuvastatin Calcium (Crestor) 10 mg PO HS [facility] Last Admin: 03/11/18 21:31 Dose: 10 mg Saliva Substitute (First Magic Mouthwash) 10 ml PO QID [facility] Last Admin: 03/11/18 22:16 Dose: Not Given Sevelamer Carbonate (Renvela) 800 mg PO TIDCC [facility] Last Admin: 03/11/18 18:14 Dose: Not Given Ticagrelor (Brilinta) 90 mg PO BID [facility] Last Admin: 03/11/18 18:14 Dose: Not Given Vitamin B Complex/Vit C/Folic Acid (Nephro-Renaldo) 1 tab PO DAILY [facility] Last Admin: 03/11/18 09:39 Dose: 1 tab - Labs Labs: 03/12/18 05:03 03/12/18 05:03 PT 13.5 SECONDS (9.7-12.2) H 03/10/18 03:29 INR 1.2 03/10/18 03:29 APTT 45 SECONDS (21-34) H 03/11/18 22:35 - Constitutional Appears: Well, Non-toxic, No Acute Distress - Extremities Exam Extremities Exam: absent: Calf Tenderness Additional comments: Vascular: DP/PT nonpalpable secondary to +2 pitting edema. CFT >3 seconds to all digits. TG warm to warm bilaterally Ortho: No pain upon palpation of calf compression, no pain upon palpation of left plantar heel, no gross deformities noted Neuro: Unable to assess Derm: Left: Superficial skin breakdown of left plantar heel measuring approximately 1 x 1 x .1- healing. Skin is friable. No drainage, no purulence, no erythema, no streaking, no probe to bone, no clinical signs of infection. Right: no open lesions, no erythema, no streaking, no clinical signs of infection Assessment and Plan - Assessment and Plan (Free Text) Assessment: 67 yo male patient, with PMHx of CVA, CHF, HTN, ESRD, seen and evaluated for left heel superficial ulceration secondary to pressure- healing Plan: Patient seen and evaluated with attending at bedside Chart, labs, and vitals reviewed; afebrile, absent leukocytosis Left heel padded with ABD pad and Kerlix Multipodus boots to be worn at all times while in bed Will continue to monitor
[2018-03-12] MEDS ORDERED: Heparin 0 ML IV ONE (07:51)
[2018-03-12] MEDS ORDERED: Iodixanol 320 MG/ML 200 ML BOTTLE IV ONE (07:52)
[2018-03-12] MEDS ORDERED: Lidocaine 2% MPF (5 ml) Inj ONE ×2 (07:52→08:33)
[2018-03-12] MEDS: (Novolin R) Insulin Human Regular 100 units/ml vial SC SCH ×4 (08:04→21:38)
[2018-03-12] MEDS ORDERED: DiphenhydrAMINE 50 mg/ml Inj ONE (08:32)
[2018-03-12] MEDS ORDERED: Albuterol 0.083% Inhal Sol (2.5 mg/3 mL) UD ONE (08:41)
[2018-03-12] MEDS ORDERED: Albuterol 0.083% Inhal Sol (2.5 mg/3 mL) UD INH STA (09:00)
[2018-03-12] MEDS: Budesonide 0.5 mg/2 ml Inhal Susp UD INH SCH ×2 (09:33→20:08)
--- NOTE | 2018-03-12 09:47 | CP.PCM.PN ---
Subjective - Date & Time of Evaluation Date of Evaluation: 03/12/18 Time of Evaluation: 09:46 - Subjective Subjective: pt is seen and examined, follow up, consult is dictated #[id number] seein hd, uf 3 lit Objective - Vital Signs/Intake and Output Vital Signs (last 24 hours): Temp Pulse Resp BP Pulse Ox 97.5 F L 80 18 133/49 L 99 03/12/18 07:00 03/12/18 07:30 03/12/18 07:00 03/12/18 07:00 03/12/18 07:00 Intake and Output: 03/12/18 03/12/18 06:59 18:59 Intake Total 40 Balance 40 - Medications Medications: Current Medications Acetaminophen (Tylenol 325mg Tab) 650 mg PO Q6 PRN PRN Reason: Pain, Mild (1-3) Last Admin: 03/11/18 22:27 Dose: 650 mg Alprazolam (Xanax) 0.25 mg PO Q6H PRN PRN Reason: Anxiety Last Admin: 03/11/18 23:51 Dose: 0.25 mg Aspirin (Aspirin Chewable) 81 mg PO DAILY [facility] Last Admin: 03/11/18 09:39 Dose: 81 mg Benzonatate (Tessalon Perles) 100 mg PO TID [facility] Last Admin: 03/11/18 18:14 Dose: Not Given Budesonide (Pulmicort Respules) 0.5 mg INH RQ12 [facility] Last Admin: 03/12/18 09:33 Dose: Not Given Docusate Sodium (Colace) 100 mg PO BID [facility] Last Admin: 03/11/18 18:14 Dose: Not Given Epoetin Mario (Procrit) 20,000 unit IV TTS [facility] Last Admin: 03/09/18 13:05 Dose: 20,000 unit Ferric Sodium Gluconate Complex (Ferrlecit) 125 mg IVPB TTS [facility] Stop: 03/15/18 10:01 Last Admin: 03/09/18 09:22 Dose: 125 mg Furosemide (Lasix) 40 mg PO DAILY [facility] Last Admin: 03/11/18 09:39 Dose: 40 mg Cefepime HCl 1 gm/ Dextrose 50 mls @ 100 mls/hr IVPB Q12H [facility] PRN Reason: Protocol Last Admin: 03/11/18 21:32 Dose: 100 mls/hr Insulin Human Regular (Novolin R) 0 unit SC ACHS [facility] PRN Reason: Protocol Last Admin: 03/12/18 08:04 Dose: Not Given Lactulose (Enulose) 20 gm PO DAILY PRN PRN Reason: FOR CONSTIPATION Lidocaine/Prilocaine (Emla) 0 gm TOP TuThSa PRN PRN Reason: FOR PAIN Last Admin: 03/09/18 08:56 Dose: 1 applic Lisinopril (Zestril) 2.5 mg PO DAILY [facility] Last Admin: 03/11/18 09:44 Dose: 2.5 mg Midodrine (Proamatine) 5 mg PO MWF [facility] Last Admin: 03/11/18 09:43 Dose: 5 mg Ondansetron HCl (Zofran Tab) 4 mg PO Q8H PRN PRN Reason: Nausea/Vomiting Paricalcitol (Zemplar) 2 mcg IV TTS [facility] Last Admin: 03/09/18 13:20 Dose: 2 mcg Polyethylene Glycol (Miralax) 17 gm PO DAILY [facility] Last Admin: 03/11/18 09:39 Dose: 17 gm Rosuvastatin Calcium (Crestor) 10 mg PO HS [facility] Last Admin: 03/11/18 21:31 Dose: 10 mg Saliva Substitute (First Magic Mouthwash) 10 ml PO QID [facility] Last Admin: 03/11/18 22:16 Dose: Not Given Sevelamer Carbonate (Renvela) 800 mg PO TIDCC [facility] Last Admin: 03/12/18 08:05 Dose: Not Given Ticagrelor (Brilinta) 90 mg PO BID [facility] Last Admin: 03/11/18 18:14 Dose: Not Given Vitamin B Complex/Vit C/Folic Acid (Nephro-Renaldo) 1 tab PO DAILY [facility] Last Admin: 03/11/18 09:39 Dose: 1 tab - Labs Labs: 03/12/18 05:03 03/12/18 05:03 PT 13.5 SECONDS (9.7-12.2) H 03/10/18 03:29 INR 1.2 03/10/18 03:29 APTT 35 SECONDS (21-34) H D 03/12/18 05:03
[2018-03-12] MEDS: Mag&Al/Simet/Diphen/Lido 237 ML KIT PO SCH ×3 (10:20→21:37)
[2018-03-12] MEDS: POLYETHYLENE GLYCOL 3350 17 GM/Dose PACKET PO SCH (10:21)
[2018-03-12] MEDS: Multivitamin Vitamin B Complex (Nephro-Vite) Tab PO SCH (11:08)
--- NOTE | 2018-03-12 11:57 | PN ---
Copied To: Carlos Andrews DO Attending MD: Carlos Andrews DO DATE: 03/12/2018 SUBJECTIVE: I saw him resting comfortably in bed this morning. They could not do the cardiac cath just because the machine was broken, so they are going to do it today. I think they got a new machine. He is comfortable, ready for the procedure with Dr. Lucas, cardiac cath. He is on aspirin, Brilinta, cefepime, Colace, Crestor, EMLA, Enulose, Prilosec, Magic mouthwash, Lasix, MiraLax, Nephro-Renaldo, Novolin, ProAmatine, Procrit, Pulmicort, Renvela, Tessalon Perles, Tylenol, Xanax, Zemplar, Zestril, and Zofran. He has no complaints this morning. No chest pain or shortness of breath. No abdominal pain. Slept very well last night. PHYSICAL EXAMINATION: VITAL SIGNS: He has a 98.1 temp, 84 pulse, 122/60 blood pressure, 20 respiratory rate, 97% O2 sat on BiPAP. HEENT: His head is atraumatic and normocephalic. HEART: Regular rate. LUNGS: Decreased breath sounds, but clear. ABDOMEN: Soft, obese. Nontender. Positive bowel sounds. No guarding. No rebound. No CVA tenderness. EXTREMITIES: No edema. There is an ulcer on the heel. LABORATORY DATA: He has a 5.8 white count, 9.4 hemoglobin, 30.3 hematocrit, and 108 platelets. A 142 sodium, potassium is 4.2, BUN is 16, creatinine is 2.8, sugar is 101, calcium is 8.5, total bili is 0.7, AST is 18, ALT is 35, alk phos 92, total protein 6.4. Urine was positive. ASSESSMENT AND PLAN: He is being seen by Renal, Pulmonary, Cardiology, Infectious Disease. We will check his labs tomorrow. Hopefully, if he does well with his cardiac catheterization, I can get the fistulogram back on schedule with Dr. Medina and continue to improve, we will check his labs tomorrow. Carlos Andrews DO MTDRenata
[2018-03-12] MEDS: Ferric Sodium Gluconat Complex 62.5 mg/5 ml Vial IVPB SCH (12:19)
[2018-03-12] MEDS: Epoetin Alfa Dialysis 20000 UNIT/ML Inj IV SCH (12:20)
--- NOTE | 2018-03-12 16:55 | CARD ---
APPROVED REPORT Date of service: 03/09/2018 EKG Measurement Heart [id number] <Conclusion> Ventricular-paced rhythm Abnormal ECG
--- NOTE | 2018-03-12 17:34 | CARD ---
APPROVED REPORT Date of service: 03/11/2018 EKG Measurement Heart [id number] <Conclusion> Ventricular-paced rhythm Abnormal ECG
--- NOTE | 2018-03-13 03:50 | PN ---
Copied To: Martin Ortiz MD Attending MD: Martin Ortiz MD DATE: 03/12/2018 FOLLOWUP RENAL CONSULTATION LOCATION: The patient is located in room 650, bed A. REQUESTED BY: Carlos Andrews DO REASON FOR RENAL CONSULTATION: End-stage renal disease, congestive heart failure, and for continuation of hemodialysis. HISTORY OF PRESENT ILLNESS: Mr. Gonzales is a 67-year-old male with a past medical history significant for longstanding hypertension, diabetes, coronary artery disease, status post CABG, CHF, COPD and CVA with left-sided weakness who was admitted with unresponsiveness and status post initiation of CPR in the dialysis unit, and subsequently, the patient was transferred to [facility] ER and admitted. The patient was seen and examined during dialysis, and the patient has a difficulty for the nurse to cannulate the AV graft this morning. Denies any chest pain. The patient was scheduled for cardiac cath this morning. The patient went downstairs for cardiac cath, and the patient was found to be very drowsy as per the leases and land supervisor, Dr. Nando Quispe, and cardiac cath was postponed, and sent to the [facility]. UF goal is about 3.3 liters. The patient is awake and following commands appropriately, not in distress on nasal cannula. PHYSICAL EXAMINATION: VITAL SIGNS: As follows: Blood pressure 143/64, pulse 80, respirations 20, temperature 97.5, and saturation 100% on nasal cannula 3 liters. Height 5 feet 3 inches and weight is 208 pounds. GENERAL: Mr. Gonzales is a 67-year-old male, well-built, well-nourished, not in distress, mostly bedridden. HEENT: Pupils normal and reactive to light and accommodation. Conjunctivae pink. Sclerae anicteric. Tongue is moist. Trachea is midline. LUNGS: Symmetric on both sides. Bilateral breath sounds present. Occasional basal crackles present. CVS: [place] at the fifth intercostal space, midclavicular line. S1, S2 audible. No murmur or gallop. ABDOMEN: Normal in appearance, soft, tympanitic. No guarding. No rigidity. No hepatosplenomegaly. PNEUMATIC TESTER MECHANIC: The patient is alert, awake, oriented times two to three. Sensory and motor system is within normal limits. EXTREMITIES: No cyanosis, no clubbing. The patient has 1+ edema in both lower extremities, left more than the right. The patient also has weakness on the left side, both left upper extremity and lower extremity. Power was 1 to 2 on the left side. MEDICATIONS: His current medications include as follows: Aspirin 81 mg daily; Brilinta 90 mg p.o. b.i.d.; cefepime 1 g every 12 hours; Colace 100 mg p.o. b.i.d.; Crestor 10 mg at bedtime; EMLA cream; lactulose 20 g p.o. daily; Ferrlecit 125 mg three times a week; subcu heparin 5000 units every 12 hours; Lasix 40 mg p.o. daily; MiraLax 17 g p.o. daily; Novolin R for sliding scale; midodrine 5 mg three times a week Sunday, Sunday, and Sunday; Procrit 20,000 units 3 times a week; Pulmicort 0.5 mg inhaler every 12 hours; Renvela 800 mg t.i.d.; Tessalon Perles; Tylenol; Xanax; Zemplar; and lisinopril. LABORATORY DATA: Include as follows: As of 03/12/2018, WBC of 5.8, hemoglobin 9.4, hematocrit is 30.3, platelets 108, PTT 35. Sodium 142, potassium 4.2, chloride 100, CO2 of 28, BUN 16, creatinine 2.8, glucose 96, calcium 8.5. Total bili 0.7, AST 18, ALT 35, alkaline phosphatase 92, total protein 6.4, albumin is 3.4. IMPRESSION: In summary, Mr. Gonzales is a 67-year-old elderly Chinese male with a history of longstanding hypertension, diabetes, coronary artery disease, status post coronary artery bypass grafting, cerebrovascular accident with left-sided weakness, chronic obstructive pulmonary disease, congestive heart failure, status post pacemaker placement who was admitted with unresponsiveness, status post initiation of CPR in the dialysis, and subsequently, the patient was admitted to the medical floor. From there, the patient was admitted to ICU with chest pain after initiation of the fistulogram, and suddenly, patient started complaining of chest pain and shortness of breath and admitted to ICU. The patient was ruled out for acute myocardial infarction, and subsequently, transferred back to the floor. The patient was scheduled for cardiac cath this morning and procedure was postponed due to drowsiness. 1. End-stage renal disease. Continue hemodialysis three times a week; Sunday, , Sunday. We will try to ultrafiltrate as much as the patient can tolerate and restrict fluids to 1 liter per day. The patient is very noncompliant with diet and fluids. 2. Hypertension. Blood pressure is stable. Continue his current medications. Continue midodrine. 3. Congestive heart failure secondary to fluid overload. 4. Coronary artery disease, on and off chest pain, and awaiting for the cardiac cath. Procedure was postponed today due to drowsiness as per the leases and land supervisor. We will follow with you. Thank you for allowing me to participate in your patient's care. Overall prognosis is guarded. Martin Ortiz MD
[2018-03-13 07:25] LABS: HEMOGLOBIN 10.2 g/dL (12.0-18.0); MEAN CELL VOLUME 103.9 fL (80.0-94.0); MEAN CORPUSCULAR HEMOGLOBIN 32.4 pg (27.0-31.0); MEAN CORPUSCULAR HGB CONC 31.1 g/dL (33.0-37.0); MEAN PLATELET VOLUME 8.5 fL (7.2-11.7); RBC 3.15 Mil/uL (4.40-5.90); RED CELL DISTRIBUTION WIDTH 18.7 % (11.5-14.5); WHITE BLOOD COUNT 5.6 K/uL (4.8-10.8)
[2018-03-13] MEDS: (Novolin R) Insulin Human Regular 100 units/ml vial SC SCH ×4 (07:32→21:46)
[2018-03-13 07:51] LABS: ALB/GLOB RATIO 1.2 (1.0-2.1); ALBUMIN 3.4 g/dL (3.5-5.0); CALCIUM 8.8 mg/dl (8.6-10.4)
[2018-03-13] MEDS: Budesonide 0.5 mg/2 ml Inhal Susp UD INH SCH ×2 (08:02→19:33)
[2018-03-13] MEDS: Mag&Al/Simet/Diphen/Lido 237 ML KIT PO SCH ×5 (08:40→21:46)
[2018-03-13] MEDS: Multivitamin Vitamin B Complex (Nephro-Vite) Tab PO SCH (09:05)
[2018-03-13] MEDS: POLYETHYLENE GLYCOL 3350 17 GM/Dose PACKET PO SCH (09:06)
--- NOTE | 2018-03-13 09:50 | PN ---
Copied To: Carlos Andrews DO Attending MD: Carlos Andrews DO DATE: 03/13/2018 SUBJECTIVE: I saw him in bed with the BiPAP on. He is in pain. Tylenol is not helping him. I will put him on some morphine. He is uncomfortable. It looks like he had a cardiac cath on 03/11/2018 and on the 03/12/2018, and neither one was done. for his fistulogram, I am not sure. He is being seen by Cardiology, left the country and now Dr. Quispe is covering him. I do not see any notes from Dr. Quispe. We will see him. We need Dr. Medina to do a fistulogram. He is getting weaker in bed. PHYSICAL EXAMINATION: GENERAL: He is alert, talking, he is in pain. VITAL SIGNS: He has 98.5 temp, 80 pulse, 147/71 blood pressure, 20 respiratory rate, 95% O2 sat on 40% nasal cannula and BiPAP. HEENT: Head is atraumatic and normocephalic. HEART: Regular rate. LUNGS: Decreased breath sounds, but clear. ABDOMEN: Soft, obese, and nontender. EXTREMITIES: No edema. LABORATORY DATA: He has a 142 sodium, potassium 4.2, BUN 16, creatinine 2.8 on dialysis, sugar is 99, calcium is 8.5. Total bilirubin is 0.78, AST is 18, ALT is 35, alk phos 92. Total protein 6.4. White count is 5.8, hemoglobin 9.4, hematocrit 30.2, platelets of 108. ASSESSMENT AND PLAN: I will wait and see what the plan is with Cardiology and Vascular Surgery. We will check the labs tomorrow, and when I am told, I will go with the plan. We will continue with aggressive treatment and care. We will check the labs tomorrow. He is on aspirin, Brilinta, cefepime IV, Colace, Crestor, EMLA, Enulose, Ferrlecit, Magic mouthwash, heparin, Lasix, MiraLax, morphine now, Nephro-Renaldo, Novolin, ProAmatine, Procrit, Pulmicort, Renvela, Tessalon Perles, Tylenol, Xanax, Zemplar, Zestril, and Zofran. We will continue with aggressive treatment and care. Carlos Andrews DO [facility]
--- NOTE | 2018-03-13 16:41 | CP.PCM.PN ---
Subjective - Date & Time of Evaluation Date of Evaluation: 03/13/18 Time of Evaluation: 14:40 - Subjective Subjective: patient seen and examined Patient is off BiPAP during the daytime Denies any shortness of breath Possible cardiac cath tomorrow Continue present treatment Continue hemodialysis Objective - Vital Signs/Intake and Output Vital Signs (last 24 hours): Temp Pulse Resp BP Pulse Ox 98.6 F 80 20 139/55 L 99 03/13/18 15:43 03/13/18 15:43 03/13/18 15:43 03/13/18 15:43 03/13/18 15:43 Intake and Output: 03/13/18 03/13/18 06:59 18:59 Intake Total 120 Balance 120 - Medications Medications: Current Medications Acetaminophen (Tylenol 325mg Tab) 650 mg PO Q6 PRN PRN Reason: Pain, Mild (1-3) Last Admin: 03/13/18 00:05 Dose: 650 mg Alprazolam (Xanax) 0.25 mg PO Q6H PRN PRN Reason: Anxiety Last Admin: 03/13/18 00:05 Dose: 0.25 mg Aspirin (Aspirin Chewable) 81 mg PO DAILY [facility] Last Admin: 03/13/18 09:06 Dose: 81 mg Benzonatate (Tessalon Perles) 100 mg PO TID [facility] Last Admin: 03/13/18 14:53 Dose: 100 mg Budesonide (Pulmicort Respules) 0.5 mg INH RQ12 [facility] Last Admin: 03/13/18 08:02 Dose: 0.5 mg Docusate Sodium (Colace) 100 mg PO BID [facility] Last Admin: 03/13/18 09:06 Dose: 100 mg Epoetin Mario (Procrit) 20,000 unit IV TTS [facility] Last Admin: 03/12/18 12:20 Dose: 20,000 unit Ferric Sodium Gluconate Complex (Ferrlecit) 125 mg IVPB TTS [facility] Stop: 03/15/18 10:01 Last Admin: 03/12/18 12:19 Dose: 125 mg Furosemide (Lasix) 40 mg PO DAILY [facility] Last Admin: 03/13/18 09:06 Dose: 40 mg Heparin Sodium (Porcine) (Heparin) 5,000 units SC Q12 [facility] Last Admin: 03/13/18 09:06 Dose: 5,000 units Cefepime HCl 1 gm/ Dextrose 50 mls @ 100 mls/hr IVPB Q12H [facility] PRN Reason: Protocol Last Admin: 03/13/18 09:04 Dose: 100 mls/hr Insulin Human Regular (Novolin R) 0 unit SC ACHS [facility] PRN Reason: Protocol Last Admin: 03/13/18 15:04 Dose: Not Given Lactulose (Enulose) 20 gm PO DAILY PRN PRN Reason: FOR CONSTIPATION Lidocaine/Prilocaine (Emla) 0 gm TOP TuThSa PRN PRN Reason: FOR PAIN Last Admin: 03/09/18 08:56 Dose: 1 applic Lisinopril (Zestril) 2.5 mg PO DAILY [facility] Last Admin: 03/13/18 09:07 Dose: 2.5 mg Midodrine (Proamatine) 5 mg PO MWF [facility] Last Admin: 03/13/18 09:07 Dose: 5 mg Morphine Sulfate (Morphine) 1 mg IVP Q3H PRN PRN Reason: Pain, moderate (4-7) Last Admin: 03/13/18 14:52 Dose: 1 mg Ondansetron HCl (Zofran Tab) 4 mg PO Q8H PRN PRN Reason: Nausea/Vomiting Paricalcitol (Zemplar) 2 mcg IV TTS [facility] Last Admin: 03/09/18 13:20 Dose: 2 mcg Polyethylene Glycol (Miralax) 17 gm PO DAILY [facility] Last Admin: 03/13/18 09:06 Dose: 17 gm Rosuvastatin Calcium (Crestor) 10 mg PO HS [facility] Last Admin: 03/12/18 21:39 Dose: 10 mg Saliva Substitute (First Magic Mouthwash) 10 ml PO QID [facility] Last Admin: 03/13/18 14:53 Dose: 10 ml Sevelamer Carbonate (Renvela) 800 mg PO TIDCC [facility] Last Admin: 03/13/18 11:42 Dose: 800 mg Ticagrelor (Brilinta) 90 mg PO BID [facility] Last Admin: 03/13/18 09:07 Dose: 90 mg Vitamin B Complex/Vit C/Folic Acid (Nephro-Renaldo) 1 tab PO DAILY [facility] Last Admin: 03/13/18 09:05 Dose: 1 tab - Labs Labs: 03/13/18 07:14 03/13/18 07:14 PT 13.5 SECONDS (9.7-12.2) H 08/19/18 03:29 INR 1.2 03/10/18 03:29 APTT 41 SECONDS (21-34) H D 03/12/18 16:45 Assessment and Plan (1) Hypercapnic respiratory failure Status: Acute (2) ESRD on hemodialysis Status: Acute (3) COPD (chronic obstructive pulmonary disease) Status: Acute
--- NOTE | 2018-03-13 18:43 | CP.PCM.PN ---
Subjective - Date & Time of Evaluation Date of Evaluation: 03/13/18 Time of Evaluation: 08:00 - Subjective Subjective: afeb nad for cath in am Objective - Vital Signs/Intake and Output Vital Signs (last 24 hours): Temp Pulse Resp BP Pulse Ox 98.6 F 80 20 139/55 L 99 03/13/18 15:43 03/13/18 16:00 03/13/18 15:43 03/13/18 15:43 03/13/18 15:43 Intake and Output: 03/13/18 03/13/18 06:59 18:59 Intake Total 120 Balance 120 - Medications Medications: Current Medications Acetaminophen (Tylenol 325mg Tab) 650 mg PO Q6 PRN PRN Reason: Pain, Mild (1-3) Last Admin: 03/13/18 00:05 Dose: 650 mg Alprazolam (Xanax) 0.25 mg PO Q6H PRN PRN Reason: Anxiety Last Admin: 03/13/18 00:05 Dose: 0.25 mg Aspirin (Aspirin Chewable) 81 mg PO DAILY [facility] Last Admin: 03/13/18 09:06 Dose: 81 mg Benzonatate (Tessalon Perles) 100 mg PO TID [facility] Last Admin: 03/13/18 17:58 Dose: 100 mg Budesonide (Pulmicort Respules) 0.5 mg INH RQ12 [facility] Last Admin: 03/13/18 08:02 Dose: 0.5 mg Docusate Sodium (Colace) 100 mg PO BID [facility] Last Admin: 03/13/18 17:58 Dose: 100 mg Epoetin Mario (Procrit) 20,000 unit IV TTS [facility] Last Admin: 03/12/18 12:20 Dose: 20,000 unit Ferric Sodium Gluconate Complex (Ferrlecit) 125 mg IVPB TTS [facility] Stop: 03/15/18 10:01 Last Admin: 03/12/18 12:19 Dose: 125 mg Furosemide (Lasix) 40 mg PO DAILY [facility] Last Admin: 03/13/18 09:06 Dose: 40 mg Heparin Sodium (Porcine) (Heparin) 5,000 units SC Q12 [facility] Last Admin: 03/13/18 09:06 Dose: 5,000 units Cefepime HCl 1 gm/ Dextrose 50 mls @ 100 mls/hr IVPB Q12H [facility] PRN Reason: Protocol Last Admin: 03/13/18 09:04 Dose: 100 mls/hr Insulin Human Regular (Novolin R) 0 unit SC ACHS [facility] PRN Reason: Protocol Last Admin: 03/13/18 17:54 Dose: Not Given Lactulose (Enulose) 20 gm PO DAILY PRN PRN Reason: FOR CONSTIPATION Lidocaine/Prilocaine (Emla) 0 gm TOP TuThSa PRN PRN Reason: FOR PAIN Last Admin: 03/09/18 08:56 Dose: 1 applic Lisinopril (Zestril) 2.5 mg PO DAILY [facility] Last Admin: 03/13/18 09:07 Dose: 2.5 mg Midodrine (Proamatine) 5 mg PO MWF [facility] Last Admin: 03/13/18 09:07 Dose: 5 mg Morphine Sulfate (Morphine) 1 mg IVP Q3H PRN PRN Reason: Pain, moderate (4-7) Last Admin: 03/13/18 14:52 Dose: 1 mg Ondansetron HCl (Zofran Tab) 4 mg PO Q8H PRN PRN Reason: Nausea/Vomiting Last Admin: 03/13/18 17:58 Dose: 4 mg Paricalcitol (Zemplar) 2 mcg IV TTS [facility] Last Admin: 03/09/18 13:20 Dose: 2 mcg Polyethylene Glycol (Miralax) 17 gm PO DAILY [facility] Last Admin: 03/13/18 09:06 Dose: 17 gm Rosuvastatin Calcium (Crestor) 10 mg PO HS [facility] Last Admin: 03/12/18 21:39 Dose: 10 mg Saliva Substitute (First Magic Mouthwash) 10 ml PO QID [facility] Last Admin: 03/13/18 17:58 Dose: 10 ml Sevelamer Carbonate (Renvela) 800 mg PO TIDCC [facility] Last Admin: 03/13/18 17:58 Dose: 800 mg Ticagrelor (Brilinta) 90 mg PO BID [facility] Last Admin: 03/13/18 17:58 Dose: 90 mg Vitamin B Complex/Vit C/Folic Acid (Nephro-Renaldo) 1 tab PO DAILY [facility] Last Admin: 03/13/18 09:05 Dose: 1 tab - Labs Labs: 03/13/18 07:14 03/13/18 07:14 PT 13.5 SECONDS (9.7-12.2) H 03/10/18 03:29 INR 1.2 03/10/18 03:29 APTT 41 SECONDS (21-34) H D 03/12/18 16:45 - Constitutional Appears: Non-toxic, Chronically Ill - Head Exam Head Exam: NORMOCEPHALIC - Eye Exam Eye Exam: PERRL - ENT Exam ENT Exam: Mucous Membranes Dry - Neck Exam Neck Exam: absent: Lymphadenopathy - Respiratory Exam Respiratory Exam: Decreased Breath Sounds - Cardiovascular Exam Cardiovascular Exam: REGULAR RHYTHM - GI/Abdominal Exam GI & Abdominal Exam: Distended - Rectal Exam Rectal Exam: Deferred - Exam Exam: NORMAL INSPECTION Assessment and Plan (1) Complicated urinary tract infection Status: Acute (2) ESRD on hemodialysis Status: Acute (3) Hypothermia Status: Acute (4) Respiratory acidosis Status: Acute (5) Acute hyperkalemia Status: Acute (6) Anemia Status: Acute (7) Arm pain Status: Acute (8) Atelectasis of right lung Status: Acute (9) CHF (congestive heart failure) Status: Acute (10) COPD (chronic obstructive pulmonary disease) Status: Acute
--- NOTE | 2018-03-13 20:43 | CP.PCM.PN ---
Subjective - Date & Time of Evaluation Date of Evaluation: 03/13/18 Time of Evaluation: 20:42 - Subjective Subjective: pt is seen and examined, follow up consult is dictated #[id number] Objective - Vital Signs/Intake and Output Vital Signs (last 24 hours): Temp Pulse Resp BP Pulse Ox 98.6 F 80 20 139/55 L 99 03/13/18 15:43 03/13/18 20:00 03/13/18 15:43 03/13/18 15:43 03/13/18 15:43 - Medications Medications: Current Medications Acetaminophen (Tylenol 325mg Tab) 650 mg PO Q6 PRN PRN Reason: Pain, Mild (1-3) Last Admin: 03/13/18 00:05 Dose: 650 mg Alprazolam (Xanax) 0.25 mg PO Q6H PRN PRN Reason: Anxiety Last Admin: 03/13/18 00:05 Dose: 0.25 mg Aspirin (Aspirin Chewable) 81 mg PO DAILY [facility] Last Admin: 03/13/18 09:06 Dose: 81 mg Benzonatate (Tessalon Perles) 100 mg PO TID [facility] Last Admin: 03/13/18 17:58 Dose: 100 mg Budesonide (Pulmicort Respules) 0.5 mg INH RQ12 [facility] Last Admin: 03/13/18 19:33 Dose: 0.5 mg Docusate Sodium (Colace) 100 mg PO BID [facility] Last Admin: 03/13/18 17:58 Dose: 100 mg Epoetin Mario (Procrit) 20,000 unit IV TTS [facility] Last Admin: 03/12/18 12:20 Dose: 20,000 unit Ferric Sodium Gluconate Complex (Ferrlecit) 125 mg IVPB TTS [facility] Stop: 03/15/18 10:01 Last Admin: 03/12/18 12:19 Dose: 125 mg Furosemide (Lasix) 40 mg PO DAILY [facility] Last Admin: 03/13/18 09:06 Dose: 40 mg Heparin Sodium (Porcine) (Heparin) 5,000 units SC Q12 [facility] Last Admin: 03/13/18 09:06 Dose: 5,000 units Cefepime HCl 1 gm/ Dextrose 50 mls @ 100 mls/hr IVPB Q12H [facility] PRN Reason: Protocol Last Admin: 03/13/18 09:04 Dose: 100 mls/hr Insulin Human Regular (Novolin R) 0 unit SC ACHS [facility] PRN Reason: Protocol Last Admin: 03/13/18 17:54 Dose: Not Given Lactulose (Enulose) 20 gm PO DAILY PRN PRN Reason: FOR CONSTIPATION Lidocaine/Prilocaine (Emla) 0 gm TOP TuThSa PRN PRN Reason: FOR PAIN Last Admin: 03/09/18 08:56 Dose: 1 applic Lisinopril (Zestril) 2.5 mg PO DAILY [facility] Last Admin: 03/13/18 09:07 Dose: 2.5 mg Midodrine (Proamatine) 5 mg PO MWF [facility] Last Admin: 03/13/18 09:07 Dose: 5 mg Morphine Sulfate (Morphine) 1 mg IVP Q3H PRN PRN Reason: Pain, moderate (4-7) Last Admin: 03/13/18 14:52 Dose: 1 mg Ondansetron HCl (Zofran Tab) 4 mg PO Q8H PRN PRN Reason: Nausea/Vomiting Last Admin: 03/13/18 17:58 Dose: 4 mg Paricalcitol (Zemplar) 2 mcg IV TTS [facility] Last Admin: 03/09/18 13:20 Dose: 2 mcg Polyethylene Glycol (Miralax) 17 gm PO DAILY [facility] Last Admin: 03/13/18 09:06 Dose: 17 gm Rosuvastatin Calcium (Crestor) 10 mg PO HS [facility] Last Admin: 03/12/18 21:39 Dose: 10 mg Saliva Substitute (First Magic Mouthwash) 10 ml PO QID [facility] Last Admin: 03/13/18 17:58 Dose: 10 ml Sevelamer Carbonate (Renvela) 800 mg PO TIDCC [facility] Last Admin: 03/13/18 17:58 Dose: 800 mg Ticagrelor (Brilinta) 90 mg PO BID [facility] Last Admin: 03/13/18 17:58 Dose: 90 mg Vitamin B Complex/Vit C/Folic Acid (Nephro-Renaldo) 1 tab PO DAILY [facility] Last Admin: 03/13/18 09:05 Dose: 1 tab - Labs Labs: 03/13/18 07:14 03/13/18 07:14 PT 13.5 SECONDS (9.7-12.2) H 03/10/18 03:29 INR 1.2 03/10/18 03:29 APTT 41 SECONDS (21-34) H D 03/12/18 16:45
[2018-03-14] MEDS ORDERED: Lidocaine 2% MPF (5 ml) Inj ONE (06:54)
[2018-03-14] MEDS ORDERED: Iodixanol 320 MG/ML 200 ML BOTTLE IV ONE (06:54)
[2018-03-14] MEDS ORDERED: DiphenhydrAMINE 50 mg/ml Inj ONE (06:59)
--- NOTE | 2018-03-14 07:19 | CP.PCM.PN ---
Subjective - Date & Time of Evaluation Date of Evaluation: 03/14/18 Time of Evaluation: 07:19 - Subjective Subjective: Surgery: Dr. Medina Pt seen and examined. No acute events overnight. For cardiac cath today. Will plan for shuntogram once cath is complete D/W attending Shravan PGY4 Objective - Vital Signs/Intake and Output Vital Signs (last 24 hours): Temp Pulse Resp BP Pulse Ox 98 F 80 20 139/65 98 03/14/18 04:00 03/14/18 04:00 03/14/18 04:00 03/14/18 04:00 03/14/18 04:00 Intake and Output: 03/14/18 03/14/18 06:59 18:59 Intake Total 1 Balance 1 - Medications Medications: Current Medications Acetaminophen (Tylenol 325mg Tab) 650 mg PO Q6 PRN PRN Reason: Pain, Mild (1-3) Last Admin: 03/13/18 00:05 Dose: 650 mg Alprazolam (Xanax) 0.25 mg PO Q6H PRN PRN Reason: Anxiety Last Admin: 03/13/18 00:05 Dose: 0.25 mg Aspirin (Aspirin Chewable) 81 mg PO DAILY [facility] Last Admin: 03/13/18 09:06 Dose: 81 mg Benzonatate (Tessalon Perles) 100 mg PO TID [facility] Last Admin: 03/13/18 17:58 Dose: 100 mg Budesonide (Pulmicort Respules) 0.5 mg INH RQ12 [facility] Last Admin: 03/13/18 19:33 Dose: 0.5 mg Docusate Sodium (Colace) 100 mg PO BID [facility] Last Admin: 03/13/18 17:58 Dose: 100 mg Epoetin Mario (Procrit) 20,000 unit IV TTS [facility] Last Admin: 03/12/18 12:20 Dose: 20,000 unit Ferric Sodium Gluconate Complex (Ferrlecit) 125 mg IVPB TTS [facility] Stop: 03/15/18 10:01 Last Admin: 03/12/18 12:19 Dose: 125 mg Furosemide (Lasix) 40 mg PO DAILY [facility] Last Admin: 03/13/18 09:06 Dose: 40 mg Heparin Sodium (Porcine) (Heparin) 5,000 units SC Q12 [facility] Last Admin: 03/13/18 09:06 Dose: 5,000 units Cefepime HCl 1 gm/ Dextrose 50 mls @ 100 mls/hr IVPB Q12H [facility] PRN Reason: Protocol Last Admin: 03/13/18 21:46 Dose: 100 mls/hr Insulin Human Regular (Novolin R) 0 unit SC ACHS [facility] PRN Reason: Protocol Last Admin: 03/13/18 21:46 Dose: Not Given Lactulose (Enulose) 20 gm PO DAILY PRN PRN Reason: FOR CONSTIPATION Lidocaine/Prilocaine (Emla) 0 gm TOP TuThSa PRN PRN Reason: FOR PAIN Last Admin: 03/09/18 08:56 Dose: 1 applic Lisinopril (Zestril) 2.5 mg PO DAILY [facility] Last Admin: 03/13/18 09:07 Dose: 2.5 mg Midodrine (Proamatine) 5 mg PO MWF [facility] Last Admin: 03/13/18 09:07 Dose: 5 mg Morphine Sulfate (Morphine) 1 mg IVP Q3H PRN PRN Reason: Pain, moderate (4-7) Last Admin: 03/13/18 21:49 Dose: 1 mg Ondansetron HCl (Zofran Tab) 4 mg PO Q8H PRN PRN Reason: Nausea/Vomiting Last Admin: 03/13/18 17:58 Dose: 4 mg Paricalcitol (Zemplar) 2 mcg IV TTS [facility] Last Admin: 03/09/18 13:20 Dose: 2 mcg Polyethylene Glycol (Miralax) 17 gm PO DAILY [facility] Last Admin: 03/13/18 09:06 Dose: 17 gm Rosuvastatin Calcium (Crestor) 10 mg PO HS [facility] Last Admin: 03/13/18 21:46 Dose: 10 mg Saliva Substitute (First Magic Mouthwash) 10 ml PO QID [facility] Last Admin: 03/13/18 21:46 Dose: 10 ml Sevelamer Carbonate (Renvela) 800 mg PO TIDCC [facility] Last Admin: 03/13/18 17:58 Dose: 800 mg Ticagrelor (Brilinta) 90 mg PO BID [facility] Last Admin: 03/13/18 17:58 Dose: 90 mg Vitamin B Complex/Vit C/Folic Acid (Nephro-Renaldo) 1 tab PO DAILY [facility] Last Admin: 03/13/18 09:05 Dose: 1 tab - Labs Labs: 03/13/18 07:14 08/22/18 07:14 PT 13.5 SECONDS (9.7-12.2) H 03/10/18 03:29 INR 1.2 03/10/18 03:29 APTT 41 SECONDS (21-34) H D 03/12/18 16:45
[2018-03-14] MEDS: Budesonide 0.5 mg/2 ml Inhal Susp UD INH SCH ×2 (07:23→20:17)
[2018-03-14 07:59] LABS: ALB/GLOB RATIO 1.2 (1.0-2.1); ALBUMIN 3.4 g/dL (3.5-5.0); CALCIUM 8.9 mg/dl (8.6-10.4)
[2018-03-14] MEDS ORDERED: Iodixanol 320 MG/ML 100 ML BOTTLE IV ONE (08:27)
[2018-03-14] MEDS ORDERED: Vancomycin 1 gm/NS 200 ml 1 GM/200 ML BAG IVPB ONE (09:00)
[2018-03-14] MEDS: (Novolin R) Insulin Human Regular 100 units/ml vial SC SCH ×4 (09:18→22:42)
[2018-03-14] MEDS: Mag&Al/Simet/Diphen/Lido 237 ML KIT PO SCH ×4 (11:39→21:32)
[2018-03-14] MEDS: POLYETHYLENE GLYCOL 3350 17 GM/Dose PACKET PO SCH (11:43)
[2018-03-14] MEDS: Multivitamin Vitamin B Complex (Nephro-Vite) Tab PO SCH (11:43)
--- NOTE | 2018-03-14 11:45 | PN ---
Copied To: Carlos Andrews DO Attending MD: Carlos Andrews DO DATE: 03/14/2018 SUBJECTIVE: I saw him resting comfortably in bed this morning. He is alert. He is getting ready for his cardiac cath this morning. He is on aspirin, Brilinta, cefepime, Colace, Crestor, EMLA, Enulose, Ferrlecit, Magic mouthwash, hold Lasix, MiraLax, morphine which is helping, Nephro-Renaldo, Novolin, ProAmatine, Procrit, Pulmicort, Renvela, Tessalon, Tylenol, Xanax, Zemplar, Zestril, and Zofran. PHYSICAL EXAMINATION: VITAL SIGNS: He has 98 temperature, 80 pulse, 139/65 blood pressure, 20 respiratory rate, 98% O2 sat on nasal cannula on 4 liters. HEENT: Head is atraumatic and normocephalic. HEART: Regular rate. LUNGS: Decreased breath sounds, but clear. ABDOMEN: Soft, obese, and nontender. EXTREMITIES: No edema. The morphine is helping a lot. LABORATORY DATA: He has a 5.6 white count, 10.6 hemoglobin, 32.8 hematocrit with 105 platelets. He has a 140 sodium, potassium is 4, BUN 50, creatinine 2.9. He is on dialysis. GFR is 22, sugar is 104, calcium 8.8, total bili is 0.6. AST is 23, ALT is 33, alk phos 106, total protein 6.2. ASSESSMENT AND PLAN: There is a note from Dr. Rodas There is a complicated urinary tract infection, on antibiotics with two hemodialysis, hypothermia, respiratory acidosis, anemia improving. I am hoping for cardiac catheterization today, do a possible fistulogram, then back to [facility] where he lives. Continue with aggressive treatment and care. We will check his laboratories tomorrow. Hope he will do very well. Carlos Andrews DO [facility]
--- NOTE | 2018-03-14 12:04 | CON ---
Copied To: Martin Ortiz MD Attending MD: Martin Ortiz MD DATE: 03/13/2018 FOLLOWUP RENAL CONSULTATION LOCATION: The patient is located in room 650, bed A. REQUESTED BY: Carlos Andrews DO REASON FOR FOLLOWUP: End-stage renal disease, continuation of hemodialysis. HISTORY OF PRESENT ILLNESS: The patient is a 67-year-old elderly [place] male with a past medical history significant for longstanding hypertension; diabetes; end-stage renal disease, on hemodialysis three times a week, Sunday, , Sunday; coronary artery disease, status post CABG; CVA with left-sided weakness, status post pacemaker placement for bradycardia; who was sent from the dialysis unit after the patient was found unresponsive and status post CPR. Subsequently, the patient was transferred to [facility] for further evaluation. The patient was also found to have elevated pCO2, and the patient was placed on BiPAP. The patient is not in acute distress. Denies any complaints today. No chest pain. No palpitation. No fever. No cough. The patient is on nasal cannula, resting comfortably. PHYSICAL EXAMINATION: VITAL SIGNS: As follows: Blood pressure 139/55, pulse 80, respiration 20, temperature 98.6. Height 5 feet 6 inches, weight is 208 pounds. GENERAL: The patient is a 67-year-old elderly [place] male, moderately built, moderately nourished, not in acute distress. HEENT: Pupils normal, reactive to light and accommodation. Conjunctivae pink. Sclerae are anicteric. Tongue is moist. Trachea is midline. LUNGS: Symmetric on both sides. Bilateral breath sounds present. Occasional basal crackles present. CVS: [place] at the fifth intercostal space and midclavicular line. S1, S2 audible. No murmur. No gallop. The patient has a midsternal scar present from the previous CABG. ABDOMEN: Slightly protuberant, soft, tympanitic. No guarding. No rigidity. No hepatosplenomegaly. TENTER FRAME BACK TENDER: The patient is alert, awake, oriented x2 to x3. Sensory and motor system is within normal limits. EXTREMITIES: No cyanosis. No clubbing. The patient has a trace edema in both lower extremities, left more than the right. MEDICATIONS: Include aspirin, Brilinta, cefepime, Colace, Crestor, lidocaine patch, lactulose, ferric gluconate, FIRST Magic mouthwash, Lasix, MiraLax, morphine sulfate 1 mg IV every 3 hours p.r.n., Nephro-Renaldo, Novolin R for sliding scale, midodrine three times a week Sunday, Sunday, and Sunday, Epogen, Pulmicort, Renvela, Tessalon Perles, Xanax, Zemplar, lisinopril, and Zofran. LABORATORY DATA: Include as follows: As of 03/13/2018, WBC 5.6, hemoglobin 10.2, hematocrit is 32.8, platelets 105. Sodium 140, potassium 4, chloride 99, CO2 29, BUN 15, creatinine 2.9, glucose 103, calcium 8.8. Total bili 0.6, AST 23, ALT 33, alkaline phos is 106. Total protein 6.2, albumin is 3.4. Accu-Cheks, 121 and 104. ASSESSMENT AND PLAN: In summary, the patient is a 67-year-old elderly obese [place] male with hypertension, diabetes, coronary artery disease, status post coronary artery bypass graft, cerebrovascular accident with left-sided weakness, status post pacemaker placement, was admitted with unresponsiveness and is status post initiation of cardiopulmonary resuscitation in the dialysis with fluid overload. 1. End-stage renal disease. Continue hemodialysis three times a week; Sunday, , Sunday. 2. Hypertension. Blood pressure is stable now. Continue midodrine three times a week half an hour before hemodialysis. 3. Congestive heart failure. 4. Chronic obstructive pulmonary disease and asthma. Continue his current medications. We will schedule for hemodialysis in a.m. Restrict fluids to 1 liter per day. Continue Procrit, Renvela, and Zemplar. Thank you for allowing me to participate in your patient's care. Martin Ortiz MD
[2018-03-14] MEDS: Paricalcitol 2 mcg/ml Inj IV SCH ×2 (14:43→16:07)
[2018-03-14] MEDS: Epoetin Alfa Dialysis 20000 UNIT/ML Inj IV SCH (14:43)
[2018-03-14] MEDS: Ferric Sodium Gluconat Complex 62.5 mg/5 ml Vial IVPB SCH (14:44)
--- NOTE | 2018-03-14 16:23 | CP.PCM.PN ---
Subjective - Date & Time of Evaluation Date of Evaluation: 03/14/18 Time of Evaluation: 11:25 - Subjective Subjective: the patient seen and examined Status post cardiac catheter No shortness of breath Afebrile On BiPAP at night Objective - Vital Signs/Intake and Output Vital Signs (last 24 hours): Temp Pulse Resp BP Pulse Ox 97.5 F L 80 19 133/38 L 98 03/14/18 14:10 03/14/18 15:36 03/14/18 14:10 03/14/18 16:10 03/14/18 14:10 Intake and Output: 03/14/18 03/14/18 06:59 18:59 Intake Total 1 Balance 1 - Medications Medications: Current Medications Acetaminophen (Tylenol 325mg Tab) 650 mg PO Q6 PRN PRN Reason: Pain, Mild (1-3) Last Admin: 03/13/18 00:05 Dose: 650 mg Alprazolam (Xanax) 0.25 mg PO Q6H PRN PRN Reason: Anxiety Last Admin: 03/13/18 00:05 Dose: 0.25 mg Aspirin (Aspirin Chewable) 81 mg PO DAILY [facility] [place] Last Admin: 03/14/18 11:38 Dose: Not Given Benzonatate (Tessalon Perles) 100 mg PO TID [facility] [place] Last Admin: 03/14/18 13:32 Dose: Not Given Budesonide (Pulmicort Respules) 0.5 mg INH RQ12 [facility] [place] Last Admin: 03/14/18 07:23 Dose: Not Given Docusate Sodium (Colace) 100 mg PO BID [facility] [place] Last Admin: 03/14/18 11:39 Dose: Not Given Epoetin Mario (Procrit) 20,000 unit IV TTS [facility] [place] Last Admin: 03/14/18 14:43 Dose: 20,000 unit Ferric Sodium Gluconate Complex (Ferrlecit) 125 mg IVPB TTS [facility] [place] Stop: 03/15/18 10:01 Last Admin: 03/14/18 14:44 Dose: 125 mg Furosemide (Lasix) 40 mg PO DAILY [facility] [place] Last Admin: 03/14/18 11:39 Dose: Not Given Heparin Sodium (Porcine) (Heparin) 5,000 units SC Q12H [facility] [place] Cefepime HCl 1 gm/ Dextrose 50 mls @ 100 mls/hr IVPB Q12H [facility] PRN Reason: Protocol Last Admin: 03/14/18 09:18 Dose: Not Given Insulin Human Regular (Novolin R) 0 unit SC ACHS [facility] PRN Reason: Protocol Last Admin: 03/14/18 12:03 Dose: Not Given Lactulose (Enulose) 20 gm PO DAILY PRN PRN Reason: FOR CONSTIPATION Lidocaine/Prilocaine (Emla) 0 gm TOP TuThSa PRN PRN Reason: FOR PAIN Last Admin: 03/09/18 08:56 Dose: 1 applic Lisinopril (Zestril) 2.5 mg PO DAILY [facility] [place] Last Admin: 03/14/18 11:44 Dose: Not Given Midodrine (Proamatine) 5 mg PO MWF [facility] [place] Last Admin: 03/13/18 09:07 Dose: 5 mg Morphine Sulfate (Morphine) 1 mg IVP Q3H PRN PRN Reason: Pain, moderate (4-7) Last Admin: 03/13/18 21:49 Dose: 1 mg Ondansetron HCl (Zofran Tab) 4 mg PO Q8H PRN PRN Reason: Nausea/Vomiting Last Admin: 03/13/18 17:58 Dose: 4 mg Paricalcitol (Zemplar) 2 mcg IV TTS [facility] [place] Last Admin: 03/14/18 16:07 Dose: 2 mcg Polyethylene Glycol (Miralax) 17 gm PO DAILY [facility] [place] Last Admin: 03/14/18 11:43 Dose: Not Given Rosuvastatin Calcium (Crestor) 10 mg PO HS [facility] [place] Last Admin: 03/13/18 21:46 Dose: 10 mg Saliva Substitute (First Magic Mouthwash) 10 ml PO QID [facility] [place] Last Admin: 03/14/18 13:26 Dose: Not Given Sevelamer Carbonate (Renvela) 800 mg PO TIDCC [facility] [place] Last Admin: 03/14/18 13:32 Dose: Not Given Ticagrelor (Brilinta) 90 mg PO BID [facility] [place] Last Admin: 03/14/18 11:38 Dose: Not Given Vitamin B Complex/Vit C/Folic Acid (Nephro-Renaldo) 1 tab PO DAILY [facility] [place] Last Admin: 03/14/18 11:43 Dose: Not Given - Labs Labs: 03/13/18 07:14 03/14/18 07:25 PT 13.5 SECONDS (9.7-12.2) H 03/10/18 03:29 INR 1.2 03/10/18 03:29 APTT 41 SECONDS (21-34) H D 03/12/18 16:45 - Head Exam Head Exam: ATRAUMATIC, NORMOCEPHALIC - ENT Exam ENT Exam: Mucous Membranes Moist - Neck Exam Neck Exam: Normal Inspection - Respiratory Exam Respiratory Exam: Decreased Breath Sounds - Cardiovascular Exam Cardiovascular Exam: REGULAR RHYTHM - GI/Abdominal Exam GI & Abdominal Exam: Soft Assessment and Plan (1) Hypercapnic respiratory failure Assessment & Plan: continue BiPAP at night Nebulizer treatment Status post cardiac catheter Continue hemodialysis Status: Acute (2) ESRD on hemodialysis Status: Acute (3) COPD (chronic obstructive pulmonary disease) Status: Acute
[2018-03-14 18:30] VITALS: PULSE 80
--- NOTE | 2018-03-14 23:04 | CP.PCM.PN ---
Subjective - Date & Time of Evaluation Date of Evaluation: 03/14/18 Time of Evaluation: 20:45 - Subjective Subjective: follow up consult is dictated #[id number] s/p hd today Objective - Vital Signs/Intake and Output Vital Signs (last 24 hours): Temp Pulse Resp BP Pulse Ox 97.4 F L 80 19 130/31 L 98 03/14/18 17:10 03/14/18 20:38 03/14/18 14:10 03/14/18 17:10 03/14/18 14:10 - Medications Medications: Current Medications Acetaminophen (Tylenol 325mg Tab) 650 mg PO Q6 PRN PRN Reason: Pain, Mild (1-3) Last Admin: 03/14/18 20:09 Dose: 650 mg Alprazolam (Xanax) 0.25 mg PO Q6H PRN PRN Reason: Anxiety Last Admin: 03/13/18 00:05 Dose: 0.25 mg Aspirin (Aspirin Chewable) 81 mg PO DAILY [facility] Last Admin: 03/14/18 11:38 Dose: Not Given Benzonatate (Tessalon Perles) 100 mg PO TID [facility] Last Admin: 03/14/18 19:12 Dose: 100 mg Budesonide (Pulmicort Respules) 0.5 mg INH RQ12 [facility] Last Admin: 03/14/18 20:17 Dose: 0.5 mg Docusate Sodium (Colace) 100 mg PO BID [facility] Last Admin: 03/14/18 19:13 Dose: 100 mg Epoetin Mario (Procrit) 20,000 unit IV TTS [facility] Last Admin: 03/14/18 14:43 Dose: 20,000 unit Ferric Sodium Gluconate Complex (Ferrlecit) 125 mg IVPB TTS [facility] Stop: 03/15/18 10:01 Last Admin: 03/14/18 14:44 Dose: 125 mg Furosemide (Lasix) 40 mg PO DAILY [facility] Last Admin: 03/14/18 11:39 Dose: Not Given Heparin Sodium (Porcine) (Heparin) 5,000 units SC Q12H [facility] Last Admin: 03/14/18 20:09 Dose: 5,000 units Cefepime HCl 1 gm/ Dextrose 50 mls @ 100 mls/hr IVPB Q12H [facility] PRN Reason: Protocol Last Admin: 03/14/18 21:24 Dose: 100 mls/hr Insulin Human Regular (Novolin R) 0 unit SC ACHS [facility] PRN Reason: Protocol Last Admin: 03/14/18 22:42 Dose: Not Given Lactulose (Enulose) 20 gm PO DAILY PRN PRN Reason: FOR CONSTIPATION Lidocaine/Prilocaine (Emla) 0 gm TOP TuThSa PRN PRN Reason: FOR PAIN Last Admin: 03/09/18 08:56 Dose: 1 applic Lisinopril (Zestril) 2.5 mg PO DAILY [facility] Last Admin: 03/14/18 11:44 Dose: Not Given Midodrine (Proamatine) 5 mg PO MWF [facility] Last Admin: 03/13/18 09:07 Dose: 5 mg Morphine Sulfate (Morphine) 1 mg IVP Q3H PRN PRN Reason: Pain, moderate (4-7) Last Admin: 03/13/18 21:49 Dose: 1 mg Ondansetron HCl (Zofran Tab) 4 mg PO Q8H PRN PRN Reason: Nausea/Vomiting Last Admin: 03/13/18 17:58 Dose: 4 mg Paricalcitol (Zemplar) 2 mcg IV TTS [facility] Last Admin: 03/14/18 16:07 Dose: 2 mcg Polyethylene Glycol (Miralax) 17 gm PO DAILY [facility] Last Admin: 03/14/18 11:43 Dose: Not Given Prednisone (Prednisone Tab) 50 mg PO DAILY [facility] Rosuvastatin Calcium (Crestor) 10 mg PO HS [facility] Last Admin: 03/14/18 21:24 Dose: 10 mg Saliva Substitute (First Magic Mouthwash) 10 ml PO QID [facility] Last Admin: 03/14/18 21:32 Dose: Not Given Sevelamer Carbonate (Renvela) 800 mg PO TIDCC [facility] Last Admin: 03/14/18 19:12 Dose: 800 mg Ticagrelor (Brilinta) 90 mg PO BID [facility] Last Admin: 03/14/18 19:12 Dose: 90 mg Vitamin B Complex/Vit C/Folic Acid (Nephro-Renaldo) 1 tab PO DAILY [facility] Last Admin: 03/14/18 11:43 Dose: Not Given - Labs Labs: 03/13/18 07:14 03/14/18 07:25 PT 13.5 SECONDS (9.7-12.2) H 03/10/18 03:29 INR 1.2 03/10/18 03:29 APTT 41 SECONDS (21-34) H D 03/12/18 16:45
--- NOTE | 2018-03-15 04:09 | PN ---
Copied To: Martin Ortiz MD Attending MD: Martin Ortiz MD DATE: 03/14/2018 FOLLOWUP RENAL CONSULTATION LOCATION: The patient is located in room 650, bed A. REQUESTED BY: Carlos Andrews DO REASON FOR FOLLOWUP: End-stage renal disease, for continuation of hemodialysis. HISTORY OF PRESENT ILLNESS: Mr. Gonzales is a 67-year-old elderly, obese, Malagasy male with a past medical history significant for longstanding hypertension, diabetes, hyperlipidemia, coronary artery disease, status post CABG, CVA with left-sided weakness, status post pacemaker placement, COPD, asthma who was admitted after the patient was unresponsive in the dialysis unit, status post initial CPR, and subsequently, transferred to transferred to [facility] ER, the patient was admitted. The patient is not in acute distress. No chest pain or palpitation. No fever. No cough. No abdominal pain. No nausea, vomiting, diarrhea. The patient is noncompliant with diet and fluid intake. PHYSICAL EXAMINATION: VITAL SIGNS: As follows: Blood pressure 130/31, pulse 81, respirations about 19, and temperature 97.4. Height 5 feet 6 inches, weight is 208 pounds. GENERAL: Mr. Gonzales is a 67-year-old male moderately built, moderately nourished, not in distress. HEENT: Pupils normal and reactive to light and accommodation. Conjunctivae pink. Sclerae anicteric. Tongue is moist. Trachea is midline. LUNGS: Symmetric on both sides. Bilateral breath sounds present. Clear to auscultation. CVS: [place] at the fifth intercostal space, half inch medial to midclavicular line. S1, S2 audible. No murmur or gallop. The patient has a midsternal scar present from the previous CABG. ABDOMEN: Normal in appearance, soft, tympanitic. No guarding. No rigidity. No hepatosplenomegaly. 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 Nonfocal neuro examination. Cranial nerves II through XII grossly intact. Sensory and motor system is within normal limits. EXTREMITIES: No cyanosis, no clubbing. The patient has a trace to 1+ edema in both lower extremities. Motor system, the patient has a left-sided weakness. Power 1/5 to 2/5. MEDICATIONS: His current medications include as follows: Aspirin 81 mg daily; Brilinta 90 mg p.o. b.i.d.; cefepime 1 g every 12 hours; Colace 100 mg p.o. b.i.d.; Crestor 10 mg at bedtime; lactulose 20 g p.o. daily; Ferrlecit 125 mg three times a week; Lasix 40 mg p.o. daily; MiraLax; morphine 1 mg IV every 3 hours p.r.n.; Nephro-Renaldo 1 tablet daily; prednisone 50 mg p.o. daily; midodrine 5 mg p.o. three times a week, Sunday, Sunday, and Sunday; Pulmicort; Renvela; Tessalon Perles; Xanax; Zemplar; lisinopril; and Zofran. LABORATORY DATA: Include as follows: As of 03/14/2018, sodium 140, potassium 4.3, chloride 100, CO2 of 30, BUN 20, creatinine 3.8, glucose 92, calcium 8.9. Total bili 0.5, AST 30, ALT 32, alkaline phosphatase 101, total protein 6.4, albumin is 3.4. IMPRESSION: In summary, Mr. Gonzales is a 67-year-old elderly obese Malagasy male with hypertension, diabetes, hyperlipidemia, coronary artery disease, status post coronary artery bypass graft, cerebrovascular accident with left-sided weakness, status post pacemaker placement, chronic obstructive pulmonary disease, asthma who was admitted with altered mental status and status post CPR and status post chest pain during fistulogram early this week. 1. End-stage renal disease. Continue hemodialysis three times a week; Sunday, , Sunday. 2. Hypertension. Blood pressure is stable. Continue midodrine during dialysis. 3. Chronic obstructive pulmonary disease. 4. Congestive heart failure, secondary to fluid overload, secondary to noncompliance with diet and fluids. We will continue hemodialysis three times a week; Sunday, , Sunday. The patient will need reevaluation of the AV graft for stenosis. Martin Ortiz MD
[2018-03-15 07:13] LABS: HEMOGLOBIN 10.4 g/dL (12.0-18.0); MEAN CELL VOLUME 104.7 fL (80.0-94.0); MEAN CORPUSCULAR HEMOGLOBIN 32.8 pg (27.0-31.0); MEAN CORPUSCULAR HGB CONC 31.4 g/dL (33.0-37.0); MEAN PLATELET VOLUME 9.1 fL (7.2-11.7); RBC 3.16 Mil/uL (4.40-5.90); WHITE BLOOD COUNT 5.3 K/uL (4.8-10.8)
[2018-03-15 07:34] LABS: ALB/GLOB RATIO 1.2 (1.0-2.1); ALBUMIN 3.4 g/dL (3.5-5.0); CALCIUM 8.7 mg/dl (8.6-10.4)
[2018-03-15] MEDS: (Novolin R) Insulin Human Regular 100 units/ml vial SC SCH ×3 (07:48→17:39)
[2018-03-15] MEDS: Budesonide 0.5 mg/2 ml Inhal Susp UD INH SCH ×2 (08:25→19:24)
[2018-03-15] MEDS: POLYETHYLENE GLYCOL 3350 17 GM/Dose PACKET PO SCH (10:10)
[2018-03-15] MEDS: Multivitamin Vitamin B Complex (Nephro-Vite) Tab PO SCH (10:10)
[2018-03-15] MEDS: Mag&Al/Simet/Diphen/Lido 237 ML KIT PO SCH ×3 (10:12→17:45)
[2018-03-15] MEDS ORDERED: DiphenhydrAMINE 50 mg/ml Inj IVP ONE ×2 (11:00→13:00)
--- NOTE | 2018-03-15 13:31 | CP.PCM.PN ---
Subjective - Date & Time of Evaluation Date of Evaluation: 03/15/18 Time of Evaluation: 09:00 - Subjective Subjective: patient seen and examined Appeared depressed No shortness of breath BiPAP at night Hemodialysis Status post Cardaic cath Continue present treatment Objective - Vital Signs/Intake and Output Vital Signs (last 24 hours): Temp Pulse Resp BP Pulse Ox 98.0 F 80 18 142/54 L 99 03/15/18 07:00 03/15/18 07:44 03/15/18 07:00 03/15/18 10:14 03/15/18 07:00 Intake and Output: 03/15/18 03/15/18 06:59 18:59 Intake Total 0 Balance 0 - Medications Medications: Current Medications Acetaminophen (Tylenol 325mg Tab) 650 mg PO Q6 PRN PRN Reason: Pain, Mild (1-3) Last Admin: 03/14/18 20:09 Dose: 650 mg Alprazolam (Xanax) 0.25 mg PO Q6H PRN PRN Reason: Anxiety Last Admin: 03/13/18 00:05 Dose: 0.25 mg Aspirin (Aspirin Chewable) 81 mg PO DAILY [facility] Last Admin: 03/15/18 10:10 Dose: 81 mg Benzonatate (Tessalon Perles) 100 mg PO TID [facility] Last Admin: 03/15/18 10:10 Dose: 100 mg Budesonide (Pulmicort Respules) 0.5 mg INH RQ12 [facility] Last Admin: 03/15/18 08:25 Dose: 0.5 mg Docusate Sodium (Colace) 100 mg PO BID [facility] Last Admin: 03/15/18 10:10 Dose: 100 mg Epoetin Mario (Procrit) 20,000 unit IV TTS [facility] Last Admin: 03/14/18 14:43 Dose: 20,000 unit Furosemide (Lasix) 40 mg PO DAILY [facility] Last Admin: 03/15/18 10:14 Dose: 40 mg Heparin Sodium (Porcine) (Heparin) 5,000 units SC Q12H [facility] Last Admin: 03/14/18 20:09 Dose: 5,000 units Cefepime HCl 1 gm/ Dextrose 50 mls @ 100 mls/hr IVPB Q12H [facility] PRN Reason: Protocol Last Admin: 03/15/18 10:10 Dose: 100 mls/hr Insulin Human Regular (Novolin R) 0 unit SC ACHS [facility] PRN Reason: Protocol Last Admin: 03/15/18 11:46 Dose: Not Given Lactulose (Enulose) 20 gm PO DAILY PRN PRN Reason: FOR CONSTIPATION Lidocaine/Prilocaine (Emla) 0 gm TOP TuThSa PRN PRN Reason: FOR PAIN Last Admin: 03/09/18 08:56 Dose: 1 applic Lisinopril (Zestril) 2.5 mg PO DAILY [facility] Last Admin: 03/15/18 10:10 Dose: 2.5 mg Midodrine (Proamatine) 5 mg PO MWF [facility] Last Admin: 03/15/18 10:14 Dose: 5 mg Morphine Sulfate (Morphine) 1 mg IVP Q3H PRN PRN Reason: Pain, moderate (4-7) Last Admin: 03/13/18 21:49 Dose: 1 mg Ondansetron HCl (Zofran Tab) 4 mg PO Q8H PRN PRN Reason: Nausea/Vomiting Last Admin: 03/13/18 17:58 Dose: 4 mg Paricalcitol (Zemplar) 2 mcg IV TTS [facility] Last Admin: 03/14/18 16:07 Dose: 2 mcg Polyethylene Glycol (Miralax) 17 gm PO DAILY [facility] Last Admin: 03/15/18 10:10 Dose: Not Given Prednisone (Prednisone Tab) 50 mg PO DAILY [facility] Last Admin: 03/15/18 10:10 Dose: 50 mg Rosuvastatin Calcium (Crestor) 10 mg PO HS [facility] Last Admin: 03/14/18 21:24 Dose: 10 mg Saliva Substitute (First Magic Mouthwash) 10 ml PO QID [facility] Last Admin: 03/15/18 10:12 Dose: 10 ml Sevelamer Carbonate (Renvela) 800 mg PO TIDCC [facility] Last Admin: 03/15/18 11:46 Dose: Not Given Ticagrelor (Brilinta) 90 mg PO BID [facility] Last Admin: 03/15/18 10:10 Dose: 90 mg Vitamin B Complex/Vit C/Folic Acid (Nephro-Renaldo) 1 tab PO DAILY [facility] Last Admin: 03/15/18 10:10 Dose: 1 tab - Labs Labs: 03/15/18 06:54 03/15/18 06:54 PT 13.5 SECONDS (9.7-12.2) H 03/10/18 03:29 INR 1.2 03/10/18 03:29 APTT 41 SECONDS (21-34) H D 03/12/18 16:45 Assessment and Plan (1) Hypercapnic respiratory failure Status: Acute (2) ESRD on hemodialysis Status: Acute (3) COPD (chronic obstructive pulmonary disease) Status: Acute
[2018-03-15] MEDS ORDERED: Midazolam 2 MG/2 ML VIAL ONE (15:34)
[2018-03-15] MEDS ORDERED: Lidocaine 2% MPF (5 ml) Inj ONE ×2 (15:50→15:54)
[2018-03-15] MEDS ORDERED: Iodixanol 320 MG/ML 100 ML BOTTLE IV ONE (15:54)
--- NOTE | 2018-03-15 16:10 | PCM.SURG1 ---
Surgeon's Initial Post Op Note - Surgeon's Notes Surgeon: paty Occupational Medicine Officer: 0 Type of Anesthesia: IV Sedation Anesthesia Administered By: devi Pre-Operative Diagnosis: malfunctioning shunt left arm Operative Findings: no stenosis Post-Operative Diagnosis: STACY patent shunt Operation Performed: shuntogram left arm Specimen/Specimens Removed: 0 Estimated Blood Loss: EBL {In ML}: 5 Blood Products Given: N/A Drains Used: No Drains Post-Op Condition: Good Date of Surgery/Procedure: 03/15/18 Time of Surgery/Procedure: 16:10
[2018-03-15 17:03] VITALS: BP 164/45; RESP 20; O2SAT 100
[2018-03-15 18:50] VITALS: TEMP 97.3
--- NOTE | 2018-03-15 19:23 | CP.PCM.PN ---
Subjective - Date & Time of Evaluation Date of Evaluation: 03/15/18 Time of Evaluation: 19:22 - Subjective Subjective: pt is seen and examined, follow up consult is dictated #[id number] s/p hd on 03/14/18, had a uf about 2.5 lit s/p shuntogram , no stenosis Objective - Vital Signs/Intake and Output Vital Signs (last 24 hours): Temp Pulse Resp BP Pulse Ox 97.3 F L 80 20 164/45 H 100 03/15/18 18:50 03/15/18 17:17 03/15/18 17:02 03/15/18 17:02 03/15/18 17:02 - Medications Medications: Current Medications Acetaminophen (Tylenol 325mg Tab) 650 mg PO Q6 PRN PRN Reason: Pain, Mild (1-3) Last Admin: 03/14/18 20:09 Dose: 650 mg Alprazolam (Xanax) 0.25 mg PO Q6H PRN PRN Reason: Anxiety Last Admin: 03/13/18 00:05 Dose: 0.25 mg Aspirin (Aspirin Chewable) 81 mg PO DAILY [facility] Last Admin: 03/15/18 10:10 Dose: 81 mg Benzonatate (Tessalon Perles) 100 mg PO TID [facility] Last Admin: 03/15/18 17:44 Dose: 100 mg Budesonide (Pulmicort Respules) 0.5 mg INH RQ12 [facility] Last Admin: 03/15/18 08:25 Dose: 0.5 mg Docusate Sodium (Colace) 100 mg PO BID [facility] Last Admin: 03/15/18 18:23 Dose: 100 mg Epoetin Mario (Procrit) 20,000 unit IV TTS [facility] Last Admin: 03/14/18 14:43 Dose: 20,000 unit Furosemide (Lasix) 40 mg PO DAILY [facility] Last Admin: 03/15/18 10:14 Dose: 40 mg Heparin Sodium (Porcine) (Heparin) 5,000 units SC Q12H [facility] Last Admin: 03/14/18 20:09 Dose: 5,000 units Cefepime HCl 1 gm/ Dextrose 50 mls @ 100 mls/hr IVPB Q12H [facility] PRN Reason: Protocol Last Admin: 03/15/18 10:10 Dose: 100 mls/hr Insulin Human Regular (Novolin R) 0 unit SC ACHS [facility] PRN Reason: Protocol Last Admin: 03/15/18 17:39 Dose: Not Given Lactulose (Enulose) 20 gm PO DAILY PRN PRN Reason: FOR CONSTIPATION Lidocaine/Prilocaine (Emla) 0 gm TOP TuThSa PRN PRN Reason: FOR PAIN Last Admin: 03/09/18 08:56 Dose: 1 applic Lisinopril (Zestril) 2.5 mg PO DAILY [facility] Last Admin: 03/15/18 10:10 Dose: 2.5 mg Midodrine (Proamatine) 5 mg PO MWF [facility] Last Admin: 03/15/18 10:14 Dose: 5 mg Morphine Sulfate (Morphine) 1 mg IVP Q3H PRN PRN Reason: Pain, moderate (4-7) Last Admin: 03/13/18 21:49 Dose: 1 mg Ondansetron HCl (Zofran Tab) 4 mg PO Q8H PRN PRN Reason: Nausea/Vomiting Last Admin: 03/13/18 17:58 Dose: 4 mg Paricalcitol (Zemplar) 2 mcg IV TTS [facility] Last Admin: 03/14/18 16:07 Dose: 2 mcg Polyethylene Glycol (Miralax) 17 gm PO DAILY [facility] Last Admin: 03/15/18 10:10 Dose: Not Given Prednisone (Prednisone Tab) 50 mg PO DAILY [facility] Last Admin: 03/15/18 10:10 Dose: 50 mg Rosuvastatin Calcium (Crestor) 10 mg PO HS [facility] Last Admin: 03/14/18 21:24 Dose: 10 mg Saliva Substitute (First Magic Mouthwash) 10 ml PO QID [facility] Last Admin: 03/15/18 17:45 Dose: 10 ml Sevelamer Carbonate (Renvela) 800 mg PO TIDCC [facility] Last Admin: 03/15/18 17:43 Dose: 800 mg Ticagrelor (Brilinta) 90 mg PO BID [facility] Last Admin: 03/15/18 17:43 Dose: 90 mg Vitamin B Complex/Vit C/Folic Acid (Nephro-Renaldo) 1 tab PO DAILY [facility] Last Admin: 03/15/18 10:10 Dose: 1 tab - Labs Labs: 03/15/18 06:54 03/15/18 06:54 PT 13.5 SECONDS (9.7-12.2) H 03/10/18 03:29 INR 1.2 08/19/18 03:29 APTT 41 SECONDS (21-34) H D 03/12/18 16:45
--- NOTE | 2018-03-16 02:25 | PN ---
Copied To: Martin Ortiz MD Attending MD: Martin Ortiz MD DATE: 03/15/2018 FOLLOWUP RENAL CONSULTATION LOCATION: The patient is located in room 650, bed A. REQUESTED BY: Carlos Andrews DO REASON FOR FOLLOWUP: End-stage renal disease, continuation of hemodialysis. SUBJECTIVE: Mr. Gonzlaes is a 67-year-old elderly obese [place] male with a past medical history significant for longstanding hypertension, diabetes, coronary artery disease, status post CABG, and CVA with left-sided weakness, mostly bedridden, CHF, COPD, asthma, and status post pacemaker placement for bradycardia who was sent from the dialysis unit with unresponsiveness and initiated CPR and subsequently transferred to the [facility] ER and admitted to the floor. The patient underwent hemodialysis yesterday without any difficulty, had ultrafiltration about 2.5 liters. Also, the patient underwent a shuntogram today by Dr. Medina and no evidence of stenosis. The patient is not in acute distress. No chest pain. No palpitation. No fever. No cough. No abdominal pain. No nausea, vomiting, or diarrhea. PHYSICAL EXAMINATION: VITAL SIGNS: As follows: Blood pressure 164/45, pulse 80, respirations 20, temperature 97.3, and saturation 100% on two liters nasal cannula. Height 5 feet 6 inches. Weight is 208 pounds. GENERAL: Mr. Gonzales is a 67-year-old elderly [place] male, moderately built and moderately nourished, not in acute distress. HEENT: Pupils are normal and reactive to light and accommodation. Conjunctivae pink. Sclerae anicteric. Tongue is moist and trachea is midline. LUNGS: Symmetric on both sides. Bilateral breath sounds present. Clear to auscultation. CARDIOVASCULAR SYSTEM: [place] at the fifth intercostal space, midclavicular line. S1, S2 audible. No murmur or gallop. The patient has a midsternal scar present from the previous CABG. ABDOMEN: Normal in appearance. Soft, tympanitic. No guarding. No rigidity. No hepatosplenomegaly. CENTRAL NERVOUS SYSTEM: The patient is alert, awake, oriented x3. Nonfocal neuro examination. Cranial nerves II-XII grossly intact. Sensory and motor system is within normal limits. EXTREMITIES: No cyanosis, no clubbing, and no edema. The patient has left-sided weakness from the previous CVA. Power 1 to 2 in the left upper and lower extremities. CURRENT MEDICATIONS: Include as follows: Aspirin 81 mg daily, Brilinta 90 mg p.o. b.i.d., cefepime 1 g every 12 hours, Colace, Crestor, EMLA cream, lactulose, subcu heparin, Lasix, MiraLax, morphine 1 mg IV every 3 hours, Novolin R per sliding scale, prednisone 50 mg p.o. daily, midodrine 5 mg p.o. three times a week on Sunday, Sunday and Sunday, Epogen 20,000 units IV three times a week, Renvela, Tessalon Perles, Tylenol, Xanax, Zemplar, Zestril, and Zofran. CURRENT LABORATORY DATA: Include as follows as of 03/15/2018: WBC 5.3, hemoglobin 10.4, hematocrit is 33 and platelets 104. Sodium 139, potassium 4.1, chloride 98, CO2 of 29, BUN 16, creatinine 2.9, glucose 114, calcium 8.7. Total bili 0.6, AST 21, ALT 31, alkaline phosphatase 106, total protein 6.2, albumin is 3.4. ASSESSMENT AND PLAN: In summary, Mr. Gonzales is a 67-year-old elderly [place] male with hypertension, diabetes, coronary artery disease, status post coronary artery bypass grafting, cerebrovascular accident with left-sided weakness, chronic obstructive pulmonary disease, asthma, status post pacemaker placement, status post altered mental status and cardiopulmonary resuscitation who was admitted through the emergency room status post shuntogram today. 1. End-stage renal disease. Continue hemodialysis three times a week, Sunday, , Sunday. The patient underwent hemodialysis yesterday, had ultrafiltration about liters. The patient goes to longterm tonight. We will schedule for hemodialysis in outpatient, hemodialysis tomorrow morning. Otherwise, we will schedule for dialysis in [facility]. 2. Hypertension. Blood pressure is stable now. Continue his current medications, Zestril and also midodrine during dialysis half an hour before hemodialysis. 3. Congestive heart failure. 4. Chronic obstructive pulmonary disease. 5. Anemia. Hemoglobin and hematocrit stable. Continue Procrit and Nephro-Renaldo. Discussed with the patient's niece at bedside. Thank you for allowing me to participate in your patient's care. Advised the patient to watch fluid intake and restrict fluids to one liter per day. Martin Ortiz MD
--- NOTE | 2018-03-16 07:14 | VAS ---
Copied To: Ramesh Medina Jr., MD Attending MD: Ramesh Medina Jr., MD DATE: 03/15/2018 PREOPERATIVE DIAGNOSES: Malfunctioning shunt, left arm, suspected cirrhosis. PROCEDURE CARRIED OUT: Shuntogram, left arm. SURGEON: Ramesh Medina Jr., MD ASSISTANTS: None. ANESTHESIOLOGIST: Mr. Berger. ANESTHESIA: Local with sedation. INDICATIONS: The patient is an older middle-aged man with multiple medical problems, shunt left arm, problems are reported by the nurse. OPERATIVE FINDINGS: 1. There are multiple placed stents throughout the shunt as well as through his central veins on the left side. All these were widely patent. Detailed pictures were taken from the level of the innominate vein, right atrium junction out through the atrial anastomosis without showing any significant stenosis. Subsequent to the performance of the procedure, pressures were applied. The procedure was terminated. DESCRIPTION OF PROCEDURE: The patient was given local anesthesia. Micropuncture was used for puncture, and a sheath dilator was then passed over this. The pictures were taken as mentioned above with the above-mentioned findings. THE PATIENT HAD A REMOTE HISTORY OF DYE ALLERGY and had been given standard prophylaxis. The patient has no significant findings. Ramesh Medina Jr., MD
--- NOTE | 2018-03-16 22:02 | CARD ---
APPROVED REPORT Date of service: 03/07/2018 EKG Measurement Heart [id number] <Conclusion> Ventricular-paced rhythm Abnormal ECG
--- NOTE | 2018-03-17 21:22 | CARDCATH ---
Copied To: Nando Quispe MD Attending MD: Nando Quispe MD PROCEDURE DATE: 03/14/2018 PROCEDURES: 1. Left heart catheterization. 2. Coronary angiogram. 3. Saphenous vein graft angiogram. 4. Left internal mammary artery graft angiogram. CLINICAL INDICATIONS: 1. Chest pain. 2. Dyspnea. 3. Non ST elevation myocardial infarction. 4. Hypertension. 5. Coronary artery disease, status post CABG. 6. Hyperlipidemia. 7. Diabetes. 8. Chronic renal failure, on hemodialysis. REFERRING PHYSICIANS: 1. Carlso Andrews DO. 2. Jaya Lucas MD. PERFORMING PHYSICIAN: Nando Quispe MD. PROCEDURE: After informed consent, the patient was prepped and draped in the usual sterile fashion. 2% lidocaine was given in the right groin for local anesthesia. Using micropuncture technique, a 6-Nauruan sheath was introduced into the right common femoral artery. A JL4 6-Nauruan diagnostic catheter engaged into left main coronary artery. Contrast injected and left coronary angiogram was done. Then, JR4 6-Nauruan diagnostic catheter crossed into the left ventricle across the aortic valve. LVEDP is measured. Contrast injected and LV angiogram was done. Then, the catheter was pulled back across the aortic valve. The gradient across the aortic valve measured. Then, the catheter was engaged into right coronary artery. Contrast injected and right coronary angiogram was done. Then, the catheter was pulled back and engaged into saphenous vein graft. Contrast injected and saphenous vein graft angiogram was done. A 6-Nauruan IM catheter engaged into POP graft. Contrast injected and POP graft angiogram was done. Patient tolerated the procedure well. Post procedure, Mynx closure device deployed in the right groin with excellent hemostasis. Radiological supervision and radiological interpretations of the coronary imaging was done. FINDINGS: 1. Distal left main coronary artery has 99% calcific stenosis. 2. Ostial LAD has 99% calcific stenosis. Mid LAD Is totally occluded. 3. Left circumflex is totally occluded. 4. Right coronary artery is dominant and patent. Prior stents in the right coronary artery are patent. 5. Saphenous vein graft to left circumflex is patent. 6. POP graft to LAD is patent. 7. LV ejection fraction is approximately 60%. No wall motion abnormalities noted. EDP is 25. No gradient across the aortic valve noted. IMPRESSION: Severe coronary artery disease as described above; however, the grafts to circumflex and LAD are patent and [place] artery is patent. RECOMMENDATIONS: Recommend medical management for secondary prevention of coronary artery disease. Nando Quispe MD
--- NOTE | 2018-03-18 06:53 | PN ---
Copied To: Carlos Andrews DO Attending MD: Carlos Andrews DO DATE: 03/15/2018 SUBJECTIVE: He had his cardiac catheter, now hoping that he can do a fistulogram. The nurse tells me will be scheduled for this afternoon. Dr. Medina hopes that so. I do not see an n.p.o sign above his bed, but the nurse tells me that he was not supposed to eat or drink. He is on aspirin, Brilinta, Cefepime, Colace, Crestor, EMLA, Enulose, Ferrlecit, Magic mouthwash, heparin, Lasix, MiraLax, morphine, Nephro-Renaldo, Novolin, prednisone, ProAmatine, Procrit, Pulmicort, Renvela, Tessalon Perles, Tylenol, Xanax, Zemplar, Zestril, and Zofran. PHYSICAL EXAMINATION: GENERAL: He is very upset about the length of the time he has been here and how he is waiting for this fistulogram to happen. VITAL SIGNS: He has a 97.8 temp, 80 pulse, 108/65 blood pressure, 20 respiratory rate, 96% O2 saturation on 2 L nasal cannula. HEENT: Head is atraumatic and normocephalic. HEART: Regular rate. LUNGS: Decreased breath sounds, but clear. ABDOMEN: Soft, obese. EXTREMITIES: No edema. LABORATORY DATA: He has a 5.6 white count, 10.2 hemoglobin, 32.8 hematocrit with a 105 platelets. Sodium 140, potassium 4.3, BUN 20, creatinine 3.8. He is on dialysis. Sugar is 142, calcium is 8.9, total bilirubin is 0.5. AST is 30. ALT is 32. Alkaline phosphatase is 101. Total protein 6.4. He is being seen by Renal, Pulmonary, Infectious Disease. There is a operations vice president note, first one in a few days when the cath is complete, and they said, they will do it once the cath is complete. Hopefully, will do the fistulogram today. Continue with aggressive treatment and care, then back to [facility] where there once this is okay, and we discharge. Conor Gonzales has been here for chest pain, UTI, respiratory failure, respiratory disease, and fistulogram evaluation. Carlos Andrews DO Naldo # [id number] HUNTER
== END 2018-03-15 21:20 | DRG 280 ==
LOC: C.ER 15:34 → C.9E 20:37 → C.6T 21:53 → C.9S 03-08 12:33 → C.9I 03-08 13:37 → C.6T 03-09 20:26
PROVIDERS: ADMIT Family Medicine; ATTEND Family Medicine
PROC: 5A09557 Assistance with Respiratory Ventilation, Greater than 96 Consecutive Hours, Continuous Positive Airway Pressure (ICD-10-PCS; principal; 2018-03-05)
PROC: 5A1D70Z Performance of Urinary Filtration, Intermittent, Less than 6 Hours Per Day (ICD-10-PCS; 2018-03-09)
PROC: 5A1D70Z Performance of Urinary Filtration, Intermittent, Less than 6 Hours Per Day (ICD-10-PCS; 2018-03-11)
PROC: 4A023N7 Measurement of Cardiac Sampling and Pressure, Left Heart, Percutaneous Approach (ICD-10-PCS; 2018-03-12)
PROC: B2151ZZ Fluoroscopy of Left Heart using Low Osmolar Contrast (ICD-10-PCS; 2018-03-12)
PROC: B2181ZZ Fluoroscopy of Left Internal Mammary Bypass Graft using Low Osmolar Contrast (ICD-10-PCS; 2018-03-12)
PROC: B2111ZZ Fluoroscopy of Multiple Coronary Arteries using Low Osmolar Contrast (ICD-10-PCS; 2018-03-12)
PROC: 5A1D70Z Performance of Urinary Filtration, Intermittent, Less than 6 Hours Per Day (ICD-10-PCS; 2018-03-12)
PROC: 5A1D70Z Performance of Urinary Filtration, Intermittent, Less than 6 Hours Per Day (ICD-10-PCS; 2018-03-14)
DX: T82.838A Hemorrhage due to vascular prosthetic devices, implants and grafts, initial encounter (principal); G93.41 Metabolic encephalopathy; I21.4 Non-ST elevation (NSTEMI) myocardial infarction; J96.02 Acute respiratory failure with hypercapnia; N18.6 End stage renal disease; I13.2 Hypertensive heart and chronic kidney disease with heart failure and with stage 5 chronic kidney disease, or end stage renal disease; E87.2 Acidosis; I69.354 Hemiplegia and hemiparesis following cerebral infarction affecting left non-dominant side; I47.2 Ventricular tachycardia; J44.1 Chronic obstructive pulmonary disease with (acute) exacerbation; L97.429 Non-pressure chronic ulcer of left heel and midfoot with unspecified severity; J98.11 Atelectasis; R47.01 Aphasia; E78.5 Hyperlipidemia, unspecified; E87.5 Hyperkalemia; E11.51 Type 2 diabetes mellitus with diabetic peripheral angiopathy without gangrene; E11.22 Type 2 diabetes mellitus with diabetic chronic kidney disease; D63.1 Anemia in chronic kidney disease; F32.9 Major depressive disorder, single episode, unspecified; G47.33 Obstructive sleep apnea (adult) (pediatric); I25.10 Atherosclerotic heart disease of native coronary artery without angina pectoris; I50.9 Heart failure, unspecified; R29.810 Facial weakness; Z91.19 Patient's noncompliance with other medical treatment and regimen; Z95.1 Presence of aortocoronary bypass graft; Z99.2 Dependence on renal dialysis; Z53.09 Procedure and treatment not carried out because of other contraindication; E11.621 Type 2 diabetes mellitus with foot ulcer; E66.9 Obesity, unspecified

== ENCOUNTER 2018-03-19 12:59 | Inpatient (IN) | payer MEDICARE, MEDICAID ==
[2018-03-19 12:59] VITALS: BMI 37.2
[2018-03-19] MEDS ORDERED: Sodium Chloride 0.9% 1,000 ML IV SCH (13:30)
--- NOTE | 2018-03-19 13:37 | C.PDOC ---
History Of Present Illness 67 y/o male with PMHx of extensive CAD, DM, ESRD (on hemodialysis), CVA, and s/ p pacemaker, comes in with altered mental status. Patient was found altered this [facility] at [facility]. He was sent to dialysis, where the dialysis nurses also thought he seemed altered. On arrival, patient is nonverbal and only command followed is raising the left arm. Chart review shows prior L sided upper extremitiy and b/l lower extremity deficit from prior CVA. Unable to get further information. Last known well was last night (03/18/18 evening). Code Stroke called on arrival. PMD: Dr. Carlos Andrews Time Seen by Provider: 03/19/18 13:07 Chief Complaint (Nursing): Altered Mental Status History Per: Patient History/Exam Limitations: Clinical Condition (Nonverbal) Onset/Duration Of Symptoms: Unknown Onset Of Symptoms: Other (Last known well 03/18 evening) Current Symptoms Are (Timing): Still Present Additional History Per: [facility] Past Medical History Reviewed: Historical Data, Nursing Documentation, Vital Signs Vital Signs: Last Vital Signs Temp 95.8 F L 03/19/18 13:22 Pulse 80 03/19/18 14:59 Resp 14 03/19/18 14:59 BP 111/28 L 03/19/18 14:59 Pulse Ox 98 03/19/18 15:13 - Medical History PMH: Anemia, Asthma, CHF, COPD, CVA (affecting left side), Depression ('MAJOR DEPRESSIVE DISORDER,SINGLE EPISODE,UNSPECIFIED"), HTN, Hypercholesterolemia, Hyperlipidemia, Peripheral Edema, End Stage Renal Disease (on hemodialysis), Chronic Kidney Disease, Sleep Apnea Surgical History: CABG, Endoscopy, Pacemaker - [facility] Procedures (03/05/18) ASSISTANCE WITH RESPIRATORY VENTILATION, >96 HRS, CPAP (03/05/18) DIALYSIS ARTERIOVENOSTOM (10/07/14) EXCISION OF DUODENUM, ENDO (11/10/17) EXCISION OF SIGMOID COLON, ENDO, DIAGN (09/26/16) FLUOROSCOPY OF L INT MAMM GRAFT USING L OSM CONTRAST (03/05/18) FLUOROSCOPY OF LEFT HEART USING LOW OSMOLAR CONTRAST (03/05/18) FLUOROSCOPY OF MULT COR ART USING L OSM CONTRAST (03/05/18) INCIS W REM OF FORIEGN BODY OR DEV FROM SKIN & SUBCUT TISSUE (12/23/14) INSERT PACE. DUAL MARGIE IN CHEST SUBCU/FASCIA, OPEN (11/10/17) INSERTION OF PACEMAKER LEAD INTO R VENTRICLE, PERC APPROACH (11/10/17) INSERTION OF PACEMAKER LEAD INTO RIGHT ATRIUM, PERC APPROACH (11/10/17) MEASURE OF CARDIAC SAMPL & PRESSURE, L HEART, PERC APPROACH (03/05/18) MONITORING OF VENOUS PRESSURE, CENTRAL, PERC APPROACH (11/10/17) PERFORMANCE OF URINARY FILTRATION, MULTIPLE (04/11/17) RESPIRATORY VENTILATION, GREATER THAN 96 CONSECUTIVE HOURS (11/24/17) RESPIRATORY VENTILATION, LESS THAN 24 CONSECUTIVE HOURS (11/10/17) Family History: States: Unknown Family Hx - Social History Hx Alcohol Use: No Hx Substance Use: No - Immunization History Hx Influenza Vaccination: No (refuses) Hx Pneumococcal Vaccination: No (refuses) Review Of Systems Review Of Systems: ROS cannot be obtained secondary to pt's inabilty to answer questions. Physical Exam - Physical Exam Appears: No Acute Distress Skin: Warm, Dry, Other (Dressing in place to the right inguinal area) Head: Atraumatic, Normacephalic Eye(s): bilateral: Normal Inspection, PERRL, EOMI Oral Mucosa: Moist Neck: Normal ROM, Supple Chest: No Tenderness, Other (Pacemaker to right chest wall) Cardiovascular: Rhythm Regular, No Murmur Respiratory: Decreased Breath Sounds (diminished bilaterally), No Rales, No Rhonchi, No Wheezing Gastrointestinal/Abdominal: Soft, No Tenderness, No Distention Extremity: Other (Left AV fistula) Extremity: Bilateral: Atraumatic, Normal Color And Temperature, Other (Able to move the left arm off the bed for 2 seconds; Unable to fully assess ROM) Pulses: Left Radial: Normal, Right Radial: Normal Neurological/Psych: Other (Unable to assess mental status; Nonverbal patient) ED Course And Treatment - Laboratory Results Result Diagrams: 03/19/18 14:18 03/19/18 14:18 O2 Sat by Pulse Oximetry: 98 (RA) Pulse Ox Interpretation: Normal - Other Rad CXR X-Ray: Viewed By Me, Read By Radiologist Interpretation: Accession No. : [id number]. Patient Name / ID : TIERNEY LEVIN / [id number]. Exam Date : 03/19/2018 14:26:58 ( Approved ). Study Comment : Sex / Age : M / 67Y. Creator : Joycelyn Marques V. Dictator : Joycelyn Marques V. Outer Diameter Grinder Tool : Envelope Machine Adjuster : Joycelyn Marques V. Approver2 : Report Date : 03/19/2018 14:58:57. My Comment : . Date of service: 03/19/2018. HISTORY: altered. COMPARISON: 03/07/2018. FINDINGS: LUNGS: Interval increase opacification of 2 /3 of the right hemithorax. Enlarging right pleural effusion with inferred compressive atelectasis (with or without concomitant underlying infiltrate) is compatible with this. Small left pleural effusion -similar. PLEURA: No significant pleural effusion identified, no pneumothorax apparent. CARDIOVASCULAR: Cardiomegaly-as before. Midline sternotomy and duallead pacemaker device in place as before. Ext intrinsic tear cardiac monitoring device projecting over the heart. -similar. Pulmonary venous congestion inferred. OSSEOUS STRUCTURES: No significant abnormalities. VISUALIZED UPPER ABDOMEN: Normal. OTHER FINDINGS: None. IMPRESSION: Congestive heart failure with interval increase right pleural effusion 2/3 to 3/4 of the right hemithorax now. Extensive compressive atelectasis inferred - CT Scan/US Head CT Other Rad Studies (CT/US): Read By Radiologist, Radiology Report Reviewed CT/US Interpretation: Accession No. : [id number]. Patient Name / ID : TIERNEY LEVIN / [id number]. Exam Date : 03/19/2018 13:29:06 ( Approved ). Study Comment : Sex / Age : M / 67Y. Creator : Simona Gregory. Dictator : Berta Washington MD. Outer Diameter Grinder Tool : Envelope Machine Adjuster : Berta Washington MD. Approver2 : Report Date : 03/19/2018 13:35:03. My Comment : . Date of service: 03/19/2018. PROCEDURE: CT HEAD WITHOUT CONTRAST. HISTORY: Code Stroke. COMPARISON: Comparison is made with 03/06/2018. TECHNIQUE: Axial computed tomography images were obtained through the head/brain without intravenous contrast. Radiation dose: Total exam DLP = 2327.39 mGy-cm. This CT exam was performed using one or more of the following dose reduction techniques: Automated exposure control, adjustment of the mA and/or kV according to patient size, and/or use of iterative reconstruction technique. FINDINGS: HEMORRHAGE: No intracranial hemorrhage. BRAIN: No mass effect or edema. Mild atrophy and ybkl-oe-dqmcleed chronic microvascular white matter ischemic disease are again noted. VENTRICLES: Unremarkable. No hydrocephalus. CALVARIUM: Unremarkable. PARANASAL SINUSES: Unremarkable as visualized. No significant inflammatory changes. MASTOID AIR CELLS: Unremarkable as visualized. No inflammatory changes. OTHER FINDINGS: None. IMPRESSION: No evidence of acute intracranial hemorrhage transcortical infarction mass effect or midline shift. Mild atrophy and srbj-hh-wrksktns chronic microvascular white matter ischemic disease. No significant interval changes noted since the previous exam. Critical Care Time - Critical Care Note Total Time (in mins): 30 Documented critical care: time excludes all time spent performing seperately billable procedures. NIHSS Stroke Scale - Date/Time Evaluation Performed Date Performed: 03/19/18 Time Performed: 13:07 - How Severe is the Stoke Level of Consciousness: 0=Alert LOC to Questions: 2=Neither correct LOC to commands: 1=Obeys one correctly Best Gaze: 0=Normal Visual: 0=No visual loss Facial: 0=Normal Motor Arm - Left: 1=Drift noted before 10 sec Motor Arm - Right: 4=No movement Motor Leg - Left: 4=No movement Motor Leg - Right: 4=No movement Limb Ataxia: 0=Absent Sensory: 0=Normal Best Language: 3=Mute Dysarthia: 2=Severe, near unintelligible or worse Extinction & Inattention (Neglect): 0=Normal, no object Score: 21 Severity Of Stroke: 21-42= Severe Stroke rTPA Inclusion/Exclusion - Refusal of Treatment Patient Refused Treatment: No - Inclusion Criteria for Altepase Patient is 18 years or Older: Yes Clinical DX Ischemic Stroke Cause Neurological Deficit: Yes Time of Onset Established Less Than 270 Mins Before TX Begin: No Risk/Benefit Discussed With Patient/Family Member Present: No Medical Decision Making Medical Decision Making: Code Stroke immediately called upon evaluation. Initial Plan: --Head CT w/o contrast --VBG --Type/screen --CMP --CPK --Hb A1c --Lipid panel --Magnesium --Phosphorous --Troponin I --CBC --PTT/PT --Chest X-Ray --Urinalysis --Urine culture --Blood culture --IV fluids --Duoneb treatment --Stroke Team consult EKG shows paced rhythm at 80bpm. Presentation seems consistent with hypercapnia respiratory failure. Duonebs and bipap started. ?infectious component Dr. Frausto pagesudha for ICU consult. 1448 Dr. Frausto returned call, agrees with current management and recommends we hold antibiotics at this time, as presentation more consistent with COPD. Evaluated in ED and accepts to ICU 1458 Dr. Kelley negro for nephrology consult. 1501 Dr. Frausto evaluated patient in the ED, accepts patient for admission to ICU. [address] Carlos Andrews. He is requesting rocephin due to concern for sepsis. Helio speaking nurse reports that patient is reporting feeling better Disposition - Disposition Disposition: HOSPITALIZED Disposition Time: 13:55 Condition: CRITICAL - POA Core Measure Indicators: Code Stroke - Clinical Impression Clinical Impression: ESRD (end stage renal disease) on dialysis, Hypercapnic respiratory failure, Altered mental status, CHF (congestive heart failure), NYHA class III, Pleural effusion - Scribe Statement The provider has reviewed the documentation as recorded by the Pavel Munoz Provider Attestation: All medical record entries made by the Pavel were at my direction and personally dictated by me. I have reviewed the chart and agree that the record accurately reflects my personal performance of the history, physical exam, medical decision making, and the department course for this patient. I have also personally directed, reviewed, and agree with the discharge instructions and disposition.
--- NOTE | 2018-03-19 13:45 | CT ---
Date of service: 03/19/2018 PROCEDURE: CT HEAD WITHOUT CONTRAST. HISTORY: Code Stroke COMPARISON: Comparison is made with 03/06/2018 TECHNIQUE: Axial computed tomography images were obtained through the head/brain without intravenous contrast. Radiation dose: Total exam DLP = 2327.39 mGy-cm. This CT exam was performed using one or more of the following dose reduction techniques: Automated exposure control, adjustment of the mA and/or kV according to patient size, and/or use of iterative reconstruction technique. FINDINGS: HEMORRHAGE: No intracranial hemorrhage. BRAIN: No mass effect or edema. Mild atrophy and erbs-zy-dqzxtfzq chronic microvascular white matter ischemic disease are again noted. VENTRICLES: Unremarkable. No hydrocephalus. CALVARIUM: Unremarkable. PARANASAL SINUSES: Unremarkable as visualized. No significant inflammatory changes. MASTOID AIR CELLS: Unremarkable as visualized. No inflammatory changes. OTHER FINDINGS: None. IMPRESSION: No evidence of acute intracranial hemorrhage transcortical infarction mass effect or midline shift. Mild atrophy and ebzt-qo-pheytwho chronic microvascular white matter ischemic disease. No significant interval changes noted since the previous exam.
[2018-03-19 14:24] LABS: BASO # 0.1 K/uL (0.0-0.2); BASO % 0.8 % (0.0-2.0); EOS # 0.4 K/uL (0.0-0.7); EOS % 4.4 % (0.0-4.0); HEMOGLOBIN 10.9 g/dL (12.0-18.0); LYMPH # 0.7 K/uL (1.0-4.3); LYMPH % 8.4 % (20.0-40.0); MEAN CELL VOLUME 106.3 fL (80.0-94.0); MEAN CORPUSCULAR HEMOGLOBIN 33.1 pg (27.0-31.0); MEAN CORPUSCULAR HGB CONC 31.1 g/dL (33.0-37.0); MEAN PLATELET VOLUME 8.9 fL (7.2-11.7); MONO # 0.5 K/uL (0.0-0.8); MONO % 6.1 % (0.0-10.0); NEUT # 7.1 K/uL (1.8-7.0); NEUT % 80.3 % (50.0-75.0); NRBC % 2.7 % (0.0-2.0); PLATELET COUNT 108 K/uL (130-400); RBC 3.31 Mil/uL (4.40-5.90); RED CELL DISTRIBUTION WIDTH 19.7 % (11.5-14.5)
[2018-03-19 14:25] LABS: VENOUS BLOOD GAS BASE EXCESS 1.3 mmol/L (0.0-2.0); VENOUS BLOOD GAS PCO2 108 mmHg (40-60); VENOUS BLOOD GAS PO2 78 mm/Hg (30-55); VENOUS BLOOD PH 7.11 (7.32-7.43)
[2018-03-19 14:30] LABS: PROTHROMBIN TIME 10.7 SECONDS (9.7-12.2)
[2018-03-19 14:32] LABS: WHITE BLOOD COUNT 8.8 K/uL (4.8-10.8)
[2018-03-19] MEDS ORDERED: Albuterol-Ipratrop 3 mg / 0.5 (3 ml) UD INH STA (14:32)
[2018-03-19 14:47] LABS: ALB/GLOB RATIO 1.2 (1.0-2.1); ALBUMIN 3.3 g/dL (3.5-5.0); ALT/SGPT 35 U/L (21-72); AST/SGOT 17 U/L (17-59); BLOOD UREA NITROGEN 31 mg/dL (9-20); GFR NON-AFRICAN AMERICAN 10; HDL CHOLESTEROL 46 mg/dL (30-70)
[2018-03-19] MEDS ORDERED: Sodium Chloride 0.9% 200 ML IV ONE (14:49)
[2018-03-19 14:51] LABS: LDL CHOLESTEROL < 30 mg/dL (0-129)
[2018-03-19 14:55] LABS: ANISOCYTOSIS MODERATE; BANDS 3 % (0-2); BASOPHIL 1 % (0-2); EOSINOPHIL 2 % (0-4); LYMPHOCYTE 6 % (20-40); MONOCYTE 6 % (0-10); MYELOCYTE 1 % (0-0); NEUTROPHIL 81 % (50-75); NUCLEATED RED BLOOD CELL 2 % (0-0); PLATELET ESTIMATE SLIGHTLY DECREASED (NORMAL); TOTAL CELLS COUNTED 100
--- NOTE | 2018-03-19 15:00 | RAD ---
Date of service: 03/19/2018 HISTORY: altered COMPARISON: 03/07/2018 FINDINGS: LUNGS: Interval increase opacification of 2/3 of the right hemithorax. Enlarging right pleural effusion with inferred compressive atelectasis (with or without concomitant underlying infiltrate) is compatible with this. Small left pleural effusion -similar. PLEURA: No significant pleural effusion identified, no pneumothorax apparent. CARDIOVASCULAR: Cardiomegaly-as before. Midline sternotomy and duallead pacemaker device in place as before. Ext intrinsic tear cardiac monitoring device projecting over the heart. -similar Pulmonary venous congestion inferred. OSSEOUS STRUCTURES: No significant abnormalities. VISUALIZED UPPER ABDOMEN: Normal. OTHER FINDINGS: None. IMPRESSION: Congestive heart failure with interval increase right pleural effusion 2/3 to 3/4 of the right hemithorax now. Extensive compressive atelectasis inferred
[2018-03-19] MEDS ORDERED: Sodium Chloride 0.9% 250 ML IV ONE (15:05)
[2018-03-19 15:11] LABS: URINE AMORPHOUS SEDIMENT MODERATE /ul (<OCC); URINE BACTERIA MOD (<OCC); URINE BILIRUBIN NEGATIVE (NEGATIVE); URINE BLOOD 3+ (NEGATIVE); URINE CLARITY Turbid (Clear); URINE GLUCOSE (UA) NORMAL (Normal); URINE PROTEIN 2+ mg/dL (NEGATIVE); URINE UROBILINOGEN NORMAL mg/dL (0.2-1.0); WBC CLUMPS MANY /hpf
[2018-03-19] MEDS ORDERED: cefTRIAXone 1 gm 1 GM/100 ML BAG IVPB ONE (15:12)
[2018-03-19 15:17] LABS: URINE COLOR BROWN (YELLOW); URINE LEUKOCYTE ESTERASE 3+ Leu/uL (Negative)
--- NOTE | 2018-03-19 16:20 | CP.PCM.CON ---
<Yamilet Casas - Last Filed: 03/19/18 18:13> History of Present Illness - History of Present Illness History of Present Illness: ICU Consult Note HPI: Patient is a 67 year old male with history of ESRD on hemodialysis, CAD, DM , CVA, s/p pacemaker who presented from retirement for altered mental status. He was reportedly found altered after he was sent to dialysis earlier today, however was noted by staff to be altered. On evaluation, patent is altered and unable to provide history. As per prior note, patient has prior left upper extremity and bilateral lower extremity deficit from prior CVA. Last known to be well yesterday at 03/18/18. Information obtained from prior records. PMD: Dr. Carlos Andrews PMH: anemia, asthma, CHF, COPD, CVA affecting left side, depression, HTN, hypercholesterolemia, ESRD on HD, sleep apnea PSH: CABG, dual chamber pacemaker Allergies: Iodine, Clopidogrel, PCN, IV Dye Social history: no alcohol, tobacco or drug abuse. Home meds: Tramadol, Ambien, Renvela, Miralax, Zofran, Midodrine, Lisinopril, Lactulose, Humulin, Gabapentin, Lasix, NephroVite, Ferrous sulfate, Colace, Atorvastatin, ASA, Xanax Review of Systems - Review of Systems Systems not reviewed;Unavailable: Altered Mental Status Past Patient History - Infectious Disease Hx of Infectious Diseases: None - Past Medical History & Family History Past Medical History?: Yes - Past Social History Smoking Status: Never Smoked - CARDIAC Hx Congestive Heart Failure: Yes Hx Hypercholesterolemia: Yes Hx Hypertension: Yes Hx Pacemaker: Yes Hx Peripheral Edema: Yes - PULMONARY Hx Asthma: Yes Hx Chronic Obstructive Pulmonary Disease (COPD): Yes Hx Sleep Apnea: Yes - NEUROLOGICAL HX Cerebrovascular Accident: Yes (L UE AND B/L LE WEAKNESS) - HEENT Hx HEENT Problems: Yes Hx Cataracts: Yes - RENAL Hx Chronic Kidney Disease: Yes - ENDOCRINE/METABOLIC Hx Diabetes Mellitus Type 2: Yes - HEMATOLOGICAL/ONCOLOGICAL Hx Anemia: Yes - INTEGUMENTARY Hx Dermatological Problems: Yes Other/Comment: healed sacral ulcer - MUSCULOSKELETAL/RHEUMATOLOGICAL Hx Falls: Yes - GASTROINTESTINAL Hx Gastrointestinal Disorders: Yes Other/Comment: HX: DYSPHAGIA,UNSPECIFIED - GENITOURINARY/GYNECOLOGICAL Hx Genitourinary Disorders: No - PSYCHIATRIC Hx Depression: Yes ('MAJOR DEPRESSIVE DISORDER,SINGLE EPISODE,UNSPECIFIED") Hx Substance Use: No - SURGICAL HISTORY Hx Coronary Artery Bypass Graft: Yes - ANESTHESIA Hx Anesthesia: Yes Hx Anesthesia Reactions: No Hx Malignant Hyperthermia: No Meds Allergies/Adverse Reactions: Allergies Allergy/AdvReac Type Severity Reaction Status Date / Time iodine Allergy Intermediate RASH Verified 03/19/18 13:17 clopidogrel [From Plavix] Allergy SHORTNESS Verified 03/19/18 13:17 OF BREATH clopidogrel bisulfate Allergy UNKNOWN Verified 03/19/18 13:17 [From Plavix] penicillin G Allergy SHORTNESS Verified 03/19/18 13:17 OF BREATH Penicillins Allergy UNKNOWN Verified 03/19/18 13:17 IV DYE Allergy unknown Uncoded 03/19/18 13:17 - Medications Medications: Current Medications Sodium Chloride (Sodium Chloride 0.9%) 200 mls @ 80 mls/hr IV .Q2H30M ONE Stop: 03/19/18 17:18 Last Admin: 03/19/18 15:07 Dose: 80 mls/hr Physical Exam - Constitutional Appears: Other (Altered) - Head Exam Head Exam: ATRAUMATIC, NORMAL INSPECTION - Eye Exam Additional comments: Patient unable to follow commands. - ENT Exam ENT Exam: Mucous Membranes Moist - Respiratory Exam Respiratory Exam: Accessory Muscle Use, Respiratory Distress. absent: Chest Wall Tenderness - Cardiovascular Exam Cardiovascular Exam: +S1, +S2 Additional comments: Paced at 80 - GI/Abdominal Exam GI & Abdominal Exam: Normal Bowel Sounds, Soft. absent: Distended, Firm - Extremities Exam Extremities exam: Positive for: pedal pulses present (bilateral DP pulses present. ). Negative for: calf tenderness - Neurological Exam Neurological exam: Altered - Psychiatric Exam Additional comments: Altered - Skin Skin Exam: Dry, Intact, Warm Results - Vital Signs Recent Vital Signs: Last Vital Signs Temp 95.6 F L 03/19/18 16:12 Pulse 80 03/19/18 16:12 Resp 20 03/19/18 16:12 BP 119/23 L 03/19/18 16:12 Pulse Ox 100 03/19/18 16:12 - Labs Result Diagrams: 03/19/18 14:18 03/19/18 14:18 Labs: Laboratory Results - last 24 hr 03/19/18 03/19/18 03/19/18 13:18 14:18 14:18 WBC 8.8 D RBC 3.31 L Hgb 10.9 L Hct 35.2 MCV 106.3 H MCH 33.1 H MCHC 31.1 L RDW 19.7 H Plt Count 108 L MPV 8.9 Neut % (Auto) 80.3 H Lymph % (Auto) 8.4 L Lake % (Auto) 6.1 Eos % (Auto) 4.4 H Baso % (Auto) 0.8 Neut # (Auto) 7.1 H Lymph # (Auto) 0.7 L Lake # (Auto) 0.5 Eos # (Auto) 0.4 Baso # (Auto) 0.1 Neutrophils % (Manual) 81 H Band Neutrophils % 3 H Lymphocytes % (Manual) 6 L Monocytes % (Manual) 6 Eosinophils % (Manual) 2 Basophils % (Manual) 1 Myelocytes % 1 H Nucleated RBC % 2 H Platelet Estimate Slightly decreased L Basophilic Stippling Slight Anisocytosis (manual) Moderate Macrocytosis (manual) Moderate PT 10.7 INR 1.0 APTT 39 H pO2 VBG pH VBG pCO2 VBG HCO3 VBG Total CO2 VBG O2 Sat (Calc) VBG Base Excess VBG Potassium Glucose Lactate FiO2 Crit Value Called To Crit Value Called By Crit Value Read Back Blood Gas Notified Time Sodium Potassium Chloride Carbon Dioxide Anion Gap BUN Creatinine Est GFR ( Amer) Est GFR (Non-Af Amer) POC Glucose (mg/dL) 131 H Random Glucose Hemoglobin A1c Calcium Phosphorus Magnesium Total Bilirubin AST ALT Alkaline Phosphatase Total Creatine Kinase Troponin I Total Protein Albumin Globulin Albumin/Globulin Ratio Triglycerides Cholesterol LDL Cholesterol Direct HDL Cholesterol Venous Blood Potassium Urine Color Urine Clarity Urine pH Ur Specific [place] Urine Protein Urine Glucose (UA) Urine Ketones Urine Blood Urine Nitrate Urine Bilirubin Urine Urobilinogen Ur Leukocyte Esterase Urine WBC (Auto) Urine RBC (Auto) Urine WBC Clumps (Auto) Amorphous Sediment Urine Bacteria 03/19/18 03/19/18 03/19/18 14:18 14:18 14:20 WBC RBC Hgb Hct MCV MCH MCHC RDW Plt Count MPV Neut % (Auto) Lymph % (Auto) Lake % (Auto) Eos % (Auto) Baso % (Auto) Neut # (Auto) Lymph # (Auto) Lake # (Auto) Eos # (Auto) Baso # (Auto) Neutrophils % (Manual) Band Neutrophils % Lymphocytes % (Manual) Monocytes % (Manual) Eosinophils % (Manual) Basophils % (Manual) Myelocytes % Nucleated RBC % Platelet Estimate Basophilic Stippling Anisocytosis (manual) Macrocytosis (manual) PT INR APTT pO2 78 H VBG pH 7.11 L* VBG pCO2 108 H* VBG HCO3 25.7 VBG Total CO2 37.6 H VBG O2 Sat (Calc) 96.9 H VBG Base Excess 1.3 VBG Potassium 4.1 Glucose 127 H Lactate 0.6 L FiO2 21.0 Crit Value Called To Er physician Crit Value Called By Mahendra Crit Value Read Back Y Blood Gas Notified Time 1425 Sodium 141 138.0 Potassium 4.3 Chloride 98 102.0 Carbon Dioxide 32 H Anion Gap 14 BUN 31 H Creatinine 5.6 H Est GFR ( Amer) 12 Est GFR (Non-Af Amer) 10 POC Glucose (mg/dL) Random Glucose 130 H Hemoglobin A1c 4.0 L Calcium 9.0 Phosphorus 4.4 Magnesium 2.6 H Total Bilirubin 0.7 AST 17 ALT 35 Alkaline Phosphatase 90 Total Creatine Kinase 26 L Troponin I < 0.0120 Total Protein 6.1 L Albumin 3.3 L Globulin 2.8 Albumin/Globulin Ratio 1.2 Triglycerides 136 D Cholesterol 101 LDL Cholesterol Direct < 30 HDL Cholesterol 46 Venous Blood Potassium 4.1 Urine Color Urine Clarity Urine pH Ur Specific [place] Urine Protein Urine Glucose (UA) Urine Ketones Urine Blood Urine Nitrate Urine Bilirubin Urine Urobilinogen Ur Leukocyte Esterase Urine WBC (Auto) Urine RBC (Auto) Urine WBC Clumps (Auto) Amorphous Sediment Urine Bacteria 03/19/18 14:50 WBC RBC Hgb Hct MCV MCH MCHC RDW Plt Count MPV Neut % (Auto) Lymph % (Auto) Lake % (Auto) Eos % (Auto) Baso % (Auto) Neut # (Auto) Lymph # (Auto) Lake # (Auto) Eos # (Auto) Baso # (Auto) Neutrophils % (Manual) Band Neutrophils % Lymphocytes % (Manual) Monocytes % (Manual) Eosinophils % (Manual) Basophils % (Manual) Myelocytes % Nucleated RBC % Platelet Estimate Basophilic Stippling Anisocytosis (manual) Macrocytosis (manual) PT INR APTT pO2 VBG pH VBG pCO2 VBG HCO3 VBG Total CO2 VBG O2 Sat (Calc) VBG Base Excess VBG Potassium Glucose Lactate FiO2 Crit Value Called To Crit Value Called By Crit Value Read Back Blood Gas Notified Time Sodium Potassium Chloride Carbon Dioxide Anion Gap BUN Creatinine Est GFR ( Amer) Est GFR (Non-Af Amer) POC Glucose (mg/dL) Random Glucose Hemoglobin A1c Calcium Phosphorus Magnesium Total Bilirubin AST ALT Alkaline Phosphatase Total Creatine Kinase Troponin I Total Protein Albumin Globulin Albumin/Globulin Ratio Triglycerides Cholesterol LDL Cholesterol Direct HDL Cholesterol Venous Blood Potassium Urine Color Brown Urine Clarity Turbid Urine pH 6.0 Ur Specific [place] 1.023 Urine Protein 2+ H Urine Glucose (UA) Normal Urine Ketones Trace Urine Blood 3+ H Urine Nitrate Negative Urine Bilirubin Negative Urine Urobilinogen Normal Ur Leukocyte Esterase 3+ H Urine WBC (Auto) 73320 H Urine RBC (Auto) 2075 H Urine WBC Clumps (Auto) Many H Amorphous Sediment Moderate H Urine Bacteria Mod H Assessment & Plan - Assessment and Plan (Free Text) Assessment: 67 year old male with history of CAD s/p pacemaker, CVA, DM, ESRD on HD who presented for altered mental status. Patient was noted to be in respiratory distress. Patient was initially placed on BIPAP in the ED, however patient was intubated on arrival to the ICU. Patient was found to be hypotensive and had central line placed. Plan: Neuro: Altered Unable to assess GCS Continue to monitor 03/[address]: No evidence of acute intracranial hemorrhage transcortical infarction mass effect or midline shift. Mild atrophy and [id number] chronic microvascular white matter ischemic disease. No significant interval changes noted since the previous exam. Sedated on Propofol 5mcg/kg/min Pulmonary: 03/19 CXR Congestive heart failure with interval increase right pleural effusion 2/3 to 3/4 of the right hemithorax now. Extensive compressive atelectasis inferred ABG pH 7.13 pCO2 103 pO2 56 lactate 0.5 03/19 Intubated on arrival 03/19 CXR after intubation and central line placement reveal ETT in good position Cardiovascular: Troponin <0.0120 03/19 CXR Congestive heart failure with interval increase right pleural effusion 2/3 to 3/4 of the right hemithorax now. Extensive compressive atelectasis inferred BP initially 95/25 Right IJ TLC placed Not currently on pressors since BP went up after central line placement Continue to monitor ASA 81mg Renal: Hx of ESRD on HD UA: 3+ leuk esterase, 3+ blood, 2+ protein moderate bacteria Procrit 4000 units IV TTS Paracalcitol 2mg IV TTS Nephrology Dr. Ortiz consulted, help appreciated Given recent hypotension, GI: Protonix 40mg IV Endo: A1c: 4 Continue to monitor blood glucose levels ID: Hypothermic with Temp 95.8 White count 8.8 with bands of 3 Aztreonam 1g IV Vancomycin 1g IV ID Dr. Rodas consulted, help appreciated Blood cultures, urine culture, sputum cultures sent Heme: H/H 10.9/35.2 No evidence of bleeding Not tachycardic <Joey Frausto - Last Filed: 03/19/18 18:59> Meds - Medications Medications: Current Medications Aspirin (Aspirin Chewable) 81 mg PO DAILY BELL Epoetin Mario (Procrit) 4,000 unit IV TTS BELL Propofol (Diprivan) 1,000 mg in 100 mls @ 2.449 mls/hr IV .Q24H PRN; Protocol; 5 MCG/KG/MIN PRN Reason: TITRATE PER MD ORDER Last Admin: 03/19/18 18:51 Dose: 5 mcg/kg/min, 2.449 mls/hr Aztreonam 1 gm/ Sodium (Chloride) 100 mls @ 100 mls/hr IVPB Q24H BELL PRN Reason: Protocol Vancomycin/Sodium Chloride (Vancomycin 1 Gm/Ns 200 Ml) 1 gm in 200 mls @ 133.333 mls/hr IVPB ONCE ONE PRN Reason: Protocol Stop: 03/19/18 20:29 Pantoprazole Sodium (Protonix Inj) 40 mg IVP DAILY BELL Paricalcitol (Zemplar) 2 mcg IV TTS BELL Results - Vital Signs Recent Vital Signs: Last Vital Signs Temp 96.4 F L 03/19/18 16:30 Pulse 80 03/19/18 18:10 Resp 16 03/19/18 18:10 BP 167/144 H 03/19/18 18:05 Pulse Ox 100 03/19/18 18:10 - Labs Result Diagrams: 03/19/18 14:18 03/19/18 14:18 Labs: Laboratory Results - last 24 hr 03/19/18 03/19/18 03/19/18 13:18 14:18 14:18 WBC 8.8 D RBC 3.31 L Hgb 10.9 L Hct 35.2 MCV 106.3 H MCH 33.1 H MCHC 31.1 L RDW 19.7 H Plt Count 108 L MPV 8.9 Neut % (Auto) 80.3 H Lymph % (Auto) 8.4 L Lake % (Auto) 6.1 Eos % (Auto) 4.4 H Baso % (Auto) 0.8 Neut # (Auto) 7.1 H Lymph # (Auto) 0.7 L [place] # (Auto) 0.5 Eos # (Auto) 0.4 Baso # (Auto) 0.1 Neutrophils % (Manual) 81 H Band Neutrophils % 3 H Lymphocytes % (Manual) 6 L Monocytes % (Manual) 6 Eosinophils % (Manual) 2 Basophils % (Manual) 1 Myelocytes % 1 H Nucleated RBC % 2 H Platelet Estimate Slightly decreased L Basophilic Stippling Slight Anisocytosis (manual) Moderate Macrocytosis (manual) Moderate PT 10.7 INR 1.0 APTT 39 H Puncture Site pCO2 pO2 HCO3 ABG pH ABG Total CO2 ABG O2 Saturation ABG Base Excess Esvin Test ABG Potassium VBG pH VBG pCO2 VBG HCO3 VBG Total CO2 VBG O2 Sat (Calc) VBG Base Excess VBG Potassium A-a O2 Difference Respiratory Index Glucose Lactate FiO2 Inspiratory BiPAP Expiratory BiPAP Crit Value Called To Crit Value Called By Crit Value Read Back Blood Gas Notified Time Sodium Potassium Chloride Carbon Dioxide Anion Gap BUN Creatinine Est GFR ( Amer) Est GFR (Non-Af Amer) POC Glucose (mg/dL) 131 H Random Glucose Hemoglobin A1c Calcium Phosphorus Magnesium Total Bilirubin AST ALT Alkaline Phosphatase Total Creatine Kinase Troponin I Total Protein Albumin Globulin Albumin/Globulin Ratio Triglycerides Cholesterol LDL Cholesterol Direct HDL Cholesterol Arterial Blood Potassium Venous Blood Potassium Urine Color Urine Clarity Urine pH Ur Specific [place] Urine Protein Urine Glucose (UA) Urine Ketones Urine Blood Urine Nitrate Urine Bilirubin Urine Urobilinogen Ur Leukocyte Esterase Urine WBC (Auto) Urine RBC (Auto) Urine WBC Clumps (Auto) Amorphous Sediment Urine Bacteria Blood Type Antibody Screen 03/19/18 03/19/18 03/19/18 14:18 14:18 14:20 WBC RBC Hgb Hct MCV MCH MCHC RDW Plt Count MPV Neut % (Auto) Lymph % (Auto) Lake % (Auto) Eos % (Auto) Baso % (Auto) Neut # (Auto) Lymph # (Auto) [place] # (Auto) Eos # (Auto) Baso # (Auto) Neutrophils % (Manual) Band Neutrophils % Lymphocytes % (Manual) Monocytes % (Manual) Eosinophils % (Manual) Basophils % (Manual) Myelocytes % Nucleated RBC % Platelet Estimate Basophilic Stippling Anisocytosis (manual) Macrocytosis (manual) PT INR APTT Puncture Site pCO2 pO2 78 H HCO3 ABG pH ABG Total CO2 ABG O2 Saturation ABG Base Excess Esvin Test ABG Potassium VBG pH 7.11 L* VBG pCO2 108 H* VBG HCO3 25.7 VBG Total CO2 37.6 H VBG O2 Sat (Calc) 96.9 H VBG Base Excess 1.3 VBG Potassium 4.1 A-a O2 Difference Respiratory Index Glucose 127 H Lactate 0.6 L FiO2 21.0 Inspiratory BiPAP Expiratory BiPAP Crit Value Called To Er physician Crit Value Called By Mahendra Crit Value Read Back Y Blood Gas Notified Time 1425 Sodium 141 138.0 Potassium 4.3 Chloride 98 102.0 Carbon Dioxide 32 H Anion Gap 14 BUN 31 H Creatinine 5.6 H Est GFR ( Amer) 12 Est GFR (Non-Af Amer) 10 POC Glucose (mg/dL) Random Glucose 130 H Hemoglobin A1c 4.0 L Calcium 9.0 Phosphorus 4.4 Magnesium 2.6 H Total Bilirubin 0.7 AST 17 ALT 35 Alkaline Phosphatase 90 Total Creatine Kinase 26 L Troponin I < 0.0120 Total Protein 6.1 L Albumin 3.3 L Globulin 2.8 Albumin/Globulin Ratio 1.2 Triglycerides 136 D Cholesterol 101 LDL Cholesterol Direct < 30 HDL Cholesterol 46 Arterial Blood Potassium Venous Blood Potassium 4.1 Urine Color Urine Clarity Urine pH Ur Specific [place] Urine Protein Urine Glucose (UA) Urine Ketones Urine Blood Urine Nitrate Urine Bilirubin Urine Urobilinogen Ur Leukocyte Esterase Urine WBC (Auto) Urine RBC (Auto) Urine WBC Clumps (Auto) Amorphous Sediment Urine Bacteria Blood Type Antibody Screen 03/19/18 03/19/18 03/19/18 14:50 15:45 17:05 WBC RBC Hgb Hct MCV MCH MCHC RDW Plt Count MPV Neut % (Auto) Lymph % (Auto) Lake % (Auto) Eos % (Auto) Baso % (Auto) Neut # (Auto) Lymph # (Auto) Lake # (Auto) Eos # (Auto) Baso # (Auto) Neutrophils % (Manual) Band Neutrophils % Lymphocytes % (Manual) Monocytes % (Manual) Eosinophils % (Manual) Basophils % (Manual) Myelocytes % Nucleated RBC % Platelet Estimate Basophilic Stippling Anisocytosis (manual) Macrocytosis (manual) PT INR APTT Puncture Site Rba pCO2 102 H* pO2 56 L HCO3 25.5 ABG pH 7.13 L* ABG Total CO2 37.0 H ABG O2 Saturation 91.6 L ABG Base Excess 1.4 Esvin Test Na ABG Potassium 3.9 VBG pH VBG pCO2 VBG HCO3 VBG Total CO2 VBG O2 Sat (Calc) VBG Base Excess VBG Potassium A-a O2 Difference 102.0 Respiratory Index 1.8 Glucose 107 Lactate 0.5 L FiO2 40.0 Inspiratory BiPAP 16 Expiratory BiPAP 8 Crit Value Called To Jett carbone Crit Value Called By Navneet Crit Value Read Back Y Blood Gas Notified Time 1708 Sodium 139.0 Potassium Chloride 104.0 Carbon Dioxide Anion Gap BUN Creatinine Est GFR ( Amer) Est GFR (Non-Af Amer) POC Glucose (mg/dL) Random Glucose Hemoglobin A1c Calcium Phosphorus Magnesium Total Bilirubin AST ALT Alkaline Phosphatase Total Creatine Kinase Troponin I Total Protein Albumin Globulin Albumin/Globulin Ratio Triglycerides Cholesterol LDL Cholesterol Direct HDL Cholesterol Arterial Blood Potassium 3.9 Venous Blood Potassium Urine Color Brown Urine Clarity Turbid Urine pH 6.0 Ur Specific [place] 1.023 Urine Protein 2+ H Urine Glucose (UA) Normal Urine Ketones Trace Urine Blood 3+ H Urine Nitrate Negative Urine Bilirubin Negative Urine Urobilinogen Normal Ur Leukocyte Esterase 3+ H Urine WBC (Auto) 49155 H Urine RBC (Auto) 2075 H Urine WBC Clumps (Auto) Many H Amorphous Sediment Moderate H Urine Bacteria Mod H Blood Type B POSITIVE Antibody Screen Positive Attending/Attestation - Attestation I have personally seen and examined this patient.: Yes I have fully participated in the care of the patient.: Yes I have reviewed all pertinent clinical information: Yes Notes (Text): 03/19/18 18:57 patient seen and examined 67[facility] In the emergency room patient phoned to be hypercapnic and obtunded. Patient placed on BiPAP and transferred to intensive care unit Patient intubated in the ICU for increasing lethargy and hypoxemia Triple-lumen catheter inserted and right internal jugular vein Started on IV antibiotics IV sedation Hemodialysis when more stable Tracheal aspirate and urine for culture and sensitivity Blood culture and sensitivity
[2018-03-19 17:09] LABS: ARTERIAL BLOOD GAS HCO3 25.5 mmol/L (21-28); ARTERIAL BLOOD GAS O2 SAT 91.6 % (95-98); ARTERIAL BLOOD GAS PCO2 102 mm/Hg (35-45); ARTERIAL BLOOD GAS PH 7.13 (7.35-7.45); ARTERIAL BLOOD GAS PO2 56 mm/Hg (80-100)
[2018-03-19] MEDS: Etomidate 20 mg/10ml Inj IV ONE ×2 (17:20→18:51)
[2018-03-19] MEDS ORDERED: Succinylcholine Chloride 20 mg/ml Syr (5 ml) IV ONE ×2 (17:37→18:30)
[2018-03-19] MEDS ORDERED: Propofol 10 mg/ml 1,000 MG/100 ML VIAL IV PRN (18:24)
--- NOTE | 2018-03-19 18:24 | RAD ---
Date of service: 03/19/2018 HISTORY: s/p intubation, TLC insertion COMPARISON: 03/19/2018 at 2:27 p.m. FINDINGS: LUNGS: Opacity at right base common nonspecific. This may be due to dependent pleural fluid. PLEURA: Markedly decreased right pleural effusion compared to earlier examination. Minimal left pleural effusion. No pneumothorax. CARDIOVASCULAR: Normal heart size. Sternotomy wires. New right IJ multi lumen central venous catheter. New endotracheal tube positioned with its tip approximately 5.5 cm above tracheal medina peer permanent pacemaker. New nasogastric tube extends to the left upper quadrant of the abdomen. OSSEOUS STRUCTURES: No significant abnormalities. VISUALIZED UPPER ABDOMEN: Normal. OTHER FINDINGS: None. IMPRESSION: Diminished right pleural effusion. Trace left pleural effusion. No pneumothorax. New endotracheal tube, nasogastric tube and right IJ multi lumen central venous catheter.
[2018-03-19] MEDS ORDERED: Propofol 10 mg/ml Inj (20 ML) IV ONE (18:30)
[2018-03-19] MEDS ORDERED: Vancomycin 1 gm/NS 200 ml 1 GM/200 ML BAG IVPB ONE (19:00)
--- NOTE | 2018-03-19 19:01 | PCM.PROC ---
Procedures Attestation:: I certify that I have explained the specified Operation(s) or Procedure(s), risks, benefits and reasonable alternatives to the Patient and/or other person responsible. The opportunity was given to ask questions and all questions answered - Central Line Placement Right Internal Jugular Triple Lumen Catheter Aseptic technique was employed throughout the procedure: Hand Hygiene done prior to procedure, Full sterile barriers (mask, hair cover, sterile gown, sterile gloves), Chloraprep Antiseptic: 30 second prep for IJ or SC sites CVP Time Out Performed: Yes Pt. Placed on Pulse Ox Monitor: Yes Central Line Prep: Chlorhexidine-Alcohol Combination Local Anesthesia Used: Lidocaine 1% Amount of Anesthesia Used (mls): 3 Ultrasound Used for Placement: Yes Central Line Lumen Inserted: triple Central Line Length: 16 cm Post Procedure: Sutured in Place, Good Blood Return, All Ports Aspirated, Flushed, Capped, Sterile Dressing Applied Secured by: Suture Post procedure dressing: Chlorhexidine disc (Biopatch) Post Procedure X-Ray: Yes Patient Tolerated Procedure: Well
--- NOTE | 2018-03-19 19:03 | PCM.PROC ---
Procedures Attestation:: I certify that I have explained the specified Operation(s) or Procedure(s), risks, benefits and reasonable alternatives to the Patient and/or other person responsible. The opportunity was given to ask questions and all questions answered - Intubation Time Out Performed: Yes Sedative: Etomidate Mg Given: 20 Paralytic: Succinylholine Mg Given: 50 Laryngoscope: Indra ET Tube Size: 8.0 ET Tube Uncuffed: No ET Tube Secured at Depth: 22 ET Tube Secured Locarion: Lips ET Tube Placement Confirmation: Visualized Passing Through Cords, Breath Sounds Equal Bilaterally, No Breath Sounds Over Epigastrum, Confirmation w/Capnometry Patient Tolerated Procedure: Well Procedure Immediate Complications: None
[2018-03-19 19:07] LABS: ARTERIAL BLOOD GAS HCO3 29.8 mmol/L (21-28); ARTERIAL BLOOD GAS HEMOGLOBIN 10.7 g/dL (11.7-17.4); ARTERIAL BLOOD GAS O2 SAT 99.8 % (95-98); ARTERIAL BLOOD GAS PCO2 52 mm/Hg (35-45); ARTERIAL BLOOD GAS PO2 287 mm/Hg (80-100); ARTERIAL BLOOD GAS TCO2 33.8 mmol/L (22-28)
--- NOTE | 2018-03-19 19:36 | CP.PCM.CON ---
History of Present Illness - History of Present Illness History of Present Illness: pt is seen an examined, full consult is dictated #[id number] 1. acute resp.failure 2. ESRD 2. massive rt pelural effusion/ compressive atelectasis 4. hypotension 5. chf will schedule for hd to night, uf goal is 1- 1.5 lit c/w vent support c/w iv bx, check blood c/s, urine c/s, consider ct chest , and thoracentesis Past Patient History - Infectious Disease Hx of Infectious Diseases: None - Past Medical History & Family History Past Medical History?: Yes - Past Social History Smoking Status: Never Smoked - CARDIAC Hx Congestive Heart Failure: Yes Hx Hypercholesterolemia: Yes Hx Hypertension: Yes Hx Pacemaker: Yes Hx Peripheral Edema: Yes - PULMONARY Hx Asthma: Yes Hx Chronic Obstructive Pulmonary Disease (COPD): Yes Hx Sleep Apnea: Yes - NEUROLOGICAL HX Cerebrovascular Accident: Yes (L UE AND B/L LE WEAKNESS) - HEENT Hx HEENT Problems: Yes Hx Cataracts: Yes - RENAL Hx Chronic Kidney Disease: Yes - ENDOCRINE/METABOLIC Hx Diabetes Mellitus Type 2: Yes - HEMATOLOGICAL/ONCOLOGICAL Hx Anemia: Yes - INTEGUMENTARY Hx Dermatological Problems: Yes Other/Comment: healed sacral ulcer - MUSCULOSKELETAL/RHEUMATOLOGICAL Hx Falls: Yes - GASTROINTESTINAL Hx Gastrointestinal Disorders: Yes Other/Comment: HX: DYSPHAGIA,UNSPECIFIED - GENITOURINARY/GYNECOLOGICAL Hx Genitourinary Disorders: No - PSYCHIATRIC Hx Depression: Yes ('MAJOR DEPRESSIVE DISORDER,SINGLE EPISODE,UNSPECIFIED") Hx Substance Use: No - SURGICAL HISTORY Hx Coronary Artery Bypass Graft: Yes - ANESTHESIA Hx Anesthesia: Yes Hx Anesthesia Reactions: No Hx Malignant Hyperthermia: No Meds Allergies/Adverse Reactions: Allergies Allergy/AdvReac Type Severity Reaction Status Date / Time iodine Allergy Intermediate RASH Verified 03/19/18 13:17 clopidogrel [From Plavix] Allergy SHORTNESS Verified 03/19/18 13:17 OF BREATH clopidogrel bisulfate Allergy UNKNOWN Verified 03/19/18 13:17 [From Plavix] penicillin G Allergy SHORTNESS Verified 03/19/18 13:17 OF BREATH Penicillins Allergy UNKNOWN Verified 03/19/18 13:17 IV DYE Allergy unknown Uncoded 03/19/18 13:17 - Medications Medications: Current Medications Aspirin (Aspirin Chewable) 81 mg PO DAILY BELL Epoetin Mario (Procrit) 4,000 unit IV TTS BELL Propofol (Diprivan) 1,000 mg in 100 mls @ 2.449 mls/hr IV .Q24H PRN; Protocol; 5 MCG/KG/MIN PRN Reason: TITRATE PER MD ORDER Last Admin: 03/19/18 18:51 Dose: 5 mcg/kg/min, 2.449 mls/hr Aztreonam 1 gm/ Sodium (Chloride) 100 mls @ 100 mls/hr IVPB Q24H BELL PRN Reason: Protocol Vancomycin/Sodium Chloride (Vancomycin 1 Gm/Ns 200 Ml) 1 gm in 200 mls @ 133.333 mls/hr IVPB ONCE ONE PRN Reason: Protocol Stop: 03/19/18 20:29 Pantoprazole Sodium (Protonix Inj) 40 mg IVP DAILY BELL Paricalcitol (Zemplar) 2 mcg IV TTS BELL Results - Vital Signs Recent Vital Signs: Last Vital Signs Temp 96.4 F L 03/19/18 16:30 Pulse 80 03/19/18 19:00 Resp 20 03/19/18 19:00 BP 109/44 L 03/19/18 18:43 Pulse Ox 100 03/19/18 19:00 - Labs Result Diagrams: 03/19/18 14:18 03/19/18 14:18 Labs: Laboratory Results - last 24 hr 03/19/18 03/19/18 03/19/18 13:18 14:18 14:18 WBC 8.8 D RBC 3.31 L Hgb 10.9 L Hct 35.2 MCV 106.3 H MCH 33.1 H MCHC 31.1 L RDW 19.7 H Plt Count 108 L MPV 8.9 Neut % (Auto) 80.3 H Lymph % (Auto) 8.4 L [place] % (Auto) 6.1 Eos % (Auto) 4.4 H Baso % (Auto) 0.8 Neut # (Auto) 7.1 H Lymph # (Auto) 0.7 L [place] # (Auto) 0.5 Eos # (Auto) 0.4 Baso # (Auto) 0.1 Neutrophils % (Manual) 81 H Band Neutrophils % 3 H Lymphocytes % (Manual) 6 L Monocytes % (Manual) 6 Eosinophils % (Manual) 2 Basophils % (Manual) 1 Myelocytes % 1 H Nucleated RBC % 2 H Platelet Estimate Slightly decreased L Basophilic Stippling Slight Anisocytosis (manual) Moderate Macrocytosis (manual) Moderate PT 10.7 INR 1.0 APTT 39 H Puncture Site pCO2 pO2 HCO3 ABG pH ABG Total CO2 ABG O2 Saturation ABG Base Excess ABG Hemoglobin ABG Carboxyhemoglobin POC ABG HHb (Measured) ABG Methemoglobin Esvin Test ABG Potassium VBG pH VBG pCO2 VBG HCO3 VBG Total CO2 VBG O2 Sat (Calc) VBG Base Excess VBG Potassium A-a O2 Difference Respiratory Index Hgb O2 Saturation Glucose Lactate Vent Mode Mechanical Rate FiO2 Tidal Volume PEEP Inspiratory BiPAP Expiratory BiPAP Crit Value Called To Crit Value Called By Crit Value Read Back Blood Gas Notified Time Sodium Potassium Chloride Carbon Dioxide Anion Gap BUN Creatinine Est GFR ( Amer) Est GFR (Non-Af Amer) POC Glucose (mg/dL) 131 H Random Glucose Hemoglobin A1c Calcium Phosphorus Magnesium Total Bilirubin AST ALT Alkaline Phosphatase Total Creatine Kinase Troponin I Total Protein Albumin Globulin Albumin/Globulin Ratio Triglycerides Cholesterol LDL Cholesterol Direct HDL Cholesterol Arterial Blood Potassium Venous Blood Potassium Urine Color Urine Clarity Urine pH Ur Specific [place] Urine Protein Urine Glucose (UA) Urine Ketones Urine Blood Urine Nitrate Urine Bilirubin Urine Urobilinogen Ur Leukocyte Esterase Urine WBC (Auto) Urine RBC (Auto) Urine WBC Clumps (Auto) Amorphous Sediment Urine Bacteria Blood Type Antibody Screen Antibody Identification 03/19/18 03/19/18 03/19/18 14:18 14:18 14:20 WBC RBC Hgb Hct MCV MCH MCHC RDW Plt Count MPV Neut % (Auto) Lymph % (Auto) [place] % (Auto) Eos % (Auto) Baso % (Auto) Neut # (Auto) Lymph # (Auto) [place] # (Auto) Eos # (Auto) Baso # (Auto) Neutrophils % (Manual) Band Neutrophils % Lymphocytes % (Manual) Monocytes % (Manual) Eosinophils % (Manual) Basophils % (Manual) Myelocytes % Nucleated RBC % Platelet Estimate Basophilic Stippling Anisocytosis (manual) Macrocytosis (manual) PT INR APTT Puncture Site pCO2 pO2 78 H HCO3 ABG pH ABG Total CO2 ABG O2 Saturation ABG Base Excess ABG Hemoglobin ABG Carboxyhemoglobin POC ABG HHb (Measured) ABG Methemoglobin Esvin Test ABG Potassium VBG pH 7.11 L* VBG pCO2 108 H* VBG HCO3 25.7 VBG Total CO2 37.6 H VBG O2 Sat (Calc) 96.9 H VBG Base Excess 1.3 VBG Potassium 4.1 A-a O2 Difference Respiratory Index Hgb O2 Saturation Glucose 127 H Lactate 0.6 L Vent Mode Mechanical Rate FiO2 21.0 Tidal Volume PEEP Inspiratory BiPAP Expiratory BiPAP Crit Value Called To Er physician Crit Value Called By Mahendra Crit Value Read Back Y Blood Gas Notified Time 1425 Sodium 141 138.0 Potassium 4.3 Chloride 98 102.0 Carbon Dioxide 32 H Anion Gap 14 BUN 31 H Creatinine 5.6 H Est GFR ( Amer) 12 Est GFR (Non-Af Amer) 10 POC Glucose (mg/dL) Random Glucose 130 H Hemoglobin A1c 4.0 L Calcium 9.0 Phosphorus 4.4 Magnesium 2.6 H Total Bilirubin 0.7 AST 17 ALT 35 Alkaline Phosphatase 90 Total Creatine Kinase 26 L Troponin I < 0.0120 Total Protein 6.1 L Albumin 3.3 L Globulin 2.8 Albumin/Globulin Ratio 1.2 Triglycerides 136 D Cholesterol 101 LDL Cholesterol Direct < 30 HDL Cholesterol 46 Arterial Blood Potassium Venous Blood Potassium 4.1 Urine Color Urine Clarity Urine pH Ur Specific [place] Urine Protein Urine Glucose (UA) Urine Ketones Urine Blood Urine Nitrate Urine Bilirubin Urine Urobilinogen Ur Leukocyte Esterase Urine WBC (Auto) Urine RBC (Auto) Urine WBC Clumps (Auto) Amorphous Sediment Urine Bacteria Blood Type Antibody Screen Antibody Identification 03/19/18 03/19/18 03/19/18 14:50 15:45 17:05 WBC RBC Hgb Hct MCV MCH MCHC RDW Plt Count MPV Neut % (Auto) Lymph % (Auto) [place] % (Auto) Eos % (Auto) Baso % (Auto) Neut # (Auto) Lymph # (Auto) [place] # (Auto) Eos # (Auto) Baso # (Auto) Neutrophils % (Manual) Band Neutrophils % Lymphocytes % (Manual) Monocytes % (Manual) Eosinophils % (Manual) Basophils % (Manual) Myelocytes % Nucleated RBC % Platelet Estimate Basophilic Stippling Anisocytosis (manual) Macrocytosis (manual) PT INR APTT Puncture Site Rba pCO2 102 H* pO2 56 L HCO3 25.5 ABG pH 7.13 L* ABG Total CO2 37.0 H ABG O2 Saturation 91.6 L ABG Base Excess 1.4 ABG Hemoglobin ABG Carboxyhemoglobin POC ABG HHb (Measured) ABG Methemoglobin Esvin Test Na ABG Potassium 3.9 VBG pH VBG pCO2 VBG HCO3 VBG Total CO2 VBG O2 Sat (Calc) VBG Base Excess VBG Potassium A-a O2 Difference 102.0 Respiratory Index 1.8 Hgb O2 Saturation Glucose 107 Lactate 0.5 L Vent Mode Mechanical Rate FiO2 40.0 Tidal Volume PEEP Inspiratory BiPAP 16 Expiratory BiPAP 8 Crit Value Called To Jett carbone Crit Value Called By Navneet Crit Value Read Back Y Blood Gas Notified Time 1708 Sodium 139.0 Potassium Chloride 104.0 Carbon Dioxide Anion Gap BUN Creatinine Est GFR ( Amer) Est GFR (Non-Af Amer) POC Glucose (mg/dL) Random Glucose Hemoglobin A1c Calcium Phosphorus Magnesium Total Bilirubin AST ALT Alkaline Phosphatase Total Creatine Kinase Troponin I Total Protein Albumin Globulin Albumin/Globulin Ratio Triglycerides Cholesterol LDL Cholesterol Direct HDL Cholesterol Arterial Blood Potassium 3.9 Venous Blood Potassium Urine Color Brown Urine Clarity Turbid Urine pH 6.0 Ur Specific [place] 1.023 Urine Protein 2+ H Urine Glucose (UA) Normal Urine Ketones Trace Urine Blood 3+ H Urine Nitrate Negative Urine Bilirubin Negative Urine Urobilinogen Normal Ur Leukocyte Esterase 3+ H Urine WBC (Auto) 40588 H Urine RBC (Auto) 2075 H Urine WBC Clumps (Auto) Many H Amorphous Sediment Moderate H Urine Bacteria Mod H Blood Type B POSITIVE Antibody Screen Positive Antibody Identification Non Specific Cold Antibody 03/19/18 19:03 WBC RBC Hgb Hct MCV MCH MCHC RDW Plt Count MPV Neut % (Auto) Lymph % (Auto) [place] % (Auto) Eos % (Auto) Baso % (Auto) Neut # (Auto) Lymph # (Auto) [place] # (Auto) Eos # (Auto) Baso # (Auto) Neutrophils % (Manual) Band Neutrophils % Lymphocytes % (Manual) Monocytes % (Manual) Eosinophils % (Manual) Basophils % (Manual) Myelocytes % Nucleated RBC % Platelet Estimate Basophilic Stippling Anisocytosis (manual) Macrocytosis (manual) PT INR APTT Puncture Site Rba pCO2 52 H pO2 287 H HCO3 29.8 H ABG pH 7.40 ABG Total CO2 33.8 H ABG O2 Saturation 99.8 H ABG Base Excess 6.3 H ABG Hemoglobin 10.7 L ABG Carboxyhemoglobin 2.3 H POC ABG HHb (Measured) 0.2 ABG Methemoglobin 1.1 Esvin Test Na ABG Potassium VBG pH VBG pCO2 VBG HCO3 VBG Total CO2 VBG O2 Sat (Calc) VBG Base Excess VBG Potassium A-a O2 Difference 361.0 Respiratory Index 1.3 Hgb O2 Saturation 96.3 Glucose Lactate Vent Mode Prvc Mechanical Rate 18 FiO2 100.0 Tidal Volume 500 PEEP 5 Inspiratory BiPAP Expiratory BiPAP Crit Value Called To Crit Value Called By Crit Value Read Back Blood Gas Notified Time Sodium Potassium Chloride Carbon Dioxide Anion Gap BUN Creatinine Est GFR ( Amer) Est GFR (Non-Af Amer) POC Glucose (mg/dL) Random Glucose Hemoglobin A1c Calcium Phosphorus Magnesium Total Bilirubin AST ALT Alkaline Phosphatase Total Creatine Kinase Troponin I Total Protein Albumin Globulin Albumin/Globulin Ratio Triglycerides Cholesterol LDL Cholesterol Direct HDL Cholesterol Arterial Blood Potassium Venous Blood Potassium Urine Color Urine Clarity Urine pH Ur Specific [place] Urine Protein Urine Glucose (UA) Urine Ketones Urine Blood Urine Nitrate Urine Bilirubin Urine Urobilinogen Ur Leukocyte Esterase Urine WBC (Auto) Urine RBC (Auto) Urine WBC Clumps (Auto) Amorphous Sediment Urine Bacteria Blood Type Antibody Screen Antibody Identification
[2018-03-19] MEDS ORDERED: Albumin Human 25% (12.5 gm/50 ml) IV ONE ×2 (20:45→21:00)
[2018-03-19] MEDS: EPOETIN ALFA 4,000 UNIT/ML ML Dialysis IV SCH (20:51)
[2018-03-19] MEDS: Paricalcitol 2 mcg/ml Inj IV SCH (20:52)
[2018-03-19] MEDS: Aztreonam 1 GM in Sodium Chloride 0.9% 100 ML IVPB SCH (23:00)
--- NOTE | 2018-03-20 05:20 | HP ---
Copied To: Carlos Andrews DO Attending MD: Carlos Andrews DO HISTORY OF PRESENT ILLNESS: I was called by the [facility] today. I know Conor very well. He was very lethargic. They would not do dialysis because his blood pressure was 90. He was in and out of mentally. He was arousable. He was talking quite slowly when I saw him in the emergency room at [facility] after sending him there. This was not his basic mentation. He is little bit looks septic to me, and he had respiratory distress at the same time. He did not get his dialysis because of his low blood pressure. He has a past medical history of extensive CAD; diabetes; end-stage renal disease, on hemodialysis; CVA, status post pacemaker; altered mental status. He was just in the hospital for sepsis and left on 03/15/2018, I believe. He was doing well for about a week, and now he is back. Possible code stroke was called here in the ER. He has altered mental status. He has sepsis; anemia; asthma; CHF; COPD; CVA, affecting his left side; depression; hypertension; high cholesterol; peripheral edema; end-stage renal disease, on hemodialysis; chronic kidney disease; sleep apnea. He had a CABG. He had endoscopy. He had a pacemaker. He had a recent cardiac cauterization about two weeks ago. He was on the ventilator before. He has had dialysis, arteriovenostomy. He had excisions of duodenum. He has had multiple procedures and grafts, pacemaker insertion. He was on ventilator few times. No alcohol. No substance abuse. No smoking. When I saw him in the emergency room, he was short of breath. No chest pain. Very difficult to make a sentence and to answer questions. He was definitely in distress mentally and respiratory. PHYSICAL EXAMINATION: VITAL SIGNS: He has 95.8 temp, 80 pulse, 14 respiratory rate, 111/20 blood pressure, 98% O2 sat. GENERAL: He is in distress. SKIN: Warm and dry. Poor turgor. HEENT: Head is atraumatic, normocephalic. Extraocular muscles are intact. Pupils equal and reactive to light. Throat is moist. NECK: Supple. CHEST: Pacemaker in the chest wall. HEART: Regular rate. LUNGS: Decreased breath sounds. Diminished breath sounds. Poor inspiration. ABDOMEN: Obese, soft, nontender. Positive bowel sounds. No guarding. No rebound. No CVA tenderness. EXTREMITIES: Left AV fistula in the left arm. He has some edema in both lower extremities. He is very week, difficult to move his extremities. LABORATORY DATA: He had multiple tests done. He has 8.8 white count, 10.9 hemoglobin, 35.2 hematocrit with 108 platelets. INR is 1. He has a lactate of 0.6. Sugar is 127. PCO2 is 102, quite high. Has 141 sodium, potassium 4.3, BUN 31, creatinine 5.6. He is on dialysis. GFR is 10. Sugar is 130, calcium is 9, phosphorus is 4.4, magnesium is 2.6. Total bili is 0.7, AST is 17, ALT is 35, alk phos is 90, troponin I is less than 0.012, total protein 6.1. Cholesterol is 101. Urine with many white counts, many bacteria. ASSESSMENT AND PLAN: I did think he had a urinary tract infection when I first saw him. He was seen by the emergency room doctor and the store stocker, Dr. Frausto. He is currently on aspirin, aztreonam, Diprivan, Procrit, pantoprazole, vancomycin, Zemplar. He was given Rocephin in the unit. He was also on Diprivan and succinylcholine. He was intubated. He has acute respiratory failure and end-stage renal disease. He looks septic with altered mental status and urinary tract infection. We will continue aggressive treatment and care. Carlos Andrews DO MTDD
[2018-03-20 05:49] LABS: ABG ALLEN TEST POS; ARTERIAL BLOOD GAS HEMOGLOBIN 9.6 g/dL (11.7-17.4); ARTERIAL BLOOD GAS PCO2 42 mm/Hg (35-45); ARTERIAL BLOOD GAS PH 7.44 (7.35-7.45); ARTERIAL BLOOD GAS PO2 128 mm/Hg (80-100); ARTERIAL BLOOD GAS TCO2 29.8 mmol/L (22-28)
[2018-03-20 07:06] LABS: BASO # 0.1 K/uL (0.0-0.2); BASO % 0.7 % (0.0-2.0); EOS # 0.6 K/uL (0.0-0.7); EOS % 8.2 % (0.0-4.0); LYMPH # 0.6 K/uL (1.0-4.3); LYMPH % 8.2 % (20.0-40.0); MEAN CELL VOLUME 104.4 fL (80.0-94.0); MEAN CORPUSCULAR HGB CONC 31.7 g/dL (33.0-37.0); MEAN PLATELET VOLUME 8.8 fL (7.2-11.7); MONO # 0.4 K/uL (0.0-0.8); MONO % 5.6 % (0.0-10.0); NEUT # 5.9 K/uL (1.8-7.0); NEUT % 77.3 % (50.0-75.0); NRBC % 2.3 % (0.0-2.0); PLATELET COUNT 90 K/uL (130-400); RBC 3.03 Mil/uL (4.40-5.90); RED CELL DISTRIBUTION WIDTH 18.7 % (11.5-14.5); WHITE BLOOD COUNT 7.6 K/uL (4.8-10.8)
[2018-03-20 07:56] LABS: ALB/GLOB RATIO 1.3 (1.0-2.1); ALBUMIN 3.1 g/dL (3.5-5.0)
[2018-03-20] MEDS ORDERED: Potassium Phosphate 15 MMOLE in Sodium Chloride 0.9% 250 ML IVPB ONE (08:00)
[2018-03-20 08:53] LABS: ANISOCYTOSIS MODERATE; BANDS 1 % (0-2); EOSINOPHIL 8 % (0-4); LYMPHOCYTE 8 % (20-40); MONOCYTE 3 % (0-10); NEUTROPHIL 80 % (50-75); NUCLEATED RED BLOOD CELL 4 % (0-0); PLATELET ESTIMATE DECREASED (NORMAL); TOTAL CELLS COUNTED 100
--- NOTE | 2018-03-20 09:29 | RAD ---
Date of service: 03/20/2018 HISTORY: CHF COMPARISON: Portable chest 03/19/2018, 6:13 p.m.. FINDINGS: LUNGS: Endotracheal tube is not significantly changed in position terminating at the level of clavicles in the plane of the trachea. Right center venous line and nasogastric tube are also unchanged in position. Event recorder again seen overlying the plane of the heart at the left chest. Left hemidiaphragm remains silhouetted suggesting potential airspace disease, no significant interval change. Borderline airspace disease right base. PLEURA: Left greater right pleural effusions are stable. No pneumothorax bilaterally. CARDIOVASCULAR: Cardiac silhouette appears stable in size. Borderline pulmonary vascular congestion nevertheless. OSSEOUS STRUCTURES: No significant abnormalities. VISUALIZED UPPER ABDOMEN: Normal. OTHER FINDINGS: None. IMPRESSION: No significant interval change in potential bibasilar airspace disease and mild bilateral pleural effusions, left greater than right. Borderline pulmonary vascular congestion.
--- NOTE | 2018-03-20 09:33 | CON ---
Copied To: Martin Ortiz MD Attending MD: Martin Ortiz MD DATE: 03/19/2018 RENAL CONSULTATION LOCATION: The patient is located in ICU bed 16. REQUESTED BY: Carlos Andrews DO REASON FOR CONSULTATION: End-stage renal disease, respiratory failure and missed hemodialysis, for continuation of hemodialysis and for further evaluation. HISTORY OF PRESENT ILLNESS: Mr. Gonzales is a 67-year-old obese elderly Maldivian male with a past medical history significant for longstanding hypertension, diabetes, hyperlipidemia, COPD, asthma, end-stage renal disease, on hemodialysis three times a week on Sunday, and Sunday, coronary artery disease, status post CABG and CVA with left-sided weakness who went [facility] this morning, and the patient was drowsy and blood pressure about systolic 95 to 100. Hemodialysis was initially started. After less than half an hour, the patient was very lethargic and blood pressure systolic about 70, not responding to IV fluids, and the patient was suspected CO2 narcosis and advised the nurse to send the patient back to the medical floor [facility] for possible BiPAP placement and noted by PMD. The patient was sent from the [facility] to [facility] Emergency Room for further evaluation. The patient was found to have severe CO2 retention and very drowsy and not responding to BiPAP machine. After transferring to the ICU, the patient was intubated for respiratory failure and CO2 retention. The patient is on ventilator under sedation, tried to open eyes and tried to follow commands. No history of fever. No history of cough. The patient was noncompliant with BiPAP machine in the [facility]. The patient was denying any chest pain or any fever. PAST MEDICAL HISTORY: Significant for longstanding hypertension, diabetes, end-stage renal disease, COPD, CHF, CVA with left-sided weakness, CAD, CABG. PAST SURGICAL HISTORY: Status post CABG, status post left upper extremity AV graft and status post pacemaker placement. ALLERGIES: ALLERGY TO IODINE, PLAVIX, PENICILLIN, AND IV DYE. SOCIAL HISTORY: No smoking. No alcohol. No drugs. The patient is a [facility]. FAMILY HISTORY: No children. He has a very supportive niece and also brothers and sisters. The patient is not in distress, on ventilator. REVIEW OF SYSTEMS: Significant for lethargy and hypotension. All other reviews of systems are reviewed and are negative. CURRENT MEDICATIONS: Include as follows: Aspirin 81 mg daily, Azactam 1 g every 24 hours, Diprivan IV drip, Epogen 4000 units three times a week, Protonix 40 mg IV daily and Zemplar 2 mcg three times a week on Sunday, and Sunday. PHYSICAL EXAMINATION: VITAL SIGNS: As follows: Prior to the initiation of dialysis blood pressure 118/59, pulse 79, respirations about 19, temperature is 98.6. Height 5 feet 5 inches, and weight is 180 pounds. GENERAL: Mr. Gonzales is a 67-year-old elderly male, on ventilator, not in distress, under sedation. HEENT: Pupils are normal and reactive to light and accommodation. Conjunctivae pink. Sclerae anicteric. Tongue is moist and trachea is midline. No thyroid enlargement. LUNGS: Symmetric on both sides. Bilateral breath sounds present. Occasional basal crackles present on the right side. CARDIOVASCULAR SYSTEM: Crum at the fifth intercostal space, midclavicular line. S1, S2 audible. No murmur or gallop. The patient has a midsternal scar present from the previous CABG and also pacemaker on the right side. ABDOMEN: Normal in appearance. Soft, tympanitic. No guarding. No rigidity. No hepatosplenomegaly. CENTRAL NERVOUS SYSTEM: The patient is on ventilator, under sedation. EXTREMITIES: No cyanosis. No clubbing. The patient has 1 to 2+ edema in both lower extremities. LABORATORY DATA: Include as follows as of 03/19/2018: WBC 8.8, hemoglobin 10.9, hematocrit is 35.2, platelets 108 and neutrophils 81, bands 3, lymphs 6, monos 6, eosinophils 2. VBG on admission, pH of 7.11, pCO2 of 108, bicarb is 25.7, and saturation 96.9. Sodium is 141, potassium 4.3, chloride 98, CO2 of 32, BUN 31, creatinine 5.6, glucose 130, calcium is 9. Hemoglobin A1c is 4. Phosphorus is 4.4 and magnesium is 2.6. Total bili 0.6, AST 17, ALT 35, alkaline phosphatase 90. CPK 26, troponin 0.012. Total protein 6.1, albumin is 3.3. Urinalysis: Brown, turbid, pH of 6, specific gravity 1.023, protein 2+, glucose normal, ketones trace, blood 3+, nitrites negative, bilirubin negative, urobilinogen normal, leukocyte esterase 3+, wbc's 10,831, rbc's 2073, wbc clumps many, bacteria moderate. His repeat ABG, pH of 7.4, pCO2 of 52, pO2 of 287, bicarb is 29.8, saturation 99.8, ventilating AC 18, FiO2 of 100%, PEEP of 5 and tidal volume 500. Other reports: Chest x-ray as of 03/19/2018: Impression: Congestive heart failure with interval increase in right pleural effusion two third to three fourth of the right hemithorax, extensive compressive atelectasis . ASSESSMENT AND PLAN: In summary, Mr. Gonzales is a 67-year-old male with a history of hypertension, diabetes, end-stage renal disease, coronary artery disease, status post coronary artery bypass graft, cerebrovascular accident with left-sided weakness who was admitted with hypotension in the dialysis and very lethargic and not responding to intravenous fluids bolus 200 mL and subsequently sent for bilevel positive airway pressure. The patient was sent from there to the [facility] Emergency Room. The patient was found to have two third pleural effusion on the right side and compressed atelectasis, bilateral pleural effusion. Not responding to bilevel positive airway pressure, and the patient was intubated by Dr. Joey Frausto. 1. End-stage renal disease. Continue hemodialysis three times a week on Sunday, and Sunday. 2. Acute respiratory failure. 3. Massive right pleural effusion. 4. Coronary artery disease, asymptomatic. PLAN: We will try to dialyze this evening and try to ultrafiltrate 1 to 1.5 liters as recommended by his lubrication equipment servicer. Continue IV antibiotics as per ID recommendations and ICU recommendations. Check blood culture, urine culture. Overall prognosis is guarded. Consider thoracentesis. Continue vent support and discuss with the patient's niece and sister and also obtain telephone consent for hemodialysis from the patient's [id number] by phone. We will follow with you. Thank you for allowing me to participate in your patient's care. Martin Ortiz MD [facility] # [id number]
--- NOTE | 2018-03-20 12:32 | CP.CCUPN ---
<Yamilet Casas - Last Filed: 03/20/18 13:24> CCU Subjective - Physician Review Subjective (Free Text): ICU Progress note Patient seen and examined at bedside. Patient intubated and unable to provide history. Sedated on Propofol. 03/20/18 13:24 CCU Objective - Vital Signs / Intake & Output Intake and Output (Last 8hrs): Intake & Output 03/19/18 03/20/18 03/20/18 22:59 06:59 14:59 Intake Total 169.6 196.7 Output Total 0 0 Balance 169.6 196.7 Weight 180 lb 5.41 oz 179 lb 14.355 oz Intake: Intake, IV Amount 169.6 36.7 Right Forearm 160 0 Right Proximal Port 9.6 36.7 Internal Jugular Oral 0 0 Tube Feeding 160 Output: Stool 0 0 Emesis 0 Other: # Bowel Movements 0 1 - Physical Exam Head: Positive for: Atraumatic, Normocephalic Pupils: Positive for: PERRL Extroacular Muscles: Positive for: EOMI Mouth: Positive for: Moist Mucous Membranes, Other (OGT and ETT in place) Neck: Positive for: Other (Right IJ TLC) Respiratory/Chest: Positive for: Decreased Breath Sounds Cardiovascular: Positive for: Other (Paced at 80) Abdomen: Positive for: Normal Bowel Sounds. Negative for: Tenderness Upper Extremity: Positive for: Other (AV fistula left upper extremity, bruit auscultated. Radial pulses present bilaterally. ) Lower Extremity: Positive for: NORMAL PULSES (2+ Dorsalis pedis pulses present bilaterally), Capillary Refill < 2 s. Negative for: CALF TENDERNESS Skin: Positive for: Warm, Dry Psychiatric: Positive for: Other (Sedated on Propofol) - Medications Active Medications: Active Medications Generic Name Dose Route Start Last Admin Trade Name Freq PRN Reason Stop Dose Admin Acetaminophen 650 mg 03/20/18 10:28 03/20/18 10:30 Tylenol 650 Mg Supp ME 650 mg Q6 PRN Administration Fever >100.4 F Aspirin 81 mg 03/20/18 10:00 03/20/18 11:21 Aspirin Chewable PO 81 mg DAILY BELL Administration Epoetin Mario 4,000 unit 03/19/18 18:00 03/19/18 20:51 Procrit IV 4,000 unit TTS BELL Administration Heparin Sodium (Porcine) 5,000 units 03/20/18 22:00 Heparin SC Q12 BELL Aztreonam 1 gm/ Sodium 100 mls @ 100 mls/hr 03/19/18 18:30 03/19/18 23:00 Chloride IVPB 100 mls/hr Q24H BELL Administration Protocol Potassium Phosphate 15 mmole/ 255 mls @ 42.5 mls/hr 03/20/18 08:00 03/20/18 08:20 Sodium Chloride IVPB 03/20/18 13:59 42.5 mls/hr ONCE ONE Administration Tigecycline 50 mg/ Sodium 100 mls @ 100 mls/hr 03/20/18 23:00 Chloride IVPB Q12H BELL Protocol Dexmedetomidine HCl 200 mcg/ 50 mls @ 4.08 mls/hr 03/20/18 11:06 Sodium Chloride IV TITR PRN Agitation Protocol 0.2 MCG/KG/HR Pantoprazole Sodium 40 mg 03/20/18 10:00 03/20/18 11:21 Protonix Inj IVP 40 mg DAILY BELL Administration Paricalcitol 2 mcg 03/19/18 18:00 03/19/18 20:52 Zemplar IV 2 mcg TTS BELL Administration - Patient Studies Lab Studies: Lab Studies 03/20/18 03/20/18 03/20/18 Range/Units 06:54 06:54 05:27 WBC 7.6 (4.8-10.8) K/uL RBC 3.03 L (4.40-5.90) Mil/uL Hgb 10.0 L (12.0-18.0) g/dL Hct 31.6 L (35.0-51.0) % MCV 104.4 H (80.0-94.0) fL MCH 33.0 H (27.0-31.0) pg MCHC 31.7 L (33.0-37.0) g/dL RDW 18.7 H (11.5-14.5) % Plt Count 90 L (130-400) K/uL MPV 8.8 (7.2-11.7) fL Neut % (Auto) 77.3 H (50.0-75.0) % Lymph % (Auto) 8.2 L (20.0-40.0) % [place] % (Auto) 5.6 (0.0-10.0) % Eos % (Auto) 8.2 H (0.0-4.0) % Baso % (Auto) 0.7 (0.0-2.0) % Neut # (Auto) 5.9 (1.8-7.0) K/uL Lymph # (Auto) 0.6 L (1.0-4.3) K/uL [place] # (Auto) 0.4 (0.0-0.8) K/uL Eos # (Auto) 0.6 (0.0-0.7) K/uL Baso # (Auto) 0.1 (0.0-0.2) K/uL Neutrophils % (Manual) 80 H (50-75) % Band Neutrophils % 1 (0-2) % Lymphocytes % (Manual) 8 L (20-40) % Monocytes % (Manual) 3 (0-10) % Eosinophils % (Manual) 8 H (0-4) % Basophils % (Manual) (0-2) % Myelocytes % (0-0) % Nucleated RBC % 4 H (0-0) % Platelet Estimate Decreased L (NORMAL) Basophilic Stippling Slight Anisocytosis (manual) Moderate Macrocytosis (manual) Moderate PT (9.7-12.2) SECONDS INR APTT (21-34) SECONDS Puncture Site Rr pCO2 42 (35-45) mm/Hg pO2 128 H (30-55) mm/Hg HCO3 28.0 (21-28) mmol/L ABG pH 7.44 (7.35-7.45) ABG Total CO2 29.8 H (22-28) mmol/L ABG O2 Saturation 99.0 H (95-98) % ABG Base Excess 3.9 H (-2.0-3.0) mmol/L ABG Hemoglobin 9.6 L (11.7-17.4) g/dL ABG Carboxyhemoglobin 1.8 H (0.5-1.5) % POC ABG HHb (Measured) 1.0 (0.0-5.0) % ABG Methemoglobin 1.4 (0.0-3.0) % Esvin Test Pos ABG Potassium (3.6-5.2) mmol/L VBG pH (7.32-7.43) VBG pCO2 (40-60) mmHg VBG HCO3 mmol/L VBG Total CO2 (22-28) mmol/L VBG O2 Sat (Calc) (40-65) % VBG Base Excess (0.0-2.0) mmol/L VBG Potassium (3.6-5.2) mmol/L A-a O2 Difference 176.0 mm/Hg Respiratory Index 1.4 Hgb O2 Saturation 95.7 (95.0-98.0) % Glucose (75-110) mg/dl Lactate (0.7-2.1) mmol/L Vent Mode Prvc Mechanical Rate 18 FiO2 50.0 % Tidal Volume 500 PEEP 5 Inspiratory BiPAP Expiratory BiPAP Crit Value Called To Crit Value Called By Crit Value Read Back Blood Gas Notified Time Sodium 142 (132-148) mmol/L Potassium 3.0 L (3.6-5.2) mmol/L Chloride 103 (98-107) mmol/L Carbon Dioxide 30 (22-30) mmol/L Anion Gap 12 (10-20) BUN 17 (9-20) mg/dL Creatinine 3.1 H (0.8-1.5) mg/dL Est GFR ( Amer) 25 Est GFR (Non-Af Amer) 20 POC Glucose (mg/dL) (65-110) mg/dL Random Glucose 86 (75-110) mg/dL Hemoglobin A1c (4.2-6.5) % Calcium 9.0 (8.6-10.4) mg/dl Phosphorus 0.8 L* (2.5-4.5) mg/dL Magnesium 2.2 (1.6-2.3) mg/dL Total Bilirubin 0.8 (0.2-1.3) mg/dL AST 21 (17-59) U/L ALT 31 (21-72) U/L Alkaline Phosphatase 91 (38-126) U/L Total Creatine Kinase (55-170) U/L Troponin I (0.00-0.120) ng/mL Total Protein 5.5 L (6.3-8.3) g/dL Albumin 3.1 L (3.5-5.0) g/dL Globulin 2.4 (2.2-3.9) gm/dL Albumin/Globulin Ratio 1.3 (1.0-2.1) Triglycerides (0-149) mg/dL Cholesterol (0-199) mg/dL LDL Cholesterol Direct (0-129) mg/dL HDL Cholesterol (30-70) mg/dL Arterial Blood Potassium (3.6-5.2) mmol/L Venous Blood Potassium (3.6-5.2) mmol/L Urine Color (YELLOW) Urine Clarity (Clear) Urine pH (5.0-8.0) Ur Specific [place] (1.003-1.030) Urine Protein (NEGATIVE) mg/dL Urine Glucose (UA) (Normal) mg/dL Urine Ketones (NEGATIVE) mg/dL Urine Blood (NEGATIVE) Urine Nitrate (NEGATIVE) Urine Bilirubin (NEGATIVE) Urine Urobilinogen (0.2-1.0) mg/dL Ur Leukocyte Esterase (Negative) Annita/uL Urine WBC (Auto) (0-5) /hpf Urine RBC (Auto) (0-3) /hpf Urine WBC Clumps (Auto) (NONE) /hpf Amorphous Sediment (<OCC) /ul Urine Bacteria (<OCC) Blood Type Antibody Screen Antibody Identification 03/19/18 03/19/18 03/19/18 Range/Units 23:55 21:15 21:14 WBC (4.8-10.8) K/uL RBC (4.40-5.90) Mil/uL Hgb (12.0-18.0) g/dL Hct (35.0-51.0) % MCV (80.0-94.0) fL MCH (27.0-31.0) pg MCHC (33.0-37.0) g/dL RDW (11.5-14.5) % Plt Count (130-400) K/uL MPV (7.2-11.7) fL Neut % (Auto) (50.0-75.0) % Lymph % (Auto) (20.0-40.0) % [place] % (Auto) (0.0-10.0) % Eos % (Auto) (0.0-4.0) % Baso % (Auto) (0.0-2.0) % Neut # (Auto) (1.8-7.0) K/uL Lymph # (Auto) (1.0-4.3) K/uL [place] # (Auto) (0.0-0.8) K/uL Eos # (Auto) (0.0-0.7) K/uL Baso # (Auto) (0.0-0.2) K/uL Neutrophils % (Manual) (50-75) % Band Neutrophils % (0-2) % Lymphocytes % (Manual) (20-40) % Monocytes % (Manual) (0-10) % Eosinophils % (Manual) (0-4) % Basophils % (Manual) (0-2) % Myelocytes % (0-0) % Nucleated RBC % (0-0) % Platelet Estimate (NORMAL) Basophilic Stippling Anisocytosis (manual) Macrocytosis (manual) PT (9.7-12.2) SECONDS INR APTT (21-34) SECONDS Puncture Site pCO2 (35-45) mm/Hg pO2 (30-55) mm/Hg HCO3 (21-28) mmol/L ABG pH (7.35-7.45) ABG Total CO2 (22-28) mmol/L ABG O2 Saturation (95-98) % ABG Base Excess (-2.0-3.0) mmol/L ABG Hemoglobin (11.7-17.4) g/dL ABG Carboxyhemoglobin (0.5-1.5) % POC ABG HHb (Measured) (0.0-5.0) % ABG Methemoglobin (0.0-3.0) % Esvin Test ABG Potassium (3.6-5.2) mmol/L VBG pH (7.32-7.43) VBG pCO2 (40-60) mmHg VBG HCO3 mmol/L VBG Total CO2 (22-28) mmol/L VBG O2 Sat (Calc) (40-65) % VBG Base Excess (0.0-2.0) mmol/L VBG Potassium (3.6-5.2) mmol/L A-a O2 Difference mm/Hg Respiratory Index Hgb O2 Saturation (95.0-98.0) % Glucose (75-110) mg/dl Lactate (0.7-2.1) mmol/L Vent Mode Mechanical Rate FiO2 % Tidal Volume PEEP Inspiratory BiPAP Expiratory BiPAP Crit Value Called To Crit Value Called By Crit Value Read Back Blood Gas Notified Time Sodium (132-148) mmol/L Potassium (3.6-5.2) mmol/L Chloride (98-107) mmol/L Carbon Dioxide (22-30) mmol/L Anion Gap (10-20) BUN (9-20) mg/dL Creatinine (0.8-1.5) mg/dL Est GFR ( Amer) Est GFR (Non-Af Amer) POC Glucose (mg/dL) 79 73 63 L (65-110) mg/dL Random Glucose (75-110) mg/dL Hemoglobin A1c (4.2-6.5) % Calcium (8.6-10.4) mg/dl Phosphorus (2.5-4.5) mg/dL Magnesium (1.6-2.3) mg/dL Total Bilirubin (0.2-1.3) mg/dL AST (17-59) U/L ALT (21-72) U/L Alkaline Phosphatase (38-126) U/L Total Creatine Kinase (55-170) U/L Troponin I (0.00-0.120) ng/mL Total Protein (6.3-8.3) g/dL Albumin (3.5-5.0) g/dL Globulin (2.2-3.9) gm/dL Albumin/Globulin Ratio (1.0-2.1) Triglycerides (0-149) mg/dL Cholesterol (0-199) mg/dL LDL Cholesterol Direct (0-129) mg/dL HDL Cholesterol (30-70) mg/dL Arterial Blood Potassium (3.6-5.2) mmol/L Venous Blood Potassium (3.6-5.2) mmol/L Urine Color (YELLOW) Urine Clarity (Clear) Urine pH (5.0-8.0) Ur Specific [place] (1.003-1.030) Urine Protein (NEGATIVE) mg/dL Urine Glucose (UA) (Normal) mg/dL Urine Ketones (NEGATIVE) mg/dL Urine Blood (NEGATIVE) Urine Nitrate (NEGATIVE) Urine Bilirubin (NEGATIVE) Urine Urobilinogen (0.2-1.0) mg/dL Ur Leukocyte Esterase (Negative) Annita/uL Urine WBC (Auto) (0-5) /hpf Urine RBC (Auto) (0-3) /hpf Urine WBC Clumps (Auto) (NONE) /hpf Amorphous Sediment (<OCC) /ul Urine Bacteria (<OCC) Blood Type Antibody Screen Antibody Identification 08/28/18 08/28/18 08/28/18 Range/Units 19:03 17:05 16:42 WBC (4.8-10.8) K/uL RBC (4.40-5.90) Mil/uL Hgb (12.0-18.0) g/dL Hct (35.0-51.0) % MCV (80.0-94.0) fL MCH (27.0-31.0) pg MCHC (33.0-37.0) g/dL RDW (11.5-14.5) % Plt Count (130-400) K/uL MPV (7.2-11.7) fL Neut % (Auto) (50.0-75.0) % Lymph % (Auto) (20.0-40.0) % [place] % (Auto) (0.0-10.0) % Eos % (Auto) (0.0-4.0) % Baso % (Auto) (0.0-2.0) % Neut # (Auto) (1.8-7.0) K/uL Lymph # (Auto) (1.0-4.3) K/uL [place] # (Auto) (0.0-0.8) K/uL Eos # (Auto) (0.0-0.7) K/uL Baso # (Auto) (0.0-0.2) K/uL Neutrophils % (Manual) (50-75) % Band Neutrophils % (0-2) % Lymphocytes % (Manual) (20-40) % Monocytes % (Manual) (0-10) % Eosinophils % (Manual) (0-4) % Basophils % (Manual) (0-2) % Myelocytes % (0-0) % Nucleated RBC % (0-0) % Platelet Estimate (NORMAL) Basophilic Stippling Anisocytosis (manual) Macrocytosis (manual) PT (9.7-12.2) SECONDS INR APTT (21-34) SECONDS Puncture Site Rba Rba pCO2 52 H 102 H* (35-45) mm/Hg pO2 287 H 56 L (30-55) mm/Hg HCO3 29.8 H 25.5 (21-28) mmol/L ABG pH 7.40 7.13 L* (7.35-7.45) ABG Total CO2 33.8 H 37.0 H (22-28) mmol/L ABG O2 Saturation 99.8 H 91.6 L (95-98) % ABG Base Excess 6.3 H 1.4 (-2.0-3.0) mmol/L ABG Hemoglobin 10.7 L (11.7-17.4) g/dL ABG Carboxyhemoglobin 2.3 H (0.5-1.5) % POC ABG HHb (Measured) 0.2 (0.0-5.0) % ABG Methemoglobin 1.1 (0.0-3.0) % Esvin Test Na Na ABG Potassium 3.9 (3.6-5.2) mmol/L VBG pH (7.32-7.43) VBG pCO2 (40-60) mmHg VBG HCO3 mmol/L VBG Total CO2 (22-28) mmol/L VBG O2 Sat (Calc) (40-65) % VBG Base Excess (0.0-2.0) mmol/L VBG Potassium (3.6-5.2) mmol/L A-a O2 Difference 361.0 102.0 mm/Hg Respiratory Index 1.3 1.8 Hgb O2 Saturation 96.3 (95.0-98.0) % Glucose 107 (75-110) mg/dl Lactate 0.5 L (0.7-2.1) mmol/L Vent Mode Prvc Mechanical Rate 18 FiO2 100.0 40.0 % Tidal Volume 500 PEEP 5 Inspiratory BiPAP 16 Expiratory BiPAP 8 Crit Value Called To Jett carbone Crit Value Called By Navneet Crit Value Read Back Y Blood Gas Notified Time 1708 Sodium 139.0 (132-148) mmol/L Potassium (3.6-5.2) mmol/L Chloride 104.0 (98-107) mmol/L Carbon Dioxide (22-30) mmol/L Anion Gap (10-20) BUN (9-20) mg/dL Creatinine (0.8-1.5) mg/dL Est GFR ( Amer) Est GFR (Non-Af Amer) POC Glucose (mg/dL) 123 H (65-110) mg/dL Random Glucose (75-110) mg/dL Hemoglobin A1c (4.2-6.5) % Calcium (8.6-10.4) mg/dl Phosphorus (2.5-4.5) mg/dL Magnesium (1.6-2.3) mg/dL Total Bilirubin (0.2-1.3) mg/dL AST (17-59) U/L ALT (21-72) U/L Alkaline Phosphatase (38-126) U/L Total Creatine Kinase (55-170) U/L Troponin I (0.00-0.120) ng/mL Total Protein (6.3-8.3) g/dL Albumin (3.5-5.0) g/dL Globulin (2.2-3.9) gm/dL Albumin/Globulin Ratio (1.0-2.1) Triglycerides (0-149) mg/dL Cholesterol (0-199) mg/dL LDL Cholesterol Direct (0-129) mg/dL HDL Cholesterol (30-70) mg/dL Arterial Blood Potassium 3.9 (3.6-5.2) mmol/L Venous Blood Potassium (3.6-5.2) mmol/L Urine Color (YELLOW) Urine Clarity (Clear) Urine pH (5.0-8.0) Ur Specific [place] (1.003-1.030) Urine Protein (NEGATIVE) mg/dL Urine Glucose (UA) (Normal) mg/dL Urine Ketones (NEGATIVE) mg/dL Urine Blood (NEGATIVE) Urine Nitrate (NEGATIVE) Urine Bilirubin (NEGATIVE) Urine Urobilinogen (0.2-1.0) mg/dL Ur Leukocyte Esterase (Negative) Annita/uL Urine WBC (Auto) (0-5) /hpf Urine RBC (Auto) (0-3) /hpf Urine WBC Clumps (Auto) (NONE) /hpf Amorphous Sediment (<OCC) /ul Urine Bacteria (<OCC) Blood Type Antibody Screen Antibody Identification 03/19/18 03/19/18 03/19/18 Range/Units 15:45 14:50 14:20 WBC (4.8-10.8) K/uL RBC (4.40-5.90) Mil/uL Hgb (12.0-18.0) g/dL Hct (35.0-51.0) % MCV (80.0-94.0) fL MCH (27.0-31.0) pg MCHC (33.0-37.0) g/dL RDW (11.5-14.5) % Plt Count (130-400) K/uL MPV (7.2-11.7) fL Neut % (Auto) (50.0-75.0) % Lymph % (Auto) (20.0-40.0) % [place] % (Auto) (0.0-10.0) % Eos % (Auto) (0.0-4.0) % Baso % (Auto) (0.0-2.0) % Neut # (Auto) (1.8-7.0) K/uL Lymph # (Auto) (1.0-4.3) K/uL [place] # (Auto) (0.0-0.8) K/uL Eos # (Auto) (0.0-0.7) K/uL Baso # (Auto) (0.0-0.2) K/uL Neutrophils % (Manual) (50-75) % Band Neutrophils % (0-2) % Lymphocytes % (Manual) (20-40) % Monocytes % (Manual) (0-10) % Eosinophils % (Manual) (0-4) % Basophils % (Manual) (0-2) % Myelocytes % (0-0) % Nucleated RBC % (0-0) % Platelet Estimate (NORMAL) Basophilic Stippling Anisocytosis (manual) Macrocytosis (manual) PT (9.7-12.2) SECONDS INR APTT (21-34) SECONDS Puncture Site pCO2 (35-45) mm/Hg pO2 78 H (30-55) mm/Hg HCO3 (21-28) mmol/L ABG pH (7.35-7.45) ABG Total CO2 (22-28) mmol/L ABG O2 Saturation (95-98) % ABG Base Excess (-2.0-3.0) mmol/L ABG Hemoglobin (11.7-17.4) g/dL ABG Carboxyhemoglobin (0.5-1.5) % POC ABG HHb (Measured) (0.0-5.0) % ABG Methemoglobin (0.0-3.0) % Esvin Test ABG Potassium (3.6-5.2) mmol/L VBG pH 7.11 L* (7.32-7.43) VBG pCO2 108 H* (40-60) mmHg VBG HCO3 25.7 mmol/L VBG Total CO2 37.6 H (22-28) mmol/L VBG O2 Sat (Calc) 96.9 H (40-65) % VBG Base Excess 1.3 (0.0-2.0) mmol/L VBG Potassium 4.1 (3.6-5.2) mmol/L A-a O2 Difference mm/Hg Respiratory Index Hgb O2 Saturation (95.0-98.0) % Glucose 127 H (75-110) mg/dl Lactate 0.6 L (0.7-2.1) mmol/L Vent Mode Mechanical Rate FiO2 21.0 % Tidal Volume PEEP Inspiratory BiPAP Expiratory BiPAP Crit Value Called To Er physician Crit Value Called By Mahendra Crit Value Read Back Y Blood Gas Notified Time 1425 Sodium 138.0 (132-148) mmol/L Potassium (3.6-5.2) mmol/L Chloride 102.0 (98-107) mmol/L Carbon Dioxide (22-30) mmol/L Anion Gap (10-20) BUN (9-20) mg/dL Creatinine (0.8-1.5) mg/dL Est GFR ( Amer) Est GFR (Non-Af Amer) POC Glucose (mg/dL) (65-110) mg/dL Random Glucose (75-110) mg/dL Hemoglobin A1c (4.2-6.5) % Calcium (8.6-10.4) mg/dl Phosphorus (2.5-4.5) mg/dL Magnesium (1.6-2.3) mg/dL Total Bilirubin (0.2-1.3) mg/dL AST (17-59) U/L ALT (21-72) U/L Alkaline Phosphatase (38-126) U/L Total Creatine Kinase (55-170) U/L Troponin I (0.00-0.120) ng/mL Total Protein (6.3-8.3) g/dL Albumin (3.5-5.0) g/dL Globulin (2.2-3.9) gm/dL Albumin/Globulin Ratio (1.0-2.1) Triglycerides (0-149) mg/dL Cholesterol (0-199) mg/dL LDL Cholesterol Direct (0-129) mg/dL HDL Cholesterol (30-70) mg/dL Arterial Blood Potassium (3.6-5.2) mmol/L Venous Blood Potassium 4.1 (3.6-5.2) mmol/L Urine Color Brown (YELLOW) Urine Clarity Turbid (Clear) Urine pH 6.0 (5.0-8.0) Ur Specific [place] 1.023 (1.003-1.030) Urine Protein 2+ H (NEGATIVE) mg/dL Urine Glucose (UA) Normal (Normal) mg/dL Urine Ketones Trace (NEGATIVE) mg/dL Urine Blood 3+ H (NEGATIVE) Urine Nitrate Negative (NEGATIVE) Urine Bilirubin Negative (NEGATIVE) Urine Urobilinogen Normal (0.2-1.0) mg/dL Ur Leukocyte Esterase 3+ H (Negative) Annita/uL Urine WBC (Auto) 26887 H (0-5) /hpf Urine RBC (Auto) 2075 H (0-3) /hpf Urine WBC Clumps (Auto) Many H (NONE) /hpf Amorphous Sediment Moderate H (<OCC) /ul Urine Bacteria Mod H (<OCC) Blood Type B POSITIVE Antibody Screen Positive Antibody Identification Non Specific Cold Antibody 03/19/18 03/19/18 03/19/18 Range/Units 14:18 14:18 14:18 WBC (4.8-10.8) K/uL RBC (4.40-5.90) Mil/uL Hgb (12.0-18.0) g/dL Hct (35.0-51.0) % MCV (80.0-94.0) fL MCH (27.0-31.0) pg MCHC (33.0-37.0) g/dL RDW (11.5-14.5) % Plt Count (130-400) K/uL MPV (7.2-11.7) fL Neut % (Auto) (50.0-75.0) % Lymph % (Auto) (20.0-40.0) % [place] % (Auto) (0.0-10.0) % Eos % (Auto) (0.0-4.0) % Baso % (Auto) (0.0-2.0) % Neut # (Auto) (1.8-7.0) K/uL Lymph # (Auto) (1.0-4.3) K/uL [place] # (Auto) (0.0-0.8) K/uL Eos # (Auto) (0.0-0.7) K/uL Baso # (Auto) (0.0-0.2) K/uL Neutrophils % (Manual) (50-75) % Band Neutrophils % (0-2) % Lymphocytes % (Manual) (20-40) % Monocytes % (Manual) (0-10) % Eosinophils % (Manual) (0-4) % Basophils % (Manual) (0-2) % Myelocytes % (0-0) % Nucleated RBC % (0-0) % Platelet Estimate (NORMAL) Basophilic Stippling Anisocytosis (manual) Macrocytosis (manual) PT 10.7 (9.7-12.2) SECONDS INR 1.0 APTT 39 H (21-34) SECONDS Puncture Site pCO2 (35-45) mm/Hg pO2 (30-55) mm/Hg HCO3 (21-28) mmol/L ABG pH (7.35-7.45) ABG Total CO2 (22-28) mmol/L ABG O2 Saturation (95-98) % ABG Base Excess (-2.0-3.0) mmol/L ABG Hemoglobin (11.7-17.4) g/dL ABG Carboxyhemoglobin (0.5-1.5) % POC ABG HHb (Measured) (0.0-5.0) % ABG Methemoglobin (0.0-3.0) % Esvin Test ABG Potassium (3.6-5.2) mmol/L VBG pH (7.32-7.43) VBG pCO2 (40-60) mmHg VBG HCO3 mmol/L VBG Total CO2 (22-28) mmol/L VBG O2 Sat (Calc) (40-65) % VBG Base Excess (0.0-2.0) mmol/L VBG Potassium (3.6-5.2) mmol/L A-a O2 Difference mm/Hg Respiratory Index Hgb O2 Saturation (95.0-98.0) % Glucose (75-110) mg/dl Lactate (0.7-2.1) mmol/L Vent Mode Mechanical Rate FiO2 % Tidal Volume PEEP Inspiratory BiPAP Expiratory BiPAP Crit Value Called To Crit Value Called By Crit Value Read Back Blood Gas Notified Time Sodium 141 (132-148) mmol/L Potassium 4.3 (3.6-5.2) mmol/L Chloride 98 (98-107) mmol/L Carbon Dioxide 32 H (22-30) mmol/L Anion Gap 14 (10-20) BUN 31 H (9-20) mg/dL Creatinine 5.6 H (0.8-1.5) mg/dL Est GFR ( Amer) 12 Est GFR (Non-Af Amer) 10 POC Glucose (mg/dL) (65-110) mg/dL Random Glucose 130 H (75-110) mg/dL Hemoglobin A1c 4.0 L (4.2-6.5) % Calcium 9.0 (8.6-10.4) mg/dl Phosphorus 4.4 (2.5-4.5) mg/dL Magnesium 2.6 H (1.6-2.3) mg/dL Total Bilirubin 0.7 (0.2-1.3) mg/dL AST 17 (17-59) U/L ALT 35 (21-72) U/L Alkaline Phosphatase 90 (38-126) U/L Total Creatine Kinase 26 L (55-170) U/L Troponin I < 0.0120 (0.00-0.120) ng/mL Total Protein 6.1 L (6.3-8.3) g/dL Albumin 3.3 L (3.5-5.0) g/dL Globulin 2.8 (2.2-3.9) gm/dL Albumin/Globulin Ratio 1.2 (1.0-2.1) Triglycerides 136 D (0-149) mg/dL Cholesterol 101 (0-199) mg/dL LDL Cholesterol Direct < 30 (0-129) mg/dL HDL Cholesterol 46 (30-70) mg/dL Arterial Blood Potassium (3.6-5.2) mmol/L Venous Blood Potassium (3.6-5.2) mmol/L Urine Color (YELLOW) Urine Clarity (Clear) Urine pH (5.0-8.0) Ur Specific [place] (1.003-1.030) Urine Protein (NEGATIVE) mg/dL Urine Glucose (UA) (Normal) mg/dL Urine Ketones (NEGATIVE) mg/dL Urine Blood (NEGATIVE) Urine Nitrate (NEGATIVE) Urine Bilirubin (NEGATIVE) Urine Urobilinogen (0.2-1.0) mg/dL Ur Leukocyte Esterase (Negative) Annita/uL Urine WBC (Auto) (0-5) /hpf Urine RBC (Auto) (0-3) /hpf Urine WBC Clumps (Auto) (NONE) /hpf Amorphous Sediment (<OCC) /ul Urine Bacteria (<OCC) Blood Type Antibody Screen Antibody Identification 03/19/18 03/19/18 Range/Units 14:18 13:18 WBC 8.8 D (4.8-10.8) K/uL RBC 3.31 L (4.40-5.90) Mil/uL Hgb 10.9 L (12.0-18.0) g/dL Hct 35.2 (35.0-51.0) % MCV 106.3 H (80.0-94.0) fL MCH 33.1 H (27.0-31.0) pg MCHC 31.1 L (33.0-37.0) g/dL RDW 19.7 H (11.5-14.5) % Plt Count 108 L (130-400) K/uL MPV 8.9 (7.2-11.7) fL Neut % (Auto) 80.3 H (50.0-75.0) % Lymph % (Auto) 8.4 L (20.0-40.0) % [place] % (Auto) 6.1 (0.0-10.0) % Eos % (Auto) 4.4 H (0.0-4.0) % Baso % (Auto) 0.8 (0.0-2.0) % Neut # (Auto) 7.1 H (1.8-7.0) K/uL Lymph # (Auto) 0.7 L (1.0-4.3) K/uL [place] # (Auto) 0.5 (0.0-0.8) K/uL Eos # (Auto) 0.4 (0.0-0.7) K/uL Baso # (Auto) 0.1 (0.0-0.2) K/uL Neutrophils % (Manual) 81 H (50-75) % Band Neutrophils % 3 H (0-2) % Lymphocytes % (Manual) 6 L (20-40) % Monocytes % (Manual) 6 (0-10) % Eosinophils % (Manual) 2 (0-4) % Basophils % (Manual) 1 (0-2) % Myelocytes % 1 H (0-0) % Nucleated RBC % 2 H (0-0) % Platelet Estimate Slightly decreased L (NORMAL) Basophilic Stippling Slight Anisocytosis (manual) Moderate Macrocytosis (manual) Moderate PT (9.7-12.2) SECONDS INR APTT (21-34) SECONDS Puncture Site pCO2 (35-45) mm/Hg pO2 (30-55) mm/Hg HCO3 (21-28) mmol/L ABG pH (7.35-7.45) ABG Total CO2 (22-28) mmol/L ABG O2 Saturation (95-98) % ABG Base Excess (-2.0-3.0) mmol/L ABG Hemoglobin (11.7-17.4) g/dL ABG Carboxyhemoglobin (0.5-1.5) % POC ABG HHb (Measured) (0.0-5.0) % ABG Methemoglobin (0.0-3.0) % Esvin Test ABG Potassium (3.6-5.2) mmol/L VBG pH (7.32-7.43) VBG pCO2 (40-60) mmHg VBG HCO3 mmol/L VBG Total CO2 (22-28) mmol/L VBG O2 Sat (Calc) (40-65) % VBG Base Excess (0.0-2.0) mmol/L VBG Potassium (3.6-5.2) mmol/L A-a O2 Difference mm/Hg Respiratory Index Hgb O2 Saturation (95.0-98.0) % Glucose (75-110) mg/dl Lactate (0.7-2.1) mmol/L Vent Mode Mechanical Rate FiO2 % Tidal Volume PEEP Inspiratory BiPAP Expiratory BiPAP Crit Value Called To Crit Value Called By Crit Value Read Back Blood Gas Notified Time Sodium (132-148) mmol/L Potassium (3.6-5.2) mmol/L Chloride (98-107) mmol/L Carbon Dioxide (22-30) mmol/L Anion Gap (10-20) BUN (9-20) mg/dL Creatinine (0.8-1.5) mg/dL Est GFR ( Amer) Est GFR (Non-Af Amer) POC Glucose (mg/dL) 131 H (65-110) mg/dL Random Glucose (75-110) mg/dL Hemoglobin A1c (4.2-6.5) % Calcium (8.6-10.4) mg/dl Phosphorus (2.5-4.5) mg/dL Magnesium (1.6-2.3) mg/dL Total Bilirubin (0.2-1.3) mg/dL AST (17-59) U/L ALT (21-72) U/L Alkaline Phosphatase (38-126) U/L Total Creatine Kinase (55-170) U/L Troponin I (0.00-0.120) ng/mL Total Protein (6.3-8.3) g/dL Albumin (3.5-5.0) g/dL Globulin (2.2-3.9) gm/dL Albumin/Globulin Ratio (1.0-2.1) Triglycerides (0-149) mg/dL Cholesterol (0-199) mg/dL LDL Cholesterol Direct (0-129) mg/dL HDL Cholesterol (30-70) mg/dL Arterial Blood Potassium (3.6-5.2) mmol/L Venous Blood Potassium (3.6-5.2) mmol/L Urine Color (YELLOW) Urine Clarity (Clear) Urine pH (5.0-8.0) Ur Specific [place] (1.003-1.030) Urine Protein (NEGATIVE) mg/dL Urine Glucose (UA) (Normal) mg/dL Urine Ketones (NEGATIVE) mg/dL Urine Blood (NEGATIVE) Urine Nitrate (NEGATIVE) Urine Bilirubin (NEGATIVE) Urine Urobilinogen (0.2-1.0) mg/dL Ur Leukocyte Esterase (Negative) Annita/uL Urine WBC (Auto) (0-5) /hpf Urine RBC (Auto) (0-3) /hpf Urine WBC Clumps (Auto) (NONE) /hpf Amorphous Sediment (<OCC) /ul Urine Bacteria (<OCC) Blood Type Antibody Screen Antibody Identification Laboratory Results - last 24 hr 03/19/18 03/19/18 03/19/18 13:18 14:18 14:18 WBC 8.8 D RBC 3.31 L Hgb 10.9 L Hct 35.2 MCV 106.3 H MCH 33.1 H MCHC 31.1 L RDW 19.7 H Plt Count 108 L MPV 8.9 Neut % (Auto) 80.3 H Lymph % (Auto) 8.4 L [place] % (Auto) 6.1 Eos % (Auto) 4.4 H Baso % (Auto) 0.8 Neut # (Auto) 7.1 H Lymph # (Auto) 0.7 L [place] # (Auto) 0.5 Eos # (Auto) 0.4 Baso # (Auto) 0.1 Neutrophils % (Manual) 81 H Band Neutrophils % 3 H Lymphocytes % (Manual) 6 L Monocytes % (Manual) 6 Eosinophils % (Manual) 2 Basophils % (Manual) 1 Myelocytes % 1 H Nucleated RBC % 2 H Platelet Estimate Slightly decreased L Basophilic Stippling Slight Anisocytosis (manual) Moderate Macrocytosis (manual) Moderate PT 10.7 INR 1.0 APTT 39 H Puncture Site pCO2 pO2 HCO3 ABG pH ABG Total CO2 ABG O2 Saturation ABG Base Excess ABG Hemoglobin ABG Carboxyhemoglobin POC ABG HHb (Measured) ABG Methemoglobin Esvin Test ABG Potassium VBG pH VBG pCO2 VBG HCO3 VBG Total CO2 VBG O2 Sat (Calc) VBG Base Excess VBG Potassium A-a O2 Difference Respiratory Index Hgb O2 Saturation Glucose Lactate Vent Mode Mechanical Rate FiO2 Tidal Volume PEEP Inspiratory BiPAP Expiratory BiPAP Crit Value Called To Crit Value Called By Crit Value Read Back Blood Gas Notified Time Sodium Potassium Chloride Carbon Dioxide Anion Gap BUN Creatinine Est GFR ( Amer) Est GFR (Non-Af Amer) POC Glucose (mg/dL) 131 H Random Glucose Hemoglobin A1c Calcium Phosphorus Magnesium Total Bilirubin AST ALT Alkaline Phosphatase Total Creatine Kinase Troponin I Total Protein Albumin Globulin Albumin/Globulin Ratio Triglycerides Cholesterol LDL Cholesterol Direct HDL Cholesterol Arterial Blood Potassium Venous Blood Potassium Urine Color Urine Clarity Urine pH Ur Specific [place] Urine Protein Urine Glucose (UA) Urine Ketones Urine Blood Urine Nitrate Urine Bilirubin Urine Urobilinogen Ur Leukocyte Esterase Urine WBC (Auto) Urine RBC (Auto) Urine WBC Clumps (Auto) Amorphous Sediment Urine Bacteria Blood Type Antibody Screen Antibody Identification 03/19/18 03/19/18 03/19/18 14:18 14:18 14:20 WBC RBC Hgb Hct MCV MCH MCHC RDW Plt Count MPV Neut % (Auto) Lymph % (Auto) [place] % (Auto) Eos % (Auto) Baso % (Auto) Neut # (Auto) Lymph # (Auto) [place] # (Auto) Eos # (Auto) Baso # (Auto) Neutrophils % (Manual) Band Neutrophils % Lymphocytes % (Manual) Monocytes % (Manual) Eosinophils % (Manual) Basophils % (Manual) Myelocytes % Nucleated RBC % Platelet Estimate Basophilic Stippling Anisocytosis (manual) Macrocytosis (manual) PT INR APTT Puncture Site pCO2 pO2 78 H HCO3 ABG pH ABG Total CO2 ABG O2 Saturation ABG Base Excess ABG Hemoglobin ABG Carboxyhemoglobin POC ABG HHb (Measured) ABG Methemoglobin Esvin Test ABG Potassium VBG pH 7.11 L* VBG pCO2 108 H* VBG HCO3 25.7 VBG Total CO2 37.6 H VBG O2 Sat (Calc) 96.9 H VBG Base Excess 1.3 VBG Potassium 4.1 A-a O2 Difference Respiratory Index Hgb O2 Saturation Glucose 127 H Lactate 0.6 L Vent Mode Mechanical Rate FiO2 21.0 Tidal Volume PEEP Inspiratory BiPAP Expiratory BiPAP Crit Value Called To Er physician Crit Value Called By Mahendra Crit Value Read Back Y Blood Gas Notified Time 1425 Sodium 141 138.0 Potassium 4.3 Chloride 98 102.0 Carbon Dioxide 32 H Anion Gap 14 BUN 31 H Creatinine 5.6 H Est GFR ( Amer) 12 Est GFR (Non-Af Amer) 10 POC Glucose (mg/dL) Random Glucose 130 H Hemoglobin A1c 4.0 L Calcium 9.0 Phosphorus 4.4 Magnesium 2.6 H Total Bilirubin 0.7 AST 17 ALT 35 Alkaline Phosphatase 90 Total Creatine Kinase 26 L Troponin I < 0.0120 Total Protein 6.1 L Albumin 3.3 L Globulin 2.8 Albumin/Globulin Ratio 1.2 Triglycerides 136 D Cholesterol 101 LDL Cholesterol Direct < 30 HDL Cholesterol 46 Arterial Blood Potassium Venous Blood Potassium 4.1 Urine Color Urine Clarity Urine pH Ur Specific [place] Urine Protein Urine Glucose (UA) Urine Ketones Urine Blood Urine Nitrate Urine Bilirubin Urine Urobilinogen Ur Leukocyte Esterase Urine WBC (Auto) Urine RBC (Auto) Urine WBC Clumps (Auto) Amorphous Sediment Urine Bacteria Blood Type Antibody Screen Antibody Identification 03/19/18 03/19/18 03/19/18 14:50 15:45 16:42 WBC RBC Hgb Hct MCV MCH MCHC RDW Plt Count MPV Neut % (Auto) Lymph % (Auto) [place] % (Auto) Eos % (Auto) Baso % (Auto) Neut # (Auto) Lymph # (Auto) [place] # (Auto) Eos # (Auto) Baso # (Auto) Neutrophils % (Manual) Band Neutrophils % Lymphocytes % (Manual) Monocytes % (Manual) Eosinophils % (Manual) Basophils % (Manual) Myelocytes % Nucleated RBC % Platelet Estimate Basophilic Stippling Anisocytosis (manual) Macrocytosis (manual) PT INR APTT Puncture Site pCO2 pO2 HCO3 ABG pH ABG Total CO2 ABG O2 Saturation ABG Base Excess ABG Hemoglobin ABG Carboxyhemoglobin POC ABG HHb (Measured) ABG Methemoglobin Esvin Test ABG Potassium VBG pH VBG pCO2 VBG HCO3 VBG Total CO2 VBG O2 Sat (Calc) VBG Base Excess VBG Potassium A-a O2 Difference Respiratory Index Hgb O2 Saturation Glucose Lactate Vent Mode Mechanical Rate FiO2 Tidal Volume PEEP Inspiratory BiPAP Expiratory BiPAP Crit Value Called To Crit Value Called By Crit Value Read Back Blood Gas Notified Time Sodium Potassium Chloride Carbon Dioxide Anion Gap BUN Creatinine Est GFR ( Amer) Est GFR (Non-Af Amer) POC Glucose (mg/dL) 123 H Random Glucose Hemoglobin A1c Calcium Phosphorus Magnesium Total Bilirubin AST ALT Alkaline Phosphatase Total Creatine Kinase Troponin I Total Protein Albumin Globulin Albumin/Globulin Ratio Triglycerides Cholesterol LDL Cholesterol Direct HDL Cholesterol Arterial Blood Potassium Venous Blood Potassium Urine Color Brown Urine Clarity Turbid Urine pH 6.0 Ur Specific [place] 1.023 Urine Protein 2+ H Urine Glucose (UA) Normal Urine Ketones Trace Urine Blood 3+ H Urine Nitrate Negative Urine Bilirubin Negative Urine Urobilinogen Normal Ur Leukocyte Esterase 3+ H Urine WBC (Auto) 20012 H Urine RBC (Auto) 2075 H Urine WBC Clumps (Auto) Many H Amorphous Sediment Moderate H Urine Bacteria Mod H Blood Type B POSITIVE Antibody Screen Positive Antibody Identification Non Specific Cold Antibody 03/19/18 03/19/18 03/19/18 17:05 19:03 21:14 WBC RBC Hgb Hct MCV MCH MCHC RDW Plt Count MPV Neut % (Auto) Lymph % (Auto) [place] % (Auto) Eos % (Auto) Baso % (Auto) Neut # (Auto) Lymph # (Auto) [place] # (Auto) Eos # (Auto) Baso # (Auto) Neutrophils % (Manual) Band Neutrophils % Lymphocytes % (Manual) Monocytes % (Manual) Eosinophils % (Manual) Basophils % (Manual) Myelocytes % Nucleated RBC % Platelet Estimate Basophilic Stippling Anisocytosis (manual) Macrocytosis (manual) PT INR APTT Puncture Site Rba Rba pCO2 102 H* 52 H pO2 56 L 287 H HCO3 25.5 29.8 H ABG pH 7.13 L* 7.40 ABG Total CO2 37.0 H 33.8 H ABG O2 Saturation 91.6 L 99.8 H ABG Base Excess 1.4 6.3 H ABG Hemoglobin 10.7 L ABG Carboxyhemoglobin 2.3 H POC ABG HHb (Measured) 0.2 ABG Methemoglobin 1.1 Esvin Test Na Na ABG Potassium 3.9 VBG pH VBG pCO2 VBG HCO3 VBG Total CO2 VBG O2 Sat (Calc) VBG Base Excess VBG Potassium A-a O2 Difference 102.0 361.0 Respiratory Index 1.8 1.3 Hgb O2 Saturation 96.3 Glucose 107 Lactate 0.5 L Vent Mode Prvc Mechanical Rate 18 FiO2 40.0 100.0 Tidal Volume 500 PEEP 5 Inspiratory BiPAP 16 Expiratory BiPAP 8 Crit Value Called To Jett carbone Crit Value Called By Navneet Crit Value Read Back Y Blood Gas Notified Time 1708 Sodium 139.0 Potassium Chloride 104.0 Carbon Dioxide Anion Gap BUN Creatinine Est GFR ( Amer) Est GFR (Non-Af Amer) POC Glucose (mg/dL) 63 L Random Glucose Hemoglobin A1c Calcium Phosphorus Magnesium Total Bilirubin AST ALT Alkaline Phosphatase Total Creatine Kinase Troponin I Total Protein Albumin Globulin Albumin/Globulin Ratio Triglycerides Cholesterol LDL Cholesterol Direct HDL Cholesterol Arterial Blood Potassium 3.9 Venous Blood Potassium Urine Color Urine Clarity Urine pH Ur Specific [place] Urine Protein Urine Glucose (UA) Urine Ketones Urine Blood Urine Nitrate Urine Bilirubin Urine Urobilinogen Ur Leukocyte Esterase Urine WBC (Auto) Urine RBC (Auto) Urine WBC Clumps (Auto) Amorphous Sediment Urine Bacteria Blood Type Antibody Screen Antibody Identification 03/19/18 03/19/18 03/20/18 21:15 23:55 05:27 WBC RBC Hgb Hct MCV MCH MCHC RDW Plt Count MPV Neut % (Auto) Lymph % (Auto) [place] % (Auto) Eos % (Auto) Baso % (Auto) Neut # (Auto) Lymph # (Auto) [place] # (Auto) Eos # (Auto) Baso # (Auto) Neutrophils % (Manual) Band Neutrophils % Lymphocytes % (Manual) Monocytes % (Manual) Eosinophils % (Manual) Basophils % (Manual) Myelocytes % Nucleated RBC % Platelet Estimate Basophilic Stippling Anisocytosis (manual) Macrocytosis (manual) PT INR APTT Puncture Site Rr pCO2 42 pO2 128 H HCO3 28.0 ABG pH 7.44 ABG Total CO2 29.8 H ABG O2 Saturation 99.0 H ABG Base Excess 3.9 H ABG Hemoglobin 9.6 L ABG Carboxyhemoglobin 1.8 H POC ABG HHb (Measured) 1.0 ABG Methemoglobin 1.4 Esvin Test Pos ABG Potassium VBG pH VBG pCO2 VBG HCO3 VBG Total CO2 VBG O2 Sat (Calc) VBG Base Excess VBG Potassium A-a O2 Difference 176.0 Respiratory Index 1.4 Hgb O2 Saturation 95.7 Glucose Lactate Vent Mode Prvc Mechanical Rate 18 FiO2 50.0 Tidal Volume 500 PEEP 5 Inspiratory BiPAP Expiratory BiPAP Crit Value Called To Crit Value Called By Crit Value Read Back Blood Gas Notified Time Sodium Potassium Chloride Carbon Dioxide Anion Gap BUN Creatinine Est GFR ( Amer) Est GFR (Non-Af Amer) POC Glucose (mg/dL) 73 79 Random Glucose Hemoglobin A1c Calcium Phosphorus Magnesium Total Bilirubin AST ALT Alkaline Phosphatase Total Creatine Kinase Troponin I Total Protein Albumin Globulin Albumin/Globulin Ratio Triglycerides Cholesterol LDL Cholesterol Direct HDL Cholesterol Arterial Blood Potassium Venous Blood Potassium Urine Color Urine Clarity Urine pH Ur Specific [place] Urine Protein Urine Glucose (UA) Urine Ketones Urine Blood Urine Nitrate Urine Bilirubin Urine Urobilinogen Ur Leukocyte Esterase Urine WBC (Auto) Urine RBC (Auto) Urine WBC Clumps (Auto) Amorphous Sediment Urine Bacteria Blood Type Antibody Screen Antibody Identification 03/20/18 03/20/18 06:54 06:54 WBC 7.6 RBC 3.03 L Hgb 10.0 L Hct 31.6 L MCV 104.4 H MCH 33.0 H MCHC 31.7 L RDW 18.7 H Plt Count 90 L MPV 8.8 Neut % (Auto) 77.3 H Lymph % (Auto) 8.2 L [place] % (Auto) 5.6 Eos % (Auto) 8.2 H Baso % (Auto) 0.7 Neut # (Auto) 5.9 Lymph # (Auto) 0.6 L [place] # (Auto) 0.4 Eos # (Auto) 0.6 Baso # (Auto) 0.1 Neutrophils % (Manual) 80 H Band Neutrophils % 1 Lymphocytes % (Manual) 8 L Monocytes % (Manual) 3 Eosinophils % (Manual) 8 H Basophils % (Manual) Myelocytes % Nucleated RBC % 4 H Platelet Estimate Decreased L Basophilic Stippling Slight Anisocytosis (manual) Moderate Macrocytosis (manual) Moderate PT INR APTT Puncture Site pCO2 pO2 HCO3 ABG pH ABG Total CO2 ABG O2 Saturation ABG Base Excess ABG Hemoglobin ABG Carboxyhemoglobin POC ABG HHb (Measured) ABG Methemoglobin Esvin Test ABG Potassium VBG pH VBG pCO2 VBG HCO3 VBG Total CO2 VBG O2 Sat (Calc) VBG Base Excess VBG Potassium A-a O2 Difference Respiratory Index Hgb O2 Saturation Glucose Lactate Vent Mode Mechanical Rate FiO2 Tidal Volume PEEP Inspiratory BiPAP Expiratory BiPAP Crit Value Called To Crit Value Called By Crit Value Read Back Blood Gas Notified Time Sodium 142 Potassium 3.0 L Chloride 103 Carbon Dioxide 30 Anion Gap 12 BUN 17 Creatinine 3.1 H Est GFR ( Amer) 25 Est GFR (Non-Af Amer) 20 POC Glucose (mg/dL) Random Glucose 86 Hemoglobin A1c Calcium 9.0 Phosphorus 0.8 L* Magnesium 2.2 Total Bilirubin 0.8 AST 21 ALT 31 Alkaline Phosphatase 91 Total Creatine Kinase Troponin I Total Protein 5.5 L Albumin 3.1 L Globulin 2.4 Albumin/Globulin Ratio 1.3 Triglycerides Cholesterol LDL Cholesterol Direct HDL Cholesterol Arterial Blood Potassium Venous Blood Potassium Urine Color Urine Clarity Urine pH Ur Specific [place] Urine Protein Urine Glucose (UA) Urine Ketones Urine Blood Urine Nitrate Urine Bilirubin Urine Urobilinogen Ur Leukocyte Esterase Urine WBC (Auto) Urine RBC (Auto) Urine WBC Clumps (Auto) Amorphous Sediment Urine Bacteria Blood Type Antibody Screen Antibody Identification EKG/Cardiology Studies: Cardiology / EKG Studies 03/19/18 13:20 ELECTROCARDIOGRAM Stat Comment: Mode Of Transportation: BED Reason For Exam: code stroke 03/19/18 13:57 EKG [ELECTROCARDIOGRAM] Stat Comment: Mode Of Transportation: BED Reason For Exam: repeat Fingerstick Blood Sugar Results: 71 Review of Systems - Review of Systems Systems not reviewed;Unavailable: Intubated Assessment/Plan - Assessment and Plan (Free Text) Assessment: 67 year old male with history of CAD s/p pacemaker, CVA, DM, ESRD on HD who presented for altered mental status. Patient was noted to be in respiratory distress. Patient was initially placed on BIPAP in the ED, however patient was intubated on arrival to the ICU. Patient was found to be hypotensive and had right IJ central line placed. Plan: Neuro: Propofol discontinued On Precedex Continue to monitor neurological status 03/[address]: No evidence of acute intracranial hemorrhage transcortical infarction mass effect or midline shift. Mild atrophy and [id number] chronic microvascular white matter ischemic disease. No significant interval changes noted since the previous exam. Pulmonary: ABG pH 7.44 pCO2 42 pO2 128 lactate 03/19 Intubated on arrival Current vent settings TV 500ml FiO2 40% PEEP 5 RR 18 03/20 No significant interval change in potential bibasilar airspace disease and mild bilateral pleural effusions, left greater than right. Borderline pulmonary vascular congestion. CT chest without contrast f/u Cardiovascular: Troponin <0.0120 03/20 No significant interval change in potential bibasilar airspace disease and mild bilateral pleural effusions, left greater than right. Borderline pulmonary vascular congestion. BP currently 144/39 Right IJ TLC placed Not currently on pressors since BP went up after central line placement Continue to monitor ASA 81mg Renal: Hx of ESRD on HD UA: 3+ leuk esterase, 3+ blood, 2+ protein moderate bacteria Procrit 4000 units IV TTS Paracalcitol 2mg IV TTS Nephrology Dr. Ortiz consulted, help appreciated Continue to monitor electrolytes, K and PO4 repleted. GI: Protonix 40mg IV On Nepro tube feeds Endo: A1c: 4 Continue to monitor blood glucose levels ID: Temp 98.4 White count 7.6 with bands of 8 Tylenol 650mg PRN fever Aztreonam 1g IV Tigecycline 50mg IV ID Dr. Rodas consulted, help appreciated Blood cultures, urine culture, sputum cultures sent Heme: H/H 10.0/31.6 No evidence of bleeding PPX: Heparin 5000 units SC Q12 Case discussed with Dr. Lester <Dean Lester - Last Filed: 03/20/18 13:49> CCU Objective - Vital Signs / Intake & Output Intake and Output (Last 8hrs): Intake & Output 03/19/18 03/20/18 03/20/18 22:59 06:59 14:59 Intake Total 169.6 196.7 Output Total 0 0 Balance 169.6 196.7 Weight 180 lb 5.41 oz 179 lb 14.355 oz Intake: Intake, IV Amount 169.6 36.7 Right Forearm 160 0 Right Proximal Port 9.6 36.7 Internal Jugular Oral 0 0 Tube Feeding 160 Output: Stool 0 0 Emesis 0 Other: # Bowel Movements 0 1 - Medications Active Medications: Active Medications Generic Name Dose Route Start Last Admin Trade Name Freq PRN Reason Stop Dose Admin Acetaminophen 650 mg 03/20/18 10:28 03/20/18 10:30 Tylenol 650 Mg Supp ME 650 mg Q6 PRN Administration Fever >100.4 F Aspirin 81 mg 03/20/18 10:00 03/20/18 11:21 Aspirin Chewable PO 81 mg DAILY BELL Administration Epoetin Mario 4,000 unit 03/19/18 18:00 03/19/18 20:51 Procrit IV 4,000 unit TTS BELL Administration Heparin Sodium (Porcine) 5,000 units 03/20/18 22:00 Heparin SC Q12 BELL Aztreonam 1 gm/ Sodium 100 mls @ 100 mls/hr 03/19/18 18:30 03/19/18 23:00 Chloride IVPB 100 mls/hr Q24H BELL Administration Protocol Potassium Phosphate 15 mmole/ 255 mls @ 42.5 mls/hr 03/20/18 08:00 03/20/18 08:20 Sodium Chloride IVPB 03/20/18 13:59 42.5 mls/hr ONCE ONE Administration Tigecycline 50 mg/ Sodium 100 mls @ 100 mls/hr 03/20/18 23:00 Chloride IVPB Q12H BELL Protocol Dexmedetomidine HCl 200 mcg/ 50 mls @ 4.08 mls/hr 03/20/18 11:06 Sodium Chloride IV TITR PRN Agitation Protocol 0.2 MCG/KG/HR Pantoprazole Sodium 40 mg 03/20/18 10:00 03/20/18 11:21 Protonix Inj IVP 40 mg DAILY BELL Administration Paricalcitol 2 mcg 03/19/18 18:00 03/19/18 20:52 Zemplar IV 2 mcg TTS BELL Administration - Patient Studies Lab Studies: Lab Studies 03/20/18 03/20/18 03/20/18 Range/Units 06:54 06:54 05:27 WBC 7.6 (4.8-10.8) K/uL RBC 3.03 L (4.40-5.90) Mil/uL Hgb 10.0 L (12.0-18.0) g/dL Hct 31.6 L (35.0-51.0) % MCV 104.4 H (80.0-94.0) fL MCH 33.0 H (27.0-31.0) pg MCHC 31.7 L (33.0-37.0) g/dL RDW 18.7 H (11.5-14.5) % Plt Count 90 L (130-400) K/uL MPV 8.8 (7.2-11.7) fL Neut % (Auto) 77.3 H (50.0-75.0) % Lymph % (Auto) 8.2 L (20.0-40.0) % [place] % (Auto) 5.6 (0.0-10.0) % Eos % (Auto) 8.2 H (0.0-4.0) % Baso % (Auto) 0.7 (0.0-2.0) % Neut # (Auto) 5.9 (1.8-7.0) K/uL Lymph # (Auto) 0.6 L (1.0-4.3) K/uL [place] # (Auto) 0.4 (0.0-0.8) K/uL Eos # (Auto) 0.6 (0.0-0.7) K/uL Baso # (Auto) 0.1 (0.0-0.2) K/uL Neutrophils % (Manual) 80 H (50-75) % Band Neutrophils % 1 (0-2) % Lymphocytes % (Manual) 8 L (20-40) % Monocytes % (Manual) 3 (0-10) % Eosinophils % (Manual) 8 H (0-4) % Basophils % (Manual) (0-2) % Myelocytes % (0-0) % Nucleated RBC % 4 H (0-0) % Platelet Estimate Decreased L (NORMAL) Basophilic Stippling Slight Anisocytosis (manual) Moderate Macrocytosis (manual) Moderate PT (9.7-12.2) SECONDS INR APTT (21-34) SECONDS Puncture Site Rr pCO2 42 (35-45) mm/Hg pO2 128 H (30-55) mm/Hg HCO3 28.0 (21-28) mmol/L ABG pH 7.44 (7.35-7.45) ABG Total CO2 29.8 H (22-28) mmol/L ABG O2 Saturation 99.0 H (95-98) % ABG Base Excess 3.9 H (-2.0-3.0) mmol/L ABG Hemoglobin 9.6 L (11.7-17.4) g/dL ABG Carboxyhemoglobin 1.8 H (0.5-1.5) % POC ABG HHb (Measured) 1.0 (0.0-5.0) % ABG Methemoglobin 1.4 (0.0-3.0) % Esvin Test Pos ABG Potassium (3.6-5.2) mmol/L VBG pH (7.32-7.43) VBG pCO2 (40-60) mmHg VBG HCO3 mmol/L VBG Total CO2 (22-28) mmol/L VBG O2 Sat (Calc) (40-65) % VBG Base Excess (0.0-2.0) mmol/L VBG Potassium (3.6-5.2) mmol/L A-a O2 Difference 176.0 mm/Hg Respiratory Index 1.4 Hgb O2 Saturation 95.7 (95.0-98.0) % Glucose (75-110) mg/dl Lactate (0.7-2.1) mmol/L Vent Mode Prvc Mechanical Rate 18 FiO2 50.0 % Tidal Volume 500 PEEP 5 Inspiratory BiPAP Expiratory BiPAP Crit Value Called To Crit Value Called By Crit Value Read Back Blood Gas Notified Time Sodium 142 (132-148) mmol/L Potassium 3.0 L (3.6-5.2) mmol/L Chloride 103 (98-107) mmol/L Carbon Dioxide 30 (22-30) mmol/L Anion Gap 12 (10-20) BUN 17 (9-20) mg/dL Creatinine 3.1 H (0.8-1.5) mg/dL Est GFR ( Amer) 25 Est GFR (Non-Af Amer) 20 POC Glucose (mg/dL) (65-110) mg/dL Random Glucose 86 (75-110) mg/dL Hemoglobin A1c (4.2-6.5) % Calcium 9.0 (8.6-10.4) mg/dl Phosphorus 0.8 L* (2.5-4.5) mg/dL Magnesium 2.2 (1.6-2.3) mg/dL Total Bilirubin 0.8 (0.2-1.3) mg/dL AST 21 (17-59) U/L ALT 31 (21-72) U/L Alkaline Phosphatase 91 (38-126) U/L Total Creatine Kinase (55-170) U/L Troponin I (0.00-0.120) ng/mL Total Protein 5.5 L (6.3-8.3) g/dL Albumin 3.1 L (3.5-5.0) g/dL Globulin 2.4 (2.2-3.9) gm/dL Albumin/Globulin Ratio 1.3 (1.0-2.1) Triglycerides (0-149) mg/dL Cholesterol (0-199) mg/dL LDL Cholesterol Direct (0-129) mg/dL HDL Cholesterol (30-70) mg/dL Arterial Blood Potassium (3.6-5.2) mmol/L Venous Blood Potassium (3.6-5.2) mmol/L Urine Color (YELLOW) Urine Clarity (Clear) Urine pH (5.0-8.0) Ur Specific [place] (1.003-1.030) Urine Protein (NEGATIVE) mg/dL Urine Glucose (UA) (Normal) mg/dL Urine Ketones (NEGATIVE) mg/dL Urine Blood (NEGATIVE) Urine Nitrate (NEGATIVE) Urine Bilirubin (NEGATIVE) Urine Urobilinogen (0.2-1.0) mg/dL Ur Leukocyte Esterase (Negative) Annita/uL Urine WBC (Auto) (0-5) /hpf Urine RBC (Auto) (0-3) /hpf Urine WBC Clumps (Auto) (NONE) /hpf Amorphous Sediment (<OCC) /ul Urine Bacteria (<OCC) Blood Type Antibody Screen Antibody Identification 03/19/18 03/19/18 03/19/18 Range/Units 23:55 21:15 21:14 WBC (4.8-10.8) K/uL RBC (4.40-5.90) Mil/uL Hgb (12.0-18.0) g/dL Hct (35.0-51.0) % MCV (80.0-94.0) fL MCH (27.0-31.0) pg MCHC (33.0-37.0) g/dL RDW (11.5-14.5) % Plt Count (130-400) K/uL MPV (7.2-11.7) fL Neut % (Auto) (50.0-75.0) % Lymph % (Auto) (20.0-40.0) % [place] % (Auto) (0.0-10.0) % Eos % (Auto) (0.0-4.0) % Baso % (Auto) (0.0-2.0) % Neut # (Auto) (1.8-7.0) K/uL Lymph # (Auto) (1.0-4.3) K/uL [place] # (Auto) (0.0-0.8) K/uL Eos # (Auto) (0.0-0.7) K/uL Baso # (Auto) (0.0-0.2) K/uL Neutrophils % (Manual) (50-75) % Band Neutrophils % (0-2) % Lymphocytes % (Manual) (20-40) % Monocytes % (Manual) (0-10) % Eosinophils % (Manual) (0-4) % Basophils % (Manual) (0-2) % Myelocytes % (0-0) % Nucleated RBC % (0-0) % Platelet Estimate (NORMAL) Basophilic Stippling Anisocytosis (manual) Macrocytosis (manual) PT (9.7-12.2) SECONDS INR APTT (21-34) SECONDS Puncture Site pCO2 (35-45) mm/Hg pO2 (30-55) mm/Hg HCO3 (21-28) mmol/L ABG pH (7.35-7.45) ABG Total CO2 (22-28) mmol/L ABG O2 Saturation (95-98) % ABG Base Excess (-2.0-3.0) mmol/L ABG Hemoglobin (11.7-17.4) g/dL ABG Carboxyhemoglobin (0.5-1.5) % POC ABG HHb (Measured) (0.0-5.0) % ABG Methemoglobin (0.0-3.0) % Esvin Test ABG Potassium (3.6-5.2) mmol/L VBG pH (7.32-7.43) VBG pCO2 (40-60) mmHg VBG HCO3 mmol/L VBG Total CO2 (22-28) mmol/L VBG O2 Sat (Calc) (40-65) % VBG Base Excess (0.0-2.0) mmol/L VBG Potassium (3.6-5.2) mmol/L A-a O2 Difference mm/Hg Respiratory Index Hgb O2 Saturation (95.0-98.0) % Glucose (75-110) mg/dl Lactate (0.7-2.1) mmol/L Vent Mode Mechanical Rate FiO2 % Tidal Volume PEEP Inspiratory BiPAP Expiratory BiPAP Crit Value Called To Crit Value Called By Crit Value Read Back Blood Gas Notified Time Sodium (132-148) mmol/L Potassium (3.6-5.2) mmol/L Chloride (98-107) mmol/L Carbon Dioxide (22-30) mmol/L Anion Gap (10-20) BUN (9-20) mg/dL Creatinine (0.8-1.5) mg/dL Est GFR ( Amer) Est GFR (Non-Af Amer) POC Glucose (mg/dL) 79 73 63 L (65-110) mg/dL Random Glucose (75-110) mg/dL Hemoglobin A1c (4.2-6.5) % Calcium (8.6-10.4) mg/dl Phosphorus (2.5-4.5) mg/dL Magnesium (1.6-2.3) mg/dL Total Bilirubin (0.2-1.3) mg/dL AST (17-59) U/L ALT (21-72) U/L Alkaline Phosphatase (38-126) U/L Total Creatine Kinase (55-170) U/L Troponin I (0.00-0.120) ng/mL Total Protein (6.3-8.3) g/dL Albumin (3.5-5.0) g/dL Globulin (2.2-3.9) gm/dL Albumin/Globulin Ratio (1.0-2.1) Triglycerides (0-149) mg/dL Cholesterol (0-199) mg/dL LDL Cholesterol Direct (0-129) mg/dL HDL Cholesterol (30-70) mg/dL Arterial Blood Potassium (3.6-5.2) mmol/L Venous Blood Potassium (3.6-5.2) mmol/L Urine Color (YELLOW) Urine Clarity (Clear) Urine pH (5.0-8.0) Ur Specific [place] (1.003-1.030) Urine Protein (NEGATIVE) mg/dL Urine Glucose (UA) (Normal) mg/dL Urine Ketones (NEGATIVE) mg/dL Urine Blood (NEGATIVE) Urine Nitrate (NEGATIVE) Urine Bilirubin (NEGATIVE) Urine Urobilinogen (0.2-1.0) mg/dL Ur Leukocyte Esterase (Negative) Annita/uL Urine WBC (Auto) (0-5) /hpf Urine RBC (Auto) (0-3) /hpf Urine WBC Clumps (Auto) (NONE) /hpf Amorphous Sediment (<OCC) /ul Urine Bacteria (<OCC) Blood Type Antibody Screen Antibody Identification 03/19/18 03/19/18 03/19/18 Range/Units 19:03 17:05 16:42 WBC (4.8-10.8) K/uL RBC (4.40-5.90) Mil/uL Hgb (12.0-18.0) g/dL Hct (35.0-51.0) % MCV (80.0-94.0) fL MCH (27.0-31.0) pg MCHC (33.0-37.0) g/dL RDW (11.5-14.5) % Plt Count (130-400) K/uL MPV (7.2-11.7) fL Neut % (Auto) (50.0-75.0) % Lymph % (Auto) (20.0-40.0) % [place] % (Auto) (0.0-10.0) % Eos % (Auto) (0.0-4.0) % Baso % (Auto) (0.0-2.0) % Neut # (Auto) (1.8-7.0) K/uL Lymph # (Auto) (1.0-4.3) K/uL [place] # (Auto) (0.0-0.8) K/uL Eos # (Auto) (0.0-0.7) K/uL Baso # (Auto) (0.0-0.2) K/uL Neutrophils % (Manual) (50-75) % Band Neutrophils % (0-2) % Lymphocytes % (Manual) (20-40) % Monocytes % (Manual) (0-10) % Eosinophils % (Manual) (0-4) % Basophils % (Manual) (0-2) % Myelocytes % (0-0) % Nucleated RBC % (0-0) % Platelet Estimate (NORMAL) Basophilic Stippling Anisocytosis (manual) Macrocytosis (manual) PT (9.7-12.2) SECONDS INR APTT (21-34) SECONDS Puncture Site Rba Rba pCO2 52 H 102 H* (35-45) mm/Hg pO2 287 H 56 L (30-55) mm/Hg HCO3 29.8 H 25.5 (21-28) mmol/L ABG pH 7.40 7.13 L* (7.35-7.45) ABG Total CO2 33.8 H 37.0 H (22-28) mmol/L ABG O2 Saturation 99.8 H 91.6 L (95-98) % ABG Base Excess 6.3 H 1.4 (-2.0-3.0) mmol/L ABG Hemoglobin 10.7 L (11.7-17.4) g/dL ABG Carboxyhemoglobin 2.3 H (0.5-1.5) % POC ABG HHb (Measured) 0.2 (0.0-5.0) % ABG Methemoglobin 1.1 (0.0-3.0) % Esvin Test Na Na ABG Potassium 3.9 (3.6-5.2) mmol/L VBG pH (7.32-7.43) VBG pCO2 (40-60) mmHg VBG HCO3 mmol/L VBG Total CO2 (22-28) mmol/L VBG O2 Sat (Calc) (40-65) % VBG Base Excess (0.0-2.0) mmol/L VBG Potassium (3.6-5.2) mmol/L A-a O2 Difference 361.0 102.0 mm/Hg Respiratory Index 1.3 1.8 Hgb O2 Saturation 96.3 (95.0-98.0) % Glucose 107 (75-110) mg/dl Lactate 0.5 L (0.7-2.1) mmol/L Vent Mode Prvc Mechanical Rate 18 FiO2 100.0 40.0 % Tidal Volume 500 PEEP 5 Inspiratory BiPAP 16 Expiratory BiPAP 8 Crit Value Called To Jett carbone Crit Value Called By Navneet Crit Value Read Back Y Blood Gas Notified Time 1708 Sodium 139.0 (132-148) mmol/L Potassium (3.6-5.2) mmol/L Chloride 104.0 (98-107) mmol/L Carbon Dioxide (22-30) mmol/L Anion Gap (10-20) BUN (9-20) mg/dL Creatinine (0.8-1.5) mg/dL Est GFR ( Amer) Est GFR (Non-Af Amer) POC Glucose (mg/dL) 123 H (65-110) mg/dL Random Glucose (75-110) mg/dL Hemoglobin A1c (4.2-6.5) % Calcium (8.6-10.4) mg/dl Phosphorus (2.5-4.5) mg/dL Magnesium (1.6-2.3) mg/dL Total Bilirubin (0.2-1.3) mg/dL AST (17-59) U/L ALT (21-72) U/L Alkaline Phosphatase (38-126) U/L Total Creatine Kinase (55-170) U/L Troponin I (0.00-0.120) ng/mL Total Protein (6.3-8.3) g/dL Albumin (3.5-5.0) g/dL Globulin (2.2-3.9) gm/dL Albumin/Globulin Ratio (1.0-2.1) Triglycerides (0-149) mg/dL Cholesterol (0-199) mg/dL LDL Cholesterol Direct (0-129) mg/dL HDL Cholesterol (30-70) mg/dL Arterial Blood Potassium 3.9 (3.6-5.2) mmol/L Venous Blood Potassium (3.6-5.2) mmol/L Urine Color (YELLOW) Urine Clarity (Clear) Urine pH (5.0-8.0) Ur Specific [place] (1.003-1.030) Urine Protein (NEGATIVE) mg/dL Urine Glucose (UA) (Normal) mg/dL Urine Ketones (NEGATIVE) mg/dL Urine Blood (NEGATIVE) Urine Nitrate (NEGATIVE) Urine Bilirubin (NEGATIVE) Urine Urobilinogen (0.2-1.0) mg/dL Ur Leukocyte Esterase (Negative) Annita/uL Urine WBC (Auto) (0-5) /hpf Urine RBC (Auto) (0-3) /hpf Urine WBC Clumps (Auto) (NONE) /hpf Amorphous Sediment (<OCC) /ul Urine Bacteria (<OCC) Blood Type Antibody Screen Antibody Identification 03/19/18 03/19/18 03/19/18 Range/Units 15:45 14:50 14:20 WBC (4.8-10.8) K/uL RBC (4.40-5.90) Mil/uL Hgb (12.0-18.0) g/dL Hct (35.0-51.0) % MCV (80.0-94.0) fL MCH (27.0-31.0) pg MCHC (33.0-37.0) g/dL RDW (11.5-14.5) % Plt Count (130-400) K/uL MPV (7.2-11.7) fL Neut % (Auto) (50.0-75.0) % Lymph % (Auto) (20.0-40.0) % [place] % (Auto) (0.0-10.0) % Eos % (Auto) (0.0-4.0) % Baso % (Auto) (0.0-2.0) % Neut # (Auto) (1.8-7.0) K/uL Lymph # (Auto) (1.0-4.3) K/uL [place] # (Auto) (0.0-0.8) K/uL Eos # (Auto) (0.0-0.7) K/uL Baso # (Auto) (0.0-0.2) K/uL Neutrophils % (Manual) (50-75) % Band Neutrophils % (0-2) % Lymphocytes % (Manual) (20-40) % Monocytes % (Manual) (0-10) % Eosinophils % (Manual) (0-4) % Basophils % (Manual) (0-2) % Myelocytes % (0-0) % Nucleated RBC % (0-0) % Platelet Estimate (NORMAL) Basophilic Stippling Anisocytosis (manual) Macrocytosis (manual) PT (9.7-12.2) SECONDS INR APTT (21-34) SECONDS Puncture Site pCO2 (35-45) mm/Hg pO2 78 H (30-55) mm/Hg HCO3 (21-28) mmol/L ABG pH (7.35-7.45) ABG Total CO2 (22-28) mmol/L ABG O2 Saturation (95-98) % ABG Base Excess (-2.0-3.0) mmol/L ABG Hemoglobin (11.7-17.4) g/dL ABG Carboxyhemoglobin (0.5-1.5) % POC ABG HHb (Measured) (0.0-5.0) % ABG Methemoglobin (0.0-3.0) % Esvin Test ABG Potassium (3.6-5.2) mmol/L VBG pH 7.11 L* (7.32-7.43) VBG pCO2 108 H* (40-60) mmHg VBG HCO3 25.7 mmol/L VBG Total CO2 37.6 H (22-28) mmol/L VBG O2 Sat (Calc) 96.9 H (40-65) % VBG Base Excess 1.3 (0.0-2.0) mmol/L VBG Potassium 4.1 (3.6-5.2) mmol/L A-a O2 Difference mm/Hg Respiratory Index Hgb O2 Saturation (95.0-98.0) % Glucose 127 H (75-110) mg/dl Lactate 0.6 L (0.7-2.1) mmol/L Vent Mode Mechanical Rate FiO2 21.0 % Tidal Volume PEEP Inspiratory BiPAP Expiratory BiPAP Crit Value Called To Er physician Crit Value Called By Mahendra Crit Value Read Back Y Blood Gas Notified Time 1425 Sodium 138.0 (132-148) mmol/L Potassium (3.6-5.2) mmol/L Chloride 102.0 (98-107) mmol/L Carbon Dioxide (22-30) mmol/L Anion Gap (10-20) BUN (9-20) mg/dL Creatinine (0.8-1.5) mg/dL Est GFR ( Amer) Est GFR (Non-Af Amer) POC Glucose (mg/dL) (65-110) mg/dL Random Glucose (75-110) mg/dL Hemoglobin A1c (4.2-6.5) % Calcium (8.6-10.4) mg/dl Phosphorus (2.5-4.5) mg/dL Magnesium (1.6-2.3) mg/dL Total Bilirubin (0.2-1.3) mg/dL AST (17-59) U/L ALT (21-72) U/L Alkaline Phosphatase (38-126) U/L Total Creatine Kinase (55-170) U/L Troponin I (0.00-0.120) ng/mL Total Protein (6.3-8.3) g/dL Albumin (3.5-5.0) g/dL Globulin (2.2-3.9) gm/dL Albumin/Globulin Ratio (1.0-2.1) Triglycerides (0-149) mg/dL Cholesterol (0-199) mg/dL LDL Cholesterol Direct (0-129) mg/dL HDL Cholesterol (30-70) mg/dL Arterial Blood Potassium (3.6-5.2) mmol/L Venous Blood Potassium 4.1 (3.6-5.2) mmol/L Urine Color Brown (YELLOW) Urine Clarity Turbid (Clear) Urine pH 6.0 (5.0-8.0) Ur Specific [place] 1.023 (1.003-1.030) Urine Protein 2+ H (NEGATIVE) mg/dL Urine Glucose (UA) Normal (Normal) mg/dL Urine Ketones Trace (NEGATIVE) mg/dL Urine Blood 3+ H (NEGATIVE) Urine Nitrate Negative (NEGATIVE) Urine Bilirubin Negative (NEGATIVE) Urine Urobilinogen Normal (0.2-1.0) mg/dL Ur Leukocyte Esterase 3+ H (Negative) Annita/uL Urine WBC (Auto) 97985 H (0-5) /hpf Urine RBC (Auto) 2075 H (0-3) /hpf Urine WBC Clumps (Auto) Many H (NONE) /hpf Amorphous Sediment Moderate H (<OCC) /ul Urine Bacteria Mod H (<OCC) Blood Type B POSITIVE Antibody Screen Positive Antibody Identification Non Specific Cold Antibody 03/19/18 03/19/18 03/19/18 Range/Units 14:18 14:18 14:18 WBC (4.8-10.8) K/uL RBC (4.40-5.90) Mil/uL Hgb (12.0-18.0) g/dL Hct (35.0-51.0) % MCV (80.0-94.0) fL MCH (27.0-31.0) pg MCHC (33.0-37.0) g/dL RDW (11.5-14.5) % Plt Count (130-400) K/uL MPV (7.2-11.7) fL Neut % (Auto) (50.0-75.0) % Lymph % (Auto) (20.0-40.0) % [place] % (Auto) (0.0-10.0) % Eos % (Auto) (0.0-4.0) % Baso % (Auto) (0.0-2.0) % Neut # (Auto) (1.8-7.0) K/uL Lymph # (Auto) (1.0-4.3) K/uL [place] # (Auto) (0.0-0.8) K/uL Eos # (Auto) (0.0-0.7) K/uL Baso # (Auto) (0.0-0.2) K/uL Neutrophils % (Manual) (50-75) % Band Neutrophils % (0-2) % Lymphocytes % (Manual) (20-40) % Monocytes % (Manual) (0-10) % Eosinophils % (Manual) (0-4) % Basophils % (Manual) (0-2) % Myelocytes % (0-0) % Nucleated RBC % (0-0) % Platelet Estimate (NORMAL) Basophilic Stippling Anisocytosis (manual) Macrocytosis (manual) PT 10.7 (9.7-12.2) SECONDS INR 1.0 APTT 39 H (21-34) SECONDS Puncture Site pCO2 (35-45) mm/Hg pO2 (30-55) mm/Hg HCO3 (21-28) mmol/L ABG pH (7.35-7.45) ABG Total CO2 (22-28) mmol/L ABG O2 Saturation (95-98) % ABG Base Excess (-2.0-3.0) mmol/L ABG Hemoglobin (11.7-17.4) g/dL ABG Carboxyhemoglobin (0.5-1.5) % POC ABG HHb (Measured) (0.0-5.0) % ABG Methemoglobin (0.0-3.0) % Esvin Test ABG Potassium (3.6-5.2) mmol/L VBG pH (7.32-7.43) VBG pCO2 (40-60) mmHg VBG HCO3 mmol/L VBG Total CO2 (22-28) mmol/L VBG O2 Sat (Calc) (40-65) % VBG Base Excess (0.0-2.0) mmol/L VBG Potassium (3.6-5.2) mmol/L A-a O2 Difference mm/Hg Respiratory Index Hgb O2 Saturation (95.0-98.0) % Glucose (75-110) mg/dl Lactate (0.7-2.1) mmol/L Vent Mode Mechanical Rate FiO2 % Tidal Volume PEEP Inspiratory BiPAP Expiratory BiPAP Crit Value Called To Crit Value Called By Crit Value Read Back Blood Gas Notified Time Sodium 141 (132-148) mmol/L Potassium 4.3 (3.6-5.2) mmol/L Chloride 98 (98-107) mmol/L Carbon Dioxide 32 H (22-30) mmol/L Anion Gap 14 (10-20) BUN 31 H (9-20) mg/dL Creatinine 5.6 H (0.8-1.5) mg/dL Est GFR ( Amer) 12 Est GFR (Non-Af Amer) 10 POC Glucose (mg/dL) (65-110) mg/dL Random Glucose 130 H (75-110) mg/dL Hemoglobin A1c 4.0 L (4.2-6.5) % Calcium 9.0 (8.6-10.4) mg/dl Phosphorus 4.4 (2.5-4.5) mg/dL Magnesium 2.6 H (1.6-2.3) mg/dL Total Bilirubin 0.7 (0.2-1.3) mg/dL AST 17 (17-59) U/L ALT 35 (21-72) U/L Alkaline Phosphatase 90 (38-126) U/L Total Creatine Kinase 26 L (55-170) U/L Troponin I < 0.0120 (0.00-0.120) ng/mL Total Protein 6.1 L (6.3-8.3) g/dL Albumin 3.3 L (3.5-5.0) g/dL Globulin 2.8 (2.2-3.9) gm/dL Albumin/Globulin Ratio 1.2 (1.0-2.1) Triglycerides 136 D (0-149) mg/dL Cholesterol 101 (0-199) mg/dL LDL Cholesterol Direct < 30 (0-129) mg/dL HDL Cholesterol 46 (30-70) mg/dL Arterial Blood Potassium (3.6-5.2) mmol/L Venous Blood Potassium (3.6-5.2) mmol/L Urine Color (YELLOW) Urine Clarity (Clear) Urine pH (5.0-8.0) Ur Specific [place] (1.003-1.030) Urine Protein (NEGATIVE) mg/dL Urine Glucose (UA) (Normal) mg/dL Urine Ketones (NEGATIVE) mg/dL Urine Blood (NEGATIVE) Urine Nitrate (NEGATIVE) Urine Bilirubin (NEGATIVE) Urine Urobilinogen (0.2-1.0) mg/dL Ur Leukocyte Esterase (Negative) Annita/uL Urine WBC (Auto) (0-5) /hpf Urine RBC (Auto) (0-3) /hpf Urine WBC Clumps (Auto) (NONE) /hpf Amorphous Sediment (<OCC) /ul Urine Bacteria (<OCC) Blood Type Antibody Screen Antibody Identification 03/19/18 03/19/18 Range/Units 14:18 13:18 WBC 8.8 D (4.8-10.8) K/uL RBC 3.31 L (4.40-5.90) Mil/uL Hgb 10.9 L (12.0-18.0) g/dL Hct 35.2 (35.0-51.0) % MCV 106.3 H (80.0-94.0) fL MCH 33.1 H (27.0-31.0) pg MCHC 31.1 L (33.0-37.0) g/dL RDW 19.7 H (11.5-14.5) % Plt Count 108 L (130-400) K/uL MPV 8.9 (7.2-11.7) fL Neut % (Auto) 80.3 H (50.0-75.0) % Lymph % (Auto) 8.4 L (20.0-40.0) % [place] % (Auto) 6.1 (0.0-10.0) % Eos % (Auto) 4.4 H (0.0-4.0) % Baso % (Auto) 0.8 (0.0-2.0) % Neut # (Auto) 7.1 H (1.8-7.0) K/uL Lymph # (Auto) 0.7 L (1.0-4.3) K/uL [place] # (Auto) 0.5 (0.0-0.8) K/uL Eos # (Auto) 0.4 (0.0-0.7) K/uL Baso # (Auto) 0.1 (0.0-0.2) K/uL Neutrophils % (Manual) 81 H (50-75) % Band Neutrophils % 3 H (0-2) % Lymphocytes % (Manual) 6 L (20-40) % Monocytes % (Manual) 6 (0-10) % Eosinophils % (Manual) 2 (0-4) % Basophils % (Manual) 1 (0-2) % Myelocytes % 1 H (0-0) % Nucleated RBC % 2 H (0-0) % Platelet Estimate Slightly decreased L (NORMAL) Basophilic Stippling Slight Anisocytosis (manual) Moderate Macrocytosis (manual) Moderate PT (9.7-12.2) SECONDS INR APTT (21-34) SECONDS Puncture Site pCO2 (35-45) mm/Hg pO2 (30-55) mm/Hg HCO3 (21-28) mmol/L ABG pH (7.35-7.45) ABG Total CO2 (22-28) mmol/L ABG O2 Saturation (95-98) % ABG Base Excess (-2.0-3.0) mmol/L ABG Hemoglobin (11.7-17.4) g/dL ABG Carboxyhemoglobin (0.5-1.5) % POC ABG HHb (Measured) (0.0-5.0) % ABG Methemoglobin (0.0-3.0) % Esvin Test ABG Potassium (3.6-5.2) mmol/L VBG pH (7.32-7.43) VBG pCO2 (40-60) mmHg VBG HCO3 mmol/L VBG Total CO2 (22-28) mmol/L VBG O2 Sat (Calc) (40-65) % VBG Base Excess (0.0-2.0) mmol/L VBG Potassium (3.6-5.2) mmol/L A-a O2 Difference mm/Hg Respiratory Index Hgb O2 Saturation (95.0-98.0) % Glucose (75-110) mg/dl Lactate (0.7-2.1) mmol/L Vent Mode Mechanical Rate FiO2 % Tidal Volume PEEP Inspiratory BiPAP Expiratory BiPAP Crit Value Called To Crit Value Called By Crit Value Read Back Blood Gas Notified Time Sodium (132-148) mmol/L Potassium (3.6-5.2) mmol/L Chloride (98-107) mmol/L Carbon Dioxide (22-30) mmol/L Anion Gap (10-20) BUN (9-20) mg/dL Creatinine (0.8-1.5) mg/dL Est GFR ( Amer) Est GFR (Non-Af Amer) POC Glucose (mg/dL) 131 H (65-110) mg/dL Random Glucose (75-110) mg/dL Hemoglobin A1c (4.2-6.5) % Calcium (8.6-10.4) mg/dl Phosphorus (2.5-4.5) mg/dL Magnesium (1.6-2.3) mg/dL Total Bilirubin (0.2-1.3) mg/dL AST (17-59) U/L ALT (21-72) U/L Alkaline Phosphatase (38-126) U/L Total Creatine Kinase (55-170) U/L Troponin I (0.00-0.120) ng/mL Total Protein (6.3-8.3) g/dL Albumin (3.5-5.0) g/dL Globulin (2.2-3.9) gm/dL Albumin/Globulin Ratio (1.0-2.1) Triglycerides (0-149) mg/dL Cholesterol (0-199) mg/dL LDL Cholesterol Direct (0-129) mg/dL HDL Cholesterol (30-70) mg/dL Arterial Blood Potassium (3.6-5.2) mmol/L Venous Blood Potassium (3.6-5.2) mmol/L Urine Color (YELLOW) Urine Clarity (Clear) Urine pH (5.0-8.0) Ur Specific [place] (1.003-1.030) Urine Protein (NEGATIVE) mg/dL Urine Glucose (UA) (Normal) mg/dL Urine Ketones (NEGATIVE) mg/dL Urine Blood (NEGATIVE) Urine Nitrate (NEGATIVE) Urine Bilirubin (NEGATIVE) Urine Urobilinogen (0.2-1.0) mg/dL Ur Leukocyte Esterase (Negative) Annita/uL Urine WBC (Auto) (0-5) /hpf Urine RBC (Auto) (0-3) /hpf Urine WBC Clumps (Auto) (NONE) /hpf Amorphous Sediment (<OCC) /ul Urine Bacteria (<OCC) Blood Type Antibody Screen Antibody Identification Laboratory Results - last 24 hr 03/19/18 03/19/18 03/19/18 13:18 14:18 14:18 WBC 8.8 D RBC 3.31 L Hgb 10.9 L Hct 35.2 MCV 106.3 H MCH 33.1 H MCHC 31.1 L RDW 19.7 H Plt Count 108 L MPV 8.9 Neut % (Auto) 80.3 H Lymph % (Auto) 8.4 L [place] % (Auto) 6.1 Eos % (Auto) 4.4 H Baso % (Auto) 0.8 Neut # (Auto) 7.1 H Lymph # (Auto) 0.7 L [place] # (Auto) 0.5 Eos # (Auto) 0.4 Baso # (Auto) 0.1 Neutrophils % (Manual) 81 H Band Neutrophils % 3 H Lymphocytes % (Manual) 6 L Monocytes % (Manual) 6 Eosinophils % (Manual) 2 Basophils % (Manual) 1 Myelocytes % 1 H Nucleated RBC % 2 H Platelet Estimate Slightly decreased L Basophilic Stippling Slight Anisocytosis (manual) Moderate Macrocytosis (manual) Moderate PT 10.7 INR 1.0 APTT 39 H Puncture Site pCO2 pO2 HCO3 ABG pH ABG Total CO2 ABG O2 Saturation ABG Base Excess ABG Hemoglobin ABG Carboxyhemoglobin POC ABG HHb (Measured) ABG Methemoglobin Esvin Test ABG Potassium VBG pH VBG pCO2 VBG HCO3 VBG Total CO2 VBG O2 Sat (Calc) VBG Base Excess VBG Potassium A-a O2 Difference Respiratory Index Hgb O2 Saturation Glucose Lactate Vent Mode Mechanical Rate FiO2 Tidal Volume PEEP Inspiratory BiPAP Expiratory BiPAP Crit Value Called To Crit Value Called By Crit Value Read Back Blood Gas Notified Time Sodium Potassium Chloride Carbon Dioxide Anion Gap BUN Creatinine Est GFR ( Amer) Est GFR (Non-Af Amer) POC Glucose (mg/dL) 131 H Random Glucose Hemoglobin A1c Calcium Phosphorus Magnesium Total Bilirubin AST ALT Alkaline Phosphatase Total Creatine Kinase Troponin I Total Protein Albumin Globulin Albumin/Globulin Ratio Triglycerides Cholesterol LDL Cholesterol Direct HDL Cholesterol Arterial Blood Potassium Venous Blood Potassium Urine Color Urine Clarity Urine pH Ur Specific [place] Urine Protein Urine Glucose (UA) Urine Ketones Urine Blood Urine Nitrate Urine Bilirubin Urine Urobilinogen Ur Leukocyte Esterase Urine WBC (Auto) Urine RBC (Auto) Urine WBC Clumps (Auto) Amorphous Sediment Urine Bacteria Blood Type Antibody Screen Antibody Identification 03/19/18 03/19/18 03/19/18 14:18 14:18 14:20 WBC RBC Hgb Hct MCV MCH MCHC RDW Plt Count MPV Neut % (Auto) Lymph % (Auto) [place] % (Auto) Eos % (Auto) Baso % (Auto) Neut # (Auto) Lymph # (Auto) [place] # (Auto) Eos # (Auto) Baso # (Auto) Neutrophils % (Manual) Band Neutrophils % Lymphocytes % (Manual) Monocytes % (Manual) Eosinophils % (Manual) Basophils % (Manual) Myelocytes % Nucleated RBC % Platelet Estimate Basophilic Stippling Anisocytosis (manual) Macrocytosis (manual) PT INR APTT Puncture Site pCO2 pO2 78 H HCO3 ABG pH ABG Total CO2 ABG O2 Saturation ABG Base Excess ABG Hemoglobin ABG Carboxyhemoglobin POC ABG HHb (Measured) ABG Methemoglobin Esvin Test ABG Potassium VBG pH 7.11 L* VBG pCO2 108 H* VBG HCO3 25.7 VBG Total CO2 37.6 H VBG O2 Sat (Calc) 96.9 H VBG Base Excess 1.3 VBG Potassium 4.1 A-a O2 Difference Respiratory Index Hgb O2 Saturation Glucose 127 H Lactate 0.6 L Vent Mode Mechanical Rate FiO2 21.0 Tidal Volume PEEP Inspiratory BiPAP Expiratory BiPAP Crit Value Called To Er physician Crit Value Called By Mahendra Crit Value Read Back Y Blood Gas Notified Time 1425 Sodium 141 138.0 Potassium 4.3 Chloride 98 102.0 Carbon Dioxide 32 H Anion Gap 14 BUN 31 H Creatinine 5.6 H Est GFR ( Amer) 12 Est GFR (Non-Af Amer) 10 POC Glucose (mg/dL) Random Glucose 130 H Hemoglobin A1c 4.0 L Calcium 9.0 Phosphorus 4.4 Magnesium 2.6 H Total Bilirubin 0.7 AST 17 ALT 35 Alkaline Phosphatase 90 Total Creatine Kinase 26 L Troponin I < 0.0120 Total Protein 6.1 L Albumin 3.3 L Globulin 2.8 Albumin/Globulin Ratio 1.2 Triglycerides 136 D Cholesterol 101 LDL Cholesterol Direct < 30 HDL Cholesterol 46 Arterial Blood Potassium Venous Blood Potassium 4.1 Urine Color Urine Clarity Urine pH Ur Specific [place] Urine Protein Urine Glucose (UA) Urine Ketones Urine Blood Urine Nitrate Urine Bilirubin Urine Urobilinogen Ur Leukocyte Esterase Urine WBC (Auto) Urine RBC (Auto) Urine WBC Clumps (Auto) Amorphous Sediment Urine Bacteria Blood Type Antibody Screen Antibody Identification 03/19/18 03/19/18 03/19/18 14:50 15:45 16:42 WBC RBC Hgb Hct MCV MCH MCHC RDW Plt Count MPV Neut % (Auto) Lymph % (Auto) [place] % (Auto) Eos % (Auto) Baso % (Auto) Neut # (Auto) Lymph # (Auto) [place] # (Auto) Eos # (Auto) Baso # (Auto) Neutrophils % (Manual) Band Neutrophils % Lymphocytes % (Manual) Monocytes % (Manual) Eosinophils % (Manual) Basophils % (Manual) Myelocytes % Nucleated RBC % Platelet Estimate Basophilic Stippling Anisocytosis (manual) Macrocytosis (manual) PT INR APTT Puncture Site pCO2 pO2 HCO3 ABG pH ABG Total CO2 ABG O2 Saturation ABG Base Excess ABG Hemoglobin ABG Carboxyhemoglobin POC ABG HHb (Measured) ABG Methemoglobin Esvin Test ABG Potassium VBG pH VBG pCO2 VBG HCO3 VBG Total CO2 VBG O2 Sat (Calc) VBG Base Excess VBG Potassium A-a O2 Difference Respiratory Index Hgb O2 Saturation Glucose Lactate Vent Mode Mechanical Rate FiO2 Tidal Volume PEEP Inspiratory BiPAP Expiratory BiPAP Crit Value Called To Crit Value Called By Crit Value Read Back Blood Gas Notified Time Sodium Potassium Chloride Carbon Dioxide Anion Gap BUN Creatinine Est GFR ( Amer) Est GFR (Non-Af Amer) POC Glucose (mg/dL) 123 H Random Glucose Hemoglobin A1c Calcium Phosphorus Magnesium Total Bilirubin AST ALT Alkaline Phosphatase Total Creatine Kinase Troponin I Total Protein Albumin Globulin Albumin/Globulin Ratio Triglycerides Cholesterol LDL Cholesterol Direct HDL Cholesterol Arterial Blood Potassium Venous Blood Potassium Urine Color Brown Urine Clarity Turbid Urine pH 6.0 Ur Specific [place] 1.023 Urine Protein 2+ H Urine Glucose (UA) Normal Urine Ketones Trace Urine Blood 3+ H Urine Nitrate Negative Urine Bilirubin Negative Urine Urobilinogen Normal Ur Leukocyte Esterase 3+ H Urine WBC (Auto) 99438 H Urine RBC (Auto) 2075 H Urine WBC Clumps (Auto) Many H Amorphous Sediment Moderate H Urine Bacteria Mod H Blood Type B POSITIVE Antibody Screen Positive Antibody Identification Non Specific Cold Antibody 03/19/18 03/19/18 03/19/18 17:05 19:03 21:14 WBC RBC Hgb Hct MCV MCH MCHC RDW Plt Count MPV Neut % (Auto) Lymph % (Auto) [place] % (Auto) Eos % (Auto) Baso % (Auto) Neut # (Auto) Lymph # (Auto) [place] # (Auto) Eos # (Auto) Baso # (Auto) Neutrophils % (Manual) Band Neutrophils % Lymphocytes % (Manual) Monocytes % (Manual) Eosinophils % (Manual) Basophils % (Manual) Myelocytes % Nucleated RBC % Platelet Estimate Basophilic Stippling Anisocytosis (manual) Macrocytosis (manual) PT INR APTT Puncture Site Rba Rba pCO2 102 H* 52 H pO2 56 L 287 H HCO3 25.5 29.8 H ABG pH 7.13 L* 7.40 ABG Total CO2 37.0 H 33.8 H ABG O2 Saturation 91.6 L 99.8 H ABG Base Excess 1.4 6.3 H ABG Hemoglobin 10.7 L ABG Carboxyhemoglobin 2.3 H POC ABG HHb (Measured) 0.2 ABG Methemoglobin 1.1 Esvin Test Na Na ABG Potassium 3.9 VBG pH VBG pCO2 VBG HCO3 VBG Total CO2 VBG O2 Sat (Calc) VBG Base Excess VBG Potassium A-a O2 Difference 102.0 361.0 Respiratory Index 1.8 1.3 Hgb O2 Saturation 96.3 Glucose 107 Lactate 0.5 L Vent Mode Prvc Mechanical Rate 18 FiO2 40.0 100.0 Tidal Volume 500 PEEP 5 Inspiratory BiPAP 16 Expiratory BiPAP 8 Crit Value Called To Jett carbone Crit Value Called By Navneet Crit Value Read Back Y Blood Gas Notified Time 1708 Sodium 139.0 Potassium Chloride 104.0 Carbon Dioxide Anion Gap BUN Creatinine Est GFR ( Amer) Est GFR (Non-Af Amer) POC Glucose (mg/dL) 63 L Random Glucose Hemoglobin A1c Calcium Phosphorus Magnesium Total Bilirubin AST ALT Alkaline Phosphatase Total Creatine Kinase Troponin I Total Protein Albumin Globulin Albumin/Globulin Ratio Triglycerides Cholesterol LDL Cholesterol Direct HDL Cholesterol Arterial Blood Potassium 3.9 Venous Blood Potassium Urine Color Urine Clarity Urine pH Ur Specific [place] Urine Protein Urine Glucose (UA) Urine Ketones Urine Blood Urine Nitrate Urine Bilirubin Urine Urobilinogen Ur Leukocyte Esterase Urine WBC (Auto) Urine RBC (Auto) Urine WBC Clumps (Auto) Amorphous Sediment Urine Bacteria Blood Type Antibody Screen Antibody Identification 03/19/18 03/19/18 03/20/18 21:15 23:55 05:27 WBC RBC Hgb Hct MCV MCH MCHC RDW Plt Count MPV Neut % (Auto) Lymph % (Auto) [place] % (Auto) Eos % (Auto) Baso % (Auto) Neut # (Auto) Lymph # (Auto) [place] # (Auto) Eos # (Auto) Baso # (Auto) Neutrophils % (Manual) Band Neutrophils % Lymphocytes % (Manual) Monocytes % (Manual) Eosinophils % (Manual) Basophils % (Manual) Myelocytes % Nucleated RBC % Platelet Estimate Basophilic Stippling Anisocytosis (manual) Macrocytosis (manual) PT INR APTT Puncture Site Rr pCO2 42 pO2 128 H HCO3 28.0 ABG pH 7.44 ABG Total CO2 29.8 H ABG O2 Saturation 99.0 H ABG Base Excess 3.9 H ABG Hemoglobin 9.6 L ABG Carboxyhemoglobin 1.8 H POC ABG HHb (Measured) 1.0 ABG Methemoglobin 1.4 Esvin Test Pos ABG Potassium VBG pH VBG pCO2 VBG HCO3 VBG Total CO2 VBG O2 Sat (Calc) VBG Base Excess VBG Potassium A-a O2 Difference 176.0 Respiratory Index 1.4 Hgb O2 Saturation 95.7 Glucose Lactate Vent Mode Prvc Mechanical Rate 18 FiO2 50.0 Tidal Volume 500 PEEP 5 Inspiratory BiPAP Expiratory BiPAP Crit Value Called To Crit Value Called By Crit Value Read Back Blood Gas Notified Time Sodium Potassium Chloride Carbon Dioxide Anion Gap BUN Creatinine Est GFR ( Amer) Est GFR (Non-Af Amer) POC Glucose (mg/dL) 73 79 Random Glucose Hemoglobin A1c Calcium Phosphorus Magnesium Total Bilirubin AST ALT Alkaline Phosphatase Total Creatine Kinase Troponin I Total Protein Albumin Globulin Albumin/Globulin Ratio Triglycerides Cholesterol LDL Cholesterol Direct HDL Cholesterol Arterial Blood Potassium Venous Blood Potassium Urine Color Urine Clarity Urine pH Ur Specific [place] Urine Protein Urine Glucose (UA) Urine Ketones Urine Blood Urine Nitrate Urine Bilirubin Urine Urobilinogen Ur Leukocyte Esterase Urine WBC (Auto) Urine RBC (Auto) Urine WBC Clumps (Auto) Amorphous Sediment Urine Bacteria Blood Type Antibody Screen Antibody Identification 03/20/18 03/20/18 06:54 06:54 WBC 7.6 RBC 3.03 L Hgb 10.0 L Hct 31.6 L MCV 104.4 H MCH 33.0 H MCHC 31.7 L RDW 18.7 H Plt Count 90 L MPV 8.8 Neut % (Auto) 77.3 H Lymph % (Auto) 8.2 L [place] % (Auto) 5.6 Eos % (Auto) 8.2 H Baso % (Auto) 0.7 Neut # (Auto) 5.9 Lymph # (Auto) 0.6 L [place] # (Auto) 0.4 Eos # (Auto) 0.6 Baso # (Auto) 0.1 Neutrophils % (Manual) 80 H Band Neutrophils % 1 Lymphocytes % (Manual) 8 L Monocytes % (Manual) 3 Eosinophils % (Manual) 8 H Basophils % (Manual) Myelocytes % Nucleated RBC % 4 H Platelet Estimate Decreased L Basophilic Stippling Slight Anisocytosis (manual) Moderate Macrocytosis (manual) Moderate PT INR APTT Puncture Site pCO2 pO2 HCO3 ABG pH ABG Total CO2 ABG O2 Saturation ABG Base Excess ABG Hemoglobin ABG Carboxyhemoglobin POC ABG HHb (Measured) ABG Methemoglobin Esvin Test ABG Potassium VBG pH VBG pCO2 VBG HCO3 VBG Total CO2 VBG O2 Sat (Calc) VBG Base Excess VBG Potassium A-a O2 Difference Respiratory Index Hgb O2 Saturation Glucose Lactate Vent Mode Mechanical Rate FiO2 Tidal Volume PEEP Inspiratory BiPAP Expiratory BiPAP Crit Value Called To Crit Value Called By Crit Value Read Back Blood Gas Notified Time Sodium 142 Potassium 3.0 L Chloride 103 Carbon Dioxide 30 Anion Gap 12 BUN 17 Creatinine 3.1 H Est GFR ( Amer) 25 Est GFR (Non-Af Amer) 20 POC Glucose (mg/dL) Random Glucose 86 Hemoglobin A1c Calcium 9.0 Phosphorus 0.8 L* Magnesium 2.2 Total Bilirubin 0.8 AST 21 ALT 31 Alkaline Phosphatase 91 Total Creatine Kinase Troponin I Total Protein 5.5 L Albumin 3.1 L Globulin 2.4 Albumin/Globulin Ratio 1.3 Triglycerides Cholesterol LDL Cholesterol Direct HDL Cholesterol Arterial Blood Potassium Venous Blood Potassium Urine Color Urine Clarity Urine pH Ur Specific [place] Urine Protein Urine Glucose (UA) Urine Ketones Urine Blood Urine Nitrate Urine Bilirubin Urine Urobilinogen Ur Leukocyte Esterase Urine WBC (Auto) Urine RBC (Auto) Urine WBC Clumps (Auto) Amorphous Sediment Urine Bacteria Blood Type Antibody Screen Antibody Identification EKG/Cardiology Studies: Cardiology / EKG Studies 03/19/18 13:20 ELECTROCARDIOGRAM Stat Comment: Mode Of Transportation: BED Reason For Exam: code stroke 03/19/18 13:57 EKG [ELECTROCARDIOGRAM] Stat Comment: Mode Of Transportation: BED Reason For Exam: repeat Attending/Attestation - Attestation I have personally seen and examined this patient.: Yes I have fully participated in the care of the patient.: Yes I have reviewed all pertinent clinical information: Yes Notes (Text): 03/20/18 13:39 I have seen and examined the patient. Medical records, lab studies, and imaging were reviewed by me and a management plan was formulated on multidisciplinary rounds with resident Dr. Casas. I agree with their documented assessment and plan. Patient is in acute respiratory failure with severe sepsis, secondary pneumonia , possible parapneumonic effusion. Transition patient to precedex, to allow to be more alert. Hopefully we can perform a PS trial, to assess for weaning. Will obtain CT chest, patient may need pigtail catheter for drainage. Critical Care Time 35 minutes. Multi-disciplinary rounds were performed with house staff, nursing, speech therapy, respiratory therapy, pharmacy and nutrition with integrated input from the primary team/attending and other consulting services. The documented time is cumulative and includes review of patient data/exams/labs/chart review and examination of the patient on rounds and throughout the day; time is exclusive of any procedures or teaching time.
--- NOTE | 2018-03-20 15:15 | CP.PCM.CON ---
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 Patient found to be in respiratory distress with high CO2 retention - failed bipap and was intubated. Presentation likely secondary to severe sepsis. He was recently admitted for sepsis 2/2 UTI and discharged on 03/15. On evaluation, patent is altered and unable to provide history. As per prior note, patient has prior left upper extremity and bilateral lower extremity deficit from prior CVA. Last known to be at baseline normal mentation 03/18/18. Information obtained from prior records as patient is sedated on ventilator and unable to provide history. PMD: Dr. Carlos Andrews PMH: anemia, asthma, CHF, COPD, CVA affecting left side, depression, HTN, hypercholesterolemia, ESRD on HD, sleep apnea PSH: CABG, dual chamber pacemaker Allergies: Iodine, Clopidogrel, PCN, IV Dye Social history: no alcohol, tobacco or drug abuse. Home meds: Tramadol, Ambien, Renvela, Miralax, Zofran, Midodrine, Lisinopril, Lactulose, Humulin, Gabapentin, Lasix, NephroVite, Ferrous sulfate, Colace, Atorvastatin, ASA, Xanax Review of Systems - Review of Systems Systems not reviewed;Unavailable: Intubated Past Patient History - Infectious Disease Hx of Infectious Diseases: None - Past Medical History & Family History Past Medical History?: Yes - Past Social History Smoking Status: Never Smoked - CARDIAC Hx Congestive Heart Failure: Yes Hx Hypercholesterolemia: Yes Hx Hypertension: Yes Hx Pacemaker: Yes Hx Peripheral Edema: Yes - PULMONARY Hx Asthma: Yes Hx Chronic Obstructive Pulmonary Disease (COPD): Yes Hx Sleep Apnea: Yes - NEUROLOGICAL HX Cerebrovascular Accident: Yes (L UE AND B/L LE WEAKNESS) - HEENT Hx HEENT Problems: Yes Hx Cataracts: Yes - RENAL Hx Chronic Kidney Disease: Yes - ENDOCRINE/METABOLIC Hx Diabetes Mellitus Type 2: Yes - HEMATOLOGICAL/ONCOLOGICAL Hx Anemia: Yes - INTEGUMENTARY Hx Dermatological Problems: Yes Other/Comment: healed sacral ulcer - MUSCULOSKELETAL/RHEUMATOLOGICAL Hx Falls: Yes - GASTROINTESTINAL Hx Gastrointestinal Disorders: Yes Other/Comment: HX: DYSPHAGIA,UNSPECIFIED - GENITOURINARY/GYNECOLOGICAL Hx Genitourinary Disorders: No - PSYCHIATRIC Hx Depression: Yes ('MAJOR DEPRESSIVE DISORDER,SINGLE EPISODE,UNSPECIFIED") Hx Substance Use: No - SURGICAL HISTORY Hx Coronary Artery Bypass Graft: Yes - ANESTHESIA Hx Anesthesia: Yes Hx Anesthesia Reactions: No Hx Malignant Hyperthermia: No Meds Allergies/Adverse Reactions: Allergies Allergy/AdvReac Type Severity Reaction Status Date / Time iodine Allergy Intermediate RASH Verified 03/19/18 13:17 clopidogrel [From Plavix] Allergy SHORTNESS Verified 03/19/18 13:17 OF BREATH clopidogrel bisulfate Allergy UNKNOWN Verified 03/19/18 13:17 [From Plavix] penicillin G Allergy SHORTNESS Verified 03/19/18 13:17 OF BREATH Penicillins Allergy UNKNOWN Verified 03/19/18 13:17 IV DYE Allergy unknown Uncoded 03/19/18 13:17 - Medications Medications: Current Medications Acetaminophen (Tylenol 650 Mg Supp) 650 mg [place] Q6 PRN PRN Reason: Fever >100.4 F Last Admin: 03/20/18 10:30 Dose: 650 mg Aspirin (Aspirin Chewable) 81 mg PO DAILY [facility] Last Admin: 03/20/18 11:21 Dose: 81 mg Epoetin Mario (Procrit) 4,000 unit IV TTS [facility] Last Admin: 03/19/18 20:51 Dose: 4,000 unit Heparin Sodium (Porcine) (Heparin) 5,000 units SC Q12 [facility] Aztreonam 1 gm/ Sodium (Chloride) 100 mls @ 100 mls/hr IVPB Q24H [facility] PRN Reason: Protocol Last Admin: 03/19/18 23:00 Dose: 100 mls/hr Tigecycline 50 mg/ Sodium (Chloride) 100 mls @ 100 mls/hr IVPB Q12H [facility] PRN Reason: Protocol Dexmedetomidine HCl 200 mcg/ (Sodium Chloride) 50 mls @ 4.08 mls/hr IV TITR PRN ; Protocol; 0.2 MCG/KG/HR PRN Reason: Agitation Pantoprazole Sodium (Protonix Inj) 40 mg IVP DAILY [facility] Last Admin: 03/20/18 11:21 Dose: 40 mg Paricalcitol (Zemplar) 2 mcg IV TTS [facility] Last Admin: 03/19/18 20:52 Dose: 2 mcg Physical Exam - Constitutional Appears: Toxic, In Acute Distress - Head Exam Head Exam: ATRAUMATIC, NORMAL INSPECTION - Eye Exam Eye Exam: EOMI, PERRL - ENT Exam ENT Exam: Mucous Membranes Moist - Neck Exam Neck exam: Positive for: Normal Inspection - Respiratory Exam Respiratory Exam: Decreased Breath Sounds, Rales, Rhonchi, Wheezes, Respiratory Distress - Cardiovascular Exam Cardiovascular Exam: JVD, +S1, +S2. absent: Tachycardia - GI/Abdominal Exam GI & Abdominal Exam: Normal Bowel Sounds, Soft. absent: Diminished Bowel Sounds , Distended - Extremities Exam Extremities exam: Positive for: normal inspection, pedal edema - Neurological Exam Additional comments: Pupils sluggish to light Patient responsive to verbal commands and responsive to painful stimuli Unable to perform full neuro exam and patient still altered 2/2 sedation however it seems patient neurologically improving - Skin Skin Exam: Dry, Intact, Warm Results - Vital Signs Recent Vital Signs: Last Vital Signs Temp 98.4 F 03/19/18 22:55 Pulse 80 03/20/18 13:05 Resp 18 03/20/18 13:05 BP 156/32 H 03/20/18 13:05 Pulse Ox 100 03/20/18 13:00 - Labs Result Diagrams: 03/20/18 06:54 03/20/18 06:54 Labs: Laboratory Results - last 24 hr 03/19/18 03/19/18 03/19/18 13:18 14:50 15:45 WBC RBC Hgb Hct MCV MCH MCHC RDW Plt Count MPV Neut % (Auto) Lymph % (Auto) [place] % (Auto) Eos % (Auto) Baso % (Auto) Neut # (Auto) Lymph # (Auto) [place] # (Auto) Eos # (Auto) Baso # (Auto) Neutrophils % (Manual) Band Neutrophils % Lymphocytes % (Manual) Monocytes % (Manual) Eosinophils % (Manual) Nucleated RBC % Platelet Estimate Basophilic Stippling Anisocytosis (manual) Macrocytosis (manual) Puncture Site pCO2 pO2 HCO3 ABG pH ABG Total CO2 ABG O2 Saturation ABG Base Excess ABG Hemoglobin ABG Carboxyhemoglobin POC ABG HHb (Measured) ABG Methemoglobin Esvin Test ABG Potassium A-a O2 Difference Respiratory Index Hgb O2 Saturation Sodium Chloride Glucose Lactate Vent Mode Mechanical Rate FiO2 Tidal Volume PEEP Inspiratory BiPAP Expiratory BiPAP Crit Value Called To Crit Value Called By Crit Value Read Back Blood Gas Notified Time Potassium Carbon Dioxide Anion Gap BUN Creatinine Est GFR ( Amer) Est GFR (Non-Af Amer) POC Glucose (mg/dL) 131 H Random Glucose Calcium Phosphorus Magnesium Total Bilirubin AST ALT Alkaline Phosphatase Total Protein Albumin Globulin Albumin/Globulin Ratio Arterial Blood Potassium Urine Color Brown Urine Clarity Turbid Urine pH 6.0 Ur Specific [place] 1.023 Urine Protein 2+ H Urine Glucose (UA) Normal Urine Ketones Trace Urine Blood 3+ H Urine Nitrate Negative Urine Bilirubin Negative Urine Urobilinogen Normal Ur Leukocyte Esterase 3+ H Urine WBC (Auto) 26068 H Urine RBC (Auto) 2075 H Urine WBC Clumps (Auto) Many H Amorphous Sediment Moderate H Urine Bacteria Mod H Blood Type B POSITIVE Antibody Screen Positive Antibody Identification Non Specific Cold Antibody 03/19/18 03/19/18 03/19/18 16:42 17:05 19:03 WBC RBC Hgb Hct MCV MCH MCHC RDW Plt Count MPV Neut % (Auto) Lymph % (Auto) [place] % (Auto) Eos % (Auto) Baso % (Auto) Neut # (Auto) Lymph # (Auto) [place] # (Auto) Eos # (Auto) Baso # (Auto) Neutrophils % (Manual) Band Neutrophils % Lymphocytes % (Manual) Monocytes % (Manual) Eosinophils % (Manual) Nucleated RBC % Platelet Estimate Basophilic Stippling Anisocytosis (manual) Macrocytosis (manual) Puncture Site Rba Rba pCO2 102 H* 52 H pO2 56 L 287 H HCO3 25.5 29.8 H ABG pH 7.13 L* 7.40 ABG Total CO2 37.0 H 33.8 H ABG O2 Saturation 91.6 L 99.8 H ABG Base Excess 1.4 6.3 H ABG Hemoglobin 10.7 L ABG Carboxyhemoglobin 2.3 H POC ABG HHb (Measured) 0.2 ABG Methemoglobin 1.1 Esvin Test Na Na ABG Potassium 3.9 A-a O2 Difference 102.0 361.0 Respiratory Index 1.8 1.3 Hgb O2 Saturation 96.3 Sodium 139.0 Chloride 104.0 Glucose 107 Lactate 0.5 L Vent Mode Prvc Mechanical Rate 18 FiO2 40.0 100.0 Tidal Volume 500 PEEP 5 Inspiratory BiPAP 16 Expiratory BiPAP 8 Crit Value Called To Jett carbone Crit Value Called By Navneet Crit Value Read Back Y Blood Gas Notified Time 1708 Potassium Carbon Dioxide Anion Gap BUN Creatinine Est GFR ( Amer) Est GFR (Non-Af Amer) POC Glucose (mg/dL) 123 H Random Glucose Calcium Phosphorus Magnesium Total Bilirubin AST ALT Alkaline Phosphatase Total Protein Albumin Globulin Albumin/Globulin Ratio Arterial Blood Potassium 3.9 Urine Color Urine Clarity Urine pH Ur Specific [place] Urine Protein Urine Glucose (UA) Urine Ketones Urine Blood Urine Nitrate Urine Bilirubin Urine Urobilinogen Ur Leukocyte Esterase Urine WBC (Auto) Urine RBC (Auto) Urine WBC Clumps (Auto) Amorphous Sediment Urine Bacteria Blood Type Antibody Screen Antibody Identification 03/19/18 03/19/18 03/19/18 21:14 21:15 23:55 WBC RBC Hgb Hct MCV MCH MCHC RDW Plt Count MPV Neut % (Auto) Lymph % (Auto) [place] % (Auto) Eos % (Auto) Baso % (Auto) Neut # (Auto) Lymph # (Auto) [place] # (Auto) Eos # (Auto) Baso # (Auto) Neutrophils % (Manual) Band Neutrophils % Lymphocytes % (Manual) Monocytes % (Manual) Eosinophils % (Manual) Nucleated RBC % Platelet Estimate Basophilic Stippling Anisocytosis (manual) Macrocytosis (manual) Puncture Site pCO2 pO2 HCO3 ABG pH ABG Total CO2 ABG O2 Saturation ABG Base Excess ABG Hemoglobin ABG Carboxyhemoglobin POC ABG HHb (Measured) ABG Methemoglobin Esvin Test ABG Potassium A-a O2 Difference Respiratory Index Hgb O2 Saturation Sodium Chloride Glucose Lactate Vent Mode Mechanical Rate FiO2 Tidal Volume PEEP Inspiratory BiPAP Expiratory BiPAP Crit Value Called To Crit Value Called By Crit Value Read Back Blood Gas Notified Time Potassium Carbon Dioxide Anion Gap BUN Creatinine Est GFR ( Amer) Est GFR (Non-Af Amer) POC Glucose (mg/dL) 63 L 73 79 Random Glucose Calcium Phosphorus Magnesium Total Bilirubin AST ALT Alkaline Phosphatase Total Protein Albumin Globulin Albumin/Globulin Ratio Arterial Blood Potassium Urine Color Urine Clarity Urine pH Ur Specific [place] Urine Protein Urine Glucose (UA) Urine Ketones Urine Blood Urine Nitrate Urine Bilirubin Urine Urobilinogen Ur Leukocyte Esterase Urine WBC (Auto) Urine RBC (Auto) Urine WBC Clumps (Auto) Amorphous Sediment Urine Bacteria Blood Type Antibody Screen Antibody Identification 03/20/18 03/20/1818 05:27 06:54 06:54 WBC 7.6 RBC 3.03 L Hgb 10.0 L Hct 31.6 L MCV 104.4 H MCH 33.0 H MCHC 31.7 L RDW 18.7 H Plt Count 90 L MPV 8.8 Neut % (Auto) 77.3 H Lymph % (Auto) 8.2 L [place] % (Auto) 5.6 Eos % (Auto) 8.2 H Baso % (Auto) 0.7 Neut # (Auto) 5.9 Lymph # (Auto) 0.6 L [place] # (Auto) 0.4 Eos # (Auto) 0.6 Baso # (Auto) 0.1 Neutrophils % (Manual) 80 H Band Neutrophils % 1 Lymphocytes % (Manual) 8 L Monocytes % (Manual) 3 Eosinophils % (Manual) 8 H Nucleated RBC % 4 H Platelet Estimate Decreased L Basophilic Stippling Slight Anisocytosis (manual) Moderate Macrocytosis (manual) Moderate Puncture Site Rr pCO2 42 pO2 128 H HCO3 28.0 ABG pH 7.44 ABG Total CO2 29.8 H ABG O2 Saturation 99.0 H ABG Base Excess 3.9 H ABG Hemoglobin 9.6 L ABG Carboxyhemoglobin 1.8 H POC ABG HHb (Measured) 1.0 ABG Methemoglobin 1.4 Esvin Test Pos ABG Potassium A-a O2 Difference 176.0 Respiratory Index 1.4 Hgb O2 Saturation 95.7 Sodium 142 Chloride 103 Glucose Lactate Vent Mode Prvc Mechanical Rate 18 FiO2 50.0 Tidal Volume 500 PEEP 5 Inspiratory BiPAP Expiratory BiPAP Crit Value Called To Crit Value Called By Crit Value Read Back Blood Gas Notified Time Potassium 3.0 L Carbon Dioxide 30 Anion Gap 12 BUN 17 Creatinine 3.1 H Est GFR ( Amer) 25 Est GFR (Non-Af Amer) 20 POC Glucose (mg/dL) Random Glucose 86 Calcium 9.0 Phosphorus 0.8 L* Magnesium 2.2 Total Bilirubin 0.8 AST 21 ALT 31 Alkaline Phosphatase 91 Total Protein 5.5 L Albumin 3.1 L Globulin 2.4 Albumin/Globulin Ratio 1.3 Arterial Blood Potassium Urine Color Urine Clarity Urine pH Ur Specific [place] Urine Protein Urine Glucose (UA) Urine Ketones Urine Blood Urine Nitrate Urine Bilirubin Urine Urobilinogen Ur Leukocyte Esterase Urine WBC (Auto) Urine RBC (Auto) Urine WBC Clumps (Auto) Amorphous Sediment Urine Bacteria Blood Type Antibody Screen Antibody Identification Assessment & Plan - Assessment and Plan (Free Text) Assessment: Patient is a 67 year old male with history of ESRD on hemodialysis, CAD w/ CABG , DM, 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 Metabolic Encephalopathy 2/2 to Infection Treat underlying infection - UTI/pneumonia? Exhibiting neurologic improvement - patient able to follow simple commands such as opening eyes to name, wiggling toes and thumb Taper down sedation if possible to better assess mentation Head CT: No evidence of acute intracranial hemorrhage transcortical infarction mass effect or midline shift. Mild atrophy and [id number] chronic microvascular white matter ischemic disease. No significant interval changes noted since the previous exam If no improvement after treatment of underlying infection, please re-consult and we can consider MRI Neurology will sign off at this time Case discussed with neurologist, Dr Mueller <Saad Mueller - Last Filed: 03/20/18 19:41> Meds - Medications Medications: Current Medications Acetaminophen (Tylenol 650 Mg Supp) 650 mg [place] Q6 PRN PRN Reason: Fever >100.4 F Last Admin: 03/20/18 16:34 Dose: 650 mg Aspirin (Aspirin Chewable) 81 mg PO DAILY [facility] Last Admin: 03/20/18 11:21 Dose: 81 mg Epoetin Mario (Procrit) 4,000 unit IV TTS [facility] Last Admin: 03/19/18 20:51 Dose: 4,000 unit Heparin Sodium (Porcine) (Heparin) 5,000 units SC Q12 [facility] Aztreonam 1 gm/ Sodium (Chloride) 100 mls @ 100 mls/hr IVPB Q24H [facility] PRN Reason: Protocol Last Admin: 03/20/18 18:34 Dose: 100 mls/hr Tigecycline 50 mg/ Sodium (Chloride) 100 mls @ 100 mls/hr IVPB Q12H [facility] PRN Reason: Protocol Dexmedetomidine HCl 200 mcg/ (Sodium Chloride) 50 mls @ 4.08 mls/hr IV TITR PRN ; Protocol; 0.2 MCG/KG/HR PRN Reason: Agitation Pantoprazole Sodium (Protonix Inj) 40 mg IVP DAILY [facility] Last Admin: 03/20/18 11:21 Dose: 40 mg Paricalcitol (Zemplar) 2 mcg IV TTS [facility] Last Admin: 03/19/18 20:52 Dose: 2 mcg Results - Vital Signs Recent Vital Signs: Last Vital Signs Temp 102.7 F H 03/20/18 18:13 Pulse 82 03/20/18 18:00 Resp 20 03/20/18 18:00 BP 170/28 H 03/20/18 17:09 Pulse Ox 100 03/20/18 15:05 - Labs Result Diagrams: 03/20/18 06:54 03/20/18 06:54 Labs: Laboratory Results - last 24 hr 03/19/18 03/19/18 03/19/18 16:42 21:14 21:15 WBC RBC Hgb Hct MCV MCH MCHC RDW Plt Count MPV Neut % (Auto) Lymph % (Auto) [place] % (Auto) Eos % (Auto) Baso % (Auto) Neut # (Auto) Lymph # (Auto) [place] # (Auto) Eos # (Auto) Baso # (Auto) Neutrophils % (Manual) Band Neutrophils % Lymphocytes % (Manual) Monocytes % (Manual) Eosinophils % (Manual) Nucleated RBC % Platelet Estimate Basophilic Stippling Anisocytosis (manual) Macrocytosis (manual) Puncture Site pCO2 pO2 HCO3 ABG pH ABG Total CO2 ABG O2 Saturation ABG Base Excess ABG Hemoglobin ABG Carboxyhemoglobin POC ABG HHb (Measured) ABG Methemoglobin Esvin Test A-a O2 Difference Respiratory Index Hgb O2 Saturation Vent Mode Mechanical Rate FiO2 Tidal Volume PEEP Sodium Potassium Chloride Carbon Dioxide Anion Gap BUN Creatinine Est GFR ( Amer) Est GFR (Non-Af Amer) POC Glucose (mg/dL) 123 H 63 L 73 Random Glucose Calcium Phosphorus Magnesium Total Bilirubin AST ALT Alkaline Phosphatase Total Protein Albumin Globulin Albumin/Globulin Ratio 03/19/18 03/20/18 03/20/18 23:55 05:27 06:54 WBC 7.6 RBC 3.03 L Hgb 10.0 L Hct 31.6 L MCV 104.4 H MCH 33.0 H MCHC 31.7 L RDW 18.7 H Plt Count 90 L MPV 8.8 Neut % (Auto) 77.3 H Lymph % (Auto) 8.2 L [place] % (Auto) 5.6 Eos % (Auto) 8.2 H Baso % (Auto) 0.7 Neut # (Auto) 5.9 Lymph # (Auto) 0.6 L [place] # (Auto) 0.4 Eos # (Auto) 0.6 Baso # (Auto) 0.1 Neutrophils % (Manual) 80 H Band Neutrophils % 1 Lymphocytes % (Manual) 8 L Monocytes % (Manual) 3 Eosinophils % (Manual) 8 H Nucleated RBC % 4 H Platelet Estimate Decreased L Basophilic Stippling Slight Anisocytosis (manual) Moderate Macrocytosis (manual) Moderate Puncture Site Rr pCO2 42 pO2 128 H HCO3 28.0 ABG pH 7.44 ABG Total CO2 29.8 H ABG O2 Saturation 99.0 H ABG Base Excess 3.9 H ABG Hemoglobin 9.6 L ABG Carboxyhemoglobin 1.8 H POC ABG HHb (Measured) 1.0 ABG Methemoglobin 1.4 Esvin Test Pos A-a O2 Difference 176.0 Respiratory Index 1.4 Hgb O2 Saturation 95.7 Vent Mode Prvc Mechanical Rate 18 FiO2 50.0 Tidal Volume 500 PEEP 5 Sodium Potassium Chloride Carbon Dioxide Anion Gap BUN Creatinine Est GFR ( Amer) Est GFR (Non-Af Amer) POC Glucose (mg/dL) 79 Random Glucose Calcium Phosphorus Magnesium Total Bilirubin AST ALT Alkaline Phosphatase Total Protein Albumin Globulin Albumin/Globulin Ratio 03/20/18 06:54 WBC RBC Hgb Hct MCV MCH MCHC RDW Plt Count MPV Neut % (Auto) Lymph % (Auto) [place] % (Auto) Eos % (Auto) Baso % (Auto) Neut # (Auto) Lymph # (Auto) [place] # (Auto) Eos # (Auto) Baso # (Auto) Neutrophils % (Manual) Band Neutrophils % Lymphocytes % (Manual) Monocytes % (Manual) Eosinophils % (Manual) Nucleated RBC % Platelet Estimate Basophilic Stippling Anisocytosis (manual) Macrocytosis (manual) Puncture Site pCO2 pO2 HCO3 ABG pH ABG Total CO2 ABG O2 Saturation ABG Base Excess ABG Hemoglobin ABG Carboxyhemoglobin POC ABG HHb (Measured) ABG Methemoglobin Esvin Test A-a O2 Difference Respiratory Index Hgb O2 Saturation Vent Mode Mechanical Rate FiO2 Tidal Volume PEEP Sodium 142 Potassium 3.0 L Chloride 103 Carbon Dioxide 30 Anion Gap 12 BUN 17 Creatinine 3.1 H Est GFR ( Amer) 25 Est GFR (Non-Af Amer) 20 POC Glucose (mg/dL) Random Glucose 86 Calcium 9.0 Phosphorus 0.8 L* Magnesium 2.2 Total Bilirubin 0.8 AST 21 ALT 31 Alkaline Phosphatase 91 Total Protein 5.5 L Albumin 3.1 L Globulin 2.4 Albumin/Globulin Ratio 1.3 Attending/Attestation - Attestation I have personally seen and examined this patient.: Yes I have fully participated in the care of the patient.: Yes I have reviewed all pertinent clinical information: Yes Notes (Text): 03/20/18 19:39 On my exam, the patient was intubated/off sedation, following simple commands, moving all extremities. Brainstem function all intact. GCS was 10T.
--- NOTE | 2018-03-20 16:15 | CT ---
Date of service: 03/20/2018 PROCEDURE: CT HEAD WITHOUT CONTRAST. HISTORY: r/o new CVA COMPARISON: Unenhanced head CT 03/19/2018. TECHNIQUE: Axial computed tomography images were obtained through the head/brain without intravenous contrast. Radiation dose: Total exam DLP = 1366.11 mGy-cm. This CT exam was performed using one or more of the following dose reduction techniques: Automated exposure control, adjustment of the mA and/or kV according to patient size, and/or use of iterative reconstruction technique. FINDINGS: HEMORRHAGE: No intracranial hemorrhage. BRAIN: Stable limited diffuse cerebral atrophy chronic microangiopathy is reiterated with good corticomedullary differentiation reiterated as well as the lack of mass effect. No significant change is appreciated including the posterior fossa contents. VENTRICLES: Unremarkable. No hydrocephalus. CALVARIUM: Unremarkable. PARANASAL SINUSES: Unremarkable as visualized. No significant inflammatory changes. MASTOID AIR CELLS: Unremarkable as visualized. No inflammatory changes. OTHER FINDINGS: None. IMPRESSION: Stable limited age related neuro degenerative findings without interval acute hemorrhage mass effect or cortical edema. MRI is available follow-up or CT if clinically warranted.
--- NOTE | 2018-03-20 16:19 | CT ---
Date of service: 03/20/2018 PROCEDURE: CT Chest without contrast HISTORY: pleural effusions COMPARISON: CT chest dated 06/02/2016 TECHNIQUE: Contiguous axial images were obtained through the chest without intravenous contrast enhancement. Sagittal and coronal reconstructions were performed. Radiation dose (DLP): 914.5 mGy-cm. This CT exam was performed using one or more of the following dose reduction techniques: Automated exposure control, adjustment of the mA and/or kV according to patient size, and/or use of iterative reconstruction technique. FINDINGS: LUNGS: Focus of posterior right upper lobe round atelectasis. Right middle and right lower lobe subsegmental atelectasis. Left upper and lower lobe subsegmental atelectasis. Questionable left lower lobe consolidation. Visualized airway clear. MEDIASTINUM: Unremarkable thoracic aorta. No aneurysm. Cardiomegaly. Right subclavian vein access pacemaker. Main pulmonary artery unremarkable. No vascular congestion. Multiple small mediastinal lymph nodes. PLEURA: Small bilateral pleural effusions. Small amount of fluid within the left major fissure. No pneumothorax. BONES: No fracture. No destructive lesion. UPPER ABDOMEN: Trace perihepatic and perisplenic ascites. Severe abdominal vascular calcifications. Cholelithiasis without gallbladder wall thickening or pericholecystic fluid OTHER FINDINGS: Right internal jugular access central venous catheter with tip in the superior vena cava. Endotracheal tube with tip between the clavicles and [place]. Enteric tube with tip at the gastroesophageal junction ; this has been pulled back in comparison to the chest radiograph performed earlier the same day. IMPRESSION: Pulmonary vascular congestion with small bilateral pleural effusions and a small amount of fluid in the left major fissure. Bilateral subsegmental atelectasis as described above with focus of round atelectasis in the posterior right upper lobe. Questionable left lower lobe consolidation. Malpositioned enteric tube chest retracted with tip now at the gastroesophageal junction. Advancement is recommended.
--- NOTE | 2018-03-20 18:20 | CP.PCM.PN ---
Subjective - Date & Time of Evaluation Date of Evaluation: 03/20/18 Time of Evaluation: 17:00 - Subjective Subjective: the patient seen and examined Patient remained intubated on ventilatory support FiO2 reduced to 50% Open eyes to stimuli Afebrile CAT scan of the chest consistent with pulmonary congestion and possible left lower lung infiltrate Status post hemodialysis yesterday Blood cultures positive for gram-positive cocci Objective - Vital Signs/Intake and Output Vital Signs (last 24 hours): Temp Pulse Resp BP Pulse Ox 98.4 F 82 20 170/28 H 100 03/19/18 22:55 03/20/18 18:00 03/20/18 18:00 03/20/18 17:09 03/20/18 15:05 Intake and Output: 03/20/18 03/20/18 06:59 18:59 Intake Total 206.3 378.9 Output Total 0 0 Balance 206.3 378.9 - Medications Medications: Current Medications Acetaminophen (Tylenol 650 Mg Supp) 650 mg UT Q6 PRN PRN Reason: Fever >100.4 F Last Admin: 03/20/18 10:30 Dose: 650 mg Aspirin (Aspirin Chewable) 81 mg PO DAILY [facility] Last Admin: 03/20/18 11:21 Dose: 81 mg Epoetin Mario (Procrit) 4,000 unit IV TTS [facility] Last Admin: 03/19/18 20:51 Dose: 4,000 unit Heparin Sodium (Porcine) (Heparin) 5,000 units SC Q12 BELL Aztreonam 1 gm/ Sodium (Chloride) 100 mls @ 100 mls/hr IVPB Q24H BELL PRN Reason: Protocol Last Admin: 03/19/18 23:00 Dose: 100 mls/hr Tigecycline 50 mg/ Sodium (Chloride) 100 mls @ 100 mls/hr IVPB Q12H BELL PRN Reason: Protocol Dexmedetomidine HCl 200 mcg/ (Sodium Chloride) 50 mls @ 4.08 mls/hr IV TITR PRN ; Protocol; 0.2 MCG/KG/HR PRN Reason: Agitation Pantoprazole Sodium (Protonix Inj) 40 mg IVP DAILY [facility] Last Admin: 03/20/18 11:21 Dose: 40 mg Paricalcitol (Zemplar) 2 mcg IV TTS [facility] Last Admin: 03/19/18 20:52 Dose: 2 mcg - Labs Labs: 03/20/18 06:54 03/20/18 06:54 PT 10.7 SECONDS (9.7-12.2) 03/19/18 14:18 INR 1.0 03/19/18 14:18 APTT 39 SECONDS (21-34) H 03/19/18 14:18 - Head Exam Head Exam: ATRAUMATIC, NORMOCEPHALIC - ENT Exam ENT Exam: Mucous Membranes Moist - Respiratory Exam Respiratory Exam: Decreased Breath Sounds - Cardiovascular Exam Cardiovascular Exam: REGULAR RHYTHM - GI/Abdominal Exam GI & Abdominal Exam: Soft, Normal Bowel Sounds Assessment and Plan (1) Hypercapnic respiratory failure Assessment & Plan: Continue ventilatory support Start weaning when patient more awake and responsive Continue IV antibiotics NG tube feed Hemodialysis Followup culture and sensitivity, blood culture positive for gram-positive cocci Status: Acute (2) CHF (congestive heart failure), NYHA class III Status: Acute (3) ESRD (end stage renal disease) on dialysis Status: Chronic
[2018-03-20] MEDS: Aztreonam 1 GM in Sodium Chloride 0.9% 100 ML IVPB SCH (18:34)
[2018-03-20] MEDS: Dexmedetomidine Hydrochloride 200 MCG in Sodium Chloride 0.9% 48 ML IV PRN (20:00)
--- NOTE | 2018-03-20 20:09 | CP.PCM.PN ---
Subjective - Date & Time of Evaluation Date of Evaluation: 03/20/18 Time of Evaluation: 20:09 - Subjective Subjective: pt is seen and examined, follow up consult is dictated #[id number] staph. aures, and coag neg sepsis hypercarbeic resp. faiure b/l effusions for hd tomorrow Objective - Vital Signs/Intake and Output Vital Signs (last 24 hours): Temp Pulse Resp BP Pulse Ox 102.7 F H 82 20 170/28 H 100 03/20/18 18:13 03/20/18 18:00 03/20/18 18:00 03/20/18 17:09 03/20/18 15:05 Intake and Output: 03/20/18 03/21/18 18:59 06:59 Intake Total 378.9 Output Total 0 Balance 378.9 - Medications Medications: Current Medications Acetaminophen (Tylenol 650 Mg Supp) 650 mg [place] Q6 PRN PRN Reason: Fever >100.4 F Last Admin: 03/20/18 16:34 Dose: 650 mg Aspirin (Aspirin Chewable) 81 mg PO DAILY [facility] Last Admin: 03/20/18 11:21 Dose: 81 mg Epoetin Mario (Procrit) 4,000 unit IV TTS [facility] Last Admin: 03/19/18 20:51 Dose: 4,000 unit Heparin Sodium (Porcine) (Heparin) 5,000 units SC Q12 BELL Aztreonam 1 gm/ Sodium (Chloride) 100 mls @ 100 mls/hr IVPB Q24H BELL PRN Reason: Protocol Last Admin: 03/20/18 18:34 Dose: 100 mls/hr Tigecycline 50 mg/ Sodium (Chloride) 100 mls @ 100 mls/hr IVPB Q12H BELL PRN Reason: Protocol Dexmedetomidine HCl 200 mcg/ (Sodium Chloride) 50 mls @ 4.08 mls/hr IV TITR PRN ; Protocol; 0.2 MCG/KG/HR PRN Reason: Agitation Pantoprazole Sodium (Protonix Inj) 40 mg IVP DAILY [facility] Last Admin: 03/20/18 11:21 Dose: 40 mg Paricalcitol (Zemplar) 2 mcg IV TTS [facility] Last Admin: 03/19/18 20:52 Dose: 2 mcg - Labs Labs: 03/20/18 06:54 03/20/18 06:54 PT 10.7 SECONDS (9.7-12.2) 03/19/18 14:18 INR 1.0 03/19/18 14:18 APTT 39 SECONDS (21-34) H 03/19/18 14:18
--- NOTE | 2018-03-21 00:01 | CARD ---
APPROVED REPORT Date of service: 03/19/2018 EKG Measurement Heart [id number] [place] 206P [id number] <Conclusion> Atrial-sensed ventricular-paced rhythm Abnormal ECG
[2018-03-21 01:19] LABS: URINE BACTERIA FEW (<OCC); URINE BILIRUBIN NEGATIVE (NEGATIVE); URINE BLOOD 3+ (NEGATIVE); URINE CLARITY Turbid (Clear); URINE COLOR Yellow (YELLOW); URINE GLUCOSE (UA) NORMAL (Normal); URINE LEUKOCYTE ESTERASE 2+ Leu/uL (Negative); URINE PROTEIN 2+ mg/dL (NEGATIVE); URINE UROBILINOGEN NORMAL mg/dL (0.2-1.0)
[2018-03-21] MEDS: Dexmedetomidine Hydrochloride 200 MCG in Sodium Chloride 0.9% 48 ML IV PRN ×4 (01:50→19:08)
--- NOTE | 2018-03-21 04:35 | PN ---
Copied To: Martin Ortiz MD Attending MD: Martin Ortiz MD DATE: 03/20/2018 FOLLOWUP RENAL CONSULTATION REQUESTED BY: Carlos Andrews DO REASON FOR FOLLOWUP: End-stage renal disease, continuation of hemodialysis. HISTORY OF PRESENT ILLNESS: Mr. Gonzales is a 67-year-old elderly obese [place] male with a history of longstanding hypertension, diabetes, hyperlipidemia, COPD, asthma, status post pacemaker and end-stage renal disease on hemodialysis three times a week Sunday, , and Sunday, CAD, status post CABG, CVA with left-sided weakness, resident of detention, mostly bedridden, who was admitted after the patient was lethargic and unable to dialyze due to hypotension and the patient was found to have a severe CO2 narcosis, not responding to BiPAP and subsequently the patient was intubated. The patient is not in distress. The patient is on ventilator under sedation. Try to open eyes to verbal stimuli. PHYSICAL EXAMINATION: VITAL SIGNS: As follows, blood pressure 157/33, pulse 80, respiration 20 and T-max 102.7. GENERAL: Mr. Gonzales is a 67-year-old elderly male, moderately built, moderate nourished, not in distress. HEENT: Pupils are normal and reactive to light and accommodation. Conjunctivae pink. Sclerae anicteric. No thyroid enlargement. On ventilator. LUNGS: Decreased breath sounds on the right side. CARDIOVASCULAR SYSTEM: Wallback at the fifth intercostal space, midclavicular line. S1 and S2 audible. No murmur or gallop. ABDOMEN: Normal in appearance, soft, tympanic. No guarding. No hepatosplenomegaly. SUGAR SAMPLER: The patient is on ventilator under sedation. EXTREMITIES: No cyanosis, no clubbing. The patient has 1+ edema in both lower extremities. CURRENT MEDICATIONS: Include as follows, aspirin 81 mg daily, Azactam 1 g every 24 hours, Precedex on IV for sedation, subcutaneous heparin 5000 units every 12 hours, Procrit 4000 units 3 times a week, Protonix 40 mg IV daily, tigecycline 50 mg every 12 hours, Tylenol, Zemplar 2 mcg three times a week. LABORATORY DATA: Include as follows. Blood cultures positive for staph aureus and staph coag negative one set and MRSA screening was negative. Chest x-ray as of 03/20/2018, no significant interval change in the potential bibasilar airspace disease and mild bilateral pleural effusions, left greater than the right and borderline pulmonary vascular congestion. CT of the chest as of 03/20/2018, impression pulmonary vascular congestion with small bilateral pleural effusions and small amount of fluid in the left major fissure, bilateral subsegmental atelectasis as described above the focal round atelectasis in the posterior right upper lobe, questionable left lower lobe consolidation. CT of the head as of 03/20/2018, impression stable limited age-related neuro degenerative findings without interval acute hemorrhage, mass effect, or edema. MRIs is available. Followup on CT scan is clinically warranted. ASSESSMENT AND PLAN: In summary, Mr. Gonzales is a 67-year-old elderly obese [place] male with a history of hypertension, diabetes, chronic obstructive pulmonary disease, asthma, coronary artery disease, status post coronary artery bypass graft, status post pacemaker, status post cerebrovascular accident with left-sided weakness was admitted with CO2 narcosis and hypercarbic respiratory failure, not responding to Bilevel Positive Airway Pressure and intubated, under sedation and status post hemodialysis yesterday. 1. End-stage renal disease. Continue hemodialysis three times a week Sunday, , and Sunday. 2. Hypercarbic acute respiratory failure. 3. Hypertension. 4. Diabetes. 5. Coronary artery disease, stable. Plan, we will continue his current medication. 6. Staphylococcus aureus sepsis. Continue intravenous antibiotic, Azactam, and tigecycline. Continue vent support and continue deep vein thrombosis prophylaxis. We will follow with you. Thank you for allowing me to participate in your patient's care. We will try to ultrafiltrate as much as the patient can tolerate during dialysis tomorrow. Martin Ortiz MD
[2018-03-21 05:49] LABS: ABG ALLEN TEST POS; ARTERIAL BLOOD GAS HCO3 28.1 mmol/L (21-28); ARTERIAL BLOOD GAS HEMOGLOBIN 10.9 g/dL (11.7-17.4); ARTERIAL BLOOD GAS O2 SAT 98.8 % (95-98); ARTERIAL BLOOD GAS PCO2 34 mm/Hg (35-45); ARTERIAL BLOOD GAS PH 7.51 (7.35-7.45); ARTERIAL BLOOD GAS PO2 103 mm/Hg (80-100); ARTERIAL BLOOD GAS TCO2 28.1 mmol/L (22-28)
[2018-03-21 06:36] LABS: BASO % 0.5 % (0.0-2.0); EOS # 0.2 K/uL (0.0-0.7); EOS % 2.7 % (0.0-4.0); HEMOGLOBIN 10.9 g/dL (12.0-18.0); LYMPH # 0.9 K/uL (1.0-4.3); LYMPH % 10.7 % (20.0-40.0); MEAN CELL VOLUME 102.9 fL (80.0-94.0); MEAN CORPUSCULAR HEMOGLOBIN 33.1 pg (27.0-31.0); MEAN CORPUSCULAR HGB CONC 32.2 g/dL (33.0-37.0); MEAN PLATELET VOLUME 8.4 fL (7.2-11.7); MONO # 0.7 K/uL (0.0-0.8); MONO % 7.6 % (0.0-10.0); NEUT # 6.7 K/uL (1.8-7.0); NEUT % 78.5 % (50.0-75.0); NRBC % 0.5 % (0.0-2.0); RBC 3.3 Mil/uL (4.40-5.90); RED CELL DISTRIBUTION WIDTH 19.8 % (11.5-14.5); WHITE BLOOD COUNT 8.6 K/uL (4.8-10.8)
--- NOTE | 2018-03-21 06:44 | PN ---
Copied To: Carlos Andrews DO Attending MD: Carlos Andrews DO DATE: 03/20/2018 SUBJECTIVE: He is in the intensive care unit, on the ventilator, on IV antibiotics. He has been seen by the renal doctor and an bottom sander, . consults for Pulmonary, Cardio, Infectious Disease, and Renal. He is sedated. PHYSICAL EXAMINATION: VITAL SIGNS: He has a 98.4 temp, 80 pulse, 137/32 blood pressure, 100% O2 sat on mechanical ventilator. He is sedated. HEENT: Head is atraumatic and normocephalic. HEART: Regular rate. LUNGS: Decreased breath sounds, but clear. ABDOMEN: Soft. EXTREMITIES: No edema. LABORATORY DATA: He has a 8.8 white count, 10.9 hemoglobin, 35.2 hematocrit with a 108 platelets. Sodium 141, potassium 4.3, BUN 31, creatinine 5.6. He is on dialysis. Last blood sugar was 123, calcium was 9, phosphorus 4.4, magnesium 2.6, total bili is 0.7, AST is 17, ALT is 35, alk phos 90, total creatinine kinase is 26. Troponin I is less than 0.012, total protein 6.1. His urine showed moderate bacteria, many white clumps, 3+ leukocyte esterase, 3+ blood. I do not think he is having urosepsis. ASSESSMENT AND PLAN: Continue with aggressive treatment. He is on albumin, Amidate, aspirin, aztreonam intravenous, propofol, DuoNebs, pantoprazole, succinylcholine. Rocephin was discontinued and vancomycin was discontinued. He is on Zemplar. Continue aggressive treatment and care. We will check his labs tomorrow. Discussed at length with family and he is in very serious condition today in the intensive care unit on the ventilator. Carlos Andrews DO MTDD
[2018-03-21 06:47] LABS: ALB/GLOB RATIO 1.3 (1.0-2.1); ALBUMIN 3.1 g/dL (3.5-5.0); CALCIUM 8.7 mg/dl (8.6-10.4)
--- NOTE | 2018-03-21 08:24 | RAD ---
Chest x-ray single frontal view History: Congestive heart failure. Comparison: 03/20/2018 Findings: Lines and tubes in stable position. Left axillary stent in place. Moderate to severe venous congestion. Confluent airspace opacification of the mid to lower right lung zone and left lung base. Small to moderate right and small left pleural effusion. Status post median sternotomy. Cardiomegaly. Right-sided pacemaker. Degenerative changes in the spine and shoulders. Impression: Lines and tubes in stable position. Left axillary stent in place. Moderate to severe venous congestion. Confluent airspace opacification of the mid to lower right lung zone and left lung base. Small to moderate right and small left pleural effusion. Status post median sternotomy. Cardiomegaly. Right-sided pacemaker.
--- NOTE | 2018-03-21 09:00 | CP.CCUPN ---
<Yamilet Casas - Last Filed: 03/21/18 13:23> CCU Subjective - Physician Review Subjective (Free Text): ICU Progress note Patient seen and examined at bedside. Patient intubated and unable to provide history. No longer sedated, able to open eyes and track staff around room. CCU Objective - Vital Signs / Intake & Output Vital Signs (Last 4 hours): Vital Signs Pulse Resp BP Pulse Ox 03/21/18 06:35 80 15 173/30 H 100 03/21/18 06:00 80 19 99 03/21/18 05:54 80 19 169/37 H 100 03/21/18 05:36 80 18 100 Intake and Output (Last 8hrs): Intake & Output 03/20/18 03/21/18 03/21/18 22:59 06:59 14:59 Intake Total 441.8 554.4 48 Output Total 0 400 Balance 441.8 154.4 48 Weight 194 lb 3.636 oz Intake: IV 90 48 Intake, IV Amount 201.8 164.4 Right Distal Port 0 0 Internal Jugular Right Forearm 44.6 0 Right Medial Port 100 50 Internal Jugular Right Proximal Port 57.2 114.4 Internal Jugular Tube Feeding 240 300 Output: Urine 0 400 Straight 400 Urine, Voided 0 0 Stool 0 0 Emesis 0 0 Other: # Bowel Movements 1 1 - Physical Exam Head: Positive for: Atraumatic, Normocephalic Pupils: Positive for: PERRL Extroacular Muscles: Positive for: EOMI Mouth: Positive for: Moist Mucous Membranes, Other (OGT and ETT in place) Neck: Positive for: Other (Right IJ TLC) Respiratory/Chest: Positive for: Decreased Breath Sounds, Other (pacemaker palpable in right anterior chest) Cardiovascular: Positive for: Other (Paced at 80) Abdomen: Positive for: Normal Bowel Sounds. Negative for: Tenderness Upper Extremity: Positive for: Other (AV fistula left upper extremity, bruit auscultated. Radial pulses present bilaterally. ) Lower Extremity: Positive for: NORMAL PULSES (2+ Dorsalis pedis pulses present bilaterally), Capillary Refill < 2 s. Negative for: CALF TENDERNESS Skin: Positive for: Warm, Dry Psychiatric: Positive for: Other (Awake, opens eye spontaneously) - Medications Active Medications: Active Medications Generic Name Dose Route Start Last Admin Trade Name Freq PRN Reason Stop Dose Admin Acetaminophen 650 mg 03/20/18 10:28 03/21/18 00:24 Tylenol 650 Mg Supp LA 650 mg Q6 PRN Administration Fever >100.4 F Albuterol/Ipratropium 3 ml 03/21/18 12:00 Duoneb 3 Mg/0.5 Mg (3 Ml) Ud INH RQ4 BELL Aspirin 81 mg 03/20/18 10:00 03/20/18 11:21 Aspirin Chewable PO 81 mg DAILY BELL Administration Epoetin Mario 4,000 unit 03/19/18 18:00 03/19/18 20:51 Procrit IV 4,000 unit TTS BELL Administration Heparin Sodium (Porcine) 5,000 units 03/20/18 22:00 03/20/18 22:21 Heparin SC 5,000 units Q12 BELL Administration Aztreonam 1 gm/ Sodium 100 mls @ 100 mls/hr 03/19/18 18:30 03/20/18 18:34 Chloride IVPB 100 mls/hr Q24H BELL Administration Protocol Tigecycline 50 mg/ Sodium 100 mls @ 100 mls/hr 03/20/18 23:00 03/20/18 22:21 Chloride IVPB 100 mls/hr Q12H BELL Administration Protocol Dexmedetomidine HCl 200 mcg/ 50 mls @ 4.08 mls/hr 03/20/18 11:06 03/21/18 07: 18 Sodium Chloride IV 0.7 mcg/kg/hr TITR PRN 14.28 mls/hr Agitation Administration Protocol 0.2 MCG/KG/HR Pantoprazole Sodium 40 mg 03/20/18 10:00 03/20/18 11:21 Protonix Inj IVP 40 mg DAILY BELL Administration Paricalcitol 2 mcg 03/19/18 18:00 03/19/18 20:52 Zemplar IV 2 mcg TTS BELL Administration - Patient Studies Lab Studies: Microbiology Studies 03/19/18 16:54 MRSA Culture (Admit) - Final Naris MRSA NOT DETECTED 03/19/18 14:30 S.aureus & Coag-Neg Staph PNA FISH - Final Blood Blood Culture - Preliminary Gram Positive Cocci Gram Stain - Final 03/19/18 14:00 Blood Culture - Preliminary Blood NO GROWTH AFTER 24 HOURS Lab Studies 03/21/18 03/21/18 03/21/18 Range/Units 06:26 06:26 05:36 WBC 8.6 (4.8-10.8) K/uL RBC 3.30 L (4.40-5.90) Mil/uL Hgb 10.9 L (12.0-18.0) g/dL Hct 34.0 L (35.0-51.0) % MCV 102.9 H (80.0-94.0) fL MCH 33.1 H (27.0-31.0) pg MCHC 32.2 L (33.0-37.0) g/dL RDW 19.8 H (11.5-14.5) % Plt Count 87 L (130-400) K/uL MPV 8.4 (7.2-11.7) fL Neut % (Auto) 78.5 H (50.0-75.0) % Lymph % (Auto) 10.7 L (20.0-40.0) % [place] % (Auto) 7.6 (0.0-10.0) % Eos % (Auto) 2.7 (0.0-4.0) % Baso % (Auto) 0.5 (0.0-2.0) % Neut # (Auto) 6.7 (1.8-7.0) K/uL Lymph # (Auto) 0.9 L (1.0-4.3) K/uL [place] # (Auto) 0.7 (0.0-0.8) K/uL Eos # (Auto) 0.2 (0.0-0.7) K/uL Baso # (Auto) 0.0 (0.0-0.2) K/uL Puncture Site Rr pCO2 34 L (35-45) mm/Hg pO2 103 H (80-100) mm/Hg HCO3 28.1 H (21-28) mmol/L ABG pH 7.51 H (7.35-7.45) ABG Total CO2 28.1 H (22-28) mmol/L ABG O2 Saturation 98.8 H (95-98) % ABG Base Excess 4.1 H (-2.0-3.0) mmol/L ABG Hemoglobin 10.9 L (11.7-17.4) g/dL ABG Carboxyhemoglobin 2.3 H (0.5-1.5) % POC ABG HHb (Measured) 1.2 (0.0-5.0) % ABG Methemoglobin 1.0 (0.0-3.0) % Esvin Test Pos A-a O2 Difference 140.0 mm/Hg Respiratory Index 1.4 Hgb O2 Saturation 95.5 (95.0-98.0) % Vent Mode Prvc Mechanical Rate 18 FiO2 40.0 % Tidal Volume 500 PEEP 5 Sodium 143 (132-148) mmol/L Potassium 3.4 L (3.6-5.2) mmol/L Chloride 104 (98-107) mmol/L Carbon Dioxide 27 (22-30) mmol/L Anion Gap 16 (10-20) BUN 34 H (9-20) mg/dL Creatinine 4.2 H (0.8-1.5) mg/dL Est GFR ( Amer) 17 Est GFR (Non-Af Amer) 14 POC Glucose (mg/dL) (65-110) mg/dL Random Glucose 202 H (75-110) mg/dL Calcium 8.7 (8.6-10.4) mg/dl Phosphorus 1.7 L (2.5-4.5) mg/dL Magnesium 2.4 H (1.6-2.3) mg/dL Total Bilirubin 1.5 H (0.2-1.3) mg/dL AST 32 (17-59) U/L ALT 30 (21-72) U/L Alkaline Phosphatase 107 (38-126) U/L Total Protein 5.6 L (6.3-8.3) g/dL Albumin 3.1 L (3.5-5.0) g/dL Globulin 2.5 (2.2-3.9) gm/dL Albumin/Globulin Ratio 1.3 (1.0-2.1) Urine Color (YELLOW) Urine Clarity (Clear) Urine pH (5.0-8.0) Ur Specific [place] (1.003-1.030) Urine Protein (NEGATIVE) mg/dL Urine Glucose (UA) (Normal) mg/dL Urine Ketones (NEGATIVE) mg/dL Urine Blood (NEGATIVE) Urine Nitrate (NEGATIVE) Urine Bilirubin (NEGATIVE) Urine Urobilinogen (0.2-1.0) mg/dL Ur Leukocyte Esterase (Negative) Annita/uL Urine WBC (Auto) (0-5) /hpf Urine RBC (Auto) (0-3) /hpf Urine Bacteria (<OCC) 03/21/18 03/20/18 03/20/18 Range/Units 00:57 23:41 17:50 WBC (4.8-10.8) K/uL RBC (4.40-5.90) Mil/uL Hgb (12.0-18.0) g/dL Hct (35.0-51.0) % MCV (80.0-94.0) fL MCH (27.0-31.0) pg MCHC (33.0-37.0) g/dL RDW (11.5-14.5) % Plt Count (130-400) K/uL MPV (7.2-11.7) fL Neut % (Auto) (50.0-75.0) % Lymph % (Auto) (20.0-40.0) % [place] % (Auto) (0.0-10.0) % Eos % (Auto) (0.0-4.0) % Baso % (Auto) (0.0-2.0) % Neut # (Auto) (1.8-7.0) K/uL Lymph # (Auto) (1.0-4.3) K/uL [place] # (Auto) (0.0-0.8) K/uL Eos # (Auto) (0.0-0.7) K/uL Baso # (Auto) (0.0-0.2) K/uL Puncture Site pCO2 (35-45) mm/Hg pO2 (80-100) mm/Hg HCO3 (21-28) mmol/L ABG pH (7.35-7.45) ABG Total CO2 (22-28) mmol/L ABG O2 Saturation (95-98) % ABG Base Excess (-2.0-3.0) mmol/L ABG Hemoglobin (11.7-17.4) g/dL ABG Carboxyhemoglobin (0.5-1.5) % POC ABG HHb (Measured) (0.0-5.0) % ABG Methemoglobin (0.0-3.0) % Esvin Test A-a O2 Difference mm/Hg Respiratory Index Hgb O2 Saturation (95.0-98.0) % Vent Mode Mechanical Rate FiO2 % Tidal Volume PEEP Sodium (132-148) mmol/L Potassium (3.6-5.2) mmol/L Chloride (98-107) mmol/L Carbon Dioxide (22-30) mmol/L Anion Gap (10-20) BUN (9-20) mg/dL Creatinine (0.8-1.5) mg/dL Est GFR ( Amer) Est GFR (Non-Af Amer) POC Glucose (mg/dL) 184 H 148 H (65-110) mg/dL Random Glucose (75-110) mg/dL Calcium (8.6-10.4) mg/dl Phosphorus (2.5-4.5) mg/dL Magnesium (1.6-2.3) mg/dL Total Bilirubin (0.2-1.3) mg/dL AST (17-59) U/L ALT (21-72) U/L Alkaline Phosphatase (38-126) U/L Total Protein (6.3-8.3) g/dL Albumin (3.5-5.0) g/dL Globulin (2.2-3.9) gm/dL Albumin/Globulin Ratio (1.0-2.1) Urine Color Yellow (YELLOW) Urine Clarity Turbid (Clear) Urine pH 6.0 (5.0-8.0) Ur Specific [place] 1.023 (1.003-1.030) Urine Protein 2+ H (NEGATIVE) mg/dL Urine Glucose (UA) Normal (Normal) mg/dL Urine Ketones Trace (NEGATIVE) mg/dL Urine Blood 3+ H (NEGATIVE) Urine Nitrate Negative (NEGATIVE) Urine Bilirubin Negative (NEGATIVE) Urine Urobilinogen Normal (0.2-1.0) mg/dL Ur Leukocyte Esterase 2+ H (Negative) Annita/uL Urine WBC (Auto) 02033 H (0-5) /hpf Urine RBC (Auto) 4437 H (0-3) /hpf Urine Bacteria Few H (<OCC) Laboratory Results - last 24 hr 03/20/18 03/20/18 03/21/18 17:50 23:41 00:57 WBC RBC Hgb Hct MCV MCH MCHC RDW Plt Count MPV Neut % (Auto) Lymph % (Auto) [place] % (Auto) Eos % (Auto) Baso % (Auto) Neut # (Auto) Lymph # (Auto) [place] # (Auto) Eos # (Auto) Baso # (Auto) Puncture Site pCO2 pO2 HCO3 ABG pH ABG Total CO2 ABG O2 Saturation ABG Base Excess ABG Hemoglobin ABG Carboxyhemoglobin POC ABG HHb (Measured) ABG Methemoglobin Esvin Test A-a O2 Difference Respiratory Index Hgb O2 Saturation Vent Mode Mechanical Rate FiO2 Tidal Volume PEEP Sodium Potassium Chloride Carbon Dioxide Anion Gap BUN Creatinine Est GFR ( Amer) Est GFR (Non-Af Amer) POC Glucose (mg/dL) 148 H 184 H Random Glucose Calcium Phosphorus Magnesium Total Bilirubin AST ALT Alkaline Phosphatase Total Protein Albumin Globulin Albumin/Globulin Ratio Urine Color Yellow Urine Clarity Turbid Urine pH 6.0 Ur Specific [place] 1.023 Urine Protein 2+ H Urine Glucose (UA) Normal Urine Ketones Trace Urine Blood 3+ H Urine Nitrate Negative Urine Bilirubin Negative Urine Urobilinogen Normal Ur Leukocyte Esterase 2+ H Urine WBC (Auto) 15286 H Urine RBC (Auto) 4437 H Urine Bacteria Few H 03/21/18 03/21/18 03/21/18 05:36 06:26 06:26 WBC 8.6 RBC 3.30 L Hgb 10.9 L Hct 34.0 L MCV 102.9 H MCH 33.1 H MCHC 32.2 L RDW 19.8 H Plt Count 87 L MPV 8.4 Neut % (Auto) 78.5 H Lymph % (Auto) 10.7 L [place] % (Auto) 7.6 Eos % (Auto) 2.7 Baso % (Auto) 0.5 Neut # (Auto) 6.7 Lymph # (Auto) 0.9 L [place] # (Auto) 0.7 Eos # (Auto) 0.2 Baso # (Auto) 0.0 Puncture Site Rr pCO2 34 L pO2 103 H HCO3 28.1 H ABG pH 7.51 H ABG Total CO2 28.1 H ABG O2 Saturation 98.8 H ABG Base Excess 4.1 H ABG Hemoglobin 10.9 L ABG Carboxyhemoglobin 2.3 H POC ABG HHb (Measured) 1.2 ABG Methemoglobin 1.0 Esvin Test Pos A-a O2 Difference 140.0 Respiratory Index 1.4 Hgb O2 Saturation 95.5 Vent Mode Prvc Mechanical Rate 18 FiO2 40.0 Tidal Volume 500 PEEP 5 Sodium 143 Potassium 3.4 L Chloride 104 Carbon Dioxide 27 Anion Gap 16 BUN 34 H Creatinine 4.2 H Est GFR ( Amer) 17 Est GFR (Non-Af Amer) 14 POC Glucose (mg/dL) Random Glucose 202 H Calcium 8.7 Phosphorus 1.7 L Magnesium 2.4 H Total Bilirubin 1.5 H AST 32 ALT 30 Alkaline Phosphatase 107 Total Protein 5.6 L Albumin 3.1 L Globulin 2.5 Albumin/Globulin Ratio 1.3 Urine Color Urine Clarity Urine pH Ur Specific [place] Urine Protein Urine Glucose (UA) Urine Ketones Urine Blood Urine Nitrate Urine Bilirubin Urine Urobilinogen Ur Leukocyte Esterase Urine WBC (Auto) Urine RBC (Auto) Urine Bacteria Fingerstick Blood Sugar Results: 193 Assessment/Plan - Assessment and Plan (Free Text) Assessment: 67 year old male with history of CAD s/p pacemaker, CVA, DM, ESRD on HD who presented for altered mental status. Patient was noted to be in respiratory distress. Patient was initially placed on BIPAP in the ED, however patient was intubated on arrival to the ICU. Patient was found to be hypotensive and had right IJ central line placed, however has not been on pressors since patient is no longer hypotensive. Plan: Neuro: Propofol discontinued On Precedex currently Awake, opens eyes spontaneously Continue to monitor neurological status 03/[address]: No evidence of acute intracranial hemorrhage transcortical infarction mass effect or midline shift. Mild atrophy and [id number] chronic microvascular white matter ischemic disease. No significant interval changes noted since the previous exam. 03/[address] Stable limited age related neuro degenerative findings without interval acute hemorrhage mass effect or cortical edema. MRI is available follow-up or CT if clinically warranted. Pulmonary: ABG pH 7.44 pCO2 42 pO2 128 lactate 03/19 Intubated on arrival Current vent settings TV 500ml FiO2 40% PEEP 5 RR 18 Daily CPAP trials Plan to attempt extubation after dialysis today Duonebs Q4 03/21 CXR: Linesand tubes in stable position. Left axillary stent in place. Moderate to severe venous congestion. Confluent airspace opacification of the mid to lower rigth lung zone and left lung base. Small to moderate right and small left pleural effusion. Status post median sternotomy. Cardiomegaly. Right sided pacemaker. Degenerative changes to spine and shoulder. 03/20 CT chest without contrast Pulmonary vascular congestion with small bilateral pleural effusions and a small amount of fluid in the left major fissure. Bilateral subsegmental atelectasis as described above with focus of round atelectasis in the posterior right upper lobe. Questionable left lower lobe consolidation. Malpositioned enteric tube chest retracted with tip now at the gastroesophageal junction. Advancement is recommended. Cardiovascular: Troponin <0.0120 Not currently hypotensive Right IJ TLC placed Not currently on pressors since BP went up after central line placement Continue to monitor ASA 81mg Renal: Hx of ESRD on HD on TTS Getting dialyzed today UA: 3+ leuk esterase, 3+ blood, 2+ protein moderate bacteria Procrit 4000 units IV TTS Paracalcitol 2mg IV TTS Nephrology Dr. Ortiz consulted, help appreciated Continue to monitor electrolytes, K and PO4 repleted. GI: Protonix 40mg IV On Nepro tube feeds Endo: A1c: 4 Continue to monitor blood glucose levels ID: Afebrile White count 8.6 Tylenol 650mg PRN fever Aztreonam 1g IV Tigecycline 50mg IV ID Dr. Rodas consulted, help appreciated Blood cultures, urine culture, sputum cultures sent Heme: H/H 10.9/34.0 No evidence of bleeding PPX: Heparin 5000 units SC Q12 Case discussed with Dr. Jean Mathis <Jean Mathis M - Last Filed: 03/21/18 14:31> CCU Subjective - Physician Review Critical Care Time Spent (in minutes): 45 CCU Objective - Vital Signs / Intake & Output Vital Signs (Last 4 hours): Vital Signs Temp Pulse Resp BP BP Pulse Ox 03/21/18 13:45 98.1 F 20 112/31 L 98 03/21/18 13:30 20 98/50 L 97 03/21/18 13:00 16 103/48 L 99 03/21/18 12:30 18 120/42 L 98 03/21/18 12:00 18 124/45 L 99 03/21/18 11:30 17 105/36 L 99 03/21/18 11:26 80 19 105/35 L 99 03/21/18 11:15 17 109/44 L 100 03/21/18 11:11 80 23 109/44 L 99 03/21/18 11:00 79 18 135/46 L 100 03/21/18 10:55 80 22 135/45 L 99 03/21/18 10:45 98 F 80 20 140/35 L 140/35 L 100 03/21/18 10:41 79 23 140/35 L 98 Intake and Output (Last 8hrs): Intake & Output 03/20/18 03/21/18 03/21/18 22:59 06:59 14:59 Intake Total 441.8 554.4 48 Output Total 0 400 Balance 441.8 154.4 48 Weight 194 lb 3.636 oz Intake: IV 90 48 Intake, IV Amount 201.8 164.4 Right Distal Port 0 0 Internal Jugular Right Forearm 44.6 0 Right Medial Port 100 50 Internal Jugular Right Proximal Port 57.2 114.4 Internal Jugular Tube Feeding 240 300 Output: Urine 0 400 Straight 400 Urine, Voided 0 0 Stool 0 0 Emesis 0 0 Other: # Bowel Movements 1 1 - Medications Active Medications: Active Medications Generic Name Dose Route Start Last Admin Trade Name Freq PRN Reason Stop Dose Admin Acetaminophen 650 mg 03/20/18 10:28 03/21/18 00:24 Tylenol 650 Mg Supp LA 650 mg Q6 PRN Administration Fever >100.4 F Albuterol/Ipratropium 3 ml 03/21/18 14:00 03/21/18 13:58 Duoneb 3 Mg/0.5 Mg (3 Ml) Ud INH 3 ml RQ6 BELL Administration Aspirin 81 mg 03/20/18 10:00 03/20/18 11:21 Aspirin Chewable PO 81 mg DAILY BELL Administration Epoetin Mario 4,000 unit 03/19/18 18:00 03/21/18 12:08 Procrit IV 4,000 unit TTS BELL Administration Heparin Sodium (Porcine) 5,000 units 03/20/18 22:00 03/20/18 22:21 Heparin SC 5,000 units Q12 BELL Administration Aztreonam 1 gm/ Sodium 100 mls @ 100 mls/hr 03/19/18 18:30 03/20/18 18:34 Chloride IVPB 100 mls/hr Q24H BELL Administration Protocol Tigecycline 50 mg/ Sodium 100 mls @ 100 mls/hr 03/20/18 23:00 03/20/18 22:21 Chloride IVPB 100 mls/hr Q12H BELL Administration Protocol Dexmedetomidine HCl 200 mcg/ 50 mls @ 4.08 mls/hr 03/20/18 11:06 03/21/18 07: 18 Sodium Chloride IV 0.7 mcg/kg/hr TITR PRN 14.28 mls/hr Agitation Administration Protocol 0.2 MCG/KG/HR Pantoprazole Sodium 40 mg 03/20/18 10:00 03/20/18 11:21 Protonix Inj IVP 40 mg DAILY BELL Administration Paricalcitol 2 mcg 03/19/18 18:00 03/19/18 20:52 Zemplar IV 2 mcg TTS BELL Administration - Patient Studies Lab Studies: Microbiology Studies 03/19/18 16:54 MRSA Culture (Admit) - Final Naris MRSA NOT DETECTED 03/19/18 14:30 S.aureus & Coag-Neg Staph PNA FISH - Final Blood Blood Culture - Preliminary Gram Positive Cocci Gram Stain - Final 03/19/18 14:00 Blood Culture - Preliminary Blood NO GROWTH AFTER 24 HOURS Lab Studies 03/21/18 03/21/18 03/21/18 Range/Units 12:46 06:26 06:26 WBC 8.6 (4.8-10.8) K/uL RBC 3.30 L (4.40-5.90) Mil/uL Hgb 10.9 L (12.0-18.0) g/dL Hct 34.0 L (35.0-51.0) % MCV 102.9 H (80.0-94.0) fL MCH 33.1 H (27.0-31.0) pg MCHC 32.2 L (33.0-37.0) g/dL RDW 19.8 H (11.5-14.5) % Plt Count 87 L (130-400) K/uL MPV 8.4 (7.2-11.7) fL Neut % (Auto) 78.5 H (50.0-75.0) % Lymph % (Auto) 10.7 L (20.0-40.0) % [place] % (Auto) 7.6 (0.0-10.0) % Eos % (Auto) 2.7 (0.0-4.0) % Baso % (Auto) 0.5 (0.0-2.0) % Neut # (Auto) 6.7 (1.8-7.0) K/uL Lymph # (Auto) 0.9 L (1.0-4.3) K/uL [place] # (Auto) 0.7 (0.0-0.8) K/uL Eos # (Auto) 0.2 (0.0-0.7) K/uL Baso # (Auto) 0.0 (0.0-0.2) K/uL Puncture Site pCO2 (35-45) mm/Hg pO2 (80-100) mm/Hg HCO3 (21-28) mmol/L ABG pH (7.35-7.45) ABG Total CO2 (22-28) mmol/L ABG O2 Saturation (95-98) % ABG Base Excess (-2.0-3.0) mmol/L ABG Hemoglobin (11.7-17.4) g/dL ABG Carboxyhemoglobin (0.5-1.5) % POC ABG HHb (Measured) (0.0-5.0) % ABG Methemoglobin (0.0-3.0) % Esvin Test A-a O2 Difference mm/Hg Respiratory Index Hgb O2 Saturation (95.0-98.0) % Vent Mode Mechanical Rate FiO2 % Tidal Volume PEEP Sodium 143 (132-148) mmol/L Potassium 3.4 L (3.6-5.2) mmol/L Chloride 104 (98-107) mmol/L Carbon Dioxide 27 (22-30) mmol/L Anion Gap 16 (10-20) BUN 34 H (9-20) mg/dL Creatinine 4.2 H (0.8-1.5) mg/dL Est GFR ( Amer) 17 Est GFR (Non-Af Amer) 14 POC Glucose (mg/dL) 112 H (65-110) mg/dL Random Glucose 202 H (75-110) mg/dL Calcium 8.7 (8.6-10.4) mg/dl Phosphorus 1.7 L (2.5-4.5) mg/dL Magnesium 2.4 H (1.6-2.3) mg/dL Total Bilirubin 1.5 H (0.2-1.3) mg/dL AST 32 (17-59) U/L ALT 30 (21-72) U/L Alkaline Phosphatase 107 (38-126) U/L Total Protein 5.6 L (6.3-8.3) g/dL Albumin 3.1 L (3.5-5.0) g/dL Globulin 2.5 (2.2-3.9) gm/dL Albumin/Globulin Ratio 1.3 (1.0-2.1) Urine Color (YELLOW) Urine Clarity (Clear) Urine pH (5.0-8.0) Ur Specific [place] (1.003-1.030) Urine Protein (NEGATIVE) mg/dL Urine Glucose (UA) (Normal) mg/dL Urine Ketones (NEGATIVE) mg/dL Urine Blood (NEGATIVE) Urine Nitrate (NEGATIVE) Urine Bilirubin (NEGATIVE) Urine Urobilinogen (0.2-1.0) mg/dL Ur Leukocyte Esterase (Negative) Annita/uL Urine WBC (Auto) (0-5) /hpf Urine RBC (Auto) (0-3) /hpf Urine Bacteria (<OCC) 03/21/18 03/21/18 03/21/18 Range/Units 06:15 05:36 00:57 WBC (4.8-10.8) K/uL RBC (4.40-5.90) Mil/uL Hgb (12.0-18.0) g/dL Hct (35.0-51.0) % MCV (80.0-94.0) fL MCH (27.0-31.0) pg MCHC (33.0-37.0) g/dL RDW (11.5-14.5) % Plt Count (130-400) K/uL MPV (7.2-11.7) fL Neut % (Auto) (50.0-75.0) % Lymph % (Auto) (20.0-40.0) % [place] % (Auto) (0.0-10.0) % Eos % (Auto) (0.0-4.0) % Baso % (Auto) (0.0-2.0) % Neut # (Auto) (1.8-7.0) K/uL Lymph # (Auto) (1.0-4.3) K/uL [place] # (Auto) (0.0-0.8) K/uL Eos # (Auto) (0.0-0.7) K/uL Baso # (Auto) (0.0-0.2) K/uL Puncture Site Rr pCO2 34 L (35-45) mm/Hg pO2 103 H (80-100) mm/Hg HCO3 28.1 H (21-28) mmol/L ABG pH 7.51 H (7.35-7.45) ABG Total CO2 28.1 H (22-28) mmol/L ABG O2 Saturation 98.8 H (95-98) % ABG Base Excess 4.1 H (-2.0-3.0) mmol/L ABG Hemoglobin 10.9 L (11.7-17.4) g/dL ABG Carboxyhemoglobin 2.3 H (0.5-1.5) % POC ABG HHb (Measured) 1.2 (0.0-5.0) % ABG Methemoglobin 1.0 (0.0-3.0) % Esvin Test Pos A-a O2 Difference 140.0 mm/Hg Respiratory Index 1.4 Hgb O2 Saturation 95.5 (95.0-98.0) % Vent Mode Prvc Mechanical Rate 18 FiO2 40.0 % Tidal Volume 500 PEEP 5 Sodium (132-148) mmol/L Potassium (3.6-5.2) mmol/L Chloride (98-107) mmol/L Carbon Dioxide (22-30) mmol/L Anion Gap (10-20) BUN (9-20) mg/dL Creatinine (0.8-1.5) mg/dL Est GFR ( Amer) Est GFR (Non-Af Amer) POC Glucose (mg/dL) 193 H (65-110) mg/dL Random Glucose (75-110) mg/dL Calcium (8.6-10.4) mg/dl Phosphorus (2.5-4.5) mg/dL Magnesium (1.6-2.3) mg/dL Total Bilirubin (0.2-1.3) mg/dL AST (17-59) U/L ALT (21-72) U/L Alkaline Phosphatase (38-126) U/L Total Protein (6.3-8.3) g/dL Albumin (3.5-5.0) g/dL Globulin (2.2-3.9) gm/dL Albumin/Globulin Ratio (1.0-2.1) Urine Color Yellow (YELLOW) Urine Clarity Turbid (Clear) Urine pH 6.0 (5.0-8.0) Ur Specific [place] 1.023 (1.003-1.030) Urine Protein 2+ H (NEGATIVE) mg/dL Urine Glucose (UA) Normal (Normal) mg/dL Urine Ketones Trace (NEGATIVE) mg/dL Urine Blood 3+ H (NEGATIVE) Urine Nitrate Negative (NEGATIVE) Urine Bilirubin Negative (NEGATIVE) Urine Urobilinogen Normal (0.2-1.0) mg/dL Ur Leukocyte Esterase 2+ H (Negative) Annita/uL Urine WBC (Auto) 79768 H (0-5) /hpf Urine RBC (Auto) 4437 H (0-3) /hpf Urine Bacteria Few H (<OCC) 03/20/18 03/20/18 03/20/18 Range/Units 23:41 17:50 06:52 WBC (4.8-10.8) K/uL RBC (4.40-5.90) Mil/uL Hgb (12.0-18.0) g/dL Hct (35.0-51.0) % MCV (80.0-94.0) fL MCH (27.0-31.0) pg MCHC (33.0-37.0) g/dL RDW (11.5-14.5) % Plt Count (130-400) K/uL MPV (7.2-11.7) fL Neut % (Auto) (50.0-75.0) % Lymph % (Auto) (20.0-40.0) % [place] % (Auto) (0.0-10.0) % Eos % (Auto) (0.0-4.0) % Baso % (Auto) (0.0-2.0) % Neut # (Auto) (1.8-7.0) K/uL Lymph # (Auto) (1.0-4.3) K/uL [place] # (Auto) (0.0-0.8) K/uL Eos # (Auto) (0.0-0.7) K/uL Baso # (Auto) (0.0-0.2) K/uL Puncture Site pCO2 (35-45) mm/Hg pO2 (80-100) mm/Hg HCO3 (21-28) mmol/L ABG pH (7.35-7.45) ABG Total CO2 (22-28) mmol/L ABG O2 Saturation (95-98) % ABG Base Excess (-2.0-3.0) mmol/L ABG Hemoglobin (11.7-17.4) g/dL ABG Carboxyhemoglobin (0.5-1.5) % POC ABG HHb (Measured) (0.0-5.0) % ABG Methemoglobin (0.0-3.0) % Esvin Test A-a O2 Difference mm/Hg Respiratory Index Hgb O2 Saturation (95.0-98.0) % Vent Mode Mechanical Rate FiO2 % Tidal Volume PEEP Sodium (132-148) mmol/L Potassium (3.6-5.2) mmol/L Chloride (98-107) mmol/L Carbon Dioxide (22-30) mmol/L Anion Gap (10-20) BUN (9-20) mg/dL Creatinine (0.8-1.5) mg/dL Est GFR ( Amer) Est GFR (Non-Af Amer) POC Glucose (mg/dL) 184 H 148 H 71 (65-110) mg/dL Random Glucose (75-110) mg/dL Calcium (8.6-10.4) mg/dl Phosphorus (2.5-4.5) mg/dL Magnesium (1.6-2.3) mg/dL Total Bilirubin (0.2-1.3) mg/dL AST (17-59) U/L ALT (21-72) U/L Alkaline Phosphatase (38-126) U/L Total Protein (6.3-8.3) g/dL Albumin (3.5-5.0) g/dL Globulin (2.2-3.9) gm/dL Albumin/Globulin Ratio (1.0-2.1) Urine Color (YELLOW) Urine Clarity (Clear) Urine pH (5.0-8.0) Ur Specific [place] (1.003-1.030) Urine Protein (NEGATIVE) mg/dL Urine Glucose (UA) (Normal) mg/dL Urine Ketones (NEGATIVE) mg/dL Urine Blood (NEGATIVE) Urine Nitrate (NEGATIVE) Urine Bilirubin (NEGATIVE) Urine Urobilinogen (0.2-1.0) mg/dL Ur Leukocyte Esterase (Negative) Annita/uL Urine WBC (Auto) (0-5) /hpf Urine RBC (Auto) (0-3) /hpf Urine Bacteria (<OCC) Laboratory Results - last 24 hr 03/20/18 03/20/18 03/20/18 06:52 17:50 23:41 WBC RBC Hgb Hct MCV MCH MCHC RDW Plt Count MPV Neut % (Auto) Lymph % (Auto) [place] % (Auto) Eos % (Auto) Baso % (Auto) Neut # (Auto) Lymph # (Auto) [place] # (Auto) Eos # (Auto) Baso # (Auto) Puncture Site pCO2 pO2 HCO3 ABG pH ABG Total CO2 ABG O2 Saturation ABG Base Excess ABG Hemoglobin ABG Carboxyhemoglobin POC ABG HHb (Measured) ABG Methemoglobin Esvin Test A-a O2 Difference Respiratory Index Hgb O2 Saturation Vent Mode Mechanical Rate FiO2 Tidal Volume PEEP Sodium Potassium Chloride Carbon Dioxide Anion Gap BUN Creatinine Est GFR ( Amer) Est GFR (Non-Af Amer) POC Glucose (mg/dL) 71 148 H 184 H Random Glucose Calcium Phosphorus Magnesium Total Bilirubin AST ALT Alkaline Phosphatase Total Protein Albumin Globulin Albumin/Globulin Ratio Urine Color Urine Clarity Urine pH Ur Specific [place] Urine Protein Urine Glucose (UA) Urine Ketones Urine Blood Urine Nitrate Urine Bilirubin Urine Urobilinogen Ur Leukocyte Esterase Urine WBC (Auto) Urine RBC (Auto) Urine Bacteria 03/21/18 03/21/18 03/21/18 00:57 05:36 06:15 WBC RBC Hgb Hct MCV MCH MCHC RDW Plt Count MPV Neut % (Auto) Lymph % (Auto) [place] % (Auto) Eos % (Auto) Baso % (Auto) Neut # (Auto) Lymph # (Auto) [place] # (Auto) Eos # (Auto) Baso # (Auto) Puncture Site Rr pCO2 34 L pO2 103 H HCO3 28.1 H ABG pH 7.51 H ABG Total CO2 28.1 H ABG O2 Saturation 98.8 H ABG Base Excess 4.1 H ABG Hemoglobin 10.9 L ABG Carboxyhemoglobin 2.3 H POC ABG HHb (Measured) 1.2 ABG Methemoglobin 1.0 Esvin Test Pos A-a O2 Difference 140.0 Respiratory Index 1.4 Hgb O2 Saturation 95.5 Vent Mode Prvc Mechanical Rate 18 FiO2 40.0 Tidal Volume 500 PEEP 5 Sodium Potassium Chloride Carbon Dioxide Anion Gap BUN Creatinine Est GFR ( Amer) Est GFR (Non-Af Amer) POC Glucose (mg/dL) 193 H Random Glucose Calcium Phosphorus Magnesium Total Bilirubin AST ALT Alkaline Phosphatase Total Protein Albumin Globulin Albumin/Globulin Ratio Urine Color Yellow Urine Clarity Turbid Urine pH 6.0 Ur Specific [place] 1.023 Urine Protein 2+ H Urine Glucose (UA) Normal Urine Ketones Trace Urine Blood 3+ H Urine Nitrate Negative Urine Bilirubin Negative Urine Urobilinogen Normal Ur Leukocyte Esterase 2+ H Urine WBC (Auto) 72902 H Urine RBC (Auto) 4437 H Urine Bacteria Few H 03/21/18 03/21/18 03/21/18 06:26 06:26 12:46 WBC 8.6 RBC 3.30 L Hgb 10.9 L Hct 34.0 L MCV 102.9 H MCH 33.1 H MCHC 32.2 L RDW 19.8 H Plt Count 87 L MPV 8.4 Neut % (Auto) 78.5 H Lymph % (Auto) 10.7 L [place] % (Auto) 7.6 Eos % (Auto) 2.7 Baso % (Auto) 0.5 Neut # (Auto) 6.7 Lymph # (Auto) 0.9 L [place] # (Auto) 0.7 Eos # (Auto) 0.2 Baso # (Auto) 0.0 Puncture Site pCO2 pO2 HCO3 ABG pH ABG Total CO2 ABG O2 Saturation ABG Base Excess ABG Hemoglobin ABG Carboxyhemoglobin POC ABG HHb (Measured) ABG Methemoglobin Esvin Test A-a O2 Difference Respiratory Index Hgb O2 Saturation Vent Mode Mechanical Rate FiO2 Tidal Volume PEEP Sodium 143 Potassium 3.4 L Chloride 104 Carbon Dioxide 27 Anion Gap 16 BUN 34 H Creatinine 4.2 H Est GFR ( Amer) 17 Est GFR (Non-Af Amer) 14 POC Glucose (mg/dL) 112 H Random Glucose 202 H Calcium 8.7 Phosphorus 1.7 L Magnesium 2.4 H Total Bilirubin 1.5 H AST 32 ALT 30 Alkaline Phosphatase 107 Total Protein 5.6 L Albumin 3.1 L Globulin 2.5 Albumin/Globulin Ratio 1.3 Urine Color Urine Clarity Urine pH Ur Specific [place] Urine Protein Urine Glucose (UA) Urine Ketones Urine Blood Urine Nitrate Urine Bilirubin Urine Urobilinogen Ur Leukocyte Esterase Urine WBC (Auto) Urine RBC (Auto) Urine Bacteria Assessment/Plan - Assessment and Plan (Free Text) Plan: Above patient seen and examined at bedside. Patient has h/o heart failure with pulmonary congestion. Patient intubated, tolerating CPAP trials with 10/5 with Fio2 30%, RSBI 30, able to follow commands -Hypoxic respiratory failure:continue ventilation to keep spo2 >92 -ESRD o HD: will benefit from negative balance, HD today -Daily CPAP trials -CAD: continue antiplatelet as per cardiology -continue dvt/pud ppx Patient remains critical cc time 45 minutes Above resident docuements my clinical management. - Date & Time Date: 03/21/18 Time: 14:31
--- NOTE | 2018-03-21 11:06 | CP.PCM.PN ---
Subjective - Date & Time of Evaluation Date of Evaluation: 03/21/18 Time of Evaluation: 09:35 - Subjective Subjective: patient seen and examined Tolerating CPAP More responsive getting hemodialysis afebrile Being treated for pneumonia Objective - Vital Signs/Intake and Output Vital Signs (last 24 hours): Temp Pulse Resp BP Pulse Ox 98.9 F 80 15 173/30 H 100 03/21/18 04:00 03/21/18 06:35 03/21/18 06:35 03/21/18 06:35 03/21/18 06:35 Intake and Output: 03/21/18 03/21/18 06:59 18:59 Intake Total 831.6 48 Output Total 400 Balance 431.6 48 - Medications Medications: Current Medications Acetaminophen (Tylenol 650 Mg Supp) 650 mg IA Q6 PRN PRN Reason: Fever >100.4 F Last Admin: 03/21/18 00:24 Dose: 650 mg Albuterol/Ipratropium (Duoneb 3 Mg/0.5 Mg (3 Ml) Ud) 3 ml INH RQ4 [facility] Aspirin (Aspirin Chewable) 81 mg PO DAILY [facility] Last Admin: 03/20/18 11:21 Dose: 81 mg Epoetin Mario (Procrit) 4,000 unit IV TTS [facility] Last Admin: 03/19/18 20:51 Dose: 4,000 unit Heparin Sodium (Porcine) (Heparin) 5,000 units SC Q12 [facility] Last Admin: 03/20/18 22:21 Dose: 5,000 units Aztreonam 1 gm/ Sodium (Chloride) 100 mls @ 100 mls/hr IVPB Q24H [facility] PRN Reason: Protocol Last Admin: 03/20/18 18:34 Dose: 100 mls/hr Tigecycline 50 mg/ Sodium (Chloride) 100 mls @ 100 mls/hr IVPB Q12H [facility] PRN Reason: Protocol Last Admin: 03/20/18 22:21 Dose: 100 mls/hr Dexmedetomidine HCl 200 mcg/ (Sodium Chloride) 50 mls @ 4.08 mls/hr IV TITR PRN ; Protocol; 0.2 MCG/KG/HR PRN Reason: Agitation Last Admin: 03/21/18 07:18 Dose: 0.7 mcg/kg/hr, 14.28 mls/hr Pantoprazole Sodium (Protonix Inj) 40 mg IVP DAILY [facility] Last Admin: 03/20/18 11:21 Dose: 40 mg Paricalcitol (Zemplar) 2 mcg IV TTS [facility] Last Admin: 03/19/18 20:52 Dose: 2 mcg - Labs Labs: 03/21/18 06:26 03/21/18 06:26 PT 10.7 SECONDS (9.7-12.2) 03/19/18 14:18 INR 1.0 03/19/18 14:18 APTT 39 SECONDS (21-34) H 03/19/18 14:18 - Head Exam Head Exam: ATRAUMATIC, NORMOCEPHALIC - ENT Exam ENT Exam: Mucous Membranes Moist - Neck Exam Neck Exam: Normal Inspection - Respiratory Exam Respiratory Exam: Decreased Breath Sounds - Cardiovascular Exam Cardiovascular Exam: REGULAR RHYTHM - GI/Abdominal Exam GI & Abdominal Exam: Soft - Extremities Exam Extremities Exam: Pedal Edema - Neurological Exam Neurological Exam: Awake Assessment and Plan (1) Hypercapnic respiratory failure Assessment & Plan: wean to extubate Continue antibiotics Continue hemodialysis Status: Acute (2) CHF (congestive heart failure), NYHA class III Status: Acute (3) ESRD (end stage renal disease) on dialysis Status: Chronic
--- NOTE | 2018-03-21 11:29 | PN ---
Copied To: Carlos Andrews DO Attending MD: Carlos Andrews DO DATE: 03/21/2018 SUBJECTIVE: I saw him in the intensive care unit, bed 16 at [facility]. He is on the ventilator still, but he is alert. He is moving his right arm. I know he wants the tube out of his mouth and wants to go off the ventilator. He failed the BiPAP, that is why they put him on the ventilator. He is also spiking temperatures of 102 last night, and he appears to be quite septic. He has been seen by Renal, occupational work experience teacher, Neuro. There are consults pending for Infectious Disease. PHYSICAL EXAMINATION: VITAL SIGNS: He has 102 temp, 80 pulse, 168/52 blood pressure, 18 respiratory rate, 100% O2 sat on ventilator. HEENT: Head is atraumatic and normocephalic. HEART: Regular rate. LUNGS: Decreased breath sounds, but clear. ABDOMEN: Soft. EXTREMITIES: Trace edema. LABORATORY DATA: He had some lab tests done. 7.6 white count, 10 hemoglobin, 31.6 hematocrit, 90 platelets. 146 sodium, potassium 3, potassium needs to be replaced. BUN 17, creatinine 3.1, calcium is 9, magnesium 2.2. Total bilirubin is 0.8, AST is 21, ALT is 31, alkaline phosphatase 91. ASSESSMENT: We will continue with aggressive treatment and care. He is very sick with acute respiratory failure, hypercapnic respiratory failure, congestive heart failure, end-stage renal disease, and sepsis. PLAN: We will continue aggressive treatment and care. Hopefully, we will get him extubated in the next 24 hours. Carlos Andrews DO
[2018-03-21] MEDS ORDERED: Albuterol-Ipratrop 3 mg / 0.5 (3 ml) UD INH SCH (12:00)
[2018-03-21] MEDS: EPOETIN ALFA 4,000 UNIT/ML ML Dialysis IV SCH (12:08)
[2018-03-21] MEDS: Albuterol-Ipratrop 3 mg / 0.5 (3 ml) UD INH SCH ×2 (13:58→19:44)
[2018-03-21] MEDS ORDERED: MethylPREDNISolone 40 mg Vial IVP STA (16:18)
[2018-03-21] MEDS ORDERED: Albuterol-Ipratrop 3 mg / 0.5 (3 ml) UD INH STA (16:19)
--- NOTE | 2018-03-21 16:46 | PCM.PROC ---
Procedures Attestation:: I certify that I have explained the specified Operation(s) or Procedure(s), risks, benefits and reasonable alternatives to the Patient and/or other person responsible. The opportunity was given to ask questions and all questions answered - Extubation RSBI Score: 45 (Duoneb, Bumex 2mg, solumedrol 40mg IVP and nitro ggt administered. ) Clinical Parameters: Hemodynamically Stable, Intact Cough/Gag Reflex, Spontaneous Respirations, Acceptable Vent Settings (FIO2<50%, PEEP<8, PaO2>75, pH>7.25) Weaning Criteria Met: Yes General Weaning Approaches: Pressure Support Ventilation (PSV) Weaning Patient Condition: Patient has been successfully extubated and assessed Oxygen Therapy: O2 via Venti Mask Patient Tolerated Procedure: Well
--- NOTE | 2018-03-21 17:29 | CP.PCM.PN ---
Subjective - Date & Time of Evaluation Date of Evaluation: 03/21/18 Time of Evaluation: 17:29 - Subjective Subjective: pt is seen and examined, follow up consult is dictated #[id number] s/p hd today, had a uf about 3.0lit s/p extubation Objective - Vital Signs/Intake and Output Vital Signs (last 24 hours): Temp Pulse Resp BP Pulse Ox 98.1 F 115 H 19 87/27 L 100 03/21/18 13:45 03/21/18 16:52 03/21/18 16:52 03/21/18 16:52 03/21/18 16:52 Intake and Output: 03/21/18 03/21/18 06:59 18:59 Intake Total 831.6 202.0 Output Total 400 700 Balance 431.6 -498.0 - Medications Medications: Current Medications Acetaminophen (Tylenol 650 Mg Supp) 650 mg [place] Q6 PRN PRN Reason: Fever >100.4 F Last Admin: 03/21/18 00:24 Dose: 650 mg Albuterol/Ipratropium (Duoneb 3 Mg/0.5 Mg (3 Ml) Ud) 3 ml INH RQ6 [facility] Last Admin: 03/21/18 13:58 Dose: 3 ml Aspirin (Aspirin Chewable) 81 mg PO DAILY [facility] Last Admin: 03/20/18 11:21 Dose: 81 mg Epoetin Mario (Procrit) 4,000 unit IV TTS [facility] Last Admin: 03/21/18 12:08 Dose: 4,000 unit Heparin Sodium (Porcine) (Heparin) 5,000 units SC Q12 [facility] Last Admin: 03/20/18 22:21 Dose: 5,000 units Aztreonam 1 gm/ Sodium (Chloride) 100 mls @ 100 mls/hr IVPB Q24H [facility] PRN Reason: Protocol Last Admin: 03/20/18 18:34 Dose: 100 mls/hr Tigecycline 50 mg/ Sodium (Chloride) 100 mls @ 100 mls/hr IVPB Q12H [facility] PRN Reason: Protocol Last Admin: 03/20/18 22:21 Dose: 100 mls/hr Dexmedetomidine HCl 200 mcg/ (Sodium Chloride) 50 mls @ 4.08 mls/hr IV TITR PRN ; Protocol; 0.2 MCG/KG/HR PRN Reason: Agitation Last Admin: 03/21/18 07:18 Dose: 0.7 mcg/kg/hr, 14.28 mls/hr Nitroglycerin/Dextrose (Nitroglycerin 50 Mg/250 Ml D5w) 50 mg in 250 mls @ 1.5 mls/hr IV .Q24H [facility]; 5 MCG/MIN PRN Reason: Protocol Pantoprazole Sodium (Protonix Inj) 40 mg IVP DAILY [facility] Last Admin: 03/20/18 11:21 Dose: 40 mg Paricalcitol (Zemplar) 2 mcg IV TTS [facility] Last Admin: 03/19/18 20:52 Dose: 2 mcg - Labs Labs: 03/21/18 06:26 03/21/18 06:26 PT 10.7 SECONDS (9.7-12.2) 03/19/18 14:18 INR 1.0 03/19/18 14:18 APTT 39 SECONDS (21-34) H 03/19/18 14:18
[2018-03-21] MEDS: Paricalcitol 2 mcg/ml Inj IV SCH (17:47)
[2018-03-21 18:23] LABS: ARTERIAL BLOOD GAS HCO3 29.8 mmol/L (21-28); ARTERIAL BLOOD GAS HEMOGLOBIN 10.8 g/dL (11.7-17.4); ARTERIAL BLOOD GAS PCO2 41 mm/Hg (35-45); ARTERIAL BLOOD GAS PH 7.48 (7.35-7.45); ARTERIAL BLOOD GAS PO2 64 mm/Hg (80-100); ARTERIAL BLOOD GAS TCO2 31.8 mmol/L (22-28)
[2018-03-21] MEDS: Nitroglycerin 50mg in D5W 50 MG/250 ML BOTTLE IV SCH (19:07)
[2018-03-21] MEDS: Aztreonam 1 GM in Sodium Chloride 0.9% 100 ML IVPB SCH (19:11)
[2018-03-22] MEDS: Albuterol-Ipratrop 3 mg / 0.5 (3 ml) UD INH SCH ×4 (01:35→19:22)
--- NOTE | 2018-03-22 03:00 | PN ---
Copied To: Martin Ortiz MD Attending MD: Martin Ortiz MD DATE: 03/21/2018 FOLLOWUP RENAL CONSULTATION LOCATION: The patient is located in ICU, bed 16. SUBJECTIVE: Mr. Gonzales is a 67-year-old elderly obese [place]kin[place] male with a past medical history significant for longstanding hypertension, diabetes, hyperlipidemia, COPD, asthma, coronary artery disease, status post CABG, CVA with left-sided weakness who was sent from the long-term with lethargy and hypotension. The patient was found to have severe CO2 retention and unsuccessful BiPAP, and subsequently the patient was intubated. He is status post hemodialysis on Sunday and today, had ultrafiltration about 2.7 liters. The patient was extubated this evening. The patient is not in distress. Denies any chest pain or palpitation. Denies any fever or cough. The patient does complain of lower back pain. PHYSICAL EXAMINATION: VITAL SIGNS: As follows: Blood pressure 137/57, pulse 109, respirations 21, temperature 98.1 and T-max is 102.6. GENERAL: Mr. Gonzales is a 67-year-old elderly male, moderately built, moderately nourished, not in distress. HEENT: Pupils are normal and reactive to light and accommodation. Conjunctivae are pink. Sclerae are anicteric. Tongue is moist. Trachea is midline. LUNGS: Symmetric on both sides. Bilateral breath sounds present. The patient has basal crackles present, right more than the left. CARDIOVASCULAR SYSTEM: Agar at the fifth intercostal space, midclavicular line. S1, S2 audible. No murmur or gallop. ABDOMEN: Normal in appearance. Soft, tympanitic. No guarding. No rigidity. No hepatosplenomegaly. CENTRAL NERVOUS SYSTEM: The patient is alert, awake, oriented x3. Nonfocal neuro examination. Cranial nerves II-XII grossly intact. Sensory and motor system is within normal limits. EXTREMITIES: No cyanosis, no clubbing. Trace edema in both lower extremities. CURRENT MEDICATIONS: Include as follows: Aspirin 81 mg daily, Azactam 1 g every 24 hours, DuoNeb inhaler 3 mL every 6 hours, subcu heparin 5000 units every 12 hours, IV nitroglycerin for blood pressure, 40 mg IV daily, Tylenol and Zemplar 2 mcg three times a week. LABORATORY DATA: Blood cultures as of 03/19/2018: Blood culture x1 negative. Blood culture x1 as of 03/19/2018, gram-positive cocci identified as Staphylococcus aureus and Staphylococcus coagulase negative. Other laboratory data as of 03/21/2018: WBC 8.6, hemoglobin 10.9, hematocrit 34, platelets 87. ABG this evening, pH of 7.48, pCO2 of 41, pO2 of 64, bicarb of 29.8, and saturation 96.21%. Sodium 143, potassium 3.4, chloride 104, CO2 of 27, BUN 34, creatinine 4.2, glucose 202, calcium 8.7, phosphorus 1.7, magnesium 2.4. Total bili 1.5, AST 32, ALT 30, alkaline phosphatase 107, total protein 5.6, albumin is 3.1. Urine: Yellow, turbid, pH of 6, specific gravity 1.023, protein 2+, glucose normal, ketones trace, blood 3+, nitrites negative, bilirubin and urobilinogen normal, leukocyte esterase 2+, wbc's 21,964, rbc's 4437, bacteria few. ASSESSMENT AND PLAN: 1. End-stage renal disease. Continue hemodialysis three times a week, Sunday, and Sunday. The patient underwent hemodialysis today and had ultrafiltration about 2.7 liters. The case was discussed with the enterprise systems engineer who suggesting extra hemodialysis in the morning to keep him in negative balance to help his pleural effusion. 2. Hypertension. Continue his current medications. Continue intravenous nitroglycerin and try to taper off. 3. Bilateral pleural effusion, right more than the left. Rule out aspiration pneumonia. 4. Staphylococcus aureus sepsis. Source is not clear. 5. Rule out urosepsis. Follow up the urine cultures and continue antibiotics, Azactam and tigecycline 50 mg intravenous piggyback every 12 hours. The patient underwent dialysis this afternoon and had ultrafiltration about net three liters. We will schedule for extra dialysis in the morning. We will follow with you. Thank you for allowing me to participate in your patient's care. Martin Ortiz MD
[2018-03-22 06:19] LABS: BASO % 0.2 % (0.0-2.0); HEMOGLOBIN 9.9 g/dL (12.0-18.0); LYMPH # 0.3 K/uL (1.0-4.3); LYMPH % 3.7 % (20.0-40.0); MEAN CELL VOLUME 102.2 fL (80.0-94.0); MEAN CORPUSCULAR HEMOGLOBIN 32.8 pg (27.0-31.0); MEAN CORPUSCULAR HGB CONC 32.1 g/dL (33.0-37.0); MEAN PLATELET VOLUME 8.4 fL (7.2-11.7); MONO # 0.5 K/uL (0.0-0.8); NEUT # 6.9 K/uL (1.8-7.0); NEUT % 90.1 % (50.0-75.0); NRBC % 0.1 % (0.0-2.0); PLATELET COUNT 79 K/uL (130-400); RED CELL DISTRIBUTION WIDTH 19.8 % (11.5-14.5); WHITE BLOOD COUNT 7.7 K/uL (4.8-10.8)
[2018-03-22 06:27] LABS: ALB/GLOB RATIO 1.2 (1.0-2.1); ALBUMIN 3.3 g/dL (3.5-5.0); CALCIUM 8.6 mg/dl (8.6-10.4)
--- NOTE | 2018-03-22 07:49 | CON ---
Copied To: Sergo Holbrook MD Attending MD: Sergo Holbrook MD DATE: 03/22/2018 Consult requested by the overlock elastic attacher. This patient is a 67-year-old male. [facility] He was here a week ago according to the history written by Dr. Andrews. He has a history of end-stage renal disease, has been on dialysis, was having hypotension and they were not going to do dialysis on him. He also had altered mental status, hypotension, and was transferred. He has coronary artery disease, diabetes, CVA. He has a history of pacemaker. The staff note is that his mental status was altered and unable to provide any history. Right now, he is intubated. He is undergoing dialysis today, and he also has a triple-lumen in the right neck. He has had prior weakness in the left upper and bilateral lower extremities from previous CVAs, and he has a past medical history of anemia, asthma, CHF, COPD, CVA, depression, hypertension, hypercholesterolemia. PAST SURGICAL HISTORY: Significant for CABG, dialysis, and dual-chamber pacemaker. ALLERGIES: HE IS ALLERGIC TO IODINE, PLAVIX, PENICILLIN, AND IV DYE. SOCIAL HISTORY: Negative for smoking or drinking or drug abuse. MEDICATIONS: In the prison were tramadol, Ambien, Renvela, MiraLax, midodrine, Zofran, lactulose, lisinopril, Humulin, gabapentin, Nephro-Renaldo, Lasix, ferrous sulfate, Colace, atorvastatin, aspirin, and Xanax. REVIEW OF SYSTEMS: Now I am unable to obtain for altered mental status, but he was found to have a very high white count, and he had altered mental status. PAST MEDICAL HISTORY: Reviewed. Past medical history is significant for never smoked, has congestive heart failure, high cholesterol, hypertension, pacemaker, peripheral vascular disease, history of asthma, chronic COPD, history of sleep apnea, and he has a CVA, left upper and bilateral lower extremity weakness, has cataract problems, chronic kidney disease, diabetes type 2, anemia, dermatological problems. He has sacral ulcer and history of falls. He has gastrointestinal diseases, dysphagia. He has no urinary symptoms. MEDICATIONS: On examination of his medications now here, he is on Tylenol, albuterol, Azactam, we are giving 1 g daily. He is on dexmedetomidine. He is dependent on the vent. Epogen, heparin subcu. He is on nitroglycerin. He is on pantoprazole, and I had added Tygacil yesterday. PHYSICAL EXAMINATION: GENERAL: I find he is sedated, lethargic, intubated, had dialysis. He has a left arm shunt. He also has a triple lumen in the right IJ. VITAL SIGNS: T-max is 98, pulse is 80, blood pressure is 103/48, respirations are 21. HEENT: Head is atraumatic, normocephalic. Pupils, he is sedated. NECK: Supple. JVP is flat. LUNGS: Decreased breath sounds bilaterally. No rhonchi or wheezing. HEART: S1, S2 are regular. ABDOMEN: Soft, nontender. No guarding, no rigidity present. EXTREMITIES: Have pedal edema present. LABORATORY DATA: His labs are noted. Labs show white count is 8.6, hemoglobin 10.9, hematocrit 34 today, platelet count is 87. His count when he came in was also 8.8 and he had 81 neutrophils, 3 bands. His chemistry shows sodium is 143, potassium 3.4, chloride of 104, CO2 is 27, BUN is 34, creatinine is 4.2 and he is a dialysis patient. Micro leblanc, his one blood culture is positive and this is from 03/19/2018, and it shows coagulase-negative staph. This is prior to any triple-lumen insertion, I would think, so we are repeating the cultures. Since he is on dialysis, I can always put him on vancomycin on dialysis, but we will repeat the cultures at this time. He had a procedure done later on. They extubated him today. We will follow the patient's septic workup, came out with one blood culture gram positive, and he also had some retention of urine in is bladder but he is a dialysis patient, so we will follow if he continues to have fevers and at this time, we will leave him on Tygacil and Azactam and he is improving, and we will follow with the ICU team and the awake overnight counselor. Sergo Holbrook MD
[2018-03-22 08:21] LABS: BANDS 2 % (0-2); TOTAL CELLS COUNTED 100
[2018-03-22 08:22] LABS: ANISOCYTOSIS MODERATE; LYMPHOCYTE 3 % (20-40); MONOCYTE 5 % (0-10); NEUTROPHIL 90 % (50-75); PLATELET ESTIMATE DECREASED (NORMAL)
[2018-03-22 08:23] LABS: HYPOCHROMIC SLIGHT
--- NOTE | 2018-03-22 08:34 | RAD ---
Date of service: 03/22/2018 HISTORY: CHF COMPARISON: 03/21/2018 FINDINGS: The right IJV line terminates in the SVC. LUNGS: There is worsening pulmonary venous congestion and worsening opacification of the right. This persistent airspace disease in the right lower lobe. PLEURA: Small pleural effusions, no pneumothorax apparent. CARDIOVASCULAR: There is moderate cardiomegaly. Status post CABG. There is stable position of right-sided permanent pacing device. OSSEOUS STRUCTURES: No significant abnormalities. VISUALIZED UPPER ABDOMEN: Normal. OTHER FINDINGS: None. IMPRESSION: Worsening congestive heart failure with presumable pulmonary edema in the right lung.
--- NOTE | 2018-03-22 09:05 | CP.CCUPN ---
<Yamilet Casas - Last Filed: 03/22/18 16:57> CCU Subjective - Physician Review Subjective (Free Text): ICU Progress note Patient seen and examined at bedside. Patient was extubated yesterday. He offers no complaints now. He is able to speak in full sentences. He denies fever , chills, chest pain, dizziness, abdominal pain, nausea, vomiting, diarrhea, leg pain, dysuria. 03/22/18 16:33 CCU Objective - Vital Signs / Intake & Output Vital Signs (Last 4 hours): Vital Signs Temp Pulse Resp BP Pulse Ox 03/22/18 08:32 98.8 F 03/22/18 06:00 80 17 100 03/22/18 05:41 106 H 16 148/54 L 96 Intake and Output (Last 8hrs): Intake & Output 03/21/18 03/22/18 03/22/18 22:59 06:59 14:59 Intake Total 90.4 128 Output Total 700 Balance -609.6 128 Intake: IV 37 11 Intake, IV Amount 53.4 117 Right Medial Port 45 117 Internal Jugular Right Proximal Port 8.4 Internal Jugular Oral 0 Output: Gastric Amount 700 Stomach 700 Other: # Bowel Movements 1 1 - Physical Exam Head: Positive for: Atraumatic, Normocephalic Pupils: Positive for: PERRL Extroacular Muscles: Positive for: EOMI Mouth: Positive for: Moist Mucous Membranes Neck: Positive for: Other (Right IJ TLC) Respiratory/Chest: Positive for: Decreased Breath Sounds, Other (pacemaker palpable in right anterior chest) Cardiovascular: Positive for: Other (Paced at 90s) Abdomen: Positive for: Normal Bowel Sounds. Negative for: Tenderness Upper Extremity: Positive for: Other (AV fistula left upper extremity, bruit auscultated. Radial pulses present bilaterally. ) Lower Extremity: Positive for: NORMAL PULSES (2+ Dorsalis pedis pulses present bilaterally), Capillary Refill < 2 s. Negative for: CALF TENDERNESS Skin: Positive for: Warm, Dry Psychiatric: Positive for: Other (Awake, alert and oriented) - Medications Active Medications: Active Medications Generic Name Dose Route Start Last Admin Trade Name Freq PRN Reason Stop Dose Admin Acetaminophen 650 mg 03/20/18 10:28 03/22/18 08:32 Tylenol 650 Mg Supp UT 650 mg Q6 PRN Administration Fever >100.4 F Albuterol/Ipratropium 3 ml 03/21/18 14:00 03/22/18 07:28 Duoneb 3 Mg/0.5 Mg (3 Ml) Ud INH 3 ml RQ6 BELL Administration Aspirin 81 mg 03/20/18 10:00 03/21/18 10:11 Aspirin Chewable PO 81 mg DAILY BELL Administration Epoetin Mario 4,000 unit 03/19/18 18:00 03/21/18 12:08 Procrit IV 4,000 unit TTS BELL Administration Heparin Sodium (Porcine) 5,000 units 03/20/18 22:00 03/21/18 21:54 Heparin SC 5,000 units Q12 BELL Administration Aztreonam 1 gm/ Sodium 100 mls @ 100 mls/hr 03/19/18 18:30 03/21/18 19:11 Chloride IVPB 100 mls/hr Q24H BELL Administration Protocol Tigecycline 50 mg/ Sodium 100 mls @ 100 mls/hr 03/20/18 23:00 03/21/18 22:47 Chloride IVPB 100 mls/hr Q12H BELL Administration Protocol Dexmedetomidine HCl 200 mcg/ 50 mls @ 4.08 mls/hr 03/20/18 11:06 03/21/18 19: 09 Sodium Chloride IV 0 mcg/kg/hr TITR PRN 0 mls/hr Agitation Titration Protocol 0.2 MCG/KG/HR Nitroglycerin/Dextrose 50 mg in 250 mls @ 1.5 mls/hr 03/21/18 16:30 03/22/18 00:00 Nitroglycerin 50 Mg/250 Ml D5w IV 40 mcg/min .Q24H BELL 12 mls/hr Protocol Titration 5 MCG/MIN Pantoprazole Sodium 40 mg 03/20/18 10:00 03/21/18 10:11 Protonix Inj IVP 40 mg DAILY BELL Administration Paricalcitol 2 mcg 03/19/18 18:00 03/21/18 17:47 Zemplar IV Not Given TTS BELL - Patient Studies Lab Studies: Microbiology Studies 03/21/18 00:57 Gram Stain - Final Sputum Induced Sputum Culture - Preliminary NORMAL ORAL DAVID 03/19/18 14:30 S.aureus & Coag-Neg Staph PNA FISH - Final Blood Blood Culture - Final Coagulase Neg Staphylococcus Gram Stain - Final 03/21/18 00:57 Urine Culture - Final Urine,Catheterized No Growth (<1,000 CFU/ML) 03/19/18 14:00 Blood Culture - Preliminary Blood NO GROWTH AFTER 48 HOURS Lab Studies 03/22/18 03/22/18 03/21/18 Range/Units 06:01 04:00 18:03 WBC 7.7 (4.8-10.8) K/uL RBC 3.00 L (4.40-5.90) Mil/uL Hgb 9.9 L (12.0-18.0) g/dL Hct 30.7 L (35.0-51.0) % MCV 102.2 H (80.0-94.0) fL MCH 32.8 H (27.0-31.0) pg MCHC 32.1 L (33.0-37.0) g/dL RDW 19.8 H (11.5-14.5) % Plt Count 79 L (130-400) K/uL MPV 8.4 (7.2-11.7) fL Neut % (Auto) 90.1 H (50.0-75.0) % Lymph % (Auto) 3.7 L (20.0-40.0) % [place] % (Auto) 6.0 (0.0-10.0) % Eos % (Auto) 0.0 (0.0-4.0) % Baso % (Auto) 0.2 (0.0-2.0) % Neut # (Auto) 6.9 (1.8-7.0) K/uL Lymph # (Auto) 0.3 L (1.0-4.3) K/uL [place] # (Auto) 0.5 (0.0-0.8) K/uL Eos # (Auto) 0.0 (0.0-0.7) K/uL Baso # (Auto) 0.0 (0.0-0.2) K/uL Neutrophils % (Manual) 90 H (50-75) % Band Neutrophils % 2 (0-2) % Lymphocytes % (Manual) 3 L (20-40) % Monocytes % (Manual) 5 (0-10) % Platelet Estimate Decreased L (NORMAL) Hypochromasia (manual) Slight Anisocytosis (manual) Moderate Macrocytosis (manual) Moderate Puncture Site Rba pCO2 41 (35-45) mm/Hg pO2 64 L (80-100) mm/Hg HCO3 29.8 H (21-28) mmol/L ABG pH 7.48 H (7.35-7.45) ABG Total CO2 31.8 H (22-28) mmol/L ABG O2 Saturation 96.0 (95-98) % ABG Base Excess 6.4 H (-2.0-3.0) mmol/L ABG Hemoglobin 10.8 L (11.7-17.4) g/dL ABG Carboxyhemoglobin 2.8 H (0.5-1.5) % POC ABG HHb (Measured) 3.8 (0.0-5.0) % ABG Methemoglobin 1.4 (0.0-3.0) % Esvin Test Na A-a O2 Difference 34.0 mm/Hg Respiratory Index 0.5 Hgb O2 Saturation 92.0 L (95.0-98.0) % FiO2 21.0 % Sodium 146 (132-148) mmol/L Potassium 3.4 L (3.6-5.2) mmol/L Chloride 103 (98-107) mmol/L Carbon Dioxide 32 H (22-30) mmol/L Anion Gap 14 (10-20) BUN 31 H (9-20) mg/dL Creatinine 3.4 H (0.8-1.5) mg/dL Est GFR ( Amer) 22 Est GFR (Non-Af Amer) 18 POC Glucose (mg/dL) (65-110) mg/dL Random Glucose 168 H (75-110) mg/dL Calcium 8.6 (8.6-10.4) mg/dl Phosphorus 2.4 L (2.5-4.5) mg/dL Magnesium 2.3 (1.6-2.3) mg/dL Total Bilirubin 1.0 (0.2-1.3) mg/dL AST 30 (17-59) U/L ALT 30 (21-72) U/L Alkaline Phosphatase 99 (38-126) U/L Total Protein 5.9 L (6.3-8.3) g/dL Albumin 3.3 L (3.5-5.0) g/dL Globulin 2.6 (2.2-3.9) gm/dL Albumin/Globulin Ratio 1.2 (1.0-2.1) 03/21/18 03/21/18 03/20/18 Range/Units 12:46 06:15 11:44 WBC (4.8-10.8) K/uL RBC (4.40-5.90) Mil/uL Hgb (12.0-18.0) g/dL Hct (35.0-51.0) % MCV (80.0-94.0) fL MCH (27.0-31.0) pg MCHC (33.0-37.0) g/dL RDW (11.5-14.5) % Plt Count (130-400) K/uL MPV (7.2-11.7) fL Neut % (Auto) (50.0-75.0) % Lymph % (Auto) (20.0-40.0) % [place] % (Auto) (0.0-10.0) % Eos % (Auto) (0.0-4.0) % Baso % (Auto) (0.0-2.0) % Neut # (Auto) (1.8-7.0) K/uL Lymph # (Auto) (1.0-4.3) K/uL [place] # (Auto) (0.0-0.8) K/uL Eos # (Auto) (0.0-0.7) K/uL Baso # (Auto) (0.0-0.2) K/uL Neutrophils % (Manual) (50-75) % Band Neutrophils % (0-2) % Lymphocytes % (Manual) (20-40) % Monocytes % (Manual) (0-10) % Platelet Estimate (NORMAL) Hypochromasia (manual) Anisocytosis (manual) Macrocytosis (manual) Puncture Site pCO2 (35-45) mm/Hg pO2 (80-100) mm/Hg HCO3 (21-28) mmol/L ABG pH (7.35-7.45) ABG Total CO2 (22-28) mmol/L ABG O2 Saturation (95-98) % ABG Base Excess (-2.0-3.0) mmol/L ABG Hemoglobin (11.7-17.4) g/dL ABG Carboxyhemoglobin (0.5-1.5) % POC ABG HHb (Measured) (0.0-5.0) % ABG Methemoglobin (0.0-3.0) % Esvin Test A-a O2 Difference mm/Hg Respiratory Index Hgb O2 Saturation (95.0-98.0) % FiO2 % Sodium (132-148) mmol/L Potassium (3.6-5.2) mmol/L Chloride (98-107) mmol/L Carbon Dioxide (22-30) mmol/L Anion Gap (10-20) BUN (9-20) mg/dL Creatinine (0.8-1.5) mg/dL Est GFR ( Amer) Est GFR (Non-Af Amer) POC Glucose (mg/dL) 112 H 193 H 94 (65-110) mg/dL Random Glucose (75-110) mg/dL Calcium (8.6-10.4) mg/dl Phosphorus (2.5-4.5) mg/dL Magnesium (1.6-2.3) mg/dL Total Bilirubin (0.2-1.3) mg/dL AST (17-59) U/L ALT (21-72) U/L Alkaline Phosphatase (38-126) U/L Total Protein (6.3-8.3) g/dL Albumin (3.5-5.0) g/dL Globulin (2.2-3.9) gm/dL Albumin/Globulin Ratio (1.0-2.1) 03/20/18 Range/Units 06:52 WBC (4.8-10.8) K/uL RBC (4.40-5.90) Mil/uL Hgb (12.0-18.0) g/dL Hct (35.0-51.0) % MCV (80.0-94.0) fL MCH (27.0-31.0) pg MCHC (33.0-37.0) g/dL RDW (11.5-14.5) % Plt Count (130-400) K/uL MPV (7.2-11.7) fL Neut % (Auto) (50.0-75.0) % Lymph % (Auto) (20.0-40.0) % [place] % (Auto) (0.0-10.0) % Eos % (Auto) (0.0-4.0) % Baso % (Auto) (0.0-2.0) % Neut # (Auto) (1.8-7.0) K/uL Lymph # (Auto) (1.0-4.3) K/uL [place] # (Auto) (0.0-0.8) K/uL Eos # (Auto) (0.0-0.7) K/uL Baso # (Auto) (0.0-0.2) K/uL Neutrophils % (Manual) (50-75) % Band Neutrophils % (0-2) % Lymphocytes % (Manual) (20-40) % Monocytes % (Manual) (0-10) % Platelet Estimate (NORMAL) Hypochromasia (manual) Anisocytosis (manual) Macrocytosis (manual) Puncture Site pCO2 (35-45) mm/Hg pO2 (80-100) mm/Hg HCO3 (21-28) mmol/L ABG pH (7.35-7.45) ABG Total CO2 (22-28) mmol/L ABG O2 Saturation (95-98) % ABG Base Excess (-2.0-3.0) mmol/L ABG Hemoglobin (11.7-17.4) g/dL ABG Carboxyhemoglobin (0.5-1.5) % POC ABG HHb (Measured) (0.0-5.0) % ABG Methemoglobin (0.0-3.0) % Esvin Test A-a O2 Difference mm/Hg Respiratory Index Hgb O2 Saturation (95.0-98.0) % FiO2 % Sodium (132-148) mmol/L Potassium (3.6-5.2) mmol/L Chloride (98-107) mmol/L Carbon Dioxide (22-30) mmol/L Anion Gap (10-20) BUN (9-20) mg/dL Creatinine (0.8-1.5) mg/dL Est GFR ( Amer) Est GFR (Non-Af Amer) POC Glucose (mg/dL) 71 (65-110) mg/dL Random Glucose (75-110) mg/dL Calcium (8.6-10.4) mg/dl Phosphorus (2.5-4.5) mg/dL Magnesium (1.6-2.3) mg/dL Total Bilirubin (0.2-1.3) mg/dL AST (17-59) U/L ALT (21-72) U/L Alkaline Phosphatase (38-126) U/L Total Protein (6.3-8.3) g/dL Albumin (3.5-5.0) g/dL Globulin (2.2-3.9) gm/dL Albumin/Globulin Ratio (1.0-2.1) Laboratory Results - last 24 hr 03/20/18 03/20/18 03/21/18 06:52 11:44 06:15 WBC RBC Hgb Hct MCV MCH MCHC RDW Plt Count MPV Neut % (Auto) Lymph % (Auto) [place] % (Auto) Eos % (Auto) Baso % (Auto) Neut # (Auto) Lymph # (Auto) [place] # (Auto) Eos # (Auto) Baso # (Auto) Neutrophils % (Manual) Band Neutrophils % Lymphocytes % (Manual) Monocytes % (Manual) Platelet Estimate Hypochromasia (manual) Anisocytosis (manual) Macrocytosis (manual) Puncture Site pCO2 pO2 HCO3 ABG pH ABG Total CO2 ABG O2 Saturation ABG Base Excess ABG Hemoglobin ABG Carboxyhemoglobin POC ABG HHb (Measured) ABG Methemoglobin Esvin Test A-a O2 Difference Respiratory Index Hgb O2 Saturation FiO2 Sodium Potassium Chloride Carbon Dioxide Anion Gap BUN Creatinine Est GFR ( Amer) Est GFR (Non-Af Amer) POC Glucose (mg/dL) 71 94 193 H Random Glucose Calcium Phosphorus Magnesium Total Bilirubin AST ALT Alkaline Phosphatase Total Protein Albumin Globulin Albumin/Globulin Ratio 03/21/18 03/21/18 03/22/18 12:46 18:03 04:00 WBC 7.7 RBC 3.00 L Hgb 9.9 L Hct 30.7 L MCV 102.2 H MCH 32.8 H MCHC 32.1 L RDW 19.8 H Plt Count 79 L MPV 8.4 Neut % (Auto) 90.1 H Lymph % (Auto) 3.7 L [place] % (Auto) 6.0 Eos % (Auto) 0.0 Baso % (Auto) 0.2 Neut # (Auto) 6.9 Lymph # (Auto) 0.3 L [place] # (Auto) 0.5 Eos # (Auto) 0.0 Baso # (Auto) 0.0 Neutrophils % (Manual) 90 H Band Neutrophils % 2 Lymphocytes % (Manual) 3 L Monocytes % (Manual) 5 Platelet Estimate Decreased L Hypochromasia (manual) Slight Anisocytosis (manual) Moderate Macrocytosis (manual) Moderate Puncture Site Rba pCO2 41 pO2 64 L HCO3 29.8 H ABG pH 7.48 H ABG Total CO2 31.8 H ABG O2 Saturation 96.0 ABG Base Excess 6.4 H ABG Hemoglobin 10.8 L ABG Carboxyhemoglobin 2.8 H POC ABG HHb (Measured) 3.8 ABG Methemoglobin 1.4 Esvin Test Na A-a O2 Difference 34.0 Respiratory Index 0.5 Hgb O2 Saturation 92.0 L FiO2 21.0 Sodium Potassium Chloride Carbon Dioxide Anion Gap BUN Creatinine Est GFR ( Amer) Est GFR (Non-Af Amer) POC Glucose (mg/dL) 112 H Random Glucose Calcium Phosphorus Magnesium Total Bilirubin AST ALT Alkaline Phosphatase Total Protein Albumin Globulin Albumin/Globulin Ratio 03/22/18 06:01 WBC RBC Hgb Hct MCV MCH MCHC RDW Plt Count MPV Neut % (Auto) Lymph % (Auto) [place] % (Auto) Eos % (Auto) Baso % (Auto) Neut # (Auto) Lymph # (Auto) [place] # (Auto) Eos # (Auto) Baso # (Auto) Neutrophils % (Manual) Band Neutrophils % Lymphocytes % (Manual) Monocytes % (Manual) Platelet Estimate Hypochromasia (manual) Anisocytosis (manual) Macrocytosis (manual) Puncture Site pCO2 pO2 HCO3 ABG pH ABG Total CO2 ABG O2 Saturation ABG Base Excess ABG Hemoglobin ABG Carboxyhemoglobin POC ABG HHb (Measured) ABG Methemoglobin Esvin Test A-a O2 Difference Respiratory Index Hgb O2 Saturation FiO2 Sodium 146 Potassium 3.4 L Chloride 103 Carbon Dioxide 32 H Anion Gap 14 BUN 31 H Creatinine 3.4 H Est GFR ( Amer) 22 Est GFR (Non-Af Amer) 18 POC Glucose (mg/dL) Random Glucose 168 H Calcium 8.6 Phosphorus 2.4 L Magnesium 2.3 Total Bilirubin 1.0 AST 30 ALT 30 Alkaline Phosphatase 99 Total Protein 5.9 L Albumin 3.3 L Globulin 2.6 Albumin/Globulin Ratio 1.2 Fingerstick Blood Sugar Results: 179 Assessment/Plan - Assessment and Plan (Free Text) Assessment: 67 year old male with history of CAD s/p pacemaker, CVA, DM, ESRD on HD who presented for altered mental status. Patient was noted to be in respiratory distress. Patient was initially placed on BIPAP in the ED, however patient was intubated on arrival to the ICU. Patient was found to be hypotensive and had right IJ central line placed, however has not been on pressors since patient is no longer hypotensive. Patient was extubated 03/21, currently in no respiratory distress. Plan: Neuro: Awake, alert and oriented Continue to monitor neurological status 03/[address]: No evidence of acute intracranial hemorrhage transcortical infarction mass effect or midline shift. Mild atrophy and [id number] chronic microvascular white matter ischemic disease. No significant interval changes noted since the previous exam. 03/[address] Stable limited age related neuro degenerative findings without interval acute hemorrhage mass effect or cortical edema. MRI is available follow-up or CT if clinically warranted. Pulmonary: 03/19 Intubated, extubated 03/21 Not in respiratory distress Oxygenating well Venti mask Duonebs Q4 03/22 CXR Worsening congestive heart failure with presumable pulmonary edema in the right lung. Cardiovascular: Troponin <0.0120 Not currently hypotensive Right IJ TLC placed Not currently on pressors since BP went up after central line placement Continue to monitor ASA 81mg Renal: Hx of ESRD on HD on TTS Procrit 4000 units IV TTS Paracalcitol 2mg IV TTS Nephrology Dr. Ortiz consulted, help appreciated Continue to monitor electrolytes, K and PO4 repleted. GI: Protonix 40mg IV Pureed diet Endo: A1c: 4 Continue to monitor blood glucose levels ID: Afebrile White count 8.6 UA: 3+ leuk esterase, 3+ blood, 2+ protein moderate bacteria Tylenol 650mg PRN fever Aztreonam 1g IV Tigecycline 50mg IV ID Dr. Rodas consulted, help appreciated Blood cultures, urine culture, sputum cultures sent Heme: H/H 10.9/34.0 No evidence of bleeding PPX: Heparin 5000 units SC Q12 Case discussed with Dr. Frausto <Joey Frausto - Last Filed: 03/22/18 17:03> CCU Subjective - Physician Review Critical Care Time Spent (in minutes): 30 CCU Objective - Vital Signs / Intake & Output Vital Signs (Last 4 hours): Vital Signs Temp Pulse Resp BP Pulse Ox 03/22/18 16:00 98.8 F 99 H 16 100 03/22/18 15:42 107 H 15 149/31 L 100 03/22/18 15:00 108 H 22 100 03/22/18 14:42 108 H 18 157/33 H 100 03/22/18 14:00 107 H 14 100 03/22/18 13:42 107 H 18 170/38 H 99 Intake and Output (Last 8hrs): Intake & Output 03/22/18 03/22/18 03/22/18 06:59 14:59 22:59 Intake Total 128 412 10 Output Total 570 0 Balance 128 -158 10 Intake: IV 11 192 Intake, IV Amount 117 160 0 Right Distal Port 100 0 Internal Jugular Right Medial Port 117 60 0 Internal Jugular Oral 60 10 Output: Urine 20 0 Urine, Voided 20 0 Stool 550 0 Emesis 0 0 Other: # Bowel Movements 1 1 - Medications Active Medications: Active Medications Generic Name Dose Route Start Last Admin Trade Name Freq PRN Reason Stop Dose Admin Acetaminophen 650 mg 03/22/18 16:47 03/22/18 16:56 Tylenol 650mg/20.3ml Solution Ud PO 650 mg Q6 PRN Administration Headache Albuterol/Ipratropium 3 ml 03/21/18 14:00 03/22/18 13:14 Duoneb 3 Mg/0.5 Mg (3 Ml) Ud INH 3 ml RQ6 BELL Administration Aspirin 81 mg 03/20/18 10:00 03/22/18 10:31 Aspirin Chewable PO 81 mg DAILY BELL Administration Epoetin Mario 4,000 unit 03/19/18 18:00 03/21/18 12:08 Procrit IV 4,000 unit TTS BELL Administration Heparin Sodium (Porcine) 5,000 units 03/20/18 22:00 03/22/18 10:31 Heparin SC 5,000 units Q12 BELL Administration Aztreonam 1 gm/ Sodium 100 mls @ 100 mls/hr 03/19/18 18:30 03/21/18 19:11 Chloride IVPB 100 mls/hr Q24H BELL Administration Protocol Tigecycline 50 mg/ Sodium 100 mls @ 100 mls/hr 03/20/18 23:00 03/22/18 10:33 Chloride IVPB 100 mls/hr Q12H BELL Administration Protocol Pantoprazole Sodium 40 mg 03/20/18 10:00 03/22/18 10:31 Protonix Inj IVP 40 mg DAILY BELL Administration Paricalcitol 2 mcg 03/19/18 18:00 03/21/18 17:47 Zemplar IV Not Given TTS BELL - Patient Studies Lab Studies: Microbiology Studies 03/21/18 00:57 Gram Stain - Final Sputum Induced Sputum Culture - Preliminary NORMAL ORAL DAVID 03/19/18 14:30 S.aureus & Coag-Neg Staph PNA FISH - Final Blood Blood Culture - Final Coagulase Neg Staphylococcus Gram Stain - Final 03/21/18 00:57 Urine Culture - Final Urine,Catheterized No Growth (<1,000 CFU/ML) 03/19/18 14:00 Blood Culture - Preliminary Blood NO GROWTH AFTER 48 HOURS Lab Studies 03/22/18 03/22/18 03/22/18 Range/Units 11:32 06:01 05:10 WBC (4.8-10.8) K/uL RBC (4.40-5.90) Mil/uL Hgb (12.0-18.0) g/dL Hct (35.0-51.0) % MCV (80.0-94.0) fL MCH (27.0-31.0) pg MCHC (33.0-37.0) g/dL RDW (11.5-14.5) % Plt Count (130-400) K/uL MPV (7.2-11.7) fL Neut % (Auto) (50.0-75.0) % Lymph % (Auto) (20.0-40.0) % [place] % (Auto) (0.0-10.0) % Eos % (Auto) (0.0-4.0) % Baso % (Auto) (0.0-2.0) % Neut # (Auto) (1.8-7.0) K/uL Lymph # (Auto) (1.0-4.3) K/uL [place] # (Auto) (0.0-0.8) K/uL Eos # (Auto) (0.0-0.7) K/uL Baso # (Auto) (0.0-0.2) K/uL Neutrophils % (Manual) (50-75) % Band Neutrophils % (0-2) % Lymphocytes % (Manual) (20-40) % Monocytes % (Manual) (0-10) % Platelet Estimate (NORMAL) Hypochromasia (manual) Anisocytosis (manual) Macrocytosis (manual) Puncture Site pCO2 (35-45) mm/Hg pO2 (80-100) mm/Hg HCO3 (21-28) mmol/L ABG pH (7.35-7.45) ABG Total CO2 (22-28) mmol/L ABG O2 Saturation (95-98) % ABG Base Excess (-2.0-3.0) mmol/L ABG Hemoglobin (11.7-17.4) g/dL ABG Carboxyhemoglobin (0.5-1.5) % POC ABG HHb (Measured) (0.0-5.0) % ABG Methemoglobin (0.0-3.0) % Esvin Test A-a O2 Difference mm/Hg Respiratory Index Hgb O2 Saturation (95.0-98.0) % FiO2 % Sodium 146 (132-148) mmol/L Potassium 3.4 L (3.6-5.2) mmol/L Chloride 103 (98-107) mmol/L Carbon Dioxide 32 H (22-30) mmol/L Anion Gap 14 (10-20) BUN 31 H (9-20) mg/dL Creatinine 3.4 H (0.8-1.5) mg/dL Est GFR ( Amer) 22 Est GFR (Non-Af Amer) 18 POC Glucose (mg/dL) 134 H 179 H (65-110) mg/dL Random Glucose 168 H (75-110) mg/dL Calcium 8.6 (8.6-10.4) mg/dl Phosphorus 2.4 L (2.5-4.5) mg/dL Magnesium 2.3 (1.6-2.3) mg/dL Total Bilirubin 1.0 (0.2-1.3) mg/dL AST 30 (17-59) U/L ALT 30 (21-72) U/L Alkaline Phosphatase 99 (38-126) U/L Total Protein 5.9 L (6.3-8.3) g/dL Albumin 3.3 L (3.5-5.0) g/dL Globulin 2.6 (2.2-3.9) gm/dL Albumin/Globulin Ratio 1.2 (1.0-2.1) 03/22/18 03/21/18 03/21/18 Range/Units 04:00 23:57 18:03 WBC 7.7 (4.8-10.8) K/uL RBC 3.00 L (4.40-5.90) Mil/uL Hgb 9.9 L (12.0-18.0) g/dL Hct 30.7 L (35.0-51.0) % MCV 102.2 H (80.0-94.0) fL MCH 32.8 H (27.0-31.0) pg MCHC 32.1 L (33.0-37.0) g/dL RDW 19.8 H (11.5-14.5) % Plt Count 79 L (130-400) K/uL MPV 8.4 (7.2-11.7) fL Neut % (Auto) 90.1 H (50.0-75.0) % Lymph % (Auto) 3.7 L (20.0-40.0) % [place] % (Auto) 6.0 (0.0-10.0) % Eos % (Auto) 0.0 (0.0-4.0) % Baso % (Auto) 0.2 (0.0-2.0) % Neut # (Auto) 6.9 (1.8-7.0) K/uL Lymph # (Auto) 0.3 L (1.0-4.3) K/uL [place] # (Auto) 0.5 (0.0-0.8) K/uL Eos # (Auto) 0.0 (0.0-0.7) K/uL Baso # (Auto) 0.0 (0.0-0.2) K/uL Neutrophils % (Manual) 90 H (50-75) % Band Neutrophils % 2 (0-2) % Lymphocytes % (Manual) 3 L (20-40) % Monocytes % (Manual) 5 (0-10) % Platelet Estimate Decreased L (NORMAL) Hypochromasia (manual) Slight Anisocytosis (manual) Moderate Macrocytosis (manual) Moderate Puncture Site Rba pCO2 41 (35-45) mm/Hg pO2 64 L (80-100) mm/Hg HCO3 29.8 H (21-28) mmol/L ABG pH 7.48 H (7.35-7.45) ABG Total CO2 31.8 H (22-28) mmol/L ABG O2 Saturation 96.0 (95-98) % ABG Base Excess 6.4 H (-2.0-3.0) mmol/L ABG Hemoglobin 10.8 L (11.7-17.4) g/dL ABG Carboxyhemoglobin 2.8 H (0.5-1.5) % POC ABG HHb (Measured) 3.8 (0.0-5.0) % ABG Methemoglobin 1.4 (0.0-3.0) % Esvin Test Na A-a O2 Difference 34.0 mm/Hg Respiratory Index 0.5 Hgb O2 Saturation 92.0 L (95.0-98.0) % FiO2 21.0 % Sodium (132-148) mmol/L Potassium (3.6-5.2) mmol/L Chloride (98-107) mmol/L Carbon Dioxide (22-30) mmol/L Anion Gap (10-20) BUN (9-20) mg/dL Creatinine (0.8-1.5) mg/dL Est GFR ( Amer) Est GFR (Non-Af Amer) POC Glucose (mg/dL) 224 H (65-110) mg/dL Random Glucose (75-110) mg/dL Calcium (8.6-10.4) mg/dl Phosphorus (2.5-4.5) mg/dL Magnesium (1.6-2.3) mg/dL Total Bilirubin (0.2-1.3) mg/dL AST (17-59) U/L ALT (21-72) U/L Alkaline Phosphatase (38-126) U/L Total Protein (6.3-8.3) g/dL Albumin (3.5-5.0) g/dL Globulin (2.2-3.9) gm/dL Albumin/Globulin Ratio (1.0-2.1) 03/21/18 Range/Units 17:46 WBC (4.8-10.8) K/uL RBC (4.40-5.90) Mil/uL Hgb (12.0-18.0) g/dL Hct (35.0-51.0) % MCV (80.0-94.0) fL MCH (27.0-31.0) pg MCHC (33.0-37.0) g/dL RDW (11.5-14.5) % Plt Count (130-400) K/uL MPV (7.2-11.7) fL Neut % (Auto) (50.0-75.0) % Lymph % (Auto) (20.0-40.0) % [place] % (Auto) (0.0-10.0) % Eos % (Auto) (0.0-4.0) % Baso % (Auto) (0.0-2.0) % Neut # (Auto) (1.8-7.0) K/uL Lymph # (Auto) (1.0-4.3) K/uL [place] # (Auto) (0.0-0.8) K/uL Eos # (Auto) (0.0-0.7) K/uL Baso # (Auto) (0.0-0.2) K/uL Neutrophils % (Manual) (50-75) % Band Neutrophils % (0-2) % Lymphocytes % (Manual) (20-40) % Monocytes % (Manual) (0-10) % Platelet Estimate (NORMAL) Hypochromasia (manual) Anisocytosis (manual) Macrocytosis (manual) Puncture Site pCO2 (35-45) mm/Hg pO2 (80-100) mm/Hg HCO3 (21-28) mmol/L ABG pH (7.35-7.45) ABG Total CO2 (22-28) mmol/L ABG O2 Saturation (95-98) % ABG Base Excess (-2.0-3.0) mmol/L ABG Hemoglobin (11.7-17.4) g/dL ABG Carboxyhemoglobin (0.5-1.5) % POC ABG HHb (Measured) (0.0-5.0) % ABG Methemoglobin (0.0-3.0) % Esvin Test A-a O2 Difference mm/Hg Respiratory Index Hgb O2 Saturation (95.0-98.0) % FiO2 % Sodium (132-148) mmol/L Potassium (3.6-5.2) mmol/L Chloride (98-107) mmol/L Carbon Dioxide (22-30) mmol/L Anion Gap (10-20) BUN (9-20) mg/dL Creatinine (0.8-1.5) mg/dL Est GFR ( Amer) Est GFR (Non-Af Amer) POC Glucose (mg/dL) 169 H (65-110) mg/dL Random Glucose (75-110) mg/dL Calcium (8.6-10.4) mg/dl Phosphorus (2.5-4.5) mg/dL Magnesium (1.6-2.3) mg/dL Total Bilirubin (0.2-1.3) mg/dL AST (17-59) U/L ALT (21-72) U/L Alkaline Phosphatase (38-126) U/L Total Protein (6.3-8.3) g/dL Albumin (3.5-5.0) g/dL Globulin (2.2-3.9) gm/dL Albumin/Globulin Ratio (1.0-2.1) Laboratory Results - last 24 hr 03/21/18 03/21/18 03/21/18 17:46 18:03 23:57 WBC RBC Hgb Hct MCV MCH MCHC RDW Plt Count MPV Neut % (Auto) Lymph % (Auto) [place] % (Auto) Eos % (Auto) Baso % (Auto) Neut # (Auto) Lymph # (Auto) [place] # (Auto) Eos # (Auto) Baso # (Auto) Neutrophils % (Manual) Band Neutrophils % Lymphocytes % (Manual) Monocytes % (Manual) Platelet Estimate Hypochromasia (manual) Anisocytosis (manual) Macrocytosis (manual) Puncture Site Rba pCO2 41 pO2 64 L HCO3 29.8 H ABG pH 7.48 H ABG Total CO2 31.8 H ABG O2 Saturation 96.0 ABG Base Excess 6.4 H ABG Hemoglobin 10.8 L ABG Carboxyhemoglobin 2.8 H POC ABG HHb (Measured) 3.8 ABG Methemoglobin 1.4 Esvin Test Na A-a O2 Difference 34.0 Respiratory Index 0.5 Hgb O2 Saturation 92.0 L FiO2 21.0 Sodium Potassium Chloride Carbon Dioxide Anion Gap BUN Creatinine Est GFR ( Amer) Est GFR (Non-Af Amer) POC Glucose (mg/dL) 169 H 224 H Random Glucose Calcium Phosphorus Magnesium Total Bilirubin AST ALT Alkaline Phosphatase Total Protein Albumin Globulin Albumin/Globulin Ratio 03/22/18 03/22/18 03/22/18 04:00 05:10 06:01 WBC 7.7 RBC 3.00 L Hgb 9.9 L Hct 30.7 L MCV 102.2 H MCH 32.8 H MCHC 32.1 L RDW 19.8 H Plt Count 79 L MPV 8.4 Neut % (Auto) 90.1 H Lymph % (Auto) 3.7 L [place] % (Auto) 6.0 Eos % (Auto) 0.0 Baso % (Auto) 0.2 Neut # (Auto) 6.9 Lymph # (Auto) 0.3 L [place] # (Auto) 0.5 Eos # (Auto) 0.0 Baso # (Auto) 0.0 Neutrophils % (Manual) 90 H Band Neutrophils % 2 Lymphocytes % (Manual) 3 L Monocytes % (Manual) 5 Platelet Estimate Decreased L Hypochromasia (manual) Slight Anisocytosis (manual) Moderate Macrocytosis (manual) Moderate Puncture Site pCO2 pO2 HCO3 ABG pH ABG Total CO2 ABG O2 Saturation ABG Base Excess ABG Hemoglobin ABG Carboxyhemoglobin POC ABG HHb (Measured) ABG Methemoglobin Esvin Test A-a O2 Difference Respiratory Index Hgb O2 Saturation FiO2 Sodium 146 Potassium 3.4 L Chloride 103 Carbon Dioxide 32 H Anion Gap 14 BUN 31 H Creatinine 3.4 H Est GFR ( Amer) 22 Est GFR (Non-Af Amer) 18 POC Glucose (mg/dL) 179 H Random Glucose 168 H Calcium 8.6 Phosphorus 2.4 L Magnesium 2.3 Total Bilirubin 1.0 AST 30 ALT 30 Alkaline Phosphatase 99 Total Protein 5.9 L Albumin 3.3 L Globulin 2.6 Albumin/Globulin Ratio 1.2 03/22/18 11:32 WBC RBC Hgb Hct MCV MCH MCHC RDW Plt Count MPV Neut % (Auto) Lymph % (Auto) [place] % (Auto) Eos % (Auto) Baso % (Auto) Neut # (Auto) Lymph # (Auto) [place] # (Auto) Eos # (Auto) Baso # (Auto) Neutrophils % (Manual) Band Neutrophils % Lymphocytes % (Manual) Monocytes % (Manual) Platelet Estimate Hypochromasia (manual) Anisocytosis (manual) Macrocytosis (manual) Puncture Site pCO2 pO2 HCO3 ABG pH ABG Total CO2 ABG O2 Saturation ABG Base Excess ABG Hemoglobin ABG Carboxyhemoglobin POC ABG HHb (Measured) ABG Methemoglobin Esvin Test A-a O2 Difference Respiratory Index Hgb O2 Saturation FiO2 Sodium Potassium Chloride Carbon Dioxide Anion Gap BUN Creatinine Est GFR ( Amer) Est GFR (Non-Af Amer) POC Glucose (mg/dL) 134 H Random Glucose Calcium Phosphorus Magnesium Total Bilirubin AST ALT Alkaline Phosphatase Total Protein Albumin Globulin Albumin/Globulin Ratio Critical Care Progress Note - Nutrition Nutrition: Nutrition Category Date Time Status Dysphagia/Modified Consistency Diet [DIET] Diets 03/22/18 Breakfast Active Assessment/Plan (1) Hypercapnic respiratory failure Current Visit: Yes Status: Acute Comment: right lung collapse Mucomyst, nebulizer treatment and chest PT. If no change will consider bronchoscopy Continue BiPAP as needed Hemodialysis GI prophylaxis (2) CHF (congestive heart failure), NYHA class III Current Visit: Yes Status: Acute (3) ESRD (end stage renal disease) on dialysis Current Visit: Yes Status: Chronic Attending/Attestation - Attestation I have personally seen and examined this patient.: Yes I have fully participated in the care of the patient.: Yes I have reviewed all pertinent clinical information: Yes Notes (Text): 03/22/18 17:02 patient seen and examined Patient extubated yesterday and in no respiratory distress Patient is awake and responsive Afebrile Continue hemodialysis Continue antibiotics BiPAP at night Nebulizer treatment
[2018-03-22] MEDS: Nitroglycerin 50mg in D5W 50 MG/250 ML BOTTLE IV SCH (16:53)
[2018-03-22] MEDS: Acetaminophen 650mg/20.3ml solution UD PO PRN (16:56)
[2018-03-22] MEDS: Aztreonam 1 GM in Sodium Chloride 0.9% 100 ML IVPB SCH (18:27)
--- NOTE | 2018-03-22 22:42 | CP.PCM.PN ---
Subjective - Date & Time of Evaluation Date of Evaluation: 03/22/18 Time of Evaluation: 14:00 - Subjective Subjective: dictated Objective - Vital Signs/Intake and Output Vital Signs (last 24 hours): Temp Pulse Resp BP Pulse Ox 99 F 107 H 16 158/54 H 100 03/22/18 20:00 03/22/18 22:00 03/22/18 22:00 03/22/18 21:42 03/22/18 22:00 Intake and Output: 03/22/18 03/23/18 18:59 06:59 Intake Total 457 0 Output Total 930 Balance -473 0 - Medications Medications: Current Medications Acetaminophen (Tylenol 650mg/20.3ml Solution Ud) 650 mg PO Q6 PRN PRN Reason: Headache Last Admin: 03/22/18 16:56 Dose: 650 mg Albuterol/Ipratropium (Duoneb 3 Mg/0.5 Mg (3 Ml) Ud) 3 ml INH RQ6 BELL Last Admin: 03/22/18 19:22 Dose: 3 ml Aspirin (Aspirin Chewable) 81 mg PO DAILY BELL Last Admin: 03/22/18 10:31 Dose: 81 mg Epoetin Mario (Procrit) 4,000 unit IV TTS BELL Last Admin: 03/21/18 12:08 Dose: 4,000 unit Aztreonam 1 gm/ Sodium (Chloride) 100 mls @ 100 mls/hr IVPB Q24H BELL PRN Reason: Protocol Last Admin: 03/22/18 18:27 Dose: 100 mls/hr Tigecycline 50 mg/ Sodium (Chloride) 100 mls @ 100 mls/hr IVPB Q12H BELL PRN Reason: Protocol Last Admin: 03/22/18 10:33 Dose: 100 mls/hr Pantoprazole Sodium (Protonix Inj) 40 mg IVP DAILY BELL Last Admin: 03/22/18 10:31 Dose: 40 mg Paricalcitol (Zemplar) 2 mcg IV TTS BELL Last Admin: 03/21/18 17:47 Dose: Not Given - Labs Labs: 03/22/18 04:00 03/22/18 06:01 PT 10.7 SECONDS (9.7-12.2) 03/19/18 14:18 INR 1.0 03/19/18 14:18 APTT 39 SECONDS (21-34) H 03/19/18 14:18
[2018-03-23] MEDS: Albuterol-Ipratrop 3 mg / 0.5 (3 ml) UD INH SCH ×4 (00:59→19:33)
[2018-03-23 06:52] LABS: BASO % 0.8 % (0.0-2.0); EOS # 0.2 K/uL (0.0-0.7); EOS % 2.5 % (0.0-4.0); HEMOGLOBIN 9.9 g/dL (12.0-18.0); LYMPH # 0.6 K/uL (1.0-4.3); MEAN CELL VOLUME 103.5 fL (80.0-94.0); MEAN CORPUSCULAR HEMOGLOBIN 32.6 pg (27.0-31.0); MEAN CORPUSCULAR HGB CONC 31.5 g/dL (33.0-37.0); MEAN PLATELET VOLUME 8.2 fL (7.2-11.7); MONO # 0.5 K/uL (0.0-0.8); MONO % 7.7 % (0.0-10.0); NRBC % 0.2 % (0.0-2.0); RBC 3.02 Mil/uL (4.40-5.90); RED CELL DISTRIBUTION WIDTH 19.5 % (11.5-14.5); WHITE BLOOD COUNT 6.3 K/uL (4.8-10.8)
[2018-03-23 07:01] LABS: ALB/GLOB RATIO 1.3 (1.0-2.1); ALBUMIN 3.3 g/dL (3.5-5.0); CALCIUM 8.8 mg/dl (8.6-10.4)
--- NOTE | 2018-03-23 07:24 | PN ---
Copied To: Sergo Holbrook MD Attending MD: Sergo Holbrook MD DATE: 03/22/2018 SUBJECTIVE: The patient was extubated. He was awake and alert, but he was not verbalizing. It seems like he was awake. He does have some deformity in left upper extremity, which was obvious and he had no fever, chills. PHYSICAL EXAMINATION: VITAL SIGNS: His T-max this morning was 98, 99 now and pulse is 81, heart rate is 107 and blood pressure 158/54, respirations are 17 now. HEENT: Head is atraumatic. NECK: Supple. LUNGS: Decreased breath sounds bilaterally. No crackles or rales present. HEART: S1, S2 are regular. He has a triple-lumen right IJ. Monitor had paced rhythm. ABDOMEN: Soft, nontender. No guarding noted. EXTREMITIES: He has the left AV fistula in the left upper extremity Extremities remain with foot protectors. NEUROLOGIC: It seems he was alert, awake. LABORATORY DATA: Labs are noted. Labs show white count is 7.7, hemoglobin 9.9 and hematocrit is 30.7, platelet count is 79 is low, platelet count has been decreasing from 108 to 79. He is a dialysis patient, white count was never elevated, neutrophils are 90, bands are 2 not much different than before. Chemistry shows sodium 146, potassium 3.1, chloride 103, CO2 is 32, anion gap is 14, BUN is 31, creatinine is 3.1 random is 168. His septic workup had only one blood culture on 03/19/2018 coagulase-negative staph, which was methicillin-sensitive probably a skin contaminant. Blood cultures were negative. This is prior to even any triple-lumen insertion I am told and has MRSA negative. Urine culture, blood cultures are all negative. His chest x-ray was done. Chest x-ray on 03/22/2018 shows worsening congestion and heart failure with presumably pulmonary edema in the right lung. ASSESSMENT AND PLAN: So, it seems that he went into acute respiratory failure with pulmonary edema and he is a dialysis patient and Staphylococcus epidermidis was contaminant, repeat culture is negative and at this time he is on Tygacil and Azactam. We will continue both for now as cannot rule out pneumonia and we will follow. Sergo Holbrook MD [facility] # [id number]
--- NOTE | 2018-03-23 10:37 | PN ---
Copied To: Carlos Andrews DO Attending MD: Carlos Andrews DO DATE: 03/23/2018 SUBJECTIVE: He is in intensive care unit at [facility]. He is more alert, off the ventilator, talking to got questions about everything. He is back to his baseline, very alert and sharp. He is on aspirin, aztreonam, DuoNeb, Procrit, Protonix, Tygacil, Tylenol, and Zemplar. He is in no pain. He is thirsty. He is hungry. He is back to his old self. PHYSICAL EXAMINATION: VITAL SIGNS: 98.7 temp, 109 pulse, 164/40 blood pressure, 16 respiratory rate, 99% O2 sat on 2 liters. HEENT: Head is atraumatic, normocephalic. GENERAL: He is looking at me. He is very sharp, alert, talking well. He had a swallow eval honey, liquids. HEART: Regular rate. LUNGS: Decreased breath sounds, but clear. He is on the ventilator, much better. ABDOMEN: Soft, obese, nontender. EXTREMITIES: Trace edema. MEDICATIONS: He is currently on aspirin, aztreonam, DuoNeb, Procrit, Protonix, Tygacil, Tylenol, Zemplar. LABORATORY DATA: He has a 6.3 white count, 9.9 hemoglobin, 31.3 hematocrit with 74 platelets. Sodium 146, potassium 3.8, BUN 46, creatinine 4.3. He is on dialysis. GFR is 14. Sugar is 119. Calcium is 8.8, magnesium 2.5. Total bili is 0.7, AST is 32, ALT is 48, alkaline phosphatase 106, total protein is 5.8. ASSESSMENT: He did have a very bad urosepsis. He had acute respiratory failure. He had change in mentation secondary to above. We are going to check his labs, continue with treatment and care, order some physical therapy. He has positive blood cultures with Staphylococcus aureus and coagulase negative staphylococcus in his blood. He is being seen by the leather sorter, Renal. We will continue with aggressive treatment and care of Mr. Conor Gonzales. He is improving. Carlos Andrews DO MTDRenata
--- NOTE | 2018-03-23 11:32 | CP.PCM.PN ---
Subjective - Date & Time of Evaluation Date of Evaluation: 03/23/18 Time of Evaluation: 11:31 - Subjective Subjective: pt is seen and examined, follow up consult is dictated #[id number] seen in hd, uf 2.7 lit Objective - Vital Signs/Intake and Output Vital Signs (last 24 hours): Temp Pulse Resp BP Pulse Ox 98.7 F 82 15 170/34 H 100 03/23/18 10:20 03/23/18 10:20 03/23/18 10:20 03/23/18 11:00 03/23/18 10:20 Intake and Output: 03/23/18 03/23/18 06:59 18:59 Intake Total 320 300 Balance 320 300 - Medications Medications: Current Medications Acetaminophen (Tylenol 650mg/20.3ml Solution Ud) 650 mg PO Q6 PRN PRN Reason: Headache Last Admin: 03/22/18 16:56 Dose: 650 mg Albuterol/Ipratropium (Duoneb 3 Mg/0.5 Mg (3 Ml) Ud) 3 ml INH RQ6 BELL Last Admin: 03/23/18 07:45 Dose: 3 ml Aspirin (Aspirin Chewable) 81 mg PO DAILY BELL Last Admin: 03/22/18 10:31 Dose: 81 mg Epoetin Mario (Procrit) 4,000 unit IV TTS BELL Last Admin: 03/21/18 12:08 Dose: 4,000 unit Aztreonam 1 gm/ Sodium (Chloride) 100 mls @ 100 mls/hr IVPB Q24H BELL PRN Reason: Protocol Last Admin: 03/22/18 18:27 Dose: 100 mls/hr Tigecycline 50 mg/ Sodium (Chloride) 100 mls @ 100 mls/hr IVPB Q12H BELL PRN Reason: Protocol Last Admin: 03/22/18 22:53 Dose: 100 mls/hr Pantoprazole Sodium (Protonix Inj) 40 mg IVP DAILY BELL Last Admin: 03/22/18 10:31 Dose: 40 mg Paricalcitol (Zemplar) 2 mcg IV TTS BELL Last Admin: 03/21/18 17:47 Dose: Not Given - Labs Labs: 03/23/18 06:45 03/23/18 06:45 PT 10.7 SECONDS (9.7-12.2) 03/19/18 14:18 INR 1.0 03/19/18 14:18 APTT 39 SECONDS (21-34) H 03/19/18 14:18
[2018-03-23] MEDS: Acetaminophen 650mg/20.3ml solution UD PO PRN (11:40)
[2018-03-23] MEDS: EPOETIN ALFA 4,000 UNIT/ML ML Dialysis IV SCH (11:41)
--- NOTE | 2018-03-23 12:38 | PN ---
Copied To: Carlos Andrews DO Attending MD: Carlos Andrews DO DATE: 03/22/2018 SUBJECTIVE: I saw him in the intensive care unit. His is present. He is alert. He is off the ventilator. He is on oxygen. He is talking to me. He asked me for food. He is hungry. He looks stronger, feels stronger. He is on aspirin, Azactam, Bumex, DuoNeb, heparin, nitroglycerin, Precedex, Procrit, Protonix, Solu-Medrol, Tygacil, Tylenol, and Zemplar. PHYSICAL EXAMINATION: VITAL SIGNS: He has a temperature of 99, but was 101 this morning, 80 pulse, 148/54 blood pressure much better, 17 respiratory rate, 100% O2 sat. HEENT: His head is atraumatic, normocephalic. GENERAL: He is alert and talking. He is very hungry swallow, I think he can. HEART: Regular rate. LUNGS: Decreased breath sounds, but clear to auscultation. ABDOMEN: Soft, obese, nontender. EXTREMITIES: No edema and they are in SCDs. LABORATORY DATA: He has a 7.7 white count, 9.9 hemoglobin, 30.7 hematocrit with 79 platelets. Sodium 146, potassium 3.4, BUN 34, creatinine 3.4, on dialysis, sugar is 168, calcium is 8.6, phosphorus is 2.4, magnesium 2.3, bili 1, AST is 30, ALT is 30, alkaline phosphatase 99, albumin is 3.3, total protein is 5.9. Urine is going from moderate bacteria to few bacteria, so the antibiotics are helping the urine infection. He has been seen by Renal, Pulmonary. He had a chest x-ray yesterday and it showed [id number] venous congestion, air space opacification, [id number] right lung zone from left lung base, small left pleural effusion, status post median sternotomy, cardiomegaly, right-sided pacemaker. ASSESSMENT AND PLAN: We will replace potassium, check his labs tomorrow. Hopefully, he can pass the swallow evaluation and will be able to eat today, which is going to be good for him as per respiratory care assistant. He is septic with acute respiratory failure. Carlos Andrews DO [facility]
--- NOTE | 2018-03-23 13:38 | CP.PCM.PN ---
Subjective - Date & Time of Evaluation Date of Evaluation: 03/23/18 Time of Evaluation: 13:00 - Subjective Subjective: Patient seen and examined Status post hemodialysis And removed 2.5 L Patient is awake Afebrile Objective - Vital Signs/Intake and Output Vital Signs (last 24 hours): Temp Pulse Resp BP Pulse Ox 98.7 F 82 15 133/81 100 03/23/18 10:20 03/23/18 10:20 03/23/18 10:20 03/23/18 13:15 03/23/18 10:20 Intake and Output: 03/23/18 03/23/18 06:59 18:59 Intake Total 320 300 Balance 320 300 - Medications Medications: Current Medications Acetaminophen (Tylenol 650mg/20.3ml Solution Ud) 650 mg PO Q6 PRN PRN Reason: Headache Last Admin: 03/22/18 16:56 Dose: 650 mg Albuterol/Ipratropium (Duoneb 3 Mg/0.5 Mg (3 Ml) Ud) 3 ml INH RQ6 BELL Last Admin: 03/23/18 07:45 Dose: 3 ml Aspirin (Aspirin Chewable) 81 mg PO DAILY BELL Last Admin: 03/22/18 10:31 Dose: 81 mg Epoetin Mario (Procrit) 4,000 unit IV TTS BELL Last Admin: 03/23/18 11:41 Dose: 4,000 unit Aztreonam 1 gm/ Sodium (Chloride) 100 mls @ 100 mls/hr IVPB Q24H BELL PRN Reason: Protocol Last Admin: 03/22/18 18:27 Dose: 100 mls/hr Tigecycline 50 mg/ Sodium (Chloride) 100 mls @ 100 mls/hr IVPB Q12H BELL PRN Reason: Protocol Last Admin: 03/22/18 22:53 Dose: 100 mls/hr Pantoprazole Sodium (Protonix Inj) 40 mg IVP DAILY BELL Last Admin: 03/22/18 10:31 Dose: 40 mg Paricalcitol (Zemplar) 2 mcg IV TTS BELL Last Admin: 03/21/18 17:47 Dose: Not Given - Labs Labs: 03/23/18 06:45 03/23/18 06:45 PT 10.7 SECONDS (9.7-12.2) 03/19/18 14:18 INR 1.0 03/19/18 14:18 APTT 39 SECONDS (21-34) H 03/19/18 14:18 - Head Exam Head Exam: ATRAUMATIC, NORMOCEPHALIC - ENT Exam ENT Exam: Mucous Membranes Moist - Neck Exam Neck Exam: Normal Inspection - Respiratory Exam Respiratory Exam: Clear to Ausculation Bilateral - Cardiovascular Exam Cardiovascular Exam: REGULAR RHYTHM - GI/Abdominal Exam GI & Abdominal Exam: Soft, Normal Bowel Sounds Assessment and Plan (1) Hypercapnic respiratory failure Assessment & Plan: Continue BiPAP at night or as needed Nebulizer treatment and IV steroids Followup chest x-ray For transfer to floor Status: Acute (2) CHF (congestive heart failure), NYHA class III Status: Acute (3) ESRD (end stage renal disease) on dialysis Status: Chronic
[2018-03-23] MEDS: Paricalcitol 2 mcg/ml Inj IV SCH (13:56)
--- NOTE | 2018-03-23 17:51 | CP.CCUPN ---
<Lester Man - Last Filed: 03/23/18 18:14> CCU Subjective - Physician Review Subjective (Free Text): 03/23/18 18:14 Patient seen and examined at bedside. No acute complaints, but reports still not feeling well. Able to speak in full sentences but requires some time between each sentence when finished. Denies current chest pain, shortness of breath, nausea, emesis. CCU Objective - Vital Signs / Intake & Output Intake and Output (Last 8hrs): Intake & Output 03/23/18 03/23/18 03/23/18 06:59 14:59 22:59 Intake Total 320 300 Balance 320 300 Intake: Intake, IV Amount 100 Right Distal Port 100 Internal Jugular Oral 220 300 Other: # Voids Urine, Voided 0 0 # Bowel Movements 0 1 - Physical Exam Head: Positive for: Atraumatic, Normocephalic Pupils: Negative for: Non-Reactive, Pinpoint Extroacular Muscles: Positive for: EOMI Conjunctiva: Positive for: Normal. Negative for: Injected, Icteric Mouth: Positive for: Moist Mucous Membranes, Normal Tounge. Negative for: Dry, Drooling Nose (External): Positive for: Atraumatic. Negative for: Abrasion, Contusion, Laceration Nose (Internal): Positive for: No Active Bleeding. Negative for: Epistaxis Neck: Positive for: Trachea Midline, Other (Right IJ TLC). Negative for: JVD Respiratory/Chest: Positive for: Decreased Breath Sounds, Other (pacemaker palpable in right anterior chest). Negative for: Respiratory Distress, Wheezes , Rales, Retracting, Rhonchi Cardiovascular: Positive for: Normal S1, S2, Peripheal Pulses Present (+1 radials and dorsalis pedis bilaterally), Other (Paced at 90s). Negative for: Irregular Rhythm, Tachycardic, Bradycardic Abdomen: Positive for: Normal Bowel Sounds. Negative for: Tenderness, Distention Upper Extremity: Positive for: Normal Inspection, Normal ROM, NORMAL PULSES, Other (AV fistula left upper extremity, bruit auscultated. Radial pulses +1 bilaterally. ). Negative for: Cyanosis, Edema, Tenderness, Swelling, Erythema Lower Extremity: Positive for: Normal Inspection, NORMAL PULSES (+1 Dorsalis pedis pulses present bilaterally). Negative for: Edema, CALF TENDERNESS, Cyanosis, Tenderness, Swelling, Erythema, Deformity Neurological: Positive for: GCS=15, Speech Normal Skin: Positive for: Warm, Dry Lymphatic: Negative for: Cervical Adenopathy Psychiatric: Positive for: Other (Awake, alert and oriented, not overtly anxious or agitated) - Medications Active Medications: Active Medications Generic Name Dose Route Start Last Admin Trade Name Freq PRN Reason Stop Dose Admin Acetaminophen 650 mg 03/22/18 16:47 03/23/18 11:40 Tylenol 650mg/20.3ml Solution Ud PO 650 mg Q6 PRN Administration Headache Albuterol/Ipratropium 3 ml 03/21/18 14:00 03/23/18 13:47 Duoneb 3 Mg/0.5 Mg (3 Ml) Ud INH 3 ml RQ6 BELL Administration Aspirin 81 mg 03/20/18 10:00 03/23/18 14:11 Aspirin Chewable PO 81 mg DAILY BELL Administration Epoetin Mario 4,000 unit 03/19/18 18:00 03/23/18 11:41 Procrit IV 4,000 unit TTS BELL Administration Aztreonam 1 gm/ Sodium 100 mls @ 100 mls/hr 03/19/18 18:30 03/22/18 18:27 Chloride IVPB 100 mls/hr Q24H BELL Administration Protocol Tigecycline 50 mg/ Sodium 100 mls @ 100 mls/hr 03/20/18 23:00 03/23/18 14:12 Chloride IVPB 100 mls/hr Q12H BELL Administration Protocol Pantoprazole Sodium 40 mg 03/20/18 10:00 03/23/18 14:11 Protonix Inj IVP 40 mg DAILY BELL Administration Paricalcitol 2 mcg 03/19/18 18:00 03/23/18 13:56 Zemplar IV 2 mcg TTS BELL Administration - Patient Studies Lab Studies: Microbiology Studies 03/21/18 16:00 Blood Culture - Preliminary Blood-Venous NO GROWTH AFTER 48 HOURS 03/21/18 16:00 Blood Culture - Preliminary Blood-Venous NO GROWTH AFTER 48 HOURS 03/21/18 00:57 Gram Stain - Final Sputum Induced Sputum Culture - Final NORMAL ORAL DAVID 03/19/18 14:00 Blood Culture - Preliminary Blood NO GROWTH AFTER 3 DAYS Lab Studies 03/23/18 03/23/18 03/23/18 Range/Units 16:30 11:04 07:26 WBC (4.8-10.8) K/uL RBC (4.40-5.90) Mil/uL Hgb (12.0-18.0) g/dL Hct (35.0-51.0) % MCV (80.0-94.0) fL MCH (27.0-31.0) pg MCHC (33.0-37.0) g/dL RDW (11.5-14.5) % Plt Count (130-400) K/uL MPV (7.2-11.7) fL Neut % (Auto) (50.0-75.0) % Lymph % (Auto) (20.0-40.0) % [place] % (Auto) (0.0-10.0) % Eos % (Auto) (0.0-4.0) % Baso % (Auto) (0.0-2.0) % Neut # (Auto) (1.8-7.0) K/uL Lymph # (Auto) (1.0-4.3) K/uL [place] # (Auto) (0.0-0.8) K/uL Eos # (Auto) (0.0-0.7) K/uL Baso # (Auto) (0.0-0.2) K/uL Sodium (132-148) mmol/L Potassium (3.6-5.2) mmol/L Chloride (98-107) mmol/L Carbon Dioxide (22-30) mmol/L Anion Gap (10-20) BUN (9-20) mg/dL Creatinine (0.8-1.5) mg/dL Est GFR ( Amer) Est GFR (Non-Af Amer) POC Glucose (mg/dL) 160 H 109 121 H (65-110) mg/dL Random Glucose (75-110) mg/dL Calcium (8.6-10.4) mg/dl Phosphorus (2.5-4.5) mg/dL Magnesium (1.6-2.3) mg/dL Total Bilirubin (0.2-1.3) mg/dL AST (17-59) U/L ALT (21-72) U/L Alkaline Phosphatase (38-126) U/L Total Protein (6.3-8.3) g/dL Albumin (3.5-5.0) g/dL Globulin (2.2-3.9) gm/dL Albumin/Globulin Ratio (1.0-2.1) 03/23/18 03/23/18 03/22/18 Range/Units 06:45 06:45 21:28 WBC 6.3 (4.8-10.8) K/uL RBC 3.02 L (4.40-5.90) Mil/uL Hgb 9.9 L (12.0-18.0) g/dL Hct 31.3 L (35.0-51.0) % MCV 103.5 H (80.0-94.0) fL MCH 32.6 H (27.0-31.0) pg MCHC 31.5 L (33.0-37.0) g/dL RDW 19.5 H (11.5-14.5) % Plt Count 74 L (130-400) K/uL MPV 8.2 (7.2-11.7) fL Neut % (Auto) 79.0 H (50.0-75.0) % Lymph % (Auto) 10.0 L (20.0-40.0) % Montague % (Auto) 7.7 (0.0-10.0) % Eos % (Auto) 2.5 (0.0-4.0) % Baso % (Auto) 0.8 (0.0-2.0) % Neut # (Auto) 5.0 (1.8-7.0) K/uL Lymph # (Auto) 0.6 L (1.0-4.3) K/uL Montague # (Auto) 0.5 (0.0-0.8) K/uL Eos # (Auto) 0.2 (0.0-0.7) K/uL Baso # (Auto) 0.0 (0.0-0.2) K/uL Sodium 146 (132-148) mmol/L Potassium 3.8 (3.6-5.2) mmol/L Chloride 103 (98-107) mmol/L Carbon Dioxide 29 (22-30) mmol/L Anion Gap 18 (10-20) BUN 46 H (9-20) mg/dL Creatinine 4.3 H (0.8-1.5) mg/dL Est GFR ( Amer) 17 Est GFR (Non-Af Amer) 14 POC Glucose (mg/dL) 140 H (65-110) mg/dL Random Glucose 119 H (75-110) mg/dL Calcium 8.8 (8.6-10.4) mg/dl Phosphorus 3.9 (2.5-4.5) mg/dL Magnesium 2.5 H (1.6-2.3) mg/dL Total Bilirubin 0.7 (0.2-1.3) mg/dL AST 32 (17-59) U/L ALT 48 (21-72) U/L Alkaline Phosphatase 106 (38-126) U/L Total Protein 5.8 L (6.3-8.3) g/dL Albumin 3.3 L (3.5-5.0) g/dL Globulin 2.5 (2.2-3.9) gm/dL Albumin/Globulin Ratio 1.3 (1.0-2.1) Laboratory Results - last 24 hr 03/22/18 03/23/18 03/23/18 21:28 06:45 06:45 WBC 6.3 RBC 3.02 L Hgb 9.9 L Hct 31.3 L MCV 103.5 H MCH 32.6 H MCHC 31.5 L RDW 19.5 H Plt Count 74 L MPV 8.2 Neut % (Auto) 79.0 H Lymph % (Auto) 10.0 L [place]ague % (Auto) 7.7 Eos % (Auto) 2.5 Baso % (Auto) 0.8 Neut # (Auto) 5.0 Lymph # (Auto) 0.6 L [place] # (Auto) 0.5 Eos # (Auto) 0.2 Baso # (Auto) 0.0 Sodium 146 Potassium 3.8 Chloride 103 Carbon Dioxide 29 Anion Gap 18 BUN 46 H Creatinine 4.3 H Est GFR ( Amer) 17 Est GFR (Non-Af Amer) 14 POC Glucose (mg/dL) 140 H Random Glucose 119 H Calcium 8.8 Phosphorus 3.9 Magnesium 2.5 H Total Bilirubin 0.7 AST 32 ALT 48 Alkaline Phosphatase 106 Total Protein 5.8 L Albumin 3.3 L Globulin 2.5 Albumin/Globulin Ratio 1.3 03/23/18 03/23/18 03/23/18 07:26 11:04 16:30 WBC RBC Hgb Hct MCV MCH MCHC RDW Plt Count MPV Neut % (Auto) Lymph % (Auto) Montague % (Auto) Eos % (Auto) Baso % (Auto) Neut # (Auto) Lymph # (Auto) Montague # (Auto) Eos # (Auto) Baso # (Auto) Sodium Potassium Chloride Carbon Dioxide Anion Gap BUN Creatinine Est GFR ( Amer) Est GFR (Non-Af Amer) POC Glucose (mg/dL) 121 H 109 160 H Random Glucose Calcium Phosphorus Magnesium Total Bilirubin AST ALT Alkaline Phosphatase Total Protein Albumin Globulin Albumin/Globulin Ratio Fingerstick Blood Sugar Results: 140 Review of Systems - Review of Systems All systems: reviewed and no additional remarkable complaints except (as per subjective) Critical Care Progress Note - Nutrition Nutrition: Nutrition Category Date Time Status Dysphagia/Modified Consistency Diet [DIET] Diets 03/22/18 Breakfast Active Assessment/Plan - Assessment and Plan (Free Text) Assessment: This is a 67 yo M with PMH of CAD s/p pacemaker, CVA, DM, and ESRD on HD who presented for altered mental status. Patient was noted to be in respiratory distress, failed BIPAP in the ED, and was intubated on arrival to the ICU. Patient was also found to be hypotensive, and had a right IJ central line placed , but hypotension resolved prior to initiation of pressors. Patient was extubated 03/21, still tolerating well, currently in no respiratory distress. Plan: Neuro: -Awake, alert and oriented, no acute issues at this time -Continue to monitor neurological status -03/[address]: No evidence of acute intracranial hemorrhage transcortical infarction mass effect or midline shift. Mild atrophy and [id number] chronic microvascular white matter ischemic disease. No significant interval changes noted since the previous exam. -03/[address] Stable limited age related neuro degenerative findings without interval acute hemorrhage mass effect or cortical edema. MRI is available follow-up or CT if clinically warranted. -Maintain normothermia Pulmonary: -03/19 Intubated, extubated 03/21, continues to tolerate well -Not in respiratory distress , oxygenating well on 3L NC -continue Duonebs Q4 -03/22 CXR Worsening congestive heart failure with presumable pulmonary edema in the right lung. Cardiovascular: -Troponin <0.0120 -Not currently hypotensive -s/p Right IJ TLC, but never started on pressors due to hypotension resolving after TLC placement -Continue to monitor -continue ASA 81mg Renal: -Hx of ESRD on HD on TTS -Continue Procrit 4000 units IV TTS, Paracalcitol 2mg IV TTS -Nephrology (Dr. Ortiz) consulted, help appreciated; continue dialysis, s /p extra session yesterday AM -Continue to monitor electrolytes and replete as needed GI: -Protonix 40mg IV for GI ppx -Pureed diet Endo: -A1c: 4, so not diabetic -Continue to monitor blood glucose levels ID: -Afebrile, White count 6.3 today -UA: 3+ leuk esterase, 3+ blood, 2+ protein moderate bacteria -Tylenol 650mg PRN fever -Continue Aztreonam 1g IV, Tigecycline 50mg IV as per ID -ID Dr. Rodas consulted, help appreciated -Original blood cultures positive in 1/2 cx for gram + staph, repeat blood cx x2 negative at 48 hours -Urine, sputum, and nares MRSA cx negative Heme: -H/H unchanged at 9.9/31.3 -No evidence of bleeding -Heparin SC 5000 units q12 for DVT ppx Dispo: Remains in ICU for close monitoring, continuing IV abx, continuing routine HD schedule (next is FEN: Dysphagia diet Access: Peripheral IV, R IJ TLC Consults: ID, Neuro, Nephro, ICU PPX: Heparin 5000 units SC Q12 Code Status: Unknown, so Full by default Case reviewed and discussed with attending, Dr. Valerio. <Sarmad Valerio - Last Filed: 03/25/18 12:23> CCU Objective - Vital Signs / Intake & Output Vital Signs (Last 4 hours): Vital Signs Pulse 03/25/18 09:48 82 Intake and Output (Last 8hrs): Intake & Output 03/24/18 03/25/18 03/25/18 22:59 06:59 14:59 Intake Total 530 Balance 530 Weight 186 lb 1.122 oz Intake: Intake, IV Amount 50 Right Internal Jugular 50 Oral 480 Other: # Voids Urine, Voided 0 # Bowel Movements 2 - Medications Active Medications: Active Medications Generic Name Dose Route Start Last Admin Trade Name Freq PRN Reason Stop Dose Admin Acetaminophen 650 mg 03/22/18 16:47 03/25/18 10:16 Tylenol 650mg/20.3ml Solution Ud PO 650 mg Q6 PRN Administration Headache Albuterol/Ipratropium 3 ml 03/21/18 14:00 03/25/18 07:30 Duoneb 3 Mg/0.5 Mg (3 Ml) Ud INH 3 ml RQ6 BELL Administration Aspirin 81 mg 03/20/18 10:00 03/25/18 09:28 Aspirin Chewable PO 81 mg DAILY BELL Administration Epoetin Mario 4,000 unit 03/19/18 18:00 03/23/18 11:41 Procrit IV 4,000 unit TTS BELL Administration Tigecycline 50 mg/ Sodium 100 mls @ 100 mls/hr 03/20/18 23:00 03/25/18 10:15 Chloride IVPB 100 mls/hr Q12H BELL Administration Protocol Pantoprazole Sodium 40 mg 03/20/18 10:00 03/25/18 09:27 Protonix Inj IVP 40 mg DAILY BELL Administration Paricalcitol 2 mcg 03/19/18 18:00 03/23/18 13:56 Zemplar IV 2 mcg TTS BELL Administration Tramadol HCl 25 mg 03/25/18 11:18 Ultram PO TID PRN Pain, moderate (4-7) - Patient Studies Lab Studies: Microbiology Studies 03/19/18 14:00 Blood Culture - Final Blood NO GROWTH AFTER 5 DAYS Gram Stain - Final TEST NOT PERFORMED 03/21/18 16:00 Blood Culture - Preliminary Blood-Venous NO GROWTH AFTER 3 DAYS 03/21/18 16:00 Blood Culture - Preliminary Blood-Venous NO GROWTH AFTER 3 DAYS Lab Studies 03/25/18 03/25/18 03/25/18 Range/Units 12:01 07:10 06:36 WBC 4.5 L (4.8-10.8) K/uL RBC 3.19 L (4.40-5.90) Mil/uL Hgb 10.2 L (12.0-18.0) g/dL Hct 33.1 L (35.0-51.0) % MCV 103.7 H (80.0-94.0) fL MCH 31.9 H (27.0-31.0) pg MCHC 30.8 L (33.0-37.0) g/dL RDW 19.0 H (11.5-14.5) % Plt Count 100 L (130-400) K/uL MPV 9.7 (7.2-11.7) fL Sodium (132-148) mmol/L Potassium (3.6-5.2) mmol/L Chloride (98-107) mmol/L Carbon Dioxide (22-30) mmol/L Anion Gap (10-20) BUN (9-20) mg/dL Creatinine (0.8-1.5) mg/dL Est GFR ( Amer) Est GFR (Non-Af Amer) POC Glucose (mg/dL) 122 H 95 (65-110) mg/dL Random Glucose (75-110) mg/dL Calcium (8.6-10.4) mg/dl Total Bilirubin (0.2-1.3) mg/dL AST (17-59) U/L ALT (21-72) U/L Alkaline Phosphatase (38-126) U/L Total Protein (6.3-8.3) g/dL Albumin (3.5-5.0) g/dL Globulin (2.2-3.9) gm/dL Albumin/Globulin Ratio (1.0-2.1) 03/25/18 03/24/18 03/24/18 Range/Units 06:33 21:12 18:15 WBC (4.8-10.8) K/uL RBC (4.40-5.90) Mil/uL Hgb (12.0-18.0) g/dL Hct (35.0-51.0) % MCV (80.0-94.0) fL MCH (27.0-31.0) pg MCHC (33.0-37.0) g/dL RDW (11.5-14.5) % Plt Count (130-400) K/uL MPV (7.2-11.7) fL Sodium 142 141 (132-148) mmol/L Potassium 4.5 4.2 (3.6-5.2) mmol/L Chloride 101 100 (98-107) mmol/L Carbon Dioxide 29 29 (22-30) mmol/L Anion Gap 17 16 (10-20) BUN 40 H 36 H (9-20) mg/dL Creatinine 4.3 H 3.8 H (0.8-1.5) mg/dL Est GFR ( Amer) 17 19 Est GFR (Non-Af Amer) 14 16 POC Glucose (mg/dL) 107 (65-110) mg/dL Random Glucose 91 123 H (75-110) mg/dL Calcium 9.1 9.0 (8.6-10.4) mg/dl Total Bilirubin 0.8 0.6 (0.2-1.3) mg/dL AST 21 28 (17-59) U/L ALT 41 42 (21-72) U/L Alkaline Phosphatase 104 95 (38-126) U/L Total Protein 6.0 L 5.6 L (6.3-8.3) g/dL Albumin 3.2 L 3.1 L (3.5-5.0) g/dL Globulin 2.8 2.4 (2.2-3.9) gm/dL Albumin/Globulin Ratio 1.2 1.3 (1.0-2.1) 03/24/18 Range/Units 16:19 WBC (4.8-10.8) K/uL RBC (4.40-5.90) Mil/uL Hgb (12.0-18.0) g/dL Hct (35.0-51.0) % MCV (80.0-94.0) fL MCH (27.0-31.0) pg MCHC (33.0-37.0) g/dL RDW (11.5-14.5) % Plt Count (130-400) K/uL MPV (7.2-11.7) fL Sodium (132-148) mmol/L Potassium (3.6-5.2) mmol/L Chloride (98-107) mmol/L Carbon Dioxide (22-30) mmol/L Anion Gap (10-20) BUN (9-20) mg/dL Creatinine (0.8-1.5) mg/dL Est GFR ( Amer) Est GFR (Non-Af Amer) POC Glucose (mg/dL) 92 (65-110) mg/dL Random Glucose (75-110) mg/dL Calcium (8.6-10.4) mg/dl Total Bilirubin (0.2-1.3) mg/dL AST (17-59) U/L ALT (21-72) U/L Alkaline Phosphatase (38-126) U/L Total Protein (6.3-8.3) g/dL Albumin (3.5-5.0) g/dL Globulin (2.2-3.9) gm/dL Albumin/Globulin Ratio (1.0-2.1) Laboratory Results - last 24 hr 03/24/18 03/24/18 03/24/18 16:19 18:15 21:12 WBC RBC Hgb Hct MCV MCH MCHC RDW Plt Count MPV Sodium 141 Potassium 4.2 Chloride 100 Carbon Dioxide 29 Anion Gap 16 BUN 36 H Creatinine 3.8 H Est GFR ( Amer) 19 Est GFR (Non-Af Amer) 16 POC Glucose (mg/dL) 92 107 Random Glucose 123 H Calcium 9.0 Total Bilirubin 0.6 AST 28 ALT 42 Alkaline Phosphatase 95 Total Protein 5.6 L Albumin 3.1 L Globulin 2.4 Albumin/Globulin Ratio 1.3 03/25/18 03/25/18 03/25/18 06:33 06:36 07:10 WBC 4.5 L RBC 3.19 L Hgb 10.2 L Hct 33.1 L MCV 103.7 H MCH 31.9 H MCHC 30.8 L RDW 19.0 H Plt Count 100 L MPV 9.7 Sodium 142 Potassium 4.5 Chloride 101 Carbon Dioxide 29 Anion Gap 17 BUN 40 H Creatinine 4.3 H Est GFR ( Amer) 17 Est GFR (Non-Af Amer) 14 POC Glucose (mg/dL) 95 Random Glucose 91 Calcium 9.1 Total Bilirubin 0.8 AST 21 ALT 41 Alkaline Phosphatase 104 Total Protein 6.0 L Albumin 3.2 L Globulin 2.8 Albumin/Globulin Ratio 1.2 03/25/18 12:01 WBC RBC Hgb Hct MCV MCH MCHC RDW Plt Count MPV Sodium Potassium Chloride Carbon Dioxide Anion Gap BUN Creatinine Est GFR ( Amer) Est GFR (Non-Af Amer) POC Glucose (mg/dL) 122 H Random Glucose Calcium Total Bilirubin AST ALT Alkaline Phosphatase Total Protein Albumin Globulin Albumin/Globulin Ratio Critical Care Progress Note - Nutrition Nutrition: Nutrition Category Date Time Status Dysphagia/Modified Consistency Diet [DIET] Diets 03/22/18 Breakfast Active Attending/Attestation - Attestation I have personally seen and examined this patient.: Yes I have fully participated in the care of the patient.: Yes I have reviewed all pertinent clinical information: Yes
[2018-03-23] MEDS: Aztreonam 1 GM in Sodium Chloride 0.9% 100 ML IVPB SCH (18:19)
--- NOTE | 2018-03-23 22:42 | CP.PCM.PN ---
Subjective - Date & Time of Evaluation Date of Evaluation: 03/23/18 Time of Evaluation: 18:00 - Subjective Subjective: dictated Objective - Vital Signs/Intake and Output Vital Signs (last 24 hours): Temp Pulse Resp BP Pulse Ox 98.8 F 80 11 L 149/34 L 100 03/23/18 18:00 03/23/18 19:22 03/23/18 19:22 03/23/18 19:22 03/23/18 19:22 Intake and Output: 03/23/18 03/24/18 18:59 06:59 Intake Total 840 0 Balance 840 0 - Medications Medications: Current Medications Acetaminophen (Tylenol 650mg/20.3ml Solution Ud) 650 mg PO Q6 PRN PRN Reason: Headache Last Admin: 03/23/18 11:40 Dose: 650 mg Albuterol/Ipratropium (Duoneb 3 Mg/0.5 Mg (3 Ml) Ud) 3 ml INH RQ6 BELL Last Admin: 03/23/18 19:33 Dose: 3 ml Aspirin (Aspirin Chewable) 81 mg PO DAILY [facility] Last Admin: 03/23/18 14:11 Dose: 81 mg Epoetin Mario (Procrit) 4,000 unit IV TTS BELL Last Admin: 03/23/18 11:41 Dose: 4,000 unit Aztreonam 1 gm/ Sodium (Chloride) 100 mls @ 100 mls/hr IVPB Q24H BELL PRN Reason: Protocol Last Admin: 03/23/18 18:19 Dose: 100 mls/hr Tigecycline 50 mg/ Sodium (Chloride) 100 mls @ 100 mls/hr IVPB Q12H BELL PRN Reason: Protocol Last Admin: 03/23/18 14:12 Dose: 100 mls/hr Pantoprazole Sodium (Protonix Inj) 40 mg IVP DAILY [facility] Last Admin: 03/23/18 14:11 Dose: 40 mg Paricalcitol (Zemplar) 2 mcg IV TTS BELL Last Admin: 03/23/18 13:56 Dose: 2 mcg - Labs Labs: 03/23/18 06:45 03/23/18 06:45 PT 10.7 SECONDS (9.7-12.2) 03/19/18 14:18 INR 1.0 03/19/18 14:18 APTT 39 SECONDS (21-34) H 03/19/18 14:18
--- NOTE | 2018-03-24 01:09 | PN ---
Copied To: Sergo Holbrook MD Attending MD: Sergo Holbrook MD DATE: 03/23/2018 SUBJECTIVE: He was seen today. His was at the bedside. She says he was not eating much. He was more alert. He was even talking, but he did not want to eat. His head was atraumatic. Tongue was moist. PHYSICAL EXAMINATION: VITAL SIGNS: Temperature, he was afebrile; pulse of 81; blood pressure 149/34, respirations are 18. HEENT: Head is atraumatic, normocephalic. He was on nasal O2. LUNGS: Clear. HEART: S1, S2 are regular. ABDOMEN: Soft, nontender. No guarding, no rigidity present. EXTREMITIES: He has Venodyne. He has foot protectors on the lower extremities. LABORATORY DATA: White count was 6.3. BUN is 46, creatinine is 4.3. He is a dialysis patient. His cultures showed urine culture and blood cultures everything came out negative, and initial MRSA was there. ASSESSMENT AND PLAN: Antibiotics, he is on Azactam and Tygacil. At this time, his last chest x-ray shows right line in the superior vena cava, right internal jugular line terminates in superior vena cava and lungs worsening pulmonary venous congestion and worsening opacification of the right. This persists in airspace disease in the right lower lobe. The x-ray showing some worsening on the new film on 03/22/2018, may need to be followed. Pulmonary is following. We will continue antibiotics at this time and will follow with them. He is status post respiratory failure. He has end-stage renal disease. We will follow. Sergo Holbrook MD
[2018-03-24] MEDS: Albuterol-Ipratrop 3 mg / 0.5 (3 ml) UD INH SCH ×4 (01:23→19:25)
[2018-03-24 06:42] LABS: HEMOGLOBIN 10.1 g/dL (12.0-18.0); MEAN CELL VOLUME 104.3 fL (80.0-94.0); MEAN CORPUSCULAR HGB CONC 31.6 g/dL (33.0-37.0); MEAN PLATELET VOLUME 9.9 fL (7.2-11.7); RBC 3.08 Mil/uL (4.40-5.90); RED CELL DISTRIBUTION WIDTH 19.4 % (11.5-14.5); WHITE BLOOD COUNT 5.3 K/uL (4.8-10.8)
[2018-03-24 07:00] LABS: ALB/GLOB RATIO 1.2 (1.0-2.1); ALBUMIN 3.3 g/dL (3.5-5.0); CALCIUM 6.3 mg/dl (8.6-10.4)
[2018-03-24] MEDS ORDERED: Sod Polystyrene Sulf 15 gm/60 ml Susp PO ONE (08:03)
--- NOTE | 2018-03-24 10:55 | CP.PCM.PN ---
Subjective - Date & Time of Evaluation Date of Evaluation: 03/24/18 Time of Evaluation: 10:55 - Subjective Subjective: pt is seen and examined, follow up consult is dictated #[id number] Objective - Vital Signs/Intake and Output Vital Signs (last 24 hours): Temp Pulse Resp BP Pulse Ox 98.3 F 80 16 168/53 H 100 03/24/18 04:50 03/24/18 04:50 03/24/18 04:50 03/24/18 04:22 03/24/18 04:50 Intake and Output: 03/24/18 03/24/18 06:59 18:59 Intake Total 100 0 Output Total 0 Balance 100 0 - Medications Medications: Current Medications Acetaminophen (Tylenol 650mg/20.3ml Solution Ud) 650 mg PO Q6 PRN PRN Reason: Headache Last Admin: 03/23/18 11:40 Dose: 650 mg Albuterol/Ipratropium (Duoneb 3 Mg/0.5 Mg (3 Ml) Ud) 3 ml INH RQ6 [facility] Last Admin: 03/24/18 07:48 Dose: 3 ml Aspirin (Aspirin Chewable) 81 mg PO DAILY [facility] Last Admin: 03/24/18 10:03 Dose: 81 mg Epoetin Mario (Procrit) 4,000 unit IV TTS BELL Last Admin: 03/23/18 11:41 Dose: 4,000 unit Aztreonam 1 gm/ Sodium (Chloride) 100 mls @ 100 mls/hr IVPB Q24H BELL PRN Reason: Protocol Last Admin: 03/23/18 18:19 Dose: 100 mls/hr Tigecycline 50 mg/ Sodium (Chloride) 100 mls @ 100 mls/hr IVPB Q12H BELL PRN Reason: Protocol Last Admin: 03/24/18 10:04 Dose: 100 mls/hr Pantoprazole Sodium (Protonix Inj) 40 mg IVP DAILY [facility] Last Admin: 03/24/18 10:03 Dose: 40 mg Paricalcitol (Zemplar) 2 mcg IV TTS BELL Last Admin: 03/23/18 13:56 Dose: 2 mcg - Labs Labs: 03/24/18 06:32 03/24/18 06:32 PT 10.7 SECONDS (9.7-12.2) 03/19/18 14:18 INR 1.0 03/19/18 14:18 APTT 39 SECONDS (21-34) H 03/19/18 14:18
--- NOTE | 2018-03-24 11:43 | PN ---
Copied To: Carlos Andrews DO Attending MD: Carlos Andrews DO DATE: 03/24/2018 SUBJECTIVE: I saw him in the intensive care unit with breathing treatment on. He told me that last night being short of breath with some mucus congestion. He is doing better this morning, talking. He is eating, maybe 40% of his tray. He wants to go back to [facility], I told him he cannot do that yet. He is on aspirin, aztreonam, DuoNeb, Procrit, Protonix, Tygacil, Tylenol, Zemplar. PHYSICAL EXAMINATION: VITAL SIGNS: He has 98.3 temp, 80 pulse, 168/52 blood pressure, 16 respiratory rate, 100 of O2 sat on nasal cannula 2 liters. GENERAL: He is much more alert, talking well. No chest pressure or shortness of breath, but has some coughing with some phlegm. HEENT: Head is atraumatic and normocephalic. HEART: Regular rate. LUNGS: Decreased breath sounds, but clear. ABDOMEN: Soft, obese. EXTREMITIES: He has got weakness, but no edema, which is better. LABORATORY DATA: He has a 5.3 white count, 10.1 hemoglobin, 32.1 hematocrit with 86 platelets. He has 142 sodium, potassium of 6.1, I will give him Kayexalate. BUN 31, creatinine 3. He is on dialysis. Sugar is 95. Calcium is 6.3, total bili is 0.8. AST is 27, ALT is 39, alk phos 91. Total protein is 6. He is having a bad urosepsis, history of coagulase-negative staph also in the blood. He has been seen by multiple physicians. He has pulmonary venous congestion with opacification of the right lung. Had status post respiratory failure. He has end-stage renal disease, hypercapnic respiratory failure, congestive heart failure. We will continue aggressive treatment and care. Get him out of bed to chair if possible. Encouraged diet. I will give him some Kayexalate for the 6.1 potassium today. We will check his labs tomorrow. Carlos Andrews DO [facility] # [id number]
[2018-03-24] MEDS: Acetaminophen 650mg/20.3ml solution UD PO PRN (11:56)
--- NOTE | 2018-03-24 13:20 | CP.PCM.PN ---
Subjective - Date & Time of Evaluation Date of Evaluation: 03/24/18 Time of Evaluation: 12:00 - Subjective Subjective: Pulmonary Evaluation The patient was Seen/interviewed and examined by me at the bedside, Medical records reviewed and Management issues were discussed and formulated with the house staff. Events reviewed 67 Years old Male with PMHx of HTN, Hypercholesterolemia, Hyperlipidemia, Anemia , Asthma, Sleep Apnea, CHF, Peripheral Edema, COPD, CVA (affecting left side), Depression, and End Stage Renal Disease (on hemodialysis). Who presented to the Emergency department on 03/19 with altered mental status. Patient was found altered this morning at assisted. He was sent to dialysis , where the dialysis nurses also thought he seemed altered. Code Stroke called on arrival to the ER, As per prior note, patient has prior left upper extremity and bilateral lower extremity deficit from prior CVA. Last known to be well yesterday at 03/18/18. He was found to have elevated PCo2 of 102, PH 7.13, PO2 of 56 and lactate 0.5 Intubated upon arrival for hypercabnic respiratory failure with AMS 03/19 CXR Congestive heart failure with interval increase right pleural effusion 2/3 to 3/4 of the right hemithorax now. Extensive compressive atelectasis inferred ABG pH 7.13 pCO2 103 Clinically improving, Successfully extubated on 03/21. No Vasopressors Awake, Alert, follows some commands. not anxious or agitated Comfortable, NAD Denies any chest pain, SOB or Palpitations Afebrile, NSR on the monitor Objective - Vital Signs/Intake and Output Vital Signs (last 24 hours): Temp Pulse Resp BP Pulse Ox 98.7 F 78 18 168/53 H 100 03/24/18 12:00 03/24/18 12:00 03/24/18 12:00 03/24/18 04:22 03/24/18 12:00 Intake and Output: 03/24/18 03/24/18 06:59 18:59 Intake Total 100 0 Output Total 0 Balance 100 0 - Medications Medications: Current Medications Acetaminophen (Tylenol 650mg/20.3ml Solution Ud) 650 mg PO Q6 PRN PRN Reason: Headache Last Admin: 03/24/18 11:56 Dose: 650 mg Albuterol/Ipratropium (Duoneb 3 Mg/0.5 Mg (3 Ml) Ud) 3 ml INH RQ6 BELL Last Admin: 03/24/18 13:02 Dose: 3 ml Aspirin (Aspirin Chewable) 81 mg PO DAILY [facility] Last Admin: 03/24/18 10:03 Dose: 81 mg Epoetin Mario (Procrit) 4,000 unit IV TTS [facility] Last Admin: 03/23/18 11:41 Dose: 4,000 unit Aztreonam 1 gm/ Sodium (Chloride) 100 mls @ 100 mls/hr IVPB Q24H BELL PRN Reason: Protocol Last Admin: 03/23/18 18:19 Dose: 100 mls/hr Tigecycline 50 mg/ Sodium (Chloride) 100 mls @ 100 mls/hr IVPB Q12H BELL PRN Reason: Protocol Last Admin: 03/24/18 10:04 Dose: 100 mls/hr Pantoprazole Sodium (Protonix Inj) 40 mg IVP DAILY [facility] Last Admin: 03/24/18 10:03 Dose: 40 mg Paricalcitol (Zemplar) 2 mcg IV TTS [facility] Last Admin: 03/23/18 13:56 Dose: 2 mcg - Labs Labs: 03/24/18 06:32 03/24/18 06:32 PT 10.7 SECONDS (9.7-12.2) 03/19/18 14:18 INR 1.0 03/19/18 14:18 APTT 39 SECONDS (21-34) H 03/19/18 14:18 - Constitutional Appears: Well, Non-toxic, No Acute Distress, Chronically Ill - Head Exam Head Exam: absent: ATRAUMATIC, NORMAL INSPECTION - Eye Exam Eye Exam: EOMI, Normal appearance. absent: Conjunctival injection - ENT Exam ENT Exam: Mucous Membranes Dry - Neck Exam Neck Exam: Full ROM. absent: Lymphadenopathy, Meningismus, Tenderness - Respiratory Exam Respiratory Exam: Decreased Breath Sounds, Prolonged Expiratory Phase, Rhonchi. absent: Accessory Muscle Use, Chest Wall Tenderness ((pacemaker palpable in right anterior chest)), Rales, Wheezes, Respiratory Distress - Cardiovascular Exam Cardiovascular Exam: REGULAR RHYTHM, RRR, +S1, +S2. absent: Irregular Rhythm, JVD, +S4, Murmur - GI/Abdominal Exam GI & Abdominal Exam: Soft, Normal Bowel Sounds. absent: Bruit, Distended, Firm , Rigid - Extremities Exam Extremities Exam: Full ROM, Pedal Edema. absent: Calf Tenderness, Joint Swelling, Normal Inspection ((AV fistula left upper extremity, bruit auscultated. Radial pulses +1 bilaterally )) - Back Exam Back Exam: absent: CVA tenderness (L), CVA tenderness (R) - Neurological Exam Neurological Exam: Alert, Awake, Motor Sensory Deficit. absent: Altered Assessment and Plan (1) Hypercapnic respiratory failure Assessment & Plan: 03/22 CXR Worsening congestive heart failure with presumable pulmonary edema in the right lung. Successfully extubated 03/21 Continue Nebulizer treatment Q 4H Suplemental Oxygen Nocturnal BIPAP Continue BiPAP at night or as needed Taper IV steroids Status: Acute (2) Altered mental status Assessment & Plan: -03/[address]: No evidence of acute intracranial hemorrhage transcortical infarction mass effect or midline shift. Mild atrophy and [id number] chronic microvascular white matter ischemic disease. No significant interval changes noted since the previous exam. -03/[address] Stable limited age related neuro degenerative findings without interval acute hemorrhage mass effect or cortical edema. MRI is available follow-up or CT if clinically warranted. Toxic metabolic encephalopathy, Neurologically improved Awake, alert and oriented, no new focal defecits Continue to monitor neurological status Maintain normothermia Status: Acute (3) CHF (congestive heart failure), NYHA class III Status: Acute (4) Atelectasis of right lung Assessment & Plan: Aggressive pulmonary toilet Maintain aspiration precautions Status: Acute (5) COPD (chronic obstructive pulmonary disease) Assessment & Plan: Albuterol/Ipratropium INH RQ4 Wean off BIPAP, Use of BIPAP as needed Status: Acute (6) Respiratory acidosis Assessment & Plan: 03/21 ABG 7.48/41/64/31/96% Status: Resolved (7) Pleural effusion Status: Acute (8) ESRD (end stage renal disease) on dialysis Status: Chronic
--- NOTE | 2018-03-24 13:43 | CP.CCUPN ---
<Lester Man - Last Filed: 03/24/18 19:42> CCU Subjective - Physician Review Subjective (Free Text): 03/24/18 19:42 Patient seen and examined at bedside. No acute complaints, but reports still not feeling well; does feel better in comparison to prior days. Able to speak in full sentences without dyspnea. Denies current chest pain, shortness of breath, nausea, emesis. CCU Objective - Vital Signs / Intake & Output Vital Signs (Last 4 hours): Vital Signs Temp Pulse Resp Pulse Ox 03/24/18 12:00 98.7 F 78 18 100 03/24/18 10:00 84 Intake and Output (Last 8hrs): Intake & Output 03/23/18 03/24/18 03/24/18 22:59 06:59 14:59 Intake Total 100 100 0 Output Total 0 Balance 100 100 0 Weight 84.64 kg Intake: Intake, IV Amount 100 100 0 Right Distal Port 0 100 0 Internal Jugular Right Forearm 100 0 0 Right Medial Port 0 0 0 Internal Jugular Right Proximal Port 0 0 Internal Jugular Oral 0 0 Output: Urine 0 Urine, Voided 0 Other: # Bowel Movements 1 - Physical Exam Head: Positive for: Atraumatic, Normocephalic Pupils: Negative for: Non-Reactive, Pinpoint Extroacular Muscles: Positive for: EOMI Conjunctiva: Positive for: Normal. Negative for: Injected, Icteric Mouth: Positive for: Moist Mucous Membranes, Normal Tounge. Negative for: Dry, Drooling Nose (External): Positive for: Atraumatic. Negative for: Abrasion, Contusion, Laceration Nose (Internal): Positive for: No Active Bleeding. Negative for: Epistaxis Neck: Positive for: Trachea Midline, Other (Right IJ TLC). Negative for: JVD Respiratory/Chest: Positive for: Decreased Breath Sounds (still decreased, but improved compared to yesterday), Other (pacemaker palpable in right anterior chest). Negative for: Respiratory Distress, Wheezes, Rales, Retracting, Rhonchi Cardiovascular: Positive for: Normal S1, S2, Peripheal Pulses Present (+1 radials and dorsalis pedis bilaterally), Other (Paced at 90s). Negative for: Irregular Rhythm, Tachycardic, Bradycardic Abdomen: Positive for: Normal Bowel Sounds. Negative for: Tenderness, Distention Upper Extremity: Positive for: Normal Inspection, Normal ROM, NORMAL PULSES, Other (AV fistula left upper extremity, bruit auscultated. Radial pulses +1 bilaterally. ). Negative for: Cyanosis, Edema, Tenderness, Swelling, Erythema Lower Extremity: Positive for: Normal Inspection, NORMAL PULSES (+1 Dorsalis pedis pulses present bilaterally). Negative for: Edema, CALF TENDERNESS, Cyanosis, Tenderness, Swelling, Erythema, Deformity Neurological: Positive for: GCS=15, Speech Normal Skin: Positive for: Warm, Dry Lymphatic: Negative for: Cervical Adenopathy Psychiatric: Positive for: Other (Awake, alert and oriented, not overtly anxious or agitated) - Medications Active Medications: Active Medications Generic Name Dose Route Start Last Admin Trade Name Freq PRN Reason Stop Dose Admin Acetaminophen 650 mg 03/22/18 16:47 03/24/18 11:56 Tylenol 650mg/20.3ml Solution Ud PO 650 mg Q6 PRN Administration Headache Albuterol/Ipratropium 3 ml 03/21/18 14:00 03/24/18 13:02 Duoneb 3 Mg/0.5 Mg (3 Ml) Ud INH 3 ml RQ6 BELL Administration Aspirin 81 mg 03/20/18 10:00 03/24/18 10:03 Aspirin Chewable PO 81 mg DAILY [facility] Administration Epoetin Mario 4,000 unit 03/19/18 18:00 03/23/18 11:41 Procrit IV 4,000 unit TTS BELL Administration Aztreonam 1 gm/ Sodium 100 mls @ 100 mls/hr 03/19/18 18:30 03/23/18 18:19 Chloride IVPB 100 mls/hr Q24H BELL Administration Protocol Tigecycline 50 mg/ Sodium 100 mls @ 100 mls/hr 03/20/18 23:00 03/24/18 10:04 Chloride IVPB 100 mls/hr Q12H BELL Administration Protocol Pantoprazole Sodium 40 mg 03/20/18 10:00 03/24/18 10:03 Protonix Inj IVP 40 mg DAILY [facility] Administration Paricalcitol 2 mcg 03/19/18 18:00 03/23/18 13:56 Zemplar IV 2 mcg TTS BELL Administration - Patient Studies Lab Studies: Microbiology Studies 03/19/18 14:00 Blood Culture - Preliminary Blood NO GROWTH AFTER 4 DAYS 03/21/18 16:00 Blood Culture - Preliminary Blood-Venous NO GROWTH AFTER 48 HOURS 03/21/18 16:00 Blood Culture - Preliminary Blood-Venous NO GROWTH AFTER 48 HOURS Lab Studies 03/24/18 03/24/18 03/24/18 Range/Units 11:52 07:16 06:32 WBC (4.8-10.8) K/uL RBC (4.40-5.90) Mil/uL Hgb (12.0-18.0) g/dL Hct (35.0-51.0) % MCV (80.0-94.0) fL MCH (27.0-31.0) pg MCHC (33.0-37.0) g/dL RDW (11.5-14.5) % Plt Count (130-400) K/uL MPV (7.2-11.7) fL Sodium 142 (132-148) mmol/L Potassium 6.1 H (3.6-5.2) mmol/L Chloride 101 (98-107) mmol/L Carbon Dioxide 28 (22-30) mmol/L Anion Gap 20 (10-20) BUN 31 H (9-20) mg/dL Creatinine 3.0 H (0.8-1.5) mg/dL Est GFR ( Amer) 26 Est GFR (Non-Af Amer) 21 POC Glucose (mg/dL) 110 95 (65-110) mg/dL Random Glucose 103 (75-110) mg/dL Calcium 6.3 L (8.6-10.4) mg/dl Total Bilirubin 0.8 (0.2-1.3) mg/dL AST 27 (17-59) U/L ALT 39 (21-72) U/L Alkaline Phosphatase 91 (38-126) U/L Total Protein 6.0 L (6.3-8.3) g/dL Albumin 3.3 L (3.5-5.0) g/dL Globulin 2.7 (2.2-3.9) gm/dL Albumin/Globulin Ratio 1.2 (1.0-2.1) 03/24/18 03/23/18 03/23/18 Range/Units 06:32 21:35 16:30 WBC 5.3 (4.8-10.8) K/uL RBC 3.08 L (4.40-5.90) Mil/uL Hgb 10.1 L (12.0-18.0) g/dL Hct 32.1 L (35.0-51.0) % MCV 104.3 H (80.0-94.0) fL MCH 33.0 H (27.0-31.0) pg MCHC 31.6 L (33.0-37.0) g/dL RDW 19.4 H (11.5-14.5) % Plt Count 86 L (130-400) K/uL MPV 9.9 (7.2-11.7) fL Sodium (132-148) mmol/L Potassium (3.6-5.2) mmol/L Chloride (98-107) mmol/L Carbon Dioxide (22-30) mmol/L Anion Gap (10-20) BUN (9-20) mg/dL Creatinine (0.8-1.5) mg/dL Est GFR ( Amer) Est GFR (Non-Af Amer) POC Glucose (mg/dL) 164 H 160 H (65-110) mg/dL Random Glucose (75-110) mg/dL Calcium (8.6-10.4) mg/dl Total Bilirubin (0.2-1.3) mg/dL AST (17-59) U/L ALT (21-72) U/L Alkaline Phosphatase (38-126) U/L Total Protein (6.3-8.3) g/dL Albumin (3.5-5.0) g/dL Globulin (2.2-3.9) gm/dL Albumin/Globulin Ratio (1.0-2.1) Laboratory Results - last 24 hr 03/23/18 03/23/18 03/24/18 16:30 21:35 06:32 WBC 5.3 RBC 3.08 L Hgb 10.1 L Hct 32.1 L MCV 104.3 H MCH 33.0 H MCHC 31.6 L RDW 19.4 H Plt Count 86 L MPV 9.9 Sodium Potassium Chloride Carbon Dioxide Anion Gap BUN Creatinine Est GFR ( Amer) Est GFR (Non-Af Amer) POC Glucose (mg/dL) 160 H 164 H Random Glucose Calcium Total Bilirubin AST ALT Alkaline Phosphatase Total Protein Albumin Globulin Albumin/Globulin Ratio 03/24/18 03/24/18 03/24/18 06:32 07:16 11:52 WBC RBC Hgb Hct MCV MCH MCHC RDW Plt Count MPV Sodium 142 Potassium 6.1 H Chloride 101 Carbon Dioxide 28 Anion Gap 20 BUN 31 H Creatinine 3.0 H Est GFR ( Amer) 26 Est GFR (Non-Af Amer) 21 POC Glucose (mg/dL) 95 110 Random Glucose 103 Calcium 6.3 L Total Bilirubin 0.8 AST 27 ALT 39 Alkaline Phosphatase 91 Total Protein 6.0 L Albumin 3.3 L Globulin 2.7 Albumin/Globulin Ratio 1.2 Fingerstick Blood Sugar Results: 110 Review of Systems - Review of Systems All systems: reviewed and no additional remarkable complaints except (as per subjective) Critical Care Progress Note - Nutrition Nutrition: Nutrition Category Date Time Status Dysphagia/Modified Consistency Diet [DIET] Diets 03/22/18 Breakfast Active Assessment/Plan - Assessment and Plan (Free Text) Assessment: This is a 67 yo M with PMH of CAD s/p pacemaker, CVA, DM, and ESRD on HD who presented for altered mental status. Patient was noted to be in respiratory distress, failed BIPAP in the ED, and was intubated on arrival to the ICU. Patient was also found to be hypotensive, and had a right IJ central line placed , but hypotension resolved prior to initiation of pressors. Patient was extubated 03/21, still tolerating well, currently in no respiratory distress. Transferred to telemetry. Plan: Neuro: -Awake, alert and oriented, no acute issues at this time -Continue to monitor neurological status -03/[address]: No evidence of acute intracranial hemorrhage transcortical infarction mass effect or midline shift. Mild atrophy and [id number] chronic microvascular white matter ischemic disease. No significant interval changes noted since the previous exam. -03/[address] Stable limited age related neuro degenerative findings without interval acute hemorrhage mass effect or cortical edema. MRI is available follow-up or CT if clinically warranted. -Maintain normothermia Pulmonary: -03/19 Intubated, extubated 03/21, continues to tolerate well -03/22 CXR Worsening congestive heart failure with presumable pulmonary edema in the right lung. -03/24 CXR: appears improved as compared to prior on L and at R upper lobe region , read as mild pulmonary venous congestion, Patchy atelectasis/infiltrate changes seen throughout the right lung with right-sided effusion. Opacity left lung base likely representing some combination of atelectasis/infiltrate and effusion -Not in respiratory distress, oxygenating well on 3L NC -continue Duonebs Q4 -continue Tygecycline as per ID, Aztreonam discontinued Cardiovascular: -Troponin <0.0120 -Not currently hypotensive -s/p Right IJ TLC, but never started on pressors due to hypotension resolving after TLC placement -Continue to monitor -continue ASA 81mg Renal: -Hx of ESRD on HD on TTS -Continue Procrit 4000 units IV TTS, Paracalcitol 2mg IV TTS -Nephrology (Dr. Ortiz) consulted, help appreciated; continue dialysis -Continue to monitor electrolytes and replete as needed GI: -Protonix 40mg IV for GI ppx -Pureed diet Endo: -A1c: 4, so not diabetic -Continue to monitor blood glucose levels ID: -Afebrile, White count 5.3 today -UA: 3+ leuk esterase, 3+ blood, 2+ protein moderate bacteria -Tylenol 650mg PRN fever -Continue Tigecycline 50mg IV as per ID, Aztreonam discontinued -ID Dr. Rodas consulted, help appreciated -Original blood cultures positive in 1/2 cx for gram + staph, repeat blood cx x2 negative at 48 hours -Urine, sputum, and nares MRSA cx negative Heme: -H/H stable at 10.1/32.1 -No evidence of bleeding -Heparin SC 5000 units q12 for DVT ppx Dispo: Continue IV abx as per ID, continue supplemental O2 as needed, transferred to telemetry FEN: Dysphagia diet Access: Peripheral IV, R IJ TLC Consults: ID, Neuro, Nephro, ICU PPX: Heparin 5000 units SC Q12 Code Status: Unknown, so Full by default Case reviewed and discussed with attending, Dr. Valerio. <Sarmda Valerio - Last Filed: 03/25/18 12:23> CCU Objective - Vital Signs / Intake & Output Vital Signs (Last 4 hours): Vital Signs Pulse 03/25/18 09:48 82 Intake and Output (Last 8hrs): Intake & Output 03/24/18 03/25/18 03/25/18 22:59 06:59 14:59 Intake Total 530 Balance 530 Weight 186 lb 1.122 oz Intake: Intake, IV Amount 50 Right Internal Jugular 50 Oral 480 Other: # Voids Urine, Voided 0 # Bowel Movements 2 - Medications Active Medications: Active Medications Generic Name Dose Route Start Last Admin Trade Name Freq PRN Reason Stop Dose Admin Acetaminophen 650 mg 03/22/18 16:47 03/25/18 10:16 Tylenol 650mg/20.3ml Solution Ud PO 650 mg Q6 PRN Administration Headache Albuterol/Ipratropium 3 ml 03/21/18 14:00 03/25/18 07:30 Duoneb 3 Mg/0.5 Mg (3 Ml) Ud INH 3 ml RQ6 BELL Administration Aspirin 81 mg 03/20/18 10:00 03/25/18 09:28 Aspirin Chewable PO 81 mg DAILY [facility] Administration Epoetin Mario 4,000 unit 03/19/18 18:00 03/23/18 11:41 Procrit IV 4,000 unit TTS [facility] Administration Tigecycline 50 mg/ Sodium 100 mls @ 100 mls/hr 03/20/18 23:00 03/25/18 10:15 Chloride IVPB 100 mls/hr Q12H BELL Administration Protocol Pantoprazole Sodium 40 mg 03/20/18 10:00 03/25/18 09:27 Protonix Inj IVP 40 mg DAILY [facility] Administration Paricalcitol 2 mcg 03/19/18 18:00 03/23/18 13:56 Zemplar IV 2 mcg TTS BELL Administration Tramadol HCl 25 mg 03/25/18 11:18 Ultram PO TID PRN Pain, moderate (4-7) - Patient Studies Lab Studies: Microbiology Studies 03/19/18 14:00 Blood Culture - Final Blood NO GROWTH AFTER 5 DAYS Gram Stain - Final TEST NOT PERFORMED 03/21/18 16:00 Blood Culture - Preliminary Blood-Venous NO GROWTH AFTER 3 DAYS 03/21/18 16:00 Blood Culture - Preliminary Blood-Venous NO GROWTH AFTER 3 DAYS Lab Studies 03/25/18 03/25/18 03/25/18 Range/Units 12:01 07:10 06:36 WBC 4.5 L (4.8-10.8) K/uL RBC 3.19 L (4.40-5.90) Mil/uL Hgb 10.2 L (12.0-18.0) g/dL Hct 33.1 L (35.0-51.0) % MCV 103.7 H (80.0-94.0) fL MCH 31.9 H (27.0-31.0) pg MCHC 30.8 L (33.0-37.0) g/dL RDW 19.0 H (11.5-14.5) % Plt Count 100 L (130-400) K/uL MPV 9.7 (7.2-11.7) fL Sodium (132-148) mmol/L Potassium (3.6-5.2) mmol/L Chloride (98-107) mmol/L Carbon Dioxide (22-30) mmol/L Anion Gap (10-20) BUN (9-20) mg/dL Creatinine (0.8-1.5) mg/dL Est GFR ( Amer) Est GFR (Non-Af Amer) POC Glucose (mg/dL) 122 H 95 (65-110) mg/dL Random Glucose (75-110) mg/dL Calcium (8.6-10.4) mg/dl Total Bilirubin (0.2-1.3) mg/dL AST (17-59) U/L ALT (21-72) U/L Alkaline Phosphatase (38-126) U/L Total Protein (6.3-8.3) g/dL Albumin (3.5-5.0) g/dL Globulin (2.2-3.9) gm/dL Albumin/Globulin Ratio (1.0-2.1) 03/25/18 03/24/18 03/24/18 Range/Units 06:33 21:12 18:15 WBC (4.8-10.8) K/uL RBC (4.40-5.90) Mil/uL Hgb (12.0-18.0) g/dL Hct (35.0-51.0) % MCV (80.0-94.0) fL MCH (27.0-31.0) pg MCHC (33.0-37.0) g/dL RDW (11.5-14.5) % Plt Count (130-400) K/uL MPV (7.2-11.7) fL Sodium 142 141 (132-148) mmol/L Potassium 4.5 4.2 (3.6-5.2) mmol/L Chloride 101 100 (98-107) mmol/L Carbon Dioxide 29 29 (22-30) mmol/L Anion Gap 17 16 (10-20) BUN 40 H 36 H (9-20) mg/dL Creatinine 4.3 H 3.8 H (0.8-1.5) mg/dL Est GFR ( Amer) 17 19 Est GFR (Non-Af Amer) 14 16 POC Glucose (mg/dL) 107 (65-110) mg/dL Random Glucose 91 123 H (75-110) mg/dL Calcium 9.1 9.0 (8.6-10.4) mg/dl Total Bilirubin 0.8 0.6 (0.2-1.3) mg/dL AST 21 28 (17-59) U/L ALT 41 42 (21-72) U/L Alkaline Phosphatase 104 95 (38-126) U/L Total Protein 6.0 L 5.6 L (6.3-8.3) g/dL Albumin 3.2 L 3.1 L (3.5-5.0) g/dL Globulin 2.8 2.4 (2.2-3.9) gm/dL Albumin/Globulin Ratio 1.2 1.3 (1.0-2.1) 03/24/18 Range/Units 16:19 WBC (4.8-10.8) K/uL RBC (4.40-5.90) Mil/uL Hgb (12.0-18.0) g/dL Hct (35.0-51.0) % MCV (80.0-94.0) fL MCH (27.0-31.0) pg MCHC (33.0-37.0) g/dL RDW (11.5-14.5) % Plt Count (130-400) K/uL MPV (7.2-11.7) fL Sodium (132-148) mmol/L Potassium (3.6-5.2) mmol/L Chloride (98-107) mmol/L Carbon Dioxide (22-30) mmol/L Anion Gap (10-20) BUN (9-20) mg/dL Creatinine (0.8-1.5) mg/dL Est GFR ( Amer) Est GFR (Non-Af Amer) POC Glucose (mg/dL) 92 (65-110) mg/dL Random Glucose (75-110) mg/dL Calcium (8.6-10.4) mg/dl Total Bilirubin (0.2-1.3) mg/dL AST (17-59) U/L ALT (21-72) U/L Alkaline Phosphatase (38-126) U/L Total Protein (6.3-8.3) g/dL Albumin (3.5-5.0) g/dL Globulin (2.2-3.9) gm/dL Albumin/Globulin Ratio (1.0-2.1) Laboratory Results - last 24 hr 03/24/18 03/24/18 03/24/18 16:19 18:15 21:12 WBC RBC Hgb Hct MCV MCH MCHC RDW Plt Count MPV Sodium 141 Potassium 4.2 Chloride 100 Carbon Dioxide 29 Anion Gap 16 BUN 36 H Creatinine 3.8 H Est GFR ( Amer) 19 Est GFR (Non-Af Amer) 16 POC Glucose (mg/dL) 92 107 Random Glucose 123 H Calcium 9.0 Total Bilirubin 0.6 AST 28 ALT 42 Alkaline Phosphatase 95 Total Protein 5.6 L Albumin 3.1 L Globulin 2.4 Albumin/Globulin Ratio 1.3 03/25/18 03/25/18 03/25/18 06:33 06:36 07:10 WBC 4.5 L RBC 3.19 L Hgb 10.2 L Hct 33.1 L MCV 103.7 H MCH 31.9 H MCHC 30.8 L RDW 19.0 H Plt Count 100 L MPV 9.7 Sodium 142 Potassium 4.5 Chloride 101 Carbon Dioxide 29 Anion Gap 17 BUN 40 H Creatinine 4.3 H Est GFR ( Amer) 17 Est GFR (Non-Af Amer) 14 POC Glucose (mg/dL) 95 Random Glucose 91 Calcium 9.1 Total Bilirubin 0.8 AST 21 ALT 41 Alkaline Phosphatase 104 Total Protein 6.0 L Albumin 3.2 L Globulin 2.8 Albumin/Globulin Ratio 1.2 03/25/18 12:01 WBC RBC Hgb Hct MCV MCH MCHC RDW Plt Count MPV Sodium Potassium Chloride Carbon Dioxide Anion Gap BUN Creatinine Est GFR ( Amer) Est GFR (Non-Af Amer) POC Glucose (mg/dL) 122 H Random Glucose Calcium Total Bilirubin AST ALT Alkaline Phosphatase Total Protein Albumin Globulin Albumin/Globulin Ratio Critical Care Progress Note - Nutrition Nutrition: Nutrition Category Date Time Status Dysphagia/Modified Consistency Diet [DIET] Diets 03/22/18 Breakfast Active Attending/Attestation - Attestation I have personally seen and examined this patient.: Yes I have fully participated in the care of the patient.: Yes I have reviewed all pertinent clinical information: Yes
--- NOTE | 2018-03-24 14:06 | RAD ---
Date of service: 03/24/2018 HISTORY: f/u chest infiltrates COMPARISON: No prior. FINDINGS: Re- demonstrated is right IJ central line with tip in the SVC. LUNGS: Mild pulmonary venous congestion Patchy atelectasis/ infiltrate changes seen throughout the right lung with right-sided effusion. Opacity left lung base likely representing some combination of atelectasis/infiltrate and effusion PLEURA: As above. No pneumothorax apparent. CARDIOVASCULAR: Heart remains enlarged. Sternotomy wires CABG clips and cardiac defibrillator hardware Endovascular stent graft left axillary region unchanged OSSEOUS STRUCTURES: No significant abnormalities. VISUALIZED UPPER ABDOMEN: Normal. OTHER FINDINGS: None. IMPRESSION: Mild pulmonary venous congestion. Patchy atelectasis/ infiltrate changes seen throughout the right lung with right-sided effusion. Opacity left lung base likely representing some combination of atelectasis/infiltrate and effusion
--- NOTE | 2018-03-24 15:44 | CP.PCM.PN ---
Subjective - Date & Time of Evaluation Date of Evaluation: 03/24/18 Time of Evaluation: 15:00 - Subjective Subjective: DICTATED Objective - Vital Signs/Intake and Output Vital Signs (last 24 hours): Temp Pulse Resp BP Pulse Ox 98.7 F 80 18 168/53 H 100 03/24/18 12:00 03/24/18 15:00 03/24/18 12:00 03/24/18 04:22 03/24/18 12:00 Intake and Output: 03/24/18 03/24/18 06:59 18:59 Intake Total 100 400 Output Total 0 Balance 100 400 - Medications Medications: Current Medications Acetaminophen (Tylenol 650mg/20.3ml Solution Ud) 650 mg PO Q6 PRN PRN Reason: Headache Last Admin: 03/24/18 11:56 Dose: 650 mg Albuterol/Ipratropium (Duoneb 3 Mg/0.5 Mg (3 Ml) Ud) 3 ml INH RQ6 BELL Last Admin: 03/24/18 13:02 Dose: 3 ml Aspirin (Aspirin Chewable) 81 mg PO DAILY BELL Last Admin: 03/24/18 10:03 Dose: 81 mg Epoetin Mario (Procrit) 4,000 unit IV TTS BELL Last Admin: 03/23/18 11:41 Dose: 4,000 unit Tigecycline 50 mg/ Sodium (Chloride) 100 mls @ 100 mls/hr IVPB Q12H BELL PRN Reason: Protocol Last Admin: 03/24/18 10:04 Dose: 100 mls/hr Pantoprazole Sodium (Protonix Inj) 40 mg IVP DAILY BELL Last Admin: 03/24/18 10:03 Dose: 40 mg Paricalcitol (Zemplar) 2 mcg IV TTS BELL Last Admin: 03/23/18 13:56 Dose: 2 mcg - Labs Labs: 03/24/18 06:32 03/24/18 06:32 PT 10.7 SECONDS (9.7-12.2) 03/19/18 14:18 INR 1.0 03/19/18 14:18 APTT 39 SECONDS (21-34) H 03/19/18 14:18
[2018-03-24 18:34] LABS: ALB/GLOB RATIO 1.3 (1.0-2.1); ALBUMIN 3.1 g/dL (3.5-5.0)
--- NOTE | 2018-03-24 20:55 | PN ---
Copied To: Martin Ortiz MD Attending MD: Martin Ortiz MD DATE: 03/23/2018 LOCATION: The patient is located in ICU, bed 16. REQUESTED BY: Carlos Andrews DO HISTORY OF PRESENT ILLNESS: The patient is a 67-year-old elderly obese Tajik male with a history of hypertension, diabetes, hyperlipidemia, coronary artery disease, status post CABG, and CVA and on hemodialysis three times a week, but he was sent from the dialysis unit this time during dialysis, the patient was not responding well and hypotensive, and the patient was thought to have severe CO2 retention and not responding to BiPAP and admitted to ICU and intubated. The patient is not in distress. The patient is being dialyzed and UF goal is about 4 liters. I received a call later on from the registered nurse that the patient wanted to be terminated dialysis after 2 hours 15 minutes and had ultrafiltration about 2.7 liters. PHYSICAL EXAMINATION: VITAL SIGNS: As follows: Blood pressure 177/47, pulse 82, respiration 15, saturation 100%, and temperature is 98.7. Height 5 feet 5 inches. Weight is 194 pounds. GENERAL: The patient is a 67-year-old elderly male, well built, well nourished, not in distress, off his ventilator. HEENT: Pupils normal and reactive to light and accommodation. Conjunctivae pink. Sclerae anicteric. Tongue is moist. Trachea is midline. LUNGS: Symmetric on both sides. Bilateral breath sounds present. Clear to auscultation, CARDIOVASCULAR SYSTEM: [place] at the fifth intercostal space, midclavicular line. S1, S2 audible. No murmur or gallop. ABDOMEN: Normal in appearance. Soft, tympanitic. No guarding. No rigidity. No hepatosplenomegaly. CENTRAL NERVOUS SYSTEM: The patient is alert, awake, and oriented x3. Sensory and motor system is within normal limits on the right side. The patient has weakness on the left upper and lower extremities. EXTREMITIES: No cyanosis, no clubbing, no edema. CURRENT MEDICATIONS: Include aspirin 81 mg p.o. daily, Azactam 1 g every 24 hours, DuoNeb inhaler 3 mL every 6 hours, Procrit 4000 units three times a week, Protonix 40 mg IV daily, tigecycline 50 mg every 12 hours, Tylenol and Zemplar 2 mcg three times a week. LABORATORY DATA: Include as follows as of 03/23/2018: WBC 6.3, hemoglobin 9.9, hematocrit is 31.3, platelets 74. Sodium 146, potassium 3.8, chloride 103, CO2 of 29, BUN 46, creatinine 4.3, glucose 119, calcium 8.8, phosphorus 3.9, magnesium 2.5. Total bili 0.7, AST 32, ALT 48, alkaline phosphatase 106, total protein 5.8, albumin is 3.3. ASSESSMENT AND PLAN: In summary, the patient is a 67-year-old elderly male with hypertension, diabetes, coronary artery disease, status post coronary artery bypass graft, status post cerebrovascular accident, end-stage renal disease, chronic obstructive pulmonary disease with multiple admissions for carbon dioxide retention, now admitted with lethargy and hypotension and found to have carbon dioxide retention hypercarbic respiratory failure, requiring intubation and also blood culture positive for coagulase-negative Staphylococcus x1 set with right pleural effusion, questionable atelectasis. 1. End-stage renal disease. Continue hemodialysis three times a week on Sunday, and Sunday. The patient terminated dialysis early today, had ultrafiltration of about 2.7 liters. 2. Hypertension. Blood pressure is stable. 3. Chronic obstructive pulmonary disease. 4. Status post coagulase-negative Staphylococcus sepsis, rule out contamination. Continue intravenous antibiotics as per Infectious Disease recommendations and restrict fluids to one liter. We will follow with you. Thank you for allowing me to participate in your patient's care. Continue to follow with Pulmonary. Martin Ortiz MD
[2018-03-25] MEDS: Albuterol-Ipratrop 3 mg / 0.5 (3 ml) UD INH SCH ×4 (01:08→19:37)
--- NOTE | 2018-03-25 01:50 | PN ---
Copied To: Sergo Holbrook MD Attending MD: Sergo Holbrook MD DATE: 03/24/2018 SUBJECTIVE: The patient was seen today and the patient was communicating well. I asked him if he was having pain, he says his total body hurts because of this previous stroke and he has not been getting any rehab as it was only for three months. PHYSICAL EXAMINATION: VITAL SIGNS: T max is 98.7, pulse 80, blood pressure is 157/51, respirations are 16. HEENT: Head is atraumatic and normocephalic. HEART: He still has a big triple lumen catheter. S1, S2 is regular. NECK: Supple. LUNGS: Clear. Decreased breath sounds on bases. ABDOMEN: Soft. Nontender. No guarding. No rigidity present. EXTREMITIES: He has foot protectors and from the stroke. LABORATORY DATA: His labs are unremarkable. White count is 5.3. BUN is 36, creatinine 3.8. He is a dialysis patient. Micro leblanc, his blood cultures, urine cultures, sputum culture are normal and one set of blood culture from 03/19/2018 was positive but the repeat cultures instantly were negative, so I think that is a skin contaminant. I was giving him Tygacil and Azactam. At this point I will discontinue Azactam and will follow. ASSESSMENT AND PLAN: He did come in with acute respiratory failure and has been extubated and he is a dialysis patient and he is clinically improving and will follow. Sergo Holbrook MD
[2018-03-25 06:42] LABS: HEMOGLOBIN 10.2 g/dL (12.0-18.0); MEAN CELL VOLUME 103.7 fL (80.0-94.0); MEAN CORPUSCULAR HEMOGLOBIN 31.9 pg (27.0-31.0); MEAN CORPUSCULAR HGB CONC 30.8 g/dL (33.0-37.0); MEAN PLATELET VOLUME 9.7 fL (7.2-11.7); RBC 3.19 Mil/uL (4.40-5.90); WHITE BLOOD COUNT 4.5 K/uL (4.8-10.8)
[2018-03-25 06:58] LABS: ALB/GLOB RATIO 1.2 (1.0-2.1); ALBUMIN 3.2 g/dL (3.5-5.0); CALCIUM 9.1 mg/dl (8.6-10.4)
[2018-03-25] MEDS: Acetaminophen 650mg/20.3ml solution UD PO PRN (10:16)
[2018-03-25] MEDS: Tramadol 25 mg PO PRN ×2 (13:11→22:31)
--- NOTE | 2018-03-25 16:00 | CP.PCM.PN ---
Subjective - Date & Time of Evaluation Date of Evaluation: 03/25/18 Time of Evaluation: 15:59 - Subjective Subjective: pt is seen and examined, follow up consult is dictated #[id number] c/w iv abx for hd in am Objective - Vital Signs/Intake and Output Vital Signs (last 24 hours): Temp Pulse Resp BP Pulse Ox 98.7 F 82 15 162/42 H 98 03/25/18 12:00 03/25/18 09:48 03/25/18 04:00 03/25/18 04:00 03/25/18 04:00 Intake and Output: 03/25/18 03/25/18 06:59 18:59 Intake Total 530 Balance 530 - Medications Medications: Current Medications Acetaminophen (Tylenol 650mg/20.3ml Solution Ud) 650 mg PO Q6 PRN PRN Reason: Headache Last Admin: 03/25/18 10:16 Dose: 650 mg Albuterol/Ipratropium (Duoneb 3 Mg/0.5 Mg (3 Ml) Ud) 3 ml INH RQ6 BELL Last Admin: 03/25/18 13:08 Dose: 3 ml Aspirin (Aspirin Chewable) 81 mg PO DAILY [facility] Last Admin: 03/25/18 09:28 Dose: 81 mg Epoetin Mario (Procrit) 4,000 unit IV TTS BELL Last Admin: 03/23/18 11:41 Dose: 4,000 unit Tigecycline 50 mg/ Sodium (Chloride) 100 mls @ 100 mls/hr IVPB Q12H [facility] PRN Reason: Protocol Last Admin: 03/25/18 10:15 Dose: 100 mls/hr Pantoprazole Sodium (Protonix Inj) 40 mg IVP DAILY [facility] Last Admin: 03/25/18 09:27 Dose: 40 mg Paricalcitol (Zemplar) 2 mcg IV TTS BELL Last Admin: 03/23/18 13:56 Dose: 2 mcg Tramadol HCl (Ultram) 25 mg PO TID PRN PRN Reason: Pain, moderate (4-7) Last Admin: 03/25/18 13:11 Dose: 25 mg - Labs Labs: 03/25/18 06:36 03/25/18 06:33 PT 10.7 SECONDS (9.7-12.2) 03/19/18 14:18 INR 1.0 03/19/18 14:18 APTT 39 SECONDS (21-34) H 03/19/18 14:18
--- NOTE | 2018-03-25 16:09 | PN ---
Copied To: Carlos Andrews DO Attending MD: Carlos Andrews DO DATE: 03/25/2018 SUBJECTIVE: I saw him, resting comfortably in intensive care unit. He tells me he is in a little bit of pain in his back and his arm, but he is improving. He is eating better. He is breathing better. No chest pain. He is in better spirits. He is on chewable aspirin, DuoNeb, Kayexalate with a one time dose, Procrit, Protonix, Tygacil, IV antibiotics, Tylenol. I gave him some Ultram for his pain, and Zemplar. PHYSICAL EXAMINATION: GENERAL: He is alert, talking with me. He is comfortable. He is much better than he was the other days and he understands why he is in the hospital. VITAL SIGNS: He has a 97.3 temp, 84 pulse, 152/42 blood pressure, 15 respiratory rate, and 98% O2 sat on nasal cannula. HEENT: Head atraumatic and normocephalic. He actually smiles to me today. HEART: Regular rate. LUNGS: Decreased breath sounds, but clear, much better. ABDOMEN: Soft, obese, nontender. No guarding, no rebound, and no CVA tenderness. EXTREMITIES: Trace edema if any. LABORATORY DATA: He has 4.5 white count, 10.2 hemoglobin, 32.1 hematocrit with 100 platelets. He has 142 sodium, potassium 4.5, BUN 40, and creatinine 4.3, a little bit worse, he is on dialysis. GFR is 14, sugar is 95, calcium is 9.1, total bili is 0.8, AST is 21, ALT is 41, alk phos 104, and total protein of 6. ASSESSMENT AND PLAN: Waiting for a bed in telemetry. He did have positive blood cultures. He is on antibiotics. He has been seen by an graphics manager and Pulmonology. He is doing better, waiting for telemetry bed. I ordered podiatry. He asked for podiatry consult for his feet, we will do that. Intravenous antibiotics. Continue aggressive treatment and care. Carlos Andrews DO [facility] # [id number]
--- NOTE | 2018-03-25 19:29 | CP.PCM.PN ---
Subjective - Date & Time of Evaluation Date of Evaluation: 03/25/18 Time of Evaluation: 19:00 - Subjective Subjective: Pulmonary Folow up, Covering Dr Frausto The patient was Seen/interviewed and examined by me at the bedside, Medical records reviewed and Management issues were discussed and formulated with the house staff. Events reviewed 67 Years old Male with PMHx of HTN, Hypercholesterolemia, Hyperlipidemia, Anemia , Asthma, Sleep Apnea, CHF, Peripheral Edema, COPD, CVA (affecting left side), Depression, and End Stage Renal Disease (on hemodialysis). Who presented to the Emergency department on 03/19 with altered mental status. Patient was found altered this morning at [facility]. He was sent to dialysis , where the dialysis nurses also thought he seemed altered. Code Stroke called on arrival to the ER, As per prior note, patient has prior left upper extremity and bilateral lower extremity deficit from prior CVA. Last known to be well yesterday at 03/18/18. He was found to have elevated PCo2 of 102, PH 7.13, PO2 of 56 and lactate 0.5 Intubated upon arrival for hypercabnic respiratory failure with AMS 03/19 CXR Congestive heart failure with interval increase right pleural effusion 2/3 to 3/4 of the right hemithorax now. Extensive compressive atelectasis inferred ABG pH 7.13 pCO2 103 Clinically improving, Successfully extubated. No Vasopressors Awake, Alert, follows some commands. not anxious or agitated Comfortable, NAD Denies any chest pain, SOB or Palpitations Afebrile, NSR on the monitor Objective - Vital Signs/Intake and Output Vital Signs (last 24 hours): Temp Pulse Resp BP Pulse Ox 98.3 F 80 12 135/36 L 100 03/25/18 16:00 03/25/18 16:11 03/25/18 16:11 03/25/18 16:11 03/25/18 16:11 Intake and Output: 03/25/18 03/26/18 18:59 06:59 Intake Total 640 Balance 640 - Medications Medications: Current Medications Acetaminophen (Tylenol 650mg/20.3ml Solution Ud) 650 mg PO Q6 PRN PRN Reason: Headache Last Admin: 03/25/18 10:16 Dose: 650 mg Albuterol/Ipratropium (Duoneb 3 Mg/0.5 Mg (3 Ml) Ud) 3 ml INH RQ6 BELL Last Admin: 03/25/18 13:08 Dose: 3 ml Aspirin (Aspirin Chewable) 81 mg PO DAILY [facility] Last Admin: 03/25/18 09:28 Dose: 81 mg Epoetin Mario (Procrit) 4,000 unit IV TTS [facility] Last Admin: 03/23/18 11:41 Dose: 4,000 unit Tigecycline 50 mg/ Sodium (Chloride) 100 mls @ 100 mls/hr IVPB Q12H BE[facility] PRN Reason: Protocol Last Admin: 03/25/18 10:15 Dose: 100 mls/hr Pantoprazole Sodium (Protonix Inj) 40 mg IVP DAILY [facility] Last Admin: 03/25/18 09:27 Dose: 40 mg Paricalcitol (Zemplar) 2 mcg IV TTS [facility] Last Admin: 03/23/18 13:56 Dose: 2 mcg Tramadol HCl (Ultram) 25 mg PO TID PRN PRN Reason: Pain, moderate (4-7) Last Admin: 03/25/18 13:11 Dose: 25 mg - Labs Labs: 03/25/18 06:36 03/25/18 06:33 PT 10.7 SECONDS (9.7-12.2) 03/19/18 14:18 INR 1.0 03/19/18 14:18 APTT 39 SECONDS (21-34) H 03/19/18 14:18 - Constitutional Appears: Well, Non-toxic, No Acute Distress, Older Than Stated Age - Head Exam Head Exam: ATRAUMATIC, NORMAL INSPECTION, NORMOCEPHALIC - Eye Exam Eye Exam: EOMI, Normal appearance. absent: Conjunctival injection Pupil Exam: NORMAL ACCOMODATION, PERRL - ENT Exam ENT Exam: Mucous Membranes Moist, Normal Exam - Neck Exam Neck Exam: Full ROM. absent: Lymphadenopathy, Normal Inspection ((Right IJ TLC) ) - Respiratory Exam Respiratory Exam: Decreased Breath Sounds, Rhonchi, NORMAL BREATHING PATTERN. absent: Accessory Muscle Use, Chest Wall Tenderness ((pacemaker palpable in right anterior chest)), Clear to Ausculation Bilateral, Wheezes, Respiratory Distress - Cardiovascular Exam Cardiovascular Exam: REGULAR RHYTHM, RRR, +S1, +S2. absent: Bradycardia, Tachycardia, Diastolic murmur, Gallop, Irregular Rhythm, JVD, Murmur - GI/Abdominal Exam GI & Abdominal Exam: Soft, Normal Bowel Sounds. absent: Bruit, Distended, Firm , Guarding, Rigid, Tenderness - Extremities Exam Extremities Exam: Full ROM, Normal Capillary Refill, Pedal Edema. absent: Calf Tenderness, Joint Swelling, Normal Inspection ((AV fistula left upper extremity , bruit auscultated. Radial pulses +1 bilaterally. ).) - Back Exam Back Exam: absent: CVA tenderness (L), CVA tenderness (R) - Neurological Exam Neurological Exam: Alert, Awake, Motor Sensory Deficit. absent: Altered Assessment and Plan (1) Hypercapnic respiratory failure Assessment & Plan: Continue Nebulizer treatment Continue BiPAP at night or as needed Taper IV steroids Status: Acute (2) Altered mental status Status: Acute (3) CHF (congestive heart failure), NYHA class III Status: Acute (4) Pleural effusion Status: Acute (5) ESRD (end stage renal disease) on dialysis Status: Chronic
--- NOTE | 2018-03-25 21:00 | CP.PCM.PN ---
Subjective - Date & Time of Evaluation Date of Evaluation: 03/25/18 Time of Evaluation: 16:00 - Subjective Subjective: dictated Objective - Vital Signs/Intake and Output Vital Signs (last 24 hours): Temp Pulse Resp BP Pulse Ox 98.3 F 80 12 135/36 L 100 03/25/18 16:00 03/25/18 16:11 03/25/18 16:11 03/25/18 16:11 03/25/18 16:11 Intake and Output: 03/25/18 03/26/18 18:59 06:59 Intake Total 640 Balance 640 - Medications Medications: Current Medications Acetaminophen (Tylenol 650mg/20.3ml Solution Ud) 650 mg PO Q6 PRN PRN Reason: Headache Last Admin: 03/25/18 10:16 Dose: 650 mg Albuterol/Ipratropium (Duoneb 3 Mg/0.5 Mg (3 Ml) Ud) 3 ml INH RQ6 BELL Last Admin: 03/25/18 19:37 Dose: 3 ml Aspirin (Aspirin Chewable) 81 mg PO DAILY [facility] Last Admin: 03/25/18 09:28 Dose: 81 mg Epoetin Mario (Procrit) 4,000 unit IV TTS BELL Last Admin: 03/23/18 11:41 Dose: 4,000 unit Tigecycline 50 mg/ Sodium (Chloride) 100 mls @ 100 mls/hr IVPB Q12H [facility] PRN Reason: Protocol Last Admin: 03/25/18 10:15 Dose: 100 mls/hr Pantoprazole Sodium (Protonix Inj) 40 mg IVP DAILY BELL Last Admin: 03/25/18 09:27 Dose: 40 mg Paricalcitol (Zemplar) 2 mcg IV TTS BELL Last Admin: 03/23/18 13:56 Dose: 2 mcg Tramadol HCl (Ultram) 25 mg PO TID PRN PRN Reason: Pain, moderate (4-7) Last Admin: 03/25/18 13:11 Dose: 25 mg - Labs Labs: 03/25/18 06:36 03/25/18 06:33 PT 10.7 SECONDS (9.7-12.2) 03/19/18 14:18 INR 1.0 03/19/18 14:18 APTT 39 SECONDS (21-34) H 03/19/18 14:18
--- NOTE | 2018-03-26 01:31 | PN ---
Copied To: Martin Ortiz MD Attending MD: Martin Ortiz MD DATE: 03/25/2018 FOLLOWUP RENAL CONSULTATION LOCATION: The patient is located in ICU, bed 16. REQUESTED BY: Carlos Andrews DO REASON FOR FOLLOWUP: End-stage renal disease, continuation of hemodialysis, status post respiratory failure. HISTORY OF PRESENT ILLNESS: Mr. Gonzales is a 67-year-old elderly obese [place] male with a past medical history significant for longstanding hypertension, diabetes, hyperlipidemia, COPD, asthma, coronary artery disease, status post CABG, CVA with left-sided weakness who was admitted with chief complaints of lethargy and hypotension. The patient was found to have hypercarbic respiratory failure, status post intubation and extubation. The patient was also found to have a questionable CHF versus pneumonia on the x-ray on admission. The patient is feeling slightly better, not in acute distress. Denies any chest pain or palpitation. Denies any fever or cough. No abdominal pain. No nausea, vomiting, diarrhea. PHYSICAL EXAMINATION: VITAL SIGNS: As follows: Blood pressure 135/36, pulse 80, respirations 12, temperature 98.3. Height 5 feet 5 inches, weight is 186 pounds. GENERAL: Mr. Gonzales is a 67-year-old male, moderately built, moderately nourished, not in acute distress. HEENT: Pupils normal and reactive to light and accommodation. Conjunctivae pink. Sclerae anicteric. Tongue is moist. Trachea is midline. LUNGS: Symmetric on both sides. Bilateral breath sounds present, right basal crackles present. CVS: [place] at the fifth intercostal space, midclavicular line. S1, S2 audible. No murmur or gallop. ABDOMEN: Normal in appearance, soft, tympanitic. No guarding. No rigidity. No hepatosplenomegaly. TECHNICAL ANALYST: The patient is alert, awake, and oriented times 2 to 3. Sensory system is grossly within normal limits. Motor system, the patient has a left-sided weakness. EXTREMITIES: No cyanosis, no clubbing, no edema. MEDICATIONS: His current medications include as follows: Aspirin 81 mg p.o. daily, DuoNeb inhaler every 6 hours, Procrit 4000 units 3 times a week, Protonix 40 mg IV daily, tigecycline 50 mg every 12 hours, Tylenol, tramadol 25 mg p.o. t.i.d. p.r.n., Zemplar 2 mcg three times a week. LABORATORY DATA: His current lab data include as follows: As of 03/25/2018, WBC 4.5, hemoglobin 10.2, hematocrit is 33.1, MCV 103.7, platelets of 100. Sodium 142, potassium 4.5, chloride 101, CO2 of 29, BUN 40, creatinine 4.3, and glucose 95, calcium is 9.1. Total bili 0.8, AST 21, ALT 41, alkaline phosphatase 104, total protein 6, albumin is 3.2. Blood culture x2 negative, day four x2, and urine culture is negative as of 03/21/2018. IMPRESSION: In summary, Mr. Conor Gonzales is a 67-year-old elderly obese [place] male with a history of longstanding hypertension, diabetes, hyperlipidemia, coronary artery disease, cerebrovascular accident who was admitted with lethargy and hypotension, status post hypercarbic respiratory failure, status post intubation and extubation. 1. End-stage renal disease. Continue hemodialysis three times a week Sunday, , and Sunday. 2. Coronary artery disease, asymptomatic at this time. 3. Status post hypercarbic respiratory failure. 4. Chronic obstructive pulmonary disease. 5. Status post sepsis, Staph coagulation negative sepsis. 6. Right lung pneumonia versus congestive heart failure. Continue IV antibiotics as per ID recommendations, and we will schedule for hemodialysis in a.m., and we will try to ultrafiltrate as much as the patient can tolerate, and repeat chest x-ray after dialysis, and we will follow with you. Thank you for allowing me to participate in your patient's care. Martin Ortiz MD
[2018-03-26] MEDS: Albuterol-Ipratrop 3 mg / 0.5 (3 ml) UD INH SCH ×3 (01:43→13:37)
[2018-03-26 06:10] LABS: HEMOGLOBIN 10.6 g/dL (12.0-18.0); MEAN CELL VOLUME 101.4 fL (80.0-94.0); MEAN CORPUSCULAR HEMOGLOBIN 32.5 pg (27.0-31.0); MEAN CORPUSCULAR HGB CONC 32.1 g/dL (33.0-37.0); MEAN PLATELET VOLUME 9.1 fL (7.2-11.7); RBC 3.24 Mil/uL (4.40-5.90); RED CELL DISTRIBUTION WIDTH 18.5 % (11.5-14.5); WHITE BLOOD COUNT 5.3 K/uL (4.8-10.8)
[2018-03-26 06:30] LABS: ALB/GLOB RATIO 1.3 (1.0-2.1); ALBUMIN 3.4 g/dL (3.5-5.0); CALCIUM 9.1 mg/dl (8.6-10.4)
--- NOTE | 2018-03-26 06:51 | PN ---
Copied To: Martin Ortiz MD Attending MD: Martin Ortiz MD DATE: 03/24/2018 FOLLOWUP RENAL CONSULTATION LOCATION: The patient is located in ICU bed 16. REASON FOR FOLLOWUP: End-stage renal disease, continuation of hemodialysis. SUBJECTIVE: The patient is a 67-year-old elderly Greek male with a past medical history significant for longstanding hypertension, diabetes, coronary artery disease, status post CABG and CVA with left-sided weakness, COPD, asthma, multiple admissions with respiratory failure who was admitted at this time with severe lethargy and hypotension. Now, blood pressure is under control. The patient is not in acute distress, status post extubation on Sunday post dialysis. The patient is not in acute distress. Denies any headache or dizziness. Denies any chest pain or palpitation. PHYSICAL EXAMINATION: VITAL SIGNS: As follows: Blood pressure 166/31, pulse 106, respirations about 18, and temperature this morning is 98.2. Height 5 feet 5 inches, and weight is 186 pounds. GENERAL: The patient is a 67-year-old elderly Greek male, well built, well nourished, not in distress. HEENT: Pupils are normal and reactive to light and accommodation. Conjunctivae pink. Sclerae nonicteric. Tongue is moist and trachea is midline. LUNGS: Symmetric on both sides. Bilateral breath sounds present. Clear to auscultation. CARDIOVASCULAR SYSTEM: [place] at the fifth intercostal space, midclavicular line. S1, S2 audible. No murmur or gallop. ABDOMEN: Soft, tympanitic. No guarding. No rigidity. No hepatosplenomegaly. CENTRAL NERVOUS SYSTEM: The patient is alert, awake, oriented x3. Sensory system is grossly within normal limits. Motor system, left-sided weakness due to old CVA. EXTREMITIES: No cyanosis, no clubbing, no edema. CURRENT MEDICATIONS: Include as follows: Aspirin 81 mg p.o. daily, DuoNeb inhaler, Procrit 4000 units three times a week, Protonix 40 mg IV daily, tigecycline 50 mg IV every 12 hours, Tylenol, and Zemplar 2 mcg three times a week. MICROBIOLOGY: Blood culture x1 as of 03/19/2018, identified as Staph coag negative. MRSA screening was negative as of 03/19/2018. Sputum cultures for normal danae. Urine culture was negative. Blood culture x2, repeat one as of 03/21/2018 negative day three x2. LABORATORY DATA: Initial laboratory data include as follows as of 03/24/2018: WBC 5.3, hemoglobin 10.1, hematocrit is 32.1, platelets are 86. Sodium 142, potassium 6.1, chloride 101, CO2 of 28, BUN 31, creatinine 3, glucose 95, calcium 6.3. Total bili 0.3, AST 27, ALT 39, alkaline phosphatase 91, total protein 6, albumin is 3.3. His repeat potassium is 4.2 this evening, sodium 141, chloride 100, CO2 of 29, BUN 36, creatinine 3.8, glucose 123, calcium is 9, and phosphorus is 0.6. AST 28, ALT 42, alkaline phosphatase 95, total protein 5.6, and albumin 3.1. ASSESSMENT AND PLAN: In summary, the patient is a 67-year-old elderly Greek male with hypertension, diabetes, coronary artery disease, status post coronary artery bypass graft, cerebrovascular accident with left-sided weakness, chronic obstructive pulmonary disease, asthma, congestive heart failure, multiple admissions with respiratory failure who was admitted with lethargy and hypotension, status post hypercarbic acute respiratory failure and is not responding to bilevel positive airway pressure, and subsequently the patient was intubated and admitted to intensive care unit, status post extubation. 1. End-stage renal disease. Continue hemodialysis three times a week, Sunday, and Sunday. The patient may need extra hemodialysis next week Sunday. We will consider an extra hemodialysis on Sunday. We will try to ultrafiltrate as much as the patient can tolerate. 2. Hypertension. Continue current medication and restrict fluids to 1 liter per day and also low sodium, low potassium diet. 3. Status post Kayexalate this morning for hyperkalemia of 6.1. I agree intensive care unit team. We will follow with you. Thank you for allowing me to participate in your patient's care. Martin Ortiz MD
--- NOTE | 2018-03-26 06:59 | PN ---
Copied To: Carlos Andrews DO Attending MD: Carlos Andrews DO DATE: 03/26/2018 SUBJECTIVE: He is resting comfortably in bed. He is doing quite well. He is going for dialysis today. He is on aspirin DuoNeb, Procrit, Protonix, Tygacil, Tylenol, Ultram, and Zemplar. PHYSICAL EXAMINATION: VITAL SIGNS: Temperature 98.3, pulse 88, blood pressure 135/36, respiratory rate 12 , 100% O2 saturation on 4 L. HEENT: Head is atraumatic and normocephalic. HEART: Regular rate. LUNGS: Decreased breath sounds, but clear. ABDOMEN: Soft, obese. EXTREMITIES: No edema. He has gone for dialysis today. NEUROLOGIC: He is alert back to [facility]. LABORATORY DATA: His sodium is 142, potassium 4.5, BUN 40, creatinine 4.3, on dialysis. Sugar is 94, calcium is 9.1, total bilirubin is 0.8, AST is 21, ALT is 41, alk phos is 104, total protein is 6. White count 4.5, hemoglobin is 10.2, hematocrit is 33.1, platelets are 100. ASSESSMENT AND PLAN: He is doing well quite well. He does have coagulase-negative Staph in the blood. I am waiting for instructional notes from Infectious Disease and Pulmonary and then [facility] can [facility], I will do that when I get the okay from the specialist. He has some kind of combination of atelectasis infiltrate and effusion in the lungs, but clinically, he is definitely improving. Continue with aggressive treatment and care and when Infectious Disease or Pulmonary says, I could discharge him back to [facility], I will on how much antibiotics to be needed anymore and how many days. He has urosepsis, respiratory failure, change in mentation. He has definitely improved. Continue aggressive treatment and care as per specialist in the intensive care unit. Carlos Andrews DO [facility]
[2018-03-26] MEDS: Tramadol 25 mg PO PRN (08:09)
[2018-03-26] MEDS: Lidocaine/Prilocaine 2.5%-2.5% Cream (5 gm) TOP SCH ×2 (08:56→10:21)
--- NOTE | 2018-03-26 08:56 | PN ---
Copied To: Sergo Holbrook MD Attending MD: Sergo Holbrook MD DATE: 03/25/2018SUBJECTIVE: Patient is feeling a lot better. 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 Still remains with triple lumen . PHYSICAL EXAMINATION: VITAL SIGNS: T-max is 98.3, pulse 80, blood pressure is 135/36, respirations are 12. HEENT: . LUNGS: Clear. Decreased breath sounds on both lungs. No crackles or rales present. HEART: S1 and S2 regular. ABDOMEN: Soft and nontender. No guarding. No rigidity present. EXTREMITIES: Have no edema. ASSESSMENT AND PLAN: Patient for hemodialysis tomorrow and he is being on antibiotics when he came and his last chest x-ray showed he had respiratory failure and has improved since and his last chest x-ray was done yesterday, which showed mild pulmonary congestion, patchy atelectasis versus infiltrative changes throughout right lung and right-sided effusion, opacity in left lung - likely represent some combination of atelectasis or infiltrate and effusion. So, he is clinically improving. I am planning to discontinue antibiotics in 1 to 2 days and then he can go back to his rehab or his place where he was living. Sergo Holbrook MD
[2018-03-26] MEDS: EPOETIN ALFA 4,000 UNIT/ML ML Dialysis IV SCH (09:42)
[2018-03-26] MEDS: Paricalcitol 2 mcg/ml Inj IV SCH (09:43)
--- NOTE | 2018-03-26 10:06 | CP.PCM.PN ---
Subjective - Date & Time of Evaluation Date of Evaluation: 03/26/18 Time of Evaluation: 10:05 - Subjective Subjective: pt is seen and examined during hd, follow up consult is dictated #[id number] uf goal is 3 .3 lit Objective - Vital Signs/Intake and Output Vital Signs (last 24 hours): Temp Pulse Resp BP Pulse Ox 97.5 F L 92 H 14 162/52 H 100 03/26/18 08:00 03/26/18 08:00 03/26/18 08:00 03/26/18 08:00 03/25/18 16:11 Intake and Output: 03/26/18 03/26/18 06:59 18:59 Intake Total 120 Balance 120 - Medications Medications: Current Medications Acetaminophen (Tylenol 650mg/20.3ml Solution Ud) 650 mg PO Q6 PRN PRN Reason: Headache Last Admin: 03/25/18 10:16 Dose: 650 mg Albuterol/Ipratropium (Duoneb 3 Mg/0.5 Mg (3 Ml) Ud) 3 ml INH RQ6 [facility] Last Admin: 03/26/18 07:10 Dose: 3 ml Aspirin (Aspirin Chewable) 81 mg PO DAILY [facility] Last Admin: 03/26/18 09:01 Dose: 81 mg Epoetin Mario (Procrit) 4,000 unit IV TTS [facility] Last Admin: 03/26/18 09:42 Dose: 4,000 unit Tigecycline 50 mg/ Sodium (Chloride) 100 mls @ 100 mls/hr IVPB Q12H [facility] PRN Reason: Protocol Last Admin: 03/25/18 22:15 Dose: 100 mls/hr Lidocaine/Prilocaine (Emla) 1 gm TOP TTS [facility] Last Admin: 03/26/18 08:56 Dose: 1 gm Pantoprazole Sodium (Protonix Inj) 40 mg IVP DAILY [facility] Last Admin: 03/26/18 09:01 Dose: 40 mg Paricalcitol (Zemplar) 2 mcg IV TTS [facility] Last Admin: 03/26/18 09:43 Dose: 2 mcg Tramadol HCl (Ultram) 25 mg PO TID PRN PRN Reason: Pain, moderate (4-7) Last Admin: 03/26/18 08:09 Dose: 25 mg - Labs Labs: 03/26/18 05:59 03/26/18 05:59 PT 10.7 SECONDS (9.7-12.2) 03/19/18 14:18 INR 1.0 03/19/18 14:18 APTT 39 SECONDS (21-34) H 03/19/18 14:18
[2018-03-26 10:19] VITALS: PULSE 80
[2018-03-26] MEDS ORDERED: guaiFENesin DM 100 mg-10 mg/5 ml UD PO PRN (11:12)
--- NOTE | 2018-03-26 13:34 | CP.PCM.PN ---
Subjective - Date & Time of Evaluation Date of Evaluation: 03/26/18 Time of Evaluation: 13:00 - Subjective Subjective: Patient seen today, comfortable NAD, c/o occasional cough a febrile HD completed today and tolerated well vss- stable Objective - Vital Signs/Intake and Output Vital Signs (last 24 hours): Temp Pulse Resp BP Pulse Ox 98.1 F 80 16 150/54 L 97 03/26/18 12:35 03/26/18 12:35 03/26/18 12:35 03/26/18 12:35 03/26/18 12:35 Intake and Output: 03/26/18 03/26/18 06:59 18:59 Intake Total 120 Balance 120 - Medications Medications: Current Medications Acetaminophen (Tylenol 650mg/20.3ml Solution Ud) 650 mg PO Q6 PRN PRN Reason: Headache Last Admin: 03/25/18 10:16 Dose: 650 mg Albuterol/Ipratropium (Duoneb 3 Mg/0.5 Mg (3 Ml) Ud) 3 ml INH RQ6 [facility] Last Admin: 03/26/18 07:10 Dose: 3 ml Aspirin (Aspirin Chewable) 81 mg PO DAILY [facility] Last Admin: 03/26/18 09:01 Dose: 81 mg Epoetin Mario (Procrit) 4,000 unit IV TTS BE[facility] Last Admin: 03/26/18 09:42 Dose: 4,000 unit Guaifenesin/Dextromethorphan (Robitussin Dm) 5 ml PO Q4H PRN PRN Reason: Cough Last Admin: 03/26/18 11:28 Dose: 5 ml Lidocaine/Prilocaine (Emla) 1 gm TOP TTS [facility] Last Admin: 03/26/18 10:21 Dose: Not Given Moxifloxacin HCl (Avelox) 400 mg PO DAILY [facility] PRN Reason: Protocol Stop: 03/30/18 10:01 Last Admin: 03/26/18 12:49 Dose: 400 mg Pantoprazole Sodium (Protonix Inj) 40 mg IVP DAILY [facility] Last Admin: 03/26/18 09:01 Dose: 40 mg Paricalcitol (Zemplar) 2 mcg IV TTS [facility] Last Admin: 03/26/18 09:43 Dose: 2 mcg Tramadol HCl (Ultram) 25 mg PO TID PRN PRN Reason: Pain, moderate (4-7) Last Admin: 03/26/18 08:09 Dose: 25 mg - Labs Labs: 03/26/18 05:59 03/26/18 05:59 PT 10.7 SECONDS (9.7-12.2) 03/19/18 14:18 INR 1.0 03/19/18 14:18 APTT 39 SECONDS (21-34) H 03/19/18 14:18 Assessment and Plan - Assessment and Plan (Free Text) Assessment: A/P 67 y/o male with PMHx of CAD, DM, ESRD (on hemodialysis), CVA, and s/p pacemaker , admitted with altered mental status blood culture- first- + coag staph- one bottle repeat blood culture and urine culture- negative sputum culture - negative for MRSA As per Dr. Frausto patient can be discharge back to [place] As per Dr. Higgins, tigacil can be d/c and patient can be discharged back to [facility] with 5 days of Avelox po D/w Dr. Mckee, cleared for discharge back to [facility] today
[2018-03-26] MEDS: Acetaminophen 650mg/20.3ml solution UD PO PRN (15:21)
--- NOTE | 2018-03-26 16:34 | CP.PCM.PN ---
Subjective - Date & Time of Evaluation Date of Evaluation: 03/26/18 Time of Evaluation: 16:32 - Subjective Subjective: Podiatry Consult Note for Dr. East: 67 yo male patient, with PMHx of CVA, CHF, HTN, ESRD, seen and evaluated at bedside for elongated, dystrophic nails. Patient is resting comfortably in bed and in NAD. He states that his nails are elongated and painful and he cannot cut them himself due to his current state. Patient is resting in bed with multipodus boots. Patient denies N/V/F. PMHx: CVA, CHF, HTN, ESRD, ALL: iodine, PCN, clopidogrel Objective - Vital Signs/Intake and Output Vital Signs (last 24 hours): Temp Pulse Resp BP Pulse Ox 98.1 F 80 16 150/54 L 97 03/26/18 12:35 03/26/18 12:35 03/26/18 12:35 03/26/18 12:35 03/26/18 12:35 Intake and Output: 03/26/18 03/26/18 06:59 18:59 Intake Total 120 Balance 120 - Medications Medications: Current Medications Acetaminophen (Tylenol 650mg/20.3ml Solution Ud) 650 mg PO Q6 PRN PRN Reason: Headache Last Admin: 03/26/18 15:21 Dose: 650 mg Aspirin (Aspirin Chewable) 81 mg PO DAILY [facility] Last Admin: 03/26/18 09:01 Dose: 81 mg Epoetin Mario (Procrit) 4,000 unit IV TTS [facility] Last Admin: 03/26/18 09:42 Dose: 4,000 unit Guaifenesin/Dextromethorphan (Robitussin Dm) 5 ml PO Q4H PRN PRN Reason: Cough Last Admin: 03/26/18 11:28 Dose: 5 ml Lidocaine/Prilocaine (Emla) 1 gm TOP TTS [facility] Last Admin: 03/26/18 10:21 Dose: Not Given Moxifloxacin HCl (Avelox) 400 mg PO DAILY [facility] PRN Reason: Protocol Stop: 03/30/18 10:01 Last Admin: 03/26/18 12:49 Dose: 400 mg Pantoprazole Sodium (Protonix Inj) 40 mg IVP DAILY [facility] Last Admin: 03/26/18 09:01 Dose: 40 mg Paricalcitol (Zemplar) 2 mcg IV TTS [facility] Last Admin: 03/26/18 09:43 Dose: 2 mcg Tramadol HCl (Ultram) 25 mg PO TID PRN PRN Reason: Pain, moderate (4-7) Last Admin: 03/26/18 08:09 Dose: 25 mg - Labs Labs: 03/26/18 05:59 03/26/18 05:59 PT 10.7 SECONDS (9.7-12.2) 03/19/18 14:18 INR 1.0 03/19/18 14:18 APTT 39 SECONDS (21-34) H 03/19/18 14:18 - Constitutional Appears: Well, Non-toxic, No Acute Distress - Head Exam Head Exam: ATRAUMATIC, NORMOCEPHALIC - Extremities Exam Additional comments: Vascular: DP/PT 1/4, CFT >3 seconds to all digits, TG warm to warm bilaterally, +2 pitting edema Ortho: No pain upon palpation of calf compression, no pain upon palpation of left plantar heel, no gross deformities noted Neuro: Gross and protective sensation unable to assess due to current state Derm: No open lesions bilaterally, no clinical signs of infection, no streaking , no drainage. Elongated, dystrophic nails x10. - Neurological Exam Neurological Exam: Alert, Awake, Oriented x3 - Psychiatric Exam Psychiatric exam: Normal Affect, Normal Mood Assessment and Plan - Assessment and Plan (Free Text) Assessment: 67 yo male patient, with PMHx of CVA, CHF, HTN, ESRD, seen and evaluated for elongated, dystrophic nails Plan: Patient seen and evaluated with all questions and concerns addressed Patient discussed in detail with Dr. East Nails debrided x10 with a large nail nipper without incident Multipodus boots to be worn at all times while in bed Podiatry to sign off at this time Thank you for the consult and allowing us to partake in the care of this patient.
--- NOTE | 2018-03-26 17:31 | CP.PCM.PN ---
Objective - Vital Signs/Intake and Output Vital Signs (last 24 hours): Temp Pulse Resp BP Pulse Ox 98.1 F 80 16 150/54 L 97 03/26/18 12:35 03/26/18 12:35 03/26/18 12:35 03/26/18 12:35 03/26/18 12:35 Intake and Output: 03/26/18 03/26/18 06:59 18:59 Intake Total 120 Balance 120 - Medications Medications: Current Medications Acetaminophen (Tylenol 650mg/20.3ml Solution Ud) 650 mg PO Q6 PRN PRN Reason: Headache Last Admin: 03/26/18 15:21 Dose: 650 mg Aspirin (Aspirin Chewable) 81 mg PO DAILY [facility] Last Admin: 03/26/18 09:01 Dose: 81 mg Epoetin Mario (Procrit) 4,000 unit IV TTS [facility] Last Admin: 03/26/18 09:42 Dose: 4,000 unit Guaifenesin/Dextromethorphan (Robitussin Dm) 5 ml PO Q4H PRN PRN Reason: Cough Last Admin: 03/26/18 11:28 Dose: 5 ml Lidocaine/Prilocaine (Emla) 1 gm TOP TTS [facility] Last Admin: 03/26/18 10:21 Dose: Not Given Moxifloxacin HCl (Avelox) 400 mg PO DAILY [facility] PRN Reason: Protocol Stop: 03/30/18 10:01 Last Admin: 03/26/18 12:49 Dose: 400 mg Pantoprazole Sodium (Protonix Inj) 40 mg IVP DAILY [facility] Last Admin: 03/26/18 09:01 Dose: 40 mg Paricalcitol (Zemplar) 2 mcg IV TTS [facility] Last Admin: 03/26/18 09:43 Dose: 2 mcg Tramadol HCl (Ultram) 25 mg PO TID PRN PRN Reason: Pain, moderate (4-7) Last Admin: 03/26/18 08:09 Dose: 25 mg - Labs Labs: 03/26/18 05:59 03/26/18 05:59 PT 10.7 SECONDS (9.7-12.2) 03/19/18 14:18 INR 1.0 03/19/18 14:18 APTT 39 SECONDS (21-34) H 03/19/18 14:18 Assessment and Plan (1) Hypercapnic respiratory failure Status: Acute (2) CHF (congestive heart failure), NYHA class III Status: Acute (3) ESRD (end stage renal disease) on dialysis Status: Chronic
--- NOTE | 2018-03-26 17:39 | PCM.HF ---
Heart Failure Core Measure - Heart Failure Ejection Fraction: 40 % or Greater PRO Inhibitor Prescribed: No Contraindication/Reason for not providing: ESRD Beta-Ozzy Prescribed: None Contraindication/Reason for not providing: PT ON MIDODRINE FOR BP SUPPORT Angiotensin II Receptor Ozzy Prescribed: No Contraindication/Reason for not providing: ESRD AnticoagulationTherapy for Atrial Fibrillation/Atrialflutter: No Contraindication/Reason for not providing: NO HX OF A FIB Aldosterone Antagonist Prescribed: No Contraindication/Reason for not providing: ESRD Contraindication/Reason for not providing: EF>45 Implantable Cardioverter Defibrillator Therapy: No Contraindication/Reason for not providing: EF.45 Cardiac Resynchronization Therapy Prescribed: No Contraindication/Reason for not providing: EF>45 - Follow up Will be discharged to: Assisted Facility ([facility]) Follow Up Date (must be within 7 days from discharge): 03/29/18 Follow Up Time: 09:00
[2018-03-26 18:17] VITALS: BP 142/33; RESP 13; TEMP 97.7; O2SAT 100
--- NOTE | 2018-03-27 00:22 | PN ---
Copied To: Martin Ortiz MD Attending MD: Martin Ortiz MD DATE: 03/26/2018 FOLLOWUP RENAL CONSULTATION LOCATION: The patient is located in ICU, bed 16. REQUESTED BY: Carlos Andrews DO REASON FOR RENAL CONSULTATION: End-stage renal disease, continuation of hemodialysis. SUBJECTIVE: Mr. Gonzales is a 67-year-old elderly Russian male with a past medical history significant for longstanding hypertension, diabetes, hyperlipidemia, coronary artery disease, status post CABG, CVA with left-sided weakness, COPD, asthma, and CHF who was admitted with lethargy and hypotension, found to have hypercarbic respiratory failure, status post intubation and extubation. The patient is being dialyzed. UF goal is about 3.3 liters today. The patient is hemodynamically stable. The patient is not in distress, resting comfortably. No complaints. PHYSICAL EXAMINATION: VITAL SIGNS: As follows: Blood pressure 165/50, pulse 80, respirations 16, and temperature 98.1. GENERAL: Mr. Gonzales is a 67-year-old elderly male, moderately built, moderately nourished, not in acute distress. HEENT: Pupils are normal and reactive to light and accommodation. Conjunctivae pink. Sclerae anicteric. Tongue is moist and trachea is midline. LUNGS: Symmetric on both sides. Bilateral breath sounds present. Right basal crackles present. CARDIOVASCULAR SYSTEM: [place] at the fifth intercostal space, midclavicular line. S1, S2 audible. No murmur or gallop. ABDOMEN: Normal in appearance, soft, tympanitic. No guarding. No rigidity. No hepatosplenomegaly. CENTRAL NERVOUS SYSTEM: The patient is alert, awake, oriented x3. Cranial nerves II-XII grossly intact. Sensory system is within normal limits. Motor system is normal on the right side. The patient has left-sided weakness from the previous CVA. EXTREMITIES: No cyanosis, no clubbing, no edema. CURRENT MEDICATIONS: Include aspirin 81 mg daily, moxifloxacin 400 mg daily, DuoNeb inhaler, EMLA cream topical, Procrit 4000 units three times a week on Sunday, and Sunday, Protonix 40 mg IV daily, tigecycline discontinued today, tramadol and Zemplar 2 mcg three times a week. LABORATORY DATA: Include as follows as of 03/26/2018: WBC 5.3, hemoglobin 10.6, hematocrit is 32.9, platelets 131. Sodium 141, potassium 5.1, chloride 99, CO2 of 28, BUN 52, creatinine is 5, glucose is 92, and calcium 9.1. Total bili 0.7, AST 16, ALT 41, alkaline phosphatase 113, total protein 5.9, albumin is 3.4. Blood culture x1 as of 03/19/2018, Staphylococcus coagulase negative, one out of the two sets and repeat blood culture as of 03/21/2018, negative day-5 x2. ASSESSMENT AND PLAN: In summary, Mr. Conor Gonzales is a 67-year-old elderly Russian male with a history of longstanding hypertension, diabetes, hyperlipidemia, coronary artery disease, status post coronary artery bypass graft, cerebrovascular accident with left-sided weakness who was admitted with lethargy and hypotension and hypercarbic respiratory failure, status post intubation and extubation and right pleural effusion with questionable pneumonia. 1. End-stage renal disease. Continue hemodialysis three times a week on Sunday, and Sunday. We will try to ultrafiltrate as much as the patient can tolerate and had ultrafiltration about 3 liters today and tolerated very well. 2. Hypertension. 3. Chronic obstructive pulmonary disease. 4. Status post hypercarbic respiratory failure. Continue antibiotics as per Infectious Disease recommendations. Thank you for allowing me to participate in your patient's care. Martin Ortiz MD
--- NOTE | 2018-03-29 08:45 | DS ---
SUBJECTIVE: He was in the [facility]. He had multiple issues with him always in his stay. He is being seen by Renal, orthotic aide, Infectious Disease. He did have coagulase-negative Staph in the blood infection. He had atelectasis, infiltrates, effusions in the lungs. He had bad urosepsis and respiratory failure. He was intubated and extubated, change in mentation. Finally well enough that we could change him to [facility] where he lives. Continue antibiotics there. His labs were good. His physical exam is good. Vital signs are good. PHYSICAL EXAMINATION: VITAL SIGNS: He has 98 temperature, 80 pulse, 130/86 blood pressure, respiratory rate is 12, and 100% O2 sat. HEENT: Head is atraumatic and normocephalic. HEART: Regular rate. LUNGS: Decreased breath sounds, but clear. ABDOMEN: Soft and nontender. Positive bowel sounds. EXTREMITIES: No edema. GENERAL: He goes for dialysis. He is alert and oriented x3. He will go back to [facility] where he lives. Continue with medicines there. I will see him there in 24 hours. Carlos Andrews DO
== END 2018-03-26 18:14 | disposition home or self-care (01) | DRG 871 ==
LOC: C.ER 12:59 → C.9E 14:59 → C.9I 15:39
PROVIDERS: ADMIT Family Medicine; ATTEND Family Medicine
PROC: 0BH17EZ Insertion of Endotracheal Airway into Trachea, Via Natural or Artificial Opening (ICD-10-PCS; principal; 2018-03-19)
PROC: 5A09357 Assistance with Respiratory Ventilation, Less than 24 Consecutive Hours, Continuous Positive Airway Pressure (ICD-10-PCS; 2018-03-19)
PROC: 5A1D70Z Performance of Urinary Filtration, Intermittent, Less than 6 Hours Per Day (ICD-10-PCS; 2018-03-19)
PROC: 05HM33Z Insertion of Infusion Device into Right Internal Jugular Vein, Percutaneous Approach (ICD-10-PCS; 2018-03-19)
PROC: 5A1945Z Respiratory Ventilation, 24-96 Consecutive Hours (ICD-10-PCS; 2018-03-19)
PROC: 3E0G76Z Introduction of Nutritional Substance into Upper GI, Via Natural or Artificial Opening (ICD-10-PCS; 2018-03-20)
PROC: 5A1D70Z Performance of Urinary Filtration, Intermittent, Less than 6 Hours Per Day (ICD-10-PCS; 2018-03-21)
PROC: 5A1D70Z Performance of Urinary Filtration, Intermittent, Less than 6 Hours Per Day (ICD-10-PCS; 2018-03-23)
PROC: 5A1D70Z Performance of Urinary Filtration, Intermittent, Less than 6 Hours Per Day (ICD-10-PCS; 2018-03-26)
DX: A41.01 Sepsis due to Methicillin susceptible Staphylococcus aureus (principal); J96.02 Acute respiratory failure with hypercapnia; J18.9 Pneumonia, unspecified organism; N39.0 Urinary tract infection, site not specified; N18.6 End stage renal disease; G93.41 Metabolic encephalopathy; J96.01 Acute respiratory failure with hypoxia; E87.2 Acidosis; I13.2 Hypertensive heart and chronic kidney disease with heart failure and with stage 5 chronic kidney disease, or end stage renal disease; J44.0 Chronic obstructive pulmonary disease with (acute) lower respiratory infection; J98.11 Atelectasis; I69.354 Hemiplegia and hemiparesis following cerebral infarction affecting left non-dominant side; R65.20 Severe sepsis without septic shock; E11.22 Type 2 diabetes mellitus with diabetic chronic kidney disease; I50.9 Heart failure, unspecified; I25.10 Atherosclerotic heart disease of native coronary artery without angina pectoris; D64.9 Anemia, unspecified; L89.159 Pressure ulcer of sacral region, unspecified stage; G47.30 Sleep apnea, unspecified; E78.5 Hyperlipidemia, unspecified; E78.00 Pure hypercholesterolemia, unspecified; F32.9 Major depressive disorder, single episode, unspecified; Z79.82 Long term (current) use of aspirin; Z91.19 Patient's noncompliance with other medical treatment and regimen; Z95.0 Presence of cardiac pacemaker; Z95.1 Presence of aortocoronary bypass graft; Z99.2 Dependence on renal dialysis; Z91.81 History of falling

== ENCOUNTER 2018-04-05 03:20 | Emergency (ER) | payer MEDICARE, MEDICAID ==
[2018-04-05 03:21] VITALS: BMI 37.2
[2018-04-05] MEDS ORDERED: Absorbable Gelatin Sponge Size 12-7 ONE ×2 (03:36→04:07)
[2018-04-05] MEDS ORDERED: Absorbable Gelatin Sponge Size 12-7 TOP STA ×2 (03:42→04:04)
[2018-04-05 03:46] VITALS: RESP 20; O2SAT 100
--- NOTE | 2018-04-05 03:49 | C.PDOC ---
History Of Present Illness 67 y/o male patient presents to the ED for evaluation of bleeding to the left arm AV shunt since yesterday. He reports the bleeding began during dialysis. The patient offers no medical complaints at this time. Time Seen by Provider: 04/05/18 03:49 Chief Complaint (Nursing): Abnormal Skin Integrity History Per: Patient History/Exam Limitations: no limitations Onset/Duration Of Symptoms: Days Current Symptoms Are (Timing): Still Present Recent travel outside of the [place]: No Additional History Per: EMS Past Medical History Reviewed: Historical Data, Nursing Documentation, Vital Signs Vital Signs: Last Vital Signs Temp 98.7 F 04/05/18 03:33 Pulse 83 04/05/18 03:33 Resp 20 04/05/18 03:33 BP 143/47 L 04/05/18 03:33 Pulse Ox 100 04/05/18 04:16 - Medical History PMH: Anemia, Asthma, CHF, COPD, CVA (affecting left side), Depression ('MAJOR DEPRESSIVE DISORDER,SINGLE EPISODE,UNSPECIFIED"), HTN, Hypercholesterolemia, Hyperlipidemia, Peripheral Edema, End Stage Renal Disease (on hemodialysis), Chronic Kidney Disease, Sleep Apnea Surgical History: CABG, Endoscopy, Pacemaker - [facility] (03/19/18) ASSISTANCE WITH RESPIRATORY VENTILATION, <24 HRS, CPAP (03/19/18) ASSISTANCE WITH RESPIRATORY VENTILATION, >96 HRS, CPAP (03/05/18) DIALYSIS ARTERIOVENOSTOM (10/07/14) EXCISION OF DUODENUM, ENDO (11/10/17) EXCISION OF SIGMOID COLON, ENDO, DIAGN (09/26/16) FLUOROSCOPY OF L INT MAMM GRAFT USING L OSM CONTRAST (03/05/18) FLUOROSCOPY OF LEFT HEART USING LOW OSMOLAR CONTRAST (03/05/18) FLUOROSCOPY OF MULT COR ART USING L OSM CONTRAST (03/05/18) INCIS W REM OF FORIEGN BODY OR DEV FROM SKIN & SUBCUT TISSUE (12/23/14) INSERT INFUSION DEV IN R INT JUGULAR VEIN, PERC (03/19/18) INSERT PACE. DUAL MARGIE IN CHEST SUBCU/FASCIA, OPEN (11/10/17) INSERTION OF ENDOTRACHEAL AIRWAY INTO TRACHEA, VIA OPENING (03/19/18) INSERTION OF PACEMAKER LEAD INTO R VENTRICLE, PERC APPROACH (11/10/17) INSERTION OF PACEMAKER LEAD INTO RIGHT ATRIUM, PERC APPROACH (11/10/17) INTRODUCTION OF NUTRITIONAL INTO UP GI, VIA OPENING (03/19/18) MEASURE OF CARDIAC SAMPL & PRESSURE, L HEART, PERC APPROACH (03/05/18) MONITORING OF VENOUS PRESSURE, CENTRAL, PERC APPROACH (11/10/17) PERFORMANCE OF URINARY FILTRATION, MULTIPLE (04/11/17) RESPIRATORY VENTILATION, 24-96 CONSECUTIVE HOURS (03/19/18) RESPIRATORY VENTILATION, GREATER THAN 96 CONSECUTIVE HOURS (11/24/17) RESPIRATORY VENTILATION, LESS THAN 24 CONSECUTIVE HOURS (11/10/17) Family History: States: Unknown Family Hx - Social History Hx Alcohol Use: No Hx Substance Use: No - Immunization History Hx Influenza Vaccination: No (refuses) Hx Pneumococcal Vaccination: No (refuses) Review Of Systems Except As Marked, All Systems Reviewed And Found Negative. Skin: Positive for: Other (bleeding to the left arm AV shunt) Physical Exam - Physical Exam Appears: Non-toxic, No Acute Distress Skin: Normal Color, Warm Head: Atraumatic, Normacephalic Eye(s): bilateral: PERRL, EOMI Ear(s): Bilateral: Normal Oral Mucosa: Moist Neck: Normal ROM Chest: Symmetrical Cardiovascular: Rhythm Regular, No Murmur Respiratory: No Rales, No Rhonchi, No Wheezing, Other (NARD) Gastrointestinal/Abdominal: Bowel Sounds, Soft, No Tenderness Extremity: Left: Other (s/p gel foam continuous tamponade on left arm. Probable thrill on shunt.) Neurological/Psych: Oriented x3, Normal Speech, Other (Chronic paresis to the left upper and b/l lower extremities) ED Course And Treatment O2 Sat by Pulse Oximetry: 100 (RA) Pulse Ox Interpretation: Normal Reevaluation Time: Reassessment Condition: Improved (BLEEDING RESOLVED SP GELFOAM. WOUND DRESSED, GELFOAM REAPPLIED) Medical Decision Making Medical Decision Making: Impression: 67 y/o male patient with bleeding to the left arm AV shunt since dialysis yesterday Disposition Counseled Patient/Family Regarding: Diagnosis, Need For Followup - Disposition Referrals: YOUR,PMD [Other] Disposition: HOME/ ROUTINE Disposition Time: : Condition: IMPROVED Forms: [facility] (Tanzanian), General Discharge Instructions - Clinical Impression Clinical Impression: Bleeding from shunt - PA / SCIENTIFIC INFORMATICS PROJECT LEADER / Resident Statement MD/DO has reviewed & agrees with the documentation as recorded. - Scribe Statement The provider has reviewed the documentation as recorded by the Scribe (Charity Batista)
[2018-04-05 05:11] VITALS: BP 151/58; PULSE 84; TEMP 98.1
== END 2018-04-05 05:14 | disposition home or self-care (01) ==
LOC: C.ER 03:20
DX: T82.838A Hemorrhage due to vascular prosthetic devices, implants and grafts, initial encounter (principal); Y84.9 Medical procedure, unspecified as the cause of abnormal reaction of the patient, or of later complication, without mention of misadventure at the time of the procedure